=== PATIENT | male | born 1950 | race Caucasian/White ===

== ENCOUNTER 2020-10-04 08:43 | Outpatient (CLI) | payer MEDICARE, SELFPAY ==
--- NOTE | ~2020-10-04 | MR_ITS ---
EXAMINATION: MR pelvis wo/w con DATE: 10/04/2020 10:49 INDICATION: Dorsalgia, unspecified. TECHNIQUE: Magnetic resonance imaging (MRI) of the pelvis was performed without and with 17 mL MultiH ance intravenous contrast. Sequences included sagittal PD-weighted FS FSE and T1-weighted FSE, stallings l oblique T2-weighted FS FSE, T2-weighted FSE, T1-weighted FSE, axial oblique T1-weighted FSE and T1- weighted FS FSE and T2-weighted FS FSE, and postcontrast axial oblique and sagittal T1-weighted FS FS E. COMPARISON: Lumbar spine radiographs 03/02/2018 FINDINGS: Bone alignment is normal. There is expansion of S2 segment with fatty marrow, likely benign. There is diffuse fatty replacement of the bone marrow. There is severe lumbar spondylosis. There is mild oste oarthritis of the sacroiliac joints characterized by tiny marginal osteophytes. The prostate is mildl y enlarged. IMPRESSION: 1. Mild osteoarthritis of the sacroiliac joints. No evidence of inflammatory arthropathy. 2. Severe lumbar spondylosis. Reviewed, dictated and finalized at location A. IMPRESSION: 1. Mild osteoarthritis of the sacroiliac joints. No evidence of inflammatory ar thropathy. 2. Severe lumbar spondylosis.
--- NOTE | ~2020-10-04 | MR_ITS ---
EXAMINATION: MR lumbar spine wo con DATE: 10/04/2020 10:13 INDICATION: Dorsalgia, unspecified. TECHNIQUE: Magnetic resonance imaging (MRI) of the lumbar spine was performed without intravenous con trast. Sequences included sagittal T2-weighted FSE, sagittal T2-weighted FS FSE, sagittal T1-weighted FSE, and axial T2-weighted FSE. COMPARISON: Lumbar spine radiographs 03/02/2018 FINDINGS: There is 15 degrees dextroscoliosis of thoracolumbar spine. There is mild chronic anterior wedging of T12 and L1 vertebral bodies. There is mildly decreased disc height at L3-L4 and severely d ecreased disc height at L4-L5 with endplate remodeling. The distal spinal cord signal intensity is no rmal. The conus medullaris is at L1. The following disc levels are specifically discussed: L1-L2: The disc is bulging and has an annular fissure. There is severe right and moderate left facet joint osteoarthritis. There is mild bilateral neural foraminal stenosis. There is mild central canal stenosis. L2-L3: There is a left foraminal protrusion. There is severe bilateral facet joint osteoarthritis. Th ere is mild left neural foraminal stenosis. There is no central canal stenosis. L3-L4: The disc is bulging. There is severe bilateral facet joint osteoarthritis. There is mild right and moderate left neural foraminal stenosis. There is mild central canal stenosis. L4-L5: The disc is bulging. There is severe bilateral facet joint osteoarthritis. There is moderate r ight and mild left neural foraminal stenosis. There is mild central canal stenosis. L5-S1: The disc is bulging with superimposed right subarticular zone extrusion. There is severe bilat eral facet joint osteoarthritis. There is moderate right and mild left neural foraminal stenosis. The re is mild central canal stenosis. IMPRESSION: 1. Severe lumbar spondylosis. 2. Thoracolumbar dextroscoliosis. Reviewed, dictated and finalized at location A.
== END 2020-10-04 08:44 | disposition home or self-care (01) ==
PROVIDERS: PCP Internal Medicine; Visit Provider Internal Medicine
DX: G89.29 Other chronic pain (principal); M54.9 Dorsalgia, unspecified; M25.559 Pain in unspecified hip; M47.898 Other spondylosis, sacral and sacrococcygeal region; M47.816 Spondylosis without myelopathy or radiculopathy, lumbar region; M41.85 Other forms of scoliosis, thoracolumbar region
CPT/HCPCS: 72148; 72197; A9577

== ENCOUNTER 2021-01-18 11:20 | Outpatient (CLI) | payer MEDICARE, SELFPAY ==
--- NOTE | ~2021-01-18 | XR_ITS ---
EXAMINATION: XR chest 2V DATE: 01/18/2021 11:37 INDICATION: Personal history of recurrent pneumonia. TECHNIQUE: Frontal and lateral views of the chest were obtained. COMPARISON: Chest 2 views 11/14/2018 FINDINGS: The lung volumes are normal. There are reticular opacities in the mid and lower lung zones with a basilar predominance, consistent with chronic interstitial lung disease. No pleural effusion o r pneumothorax. The heart size is normal. IMPRESSION: 1. Mildly worsened chronic interstitial lung disease. Reviewed, dictated and finalized at location A.
[2021-01-18 11:59] LABS: Hematocrit 38.7 % (42.0-52.0); Hemoglobin 13.3 g/dL (14.0-18.0); Immature Granulocyte Absolute 0.03 K/mm3 (0.00-0.031); Immature Granulocyte Percent A 0.4 % (0-0.5); Lymphocytes Absolute Auto 0.76 K/mm3 (0.9-3.2); Lymphocytes Percent Auto 11.2 % (18.3-44.2); Mean Corpuscular HGB Conc 34.4 g/dl (32-36); Mean Platelet Volume 8.2 fl (7.4-10.4); Monocytes Absolute Auto 0.9 K/mm3 (0.1-0.6); Monocytes Percent Auto 12.8 % (2.6-8.5); Neutrophils Absolute Auto 5.2 K/mm3 (1.3-6.7); Neutrophils Percent Auto 75.6 % (45.5-73.1); Platelet Count Result 266 k/mm3 (150-375); Red Blood Count 4.16 M/mm3 (4.6-6.20); Red Cell Distribution Width 11.8 % (11.5-14.5); White Blood Count 6.8 K/mm3 (4.5-10.0)
[2021-01-18 12:39] LABS: Influenza Control Positive
== END 2021-01-18 11:21 | disposition home or self-care (01) ==
PROVIDERS: PCP Internal Medicine; Visit Provider Internal Medicine
DX: R05.9 Cough, unspecified (principal); R69 Illness, unspecified; Z87.01 Personal history of pneumonia (recurrent); J84.9 Interstitial pulmonary disease, unspecified
CPT/HCPCS: 71046; 85025; 87804

== ENCOUNTER 2021-01-22 11:21 | Outpatient (CLI) | payer MEDICARE, SELFPAY ==
--- NOTE | ~2021-01-22 | XR_ITS ---
EXAMINATION: XR chest 2V DATE: 01/22/2021 11:41 INDICATION: Personal history of recurrent pneumonia TECHNIQUE: PA and lateral views of the chest are obtained. COMPARISON: 01/18/2021 FINDINGS: The lungs are free of acute opacities. Again noted are chronic reticular opacities in the m id and lower lung zones, consistent with chronic interstitial lung disease. There is no pleural effus ion or pneumothorax. The cardiomediastinal silhouette is normal. There is moderate thoracic spondylos is. IMPRESSION: 1. No acute cardiopulmonary abnormality. Reviewed, dictated and finalized at location A.
== END 2021-01-22 11:22 | disposition home or self-care (01) ==
LOC: ANHIMG 11:23
PROVIDERS: PCP Internal Medicine; Visit Provider Internal Medicine
DX: R05.9 Cough, unspecified (principal); Z87.01 Personal history of pneumonia (recurrent)
CPT/HCPCS: 71046

== ENCOUNTER 2021-03-04 12:11 | Outpatient (CLI) | payer MEDICARE, SELFPAY ==
--- NOTE | 2021-03-05 09:02 | P.PCNPFT_ITS ---
PFT Procedure Performed PFT Procedure Performed Spirometry with Pre/Post Bronchodilator Plethysmography (Lung Vol) Diffusing Cap (DLCO) Flow Vol Loop PFT Interpretation Lung volumes were measured with the body plethysmography method. Lung volumes are unremarkable. Spirometry showed diminished expiratory flow rates and a diminished FEV1 to FVC ratio of 52%, indicative of obstructive airway disease. Following administration of a bronchodilator, there was significant increase in expiratory flow rates. Lung diffusion capacity is moderately reduced at 55% predicted. The flow volume loop is consistent with obstructive airway disease. Impression: Moderate obstructive airway disease with significant response to br onchodilators on this testing. Moderately reduced lung diffusion capacity.
== END 2021-03-04 12:12 | disposition home or self-care (01) ==
PROVIDERS: PCP Internal Medicine; Visit Provider Internal Medicine
DX: R05.9 Cough, unspecified (principal); R06.02 Shortness of breath
CPT/HCPCS: 94060; 94726; 94729

== ENCOUNTER 2021-06-27 08:40 | Outpatient (CLI) | payer MEDICARE, SELFPAY ==
--- NOTE | ~2021-06-27 | CT_ITS ---
EXAMINATION: CT abdomen pelvis w con DATE: 06/27/2021 09:12 INDICATION: Left lower quadrant abdominal pain TECHNIQUE: Computed tomography (CT) of the abdomen and pelvis was performed with 100 CC Omnipaque 350 intravenous contrast. Automated exposure control and iterative reconstruction technique were employe d. Exam dose: 441.72 mGy-cm total exam DLP. COMPARISON: None. FINDINGS: There is preferentially peripheral septal soft tissue thickening in the included lower lung zones, possibly due to usual interstitial pneumonia interstitial fibrosis. No consolidation or mass density is detected in the lower lung zones. Heart size is within upper limits of normal. No pericard ial or pleural effusion. The liver, gallbladder, bile ducts, spleen, pancreas, pancreatic duct, and adrenal glands and kidneys are unremarkable. Normal caliber of the abdominal aorta. No intraperitoneal or retroperitoneal or pelvic mass lesion or adenopathy or ascites. There is diverticulosis of the sigmoid and distal descending colon with mild pericolic fat stranding along the distal descending and sigmoid colon. There is mild thickening of the lateroconal fascia. Co nsider colitis or mild diverticulitis. No abscess or intraperitoneal free air is detected. The prostate is enlarged, calcification, with moderate diffuse thickening of the urinary bladder wall . No suspicious osteolytic or osteoblastic lesions are noted. IMPRESSION: Diverticulosis of distal descending and sigmoid colon with mild pericolic fat stranding and thickening of lateroconal fascia in the left lower quadrant. Consider colitis, diverticulitis; no abscess or free air Prostate enlargement and calcifications Reviewed, dictated and finalized at Location A. Reviewed, dictated and finalized at location A. IMPRESSION: Diverticulosis of distal descending and sigmoid colon with mild pe ricolic fat stranding and thickening of lateroconal fascia in the left lower qu adrant. Consider colitis, diverticulitis; no abscess or free air Prostate enlargement and calcifications
[2021-06-27 09:08] LABS: Estimated Glomerular Filt Rate > 60
[2021-06-27 09:48] LABS: Hematocrit 34.8 % (42.0-52.0); Hemoglobin 11.8 g/dL (14.0-18.0); Immature Granulocyte Absolute 0.06 K/mm3 (0.00-0.031); Immature Granulocyte Percent A 0.9 % (0-0.5); Lymphocytes Absolute Auto 1.05 K/mm3 (0.9-3.2); Lymphocytes Percent Auto 16.4 % (18.3-44.2); Mean Corpuscular HGB Conc 33.9 g/dl (32-36); Mean Corpuscular Hemoglobin 31.3 pg (26-34); Mean Corpuscular Volume 92.3 fl (80-100); Mean Platelet Volume 8.1 fl (7.4-10.4); Monocytes Absolute Auto 0.8 K/mm3 (0.1-0.6); Neutrophils Absolute Auto 4.5 K/mm3 (1.3-6.7); Neutrophils Percent Auto 70.7 % (45.5-73.1); Platelet Count Result 291 k/mm3 (150-375); Red Blood Count 3.77 M/mm3 (4.6-6.20); Red Cell Distribution Width 11.7 % (11.5-14.5); White Blood Count 6.4 K/mm3 (4.5-10.0)
[2021-06-27 09:57] LABS: Anion Gap 3 mmol/L (8-16); Blood Urea Nitrogen 15 mg/dL (9-20); Calcium 8.2 mg/dL (8.4-10.2); Carbon Dioxide 29 mmol/L (22-30); Chloride 93 mmol/L (98-107); Estimated Glomerular Filt Rate > 60; Glucose 95 mg/dL (65-110); Sodium 125 mmol/L (137-145)
== END 2021-06-27 08:41 | disposition home or self-care (01) ==
LOC: ANHIMG 08:43
PROVIDERS: PCP Internal Medicine; Visit Provider Internal Medicine
DX: R10.32 Left lower quadrant pain (principal); R19.7 Diarrhea, unspecified; K57.30 Diverticulosis of large intestine without perforation or abscess without bleeding; N40.0 Benign prostatic hyperplasia without lower urinary tract symptoms
CPT/HCPCS: 74177; 80048; 85025; Q9967

== ENCOUNTER 2021-07-09 10:05 | Outpatient (CLI) | payer MEDICARE, SELFPAY ==
[2021-07-09 11:09] LABS: Anion Gap 4 mmol/L (8-16); Blood Urea Nitrogen 9 mg/dL (9-20); Calcium 8.5 mg/dL (8.4-10.2); Carbon Dioxide 28 mmol/L (22-30); Chloride 96 mmol/L (98-107); Estimated Glomerular Filt Rate > 60; Glucose 95 mg/dL (65-110); Potassium 4.3 mmol/L (3.4-5.0); Sodium 128 mmol/L (137-145)
== END 2021-07-09 10:06 | disposition home or self-care (01) ==
PROVIDERS: PCP Internal Medicine; Visit Provider Internal Medicine
DX: E87.1 Hypo-osmolality and hyponatremia (principal); Z79.899 Other long term (current) drug therapy
CPT/HCPCS: 36415; 80048

== ENCOUNTER 2021-07-10 10:37 | Outpatient (CLI) | payer MEDICARE, SELFPAY ==
[2021-07-10 11:10] LABS: Potassium Urine Random 39.8 meq/L; Sodium Urine Random 33 meq/L
[2021-07-13 07:36] LABS: Osmolality, Urine 311 mOsm/kg (50-1200)
[2021-07-13 16:08] LABS: Arsenic, Blood <3 mcg/L (<23); Lead, Blood 1.7 mcg/dL (<3.5); Mercury, Blood 10 mcg/L (<=10)
[2021-07-15 06:56] LABS: Chloride Rand Ur 52 mmol/L (32-290); Chloride/Creatinine Rand Ur 78 (23-275); Creatinine Random Urine 67 mg/dL (20-320)
[2021-07-22 15:15] LABS: Collection Sample Blood
== END 2021-07-10 10:38 | disposition home or self-care (01) ==
LOC: ANHLAB 10:37
PROVIDERS: PCP Internal Medicine; Visit Provider Internal Medicine
DX: E87.1 Hypo-osmolality and hyponatremia (principal); G60.9 Hereditary and idiopathic neuropathy, unspecified; Z79.899 Other long term (current) drug therapy; Z77.018 Contact with and (suspected) exposure to other hazardous metals
CPT/HCPCS: 36415; 82175; 82436; 82570; 83655; 83825; 83930; 83935; 84133; 84300

== ENCOUNTER 2021-07-22 11:05 | Outpatient (CLI) | payer MEDICARE, SELFPAY ==
--- NOTE | ~2021-07-22 | XR_ITS ---
EXAMINATION: XR chest 2V DATE: 07/22/2021 11:26 INDICATION: Other disorders of lung. TECHNIQUE: Frontal and lateral views of the chest were obtained. COMPARISON: Chest 2 views 01/22/2021, CT abdomen and pelvis 07/22/2021 FINDINGS: The lung volumes are normal. There are chronic reticular opacities in mid and lower lung zo k[place]al with a lower lung predominance. No pleural effusion or pneumothorax. The heart size is normal. IMPRESSION: 1. Stable chronic interstitial lung disease. Reviewed, dictated and finalized at location A.
--- NOTE | ~2021-07-22 | CT_ITS ---
EXAMINATION: CT abdomen pelvis w con DATE: 07/22/2021 11:38 INDICATION: Colon diverticulitis. Abdominal pain. TECHNIQUE: Computed tomography (CT) of the abdomen and pelvis was performed with 100 CC Omnipaque 350 intravenous contrast. Automated exposure control and iterative reconstruction technique were employe d. Exam dose: 496.53 mGy-cm total exam DLP. COMPARISON: 06/27/2021 CT abdomen pelvis FINDINGS: The usual interstitial pneumonia interstitial fibrosis is suggested in the included lower l homero zones. No consolidation is noted. No pleural effusion. Normal heart size. No pericardial or pleural effusion. The liver, gallbladder, bile ducts, spleen, pancreas, pancreatic duct, and adrenal glands and kidneys are unremarkable. The abdominal aorta. No intraperitoneal or retroperitoneal or pelvic mass lesion or adenopathy or asc ites. Nonspecific thickening of the wall of the stomach. Normal appendix. No bowel obstruction or intraperitoneal free air. There is thickening of the wall of the cecum and the descending and sigmoid colon with left pericolic stranding. There is no significant stenosis of the celiac or superior mesenteric and inferior mesent stacy arteries to suggest ischemic colitis. Consider infectious or inflammatory colitis. Diverticulosis of the left colon. No abscess is evident. Prostate enlargement. The urinary bladder is unremarkable. Small fat-containing umbilical hernia. Small fat-containing left inguinal hernia. There is an expansile lytic lesion of the upper body of the sacrum; consider MRI and bone scan for fu rther evaluation. At this age range, metastasis or multiple myeloma would be the foremost considerati ons. There are degenerative changes of the included lower thoracic spine and lumbar spine including modera tely severe degenerative disc disease at L4-5. IMPRESSION: Expansile lytic lesion of the upper body of the sacrum; metastasis and multiple myeloma w ould be the primary considerations in this age range. Consider l MRI and bone scan for further evalua tion Nonspecific thickening of the wall of the stomach, cecum and descending and sigmoid colon with left p ericolic stranding; consider infectious or inflammatory colitis Diverticulosis of left colon No evidence of abscess Reviewed, dictated and finalized at Location A. Reviewed, dictated and finalized at location A. IMPRESSION: Expansile lytic lesion of the upper body of the sacrum; metastasis and multiple myeloma would be the primary considerations in this age range. 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
== END 2021-07-22 11:06 | disposition home or self-care (01) ==
LOC: ANHIMG 11:06
PROVIDERS: PCP Internal Medicine; Visit Provider Internal Medicine
DX: E87.1 Hypo-osmolality and hyponatremia (principal); K57.92 Diverticulitis of intestine, part unspecified, without perforation or abscess without bleeding; J98.4 Other disorders of lung; J84.9 Interstitial pulmonary disease, unspecified; M89.9 Disorder of bone, unspecified; K57.90 Diverticulosis of intestine, part unspecified, without perforation or abscess without bleeding; R93.5 Abnormal findings on diagnostic imaging of other abdominal regions, including retroperitoneum
CPT/HCPCS: 71046; 74177; Q9967

== ENCOUNTER 2021-08-19 19:08 | Inpatient (IN) | payer MEDICARE, SELFPAY ==
[2021-08-19] VITALS (13 sets, daily range): BP systolic 98–122; BP diastolic 58–78; PULSE 83–94; RESP 14–18; TEMP 37.2–37.7; O2SAT 94–97; BMI 24.3
--- NOTE | ~2021-08-19 | CT_ITS ---
EXAMINATION: CT abdomen pelvis w con DATE: 08/19/2021 20:34 INDICATION: abd pain TECHNIQUE: Computed tomography (CT) of the abdomen and pelvis was performed with 75 mL Omnipaque 300 intravenous contrast. Automated exposure control and iterative reconstruction technique were employed . The dose-length product was 571.22 mGy-cm. COMPARISON: 07/22/2021 FINDINGS: Lower thorax: Senescent/fibrotic lower lung changes Liver: Normal. Biliary/Gallbladder: Gallbladder is normal. No bile duct dilation. Pancreas: No mass or duct dilation. Spleen: Normal. Adrenals:No mass. Kidneys: No mass, stone, or hydronephrosis. GI tract: No small or large bowel dilation. Appendix not visualized. Sigmoid diverticulosis without d iverticulitis. Water density wall thickening extending from the splenic flexure through the sigmoid c olon. Mesentery/Peritoneum: No ascites, mass, or free air. Retroperitoneum: No mass. Pelvis: Bladder wall thickening likely due to outlet obstruction from prostatomegaly. Question of silvia ateral scrotal varicoceles and right hydrocele. Soft Tissues: Small bilateral fat-containing inguinal hernias Bones: No acute osseous finding. Unchanged expansile and lytic sacral lesion centered at S2, MR gretchen acteristics in prior studies suggest benignity. IMPRESSION: Descending and sigmoid colitis, commonly attributed to infection noting that inflammatory bowel disea se and ischemia can appear similarly. Possible varicoceles or hydrocele, if there are scrotal symptom s consider ultrasound of the scrotum for further evaluation. Reviewed, dictated and finalized at location K. IMPRESSION: Descending and sigmoid colitis, commonly attributed to infection noting that in flammatory bowel disease and ischemia can appear similarly. Possible varicocele s or hydrocele, if there are scrotal symptoms consider ultrasound of the scrotu m for further evaluation.
--- NOTE | 2021-08-19 19:39 | ED.GENADULT ---
HPI - General Adult General Chief complaint: Nausea/Vomiting/Diarrhea Stated complaint: fever, nausea, headache Time Seen by Provider: 08/19/21 19:16 Source: patient Mode of arrival: ambulatory Limitations: no limitations History of Present Illness HPI narrative: Patient is a 71-year-old male complaining of fever, chills and nausea that started today. Patient states that he was having some lower abdominal discomfort, recently finished a course of antibiotics after being diagnosed with C. difficile. Prior to being diagnosed with C. difficile he was on oral Cipro and metronidazole due to diverticulitis. Patient states that he ate some sushi, tempura , prior to the above symptoms. Patient denies any chest pain, shortness of breath, cough, vomiting, or diarrhea. Related Data Home Medications Medication Instructions Recorded Confirmed fluticasone propionate 50 2 spray INTRANASAL BID g 08/21/20 07/29/21 mcg/actuation nasal spray,suspension ipratropium bromide 42 mcg (0.06 2 spray INTRANASAL QID 08/21/20 07/29/21 %) nasal spray pregabalin 150 mg capsule 450 mg PO DAILY cap 08/21/20 07/29/21 [place] NeuropathyCream TOPICAL .tid-qid PRN 06/21/21 07/29/21 azithromycin 500 mg tablet See Rx Instructions PO .COMPLEX 07/29/21 07/29/21 Allergies Allergy/AdvReac Type Severity Reaction Status Date / Time No Known Allergies Allergy Verified 08/19/21 19:34 Review of Systems Review of Systems: All systems reviewed & are unremarkable except as noted in HPI and below Constitutional: Constitutional: Denies body ache(s), Denies excessive sweating, Denies fatigue, Denies headache(s), Denies lethargy, Denies malaise, Denies weakness and Denies weight loss Eyes: Eyes: Denies blurry vision, Denies change in vision and Denies loss of vision ENT: Denies dizziness, Denies ear discharge, Denies headache(s), Denies lip swelling, Denies epistaxis, Denies nasal congestion, Denies neck pain, Denies throat swelling and Denies tongue swelling Cardiovascular: Cardiovascular: Denies chest pain, Denies chest pain at rest, Denies chest pain with activity, Denies diaphoresis, Denies rapid heart rate, Denies edema, Denies irregular heart rhythm, Denies lightheadedness, Denies palpitations, Denies dyspnea and Denies dyspnea on exertion Respiratory: Respiratory: Denies chest congestion, Denies cough, Denies hemoptysis, Denies dyspnea and Denies dyspnea on exertion Gastrointestinal: Gastrointestinal: Denies melena, Denies hematochezia, Denies diarrhea, Denies nausea, Denies vomiting and Denies hematemesis Musculoskeletal: Musculoskeletal: Denies abnormal gait, Denies deformity, Denies joint swelling, Denies limited range of motion, Denies neck pain and Denies numbness Neurologic: Denies Abnormal speech present, Denies abnormal gait, Denies confusion, Denies dizziness, Denies headache(s), Denies focal weakness, Denies loss of vision, Denies numbness, Denies Other visual disturbances, Denies Sensory deficit (Neuro) and Denies weakness Psychiatric: Psychiatric: Denies confusion, Denies depression, Denies auditory hallucinations, Denies homicidal ideation and Denies suicidal ideation Endocrine: Endocrine: Denies cold intolerance, Denies excessive sweating, Denies fatigue, Denies heat intolerance and Denies palpitations Hematologic/Lymphatic: Hematologic/Lymphatic: Denies easy bleeding and Denies easy bruising Allergic/Immunologic: Allergic/Immunologic: Denies lip swelling, Denies throat swelling and Denies tongue swelling [facility] Past Medical History Medical History (Updated 08/19/21 @ 21:36 by Mikhail Hess MD) Angular cheilitis BMI 24.0-24.9, adult BMI 25.0-25.9,adult BMI 26.0-26.9,adult Chronic back pain Chronic lung disease Colon cancer screening Cough Dextroscoliosis Diverticulitis Elevated LDL cholesterol level Encounter for Medicare annual wellness exam Encounter to establish care Exposure to heavy metals Follow up GERD (gastroesophageal
[2021-08-19] MEDS: SODIUM CHLORIDE 0.9% IV 1,000 ML 999 ML IV CONT (19:57)
[2021-08-19] MEDS: ACETAMINOPHEN 325 MG TABLET 650 MG PO (19:58)
[2021-08-19 20:04] LABS: Hematocrit 36.3 % (42.0-52.0); Hemoglobin 12.1 g/dL (14.0-18.0); Mean Corpuscular HGB Conc 33.3 g/dl (32-36); Mean Corpuscular Volume 90.1 fl (80-100); Platelet Count Result 256 k/mm3 (150-375); Red Blood Count 4.03 M/mm3 (4.6-6.20); Red Cell Distribution Width 12.8 % (11.5-14.5); White Blood Count 22.2 K/mm3 (4.5-10.0)
[2021-08-19 20:05] LABS: Add Urine Microscopic? YES; Appearance Urine Clear (Clear); Bilirubin Urine Negative (Negative); Blood Urine Negative (Negative); Color Urine Yellow (Yellow); Glucose Urine UA Negative (Negative); Ketones Urine Trace mg/dL (Negative); Leukocyte Esterase Ur Negative LEU/UL (Negative); Nitrate Urine Negative (Negative); Protein Urine Negative (Negative); Specific Grav Ur 1.015 (1.001-1.035); Urobilinogen Urine 0.2 mg/dL (<2.0); pH Urine 6.5 (5.0-9.0)
[2021-08-19 20:07] LABS: Mucus Urine Rare /lpf; RBC Urine 0-2 /hpf (0-2); WBC Urine 0-3 /hpf
[2021-08-19 20:13] LABS: Lactic Acid Reflex 0.6 mmol/L (0.7-2.0)
[2021-08-19 20:14] LABS: Alanine Aminotransferase 42 U/L (6-50); Albumin Level 3.5 g/dL (3.5-5.1); Alkaline Phosphatase 83 U/L (38-126); Anion Gap 6 mmol/L (8-16); Aspartate Amino Transferase 41 U/L (17-59); Bilirubin,Total 1.5 mg/dL (0.2-1.3); Blood Urea Nitrogen 15 mg/dL (9-20); Calcium 8.2 mg/dL (8.4-10.2); Carbon Dioxide 23 mmol/L (22-30); Chloride 96 mmol/L (98-107); Estimated CRCL calculation 93 ml/min; Estimated Glomerular Filt Rate > 60; Glucose 106 mg/dL (65-110); Potassium 4.1 mmol/L (3.4-5.0); Sodium 125 mmol/L (137-145)
--- NOTE | 2021-08-19 20:22 | PC.NURSE ---
Pt to CT via stretcher at this time.
[2021-08-19 20:28] LABS: Band Neutrophils Percent 6 % (0-6); Lymphocytes Absolute Manual 0.44 K/mm3 (1.1-4.5); Monocytes Absolute Manual 1.77 K/mm3 (0.1-0.90); Monocytes Percent Manual 8 % (3-9); Neutrophils Absolute Manual 19.98 K/mm3 (1.3-6.7); Neutrophils Percent Manual 84 % (46-73); Platelet Estimate Adequate (Adequate); Total Cells Counted 100
--- NOTE | 2021-08-19 21:38 | PM.IMHP ---
H&P: HPI History of Present Illness Date/Time: 08/19/21 21:38 Chief Complaint: Abdominal pain. Narrative: This is a 71-year-old male past medical history significant for gastroesophageal reflux disease, restless leg syndrome, COPD, peripheral neuropathy. Patient just treated in the outpatient setting for diverticulitis and C difficile colitis completed 2 courses of antibiotics patient just returned from vacationing in [place] and started feeling unwell since the day before having some abdominal discomfort and pain and chills prior to coming to the emergency room patient had a fever, patient denies any diarrhea, any bloody stools or flank in the stools, no nausea, no vomiting, pain is localized to the lower abdomen nonradiating. In emergency room patient was found to have a leukocyte count of 22,000 CT of abdomen and pelvis showed descending and sigmoid colitis. Patient has been admitted for further evaluation, management and treatment. Review of Systems Review of Systems: Abdominal pain, fever. Constitutional: Constitutional: Reports chills, Denies fatigue, Reports fever(s), Denies night sweats and Denies poor appetite Eyes: Eyes: Denies change in vision ENT: Denies dysphagia, Denies vertigo, Denies nasal congestion, Denies nasal discharge, Denies nasal obstruction and Denies odynophagia Cardiovascular: Cardiovascular: Denies chest pain, Denies pedal edema, Denies irregular heart rhythm, Denies claudication, Denies lightheadedness, Denies radiating jaw, neck or arm pain, Denies palpitations and Denies dyspnea on exertion Respiratory: Respiratory: Denies chest congestion, Denies cough, Denies excessive phlegm production and Denies dyspnea Gastrointestinal: Gastrointestinal: Reports abdominal pain, Denies dyspepsia, Denies heartburn, Denies diarrhea, Denies nausea and Denies vomiting Genitourinary: Genitourinary: Denies dysuria Musculoskeletal: Musculoskeletal: Denies arthralgias and Denies joint swelling Integumentary/Breasts: Skin/Breast: Denies rash Neurologic: Denies focal weakness and Denies Sensory deficit (Neuro) Psychiatric: Psychiatric: Reports no additional psychiatric complaints and Reports as per HPI Endocrine: Endocrine: Denies cold intolerance, Denies flushing, Denies heat intolerance, Denies polyphagia, Denies polydipsia and Denies palpitations Hematologic/Lymphatic: Hematologic/Lymphatic: Reports no additional hematologic/lymphatic complaints and Reports as per HPI Allergic/Immunologic: Allergic/Immunologic: Reports no additional allergic/immunologic complaints and Reports as per HPI [facility] Past Medical History Medical History (Updated 08/21/21 @ 05:27 by Lavinia Palencia MD) Angular cheilitis BMI 24.0-24.9, adult BMI 25.0-25.9,adult BMI 26.0-26.9,adult Chronic back pain Chronic lung disease Colon cancer screening Cough Dextroscoliosis Diverticulitis Elevated LDL cholesterol level Encounter for Medicare annual wellness exam Encounter to establish care Exposure to heavy metals Follow up GERD (gastroesophageal reflux disease) Heart murmur Herpes History of elevated PSA History of pneumonia Hyponatremia Impacted cerumen of left ear Lumbar spondylosis Nausea On usp drug therapy Restless legs syndrome Ruptured intervertebral disc SOB (shortness of breath) on exertion Thumb pain Viral wart on right thumb Family History Family History Father Family history of chronic obstructive pulmonary disease Mother Family history of chronic obstructive pulmonary disease Social History Social History Smoking status: Never smoker Second hand tobacco smoke exposure: No Alcohol intake: current Drinks per week: 21 Substance use: current Substance use type: marijuana Spiritual care concerns: No (Evangelical, not currently practicing) Meds Home Medications and Allergies Home
[2021-08-19] MEDS: metroNIDAZOLE 500 MG/ISO 100ML 500 MG/100 ML BAG 100 MG IVPB (22:22)
--- NOTE | 2021-08-19 22:32 | PC.NURSE ---
Attempted to give report to 3rd med/surg at this time. Receiving RN is in a pt room and will call back when available.
--- NOTE | 2021-08-19 23:17 | ADMGEN ---
This patient, Douglas Horn, was admitted to [facility] Surg Room 322-01. Patient/family oriented to hospital policies and general routines including ID bracelet, bed and alarms, visiting hours, pain management, procedures, bathroom and other care routines, personal items, smoking policy, room service/diet, and visiting hours. Information on how to activate the Rapid Response Team has been discussed. Patient/Family are encouraged to report perceived risks to care and to ask questions if they do not understand what they are told or what they should do.
[2021-08-20] MEDS: SODIUM CHLORIDE 0.9% IV 1,000 ML 75 ML IV CONT ×2 (00:51→16:52)
[2021-08-20] MEDS: PREGABALIN (*CRX) 75 MG CAPSULE 300 MG PO ×3 (01:33→19:57)
[2021-08-20 06:00] VITALS: BP 97/64; PULSE 80; RESP 18; TEMP 36.9; O2SAT 98
[2021-08-20] MEDS: metroNIDAZOLE 500 MG/ISO 100ML 500 MG/100 ML BAG 100 MG IVPB ×3 (06:11→22:14)
[2021-08-20 08:00] VITALS: PULSE 80; RESP 18; O2SAT 96
[2021-08-20] MEDS: IPRATROPIUM NASAL SPRAY 0.06% 15 ML BOTTLE 2 SPRAY NASAL ×2 (08:54→19:59)
[2021-08-20] MEDS: FLUTICASONE PROPIONATE 0.05% NA SPR 16 GM BTL (*BKC) 2 SPRAY NASAL ×2 (08:54→19:58)
[2021-08-20] MEDS: valACYclovir HCL 500 MG TABLET BY MOUTH (08:54)
--- NOTE | 2021-08-20 10:05 | PM.IMPN ---
Progress Note: A&P Assessment and Plan (1) Acute colitis: Code(s): K52.9 - Noninfective gastroenteritis and colitis, unspecified Status: Acute Assessment and Plan: Monitor vital signs, I&Os, track stool output, watch for bloody stools, neuro status and patient is a fall risk Monitor serum electrolytes and CBC Gentle IV fluid resuscitation Continue Rocephin and Flagyl 500 mg t.i.d. GI has been consulted, appreciate assistance and recommendations Diet:NPO Patient has a history of diverticulitis, without perforation. He has been on antibiotics x3 courses within the past several months. He has continued to have persistent issues. He follows with GI on outpatient setting who recommended a colonoscopy in the near future. (2) Leukocytosis: Qualifiers: Leukocytosis type: unspecified Qualified Code(s): D72.829 - Elevated white blood cell count, unspecified Code(s): D72.829 - Elevated white blood cell count, unspecified Status: Acute Assessment and Plan: 2/2 above (3) Fever: Qualifiers: Fever type: unspecified Qualified Code(s): R50.9 - Fever, unspecified Code(s): R50.9 - Fever, unspecified Status: Acute Assessment and Plan: 2/to above (4) GERD (gastroesophageal reflux disease): Code(s): K21.9 - Gastro-esophageal reflux disease without esophagitis Status: Acute Assessment and Plan: Continue home medications (5) LLQ abdominal pain: Code(s): R10.32 - Left lower quadrant pain Status: Acute Assessment and Plan: Two/to above (6) Alcohol abuse: Code(s): F10.10 - Alcohol abuse, uncomplicated Status: Acute Assessment and Plan: Monitor for signs and symptoms of withdrawal May need to initiate CIWA protocol (7) Acute hyponatremia: Code(s): E87.1 - Hypo-osmolality and hyponatremia Status: Acute Assessment and Plan: Patient's sodium is 125, suspect this is from his alcohol consumption. Continue to monitor serum electrolytes. No current neuro deficits. Subjective Date/time seen: 08/20/21 10:05 Interval history: Patient is doing well this morning. He is sitting up in the bed receiving IV fluids as he is NPO. Patient continues to complain of lower abdominal pain left greater than right. He reports that he has been treated multiple times for diverticulitis and has been on 3 rounds of antibiotics in outpatient setting. Patient was admitted last night due to significant infection revealed on CT of the abdomen and pelvis. He will continue Rocephin and Flagyl and GI was consulted for follow-up care. Patient reports his last colonoscopy was several years ago and new intervention was required. He denies any acute nausea vomiting upset stomach or diarrhea. He denies any constipation. Patient does endorse and alcohol drinking, he drinks approximately 2.5 glasses of wine a night, he experienced alcohol withdrawal. His sodium is 125 I suspect this is the reason. Will continue to monitor the patient's clinical status and serum electrolytes. Review of Systems Review of Systems: All systems reviewed & are unremarkable except as noted in HPI and below Exam Narrative: General: No acute distress. Mental Status: Awake, alert and oriented to person, place, and time with clear speech. Skin: Skin in warm, dry and intact without rashes or lesions. Head: Normocephalic and atraumatic. Eyes: Conjunctivae are clear without exudates or hemorrhage. Sclera is non-icteric. EOM are intact, PERRLA. Ears: The external ear and canal are non-tender and without swelling or discharge. Nose: Nasal mucosa is pink and moist. Septum midline. Nares patent bilaterally. Throat: Oral mucosa pink and moist with good dentition. Tongue midline. Neck: The neck supple without adenopathy. Trachea midline. No JVD. Cardiac: S1 and S2 regular rate and rhythm. No murmurs, gallops, or rubs auscultated. Respiratory: Bridgett
--- NOTE | 2021-08-20 13:15 | WPDGICN ---
Assessment and Plan Assessment and plan (1) Acute colitis: Code(s): K52.9 - Noninfective gastroenteritis and colitis, unspecified Status: Acute Assessment and Plan: he is admitted with colitis, denies any more diarrhea and he completed treatment for C diff recurrent lower abdominal pain and previously also treated for possible diverticulitis. will assess with colonoscopy to check left colon, ? colitis, pseudomembranes, diverticulitis, ischemia (normal lactic) (2) Leukocytosis: Qualifiers: Leukocytosis type: unspecified Qualified Code(s): D72.829 - Elevated white blood cell count, unspecified Code(s): D72.829 - Elevated white blood cell count, unspecified Status: Acute Assessment and Plan: on antibiotics cultures pending (3) Fever: Qualifiers: Fever type: unspecified Qualified Code(s): R50.9 - Fever, unspecified Code(s): R50.9 - Fever, unspecified Status: Acute (4) Acute hyponatremia: Code(s): E87.1 - Hypo-osmolality and hyponatremia Status: Acute Assessment and Plan: on medical treatment (5) Nausea: Code(s): R11.0 - Nausea Status: Acute Assessment and Plan: better (6) Diverticulitis: Code(s): K57.92 - Diverticulitis of intestine, part unspecified, without perforation or abscess without bleeding Status: Acute Assessment and Plan: previous episode colonoscopy tomorrow GI Consult Note Consult date/time: 08/20/21 13:15 Reason for consult: colitis, abdominal pain HPI: Douglas Horn is a 71 year old male with history of interstitial lung disease,? mercury and lead poisoning who is known to our group when he came because of diarrhea earlier this month. He started with diarrhea and LLQ abdominal pain on April, had CT scan that revealed diverticulosis of the sigmoid and distal descending colon with mild pericolonic fat stranding along the distal descending and sigmoid colon. Consider colitis or mild diverticulitis and then treated with Cipro and flagyl with some improvement but then symptom returned and treated with augmentin without any relief, had repeat CT scan revealed nonspecific thickening of the wall of the stomach, cecum and descending and sigmoid colon with left pericolonic stranding. Finally he was diagnosed with C diff and treated with 10 days of vancomycin, he denies any more diarrhea but after completing treatment pain came back. Day before of admission he had fever with chills and nausea. His last colonoscopy was with Dr. Velasco in 2013, unremarkable exam. New CT scan reviewed and showed descending and sigmoid colitis, commonly attributed to infection noting that inflammatory bowel disease and ischemia can appear similarly. Blood work with leukocytosis and na 125, lactic acid normal. No diarrhea, he says that is having 3-4 soft stools with mucus, no blood. Feeling better, still some pain. Started on iv antibiotics. Review of Systems Constitutional: Constitutional: Denies headache(s) and Denies weakness Comments: fever Eyes: Eyes: Denies blurry vision ENT: Reports Normal hearing present, Denies headache(s) and Denies neck pain Cardiovascular: Cardiovascular: Denies chest pain and Denies dyspnea Respiratory: Respiratory: Denies dyspnea Gastrointestinal: Gastrointestinal: Reports no additional gastrointestinal complaints Genitourinary: Genitourinary: Denies dysuria Musculoskeletal: Musculoskeletal: Denies neck pain Integumentary/Breasts: Skin/Breast: Denies dry skin Neurologic: Reports Normal hearing present, Denies headache(s) and Denies weakness Psychiatric: Psychiatric: Denies anxiety Endocrine: Endocrine: Denies change in body appearance Hematologic/Lymphatic: Hematologic/Lymphatic: Denies easy bleeding Allergic/Immunologic: Allergic/Immunologic: Denies urticaria PMFSH Past Medical History Medical History (Updated 08/19/21 @ 21:36 by Nahid Mcguire
[2021-08-20 14:34] VITALS: BP 104/61; PULSE 80; RESP 18; TEMP 37.6; O2SAT 96
[2021-08-20] MEDS: HYDROCORTISONE 1% 30 GM CREAM 1 APPLIC TOPICAL (16:34)
[2021-08-20] MEDS: BISACODYL 5 MG TABLET EC 20 MG PO (18:44)
[2021-08-20] MEDS: PEG (High)/E-LYTE SOLN 4,000 ML BTL 4000 ML PO (18:44)
[2021-08-20] MEDS: rOPINIRole HCL 1 MG TABLET 2 MG BY MOUTH (20:58)
[2021-08-20 21:41] VITALS: BP 114/65; PULSE 84; RESP 18; TEMP 36.9; O2SAT 97; O2SAT 98
[2021-08-21] VITALS (11 sets, daily range): BP systolic 77–125; BP diastolic 45–75; PULSE 60–82; RESP 17–20; TEMP 36.2–37.1; O2SAT 96–100
[2021-08-21] MEDS: MAGNESIUM CITRATE 300 ML BTL PO (03:07)
[2021-08-21 06:15] LABS: Basophils Percent Auto 0.1 % (0.2-1.2); Hematocrit 37.6 % (42.0-52.0); Hemoglobin 11.8 g/dL (14.0-18.0); Immature Granulocyte Absolute 0.06 K/mm3 (0.00-0.031); Immature Granulocyte Percent A 0.5 % (0-0.5); Lymphocytes Absolute Auto 1.42 K/mm3 (0.9-3.2); Lymphocytes Percent Auto 11.1 % (18.3-44.2); Mean Corpuscular HGB Conc 31.4 g/dl (32-36); Mean Corpuscular Hemoglobin 29.6 pg (26-34); Mean Corpuscular Volume 94.2 fl (80-100); Mean Platelet Volume 8.7 fl (7.4-10.4); Monocytes Absolute Auto 1.2 K/mm3 (0.1-0.6); Monocytes Percent Auto 9.6 % (2.6-8.5); Neutrophils Absolute Auto 10.1 K/mm3 (1.3-6.7); Neutrophils Percent Auto 78.7 % (45.5-73.1); Platelet Count Result 256 k/mm3 (150-375); Red Blood Count 3.99 M/mm3 (4.6-6.20); White Blood Count 12.8 K/mm3 (4.5-10.0)
[2021-08-21 06:21] LABS: Anion Gap 4 mmol/L (8-16); Blood Urea Nitrogen 7 mg/dL (9-20); Calcium 8.3 mg/dL (8.4-10.2); Carbon Dioxide 28 mmol/L (22-30); Chloride 101 mmol/L (98-107); Estimated CRCL calculation 93 ml/min; Estimated Glomerular Filt Rate > 60; Glucose 89 mg/dL (65-110); Potassium 3.5 mmol/L (3.4-5.0); Sodium 133 mmol/L (137-145)
[2021-08-21] MEDS: SODIUM CHLORIDE 0.9% IV 1,000 ML 75 ML IV CONT (08:36)
--- NOTE | 2021-08-21 11:51 | P.PNIM_ITS ---
Progress Note: A&P Assessment and Plan (1) Acute colitis: Code(s): K52.9 - Noninfective gastroenteritis and colitis, unspecified <Terrie Arroyo, PA-C - Last Filed: 08/21/21 12:14> Status: Acute <Terrie Arroyo, PA-C - Last Filed: 08/21/21 12:14> Assessment and Plan: Presented with left lower quadrant pain. CT abdomen/pelvis showed descending and sigmoid colitis * Appreciate gastroenterology consultation * Continue Levaquin and Flagyl * Plan for colonoscopy today * Gentle IV fluids while NPO <Terrie Arroyo, PA-C - Last Filed: 08/21/21 12:14> (2) Leukocytosis: Qualifiers: Leukocytosis type: unspecified Qualified Code(s): D72.829 - Elevated white blood cell count, unspecified <Terrie Arroyo, PA-C - Last Filed: 08/21/21 12:14> Code(s): D72.829 - Elevated white blood cell count, unspecified <Terrie Arroyo, PA-C - Last Filed: 08/21/21 12:14> Status: Resolved <Terrie Arroyo, PA-C - Last Filed: 08/21/21 12:14> Assessment and Plan: Likely secondary to colitis * Marked improvement with antibiotics * Continue to monitor CBC <Terrie Arroyo, PA-C - Last Filed: 08/21/21 12:14> (3) GERD (gastroesophageal reflux disease): Code(s): K21.9 - Gastro-esophageal reflux disease without esophagitis <Terrie Arroyo, PA-C - Last Filed: 08/21/21 12:14> Status: Acute <Terrie Arroyo, PA-C - Last Filed: 08/21/21 12:14> Assessment and Plan: No acute issues * Begin Protonix <Terrie Arroyo, PA-C - Last Filed: 08/21/21 12:14> (4) Chronic back pain: Qualifiers: Back pain laterality: bilateral Back pain location: low back pain Sciatica laterality: sciatica of left side Sciatica presence: with sciatica Qualified Code(s): M54.42 - Lumbago with sciatica, left side; G89.29 - Other chronic pain <Terrie IselaSima Марияac, PA-C - Last Filed: 08/21/21 12:14> Code(s): M54.9 - Dorsalgia, unspecified; G89.29 - Other chronic pain <Terrie J. Марияac, PA-C - Last Filed: 08/21/21 12:14> Status: Acute <Terrie JSima Hsiehac, PA-C - Last Filed: 08/21/21 12:14> Assessment and Plan: Patient with history of chronic back pain established with neurosurgery. * Has procedure planned for 08/30/[address] Jayy Granger * Reports this will be delayed due to his hospitalization and requests discharge inforrmation be sent to Dr. Granger in order to proceed with rescheduling. <Terrie JSima Марияjulian, PA-C - Last Filed: 08/21/21 12:14> (5) Abnormal CT scan, pelvis: Code(s): R93.5 - Abnormal findings on diagnostic imaging of other abdominal regions, including retroperitoneum <Terrie JSima Марияac, PA-C - Last Filed: 08/21/21 12:14> Status: Acute <Terrie J. Stimac, PA-C - Last Filed: 08/21/21 12:14> Assessment and Plan: CT of the pelvis revealed incidental finding of possible varicocele vs hydrocele * Patient is asymptomatic. No further intervention required at this time * Educated patient that if he developed scrotal swelling or pain, showed follow- up promptly for scrotal ultrasound <Terrie Arroyo, PA-C - Last Filed: 08/21/21 12:14> Subjective Date/time seen: 08/21/21 11:51 <Terrie JSima Stimjulian, PA-C - Last Filed: 08/21/21 12:14> Interval history: Date of service: 08/21/2021 Douglas Horn is a 71-year-old male with a history of GERD, RLS, COPD, interstitial lung disease, peripheral neuropathy, recent C diff colitis for which he completed 10 days of antibiotic therapy. He is feeling ?much better? today. He state
--- NOTE | 2021-08-21 11:51 | PM.IMPN ---
Progress Note: A&P Assessment and Plan (1) Acute colitis: Code(s): K52.9 - Noninfective gastroenteritis and colitis, unspecified <Terrie Arroyo, PA-C - Last Filed: 08/21/21 12:14> Status: Acute <Terrieana luisa Arroyo, PA-C - Last Filed: 08/21/21 12:14> Assessment and Plan: Presented with left lower quadrant pain. CT abdomen/pelvis showed descending and sigmoid colitis Appreciate gastroenterology consultation Continue Levaquin and Flagyl Plan for colonoscopy today Gentle IV fluids while NPO <Terrie Arroyo, PA-C - Last Filed: 08/21/21 12:14> (2) Leukocytosis: Qualifiers: Leukocytosis type: unspecified Qualified Code(s): D72.829 - Elevated white blood cell count, unspecified <Terrie Arroyo, PA-C - Last Filed: 08/21/21 12:14> Code(s): D72.829 - Elevated white blood cell count, unspecified <Terrie Arroyo, PA-C - Last Filed: 08/21/21 12:14> Status: Resolved <Terrieana luisa Arroyo, PA-C - Last Filed: 08/21/21 12:14> Assessment and Plan: Likely secondary to colitis Marked improvement with antibiotics Continue to monitor CBC <Terrie Arroyo, PA-C - Last Filed: 08/21/21 12:14> (3) GERD (gastroesophageal reflux disease): Code(s): K21.9 - Gastro-esophageal reflux disease without esophagitis <Terrieana luisa Arroyo, PA-C - Last Filed: 08/21/21 12:14> Status: Acute <Terrieana luisa Arroyo, PA-C - Last Filed: 08/21/21 12:14> Assessment and Plan: No acute issues Begin Protonix <Terrieana luisa Arroyo, PA-C - Last Filed: 08/21/21 12:14> (4) Chronic back pain: Qualifiers: Back pain laterality: bilateral Back pain location: low back pain Sciatica laterality: sciatica of left side Sciatica presence: with sciatica Qualified Code(s): M54.42 - Lumbago with sciatica, left side; G89.29 - Other chronic pain <Terrieana luisa Arroyo, PA-C - Last Filed: 08/21/21 12:14> Code(s): M54.9 - Dorsalgia, unspecified; G89.29 - Other chronic pain <Terrieana luisa Arroyo, PA-C - Last Filed: 08/21/21 12:14> Status: Acute <Terrieana luisa Arroyo, PA-C - Last Filed: 08/21/21 12:14> Assessment and Plan: Patient with history of chronic back pain established with neurosurgery. Has procedure planned for 08/30/[address] Jayy Granger Reports this will be delayed due to his hospitalization and requests discharge inforrmation be sent to Dr. Granger in order to proceed with rescheduling. <Terrie Arroyo, PA-C - Last Filed: 08/21/21 12:14> (5) Abnormal CT scan, pelvis: Code(s): R93.5 - Abnormal findings on diagnostic imaging of other abdominal regions, including retroperitoneum <Terrie Arroyo, PA-C - Last Filed: 08/21/21 12:14> Status: Acute <Terrieana luisa Hsiehac, PA-C - Last Filed: 08/21/21 12:14> Assessment and Plan: CT of the pelvis revealed incidental finding of possible varicocele vs hydrocele Patient is asymptomatic. No further intervention required at this time Educated patient that if he developed scrotal swelling or pain, showed follow-up promptly for scrotal ultrasound <Terrie WeissSima Марияjulian, PA-C - Last Filed: 08/21/21 12:14> Subjective Date/time seen: 08/21/21 11:51 <Terrie Hsiehjulian, PA-C - Last Filed: 08/21/21 12:14> Interval history: Date of service: 08/21/2021 Douglas Horn is a 71-year-old male with a history of GERD, RLS, COPD, interstitial lung disease, peripheral neuropathy, recent C diff colitis for which he completed 10 days of antibiotic therapy. He is feeling ?much better? today. He states that his bottom is sore from having multiple stools since completing colonoscopy prep. He does endorse a mild left lower quadrant discomfort. He describes this as a tenderness it does not have any pain. He states if he pushes on his abdomen, he has some discomfort which he rates as 3-4/10. If he is not touch it. His pain is 0/10. He denies nausea
[2021-08-21] MEDS: LACTATED RINGERS 1,000 ML 150 ML IV CONT (12:18)
--- NOTE | 2021-08-21 12:38 | WPDANESEPPF ---
Anes - Initial Pre Proc Eval Procedure: Operation Date: 08/21/21 14:15 Proposed Procedures p Colonoscopy - Evens Alva MD Date/Time: 08/21/21 12:38 Surgeon: Terrie Arroyo PA-C Pre Op Diagnosis: Acute Colitis, Leukocytosis, Fever Patient Data Age: 71 Gender: M Height: 1.83 m Weight: 81.3 kg Last Vital Signs Temp 97.6 F 08/21/21 12:15 Pulse 66 08/21/21 12:15 Resp 18 08/21/21 12:15 BP 115/73 08/21/21 12:15 Pulse Ox 100 08/21/21 12:15 O2 Del Method Room Air 08/21/21 12:15 Allergies Allergy/AdvReac Type Severity Reaction Status Date / Time No Known Allergies Allergy Verified 08/19/21 19:34 Home Medications Medication Instructions Recorded Confirmed Type fluticasone propionate 50 2 spray intranasal BID 08/21/20 08/19/21 History mcg/actuation nasal spray,suspension ipratropium bromide 42 mcg (0.06 2 spray intranasal QID 08/21/20 08/19/21 History %) nasal spray pregabalin 150 mg capsule (Lyrica) 300 mg PO BID 08/21/20 08/19/21 History valacyclovir 500 mg tablet See Rx Instructions .Route 02/05/21 08/19/21 Rx .COMPLEX #90 tabs ropinirole 2 mg tablet See Rx Instructions .Route 03/13/21 08/19/21 Rx .COMPLEX #30 tabs dicyclomine 10 mg capsule 10 mg PO TID PRN abd cramps #30 07/22/21 08/19/21 Rx caps ondansetron 8 mg disintegrating 8 mg PO QID PRN nausea and 07/22/21 08/19/21 Rx tablet vomiting #30 tabs azithromycin 500 mg tablet See Rx Instructions PO .COMPLEX 07/29/21 08/19/21 History Laboratory Tests 08/21/21 08/21/21 05:50 05:50 WBC 12.8 K/mm3 H K/mm3 (4.5-10.0) RBC 3.99 M/mm3 L M/mm3 (4.6-6.20) Hgb 11.8 g/dL L g/dL (14.0-18.0) Hct 37.6 % L % (42.0-52.0) MCV 94.2 fl fl (80-100) MCH 29.6 pg pg (26-34) MCHC 31.4 g/dl L g/dl (32-36) RDW 13.0 % % (11.5-14.5) Plt Count 256 k/mm3 k/mm3 (150-375) MPV 8.7 fl fl (7.4-10.4) Immature Gran % (Auto) 0.5 % % (0-0.5) Neut % (Auto) 78.7 % H % (45.5-73.1) Lymph % (Auto) 11.1 % L % (18.3-44.2) [place] % (Auto) 9.6 % H % (2.6-8.5) Eos % (Auto) 0.0 % % (0-4.4) Baso % (Auto) 0.1 % L % (0.2-1.2) Lymph # (Auto) 1.42 K/mm3 K/mm3 (0.9-3.2) [place] # (Auto) 1.2 K/mm3 H K/mm3 (0.1-0.6) Eos # (Auto) 0.0 K/mm3 K/mm3 (0-0.3) Baso # (Auto) 0.0 K/mm3 K/mm3 (0.0-0.1) Abs Immat Gran (auto) 0.06 K/mm3 H K/mm3 (0.00-0.031) Absolute Neuts (auto) 10.1 K/mm3 H K/mm3 (1.3-6.7) Absolute Nucleated RBC 0.0 K/mm3 K/mm3 (0.0-0.012) Nucleated RBC % 0.0 % % (0.0-0.2) Sodium 133 mmol/L L mmol/L (137-145) Potassium 3.5 mmol/L mmol/L (3.4-5.0) Chloride 101 mmol/L mmol/L (98-107) Carbon Dioxide 28 mmol/L mmol/L (22-30) Anion Gap 4 mmol/L L mmol/L (8-16) BUN 7 mg/dL L D mg/dL (9-20) Creatinine 0.70 mg/dL mg/dL (0.7-1.3) Estim Creat Clear Calc 93 ml/min ml/min Estimated GFR > 60 (59 - ) Glucose 89 mg/dL mg/dL (65-110) Calcium 8.3 mg/dL L mg/dL (8.4-10.2) Patient hx anesthesia problems: none Family hx anesthesia problems: none Results Review: All pre-operative results and documents have been reviewed as part of the pre-operative evaluation. [facility] Past Medical History Medical History (Updated 08/21/21 @ 12:01 by Terrie Arroyo PA-C) Angular cheilitis BMI 24.0-24.9, adult BMI 25.0-25.9,adult BMI 26.0-26.9,adult Chronic back pain Chronic lung disease Colon cancer screening Cough Dextroscoliosis Diverticulitis Elevated LDL cholesterol level Encounter for Medicare annual wellness exam Encounter to establish care Exposure to heavy metals Follow up GERD (gastroesophageal reflux disease) Heart murmur Herpes History of elevated PSA History of pneumonia Hyponatremia Impacted cerumen of left ear Lumbar spondylosi
[2021-08-21] MEDS: metroNIDAZOLE 500 MG/ISO 100ML 500 MG/100 ML BAG 100 MG IVPB ×2 (14:11→21:35)
[2021-08-21] MEDS: rOPINIRole HCL 1 MG TABLET 2 MG BY MOUTH (17:44)
[2021-08-21] MEDS: PREGABALIN (*CRX) 75 MG CAPSULE 300 MG PO (20:09)
[2021-08-21] MEDS: IPRATROPIUM NASAL SPRAY 0.06% 15 ML BOTTLE 2 SPRAY NASAL (21:35)
[2021-08-21] MEDS: FLUTICASONE PROPIONATE 0.05% NA SPR 16 GM BTL (*BKC) 2 SPRAY NASAL (21:35)
[2021-08-22] MEDS: SODIUM CHLORIDE 0.9% IV 1,000 ML 75 ML IV CONT (04:37)
[2021-08-22 05:25] VITALS: O2SAT 96
[2021-08-22 05:26] VITALS: BP 127/76; PULSE 56; RESP 18; TEMP 36.7; O2SAT 96
[2021-08-22] MEDS: metroNIDAZOLE 500 MG/ISO 100ML 500 MG/100 ML BAG 100 MG IVPB (05:27)
[2021-08-22 06:19] LABS: Hematocrit 32.7 % (42.0-52.0); Hemoglobin 10.4 g/dL (14.0-18.0); Mean Corpuscular HGB Conc 31.8 g/dl (32-36); Mean Corpuscular Hemoglobin 29.8 pg (26-34); Mean Corpuscular Volume 93.7 fl (80-100); Mean Platelet Volume 8.9 fl (7.4-10.4); Platelet Count Result 207 k/mm3 (150-375); Red Blood Count 3.49 M/mm3 (4.6-6.20); Red Cell Distribution Width 12.9 % (11.5-14.5); White Blood Count 4.4 K/mm3 (4.5-10.0)
[2021-08-22 06:39] LABS: Anion Gap 3 mmol/L (8-16); Blood Urea Nitrogen 11 mg/dL (9-20); Calcium 7.8 mg/dL (8.4-10.2); Carbon Dioxide 25 mmol/L (22-30); Chloride 103 mmol/L (98-107); Estimated CRCL calculation 74 ml/min; Estimated Glomerular Filt Rate > 60; Glucose 92 mg/dL (65-110); Potassium 3.9 mmol/L (3.4-5.0); Sodium 131 mmol/L (137-145)
[2021-08-22 08:00] VITALS: PULSE 56; RESP 18; O2SAT 96
[2021-08-22] MEDS: valACYclovir HCL 500 MG TABLET BY MOUTH (08:19)
[2021-08-22] MEDS: FLUTICASONE PROPIONATE 0.05% NA SPR 16 GM BTL (*BKC) 2 SPRAY NASAL (08:19)
[2021-08-22] MEDS: PANTOPRAZOLE SODIUM IV 40 MG VIAL IV PUSH (08:19)
[2021-08-22] MEDS: PREGABALIN (*CRX) 75 MG CAPSULE 300 MG PO (08:21)
--- NOTE | 2021-08-22 09:01 | PC.NURSE ---
hospitalist Terrie called pt inquiring about discharge.
--- NOTE | 2021-08-22 10:48 | P.DS_ITS ---
DS: Admitting Diagnosis Discharge Date 08/22/2021 <JOSE ValeraC - Last Filed: 08/22/21 10:57> Admitting Diagnosis Colitis <JOSE ValeraC - Last Filed: 08/22/21 10:57> DS: Discharge Diagnosis Discharge Diagnosis (1) Acute colitis: Code(s): K52.9 - Noninfective gastroenteritis and colitis, unspecified <JOSE ValeraC - Last Filed: 08/22/21 10:57> Status: Acute <UVALDO Valera-C - Last Filed: 08/22/21 10:57> Assessment and Plan: Presented with left lower quadrant pain. CT abdomen/pelvis showed descending and sigmoid colitis * He was seen in consultation by Gastroenterology * Had colonoscopy on 08/21/2021 which showed mild segmental colitis of the sigmoid and descending colon. Biopsies pending. * Symptomatic improvement following IV Levaquin and Flagyl. Will continue p.o. Levaquin and Flagyl outpatient to complete a total of 10 days of antibiotic therapy. Continue probiotic while on antibiotics. Educated on alcohol avoidance while on Flagyl and patient agreeable. * Diet was slowly advanced and he was able to tolerate a regular diet <JOSE ValeraC - Last Filed: 08/22/21 10:57> (2) Leukocytosis: Qualifiers: Leukocytosis type: unspecified Qualified Code(s): D72.829 - Elevated white blood cell count, unspecified <JOSE ValeraC - Last Filed: 08/22/21 10:57> Code(s): D72.829 - Elevated white blood cell count, unspecified <UVALDO Valera-C - Last Filed: 08/22/21 10:57> Status: Resolved <JOSE ValeraC - Last Filed: 08/22/21 10:57> Assessment and Plan: Resolved. Likely secondary to colitis * Rapid improvement following antibiotics <JOSE ValeraC - Last Filed: 08/22/21 10:57> (3) GERD (gastroesophageal reflux disease): Code(s): K21.9 - Gastro-esophageal reflux disease without esophagitis <JOSE ValeraC - Last Filed: 08/22/21 10:57> Status: Acute <Terrie Arroyo PA-C - Last Filed: 08/22/21 10:57> Assessment and Plan: No acute issues <Terrie Arroyo UVALDO-C - Last Filed: 08/22/21 10:57> (4) Chronic back pain: Qualifiers: Back pain laterality: bilateral Back pain location: low back pain Sciatica laterality: sciatica of left side Sciatica presence: with sciatica Qualified Code(s): M54.42 - Lumbago with sciatica, left side; G89.29 - Other chronic pain <Terrie WeissSima Марияjulian PA-C - Last Filed: 08/22/21 10:57> Code(s): M54.9 - Dorsalgia, unspecified; G89.29 - Other chronic pain <Terrie WeissSima Марияjulian PA-C - Last Filed: 08/22/21 10:57> Status: Acute <Terrie Hsiehjulian UVALDO-C - Last Filed: 08/22/21 10:57> Assessment and Plan: Patient with history of chronic back pain established with neurosurgery. * Has L5-S1 fusion procedure planned for 08/30/[address] Jayy Granger * Reports this will be delayed due to his hospitalization. Requested discharge information be faxed to facility. Spoke with our added at Dr. Granger's office who requested discharge information. Reports procedure to be pushed back 4-6 weeks. <Terrie IselaUVALDO Hinkle-C - Last Filed: 08/22/21 10:57> (5) Abnormal CT scan, pelvis: Code(s): R93.5 - Abnormal findings on diagnostic imaging of other abdominal regions, including retroperitoneum <Terrie IselaSima Arroyo PA-C - Last Filed: 08/22/21 10:57> Status: Acute <Terrie JSima МарияUVALDO jordan-C - Last Filed: 08/22/21 10:57> Assessment and Plan: CT of the pelvis revealed incidental finding of possible varicocele vs hydrocele * Uvaldo
--- NOTE | 2021-08-22 10:48 | PM.DS ---
DS: Admitting Diagnosis Discharge Date 08/22/2021 <NANCIE Valera-C - Last Filed: 08/22/21 10:57> Admitting Diagnosis Colitis <Terrie IselaNANCIE Hinkle-C - Last Filed: 08/22/21 10:57> DS: Discharge Diagnosis Discharge Diagnosis (1) Acute colitis: Code(s): K52.9 - Noninfective gastroenteritis and colitis, unspecified <NANCIE Valera-C - Last Filed: 08/22/21 10:57> Status: Acute <Terrie IselaSima Arroyo PA-C - Last Filed: 08/22/21 10:57> Assessment and Plan: Presented with left lower quadrant pain. CT abdomen/pelvis showed descending and sigmoid colitis He was seen in consultation by Gastroenterology Had colonoscopy on 08/21/2021 which showed mild segmental colitis of the sigmoid and descending colon. Biopsies pending. Symptomatic improvement following IV Levaquin and Flagyl. Will continue p.o. Levaquin and Flagyl outpatient to complete a total of 10 days of antibiotic therapy. Continue probiotic while on antibiotics. Educated on alcohol avoidance while on Flagyl and patient agreeable. Diet was slowly advanced and he was able to tolerate a regular diet <NANCIE Valera-C - Last Filed: 08/22/21 10:57> (2) Leukocytosis: Qualifiers: Leukocytosis type: unspecified Qualified Code(s): D72.829 - Elevated white blood cell count, unspecified <Terrie Arroyo PA-C - Last Filed: 08/22/21 10:57> Code(s): D72.829 - Elevated white blood cell count, unspecified <Terrie Arroyo PA-C - Last Filed: 08/22/21 10:57> Status: Resolved <NANCIE Valera-C - Last Filed: 08/22/21 10:57> Assessment and Plan: Resolved. Likely secondary to colitis Rapid improvement following antibiotics <Terrie Arroyo PA-C - Last Filed: 08/22/21 10:57> (3) GERD (gastroesophageal reflux disease): Code(s): K21.9 - Gastro-esophageal reflux disease without esophagitis <NANCIE Valera-C - Last Filed: 08/22/21 10:57> Status: Acute <Terrie Arroyo, PA-C - Last Filed: 08/22/21 10:57> Assessment and Plan: No acute issues <Terrie Arroyo, PA-C - Last Filed: 08/22/21 10:57> (4) Chronic back pain: Qualifiers: Back pain laterality: bilateral Back pain location: low back pain Sciatica laterality: sciatica of left side Sciatica presence: with sciatica Qualified Code(s): M54.42 - Lumbago with sciatica, left side; G89.29 - Other chronic pain <Terrie JSima Марияjulian, PA-C - Last Filed: 08/22/21 10:57> Code(s): M54.9 - Dorsalgia, unspecified; G89.29 - Other chronic pain <Terrie JSima Марияjulian, PA-C - Last Filed: 08/22/21 10:57> Status: Acute <Terrie Hsiehjulian, PA-C - Last Filed: 08/22/21 10:57> Assessment and Plan: Patient with history of chronic back pain established with neurosurgery. Has L5-S1 fusion procedure planned for 08/30/[address] Jayy Granger Reports this will be delayed due to his hospitalization. Requested discharge information be faxed to facility. Spoke with our added at Dr. Granger's office who requested discharge information. Reports procedure to be pushed back 4-6 weeks. <Terrie WeissSima Arroyo PA-C - Last Filed: 08/22/21 10:57> (5) Abnormal CT scan, pelvis: Code(s): R93.5 - Abnormal findings on diagnostic imaging of other abdominal regions, including retroperitoneum <Terrie WesisSima Марияjulian, PA-C - Last Filed: 08/22/21 10:57> Status: Acute <Terrieana luisa Hsiehjulian, PA-C - Last Filed: 08/22/21 10:57> Assessment and Plan: CT of the pelvis revealed incidental finding of possible varicocele vs hydrocele Patient is asymptomatic. No further intervention required at this time Educated patient that if he developed scrotal swelling or pain, showed follow-up promptly for scrotal ultrasound <Terrie WeissSima Arroyo PA-C - Last Filed: 08/22/21 10:57> (6) Hyponatremia: Code(s): E87.1 - Hypo-osmolality and hyponatremia <Terrie Weiss. St
--- NOTE | 2021-08-22 11:02 | PC.NURSE ---
Discharge paperwork explained to pt, IV removed, all questions and concerned answered, pt calling ride for discharge home with self care. All belongings packed up prior to discharging hospital.
--- NOTE | 2021-08-22 11:12 | PC.NURSE ---
discharge paperwork faxed to MD Jayy Granger office [phone] per physician communication order.
== END 2021-08-22 12:00 | disposition home or self-care (01) | DRG 394 ==
LOC: ANHED 21:36 → ANH3MEDSUR 22:08
PROVIDERS: Internal Medicine Gastroenterology; Admitting Provider Internal Medicine; Emergency Provider Emergency Medicine; PCP Internal Medicine; Visit Provider Physician Assistant
PROC: 0DJD8ZZ Inspection of Lower Intestinal Tract, Via Natural or Artificial Opening Endoscopic (ICD-10-PCS; CPT 45378; principal; 2021-08-21 14:15)
DX: K55.032 Diffuse acute (reversible) ischemia of large intestine (principal); E87.1 Hypo-osmolality and hyponatremia; K52.9 Noninfective gastroenteritis and colitis, unspecified; K21.9 Gastro-esophageal reflux disease without esophagitis; G89.29 Other chronic pain; G25.81 Restless legs syndrome; M47.816 Spondylosis without myelopathy or radiculopathy, lumbar region; J44.9 Chronic obstructive pulmonary disease, unspecified; G62.9 Polyneuropathy, unspecified; B00.9 Herpesviral infection, unspecified; D72.829 Elevated white blood cell count, unspecified; R50.9 Fever, unspecified; M54.9 Dorsalgia, unspecified; Z79.899 Other long term (current) drug therapy; Z98.1 Arthrodesis status; Z86.19 Personal history of other infectious and parasitic diseases; K57.30 Diverticulosis of large intestine without perforation or abscess without bleeding; K64.8 Other hemorrhoids
CPT/HCPCS: 36415; 74177; 80048; 80053; 81001; 83605; 85025; 85027; 87040; 87804; 88305; 96361; 96365; 96366; 96367; 96375; 99285; A9270; C9113; G0378; J0696; J1956; J2704; J7030; J7120; Q9967

== ENCOUNTER 2021-09-06 10:34 | Outpatient (CLI) | payer MEDICARE, SELFPAY ==
[2021-09-06 13:49] LABS: Toxigenic C. Diff POSITIVE (NEGATIVE)
[2021-09-13 00:29] LABS: Calprotectin, Stool 4330 mcg/g
== END 2021-09-06 10:35 | disposition home or self-care (01) ==
LOC: ANHLAB 10:39
PROVIDERS: PCP Internal Medicine; Visit Provider Internal Medicine Gastroenterology
DX: K52.9 Noninfective gastroenteritis and colitis, unspecified (principal)
CPT/HCPCS: 83993; 87045; 87427; 87493

== ENCOUNTER 2021-10-03 06:46 | Outpatient (RCR) | payer MEDICARE, SELFPAY ==
[2021-10-03 09:06] LABS: Cortisol Baseline 5.56 ug/dL
== END 2022-01-01 23:59 | disposition home or self-care (01) ==
LOC: ANHVASCINF 06:46
PROVIDERS: PCP Internal Medicine; Visit Provider Internal Medicine Nephrology
DX: R94.7 Abnormal results of other endocrine function studies (principal); E87.1 Hypo-osmolality and hyponatremia
CPT/HCPCS: 36415; 82533; 96372; J0834

== ENCOUNTER 2021-10-28 09:50 | Emergency (ER) | payer MEDICARE, SELFPAY ==
[2021-10-28] VITALS (44 sets, daily range): BP systolic 62–111; BP diastolic 42–71; PULSE 64–114; RESP 11–25; TEMP 37.7; O2SAT 94–100
--- NOTE | ~2021-10-28 | XR_ITS ---
EXAMINATION: XR chest 2V DATE: 10/28/2021 14:55 INDICATION: Sepsis. TECHNIQUE: Frontal and lateral views of the chest were obtained on 3 radiographs. COMPARISON: Chest 2 views 07/22/2021, CT abdomen and pelvis 08/19/2021 FINDINGS: The lung volumes are normal. There are chronic reticular opacities in the lower lung zones. No pleural effusion or pneumothorax. The heart size is normal. IMPRESSION: 1. Stable chronic interstitial lung disease. Reviewed, dictated and finalized at location A.
[2021-10-28 10:05] LABS: Basophils Percent Auto 0.1 % (0.2-1.2); Hematocrit 35.6 % (42.0-52.0); Hemoglobin 11.5 g/dL (14.0-18.0); Immature Granulocyte Absolute 0.08 K/mm3 (0.00-0.031); Immature Granulocyte Percent A 0.5 % (0-0.5); Lymphocytes Absolute Auto 0.47 K/mm3 (0.9-3.2); Lymphocytes Percent Auto 3.2 % (18.3-44.2); Mean Corpuscular HGB Conc 32.3 g/dl (32-36); Mean Corpuscular Hemoglobin 29.5 pg (26-34); Mean Corpuscular Volume 91.3 fl (80-100); Mean Platelet Volume 8.1 fl (7.4-10.4); Monocytes Absolute Auto 0.7 K/mm3 (0.1-0.6); Monocytes Percent Auto 4.9 % (2.6-8.5); Neutrophils Absolute Auto 13.5 K/mm3 (1.3-6.7); Neutrophils Percent Auto 91.3 % (45.5-73.1); Platelet Count Result 354 k/mm3 (150-375); Red Cell Distribution Width 13.4 % (11.5-14.5); White Blood Count 14.8 K/mm3 (4.5-10.0)
[2021-10-28 10:20] LABS: Anion Gap 10 mmol/L (8-16); Blood Urea Nitrogen 14 mg/dL (9-20); Calcium 8.6 mg/dL (8.4-10.2); Carbon Dioxide 24 mmol/L (22-30); Chloride 94 mmol/L (98-107); Estimated CRCL calculation 66 ml/min; Estimated Glomerular Filt Rate > 60; Glucose 90 mg/dL (65-110); Potassium 4.5 mmol/L (3.4-5.0); Sodium 128 mmol/L (137-145)
[2021-10-28 11:28] LABS: Add Urine Microscopic? YES; Appearance Urine Clear (Clear); Bilirubin Urine Negative (Negative); Blood Urine 1+ (Negative); Color Urine Yellow (Yellow); Glucose Urine UA Negative (Negative); Ketones Urine Trace mg/dL (Negative); Leukocyte Esterase Ur Negative LEU/UL (Negative); Nitrate Urine Negative (Negative); Protein Urine 1+ mg/dL (Negative); Specific Grav Ur 1.015 (1.001-1.035); Urobilinogen Urine 0.2 mg/dL (<2.0)
[2021-10-28 11:41] LABS: Mucus Urine Rare /lpf; RBC Urine 0-2 /hpf (0-2); WBC Urine 0-3 /hpf
[2021-10-28] MEDS: SODIUM CHLORIDE 0.9% IV 1,000 ML 999 ML IV CONT ×2 (13:12→17:31)
--- NOTE | 2021-10-28 13:15 | PC.NURSE ---
EDP Ledy notified of patient's symptoms and presentation. Verbal orders for blood cultures, lactic acid, and IV fluids obtained.
--- NOTE | 2021-10-28 13:57 | ED.BACK ---
HPI - Back Pain/Injury General Chief Complaint: Back Pain/Injury Stated Complaint: back pain, chills Time Seen by Provider: 10/28/21 13:57 Source: patient, family and RN notes reviewed Mode of arrival: ambulatory Limitations: no limitations History of Present Illness HPI Narrative: 71 years old white male brought to the emergency room by private car complaining of severe lower back pain at the surgical site started 2 days ago associated with chills and temperature in 100. Patient is status post lumbar vertebral fusion 2 weeks ago at [facility] by Dr. Granger. Patient remove the treva 1 week later. He was doing fine until 2 days ago when the pain started with low-grade fever. Patient also reports diarrhea similar to his previous history of C. difficile started 1 week ago, he started immediately on vancomycin orally with improvement. Patient did not have any diarrhea yesterday or today. Related Data Home Medications Medication Instructions Recorded Confirmed fluticasone propionate 50 2 spray intranasal BID 08/21/20 10/10/21 mcg/actuation nasal spray,suspension ipratropium bromide 42 mcg (0.06 2 spray intranasal QID 08/21/20 10/10/21 %) nasal spray pregabalin 150 mg capsule (Lyrica) 300 mg PO BID 08/21/20 10/10/21 esomeprazole magnesium 40 mg 40 mg PO BID PRN GERD 10/14/21 capsule,delayed release (Nexium) Allergies Allergy/AdvReac Type Severity Reaction Status Date / Time No Known Allergies Allergy Verified 10/10/21 11:06 Review of Systems Review of Systems: All systems reviewed & are unremarkable except as noted in HPI and below PMFSH Past Medical History Medical History Angular cheilitis Anogenital herpesviral infection, unspecified BMI 24.0-24.9, adult BMI 25.0-25.9,adult BMI 26.0-26.9,adult Bronchiectasis with acute exacerbation C. 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 Restless legs syndrome Right wrist tendinitis Ruptured intervertebral disc SOB (shortness of breath) on exertion Thumb pain Viral wart on right thumb Family History Family History Father Family history of chronic obstructive pulmonary disease Mother Family history of chronic obstructive pulmonary disease Social History Social History Smoking status: Never smoker Second hand tobacco smoke exposure: No Alcohol intake: current Drinks per week: 21 Substance use: current Substance use type: marijuana Spiritual care concerns: No (Voodoo, not currently practicing) Exam Narrative: General appearance: Well-developed, well-nourished Skin: Normal color Head: Normocephalic, nontraumatic Eyes: Clear conjunctiva ENT: Oropharynx normal, ears normal, nose normal Neck: Supple, nontender Chest and respiratory: Airway patent, no respiratory distress, no accessory muscle use Heart: Regular rate/rhythm Abdomen: Soft, nontender, no organomegaly, quiet bowel sounds Vascular: Normal peripheral pulses, normal capillary refill. Musculoskeletal: Severe limited range of motion at the lumbar area, severe tenderness at the surgical site, swollen, warm, slight erythema, 2 cm open surgical site with yellow discharge at the base of it, no discharge outside. 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
--- NOTE | 2021-10-28 14:26 | ECG_ITS ---
Measurements Intervals [place] Rate: 82 P: 40 MD: 200 QRS: -44 QRSD: 100 T: 31 QT: 358 QTc: 418 Interpretive Statements SINUS RHYTHM BASELINE ARTIFACT LEFT AXIS DEVIATION INCOMPLETE RIGHT BUNDLE BRANCH BLOCK BORDERLINE ECG NO PREVIOUS ECG AVAILABLE FOR COMPARISON Electronically Signed On 10-28-2021 16:39:29 CDT by Jitendra Mohr M.D.
[2021-10-28 15:33] LABS: INR 1.2; Prothrombin Time 14.8 Seconds (11.1-14.7)
[2021-10-28 15:34] LABS: Partial Thromboplastin Time 33.1 SECONDS (22.3-36.8)
[2021-10-28 16:39] LABS: SARS-CoV-2 RNA PCR Negative
--- NOTE | 2021-10-28 17:30 | PC.NURSE ---
Pt received a total of 3300 ml of ns per md order.
[2021-10-28] MEDS: PREGABALIN (*CRX) 75 MG CAPSULE 150 MG PO (19:26)
--- NOTE | 2021-10-28 19:27 | PC.NURSE ---
pt took ropinorole from home. aware.
[2021-10-28] MEDS: oxyCODONE HCL (*CRX) 5 MG TAB IR PO (21:19)
[2021-10-28] MEDS: ONDANSETRON HCL ODT 4 MG TABLET PO (21:19)
[2021-10-28 22:31] LABS: Alanine Aminotransferase 43 U/L (6-50); Alkaline Phosphatase 92 U/L (38-126); Aspartate Amino Transferase 51 U/L (17-59); Bilirubin,Total 0.9 mg/dL (0.2-1.3)
[2021-10-28 22:59] LABS: CRP 32.3 mg/dL (<1.0)
== END 2021-10-28 21:25 | disposition short-term general hospital (02) ==
PROVIDERS: Emergency Medicine; Emergency Provider Emergency Medicine; PCP Internal Medicine
DX: T81.41XA Infection following a procedure, superficial incisional surgical site, initial encounter (principal); E87.1 Hypo-osmolality and hyponatremia; Z98.1 Arthrodesis status; Z20.822 Contact with and (suspected) exposure to COVID-19; J98.4 Other disorders of lung; K21.9 Gastro-esophageal reflux disease without esophagitis; Z87.01 Personal history of pneumonia (recurrent)
CPT/HCPCS: 36415; 71046; 80048; 80076; 81001; 83605; 85025; 85610; 85730; 86140; 87040; 87077; 87186; 93005; 96361; 96365; 96366; 96367; 96368; 99285; A9270; C9803; J0131; J2543; J3370; J7030; U0003; U0005

== ENCOUNTER 2022-05-21 10:34 | Outpatient (CLI) | payer MEDICARE, SELFPAY ==
--- NOTE | ~2022-05-21 | XR_ITS ---
XR abdomen/kub 1V 05/21/2022 10:46 Indication: Abdominal pain. Constipation. Procedure: KUB Comparison: No prior studies for comparison. Findings: Bowel gas pattern is nonobstructive. Moderate colonic fecal loading. There are surgical fus ion changes at L4-5. There is moderate lumbar spondylosis with dextroscoliosis. There is chronic inte rstitial lung disease in the lung bases. No acute osseous abnormality. Impression: 1: Nonobstructive bowel gas pattern. Moderate colonic fecal loading. Reviewed, dictated and finalized at location B. 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 Moderate colonic fecal loading.
== END 2022-05-21 10:35 | disposition home or self-care (01) ==
LOC: ANHIMG 10:37
PROVIDERS: PCP Internal Medicine; Visit Provider Internal Medicine
DX: R10.9 Unspecified abdominal pain (principal); R14.0 Abdominal distension (gaseous)
CPT/HCPCS: 74018

== ENCOUNTER 2022-07-29 12:54 | Outpatient (NON) | payer MEDICARE, SELFPAY | END 2022-07-29 12:55 | disposition home or self-care (01) | LOC: ANHLAB 07-30 12:57 | PROVIDERS: PCP Internal Medicine; Visit Provider Nurse Practitioner | DX: D22.72 Melanocytic nevi of left lower limb, including hip (principal) | CPT/HCPCS: 88305 ==

== ENCOUNTER 2022-09-03 08:10 | Outpatient (CLI) | payer MEDICARE, SELFPAY ==
--- NOTE | ~2022-09-03 | XR_ITS ---
XR thoracic spine min 4V DATE: 09/03/2022 09:00 INDICATION: Back pain TECHNIQUE: AP and lateral views COMPARISON: None FINDINGS: There is mild upper thoracic dextroscoliosis and mild lower thoracic levoscoliosis. There i s osteopenia. There is mild degenerative spurring of the thoracic spine. The thoracic pedicles are intact. No fracture or bone destruction or dislocation. No paraspinal soft tissue thickening. IMPRESSION: Osteopenia Mild scoliosis Mild degenerative spurring Reviewed, dictated and finalized at location []
--- NOTE | ~2022-09-03 | XR_ITS ---
XR lumbar spine min 4V DATE: 09/03/2022 09:00 INDICATION: Back pain TECHNIQUE: Standing AP and lateral views. Standing flexion and extension lateral views. COMPARISON: 03/02/2018 lumbar spine FINDINGS: There is osteopenia. Mild thoracolumbar levoscoliosis. Since 03/02/2018 there is posterior and interbody spinal fusion at L5-S1 with bilateral pedicle screws and rods and cage device. No fracture or bone destruction is evident. There is mild degenerative spurring throughout the lumbar spine. There is mild retrolisthesis at L3-4 and L4-5. No instability on flexion or extension is noted. The sacroiliac joints appear intact. IMPRESSION: Osteopenia Status post posterior and interbody spinal fusion at L5-S1 Mild/moderate degenerative disc disease Reviewed, dictated and finalized at location []
== END 2022-09-03 08:11 | disposition home or self-care (01) ==
PROVIDERS: PCP Internal Medicine; Visit Provider Internal Medicine
DX: M54.9 Dorsalgia, unspecified (principal); G89.29 Other chronic pain; M85.88 Other specified disorders of bone density and structure, other site; Z98.1 Arthrodesis status; M51.36 Other intervertebral disc degeneration, lumbar region; M41.9 Scoliosis, unspecified
CPT/HCPCS: 72074; 72110

== ENCOUNTER 2022-10-29 12:13 | Outpatient (CLI) | payer MEDICARE, SELFPAY ==
--- NOTE | ~2022-10-29 | XR_ITS ---
EXAM: XR sinus min 3V DATE: 10/29/2022 12:37 HISTORY: Chronic pansinusitis, frontal sinus congestion x 3 months . COMPARISON: CT sinuses 02/24/2011. Multiple dental restorations. Normal mineralization. No abnormal intracranial calcification. The orbi ts are intact and symmetric. Air-fluid levels in the bilateral maxillary sinuses. Near complete opaci fication of the right frontal sinus. IMPRESSION: Radiographic findings may represent acute bilateral maxillary sinusitis. Complete opacification of the right frontal sinus, may represent a retention cyst, polyp, other mass, mucosal periosteal change, or acute/chronic sinusitis. Consider CT of the sinuses for further evaluation. Reviewed, dictated and finalized at location K. IMPRESSION: Radiographic findings may represent acute bilateral maxillary sinusitis. Complete opacification of the right frontal sinus, may represent a retention cy st, polyp, other mass, mucosal periosteal change, or acute/chronic sinusitis. Consider CT of the sinuses for further evaluation.
== END 2022-10-29 12:14 | disposition home or self-care (01) ==
PROVIDERS: PCP Internal Medicine; Visit Provider Internal Medicine
DX: J32.4 Chronic pansinusitis (principal); R93.89 Abnormal findings on diagnostic imaging of other specified body structures
CPT/HCPCS: 70220

== ENCOUNTER → 2022-11-03 13:17 | Outpatient (CLI) | payer MEDICARE, SELFPAY ==
--- NOTE | ~2022-11-03 | CT_ITS ---
EXAMINATION: CT sinus wo con DATE: 11/03/2022 13:33 INDICATION: Chronic pansinusitis. TECHNIQUE: Computed tomography (CT) of the paranasal sinuses was performed without intravenous contra st. Iterative reconstruction technique was employed. The dose-length product was 360.33 mGy-cm. COMPARISON: Sinuses CT 02/24/2011 FINDINGS: There is complete opacification of right frontal sinus with sclerosis and erosions of the s inus wall. There are changes of ethmoidectomies and uncinectomies. There is mild mucosal thickening i n the ethmoid and sphenoid sinuses. There is moderate mucosal thickening in the maxillary sinuses wit h dependent fluid. There is thickening and sclerosis of the melchor of the maxillary sinuses. There is rightward deviation of the nasal septum posteriorly. Left ostiomeatal unit is patent. There is occlus ion of right ostiomeatal unit. There is a patent secondary right maxillary ostium. IMPRESSION: 1. Chronic sinusitis. 2. Rightward deviation the nasal septum posteriorly. Reviewed, dictated and finalized at location A.
== END ==
PROVIDERS: PCP Internal Medicine; Visit Provider Internal Medicine
DX: J32.4 Chronic pansinusitis (principal); J34.2 Deviated nasal septum
CPT/HCPCS: 70486

== ENCOUNTER 2022-11-15 10:32 | Emergency (ER) | payer MEDICARE, SELFPAY ==
--- NOTE | ~2022-11-15 | XR_ITS ---
EXAMINATION: XR hand RT min 3V DATE: 11/15/2022 11:24 INDICATION: Right hand second digit laceration. TECHNIQUE: 3 views of right hand were obtained. COMPARISON: Right wrist radiographs 07/14/2017 FINDINGS: Bone alignment is normal. No fracture. There is mild osteoarthritis of triscaphe joint, fir st carpometacarpal joint, and some of the interphalangeal joints. There is moderate osteoarthritis of second and fifth distal interphalangeal joints. IMPRESSION: 1. Polyarticular osteoarthritis. Reviewed, dictated and finalized at location A.
[2022-11-15 10:55] VITALS: BP 127/84; PULSE 73; RESP 18; TEMP 36.6; O2SAT 98
--- NOTE | 2022-11-15 12:26 | ED.GENADULT ---
HPI - General Adult General Chief complaint: Wound/Laceration Stated complaint: right index finger lac Time Seen by Provider: 11/15/22 11:30 Source: patient Mode of arrival: ambulatory Limitations: no limitations History of Present Illness HPI narrative: This is a 72-year-old male who presents to the ED with chief complaint of right index finger laceration occurring just prior to arrival. Patient was outside working with his pocket knife and states he accidentally cut to the tip of the right finger. Reports the pocket knife safety mechanism did not check and caused it to come down and sliced the end of his finger. Denies blood thinner use. Denies numbness or weakness. Denies any further site of pain or injury. Related Data Home Medications Medication Instructions Recorded Confirmed pregabalin 150 mg capsule (Lyrica) 300 mg PO BID 08/21/20 10/29/22 esomeprazole magnesium 40 mg 40 mg PO BID PRN GERD 10/14/21 10/29/22 capsule,delayed release (Nexium) Allergies Allergy/AdvReac Type Severity Reaction Status Date / Time No Known Allergies Allergy Verified 10/29/22 11:16 Review of Systems Review of Systems: All systems as dictated in [facility] Past Medical History Medical History Abdominal bloating Abnormal CT scan, pelvis Angular cheilitis Anogenital herpesviral infection, unspecified BMI 24.0-24.9, adult BMI 25.0-25.9,adult BMI 26.0-26.9,adult Bronchiectasis with acute exacerbation C. difficile colitis Chronic back pain Chronic lung disease Colon cancer screening Constipation Cough Dermatitis Dextroscoliosis Diverticulitis Elevated LDL cholesterol level Encounter for Medicare annual wellness exam Encounter for routine adult health examination without abnormal findings Encounter to establish care Exposure to heavy metals Fever Follow up GERD (gastroesophageal reflux disease) Heart murmur Herpes History of elevated PSA History of pneumonia Hypercholesterolemia Hyponatremia Impacted cerumen of left ear Lumbar spondylosis Nausea Nausea Neuropathy On retirement drug therapy Restless legs syndrome Right wrist tendinitis Ruptured intervertebral disc Shingles SOB (shortness of breath) on exertion Thumb pain Viral wart on right thumb Family History Family History Father Family history of chronic obstructive pulmonary disease Mother Family history of chronic obstructive pulmonary disease Social History Social History Smoking status: Never smoker Second hand tobacco smoke exposure: No Alcohol intake: current Drinks per week: 21 Substance use: current Substance use type: marijuana Lack of Transportation: No Lack of Food: Never True Current Housing: I Have Housing Concerned About Future Housing: No Difficulty Paying Gas/Electric Bills: No Difficulty Paying for Meds: No Currently Unemployed: No Education: Bachelor's Degree Difficulty w/ Childcare or Family Care: No Living arrangements: with family Gender identity (if verbalized by the patient): Male Spiritual care concerns: No (Druze, not currently practicing) Exam Narrative: GENERAL: Well-appearing, well-nourished, and in no acute distress. HEAD: Normocephalic, atraumatic. EYES: PERRLA and EOMI. ENT: Nares clear, no rhinorrhea or epistaxis. Mucous membranes moist. Oropharynx without tonsillar hypertrophy exudate or other lesions. NECK: Supple. No adenopathy or masses. CHEST: No respiratory distress. Clear to auscultation. No wheezes rales or rhonchi HEART: Regular rate and rhythm. No murmur heard. Normal peripheral pulses. ABDOMEN: Soft, nontender, nondistended, normal active bowel sounds. MSK: There is a 2.5 cm simple linear laceration to the distal tip of the index finger on the right. It runs laterally and does not interfere with
[2022-11-15] MEDS: LIDOCAINE HCL 1% LOCAL INJ 10 ML VIAL INFILTRATE (12:41)
== END 2022-11-15 13:31 | disposition home or self-care (01) ==
PROVIDERS: Emergency Provider Physician Assistant; PCP Internal Medicine
DX: S61.210A Laceration without foreign body of right index finger without damage to nail, initial encounter (principal); J98.4 Other disorders of lung; E78.00 Pure hypercholesterolemia, unspecified; K21.9 Gastro-esophageal reflux disease without esophagitis; G62.9 Polyneuropathy, unspecified; G25.81 Restless legs syndrome; Z87.01 Personal history of pneumonia (recurrent); M19.031 Primary osteoarthritis, right wrist; M18.9 Osteoarthritis of first carpometacarpal joint, unspecified; M19.041 Primary osteoarthritis, right hand; W26.0XXA Contact with knife, initial encounter
CPT/HCPCS: 12001; 73130; 99283

== ENCOUNTER → 2023-02-18 09:21 | Outpatient (CLI) | payer MEDICARE, SELFPAY ==
--- NOTE | ~2023-02-18 | MR_ITS ---
EXAMINATION: MR lumbar spine wo con DATE: 02/18/2023 11:48 INDICATION: Dorsalgia TECHNIQUE: Magnetic resonance imaging (MRI) of the lumbar spine was performed without intravenous con trast. Sequences included sagittal T2-weighted FSE, sagittal T2-weighted FS FSE, sagittal T1-weighted FSE, and axial T2-weighted FSE. COMPARISON: 10/04/2020 FINDINGS: Unchanged 15 degree thoracolumbar dextroscoliosis. Sagittal alignment is normal. Again seen is chroni c mild likely physiologic anterior wedging at T12 and L1. Remaining vertebral body heights are normal . Interval partial L5 laminectomy with instrumented L5-S1 anterior and posterior spinal fusion with m agnetic field artifact associated with interbody fusion device and bilateral vertical barbara and pedicle screw fixation. Unchanged severe right-sided disc height loss with associated fibrovascular degenera tive endplate changes at L4-L5. Mild to moderate left-sided predominant disc height loss at L3-L4, mi ld left-sided disc height loss at L2-L3 and diffuse mild disc height loss at L1-L2. Marrow signal is otherwise unremarkable. The conus medullaris terminates at L1. There is normal signal in the caudal s landon cord. Again seen is posterior expansion of the S2 vertebral body resulting in moderate central canal stenosis at this level. Associated prominent T1 hyperintense fat signal with thickened internal trabecula in the S2 vertebral body which extends laterally into the left and right sacral ala sugges tive of a large hemangioma. Postoperative scarring and some increased fluid signal and fatty muscular atrophy posterior to the lumbosacral junction. The following disc levels are specifically discussed: T12-L1: Disc is bulging. There is moderate right and severe left facet joint osteoarthritis. There is mild bilateral neural foraminal stenosis. There is mild central canal stenosis. L1-L2: Disc is bulging with annular fissure. There is severe bilateral facet joint osteoarthritis. Th ere is wall to moderate bilateral neural foraminal stenosis. There is mild central canal stenosis jerson ng with moderate narrowing of the left lateral recesses. L2-L3: Disc is mildly bulging with superimposed left foraminal zone disc protrusion. There is severe bilateral facet joint osteoarthritis. There is mild right and mild to moderate left neural foraminal stenosis. There is mild central canal stenosis along with mild narrowing of the right and moderate na rrowing of the left lateral recesses. L3-L4: Disc is bulging with annular fissure and superimposed left foraminal zone disc protrusion. The re is severe bilateral facet joint osteoarthritis. There is mild to moderate right and moderate left neural foraminal stenosis. There is mild central canal stenosis along with moderate narrowing of the left and right lateral recesses. L4-L5: Disc is bulging. There is severe bilateral facet joint osteoarthritis. There is moderate left and moderate to severe right neural foraminal stenosis. There is mild central canal stenosis. L5-S1: Anterior fusion procedure at the disc space and posterior spinal fusion with magnetic field ar tifact associated with the bilateral vertical rods and pedicle screws which mildly limits evaluation the neural foramina. There is at least mild but no greater than moderate bilateral neural foraminal s tenosis. There is no central canal stenosis. IMPRESSION: 1. Unchanged 15 degrees thoracolumbar dextro scoliosis with severe lumbar spondylosis. 2. Interval instrumented L5-S1 anterior and posterior spinal fusion. 3. Unchanged posterior expansion of S2 with secondary moderate central canal stenosis at this level. There is prominent central marrow fat signal and some thickened trabecular suggesting this is related to a hemangioma. Reviewed, dictated and finalized at location A. Electronically signed by Campbell Ramirez M.D. on
--- NOTE | ~2023-02-18 | MR_ITS ---
EXAMINATION: MR hip LT wo con, MR hip RT wo con, MR sacroiliac jts wo con DATE: 02/18/2023 11:48 INDICATION: Left hip pain TECHNIQUE: 1. Magnetic resonance imaging (MRI) of the left hip was performed without intravenous contrast. Seque nces included full-field axial PD-weighted FS FSE and T1-weighted FSE, coronal of the pelvis with PD- weighted FS FSE, T2-weighted FSE and T1-weighted FSE, small field of view of the left hip with axial PD-weighted FS FSE, sagittal PD-weighted FS FSE, coronal PD-weighted FS FSE and coronal T2 weighted FSE. Additional radial T1-weighted FGR oriented orthogonal to the acetabular rim were obtained for ev aluation of the labrum. 2. MRI of the right hip was performed without intravenous contrast. Sequences included small field of view of the right hip with axial PD-weighted FS FSE, sagittal PD-weighted FS FSE, coronal PD-weighte d FS FSE and coronal T2 weighted FSE. Additional radial T1-weighted FGR oriented orthogonal to the a cetabular rim were obtained for evaluation of the labrum. 3. MRI of the bilateral sacroiliac joints was performed without intravenous contrast. Sequences inclu ded sagittal PD-weighted FS FSE; sagittal, oblique axial and oblique coronal fluid sensitive FSE STIR ; oblique axial and oblique coronal T1-weighted FSE and oblique coronal T2-weighted FSE. COMPARISON: CT abdomen and pelvis dated 08/19/2021 FINDINGS: Bones/labrum/cartilage: There is magnetic field artifact associated with bilateral vertical barbara and pedicle screw fixation fo r posterior spinal fusion at L4-L5. Additional magnetic field artifact at the level of the L4-L5 disc space where likely associated anterior spinal fusion procedure. There is mild lower lumbar levocurva ture and compensatory mild dextrocurvature in the more cephalad lumbar spine. See separate lumbar spi ne MRI report for further detail. There is posterior expansion of the S2 vertebral body with diffuse T1 hyperintense signal surrounding multiple thickened low signal intensity trabecular with similar ap pearance as on prior MRI dated 10/04/2020 consistent with a benign etiology such as a large hemangioma. The marrow signal is otherwise normal throughout with no fracture, avascular necrosis or other patho logic marrow replacing process. Mild left-sided and moderate right-sided sacroiliac osteoarthritis. N o associated erosions to suggest an inflammatory sacroiliitis. There is mild to moderate bilateral hi p osteoarthritis with posterior predominant nonuniform joint space narrowing. The bilateral acetabula r medardo have been partially replaced by marginal osteophytes with degenerative fraying and tearing of the remaining labral tissues at both the left and right hips. Fluid: Symmetric physiologic amount of fluid within both hip joints. No abnormal fluid collections. Soft tissues: . There is some fatty atrophy and increased muscle fluid signal in the posterior paraspinal musculatu re at the lower lumbar spine which could reflect acute on chronic denervation change related to the p rior spinal surgery. Otherwise normal and symmetric muscle bulk and signal in the pelvis and visualiz ed proximal thighs. Mild tendinopathy without discrete tears at the conjoined bilateral biceps femori s and semitendinosus tendons as well as at the bilateral gluteus medius tendons. Prostatomegaly. Limi andrew evaluation of visceral organs of the pelvis is otherwise unremarkable. No pathologically enlarge d pelvic/inguinal lymphadenopathy. IMPRESSION: 1. Mild left and moderate right sacroiliac osteoarthritis with no erosions to suggest inflammatory sa croiliitis. 2. Mild to moderate osteoarthritis and chronic labral degeneration at the bilateral hips. 3. Likely benign chronic expansile lesion at the L1 vertebral body extending into the thoracic aorta with prominent T1 fat signal and thickened internal trabecula most consistent with a hemangioma. 4. Mild tendinopathy without di
== END ==
PROVIDERS: PCP Internal Medicine; Visit Provider Internal Medicine
DX: M41.85 Other forms of scoliosis, thoracolumbar region (principal); M43.06 Spondylolysis, lumbar region; M16.0 Bilateral primary osteoarthritis of hip; N40.1 Benign prostatic hyperplasia with lower urinary tract symptoms; M76.892 Other specified enthesopathies of left lower limb, excluding foot
CPT/HCPCS: 72148; 72197; 73721

== ENCOUNTER 2023-06-16 09:58 | Outpatient (CLI) | payer MEDICARE, SELFPAY ==
--- NOTE | 2023-06-16 11:30 | NEURO_ITS ---
Impression: # Non-diabetic complains of numbness of lower extremities. History of lead poisoning and chelating agentstreatment. # Motor and sensory neuropathy. # Neurogenic changes on needle/EMG exam in multiple muscles. # Clinical correlation recommended,could be related to neuropathy secondary to lead poisoning. Nerve Conduction Studies Anti Sensory Summary Table Stim Site NR Peak (ms) P-T Amp (?V) Site1 Site2 Delta-P (ms) Dist (cm) Cooper (m/s) Left Saphenous Anti Sensory (Ant Med Mall) NO RESPONSE 14cm NR 14cm Ant Med Mall 0.0 Right Saphenous Anti Sensory (Ant Med Mall) NO RESPONSE 14cm NR 14cm Ant Med Mall 0.0 Left Sup Fibular Anti Sensory (Ant Lat Mall) NO RESPONSE 14 cm NR 14 cm Ant Lat Mall 16.0 Right Sup Fibular Anti Sensory (Ant Lat Mall) NO RESPONSE 14 cm NR 14 cm Ant Lat Mall 16.0 Left Sural Anti Sensory (Lat Mall) Calf 4.2 17.4 Calf Lat Mall 4.2 16.0 38 Right Sural Anti Sensory (Lat Mall) NO RESPONSE Calf NR Calf Lat Mall 16.0 Motor Summary Table Stim Site NR Onset (ms) O-P Amp (mV) Site1 Site2 Delta-0 (ms) Dist (cm) Cooper (m/s) Left Peroneal Motor (Vastus Med) Ankle 5.2 1.7 Popit Ankle 10.7 41.0 38 Popit 15.9 1.2 Right Peroneal Motor (Vastus Med) Ankle 4.5 1.4 Popit Ankle 11.8 43.0 36 Popit 16.3 0.9 Left Tibial Motor (Abd Esqueda Brev) Ankle 5.0 3.4 Knee Ankle 11.7 42.0 36 Knee 16.7 2.0 Right Tibial Motor (Abd Esqueda Brev) Ankle 4.8 3.9 Knee Ankle 12.7 46.0 36 Knee 17.5 1.6 F Wave Studies NR F-Lat (ms) L-R F-Lat (ms) Left Peroneal (Mrkrs) (EDB) 65.71 1.50 Right Peroneal (Mrkrs) (EDB) 64.21 1.50 Left Tibial (Mrkrs) (Abd Hallucis) 66.02 1.90 Right Tibial (Mrkrs) (Abd Hallucis) 64.12 1.90 EMG Side Muscle Nerve Root Ins Act Fibs Amp Dur Recrt Comment Right AntTibialis Dp Br Fibular L4-5 Nml Nml Nml Nml Nml Right Gastroc Tibial S1-2 Nml Nml Nml Nml Nml Right Fibularis Long Sup Br Fibular L5-S1 Nml Nml Nml >12ms +1 Right Flex Dig Long Tibial L5-S2 Nml Nml Nml >12ms +1 Right Ext Dig Brev Dp Br Fibular L5, S1 Nml Nml Nml >12ms +1 Left AntTibialis Dp Br Fibular L4-5 Nml Nml Nml Nml Nml Left Gastroc Tibial S1-2 Nml Nml Nml Nml Nml Left Fibularis Long Sup Br Fibular L5-S1 Nml Nml Nml >12ms +1 Left Flex Dig Long Tibial L5-S2 Nml Nml Nml >12ms +1 Left Ext Dig Brev Dp Br Fibular L5, S1 Nml Nml Nml >12ms +1 MTDD
== END 2023-06-16 09:59 | disposition home or self-care (01) ==
LOC: ANHNEURO 09:59
PROVIDERS: PCP Internal Medicine; Visit Provider Internal Medicine
DX: G62.9 Polyneuropathy, unspecified (principal); M79.604 Pain in right leg; M79.605 Pain in left leg; Z77.011 Contact with and (suspected) exposure to lead
CPT/HCPCS: 95886; 95911

== ENCOUNTER 2023-06-30 09:06 | Day surgery (SDC) | payer MEDICARE, SELFPAY ==
[2023-06-10 12:20] VITALS: BMI 26.5
--- NOTE | ~2023-06-30 | XR_ITS ---
EXAMINATION: XR fluoroscopy no charge DATE: 06/30/2023 12:14 INDICATION: Right L5 nerve root block TECHNIQUE: 7 fluoroscopic images of the lumbar spine were obtained during procedure performed by Dr. Irby. Radiologist was not present for the imaging or procedure. The amount of fluoroscopy time used d uring this procedure was 0.3 minutes. COMPARISON: 09/03/2022 FINDINGS: Images demonstrate changes at L4-L5 combined instrumented anterior and posterior spinal fusion with i nterbody bone graft cage and bilateral vertical barbara and pedicle screw fixation. A spinal needle tip p rojects over the expected location of the posterosuperior margin of the right L5-S1 neural foramen. S ubsequent images demonstrate injected contrast coursing peripherally along the course of the nerve ro ot. IMPRESSION: 1. Fluoroscopy utilized during right L5 nerve root block. See procedure note for further detail. Reviewed, dictated and finalized at location A. IMPRESSION: 1. Fluoroscopy utilized during right L5 nerve root block. See procedure note fo r further detail.
[2023-06-30 09:28] VITALS: BP 111/79; PULSE 65; RESP 16; TEMP 36.6; O2SAT 99; BMI 25.7
--- NOTE | 2023-06-30 10:57 | PM.HPGS ---
History of Present Illness History of Present Illness Consent: Risks, benefits, and alternatives have been discussed and questions answered. Patient agrees to proceed with procedure. Chief complaint: Lumbosacral radiculopathy, Lumbar spinal stenosis Narrative: Douglas Horn is a 73 year old male with chronic, recalcitrant and disabling right lumbosacral radiculopathy secondary to lumbar spinal stenosis and post-laminectomy syndrome with failure to respond to aggressive conservative measures including PT, oral and topical analgesics, opioid and nonopioid analgesics, rest, time and activity/behavioral modification over the past 1-2 years who presents for diagnostic/prognostic and therapeutic L5 selective nerve root block with local anesthetic and steroid under fluoroscopic guidance and with contrast control to address residual radiculopathy following L5-S1 decompression and fusion. Review of Systems Review of Systems: Patient denies any new infectious, allergic, cardiopulmonary, neurologic or constitutional symptoms or changes in activity tolerance or exercise capacity including new or progressive SOB/CHAWLA, peripheral edema, productive cough, dysuria, nausea/vomiting, diarrhea, weight change, fevers/chills/night sweats, new or progressive neurologic deficit, cognitive or mood changes since last seen, except as documented in the HPI. All systems reviewed & are unremarkable except as noted in HPI and below PMFSH Past Medical History Medical History Abdominal bloating Abnormal CT scan, pelvis Angular cheilitis Anogenital herpesviral infection, unspecified Bilateral hip pain BMI 24.0-24.9, adult BMI 25.0-25.9,adult BMI 26.0-26.9,adult BMI 27.0-27.9,adult Bronchiectasis with acute exacerbation C. difficile colitis Chronic back pain Chronic lung disease Colon cancer screening Constipation Cough Dermatitis Dextroscoliosis Diverticulitis Elevated LDL cholesterol level Encounter for Medicare annual wellness exam Encounter for routine adult health examination without abnormal findings Encounter to establish care Exposure to heavy metals Fever Follow up GERD (gastroesophageal reflux disease) Heart murmur Herpes History of elevated PSA History of pneumonia Hypercholesterolemia Hyponatremia Impacted cerumen of left ear Lumbar spondylosis Nausea Nausea Neuropathy On correction drug therapy Peripheral neuropathy Restless legs syndrome Right wrist tendinitis Ruptured intervertebral disc Shingles SOB (shortness of breath) on exertion Thumb pain Viral wart on right thumb Surgical History Surgical History History of back surgery Family History Family History Father Family history of chronic obstructive pulmonary disease Mother Family history of chronic obstructive pulmonary disease Social History Social History (Updated 06/10/23 @ 12:32 by Jia To RN) Smoking status: Never smoker Second hand tobacco smoke exposure: No Alcohol intake: current Drinks per week: 14 Alcohol use details: red wine Substance use: never Lack of Transportation: No Lack of Food: Never True Current Housing: I Have Housing Concerned About Future Housing: No Difficulty Paying Gas/Electric Bills: No Difficulty Paying for Meds: No Currently Unemployed: No Education: Bachelor's Degree Difficulty w/ Childcare or Family Care: No Living arrangements: with family Gender identity (if verbalized by the patient): Male Spiritual care concerns: No (Zoroastrian, not currently practicing) Meds Home Medications and Allergies Home Medications Medication Instructions Recorded Confirmed Type ondansetron 8 mg disintegrating 8 mg PO QID PRN nausea and 09/05/21 06/30/23 Rx tablet vomiting #90 tabs ropinirole 2 mg tablet 2 mg PO DAILY #90 tabs 0
--- NOTE | 2023-06-30 11:01 | WPDHPUPDATE1 ---
History and Physical Update Update Date/Time: 06/30/23 11:01 History and Physical has been reviewed, including an updated exam of the patient. There are NO changes in the patient's condition. Risks, benefits, and alternatives have been discussed and questions answered. Patient agrees to proceed with procedure.
--- NOTE | 2023-06-30 11:02 | W.PM.PROC2 ---
Procedure Note - Detailed Date of Procedure 06/30/23 Pre-op Diagnosis Lumbosacral radiculopathy, Lumbar spinal stenosis Post-op Diagnosis Same Procedure Performed right L5 selective nerve root block with local anesthetic and steroid under fluoroscopic guidance with contrast control. Surgeon Aydin Irby MD Anesthesia Local Description of Procedure INFORMED CONSENT: Risks, benefits and alternatives to the procedure were discussed in detail with the patient who expressed explicit understanding and consent to proceed. Patient was informed verbally and in written form regarding the risks associated with the procedure including the low risk of serious infection, bleeding/bruising, allergic reaction, nerve or organ injury, paralysis, procedural site pain or discomfort, worsening pain and/or mobility, failure to treat and/or disfigurement. The patient expressed explicit understanding and consent to proceed. All materials required for the procedure were available prior to procedure start. Site and side was marked prior to procedure and confirmed in the presence of the patient. PROCEDURE IN DETAIL: The patient was brought to the procedural suite and placed in the prone position. Patient was made comfortable with use of pillows under the head/chest, hips and ankles. Skin overlying the injection site was prepared broadly with ChloraPrep applicator and draped in a sterile manner. Aseptic technique was employed throughout. The endplates of the vertebral body at the site of interest were aligned in the AP view. Ipsilateral oblique angulation was utilized to better visualize the neuroforamen of interest. Local anesthesia was established by infiltration with approximately 5 mL of 2% lidocaine via a 1-1/2 inch 27-gauge needle. A 22-gauge 3.5 inch Jewel (pencil point) spinal needle was advanced until the needle approached the 6 o'clock position on the pedicle just superior to the exiting nerve root. on the right at L5-S1. Lateral view was utilized to confirm appropriate position of the needle tip within the superior and posterior portion of the respective foramen. In an AP view, 1 mL of Omnipaque 300 contrast medium was injected after negative aspiration for CSF, blood or other bodily fluid, showing appropriate neurogram without evidence of intravascular or intrathecal spread of contrast. Digital subtraction imaging was used with an additional 1ml of the same contrast medium to confirm absence of intravascular contrast spread. A 1.5mL solution containing 3 mg of betamethasone in 0.5% preservative-free bupivacaine was injected after negative repeat aspiration. Appropriate spread of the injectate was confirmed with washout of previously injected contrast. No parasthesias were elicited. Needle was removed completely intact without difficulty. Images were saved and documented in the patient chart. Patient's skin was cleaned and sterile bandage applied. The patient tolerated the procedure well. The patient was transported to the recovery area in stable condition where they were observed for an appropriate amount of time prior to discharge, without evidence of complication. The patient was instructed to avoid excessive activity for the next 48 hours, including climbing and frequent use of stairs. Showers only for 48 hours. They were instructed not to drive or operate heavy machinery for 24 hours. They are to monitor for severe headaches, fevers, chills, night sweats, erythema/swelling at the site or any other signs of infection, bleeding/bruising, bowel or bladder changes as well as new pain, weakness or numbness in the upper or lower extremity. Should they notice these changes, they are instructed to call our office immediately or report directly to the nearest Emergency Department if no answer or if after posted office hours. COMPLICATIONS: None COMMENTS: None CONTRAST WASTED: 26 mL Omnipaque 300. STEROID WASTED: 3 mg of betamethasone. Complications No immediate co
[2023-06-30 12:02] VITALS: BP 120/74; PULSE 63; RESP 13; O2SAT 98
[2023-06-30] MEDS: LIDOCAINE HCL 1% PF INJ 5 ML VIAL 1 ML INFILTRATE (12:04)
[2023-06-30 12:07] VITALS: BP 124/82; PULSE 55; RESP 13; O2SAT 98
[2023-06-30] MEDS: BUPivacaine HCL 0.5% 10 ML AMP INFILTRATE (12:11)
[2023-06-30] MEDS: BETAMETHASONE SODIUM PHOSPHATE PF INJ 6 MG/ML VIAL 3 MG INFILTRATE (12:11)
[2023-06-30 12:14] VITALS: BP 113/81; PULSE 62; RESP 16; O2SAT 100
== END 2023-06-30 12:31 | disposition home or self-care (01) ==
PROVIDERS: PCP Internal Medicine; Visit Provider Anesthesiology Pain Medicine
PROC: (CPT 64493; principal; 2023-06-30 10:00)
DX: M54.17 Radiculopathy, lumbosacral region (principal); M48.061 Spinal stenosis, lumbar region without neurogenic claudication
CPT/HCPCS: 64493; 99199

== ENCOUNTER 2023-08-18 08:49 | Outpatient (CLI) | payer MEDICARE, SELFPAY ==
--- NOTE | ~2023-08-18 | XR_ITS ---
XR ribs RT 2V w CXR 2V DATE: 08/18/2023 09:12 INDICATION: Right pleural chest pain. Fall one week ago. TECHNIQUE: PA and lateral chest. 4 views of the right rib cage. COMPARISON: 10/28/2021 2 view chest FINDINGS: There is osteopenia. No displaced right rib fracture is noted. Probable chronic interstitial lung changes are noted at the lung bases in particular. No consolidatio n, pleural effusion, pulmonary vascular congestion or pneumothorax. Heart size is within normal limits. There is mild aortic tortuosity. IMPRESSION: No displaced right rib fracture is noted Osteopenia Probable chronic interstitial changes involving predominantly the lower lung zones Reviewed, dictated and finalized at location B. IMPRESSION: No displaced right rib fracture is noted Osteopenia Probable chronic interstitial changes involving predominantly the lower lung zo kendal
== END 2023-08-18 08:50 | disposition home or self-care (01) ==
PROVIDERS: PCP Internal Medicine; Visit Provider Internal Medicine
DX: R91.8 Other nonspecific abnormal finding of lung field (principal); M85.89 Other specified disorders of bone density and structure, multiple sites; W19.XXXD Unspecified fall, subsequent encounter
CPT/HCPCS: 71046; 71100

== ENCOUNTER 2024-01-01 09:35 | Outpatient (CLI) | payer MEDICARE, SELFPAY ==
--- NOTE | ~2024-01-01 | CT_ITS ---
EXAMINATION: CT brain wo/w con DATE: 01/01/2024 10:23 INDICATION: Altered mental status TECHNIQUE: Computed tomography (CT) of the head was performed without and with 100 mL Omnipaque-350 i ntravenous contrast. Sagittal and coronal reconstructions were performed. The mA was adjusted accordi ng to patient size. Iterative reconstruction technique was employed. The dose-length product was 1362 .00 mGy-cm. COMPARISON: None FINDINGS: No acute intracranial hemorrhage, acute infarction or abnormal extra axial fluid collection. There is mild scattered white matter hypoattenuation consistent with chronic small vessel ischemic disease. S ymmetric prominence of the sulci consistent with mild age-appropriate diffuse cerebral volume loss. V entricles are normal and symmetric. No mass/mass effect. No abnormally enhancing brain lesions on the postcontrast imaging. The bilateral P1 segments are diminutive with majority of vessel flow to the p osterior cerebral artery supplied via patent bilateral posterior communicating arteries. Cerebral art eries appear otherwise unremarkable with no evident aneurysm, thrombosis or hemodynamically significa nt stenosis. The orbits and mastoid air cells are normal. Moderate mucosal thickening in the bilatera l maxillary sinuses both which demonstrates thickened sclerotic melchor and with some central calcifica tion within mucosal thickening the right maxillary sinus consistent with chronic sinusitis. There is also complete opacification of the right frontal sinus unchanged since CT dated 11/03/2022. IMPRESSION: 1. Normal aging brain. No acute intracranial process or abnormally enhancing brain lesions. 2. Chronic sinusitis. Reviewed, dictated and finalized at location A. IMPRESSION: 1. Normal aging brain. No acute intracranial process or abnormally enhancing br ain lesions. 2. Chronic sinusitis.
[2024-01-01 10:18] LABS: Estimated Glomerular Filt Rate > 60
[2024-01-01 10:35] LABS: Basophils Percent Auto 0.2 % (0.2-1.2); Hematocrit 39.1 % (42.0-52.0); Hemoglobin 13.1 g/dL (14.0-18.0); Immature Granulocyte Absolute 0.04 K/mm3 (0.00-0.031); Immature Granulocyte Percent A 0.7 % (0-0.5); Lymphocytes Absolute Auto 1.02 K/mm3 (0.9-3.2); Lymphocytes Percent Auto 17.3 % (18.3-44.2); Mean Corpuscular HGB Conc 33.5 g/dl (32-36); Mean Corpuscular Hemoglobin 29.7 pg (26-34); Mean Corpuscular Volume 88.7 fl (80-100); Monocytes Absolute Auto 0.7 K/mm3 (0.1-0.6); Monocytes Percent Auto 11.5 % (2.6-8.5); Neutrophils Absolute Auto 4.2 K/mm3 (1.3-6.7); Neutrophils Percent Auto 70.3 % (45.5-73.1); Platelet Count Result 295 k/mm3 (150-375); Red Blood Count 4.41 M/mm3 (4.6-6.20); Red Cell Distribution Width 12.1 % (11.5-14.5); White Blood Count 5.9 K/mm3 (4.5-10.0)
[2024-01-01 10:39] LABS: Ammonia < 9 umol/L (9-30)
[2024-01-01 10:42] LABS: Add Urine Microscopic? NO; Appearance Urine Clear (Clear); Bilirubin Urine Negative (Negative); Blood Urine Negative (Negative); Color Urine Yellow (Yellow); Glucose Urine UA Negative (Negative); Ketones Urine Negative (Negative); Leukocyte Esterase Ur Negative LEU/UL (Negative); Nitrate Urine Negative (Negative); Protein Urine Negative (Negative); Specific Grav Ur 1.014 (1.001-1.035); Urobilinogen Urine 0.2 mg/dL (<2.0); pH Urine 6.5 (5.0-9.0)
[2024-01-01 10:47] LABS: Alkaline Phosphatase 71 U/L (38-126)
[2024-01-01 11:07] LABS: Alanine Aminotransferase 17 U/L (6-50); Albumin Level 4.3 g/dL (3.5-5.1); Anion Gap 6 mmol/L (4-12); Aspartate Amino Transferase 27 U/L (17-59); Bilirubin,Total 0.7 mg/dL (0.2-1.3); Blood Urea Nitrogen 20 mg/dL (9-20); CRP < 0.5 mg/dL (<1.0); Calcium 8.7 mg/dL (8.4-10.2); Carbon Dioxide 30 mmol/L (22-30); Chloride 89 mmol/L (98-107); Estimated Glomerular Filt Rate > 60; Glucose 105 mg/dL (65-110); Potassium 5.1 mmol/L (3.4-5.0); Sodium 125 mmol/L (137-145)
[2024-01-01 11:09] LABS: Influenza A QL RT-PCR Negative (Negative); Influenza B QL RT-PCR Negative (Negative); RSV RNA, RT-PCR Negative (Negative); SARS-CoV-2 RNA PCR Negative (Negative)
[2024-01-01 11:34] LABS: Erythrocyte Sedimentation Rate 8 mm/hr (0-20)
[2024-01-06 10:18] LABS: Nortriptyline 95 mcg/L (50-150)
== END 2024-01-01 09:36 | disposition home or self-care (01) ==
PROVIDERS: PCP Internal Medicine; Visit Provider Internal Medicine
DX: R07.81 Pleurodynia (principal); R41.82 Altered mental status, unspecified; Z79.899 Other long term (current) drug therapy
CPT/HCPCS: 36415; 70470; 80053; 80335; 81003; 82140; 85025; 85652; 86140; 87637; G0480; Q9967

== ENCOUNTER 2024-03-14 00:19 | Day surgery (SDC) | payer MEDICARE, SELFPAY ==
--- NOTE | 2024-03-02 12:27 | PC.NURSE ---
Addendum entered by Marcie Uribe RN 03/02/24 16:18: INSTRUCTED PT TO USE SYMBICORT INHALER(BUDESONIDE-FORMOTEROL INHALER) AM OF SURGERY. HE RELAYS UNDERSTANDING. Original Note: Report to the Outpatient Waiting Room, entrance under the green pavilion located off [facility], at time __9:45AM on date ___03/14/24____. Planned Procedure Time: ___11:45AM .? Time changes happen often and if your time is changed the preop area will call you the afternoon before. - You and your visitor will be asked to self-screen and do not enter if you have any COVID symptoms. Please call surgeon if you need to reschedule. - A mask is optional within the hospital at this time. - No FOOD OR DRINK from midnight until time of surgery and no smoking. This includes no chewing gum, candy or mints. Take only the following medications with a SIP of water on the morning of surgery: ALBUTEROL INHALER AND ONDANSETRON NEEDED. DO NOT STOP ANY OF YOUR OTHER PRESCRIPTION MEDICATIONS PRIOR TO SURGERY EXCEPT THE FOLLOWING Medications to discontinue per physician HOLD IBUPROFEN 7 DAYS PRE-OP PER DR VILLALTA/PER PATIENT- LAST DOSE 03/06/24.____ Please no make-up, nail georgian, hairspray, perfume, deodorant, or body powder the day of surgery.? No jewelry (including any body piercings) or valuables the day of surgery, leave them at home.? Please take a shower or bath the night before, or the morning of, surgery with an antibacterial soap.? Wear comfortable, loose fitting clothing.? - Jewelry must be removed prior to entering the operating room.? Rings and piercings that are not removed may be cut off. - The hospital will not accept responsibility for valuables.? - Please leave all valuables, including medications, at home the day of surgery. If you are going home after surgery, a licensed belly dump driver must drive you home.? - NO public transportation without another adult if you receive anesthesia. - We recommend that an adult stay with you for 24 hours following discharge. - We also recommend that you do not drive, make important decision, drink alcoholic beverages, or take any drugs that were not prescribed by your health care provider for at least 24 hours after your discharge time. Follow any additional instructions given to you from your surgeon. Telephone instructions given to ____PATIENT and asked if any additional questions and then verbalized understanding. Patient advised to call surgeon office or pre surgery nurse liaison [phone] if any additional questions.
[2024-03-02 16:18] VITALS: BMI 25.1
--- NOTE | ~2024-03-14 | XR_ITS ---
EXAMINATION: XR fluoroscopy no charge DATE: 03/14/2024 12:55 INDICATION: Lumbar radiculopathy. Posterior neck 3 syndrome. TECHNIQUE: 3 intraoperative fluoroscopic views of the thoracic spine were obtained. I was not present . Fluoroscopy exposure time was 4 minutes 45 seconds. COMPARISON: None. FINDINGS: There are 2 epidural electrodes in thoracic spine. IMPRESSION: 1. Two epidural electrodes in thoracic spine. Reviewed, dictated and finalized at location A. [facility]
--- NOTE | 2024-03-14 05:40 | PM.HPGS ---
History of Present Illness History of Present Illness Consent: Risks, benefits, and alternatives have been discussed and questions answered. Patient agrees to proceed with procedure. Chief complaint: post-laminectomy syndrome, lumbar radiculopathy Narrative: Douglas Horn is a 74 year old male with chronic, recalcitrant and disabling bilateral low back and lower extremity pain secondary to postlaminectomy syndrome, degenerative spondylosis, lumbar spinal stenosis with lumbar radiculopathy with failure to respond to aggressive conservative measures including PT, oral and topical analgesics, opioid and nonopioid analgesics, rest, time and activity/behavioral modification over the past 1-2 years who presents for percutaneous placement of 2 x 8 contact Medtronic epidural spinal cord stimulation leads under fluoroscopic guidance for spinal cord stimulation trial. patient's pulmonary status appears to be in stable condition and unchanged since last pulmonary visit in December 2023. Denies fevers, chills, night sweats or increase in production of sputum or increased shortness of breath or activity intolerance. History of recent infected wound on IV antibiotics which have been discontinued with no evidence of recurrence. Patient otherwise at baseline physical and physiologic status. Review of Systems Review of Systems: Patient denies any new infectious, allergic, cardiopulmonary, neurologic or constitutional symptoms or changes in activity tolerance or exercise capacity including new or progressive SOB/CHAWLA, peripheral edema, productive cough, dysuria, nausea/vomiting, diarrhea, weight change, fevers/chills/night sweats, new or progressive neurologic deficit, cognitive or mood changes since last seen, except as documented in the HPI. All systems reviewed & are unremarkable except as noted in HPI and below [facility] [place] Past Medical History Medical History (Updated 01/01/24 @ 09:10 by Michelle Bullock, [facility]) Dizziness Grade I diastolic dysfunction Fall Rib pain on right side Gluteal tendinitis of right buttock Bilateral leg numbness BMI 27.0-27.9,adult Bilateral hip pain Peripheral neuropathy Shingles Constipation Abdominal bloating Nausea Encounter for routine adult health examination without abnormal findings Dermatitis Bronchiectasis with acute exacerbation Anogenital herpesviral infection, unspecified Right wrist tendinitis Neuropathy Hypercholesterolemia C. difficile colitis Abnormal CT scan, pelvis Fever GERD (gastroesophageal reflux disease) Nausea Chronic lung disease Diverticulitis BMI 24.0-24.9, adult Follow up BMI 25.0-25.9,adult LLQ abdominal pain Hyponatremia SOB (shortness of breath) on exertion Cough Dextroscoliosis Lumbar spondylosis Viral wart on right thumb Thumb pain Angular cheilitis Elevated LDL cholesterol level Chronic back pain Colon cancer screening History of pneumonia BMI 26.0-26.9,adult Encounter for Medicare annual wellness exam Heart murmur Impacted cerumen of left ear History of elevated PSA Ruptured intervertebral disc Restless legs syndrome Encounter to establish care Herpes 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 Exposure to heavy metals Surgical History Surgical History History of back surgery Family History Family History Father Family history of chronic obstructive pulmonary disease Mother Family history of chronic obstructive pulmonary disease Social History Social History Smoking status: Never smoker Second hand tobacco smoke exposure: No Alcohol intake: current Drinks per week: 14 Alcohol use details: 1-2 GLASSES OF RED WINE DAILY Substance use: never Substance use type: does not use Do You Feel Safe in your Home?: Yes Lack of Transportation: No Lack of Food: Never True Current Housing: I Have Housing Concerned About Future Housing: No Difficulty Paying Gas/Electric Bills: No Difficulty Paying for Meds: No Currently Unemployed: No Education: Bachelor's Degree Difficulty w/ Childcare or Family Care: No Living arrangements: with family Additional living arrangements comments: Gender identity (if verbalized by the patient): Male Spiritual care concerns: No Meds Home Medications and Allergies Home Medications ?Medication ?Instructions ?Recorded ?Confirmed ?Type esomeprazole magnesium 20 mg 20 mg PO DAILY 12/18/22 03/02/24 History capsule,delayed release fluticasone propionate 50 See Rx Instructions .Route 05/25/23 03/02/24 Rx mcg/actuation nasal .COMPLEX #96 grams spray,suspension ipratropium bromide 42 mcg (0.06 See Rx Instructions .Route 07/14/23 03/02/24 Rx %) nasal spray .COMPLEX #15 mL nortriptyline 25 mg capsule 25 mg PO HS 08/18/23 03/02/24 History ondansetron 8 mg disintegrating 8 mg PO QID PRN nausea and 09/29/23 03/02/24 Rx tablet vomiting #30 tabs alprostadil 10 mcg intracavernosal 10 mcg intra-cavernosal 3XW PRN 10/13/23 03/02/24 Rx kit erectile dysfunction #1 ea albuterol sulfate 90 mcg/actuation 2 inh inhalation Q4H PRN shortness 11/22/23 03/02/24 Rx aerosol inhaler of breath or wheezing #8.5 grams ropinirole 2 mg tablet 2 mg PO BID #180 tabs 01/01/24 03/02/24 Rx budesonide-formoterol HFA 160 2 puff inhalation BID 03/02/24 03/02/24 History mcg-4.5 mcg/actuation aerosol inhaler ibuprofen 200 mg capsule 600 mg PO Q6H PRN Pain 03/02/24 03/02/24 History Allergies Allergy/AdvReac Type Severity Reaction Status Date / Time No Known Allergies Allergy Verified 03/02/24 12:12 Exam Narrative: The patient's physical exam is essentially unchanged from prior examination on 10/05/2023. Specifically, patient demonstrates normal lung capacity, tidal volume and respiratory rate without wheezes, crackles, rales or rubs. Heart rate and rhythm are regular without murmurs, gallops or rubs. No JVD. Pulses 2+ globally without increasing peripheral edema. AAOx3 with no evidence of confusion, intoxication or altered mental state, NC/AT without acute distress or altered consciousness. Speech, cognition, mood, insight and judgment at baseline and within normal limits. Const: General: cooperative and well nourished; No acute distress Nutritional Appearance: average body habitus Orientation/consciousness: patient oriented x3 Limitations: no limitations Assessment and Plan Assessment and plan (1) Postlaminectomy syndrome: Code(s): M96.1 - Postlaminectomy syndrome, not elsewhere classified Status: Acute Assessment and Plan: proceed as planned with percutaneous placement of 2 epidural stimulation leads Under fluoroscopic guidance for spinal cord stimulation trial. (2) Lumbosacral radiculopathy: Code(s): M54.17 - Radiculopathy, lumbosacral region Status: Acute (3) Dorsalgia: Code(s): M54.9 - Dorsalgia, unspecified Status: Acute (4) Chronic back pain: Qualifiers: Back pain location: low back pain Back pain laterality: bilateral Sciatica presence: with sciatica Sciatica laterality: sciatica of left side Qualified Code(s): M54.42 - Lumbago with sciatica, left side; G89.29 - Other chronic pain Code(s): M54.9 - Dorsalgia, unspecified; G89.29 - Other chronic pain Status: Acute
--- NOTE | 2024-03-14 05:45 | WPDHPUPDATE1 ---
History and Physical Update Update Date/Time: 03/14/24 05:45 History and Physical has been reviewed, including an updated exam of the patient. There are NO changes in the patient's condition. Risks, benefits, and alternatives have been discussed and questions answered. Patient agrees to proceed with procedure.
--- NOTE | 2024-03-14 05:48 | P.OP_ITS ---
Procedure Note - Detailed Date of Procedure 03/14/24 Pre-op Diagnosis post-laminectomy syndrome, lumbar radiculopathy Post-op Diagnosis Same Procedure Performed Percutaneous Epidural Placement of Two Medtronic Spinal Cord Stimulation Leads under Fluoroscopic Guidance for Trial with Complex Intraoperative Programming (>1 Hour). 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 Anesthesia Local Description of Procedure INFORMED CONSENT: Risks, benefits and alternatives to the procedure were discussed in detail with the patient who expressed explicit understanding and consent to proceed. Patient was informed verbally and in written form regarding the risks associated with the procedure including the low risk of serious infection, meningitis, dural puncture requiring treatment or surgical repair, headache, severe bleeding/bruising, allergic reaction, nerve or organ injury, paralysis, procedural site pain or discomfort, worsening pain and/or mobility, failure to treat and/or disfigurement. The patient expressed explicit understanding and consent to proceed. All materials required for the procedure were available prior to procedure start. Site and side were marked prior to procedure and confirmed in the presence of the patient. PROCEDURE IN DETAIL: The patient was brought to the procedural suite and placed in the prone position. Patient was made comfortable with use of pillows under the head/chest, hips and ankles. Skin overlying the injection site was wiped with alcohol and prepared broadly with 3 applications of a ChloraSept scrub. Patient draped in the usual sterile manner. Aseptic technique was employed throughout. The endplates of the vertebral body at the site of interest were aligned in the AP view. Slight caudal tilt angulation was utilized to optimize visualization of the targeted posterior intervertebral foramen. Local anesthesia was established by infiltration with approximately 5 mL of 1% lidocaine via a 1- 1/2 inch 27-gauge needle. Deeper structures were anesthetized by infiltration of an additional 5 ml of 1% lidocaine via a 3.0 inch 22-gauge quincke spinal needle. A 16-gauge 4-inch curved epidural needle was advanced intermittently until appropriate loss of resistance to air was identified via plastic loss of resistance syringe at the T12-L1 level. Lateral view was used to confirm the appropriate positioning of the needle tip within the posterior epidural space. In the AP view, after negative aspiration for CSF, blood or other bodily fluid, a single 8-contact Medtronic epidural trial lead was advanced at midline until the distal electrode was even with the midportion of the T8 vertebral body in the AP view. A second needle was placed, and lead advanced, in a similar manner with final lead position just right of anatomic midline with distal electrode at the inferior endplate of T8. Each lead was programmed, stimulated and repositioned until appropriate parasthesias were obtained in both the bilateral distribution at the T9-10 interspace and in a distribution coinciding with the majority of the patient's typical pain topography at any point on either lead. No unanticipated parasthesias were elicited with needle or lead placement. Lead stylettes and then needles were carefully removed under live fluoroscopy, completely intact and without difficulty, to ensure lack of lead migration. Patient's skin, leads and contacts were cleaned with alcohol. Externalized portions of the leads were affixed to the skin utilizing a stress-relieving loop, a StayFix Catheter bandage, mastisol , large Tegaderm and Medipore tape. Lot numbers for all implanted materials were documented in the patient's chart. Images were saved and documented in the patient chart. The patient tolerated the procedure well. The patient was transported to the recovery area in stable condition where they were observed for an appropriate amount of time prior to discharge, without evidence of complication. The patient will return within 5-10 days for catheter removal and trial assessment. The patient was instructed to avoid excessive activity for the next 48 hours, including bending, lifting and twisting at the waist, climbing ladders and frequent use of stairs. Keep bandage clean, dry and intact for duration of trial. Sponge bathe only for duration of trial. They were instructed not to drive or operate heavy machinery at all for 24 hours or while stimulator is on for remainder of trial. They are to monitor for severe headaches, fevers, chills, night sweats, erythema/swelling at the site or any other signs of infection, bleeding/bruising, bowel or bladder changes as well as new pain, weakness or numbness in the upper or lower extremity. Should they notice these changes, they are instructed to call our office immediately or report directly to the nearest Emergency Department if no answer or if after posted office hours. COMPLICATIONS: None COMMENTS: None Pathology None sent Complications No immediate complications Condition Stable Disposition Same day [facility] Billing Surgery - Charge Forward: Surgery Billing
[2024-03-14 09:58] VITALS: BP 103/88; PULSE 71; RESP 18; TEMP 36.5; O2SAT 96; BMI 24.3
[2024-03-14] MEDS: BUPIVACAINE/EPINEPHRINE 0.5% 50 ML VIAL 10 ML INFILTRATE (11:55)
[2024-03-14] MEDS: LIDOCAINE 2% PF LOCAL INJ 5 ML VIAL 10 ML INFILTRATE ×2 (11:55→12:23)
--- NOTE | 2024-03-14 11:56 | P.PNAN_ITS ---
Anes - Initial Pre Proc Eval Procedure: Operation Date: 03/14/24 11:45 Proposed Procedures p Temporary Placement Medtronic Percutaneous Epidural Spinal Cord Stimulator Leads Times Two Under Fluoroscopic Guidance for Trial - Aydin Irby MD Date/Time: 03/14/24 11:56 Surgeon: Aydin Irby MD Pre Op Diagnosis: post-laminectomy syndrome, lumbar radiculopathy Patient Data Age: 74 Gender: M Height: 1.83 m Weight: 81.2 kg Last Vital Signs Temp 36.5 C 03/14/24 09:58 Pulse 71 03/14/24 09:58 Resp 18 03/14/24 09:58 BP 103/88 03/14/24 09:58 Pulse Ox 96 03/14/24 09:58 O2 Del Method Room Air 03/14/24 09:58 Allergies Allergy/AdvReac Type Severity Reaction Status Date / Time No Known Allergies Allergy Verified 03/14/24 10:58 Home Medications ?Medication ?Instructions ?Recorded ?Confirmed ?Type esomeprazole magnesium 20 mg 20 mg PO DAILY 12/18/22 03/02/24 History capsule,delayed release fluticasone propionate 50 See Rx Instructions .Route 05/25/23 03/02/24 Rx mcg/actuation nasal .COMPLEX #96 grams spray,suspension ipratropium bromide 42 mcg (0.06 See Rx Instructions .Route 07/14/23 03/02/24 Rx %) nasal spray .COMPLEX #15 mL nortriptyline 25 mg capsule 25 mg PO HS 08/18/23 03/02/24 History ondansetron 8 mg disintegrating 8 mg PO QID PRN nausea and 09/29/23 03/02/24 Rx tablet vomiting #30 tabs alprostadil 10 mcg intracavernosal 10 mcg intra-cavernosal 3XW PRN 10/13/23 03/02/24 Rx kit erectile dysfunction #1 ea albuterol sulfate 90 mcg/actuation 2 inh inhalation Q4H PRN shortness 11/22/23 03/14/24 Rx aerosol inhaler of breath or wheezing #8.5 grams ropinirole 2 mg tablet 2 mg PO BID #180 tabs 01/01/24 03/02/24 Rx budesonide-formoterol HFA 160 2 puff inhalation BID 03/02/24 03/14/24 History mcg-4.5 mcg/actuation aerosol inhaler ibuprofen 200 mg capsule 600 mg PO Q6H PRN Pain 03/02/24 03/14/24 History Patient hx anesthesia problems: none Family hx anesthesia problems: none Results Review: All pre-operative results and documents have been reviewed as part of the pre- operative evaluation. [facility] Past Medical History Medical History Dizziness Grade I diastolic dysfunction Fall Rib pain on right side Gluteal tendinitis of right buttock Bilateral leg numbness BMI 27.0-27.9,adult Bilateral hip pain Peripheral neuropathy Shingles Constipation Abdominal bloating Nausea Encounter for routine adult health examination without abnormal findings Dermatitis Bronchiectasis with acute exacerbation Anogenital herpesviral infection, unspecified Right wrist tendinitis Neuropathy Hypercholesterolemia C. difficile colitis Abnormal CT scan, pelvis Fever GERD (gastroesophageal reflux disease) Nausea Chronic lung disease Diverticulitis BMI 24.0-24.9, adult Follow up BMI 25.0-25.9,adult LLQ abdominal pain Hyponatremia SOB (shortness of breath) on exertion Cough Dextroscoliosis Lumbar spondylosis Viral wart on right thumb Thumb pain Angular cheilitis Elevated LDL cholesterol level Chronic back pain Colon cancer screening History of pneumonia BMI 26.0-26.9,adult Encounter for Medicare annual wellness exam Heart murmur Impacted cerumen of left ear History of elevated PSA Ruptured intervertebral disc Restless legs syndrome Encounter to establish care Herpes On longterm drug therapy Exposure to heavy metals Surgical History Surgical History History of back surgery Family History Family History Father Family history of chronic obstructive pulmonary disease Mother Family history of chronic obstructive pulmonary disease Social History Social History Smoking status: Never smoker Second hand tobacco smoke exposure: No Alcohol intake: current Drinks per week: 14 Alcohol use details: 1-2 GLASSES OF RED WINE DAILY Substance use: never Substance use type: does not use Do You Feel Safe in your Home?: Yes Lack of Transportation: No Lack of Food: Never True Current Housing: I Have Housing Concerned About Future Housing: No Difficulty Paying Gas/Electric Bills: No Difficulty Paying for Meds: No Currently Unemployed: No Education: Bachelor's Degree Difficulty w/ Childcare or Family Care: No Living arrangements: with family Additional living arrangements comments: Gender identity (if verbalized by the patient): Male Spiritual care concerns: No Anes - Eval Final PreProcedure Day of Procedure 03/14/24 11:56 Patient weight: normal Heart: regular rate and rhythm Lungs: clear to auscultation Airway: Mallampati scale class II Neurological: alert and oriented Last oral intake: >/= 8 hours ASA classification: III Emergent: no Anesthetic plan: proceed Anesthesia type and monitoring: general GIVS and standard monitoring Results Review: All pre-operative results and documents have been reviewed as part of the pre- operative evaluation. Informed Consent: The patient's anesthetic plan and its attendant risks and benefits were discussed with the patient/family/POA. Questions were solicited and answers provided to the satisfaction of the patient/family/POA.
[2024-03-14] MEDS: LACTATED RINGERS 1,000 ML 30 ML IV CONT (12:00)
[2024-03-14] MEDS: ceFAZolin 2 GM/D5W 50 ML 2 GM/50 ML BAG IVPB (12:03)
[2024-03-14 12:50] VITALS: BP 124/80; PULSE 80; RESP 16; O2SAT 97
[2024-03-14 13:20] VITALS: BP 113/71; PULSE 76; O2SAT 97
[2024-03-14 13:50] VITALS: BP 112/72; PULSE 65
[2024-03-14 14:20] VITALS: BP 120/75; PULSE 59
[2024-03-14 14:40] VITALS: BP 122/78; PULSE 68
--- OUTSIDE RECORDS SUMMARY | 2024-03-19 07:21 | XMS_ITS | Encounter Summary ---
Author Organization [facility] Address [address] [place] [address] Care Team Providers Care Chemical Plant Manager Name Role Phone Sukhdev Santos MD Primary Care Provider [phone] Reason for Visit * Reason Comments Lesions Patient c/o lesions right buttock Encounter Details Date Type Department Care Team (Late st Contact Info) Description 2019 1:20 PM JIG OPERATOR Office Visit [facility] [address] [address] Yahaira Nielsen MD [address] [facility] [address] [address] Actinic keratoses (Primary Dx); Seborrheic keratoses, inflamed; Multiple benign melanocytic nevi of upper and lower extremities and trunk; Xerosis cutis; Sebaceous cyst Social History Tobacco Use Types Packs/Day Years Used Date Smoking Tobacco: Never Smokeless Tobacco: Never Sex and Gender Information Value Date Recorded Sex Assigned at Not on file Gender Identity Not on file Sexual Orientation Not on file documented as of this encounter Patient Instructions * Patient Instructions* Thaddeus Shine MD - 2019 1:49 PM JIG OPERATOR Dry Skin Care Dry skin is abnormal scaling, flaking, and cracking of the upper layer of the skin and leads to itching and discomfort. CAUSES Dry skin is due to lack of water in the skin???s outer layer. Normally, oil glands in the skin produce an oily film, which traps moisture in the skin and prevents it from evaporating. There are several reasons why skin gets dry: low relative humidity levels, excessive contact with soaps and detergents, heredity, aging, and/or medically related conditions such as eczema, psoriasis, diabetes, and allergic reactions. PREVENTION AND TREATMENT Hot showers can make your skin dry. Try lukewarm baths/showers and limiting your bath or shower to less than five minutes. Soaps can make your skin dry. Limit the daily application of soap to ???essential areas?? such as the groin and underarms. Do not soap up arms, legs, back, chest, abdomen unless dirty ; plain waterwill cleanse theseareas sufficiently. Certain soaps, especially antibacterial soaps (Dial, Ivory, Zest, Ghanaian Spring) are especially drying. We recommend using moisturizing soaps or cleansers such as Aveeno Moisturizing Bar, Dove for sensitive skin, Vanicream, or Cetaphil. After your shower or bath, ???pat?? yourself dry and immediately apply moisturizer such as Aveeno Eczema Therapy Cream, Vaseline petroleum jelly or Aquaphor. Repeat this application of moisturizer two to four times daily as needed. If prone to acne or folliculitis, avoid ointments on the face and scalp. Apply in the direction of hair growth if applying to hair-bearing areas. We froze an irritated benign spot today called a seborrheic keratosis. Please follow the instructions below on how to take care of the spot we froze (post- cryotherapy care). POST CRYOTHERAPY CARE Redness and swelling may occur within minutes of thawing. Avoid any trauma to the treated site. A clear blister or a blood blister may appear on the skin in the treated area within 12 to 48 hours. If the blister is painful, you may drain the blister using a sterile pin. To sterilize the pin, hold it over the flame of a match or wipe the tip with an alcohol-soaked cotton ball. Poke a hole in the blister and drain thefluid. Do not remove the skin of the blister; this blister acts as a bandage for the area. After 24 hours, clean the areas twice a day with mild soap and water. Pat dry and apply petroleum jelly with a cotton swab. The petroleum jelly will help keep the area moist, help prevent a scab fromforming, and less the chance of infection. If you wish, you may cover the area with a bandage. Notify your physician if you have: Yellowish/greenish discharge from the treated area Increasing tenderness or pain Warmth of the area and/or fever over 101 F Red streaks up the arm or leg close to the treated area OPERATOR documented in this encounter Progress Notes * Yahaira Nielsen MD - 2019 1:46 PM CST Attending Physician's Note Resident's assessment and care plan reviewed; patient interviewed and examined. I agree with the history of present illness, physical exam, and assessment and plan as documented by the Resident today. Yahaira Nielsen MD OPERATOR * Thaddeus Shine MD - 2019 1:34 PM CST Chief Complaint Patient presents with ??? Lesions Patient c/o lesions right buttock HPI: Douglas Horn a 69 year old [place] male presents for skin exam. LV: [birth year] Concerns: 1) Lesion - R upper buttock - Onset early 2018 - Comes and goes - Used to drain, now just itchy - No previous or current tx Personal history of skin cancer: none PE: No acute distress. Mood clear/affect appropriate. Alert and oriented. Mucous membranes moist. Sclera anicteric. Full body skin exam was conducted to include the scalp, face, lips/teeth, lids/conjunctiva, ears, neck, chest, abdomen, back, groin/buttock, right and left hands and forearms, right and left leg and feet and was normal with the following exceptions: - Gritty scaly papule R nasal dorsum - Stuck on thin papules R forearm, L forearm, L ant shinx2 (one on L pathak ~1cm) - R upper buttock firm 8mm subcutaneous nodule - Numerous scattered, 2-5 mm, evenly pigmented, broderick to brown macules and papules on trunk and extremities A/P: Douglas was seen today for lesions. Diagnoses and all orders for this visit: Actinic keratoses - PROC DESTRUCTION OF PRE-MALIGNANT LESIONS - Premalignant potential discussed - Cryotherapy performed today (see procedure note), total = 1 R nasal dorsum - Wound care reviewed, post-cryo handout given - Sun protection reviewed Seborrheic keratoses, inflamed - PROC DESTRUCT BENIGN LESION NOT SKIN TAG - Benign, patient reassured - Due to irritation, cryotherapy peformed today (see procedure note) - Post cryotherapy handout given Multiple benign melanocytic nevi of upper and lower extremities and trunk - No atypical or concerning moles on exam today - Reviewed ABCDEs of melanoma - Sun protection reviewed - Annual FBSE recommended Xerosis cutis - Encouraged frequent moisturizing with bland emollients - Avoid irritating, fragrant, or drying products - Dry skin care handout given EIC, R upper buttock - PROC INJECTION, LESION - Discussed benefits/risks of removal, including trading cyst for scar - Patient desires injection toady - Inject 0.2cc ILK10 RTC in 1 year Thaddeus Shine MD Dermatology Resident, PGY-2 OPERATOR documented in this encounter Procedure Notes * Thaddeus Shine MD - 2019 4:36 PM CSTAssociated Order(s): PROC INJECTION, LESION Procedure(s): SD INTRALESIONAL INJECTION(S) 7 OR LESS Pre-Procedure Diagnose(s): Sebaceous cyst The side effects of intralesional triamcinolone (ILK) were discussed with patient, including petechiae and purpura, local lipoatrophy, striae and pigment change. Verbal consent obtained. 0.2ml of Triamcinolone 10mg/mL was injected in to 1 lesions on R upper buttock with 1 cc syringe and a 30 gauge needle. Patient tolerated injections well. [facility] [id number] (K10) [facility] [id number] (K40) Thaddeus Shine MD [facility] Dermatology Resident, PGY-2 OPERATOR Associated attestation - Yahaira Nielsen MD - 2019 5:13 PM JIG OPERATOR I performed the procedure. * Thaddeus Shine MD - 2019 1:55 PM CSTAssociated Order(s): PROC DESTRUCT BENIGN LESION NOT SKIN TAG Procedure(s): SD DESTRUCT BENIGN LESION, 1-14 Pre-Procedure Diagnose(s): Seborrheic keratoses, inflamed Diagnosis and treatment options discussed for ISK. Verbal consent obtained. Cryotherapy (Liquid Nitrogen) performed to 4 lesions (R forearm, L forearm, L ant shinx2 ) for 10 seconds each. Number of cycles: 1. Wound care reviewed and post-cryotherapy handout given. Thaddeus Shine MD Dermatology Resident, PGY-2 OPERATOR Associated attestation - Yahaira Nielsen MD - 2019 5:14 PM JIG OPERATOR I performed the procedure. * Thaddeus Shine MD - 2019 1:54 PM CSTAssociated Order(s): PROC DESTRUCTION OF PRE-MALIGNANT LESIONS Procedure(s): SD DESTROY PREMALIG LESION, 1ST LESION Pre-Procedure Diagnose(s): Actinic keratoses Diagnosis and treatment options discussed for AKs. Verbal consent obtained. Cryotherapy (Liquid Nitrogen) performed to 1 lesions (R nasal dorsum) for 6-7 seconds each. Number of cycles: 1. Wound care reviewed and post-cryotherapy handout given. Thaddeus Shine MD Dermatology Resident, PGY-2 2019 1:54 PM OPERATOR Associated attestation - Yahaira Nielsen MD - 2019 5:14 PM JIG OPERATOR I performed the procedure. documented in this encounter Plan of Treatment Not on file documented as of this encounter Procedures Procedure Name Priority Date/Time Associated Diagnosis Comments SD INTRALESIONAL INJECTION(S) 7 OR LESS Routine 2019 4:36 PM JIG OPERATOR Sebaceous cyst SD DESTRUCT BENIGN LESION, 1-14 Routine 2019 1:55 PM JIG OPERATOR Seborrheic keratoses, inflamed SD DESTROY PREMALIG LESION, 1ST LESION Routine 2019 1:54 PM JIG OPERATOR Actinic keratoses documented in this encounter Results * SD INTRALESIONAL INJECTION(S) 7 OR LESS (2019 4:36 PM JIG OPERATOR) Yahaira Serrano MD - 2019 4:36 PM JIG OPERATOR Thaddeus Shine MD ? 2019 ??4:37 PM The side effects of intralesional triamcinolone (ILK) were discussed with patient, including petechiae and purpura, local lipoatrophy, striae and pigment change. Verbal consent obtained. 0.2ml of Triamcinolone 10mg/mL was injected in to 1 lesions on R upper buttock with 1 cc syringe and a 30 gauge needle. Patient tolerated injections well. [facility] [id number] (K10) [facility] [id number] (K40) Thaddeus Shine MD [facility] Dermatology Resident, PGY-2 Yahaira Nielsen MD PROCEDURE/MINOR DEL ANGEL RGICAL ORDERABLES * SD DESTRUCT BENIGN LESION, 1-14 (2019 1:55 PM JIG OPERATOR) Yahaira Serrano MD - 2019 1:55 PM JIG OPERATOR Thaddeus Shine MD ? 2019 ??4:37 PM Diagnosis and treatment options discussed for ISK. Verbal consent obtained. Cryotherapy (Liquid Nitrogen) performed to 4 lesions (R forearm, L forearm, L ant shinx2 ) for 10 seconds each. Number of cycles: 1. Wound care reviewed and post-cryotherapy handout given. Thaddeus Shine MD Dermatology Resident, PGY-2 Yahaira Nielsen MD PROCEDURE/MINOR DEL ANGEL RGICAL ORDERABLES * SD DESTROY PREMALIG LESION, 1ST LESION (2019 1:54 PM JIG OPERATOR) Robert Serranoie, MD - 2019 1:54 PM JIG OPERATOR Thaddeus Shine MD ? 2019 ??1:55 PM Diagnosis and treatment options discussed for AKs. Verbal consent obtained. Cryotherapy (Liquid Nitrogen) performed to 1 lesions (R nasal dorsum) for 6-7 seconds each. Number of cycles: 1. Wound care reviewed and post-cryotherapy handout given. Thaddeus Shine MD Dermatology Resident, PGY-2 2019 1:54 PM Yahaira Nielsen MD PROCEDURE/MINOR DEL ANGEL RGICAL ORDERABLES documented in this encounter Visit Diagnoses Diagnosis Actinic keratoses- Primary Actinic keratosis Seborrheic keratoses, inflamed Multiple benign melanocytic nevi of upper and lower extremities and trunk Xerosis cutis Other specified disease of sebaceous glands Sebaceous cyst documented in this encounter Care Teams Chemical Plant Manager Relationship Specialty Start Date End Date Sukhdev Santos MD [address] [facility] [address] [facility] [address] [place] [address] PCP - General 12/15/18 documented as of this encounter
--- OUTSIDE RECORDS SUMMARY | 2024-03-19 07:21 | XMS_ITS | Encounter Summary ---
Author Organization [facility] Address [address] [place] [address]. [place] [address] [place] [address] Care Team Providers Care Human Service Coordinator Name Role Phone Anil Taylor MD Primary Care Provider [phone] Reason for Visit * Auth/Cert Specialty Diagnoses / Procedures Referred By Enio t Referred To Contact Diagnoses lumbar facet arthropathy Procedures INJECTION FACET JOINT L3, L4, L5 Referral ID Status Reason Start Date Expiration Date Visits Re quested Visits Authorized [id number] 1 1 Encounter Details Date Type Department Care Team (Late st Contact Info) Description 03/08/2021 1:20 PM INTERNAL CORROSION SPECIALIST - 03/08/2021 1:40 PM INTERNAL CORROSION SPECIALIST Surgery [facility] Interventional Pain [place] [address] [id number] Caridad Taylor MD [facility] [address] [place], [place] [id number] INJECTION FACET JOINT L3-4, L4-5 Surgery Details Date/Time Status Location OR Service Patient Class Case Class Case Type Trauma Case? 03/08/2021 1:20 PM Posted [facility] Pain Mgmt Pain Proc Rm Pain Medicine Short Stay/Outpa tient Surgery No Panel 1 Procedure LRB Anes Op Region Wound Class Comments INJECTION FACET JOINT L3-4, L4-5 Bilateral Local Spine Lumbar Clean BILATERAL FACET JOINT L3,4,5 [address]LOOD THINNERS REF[address] DR. TAYLOR SCHED. D.H. 03/04/2021 MCR/AETNA Surgeon Surgeon Role Service Panel Caridad Taylor MD Primary Pain Medicine 1 documented in this encounter Social History Tobacco Use Types Packs/Day Years Used Date Smoking Tobacco: Never Smokeless Tobacco: Never Alcohol Use Standard Drinks/Week Comments Yes 0 (1 standard drink = 0.6 oz pur e alcohol) socially Education Answer Date Recorded What is the highest level of school you have completed or the highest degree you have received? 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 No / Unsure 03/08/2021 12:31 PM INTERNAL CORROSION SPECIALIST documented as of this encounter Last Filed Vital Signs Vital Sign Reading Time Taken Comments Blood Pressure 104/63 03/08/2021 1:40 PM INTERNAL CORROSION SPECIALIST Pulse 65 03/08/2021 1:40 PM INTERNAL CORROSION SPECIALIST Temperature 36.6 ??C (97.8 ??F) 03/08/2021 12:[address] Respiratory Rate 20 03/08/2021 1:40 PM INTERNAL CORROSION SPECIALIST Oxygen Saturation 98% 03/08/2021 1:40 PM INTERNAL CORROSION SPECIALIST Inhaled Oxygen Concentration - - Weight 87.5 kg (193 lb) 03/08/2021 12:58 PM INTERNAL CORROSION SPECIALIST Height 182.9 cm (6') 03/08/2021 12:58 PM INTERNAL CORROSION SPECIALIST Body Mass Index 26.18 03/08/2021 12:58 PM INTERNAL CORROSION SPECIALIST documented in this encounter Discharge Instructions * Discharge Instructions* Laury Beverly RN - 03/08/2021 1:52 PM INTERNAL CORROSION SPECIALIST [place] Interventional Pain Management Discharge Instructions FOLLOW UP NEEDED, CALL FOR APPOINTMENT WHEN PAIN RETURNS AND PERSISTS WHAT TO DO TODAY: - Limit your activity today, but bedrest is not required - You may resume your normal activity tomorrow as tolerated - Do not drive a vehicle or operate hazardous equipment for the first 24 hours after your procedure. - You may experience numbness, tingling, and weakness in your extremities for several hours after your injection. Please be careful when walking or standing so you do not fall. - You may remove your bandage in the morning and you may shower. WHAT TO EXPECT OVER THE NEXT FEW DAYS TO A WEEK: - Any weakness or tingling typically wears off after several hours but you may have some tingling for several days after some injections - It is normal that once the numbing medicine wears off that you could be sore for several days before you notice relief. Pain should get better day by day. - The steroid will start working after 2-3 days and can take up to 2 weeks for it to fully work. - Everyone has different response to the injection depending on the amount of inflammation and diagnosis. HOW TO CONTROL YOUR PAIN: - Injection site soreness is normal and will subside in a few days. We suggest ice packs to the injection site for 10-20 at a time ever 2-3 hours. After 24 hours you may use heat if preferred or you may alternate heat and ice. - Your pain may be worse for a couple of days; you may use any medications that you were using before your visit. You may also use Tylenol, Motrin or Aleve if not contraindicated by your Primary CarePhysician. If you no longer have any prescribed medicine, please get your refill from the physicianwho fist prescribed it for you. - For patients who had a Radiofrequency Ablation your pain could last for up to 2 weeks. - We are an Interventional pain management. We do not prescribe pain medicine. COMMON SIDE EFFECTS OF STEROIDS: - You may experience warm, flushing sensation with redness in your face, neck and chest. - You may feel anxious, jittery, irritable or have trouble sleeping. - You may have increased hunger or menstrual changes (for women). - If you are a diabetic you may have increased blood sugars. If you do and are unable to control please call your doctor who manages your diabetes. - All side effects are temporary and should subside in approximately a week. WHEN TO CALL THE DOCTOR AND HOW TO REACH US: Call [phone] ext. [phone] for scheduling, insurance questions or speak with a nurse. Our hours are Thursday- 8:00am-4:00pm ??? Call the number above for any bleeding/drainage/redness/swelling at the injection site, severe pain, persistent chills, fever over 101 or greater, or new or different pain or numbness. If you areunable to reach us call 911 or go to the nearest emergency room. ??? If you have shortness of breath, fast heart rate, throat/tongue swelling call 911 or go to the nearest emergency room. ANY NEW BOWEL OR BLADDER INCONTINENCE ISSUES OR NUMBNESS TO PELVIC REGION PLEASE GO TO THE EMERGENCY ROOM IMMEDIATELY! RNAL CORROSION SPECIALIST documented in this encounter Medications at Time of Discharge albuterol sulfate HFA 108 (90 Base) MCG/ACT inhaler 01/28/2021 azithromycin 500 MG tablet Take 500 mg by mouth daily. Thursday, Thursday and Thursday celecoxib 200 MG capsule Take 200 mg by mouth daily. fluticasone propionate 50 MCG/ACT nasal spray SPRAY 2 SPRAYS IN EACH NOSTRIL TWICE DAILY 10/29/2020 ipratropium 0.06 % nasal spray USE 2 SPRAYS IN EACH NOSTRIL TWICE A DAY 11/02/2020 nystatin [id number] UNIT/ML suspension 02/19/2021 pregabalin 150 MG capsule Take 150 mg by mouth 2 (two) times daily. SYMBICORT 160-4.5 MCG/ACT inhaler 12/31/2020 tiZANidine 4 MG tablet Take 4 mg by mouth daily. valACYclovir 500 MG tablet Take 500 mg by mouth daily. methylPREDNISolo ne, RAJAT, 4 MG tablet 01/29/2021 1 predniSONE 10 mg tablet 02/25/2021 1 Pregabalin 300 MG Cap Take 1 tablet by mouth daily. 1 tiZANidine HCl 4 MG Cap Take 1 capsule by mouth nightly at bedtime. 06/21/2020 1 valACYclovir 500 MG tablet Take 500 mg by mouth daily. 1 documented as of this encounter H&P Notes * Caridad Taylor MD - 03/08/2021 12:55 PM CST HISTORY AND PHYSICAL INTERVAL NOTE: I have reviewed Douglas Horn History & Physical which was performed within the past 30 days. After examining Douglas Horn, no change has occurred in the patient's condition since the H&P was completed. Informed Consent Discussion: Risks, benefits, alternatives as well as the consequences of not performing the surgery/procedure were discussed with the patient and/or family/personal apparel trimmings sales representative. Questions were answered and the patient/family/personal apparel trimmings sales representative verbalized understanding and desires to proceed. Previous Adverse Experience with Sedation, Analgesia, or Anesthesia? No Risk benefits and alternate treatments were discussed. Signed: CARIDAD TAYLOR MD 12:55 PM RNAL CORROSION SPECIALIST Source Note - TracyAIDA Weinstein - 03/04/2021 10:15 AM INTERNAL CORROSION SPECIALIST Summary: Low back pain that radiates to the left gluteal region, left post leg, right low back painthat radiiates to the lateral right leg. Interventional Pain Management History & Physical Chief Complaint: Low back pain that radiates to the left gluteal region, left post leg, right low back pain that radiiates to the lateral right leg, intermittent numbness of the right leg HPI: Douglas Horn is a 71-year-old male who is seen today for reevaluation of low back pain. He continues to experience low back pain that radiates left gluteal region, posterior left leg, right low back pain that radiates lateral right leg with intermittent numbness of the right leg. He underwent bilateral L5-S1 lumbar transforaminal epidural steroid injection on 11/13/2020 and 12/04/2020, followed by right L4-5, 5 S1 lumbar transforaminal epidural steroid injection completed on 01/02/2021. He does believe that the bilateral L5-S1 lumbar transforaminal epidural steroid injections provided more improvement. He said he continues to experience low back pain, although it is more noticeable to the right than left. Associated symptoms includes the numbness and tingling of the lateral right leg.He denies urinary or bowel incontinence, denies anesthesia in the saddle region. He said that last Thursday he had been doing some yard work, using a chainsaw, tolerated these activities well; however on Thursday he went shopping with his , found the walking difficult, and noticed that numbness down the right leg occurred with a shopping activity. He denies urinary or bowel incontinence, deniesanesthesia in the saddle region. He does state he has been applying ice, which provides some improvement. He has had a Pseudomonas infection, follows with Dr. Marino at [facility], is currently on a regimen of levofloxacin, said he has been holding the tizanidine, Celebrex, Lyrica, although he is notsure these medications provide improvement. Past Medical History: Diagnosis Date ??? Arthritis ??? Asthma ??? Heavy metal poisoning Initally diagnosed 5 years ago ??? Peripheral neuropathy History reviewed. No pertinent surgical history. (Not in a hospital admission) No Known Allergies Social History Socioeconomic History ??? Marital status: Spouse name: Archana ??? Number of children: Not on file ??? Years of education: Not on file ??? Highest education level: Bachelor's degree (e.g., BA, AB, BS) Occupational History ??? 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 Smoking status: Never Smoker ??? Smokeless tobacco: Never Used Substance and Sexual Activity ??? Alcohol use: Yes Comment: socially ??? Drug use: Never ??? Sexual activity: Not on file Other Topics Concern ??? Service Not Asked ??? Blood Transfusions Not Asked ??? Caffeine Concern Not Asked ??? Occupational Exposure Not Asked ??? Hobby Hazards Not Asked ??? Sleep Concern Not Asked ??? Stress Concern Not Asked ??? Weight Concern Not Asked ??? Special Diet Not Asked ??? Back Care Not Asked ??? Exercise Not Asked ??? Bike Helmet Not Asked ??? Seat Belt Yes ??? Self-Exams Not Asked ??? Wheelchair No ??? Walker No ??? Upper extremity braces/slings No ??? Lower extermity braces/slings No ??? Self Care Yes Social History Narrative Lives at home with his Social Determinants of Health Financial Resource Strain: Not on file Food Insecurity: Not on file Transportation Needs: Not on file Physical Activity: Not on file Stress: Not on file Social Connections: Not on file Intimate Partner Violence: Not on file Family History Family history unknown: Yes Review of Systems HENT: Negative. Eyes: Negative. Respiratory: Negative. Cardiovascular: Negative. Gastrointestinal: Negative. Denies incontinence of bowels Endocrine: Negative. Genitourinary: Negative. Denies urinary incontinence Skin: Negative. Allergic/Immunologic: Negative. Neurological: Low back pain that radiates to the left gluteal region, left post leg, right low back pain that radiiates to the lateral right leg, with intermittent numbness of the lateral right leg Hematological: Negative. Psychiatric/Behavioral: Negative. VITALS: Temperature 97.1, blood pressure 110/73, heart rate 70 bpm, respiratory rate 20, SPO2 98% Diagnostic Workup: He had an MRI of the lumbar spine at [facility] in [place], [place] on10/04/2020. The radiologist report was reviewed and is as follows: Findings: There is 15 degree dextroscoliosis of the thoracolumbar spine. There is mild chronic anterior wedging of the T12 and L1 vertebral bodies. There is mildly decreased disc height at L3-L4 and severely decreased disc height at L4- L5 with endplate remodeling. The distal spinal cord signal intensity is normal. The conus medullaris is at L1. L1-L2: The disc is bulging and has an annular fissure. There is severe right and moderate left facet joint osteoarthritis. There is mild bilateral neuroforaminal stenosis. There is mild central canalstenosis. L2-3: There is left foraminal protrusion. There is severe bilateral joint osteoarthritis. There is mild left neuroforaminal stenosis. There is no central canal stenosis. L3-L4: Disc is bulging. There is severe bilateral facet joint osteoarthritis. There is mild right moderate left neuroforaminal stenosis. There is mild central canal stenosis. L4-5: The disc is bulging. There is severe bilateral facet joint osteoarthritis. There is moderate right and mild left neuroforaminal stenosis. There is mild central canal stenosis. L5-S1: The disc is bulging with superimposed right subarticular zone extrusion. There is severe bilateral facet joint osteoarthritis. There is severe right and mild left neuroforaminal stenosis. There is mild central canal stenosis. Impression: 1. Severe lumbar spondylosis. 2. Thoracolumbar dextroscoliosis. ? He had an x-ray of the lumbar spine at [facility] in [place], [place] on 10/04/2020. The radiologist report was reviewed and is as follows: Findings: Bone alignment is normal. There is expansion of the S2 segment with fatty marrow, likely benign. There is diffuse fatty replacement of the bone marrow. There is severe lumbar spondylosis. There is mild osteoarthritis of the sacroiliac joints characterized by tiny marginal osteophytes. The prostate is mildly enlarged. Impression: 1. Mild osteoarthritis of the sacroiliac joints. No evidence of inflammatory arthropathy. 2. Severe lumbar spondylosis. Physical Exam BMI: 26.2 the patient is alert and oriented x 3 and follows directions and answers questions appropriately. His skin is warm and dry. Mood and affect: Calm, pleasant, and cooperative. General examination of his heart, lungs and abdomen was unremarkable. The patient rises from the seated position without difficulty. His gait is steady, no difficulty with heel and toe walk. No scarring, redness, lesions, or sign of infection noted to the lumbar region. He experiences pain with lumbar facet loading. He also experiences tenderness palpation of the right SI joint. Range of motion of his back is within normal limits with extension, forward flexion and left and right lateral rotation. Sitting straight leg lift is negative bilaterally. Motor strength to lower extremities is 5/5 with hip flexion, knee extension and flexion, ankle dorsiflexion, plantar flexion and hallux extension bilaterally. Nocolor change, redness, warmth, edema or discrepancy in calf size noted to the lower extremities. Sensation to palpation of the lower extremities is equal and intact bilaterally. No clonus and downgoing Babinski's bilaterally. Patellar and achilles reflexes are 2/4 bilaterally. Dorsalis pedis pulsesare +2 bilaterally. Capillary refill of the lower extremities is less than 3 seconds bilaterally. Impression: Lumbar facet arthropathy Recommendations: I spent 40 minutes today reviewing the patient's medical record, obtaining history, performing an exam, ordering medications, tests, and/or procedures, documenting in the medical record, counseling and educating the patient/family/caregiver, reviewing and communicating test results and coordinationof care. He has been experiencing low back pain that radiates to the left gluteal region, left postleg, right low back pain that radiiates to the lateral right leg.he does experience pain with lumbar facet loading. We discussed a bilateral L3, 4, 5 lumbar facet joint injections as a treatment option. The procedure was described in detail as were the risks, benefits and alternative treatments, and he verbalized understanding. Risks including, but not limited to infection, elevations in blood glucose levels, permanent neurological deficit due to nerve root injury, bleeding, anaphylaxis, flushing, cerebral spinal fluid leak, paralysis, spinal cord injury, thinning of the skin, thinning of thebones, muscle cramping, were reviewed with him and pain verbalized understanding. He is agreeable to a plan to move forward with the lumbar facet joint injection procedure, which will be completed byDr. Taylor at his next office visit. We will consider right SI joint injection as a potential future treatment option as well. We did discuss neurosurgical consultation as an option, he said he wouldbe researching it, and would notify this office or he would like the referral to be forwarded. It was my pleasure to participate in his care. Thank you for referring this very pleasant patient. AIDA POLK CC: Anil Taylor MD Cosigned by Caridad Taylor MD at 03/04/2021 12:26 PM INTERNAL CORROSION SPECIALIST RNAL CORROSION SPECIALIST RNAL CORROSION SPECIALIST documented in this encounter OR Notes * Op Note - Caridad Taylor MD - 03/08/2021 1:58 PM CST PROCEDURE: LUMBAR INTRAARTICULAR FACET JOINT INJECTION UNDER FLUOROSCOPY LEVELS: Bilateral L3-4 and L4-5 PREOPERATIVE DIAGNOSIS: LUMBAR FACET ARTHROPATHY POSTOPERATIVE DIAGNOSIS: SAME PREOP SURGEON: CARIDAD TAYLOR MD CHIEF COMPLAINT: LOW BACK PAIN RISKS, BENEFITS, ALTERNATE TREATMENTS DISCUSSED. WRITTEN CONSENT OBTAINED. PATIENT TAKEN TO PROCEDURE ROOM PLACED IN PRONE POSITION. PILLOW UNDER ABDOMEN TO REDUCE LUMBAR LORDOSIS. STERILE PREP AND DRAPE OF LUMBOSACRAL SPINE PERFORMED. ASA STANDARD MONITORS APPLIED. Risks including, but not limited to infection, permanent neurological deficit due to nerve root injury, bleeding, anaphylaxis, flushing, cerebral spinal fluid leak, paralysis, spinal cord injury, thinning of the skin, thinning of the bones, muscle cramping. PROCEDURE: VERTEBRAL BODIES WERE SQUARED. C ARM MOVED LATERALLY TO BRING THE MEDIAL BRANCH TARGET ZONES INTO VIEW. SKIN AND SUBCUTANEOUS TISSUES ANESTHETIZED WITH 1% LIDOCAINE. 22 G 3 ?? INCH SPINAL NEEDLES WITH BENT TIPS WERE ADVANCED TO THE FACET JOINT AT THE APPROPRIATE LEVEL. TARGETING THE IAP OF L3 AND THE SAP OF L4 the L3-4 joint bilaterally, IAP of L4 and the SAP of L5 for the L4-5 joints bilaterally. APPROPRIATE NEEDLE TIP POSITIONS WERE CONFIRMED IN THE AP, LATERAL, AND OBLIQUE VIEWS. AFTER NEGATIVE ASPIRATION, 1 CC OF CONTRAST WAS INJECTED CONFIRMING POSITIVE ARTHROGRAM FOR EACH LEVEL . NEGATIVE ASPIRATION PRIOR TO 4OMG KENALOG AND 2 CC 0.25% BUPIVACAINE WASINJECTED AT EACH LEVEL. NEEDLES WERE REMOVED. NO COMPLICATIONS. POST PROCEDURE: PATIENT TOLERATED PROCEDURE WELL AND OBSERVED PRIOR TO DISCHARGE. DISCHARGED IN STABLE CONDITION WITH APPROPRIATE POST-PROCEDURE INSTRUCTIONS. PATIENT WILL BE CALLED OVER THE NEXT FEW DAYS FOR FOLLOWUP. RNAL CORROSION SPECIALIST documented in this encounter Plan of Treatment Not on file documented as of this encounter Procedures Procedure Name Priority Date/Time Associated Diagnosis Comments INJECTION FACET JOINT 03/08/2021 1:40 PM INTERNAL CORROSION SPECIALIST lumbar facet arthropathy XR PAIN CLINIC C-ARM Today 03/08/2021 12:35 PM INTERNAL CORROSION SPECIALIST documented in this encounter Results * XR PAIN CLINIC C-ARM (03/08/2021 12:35 PM INTERNAL CORROSION SPECIALIST) Narrative Radiology, Technologist - 03/08/2021 12:35 PM INTERNAL CORROSION SPECIALIST This report does not contain a radiologist's interpretation. Please review associated procedure and/or operative report. us Caridad Taylor MD GENERAL IMAGING Final Result documented in this encounter Visit Diagnoses Not on filedocumented in this encounter Administered Medications Inactive Administered Medications - up to 3 most recent administrations Medication Order MAR Action Action Date Dose Rate Site BUpivacaine (MARCAINE) 0.25 % injection As needed, Starting on Thu03/08/21 at 1350, Until Thu03/08/21 at 1354, Intra-Op Given 03/08/2021 1:51 PM INTERNAL CORROSION SPECIALIST 8 mLs Lumbar Spine chlorhexidine (PERIDEX) 0.12 % solution 15 mL 15 mL, Mouth/Throat, PRN, Prior to surgery, 1 dose, Starting on Thu03/08/21 at 1301, Until Thu03/08/21 at 1602, Patient to perform oral care first. Swish/Gargle in mouth for 30 seconds, and then discard, prior to going to surgery/ If ventilated use saturated swab to clean oral cavity., Pre-Op iopamidol (ISOVUE-M 300) 61 % injection As needed, Starting on Thu03/08/21 at 1349, Until Thu03/08/21 at 1354, Intra-Op Given 03/08/2021 1:49 PM INTERNAL CORROSION SPECIALIST 5 mLs Lumbar Spine lidocaine (PF) (XYLOCAINE) 1 % injection As needed, Starting on Thu03/08/21 at 1345, Until Thu03/08/21 at 1354, Intra-Op Given 03/08/2021 1:45 PM INTERNAL CORROSION SPECIALIST 2 mLs Back triamcinolone acetonide (KENALOG-40) injection As needed, Starting on Thu03/08/21 at 1351, Until Thu03/08/21 at 1354, Intra-Op Given 03/08/2021 1:51 PM INTERNAL CORROSION SPECIALIST 160 mg Lumbar Spine documented in this encounter Active and Recently Administered Medications Times are shown in INTERNAL CORROSION SPECIALIST. PRN Medication Order 03/06/2021 03/07/2021 03/08/2021 BUpivacaine (MARCAINE) 0.25 % injection (CANCELED) As needed, Starting on Thu03/08/21 at 1350, Until Thu03/08/21 at 1354, Intra-Op 1351 (Given - Provid er: Caridad Taylor MD) chlorhexidine (PERIDEX) 0.12 % solution 15 mL 15 mL, Mouth/Throat, PRN, Prior to surgery, 1 dose, Starting on Thu03/08/21 at 1301, Until Thu03/08/21 at 1602, Patient to perform oral care first. Swish/Gargle in mouth for 30 seconds, and then discard, prior to going to surgery/ If ventilated use saturated swab to clean oral cavity., Pre-Op iopamidol (ISOVUE-M 300) 61 % injection (CANCELED) As needed, Starting on Thu03/08/21 at 1349, Until Thu03/08/21 at 1354, Intra-Op 1349 (Given - Provid er: Caridad Taylor MD) lidocaine (PF) (XYLOCAINE) 1 % injection (CANCELED) As needed, Starting on Thu03/08/21 at 1345, Until Thu03/08/21 at 1354, Intra-Op 1345 (Given - Provid er: Caridad Taylor MD) triamcinolone acetonide (KENALOG-40) injection (CANCELED) As needed, Starting on Thu03/08/21 at 1351, Until Thu03/08/21 at 1354, Intra-Op 1351 (Given - Provid er: Caridad Taylor MD) documented in this encounter Care Teams Human Service Coordinator Relationship Specialty Start Date End Date Anil Taylor MD [address] [place] [address] PCP - General INTERNAL MEDICINE 10/17/20 documented as of this encounter
--- OUTSIDE RECORDS SUMMARY | 2024-03-19 07:21 | XMS_ITS | Encounter Summary ---
Author Organization [facility] Address [address] [place] [address]. 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 No / Unsure 03/08/2021 12:31 PM HUMAN RESOURCES OFFICE ASSISTANT documented as of this encounter Plan of Treatment Not on file documented as of this encounter Visit Diagnoses Not on filedocumented in this encounter Care Teams Clock Maker Relationship Specialty Start Date End Date Anil Gupta MD [address] [place] [address] PCP - General INTERNAL MEDICINE 10/17/20 documented as of this encounter
--- OUTSIDE RECORDS SUMMARY | 2024-03-19 07:21 | XMS_ITS | Clinical Summary ---
Author Organization [facility] Address [address] [place] [address] Care Team Providers Care Credit Department Manager Name Role Phone Sukhdev Santos MD Primary Care Provider [phone] Source Comments [facility],non-owned Affiliates and Associated Physician Practices is amultiple site organization consisting of ambulatory clinics and hospital sitesin [place], [place], [place] and [place]. This disclosure is being madepursuant to the Care Everywhere program and may not contain all information available regarding this patient. Last updated 17.[facility] Allergies No known active allergies Medications * Be aware that medications may not be up to date on this document. Alwaysverify current medications with the patient. Medication Sig Dispensed Refills Start Date End Date Status pregabalin (LYRICA) 150 MG capsule Take 150 mg by mouth 2 times daily Active valACYclovir (VALTREX) 500 MG tablet Take 500 mg by mouth once daily Active Active Problems No known active problems Family History Medical History Relation Name Comments Cancer - Skin, Melanoma Neg Hx Cancer - Skin, Non Melanoma Neg Hx Social History Tobacco Use Types Packs/Day Years Used Date Smoking Tobacco: Never Smokeless Tobacco: Never Sex and Gender Information Value Date Recorded Sex Assigned at Not on file Gender Identity Not on file Sexual Orientation Not on file Plan of Treatment Health Maintenance Due Date Last Done Comments COLOGUARD (AGES 45-75) - COL ON CA SCREENING 1950 COLON MONITORING 1950 COLONOSCOPY - COLON CA SCREENING 1950 CT COLONOGRAPHY - COLON CA SCREENING 1950 Colorectal Cancer Screening 1950 FIT - COLON CA SCREENING 1950 FLEX SIG - COLON CA SCREENING 1950 LIPID TESTING 1950 HEPATITIS C SCREENING 01/26/1969 DTAP/TDAP/TD VACCINES (1 - Tdap) 1970 ZOSTER VACCINE (1 of 2) 2001 PNEUMOCOCCAL VACCINE 65+ (1 of 1 - PCV) 02/01/2016 DEPRESSION SCREENING 03/30/2023 COVID-19 VACCINE (1 - 2023-2 5 season) 2023 INFLUENZA VACCINE (#1) 2023 Respiratory Syncytial Virus (RSV) Vaccine Pt: or over 60 yrs (1 - 1-dose 75+ series) 2026 HEPATITIS B VACCINE Aged Out No longe r eligible based on patient's age to complete this topic HIB VACCINE Aged Out No longer eligi ble based on patient's age to complete this topic HPV VACCINE Aged Out No longer eligi ble based on patient's age to complete this topic MENINGOCOCCAL VACCINE Aged Out No greg marquez eligible based on patient's age to complete this topic Care Teams Credit Department Manager Relationship Specialty Start Date End Date Sukhdev Santos MD [address] [place] [address] PCP - General 12/15/18
--- OUTSIDE RECORDS SUMMARY | 2024-03-19 07:21 | XMS_ITS | Referral Summary ---
Author Organization [facility] Address [address] [place] [address] Care Team Providers Care Enterprise Sales Person Name Role Phone Sukhdev Santos MD Primary Care Provider [phone] Source Comments [facility] [employer],non-owned Affiliates and Associated Physician Practices is amultiple site organization consisting of ambulatory clinics and hospital sitesin [place], [place], [place] and [place]. This disclosure is being madepursuant to the Care Everywhere program and may not contain all information available regarding this patient. Last updated 17.[facility] [employer] Allergies No known active allergies Medications * [...] Active Active Problems No known active problems Social History Tobacco Use Types Packs/Day Years Used Date Smoking Tobacco: Never Smokeless Tobacco: Never Sex and Gender Information Value Date Recorded Sex Assigned at Not on file Gender Identity Not on file Sexual Orientation Not on file Plan of Treatment Not on file Care Teams Enterprise Sales Person Relationship Specialty Start Date End Date Sukhdev Santos MD [address] [place] [address] PCP - General 12/15/18
--- OUTSIDE RECORDS SUMMARY | 2024-03-19 07:21 | XMS_ITS | Encounter Summary ---
Author Organization [facility] Address [address] [place] [address]. 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 No / Unsure 03/19/2021 9:29 AM PRE SALES TECHNICAL CONSULTANT documented as of this encounter Plan of Treatment Not on file documented as of this encounter Visit Diagnoses Not on filedocumented in this encounter Care Teams Director Of Diversity And Inclusion Relationship Specialty Start Date End Date Anil Gupta MD [address] [place] [address] PCP - General INTERNAL MEDICINE 10/17/20 documented as of this encounter
--- OUTSIDE RECORDS SUMMARY | 2024-03-19 07:21 | XMS_ITS | Clinical Summary ---
Author Organization [facility] Address [address] [place] [address]. [place], [place] [id number] [place] [address] Care Team Providers Care Finished Goods Stock Clerk Name Role Phone Anil Gupta MD Primary Care Provider [phone] Allergies No known active allergies Medications valACYclovir 500 MG tablet Take 500 mg by mouth daily. Active celecoxib 200 MG capsule Take 200 mg by mouth daily. Active tiZANidine 4 MG tablet Take 4 mg by mouth daily. Active azithromycin 500 MG tablet Take 500 mg by mouth daily. Thursday, Thursday and Thursday Active SYMBICORT 160-4.5 MCG/ACT inhaler 1 Active fluticasone propionate 50 MCG/ACT nasal spray SPRAY 2 SPRAYS IN EACH NOSTRIL TWICE DAILY 1 Active ipratropium 0.06 % nasal spray USE 2 SPRAYS IN EACH NOSTRIL TWICE A DAY 1 Active pregabalin 150 MG capsule Take 150 mg by mouth 2 (two) times daily. 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 Not on file Not on f ile Last Filed Vital Signs Vital Sign Reading Time Taken Comments Blood Pressure 120/68 03/19/2021 9:34 AM CREDIT COLLECTIONS MANAGER Pulse 83 03/19/2021 9:34 AM CREDIT COLLECTIONS MANAGER Temperature 36.8 ??C (98.2 ??F) 03/19/2021 9:34 AM CS T Respiratory Rate 20 03/19/2021 9:34 AM CREDIT COLLECTIONS MANAGER Oxygen Saturation 99% 03/19/2021 9:34 AM CREDIT COLLECTIONS MANAGER Inhaled Oxygen Concentration - - Weight 85 kg (187 lb 6.4 oz) 03/19/2021 9:34 AM CREDIT COLLECTIONS MANAGER Height 182.9 cm (6') 03/19/2021 9:34 AM CREDIT COLLECTIONS MANAGER Body Mass Index 25.42 03/19/2021 9:34 AM CREDIT COLLECTIONS MANAGER Plan of Treatment Health Maintenance Due Date Last Done Comments Colorectal Cancer Screening Colonoscopy (10 Years) 1951 Hepatitis C 1969 DTaP, Tdap and Td Vaccines ( 1 - Tdap) 1970 Zoster Vaccines (1 of 2) 2001 RSV Immunization or 60+ Years (1 - 1-dose 60+ series) 2011 Annual Medicare Wellness Visit 02/01/2016 Pneumococcal Vaccine: 65+ Years (2 of 2 - PPSV23 or PCV20) 02/24/2021 02/25/2020, 02/04/2019, 02/19/2016 COVID-19 Vaccine (3 - 2023-2 5 season) 2023 06/20/2020, 05/23/2020 Influenza Adult (#1) 2023 02/19/2021, 12/19/2019 Meningococcal Vaccine Aged Out No greg marquez eligible based on patient's age to complete this topic RSV Immunizations Under 20 Months Aged Out No longer eligible b ased on patient's age to complete this topic Insurance MEDICARE AET Care Teams Finished Goods Stock Clerk Relationship Specialty Start Date End Date Anil Gupta MD [address] [place] [address] PCP - General INTERNAL MEDICINE 10/17/20
--- OUTSIDE RECORDS SUMMARY | 2024-03-19 07:21 | XMS_ITS | Encounter Summary ---
Author Organization [facility] Address [address] [place] [address]. 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 No / Unsure 03/19/2021 9:29 AM HEATING MECHANIC documented as of this encounter Plan of Treatment Not on file documented as of this encounter Visit Diagnoses Not on filedocumented in this encounter Care Teams Grid Trimmer Relationship Specialty Start Date End Date Anil Gupta MD [address] [place] [address] PCP - General INTERNAL MEDICINE 10/17/20 documented as of this encounter
--- OUTSIDE RECORDS SUMMARY | 2024-03-19 07:21 | XMS_ITS | Encounter Summary ---
Author Organization [facility] Address [facility]ly [facility] [place] [address] [place] [address] Care Team Providers Care Laborer Stores Name Role Phone Anil Gupta MD Primary Care Provider Reason for Visit * Consultation/Treatment (Routine) - Closed Specialty Diagnoses / Procedures Referred By Contac t Referred To Contact PAIN MANAGEMENT / [facility] Pain Management Diagnoses Low back pain lbp Procedures LBP Anil Gupta MD [address] [place] [address] Phone: tel: fax: Tracy Espinosa APNP Phone: tel: fax: Referral ID Status Reason Start Date Expiration Date Visits Re quested Visits Authorized [id number] Closed 10/10/2020 11/10/2021 10 10 Encounter Details Date Type Department Care Team (Latest Contact Info) Description 03/19/2021 9:31 AM CASTING FINISHER - 03/19/2021 11:59 PM [facility] Hospital Encounter 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 No / Unsure 03/19/2021 9:29 AM CASTING FINISHER documented as of this encounter Last Filed Vital Signs Vital Sign Reading Time Taken Comments Blood Pressure 120/68 03/19/2021 9:34 AM CASTING FINISHER Pulse 83 03/19/2021 9:34 AM CASTING FINISHER Temperature 36.8 ??C (98.2 ??F) 03/19/2021 9:34 AM CS T Respiratory Rate 20 03/19/2021 9:34 AM CASTING FINISHER Oxygen Saturation 99% 03/19/2021 9:34 AM CASTING FINISHER Inhaled Oxygen Concentration - - Weight 85 kg (187 lb 6.4 oz) 03/19/2021 9:34 AM CASTING FINISHER Height 182.9 cm (6') 03/19/2021 9:34 AM CASTING FINISHER Body Mass Index 25.42 03/19/2021 9:34 AM CASTING FINISHER documented in this encounter Medications at Time [...] EACH NOSTRIL TWICE A DAY 11/02/2020 nystatin [id number] UNIT/ML suspension 02/19/2021 pregabalin 150 MG capsule Take 150 mg by mouth 2 (two) times daily. SYMBICORT 160-4.5 MCG/ACT inhaler 12/31/2020 tiZANidine 4 MG tablet Take 4 mg by mouth daily. valACYclovir 500 MG tablet Take 500 mg by mouth daily. documented as of this encounter H&P Notes * Tracy Espinosa, AIDA - 03/19/2021 10:15 AM CSTSummary: Right low back pain that radiates to the right buttock and hip, tingling down the lateral right leg Interventional Pain Management History & Physical Referring Provider: Chief Complaint: Right low back pain that radiates to the right buttock and hip, tingling down the lateral right leg HPI: Douglas Horn is a 71-year-old male who is seen today for evaluation of low back pain. He was last seen in this office on 03/08/2021, underwent bilateral L3-4, L4-5 facet joint injections at that time, denies improvement, said he feels as if his pain is worsened over time. He he underwent bilateral L5-S1 lumbar transforaminal epidural steroid injection on 11/13/2020, 12/04/2020, followed by right L4-5, 5 S1 lumbar transforaminal epidural steroid injection on 01/02/2021. He said he believes that the bilateral L5-S1 lumbar transforaminal epidural steroid injection was more beneficial than the right lumbar transforaminal epidural steroid injections. He said is experiencing right low back pain that radiates to right buttock and hip, with tingling down the lateral right leg. He rates his pain today as 10 on a 0-to-10 scale, describes the pain as shooting with qyis-[id number]-like sensation down the lateral right leg. He denies urinary or bowel incontinence, denies anesthesia in the saddle region. He said the pain awakens him from sleep and is gradually worsened over time. He said hispain is worsened with standing and walking. He has tried repositioning, which is not been helpful. He has also tried rest. He said that he has taken Advil, which has been helping him sleep. He has also tried tizanidine, Celebrex, Lyrica. Past Medical History: Diagnosis Date ??? Arthritis [...] BA, AB, BS) Occupational History ??? 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 Smoking status: Never Smoker [...] Family history unknown: Yes Review of Systems Constitutional: Disturbed sleeping habits HENT: Negative. Eyes: Negative. Respiratory: Negative. Cardiovascular: Negative. Gastrointestinal: Denies incontinence of bowels Endocrine: Negative. Genitourinary: Denies incontinence of urine Musculoskeletal: Right low back pain that radiates to the right buttock and hip, tingling down the lateral right leg Allergic/Immunologic: Negative. Neurological: Tingling down the lateral right leg Hematological: Negative. Filed Vitals: 03/19/21 0934 BP: 120/68 Pulse: 83 Resp: 20 Temp: 98.2 ??F (36.8 ??C) TempSrc: Temporal SpO2: 99% Weight: 85 kg (187 lb 6.4 oz) Height: 6' (1.829 m) Diagnostic Workup: He had an MRI of the lumbar spine at [facility] in [place], [place] on10/04/2020. 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 There ismild left neuroforaminal stenosis. There is no central [...] an x-ray of the lumbar spine at [facility] in [place], [place] on 10/04/2020. The radiologist report was [...] arthropathy. 2. Severe lumbar spondylosis. Physical Exam Body mass index is 25.42 kg/m??. The patient is alert and oriented x 3 and follows directions and answers questions appropriately. His skin is warm and dry. Mood and affect: Calm, pleasant, and cooperative. General examination of his heart, lungs and abdomen was unremarkable. The patient rises fromthe seated position without difficulty. His gait is antalgic favoring right lower extremity. Heel and toe walk was deferred at this time. No scarring, redness, lesions, or sign of infection noted to the lumbar region. He experiences significant tenderness palpation of the right SI joint. KARELY/Mac's, thigh thrust tests were positive. Range of motion of his back is limited with extension left and right lateral flexion, but is within normal limits with forward flexion. Sitting straight leg lift is negative bilaterally. Motor strength to lower extremities is 5/5 with hip flexion, knee extension and flexion, ankle dorsiflexion, plantar flexion and hallux extension bilaterally. No color change, redness, warmth, edema or discrepancy in calf size noted to the lower extremities. Sensation to palpation of the lower extremities is equal and intact bilaterally. No clonus and downgoing Babinski's bilaterally. Patellar and achilles reflexes are 2/4 bilaterally. Dorsalis pedis pulses are +2 bilaterally. Capillary refill of the lower extremities is less than 3 seconds bilaterally. Impression: Sacroiliitis, right Recommendations: I spent 25 minutes today reviewing the patient's medical record, obtaining history, performing an exam, ordering medications, tests, and/or procedures, documenting in the medical record, counseling and educating the patient/family/caregiver, reviewing and communicating test results and coordinationof care. He is experiencing right low back pain. That radiates to the right buttock and hip, with intermittent tingling down the lateral right leg. He experiences significant tenderness palpation of the right SI joint. KARELY/Mac's, thigh thrust tests were positive. We discussed a right SI joint injection as a treatment option. The procedure was described in detail as were the risks, benefits and alternative treatments, and he verbalized understanding. Risks including, but not limited to infection, elevations in blood glucose levels, permanent neurological deficit due to nerve root injury,bleeding, anaphylaxis, flushing, cerebral spinal fluid leak, paralysis, spinal cord injury, thinning of the skin, thinning of the bones, muscle cramping, were reviewed with him and he verbalized understanding. He is agreeable to a plan to move forward with the SI joint injection procedure, which will be completed by Dr. Taylor at his next office visit. He does state he has been referred by his PCP for neurosurgical consultation, has an appointment for evaluation with Jayy Granger MD on 2021. AIDA POLK CC: Anil Gupta MD Cosigned by La Taylor MD at 03/25/2021 11:13 AM CASTING FINISHER ING FINISHER ING FINISHER documented in this encounter Plan of Treatment Not on file documented as of this encounter Visit Diagnoses Not on filedocumented in this encounter Care Teams Laborer Stores Relationship Specialty Start Date End Date Anil Gupta MD [address] [place] [id number] PCP - General INTERNAL MEDICINE 10/17/20 documented as of this encounter
--- OUTSIDE RECORDS SUMMARY | 2024-03-19 07:21 | XMS_ITS | Patient Health Summary ---
Author Organization [facility] Address [address] [address] Care Team Providers Care Crusher Wet Ground Mica Name Role Phone Sukhdev Santos MD Primary Care Provider [phone] Note from [facility],non-owned Affiliates and Associated Physician Practices is amultiple site organization consisting of ambulatory clinics and hospital sitesin [place], [place], [place] and [place]. This disclosure is being madepursuant to the Care Everywhere program and may not contain all information available regarding this patient. Last updated 17.[facility] [employer] Allergies No known active allergies Medications * Be aware that medications may not be up to date on this document. Always verify current medications with the patient. * pregabalin (LYRICA) 150 MG capsule Take 150 mg by mouth 2 times daily * valACYclovir (VALTREX) 500 MG tablet Take 500 mg by mouth once daily Active Problems No known active problems Social History Tobacco Use Types Packs/Day Years Used Date Smoking Tobacco: Never Smokeless Tobacco: Never Sex and Gender Information Value Date Recorded Sex Assigned at Not on file Gender Identity Not on file Sexual Orientation Not on file Procedures * ND INTRALESIONAL INJECTION(S) 7 OR LESS(Performed 2019) Performed for Sebaceous cyst * ND DESTRUCT BENIGN LESION, 1-14(Performed 2019) Performed for Seborrheic keratoses, inflamed * ND DESTROY PREMALIG LESION, 1ST LESION(Performed 2019) Performed for Actinic keratoses * DERMATOPATHOLOGY(Performed 03/17/2016) * PATHOLOGY/GENETICS HISTORICAL-ONBASE(Performed 03/17/2016) * DERMATOPATHOLOGY(Performed 12/11/2011) Results * ND INTRALESIONAL INJECTION(S) 7 OR LESS (2019 4:36 PM GLASS INSPECTOR) Narrative Yahaira Nielsen MD - 2019 4:36 PM GLASS INSPECTOR Thaddeus Shine MD ? 2019 ??4:37 PM The side effects of intralesional triamcinolone (ILK) were discussed with patient, including petechiae and purpura, local lipoatrophy, striae and pigment change. Verbal consent obtained. 0.2ml of Triamcinolone 10mg/mL was injected in to 1 lesions on R upper buttock with 1 cc syringe and a 30 gauge needle. Patient tolerated injections well. [facility] [phone] ([id number]) [facility] [phone] ([id number]) Thaddeus Shine MD [facility] Dermatology Resident, PGY-2 Yahaira Nielsen MD PROCEDURE/MINOR DEL ANGEL RGICAL ORDERABLES * ND DESTRUCT BENIGN LESION, 1-14 (2019 1:55 PM GLASS INSPECTOR) Narrative Yahaira Nielsen MD - 2019 1:55 PM GLASS INSPECTOR Thaddeus Shine MD ? 2019 ??4:37 PM Diagnosis and treatment options discussed for ISK. Verbal consent obtained. Cryotherapy (Liquid Nitrogen) performed to 4 lesions (R forearm, L forearm, L ant shinx2 ) for 10 seconds each. Number of cycles: 1. Wound care reviewed and post-cryotherapy handout given. Thaddeus Shine MD Dermatology Resident, PGY-2 Yahaira Nielsen MD PROCEDURE/MINOR DEL ANGEL RGICAL ORDERABLES * ND DESTROY PREMALIG LESION, 1ST LESION (2019 1:54 PM GLASS INSPECTOR) Narrative Yahaira Nielsen MD - 2019 1:54 PM GLASS INSPECTOR Thaddeus Shine MD ? 2019 ??1:55 PM Diagnosis and treatment options discussed for AKs. Verbal consent obtained. Cryotherapy (Liquid Nitrogen) performed to 1 lesions (R nasal dorsum) for 6-7 seconds each. Number of cycles: 1. Wound care reviewed and post-cryotherapy handout given. Thaddeus Shine MD Dermatology Resident, PGY-2 2019 1:54 PM Yahaira Nielsen MD PROCEDURE/MINOR DEL ANGEL RGICAL ORDERABLES * PATHOLOGY/GENETICS HISTORICAL-ONBASE (03/17/2016) 03/17/2016 Historical Provider LAB - CHEMISTRY O RDERABLES [facility] [address] * PATHOLOGY TISSUE FOR DERMATOLOGY (03/17/2016 12:00 AM GLASS INSPECTOR) Only the most recent of2 resultswithin the time period is included. Result CASE: [id number] PATIENT: LZIETTE PÉREZ PATHOLOGIC DIAGNOSIS: Right medial cheek: COMPOUND MELANOCYTIC NEVUS (see microscopic description) CLINICAL DATA: Irritated nevus. GROSS DESCRIPTION: Received is one formalin filled container labeled with the patients name and designated right medial cheek. The specimen consists of a shave biopsy measuring [id number]. Jar 0. MICROSCOPIC DESCRIPTION: There are nests of melanocytes at the dermal-epiderm al junction and within the dermis. Additional deeper sections were obtained and reviewed. Electronically signed out by Lacy Augustin M.D. 03/19/2016 2:43:59PM [facility] DERMATOLOGY LAB Comment: Performed at: Dermatopathology Laboratory [facility] - Department of Dermatology [address]th [place] [address] Phone number: [phone] FAX: [phone] Skin (tissue) specimen (specimen) 03/17/2016 03/18/2016 Narrative [facility] DERMATOLOGY LAB - 03/19/2016 2:44 PM GLASS INSPECTOR Specimen A: Type->Shave ?Site->right medial cheek ?History->brown papule tender ?Impression->irritated nevus ?Check Margins:->N/A ?Prior Biopsy->N/A Yahaira Nielsen MD LAB - PATHOLOGY/CY TOLOGY ORDERABLES [facility] DERMATOLOGY LAB [address] [place] [address], [facility] [phone] Care Teams Crusher Wet Ground Mica Relationship Specialty Start Date End Date Sukhdev Santos MD [address] [facility] [address] [place] [address] PCP - General 12/15/18
--- OUTSIDE RECORDS SUMMARY | 2024-03-19 07:22 | XMS_ITS | Encounter Summary ---
Author Organization [facility] Address [address] [place] [address]. 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 No / Unsure 03/04/2021 9:35 AM TRAILER TECHNICIAN documented as of this encounter Plan of Treatment Not on file documented as of this encounter Visit Diagnoses Not on filedocumented in this encounter Care Teams Dye Feeder Relationship Specialty Start Date End Date Anil Gupta MD [address] [place] [address] PCP - General INTERNAL MEDICINE 10/17/20 documented as of this encounter
--- OUTSIDE RECORDS SUMMARY | 2024-03-19 07:22 | XMS_ITS | Encounter Summary ---
Author Organization [facility] Address [address] [place] [address]. 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 No / Unsure 01/02/2021 9:02 AM CDT documented as of this encounter Plan of Treatment Not on file documented as of this encounter Visit Diagnoses Not on filedocumented in this encounter Care Teams Plant Health Care Technician Relationship Specialty Start Date End Date Anil Gupta MD [address] [place] [address] PCP - General INTERNAL MEDICINE 10/17/20 documented as of this encounter
--- OUTSIDE RECORDS SUMMARY | 2024-03-19 07:22 | XMS_ITS | Encounter Summary ---
Author Organization [facility] Address [address] [place] [address]. [place] [address] [place] [address] Care Team Providers Care Junior Accountant Bookkeeper Name Role Phone Anil Taylor MD Primary Care Provider [phone] Reason for Visit * Auth/Cert Specialty Diagnoses / Procedures Referred By Enio t Referred To Contact Diagnoses lum rad Procedures INJECTION EPIDURAL TRANSFORAMINAL [id number] Referral ID Status Reason Start Date Expiration Date Visits Re quested Visits Authorized [id number] 1 1 Encounter Details Date Type Department Care Team (Late st Contact Info) Description 01/02/2021 9:40 AM CDT - 01/02/2021 10:00 AM CDT Surgery [facility] Interventional [place] [address] [id number] Caridad Taylor MD [facility] [address] [place], [place] [id number] INJECTION EPIDURAL TRANSFORAMINAL [id number] Surgery Details Date/Time Status Location OR Service Patient Class Case Class Case Type Trauma Case? 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 No / Unsure 01/02/2021 9:02 AM CDT documented as of this encounter Last Filed Vital Signs Vital Sign Reading Time Taken Comments Blood Pressure 110/65 01/02/2021 9:59 AM CDT Pulse 63 01/02/2021 9:59 AM CDT Temperature 36.3 ??C (97.3 ??F) 01/02/2021 9:21 AM CD T Respiratory Rate 20 01/02/2021 9:59 AM CDT Oxygen Saturation 97% 01/02/2021 9:59 AM CDT Inhaled Oxygen Concentration - - Weight 87.5 kg (193 lb) 01/02/2021 9:21 AM CDT Height 182.9 cm (6') 01/02/2021 9:21 AM CDT Body Mass Index 26.18 01/02/2021 9:21 AM CDT documented in this encounter Discharge Instructions * Discharge Instructions* Lilliana Mcgrath RN - 01/02/2021 9:56 AM CDT [place] Interventional Pain Management Discharge Instructions FOLLOW UP NEEDED AND CALL US WHEN PAIN RETURNS AND PERSISTS WHAT TO [...] DOCTOR AND HOW TO REACH US: Call [phone] ext. [phone] for scheduling, insurance questions or speak with [...] PLEASE GO TO THE EMERGENCY ROOM IMMEDIATELY! documented in this encounter Medications at Time of Discharge azithromycin 500 MG tablet Take 500 mg by mouth daily. Thursday, Thursday and Thursday celecoxib 200 MG capsule Take 200 mg by mouth daily. fluticasone propionate 50 MCG/ACT nasal spray SPRAY 2 SPRAYS IN EACH NOSTRIL TWICE DAILY 10/29/2020 ipratropium 0.06 % nasal spray USE 2 SPRAYS IN EACH NOSTRIL TWICE A DAY 11/02/2020 pregabalin 150 MG capsule Take 150 mg by mouth 2 (two) times daily. SYMBICORT 160-4.5 MCG/ACT inhaler 12/31/2020 tiZANidine 4 MG tablet Take 4 mg by mouth daily. valACYclovir 500 MG tablet Take 500 mg by mouth daily. Pregabalin 300 MG Cap Take 1 tablet by mouth daily. 1 tiZANidine HCl 4 MG Cap Take 1 capsule by mouth nightly at bedtime. 06/21/2020 1 valACYclovir 500 MG tablet Take 500 mg by mouth daily. 1 documented as of this encounter H&P Notes * Caridad Taylor MD - 01/02/2021 9:22 AM CDT HISTORY AND PHYSICAL INTERVAL NOTE: I have reviewed Douglas Horn History & Physical which was performed within the past 30 days. After examining Douglas Horn, no change has occurred in the patient's condition since the H&P was completed. Informed Consent Discussion: Risks, benefits, alternatives as well as the consequences of not performing the surgery/procedure were discussed with the patient and/or family/personal traffic workforce representative. Questions were answered and the patient/family/personal traffic workforce representative verbalized understanding and desires to proceed. Previous Adverse Experience with Sedation, Analgesia, or Anesthesia? No Risk benefits and alternate treatments were discussed. Signed: CARIDAD TAYLOR MD 9:22 AM Source Note - Caridad Taylor MD - 12/04/2020 8:59 AM CDT Admission Note With PreProc Assess CC: Low back bilateral pain HPI: 70-year-old male seen as a follow-up patient was last seen 11/13/2020. Patient underwent his first injection overall 70% improved. No new pain complaints. Prior to Admission medications Medication Sig Start Date End Date Taking? Authorizing Provider azithromycin 500 MG tablet Take 500 mg by mouth daily. Thursday, Thursday and Thursday Yes Doc Abstract celecoxib 200 MG capsule Take 200 mg by mouth daily. Yes Doc Abstract Pregabalin 300 MG Cap Take 1 tablet by mouth daily. Yes Doc Abstract tiZANidine 4 MG tablet Take 4 mg by mouth daily. Yes Doc Abstract valACYclovir 500 MG tablet Take 500 mg by mouth daily. Yes Doc Abstract No Known Allergies Past Medical History: Diagnosis Date ??? Arthritis ??? Asthma ??? Heavy metal poisoning Initally diagnosed 5 years ago ??? Peripheral neuropathy History reviewed. No pertinent surgical history. Social History Socioeconomic History ??? Marital status: Spouse name: Archana ??? Number of children: Not on file ??? Years of education: Not on file ??? Highest education level: Bachelor's degree (e.g., BA, AB, BS) Occupational History ??? 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 Smoking status: Never [...] Social Determinants of Health Financial Resource Strain: ??? Difficulty of Paying Living Expenses: Food Insecurity: ??? Worried About Running Out of Food in the Last Year: ??? Ran Out of Food in the Last Year: Transportation Needs: ??? Lack of Transportation (Medical): ??? Lack of Transportation (Non-Medical): Physical Activity: ??? Days of Exercise per Week: ??? Minutes of Exercise per Session: Stress: ??? Feeling of Stress : Social Connections: ??? Frequency of Communication with Friends and Family: ??? Frequency of Social Gatherings with Friends and Family: ??? Attends Hoahaoism Services: ??? Active Member of Clubs or Organizations: ??? Attends Club or Organization Meetings: ??? Marital Status: Intimate Partner Violence: ??? Fear of Current or Ex-Partner: ??? Emotionally Abused: ??? Physically Abused: ??? Sexually Abused: Review of Systems: no changes except specified in HPI, no bladder or bowel incontinence PHYSICAL EXAM Filed Vitals: 12/04/20 0830 BP: 114/72 Pulse: 63 Resp: 20 Temp: 98.2 ??F (36.8 ??C) TempSrc: Temporal SpO2: 98% Weight: 86.8 kg (191 lb 6.4 oz) Height: 6' (1.829 m) General: alert, appears stated age and cooperative Skin: normal and no rash or abnormalities HEENT: neck supple with midline trachea Lungs: no respiratory distress Heart: regular rate and rhythm Abdomen: soft Neuro: Patient ambulates with a normal gait reflexes 1+ no focal abnormalities of lower extremitiesbilaterally ASSESSMENT Lumbar radiculopathy PLAN 70-year-old male seen as a follow-up we will proceed with bilateral L5-S1 lumbar transforaminal injection. Risk, benefits, alternatives were discussed. Patient agreeable to plan. Risks including, but not limited to infection, permanent neurological deficit due to nerve root injury, bleeding, anaphylaxis, flushing, cerebral spinal fluid leak, paralysis, spinal cord injury, thinning of the skin, thinning of the bones, muscle cramping. documented in this encounter OR Notes * Op Note - Caridad Taylor MD - 01/02/2021 10:00 AM CDT Patient's low back pain significantly improved pain is limited to primarily left leg we will transition procedure to left L4-5 L5-S1 lumbar transforaminal injection. PROCEDURE: LUMBAR TRANSFORAMINAL EPIDURAL STEROID INJECTION UNDER FLUOROSCOPY LEVELS: Left L4-5 and L5-S1 PREOPERATIVE DIAGNOSIS: LUMBAR RADICULOPATHY POSTOPERATIVE DIAGNOSIS: SAME PREOP SURGEON: CARIDAD TAYLOR MD RISKS, BENEFITS, ALTERNATE TREATMENTS DISCUSSED. WRITTEN CONSENT [...] bones, muscle cramping. PROCEDURE: VERTEBRAL BODIES WERE SQUARED.. SKIN AND SUBCUTANEOUS TISSUES ANESTHETIZED WITH 1% LIDOCAINE. 22 GAUGE CHIBA NEEDLES WITH BENT TIPS WERE USED. C ARM WAS MOVED TO THE OBLIQUE X RAY VIEW. TARGET FOR L 5-S1 and L4-5 NERVE ROOT IS THE 6 O???CLOCK POSITION OF THE PEDICLE SHADOW IN THE OBLIQUE X RAY VIEW AT THE LEVEL OF L4-5 and L 5-S1 ON THE Left SIDE. APPROPRIATE NEEDLE TIP POSITION WAS CONFIRMED IN THE AP,OBLIQUE AND LATERAL VIEWS. AFTER NEGATIVE ASPIRATION, 5 CC OF CONTRAST SPLIT BETWEEN THE ABOVE MENTIONED LEVELS WAS INJECTED IN THE LATERAL VIEW CONFIRMING SPREAD IN THE ANTERIOR EPIDURAL SPACE. NEGATIVE ASPIRATION PRIOR TO 5 CC OF CONTRAST INJECTED IN THE AP VIEW CONFIRMING SPREAD ALONG THE APPROPRIATE NERVE ROOTS ALONG WITH EDIDURAL SPREAD. NO INTRAVASCULAR OR INTRATHECAL UPTAKE NOTED. NEGATIVE ASPIRATION PRIOR TO INJECTION OF 4OMG DEPOMEDROL AND 2 CC OF 0.25% BUPIVACAINE INJECTED PER LEVEL. NEEDLES REMOVED. NO COMPLICATIONS. POST PROCEDURE: PATIENT TOLERATED PROCEDURE WELL AND OBSERVED PRIOR TO DISCHARGE. DISCHARGED IN STABLE CONDITION WITH APPROPRIATE POST-PROCEDURE INSTRUCTIONS. PATIENT WILL BE CALLED OVER THE NEXT FEW DAYS FOR FOLLOWUP. documented in this encounter Plan of Treatment Not on file documented as of this encounter Procedures Procedure Name Priority Date/Time Associated Diagnosis Comments INJECTION EPIDURAL TRANSFORAMINAL 01/02/2021 9:51 AM CDT lum rad XR PAIN CLINIC C-ARM Today 01/02/2021 9:03 AM CDT documented in this encounter Results * XR PAIN CLINIC C-ARM (01/02/2021 9:03 AM CDT) Narrative Radiology, Technologist - 01/02/2021 9:03 AM CDT This report does not contain a radiologist's [...] 0.25 % injection As needed, Starting on Thu01/02/21 at 0935, Until Thu01/02/21 at 0959, Intra-Op Given 01/02/2021 9:57 AM CDT 2 mLs Back chlorhexidine (PERIDEX) 0.12 % solution 15 mL 15 mL, Mouth/Throat, PRN, Prior to surgery, 1 dose, Starting on Thu01/02/21 at 0925, Until Thu01/02/21 at 1210, Patient to perform oral care first. Swish/Gargle in mouth for 30 seconds, and then discard, prior to going to surgery/ If ventilated use saturated swab to clean oral cavity., Pre-Op iopamidol (ISOVUE-M 300) 61 % injection As needed, Starting on Thu01/02/21 at 0935, Until Thu01/02/21 at 0959, Intra-Op Given 01/02/2021 9:57 AM CDT 5 mLs Back lidocaine (PF) (XYLOCAINE) 1 % injection As needed, Starting on Thu01/02/21 at 0935, Until Thu01/02/21 at 0959, Intra-Op Given 01/02/2021 9:53 AM CDT 2 mLs Back methylPREDNISolone acetate (DEPO-Medrol) injection As needed, Starting on Thu01/02/21 at 0936, Until Thu01/02/21 at 0959, Intra-Op Given 01/02/2021 9:57 AM CDT 80 mg Back documented in this encounter Active and Recently Administered Medications Times are shown in CDT. PRN Medication Order 12/31/2020 01/01/2021 01/02/2021 BUpivacaine (MARCAINE) 0.25 % injection (CANCELED) As needed, Starting on Thu01/02/21 at 0935, Until Thu01/02/21 at 0959, Intra-Op 0957 (Given - Provid er: Caridad Taylor MD) chlorhexidine (PERIDEX) 0.12 % solution 15 mL 15 mL, Mouth/Throat, PRN, Prior to surgery, 1 dose, Starting on Thu01/02/21 at 0925, Until Thu01/02/21 at 1210, Patient to perform oral care first. Swish/Gargle in mouth for 30 seconds, and then discard, prior to going to surgery/ If ventilated use saturated swab to clean oral cavity., Pre-Op iopamidol (ISOVUE-M 300) 61 % injection (CANCELED) As needed, Starting on Thu01/02/21 at 0935, Until Thu01/02/21 at 0959, Intra-Op 0957 (Given - Provid er: Caridad Taylor MD) lidocaine (PF) (XYLOCAINE) 1 % injection (CANCELED) As needed, Starting on Thu01/02/21 at 0935, Until Thu01/02/21 at 0959, Intra-Op 0953 (Given - Provid er: Caridad Taylor MD) methylPREDNISolone acetate (DEPO-Medrol) injection (CANCELED) As needed, Starting on Thu01/02/21 at 0936, Until Thu01/02/21 at 0959, Intra-Op 0957 (Given - Provid er: Caridad Taylor MD) documented in this encounter Care Teams Junior Accountant Bookkeeper Relationship Specialty Start Date End Date Anil Taylor MD [address] [place] [phone] PCP - General INTERNAL MEDICINE 10/17/20 documented as of this encounter
--- OUTSIDE RECORDS SUMMARY | 2024-03-19 07:22 | XMS_ITS | Encounter Summary ---
Author Organization [facility] Address [address] [place] [address]. [place] [address] [place] [address] Care Team Providers Care Account Development Manager Name Role Phone Anil Gupta MD Primary Care Provider Reason for Referral * Surgical (Routine) - Closed Specialty Diagnoses / Procedures Referred By Enio t Referred To Contact Procedures Case request operating room: INJECTION FACET JOINT L3, L4, L5 Tracy Espinosa APNP Phone: tel: fax: Referral ID Status Reason Start Date Expiration Date Visits Re quested Visits Authorized [id number] Closed 03/04/2021 04/04/2022 1 1 PREP COOK Encounter Details Date Type Department Care Team (Late st Contact Info) Description 03/04/2021 Prep for Procedure [facility] Interventional [place] [address] [id number] Tracy Espinosa APNP [address] [place] [phone] Social History Tobacco Use Types Packs/Day Years [...] 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 No / Unsure 03/04/2021 9:35 AM LINE PREP COOK documented as of this encounter Plan of Treatment Scheduled Orders Name Type Priority Associated Diagnoses Orde r Schedule Case request operating room: INJECTION FACET JOINT L3, L4, L5 Case Request Routine Once for 1 Occu rrences starting 03/04/2021 until 03/04/2021 documented as of this encounter Visit Diagnoses Not on filedocumented in this encounter Care Teams Account Development Manager Relationship Specialty Start Date End Date Anil Gupta MD [address] [place] [phone] PCP - General INTERNAL MEDICINE 10/17/20 documented as of this encounter
--- OUTSIDE RECORDS SUMMARY | 2024-03-19 07:22 | XMS_ITS | Encounter Summary ---
Author Organization [facility] Address [address] [place] [address]. 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 HE HAS HAD HIS THREE TFESI AND CAN'T HAVE ANOTHER UNTIL April 2021. HE IS HAVING SEVERE RT HIP PAIN AND WANTS TO KNOW ANY OTHER OPTIONS AVAILABLE. ERING DEPARTMENT SUPERVISOR documented in this encounter Plan of Treatment Not on file documented as of this encounter Visit Diagnoses Not on filedocumented in this encounter Care Teams Box Toe Buffer Relationship Specialty Start Date End Date Anil Gupta MD [address] [place] [phone] PCP - General INTERNAL MEDICINE 10/17/20 documented as of this encounter
--- OUTSIDE RECORDS SUMMARY | 2024-03-19 07:22 | XMS_ITS | Encounter Summary ---
Author Organization [facility] Address [address] [place] [address]. 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 No / Unsure 03/04/2021 9:35 AM ELASTIC CUTTER documented as of this encounter Plan of Treatment Not on file documented as of this encounter Visit Diagnoses Not on filedocumented in this encounter Care Teams Clinical Review Specialist Relationship Specialty Start Date End Date Anil Gupta MD [address] [place] [phone] PCP - General INTERNAL MEDICINE 10/17/20 documented as of this encounter
--- OUTSIDE RECORDS SUMMARY | 2024-03-19 07:22 | XMS_ITS | Encounter Summary ---
Author Organization [facility] Address [address] [place] [address]. 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 No / Unsure 12/04/2020 8:16 AM CDT documented as of this encounter Plan of Treatment Not on file documented as of this encounter Visit Diagnoses Not on filedocumented in this encounter Care Teams Illusionist Relationship Specialty Start Date End Date Anil Gupta MD [address] [place] [phone] PCP - General INTERNAL MEDICINE 10/17/20 documented as of this encounter
--- OUTSIDE RECORDS SUMMARY | 2024-03-19 07:22 | XMS_ITS | Encounter Summary ---
Author Organization [facility] Address [address] [place] [address]. [place] [address] [place] [address] Care Team Providers Care Claims Representative Name Role Phone Anil Gupta MD Primary Care Provider [phone] Reason for Visit * Auth/Cert Specialty Diagnoses / Procedures Referred By Enio t Referred To Contact Diagnoses lum rad Procedures INJECTION EPIDURAL TRANSFORAMINAL l5s1 Referral ID Status Reason Start Date Expiration Date Visits Re quested Visits Authorized [id number] 1 1 Encounter Details Date Type Department Care Team (Latest Contact Info) Description 01/02/2021 9:01 AM CDT - 01/02/2021 10:09 AM CDT Hospital Encounter [facility] Interventional [place] [address] [phone] Caridad Taylor MD Three [facility] [address] [place], [place] [phone] Discharge Disposition: Home or Self Care (Routine [...] 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 [phone] for scheduling, insurance questions or speak with [...] were discussed with the patient and/or family/personal graphic art sales representative. Questions were answered and the patient/family/personal graphic art sales representative verbalized understanding and desires to [...] BA, AB, BS) Occupational History ??? 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 Smoking status: Never [...] Gatherings with Friends and Family: ??? Attends Mandaen Services: ??? Active Member of Clubs or [...] Please review associated procedure and/or operative report. Caridad Taylor MD GENERAL IMAGING Final Result documented in this encounter Visit Diagnoses Not on filedocumented in this encounter Administered Medications Inactive Administered Medications - up to 3 most recent administrations Medication Order MAR Action Action Date Dose Rate Site chlorhexidine (PERIDEX) 0.12 % solution 15 mL 15 mL, Mouth/Throat, PRN, Prior to surgery, 1 dose, Starting on Thu01/02/21 at 0925, Until Thu01/02/21 at 1210, Patient to perform oral care first. Swish/Gargle in mouth for 30 seconds, and then discard, prior to going to surgery/ If ventilated use saturated swab to clean oral cavity., Pre-Op documented in this encounter Active and Recently Administered Medications Times are shown in CDT. PRN Medication Order 12/31/2020 01/01/2021 01/02/2021 BUpivacaine (MARCAINE) 0.25 % injection (CANCELED) As needed, Starting on Thu01/02/21 at 0935, Until Thu01/02/21 at 0959, Intra-Op 956 (Given - Provid er: Caridad Taylor MD) [...] at 0935, Until Thu01/02/21 at 0959, Intra-Op 956 (Given - Provid er: Caridad Taylor MD) [...] MD) documented in this encounter Care Teams Claims Representative Relationship Specialty Start Date End Date Anil Gupta MD [address] [place] [address] PCP - General INTERNAL MEDICINE 10/17/20 documented as of this encounter
--- OUTSIDE RECORDS SUMMARY | 2024-03-19 07:22 | XMS_ITS | Encounter Summary ---
Author Organization [facility] Address [address] [place] [address]. [place] [address] [place] [address] Care Team Providers Care Weighing Station Operator Name Role Phone Anil Gupta MD Primary Care Provider [phone] Reason for Visit * Auth/Cert Specialty Diagnoses / Procedures Referred By Enio t Referred To Contact Diagnoses lumbar facet arthropathy Procedures INJECTION FACET JOINT L3, L4, L5 Referral ID Status Reason Start Date Expiration Date Visits Re quested Visits Authorized [id number] 1 1 Encounter Details Date Type Department Care Team (Latest Contact Info) Description 03/08/2021 12:30 PM INDUSTRIAL SERVICES WORKER - 03/08/2021 2:02 PM [facility] Hospital Encounter [facility] Interventional [facility] [place] [address] [phone] Caridad Taylor MD Three [facility] [address] [place] [address] Discharge Disposition: Home or Self Care (Routine [...] 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 No / Unsure 03/08/2021 12:31 PM INDUSTRIAL SERVICES WORKER documented as of this encounter Last Filed Vital Signs Vital Sign Reading Time Taken Comments Blood Pressure 106/70 03/08/2021 1:52 PM INDUSTRIAL SERVICES WORKER Pulse 64 03/08/2021 1:52 PM INDUSTRIAL SERVICES WORKER Temperature 36.6 ??C (97.8 ??F) 03/08/2021 12:[address] Respiratory Rate 20 03/08/2021 1:52 PM INDUSTRIAL SERVICES WORKER Oxygen Saturation 97% 03/08/2021 1:52 PM INDUSTRIAL SERVICES WORKER Inhaled Oxygen Concentration - - Weight 87.5 kg (193 lb) 03/08/2021 12:58 PM INDUSTRIAL SERVICES WORKER Height 182.9 cm (6') 03/08/2021 12:58 PM INDUSTRIAL SERVICES WORKER Body Mass Index 26.18 03/08/2021 12:58 PM INDUSTRIAL SERVICES WORKER documented in this encounter Discharge Instructions * Discharge Instructions* Laury Beverly RN - 03/08/2021 1:52 PM INDUSTRIAL SERVICES WORKER [place] Interventional Pain Management Discharge Instructions FOLLOW [...] DOCTOR AND HOW TO REACH US: Call [phone] ext. [phone] for scheduling, insurance questions or speak with [...] PLEASE GO TO THE EMERGENCY ROOM IMMEDIATELY! STRIAL SERVICES WORKER documented in this encounter Medications at Time [...] EACH NOSTRIL TWICE A DAY 11/02/2020 nystatin [id number] UNIT/ML suspension 02/19/2021 pregabalin 150 MG capsule [...] change has occurred in the patient's condition sincethe H&P was completed. Informed Consent Discussion: Risks, benefits, alternatives as well as the consequences of not performing the surgery/procedure were discussed with the patient and/or family/personal guest services representative. Questions were answered and the patient/family/personal guest services representative verbalized understanding and desires to proceed. Previous Adverse Experience with Sedation, Analgesia, or Anesthesia? No Risk benefits and alternate treatments were discussed. 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 [facility], is currently on a regimen [...] BA, AB, BS) Occupational History ??? 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 Smoking status: Never Smoker [...] an MRI of the lumbar spine at [facility] in [place], [place] on10/04/2020. The radiologist report was reviewed [...] an x-ray of the lumbar spine at [facility] in [place], [place] on 10/04/2020. The radiologist report was [...] very pleasant patient. AIDA POLK CC: Anil Gupta MD Cosigned by Caridad Taylor MD at 03/04/2021 12:26 PM INDUSTRIAL SERVICES WORKER STRIAL SERVICES WORKER STRIAL SERVICES WORKER documented in this encounter OR Notes * [...] OVER THE NEXT FEW DAYS FOR FOLLOWUP. STRIAL SERVICES WORKER documented in this encounter Plan of Treatment Not on file documented as of this encounter Procedures Procedure Name Priority Date/Time Associated Diagnosis Comments INJECTION FACET JOINT 03/08/2021 1:40 PM INDUSTRIAL SERVICES WORKER lumbar facet arthropathy XR PAIN CLINIC C-ARM Today 03/08/2021 12:35 PM INDUSTRIAL SERVICES WORKER documented in this encounter Results * XR PAIN CLINIC C-ARM (03/08/2021 12:35 PM INDUSTRIAL SERVICES WORKER) Narrative Radiology, Technologist - 03/08/2021 12:35 PM INDUSTRIAL SERVICES WORKER This report does not contain a radiologist's [...] Recently Administered Medications Times are shown in INDUSTRIAL SERVICES WORKER. PRN Medication Order 03/06/2021 03/07/2021 03/08/2021 BUpivacaine [...] MD) documented in this encounter Care Teams Weighing Station Operator Relationship Specialty Start Date End Date Anil Gupta MD [address] [place] [phone] PCP - General INTERNAL MEDICINE 10/17/20 documented as of this encounter
--- OUTSIDE RECORDS SUMMARY | 2024-03-19 07:22 | XMS_ITS | Encounter Summary ---
Author Organization [facility] Address [facility] [place] [address] [place] [address] Care Team Providers Care Insights Manager Name Role Phone Anil Gupta MD Primary Care Provider [phone] Reason for Visit * Consultation/Treatment (Routine) - Closed Specialty Diagnoses / Procedures Referred By Contac t Referred To Contact PAIN MANAGEMENT / [facility] Pain Management Diagnoses Low back pain lbp Procedures LBP Anil Gupta MD [address] [place] [address] Phone: tel: fax: Tracy Espinosa APNP Phone: tel: fax: Referral ID Status Reason Start Date Expiration Date Visits Re quested Visits Authorized [id number] Closed 10/10/2020 11/10/2021 10 10 Encounter Details Date Type Department Care Team (Latest Contact Info) Description 03/04/2021 9:38 AM SCREED PERSON - 03/04/2021 11:59 PM [facility] Hospital Encounter [facility] Interventional [place] [address] [phone] Tracy Espinosa APNP [address] [place] [phone] Discharge Disposition: Home or Self Care (Routine [...] 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 No / Unsure 03/04/2021 9:35 AM SCREED PERSON documented as of this encounter Last Filed Vital Signs Vital Sign Reading Time Taken Comments Blood Pressure 110/73 03/04/2021 11:00 AM SCREED PERSON Pulse 70 03/04/2021 11:00 AM SCREED PERSON Temperature 36.2 ??C (97.1 ??F) 03/04/2021 11:[address] Respiratory Rate 20 03/04/2021 11:00 AM SCREED PERSON Oxygen Saturation 98% 03/04/2021 11:00 AM SCREED PERSON Inhaled Oxygen Concentration - - Weight 87.6 kg (193 lb 3.2 oz) 03/04/2021 11:00 AM SCREED PERSON Height 182.9 cm (6') 03/04/2021 11:00 AM SCREED PERSON Body Mass Index 26.2 03/04/2021 11:00 AM SCREED PERSON documented in this encounter Medications at Time [...] EACH NOSTRIL TWICE A DAY 11/02/2020 nystatin [id number] UNIT/ML suspension 02/19/2021 pregabalin 150 MG capsule Take 150 mg by mouth 2 (two) times daily. SYMBICORT 160-4.5 MCG/ACT inhaler 12/31/2020 tiZANidine 4 MG tablet Take 4 mg by mouth daily. valACYclovir 500 MG tablet Take 500 mg by mouth daily. methylPREDNISolo kaylen RAJAT, 4 MG tablet 01/29/2021 1 predniSONE 10 mg tablet 02/25/2021 1 Pregabalin 300 MG Cap Take 1 tablet by mouth daily. 1 tiZANidine HCl 4 MG Cap Take 1 capsule by mouth nightly at bedtime. 06/21/2020 1 valACYclovir 500 MG tablet Take 500 mg by mouth daily. 1 documented as of this encounter H&P Notes * AIDA Polk - 03/04/2021 10:15 AM CSTSummary: Low back pain that radiates to the [...] Pseudomonas infection, follows with Dr. Marino at [facility], is currently on a regimen of levofloxacin, [...] BA, AB, BS) Occupational History ??? 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 Smoking status: Never [...] an MRI of the lumbar spine at [facility] in [place], [place] on10/04/2020. The radiologist report was reviewed [...] an x-ray of the lumbar spine at [facility] in [place], [place] on 10/04/2020. The radiologist report was [...] MD Cosigned by La Taylor MD at 03/04/2021 12:26 PM SCREED PERSON ED PERSON ED PERSON documented in this encounter Plan of Treatment Not on file documented as of this encounter Visit Diagnoses Not on filedocumented in this encounter Care Teams Insights Manager Relationship Specialty Start Date End Date Anil Gupta MD [address] [place] [phone] PCP - General INTERNAL MEDICINE 10/17/20 documented as of this encounter
--- OUTSIDE RECORDS SUMMARY | 2024-03-19 07:22 | XMS_ITS | Encounter Summary ---
Author Organization [facility] Address [address] [place] [address]. [place] [address] [place] [address] Care Team Providers Care Cheerleading Coach Name Role Phone Anil Taylor MD Primary Care Provider [phone] Reason for Visit * Auth/Cert Specialty Diagnoses / Procedures Referred By Enio t Referred To Contact Diagnoses lum rad Procedures INJECTION EPIDURAL TRANSFORAMINAL [id number] Referral ID Status Reason Start Date Expiration Date Visits Re quested Visits Authorized [id number] 1 1 Encounter Details Date Type Department Care Team (Late st Contact Info) Description 12/04/2020 9:00 AM CDT - 12/04/2020 9:20 AM CDT Surgery [facility] Interventional [place] [address] [phone] Caridad Taylor MD Three [facility] [address] [place], [place] [address] INJECTION EPIDURAL TRANSFORAMINAL l5s1 Surgery Details Date/Time Status Location OR Service Patient Class Case Class Case Type Trauma Case? 12/04/2020 9:00 AM Posted [facility] Pain Mgmt Pain Proc Rm Pain Medicine Short Stay/Outpa tient Surgery No Panel 1 Procedure LRB Anes Op Region Wound Class Comments INJECTION EPIDURAL TRANSFORAMINAL l5s1 Bilateral Local Spine Lumbar Clean #2 TFESI NO BLD THINN REF DR. 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 No / Unsure 12/04/2020 8:16 AM CDT documented as of this encounter Last Filed Vital Signs Vital Sign Reading Time Taken Comments Blood Pressure 116/73 12/04/2020 9:16 AM CDT Pulse 54 12/04/2020 9:16 AM CDT Temperature 36.8 ??C (98.2 ??F) 12/04/2020 8:30 AM CD T Respiratory Rate 18 12/04/2020 9:16 AM CDT Oxygen Saturation 98% 12/04/2020 9:16 AM CDT Inhaled Oxygen Concentration - - Weight 86.8 kg (191 lb 6.4 oz) 12/04/2020 8:30 A M CDT Height 182.9 cm (6') 12/04/2020 8:30 AM CDT Body Mass Index 25.96 12/04/2020 8:30 AM CDT documented in this encounter Discharge Instructions * Discharge Instructions* Karyn Kennedy RN - 12/04/2020 9:29 AM CDT FOR YOUR NEXT INJECTION APPOINTMENT. Please do not eat or drink anything for 4 hours prior to your appointment. Please have responsible adult with you and someone to drive you home Please shower prior to procedure to help prevent infection. Please no perfumes or scented lotions on day of your procedure. You May wear deodorant. You may take all your medications as prescribed with sips of water. [place] Interventional Pain Management Discharge Instructions WHAT TO DO TODAY: - Limit your [...] DOCTOR AND HOW TO REACH US: Call [phone]. 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 Smoking status: Never [...] Gatherings with Friends and Family: ??? Attends Mandaeism Services: ??? Active Member of Clubs or [...] Op Note - Caridad Taylor MD - 12/04/2020 9:21 AM CDT PROCEDURE: LUMBAR TRANSFORAMINAL EPIDURAL STEROID INJECTION UNDER FLUOROSCOPY LEVELS: Bilateral L5-S1 PREOPERATIVE DIAGNOSIS: LUMBAR RADICULOPATHY POSTOPERATIVE DIAGNOSIS: [...] X RAY VIEW. TARGET FOR L 5-S1 NERVE ROOT IS THE 6 O???CLOCK POSITION OF THE PEDICLE SHADOW IN THE OBLIQUE X RAYVIEW AT THE LEVEL OF L 5-S1 ON THE Left and Right SIDE. APPROPRIATE NEEDLE TIP POSITION WAS CONFIRMED [...] Procedure Name Priority Date/Time Associated Diagnosis Comments XR PAIN CLINIC C-ARM Today 12/04/2020 9:03 AM CDT INJECTION EPIDURAL TRANSFORAMINAL 12/04/2020 9:03 AM CDT lum rad documented in this encounter Results * XR PAIN CLINIC C-ARM (12/04/2020 9:03 AM CDT) Narrative Radiology, Technologist - 12/04/2020 9:03 AM CDT This report does not [...] 0.25 % injection As needed, Starting on Thu12/04/20 at 0907, Until Thu12/04/20 at 0918, Intra-Op Given 12/04/2020 9:15 AM CDT 2 mLs Lumbar Spine chlorhexidine (PERIDEX) 0.12 % solution 15 mL 15 mL, Mouth/Throat, PRN, Prior to surgery, 1 dose, Starting on Thu12/04/20 at 0837, Until Thu12/04/20 at 1130, Patient to perform oral care first. Swish/Gargle in mouth for 30 seconds, and then discard, prior to going to surgery/ If ventilated use saturated swab to clean oral cavity., Pre-Op diazePAM (VALIUM) tablet 5 mg 5 mg, Oral, Once as needed, Anxiety, 1 dose, Starting on Thu12/04/20 at 0837, Until Thu12/04/20 at 1130, Pre-Op iopamidol (ISOVUE-M 300) 61 % injection As needed, Starting on Thu12/04/20 at 0907, Until Thu12/04/20 at 0918, Intra-Op Given 12/04/2020 9:14 AM CDT 5 mLs Lumbar Spine lidocaine (PF) (XYLOCAINE) 1 % injection As needed, Starting on Thu12/04/20 at 0907, Until Thu12/04/20 at 0918, Intra-Op Given 12/04/2020 9:10 AM CDT 2 mLs Back methylPREDNISolone acetate (DEPO-Medrol) injection As needed, Starting on Thu12/04/20 at 0907, Until Thu12/04/20 at 0918, Intra-Op Given 12/04/2020 9:15 AM CDT 80 mg Lumbar Spine documented in this encounter Active and Recently Administered Medications Times are shown in CDT. PRN Medication Order 12/02/2020 12/03/2020 12/04/2020 BUpivacaine (MARCAINE) 0.25 % injection (CANCELED) As needed, Starting on Thu12/04/20 at 0907, Until Thu12/04/20 at 0918, Intra-Op 0915 (Given - Provid er: Caridad Taylor MD) chlorhexidine (PERIDEX) 0.12 % solution 15 mL 15 mL, Mouth/Throat, PRN, Prior to surgery, 1 dose, Starting on Thu12/04/20 at 0837, Until Thu12/04/20 at 1130, Patient to perform oral care first. Swish/Gargle in mouth for 30 seconds, and then discard, prior to going to surgery/ If ventilated use saturated swab to clean oral cavity., Pre-Op diazePAM (VALIUM) tablet 5 mg 5 mg, Oral, Once as needed, Anxiety, 1 dose, Starting on Thu12/04/20 at 0837, Until Thu12/04/20 at 1130, Pre-Op 0838 (Not Given - Pr ovider: Lilliana Mcgrath RN - Reason: Patient/family declined) iopamidol (ISOVUE-M 300) 61 % injection (CANCELED) As needed, Starting on Thu12/04/20 at 0907, Until Thu12/04/20 at 0918, Intra-Op 0914 (Given - Provid er: Caridad Taylor MD) lidocaine (PF) (XYLOCAINE) 1 % injection (CANCELED) As needed, Starting on Thu12/04/20 at 0907, Until Thu12/04/20 at 0918, Intra-Op 0910 (Given - Provid er: Caridad Taylor MD) methylPREDNISolone acetate (DEPO-Medrol) injection (CANCELED) As needed, Starting on Thu12/04/20 at 0907, Until Thu12/04/20 at 0918, Intra-Op 0915 (Given - Provid er: Caridad Taylor MD) documented in this encounter Care Teams Cheerleading Coach Relationship Specialty Start Date End Date Anil Taylor MD [address] [place] [address] PCP - General INTERNAL MEDICINE 10/17/20 documented as of this encounter
--- OUTSIDE RECORDS SUMMARY | 2024-03-19 07:23 | XMS_ITS | Encounter Summary ---
Author Organization [facility] Address [facility] [place] [address] [place] [address] Care Team Providers Care Desk Pen Set Assembler Name Role Phone Anil Gupta MD Primary Care Provider [phone] Reason for Referral * Surgical (Routine) - Closed Specialty Diagnoses / Procedures Referred By Enio t Referred To Contact Procedures Case request operating room: INJECTION EPIDURAL TRANSFORAMINAL L5-S1 Tracy Espinosa APNP Phone: tel: fax: Referral ID Status Reason Start Date Expiration Date Visits Re quested Visits Authorized [id number] Closed 10/17/2020 11/17/2021 1 1 Encounter Details Date Type Department Care Team (Late st Contact Info) Description 10/17/2020 Prep for Procedure [facility] Interventional [place] [address] [phone] Tracy Espinosa APNP [address] [place] [phone] Social History Tobacco Use Types Packs/Day Years [...] 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 No / Unsure 10/17/2020 9:51 AM CDT documented as of this encounter Plan of Treatment Scheduled Orders Name Type Priority Associated Diagnoses Order Schedule Case request operating room: INJECTION EPIDURAL TRANSFORAMINAL L5-S1 Case Request Routine Once for 1 Occurrences starting 10/17/2020 until 10/17/2020 documented as of this encounter Visit Diagnoses Not on filedocumented in this encounter Care Teams Desk Pen Set Assembler Relationship Specialty Start Date End Date Anil Gupta MD [address] [place] [phone] PCP - General INTERNAL MEDICINE 10/17/20 documented as of this encounter
--- OUTSIDE RECORDS SUMMARY | 2024-03-19 07:23 | XMS_ITS | Encounter Summary ---
Author Organization [facility] Address [facility]. [place], [place] [address] [place] [address] Care Team Providers Care Business Support Liaison Name Role Phone Anil Gupta MD Primary Care Provider [phone] Reason for Referral * Surgical (Routine) - Closed Specialty Diagnoses / Procedures Referred By Contac t Referred To Contact Procedures Case request operating room: INJECTION EPIDURAL TRANSFORAMINAL [id number] Caridad Taylor MD Three [facility] [address] [place] [address] Phone: tel: fax: Referral ID Status Reason Start Date Expiration Date Visits Re quested Visits Authorized [id number] Closed 11/13/2020 12/14/2021 1 1 Reason for Visit * Auth/Cert Specialty Diagnoses / Procedures Referred By Contac t Referred To Contact Diagnoses lumbar radiculopathy Procedures INJECTION EPIDURAL TRANSFORAMINAL L5-S1 Referral ID Status Reason Start Date Expiration Date Visits Re quested Visits Authorized [id number] 1 1 Encounter Details Date Type Department Care Team (Latest Contact Info) Description 11/13/2020 9:09 AM CDT - 11/13/2020 10:23 AM CDT Hospital Encounter [facility] [place], [place] [id number] Caridad Taylor MD Three [facility] [address] [place] [phone] Discharge Disposition: Home or Self Care (Routine [...] 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 No / Unsure 11/13/2020 9:07 AM CDT documented as of this encounter Last Filed Vital Signs Vital Sign Reading Time Taken Comments Blood Pressure 107/63 11/13/2020 10:06 AM CDT Pulse 54 11/13/2020 10:06 AM CDT Temperature 36.2 ??C (97.2 ??F) 11/13/2020 9:36 AM CD T Respiratory Rate 16 11/13/2020 10:06 AM CDT Oxygen Saturation 99% 11/13/2020 10:06 AM CDT Inhaled Oxygen Concentration - - Weight 87.8 kg (193 lb 9.6 oz) 11/13/2020 9:36 A M CDT Height 182.9 cm (6') 11/13/2020 9:36 AM CDT Body Mass Index 26.26 11/13/2020 9:36 AM CDT documented in this encounter Discharge Instructions * Discharge Instructions* Karyn Kennedy RN - 11/13/2020 10:22 AM CDT FOR YOUR NEXT INJECTION APPOINTMENT. [...] medications as prescribed with sips of water. [place] Interventional Pain Management Discharge Instructions WHAT TO [...] physicianwho fist prescribed it for you. - We are an Interventional pain management. [...] DOCTOR AND HOW TO REACH US: Call [phone] [phone] for scheduling, insurance questions or speak with [...] IN EACH NOSTRIL TWICE A DAY 11/02/2020 tiZANidine 4 MG tablet Take 4 mg by mouth daily. valACYclovir 500 MG tablet Take 500 mg by mouth daily. diazePAM 5 MG tabletIndications:L umbar radiculopathy Take 1 tablet (5 mg total) by mouth once for 1 dose. Take 1 tabs po 1 hour prior to procedure 1 tablet 11/13/2020 1 Pregabalin 300 MG Cap Take 1 tablet by mouth daily. 1 tiZANidine HCl 4 MG Cap Take 1 capsule by mouth nightly at bedtime. 06/21/2020 1 documented as of this encounter H&P Notes * Caridad Taylor MD - 11/13/2020 9:31 AM CDT HISTORY AND PHYSICAL INTERVAL NOTE: I have reviewed Douglas Horn History & Physical which was performed within the past 30 days.After examining Douglas Horn, no change has occurred in the patient's condition since the H&P was completed. Informed Consent Discussion: Risks, benefits, alternatives as well as the consequences of not performing the surgery/procedure were discussed with the patient and/or family/personal claim representative. Questions were answered and the patient/family/personal claim representative verbalized understanding and desires to proceed. Previous Adverse Experience with Sedation, Analgesia, or Anesthesia? No Risk benefits and alternate treatments were discussed. Signed: CARIDAD TAYLOR MD 9:31 AM Source Note - TracyAIDA Weinstein - 10/17/2020 11:00 AM CDT Summary: Low back pain that radiates to the left gluteal region, left post leg, right low back painthat radiiates to the lateral right leg Interventional Pain Management History & Physical Referring Provider: Anil Gupta MD Chief Complaint: Low back pain that radiates to the left gluteal region, left post leg, right low back pain that radiiates to the lateral right leg. HPI: Douglas Horn is a 70-year-old male who is seen today as a new patient as referred by Anil Gupta MD. he said the pain to the right hip began 2 months ago, states he has had a gradual onset oflow back pain,/left sciatic nerve pain over the past 3 years. He denies trauma. He does report somelow back pain on and off since his teenage years, states he is active, said he performed quite a few outdoor activities such as cutting logs and lifting firewood. He has been experiencing low back pain that radiates to the left gluteal region, left post leg, right low back pain that radiiates to the lateral right leg. He he does state history significant for heavy metal poisoning, as well as peripheral neuropathy, states that as a child he melted car batteries, to make lead bricks, and used mercury from thermometers to shine copper pennies. He does follow with neurologist Keila Mendoza MD. He states he did complete a regimen of 6 chelation treatments, which involved 5 IV treatments as well as 6 months of suppositories, said completed the last treatment last year. He rates his pain today as 4 on a 0-to-10 scale, with an overall average of 5-8 on a 0-to-10 scale, the worst pain beinga 6 on a 0-to-10 scale. He describes a pain as shooting, throbbing, dull, letter shocklike, burning, severe, constant, worsening over time .Associated symptoms include some numbness of the dorsal aspect of his feet, plantar left foot, lateral right leg and the left calf. He denies urinary or bowel dysfunction or incontinence, denies anesthesia the saddle region. He said his pain is worsened with rolling in bed, standing, exercise, driving, sitting, lying on his left side, walking. He said he isonly been able to sleep on his right side because of his pain, which is uncomfortable. Factors thatrelieve the pain include application of ice, states he uses ice 2 times daily, which has been helpful. Previous treatments tried: He has been undergoing physical therapy at [facility] in [place], [place], states he is completed 3 weeks of treatment, has not noticed improvement. He received chiropracticcare years ago. Medications tried for pain relief: He said he takes a baby aspirin at nightly and uses Advil, said he takes 3, but is not sure if these medications provide improvement. He has tried tizanidine and Celebrex, which have not been helpful. He has been on a regimen of Lyrica for treatment of peripheral neuropathy. Past Medical History: Diagnosis Date ??? Arthritis [...] BA, AB, BS) Occupational History ??? 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 Smoking status: Never [...] Gatherings with Friends and Family: ??? Attends Pentecostalism Services: ??? Active Member of Clubs or Organizations: ??? Attends Club or Organization Meetings: ??? Marital Status: Intimate Partner Violence: ??? Fear of Current or Ex-Partner: ??? Emotionally Abused: ??? Physically Abused: ??? Sexually Abused: Family History Family history unknown: Yes Review of Systems HENT: Negative. Eyes: Negative. Cardiovascular: Negative. Gastrointestinal: Denies incontinence of bowels Endocrine: Negative. Genitourinary: Negative. Denies urinary incontinence Musculoskeletal: Low back pain that radiates to the left gluteal region, left post leg, right low back pain that radiates to the lateral right leg Skin: Negative. Allergic/Immunologic: Negative. Neurological: Numbness of the dorsal aspect of his feet, plantar left foot, and lateral right leg and left calf Hematological: Negative. Psychiatric/Behavioral: Negative. Filed Vitals: 10/17/20 1021 BP: 114/77 Pulse: 72 Resp: 20 Temp: 97.6 ??F (36.4 ??C) TempSrc: Skin SpO2: 97% Weight: 87.9 kg (193 lb 12.8 oz) Height: 6' (1.829 m) Diagnostic Workup: He had an MRI of the lumbar spine at [facility] in [place], [place] on10/04/2020. The radiologist report was reviewed [...] 1. Severe lumbar spondylosis. 2. Thoracolumbar dextroscoliosis. He had an x-ray of the lumbar spine at [facility] in [place], [place] on 10/04/2020. The radiologist report was [...] spondylosis. Physical Exam Body mass index is 26.28 kg/m??. The patient is alert and oriented x 3 and follows directions and answers questions appropriately. His skin is warm and dry. Mood and affect: Calm, pleasant, and cooperative. General examination of his heart, lungs and abdomen was unremarkable. The patient rises fromthe seated position without difficulty. His gait is steady, no difficulty with heel and toe walk, although he does report some pain to the left plantar foot with toe walk. No scarring, redness, lesions, or sign of infection noted to the lumbar region. He experiences pain to deep palpation across the LS facets, as well as pain with facet loading. He also reports mild tenderness palpation of the right SI joint. Range of motion of his back is limited with extension, which produces low back pain, as well as left right lateral flexion, but is within normal limits with forward flexion, can reach tohis toes. Sitting straight leg lift is negative bilaterally. Motor strength to lower extremities is5/5 with hip flexion, knee extension and flexion, ankle dorsiflexion, plantar flexion and hallux extension bilaterally. No color change, redness, warmth, edema or discrepancy in calf size noted to the lower extremities. Sensation to palpation of the lower extremities is equal and intact bilaterally, although he does report some intermittent numbness and tingling of the right lateral thigh, left calf, dorsal feet, plantar left foot. No clonus and downgoing Babinski's bilaterally. Patellar and achilles reflexes are 2/4 bilaterally. Dorsalis pedis pulses are +2 bilaterally. Capillary refill of the lower extremities is less than 3 seconds bilaterally. Impression: Lumbar radiculopathy Recommendations: I spent 50 minutes today reviewing the patient's medical record, obtaining history, performing an exam, ordering medications, tests, and/or procedures, documenting in the medical record, counseling and educating the patient/family/caregiver, reviewing and communicating test results and coordinationof care. We discussed a bilateral L5-S1 lumbar transforaminal epidural steroid injection as a treatment option. The procedure was described in detail as were the risks, benefits and alternative treatments, and she verbalized understanding. Risks including, but not limited to infection, permanent neurological deficit due to nerve root injury, bleeding, anaphylaxis, flushing, cerebral spinal fluid leak, paralysis, spinal cord injury, thinning of the skin, thinning of the bones, muscle cramping, were reviewed with him and he verbalized understanding. He is agreeable to a plan to have the lumbar t ransforaminal epidural steroid injection procedure completed by Dr. Taylor at his next office visit. It was my pleasure to participate in his care. Thank you for referring this very pleasant patient. AIDA POLK CC: Anil Gupta MD Cosigned by Caridad Taylor MD at 10/17/2020 12:03 PM CDT documented in this encounter OR Notes * Op Note - Caridad Taylor MD - 11/13/2020 10:09 AM CDT PROCEDURE: LUMBAR TRANSFORAMINAL EPIDURAL STEROID [...] Date/Time Associated Diagnosis Comments INJECTION EPIDURAL TRANSFORAMINAL 11/13/2020 9:57 AM CDT lumbar radiculopathy XR PAIN CLINIC C-ARM Today 11/13/2020 9:20 AM CDT documented in this encounter Results * XR PAIN CLINIC C-ARM (11/13/2020 9:20 AM CDT) Narrative Radiology, Technologist - 11/13/2020 9:20 AM CDT This report does not contain a radiologist's interpretation. Please review associated procedure and/or operative report. Caridad Taylor MD GENERAL IMAGING Final Result documented in this encounter Visit Diagnoses Diagnosis Lumbar radiculopathy- Primary Thoracic or lumbosacral neuritis or radiculitis, unspecified documented in this encounter Administered Medications Inactive Administered Medications - up to 3 most recent administrations Medication Order MAR Action Action Date Dose Rate Site chlorhexidine (PERIDEX) 0.12 % solution 15 mL 15 mL, Mouth/Throat, PRN, Prior to surgery, 1 dose, Starting on Thu11/13/20 at 0929, Until Thu11/13/20 at 1223, Patient to perform oral care first. Swish/Gargle in mouth for 30 seconds, and then discard, prior to going to surgery/ If ventilated use saturated swab to clean oral cavity., Pre-Op diazePAM (VALIUM) tablet 5 mg 5 mg, Oral, Once as needed, Anxiety, 1 dose, Starting on Thu11/13/20 at 0929, Until Thu11/13/20 at 0933, Pre-Op Given 11/13/2020 9:33 AM CDT 5 mg documented in this encounter Active and Recently Administered Medications Times are shown in CDT. PRN Medication Order 11/11/2020 11/12/2020 11/13/2020 BUpivacaine (MARCAINE) 0.25 % injection (CANCELED) As needed, Starting on Thu11/13/20 at 1003, Until Thu11/13/20 at 1009, Intra-Op 1006 (Given - Provid er: Caridad Taylor MD) chlorhexidine (PERIDEX) 0.12 % solution 15 mL 15 mL, Mouth/Throat, PRN, Prior to surgery, 1 dose, Starting on Thu11/13/20 at 0929, Until Thu11/13/20 at 1223, Patient to perform oral care first. Swish/Gargle in mouth for 30 seconds, and then discard, prior to going to surgery/ If ventilated use saturated swab to clean oral cavity., Pre-Op diazePAM (VALIUM) tablet 5 mg (COMPLETED) 5 mg, Oral, Once as needed, Anxiety, 1 dose, Starting on Thu11/13/20 at 0929, Until Thu11/13/20 at 0933, Pre-Op 0933 (Given - Provid er: Lilliana Mcgrath RN) iopamidol (ISOVUE-M 300) 61 % injection (CANCELED) As needed, Starting on Thu11/13/20 at 1001, Until Thu11/13/20 at 1009, Intra-Op 1001 (Given - Provid er: Caridad Taylor MD) lidocaine (PF) (XYLOCAINE) 1 % injection (CANCELED) As needed, Starting on Thu11/13/20 at 1001, Until Thu11/13/20 at 1009, Intra-Op 1004 (Given - Provid er: Caridad Taylor MD) methylPREDNISolone acetate (DEPO-Medrol) injection (CANCELED) As needed, Starting on Thu11/13/20 at 1004, Until Thu11/13/20 at 1009, Intra-Op 1006 (Given - Provid er: Caridad Taylor MD) documented in this encounter Care Teams Business Support Liaison Relationship Specialty Start Date End Date Anil Gupta MD [address] [place] [address] PCP - General INTERNAL MEDICINE 10/17/20 documented as of this encounter
--- OUTSIDE RECORDS SUMMARY | 2024-03-19 07:23 | XMS_ITS | Encounter Summary ---
Author Organization [facility] Address [address] [place] [address]. [place] [address] [place] [address] Care Team Providers Care Daycare Teacher Name Role Phone Anil Gupta MD Primary Care Provider [phone] Reason for Visit * Auth/Cert Specialty Diagnoses / Procedures Referred By Enio t Referred To Contact Diagnoses lumbar radiculopathy Procedures INJECTION EPIDURAL TRANSFORAMINAL L5-S1 Referral ID Status Reason Start Date Expiration Date Visits Re quested Visits Authorized [id number] 1 1 Encounter Details Date Type Department Care Team (Late st Contact Info) Description 11/13/2020 10:00 AM CDT - 11/13/2020 10:20 AM CDT Surgery [facility] [place] [address] [id number] Caridad Taylor MD Three [facility] [address] [place], [place] [id number] INJECTION EPIDURAL TRANSFORAMINAL L5-S1 Surgery Details Date/Time Status Location OR Service Patient Class Case Class Case Type Trauma Case? 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 [place] Interventional Pain Management Discharge Instructions WHAT [...] DOCTOR AND HOW TO REACH US: Call [phone] for scheduling, insurance questions or speak with [...] were discussed with the patient and/or family/personal sales representative printing paper. Questions were answered and the patient/family/personal sales representative printing paper verbalized understanding and desires to proceed. Previous Adverse Experience with Sedation, Analgesia, or Anesthesia? No Risk benefits and alternate treatments were discussed. Signed: CARIDAD TAYLOR MD 9:31 AM Source Note - Tracy EspinosaAIDA - 10/17/2020 11:00 AM CDT Summary: Low [...] He has been undergoing physical therapy at [facility] in [place], [place], states he is completed 3 weeks [...] BA, AB, BS) Occupational History ??? 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 Smoking status: Never [...] Gatherings with Friends and Family: ??? Attends Worship Services: ??? Active Member of Clubs or [...] an MRI of the lumbar spine at [facility] in [place], [place] on10/04/2020. The radiologist report was reviewed [...] an x-ray of the lumbar spine at [facility] in [place], [place] on 10/04/2020. The radiologist report was [...] 0.25 % injection As needed, Starting on Thu11/13/20 at 1003, Until Thu11/13/20 at 1009, Intra-Op Given 11/13/2020 10:06 AM CDT 2 mLs Lumbar Spine chlorhexidine [...] Given 11/13/2020 9:33 AM CDT 5 mg iopamidol (ISOVUE-M 300) 61 % injection As needed, Starting on Thu11/13/20 at 1001, Until Thu11/13/20 at 1009, Intra-Op Given 11/13/2020 10:01 AM CDT 5 mLs Lumbar Spine lidocaine (PF) (XYLOCAINE) 1 % injection As needed, Starting on Thu11/13/20 at 1001, Until Thu11/13/20 at 1009, Intra-Op Given 11/13/2020 10:04 AM CDT 2 mLs Back methylPREDNISolone acetate (DEPO-Medrol) injection As needed, Starting on Thu11/13/20 at 1004, Until Thu11/13/20 at 1009, Intra-Op Given 11/13/2020 10:06 AM CDT 80 mg Lumbar Spine documented [...] MD) documented in this encounter Care Teams Daycare Teacher Relationship Specialty Start Date End Date Anil Gupta MD [address] [place] [phone] PCP - General INTERNAL MEDICINE 10/17/20 documented as of this encounter
--- OUTSIDE RECORDS SUMMARY | 2024-03-19 07:23 | XMS_ITS | Encounter Summary ---
Author Organization [facility] Address [address] [place] [address]. 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
--- OUTSIDE RECORDS SUMMARY | 2024-03-19 07:23 | XMS_ITS | Encounter Summary ---
Author Organization [facility] Address [facility] [place] [address] [place] [address] Care Team Providers Care Precipitator Operator Name Role Phone Anil Gupta MD Primary Care Provider [phone] Reason for Visit * Consultation/Treatment (Routine) - Closed Specialty Diagnoses / Procedures Referred By Contac t Referred To Contact PAIN MANAGEMENT / [facility] Pain Management Diagnoses Low back pain lbp Procedures LBP Anil Gupta MD [address] [place] [address] Phone: tel: fax: Tracy Espinosa APNP Phone: tel: fax: Referral ID Status Reason Start Date Expiration Date Visits Re quested Visits Authorized [id number] Closed 10/10/2020 11/10/2021 10 10 Encounter Details Date Type Department Care Team (Latest Contact Info) Description 10/17/2020 10:04 AM CDT - 10/17/2020 11:59 PM CDT Hospital Encounter [facility] Interventional [place] [address] [id number] Tracy Espinosa APNP [address] [place] [phone] Discharge Disposition: Home or Self Care (Routine [...] 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 No / Unsure 10/17/2020 9:51 AM CDT documented as of this encounter Last Filed Vital Signs Vital Sign Reading Time Taken Comments Blood Pressure 114/77 10/17/2020 10:21 AM CDT Pulse 72 10/17/2020 10:21 AM CDT Temperature 36.4 ??C (97.6 ??F) 10/17/2020 1 0:21 AM CDT Respiratory Rate 20 10/17/2020 10:2 1 AM CDT Oxygen Saturation 97% 10/17/2020 10: 21 AM CDT Inhaled Oxygen Concentration - - Weight 87.9 kg (193 lb 12.8 oz) 021 10:21 AM CDT Height 182.9 cm (6') 10/17/2020 10:21 AM CDT Body Mass Index 26.28 10/17/2020 10:21 AM CDT documented in this encounter Medications at Time of Discharge azithromycin 500 MG tablet Take 500 mg by mouth daily. Thursday, Thursday and Thursday celecoxib 200 MG capsule Take 200 mg by mouth daily. tiZANidine 4 MG tablet Take 4 mg by mouth daily. valACYclovir 500 MG tablet Take 500 mg by mouth daily. diazePAM 5 MG tabletIndications:L umbar radiculopathy Take 1 tablet (5 mg total) by mouth once for 1 dose. Take 1 tabs po 1 hour prior to procedure 1 tablet 11/13/2020 Pregabalin 300 MG Cap Take 1 tablet by mouth daily. 1 tiZANidine HCl 4 MG Cap Take 1 capsule by mouth nightly at bedtime. 06/21/2020 1 documented as of this encounter H&P Notes * Tracy Espinosa, AIDA - 10/17/2020 11:00 AM CDTSummary: Low back pain that radiates to the [...] He has been undergoing physical therapy at [facility] in [place], [place], states he is completed 3 weeks [...] BA, AB, BS) Occupational History ??? 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 Smoking status: Never [...] Gatherings with Friends and Family: ??? Attends Evangelical Services: ??? Active Member of Clubs or [...] an MRI of the lumbar spine at [facility] in [place], [place] on10/04/2020. The radiologist report was reviewed [...] an x-ray of the lumbar spine at [facility] in [place], [place] on 10/04/2020. The radiologist report was [...] MD Cosigned by La Taylor MD at 10/17/2020 12:03 PM CDT documented in this encounter Plan of Treatment Not on file documented as of this encounter Visit Diagnoses Not on filedocumented in this encounter Care Teams Precipitator Operator Relationship Specialty Start Date End Date Anil Gupta MD [address] [place] [phone] PCP - General INTERNAL MEDICINE 10/17/20 documented as of this encounter
--- OUTSIDE RECORDS SUMMARY | 2024-03-19 07:23 | XMS_ITS | Encounter Summary ---
Author Organization [facility] Address [facility] [place] [address] [place] [address] Care Team Providers Care Receiving Team Member Name Role Phone Anil Gupta MD Primary Care Provider [phone] Reason for Referral * Surgical (Routine) - Closed Specialty Diagnoses / Procedures Referred By Contac t Referred To Contact Procedures Case request operating room: INJECTION EPIDURAL TRANSFORAMINAL [id number] Caridad Taylor MD [facility] [address] [place] [address] Phone: tel: fax: Referral ID Status Reason Start Date Expiration Date Visits Re quested Visits Authorized [id number] Closed 12/04/2020 01/03/2022 1 1 Reason for Visit * Auth/Cert Specialty Diagnoses / Procedures Referred By Contac t Referred To Contact Diagnoses lum rad Procedures INJECTION EPIDURAL TRANSFORAMINAL [id number] Referral ID Status Reason Start Date Expiration Date Visits Re quested Visits Authorized [id number] 1 1 Encounter Details Date Type Department Care Team (Latest Contact Info) Description 12/04/2020 8:18 AM CDT - 12/04/2020 9:30 AM CDT Hospital Encounter [facility] [place] [address] [phone] Caridad Taylor MD [facility] [address] [place] [address] [phone] Discharge Disposition: Home or Self Care (Routine [...] 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 [place] Discharge Instructions WHAT TO [...] DOCTOR AND HOW TO REACH US: Call [phone] for scheduling, insurance questions or speak with [...] BA, AB, BS) Occupational History ??? 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 Smoking status: Never [...] Gatherings with Friends and Family: ??? Attends [employer] Services: ??? Active Member of Clubs or [...] at 0837, Until Thu12/04/20 at 1130, Pre-Op documented in this encounter Active and [...] MD) documented in this encounter Care Teams Receiving Team Member Relationship Specialty Start Date End Date [place] [id number] PCP - General INTERNAL MEDICINE 10/17/20 documented as of this encounter
--- OUTSIDE RECORDS SUMMARY | 2024-03-19 07:23 | XMS_ITS | Encounter Summary ---
Author Organization [facility] Address [address] [place] [address]. 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
--- OUTSIDE RECORDS SUMMARY | 2024-03-19 07:26 | XMS_ITS | Clinical Summary ---
Author Organization [facility] Address [address] [place] [address] Care Team Providers Care Soft Sugar Cutter Name Role Phone Anil Gupta MD Primary Care Provider [phone] Anil Gupta MD Unavailable [phone] Adrien Young MD Unavailable [phone] Milad Garcia MD Unavailable Doni Marino MD Unavailable Edmundo Guajardo MD Unavailable [phone] Allergies No known active allergies Medications rOPINIRole (REQUIP) 2 mg tablet Take 1 tablet (2 mg total) by mouth nightly Active ipratropium (ATROVENT) 42 mcg (0.06 %) nasal spray Administer 2 sprays into each nostril 2 (two) times a day Active fluticasone propionate (FLONASE) 50 mcg/actuation nasal spray Administer 2 sprays into each nostril 2 (two) times a day Active famotidine (PEPCID) 20 mg tablet Take 1 tablet (20 mg total) by mouth 2 (two) times a day 03/04/20 22 Active benralizumab (Fasenra) 30 mg/mL syringe Inject 1 mL (30 mg total) under the skin Gets every 2 month- next dose on 03/07/2024 12/12/19 20 Active finasteride (PROSCAR) 5 mg tablet Take 1 tablet (5 mg total) by mouth daily 03/13/20 23 Active pregabalin (LYRICA) 150 mg capsule Take 1 capsule (150 mg total) by mouth 3 (three) times a day 270 capsule 1 05/04/19 24 Active magnesium gluconate 200 mg tabletIndications :hypomagnesemia 1 tablet (200 mg total) Active pantoprazole DR (PROTONIX) 40 mg EC tablet Take 1 tablet (40 mg total) by mouth 2 (two) times a day 60 tablet 1 09/16/19 24 Active Edex 10 mcg injection 10/13/[address] (CYMBALTA) 30 mg capsule 1 capsule (30 mg total) 04/10/[address] (NexIUM) 20 mg capsule Take 1 capsule (20 mg total) by mouth daily before breakfast 04/04/19 23 Active Trelegy Ellipta 200-62.5-25 mcg inhaler Inhale 1 puff daily 10/06/19 24 Active ondansetron ODT (ZOFRAN-ODT) 8 mg disintegrating tablet Active tiZANidine (ZANAFLEX) 2 mg tablet 1 tablet (2 mg total) 04/10/19 24 Active nortriptyline (PAMELOR) 25 mg capsule Take 1 capsule (25 mg total) by mouth nightly 90 capsule 3 11/06/19 24 025 Active sildenafiL (VIAGRA) 100 mg tablet Take 1 tablet (100 mg total) by mouth daily as needed for erectile dysfunction Active Ventolin HFA 90 mcg/actuation inhaler Inhale 2 puffs every 6 (six) hours as needed 01/27/20 24 Active HYDROcodone-aceta minophen (NORCO) 5-325 mg per tabletIndications :Pain Take 1 tablet by mouth every 4 (four) hours as needed for pain for up to 24 doses 24 tablet 02/22/20 24 Active HYDROcodone-aceta minophen (NORCO) 7.5-325 mg per tabletIndications :Pain Take 1 tablet by mouth every 6 (six) hours as needed for pain for up to 24 doses 24 tablet 02/22/20 24 Active nystatin 100,000 unit/mL suspensionIndicat ions:Thrush Swish and swallow 5cc QID x 10 days. 200 mL 1 03/04/20 24 Active nystatin creamIndications: Thrush Apply to corners of mouth as needed BID x 14 days then PRN 15 g 2 03/04/20 24 Active tobramycin (NEBCIN) 40 mg/mL solutionIndicatio ns:Chronic pansinusitis 160mg Tobramycin in 1 liter of sodium chloride SIG: Using a bulb syringe, rinse both nostrils BID x 14 days 4 mL 03/04/20 24 Active sodium chloride 0.9% 0.9 % irrigationIndicat ions:Chronic pansinusitis Mix with 160mg Tobramycin with 1 liter of sodium chloride SIG: Using a bulb syringe, rinse both nostrils BID x 14 days 1000 mL 03/04/20 24 Active tobramycin (NEBCIN) 40 mg/mL solutionIndicatio ns:Chronic pansinusitis 160mg Tobramycin in 1 liter of sodium chloride SIG: Using a bulb syringe, rinse both nostrils BID x 14 days 4 mL 10/28/19 24 024 Discontinu ed(Reorder ) sodium chloride 0.9% 0.9 % irrigationIndicat ions:Chronic pansinusitis Mix with 160mg Tobramycin with 1 liter of sodium chloride SIG: Using a bulb syringe, rinse both nostrils BID x 14 days 1000 mL 10/28/19 24 024 Discontinu ed(Reorder ) predniSONE (DELTASONE) 10 mg tablet 10/06/19 24 024 Discontinu ed(Stop Taking at Discharge) nystatin 100,000 unit/mL suspensionIndicat ions:Thrush Swish and swallow 5cc QID x 10 days. 200 mL 02/08/20 24 024 Discontinu ed(Reorder ) predniSONE (DELTASONE) 10 mg tablet Take 2 tablets (20 mg) by mouth 2 (two) times a day for 4 days 16 tablet 02/22/20 24 024 ciprofloxacin (Cipro) 500 mg tablet Take 1 tablet (500 mg total) by mouth 2 (two) times a day for 14 days 28 tablet 02/22/20 24 024 sulfamethoxazole- trimethoprim (BACTRIM DS) 800-160 mg per tabletIndications :Chronic pansinusitis Take 1 tablet (160 mg of trimethoprim total) by mouth 2 (two) times a day for 14 days 28 tablet 03/04/20 24 024 Active Problems Problem Noted Date Diagnosed Date Chronic maxillary sinusitis 02/22/2024 Thrush 12/02/2023 Assessment & Plan (03/05/2024 1:46 PM ORCHARD PRUNER): At his request we are going to give him a course of nystatin suspension swish and swallow along with his nystatin cream that he uses along the oral commissure area if it breaks out. Assessment & Plan (12/02/2023 8:10 PM CDT): He has a pretty severe yeast infection involving his throat. I am going to place him on Mycelex for 10 days. He may need more of this as his antibiotic therapy for his lung disease ensues any understands that. He will call me if the sore throat recurs. Plan is for a follow-up in 6 weeks. Deviated nasal septum 09/16/2023 Chronic pansinusitis 09/16/2023 Assessment & Plan (03/05/2024 1:45 PM ORCHARD PRUNER): His sinuses look much better. The nose is dry but I do not see any active purulent discharge. I did clean a lot of debris out of the ethmoid cavities bilaterally but it was generally moist dissolvable packing. He tolerated that well. He is to different bacteria that we cultured it I am going to treat both of them using a tobramycin nasal rinse and Septra DS. The plan otherwise his to follow- up in about 4 weeks. He asked about using the fluticasone spray and I recommended it. He also asked about the Atrovent nasal spray and I told him to use it only if he starts noticing problems with a runny nose. He understands. Assessment & Plan (01/13/2024 11:07 AM CDT): On nasal endoscopy I do see a slight amount of exudate or crusting in the left ethmoid cavity. Not a lot of discharge otherwise. I talked with him about this. Considering the cough that is persistent I am recommending a sinus CT scan to further assess this involvement. He would like to do that also. Assessment & Plan (12/02/2023 8:08 PM CDT): I think he has had a little bit of improvement, possibly due to the tobramycin rinse that was prescribed. I recommended that he continue with that for now. I am not recommending any further antibiotics as I think he likely will be starting IV antibiotics wants a culture result is available. He understands and he is agreeable with that. I am planning on seeing him in about 6 weeks. Assessment & Plan (10/28/2023 12:59 PM CDT): I suggested that we try treating his sinusitis again with a course of Cipro for 2 weeks. I also would like to have him he used the tobramycin rinse which she has not done yet as I think it might make a difference. He is okay with doing that. The plan is for a follow-up in about 1 month. Could consider a sinus CT scan if problems continue. Assessment & Plan (09/16/2023 12:53 PM CDT): He certainly has problems with chronic bilateral pansinusitis and I think that is probably really what is causing most of his symptoms. He really is against going through any further surgery and I told him that it may not be able to be cleared up without it. I did a culture of his sinuses today on the left side. I am starting on Cipro 500 mg b.i.d. for 2 weeks. I would like to have him follow up in about 6 weeks and we will proceed with a CT scan of the sinuses at that time if he has no better. He did have a sinus CT scan from 11/03/2022 which I reviewed and it does show pretty significant sinusitis. I think that needs to be repeated. Bronchiectasis 05/04/2023 Cough 05/04/2023 Assessment & Plan (01/13/2024 11:08 AM CDT): He is going through some further evaluation with a legal examiner which I think is appropriate. Could be an asthma type cough. We will talk further after the CT scan is complete. Assessment & Plan (12/02/2023 8:08 PM CDT): This seems to be worse. Has loss mitigation specialist is addressing this and he has a culture pending. Assessment & Plan (10/28/2023 1:01 PM CDT): I still think that this cough is probably due to his sinus drainage although his pulmonary problems and reflux disease could potentially be causing this. He really did not notice a significant change when he was on the twice a day proton pump inhibitor so I am not really going to repeat that. He does have a follow up with his legal examiner. I talked with him about trying nortriptyline but he states he already takes it for peripheral neuropathy. We could increase the dose to 50 mg at bedtime and that might help with his cough but I am recommending trying to treat the sinusitis 1st. He understands. He is agreeable with that. Assessment & Plan (09/16/2023 12:55 PM CDT): I think his cough is probably due to sinus drainage and we talked about that. He does have a history of reflux disease and will become symptomatic pretty easily if he stops taking his dkki-hfb-hlyqowa Nexium which he takes once a day. I recommended treating his reflux a little more aggressively with a twice a day dosage of pantoprazole and ultimately he was agreeable with this. We are going to see how things go over the course of about 6 weeks. We discussed laryngopharyngeal reflux disease. It could be causing these symptoms. It can be improved through dietary management and we talked about various dietary changes to consider. Also discussed aggressive treatment through twice a day proton pump inhibitors. I also provided some literature regarding this type of reflux and this included instructions on dietary management. We also discussed the potential long-term side effects of proton pump inhibitors including liver and kidney disease and increased risk of dementia. I do not intend to continue treatment with this medication indefinitely unless there was no other way to get the symptoms under control and the patient wishes to continue taking them. Herpes 05/04/2023 Pseudomonas infection 05/04/2023 Pulmonary eosinophilia 05/04/2023 Recurrent sinus infections 05/04/2023 Restless leg syndrome 05/04/2023 Severe persistent asthma with exacerbation 05/04 Shortness of breath 05/04/2023 Status post lumbar spinal fusion 12/31/2021 Assessment & Plan (12/31/2021 10:21 AM CDT): PLAN: - may increase activity as tolerated with lifting no more than 20 lb at this time. - discontinue brace -may use anti-inflammatories as needed. WORK STATUS: - RETIRED FOLLOW UP APPT: With Dr. Garcia in 3 months with AP/LAT/Flexion/Extension Lumbar spine films. Status post lumbar spinal fusion 11/13/2021 Assessment & Plan (11/20/2021 11:44 AM CDT): Mr. Horn is status post L5-S1 decompression and fusion with washout x2. He is clinically doing well without any significant back pain or leg pain. He has some tingling when he is in the shower and puts his foot up on the raise surface. The cause this is unclear. I plan to see him back in 6 weeks with AP and lateral lumbar spine films at time. His CRP has returned to the normal range. He continues on antibiotics per Infectious Disease. Assessment & Plan (11/13/2021 1:20 PM CDT): Mr. Horn is improved after incision and drainage. He has grown Serratia which is an anaerobic Gram-negative nabor in the Pseudomonas family. He has a history of multiple Pseudomonas lung infections. Because of the infection is unclear. He seems to be recovering well after incision, drainage and antibiotic treatment. I plan to see him back in 1 week for staple removal. Moderate malnutrition 11/04/2021 Severe sepsis 10/29/2021 Infection following a proced ure, deep incisional surgical site, initial encounter 10/29/2021 H/O medication noncompliance 10/29/2021 Overview (05/04/2023): Treated x4, most recently with dificid GERD (gastroesophageal reflux disease) 2 Hyponatremia 10/29/2021 SIADH (syndrome of inappropriate ADH production) 10/29/2021 Infection of lumbar spine (CMS/HCC) 10/28/2021 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 Resolved Problems Problem Noted Date Diagnosed Date Resolved Date Lumbar stenosis without neur ogenic claudication 04/24/2021 11/13/2021 Assessment & Plan (04/24/2021 3:20 PM ORCHARD PRUNER): Mr. Horn has multilevel lumbar stenosis with a disc herniation at L5-S1 on the right. I think that the disc herniation is the most symptomatic and that the lumbar stenosis L3-4 and L4-5 can be followed conservatively. He is very active. We discussed that fusion surgery would likely significantly limit his activities. He is aware that the L3-5 levels may need to be addressed surgically future. I have offered him surgery in the form of right L5-S1 microdiskectomy. Lumbar radiculopathy 04/24/2021 022 Overview (04/24/2021): Added automatically from request for surgery [id number] Assessment & Plan (07/17/2021 4:18 PM CDT): Mr. Horn is status post right L5-S1 microdiskectomy with right pain that is now in distribution. Repeat MRI shows no canal stenosis and could decompression of the S1 nerve root. He seems to have some extraforaminal compression of the L5 nerve on right. We will arrange a selective nerve root injection L5-S1 on the right that should be diagnostic and therapeutic. MRI also shows some synovial cyst and lateral recess compression at L3-4 on the right. If there is no benefit from the initial injection, we may perform L3-4 epidural steroid injection be both diagnostic and therapeutic. We will speak to him by phone about results after the injections. Assessment & Plan (07/08/2021 11:47 AM CDT): Mr. Horn has ongoing right back and leg pain following microdiscectomy with no improvement since surgery. Patient has tried medications to include Medrol dose pack without any relief. Concern is for residual nerve root irritation or re-current disc herniation. Will obtain MRI lumbar spine without contrast to assess for this. WORK STATUS: -RETIRED FOLLOW UP APPT: Pending MRI findings. Preop MRI CD returned to the patient. Encounters Date Type Department Care Team Description 03/04/2024 2:45 PM ORCHARD PRUNER Office Visit [facility] Otolaryngology [address] [place] [phone] Edmundo Guajardo MD Chronic pansinusitis (Primary Dx); Thrush 02/22/2024 7:30 AM ORCHARD PRUNER - 02/22/2024 9:00 AM ORCHARD PRUNER Surgery [facility] [place] [address] [place] [phone] Edmundo Guajardo MD IMAGE GUIDED BILATERAL ENDOSCOPIC ANTERIOR ETHMOIDECTOMY, BILATERAL FRONTAL SINUSOTOMY AND BILATERAL MAXILLARY ANTROSTOMY WITH TISSUE REMOVAL 02/22/2024 7:29 AM ORCHARD PRUNER Anesthesia Event [facility] [place] [address] [place] [phone] Jitendra Can MD Boivin, James R., MD 02/22/2024 5:42 AM ORCHARD PRUNER - 02/22/2024 12:25 PM ORCHARD PRUNER Hospital Encounter [facility] [place] [address] [place] [phone] Edmundo Guajardo MD Chronic maxillary sinusitis [J32.0] (Primary Dx); Chronic pansinusitis Discharge Disposition: Discharge to home or self care 02/09/2024 10:00 AM ORCHARD PRUNER Pre-Admission Testing [facility] PreAdmission Testing [address] [place] [phone] Pre-op testing (Primary Dx) 02/08/2024 Telephone [facility] Otolaryngology [address] [place] [phone] Stefanie Hernandez LPN Thrush 02/04/2024 Orders Only [facility] PreAdmission Testing [address] [place] [phone] Chaparrita Williamson RN 01/20/2024 11:15 AM CDT - 01/20/2024 11:59 PM CDT Hospital Encounter [facility] Outside Films [address] [place] [phone] Discharge Disposition: Discharge to home or self care 01/20/2024 Telephone [facility] Otolaryngology [address] [place] [phone] Edmundo Guajardo MD 01/20/2024 Imaging Exam [facility] Otolaryngology [address] [place] [phone] Edmundo Guajardo MD Chronic pansinusitis (Primary Dx) 01/13/2024 10:15 AM CDT Office Visit [facility] Otolaryngology [address] [place] [phone] Edmundo Guajardo MD Chronic cough (Primary Dx); Chronic pansinusitis 01/01/2024 Telephone [facility] Neu[facility] [address] [place] [address] Audrey, Preston Chandler MD PCP questions for from Last 3 Months Surgical History Surgery Date Site/Laterality Comments MICRODISCECTOMY LUMBAR 06/03/2021 S/P Right L5-S1 Microdiscectomy ([facility]) LATERAL FUSION LUMBAR SPINE 10/11/2021 S/P??L5-S1??TLIF?? ([facility]) INCISION AND DRAINAGE OF WOUND 10/28/2021 - 11/27/2021 X2 - Dr. Sheets & Dr. Garcia SEPTOPLASTY 03/30/2015 - 03/29/2016 EPIDURAL STEROID INJECTION and had INJECTION FACET JOINT ??L3-4, L4-5 TONSILLECTOMY AND ADENOIDECTOMY as a child VASECTOMY COLONOSCOPY SINUS SURGERY 02/22/2024 Bilateral IMAGE GUIDED BILATERAL ENDOSCOPIC ANTERIOR ETHMOIDECTOMY, BILATERAL FRONTAL SINUSOTOMY AND BILATERAL MAXILLARY ANTROSTOMY WITH TISSUE REMOVAL Medical History Medical History Date Comments Peripheral neuropathy GERD (gastroesophageal reflux disease) Arthritis Pseudomonas respiratory infection comes and goes - on penitentiary antibiotics to prevent further mucous build up Lumbar radiculopathy Toxic effect of mercury and its compounds, accidental (unintentional), initial encounter Lead poisoning Asthma Sinusitis Restless leg syndrome ED (erectile dysfunction) Pseudomonas infection h/o Chronic pansinusitis Wears glasses Family History Medical History Relation Name Comments No Known Problems Father No Known Problems Mother Relation Name Status Comments Father Mother Social History Tobacco Use Types Packs/Day Years Used Date Smoking Tobacco: Never Smokeless Tobacco: Never Tobacco Cessation:Counseling Given: Not Answered Alcohol Use Standard Drinks/Week Comments Yes 0 (1 standard drink = 0.6 oz pur e alcohol) Social Connection and Isolat ion Panel [NHANES] Answer Date Recorded In a typical week, how many times do you talk on the phone with family, friends, or neighbors? More than three times a week 10/29/2021 How often do you get togethe r with friends or relatives? Three times a week 10/29/2021 How often do you attend chur ch or church services? 1 to 4 times per year 10/29/2021 Do you belong to any clubs o r organizations such as quaker groups, unions, fraternal or athletic groups, or school groups? No 10/29/2021 How often do you attend meet ings of the clubs or organizations you belong to? Never 10/29/2021 Are you , , di vorced, , never , or living with a partner? 10/29/2021 AUDIT-C Answer Date Recorded Q1: How often do you have a drink containing alcohol? 4 or more times a week 02/22/2024 Q2: How many drinks containi ng alcohol do you have on a typical day when you are drinking? 3 or 4 Q3: How often do you have si x or more drinks on one occasion? Less than monthly 02/22/2024 Overall Financial Resource Strain (CARDIA) Answe r Date Recorded How hard is it for you to pa y for the very basics like food, housing, medical care, and heating? Not very hard 10/29/2021 PHQ-2 Answer Date Recorded PHQ-2 Total Score (If total score is 3 or more points, staff should administer the PHQ-9) 0 04/18/2021 PRAPARE - Transportation Answer Date Re corded In the past 12 months, has l ack of transportation kept you from medical appointments or from getting medications? No 04/2021 In the past 12 months, has l ack of transportation kept you from meetings, work, or from getting things needed for daily living? No 10/29/2021 Personal Safety Answer Date Recorded Have you ever been in or are you currently in a harmful physical or emotional relationship or is someone making you feel afraid or unsafe? Denies 02/22/2024 Sex and Gender Information Value Date Recorded Sex Assigned at Not on file Legal Sex Male 12:56 PM ORCHARD PRUNER Gender Identity Male 05/23/2021 12:08 PM ORCHARD PRUNER Sexual Orientation Straight 05/23/2021 12 :08 PM ORCHARD PRUNER Obstetrics History Last Filed Vital Signs Vital Sign Reading Time Taken Comments Blood Pressure 126/84 02/22/2024 11:30 AM ORCHARD PRUNER Pulse 61 02/22/2024 11:30 AM ORCHARD PRUNER Temperature 36.1 ??C (97 ??F) 02/22/2024 10:05 AM ORCHARD PRUNER Respiratory Rate 18 03/04/2024 2:49 PM ORCHARD PRUNER Oxygen Saturation 95% 02/22/2024 11:30 AM ORCHARD PRUNER Inhaled Oxygen Concentration - - Weight 83.9 kg (185 lb) 03/04/2024 2:49 PM ORCHARD PRUNER Height 182.9 cm (6') 03/04/2024 2:49 PM ORCHARD PRUNER Body Mass Index 25.09 03/04/2024 2:49 PM ORCHARD PRUNER Plan of Treatment Health Maintenance Due Date Last Done Comments Colon Cancer Screening-Colonoscopy 1950 Hepatitis C Screening 1950 Hepatitis B Screening 1969 Zoster Vaccine (1 of 2) 2001 Well Visit 65+ 02/01/2016 Depression Screening 04/18/2022 04/18/2021, 04/18/19 Covid-19 Vaccine (4 - 2023-2 5 season) 2023 11/21/2020, 06/20/2020, 05/23/2020 Influenza Vaccine (#1) 2023 , 02/19/2021, 12/19/2019, Additional history exists Fall Risk Assessment 02/08/2025 02/09/2024 DTaP/Tdap/Td Vaccine (2 - Td or Tdap) 02/18/2026 02/19/2016 Pneumococcal vaccine 65+ Completed 020, 02/25/2020, 02/04/2019, Additional history exists Medical Devices Implanted Type Area Coal Washer Device Identifier Shelf Expiration Date Model / Serial / Lot [employer] Allograft Bone Putty 2.5cc 700-025 - [id number] Implanted:Qty: 1 on 10/11/2021 by Jayy Granger MD at [facility] N/A: Spine Lumbar [employer] [id number] 04/29/2024- / / [id number] [employer] Inqu Paste Mix Plus [place] Member 10cc Bone Graft Hyaluronic Acid Poly [id number] - [id number] Implanted:Qty: 1 on 10/11/2021 by Jayy Granger MD at [facility] N/A: Spine Lumbar [employer] [id number] / / Core Link Foundation L31 Mm X W10 Mm X H11 Mm 3d 12 D Curve Cage Spinal [id number] - [id number] Implanted:Qty: 1 on 10/11/2021 by Jayy Granger MD at [facility] N/A: Spine Lumbar Core Link [id number] 04/12/2023 [id number] / / [id number] Core Link [place] 6.5mm 45mm Spine Pedicle Screw Bone 5500 Series [id number] - [id number] Implanted:Qty: 4 on 10/11/2021 by Jayy Granger MD at [facility] N/A: Spine Lumbar Core Link [id number] / / Core Link [place] Screw Set 5500 Series [id number] - [id number] Implanted:Qty: 4 on 10/11/2021 by Jayy Granger MD at [facility] N/A: Spine Lumbar Core Link [id number] / / Core Link [place] 5.5mm 40mm Line Prebent Nabor Spinal Nonsterile 5500 Series [id number] - [id number] Implanted:Qty: 2 on 10/11/2021 by Jayy Granger MD at [facility] N/A: Spine Lumbar Core Link [id number] / / Procedures Procedure Name Priority Date/Time Associated Diagnosis Comments SURGICAL PATHOLOGY Routine 02/22/2024 8: 57 AM ORCHARD PRUNER Chronic pansinusitis AEROBIC AND ANAEROBIC CULTURE AND GRAM STAIN Routine 02/22/2024 7:54 AM ORCHARD PRUNER VT AN PROCEDURE PLACEHOLDER Routine 02/22/2024 7:47 AM ORCHARD PRUNER VT AN ELECTIVE ENDOTRACHEAL AIRWAY Routine 02/22/2024 7:47 AM ORCHARD PRUNER ENDOSCOPIC SINUS SURGERY WITH NAVIGATION 02/22/2024 7:28 AM ORCHARD PRUNER Chronic pansinusitis Special Needs Image guidance system POC BLOOD GAS AND CHEMISTRIES, VENOUS Routine 02/22/2024 6:57 AM ORCHARD PRUNER ECG 12-LEAD Routine 02/09/2024 9:57 AM ORCHARD PRUNER Pre-op testing NEURO CT OUTSIDE REFERENCE Routine 01/20/2024 11:15 AM CDT from Last 3 Months Results * Surgical pathology (02/22/2024 8:57 AM ORCHARD PRUNER) Tissue (Sinus contents) 02/22/2024 8:57 AM ORCHARD PRUNER Narrative PATHOLOGY [facility] - 02/24/2024 2:53 PM ORCHARD PRUNER [facility] Department of Pathology [address] [place] [address] ?? Note to Patients: ??This report may contain a detailed description of human tissue sent by a health care provider to the laboratory for pathologic evaluation. ??The content of this report is essential for diagnosis and may provide important critical findings. ??This information may be unfamiliar to patients to review without a medical professional present. ?? It is advised that the patient review this report in the presence of a health care provider who can answer questions and explain the details. Final Report Patient Name: LIZETTE HORN : ??1950 (Age: 74) Gender: ??M Address: ??[address] [place] [address] ??[address] [facility] #: [id number] Service: Surgery Location: Patient Type: [facility] OUTPATIENT ? Taken: 02/22/2024 Received: 02/22/2024 Accessioned: 02/22/2024 Reported: 02/24/2024 Physician(s): MD Anil Fields M.D. Diagnosis: A. ??Paranasal sinus, bilateral contents, excision ? - Fragments of respiratory mucosa with mild chronic inflammation and edema ? - Mycetoma (fungal ball) ?? Glendy Bravo MD Report Electronically Reviewed and Signed Out By ??Glendy Bravo MD 02/24/2024 14:53:08 Specimen(s) Received: A: bilateral sinus contents Microscopic Description: Unless gross-only is specified, the final diagnosis for each specimen is based on a microscopic examination of each tissue sample. Clinical History: The patient is a 74-year-old man with chronic pansinusitis. ??Operative procedure: ??Image guided bilateral endoscopic anterior ethmoidectomy, bilateral frontal sinusotomy and bilateral maxillary antrostomy with tissue removal. Gross Description Received in formalin, labeled with the patient? ? s identifiers and bilateral sinus contents and consists of a mesh collection device containing a 2.4 x 1.5 x 0.6 cm aggregate broderick-red, glistening tissue fragments admixed with possible cartilage and bone. The specimen is entirely submitted following light decalcification. ?? Labeled A1. Jar 0. ?? jjmhb/02/23/2024 10:06 MED Roy, [place] ([facility]) Microscopic slide review and interpretation for this case was performed at [facility], Department of Surgical Pathology, [address] [facility], [place] [id number], ??[facility], [place] ??[address] ?? CLIA # [id number] Edmundo Guajardo MD LAB PATHOLOGY ORDERABLES Fi nal Result PATHOLOGY [facility] * (ABNORMAL) Aerobic and anaerobic culture and gram stain Wound Sinus, maxillary, left (02/22/2024 7:54 AM ORCHARD PRUNER) Direct Specimen Exam Stain: Moderate polymorphonuclear leukocytes seen. Moderate Gram Positive Cocci Comment:Testing performed by : [facility], [address] [facility], [place]., [address] Report Final Report: Moderate Staphylococcus aureus Methicillin susceptible (MSSA) by penicillin binding protein 2a (PBP2a) testing. Few Pseudomonas aeruginosa (mucoid morphotype) Rare Mixed microorganisms. (.) MILLI JORDAN Comment:Testing performed by : [facility], [address] [facility] [place]., [address] Organism STAPHYLOCOCCUS AUREUS MILLI Organism PSEUDOMONAS AERUGINOSA (MUCOID MORPHOTYPE) MILLI Organism MIXED MICROORGANISMS. [facility]ILLI Wound (Sinus, maxillary, left) 02/22/2024 7:54 AM ORCHARD PRUNER 02/22/2024 9:38 AM ORCHARD PRUNER Narrative MILLI - 02/26/2024 2:25 PM ORCHARD PRUNER Left maxillary sinus for culture Specimen received in Eswab. Testing performed by [facility] Microbiology Laboratory ([phone]) Specimens submitted from normally sterile body sites will have all bacterial morphotypes identified. Specimens that contain grossly mixed oren and/or are from body sites that are not normally sterile will be examined for Staphylococcus aureus, Pseudomonas aeruginosa, beta-hemolytic strep, vancomycin-resistant Enterococcus, Bacteroides, Parabacteroides, Clostridium perfringens and fungus. If any of these are isolated, the organism will be reported. Current interpretive data was last revised on 2019. Organism Antibiotic Method Susceptibility Staphylococcus aureus Vancomycin INTERPRETATION Susceptible Staphylococcus aureus Trimethoprim with Sulfamethoxazole INTERPRETATION Susceptible Staphylococcus aureus Linezolid INTERPRETATION Susceptible Staphylococcus aureus Doxycycline INTERPRETATION Susceptible Staphylococcus aureus Clindamycin INTERPRETATION Susceptible Staphylococcus aureus Erythromycin INTERPRETATION Resistant Staphylococcus aureus Oxacillin INTERPRETATION Susceptible Staphylococcus aureus Cefazolin INTERPRETATION Susceptible Staphylococcus aureus Ceftriaxone INTERPRETATION Susceptible Pseudomonas aeruginosa (mucoid morphotype) Aztreonam INTERPRETATION Resistant Pseudomonas aeruginosa (mucoid morphotype) Ceftazidime INTERPRETATION Susceptible Pseudomonas aeruginosa (mucoid morphotype) Ciprofloxacin INTERPRETATION Resistant Pseudomonas aeruginosa (mucoid morphotype) Cefepime INTERPRETATION Susceptible Pseudomonas aeruginosa (mucoid morphotype) Imipenem INTERPRETATION Susceptible Pseudomonas aeruginosa (mucoid morphotype) Meropenem INTERPRETATION Susceptible Pseudomonas aeruginosa (mucoid morphotype) Piperacillin/Tazobactam INTERPRETATION Susceptible Pseudomonas aeruginosa (mucoid morphotype) Tobramycin INTERPRETATION Susceptible us Edmundo Guajardo MD LAB MICROBIOLOGY - GENERAL ORDERABLES Final Result [facility]ILLI JORDAN [address] [facility] Department [place] [address] * VT AN ELECTIVE ENDOTRACHEAL AIRWAY, VT AN PROCEDURE PLACEHOLDER (02/22/2024 7:47 AM ORCHARD PRUNER) Narrative Mirlande Hernandez CRNA - 02/22/2024 7:47 AM ORCHARD PRUNER Mirlande Hernandez CRNA ? 02/22/2024 ??7:48 AM Airway Patient location: OR Urgency: elective Indications for airway management: anesthesia Difficult airway: no Staff: Supervising provider: Jitendra Can MD Placed by: COAL CUTTING MACHINE OPERATOR: Mirlande Hernandez CRNA Emergent airway documentation: Risks and benefits discussed: yes Consent obtained: yes Consent given by: patient Airway prep: Preoxygenated: yes Patient position: sniffing Mask difficulty assessment: 2 - vent by mask + OA or adjuvant Spontaneous ventilation during airway: absent Sedation level during airway: deep Final airway details: Final airway type: endotracheal airway Tube type: ETT ETT size: 8.0 mm Cuffed: yes Technique used for successful ETT placement: direct laryngoscopy Devices/Methods used in placement: intubating stylet and cricoid pressure (for visualization) Insertion site: oral Blade type: Renaldo Blade size: 3 Cormack-Lehane (direct): grade IIa - partial view of glottis Cuff volume: 8 mL Cuff inflated with: air ETT to teeth: 23 cm Placement verified by: auscultation and CO2 detection Airway secured with: silk tape Number of attempts: 1 Additional comments: No change in dentition from preoperative status. Jitendra Can MD ANESTHESIA ORDERABLES Final Resu lt * (ABNORMAL) POC Blood Gas and Chemistries, Venous - (02/22/2024 6:57 AM ORCHARD PRUNER) [facility] pH,bryanna POC 7.40 7.32 - 7.43 pCO2, bryanna POC 45 40 - 50 mmHg [facility] pO2,bryanna POC 29 mmHg [facility] Comment: Interpretive Data No reference range established. Current interpretive data was last revised 2019. HCO3, bryanna (Calc) POC 28 20 - 30 mmol/L MILLI Base excess, bryanna POC 3 mmol/L [facility] Comment: Interpretive Data No reference range established. Current interpretive data was last revised 2019. Hemoglobin, bryanna POC 12.9(L) 13.0 - 17.5 g/dL [facility] Hematocrit, bryanna POC 38.0(L) 38.9 - 50.3 % [facility] Sodium, bryanna POC 128(L) 135 - 145 mmol/L [facility] Potassium, bryanna POC 4.4 3.3 - 4.9 mmol/L [facility] Comment: Interpretive Data This method is not able to assess for hemolysis, which may falsely increase potassium concentrations. If further testing is needed to evaluate this result, consider in-laboratory plasma potassium. Current Interpretive Data was last revised on 2021. Glucose, bryanna POC 97 70 - 199 mg/dL [facility] Ionized Calcium, bryanna POC 4.90 4.50 - 5.10 mg/dL [facility] Blood 02/22/2024 6:57 AM ORCHARD PRUNER 02/22/2024 6:57 AM ORCHARD PRUNER us Edmundo Guajardo MD LAB POCT ORDERABLES - DEVIC E Final Result Performing Organization Address City/[facility]/ZIP Co de Phone Number [address] Department [place] [address] * ECG 12 lead (02/09/2024 9:57 AM ORCHARD PRUNER) Ventricular Rate EKG/Min 74 BPM [facility] Atrial Rate 74 BPM [facility] VT-Interval (MSEC) 186 ms [facility] QRS-Interval (MSEC) 142 ms [facility] QT-Interval (MSEC) 380 ms [facility] QTc 421 ms [facility] P [place] 19 degrees [facility] R [place] -34 degrees [facility] T [place] 6 degrees [facility] Diagnosis Normal sinus rhythm Left axis deviation Right bundle branch block No previous ECGs available Confirmed by SULTAN MAJOR M.D. ([id number]) on 02/09/2024 2:43:31 PM [facility] 02/09/2024 9:57 AM ORCHARD PRUNER 02/09/2024 2:43 PM ORCHARD PRUNER us Clif Leung MD ECG ORDERABLES Final Result [facility] * Neuro CT Outside Reference (01/20/2024 11:15 AM CDT) Narrative [facility] - 02/04/2024 3:52 PM ORCHARD PRUNER This order has been auto-finalized and does not contain a result. us Provider Transcribed Order IMG CT PROCEDURES Fin al Result RAD_PATTIE_[facility]_MHE from Last 3 Months Insurance [facility] MEDICARE AETNA SENIOR SUPPLEMENT MEDICARE AET SENIOR SUPPLEMENT MEDICARE AET SENIOR SUPPLEMENT MEDICARE AET SENIOR SUPPLEMENT MEDICARE Advance Directives For more information, please contact: [phone] Documents on File Type Date Recorded Patient Shingle Catcher Expl anation Power of Glass Bender 02/22/2024 5:42 AM * Full Code (Latest Code Status on File) Date Activated Date Inactivated Comments 10/28/2021 10:29 PM 11/06/2021 5:42 PM * Full Code Date Activated Date Inactivated Comments 10/11/2021 4:02 PM 10/12/2021 5:28 PM Care Teams Soft Sugar Cutter Relationship Specialty Start Date End Date Anil Gupta MD [address] [place] [address] PCP - General Internal Medicine 04/19/21 Anil Gupta MD [address] [place] [address] Internal Medicine 04/19/21 Adrien Young MD [address] [facility] [address] [place] [address] Consulting Physician Infectious Diseases 11/06/21 Milad Garcia MD [address] [place] [address] Consulting Physician Orthopedic Surgery 03/02/23 Doni Marino MD [address] [place] [address] Referring Physician Pulmonary Disease 02/09/24 Edmundo Guajardo MD [address] [place] [address] Consulting Physician Otolaryngology 02/22/24
--- OUTSIDE RECORDS SUMMARY | 2024-03-19 07:27 | XMS_ITS | Encounter Summary ---
Author Organization [facility] Healthcare Address [address] [place] [address] Care Team Providers Care Delivery Room Supervisor Name Role Phone Anil Gupat MD Primary Care Provider [phone] Anil Gupta MD Unavailable [phone] Adrien Young MD Unavailable [phone] Milad Garcia MD Unavailable [phone] Encounter Details Date Type Department Care Team (Latest Contact Info) Description 09/16/2023 7:37 PM CDT - 09/16/2023 11:59 PM CDT Hospital Encounter [facility] [address] [place] [id number] Chronic pansinusitis Discharge Disposition: Discharge to home or self care Social History Tobacco Use Types Packs/Day Years [...] often do you attend chur ch or sabianism services? 1 to 4 times per year 10/29/2021 Do you belong to any clubs o r organizations such as spiritism groups, unions, fraternal or athletic groups, or school groups? No 10/29/2021 How often do you attend meet ings of the clubs or organizations you belong to? Never 10/29/2021 Are you , , di vorced, , never , or living with a partner? 10/29/2021 AUDIT-C Answer Date Recorded Q1: How often do you have a drink containing alcohol? 4 or more times a week 10/02/2021 Q2: How many drinks containi ng alcohol do you have on a typical day when you are drinking? 1 or 2 Q3: How often do you have si x or more drinks on one occasion? Never 10/02/2021 Overall Financial Resource Strain (CARDIA) Ans[place] r [...] things needed for daily living? No 10/29/2021 Sex and Gender Information Value Date Recorded Sex Assigned at Not on file Legal Sex Male 12:56 PM BUS ANALYST Gender Identity Male 05/23/2021 12:08 PM BUS ANALYST Sexual Orientation Straight 05/23/2021 12 :08 PM BUS ANALYST documented as of this encounter Medications at Time of Discharge benralizumab (Fasenra) 30 mg/mL syringe Inject 1 mL (30 mg total) under the skin Gets every 2 month- next dose on 03/07/2024 12/12/[address] (CYMBALTA) 30 mg capsule 1 capsule (30 mg total) 04/10/[address] (NexIUM) 20 mg capsule Take 1 capsule (20 mg total) by mouth daily before breakfast 04/04/2022 famotidine (PEPCID) 20 mg tablet Take 1 tablet (20 mg total) by mouth 2 (two) times a day 03/04/2022 finasteride (PROSCAR) 5 mg tablet Take 1 tablet (5 mg total) by mouth daily 03/13/2023 fluticasone propionate (FLONASE) 50 mcg/actuation nasal spray Administer 2 sprays into each nostril 2 (two) times a day ipratropium (ATROVENT) 42 mcg (0.06 %) nasal spray Administer 2 sprays into each nostril 2 (two) times a day magnesium gluconate 200 mg tabletIndication s:hypomagnesemia 1 tablet (200 mg total) pantoprazole DR (PROTONIX) 40 mg EC tablet Take 1 tablet (40 mg total) by mouth 2 (two) times a day 60 tablet 1 09/16/2023 pregabalin (LYRICA) 150 mg capsule Take 1 capsule (150 mg total) by mouth 3 (three) times a day 270 capsule 1 05/04/2023 rOPINIRole (REQUIP) 2 mg tablet Take 1 tablet (2 mg total) by mouth nightly tiZANidine (ZANAFLEX) 2 mg tablet 1 tablet (2 mg total) 04/10/2023 ciprofloxacin (Cipro) 500 mg tablet Take 1 tablet (500 mg total) by mouth 2 (two) times a day for 14 days 28 tablet 09/16/2023 4 nortriptyline (PAMELOR) 25 mg capsule Take 1 capsule (25 mg total) by mouth nightly 30 capsule 11 08/20/2023 4 documented as of this encounter Discharge Disposition Disposition Code Departure Means Destination Discharge to home or self care documented in this encounter Plan of Treatment Not on file documented as of this encounter Procedures Procedure Name Priority Date/Time Associated Diagnosis Comments AEROBIC CULTURE AND GRAM STAIN Routine 09/16/2023 9:38 AM CDT Chronic pansinusitis documented in this encounter Results * (ABNORMAL) Aerobic culture and gram stain Drainage Sinus, maxillary, left (09/16/2023 9:38 AM CDT) Direct Specimen Exam Stain: Few polymorphonuclear leukocytes seen. Moderate Gram Positive Cocci Moderate Gram Negative Bacilli Comment:Testing performed by : [facility], [address] [facility], [place]., [address] Report Final Report: Moderate Staphylococcus aureus Methicillin susceptible (MSSA) by penicillin binding protein 2a (PBP2a) testing. This isolate is presumed to be resistant to clindamycin based on detection of inducible clindamycin resistance. Clindamycin may still be effective in some patients. This Staphylococcus aureus is a [id number] producing strain. ??This isolate is resistant to oxacillin but not cephalosporin agents. Few Pseudomonas aeruginosa (mucoid morphotype) Few Pseudomonas aeruginosa (.) [facility] Comment:Testing performed by : [facility], [address] [place]., [address] Organism STAPHYLOCOCCUS AUREUS [facility] Organism PSEUDOMONAS AERUGINOSA (MUCOID MORPHOTYPE) [facility] Organism PSEUDOMONAS AERUGINOSA [facility] Drainage (Sinus, maxillary, left) 09/16/2023 9:38 AM CDT 09/17/2023 12:14 AM CDT Narrative [facility] - 09/21/2023 11:03 AM CDT AEROBIC \T\ ANAEROBIC CULTURE \T\ SENSITIVITY Testing performed by [facility] Microbiology Laboratory ([phone]) Specimens submitted from normally sterile body sites will have all bacterial morphotypes identified. ??Specimens that contain grossly mixed oren and/or are from body sites that are not normally sterile will be examined for Staphylococcus aureus, Pseudomonas aeruginosa, beta-hemolytic strep, vancomycin-resistant Enterococcus and fungus. ??If any of these are isolated, the organism will be reported. Current interpretive data was last revised on 2016. Organism Antibiotic Method Susceptibility Staphylococcus aureus Vancomycin INTERPRETATION Susceptible Staphylococcus aureus Trimethoprim with Sulfamethoxazole INTERPRETATION Susceptible Staphylococcus aureus Linezolid INTERPRETATION Susceptible Staphylococcus aureus Doxycycline INTERPRETATION Susceptible Staphylococcus aureus Clindamycin INTERPRETATION Resistant Staphylococcus aureus Erythromycin INTERPRETATION Resistant Staphylococcus aureus Oxacillin INTERPRETATION Resistant Staphylococcus aureus Cefazolin INTERPRETATION Susceptible Staphylococcus aureus Ceftriaxone INTERPRETATION Susceptible Pseudomonas aeruginosa (mucoid morphotype) Aztreonam INTERPRETATION Intermediate Pseudomonas aeruginosa (mucoid morphotype) Ceftazidime INTERPRETATION Susceptible Pseudomonas aeruginosa (mucoid morphotype) Ciprofloxacin INTERPRETATION Resistant Pseudomonas aeruginosa (mucoid morphotype) Cefepime INTERPRETATION Susceptible Pseudomonas aeruginosa (mucoid morphotype) Imipenem INTERPRETATION Susceptible Pseudomonas aeruginosa (mucoid morphotype) Meropenem INTERPRETATION Susceptible Pseudomonas aeruginosa (mucoid morphotype) Piperacillin/Tazobactam INTERPRETATION Susceptible Pseudomonas aeruginosa (mucoid morphotype) Tobramycin INTERPRETATION Susceptible Pseudomonas aeruginosa Aztreonam INTERPRETATION Intermediate Pseudomonas aeruginosa Ceftazidime INTERPRETATION Susceptible Pseudomonas aeruginosa Ciprofloxacin INTERPRETATION Resistant Pseudomonas aeruginosa Cefepime INTERPRETATION Susceptible Pseudomonas aeruginosa Imipenem INTERPRETATION Susceptible Pseudomonas aeruginosa Meropenem INTERPRETATION Susceptible Pseudomonas aeruginosa Piperacillin/Tazobactam INTERPR ETATION Susceptible Pseudomonas aeruginosa Tobramycin INTERPRETATION Susceptible Edmundo Guajardo MD LAB MICROBIOLOGY - GENERAL ORDERABLES Final Result Performing Organization Address City/State/ZIP Co ny Phone Number [facility] Department [place] [address] documented in this encounter Visit Diagnoses Diagnosis Chronic pansinusitis Other chronic sinusitis documented in this encounter Care Teams Delivery Room Supervisor Relationship Specialty Start Date End Date Anil Gupta MD [address] [place] [address] PCP - General Internal Medicine 04/19/21 Anil Gupta MD [address] [place] [address] Internal Medicine 04/19/21 Adrien Young MD [address] [address] Consulting Physician Infectious Diseases 11/06/21 Milad Garcia MD [address] [facility] [address] [place] [address] Consulting Physician Orthopedic Surgery 03/02/23 documented as of this encounter
--- OUTSIDE RECORDS SUMMARY | 2024-03-19 07:27 | XMS_ITS | Encounter Summary ---
Author Organization [facility] Address [address] [place] [address] Phone Care Team Providers Care Admissions Consultant Name Role Phone Anil Gupta MD Primary Care Provider [phone] Anil Gupta MD Unavailable [phone] Adrien Young MD Unavailable [phone] Milad Garcia MD Unavailable [phone] Reason for Visit * Reason Comments Follow-up Sinus & cough. Pt st ates he completed Cipro & Pantoprazole as directed. Sinus congestion, cough & PND persist. Encounter Details Date Type Department Care Team (Late st Contact Info) Description 10/28/2023 10:15 AM CDT Office Visit [facility] Otolaryngology [address] [place] [address] Edmundo Guajardo MD [address] [place] [id number] Chronic cough (Primary Dx); Chronic pansinusitis Social History Tobacco Use Types Packs/Day Years [...] 10/29/2021 How often do you attend chur or mormonism services? 1 to 4 times per year 10/29/2021 Do you belong to any clubs o r organizations such as jehovah's witness groups, unions, fraternal or athletic groups, or [...] on file Legal Sex Male 12:56 PM BUILDING ARCHITECT Gender Identity Male 05/23/2021 12:08 PM BUILDING ARCHITECT Sexual Orientation Straight 05/23/2021 12 :08 PM BUILDING ARCHITECT documented as of this encounter Last Filed Vital Signs Vital Sign Reading Time Taken Comments Blood Pressure - - Pulse - - Temperature - - Respiratory Rate 20 10/28/2023 10:10 AM CDT Oxygen Saturation - - Inhaled Oxygen Concentration - - Weight 86.2 kg (190 lb 0.6 oz) 10/28/2023 10:10 AM CDT Height 182.9 cm (6') 10/28/2023 10:10 AM CDT Body Mass Index 25.77 10/28/2023 10:10 AM CDT documented in this encounter Ordered Prescriptions Prescription Sig Dispense Quantity Refills Last Filled Start Date End Date ciprofloxacin (CIPRO) 500 mg tabletIndications: Chronic pansinusitis Take 1 tablet (500 mg total) by mouth 2 (two) times a day for 14 days 28 tablet 10/28/2023 4 sodium chloride 0.9% 0.9 % irrigationIndicati ons:Chronic pansinusitis Mix with 160mg Tobramycin with 1 liter of sodium chloride SIG: Using a bulb syringe, rinse both nostrils BID x 14 days 1000 mL 10/28/2023 4 tobramycin (NEBCIN) 40 mg/mL solutionIndication s:Chronic pansinusitis 160mg Tobramycin in 1 liter of sodium chloride SIG: Using a bulb syringe, rinse both nostrils BID x 14 days 4 mL 10/28/2023 4 documented in this encounter Progress Notes * Edmundo Guajardo MD - 10/28/2023 10:15 AM CDT Douglas Horn is a 73 y.o. male was seen in the office today. Primary care provider is Anil Gupta MD . Chief Complaint: Chief Complaint Patient presents with Follow-up Sinus & cough. Pt states he completed Cipro & Pantoprazole as directed. Sinus congestion, cough & PND persist. HPI: He comes to clinic today for evaluation of his chronic productive cough. He states that he hashad no improvement with this. He took the pantoprazole twice a day. He has not sure really made much of a difference. He also saw his calibrator barometers who treated him with another course of antibiotics and had him start an inhaler. He has not sure that things have improved. Still feels like his sinuses are a problem. He took the Cipro that I prescribed. 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 He has some problems with headaches and facial pressure. He does have a lot of yellow nasal discharge. .. I have reviewed past medical, surgical, family history as well as allergies and medications. Review of Systems Review of Systems Constitutional: Negative for chills, fever and unexpected weight change. HENT: Negative for drooling and facial swelling. Eyes: Negative for pain and discharge. Respiratory: Negative for wheezing and stridor. Cardiovascular: Negative for leg swelling. Gastrointestinal: Negative for diarrhea and vomiting. Endocrine: Negative for polydipsia. Genitourinary: Negative for flank pain. Musculoskeletal: Negative for myalgias. Skin: Negative for color change. Allergic/Immunologic: Negative for immunocompromised state. Neurological: Negative for tremors and seizures. Psychiatric/Behavioral: Negative for hallucinations and self-injury. Vital Signs: Resp 20 Ht 182.9 cm (6') Wt 86.2 kg (190 lb 0.6 oz) BMI 25.77 kg/m?? PHYSICAL EXAMINATION: GENERAL: Normal NEURO/PSYCH: Affect is normal. Alert and oriented. Extraocular muscles are intact. Cranial Nerves: Cranial nerves II-VII and IX-XII are intact and symmetric. HEAD/FACE: Normocephalic; atraumatic. No facial skin lesions. Facial strength is 5/5 and the face is symmetric. EARS : External ears have no skin lesions. Auricles are regularly set on the head. Hearing is grossly intact. Right: Normal canal. Tympanic membrane intact and mobile. Left: Normal canal. Tympanic membrane intact and mobile. NOSE: External nose has no skin lesions. Nasal dorsum is essentialy midline. Nasal septum is nonobstructive. Inferior and middle turbinates are normal size. No mucosal lesions or polyps are seen on either side. There were mild purulent secretions bilaterally. ORAL CAVITY/ OROPHARYNX: Skin of the lips is without lesions. Normal oral vestibule. Oral mucosa ismoist without lesions. Tongue and floor of mouth are without lesions or masses. Palate has no lesions and elevates symmetrically. Tonsils are negative. Oropharynx is clear without erythema or exudate. NECK: Trachea is midline. Thyroid is normal in size with no apparent nodules. Larynx: Base of tongue is symmetric without masses. Epiglottis is normal without edema or mass lesions. Hypopharynx is clear of masses including the pyriform sinuses. The false and true vocal cords are clear of masses. True vocal cords are mobile bilaterally. No paralysis. Salivary Glands: The submandibular glands are non-tender without masses. The parotid glands are non-tender without edema or masses. There is clear saliva flow from Stensen's and [place] Smith's ducts bilaterally. LYMPHATIC: No cervical lymphadenopathy. MUSCULOSKELATAL: Ambulates without difficulty. Neck full range of motion. RESPIRATORY: Breathing comfortably without audible wheeze, stertor or stridor. PROCEDURE: Nasal Endoscopy: Indications: Due to inadequate visualization on anterior rhinoscopy, rigid nasal endoscopy was undertaken. Description: Topical nasal decongestant and anesthesia was applied, a 30 degree 4mm rigid nasal endoscope was introduced into the right and left nasal cavity. The nasal valve areas were examined for abnormalities or collapse. The inferior and middle turbinates were evaluated. The middle and superior meatuses, the sphenoethmoid recesses, and the nasopharynx were inspected for mucopurulence and polyps. Findings: The nasal septum is essentially midline. Inferior turbinates are slightly hypertrophied. Middle turbinates are unremarkable. Middle meatus shows mild exudate bilaterally with open ethmoid cavities and open maxillary sinuses. The middle and superior meatus are both unremarkable bilaterally. Sphenoidethmoid recesses are clear. ASSESSMENT & PLAN: Chronic pansinusitis I suggested that we try treating his sinusitis again with a course of Cipro for 2 weeks. I also would like to have him he used the tobramycin rinse which she has not done yet as I think it might makea difference. He is okay with doing that. The plan is for a follow-up in about 1 month. Could consider a sinus CT scan if problems continue. Cough I still think that this cough is probably due to his sinus drainage although his pulmonary problemsand reflux disease could potentially be causing this. He really did not notice a significant changewhen he was on the twice a day proton pump inhibitor so I am not really going to repeat that. He does have a follow up with his calibrator barometers. I talked with him about trying nortriptyline but he states he already takes it for peripheral neuropathy. We could increase the dose to 50 mg at bedtime and that might help with his cough but I am recommending trying to treat the sinusitis 1st. He understands. He is agreeable with that. Edmundo Guajardo MD documented in this encounter Miscellaneous Notes * Assessment & Plan Note - Edmundo Guajardo MD - 10/28/2023 1:01 PM CDT Associated Problem(s): Cough I still think that this cough is probably due to his sinus drainage although his pulmonary problemsand reflux disease could potentially be causing this. He really did not notice a significant changewhen he was on the twice a day proton pump inhibitor so I am not really going to repeat that. He does have a follow up with his calibrator barometers. I talked with him about trying nortriptyline but he states he already takes it for peripheral neuropathy. We could increase the dose to 50 mg at bedtime and that might help with his cough but I am recommending trying to treat the sinusitis 1st. He understands. He is agreeable with that. * Assessment & Plan Note - Edmundo Guajardo MD - 10/28/2023 12:59 PM CDT Associated Problem(s): Chronic pansinusitis I suggested that we try treating his sinusitis again with a course of Cipro for 2 weeks. I also would like to have him he used the tobramycin rinse which she has not done yet as I think it might makea difference. He is okay with doing that. The plan is for a follow-up in about 1 month. Could consider a sinus CT scan if problems continue. documented in this encounter Plan of Treatment Not on file documented as of this encounter Visit Diagnoses Diagnosis Chronic cough- Primary Cough Chronic pansinusitis Other chronic sinusitis documented in this encounter Discontinued Medications Medication Sig Discontinue Reason Start Date End Da te tobramycin (NEBCIN) 40 mg/mL solutionIndications:Chr onic pansinusitis 160mg Tobramycin in 1 liter of sodium chloride SIG: Using a bulb syringe, rinse both nostrils BID x 14 days Reorder 09/22/2023 10/28/2023 sodium chloride 0.9% 0.9 % irrigationIndications:C hronic pansinusitis Mix with 160mg Tobramycin with 1 liter of sodium chloride SIG: Using a bulb syringe, rinse both nostrils BID x 14 days Reorder 09/22/2023 10/28/2023 documented as of this encounter Care Teams Admissions Consultant Relationship Specialty Start Date End Date Anil Gupta MD [address] [place] [address] PCP - General Internal Medicine 04/19/21 Anil Gupta MD [address] [place] [address] Internal Medicine 04/19/21 Adrien Young MD [address] [place] [address] Consulting Physician Infectious Diseases 11/06/21 Milad Garcia MD [address] [place] [address] Consulting Physician Orthopedic Surgery 03/02/23 documented as of this encounter
--- OUTSIDE RECORDS SUMMARY | 2024-03-19 07:27 | XMS_ITS | Encounter Summary ---
Author Organization [facility] Address [address] [place] [address] Care Team Providers Care Labor Relations Director Name Role Phone Anil Gupta MD Primary Care Provider [phone] Anil Gupta MD Unavailable [phone] Adrien Young MD Unavailable [phone] Milad Garcia MD Unavailable [phone] Reason for Visit * Reason Comments polyneuropathy Encounter Details Date Type Department Care Team (Late st Contact Info) Description 11/06/2023 10:30 AM CDT Office Visit [facility] Neurology [address] [place] [id number] Campbell Araya MD [address] [place] [phone] Polyneuropathy (Primary Dx) Social History Tobacco Use Types Packs/Day Years [...] week 10/29/2021 How often do you attend [facility] or christianity services? 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 Gender Identity Male 05/23/2021 12:08 PM PROBATION AND PAROLE OFFICER Sexual Orientation Straight 05/23/2021 12 :08 PM PROBATION AND PAROLE OFFICER documented as of this encounter Last Filed Vital Signs Vital Sign Reading Time Taken Comments Blood Pressure 100/58 11/06/2023 10:17 AM CDT Pulse 79 11/06/2023 10:17 AM CDT Temperature - - Respiratory Rate - - Oxygen Saturation 97% 11/06/2023 10:17 AM CDT Inhaled Oxygen Concentration - - Weight 86.2 kg (190 lb) 11/06/2023 10:17 AM CDT Height 182.9 cm (6') 11/06/2023 10:17 AM CDT Body Mass Index 25.77 11/06/2023 10:17 AM CDT documented in this encounter Ordered Prescriptions Prescription Sig Dispense Quantity Refills Last Filled Start Date End Date nortriptyline (PAMELOR) 25 mg capsule Take 1 capsule (25 mg total) by mouth nightly 90 capsule 3 11/06/2023 5 documented in this encounter Progress Notes * Campbell Araya MD - 11/06/2023 10:30 AM CDT Images from the original note were not included. Patient ID: Douglas Horn is a 73 y.o. male Chief Complaint: neuropathy History of Present Illness: This is a 73-year-old gentleman who presents as a follow-up for peripheral neuropathy. I had started him on Cymbalta but he felt like this was affecting his sex drive and I recommended tapering off this and trying nortriptyline 25 mg at bedtime instead. He feels like the nortriptyline has been veryhelpful and he was actually managed to taper himself off of Lyrica. He currently feels like his symptoms are well controlled. Of note he was planning to undergo evaluation for a spinal cord stimulator which he hopes will help his symptoms as well. Review of Systems As above. All other systems were reviewed and found to be normal or non-contributory. Current Outpatient Medications Medication Sig Dispense Refill benralizumab (Fasenra) 30 mg/mL syringe DULoxetine DR (CYMBALTA) 30 mg capsule 1 capsule (30 mg total) Edex 10 mcg injection INJECT 10 MCG INTRA-CAVERNOSALLY 3 TIMES A WEEK NEEDED FOR ERECTILE DYSFUNCTION CAVERJECT finasteride (PROSCAR) 5 mg tablet Take 1 tablet (5 mg total) by mouth daily fluticasone propionate (FLONASE) 50 mcg/actuation nasal spray Administer 4 sprays into each nostrildaily ipratropium (ATROVENT) 42 mcg (0.06 %) nasal spray Administer 2 sprays into each nostril 2 (two) times a day magnesium gluconate 200 mg tablet 1 tablet (200 mg total) nortriptyline (PAMELOR) 25 mg capsule Take 1 capsule (25 mg total) by mouth nightly 30 capsule 11 ondansetron ODT (ZOFRAN-ODT) 8 mg disintegrating tablet TAKE 1 TABLET BY MOUTH FOUR TIMES DAILY NEEDED FOR NAUSEA AND VOMITING pregabalin (LYRICA) 150 mg capsule Take 1 capsule (150 mg total) by mouth 3 (three) times a day 270capsule 1 rOPINIRole (REQUIP) 2 mg tablet Take 1 tablet (2 mg total) by mouth nightly sodium chloride 0.9% 0.9 % irrigation Mix with 160mg Tobramycin with 1 liter of sodium chloride SIG: Using a bulb syringe, rinse both nostrils BID x 14 days 1000 mL 0 tiZANidine (ZANAFLEX) 2 mg tablet 1 tablet (2 mg total) tobramycin (NEBCIN) 40 mg/mL solution 160mg Tobramycin in 1 liter of sodium chloride SIG: Using a bulb syringe, rinse both nostrils BID x 14 days 4 mL 0 Trelegy Ellipta 200-62.5-25 mcg inhaler INHALE 1 PUFF ONCE DAILY (FAST BREATH INHALE QUICKLY AND DEEPLY) ciprofloxacin (CIPRO) 500 mg tablet Take 1 tablet (500 mg total) by mouth 2 (two) times a day for 14 days (Patient not taking: Reported on 11/06/2023) [address] (NexIUM) 20 mg capsule 1 capsule (20 mg total) (Patient not taking: Reported on 11/06/2023) famotidine (PEPCID) 20 mg tablet Take 1 tablet (20 mg total) by mouth 2 (two) times a day pantoprazole DR (PROTONIX) 40 mg EC tablet Take 1 tablet (40 mg total) by mouth 2 (two) times a day(Patient not taking: Reported on 10/28/2023) 60 tablet 1 predniSONE (DELTASONE) 10 mg tablet PLEASE SEE ATTACHED FOR DETAILED DIRECTIONS (Patient not taking: Reported on 11/06/2023) No current facility-administered medications for this visit. Physical Exam Vitals BP 100/58 (BP Location: Right arm, Patient Position: Sitting) Pulse 79 Ht 182.9 cm (6') Wt 86.2 kg (190 lb) SpO2 97% BMI 25.77 kg/m?? Neurological exam: Constitutional: Appears well and in no acute distress Mental Status: Alert and oriented times three, Speech is fluent. Normal comprehension. Cranial Nerves: pupils are equal, round, and reactive to light, Extraocular movements are intact, visual field full, face symmetric, facial sensation intact, palate rise symmetric, shoulder shrug appropriate in strength, tongue midline, no atrophy or fasciculations Motor: Normal bulk and tone noted. Strength: 5/5 throughout in both proximal and distal muscles Sensory: Decreased pinprick sensation up to the lower ankle. Decreased vibration at the toes, intact at the ankles.: 2/4 throughout Gait: Intact Coordination: Good FNF, No obvious invol mvmts Romberg's negative Assessments and Plan 1. Polyneuropathy Stable. Continue nortriptyline 25 mg at bedtime. Return to clinic in 6 months My total encounter time on 11/06/2023 was 22 minutes which was spent in the activities documented in the note. This includes time spent prior to the visit and after the visit in direct care of the patient. This time does not include time spent in any separately reportable services. Campbell Araya MD Neurology cc:Anil Gupta MD documented in this encounter Plan of Treatment Not on file documented as of this encounter Visit Diagnoses Diagnosis Polyneuropathy- Primary Unspecified hereditary and idiopathic peripheral neuropathy documented in this encounter Discontinued Medications Medication Sig Discontinue Reason Start Date End Da te nortriptyline (PAMELOR) 25 mg capsule Take 1 capsule (25 mg total) by mouth nightly Reorder 08/20/2023 11/06/2023 documented as of this encounter Historical Medications * This list may reflect changes made after this encounter. tiZANidine (ZANAFLEX) 2 mg tablet 1 tablet (2 mg total) 04/10/2023 ondansetron ODT (ZOFRAN-ODT) 8 mg disintegrating tablet Trelegy Ellipta 200-62.5-25 mcg inhaler Inhale 1 puff daily 10/06/[address] (NexIUM) 20 mg capsule Take 1 capsule (20 mg total) by mouth daily before breakfast 04/04/[address] (CYMBALTA) 30 mg capsule 1 capsule (30 mg total) 04/10/2023 Edex 10 mcg injection 10/13/2023 predniSONE (DELTASONE) 10 mg tablet 10/06/2023 11/25/202 4 added in this encounter Care Teams Labor Relations Director Relationship Specialty Start Date End Date Anil Gupta MD [address] [place] [address] PCP - General Internal Medicine 04/19/21 Anil Gupta MD [address] [place] [address] Internal Medicine 04/19/21 Adrien Young MD [address] [facility] [address], [place] [id number] Consulting Physician Infectious Diseases 11/06/21 Milad Garcia MD [address] [facility] [address] [place] [address] Consulting Physician Orthopedic Surgery 03/02/23 documented as of this encounter
--- OUTSIDE RECORDS SUMMARY | 2024-03-19 07:27 | XMS_ITS | Encounter Summary ---
Author Organization [facility] Address [address] [place] [address] Care Team Providers Care Hollow Tile Partition Erector Name Role Phone Anil Gupta MD Primary Care Provider [phone] Anil Gupta MD Unavailable [phone] Adrien Young MD Unavailable [phone] Milad Garcia MD Unavailable [phone] Doni Marino MD Unavailable [phone] Reason for Referral * Cardiology (Routine) - Authorized Specialty Diagnoses / Procedures Referred By Contac t Referred To Contact Diagnoses Pre-op testing Procedures ECG 12 lead Clif Leung MD [address] [place] [address] Phone: tel: fax: [address] [phone] Referral ID Status Reason Start Date Expiration Date V isits Requested Visits Authorized [id number] Authorized 02/09/2024 03/10/2025 1 1 RAL FARM MANAGER Encounter Details Date Type Department Care Team (Latest Contact Info) Description 02/09/2024 10:00 AM GENERAL FARM MANAGER Pre-Admission Testing [facility] PreAdmission Testing [address] [place] [id number] Pre-op testing (Primary Dx) Social History Tobacco Use Types [...] How often do you attend chur or druze services? 1 to 4 times per year 10/29/2021 Do you belong to any clubs o r organizations such as taoist groups, unions, fraternal or athletic groups, or school groups? No 10/29/2021 How often do you attend meet ings of the clubs or organizations you belong to? Never 10/29/2021 Are you , , di vorced, , never , or living with a partner? 10/29/2021 AUDIT-C Answer Date Recorded Q1: How often do you have a drink containing alcohol? 4 or more times a week 02/09/2024 Q2: How many drinks containi ng alcohol do you have on a typical day when you are drinking? 3 or 4 Q3: How often do you have si x or more drinks on one occasion? Less than monthly 02/09/2024 Overall Financial Resource Strain (CARDIA) Answe r [...] making you feel afraid or unsafe? Denies 02/09/2024 Sex and Gender Information Value Date Recorded Sex Assigned at Not on file Legal Sex Male 12:56 PM GENERAL FARM MANAGER Gender Identity Male 05/23/2021 12:08 PM GENERAL FARM MANAGER Sexual Orientation Straight 05/23/2021 12 :08 PM GENERAL FARM MANAGER documented as of this encounter Last Filed Vital Signs Vital Sign Reading Time Taken Comments Blood Pressure 128/79 02/09/2024 10:01 AM GENERAL FARM MANAGER rt upper arm Pulse 83 02/09/2024 10:01 AM GENERAL FARM MANAGER Temperature 36.2 ??C (97.2 ??F) 02/09/2024 1 0:01 AM GENERAL FARM MANAGER Respiratory Rate 14 02/09/2024 10:0 1 AM GENERAL FARM MANAGER Oxygen Saturation 95% 02/09/2024 10: 01 AM GENERAL FARM MANAGER Inhaled Oxygen Concentration - - Weight 83.6 kg (184 lb 3.2 oz) 02/09/20 10:01 AM GENERAL FARM MANAGER Height 182.9 cm (6') 02/09/2024 10:01 AM GENERAL FARM MANAGER Body Mass Index 24.98 02/09/2024 10:01 AM GENERAL FARM MANAGER documented in this encounter Plan of Treatment Not on file documented as of this encounter Procedures Procedure Name Priority Date/Time Associated Diagnosis Comments ECG 12-LEAD Routine 02/09/2024 9:57 AM GENERAL FARM MANAGER Pre-op testing documented in this encounter Results * ECG 12 lead (02/09/2024 9:57 AM GENERAL FARM MANAGER) Ventricular Rate EKG/Min 74 BPM [facility] Atrial Rate 74 BPM [facility] WY-Interval (MSEC) 186 ms [facility] QRS-Interval (MSEC) 142 ms [facility] QT-Interval (MSEC) 380 ms [facility] QTc 421 ms [facility] P Napoleon 19 degrees [facility] R Napoleon -34 degrees [facility] T Napoleon 6 degrees [facility] Diagnosis Normal sinus rhythm Left axis deviation Right bundle branch block No previous ECGs available Confirmed by SULTAN MAJOR M.D. ([id number]) on 02/09/2024 2:43:31 PM [facility] 02/09/2024 9:57 AM GENERAL FARM MANAGER 02/09/2024 2:43 PM GENERAL FARM MANAGER us Clif Leung MD ECG ORDERABLES Final Result [facility] documented in this encounter Visit Diagnoses Diagnosis Pre-op testing- Primary Unspecified pre-operative examination documented in this encounter Care Teams Hollow Tile Partition Erector Relationship Specialty Start Date End Date Anil Gupta MD [address] [place] [address] PCP - General Internal Medicine 04/19/21 Anil Gupta MD [address] [place] [address] Internal Medicine 04/19/21 Adrien Young MD [address] [place] [address] Consulting Physician Infectious Diseases 11/06/21 Milad Garcia MD [address] [place] [address] Consulting Physician Orthopedic Surgery 03/02/23 Doni Marino MD [address] [place] [address] Referring Physician Pulmonary Disease 02/09/24 documented as of this encounter
--- OUTSIDE RECORDS SUMMARY | 2024-03-19 07:27 | XMS_ITS | Encounter Summary ---
Author Organization [facility] Address [address] [place] [address] Phone Care Team Providers Care Risk Assessment Analyst Name Role Phone Anil Gupta MD Primary Care Provider [phone] Anil Gupta MD Unavailable [phone] Adrien Young MD Unavailable [phone] Milad Garcia MD Unavailable Reason for Visit * Reason Comments Sinusitis Sinus inflammation/i nfection x 12 months. History of sinus surgery and septoplasty Encounter Details Date Type Department Care Team (Late st Contact Info) Description 09/16/2023 9:00 AM CDT Office Visit [facility] Otolaryngology [address] [place] [phone] Edmundo Guajardo MD [address] [place] [id number] Chronic cough (Primary Dx); Chronic pansinusitis Social [...] often do you attend chur ch or sabianist services? 1 to 4 times per year 10/29/2021 Do you belong to any clubs o r organizations such as sikhism groups, unions, fraternal or athletic groups, or [...] on file Legal Sex Male 12:56 PM EMERGENCY MANAGEMENT CONSULTANT Gender Identity Male 05/23/2021 12:08 PM EMERGENCY MANAGEMENT CONSULTANT Sexual Orientation Straight 05/23/2021 12 :08 PM EMERGENCY MANAGEMENT CONSULTANT documented as of this encounter Last Filed Vital Signs Vital Sign Reading Time Taken Comments Blood Pressure - - Pulse - - Temperature - - Respiratory Rate 18 09/16/2023 9:03 AM CDT Oxygen Saturation - - Inhaled Oxygen Concentration - - Weight 86.2 kg (190 lb) 09/16/2023 9:03 AM CDT Height 182.9 cm (6') 09/16/2023 9:03 AM CDT Body Mass Index 25.77 09/16/2023 9:03 AM CDT documented in this encounter Ordered Prescriptions Prescription Sig Dispense Quantity Refills Last Filled Start Date End Date pantoprazole DR (PROTONIX) 40 mg EC tablet Take 1 tablet (40 mg total) by mouth 2 (two) times a day 60 tablet 1 09/16/2023 ciprofloxacin (Cipro) 500 mg tablet Take 1 tablet (500 mg total) by mouth 2 (two) times a day for 14 days 28 tablet 09/16/2023 09/30/2023 documented in this encounter Progress Notes * Edmundo Guajardo MD - 09/16/2023 9:00 AM CDT Douglas Horn is a 73 y.o. male was seen in the office today. Primary care provider is Anil Gupta MD . Chief Complaint: Chief Complaint Patient presents with Sinusitis Sinus inflammation/infection x 12 months. History of sinus surgery and septoplasty HPI: He comes to clinic today for evaluation of a chronic productive cough. He states that he has had a long history of sinus problems. He would sinus surgery in [address] Lopez. Couple of yearslater he states that he had a septoplasty that was done by Dr. Russ. He states that he still has a lot of postnasal drainage and productive cough. He saw Dr. Lopez again about a year ago and was treated. Dr. Lopez is moving out of the area. He is here to see me for this. He has some problemswith headaches and facial pressure. He does have a lot of yellow nasal discharge. He has problems with this chronic cough. He is afraid that it is getting into his lungs. He states that in the past he has been treated for a Pseudomonas lung infection. 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 The hardware became infected and required 2 surgeries to correct. He does have history of reflux disease. He takes Nexium every morning. If he does not he will pretty quickly get significant reflux symptoms. He also had a CT [facility] which showed significant bilateral pansinusitis.. I have reviewed past medical, surgical, family [...] for hallucinations and self-injury. Vital Signs: Resp 18 Ht 182.9 cm (6') Wt 86.2 kg (190 lb) BMI 25.77 kg/m?? PHYSICAL EXAMINATION: GENERAL: Normal [...] are seen on either side. There were thick purulent secretions bilaterally. ORAL CAVITY/ OROPHARYNX: Skin [...] is clear saliva flow from Stensen's and Birmingham's ducts bilaterally. LYMPHATIC: No cervical lymphadenopathy. MUSCULOSKELATAL: [...] Middle turbinates are unremarkable. Middle meatus shows thick exudate bilaterally with open ethmoid cavities and opened the maxillary sinuses. The middle and superior meatus are both unremarkable bilaterally. Sphenoid ethmoid recesses are clear. ASSESSMENT & PLAN: Chronic pansinusitis He certainly has problems with chronic bilateral [...] at that time if he has no better.He did have a sinus CT scan from 11/03/2022 which I reviewed and it does show pretty significant sinusitis. I think that needs to be repeated. Cough I think his cough is probably due to sinus drainage and we talked about that. He does have a history of reflux disease and will become symptomatic pretty easily if he stops taking his ayfe-cor-trfqela Nexium which he takes once a day. [...] included instructions on dietary management. We also discussedthe potential long-term side effects of proton pump inhibitors including liver and kidney disease and increased risk of dementia. I do not intend to continue treatment with this medication indefinitely unless there was no other way to get the symptoms under control and the patient wishes to continue taking them. Edmundo Guajardo MD documented in this encounter Miscellaneous Notes * Assessment & Plan Note - Edmundo Guajardo MD - 09/16/2023 12:55 PM CDT Associated Problem(s): Cough I think his cough is probably due to sinus drainage and we talked about that. He does have a history of reflux disease and will become symptomatic pretty easily if he stops taking his acdt-bby-medgezi Nexium which he takes once a day. [...] included instructions on dietary management. We also discussedthe potential long-term side effects of proton pump inhibitors including liver and kidney disease and increased risk of dementia. I do not intend to continue treatment with this medication indefinitely unless there was no other way to get the symptoms under control and the patient wishes to continue taking them. * Assessment & Plan Note - Edmundo Guajardo MD - 09/16/2023 12:53 PM CDT Associated Problem(s): Chronic pansinusitis He certainly has problems with chronic bilateral [...] at that time if he has no better.He did have a sinus CT scan from 11/03/2022 which I reviewed and it does show pretty significant sinusitis. I think that needs to be repeated. documented in this encounter Plan of Treatment Not on file documented as of this encounter Results * (ABNORMAL) Aerobic culture and gram stain Drainage Sinus, maxillary, left (09/16/2023 9:38 AM CDT) Direct Specimen Exam Stain: Few polymorphonuclear leukocytes seen. Moderate Gram Positive Cocci Moderate Gram Negative Bacilli Comment:Testing performed by : [facility], [address] [place]., [address] Report Final Report: Moderate Staphylococcus aureus Methicillin susceptible (MSSA) by penicillin binding protein 2a (PBP2a) testing. This isolate is presumed to be resistant to clindamycin based on detection of inducible clindamycin resistance. Clindamycin may still be effective in some patients. This Staphylococcus aureus is a hkwcx-fiva-knrwbdbtw producing strain. ??This isolate is resistant to oxacillin but not cephalosporin agents. Few Pseudomonas aeruginosa (mucoid morphotype) Few Pseudomonas aeruginosa (.) MILLI Comment:Testing performed by : [facility], [address] [place]., [address] Organism STAPHYLOCOCCUS AUREUS [facility]I Organism PSEUDOMONAS AERUGINOSA (MUCOID MORPHOTYPE) MILLI Organism PSEUDOMONAS AERUGINOSA MILLI Drainage (Sinus, maxillary, left) 09/16/2023 9:38 AM CDT 09/17/2023 12:14 AM CDT Narrative MILLI - 09/21/2023 11:03 AM CDT AEROBIC \T\ ANAEROBIC CULTURE \T\ SENSITIVITY Testing performed by [facility] Microbiology Laboratory ([phone]) Specimens submitted from normally sterile body sites [...] ETATION Susceptible Pseudomonas aeruginosa Tobramycin INTERPRETATION Susceptible us Edmundo Guajardo MD LAB MICROBIOLOGY - GENERAL ORDERABLES Final Result MILLI [address] [facility] Department [place] [address] documented in this encounter Visit Diagnoses Diagnosis Chronic cough- Primary Cough Chronic pansinusitis Other chronic sinusitis Chronic pansinusitis Other chronic sinusitis documented in this encounter Discontinued Medications Medication Sig Discontinue Reason Start Date End Da te albuterol HFA (PROVENTIL HFA,VENTOLIN HFA,PROAIR HFA) 90 mcg/actuation inhaler Therapy completed 01/28/2021 09/16/19 24 amoxicillin (AMOXIL) 875 mg tablet TAKE ONE TABLET BY MOUTH EVERY 12 HOURS FOR 7 DAYS Therapy completed 02/16/2023 09/16/2023 benralizumab (Fasenra Pen) 30 mg/mL auto-injector Duplicate order 02/08/2021 09/16/2023 benzonatate (TESSALON) 200 mg capsule TAKE 1 CAPSULE BY MOUTH 3 TIMES A DAY, INS WON'T COVER Therapy completed 08/03/2023 09/16/2023 budesonide-formoteroL (Symbicort) 160-4.5 mcg/actuation inhaler Therapy completed 12/31/2020 09/16/[address] (CYMBALTA) 30 mg capsule Take 1 capsule (30 mg total) by mouth 2 (two) times a day Therapy completed 05/04/2023 09/16/2023 ibuprofen (ADVIL,MOTRIN) 600 mg tablet START 06/08 AFTER PROCEDURE TAKE 1TAB BY MOUTH EVERY 6HOURS WITH FOOD NEEDED FOR PAIN MAX: 3/DAY Therapy completed 06/02/2023 09/16/2023 lansoprazole (Prevacid) 30 mg capsule 1 capsule (30 mg total) Therapy completed 06/22/2015 09/16/2023 levoFLOXacin (LEVAQUIN) 500 mg tablet TAKE 1 TABLET BY MOUTH EVERY DAY FOR 10 DAYS Therapy completed 09/16/2023 methylPREDNISolone (MEDROL DOSEPACK) 4 mg Dosepack TAKE 6 TABS ON DAY 1 DIRECTED ON PACK AND DECREASE BY 1 TAB EACH DAY FOR 6 DAYS TOTAL, START 06/09 Therapy completed 06/02/2023 09/16/2023 mupirocin (BACTROBAN) 2 % ointment PLEASE SEE ATTACHED FOR DETAILED DIRECTIONS Therapy completed 01/30/2023 09/16/2023 nebulizer accessories misc See Instructions, 1 each, 1 each, Route to Pharmacy Electronically, [facility]/pharmacy #[id number], [id number] [id number], Instructions Replace Required Details, Supply Therapy completed 12/12/2019 09/16/2023 nystatin 100,000 unit/mL suspension Therapy completed 02/19/2021 09/16/2023 nystatin cream Apply topically 2 (two) times a day Therapy completed 04/28/2023 09/16/2023 ondansetron ODT (ZOFRAN-ODT) 8 mg disintegrating tablet TAKE 1 TABLET BY MOUTH FOUR TIMES DAILY NEEDED FOR NAUSEA AND VOMITING Therapy completed 01/20/2022 09/16/2023 phenazopyridine (PYRIDIUM) 200 mg tablet START 06/08 AFTER PROCEDURE. 1TAB NEEDED EVERY 6HOURS UP TO 3TIMES A DAY FOR URINARY PAIN/BURNING Therapy completed 06/02/2023 09/16/2023 sulfamethoxazole-trimet hoprim (BACTRIM DS) 800-160 mg per tablet Take 1 tablet by mouth 2 (two) times a day Therapy completed 03/18/2023 09/16/2023 tiZANidine (ZANAFLEX) 2 mg tabletIndications:Statu s post lumbar spinal fusion TAKE 1-2 TABLETS (2-4 MG TOTAL) BY MOUTH EVERY 8 HOURS NEEDED FOR MUSCLE SPASMS Therapy completed 11/17/2022 09/16/2023 traZODone (DESYREL) 50 mg tablet TAKE 1-3 TABLETS DAILY NEEDED Therapy completed 06/10/2023 09/16/2023 valACYclovir (VALTREX) 500 mg tablet 1 tablet (500 mg total) Therapy completed 06/22/2015 09/16/2023 documented as of this encounter Historical Medications * This list may reflect changes made after this encounter. magnesium gluconate 200 mg tabletIndications :hypomagnesemia 1 tablet (200 mg total) added in this encounter Care Teams Risk Assessment Analyst Relationship Specialty Start Date End Date Anli Gupta MD [address] [facility] [address] [facility] [address] [place] [address] PCP - General Internal Medicine 04/19/21 Anil Gupta MD [address] [place] [address] Internal Medicine 04/19/21 Adrien Young MD [address] [facility] [address] [place] [address] Consulting Physician Infectious Diseases 11/06/21 Milad Garcia MD [address] [address] Consulting Physician Orthopedic Surgery 03/02/23 documented as of this encounter
--- OUTSIDE RECORDS SUMMARY | 2024-03-19 07:27 | XMS_ITS | Encounter Summary ---
Author Organization [facility] Healthcare Address [address] [place] [address] Care Team Providers Care Blending Coordinator Name Role Phone Anil Gupta MD Primary Care Provider [phone] Anil Gupta MD Unavailable [phone] Adrien Young MD Unavailable [phone] Milad Garcia MD Unavailable [phone] Reason for Visit * Reason Onset Date Comments PCP questions for 01/01/2024 Encounter Details Date Type Department Care Team (Late st Contact Info) Description 01/01/2024 Telephone [facility] Neurology [address] [facility] [address] [place] [phone] Preston Ventura Si, MD [address] [place] [phone] PCP questions for Social History Tobacco Use Types Packs/Day Years [...] week 10/29/2021 How often do you attend [facility] or moravian services? 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 Patient PCP would like to speak with neurologist as patient recently has worsening unsteady walking, change in mentation. Recent lab is found to have hyponatremia and was recently treated for lung infection with ciprofloxacin. On top of that, he self increase his ropinirole 2 mg nightly to bid. Dr Araya prescribe nortriptyline 25 mg q hs for his neuropathic pain. Most likely his recent change in mentation with imbalance is likely attributed from hyponatremia, with superimposed lung infection and drowsiness from sudden increased in ropinirole dose. -pt will follow up java software developer for decline in Na (127) with known chronic hyponatremia, continuingantibiotics (ciprofloxacin) for infection as guidance per pulmonary. -he will go back to ropinirole 2 mg q hs, It is unclear whether worsening day time symptoms of RLS is due to augmentation side effect (which could be seen with over 2 mg/day of single night time dosing). But it wasn't Dr Araya who was managing his ropinirole dosing in the past. -Pt will reach out to Dr Araya on Thursday to seek advise on his RLS management. documented in this encounter Plan of Treatment Not on file documented as of this encounter Visit Diagnoses Not on filedocumented in this encounter Care Teams Blending Coordinator Relationship Specialty Start Date End Date Anil Gupta MD [address] [place] [address] PCP - General Internal Medicine 04/19/21 Anil Gupta MD [address] [place] [address] Internal Medicine 04/19/21 Adrien Young MD [address] [place] [address] Consulting Physician Infectious Diseases 11/06/21 Milad Garcia MD [address] [place] [address] Consulting Physician Orthopedic Surgery 03/02/23 documented as of this encounter
--- OUTSIDE RECORDS SUMMARY | 2024-03-19 07:27 | XMS_ITS | Encounter Summary ---
Author Organization [facility] Address [address] [place] [address] Phone Care Team Providers Care Paper Roll Machine Operator Name Role Phone Anil Gupta MD Primary Care Provider [phone] Anil Gupta MD Unavailable [phone] Adrien Young MD Unavailable [phone] Milad Garcia MD Unavailable [phone] Reason for Visit * Reason Onset Date Comments Culture results and recommendations 09/22/2023 Encounter Details Date Type Department Care Team (Late st Contact Info) Description 09/22/2023 Telephone [facility] Otolaryngology [address] [place] [phone] Stefanie Hernandez LPN Culture results and recommendations Social History Tobacco Use Types Packs/Day Years [...] often do you attend chur ch or judaism services? 1 to 4 times per year 10/29/2021 Do you belong to any clubs o r organizations such as buddhism groups, unions, fraternal or athletic groups, or [...] on file Legal Sex Male 12:56 PM FRUIT PRESERVER Gender Identity Male 05/23/2021 12:08 PM FRUIT PRESERVER Sexual Orientation Straight 05/23/2021 12 :08 PM FRUIT PRESERVER documented as of this encounter Ordered Prescriptions Prescription Sig Dispense Quantity Refills Last Filled Start Date End Date sulfamethoxazole- trimethoprim (BACTRIM DS) 800-160 mg per tabletIndications :Chronic pansinusitis Take 1 tablet (160 mg of trimethoprim total) by mouth 2 (two) times a day for 14 days 28 tablet 09/22/2023 4 sodium chloride 0.9% 0.9 % irrigationIndicat ions:Chronic pansinusitis Mix with 160mg Tobramycin with 1 liter of sodium chloride SIG: Using a bulb syringe, rinse both nostrils BID x 14 days 1000 mL 09/22/2023 4 tobramycin (NEBCIN) 40 mg/mL solutionIndicatio ns:Chronic pansinusitis 160mg Tobramycin in 1 liter of sodium chloride SIG: Using a bulb syringe, rinse both nostrils BID x 14 days 4 mL 09/22/2023 4 documented in this encounter Miscellaneous Notes * Telephone Encounter - Stefanie Hernandez LPN - 09/22/2023 4:01 PM CDT Spoke to Douglas and he was made aware of his results. He asked that the nasal rinse be sent to [facility] because [facility] does not do compounding. The Bactrim DS was sent to his local [facility]. * Telephone Encounter - Stefanie Hernandez LPN - 09/22/2023 3:37 PM CDT ----- Message from Edmundo Guajardo MD sent at 09/22/2023 8:24 AM CDT ----- Please tell him that his culture results have come in. I would like to put him on a tobramycin rinse for 2 weeks for his Pseudomonas. I also would like to prescribe Bactrim DS for 2 weeks twice a dayfor his Staph. documented in this encounter Plan of Treatment Not on file documented as of this encounter Visit Diagnoses Diagnosis Chronic pansinusitis- Primary Other chronic sinusitis documented in this encounter Care Teams Paper Roll Machine Operator Relationship Specialty Start Date End Date Anil Gupta MD [address] [place] [address] PCP - General Internal Medicine 04/19/21 Anil Gupta MD [address] [place] [address] Internal Medicine 04/19/21 Adrien Young MD [address] [facility] [facility] [address] [place] [address] Consulting Physician Infectious Diseases 11/06/21 Milad Garcia MD [address] [facility] [facility] [address] [place] [address] Consulting Physician Orthopedic Surgery 03/02/23 documented as of this encounter
--- OUTSIDE RECORDS SUMMARY | 2024-03-19 07:27 | XMS_ITS | Encounter Summary ---
Author Organization [facility] Address [address] [place] [address] Phone Care Team Providers Care Glue Mixer Name Role Phone Anil Gupta MD Primary Care Provider [phone] Anil Gupta MD Unavailable [phone] Adrien Young MD Unavailable [phone] Milad Garcia MD Unavailable [phone] Reason for Visit * Reason Onset Date Comments Thrush 02/08/2024 Encounter Details Date Type Department Care Team (Late st Contact Info) Description 02/08/2024 Telephone [facility] Otolaryngology [address] [place] [phone] Stefanie Hernandez LPN Thrush Social History Tobacco Use Types Packs/Day Years [...] How often do you attend chur or rastafari services? 1 to 4 times per year 10/29/2021 Do you belong to any clubs o r organizations such as hindu groups, unions, fraternal or athletic groups, or [...] on file Legal Sex Male 12:56 PM EXTENSION PROFESSOR Gender Identity Male 05/23/2021 12:08 PM EXTENSION PROFESSOR Sexual Orientation Straight 05/23/2021 12 :08 PM EXTENSION PROFESSOR documented as of this encounter Ordered Prescriptions Prescription Sig Dispense Quantity Refills Last Filled Start Date End Date nystatin 100,000 unit/mL suspensionIndicati ons:Thrush Swish and swallow 5cc QID x 10 days. 200 mL 02/08/2024 4 documented in this encounter Miscellaneous Notes * Telephone Encounter - Stefanie Hernandez LPN - 02/08/2024 4:01 PM CST Patient was notified that the Nystatin suspension was sent out and he is to use it in the corners of his mouth as well. NSION PROFESSOR * Telephone Encounter - Stefanie Hernandez LPN - 02/08/2024 4:00 PM CST He can have the nystatin suspension and use it 4 times a day for 10 days. If he applies it to the corner of the mouth that would be essentially the same as using the cream. Thanks. NSION PROFESSOR * Telephone Encounter - Stefanie Hernandez LPN - 02/08/2024 11:32 AM CST Douglas calls because he has oral thrush. It is causing a sore throat. He says that it is from his inhaler. He is requesting Nystatin suspension and Nystatin cream for the corners of his mouth. Are you willing to prescribe those meds or are your wanting him to get them through his primary care? He says you gave him Clotrimazole troches in the past and they don't work for him. Uses [facility] in [place]. NSION PROFESSOR documented in this encounter Plan of Treatment Not on file documented as of this encounter Visit Diagnoses Diagnosis Thrush- Primary Candidiasis of mouth documented in this encounter Care Teams Glue Mixer Relationship Specialty Start Date End Date Anil Gupta MD [address] [place] [address] PCP - General Internal Medicine 04/19/21 Anil Gupta MD [address] [place] [address] Internal Medicine 04/19/21 Adrien Young MD [address] [place] [address] Consulting Physician Infectious Diseases 11/06/21 Milad Garcia MD [address] [facility] [address] [place] [address] Consulting Physician Orthopedic Surgery 03/02/23 documented as of this encounter
--- OUTSIDE RECORDS SUMMARY | 2024-03-19 07:27 | XMS_ITS | Encounter Summary ---
Author Organization [facility] Healthcare Address [address] [place] [address] Care Team Providers Care Surgical Elastic Knitter Name Role Phone Anil Taylor MD Primary Care Provider [phone] Anil Taylor MD Unavailable [phone] Adrien Young MD Unavailable [phone] Milad Garcia MD Unavailable [phone] Reason for Visit * Cardiology (Routine) - Closed Specialty Diagnoses / Procedures Referred By Contac t Referred To Contact Diagnoses RBBB Cardiac murmur, unspecified Procedures Transthoracic Echo (TTE) Complete W Doppler/CF Anil Taylor MD [address] [place] [address] Phone: tel: fax: [facility] Referral ID Status Reason Start Date Expiration Date Visits Re quested Visits Authorized [id number] Closed 10/30/2023 11/28/2024 1 1 Encounter Details Date Type Department Care Team (Latest Contact Info) Description 11/05/2023 3:00 PM CDT Ancillary Procedure [facility] Cardiology [address] [facility] [address] [place] [address] RBBB; Cardiac murmur, unspecified Social History Tobacco Use Types Packs/Day Years [...] often do you attend chur ch or anabaptist services? 1 to 4 times per year 10/29/2021 Do you belong to any clubs o r organizations such as sikh groups, unions, fraternal or athletic groups, or [...] on file Legal Sex Male 12:56 PM NAIL SPECIALIST Gender Identity Male 05/23/2021 12:08 PM NAIL SPECIALIST Sexual Orientation Straight 05/23/2021 12 :08 PM NAIL SPECIALIST documented as of this encounter Last Filed Vital Signs Vital Sign Reading Time Taken Comments Blood Pressure 96/67 11/05/2023 4:20 PM CDT Pulse - - Temperature - - Respiratory Rate - - Oxygen Saturation - - Inhaled Oxygen Concentration - - Weight - - Height - - Body Mass Index - - documented in this encounter Plan of Treatment Not on file documented as of this encounter Procedures Procedure Name Priority Date/Time Associated Diagnosis Comments TRANSTHORACIC ECHO (TTE) COMPLETE W DOPPLER/CF WO CONTRAST Routine 11/05/2023 4:20 PM CDT RBBB Cardiac murmur, unspecified documented in this encounter Results * TRANSTHORACIC ECHO (TTE) COMPLETE W DOPPLER/CF WO CONTRAST (11/05/2023 4:20 PM CDT) Anatomical Region Laterality Modality Ultrasound 11/05/2023 3:10 PM CDT Narrative 11/06/2023 8:05 AM CDT [facility] Cardiology [address] [facility] [address], [place] [address] [address], [place] [address] P:[phone] P:[phone] Echocardiographic Report Patient Name: LIZETTE PÉREZ J : 1950 Study Date: 11/05/2023 3:10:14 PM Gender: M Tech: Location: [facility] Provider: ANIL TAYLOR ?Height(Cm): 183 BSA: 2.09 Weight(Kg): 86.2 Heart Rate: 98 BP: 96 / 67 Quality: Good Order Provider: ANIL TAYLOR PROCEDURES: Echocardiographic Report: Transthoracic echocardiogram with complete 2D, M-Mode, and color Doppler examination. With Strain Analysis. INDICATIONS: I45.10 Unspecified right bundle-branch block, and R01.1 Cardiac murmur, unspecified. Measurements: 2D/M Mode ?Doppler Measurement ?Value ?Normal Range ?Measurement ?Value ?Normal Range LVIDd 2D ? 4.14 ? [ 4.20 - 5.80 ] cm ?LALITA Vmax ? 2.77 ? [ 2.00 - 4.00 ] cm2 LVIDs 2D ? 3.13 ? [ 2.50 - 4.00 ] cm ?AV Mean PG ? 5 ?mmHg LVPWd 2D ? 1.24 ? [ 0.60 - 1.00 ] cm ?AV Peak Cooper ?1.51 ? [ 1.00 - 1.70 ] m/s IVSd 2D ?1.19 ? [ 0.60 - 1.00 ] cm ?AV Peak PG ? 9 ?mmHg LA Volume Index ?26 ? [ 16 - 34 ] cc/m2 ? AV VTI ? 25.87 ?cm LVOT Diam ?2.01 ?[ 1.70 - 2.10 ] cm LVOT Peak Cooper ?1.08 ?[ 0.70 - 1.10 ] m/s LVOT VTI ? 18.41 ? cm MV E Peak Cooper ?0.62 ?[ 0.60 - 1.30 ] m/s MV A Peak Cooper ?1.00 ?[ 1.00 - 1.20 ] m/s MV Decel Time ?138 ? [ 104 - 258 ] msec TR Peak Cooper ?2.38 ?[ 1.00 - 2.80 ] m/s TR Peak PG ? 23 ?mmHg Lateral E` ? 0.10 ?[ 0.10 - 0.15 ] m/s E` ? 0.10 ?m/s E/E` ? 6 Measurement ?Value ?Normal Range ?Measurement ?Value ?Normal Range 2D/M Mode ?Doppler - FINDINGS: Interpretation Site: Exam was interpreted at [facility] [place]. Left Ventricle: Normal left ventricular systolic function. No focal wall motion abnormalities. Normal left ventricular size. Normal left ventricular wall thickness. Impaired diastolic relaxation Grade I. Ejection fraction is measured at 62 %. Global Longitudinal Strain is -18 %. GLS is borderline. Right Ventricle: Normal right ventricular size. Normal right ventricular systolic function. Left Atrium: The left atrium is normal in size. Right Atrium: The right atrium is normal in size. Atrial Septum: Normal atrial septum. Mitral Valve: Normal appearance of the mitral valve. No mitral valve regurgitation is seen. There is no hemodynamically significant mitral stenosis by Doppler. Aortic Valve: No evidence of hemodynamically significant aortic stenosis by Doppler. Aortic cusps appear mildly sclerotic. Trileaflet aortic valve. Trace aortic valve regurgitation. Tricuspid Valve: Normal appearance of the tricuspid valve. Estimated peak RVSP is 28 mmHg. Mild tricuspid regurgitation. Pulmonic Valve: Normal appearance of the pulmonic valve. No evidence of pulmonic regurgitation. Pericardium: Normal pericardium with no significant pericardial effusion. Aorta: Sinus of Valsalva is normal. IVC: Normal size and normal respiratory collapse consistent with normal right atrial pressure (<5 mmHg). Pulmonary Artery: Normal pulmonary artery size. CONCLUSIONS: Normal left ventricular systolic function. No focal wall motion abnormalities. Normal left ventricular size. Normal left ventricular wall thickness. Impaired diastolic relaxation Grade I. Ejection fraction is measured at 62 %. Global Longitudinal Strain is -18 %. GLS is borderline. No evidence of hemodynamically significant aortic stenosis by Doppler. Aortic cusps appear mildly sclerotic. Trileaflet aortic valve. Trace aortic valve regurgitation. Estimated peak RVSP is 28 mmHg. Mild tricuspid regurgitation. Electronically Signed By: Dr. Britney Mallory [facility] 2023-11-06 08:04:33 CDT Procedure Note Britney Mallory MD - 11/06/2023 [facility] Cardiology [address] [facility] [address] [address] [address] [facility] [address], [place] [address] P:[phone] P:[phone] Echocardiographic Report Patient Name: LIZETTE PÉREZ J : 1950 Study Date: 11/05/2023 3:10:14 PM Gender: M Tech: Location: [place] Ref Provider: ANIL TAYLOR Height(Cm): 183 BSA: 2.09 Weight(Kg): 86.2 Heart Rate: 98 BP: 96 / 67 Quality: Good Order Provider: ANIL TAYLOR PROCEDURES: Echocardiographic Report: Transthoracic echocardiogram with complete 2D, M-Mode, and color Dopplerexamination. With Strain Analysis. INDICATIONS: I45.10 Unspecified right bundle-branch block, and R01.1 Cardiac murmur,unspecified. Measurements: 2D/M ModeDoppler Measurement Value Normal Range MeasurementValue Normal Range LVIDd 2D 4.14 [ 4.20 - 5.80 ] cm LALITA Vmax2.77 [ 2.00 - 4.00 ] cm2 LVIDs 2D 3.13 [ 2.50 - 4.00 ] cm AV Mean PG5 mmHg LVPWd 2D 1.24 [ 0.60 - 1.00 ] cm AV Peak Vel1.51 [ 1.00 - 1.70 ] m/s IVSd 2D 1.19 [ 0.60 - 1.00 ] cm AV Peak PG9 mmHg LA Volume Index 26 [ 16 - 34 ] cc/m2 AV VTI25.87 cm LVOT Diam 2.01 [ 1.70 - 2.10 ] cm LVOT Peak Cooper 1.08 [ 0.70 - 1.10 ] m/s LVOT VTI 18.41 cm MV E Peak Cooper 0.62 [ 0.60 - 1.30 ] m/s MV A Peak Cooper 1.00 [ 1.00 - 1.20 ] m/s MV Decel Time 138 [ 104 - 258 ] msec TR Peak Cooper 2.38 [ 1.00 - 2.80 ] m/s TR Peak PG 23 mmHg Lateral E` 0.10 [ 0.10 - 0.15 ] m/s E` 0.10 m/s E/E` 6 Measurement Value Normal Range MeasurementValue Normal Range 2D/M ModeDoppler - FINDINGS: Interpretation Site: Exam was interpreted at [facility] [place]. Left Ventricle: Normal left ventricular systolic function. No focal wall motionabnormalities. Normal left ventricular size. Normal left ventricular wall thickness. Impaireddiastolic relaxation Grade I. Ejection fraction is measured at 62 %. GlobalLongitudinal Strain is -18 %. GLS is borderline. Right Ventricle: Normal right ventricular size. Normal right ventricular systolicfunction. Left Atrium: The left atrium is normal in size. Right Atrium: The right atrium is normal in size. Atrial Septum: Normal atrial septum. Mitral Valve: Normal appearance of the mitral valve. No mitral valve regurgitation isseen. There is no hemodynamically significant mitral stenosis by Doppler. Aortic Valve: No evidence of hemodynamically significant aortic stenosis by Doppler.Aortic cusps appear mildly sclerotic. Trileaflet aortic valve. Trace aortic valveregurgitation. Tricuspid Valve: Normal appearance of the tricuspid valve. Estimated peak RVSP is 28 mmHg.Mild tricuspid regurgitation. Pulmonic Valve: Normal appearance of the pulmonic valve. No evidence of pulmonicregurgitation. Pericardium: Normal pericardium with no significant pericardial effusion. Aorta: Sinus of Valsalva is normal. IVC: Normal size and normal respiratory collapse consistent with normal rightatrial pressure (<5 mmHg). Pulmonary Artery: Normal pulmonary artery size. CONCLUSIONS: Normal left ventricular systolic function. No focal wall motionabnormalities. Normal left ventricular size. Normal left ventricular wall thickness. Impaireddiastolic relaxation Grade I. Ejection fraction is measured at 62 %. GlobalLongitudinal Strain is -18 %. GLS is borderline. No evidence of hemodynamically significant aortic stenosis by Doppler.Aortic cusps appear mildly sclerotic. Trileaflet aortic valve. Trace aortic valveregurgitation. Estimated peak RVSP is 28 mmHg. Mild tricuspid regurgitation. Electronically Signed By: Dr. Britney Mallory [facility] 2023-11-06 08:04:33 CDT Anil Taylor MD CV ECHO PROCEDURES Final Resu lt documented in this encounter Visit Diagnoses Diagnosis RBBB Cardiac murmur, unspecified documented in this encounter Care Teams Surgical Elastic Knitter Relationship Specialty Start Date End Date Anil Taylor MD [address] [place] [address] PCP - General Internal Medicine 04/19/21 Anil Taylor MD [address] [place] [address] Internal Medicine 04/19/21 Adrien Young MD [address] [facility] [address] [place] [address] Consulting Physician Infectious Diseases 11/06/21 Milad Garcia MD [address] [facility] [address] [place] [address] Consulting Physician Orthopedic Surgery 03/02/23 documented as of this encounter
--- OUTSIDE RECORDS SUMMARY | 2024-03-19 07:27 | XMS_ITS | Encounter Summary ---
Author Organization [facility] Address [address] [place] [address] Phone Care Team Providers Care Hardener Helper Name Role Phone Anil Gupta MD Primary Care Provider [phone] Anil Gupta MD Unavailable [phone] Adrien Young MD Unavailable [phone] Milad Garcia MD Unavailable [phone] Encounter Details Date Type Department Care Team (Late st Contact Info) Description 01/20/2024 Telephone [facility] Otolaryngology [address] [place] [address] Edmundo Guajardo MD [address] [place] [address] Social History Tobacco Use Types Packs/Day Years [...] week 10/29/2021 How often do you attend [facility] or gnosticist services? 1 to 4 times per year 10/29/2021 Do you belong to any clubs o r organizations such as anabaptism groups, unions, fraternal or athletic groups, or [...] on file Legal Sex Male 12:56 PM DEVELOPER AUTOMATIC Gender Identity Male 05/23/2021 12:08 PM DEVELOPER AUTOMATIC Sexual Orientation Straight 05/23/2021 12 :08 PM DEVELOPER AUTOMATIC documented as of this encounter Miscellaneous Notes * Telephone Encounter - Edmundo Guajardo MD - 01/20/2024 12:27 PM CDT He had his sinus CT scan done at our office today. I called to review the findings. He has obstruction of both frontal sinuses with thickening at the base of the left frontal sinus and complete opacification of the right frontal sinus. He has some remaining anterior ethmoid sinuses that are mildly diseased bilaterally. He also has a lot of thickened secretions within the maxillary sinuses despitehaving patent openings. I am recommending surgery to address these problems. I am recommending endoscopic bilateral anterior ethmoidectomies with bilateral frontal sinusotomies as well as bilateral maxillary antrostomies with removal of debris. I discussed the risk of sinus surgery including the risk of recurrent or persis tent disease that may require further revision surgery. There is a risk of orbital injury and TOOTH GRINDER injury which could result in blindness or double vision or brain damage. These risks are quite low. Some risk of permanent anosmia. He understands. He would like to go ahead and pursue this. I told him that this would probably havesome impact on his chronic cough. He had no questions. documented in this encounter Plan of Treatment Not on file documented as of this encounter Visit Diagnoses Not on filedocumented in this encounter Care Teams Hardener Helper Relationship Specialty Start Date End Date Anil Gupta MD [address] [place] [address] PCP - General Internal Medicine 04/19/21 Anil Gupta MD [address] [place] [address] Internal Medicine 04/19/21 Adrien Young MD [address] [facility] [address] [place] [address] Consulting Physician Infectious Diseases 11/06/21 Milad Garcia MD [address] [facility] [address] [place] [address] Consulting Physician Orthopedic Surgery 03/02/23 documented as of this encounter
--- OUTSIDE RECORDS SUMMARY | 2024-03-19 07:27 | XMS_ITS | Encounter Summary ---
Author Organization [facility] Address [address] [place] [address] Phone Care Team Providers Care Width Stripper Name Role Phone Anil Gupta MD Primary Care Provider [phone] Anil Gupta MD Unavailable [phone] Adrien Young MD Unavailable [phone] Milad Garcia MD Unavailable Doni Marino MD Unavailable Edmundo Guajardo MD Unavailable [phone] Reason for Visit * Reason Comments Post-op IMAGE GUIDED BILATER AL ENDOSCOPIC ANTERIOR ETHMOIDECTOMY, BILATERAL FRONTAL SINUSOTOMY AND BILATERAL MAXILLARY ANTROSTOMY WITH TISSUE REMOVAL Encounter Details Date Type Department Care Team (Late st Contact Info) Description 03/04/2024 2:45 PM NURSE INFECTION CONTROL Office Visit [facility] Otolaryngology [address] [place] [address] Edmundo Guajardo MD [address] [place] [phone] Chronic pansinusitis (Primary Dx); Thrush Social History Tobacco Use Types Packs/Day [...] often do you attend chur ch or religion services? 1 to 4 times per year 10/29/2021 Do you belong to any clubs o r organizations such as hinduism groups, unions, fraternal or athletic groups, or [...] on file Legal Sex Male 12:56 PM NURSE INFECTION CONTROL Gender Identity Male 05/23/2021 12:08 PM NURSE INFECTION CONTROL Sexual Orientation Straight 05/23/2021 12 :08 PM NURSE INFECTION CONTROL documented as of this encounter Last Filed Vital Signs Vital Sign Reading Time Taken Comments Blood Pressure - - Pulse - - Temperature - - Respiratory Rate 18 03/04/2024 2:49 PM NURSE INFECTION CONTROL Oxygen Saturation - - Inhaled Oxygen Concentration - - Weight 83.9 kg (185 lb) 03/04/2024 2:49 PM NURSE INFECTION CONTROL Height 182.9 cm (6') 03/04/2024 2:49 PM NURSE INFECTION CONTROL Body Mass Index 25.09 03/04/2024 2:49 PM NURSE INFECTION CONTROL documented in this encounter Ordered Prescriptions Prescription Sig Dispense Quantity Refills Last Filled Start Date End Date sodium chloride 0.9% 0.9 % irrigationIndicat ions:Chronic pansinusitis Mix with 160mg Tobramycin with 1 liter of sodium chloride SIG: Using a bulb syringe, rinse both nostrils BID x 14 days 1000 mL 03/04/2024 tobramycin (NEBCIN) 40 mg/mL solutionIndicatio ns:Chronic pansinusitis 160mg Tobramycin in 1 liter of sodium chloride SIG: Using a bulb syringe, rinse both nostrils BID x 14 days 4 mL 03/04/2024 nystatin creamIndications: Thrush Apply to corners of mouth as needed BID x 14 days then PRN 15 g 2 03/04/2024 nystatin 100,000 unit/mL suspensionIndicat ions:Thrush Swish and swallow 5cc QID x 10 days. 200 mL 1 03/04/2024 sulfamethoxazole- trimethoprim (BACTRIM DS) 800-160 mg per tabletIndications :Chronic pansinusitis Take 1 tablet (160 mg of trimethoprim total) by mouth 2 (two) times a day for 14 days 28 tablet 03/04/2024 4 documented in this encounter Progress Notes * Edmundo Guajardo MD - 03/04/2024 2:45 PM CST Douglas Horn is a 74 y.o. male was seen in the office today. Primary care provider is Anil Gupta MD . Chief Complaint: Chief Complaint Patient presents with Post-op IMAGE GUIDED BILATERAL ENDOSCOPIC ANTERIOR ETHMOIDECTOMY, BILATERAL FRONTAL SINUSOTOMY AND BILATERAL MAXILLARY ANTROSTOMY WITH TISSUE REMOVAL HPI: He comes to clinic today for evaluation after his endoscopic sinus surgery. He states that thesinus surgery was pretty easy. He was very surprised that. He think he has noticed improvement already. His headache and pain have improved in his cough has somewhat also. Been blowing a little bit of stuff out of his nose. He uses lot of inhalers. He feels like he might be getting a thrush infection again. He requests some nystatin suspension along with nystatin cream that he will use along the oral commissure area when it breaks out. He is getting back to normal activity. I have reviewed past medical, surgical, family [...] Resp 18 Ht 182.9 cm (6') Wt 83.9 kg (185 lb) BMI 25.09 kg/m?? PHYSICAL EXAMINATION: GENERAL: Normal NEURO/PSYCH: Affect [...] are seen on either side. There were fairly clear secretions in the nose bilaterally.. ORAL CAVITY/ OROPHARYNX: Skin of the lips is without lesions. Normal oral vestibule. Oral mucosa ismoist without lesions. Tongue and floor of mouth are without lesions or masses. Palate has no lesions and elevates symmetrically. Tonsils are negative. Oropharynx is clear without erythema or exudate. There are slight white patches on the soft palate and uvula as well as posterior oropharynx. NECK: Trachea is midline. Thyroid is normal in size with no apparent nodules. Larynx: Base of tongue is symmetric without masses. Larynx could not be seen well with the mirror due to gag reflex. Salivary Glands: The submandibular glands are non-tender without masses. The parotid glands are non-tender without edema or masses. There is clear saliva flow from Stensen's and Tewksbury's ducts bilaterally. LYMPHATIC: No cervical lymphadenopathy. MUSCULOSKELATAL: Ambulates without difficulty. Neck full range of motion. RESPIRATORY: Breathing comfortably without audible wheeze, stertor or stridor. PROCEDURE:Nasal Endoscopy with debridement: Indications: Patient is status post endoscopic sinus surgery and rigid nasal endoscopy was undertaken to visualize the operative sites that cannot be visualized with anterior rhinoscopy. Description: After topical nasal decongestant and anesthesia was applied, a 30 degree 4mm rigid nasal endoscope was used to examine the right and left nasal cavity. The nasal valve areas were examined for abnormalities or collapse. The inferior and middle turbinates were evaluated. The middle and superior meatuses, the sphenoethmoid recesses, and the nasopharynx were examined and inspected for mucopurulence and polyps. The surgically opened sinus cavities were inspected for mucosal changes. Dried and moist packing in the sinus cavities was removed with suction and forceps to assist in healing. This was done bilaterally. The patient tolerated the procedure without complications and was returned to ambulatory status. FINDINGS: The nasal septum has a little bit dry and the inferior turbinates are unremarkable. There is some crusting around the middle turbinates bilaterally and this was removed using forceps. After the ethmoid cavities were cleared as much as possible using suction they appear to be healing nicely. There slight exudate but overall no active discharge noted. ASSESSMENT & PLAN: Chronic pansinusitis His sinuses look much better. The nose is dry but I do not see any active purulent discharge. I didclean a lot of debris out of the ethmoid cavities bilaterally but it was generally moist dissolvable packing. He tolerated that well. He is to different bacteria that we cultured it I am going to treat both of them using a tobramycinnasal rinse and Septra DS. The plan otherwise his to follow- up in about 4 weeks. He asked about using the fluticasone spray and I recommended it. He also asked about the Atrovent nasal spray and I told him to use it only if he starts noticing problems with a runny nose. He understands. Thrush At his request we are going to give him a course of nystatin suspension swish and swallow along with his nystatin cream that he uses along the oral commissure area if it breaks out. Edmundo Guajardo MD E INFECTION CONTROL documented in this encounter Miscellaneous Notes * Assessment & Plan Note - Edmundo Guajardo MD - 03/05/2024 1:46 PM NURSE INFECTION CONTROL Associated Problem(s): Thrush At his request we are going to give him a course of nystatin suspension swish and swallow along with his nystatin cream that he uses along the oral commissure area if it breaks out. E INFECTION CONTROL * Assessment & Plan Note - Edmundo Guajardo MD - 03/05/2024 1:45 PM NURSE INFECTION CONTROL Associated Problem(s): Chronic pansinusitis His sinuses look much better. The nose is dry but I do not see any active purulent discharge. I didclean a lot of debris out of the ethmoid cavities bilaterally but it was generally moist dissolvable packing. He tolerated that well. He is to different bacteria that we cultured it I am going to treat both of them using a tobramycinnasal rinse and Septra DS. The plan otherwise his to follow- up in about 4 weeks. He asked about using the fluticasone spray and I recommended it. He also asked about the Atrovent nasal spray and I told him to use it only if he starts noticing problems with a runny nose. He understands. E INFECTION CONTROL documented in this encounter Plan of Treatment Not on file documented as of this encounter Visit Diagnoses Diagnosis Chronic pansinusitis- Primary Other chronic sinusitis Thrush Candidiasis of mouth documented in this encounter Discontinued Medications Medication Sig Discontinue Reason Start Date End Da te nystatin 100,000 unit/mL suspensionIndications:T hrush Swish and swallow 5cc QID x 10 days. Reorder 02/08/2024 03/04/2024 tobramycin (NEBCIN) 40 mg/mL solutionIndications:Chr onic pansinusitis 160mg Tobramycin in 1 liter of sodium chloride SIG: Using a bulb syringe, rinse both nostrils BID x 14 days Reorder 10/28/2023 03/04/2024 sodium chloride 0.9% 0.9 % irrigationIndications:C hronic pansinusitis Mix with 160mg Tobramycin with 1 liter of sodium chloride SIG: Using a bulb syringe, rinse both nostrils BID x 14 days Reorder 10/28/2023 03/04/2024 documented as of this encounter Care Teams Width Stripper Relationship Specialty Start Date End Date Anil Gupta MD [address] [place] [address] PCP - General Internal Medicine 04/19/21 Anil Gupta MD [address] [place] [address] Internal Medicine 04/19/21 Adrien Young MD [address] [place] [address] Consulting Physician Infectious Diseases 11/06/21 Milad Garcia MD [address] [place] [address] Consulting Physician Orthopedic Surgery 03/02/23 Doni Marino MD [address] [facility] [address] [place] [address] Referring Physician Pulmonary Disease 02/09/24 Edmundo Guajardo MD [address] [place] [address] Consulting Physician Otolaryngology 02/22/24 documented as of this encounter
--- OUTSIDE RECORDS SUMMARY | 2024-03-19 07:27 | XMS_ITS | Encounter Summary ---
Author Organization Formerly [facility] Address [address] [place] [address] Care Team Providers Care Nip Wrapper Name Role Phone Anil Gupta MD Primary Care Provider [phone] Anil Gupta MD Unavailable [phone] Adrien Young MD Unavailable [phone] Milad Garcia MD Unavailable [phone] Doni Marino MD Unavailable Edmundo Guajardo MD Unavailable [phone] Reason for Visit * Auth/Cert (Routine) Specialty Diagnoses / Procedures Referred By Enio granado Referred To Contact Diagnoses Chronic pansinusitis Chronic pansinusitis [J32.4] Procedures ND NASAL/SINUS NDSC W/PARTIAL ETHMOIDECTOMY ND NASAL/SINUS NDSC W/RMVL TISS FROM FRONTAL SINUS ND NSL/SINUS NDSC MAX ANTROST W/RMVL TISS MAX SINUS ND STRTCTC CPTR ASSTD PX EXTRADURAL CRANIAL IMAGE GUIDED BILATERAL ENDOSCOPIC ANTERIOR ETHMOIDECTOMY, BILATERAL FRONTAL SINUSOTOMY AND BILATERAL MAXILLARY ANTROSTOMY WITH TISSUE REMOVAL Referral ID Status Reason Start Date Expiration Date Visits Re quested Visits Authorized [id number] 1 1 Encounter Details Date Type Department Care Team (Late st Contact Info) Description 02/22/2024 7:29 AM HANDBOOK WRITER Anesthesia Event [facility] OR [address] [place] [id number] Jitendra Can MD [address] [place] [id number] Franklni Moser MD [facility] [facility] [place] [address] Anesthesia Record Procedure Summary Procedure Name Responsible Anesthesiologist Anesthesia Start Time Anesthesia Stop Time IMAGE GUIDED BILATERAL ENDOSCOPIC ANTERIOR ETHMOIDECTOMY, BILATERAL FRONTAL SINUSOTOMY AND BILATERAL MAXILLARY ANTROSTOMY WITH TISSUE REMOVAL (Bilateral: Face) Jitendra Can MD 02/22/24 0729 02/22/24 0925 Events Date Time Event Comment 02/22/2024 0700 0728 In Room 0729 An Start 0729 An Start Data 0732 An Induction The patient was reevaluated immediately before moderate or deep sedation use and before anesthesia induction. 0735 An Intubation 0740 Anesthesia Ready 0743 Proc Start 0852 An Data Art BP retaken 0913 Proc Fin 0917 An Extubation 0918 an stop data 0920 Out of Room 0922 Handoff to RN I completed my handoff to the receiving nurse during which we: 1. Patient identified 2. Responsible provider identified 3. Pertinent medical history reviewed 4. Procedure type and surgical course discussed 5. Intraoperative anesthetic management and any significant issues discussed 6. Expectations and concerns for postop period discussed 7. Questions solicited from receiving nurse 8. Patient disposition at the time of handoff: PACU 924 An Stop Meds Name Total fentaNYL 50 mcg/mL PF 100 mcg lidocaine (cardiac) syringe 2 % 80 mg propofol 170 mg rocuronium 30 mg ondansetron PF 4 mg glycopyrrolate 0.4 mg ceFAZolin (ANCEF) 2,000 mg/20 mL in ster ile water (premix) 2,000 mg 2,000 mg sugammadex 200 mg phenylephrine syringe 1 mg/10 ml 800 mcg sodium chloride 0.9% infusion 900 mL * Agents Name O2% N2O O2 N2O Air Sevoflurane Inspired Sevoflurane * Blood No blood administrations on file. Lines, Drains, and Airways Type Details Placement Removal Wound 02/22/24; 742; Non-incision; Nare; Bilateral 02/22/24 0743 by Selene Gillette RN Peripheral IV Placement Date: 01/29 08/20; Placement Time: 0654; Catheter Size: 20 G; Orientation: Left; Location: Antecubital; Site Prep: Chlorhexidine; Technique: Anatomical landmarks; Inserted by: Kendra ADHIKARI; Insertion Attempts: 1; Patient Tolerance: Tolerated well; Removal Date: 02/22/24; Removal Time: 1208; Removal Reason: Discharge 02/22/24 0654 by Kitty Gill RN 02/22/24 1208 by Robyn Seth RN ETT Placement Date: 01/29 08/20; Placement Time: 07 (created via procedure documentation); Mask Ventilation: 2; Technique: Direct laryngoscopy; Type: ETT - single; Single Lumen Tube Size: 8 mm; Cuffed: Yes; Laryngoscope: Renaldo; Blade Size: 3; Location: Oral; Grade View: Grade IIa; Insertion Attempts: 1; Placement Verification: Auscultation, Capnometry; Airway Comment: No change in dentition from preoperative status.; Removal Date: 02/22/24; Removal Time: 91602/22/24 0748 by Mirlande Hernandez CRNA 02/22/24 0917 by Mirlande Hernandez CRNA documented in this encounter Social History Tobacco [...] week 10/29/2021 How often do you attend [facility] or baptism services? 1 to 4 times per year 10/29/2021 Do you belong to any clubs o r organizations such as rastafari groups, unions, fraternal or athletic groups, or [...] on file Legal Sex Male 12:56 PM HANDBOOK WRITER Gender Identity Male 05/23/2021 12:08 PM HANDBOOK WRITER Sexual Orientation Straight 05/23/2021 12 :08 PM HANDBOOK WRITER documented as of this encounter OR Notes * Anesthesia Postprocedure Evaluation - Jitendra Can MD - 02/22/2024 9:47 AM HANDBOOK WRITER Patient: Douglas Horn Procedure Summary Date: 02/22/24 Room / Location: [facility] 20 / [facility] Anesthesia Start: 728 Anesthesia Stop: 924 Procedure: IMAGE GUIDED BILATERAL ENDOSCOPIC ANTERIOR ETHMOIDECTOMY, BILATERAL FRONTAL SINUSOTOMY AND BILATERAL MAXILLARY ANTROSTOMY WITH TISSUE REMOVAL (Bilateral: Face) Diagnosis: Chronic pansinusitis (Chronic pansinusitis [J32.4]) Surgeons: Edmundo Guajardo MD Responsible Provider: Jitendra Can MD Anesthesia Type: general ASA Status: 2 Anesthesia Type: general Last vitals BP 128/83 (BP Location: Right arm, Patient Position: HOB 30 degrees) Pulse 67 Temp 36.2 ??C (97.1 ??F) (Temporal) Resp 10 SpO2 100% Anesthesia Post Evaluation Patient location during evaluation: PACU Patient participation: complete - patient participated Level of consciousness: fully awake Pain management: adequate Airway patency: adequate Cardiovascular status: acceptable Respiratory status: acceptable Hydration status: acceptable Pt is: normothermic No notable events documented. BOOK WRITER * Anesthesia Procedure Notes - Mirlande Hernandez CRNA - 02/22/2024 7:47 AM CSTAssociated Order(s): Airway Airway Patient location: OR Urgency: elective Indications for airway management: anesthesia Difficult airway: no Staff: Supervising provider: Jitendra Can MD Placed by: BOILER TESTING TECHNICIAN: Mirlande Hernandez CRNA Emergent airway documentation: Risks [...] No change in dentition from preoperative status. BOOK WRITER * Anesthesia Preprocedure Evaluation - Jitendra Can MD - 02/22/2024 6:51 AM HANDBOOK WRITER Images from the original note were not included. Anesthesia Evaluation Douglas Horn is a 74 y.o. male IMAGE GUIDED BILATERAL ENDOSCOPIC ANTERIOR ETHMOIDECTOMY, BILATERAL FRONTAL SINUSOTOMY AND BILATERAL MAXILLARY ANTROSTOMY WITH TISSUE REMOVAL (Bilateral: Face) Pre-Op Diagnosis Codes: * Chronic pansinusitis [J32.4] HISTORY Past Medical History Information obtained from: patient and chart. Information obtained during: In Person Neurological Pertinent negatives: seizures; CVA/stroke and TIA Comments: Polyneuropathy Cardiovascular + Other arrhythmia (02/09/24 EKG) - RBBB. Pertinent negatives: hypertension ; CAD and [place] Respiratory + Asthma (typically does not need rescue inhaler often) Pertinent negatives: sleep apnea (HALLIE) and non-smoker Comments: bronchiectasis Hepatic / Heme Pertinent negatives: liver disease Gastrointestinal + GERD (well controlled) - on daily therapy. Renal / Pertinent negatives: renal disease Endocrine / Other Pertinent negatives: diabetes mellitus and thyroid disease Functional Capacity Functional capacity: 6-10 METs Review of Systems Pertinent negatives: productive cough; wheezing; SOB; recent cold/flu; fever; chest pain; palpitations and orthopnea Patient Active Problem List Diagnosis Date Noted Thrush 12/02/2023 Deviated nasal septum 09/16/2023 Chronic pansinusitis 09/16/2023 Bronchiectasis (HCC) 05/04/2023 Cough 05/04/2023 Herpes 05/04/2023 Pseudomonas infection 05/04/2023 Pulmonary eosinophilia (HCC) 05/04/2023 Recurrent sinus infections 05/04/2023 Restless leg syndrome 05/04/2023 Severe persistent asthma with exacerbation 05/04/2023 Shortness of breath 05/04/2023 Status post lumbar spinal fusion 12/31/2021 Status post lumbar spinal fusion 11/13/2021 Moderate malnutrition (CMS/HCC) 11/04/2021 Severe sepsis ([facility]) 10/29/2021 Infection following a procedure, deep incisional surgical site, initial encounter 10/29/2021 H/O medication noncompliance 10/29/2021 GERD (gastroesophageal reflux disease) 10/29/2021 Hyponatremia 10/29/2021 SIADH (syndrome of inappropriate ADH production) ([facility]) 10/29/2021 Infection of lumbar spine (CMS/HCC) (HCC) 10/28/2021 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 Past Medical History: Diagnosis Date Arthritis Asthma Chronic pansinusitis ED (erectile dysfunction) GERD (gastroesophageal reflux disease) Lead poisoning Lumbar radiculopathy Peripheral neuropathy Pseudomonas infection h/o Pseudomonas respiratory infection comes and goes - on prison antibiotics to prevent further mucous build up Restless leg syndrome Sinusitis Toxic effect of mercury and its compounds, accidental (unintentional), initial encounter Wears glasses Past Surgical History: Procedure Laterality Date COLONOSCOPY EPIDURAL STEROID INJECTION and had INJECTION FACET JOINT L3-4, L4-5 INCISION AND DRAINAGE OF WOUND 10/2021 X2 - Dr. Sheets & Dr. Garcia LATERAL FUSION LUMBAR SPINE 10/11/2021 S/P L5-S1 TLIF ([facility]) MICRODISCECTOMY LUMBAR 06/03/2021 S/P Right L5-S1 Microdiscectomy ([facility]) SEPTOPLASTY 2016 TONSILLECTOMY AND ADENOIDECTOMY as a child VASECTOMY No Known Allergies Med List Status: Nurse Complete Set By: Clayton Marie RN at 02/09/2024 10:19 AM Status Comment 02/09/2024 10:20 AM Patient did not bring medication bottles to PAT visit reviewed verbally Taking? Last Dose Start Date End Date Provider benralizumab (Fasenra) 30 mg/mL syringe -- 12/12/19 -- ProviderCarin MD esomeprazole DR (NexIUM) 20 mg capsule -- 04/04/22 -- Carin Chirinos MD fluticasone propionate (FLONASE) 50 mcg/actuation nasal spray -- -- -- Carin Chirinos MD ipratropium (ATROVENT) 42 mcg (0.06 %) nasal spray -- -- -- Carin Chirinos MD nortriptyline (PAMELOR) 25 mg capsule -- 11/06/23 11/05/24 Campbell Araya MD Take 1 capsule (25 mg total) by mouth nightly ondansetron ODT (ZOFRAN-ODT) 8 mg disintegrating tablet Not Taking -- -- Carin Chirinos MD pregabalin (LYRICA) 150 mg capsule -- 05/04/23 -- Campbell Araya MD Take 1 capsule (150 mg total) by mouth 3 (three) times a day Patient taking differently: Take 1 capsule (150 mg total) by mouth nightly rOPINIRole (REQUIP) 2 mg tablet -- -- -- Carin Chirinos MD sildenafiL (VIAGRA) 100 mg tablet -- -- -- Carin Chirinos MD Trelegy Ellipta 200-62.5-25 mcg inhaler -- 10/06/23 -- Carin Chirinos MD Ventolin HFA 90 mcg/actuation inhaler -- 01/27/24 -- Carin Chirinos MD Flag for Review Taking? Last Dose Start Date End Date Provider DULoxetine DR (CYMBALTA) 30 mg capsule Not Taking 04/10/23 -- Carin Chirinos MD Edex 10 mcg injection Not Taking 10/13/23 -- Carin Chirinos MD famotidine (PEPCID) 20 mg tablet () -- 03/04/22 10/28/23 Carin Chirinos MD finasteride (PROSCAR) 5 mg tablet -- 03/13/23 -- Carin Chirinos MD magnesium gluconate 200 mg tablet Not Taking -- -- Carin Chirinos MD nystatin 100,000 unit/mL suspension Not Taking 02/08/24 -- Edmundo Guajardo MD Swish and swallow 5cc QID x 10 days. Patient not taking: Reported on 02/09/[address] (PROTONIX) 40 mg EC tablet () Not Taking 09/16/23 01/13/24 Edmundo Guajardo MD Take 1 tablet (40 mg total) by mouth 2 (two) times a day Patient not taking: Reported on 02/09/2024 predniSONE (DELTASONE) 10 mg tablet Not Taking 10/06/23 -- Crain Chirinos MD sodium chloride 0.9% 0.9 % irrigation -- 10/28/23 -- Edmundo Guajardo MD Mix with 160mg Tobramycin with 1 liter of sodium chloride SIG: Using a bulb syringe, rinse both nostrils BID x 14 days Patient not taking: Reported on 01/13/2024 tiZANidine (ZANAFLEX) 2 mg tablet -- 04/10/23 -- Carin Chirinos MD tobramycin (NEBCIN) 40 mg/mL solution Not Taking 10/28/23 -- Edmundo Guajardo MD 160mg Tobramycin in 1 liter of sodium chloride SIG: Using a bulb syringe, rinse both nostrils BID x14 days Patient not taking: Reported on 02/09/2024 Current Facility-Administered Medications: acetaminophen (TYLENOL) tablet 975 mg, 975 mg, oral, Once ceFAZolin (ANCEF) 2,000 mg/20 mL in sterile water (premix) 2,000 mg, 2,000 mg, intravenous, Once dexAMETHasone (DECADRON) 4 mg/mL injection 8 mg, 8 mg, intravenous, Once famotidine (PEPCID) tablet 20 mg, 20 mg, oral, Once lidocaine (XYLOCAINE) 10 mg/mL (1 %) injection 2-10 mg, 0.2-1 mL, other, Once PRN oxymetazoline (AFRIN) 0.05 % nasal spray 2 spray, 2 spray, each nostril, Once sodium chloride 0.9% infusion, 50 mL/hr, intravenous, Continuous Social History Tobacco Use Smoking Status Never Smokeless Tobacco Never Alcohol Use: Alcohol Misuse (02/22/2024) AUDIT-C Frequency of Alcohol Consumption: 4 or more times a week Average Number of Drinks: 3 or 4 Frequency of Binge Drinking: Less than monthly Substance and Sexual Activity Drug Use Yes Types: Alcohol Family History Problem Relation Age of Onset No Known Problems Mother No Known Problems Father Vitals: 02/22/24 0649 BP: 116/83 Pulse: 64 Resp: 18 Temp: 36.2 ??C (97.2 ??F) SpO2: 99% PT: No results found for requested labs within last 30 days. INR: No results found for requested labs within last 30 days. APTT: No results found for requested labs within last 30 days. Hgb A1C: No results found for requested labs within last 30 days. CBC RBC: No results found for requested labs within last 30 days. RDW: No results found for requested labs within last 30 days. MCHC: No results found for requested labs within last 30 days. MCH: No results found for requested labs within last 30 days. MCV: No results found for requested labs within last 30 days. Hct: No results found for requested labs within last 30 days. Hgb: No results found for requested labs within last 30 days. WBC: No results found for requested labs within last 30 days. MPV: No results found for requested labs within last 30 days. Platelets: No results found for requested labs within last 30 days. RDW CV: No results found for requested labs within last 30 days. RDW Sd: No results found for requested labs within last 30 days. BMP Glucose: No results found for requested labs within last 30 days. Calcium: No results found for requested labs within last 30 days. Sodium: No results found for requested labs within last 30 days. Potassium: No results found for requested labs within last 30 days. CO2: No results found for requested labs within last 30 days. Chloride: No results found for requested labs within last 30 days. BUN: No results found for requested labs within last 30 days. Creatinine: No results found for requested labs within last 30 days. STOP-Bang Total Score: 3 DOS Physical Exam Medical history, medications, and allergies reviewed. Attestation: This PAT evaluation 02/22/2024. Airway Exam: Mallampati: II Cervical ROM: FROM TM distance: normal Cardiovascular Exam: Rate: regular Rhythm: regular Pulmonary Exam: LCTA, bilat EENT Exam: trachea midline Dental Exam: Appears intact Skin Exam: Skin is warm. Abdominal Exam: Abdomen is soft. Current state: Patient's current state is cooperative. Anesthesia Plan ASA 2 My patient is approved for the Anesthesia Controlled Medication protocol when under care of a BOILER TESTING TECHNICIAN Planned anesthesia: General Induction: Induction: intravenous. Informed Consent: Discussed plan with BOILER TESTING TECHNICIAN. Anesthesia plan and risks discussed with patient. Consent and Attending signature: I and/or my designee have discussed the anesthesia plan, benefits, possible alternatives, parental presence at time of induction (if indicated), and clinically relevant risks that may include dental injury, unintentional awareness, and/or other complications. The patient and/or parent/legal guardian understand, and agree to proceed. All questions answered. BOOK WRITER documented in this encounter Plan of Treatment Not on file documented as of this encounter Procedures Procedure Name Priority Date/Time Associated Diagnosis Comments ND AN PROCEDURE PLACEHOLDER Routine 02/22/2024 7:47 AM HANDBOOK WRITER ND AN ELECTIVE ENDOTRACHEAL AIRWAY Routine 02/22/2024 7:47 AM HANDBOOK WRITER documented in this encounter Results * ND AN ELECTIVE ENDOTRACHEAL AIRWAY, ND AN PROCEDURE PLACEHOLDER (02/22/2024 7:47 AM HANDBOOK WRITER) Narrative Mirlande Hernandez CRNA - 02/22/2024 7:47 AM HANDBOOK WRITER Mirlande Hernandez CRNA ? 02/22/2024 ??7:48 AM Airway Patient location: OR Urgency: elective Indications for airway management: anesthesia Difficult airway: no Staff: Supervising provider: Jitendra Can MD Placed by: BOILER TESTING TECHNICIAN: Mirlande Hernandez CRNA Emergent airway documentation: Risks [...] No change in dentition from preoperative status. us Jitendra Can MD ANESTHESIA ORDERABLES Final Resu lt documented in this encounter Visit Diagnoses Not on filedocumented in this encounter Administered Medications Inactive Administered Medications - up to 3 most recent administrations Medication Order MAR Action Action Date Dose Rate Site ceFAZolin (ANCEF) 2,000 mg/20 mL in sterile water (premix) 2,000 mg 2,000 mg, intravenous, at 400 mL/hr, Administer over 3 Minutes, Once, On Thu02/22/24 at 0715, For 1 dose, Pre-Op, Indications: Prophylaxis, SurgicalIndications:Prophylaxis, Surgical Given 02/22/2024 7:40 AM HANDBOOK WRITER 2,000 mg fentaNYL (SUBLIMAZE) preservative free injection intravenous, As needed, Starting on Thu02/22/24 at 0729, Anesthesia Intra-op Given 02/22/2024 9:14 AM HANDBOOK WRITER 25 mcg Given 02/22/2024 8:57 AM HANDBOOK WRITER 25 mcg Given 02/22/2024 7:29 AM HANDBOOK WRITER 50 mcg glycopyrrolate (ROBINUL) injection intravenous, Administer over 1 Minutes, As needed, Starting on Thu02/22/24 at 0743, Anesthesia Intra-op Given 02/22/2024 8:32 AM HANDBOOK WRITER 0.2 mg Given 02/22/2024 7:43 AM HANDBOOK WRITER 0.2 mg lidocaine (cardiac) (XYLOCAINE) preservative free injection intravenous, As needed, Starting on Thu02/22/24 at 0732, Anesthesia Intra-op, Indications: Ventricular ArrhythmiasIndications:Ventricular Arrhythmias Given 02/22/2024 7:32 AM HANDBOOK WRITER 80 mg ondansetron (ZOFRAN) injection intravenous, Administer over 2 Minutes, As needed, Starting on Thu02/22/24 at 0903, Anesthesia Intra-op Given 02/22/2024 9:03 AM HANDBOOK WRITER 4 mg phenylephrine (BERTHA-SYNEPHRINE) 1 mg/10 mL (100 mcg/mL) in sodium chloride 0.9% (premix) intravenous, As needed, Starting on Thu02/22/24 at 0743, Anesthesia Intra-op Given 02/22/2024 8:41 AM HANDBOOK WRITER 100 mc g Given 02/22/2024 8:32 AM HANDBOOK WRITER 100 mcg Given 02/22/2024 8:26 AM HANDBOOK WRITER 100 mcg propofoL (DIPRIVAN) 10 mg/mL IV intravenous, As needed, Starting on Thu02/22/24 at 0732, Anesthesia Intra-op Given 02/22/2024 8:59 AM HANDBOOK WRITER 10 mg Given 02/22/2024 7:32 AM HANDBOOK WRITER 160 mg rocuronium (ZEMURON) injection intravenous, As needed, Starting on Thu02/22/24 at 0732, Anesthesia Intra-op Given 02/22/2024 7:32 AM HANDBOOK WRITER 30 mg sodium chloride 0.9% infusion 50 mL/hr, intravenous, Continuous, Starting on Thu02/22/24 at 0715, Pre-Op Restarted 02/22/2024 7:29 AM HANDBOOK WRITER New Bag 02/22/2024 6:55 AM HANDBOOK WRITER 50 mL/hr 50 mL/hr sugammadex (BRIDION) 100 mg/mL intravenous solution intravenous, As needed, Starting on Thu02/22/24 at 0914, Anesthesia Intra-op Given 02/22/2024 9:14 AM HANDBOOK WRITER 200 mg documented in this encounter Care Teams Nip Wrapper Relationship Specialty Start Date End Date Anil Gupta MD [address] [place] [address] PCP - General Internal Medicine 04/19/21 Anil Gupta MD [address] [place] [address] Internal Medicine 04/19/21 Adrien Young MD [address] [facility] [address] [place] [address] Consulting Physician Infectious Diseases 11/06/21 Milad Garcia MD [address] [facility] [address] [place] [address] Consulting Physician Orthopedic Surgery 03/02/23 Doni Marino MD [address] [facility] [address] [place] [address] Referring Physician Pulmonary Disease 02/09/24 Edmundo Guajardo MD [address] [place] [address] Consulting Physician Otolaryngology 02/22/24 documented as of this encounter
--- OUTSIDE RECORDS SUMMARY | 2024-03-19 07:27 | XMS_ITS | Encounter Summary ---
Author Organization [facility] Healthcare Address [address] [place] [address] Care Team Providers Care Clinical Evaluator Name Role Phone Anil Gupta MD Primary Care Provider [phone] Anil Gupta MD Unavailable [phone] Adrien Young MD Unavailable [phone] Milad Garcia MD Unavailable [phone] Encounter Details Date Type Department Care Team (Late st Contact Info) Description 02/04/2024 Orders Only [facility] PreAdmission Testing [address] [place] [address] Chaparrita Williamson RN Social History Tobacco Use Types Packs/Day Years [...] often do you attend chur ch or yazidi services? 1 to 4 times per year 10/29/2021 Do you belong to any clubs o r organizations such as episcopal groups, unions, fraternal or athletic groups, or [...] on file Legal Sex Male 12:56 PM STORE SPECIALIST Gender Identity Male 05/23/2021 12:08 PM STORE SPECIALIST Sexual Orientation Straight 05/23/2021 12 :08 PM STORE SPECIALIST documented as of this encounter Plan of Treatment Not on file documented as of this encounter Visit Diagnoses Not on filedocumented in this encounter Care Teams Clinical Evaluator Relationship Specialty Start Date End Date Anil Gupta MD [address] [place] [address] PCP - General Internal Medicine 04/19/21 Anil Gupta MD [address] [place] [address] Internal Medicine 04/19/21 Adrien Young MD [address] [facility] [address], [place] [address] Consulting Physician Infectious Diseases 11/06/21 Milad Garcia MD [address] [address] Consulting Physician Orthopedic Surgery 03/02/23 documented as of this encounter
--- OUTSIDE RECORDS SUMMARY | 2024-03-19 07:27 | XMS_ITS | Encounter Summary ---
Author Organization [facility] Healthcare Address [address] [place] [address] Care Team Providers Care Director Product Safety Name Role Phone Anil Gupta MD Primary Care Provider [phone] Anil Gupta MD Unavailable [phone] Adrien Young MD Unavailable [phone] Milad Garcia MD Unavailable [phone] Doni Marino MD Unavailable Edmundo Guajardo MD Unavailable [phone] Reason for Visit * Auth/Cert (Routine) Specialty Diagnoses / Procedures Referred By Enio granado Referred To Contact Diagnoses Chronic pansinusitis Chronic pansinusitis [J32.4] Procedures [place] NASAL/SINUS NDSC W/PARTIAL ETHMOIDECTOMY [place] NASAL/SINUS NDSC W/RMVL TISS FROM FRONTAL SINUS [place] NSL/SINUS NDSC MAX ANTROST W/RMVL TISS MAX SINUS [place] STRTCTC CPTR ASSTD PX EXTRADURAL CRANIAL IMAGE GUIDED BILATERAL ENDOSCOPIC ANTERIOR ETHMOIDECTOMY, BILATERAL FRONTAL SINUSOTOMY AND BILATERAL MAXILLARY ANTROSTOMY WITH TISSUE REMOVAL Referral ID Status Reason Start Date Expiration Date Visits Re quested Visits Authorized [id number] 1 1 Encounter Details Date Type Department Care Team (Latest Contact Info) Description 02/22/2024 5:42 AM CORPORATE ANALYST - 02/22/2024 12:25 PM CORPORATE ANALYST Hospital Encounter [facility] OR [address] [place] [address] Edmundo Guajardo MD [address] [place] [address] Chronic maxillary sinusitis [J32.0] (Primary Dx); Chronic [...] How often do you attend chur or amish services? 1 to 4 times per year 10/29/2021 Do you belong to any clubs o r organizations such as sabianism groups, unions, fraternal or athletic groups, or [...] on file Legal Sex Male 12:56 PM CORPORATE ANALYST Gender Identity Male 05/23/2021 12:08 PM CORPORATE ANALYST Sexual Orientation Straight 05/23/2021 12 :08 PM CORPORATE ANALYST documented as of this encounter Last Filed Vital Signs Vital Sign Reading Time Taken Comments Blood Pressure 126/84 02/22/2024 11:30 AM CORPORATE ANALYST Pulse 61 02/22/2024 11:30 AM CORPORATE ANALYST Temperature 36.1 ??C (97 ??F) 02/22/2024 10: 05 AM CORPORATE ANALYST Respiratory Rate 16 02/22/2024 11:3 0 AM CORPORATE ANALYST Oxygen Saturation 95% 02/22/2024 11: 30 AM CORPORATE ANALYST Inhaled Oxygen Concentration - - Weight 83.4 kg (183 lb 12.8 oz) 02/22/2024 6:40 AM CORPORATE ANALYST Height - - Body Mass Index 24.93 02/09/2024 10:01 AM CORPORATE ANALYST documented in this encounter Discharge Instructions * Attachments The following attachments cannot be sent through Care Everywhere. * General Anesthesia (Discharge Care) (Georgian) * Functional Endoscopic Sinus Surgery for Rhinosinusitis (Discharge Care) ([place]ian) documented in this encounter Medications at Time of Discharge benralizumab (Fasenra) 30 mg/mL syringe Inject 1 mL (30 mg total) under the skin Gets every 2 month- next dose on 03/07/2024 12/12/[address] (CYMBALTA) 30 mg capsule 1 capsule (30 mg total) 04/10/2023 Edex 10 mcg injection 10/13/[address] (NexIUM) 20 mg capsule Take [...] each nostril 2 (two) times a day HYDROcodone-acetami nophen (NORCO) 5-325 mg per tabletIndications:P ain Take 1 tablet by mouth every 4 (four) hours as needed for pain for up to 24 doses 24 tablet 02/22/2024 HYDROcodone-acetami nophen (NORCO) 7.5-325 mg per tabletIndications:P ain Take 1 tablet by mouth every 6 (six) hours as needed for pain for up to 24 doses 24 tablet 02/22/2024 ipratropium (ATROVENT) 42 mcg (0.06 %) nasal spray Administer 2 sprays into each nostril 2 (two) times a day magnesium gluconate 200 mg tabletIndications:h ypomagnesemia 1 tablet (200 mg total) nortriptyline (PAMELOR) 25 mg capsule Take 1 capsule (25 mg total) by mouth nightly 90 capsule 3 11/06/2023 11/06/19 25 ondansetron ODT (ZOFRAN-ODT) 8 mg disintegrating tablet pantoprazole DR (PROTONIX) 40 mg EC tablet Take 1 tablet (40 mg total) by mouth 2 (two) times a day 60 tablet 1 09/16/2023 pregabalin (LYRICA) 150 mg capsule Take 1 capsule (150 mg total) by mouth 3 (three) times a day 270 capsule 1 05/04/2023 rOPINIRole (REQUIP) 2 mg tablet Take 1 tablet (2 mg total) by mouth nightly sildenafiL (VIAGRA) 100 mg tablet Take 1 tablet (100 mg total) by mouth daily as needed for erectile dysfunction tiZANidine (ZANAFLEX) 2 mg tablet 1 tablet (2 mg total) 04/10/2023 Trelegy Ellipta 200-62.5-25 mcg inhaler Inhale 1 puff daily 10/06/2023 Ventolin HFA 90 mcg/actuation inhaler Inhale 2 puffs every 6 (six) hours as needed 01/27/2024 ciprofloxacin (Cipro) 500 mg tablet Take 1 tablet (500 mg total) by mouth 2 (two) times a day for 14 days 28 tablet 02/22/2024 03/07/20 24 predniSONE (DELTASONE) 10 mg tablet Take 2 tablets (20 mg) by mouth 2 (two) times a day for 4 days 16 tablet 02/22/2024 02/26/20 24 nystatin 100,000 unit/mL suspensionIndicatio ns:Thrush Swish and swallow 5cc QID x 10 days. 200 mL 02/08/2024 03/04/20 24 sodium chloride 0.9% 0.9 % irrigationIndicatio ns:Chronic pansinusitis Mix with 160mg Tobramycin with 1 liter of sodium chloride SIG: Using a bulb syringe, rinse both nostrils BID x 14 days 1000 mL 10/28/2023 03/04/20 24 tobramycin (NEBCIN) 40 mg/mL solutionIndications :Chronic pansinusitis 160mg Tobramycin in 1 liter of sodium chloride SIG: Using a bulb syringe, rinse both nostrils BID x 14 days 4 mL 10/28/2023 03/04/20 24 documented as of this encounter Ordered Prescriptions Prescription Sig Dispense Quantity Refills Last Filled Start Date End Date HYDROcodone-acetam inophen (NORCO) 7.5-325 mg per tabletIndications: Pain Take 1 tablet by mouth every 6 (six) hours as needed for pain for up to 24 doses 24 tablet 02/22/2024 HYDROcodone-acetam inophen (NORCO) 5-325 mg per tabletIndications: Pain Take 1 tablet by mouth every 4 (four) hours as needed for pain for up to 24 doses 24 tablet 02/22/2024 ciprofloxacin (Cipro) 500 mg tablet Take 1 tablet (500 mg total) by mouth 2 (two) times a day for 14 days 28 tablet 02/22/2024 4 predniSONE (DELTASONE) 10 mg tablet Take 2 tablets (20 mg) by mouth 2 (two) times a day for 4 days 16 tablet 02/22/2024 4 documented in this encounter Discharge Disposition Disposition Code Departure Means Destination Comment s Discharge to home or self care documented in this encounter H&P Notes * Edmundo Guajardo MD - 02/22/2024 6:16 AM CST No changes ORATE ANALYST Source Note - Edmundo Guajardo MD - 02/21/2024 3:48 PM CORPORATE ANALYST History and Physical Subjective Patient is a 74 y.o. male with chief complaint of chronic sinusitis. HPI: He has been having symptoms of headaches and facial pressure and yellow nasal discharge. He has also had problems with a chronic cough. His symptoms have subsequently recurred and have persisted despite antibiotics. Has been having some pulmonary problems also. He has had a sinus CT scan which shows significant bilateral pansinusitis with evidence of prior surgery. He now presents for endoscopic sinus surgery.. Past Medical History: Diagnosis Date Arthritis Asthma Chronic pansinusitis ED (erectile dysfunction) GERD (gastroesophageal reflux disease) Lead poisoning Lumbar radiculopathy Peripheral neuropathy Pseudomonas infection h/o Pseudomonas respiratory infection comes and goes - on senior care antibiotics to prevent further mucous build up [...] AND ADENOIDECTOMY as a child VASECTOMY No medications prior to admission. No Known Allergies Social History Tobacco Use Smoking status: Never Smokeless tobacco: Never Substance and Sexual Activity Drug use: Yes Types: Alcohol Sexual activity: Defer Alcohol Use: Alcohol Misuse (02/09/2024) AUDIT-C Frequency of Alcohol Consumption: 4 or more times a week Average Number of Drinks: 3 or 4 Frequency of Binge Drinking: Less than monthly Family History Problem Relation Age of Onset No Known Problems Mother No Known Problems Father Review of Systems: Review of systems per HPI and otherwise all other systems are negative Objective Vitals: Arrival Vitals Temp Pulse Resp BP SpO2 Temp src Heart Rate Source Patient Position BP Location FiO2 (%) 24hr Min/Max: No data recorded Most Recent : There were no vitals filed for this visit. No intake/output data recorded. No intake/output data recorded. Physical exam: Physical Exam Constitutional: Appearance: Normal appearance. HENT: Head: Normocephalic and atraumatic. Right Ear: Tympanic membrane, ear canal and external ear normal. Left Ear: Tympanic membrane, ear canal and external ear normal. Nose: Nose normal. Mouth/Throat: Mouth: Mucous membranes are moist. Pharynx: Oropharynx is clear. Eyes: Extraocular Movements: Extraocular movements intact. Conjunctiva/sclera: Conjunctivae normal. Cardiovascular: Rate and Rhythm: Normal rate and regular rhythm. Pulses: Normal pulses. Heart sounds: Normal heart sounds. Pulmonary: Effort: Pulmonary effort is normal. Breath sounds: Normal breath sounds. Musculoskeletal: General: Normal range of motion. Cervical back: Normal range of motion and neck supple. Skin: General: Skin is warm and dry. Neurological: General: No focal deficit present. Mental Status: He is alert. Psychiatric: Mood and Affect: Mood normal. Behavior: Behavior normal. Assessment: Is having problems with chronic sinusitis which also may be causing a chronic cough. Plan: He is undergoing image guided bilateral endoscopic anterior ethmoidectomies with bilateral frontal sinusotomies. He is also undergoing bilateral maxillary antrostomies with tissue removal. ORATE ANALYST * Edmundo Guajardo MD - 02/21/2024 3:48 PM CST History and Physical Subjective Patient is a 74 y.o. male with chief complaint of chronic sinusitis. HPI: He has been having symptoms of headaches and facial pressure and yellow nasal discharge. He has also had problems with a chronic cough. His symptoms have subsequently recurred and have persisted despite antibiotics. Has been having some pulmonary problems also. He has had a sinus CT scan which shows significant bilateral pansinusitis with evidence of prior surgery. He now presents for endoscopic sinus surgery.. 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 No Known Allergies Social History Tobacco Use Smoking status: Never Smokeless tobacco: Never Substance and Sexual Activity Drug use: Yes Types: Alcohol Sexual activity: Defer Alcohol Use: Alcohol Misuse (02/09/2024) AUDIT-C Frequency of Alcohol Consumption: 4 or more times a week Average Number of Drinks: 3 or 4 Frequency of Binge Drinking: Less than monthly Family History Problem Relation Age of Onset No Known Problems Mother No Known Problems Father Review of Systems: Review of systems per HPI and otherwise all other systems are negative Objective Vitals: Arrival Vitals Temp Pulse Resp BP SpO2 Temp src Heart Rate Source Patient Position BP Location FiO2 (%) 24hr Min/Max: No data recorded Most Recent : There were no vitals filed for this visit. No intake/output data recorded. No intake/output data recorded. Physical exam: Physical Exam Constitutional: Appearance: Normal appearance. HENT: Head: Normocephalic and atraumatic. Right Ear: Tympanic membrane, ear canal and external ear normal. Left Ear: Tympanic membrane, ear canal and external ear normal. Nose: Nose normal. Mouth/Throat: Mouth: Mucous membranes are moist. Pharynx: Oropharynx is clear. Eyes: Extraocular Movements: Extraocular movements intact. Conjunctiva/sclera: Conjunctivae normal. Cardiovascular: Rate and Rhythm: Normal rate and regular rhythm. Pulses: Normal pulses. Heart sounds: Normal heart sounds. Pulmonary: Effort: Pulmonary effort is normal. Breath sounds: Normal breath sounds. Musculoskeletal: General: Normal range of motion. Cervical back: Normal range of motion and neck supple. Skin: General: Skin is warm and dry. Neurological: General: No focal deficit present. Mental Status: He is alert. Psychiatric: Mood and Affect: Mood normal. Behavior: Behavior normal. Assessment: Is having problems with chronic sinusitis which also may be causing a chronic cough. Plan: He is undergoing image guided bilateral endoscopic anterior ethmoidectomies with bilateral frontal sinusotomies. He is also undergoing bilateral maxillary antrostomies with tissue removal. ORATE ANALYST documented in this encounter Miscellaneous Notes * Op Note - Edmundo Guajardo MD - 02/22/2024 7:30 AM CST DATE OF SURGERY : 02/22/2024 PREOPERATIVE DIAGNOSIS: Chronic bilateral pansinusitis POSTOPERATIVE DIAGNOSIS: Same PROCEDURE: IMAGE GUIDED BILATERAL ENDOSCOPIC ANTERIOR ETHMOIDECTOMY, BILATERAL FRONTAL SINUSOTOMY AND BILATERAL MAXILLARY ANTROSTOMY WITH TISSUE REMOVAL (B) SURGEON: Edmundo Guajardo MD PURCHASING ANALYST: N/a ANESTHESIA: GENERAL, Anesthesiologist: Jitendra Can MD MASTER CONTROL SUPERVISOR: Mirlande Hernandez CRNA INTRAOPERATIVE FINDINGS: They were remaining ethmoid air cells and anteriorly on both sides which were somewhat inflamed butalso obstructing the frontal sinuses. I was able to open both frontal sinuses into the anterior ethmoid cavity. The right frontal sinus was completely occluded and this sinus contained a very large amount of thick yellow pus. That was all evacuated. Good opening made into both frontal sinuses. Maxillary sinuses contained a lot of thickened purulent secretions and on the right side there was inspissated debris that was removed also. I created inferior meatus antrostomies to both maxillary sinuses to help remove their contents and irrigate them. DESCRIPTION OF PROCEDURE: The patient was brought to the operating room, transferred to the OR table, and identified by name [Lizette Horn] and ID tag [MR:[id number]; :1950]. Anesthesia was induced and prior toincision, time out was performed and all present were in agreement. Once patient was fully anesthetized he was draped in a sterile manner. The image guided system was then registered calibrated and verified. I then started with a 0 degree scope and on each side I injected the sphenopalatine artery area with lidocaine and epinephrine. Ethmoid cavities were further decongested with Afrin- soaked cottonoids which were removed. I started on the right side and using the 0 degree endoscope I started by widening the maxillary sinus ostia using a straight Tobias-Cut forceps as well as a backbiter and micro debrider. I then used a curved suction to try to evacuate debris from the right maxillary sinus. It was unable to be done because it was a lot of thickened secretions and inspissated debris. I then injected the inferior meatus with a small amount of lidocaine with epinephrine. I then created an inferior meatus antrostomy using a Hubertus elevator as well as straightTru-Cut forceps and a backbiter. I was able to enter the sinus through that and used this as an irrigation port removed the rest of the inspissated debris from the right maxillary sinus. I then took my attention to the ethmoids. I used a curved micro debrider blade to remove some remaining anteriorethmoid septations which were obstructing the frontal sinus and were somewhat inflamed. I then usedmy curved tracking probe to identify a pathway into the right frontal sinus. I switched to a 45 degree scope. I then used a curved micro debrider blade as well as up-biting Giraffe straight and side-biting forceps. Fine and I used the frontal sinus Kerrison and punched to widen the opening into thefrontal sinus. I found a bunch of thickened purulent secretions which at 1st were difficult to removed completely using suction. I then used a curved suction to help irrigate the right frontal sinus removing its contents. I was then ready for the left side and again I used 0 and 45 degree scopes on this side. I widened the maxillary sinus ostia with straight Tobias-Cut forceps and a backbiter. Again found a lot of purulent secretions which were removed. I could not remove them completely via the natural ostia. I then again made an inferior meatus opening into the maxillary sinus on the left side. Through this I was able to insert a curved suctioned and I used this to help irrigate the contents of the left maxillarysinus. Finally I switched to the 45 degree scope and curved micro debrider blade. I then removed the anterior ethmoid septations that were remaining. I found the opening into the frontal sinus a lot more easily on this side and I further widened using draft forceps. Good opening made. At this point the procedure was complete. Hemostasis was achieved using Afrin- soaked cottonoids which were then removed. I then packed each side of the nose in the ethmoid cavity using no pack dissolvable sponge.. At the end of the procedure all instruments were accounted for. Patient tolerated the procedure well. Disposition: The patient was turned over to the anesthesiology team to emerge from anesthesia. He was transferred out of the operating room in stable condition. Estimated Blood Loss: 50 mL Specimens: Order Name Source Comment Collection Info Order Time AEROBIC AND ANAEROBIC CULTURE AND GRAM STAIN Sinus, maxillary, left Left maxillary sinus for culture 02/22/2024 7:56 AM Is patient in the OR? Yes SURGICAL PATHOLOGY Sinus contents Collected By: Edmundo Guajardo MD 02/22/2024 9:06 AM Sponge, instrument, needle counts: Correct at end of procedure Complications: None Edmundo Guajardo MD Date: 02/22/2024 Time: 9:37 AM ORATE ANALYST * Perioperative Nursing Note - Milad Hannah RN - 02/09/2024 3:05 PM CORPORATE ANALYST The following labs from 02/09/2024 Pretesting were reviewed for 02/22/2024 surgery: [] CBC [] CMP [] BMP [] A1C [] PT/INR [] PTT [] MRSA Nasal Swab [] Type and Screen [] Urine Nicotine Screening [] Urine Microscopic [x] EKG [] CXR [] COVID Ok for surgery per Anesthesia guidelines. No further Interventions at this time. ORATE ANALYST * Pre-Procedure Instructions - Clayton Marie RN - 02/09/2024 9:50 AM CORPORATE ANALYST Images from the original note were not included. [address] [address] Surgery Reminder Checklist: Please arrive to [facility] for scheduled surgery on 02/22/2024 at 0730 am Arrive by 0530 am. If the surgeon's office tells you to arrive at a different time after we have given you instructions, please follow their instructions. Please use Entrance A also known as [facility], then follow the signs for OutpatientSurgery. ONE - TWO WEEKS BEFORE YOUR PROCEDURE You may take TYLENOL (ACETAMINOPHEN) as needed for pain. PLEASE FOLLOW YOUR SURGEON'S GUIDELINES REGARDING IBUPROFEN, ALEVE, MULTIVITAMINS, HERBAL SUPPLEMENTS, FISH OIL AND VITAMIN E. YOU MAY BE REQUIRED TO TO HOLD THESE FOR 1-2 WEEKS BEFORE SURGERY. EVENING BEFORE YOUR PROCEDURE Shower with Antibacterial soap followed by Hibiclens OR Chlorhexidine soap the evening before your surgery. After showering, do not apply any lotions, colognes, oils, deodorant, powder, or make-up. Antibacterial Soap Examples: Dial or Safeguard. DO NOT eat after midnight (this includes gum, mints, hard candy, and chewable antacids). MORNING OF YOUR PROCEDURE May have clear liquids up until 0330 AM. This includes, Water, Apple Juice, Gatorade, Black Coffee or Sprite. (NO Dairy, Milk Products, Creamer, Red Gatorade or Loving Juice) Nothing by mouth the 4 hours prior to your procedure, NOT EVEN WATER. [place] your teeth morning of procedure. Use mouth wash if available. Do not swallow any liquids whencleansing your mouth. Shower with Antibacterial soap followed by Hibiclens OR Chlorhexidine soap. After showering, do notapply any lotions, colognes, oils, deodorant, powder, or make-up. Expect to remove wigs, dentures/partials, contact lenses, piercings, hearing aids, and prostheses before surgery. Do not wear jewelry to the hospital on the day of surgery. Bring glasses and hearing aids (with cases for both), inhalers, and CPAP/BiPAP machine day of surgery. If you will be admitted to the hospital after surgery, feel free to bring a toiletry bag. ONLY TAKE THE FOLLOWING MEDICATIONS MORNING OF SURGERY: esomeprazole, Flonase nasal spray, Ipratropium nasal spray, trelegy inhaler, may use ventolin inhaler as needed. (you may take your medications with enough water to safely swallow them) MEDICATION HOLD INSTRUCTIONS:Sildenafil(Viagra)- last dose on 02/17/2024(hold 4 days prior to surgery) VISITOR POLICY Patients in outpatient/surgical settings may have 2 dedicated visitors; children may be permitted as one of the 2 visitors, provided they are accompanied by a caregiver as the second visitor. Children can not be left unattended in the hospital setting. GENERAL INSTRUCTIONS: Please call us with any new prescriptions that were not discussed during your Pretesting Phone Call/Visit so that we can give you appropriate pre op instructions. DO NOT drink alcohol, smoke cigarettes/vapes/e-cigarettes during the 12 hours prior to your surgery. DO NOT use marijuana for 24 hours prior to surgery. DO NOT take illicit/illegal drugs of any kind for 7 days prior to surgery. Arrange for a friend or family member to pick you up from the hospital, drive you home, and assist you if necessary. You will not be allowed to drive home. NO non-medical transport services (buses, taxis, etc.) allowed. A responsible adult must be with you for 24 hours after your procedure. Call your surgeon if you develop a rash, fever, cold, or any other signs/symptoms of infection prior to surgery. You must call your surgeon if you have signs or symptoms of COVID or FLU. If someone in your home tests positive for COVID please call your surgeon. Your surgery may need to be postponed. MORNING OF SURGERY PLEASE BRING: Photo ID, Insurance card. Any questions/concerns, please call Admission and Testing Center at [phone]. Morning of surgery question/concerns, please call Outpatient Surgery at [phone]. Thank You for choosing [facility]'s Surgery department! Thank you Morgan RN ORATE ANALYST documented in this encounter Plan of Treatment Not on file documented as of this encounter Procedures Procedure Name Priority Date/Time Associated Diagnosis Comments SURGICAL PATHOLOGY Routine 02/22/2024 8: 57 AM CORPORATE ANALYST Chronic pansinusitis AEROBIC AND ANAEROBIC CULTURE AND GRAM STAIN Routine 02/22/2024 7:54 AM CORPORATE ANALYST ENDOSCOPIC SINUS SURGERY WITH NAVIGATION 02/22/2024 7:28 AM CORPORATE ANALYST Chronic pansinusitis Special Needs Image guidance system POC BLOOD GAS AND CHEMISTRIES, VENOUS Routine 02/22/2024 6:57 AM CORPORATE ANALYST documented in this encounter Results * Surgical pathology (02/22/2024 8:57 AM CORPORATE ANALYST) Tissue (Sinus contents) 02/22/2024 8:57 AM CORPORATE ANALYST Narrative PATHOLOGY [facility] - 02/24/2024 2:53 PM CORPORATE ANALYST [facility] Department of Pathology [address] [place] [address] ?? Note to Patients: ??This report may [...] : ??1950 (Age: 74) Gender: ??M Address: [address], [place] [address] [facility] #: [id number] Service: Surgery Location: Patient Type: [facility] OUTPATIENT ? Taken: 02/22/2024 Received: 02/22/2024 Accessioned: [...] 0. ?? jjmhb/02/23/2024 10:06 MED Roy, PA (ASCP) Microscopic slide review and interpretation for this case was performed at [facility], Department of Surgical Pathology, [address] [facility] [place] [id number], [place], [place] ??[address] ?? CLIA # [id number] Edmundo Guajardo MD LAB PATHOLOGY ORDERABLES Fi nal Result PATHOLOGY [facility] * (ABNORMAL) Aerobic and anaerobic culture and gram stain Wound Sinus, maxillary, left (02/22/2024 7:54 AM CORPORATE ANALYST) Direct Specimen Exam Stain: Moderate polymorphonuclear leukocytes seen. Moderate Gram Positive Cocci Comment:Testing performed by : [facility], [address] [place] [address]., [id number] Report Final Report: Moderate Staphylococcus aureus Methicillin susceptible (MSSA) by penicillin binding protein 2a (PBP2a) testing. Few Pseudomonas aeruginosa (mucoid morphotype) Rare Mixed microorganisms. (.) MILLI JORDAN Comment:Testing performed by : [facility], [address] [place] [address]., [id number] Organism STAPHYLOCOCCUS AUREUS MILLI Organism PSEUDOMONAS AERUGINOSA (MUCOID MORPHOTYPE) MILLI Organism MIXED MICROORGANISMS. MILLI Wound (Sinus, maxillary, left) 02/22/2024 7:54 AM CORPORATE ANALYST 02/22/2024 9:38 AM CORPORATE ANALYST Narrative MILLI - 02/26/2024 2:25 PM CORPORATE ANALYST Left maxillary sinus for culture Specimen received in [place]. Testing performed by [facility] ([phone]) Specimens submitted from normally sterile body sites [...] LAB MICROBIOLOGY - GENERAL ORDERABLES Final Result [place] [id number] [facility] Department [place] [address] * (ABNORMAL) POC Blood Gas and Chemistries, Venous - (02/22/2024 6:57 AM CORPORATE ANALYST) pH,bryanna POC 7.40 7.32 - 7.43 pCO2, bryanna POC 45 40 - 50 mmHg [facility] pO2,bryanna POC 29 mmHg [facility] Comment: Interpretive Data No reference range established. Current interpretive data was last revised 2019. HCO3, bryanna (Calc) POC 28 20 - 30 mmol/L [facility] Base excess, bryanna POC 3 mmol/L [facility] Comment: Interpretive Data No reference range established. Current interpretive data was last revised 2019. Hemoglobin, bryanna POC 12.9(L) 13.0 - 17.5 g/dL [facility] Hematocrit, bryanna POC 38.0(L) 38.9 - 50.3 % [facility] Sodium, bryanna POC 128(L) 135 - 145 mmol/L [facility] Potassium, bryanna POC 4.4 3.3 - 4.9 mmol/L [facility] Comment: Interpretive Data This method is not able to assess for hemolysis, which may falsely increase potassium concentrations. If further testing is needed to evaluate this result, consider in-laboratory plasma potassium. Current Interpretive Data was last revised on 2021. Glucose, bryanna POC 97 70 - 199 mg/dL [facility] Ionized Calcium, bryanna POC 4.90 4.50 - 5.10 mg/dL [facility] Blood 02/22/2024 6:57 AM CORPORATE ANALYST 02/22/2024 6:57 AM CORPORATE ANALYST Edmundo Guajardo MD LAB POCT ORDERABLES - DEVIC E Final Result [place] [id number] [facility] Department [place] [address] documented in this encounter Visit Diagnoses Diagnosis Chronic pansinusitis- Primary Other chronic sinusitis Chronic pansinusitis Other chronic sinusitis Chronic maxillary sinusitis [J32.0] Chronic maxillary sinusitis Chronic maxillary sinusitis documented in this encounter Admitting Diagnoses Diagnosis Chronic pansinusitis Other chronic sinusitis documented in this encounter Administered Medications Inactive Administered Medications - up to 3 most recent administrations Medication Order MAR Action Action Date Dose Rate Site acetaminophen (TYLENOL) tablet 975 mg 975 mg (rounded from 1,000 mg), oral, Once, On Thu02/22/24 at 0715, For 1 dose, Pre-Op, Indications: Pre-Emptive AnalgesiaIndications:Pre-Emptive Analgesia Given 02/22/2024 6:56 AM CORPORATE ANALYST 975 mg dexAMETHasone (DECADRON) 4 mg/mL injection 8 mg 8 mg, intravenous, Administer over 2 Minutes, Once, On Thu02/22/24 at 0715, For 1 dose, Pre-Op, Administer 1 hour before surgery. Given 02/22/2024 6:56 AM CORPORATE ANALYST 8 mg famotidine (PEPCID) tablet 20 mg 20 mg, oral, Once, On Thu02/22/24 at 0715, For 1 dose, Pre-Op, Indications: gastroesophageal reflux diseaseIndications:gastroesophage al reflux disease Given 02/22/2024 6:56 AM CORPORATE ANALYST 20 mg lidocaine (XYLOCAINE) 10 mg/mL (1 %) injection 2-10 mg 2-10 mg (0.2-1 mL), other, Once as needed, pain with IV placement, Starting on Thu02/22/24 at 0636, For 1 dose, Pre-Op, Administer volume needed to infiltrate IV site. oxymetazoline (AFRIN) 0.05 % nasal spray 2 spray 2 spray, each nostril, Once, On Thu02/22/24 at 0715, For 1 dose, Pre-Op, Indications: in pre-op areaIndications:in pre-op area Given 02/22/2024 6:56 AM CORPORATE ANALYST 2 sprays sodium chloride 0.9% infusion 50 mL/hr, intravenous, Continuous, Starting on Thu02/22/24 at 0715, Pre-Op Restarted 02/22/2024 7:29 AM CORPORATE ANALYST New Bag 02/22/2024 6:55 AM CORPORATE ANALYST 50 mL/hr 50 mL/hr documented in this encounter Discontinued Medications Medication Sig Discontinue Reason Start Date End Da te predniSONE (DELTASONE) 10 mg tablet Stop Taking at Discharge 10/06/2023 024 documented as of this encounter Historical Medications * This list may reflect changes made after this encounter. Ventolin HFA 90 mcg/actuation inhaler Inhale 2 puffs every 6 (six) hours as needed 01/27/2024 sildenafiL (VIAGRA) 100 mg tablet Take 1 tablet (100 mg total) by mouth daily as needed for erectile dysfunction added in this encounter Active and Recently Administered Medications Times are shown in CORPORATE ANALYST. Scheduled Medication Order 02/20/2024 02/21/2024 02/22/2024 acetaminophen (TYLENOL) tablet 975 mg (COMPLETED) 975 mg (rounded from 1,000 mg), oral, Once, On Thu02/22/24 at 0715, For 1 dose, Pre-Op, Indications: Pre-Emptive Analgesia 0656 (Given - Provid er: Kitty Gill RN) ceFAZolin (ANCEF) 2,000 mg/20 mL in sterile water (premix) 2,000 mg (COMPLETED) 2,000 mg, intravenous, at 400 mL/hr, Administer over 3 Minutes, Once, On Thu02/22/24 at 0715, For 1 dose, Pre-Op, Indications: Prophylaxis, Surgical 0740 (Given - Provid er: Mirlande Hernandez CRNA) dexAMETHasone (DECADRON) 4 mg/mL injection 8 mg (COMPLETED) 8 mg, intravenous, Administer over 2 Minutes, Once, On Thu02/22/24 at 0715, For 1 dose, Pre-Op, Administer 1 hour before surgery. 0656 (Given - Provid er: Kitty Gill RN) famotidine (PEPCID) tablet 20 mg (COMPLETED) 20 mg, oral, Once, On Thu02/22/24 at 0715, For 1 dose, Pre-Op, Indications: gastroesophageal reflux disease 0656 (Given - Provid er: Kitty Gill RN) oxymetazoline (AFRIN) 0.05 % nasal spray 2 spray (COMPLETED) 2 spray, each nostril, Once, On Thu02/22/24 at 0715, For 1 dose, Pre-Op, Indications: in pre-op area 0656 (Given - Provid er: Kitty Gill RN) Continuous Medication Order 02/20/2024 02/21/2024 02/22/2024 sodium chloride 0.9% infusion 50 mL/hr, intravenous, Continuous, Starting on Thu02/22/24 at 0715, Pre-Op 0655 (New Bag - Prov ider: Kitty Gill RN)0715 (Due)0728 (Paused - Provider: Mirlande Hernandez CRNA - Comment: Switch to gravity)0729 (Restarted - Provider: Mirlande Hernandez CRNA)0907 (Anesthesia Volume Adjustment - Provider: Mirlande Hernandez CRNA)1043 (Stopped - Provider: Keila Park RN) PRN Medication Order 02/20/2024 02/21/2024 02/22/2024 lidocaine (XYLOCAINE) 10 mg/mL (1 %) injection 2-10 mg 2-10 mg (0.2-1 mL), other, Once as needed, pain with IV placement, Starting on Thu02/22/24 at 0636, For 1 dose, Pre-Op, Administer volume needed to infiltrate IV site. lidocaine-EPINEPHrine (XYLOCAINE with EPI) 1 %-1:100,000 injection (CANCELED) As needed, Starting on Thu02/22/24 at 0743, Intra-Op, Indications: Administration of Local Anesthesia 0743 (Given - Provid er: Edmundo Guajardo MD) oxymetazoline (AFRIN) 0.05 % nasal spray (CANCELED) As needed, Starting on Thu02/22/24 at 0745, Intra-Op 0745 (Given - Provid er: Edmundo Guajardo MD - Comment: applied topically to cottonoids) sodium chloride 0.9% irrigation (CANCELED) As needed, Starting on Thu02/22/24 at 0745, Intra-Op 0745 (Given - Provid er: Edmundo Guajardo MD) documented in this encounter Orders Medications Ordered That Antione ht Not Have Been Administered Count Last Ordered Date First Ordered Date ceFAZolin (ANCEF) 2,000 mg/2 0 mL in sterile water (premix) 2,000 mg 1 02/22/2024 diphenhydrAMINE (BENADRYL) 5 0 mg/mL injection 12.5 mg 1 02/22/2024 fentaNYL (SUBLIMAZE) preserv ative free injection 25 mcg 1 02/22/2024 fentaNYL (SUBLIMAZE) preserv ative free injection 50 mcg 1 02/22/2024 hydrALAZINE (APRESOLINE) injection 5 mg 1 1 04/23/2023 HYDROmorphone (DILAUDID) injection 0.2 mg 1 02/22/2024 HYDROmorphone (DILAUDID) injection 0.4 mg 1 02/22/2024 labetaloL (NORMODYNE,TRANDAT E) injection 5 mg 1 02/22/2024 lidocaine (XYLOCAINE) 10 mg/ mL (1 %) injection 2-10 mg 1 02/22/2024 lidocaine-EPINEPHrine (XYLOC ERASMO with EPI) 1 %-1:100,000 injection 1 02/22/2024 meperidine (DEMEROL) preserv ative free injection 25 mg 1 02/22/2024 naloxone (NARCAN) 0.4 mg/mL injection 0.04-0.4 mg 1 02/22/2024 ondansetron (ZOFRAN) injection 4 mg 1 02/21 oxymetazoline (AFRIN) 0.05 % nasal spray 1 02/22/2024 sodium chloride 0.9% irrigation 1 Diet Count Last Ordered Date First Orde red Date ADULT DISCHARGE DIET 1 02/22/2024 Nursing Count Last Ordered Date First Orde red Date DISCHARGE ACTIVITY 3 02/22/2024 FOLLOW UP WITH ESTABLISHED PROVIDER 2 02/21 NURSING COMMUNICATION 8 02/22/2024 WOUND CARE 1 02/22/2024 Discharge Count Last Ordered Date First Orde red Date DISCHARGE PATIENT 1 02/22/2024 documented in this encounter Care Teams Director Product Safety Relationship Specialty Start Date End Date Anil Gupta MD [address] [facility] [address] [place] [address] PCP - General Internal Medicine 04/19/21 Anil Gupta MD [address] [place] [address] Internal Medicine 04/19/21 Adrien Yonug MD [address] [facility] [address] [place] [address] Consulting Physician Infectious Diseases 11/06/21 Milad Garcia MD [address] [facility] [address] [place] [address] Consulting Physician Orthopedic Surgery 03/02/23 Doni Marino MD [address] [facility] [address] [place] [address] Referring Physician Pulmonary Disease 02/09/24 Edmundo Guajardo MD [address] [place] [address] Consulting Physician Otolaryngology 02/22/24 documented as of this encounter
--- OUTSIDE RECORDS SUMMARY | 2024-03-19 07:27 | XMS_ITS | Encounter Summary ---
Author Organization [facility] Address [address] [place] [address] Phone Care Team Providers Care Speed Runner Name Role Phone Anil Gupta MD Primary Care Provider [phone] Anil Gupta MD Unavailable Adrien Young MD Unavailable [phone] Milad Garcia MD Unavailable [phone] Reason for Visit * Reason Comments Follow-up Sinusitis, persisten t cough. Encounter Details Date Type Department Care Team (Late st Contact Info) Description 12/02/2023 9:15 AM CDT Office Visit [facility] Otolaryngology [address] [place] [id number] Edmundo Guajardo MD [address] [place] [id number] Chronic pansinusitis (Primary Dx); Chronic cough; Thrush Social History Tobacco Use Types Packs/Day [...] How often do you attend chur or quaker services? 1 to 4 times per year [...] on file Legal Sex Male 12:56 PM ENROLLMENT COUNSELOR Gender Identity Male 05/23/2021 12:08 PM ENROLLMENT COUNSELOR Sexual Orientation Straight 05/23/2021 12 :08 PM ENROLLMENT COUNSELOR documented as of this encounter Last Filed Vital Signs Vital Sign Reading Time Taken Comments Blood Pressure - - Pulse - - Temperature - - Respiratory Rate 18 12/02/2023 9:01 AM CDT Oxygen Saturation - - Inhaled Oxygen Concentration - - Weight 86.2 kg (190 lb) 12/02/2023 9:01 AM CDT Height 182.9 cm (6') 12/02/2023 9:01 AM CDT Body Mass Index 25.77 12/02/2023 9:01 AM CDT documented in this encounter Ordered Prescriptions Prescription Sig Dispense Quantity Refills Last Filled Start Date End Date clotrimazole (MYCELEX) 10 mg waylon Take 1 tablet (10 mg total) by mouth 5 (five) times a day for 10 days 50 Waylon 12/02/2023 12/12/2023 documented in this encounter Progress Notes * Edmundo Guajardo MD - 12/02/2023 9:15 AM CDT Douglas Horn is a 73 y.o. male was seen in the office today. Primary care provider is Anil Gupta MD . Chief Complaint: Chief Complaint Patient presents with Follow-up Sinusitis, persistent cough. HPI: He comes to clinic today for evaluation of his chronic productive cough. He states that he hashad no improvement with this. It was actually worse. He took the pantoprazole twice a day. He has not sure really made much of a difference. He also saw his geodetic surveyor who treated him with anothercourse of antibiotics and had him start an inhaler. He saw his geodetic surveyor again things seem to be getting a little bit worse. He just had a culture taken of his sputum. The results are pending. He was able to get the tobramycin rinse to use in his sinuses. They seem to be a little bit better.He has some problems with headaches and facial pressure. He does have less yellow nasal discharge. He also notes that he has a very sore throat lately. He has noticed some whitish debris in the backof his throat. It hurts to swallow. I have reviewed past medical, surgical, family [...] side. There were mild purulent secretions bilaterally. More prominent on the right.. ORAL CAVITY/ OROPHARYNX: Skin of the lips is without lesions. Normal oral vestibule. Oral mucosa ismoist without lesions. Tongue and floor of mouth are without lesions or masses. Palate has no lesions and elevates symmetrically. Tonsils are negative. Oropharynx is clear without erythema or exudate. There are white patches on the soft palate and [...] is clear saliva flow from [place]ensen's and [place]'s ducts bilaterally. LYMPHATIC: No cervical lymphadenopathy. MUSCULOSKELATAL: Ambulates without difficulty. Neck full range of motion. RESPIRATORY: Breathing comfortably without audible wheeze, stertor or stridor. PROCEDURE: Flexible Fiberoptic Laryngoscopy: Indications: I was unable to visualize the structures of the larynx and hypopharynx using transoralmirror. Thus, a flexible laryngoscopy was indicated to evaluate the laryngeal and pharyngeal anatomy. Procedure: The nasal cavities were topically anesthetized and decongested with 4% topical lidocaineand neosynephrine. A flexible scope was introduced into the left nasal cavity. Findings: No mucopurulence, polyps, ulcers, or lesions were seen in the nose. The nasopharynx, oropharynx, hypopharynx, and larynx were evaluated. They were abnormal and demonstrated significant scattered areas of white exudate along the oropharynx and hypopharynx and supraglottic larynx. The vocalcords have normal mobility. No lesions otherwise noted.. The scope was removed from the patient's nose and he tolerated the procedure well. ASSESSMENT & PLAN: Chronic pansinusitis I think he has had a little [...] on seeing him in about 6 weeks. Cough This seems to be worse. Has software support specialist is addressing this and he has a culture pending. Thrush He has a pretty severe yeast infection involving his throat. I am going to place him on Mycelex for10 days. He may need more of this as his antibiotic therapy for his lung disease ensues any understands that. He will call me if the sore throat recurs. Plan is for a follow-up in 6 weeks. Edmundo Guajardo MD documented in this encounter Miscellaneous Notes * Assessment & Plan Note - Edmundo Guajardo MD - 12/02/2023 8:10 PM CDT Associated Problem(s): Thrush He has a pretty severe yeast infection involving his throat. I am going to place him on Mycelex for10 days. He may need more of this as his antibiotic therapy for his lung disease ensues any understands that. He will call me if the sore throat recurs. Plan is for a follow-up in 6 weeks. * Assessment & Plan Note - Edmundo Guajardo MD - 12/02/2023 8:08 PM CDT Associated Problem(s): Cough This seems to be worse. Has software support specialist is addressing this and he has a culture pending. * Assessment & Plan Note - Edmundo Guajardo MD - 12/02/2023 8:08 PM CDT Associated Problem(s): Chronic pansinusitis I think he has had a little [...] on seeing him in about 6 weeks. documented in this encounter Plan of Treatment Not on file documented as of this encounter Visit Diagnoses Diagnosis Chronic pansinusitis- Primary Other chronic sinusitis Chronic cough Cough Thrush Candidiasis of mouth documented in this encounter Care Teams Speed Runner Relationship Specialty Start Date End Date Anil Gupta MD [address] [facility] [address] [place] [address] PCP - General Internal Medicine 04/19/21 Anil Gupta MD [address] [place] [address] Internal Medicine 04/19/21 Adrien Young MD [address] [facility] [facility] [address] [place] [address] Consulting Physician Infectious Diseases 11/06/21 Milad Garcia MD [address] [facility] [address] [place] [address] Consulting Physician Orthopedic Surgery 03/02/23 documented as of this encounter
--- OUTSIDE RECORDS SUMMARY | 2024-03-19 07:27 | XMS_ITS | Encounter Summary ---
Author Organization [facility] Address [address] [place] [address] Phone Care Team Providers Care Purchasing Analyst Name Role Phone Anil Gupta MD Primary Care Provider [phone] Anil Gupta MD Unavailable [phone] Adrien Young MD Unavailable [phone] Milad Garcia MD Unavailable [phone] Reason for Referral * MRI/CAT/PET Scan (Routine) - Closed Specialty Diagnoses / Procedures Referred By Enio granado Referred To Contact Diagnoses Chronic cough Chronic pansinusitis Procedures CT Sinus Stealth WO Contrast Edmundo Guajardo [place] [address] Phone: tel: fax: External Order Referral ID Status Reason Start Date Expiration Date Visits Re quested Visits Authorized [id number] Closed 01/13/2024 02/11/2025 1 1 Reason for Visit * Reason Comments Sinusitis Encounter Details Date Type Department Care Team (Late st Contact Info) Description 01/13/2024 10:15 AM CDT Office Visit [facility] Otolaryngology [address] [place] [address] Edmundo Guajardo MD [place] [address] Chronic cough (Primary Dx); Chronic pansinusitis Social [...] often do you attend chur ch or jew services? 1 to 4 times per year 10/29/2021 Do you belong to any clubs o r organizations such as zoroastrianism groups, unions, fraternal or athletic groups, or [...] on file Legal Sex Male 12:56 PM SAND CARRIER Gender Identity Male 05/23/2021 12:08 PM SAND CARRIER Sexual Orientation Straight 05/23/2021 12 :08 PM SAND CARRIER documented as of this encounter Last Filed Vital Signs Vital Sign Reading Time Taken Comments Blood Pressure - - Pulse - - Temperature - - Respiratory Rate 18 01/13/2024 10:07 AM CDT Oxygen Saturation - - Inhaled Oxygen Concentration - - Weight 86.2 kg (190 lb) 01/13/2024 10:07 AM CDT Height 182.9 cm (6') 01/13/2024 10:07 AM CDT Body Mass Index 25.77 01/13/2024 10:07 AM CDT documented in this encounter Progress Notes * Edmundo Guajardo MD - 01/13/2024 10:15 AM CDT Douglsa Horn is a 73 y.o. male was seen in the office today. Primary care provider is Anil Gupta MD . Chief Complaint: Chief Complaint Patient presents with Sinusitis HPI: He comes to clinic today for evaluation of his chronic cough. He states that he has had no improvement with this. It was generally nonproductive. Seems to be worse at night and it is keeping himup at night. He took the pantoprazole twice a day. He has not sure really made much of a difference. That was discontinued. He also saw his principal mechanical engineer who treated him with another course of antibiotics. He wasgiven Cipro.. He he is undergoing some pulmonary function testing in February. A CT scan of the sinuses was also recommended. He was able to get the tobramycin rinse to use in his sinuses. They seem to be a little bit better. I have reviewed past medical, surgical, family [...] is clear saliva flow from Stensen's and [place]'s ducts bilaterally. LYMPHATIC: No cervical lymphadenopathy. MUSCULOSKELATAL: Ambulates without difficulty. Neck full range of motion. RESPIRATORY: Breathing comfortably without audible wheeze, stertor or stridor. PROCEDURE:Nasal Endoscopy: Indications: Due to inadequate visualization on [...] Middle turbinates are unremarkable. Middle meatus shows evidence of prior bilateral ethmoidectomy. There is a very small amount of crusting in the left mid ethmoid cavity. I do not really see a lot of discharge. Sphenoid ethmoid recesses are clear. ASSESSMENT & PLAN: Chronic pansinusitis On nasal endoscopy I do see a slight amount of exudate or crusting in the left ethmoid cavity. Not a lot of discharge otherwise. I talked with him about this. Considering the cough that is persistentI am recommending a sinus CT scan to further assess this involvement. He would like to do that also. Cough He is going through some further evaluation with a principal mechanical engineer which I think is appropriate. Could be an asthma type cough. We will talk further after the CT scan is complete. Edmundo Guajardo MD documented in this encounter Miscellaneous Notes * Assessment & Plan Note - Edmundo Guajardo MD - 01/13/2024 11:08 AM CDT Associated Problem(s): Cough He is going through some further evaluation with a principal mechanical engineer which I think is appropriate. Could be an asthma type cough. We will talk further after the CT scan is complete. * Assessment & Plan Note - Edmundo Guajardo MD - 01/13/2024 11:07 AM CDT Associated Problem(s): Chronic pansinusitis On nasal endoscopy I do see a slight amount of exudate or crusting in the left ethmoid cavity. Not a lot of discharge otherwise. I talked with him about this. Considering the cough that is persistentI am recommending a sinus CT scan to further assess this involvement. He would like to do that also. documented in this encounter Plan of Treatment Scheduled Orders Name Type Priority Associated Diagnoses Orde r Schedule CT Sinus Stealth WO Contrast Imaging Schedule Routine, Read Routine (OP Routine) Chronic cough Chronic pansinusitis Expected: 01/13/2024, Expires: 01/12/2025 documented as of this encounter Visit Diagnoses Diagnosis Chronic cough- Primary Cough Chronic pansinusitis Other chronic sinusitis documented in this encounter Care Teams Purchasing Analyst Relationship Specialty Start Date End Date Anil Gupta MD [address] [place] [address] PCP - General Internal Medicine 04/19/21 Anil Gupta MD [address] [place] [address] Internal Medicine 04/19/21 Adrien Young MD [address] [facility] [address] [place] [address] Consulting Physician Infectious Diseases 11/06/21 Milad Garcia MD [address] [facility] [address] [place] [address] Consulting Physician Orthopedic Surgery 03/02/23 documented as of this encounter
--- OUTSIDE RECORDS SUMMARY | 2024-03-19 07:27 | XMS_ITS | Referral Summary ---
Author Organization [facility] Address [address] [place] [address] Care Team Providers Care Handy Man Name Role Phone Anil Gupta MD Primary Care Provider Anil Gupta MD Unavailable Adrien Young MD Unavailable Milad Garcia MD Unavailable [phone] Doni Marino MD Unavailable Edmundo Guajardo MD Unavailable Encounters Date Type Department Care Team Description 03/04/2024 2:45 PM LICENSE INSPECTOR Office Visit [facility] Otolaryngology [address] [place] [address] [phone] Edmundo Guajardo MD Chronic pansinusitis (Primary Dx); Thrush 02/22/2024 7:30 AM LICENSE INSPECTOR - 02/22/2024 9:00 AM LICENSE INSPECTOR Surgery [facility] [place] [address] [place] [address] Edmundo Guajardo MD IMAGE GUIDED BILATERAL ENDOSCOPIC ANTERIOR ETHMOIDECTOMY, BILATERAL FRONTAL SINUSOTOMY AND BILATERAL MAXILLARY ANTROSTOMY WITH TISSUE REMOVAL 02/22/2024 7:29 AM LICENSE INSPECTOR Anesthesia Event [facility] [place] [address] [place] [address] Jitendra Can MD Boivin, James R., MD 02/22/2024 5:42 AM LICENSE INSPECTOR - 02/22/2024 12:25 PM LICENSE INSPECTOR Hospital Encounter [facility] Main OR [address] [place] [address] Edmundo Guajardo MD Chronic maxillary sinusitis [J32.0] (Primary Dx); Chronic pansinusitis Discharge Disposition: Discharge to home or self care 02/09/2024 10:00 AM LICENSE INSPECTOR Pre-Admission Testing [facility] PreAdmission Testing [address] [place] [address] Pre-op testing (Primary Dx) 02/08/2024 Telephone [facility] Otolaryngology [address] [place] [address] [phone] Stefanie Hernandez LPN Thrtim 02/04/2024 Orders Only [facility] PreAdmission Testing [address] [place] [phone] Chaparrita Williamson RN 01/20/2024 11:15 AM CDT - 01/20/2024 11:59 PM CDT Hospital Encounter [facility] [employer] [address] [place] [address] Discharge Disposition: Discharge to home or self care 01/20/2024 Telephone [facility] Otolaryngology [address] [place] [address] [phone] Edmundo Guajardo MD 01/20/2024 Imaging Exam [facility] Otolaryngology [address] [place] [address] [phone] Edmundo Guajardo MD Chronic pansinusitis (Primary Dx) 01/13/2024 10:15 AM CDT Office Visit [facility] Otolaryngology [address] [place] [address] [phone] Edmundo Guajardo MD Chronic cough (Primary Dx); Chronic pansinusitis 01/01/2024 Telephone [facility] Neurology [address] [facility] [address] [place] [address] [phone] Preston Ventura Si, MD PCP questions for from Last 3 Months Allergies No known active allergies Medications rOPINIRole [...] mouth nightly 90 capsule 3 11/06/19 24 08/09/2 025 Active sildenafiL (VIAGRA) 100 mg tablet [...] predniSONE (DELTASONE) 10 mg tablet 10/06/19 24 11/25/2 024 Discontinu ed(Stop Taking at Discharge) nystatin 100,000 unit/mL suspensionIndicat ions:Thrush Swish and swallow 5cc QID x 10 days. 200 mL 02/08/20 24 Discontinu ed(Reorder ) predniSONE (DELTASONE) 10 mg tablet Take 2 tablets (20 mg) by mouth 2 (two) times a day for 4 days 16 tablet 02/22/20 24 ciprofloxacin (Cipro) 500 mg tablet Take 1 tablet (500 mg total) by mouth 2 (two) times a day for 14 days 28 tablet 02/22/20 24 sulfamethoxazole- trimethoprim (BACTRIM DS) 800-160 mg per tabletIndications :Chronic pansinusitis Take 1 tablet (160 mg of trimethoprim total) by mouth 2 (two) times a day for 14 days 28 tablet 03/04/20 24 Active Problems Problem Noted Date Diagnosed Date Chronic maxillary sinusitis 02/22/2024 Thrush 12/02/2023 Assessment & Plan (03/05/2024 1:46 PM LICENSE INSPECTOR): At his request we are going to [...] 09/16/2023 Assessment & Plan (03/05/2024 1:45 PM LICENSE INSPECTOR): His sinuses look much better. The nose [...] going through some further evaluation with a x ray physician which I think is appropriate. Could be an asthma type cough. We will talk further after the CT scan is complete. Assessment & Plan (12/02/2023 8:08 PM CDT): This seems to be worse. Has eap specialist is addressing this and he has [...] does have a follow up with his x ray physician. I talked with him about trying nortriptyline [...] pretty easily if he stops taking his xpok-nsa-ayldyzz Nexium which he takes once a day. 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 Horn has multilevel lumbar stenosis with [...] (04/24/2021): Added automatically from request for surgery [id number] Assessment & Plan (07/17/2021 4:18 PM CDT): [...] Preop MRI CD returned to the patient. Social History Tobacco Use Types Packs/Day Years [...] How often do you attend chur or mosque services? 1 to 4 times per year [...] on file Legal Sex Male 12:56 PM LICENSE INSPECTOR Gender Identity Male 05/23/2021 12:08 PM LICENSE INSPECTOR Sexual Orientation Straight 05/23/2021 12 :08 PM LICENSE INSPECTOR Last Filed Vital Signs Vital Sign Reading Time Taken Comments Blood Pressure 126/84 02/22/2024 11:30 AM LICENSE INSPECTOR Pulse 61 02/22/2024 11:30 AM LICENSE INSPECTOR Temperature 36.1 ??C (97 ??F) 02/22/2024 10:05 AM LICENSE INSPECTOR Respiratory Rate 18 03/04/2024 2:49 PM LICENSE INSPECTOR Oxygen Saturation 95% 02/22/2024 11:30 AM LICENSE INSPECTOR Inhaled Oxygen Concentration - - Weight 83.9 kg (185 lb) 03/04/2024 2:49 PM LICENSE INSPECTOR Height 182.9 cm (6') 03/04/2024 2:49 PM LICENSE INSPECTOR Body Mass Index 25.09 03/04/2024 2:49 PM LICENSE INSPECTOR Plan of Treatment Not on file Medical Devices Implanted Type Area [employer] Engineer Sergeant Device Identifier Shelf Expiration Date Model / Serial / Lot [employer] Allograft Bone Putty 2.5cc - - [id number] Implanted:Qty: 1 on 10/11/2021 by Jayy Granger MD at [facility] N/A: Spine Lumbar [employer] [id number] 04/29/2024C1192 [employer] Inqu Paste Mix Plus Manager Of Program 10cc Bone Graft Hyaluronic Acid Poly [id number] - [id number] Implanted:Qty: 1 on 10/11/2021 by Jayy Granger MD at [facility] N/A: Spine Lumbar [employer] [id number] / / Core Link Foundation L31 Mm X W10 Mm X H11 Mm 3d 12 D Curve Cage Spinal [id number] - [id number] Implanted:Qty: 1 on 10/11/2021 by Jayy Granger MD at [facility] N/A: Spine Lumbar Core Link [id number] 04/12/2023 [id number] / / [id number] Core Link South Heart 6.5mm 45mm Spine Pedicle Screw Bone 5500 Series [id number] - [id number] Implanted:Qty: 4 on 10/11/2021 by Jayy Granger MD at [facility] N/A: Spine Lumbar Core Link [id number] / / Core Link South Heart Screw Set 5500 Series 79600-32 - [id number] Implanted:Qty: 4 on 10/11/2021 by Jayy Granger MD at [facility] N/A: Spine Lumbar Core Link [id number] / / Core Link South Heart 5.5mm 40mm Line Prebent Nabor Spinal Nonsterile 5500 Series [id number] - [id number] Implanted:Qty: 2 on 10/11/2021 by Jayy Granger MD at [facility] N/A: Spine Lumbar Core Link [id number] / / Procedures Procedure Name Priority Date/Time Associated Diagnosis Comments SURGICAL PATHOLOGY Routine 02/22/2024 8: 57 AM LICENSE INSPECTOR Chronic pansinusitis AEROBIC AND ANAEROBIC CULTURE AND GRAM STAIN Routine 02/22/2024 7:54 AM LICENSE INSPECTOR WA AN PROCEDURE PLACEHOLDER Routine 02/22/2024 7:47 AM LICENSE INSPECTOR WA AN ELECTIVE ENDOTRACHEAL AIRWAY Routine 02/22/2024 7:47 AM LICENSE INSPECTOR ENDOSCOPIC SINUS SURGERY WITH NAVIGATION 02/22/2024 7:28 AM LICENSE INSPECTOR Chronic pansinusitis Special Needs Image guidance system POC BLOOD GAS AND CHEMISTRIES, VENOUS Routine 02/22/2024 6:57 AM LICENSE INSPECTOR ECG 12-LEAD Routine 02/09/2024 9:57 AM LICENSE INSPECTOR Pre-op testing NEURO CT OUTSIDE REFERENCE Routine 01/20/2024 11:15 AM CDT from Last 3 Months Results * Surgical pathology (02/22/2024 8:57 AM LICENSE INSPECTOR) Tissue (Sinus contents) 02/22/2024 8:57 AM LICENSE INSPECTOR Narrative PATHOLOGY [facility] - 02/24/2024 2:[address] [facility] Department of Pathology [address] [place] [address] ?? Note to Patients: ??This report may [...] the details. Final Report Patient Name: LIZETTE HORNSima : ??1950 (Age: 74) Gender: ??M Address: ??[address] [place] [address] ??[address] [facility] #: [id number] Service: Surgery Location: Patient Type: [facility] OUTPATIENT ? Taken: 02/22/2024 Received: 02/22/2024 Accessioned: [...] 0. ?? jjmhb/02/23/2024 10:06 MED [place], [place] ([facility]) Microscopic slide review and interpretation for this case was performed at [facility], Department of Surgical Pathology, [address] [facility], [place] [id number], ??[facility] [place], [place] ??[address] ?? CLIA # [id number] us Edmundo Guajardo MD LAB PATHOLOGY ORDERABLES Fi nal Result PATHOLOGY [facility] * (ABNORMAL) Aerobic and anaerobic culture and gram stain Wound Sinus, maxillary, left (02/22/2024 7:54 AM LICENSE INSPECTOR) Direct Specimen Exam Stain: Moderate polymorphonuclear leukocytes seen. Moderate Gram Positive Cocci Comment:Testing performed by : [facility], [address] [place]., [address] Report Final Report: Moderate Staphylococcus aureus Methicillin susceptible (MSSA) by penicillin binding protein 2a (PBP2a) testing. Few Pseudomonas aeruginosa (mucoid morphotype) Rare Mixed microorganisms. (.) MILLI JORDAN Comment:Testing performed by : [facility], [address] [place]., [address] Organism STAPHYLOCOCCUS AUREUS MILLI Organism PSEUDOMONAS AERUGINOSA (MUCOID MORPHOTYPE) MILLI Organism MIXED MICROORGANISMS. MILLI JORDAN Wound (Sinus, maxillary, left) 02/22/2024 7:54 AM LICENSE INSPECTOR 02/22/2024 9:38 AM LICENSE INSPECTOR Narrative MILLI - 02/26/2024 2:25 PM LICENSE INSPECTOR Left maxillary sinus for culture Specimen received in Eswab. Testing performed by [facility] Microbiology Laboratory ([phone]) Specimens submitted from normally sterile body sites [...] (mucoid morphotype) Tobramycin INTERPRETATION Susceptible us Edmundo Gujaardo MD LAB MICROBIOLOGY - GENERAL ORDERABLES Final Result MILLI JORDAN [address] [facility] Department of Laboratories [place] [id number] * WA AN ELECTIVE ENDOTRACHEAL AIRWAY, WA AN PROCEDURE PLACEHOLDER (02/22/2024 7:47 AM LICENSE INSPECTOR) Narrative Mirlande Hernandez CRNA - 02/22/2024 7:47 AM LICENSE INSPECTOR Mirlande Hernandez CRNA ? 02/22/2024 ??7:48 AM Airway Patient location: OR Urgency: elective Indications for airway management: anesthesia Difficult airway: no Staff: Supervising provider: Jitendra Can MD Placed by: GUM MACHINE FILLER: Mirlande Hernandez CRNA Emergent airway documentation: Risks [...] and Chemistries, Venous - (02/22/2024 6:57 AM LICENSE INSPECTOR) pH,bryanna POC 7.40 7.32 - 7.43 pCO2, bryanna POC 45 40 - 50 mmHg MILLI pO2,bryanna POC 29 mmHg MILLI Comment: Interpretive Data No reference range established. Current interpretive data was last revised 2019. HCO3, bryanna (Calc) POC 28 20 - 30 mmol/L MILLI Base excess, bryanna POC 3 mmol/L MILLI Comment: Interpretive Data No reference range established. Current interpretive data was last revised 2019. Hemoglobin, bryanna POC 12.9(L) 13.0 - 17.5 g/dL [facility] Hematocrit, bryanna POC 38.0(L) 38.9 - 50.3 % [facility] Sodium, bryanna POC 128(L) 135 - 145 mmol/L [facility] Potassium, bryanna POC 4.4 3.3 - 4.9 mmol/L [facility] Comment: Interpretive Data This method is not able to assess for hemolysis, which may falsely increase potassium concentrations. If further testing is needed to evaluate this result, consider in-laboratory plasma potassium. Current Interpretive Data was last revised on 2021. Glucose, bryanna POC 97 70 - 199 mg/dL [facility] Ionized Calcium, bryanna POC 4.90 4.50 - 5.10 mg/dL [facility] Blood 02/22/2024 6:57 AM LICENSE INSPECTOR 02/22/2024 6:57 AM LICENSE INSPECTOR Edmundo Guajardo MD LAB POCT ORDERABLES - DEVIC E Final Result Performing Organization Address City/State/[facility] Co de Phone Number MILLI [address] [facility] Department [place] [address] * ECG 12 lead (02/09/2024 9:57 AM LICENSE INSPECTOR) Ventricular Rate EKG/Min 74 BPM [facility] Atrial Rate 74 BPM [facility] WA-Interval (MSEC) 186 ms [facility] QRS-Interval (MSEC) 142 ms [facility] QT-Interval (MSEC) 380 ms [facility] QTc 421 ms [facility] P Capitola 19 degrees [facility] R [place] -34 degrees [facility] T Capitola 6 degrees [facility] Diagnosis Normal sinus rhythm Left axis deviation Right bundle branch block No previous ECGs available Confirmed by SULTAN MAJOR M.D. ([id number]) on 02/09/2024 2:43:31 PM [facility] 02/09/2024 9:57 AM LICENSE INSPECTOR 02/09/2024 2:43 PM LICENSE INSPECTOR Clif Leung MD ECG ORDERABLES Final Result Performing Organization Address City/[facility]/ZIP Co de Phone Number [facility] * Neuro CT Outside Reference (01/20/2024 11:15 AM CDT) Narrative TRISTA_MHE - 02/04/2024 3:52 PM LICENSE INSPECTOR This order has been auto-finalized and does not contain a result. us Provider Transcribed Order IMG CT PROCEDURES Fin al Result Performing Organization Address City/[facility] Co de Phone Number ESTHER_PATTIE_MHB_MHE from Last 3 Months Insurance MEDICARE AETNA SENIOR SUPPLEMENT MEDICARE AETNA SENIOR SUPPLEMENT MEDICARE AET SENIOR SUPPLEMENT MEDICARE AETNA SENIOR SUPPLEMENT MEDICARE AETNA SENIOR SUPPLEMENT MEDICARE Advance Directives For more information, please contact: [phone] Documents on File Type Date Recorded Patient Adzing And Boring Machine Feeder Expl anation Power of Credit Union Manager 02/22/2024 5:42 AM * Full Code (Latest Code Status on File) Date Activated Date Inactivated Comments 10/28/2021 10:29 PM 11/06/2021 5:42 PM * Full Code Date Activated Date Inactivated Comments 10/11/2021 4:02 PM 10/12/2021 5:28 PM Care Teams Handy Man Relationship Specialty Start Date End Date Anil Gupta MD [address] [facility] [address] [place] [address] PCP - General Internal Medicine 04/19/21 Anil Gupta MD [address] [facility] [address] [place] [address] Internal Medicine 04/19/21 Adrien Yuong MD [address] [facility] [address] [place] [address] Consulting Physician Infectious Diseases 11/06/21 Milad Garcia MD [address] [place] [address] Consulting Physician Orthopedic Surgery 03/02/23 Doni Marino MD [address] [facility] [facility] [address] [place] [address] Referring Physician Pulmonary Disease 02/09/24 Edmundo Guajardo MD [address] [place] [address] Consulting Physician Otolaryngology 02/22/24
--- OUTSIDE RECORDS SUMMARY | 2024-03-19 07:27 | XMS_ITS | Encounter Summary ---
Author Organization [facility] Address [address] [place] [address] Care Team Providers Care Electric Razor Mechanic Name Role Phone Anil Gupta MD Primary Care Provider [phone] Anil Gupta MD Unavailable [phone] Adrien Young MD Unavailable [phone] Milad Garcia MD Unavailable [phone] Reason for Visit * MRI/CAT/PET Scan (Routine) - Closed Specialty Diagnoses / Procedures Referred By Contac t Referred To Contact Procedures Neuro CT Outside Reference Transcribed Order, Provider Referral ID Status Reason Start Date Expiration Date Visits Re quested Visits Authorized [id number] Closed 02/04/2024 03/05/2025 1 1 Encounter Details Date Type Department Care Team (Latest Contact Info) Description 01/20/2024 11:15 AM CDT - 01/20/2024 11:59 PM CDT Hospital Encounter [facility] [address] [place] [address] Discharge Disposition: Discharge to home or self [...] often do you attend [facility] or orthodox services? 1 to 4 times per year 10/29/2021 Do you belong to any clubs o r organizations such as christianity groups, unions, fraternal or athletic groups, or [...] on file Legal Sex Male 12:56 PM PUPIL PERSONNEL WORKER Gender Identity Male 05/23/2021 12:08 PM PUPIL PERSONNEL WORKER Sexual Orientation Straight 05/23/2021 12 :08 PM PUPIL PERSONNEL WORKER documented as of this encounter Medications at [...] 4 days 16 tablet 02/22/2024 02/26/20 24 predniSONE (DELTASONE) 10 mg tablet 10/06/2023 02/22/20 24 sodium chloride 0.9% 0.9 % irrigationIndicatio [...] 03/04/20 24 documented as of this encounter Discharge Disposition Disposition Code Departure Means Destination Discharge to home or self care documented in this encounter Plan of Treatment Not on file documented as of this encounter Procedures Procedure Name Priority Date/Time Associated Diagnosis Comments NEURO CT OUTSIDE REFERENCE Routine 01/20/2024 11:15 AM CDT documented in this encounter Results * Neuro CT Outside Reference (01/20/2024 11:15 AM CDT) Narrative ESTHER_PATTIE_MHB_MHE - 02/04/2024 3:52 PM PUPIL PERSONNEL WORKER This order has been auto-finalized and does not contain a result. us Provider Transcribed Order IMG CT PROCEDURES Fin al Result RAD_JASONIO_MHB_MHE documented in this encounter Visit Diagnoses Not on filedocumented in this encounter Care Teams Electric Razor Mechanic Relationship Specialty Start Date End Date Kopjas, Anil C., MD [address] [place] [address] PCP - General Internal Medicine 04/19/21 Anil Gupta MD [address] [place] [address] Internal Medicine 04/19/21 Adrien Young MD [address] [facility] [address] [place], [place] [id number] Consulting Physician Infectious Diseases 11/06/21 Milad Garcia MD [address] [facility] [address] [place] [address] Consulting Physician Orthopedic Surgery 03/02/23 documented as of this encounter
--- OUTSIDE RECORDS SUMMARY | 2024-03-19 07:27 | XMS_ITS | Encounter Summary ---
Author Organization [facility] Healthcare Address [address] [place] [address] Care Team Providers Care Graduate Engineer Name Role Phone Anil Gupta MD Primary Care Provider [phone] Anil Gupta MD Unavailable [phone] Adrien Young MD Unavailable [phone] Milad Garcia MD Unavailable Doni Marino MD Unavailable Edmundo Guajardo MD Unavailable [phone] Reason for Visit * Auth/Cert (Routine) Specialty Diagnoses / Procedures Referred By Enio granado Referred To Contact Diagnoses Chronic pansinusitis Chronic pansinusitis [J32.4] Procedures NV NASAL/SINUS NDSC W/PARTIAL ETHMOIDECTOMY NV NASAL/SINUS NDSC W/RMVL TISS FROM FRONTAL SINUS NV NSL/SINUS NDSC MAX ANTROST W/RMVL TISS MAX SINUS NV STRTCTC CPTR ASSTD PX EXTRADURAL CRANIAL IMAGE GUIDED BILATERAL ENDOSCOPIC ANTERIOR ETHMOIDECTOMY, BILATERAL FRONTAL SINUSOTOMY AND BILATERAL MAXILLARY ANTROSTOMY WITH TISSUE REMOVAL Referral ID Status Reason Start Date Expiration Date Visits Re quested Visits Authorized [id number] 1 1 Encounter Details Date Type Department Care Team (Late st Contact Info) Description 02/22/2024 7:30 AM OBSTETRICAL NURSE - 02/22/2024 9:00 AM OBSTETRICAL NURSE Surgery [facility] OR [address] [place] [address] Edmundo Guajardo MD [address] [place] [address] IMAGE GUIDED BILATERAL ENDOSCOPIC ANTERIOR ETHMOIDECTOMY, BILATERAL FRONTAL SINUSOTOMY AND BILATERAL MAXILLARY ANTROSTOMY WITH TISSUE REMOVAL Surgery Details Date/Time Status Location OR Service Patient Class Case Class Case Type Trauma Case? 02/22/2024 7:30 AM Posted [facility] OR 20 Otolaryngology Outpatient Elective Panel 1 Procedure LRB Anes Op Region Wound Class Comments IMAGE GUIDED BILATERAL ENDOSCOPIC ANTERIOR ETHMOIDECTOMY, BILATERAL FRONTAL SINUSOTOMY AND BILATERAL MAXILLARY ANTROSTOMY WITH TISSUE REMOVAL Bilateral General Face Class II - Clean Contaminated Surgeon Surgeon Role Service Panel Edmundo Guajardo MD Primary Otolaryngology 1 Special Needs Image guidance system documented in this encounter Social History Tobacco [...] any clubs o r organizations such as judaism groups, unions, fraternal or athletic groups, or [...] on file Legal Sex Male 12:56 PM OBSTETRICAL NURSE Gender Identity Male 05/23/2021 12:08 PM OBSTETRICAL NURSE Sexual Orientation Straight 05/23/2021 12 :08 PM OBSTETRICAL NURSE documented as of this encounter Last Filed Vital Signs Vital Sign Reading Time Taken Comments Blood Pressure 116/83 02/22/2024 6:49 AM OBSTETRICAL NURSE Pulse 64 02/22/2024 6:49 AM OBSTETRICAL NURSE Temperature 36.2 ??C (97.2 ??F) 02/22/2024 6:49 AM CS T Respiratory Rate 18 02/22/2024 6:49 AM OBSTETRICAL NURSE Oxygen Saturation 99% 02/22/2024 6:49 AM OBSTETRICAL NURSE Inhaled Oxygen Concentration - - Weight 83.4 kg (183 lb 12.8 oz) 02/22/2024 6:40 AM OBSTETRICAL NURSE Height - - Body Mass Index 24.93 02/09/2024 10:01 AM OBSTETRICAL NURSE documented in this encounter Discharge Instructions * Attachments The following attachments cannot be sent through Care Everywhere. * General Anesthesia (Discharge Care) (Cypriot) * Functional Endoscopic Sinus Surgery for Rhinosinusitis (Discharge Care) (Cypriot) documented in this encounter Medications at Time [...] day for 14 days 28 tablet 02/22/2024 predniSONE (DELTASONE) 10 mg tablet Take 2 tablets (20 mg) by mouth 2 (two) times a day for 4 days 16 tablet 02/22/2024 documented in this encounter Discharge Disposition Disposition Code Departure Means Destination Comment s Discharge to home or self care documented in this encounter H&P Notes * Edmundo Guajardo MD - 02/22/2024 6:16 AM CST No changes ETRICAL NURSE Source Note - Edmundo Guajardo MD - 02/21/2024 3:48 PM OBSTETRICAL NURSE History and Physical Subjective Patient is a [...] respiratory infection comes and goes - on terminal gauger antibiotics to prevent further mucous build up [...] undergoing bilateral maxillary antrostomies with tissue removal. ETRICAL NURSE * Edmundo Guajardo MD - 02/21/2024 3:48 [...] respiratory infection comes and goes - on correction antibiotics to prevent further mucous build up [...] undergoing bilateral maxillary antrostomies with tissue removal. ETRICAL NURSE documented in this encounter Miscellaneous Notes * Op Note - Edmundo Guajardo MD - 02/22/2024 7:30 AM CST DATE OF SURGERY : 02/22/2024 PREOPERATIVE DIAGNOSIS: Chronic bilateral pansinusitis POSTOPERATIVE DIAGNOSIS: Same PROCEDURE: IMAGE GUIDED BILATERAL ENDOSCOPIC ANTERIOR ETHMOIDECTOMY, BILATERAL FRONTAL SINUSOTOMY AND BILATERAL MAXILLARY ANTROSTOMY WITH TISSUE REMOVAL (B) SURGEON: Edmundo Guajardo MD CUSTOMER SUPPORT ADVISOR: N/a ANESTHESIA: GENERAL, Anesthesiologist: Jitendra Can MD SCHOOL PSYCHOLOGIST: Mirlande Hernandez CRNA INTRAOPERATIVE FINDINGS: They were [...] by name [Lizette Horn] and ID tag [[id number]; :1950]. Anesthesia was induced and prior toincision, [...] created an inferior meatus antrostomy using a [place] elevator as well as straightTru-Cut forceps and [...] Guajardo MD Date: 02/22/2024 Time: 9:37 AM ETRICAL NURSE * Perioperative Nursing Note - Milad Hannah RN - 02/09/2024 3:05 PM OBSTETRICAL NURSE The following labs from 02/09/2024 Pretesting were reviewed for 02/22/2024 surgery: [] CBC [] CMP [] BMP [] A1C [] PT/INR [] PTT [] MRSA Nasal Swab [] Type and Screen [] Urine Nicotine Screening [] Urine Microscopic [x] EKG [] CXR [] COVID Ok for surgery per Anesthesia guidelines. No further Interventions at this time. ETRICAL NURSE * Pre-Procedure Instructions - Clayton Marie RN - 02/09/2024 9:50 AM OBSTETRICAL NURSE Images from the original note were not included. [place] [id number] Surgery Reminder Checklist: Please arrive to [facility] for scheduled surgery on [...] Dairy, Milk Products, Creamer, Red Gatorade or Pinal Juice) Nothing by mouth the 4 hours prior to your procedure, NOT EVEN WATER. [place] your teeth morning of procedure. Use mouth [...] please call Admission and Testing Center at [phone]. Morning of surgery question/concerns, please call Outpatient Surgery at [phone]. Thank You for choosing [facility]'s Surgery department! Thank you Morgan RN ETRICAL NURSE documented in this encounter Plan of Treatment Not on file documented as of this encounter Procedures Procedure Name Priority Date/Time Associated Diagnosis Comments SURGICAL PATHOLOGY Routine 02/22/2024 8: 57 AM OBSTETRICAL NURSE Chronic pansinusitis AEROBIC AND ANAEROBIC CULTURE AND GRAM STAIN Routine 02/22/2024 7:54 AM OBSTETRICAL NURSE ENDOSCOPIC SINUS SURGERY WITH NAVIGATION 02/22/2024 7:28 AM OBSTETRICAL NURSE Chronic pansinusitis Special Needs Image guidance system POC BLOOD GAS AND CHEMISTRIES, VENOUS Routine 02/22/2024 6:57 AM OBSTETRICAL NURSE documented in this encounter Results * Surgical pathology (02/22/2024 8:57 AM OBSTETRICAL NURSE) Tissue (Sinus contents) 02/22/2024 8:57 AM OBSTETRICAL NURSE Narrative PATHOLOGY [facility] - 02/24/2024 2:53 PM OBSTETRICAL NURSE [facility] Department of Pathology [address] [place] [address] ?? Note to Patients: ??This report may [...] : ??1950 (Age: 74) Gender: ??M Address: ??[address] [place] [address] ??[address] [facility] #: [id number] Service: Surgery Location: Patient Type: [facility] ? Taken: 02/22/2024 Received: 02/22/2024 Accessioned: 02/22/2024 Reported: 02/24/2024 Physician(s): MD Anil Fields M.D. Diagnosis: A. ??Paranasal sinus, bilateral contents, excision ? - Fragments of respiratory mucosa with mild chronic inflammation and edema ? - Mycetoma (fungal ball) ?? Pike Mansour, MD Report Electronically Reviewed and Signed Out [...] Jar 0. ?? jjmhb/02/23/2024 10:06 MED Roy[facility]ANCIE [facility] Microscopic slide review and interpretation for this case was performed at [facility], Department of Surgical Pathology, [address] [facility], [place] [id number], ??[facility], [place] ??[address] ?? CLIA # [id number] Edmundo Guajardo MD LAB PATHOLOGY ORDERABLES Fi nal Result PATHOLOGY [facility] * (ABNORMAL) Aerobic and anaerobic culture and gram stain Wound Sinus, maxillary, left (02/22/2024 7:54 AM OBSTETRICAL NURSE) Direct Specimen Exam Stain: Moderate polymorphonuclear leukocytes seen. Moderate Gram Positive Cocci Comment:Testing performed by : [facility], [address] [place] [address], [place] [address] Report Final Report: Moderate Staphylococcus aureus Methicillin susceptible (MSSA) by penicillin binding protein 2a (PBP2a) testing. Few Pseudomonas aeruginosa (mucoid morphotype) Rare Mixed microorganisms. (.) MILLI JORDAN Comment:Testing performed by : [facility], [address] [place] [address], [place] [address] Organism STAPHYLOCOCCUS AUREUS MILLI JRODAN Organism PSEUDOMONAS AERUGINOSA (MUCOID MORPHOTYPE) [facility] Organism MIXED MICROORGANISMS. [facility] Wound (Sinus, maxillary, left) 02/22/2024 7:54 AM OBSTETRICAL NURSE 02/22/2024 9:38 AM OBSTETRICAL NURSE Narrative [facility] - 02/26/2024 2:25 PM OBSTETRICAL NURSE Left maxillary sinus for culture [facility] performed by [facility] Microbiology Laboratory ([phone]) Specimens submitted from normally sterile body sites [...] MICROBIOLOGY - GENERAL ORDERABLES Final Result MILLI [address] [facility] Department [place] [address] * (ABNORMAL) POC Blood Gas and Chemistries, Venous - (02/22/2024 6:57 AM OBSTETRICAL NURSE) [facility] pH,bryanan POC 7.40 7.32 - 7.43 pCO2, bryanna POC 45 40 - 50 mmHg [facility] pO2,bryanna POC 29 mmHg [facility] Comment: Interpretive Data No reference range established. Current interpretive data was last revised 2019. HCO3, bryanna (Calc) POC 28 20 - 30 mmol/L [facility] Base excess, bryanna POC 3 mmol/L [facility] Comment: Interpretive Data No reference range established. Current interpretive data was last revised 2019. Hemoglobin, bryanna POC 12.9(L) 13.0 - 17.5 g/dL [facility] Hematocrit, bryanna POC 38.0(L) 38.9 - 50.3 % [facility] Sodium, bryanna POC 128(L) 135 - 145 mmol/L [facility] Potassium, bryanna POC 4.4 3.3 - 4.9 mmol/L [facility] Comment: Interpretive Data This method is not able to assess for hemolysis, which may falsely increase potassium concentrations. If further testing is needed to evaluate this result, consider in-laboratory plasma potassium. Current Interpretive Data was last revised on 2021. Glucose, bryanna POC 97 70 - 199 mg/dL [facility] Ionized Calcium, bryanna POC 4.90 4.50 - 5.10 mg/dL [facility] Blood 02/22/2024 6:57 AM OBSTETRICAL NURSE 02/22/2024 6:57 AM OBSTETRICAL NURSE Edmundo Guajardo MD LAB POCT ORDERABLES - DEVIC E Final Result Performing Organization Address City/State/[facility] Co de Phone Number MILLI [address] [facility] Department [place] [address] documented in this encounter Visit Diagnoses Diagnosis Chronic pansinusitis- Primary Other chronic sinusitis Chronic pansinusitis Other chronic sinusitis Chronic maxillary sinusitis [J32.0] Chronic maxillary sinusitis Chronic pansinusitis Other chronic sinusitis documented in this encounter Admitting Diagnoses Diagnosis Chronic pansinusitis Other chronic sinusitis documented in this encounter Administered Medications Inactive Administered Medications - up to 3 most recent administrations Medication Order MAR Action Action Date Dose Rate Site acetaminophen (TYLENOL) tablet 975 mg 975 mg (rounded from 1,000 mg), oral, Once, On 02/22/24 at 0715, For 1 dose, Pre-Op, Indications: Pre-Emptive AnalgesiaIndications:Pre-E mptive Analgesia Given 02/22/2024 6:56 AM OBSTETRICAL NURSE 975 mg dexAMETHasone (DECADRON) 4 mg/mL injection 8 mg 8 mg, intravenous, Administer over 2 Minutes, Once, On Thu02/22/24 at 0715, For 1 dose, Pre-Op, Administer 1 hour before surgery. Given 02/22/2024 6:56 AM OBSTETRICAL NURSE 8 mg famotidine (PEPCID) tablet 20 mg 20 mg, oral, Once, On Thu02/22/24 at 0715, For 1 dose, Pre-Op, Indications: gastroesophageal reflux diseaseIndications:gastroe sophageal reflux disease Given 02/22/2024 6:56 AM OBSTETRICAL NURSE 20 mg lidocaine (XYLOCAINE) 10 mg/mL (1 %) injection 2-10 mg 2-10 mg (0.2-1 mL), other, Once as needed, pain with IV placement, Starting on Thu02/22/24 at 0636, For 1 dose, Pre-Op, Administer volume needed to infiltrate IV site. lidocaine-EPINEPHrine (XYLOCAINE with EPI) 1 %-1:100,000 injection As needed, Starting on Thu02/22/24 at 0743, Intra-Op, Indications: Administration of Local AnesthesiaIndications:Admi nistration of Local Anesthesia Given 02/22/2024 7:43 AM OBSTETRICAL NURSE 4 mL Surgical Site oxymetazoline (AFRIN) 0.05 % nasal spray 2 spray 2 spray, each nostril, Once, On Thu02/22/24 at 0715, For 1 dose, Pre-Op, Indications: in pre-op areaIndications:in pre-op area Given 02/22/2024 6:56 AM OBSTETRICAL NURSE 2 sprays oxymetazoline (AFRIN) 0.05 % nasal spray As needed, Starting on Thu02/22/24 at 0745, Intra-Op Given 02/22/2024 7:45 AM OBSTETRICAL NURSE 1 Application Surgical Site sodium chloride 0.9% infusion 50 mL/hr, intravenous, Continuous, Starting on Thu02/22/24 at 0715, Pre-Op Restarted 02/22/2024 7:29 AM OBSTETRICAL NURSE New Bag 02/22/2024 6:55 AM OBSTETRICAL NURSE 50 mL/hr 50 mL/hr sodium chloride 0.9% irrigation As needed, Starting on Thu02/22/24 at 0745, Intra-Op Given 02/22/2024 7:45 AM OBSTETRICAL NURSE 50 mL Surgical Site documented in this encounter Discontinued Medications Medication [...] Recently Administered Medications Times are shown in OBSTETRICAL NURSE. Scheduled Medication Order 02/20/2024 02/21/2024 02/22/2024 acetaminophen [...] (1 %) injection 2-10 mg 1 02/22/2024 meperidine (DEMEROL) preserv ative free injection 25 mg 1 02/22/2024 naloxone (NARCAN) 0.4 mg/mL injection 0.04-0.4 mg 1 02/22/2024 ondansetron (ZOFRAN) injection 4 mg 1 02/21 Diet Count Last Ordered Date First Orde red Date ADULT DISCHARGE DIET 1 02/22/2024 Nursing Count Last Ordered Date First Orde red Date DISCHARGE ACTIVITY 3 02/22/2024 FOLLOW UP WITH ESTABLISHED PROVIDER 2 02/21 NURSING COMMUNICATION 8 02/22/2024 WOUND CARE 1 02/22/2024 Discharge Count Last Ordered Date First Orde red Date DISCHARGE PATIENT 1 02/22/2024 documented in this encounter Care Teams Graduate Engineer Relationship Specialty Start Date End Date Anil Gupta MD [address] [place] [address] PCP - General Internal Medicine 04/19/21 Anil Gupta MD [address] [place] [address] Internal Medicine 04/19/21 Adrien Young MD [address] [place] [address] Consulting Physician Infectious Diseases 11/06/21 Milad Garcia MD [address] [place] [address] Consulting Physician Orthopedic Surgery 03/02/23 Doni Marino MD [address] [place] [address] Referring Physician Pulmonary Disease 02/09/24 Edmundo Guajardo MD [address] [place] [address] Consulting Physician Otolaryngology 02/22/24 documented as of this encounter
--- OUTSIDE RECORDS SUMMARY | 2024-03-19 07:27 | XMS_ITS | Encounter Summary ---
Author Organization [facility] Address [address] [place] [address] Phone Care Team Providers Care Adhesion Tester Name Role Phone Anil Gupta MD Primary Care Provider [phone] Anil Gupta MD Unavailable [phone] Adrien Young MD Unavailable [phone] Milad Garcia MD Unavailable [phone] Encounter Details Date Type Department Care Team (Late st Contact Info) Description 01/20/2024 Imaging Exam [facility] Otolaryngology [address] [place] [address] Edmundo Guajardo MD [address] [place] [id number] Chronic pansinusitis (Primary Dx) Social History Tobacco Use Types [...] week 10/29/2021 How often do you attend [facility] or bahai services? 1 to 4 times per year 10/29/2021 Do you belong to any clubs o r organizations such as adventism groups, unions, fraternal or athletic groups, or [...] on file Legal Sex Male 12:56 PM MULTIMEDIA TEACHER Gender Identity Male 05/23/2021 12:08 PM MULTIMEDIA TEACHER Sexual Orientation Straight 05/23/2021 12 :08 PM MULTIMEDIA TEACHER documented as of this encounter Progress Notes * Edmundo Guajardo MD - 01/20/2024 12:24 PM CDT Douglas Horn 1950 73 y.o. male [id number] Exam Date: 01/20/2024 Date Read: 01/20/2024 Date Dicated: 01/20/2024 Exam Type: CT sinus without contrast EXAM: CT sinus without contrast image guidance protocol , 3D image rendering REASON FOR EXAM: Douglas Horn is a 73 y.o. male with complaints of nasal obstruction and chronicsinusitis. Comparsion Study: None Technique: Per CT Policy Low energy acquisition with pulsed beam and collimated filed of view. Quality of Exam: Satisfactory Findings: Bone detail only. Nasal septum is mildly deviated to the right and the inferior turbinates are unremarkable. The right frontal sinus is completely opacified and there is mucosal thickening and blockage at the frontal recess bilaterally. The left frontal sinuses otherwise unremarkable. There is evidence of a prior bilateral ethmoidectomy. There are some remaining anterior and posterior ethmoids septations bilaterally with some disease involving the remaining anterior ethmoid septationson the right. Both maxillary sinuses have patent ostia but on both sides there is severe mucosal thickening and probable air-fluid levels. There appeared to be inspissated secretions in both maxillary sinuses. The sphenoid sinuses are unremarkable. IMPRESSION: There is mild deviation of the nasal septum to the right. Severe bilateral pansinusitis with evidence of prior sinus surgery. This is described above. Edmundo Guajardo MD 01/20/2024 documented in this encounter Plan of Treatment Not on file documented as of this encounter Visit Diagnoses Diagnosis Chronic pansinusitis- Primary Other chronic sinusitis documented in this encounter Care Teams Adhesion Tester Relationship Specialty Start Date End Date Anil Gupta MD [address] [place] [address] PCP - General Internal Medicine 04/19/21 Anil Gupta MD [address] [place] [address] Internal Medicine 04/19/21 Adrien Young MD [address] [facility] [address] [place] [address] Consulting Physician Infectious Diseases 11/06/21 Milad Garcia MD [address] [place] [address] Consulting Physician Orthopedic Surgery 03/02/23 documented as of this encounter
--- OUTSIDE RECORDS SUMMARY | 2024-03-19 07:28 | XMS_ITS | Encounter Summary ---
Author Organization [facility] Address [address] [place] [address] Care Team Providers Care Die Assembler Name Role Phone Anil Gupta MD Primary Care Provider [phone] Anil Gupta MD Unavailable [phone] Adrien Young MD Unavailable [phone] Reason for Visit * Reason Onset Date Comments increase pain 09/01/2022 Encounter Details Date Type Department Care Team (Late st Contact Info) Description 09/01/2022 Telephone [facility] [address] [facility] [address] [place] [address] Keisha Calhoun, ZEYNEP increase pain Social History Tobacco Use Types Packs/Day Years [...] any clubs o r organizations such as episcopalian groups, unions, fraternal or athletic groups, or [...] on file Legal Sex Male 12:56 PM SENIOR MECHANICAL DEVELOPMENT ENGINEER Gender Identity Male 05/23/2021 12:08 PM SENIOR MECHANICAL DEVELOPMENT ENGINEER Sexual Orientation Straight 05/23/2021 12 :08 PM SENIOR MECHANICAL DEVELOPMENT ENGINEER documented as of this encounter Miscellaneous Notes * Telephone Encounter - Keisha Calhoun RN - 09/01/2022 11:02 AM CDT Patient calls stating that he is having worsening pain in back around incision site- more on right side(stabbing pain) worse with bending, would like to come in and see Dr. Garcia and get an xray. Patient coming in to see Dr. Garcia on ThuSeptember 10 at 8:30 documented in this encounter Plan of Treatment Not on file documented as of this encounter Visit Diagnoses Not on filedocumented in this encounter Care Teams Die Assembler Relationship Specialty Start Date End Date Kopjas, Anil C., MD [address] [place] [address] PCP - General Internal Medicine 04/19/21 Anil Gupta MD [address] [place] [address] Internal Medicine 04/19/21 Adrien Young MD [address] [facility] [address] [place] [address] Consulting Physician Infectious Diseases 11/06/21 documented as of this encounter
--- OUTSIDE RECORDS SUMMARY | 2024-03-19 07:28 | XMS_ITS | Encounter Summary ---
Author Organization [facility] Address [address] [place] [address] Care Team Providers Care Tax Adjuster Name Role Phone Anil Gupta MD Primary Care Provider [phone] Anil Gupta MD Unavailable [phone] Adrien Young MD Unavailable [phone] Milad Garcia MD Unavailable Encounter Details Date Type Department Care Team (Late st Contact Info) Description 03/09/2023 Orders Only [facility] Neurology [address] [facility] [address] [place] [address] Campbell Araya MD [address] [place] [address] Social History Tobacco Use Types Packs/Day [...] How often do you attend chur or hoahaoism services? 1 to 4 times per year 10/29/2021 Do you belong to any clubs o r organizations such as yazdanism groups, unions, fraternal or athletic groups, or [...] when you are drinking? 1 or 2 2 Q3: How often do you have [...] on file Legal Sex Male 12:56 PM DOCUMENT CONTROL CLERK Gender Identity Male 05/23/2021 12:08 PM DOCUMENT CONTROL CLERK Sexual Orientation Straight 05/23/2021 12 :08 PM DOCUMENT CONTROL CLERK documented as of this encounter Ordered Prescriptions Prescription Sig Dispense Quantity Refills Last Filled Start Date End Date pregabalin (LYRICA) 150 mg capsule Take 1 capsule (150 mg total) by mouth 2 (two) times a day 60 capsule 5 03/09/2023 4 documented in this encounter Plan of Treatment Not on file documented as of this encounter Visit Diagnoses Not on filedocumented in this encounter Discontinued Medications Medication Sig Discontinue Reason Start Date End Da te Lyrica 150 mg capsule Take 1 capsule (150 mg total) by mouth 3 (three) times a day 02/12/2023 03/09/2023 documented as of this encounter Care Teams Tax Adjuster Relationship Specialty Start Date End Date Anil Gupta MD [address] [place] [address] PCP - General Internal Medicine 04/19/21 Anil Gupta MD [address] [place] [address] Internal Medicine 04/19/21 Adrien Young MD [address] [facility] [address] [place], [place] [id number] Consulting Physician Infectious Diseases 11/06/21 Milad Garcia MD [address] [facility] [address] [place] [address] Consulting Physician Orthopedic Surgery 03/02/23 documented as of this encounter
--- OUTSIDE RECORDS SUMMARY | 2024-03-19 07:28 | XMS_ITS | Encounter Summary ---
Author Organization [facility] Address [address] [address] Care Team Providers Care Raw Juice Weigher Name Role Phone Anil Gupta MD Primary Care Provider [phone] Anil Gupta MD Unavailable [phone] Adrien Young MD Unavailable [phone] Reason for Visit * Diagnostic Imaging (Routine) - Closed Specialty Diagnoses / Procedures Referred By Enio granado Referred To Contact Diagnoses Status post lumbar spinal fusion Procedures XR Spine Lumbar Ap Lat Flex Ext min 4 Views Milad Garcia MD Phone: tel: fax: [facility] Referral ID Status Reason Start Date Expiration Date Visits Re quested Visits Authorized [id number] Closed 09/16/2022 10/16/2023 1 1 Encounter Details Date Type Department Care Team (Late st Contact Info) Description 09/16/2022 10:25 AM CDT Ancillary Procedure Advanced Spine [place] [address] [address] Social History Tobacco Use Types Packs/Day Years [...] How often do you attend chur or latter day services? 1 to 4 times per year [...] on file Legal Sex Male 12:56 PM PARTS COORDINATOR Gender Identity Male 05/23/2021 12:08 PM PARTS COORDINATOR Sexual Orientation Straight 05/23/2021 12 :08 PM PARTS COORDINATOR documented as of this encounter Plan of Treatment Not on file documented as of this encounter Procedures Procedure Name Priority Date/Time Associated Diagnosis Comments XR LUMBAR SPINE AP LAT FLEX EX Schedule Routine, Read Routine (OP Routine) 09/16/2022 10:29 AM CDT Status post lumbar spinal fusion documented in this encounter Results * XR Spine Lumbar Ap Lat Flex Ext min 4 Views (09/16/2022 10:29 AM CDT) Anatomical Region Laterality Modality L-spine N/A Digital Radiogra phy Narrative 09/16/2022 11:26 AM CDT AP, lateral, flexion, extension views of lumbar spine were obtained in clinic today and personally reviewed by me. ??These radiographs demonstrate a mild coronal deformity developing cranial to his L5-S1 fusion. ?? Instrumentation in good position at L5-S1. ??There is facet arthropathy right greater than left in the lumbar spine which is seen very well on the AP radiograph at L4-5 for instance. ??No evidence of spondylolisthesis at L4-5 above his previous fusion. ??He does have exaggerated lumbar lordosis and curvature of his spine. ??He does appear to be fused at L5-S1 now. us Milad Garcia MD IMG XR PROCEDURES Final Result documented in this encounter Visit Diagnoses Not on filedocumented in this encounter Care Teams Raw Juice Weigher Relationship Specialty Start Date End Date Anil Gupta MD [address] [place] [address] PCP - General Internal Medicine 04/19/21 Anil Gupta MD [address] [place] [address] Internal Medicine 04/19/21 Adrien Young MD [address] [place] [address] Consulting Physician Infectious Diseases 11/06/21 documented as of this encounter
--- OUTSIDE RECORDS SUMMARY | 2024-03-19 07:28 | XMS_ITS | Encounter Summary ---
Author Organization [facility] Address [address] [address] Care Team Providers Care Book Editor Name Role Phone Anil Gupta MD Primary Care Provider [phone] Anil Gupta MD Unavailable [phone] Adrien Young MD Unavailable Reason for Visit * Diagnostic Imaging (Routine) - Closed Specialty Diagnoses / Procedures Referred By Enio granado Referred To Contact Diagnoses Status post lumbar spinal fusion Procedures XR Spine Lumbar Ap Lat Flex Ext min 4 Views Milad Garcia MD Phone: tel: fax: [facility] Referral ID Status Reason Start Date Expiration Date Visits Re quested Visits Authorized [id number] Closed 12/02/2022 01/01/2024 1 1 Encounter Details Date Type Department Care Team (Late st Contact Info) Description 12/02/2022 10:00 AM CDT Ancillary Procedure Advanced Spine [place] [address] [address] Social History Tobacco Use Types [...] How often do you attend chur or rastafarian services? 1 to 4 times per year 10/29/2021 Do you belong to any clubs o r organizations such as catholic groups, unions, fraternal or athletic groups, or [...] on file Legal Sex Male 12:56 PM LOSS PREVENTION SPECIALIST Gender Identity Male 05/23/2021 12:08 PM LOSS PREVENTION SPECIALIST Sexual Orientation Straight 05/23/2021 12 :08 PM LOSS PREVENTION SPECIALIST documented as of this encounter Plan of Treatment Not on file documented as of this encounter Procedures Procedure Name Priority Date/Time Associated Diagnosis Comments XR LUMBAR SPINE AP LAT FLEX EX Schedule Routine, Read Routine (OP Routine) 12/02/2022 10:15 AM CDT Status post lumbar spinal fusion documented in this encounter Results * XR Spine Lumbar Ap Lat Flex Ext min 4 Views (12/02/2022 10:15 AM CDT) Anatomical Region Laterality Modality L-spine N/A Digital Radiogra phy Narrative 12/02/2022 11:10 AM CDT AP, lateral, flexion, extension views [...] appear to be fused at L5-S1 now. ??No significant changes from previous radiographs, alignment essentially the same. Milad Garcia MD IMG XR PROCEDURES Final Result documented in this encounter Visit Diagnoses Not on filedocumented in this encounter Care Teams Book Editor Relationship Specialty Start Date End Date Anil Gupta MD [address] [place] [address] PCP - General Internal Medicine 04/19/21 Anil Gupta MD [address] [place] [address] Internal Medicine 04/19/21 Adrien Young MD [address] [facility] [address] [place] [address] Consulting Physician Infectious Diseases 11/06/21 documented as of this encounter
--- OUTSIDE RECORDS SUMMARY | 2024-03-19 07:28 | XMS_ITS | Encounter Summary ---
Author Organization [facility] Address [address] [place] [address] Care Team Providers Care Book Salesman Name Role Phone Anil Gupta MD Primary Care Provider [phone] Anil Gupta MD Unavailable [phone] Adrien Young MD Unavailable [phone] Reason for Referral * Diagnostic Imaging (Routine) - Closed Specialty Diagnoses / Procedures Referred By Contac t Referred To Contact Diagnoses Lumbar back pain Procedures XR Spine Lumbar Ap Lat Flex Ext min 4 Views Milad Garcia MD Phone: tel: fax: [facility] [address] [place] [address] Referral ID Status Reason Start Date Expiration Date Visits Re quested Visits Authorized [id number] Closed 04/15/2022 05/15/2023 1 1 IE CLEANER Reason for Visit * Diagnostic Imaging (Routine) - Closed Specialty Diagnoses / Procedures Referred By Contac t Referred To Contact Diagnoses Lumbar back pain Procedures XR Spine Lumbar Ap Lat Flex Ext min 4 Views Milad Garcia MD Phone: tel: fax: [facility] [address] [place] [address] Referral ID Status Reason Start Date Expiration Date Visits Re quested Visits Authorized [id number] Closed 04/15/2022 05/15/2023 1 1 Encounter Details Date Type Department Care Team (Latest Contact Info) Description 04/15/2022 10:07 AM CONNIE CLEANER - 04/15/2022 11:59 PM CONNIE CLEANER Hospital Encounter [facility] - Imaging [address] [place] [id number] Lumbar back pain Discharge Disposition: Discharge to home or self [...] often do you attend chur ch or confucianist services? 1 to 4 times per year 10/29/2021 Do you belong to any clubs o r organizations such as anabaptist groups, unions, fraternal or athletic groups, or [...] medical appointments or from getting medications? No 0804/2021 In the past 12 months, has l ack of transportation kept you from meetings, work, or from getting things needed for daily living? No 10/29/2021 Sex and Gender Information Value Date Recorded Sex Assigned at Not on file Legal Sex Male 12:56 PM CONNIE CLEANER Gender Identity Male 05/23/2021 12:08 PM CONNIE CLEANER Sexual Orientation Straight 05/23/2021 12 :08 PM CONNIE CLEANER documented as of this encounter Medications at Time of Discharge benralizumab (Fasenra) 30 mg/mL syringe Inject 1 mL (30 mg total) under the skin Gets every 2 month- next dose on 03/07/[address] (NexIUM) 20 mg capsule Take 1 capsule (20 mg total) by mouth daily before breakfast 3 famotidine (PEPCID) 20 mg tablet Take 1 tablet (20 mg total) by mouth 2 (two) times a day 2 fluticasone propionate (FLONASE) 50 mcg/actuation nasal spray Administer 2 sprays into each nostril 2 (two) times a day ipratropium (ATROVENT) 42 mcg (0.06 %) nasal spray Administer 2 sprays into each nostril 2 (two) times a day rOPINIRole (REQUIP) 2 mg tablet Take 1 tablet (2 mg total) by mouth nightly albuterol HFA (PROVENTIL HFA,VENTOLIN HFA,PROAIR HFA) 90 mcg/actuation inhaler 1 09/16/19 24 benralizumab (Fasenra Pen) 30 mg/mL auto-injector 02/09/20 2 1 09/16/19 24 budesonide-formoter oL (Symbicort) 160-4.5 mcg/actuation inhaler 1 09/16/19 24 lansoprazole (Prevacid) 30 mg capsule 1 capsule (30 mg total) 6 09/16/19 24 LYRICA 150 mg capsule Take 2 capsules (300 mg total) by mouth daily 8 02/13/20 23 nebulizer accessories misc See Instructions, 1 each, 1 each, Route to Pharmacy Electronically, [facility]/pharmacy #[id number], [id number], Instructions Replace Required Details, Supply 0 09/16/19 24 nystatin 100,000 unit/mL suspension 1 09/16/19 24 ondansetron ODT (ZOFRAN-ODT) 8 mg disintegrating tablet TAKE 1 TABLET BY MOUTH FOUR TIMES DAILY NEEDED FOR NAUSEA AND VOMITING 2 09/16/19 24 tiZANidine (ZANAFLEX) 2 mg tablet Take 1-2 tablets (2-4 mg total) by mouth every 8 (eight) hours as needed for muscle spasms 20 tablet 1 3 10/15/19 23 valACYclovir (VALTREX) 500 mg tablet 1 tablet (500 mg total) 6 09/16/19 24 documented as of this encounter Discharge Disposition Disposition Code Departure Means Destination Discharge to home or self care documented in this encounter Plan of Treatment Not on file documented as of this encounter Procedures Procedure Name Priority Date/Time Associated Diagnosis Comments XR LUMBAR SPINE AP LAT FLEX EX Schedule Routine, Read Routine (OP Routine) 04/15/2022 10:21 AM CONNIE CLEANER Lumbar back pain documented in this encounter Results * XR Spine Lumbar Ap Lat Flex Ext min 4 Views (04/15/2022 10:21 AM CONNIE CLEANER) Anatomical Region Laterality Modality L-spine N/A Computed Radiogr aphy 04/15/2022 10:2 5 AM CONNIE CLEANER Impressions 04/15/2022 10:25 AM CONNIE CLEANER The patient is status post L5-S1 posterior instrumentation. ??An interbody spacer is present at L5-S1. ??The hardware is intact. There is exaggeration of normal lumbar lordosis. ??There is mild retrolisthesis in a stepwise fashion at L2-L3 through L4-L5. ?? There is no abnormal translation on flexion or extension. ?? No acute osseous abnormality is identified in the lumbar spine. ??The visualized sacrum and bony pelvis are intact. ??There are no acute findings in the soft tissues. Electronically signed by: Jt Alvares M.D. Narrative 04/15/2022 10:25 AM CONNIE CLEANER XR SPINE LUMBAR AP LAT FLEX EXT MIN 4 VIEWS: 04/15/2022 11:15 AM CLINICAL INDICATION: Lumbar back pain. COMPARISON: Radiographs of the lumbar spine dated 12/31/2021. Procedure Note Jt Alvares MD - 04/15/2022 XR SPINE LUMBAR AP LAT FLEX EXT MIN 4 VIEWS: 04/15/2022 11:15 AM CLINICAL INDICATION: Lumbar back pain. COMPARISON: Radiographs of the lumbar spine dated 12/31/2021. IMPRESSION: The patient is status post L5-S1 posterior instrumentation. An interbody spacer is present at L5-S1. The hardware is intact. There is exaggeration of normal lumbar lordosis. There is mild retrolisthesis in a stepwise fashion at L2-L3 through L4-L5. There is no abnormal translation on flexion or extension. No acute osseous abnormality is identified in the lumbar spine. The visualized sacrum and bony pelvis are intact. There are no acute findings in the soft tissues. Electronically signed by: Jt Alvares M.D. Milad Garcia MD IMG XR PROCEDURES Final Result documented in this encounter Visit Diagnoses Diagnosis Lumbar back pain Lumbago documented in this encounter Care Teams Book Salesman Relationship Specialty Start Date End Date Anil Gupta MD [address] [place] [address] PCP - General Internal Medicine 04/19/21 Anil Gupta MD [address] [place] [address] Internal Medicine 04/19/21 Adrien Young MD [address] [facility] [address] [place] [address] Consulting Physician Infectious Diseases 11/06/21 documented as of this encounter
--- OUTSIDE RECORDS SUMMARY | 2024-03-19 07:28 | XMS_ITS | Encounter Summary ---
Author Organization [facility] Address [address] [place] [address] Care Team Providers Care Population Geneticist Name Role Phone Anil Gupta MD Primary Care Provider [phone] Anil Gupta MD Unavailable [phone] Adrien Young MD Unavailable [phone] Milad Garcia MD Unavailable [phone] Reason for Visit * Reason Comments Follow-up Encounter Details Date Type Department Care Team (Late st Contact Info) Description 08/06/2023 9:30 AM CDT Office Visit [facility] Neurology [address] [place] [address] [place] [phone] Campbell Araya MD [address] [place] [phone] Polyneuropathy (Primary Dx) Social History Tobacco Use [...] week 10/29/2021 How often do you attend [facility] or temple services? 1 to 4 times per year 10/29/2021 Do you belong to any clubs o r organizations such as latter-day groups, unions, fraternal or athletic groups, or [...] on file Legal Sex Male 12:56 PM MIDDLEWARE SYSTEMS ARCHITECT Gender Identity Male 05/23/2021 12:08 PM MIDDLEWARE SYSTEMS ARCHITECT Sexual Orientation Straight 05/23/2021 12 :08 PM MIDDLEWARE SYSTEMS ARCHITECT documented as of this encounter Last Filed Vital Signs Vital Sign Reading Time Taken Comments Blood Pressure 100/60 08/06/2023 9:18 AM CDT Pulse 79 08/06/2023 9:18 AM CDT Temperature - - Respiratory Rate - - Oxygen Saturation - - Inhaled Oxygen Concentration - - Weight 89.8 kg (198 lb) 08/06/2023 9:18 AM CDT Height 182.9 cm (6') 08/06/2023 9:18 AM CDT Body Mass Index 26.85 08/06/2023 9:18 AM CDT documented in this encounter Ordered Prescriptions Prescription Sig Dispense Quantity Refills Last Filled Start Date End Date nortriptyline (PAMELOR) 25 mg capsule Take 1 capsule (25 mg total) by mouth nightly 30 capsule 11 08/20/2023 4 documented in this encounter Progress Notes * Campbell Araya MD - 08/06/2023 9:30 AM CDT Images from the original note were not included. Patient ID: Douglas Horn is a 73 y.o. male Chief Complaint: neuropathy History of Present Illness: This is a 73-year-old male who presents as a follow-up for peripheral neuropathy. He says that he has had symptoms of neuropathy for the last 10 years. 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 When he initially saw me he was already taking Lyrica 150 mg 3 times daily for pain. I then started him on Cymbalta DR 30 mg daily, and when he saw me again as a follow-up in April he felt like things improve. However he then tried coming down off the Lyrica and said that the pain returned. I increased his Cymbalta to 30 mg twice daily, and then recommended that he take 150 mg of Lyrica twice daily instead of 3 times daily. He now tells me that while he initially thought the Cymbalta was helpful he no longer thinks that it has had any effect on him.He also feels like the medication has decreased his sex drive. Review of Systems As above. All other systems were reviewed and found to be normal or non-contributory. Current Outpatient Medications Medication Sig Dispense Refill benzonatate (TESSALON) 200 mg capsule TAKE 1 CAPSULE BY MOUTH 3 TIMES A DAY, INS WON'T COVER ibuprofen (ADVIL,MOTRIN) 600 mg tablet START 06/08 AFTER PROCEDURE TAKE 1TAB BY MOUTH EVERY 6HOURS WITH FOOD NEEDED FOR PAIN MAX: 3/DAY methylPREDNISolone (MEDROL DOSEPACK) 4 mg Dosepack TAKE 6 TABS ON DAY 1 DIRECTED ON PACK AND DECREASE BY 1 TAB EACH DAY FOR 6 DAYS TOTAL, START 06/09 phenazopyridine (PYRIDIUM) 200 mg tablet START 06/08 AFTER PROCEDURE. 1TAB NEEDED EVERY 6HOURS UPTO 3TIMES A DAY FOR URINARY PAIN/BURNING traZODone (DESYREL) 50 mg tablet TAKE 1-3 TABLETS DAILY NEEDED albuterol HFA (PROVENTIL HFA,VENTOLIN HFA,PROAIR HFA) 90 mcg/actuation inhaler (Patient not taking:Reported on 02/12/2023) amoxicillin (AMOXIL) 875 mg tablet TAKE ONE TABLET BY MOUTH EVERY 12 HOURS FOR 7 DAYS (Patient not taking: Reported on 05/04/2023) benralizumab (Fasenra Pen) 30 mg/mL auto-injector See Instructions, 1 each, 11, 11, 30 mg SubQ as directed, Print Requisition, Instructions Replace Required Details (Patient not taking: Reported on 02/12/2023) benralizumab (Fasenra) 30 mg/mL syringe See Instructions, 1 syringe, 0, 0, 30mg prefilled syringe sub-q every 8 week, Print Requisition, Instructions Replace Required Details (Patient not taking: Reported on 02/12/2023) budesonide-formoteroL (Symbicort) 160-4.5 mcg/actuation inhaler (Patient not taking: Reported on 02/12/2023) DULoxetine DR (CYMBALTA) 30 mg capsule Take 1 capsule (30 mg total) by mouth 2 (two) times a day 180 capsule 1 famotidine (PEPCID) 20 mg tablet Take 1 tablet (20 mg total) by mouth 2 (two) times a day (Patient not taking: Reported on 02/12/2023) finasteride (PROSCAR) 5 mg tablet Take 1 tablet (5 mg total) by mouth daily fluticasone propionate (FLONASE) 50 mcg/actuation nasal spray Administer 4 sprays into each nostrildaily ipratropium (ATROVENT) 42 mcg (0.06 %) nasal spray Administer 2 sprays into each nostril 2 (two) times a day lansoprazole (Prevacid) 30 mg capsule 1 capsule (30 mg total) (Patient not taking: Reported on 02/12/2023) levoFLOXacin (LEVAQUIN) 500 mg tablet TAKE 1 TABLET BY MOUTH EVERY DAY FOR 10 DAYS (Patient not taking: Reported on 02/12/2023) mupirocin (BACTROBAN) 2 % ointment PLEASE SEE ATTACHED FOR DETAILED DIRECTIONS (Patient not taking:Reported on 02/12/2023) nebulizer accessories [facility] See Instructions, 1 each, 1 each, Route to Pharmacy Electronically, [facility]/pharmacy #[id number], [id number], Instructions Replace Required Details, Supply (Patient not taking: Reported on 02/12/2023) nystatin 100,000 unit/mL suspension (Patient not taking: Reported on 02/12/2023) nystatin cream Apply topically 2 (two) times a day ondansetron ODT (ZOFRAN-ODT) 8 mg disintegrating tablet TAKE 1 TABLET BY MOUTH FOUR TIMES DAILY NEEDED FOR NAUSEA AND VOMITING (Patient not taking: Reported on 02/12/2023) pregabalin (LYRICA) 150 mg capsule Take 1 capsule (150 mg total) by mouth 3 (three) times a day 270capsule 1 rOPINIRole (REQUIP) 2 mg tablet Take 1 tablet (2 mg total) by mouth nightly sulfamethoxazole-trimethoprim (BACTRIM DS) 800-160 mg per tablet Take 1 tablet by mouth 2 (two) times a day (Patient not taking: Reported on 05/04/2023) tiZANidine (ZANAFLEX) 2 mg tablet TAKE 1-2 TABLETS (2-4 MG TOTAL) BY MOUTH EVERY 8 HOURS NEEDED FOR MUSCLE SPASMS 90 tablet 1 valACYclovir (VALTREX) 500 mg tablet 1 tablet (500 mg total) (Patient not taking: Reported on 02/12/2023) No current facility-administered medications for this visit. Physical Exam Vitals BP 100/60 (BP Location: Left arm, Patient Position: Sitting) Pulse 79 Ht 182.9 cm (6') Wt 89.8 kg (198 lb) BMI 26.85 kg/m?? Assessments and Plan 1. Polyneuropathy He tells me that the Cymbalta has not been helpful and that he would like to come off of it since he feels like it is affecting his sex drive. He is currently taking 30 mg of Cymbalta twice daily. I would recommend that he take 30 mg for 2 weeks, and then stopped the medication entirely. He was also taking Lyrica 150 mg twice daily and can continue on this. I will plan on starting him on nortriptyline 25 mg and discussed that he could start this after stopping the Cymbalta. I discussed potential side effects of the nortriptyline and he was agreeable to this plan. He also is currently following with a paint roller assembler, who offered him placement of a spinal cord stimulator. He may co nsider this in the future, and I discussed that this may be a good option for him since he was already on a very high dose of Lyrica and having breakthrough pain. I will plan on seeing him again in 3months or sooner if needed. My total encounter time on 08/06/2023 was 26 minutes which was spent in the activities [...] idiopathic peripheral neuropathy documented in this encounter Historical Medications * This list may reflect changes made after this encounter. traZODone (DESYREL) 50 mg tablet TAKE 1-3 TABLETS DAILY NEEDED 06/10/2023 4 phenazopyridine (PYRIDIUM) 200 mg tablet START 06/08 AFTER PROCEDURE. 1TAB NEEDED EVERY 6HOURS UP TO 3TIMES A DAY FOR URINARY PAIN/BURNING 06/02/2023 4 methylPREDNISolo ne (MEDROL DOSEPACK) 4 mg Dosepack TAKE 6 TABS ON DAY 1 DIRECTED ON PACK AND DECREASE BY 1 TAB EACH DAY FOR 6 DAYS TOTAL, START 06/0906/02/2023 4 ibuprofen (ADVIL,MOTRIN) 600 mg tablet START 06/08 AFTER PROCEDURE TAKE 1TAB BY MOUTH EVERY 6HOURS WITH FOOD NEEDED FOR PAIN MAX: 3/DAY 06/02/2023 4 benzonatate (TESSALON) 200 mg capsule TAKE 1 CAPSULE BY MOUTH 3 TIMES A DAY, INS WON'T COVER 08/03/2023 4 added in this encounter Care Teams Population Geneticist Relationship Specialty Start Date End Date Anil Gupta MD [address] [place] [address] PCP - General Internal Medicine 04/19/21 Anil Gupta MD [address] [place] [address] Internal Medicine 04/19/21 Adrien Young MD [address] [facility] [address] [place] [address] Consulting Physician Infectious Diseases 11/06/21 Milad Garcia MD [address] [facility] [address] [place] [address] Consulting Physician Orthopedic Surgery 03/02/23 documented as of this encounter
--- OUTSIDE RECORDS SUMMARY | 2024-03-19 07:28 | XMS_ITS | Encounter Summary ---
Author Organization [facility] Address [address] [place] [address] Phone Care Team Providers Care Air Traffic Control Manager Name Role Phone Anil Gupta MD Primary Care Provider [phone] Anil Gupta MD Unavailable [phone] Adrien Young MD Unavailable [phone] Reason for Visit * Auth/Cert Specialty Diagnoses / Procedures Referred By Contac t Referred To Contact Referral ID Status Reason Start Date Expiration Date Visits Re quested Visits Authorized [id number] 1 1 Encounter Details Date Type Department Care Team (Late st Contact Info) Description 12/16/2021 3:30 PM CDT Home Care Visit [facility] [address] [address] [address] [place] [address] Roxana Hardin RN SN OASIS DISCHARGE Social History Tobacco Use Types Packs/Day Years [...] often do you attend chur ch or denominational services? 1 to 4 times per year [...] on file Legal Sex Male 12:56 PM RETAIL ZONE SPECIALIST Gender Identity Male 05/23/2021 12:08 PM RETAIL ZONE SPECIALIST Sexual Orientation Straight 05/23/2021 12 :08 PM RETAIL ZONE SPECIALIST documented as of this encounter Plan of Treatment Not on file documented as of this encounter Visit Diagnoses Not on filedocumented in this encounter Home Health Visit - Care Plan Visit Details Visit Type -SN OASIS Dischar ge Discipline -Mcc Problems Problem Description Start Date Status Goals Interve ntions Need to Collect Specimen Sample Disciplines: Mcc Need to collect specimen sample 11/07/2021 Active 1 goal linked to scheduled/documen andrew intervention Homebound Status Disciplines: Skilled Disciplines Patient's homebound status 11/07/2021 Active 1 goal linked to scheduled/documen andrew intervention 1 goal intervention scheduled/documen andrew in this visit Medications Disciplines: Mcc Management of home medications 11/07/2021 Active 1 goal linked to scheduled/documen andrew intervention Monitor patient's vital signs every home health visit Disciplines: SN, PT, OT, SALVAGE CLERK, CLINIC MGR, Skilled Disciplines Monitor patient's vital signs every home health visit. 11/07/2021 Active 1 goal linked to scheduled/documen andrew intervention 1 goal intervention scheduled/documen andrew in this visit Multidisciplinar y Case Conference Disciplines: Skilled Disciplines Concurrently discusses plan of treatment and coordinate patient centered care 11/07/2021 Active 1 goal linked to scheduled/documen andrew intervention Infection Prevention Disciplines: Skilled Disciplines Infection Prevention 11/07/2021 Active 1 goal linked to scheduled/documen andrew intervention 1 goal intervention scheduled/documen andrew in this visit Safety concerns Disciplines: Skilled Disciplines Alteration in safety 11/07/2021 Active 1 goal linked to scheduled/documen andrew intervention 2 goal interventions scheduled/documen andrew in this visit Pain Disciplines: Core Disciplines Alteration in comfort 11/07/2021 Active 1 goal linked to scheduled/documen andrew intervention 1 goal intervention scheduled/documen andrew in this visit Wound Risk of Infection Disciplines: Core Disciplines Risk of infections related to wounds 11/07/2021 Active 1 goal linked to scheduled/documen andrew intervention Knowledge Deficit - Wound Care Disciplines: Core Disciplines Deficiency of cognitive information related to wound care 11/07/2021 Active 1 goal linked to scheduled/documen andrew intervention Wound Care Disciplines: Core Disciplines Wound care needed, #7 back 11/07/2021 Active 1 goal linked to scheduled/documen andrew intervention Wound Care Disciplines: Core Disciplines Wound care needed 11/07/2021 Active 1 goal linked to scheduled/documen andrew intervention Goals Goal Associated Problem Outcome Goal Met? Visit Notes Draw lab specimen as ordered Description: Skilled nurse to perform lab draw or specimen collection as ordered. Skilled Nurse may obtain lab specimens from picc line or peripherally if unable to obtain blood from line or per physician order. Skilled nurse to flush line with 10 mL NS prior to blood draw and withdraw 5-10 mL of blood for waste, obtain blood sample, flush with 20 mL of NS and appropriate Heparin dose specific for IV access. Need to Collect Specimen Sample Completed Yes Patient discharged from home care service. IV antibiotics complete and {PICC line removed at MD office visit. Patient receives care at the most appropriate care setting Description: Patient receives care at the most appropriate care setting during the certification period ending 01/05/22 Homebound Status Completed Yes Patient discharged from home care service. IV antibiotics complete and {PICC line removed at MD office visit. Understand and follow medication therapy Description: Patient/caregiver will understand and follow prescribed medication therapy as evidence by having up to date medication list in home & ability to verbalize purpose, schedule, and side effects by the end of the episode of care 01/05/22 Medications Completed Yes Patient discharged from home care service. IV antibiotics complete and {PICC line removed at MD office visit. Measure vital signs during every home health visit during episode of care Description: Home rental coordinator to measure vital signs during every home health visit during episode of care 01/05/22 Monitor patient's vital signs every home health visit Completed Yes Patient discharged from home care service. IV antibiotics complete and {PICC line removed at MD office visit. Care team will coordinate care Description: Care team will coordinate care centered on patient needs throughout the episode of care ending 01/05/22 Multidisciplinary Case Conference Completed Yes Patient discharged from home care service. IV antibiotics complete and {PICC line removed at MD office visit. Verbalize signs of infection Description: Patient/caregiver will demonstrate knowledge of infection prevention strategies by verbalizing signs and symptoms of infection during the certification period ending 01/05/22 Infection Prevention Completed Yes Patient discharged from home care service. IV antibiotics complete and {PICC line removed at MD office visit. Demonstrate use of safety precautions Description: Patient/caregiver maintains safe home environment as evidenced by remaining free from injury and demonstrates use of safety precautions during the certification period ending 01/05/22 Safety concerns Completed Yes Patient discharged from home care service. IV antibiotics complete and {PICC line removed at MD office visit. Report that pain has been reduced or controlled Description: Patient/caregiver/famil y will verbalize satisfaction with the patients level of pain and symptom control during the certification period ending 01/05/22 Pain Completed Yes Patient discharged from home care service. IV antibiotics complete and {PICC line removed at MD office visit. Knowledgeable of infection Description: Patient will remain free of infection and able to recognize of signs of infection by 12/06/21 Wound Risk of Infection Completed Yes Patient discharged from home care service. IV antibiotics complete and {PICC line removed at MD office visit. Knowledgeable on Woundcare Description: Patient/caregiver will be knowledgeable on wound care procedure as evidenced by successful return demonstration, wound healing evidenced by progressive wound healing and when to seek medical attention evidenced by patient/caregiver ability to verbalize s/sx to report to MD or CLINIC MGR during the certification period ending 12/06/21 Knowledge Deficit - Wound Care Completed Yes Patient discharged from home care service. IV antibiotics complete and {PICC line removed at MD office visit. Progression towards healing Description: Wound #7 back incision show progression towards healing by 12/06/21 Wound Care Completed Yes Patient discharged from home care service. IV antibiotics complete and {PICC line removed at MD office visit. Progression towards healing Description: Wound show progression towards healing by 12/06/21 Wound Care Completed Yes Patient discharged from home care service. IV antibiotics complete and {PICC line removed at MD office visit. Interventions Intervention Associated Problem/Goal Status Variance Visit Notes Homebound Status Description: Patient is homebound due to pain from back surg, needs assist of one to leave home and frequent rest breaks. Problem:Homebound Status Goal:Patient receives care at the most appropriate care setting Completed Patient discharged from home care service. IV antibiotics complete and {PICC line removed at MD office visit. Monitor Vital Signs Description: Monitor blood pressure, pulse, oxygen saturation, respirations Problem:Monitor patient's vital signs every home health visit Goal:Measure vital signs during every home health visit during episode of care Completed Patient discharged from home care service. IV antibiotics complete and {PICC line removed at MD office visit. Aspects of Care Description: Instruct patient/caregiver on universal precautions and home infection control measures Problem:Infection Prevention Goal:Verbalize signs of infection Completed Patient discharged from home care service. IV antibiotics complete and {PICC line removed at MD office visit. Instruct Fall Prevention Description: Instruct patient/caregiver in methods to prevent falls Problem:Safety concerns Goal:Demonstrate use of safety precautions Completed Patient discharged from home care service. IV antibiotics complete and {PICC line removed at MD office visit. Assess safety Description: Assess patient safety Problem:Safety concerns Goal:Demonstrate use of safety precautions Completed Patient discharged from home care service. IV antibiotics complete and {PICC line removed at MD office visit. Instruct on pain management techniques Description: Instruct in pharmacologic and nonpharmacologic pain management techniques. Problem:Pain Goal:Report that pain has been reduced or controlled Completed Patient discharged from home care service. IV antibiotics complete and {PICC line removed at MD office visit. documented in this encounter Care Teams Air Traffic Control Manager Relationship Specialty Start Date End Date Anil Gupta MD [address] [place] [address] PCP - General Internal Medicine 04/19/21 Anil Gupta MD [address] [place] [address] Internal Medicine 04/19/21 Adrien Young MD [address] [facility] [address] [place] [address] Consulting Physician Infectious Diseases 11/06/21 documented as of this encounter
--- OUTSIDE RECORDS SUMMARY | 2024-03-19 07:28 | XMS_ITS | Encounter Summary ---
Author Organization [facility] Address [address] [place] [address] Care Team Providers Care Chuck Tender Name Role Phone Anil Gupta MD Primary Care Provider [phone] Anil Gupta MD Unavailable [phone] Adrien Young MD Unavailable [phone] Encounter Details Date Type Department Care Team (Late st Contact Info) Description 12/31/2021 10:00 AM CDT Office Visit [facility] [address] [place] [address] Jazmin Marie, PROOFER APPRENTICE [address] [facility] [place], [place] [id number] Status post lumbar spinal fusion (Primary Dx) Social History Tobacco Use Types [...] How often do you attend chur or sikh services? 1 to 4 times per year [...] on file Legal Sex Male 12:56 PM SPECIFICATION MANAGER Gender Identity Male 05/23/2021 12:08 PM SPECIFICATION MANAGER Sexual Orientation Straight 05/23/2021 12 :08 PM SPECIFICATION MANAGER documented as of this encounter Progress Notes * Jazmin Marie NP - 12/31/2021 10:00 AM CDT Images from the original note were not included. POSTOP NOTE Douglas Horn 12/31/2021 REASON FOR VISIT: postop following L5-S1 decompression and fusion with washout x2. 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 He is being followed by Dr. Young/Infectious Disease. HISTORY OF PRESENT ILLNESS: Mr. Horn is doing very well overall. Occasional incisional site pain. His leg pain has resolved. Left SI pain radiating to left hip is improving but most noticeable when he is rolling over in bed. Patient denies any falls or injuries since surgery, bowel bladder incontinence, chest pain, abdominal pain, peripheral swelling. She does report occasional numbness and tingling of his left lower extremity especially when he lifts his leg up in the shower. He denies use ofany pain medications. He occasionally uses tizanidine primarily at bedtime. Currently on [address] Young care. Current Outpatient Medications Medication pregabalin (LYRICA) 300 mg capsule tiZANidine (ZANAFLEX) 4 mg tablet albuterol HFA (PROVENTIL HFA,VENTOLIN HFA,PROAIR HFA) 90 mcg/actuation inhaler budesonide-formoteroL (SYMBICORT) 160-4.5 mcg/actuation inhaler cefTRIAXone (ROCEPHIN) syringe fluticasone propionate (FLONASE) 50 mcg/actuation nasal spray heparin sod,porcine/0.9 % NaCl (HEPARIN FLUSH IV) ipratropium (ATROVENT) 42 mcg (0.06 %) nasal spray LYRICA 150 mg capsule oxyCODONE (ROXICODONE) 5 mg immediate release tablet pantoprazole DR (PROTONIX) 40 mg EC tablet rOPINIRole (REQUIP) 2 mg tablet sodium chloride 0.9 %, flush, (SALINE FLUSH INJ) valACYclovir (VALTREX) 500 mg tablet vancomycin (VANCOCIN) 125 mg capsule No current facility-administered medications for this visit. Physical Exam Constitutional: General: He is not in acute distress. Appearance: Normal appearance. He is normal weight. HENT: Head: Normocephalic and atraumatic. Skin: General: Skin is warm and dry. Comments: Lumbar incision is healed. Appropriate skin care was reviewed with the patient. Neurological: Mental Status: He is alert and oriented to person, place, and time. Sensory: Sensation is intact. Motor: Motor function is intact. Coordination: Coordination is intact. Gait: Gait is intact. Comments: Bilateral lower extremity strength is 5/5. Bilateral hip flexor strength is 5/5. Psychiatric: Attention and Perception: Attention normal. Mood and Affect: Mood normal. Speech: Speech normal. Behavior: Behavior is cooperative. FILM REVIEW: Lumbar AP lateral films obtained today show instrumentation is intact and alignment ismaintained. Interbody graft is seen at L5-S1. No lucency seen around the instrumentation. VITAMIN D RESULTS/RECOMMENDATIONS: 10/02/21: 52. Diagnoses and all orders for this visit: Status post lumbar spinal fusion (Primary) Assessment & Plan: PLAN: - may increase activity as tolerated with lifting no more than 20 lb at this time. - discontinue brace -may use anti-inflammatories as needed. WORK STATUS: - RETIRED FOLLOW UP APPT: With Dr. Garcia in 3 months with AP/LAT/Flexion/Extension Lumbar spine films. This document was created using speech voice recognition software and has not been thoroughly reviewed. Grammatical errors, random word insertions, pronoun errors and incomplete sentences are an occasional consequence of this system due to software limitations, ambient noise and hardware issues. Any formal questions or concerns about content, text or information contained within the body of this dictation should be directly addressed to the provider's office for clarification. documented in this encounter Miscellaneous Notes * Assessment & Plan Note - Jazmin Marie NP - 12/31/2021 10:19 AM CDTAssociated Problem(s): Status post lumbar spinal fusion PLAN: - may increase activity as tolerated with lifting no more than 20 lb at this time. - discontinue brace -may use anti-inflammatories as needed. WORK STATUS: - RETIRED FOLLOW UP APPT: With Dr. Garcia in 3 months with AP/LAT/Flexion/Extension Lumbar spine films. documented in this encounter Plan of Treatment Not on file documented as of this encounter Visit Diagnoses Diagnosis Status post lumbar spinal fusion- Primary Arthrodesis status documented in this encounter Care Teams Chuck Tender Relationship Specialty Start Date End Date Anil Gupta MD [address] [place] [address] [place] [address] PCP - General Internal Medicine 04/19/21 Anil Gupta MD [address] [place] [address] Internal Medicine 04/19/21 Adrien Young MD [address] [facility] [address] [place] [address] Consulting Physician Infectious Diseases 11/06/21 documented as of this encounter
--- OUTSIDE RECORDS SUMMARY | 2024-03-19 07:28 | XMS_ITS | Encounter Summary ---
Author Organization [facility] Healthcare Address [address] [place] [address] Care Team Providers Care Range Mounter Name Role Phone Anil Gupta MD Primary Care Provider [phone] Anil Gupta MD Unavailable [phone] Adrien Young MD Unavailable [phone] Milad Garcia MD Unavailable [phone] Encounter Details Date Type Department Care Team (Late st Contact Info) Description 03/02/2023 Orders Only [facility] [address] [place] [address] [place] [address] [place] [id number] Status post lumbar spinal fusion Social History Tobacco Use Types Packs/Day Years [...] How often do you attend chur or yazidism services? 1 to 4 times per year [...] on file Legal Sex Male 12:56 PM RN NEW GRAD Gender Identity Male 05/23/2021 12:08 [address] RN [address]AD Sexual Orientation Straight 05/23/2021 12 :[address]AD documented as of this encounter Plan of Treatment Not on file documented as of this encounter Visit Diagnoses Diagnosis Status post lumbar spinal fusion Arthrodesis status documented in this encounter Care Teams Range Mounter Relationship Specialty Start Date End Date Anil Gupta MD [address] [place] [address] PCP - General Internal Medicine 04/19/21 Anil Gupta MD [address] [place] [address] Internal Medicine 04/19/21 Adrien Young MD [address] [facility] [address], [place] [address] Consulting Physician Infectious Diseases 11/06/21 Milad Garcia MD [address] [address] Consulting Physician Orthopedic Surgery 03/02/23 documented as of this encounter
--- OUTSIDE RECORDS SUMMARY | 2024-03-19 07:28 | XMS_ITS | Encounter Summary ---
Author Organization [facility] Healthcare Address [address] [place] [address] Care Team Providers Care Soap Inspector Name Role Phone Anil Gupta MD Primary Care Provider [phone] Anil Gupta MD Unavailable Adrien Young MD Unavailable [phone] Milad Garcia MD Unavailable [phone] Reason for Visit * Reason Onset Date Comments Prior Auth 03/06/2023 Encounter Details Date Type Department Care Team (Late st Contact Info) Description 03/06/2023 Telephone [facility] Neurology [address] [place] [address] [place] [id number] Campbell Araya MD [address] [place] [id number] Prior Auth Social History Tobacco Use Types Packs/Day Years [...] week 10/29/2021 How often do you attend [facility] or caodaism services? 1 to 4 times per year 10/29/2021 Do you belong to any clubs o r organizations such as baptist groups, unions, fraternal or athletic groups, or [...] on file Legal Sex Male 12:56 PM FOOD PREPARATION WORKER Gender Identity Male 05/23/2021 12:08 PM FOOD PREPARATION WORKER Sexual Orientation Straight 05/23/2021 12 :08 PM FOOD PREPARATION WORKER documented as of this encounter Miscellaneous Notes * Telephone Encounter - Ivelisse Abdi MA - 03/09/2023 11:31 AM CST Ok thanks PREPARATION WORKER * Telephone Encounter - Ivelisse Abdi MA - 03/06/2023 1:06 PM CST Faxed came in from [employer] stating that the Lyrica 150mg is not covered under the plan, but that Pregabalin 150mg Capsules are covered as an alternative.Please change the medication.Or advised the next steps. PREPARATION WORKER documented in this encounter Plan of Treatment Not on file documented as of this encounter Visit Diagnoses Not on filedocumented in this encounter Care Teams Soap Inspector Relationship Specialty Start Date End Date Anil Gupta MD [address] [place] [address] PCP - General Internal Medicine 04/19/21 Anil Gupta MD [address] [place] [address] Internal Medicine 04/19/21 Adrien Young MD [address] [facility] [address], [place] [address] Consulting Physician Infectious Diseases 11/06/21 Milad Garcia MD [address] [facility] [address], [place] [address] Consulting Physician Orthopedic Surgery 03/02/23 documented as of this encounter
--- OUTSIDE RECORDS SUMMARY | 2024-03-19 07:28 | XMS_ITS | Encounter Summary ---
Author Organization [facility] Healthcare Address [address] [place] [address] Care Team Providers Care Can Top Setter Name Role Phone Anil Gupta MD Primary Care Provider [phone] Anil Gupta MD Unavailable [phone] Adrien Young MD Unavailable [phone] Reason for Referral * Diagnostic Imaging (Routine) - Closed Specialty Diagnoses / Procedures Referred By Contac t Referred To Contact Diagnoses Lumbar stenosis without neurogenic claudication Procedures XR Spine Lumbar 2 or 3 Views Jayy Granger MD Phone: tel: fax: [facility] [address] [place] [address] Referral ID Status Reason Start Date Expiration Date Visits Re quested Visits Authorized [id number] Closed 11/11/2021 12/11/2022 1 1 Reason for Visit * Diagnostic Imaging (Routine) - Closed Specialty Diagnoses / Procedures Referred By Contac t Referred To Contact Diagnoses Lumbar stenosis without neurogenic claudication Procedures XR Spine Lumbar 2 or 3 Views Jayy Granger MD Phone: tel: fax: [facility] [address] [place] [address] Referral ID Status Reason Start Date Expiration Date Visits Re quested Visits Authorized [id number] Closed 11/11/2021 12/11/2022 1 1 Encounter Details Date Type Department Care Team (Latest Contact Info) Description 12/31/2021 8:57 AM CDT - 12/31/2021 11:59 PM CDT Hospital Encounter [facility] - Imaging [address] [place] [address] Lumbar stenosis without neurogenic claudication Discharge Disposition: Discharge to home or self [...] any clubs o r organizations such as amish groups, unions, fraternal or athletic groups, or [...] on file Legal Sex Male 12:56 PM HORTICULTURAL SPECIALTY GROWER FIELD Gender Identity Male 05/23/2021 12:08 PM HORTICULTURAL SPECIALTY GROWER FIELD Sexual Orientation Straight 05/23/2021 12 :08 PM HORTICULTURAL SPECIALTY GROWER FIELD documented as of this encounter Medications at Time of Discharge benralizumab (Fasenra) 30 mg/mL syringe Inject 1 mL (30 mg total) under the skin Gets every 2 month- next dose on 03/07/2024 12/12/2019 fluticasone propionate (FLONASE) 50 mcg/actuation nasal spray Administer 2 sprays into each nostril 2 (two) times a day ipratropium (ATROVENT) 42 mcg (0.06 %) nasal spray Administer 2 sprays into each nostril 2 (two) times a day rOPINIRole (REQUIP) 2 mg tablet Take 1 tablet (2 mg total) by mouth nightly albuterol HFA (PROVENTIL HFA,VENTOLIN HFA,PROAIR HFA) 90 mcg/actuation inhaler Inhale 2 puffs every 6 (six) hours as needed for wheezing 3 albuterol HFA (PROVENTIL HFA,VENTOLIN HFA,PROAIR HFA) 90 mcg/actuation inhaler 01/28/2021 4 benralizumab (Fasenra Pen) 30 mg/mL auto-injector 02/08/2021 4 budesonide-formot Veronica (SYMBICORT) 160-4.5 mcg/actuation inhaler Inhale 2 puffs 2 (two) times a day as needed Rinse mouth with water after use. Do not swallow. 3 budesonide-formot Veronica (Symbicort) 160-4.5 mcg/actuation inhaler 12/31/2020 4 cefTRIAXone (ROCEPHIN) syringeIndication s:Bone/Joint Infection Infuse 20 mL (2,000 mg total) into a venous catheter daily 11/06/2021 3 heparin sod,porcine/0.9 % NaCl (HEPARIN FLUSH IV)Indications:robert escalona picc Infuse 5 mL into a venous catheter daily. after last saline flush Indications: maintain picc 11/07/2021 3 lansoprazole (Prevacid) 30 mg capsule 1 capsule (30 mg total) 06/22/2015 4 LYRICA 150 mg capsule Take 2 capsules (300 mg total) by mouth daily 03/17/2018 3 [facility]bulizer [facility] See Instructions, 1 each, 1 each, Route to Pharmacy Electronically, [facility]/pharmacy #[id number], [id number], Instructions Replace Required Details, Supply 12/12/2019 4 nystatin 100,000 unit/mL suspension 02/19/2021 4 oxyCODONE (ROXICODONE) 5 mg immediate release tabletIndications :Pain Take 1 tablet (5 mg total) by mouth every 4 (four) hours as needed for pain 20 tablet 11/06/[address] (PROTONIX) 40 mg EC tabletIndications :Stress Ulcer Prophylaxis Take 1 tablet (40 mg total) by mouth daily 30 tablet 11/06/2021 3 pregabalin (LYRICA) 300 mg capsule Take 300 mg by mouth nightly 3 sodium chloride 0.9 %, flush, (SALINE FLUSH INJ)Indications:bryce lozada picc Infuse 10 mL into a venous catheter daily. before and after iv infusion Indications: maintain picc 11/14/2021 3 tiZANidine (ZANAFLEX) 4 mg tabletIndications :Muscle Spasm Take 1 tablet (4 mg total) by mouth every 6 (six) hours as needed for muscle spasms 90 tablet 2 10/11/2021 3 valACYclovir (VALTREX) 500 mg tablet Take 500 mg by mouth daily 3 valACYclovir (VALTREX) 500 mg tablet 1 tablet (500 mg total) 06/22/2015 4 vancomycin (VANCOCIN) 125 mg capsuleIndication s:Clostridioides difficile infection Take 1 capsule (125 mg total) by mouth daily 60 capsule 11/06/2021 3 documented as of this encounter Discharge Disposition Disposition Code Departure Means Destination Discharge to home or self care documented in this encounter Plan of Treatment Not on file documented as of this encounter Procedures Procedure Name Priority Date/Time Associated Diagnosis Comments XR SPINE LUMBAR 2 OR 3 VIEWS Schedule Routine, Read Routine (OP Routine) 12/31/2021 9:30 AM CDT Lumbar stenosis without neurogenic claudication documented in this encounter Results * XR Spine Lumbar 2 or 3 Views (12/31/2021 9:30 AM CDT) Anatomical Region Laterality Modality Spine N/A Computed Radiogr aphy 12/31/2021 10:2 7 AM CDT Impressions 12/31/2021 10:27 AM CDT Status post posterior decompression and instrumented fusion at L5-S1 with interbody disc device. ??Hardware is intact. Electronically signed by: Aryan Beasley MD Narrative 12/31/2021 10:27 AM CDT EXAMINATION: XR SPINE LUMBAR 2 OR 3 VIEWS HISTORY: Lumbar fusion follow-up COMPARISON: Radiograph's of the lumbar spine dated 11/13/2021. FINDINGS: 3 views of the lumbar spine are submitted for interpretation Unchanged posterior decompression and instrumented fusion of L5-S1 with discectomy and interbody device. ??Hardware appears intact without evidence of loosening. ??Unchanged mild dextrocurvature of the lumbar spine centered at L2-L3. ??Redemonstration of multilevel degenerative disc disease of the unfused levels of the lumbar spine most prominent at L4-L5. ??No evidence of fracture or compression deformity. ??Multilevel facet arthropathy. Procedure Note Aryan Beasley MD - 12/31/2021 EXAMINATION: XR SPINE LUMBAR 2 OR 3 VIEWS HISTORY: Lumbar fusion follow-up COMPARISON: Radiograph's of the lumbar spine dated 11/13/2021. FINDINGS: 3 views of the lumbar spine are submitted for interpretation Unchanged posterior decompression and instrumented fusion of L5-S1 with discectomy and interbody device. Hardware appears intact without evidence of loosening. Unchanged mild dextrocurvature of the lumbar spine centered at L2-L3. Redemonstration of multilevel degenerative disc disease of the unfused levels of the lumbar spine most prominent at L4-L5. No evidence of fracture or compression deformity. Multilevel facet arthropathy. IMPRESSION: Status post posterior decompression and instrumented fusion at L5-S1 with interbody disc device. Hardware is intact. Electronically signed by: Aryan Beasley MD Jayy Granger MD IMG XR PROCEDURES Final Resul t documented in this encounter Visit Diagnoses Diagnosis Lumbar stenosis without neurogenic claudication documented in this encounter Care Teams Can Top Setter Relationship Specialty Start Date End Date Anil Gupta MD [address] [place] [address] PCP - General Internal Medicine 04/19/21 Anil Gupta MD [address] [place] [address] Internal Medicine 04/19/21 Adrien Young MD [address] [facility] [address] [place] [address] Consulting Physician Infectious Diseases 11/06/21 documented as of this encounter
--- OUTSIDE RECORDS SUMMARY | 2024-03-19 07:28 | XMS_ITS | Encounter Summary ---
Author Organization [facility] Healthcare Address [address] [place] [address] Care Team Providers Care Net Developer Programmer Name Role Phone Anil Gupta MD Primary Care Provider [phone] Anil Gupta MD Unavailable [phone] Adrien Young MD Unavailable [phone] Milad Garcia MD Unavailable [phone] Encounter Details Date Type Department Care Team (Late st Contact Info) Description 03/02/2023 Orders Only [facility] Operating Room [address] [place] [address] [place] [address] [place] [address] Status post lumbar spinal fusion (Primary Dx) [...] How often do you attend chur or church services? 1 to 4 times per year 10/29/2021 Do you belong to any clubs o r organizations such as muslim groups, unions, fraternal or athletic groups, or [...] on file Legal Sex Male 12:56 PM RECORDING CLERK Gender Identity Male 05/23/2021 12:08 PM RECORDING CLERK Sexual Orientation Straight 05/23/2021 12 :08 PM RECORDING CLERK documented as of this encounter Plan of Treatment Not on file documented as of this encounter Visit Diagnoses Diagnosis Status post lumbar spinal fusion- Primary Arthrodesis status documented in this encounter Care Teams Net Developer Programmer Relationship Specialty Start Date End Date Ainl Gupta MD [address] [place] [address] PCP - General Internal Medicine 04/19/21 Anil Gupta MD [address] [place] [address] Internal Medicine 04/19/21 Adrien Young MD [address] [facility] [address] [place] [address] Consulting Physician Infectious Diseases 11/06/21 Milad Garcia MD [address] [facility] [address] [place] [address] Consulting Physician Orthopedic Surgery 03/02/23 documented as of this encounter
--- OUTSIDE RECORDS SUMMARY | 2024-03-19 07:28 | XMS_ITS | Encounter Summary ---
Author Organization [facility] Address [address] [facility] [address] [place] [address] Care Team Providers Care Analytics Leader Name Role Phone Anil Gupta MD Primary Care Provider [phone] Anil Gupta MD Unavailable [phone] Adrien Young MD Unavailable [phone] Reason for Referral * Diagnostic Imaging (Routine) - Closed Specialty Diagnoses / Procedures Referred By Contac t Referred To Contact Diagnoses Status post lumbar spinal fusion Procedures XR Spine Lumbar Ap Lat Flex Ext min 4 Views Milad Garcia MD Phone: tel: fax: [facility] Referral ID Status Reason Start Date Expiration Date Visits Re quested Visits Authorized [id number] Closed 09/16/2022 10/16/2023 1 1 Reason for Visit * Reason Comments Post-op Follow-up Encounter Details Date Type Department Care Team (Latest Contact Info) Description 09/16/2022 10:30 AM CDT Office Visit [facility] [address] [facility] [address] [place] [id number] [place] [address] [place] [address] Status post lumbar spinal fusion (Primary Dx); Lumbar radiculopathy Social History Tobacco Use Types Packs/Day Years [...] How often do you attend chur or episcopal services? 1 to 4 times per year 10/29/2021 Do you belong to any clubs o r organizations such as restoration groups, unions, fraternal or athletic groups, or [...] on file Legal Sex Male 12:56 PM SQUARE CUTTER Gender Identity Male 05/23/2021 12:08 PM SQUARE CUTTER Sexual Orientation Straight 05/23/2021 12 :08 PM SQUARE CUTTER documented as of this encounter Last Filed Vital Signs Vital Sign Reading Time Taken Comments Blood Pressure 109/73 09/16/2022 10:39 AM CDT Pulse 64 09/16/2022 10:39 AM CDT Temperature - - Respiratory Rate 14 09/16/2022 10:39 AM CDT Oxygen Saturation - - Inhaled Oxygen Concentration - - Weight - - Height - - Body Mass Index - - documented in this encounter Progress Notes * Lacy Kuhn RN - 09/16/2022 10:30 AM CDT RN PROGRESS NOTE - FOLLOW UP S/P L5-S1 PSF with TLIF - 10/11/21 S/P I&D - 10/29/22 and 11/03/21 - Serratia infection Last seen Mar - Ongoing abx per Dr. Young Overall healing nicely, incision healed Early August - pt called with c/o increased pain issues - R>L - lb with bending Had been doing very well overall - occasional twinge of pain here and there but nothing major About a month ago - pt started with increased back pain issues with certain movements or actions Stabbing like pain C/o pain to surgical area into right posterior hip into right lateral hip - nothing further down leg Difficulty lying on right side due to pain States at rest pain is a 2-3 - with movement pain shooting/stabbing into right low back mostly but can extend into hip Notes 1 instance of right leg giving out when going down stairs Denies left sided issues - all left sided radicular symptoms had resolved Tingling to lower legs with raising leg (ie. When getting dressed in morning lifting legs) - has been there on/off since initial surgery Using Tizanidine, Ibuprofen Did have Medrol Pack from PCP - did help with the pain somewhat but now pain is returning to where it was * Milad Garcia MD - 09/16/2022 10:30 AM CDT ESTABLISHED PATIENT VISIT INTERIM HISTORY Douglas is a very pleasant 72-year-old status post L5-S1 posterior spinal fusion decompression withTLIF on 10/11/2021 complicated by postoperative infection with Serratia s/p irrigation and debridement on 10/29/2021 and repeat debridement on 11/03/2021. He has been on antibiotics now for the past 6 months. He is seeing Dr. Young later today to discuss antibiotics. 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 Overall, he seems to be doing okay. Up to about a month ago he was doing great and then he started sharma ving back pain as well as right hip pain. Pain in the right hip radiates from the back to the lateral thigh near the greater trochanteric bursa and then down lateral part of the leg, does not past the knee. He can not sleep on the right side because of this pain. He is tender at the greater trochanteric bursa on the right side. He also has pain in his back localized to slightly above his incision. PHYSICAL EXAMINATION Incision is perfectly healed. He has 5/5 strength in bilateral lower extremities. He walks with a normal gait. Tenderness to palpation right greater trochanteric bursa. REVIEW OF X-RAY/STUDIES AP, lateral, flexion, extension views of lumbar spine were obtained in clinic today and personally reviewed by me. These radiographs demonstrate a mild coronal deformity developing cranial to his L5-S1 fusion. Instrumentation in good position at L5-S1. There is facet arthropathy right greater than left in the lumbar spine which is seen very well on the AP radiograph at L4-5 for instance. No evidence of spondylolisthesis at L4-5 above his previous fusion. He does have exaggerated lumbar lordosisand curvature of his spine. He does appear to be fused at L5-S1 now. ASSESSMENT AND PLAN Douglas is a very pleasant 72-year-old status post L5-S1 posterior spinal fusion decompression withTLIF on 10/11/2021 complicated by postoperative infection with Serratia s/p irrigation and debridement on 10/29/2021 and repeat debridement on 11/03/2021. Overall he seems to be healing up pretty nicely. He was doing well until about a month ago and now he is had an acute exacerbation of back pain as well as right hip pain. I think he has 2 things going on. 1. 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 Additionally he is tender to the greater trochanteric bursa, most likely has greater trochanteric bursitis which is irritating his iliotibial band. We are going to get him started with physical therapy at [facility] to work on his back and his legs simultaneously. Given his infection he is probably not a great candidate for injectionsin the lumbar spine or even in the greater trochanteric bursa however if he is doing well over a year out from his surgery in October when we talked to him I may reach out and see if he can get a greater trochanteric bursa injection if his pain has not resolved. I will see him in a couple of months.All questions were answered. Milad Garcia M.D. [facility] This document was created using speech voice [...] office for clarification. documented in this encounter Plan of Treatment [...] appear to be fused at L5-S1 now. Milad Garcia MD IMG XR PROCEDURES Final Result documented in this encounter Visit Diagnoses Diagnosis Status post lumbar spinal fusion- Primary Arthrodesis status Lumbar radiculopathy Thoracic or lumbosacral neuritis or radiculitis, unspecified documented in this encounter Care Teams Analytics Leader Relationship Specialty Start Date End Date Anil Gupta MD [address] [place] [address] PCP - General Internal Medicine 04/19/21 Anil Gupta MD [address] [place] [address] Internal Medicine 04/19/21 Adrien Young MD [address] [facility] [address] [place] [address] Consulting Physician Infectious Diseases 11/06/21 documented as of this encounter
--- OUTSIDE RECORDS SUMMARY | 2024-03-19 07:28 | XMS_ITS | Encounter Summary ---
Author Organization [facility] Healthcare Address [address] [place] [address] Care Team Providers Care Stockbroker Name Role Phone Anil Gupta MD Primary Care Provider [phone] Anil Gupta MD Unavailable Adrien Young MD Unavailable [phone] Encounter Details Date Type Department Care Team (Late st Contact Info) Description 02/16/2023 Orders Only [facility] Neurology [address] [place] [phone] Campbell Araya MD [address] [place] [id number] Paresthesia of skin (Primary Dx) Social History Tobacco Use Types [...] often do you attend chur ch or druze services? 1 to 4 times [...] on file Legal Sex Male 12:56 PM COLOR TESTER Gender Identity Male 05/23/2021 12:08 PM COLOR TESTER Sexual Orientation Straight 05/23/2021 12 :08 PM COLOR TESTER documented as of this encounter Plan of Treatment Not on file documented as of this encounter Visit Diagnoses Diagnosis Paresthesia of skin- Primary documented in this encounter Care Teams Stockbroker Relationship Specialty Start Date End Date Anil Gupta MD [address] [place] [address] PCP - General Internal Medicine 04/19/21 Anil Gupta MD [address] [place] [address] Internal Medicine 04/19/21 Adrien Young MD [address] [facility] [address] [address] Consulting Physician Infectious Diseases 11/06/21 documented as of this encounter
--- OUTSIDE RECORDS SUMMARY | 2024-03-19 07:28 | XMS_ITS | Encounter Summary ---
Author Organization [facility] Medical Group Address [address] [place] [address] Care Team Providers Care Director Of Labor Relations Name Role Phone Anil Gupta MD Primary Care Provider Anil Gupta MD Unavailable [phone] Adrien Young MD Unavailable [phone] Reason for Visit * Reason Comments Follow-up Encounter Details Date Type Department Care Team (Late st Contact Info) Description 04/15/2022 10:30 AM DIESEL POWER SHOVEL OPERATOR Office Visit [facility] [address] [place] [address] [place] [address] [place] [id number] Status post lumbar spinal fusion (Primary Dx) [...] How often do you attend chur or latter-day services? 1 to 4 times per year [...] on file Legal Sex Male 12:56 PM DIESEL POWER SHOVEL OPERATOR Gender Identity Male 05/23/2021 12:08 PM DIESEL POWER SHOVEL OPERATOR Sexual Orientation Straight 05/23/2021 12 :08 PM DIESEL POWER SHOVEL OPERATOR documented as of this encounter Last Filed Vital Signs Vital Sign Reading Time Taken Comments Blood Pressure 120/81 04/15/2022 10:59 AM DIESEL POWER SHOVEL OPERATOR Pulse 67 04/15/2022 10:59 AM DIESEL POWER SHOVEL OPERATOR Temperature - - Respiratory Rate 14 04/15/2022 10:59 AM DIESEL POWER SHOVEL OPERATOR Oxygen Saturation - - Inhaled Oxygen Concentration - - Weight - - Height - - Body Mass Index - - documented in this encounter Ordered Prescriptions Prescription Sig Dispense Quantity Refills Last Filled Start Date End Date tiZANidine (ZANAFLEX) 2 mg tablet Take 1-2 tablets (2-4 mg total) by mouth every 8 (eight) hours as needed for muscle spasms 20 tablet 1 04/15/2022 3 documented in this encounter Progress Notes * Lacy Kuhn RN - 04/15/2022 10:30 AM CST RN PROGRESS NOTE - FOLLOW UP S/P L5-S1 TLIF 10/11/21 ([place]) Followed by 2 I&D's on 10/29/21 (Dr. Sheets) and 11/03/21 (Dr. Garcia) *Serratia which is an anaerobic Gram-negative barbara in the Pseudomonas family. He has a history of multiple Pseudomonas lung infections. He is being followed by Dr. Young/Infectious Disease. Last seen Dec by Jazmin - doing well overall, occasional incision pain - leg pain resolved, someLeft SI pain into left hip Abx x2 with Dr. Young Was to increase activity - max 20 lb limit Recently finished antibiotics - is to f/u with Dr. Young after this visit to see if add'l abx are needed Resolution of pain down right hip/leg - still deals with occasional right sided back discomfort - ie. Today dealing with it Improved left SI pain but still flares up with certain movement - lb after turning and tossing during the night Sent in rx for muscle relaxer for patient EL POWER SHOVEL OPERATOR * Milad Garcia MD - 04/15/2022 10:30 AM CST ESTABLISHED PATIENT VISIT INTERIM HISTORY Douglas is [...] wants to make sure as well ashis functional tester that he does not become resistant to Levaquin for lung infections in the future. He has some low back pain worse with twisting and flexing forward. Nothing out of the or narrowing. Lauro sharp has been quite active. He has got out and chop wood with a chain saw. 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 He has 5/5 strength in bilateral lower extremities. He walks with a normal gait. REVIEW OF X-RAY/STUDIES Radiographs demonstrate instrumentation in good position at L5-S1 with a TLIF cage in place. I do not appreciate any lucencies around the screws. Difficult to tell whether he is fusing or not yet. ASSESSMENT AND PLAN Douglas is a very pleasant 72-year-old status post L5-S1 posterior spinal fusion decompression withTLIF on 10/11/2021 complicated by postoperative infection with Serratia s/p irrigation and debridement on 10/29/2021 and repeat debridement on 11/03/2021. Overall he seems to be healing up pretty nicely. His incision is totally healed. I am okay with him coming off antibiotics at this time, I will leave that up to Dr. Young. He can decrease his restrictions at this time point and I will plan on seeing him back in 6 months. All questions were answered. Milad Garcia M.D. [facility] This document was created using speech [...] addressed to the provider's office for clarification. EL POWER SHOVEL OPERATOR documented in this encounter Plan of Treatment Not on file documented as of this encounter Visit Diagnoses Diagnosis Status post lumbar spinal fusion- Primary Arthrodesis status documented in this encounter Discontinued Medications Medication Sig Discontinue Reason Start Date End Da te cefTRIAXone (ROCEPHIN) syringeIndications:Bone/ Joint Infection Infuse 20 mL (2,000 mg total) into a venous catheter daily 11/06/2021 04/15/2022 heparin sod,porcine/0.9 % NaCl (HEPARIN FLUSH IV)Indications:maintain picc Infuse 5 mL into a venous catheter daily. after last saline flush Indications: maintain picc 11/07/2021 04/15/2022 oxyCODONE (ROXICODONE) 5 mg immediate release tabletIndications:Pain Take 1 tablet (5 mg total) by mouth every 4 (four) hours as needed for pain 11/06/2021 04/15/[address] (PROTONIX) 40 mg EC tabletIndications:Stress Ulcer Prophylaxis Take 1 tablet (40 mg total) by mouth daily 11/06/2021 04/15/2022 tiZANidine (ZANAFLEX) 4 mg tabletIndications:Muscle Spasm Take 1 tablet (4 mg total) by mouth every 6 (six) hours as needed for muscle spasms 10/11/2021 04/15/2022 sodium chloride 0.9 %, flush, (SALINE FLUSH INJ)Indications:maintain picc Infuse 10 mL into a venous catheter daily. before and after iv infusion Indications: maintain picc 11/14/2021 04/15/2022 pregabalin (LYRICA) 300 mg capsule Take 300 mg by mouth nightly 04/15/2022 valACYclovir (VALTREX) 500 mg tablet Take 500 mg by mouth daily 04/15/2022 vancomycin (VANCOCIN) 125 mg capsuleIndications:Clost ridioides difficile infection Take 1 capsule (125 mg total) by mouth daily 11/06/2021 04/15/2022 albuterol HFA (PROVENTIL HFA,VENTOLIN HFA,PROAIR HFA) 90 mcg/actuation inhaler Inhale 2 puffs every 6 (six) hours as needed for wheezing 04/15/2022 budesonide-formoteroL (SYMBICORT) 160-4.5 mcg/actuation inhaler Inhale 2 puffs 2 (two) times a day as needed Rinse mouth with water after use. Do not swallow. 04/15/2022 documented as of this encounter Care Teams Director Of Labor Relations Relationship Specialty Start Date End Date Anil Gupta MD [address] [place], [place] [id number] PCP - General Internal Medicine 04/19/21 Anil Gupta MD [address] [place] [address] Internal Medicine 04/19/21 Adrien Young MD [address] [place] [address] Consulting Physician Infectious Diseases 11/06/21 documented as of this encounter
--- OUTSIDE RECORDS SUMMARY | 2024-03-19 07:28 | XMS_ITS | Encounter Summary ---
Author Organization [facility] Medical Group Address [address] [place] [address] Care Team Providers Care Labor Trainer Name Role Phone Anil Gupta MD Primary Care Provider [phone] Anil Gupta MD Unavailable [phone] Adrien Young MD Unavailable [phone] Reason for Referral * Diagnostic Imaging (Routine) - Closed Specialty Diagnoses / Procedures Referred By Contac t Referred To Contact Diagnoses Status post lumbar spinal fusion Procedures XR Spine Lumbar Ap Lat Flex Ext min 4 Views Milad Garcia MD Phone: tel: fax: [facility] Medical [facility] Referral ID Status Reason Start Date Expiration Date Visits Re quested Visits Authorized [id number] Closed 12/02/2022 01/01/2024 1 1 Reason for Visit * Reason Comments Follow-up Encounter Details Date Type Department Care Team (Late st Contact Info) Description 12/02/2022 10:15 AM CDT Office Visit [facility] [address] [place] [id number] [place] [address] [place] [address] Status post lumbar spinal fusion (Primary Dx) [...] How often do you attend chur or bahai services? 1 to 4 times [...] on file Legal Sex Male 12:56 PM COUNTY ASSESSOR Gender Identity Male 05/23/2021 12:08 PM COUNTY ASSESSOR Sexual Orientation Straight 05/23/2021 12 :08 PM COUNTY ASSESSOR documented as of this encounter Last Filed Vital Signs Vital Sign Reading Time Taken Comments Blood Pressure 121/76 12/02/2022 10:16 AM CDT Pulse 60 12/02/2022 10:16 AM CDT Temperature - - Respiratory Rate 14 12/02/2022 10:16 AM CDT Oxygen Saturation - - Inhaled Oxygen Concentration - - Weight - - Height - - Body Mass Index - - documented in this encounter Progress Notes * Keisha Calhoun RN - 12/02/2022 10:15 AM CDT RN PROGRESS NOTE - FOLLOW UP S/P L5-S1 PSF with TLIF - 10/11/21 S/P I&D - 10/29/22 and 11/03/21 - Serratia infection Last seen 09/16/2022 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 Garcia is improving, now the left hip is giving him issues Right hip with standing the right hip will somewhat give out and have a sensation of feeling numb Denies N/T in the legs bilaterally Posterior buttock pain the and down posterior thigh on the left Denies weakness in the legs Patient going to PT-she kind of thought it could be tendonitis rather than bursitis He is no longer going but would like to go again Taking tizanidine as night- looking to possibly stop * Milad Garcia MD - 12/02/2022 10:15 AM CDT ESTABLISHED PATIENT VISIT INTERIM HISTORY [...] wants to make sure as well ashis papier mache molder that he does not become resistant to Levaquin for lung infections in the future. Overall, he seems to be doing okay. Right hip buttock pain went away, was working with physical therapy thinks it is more tendinitis than anything else. It unfortunately now is on the left side, he would like to more therapy for this. He has no back pain essentially. PHYSICAL EXAMINATION Incision is perfectly healed. He has 5/5 strength in bilateral lower extremities. He walks with a normal gait. REVIEW OF X-RAY/STUDIES AP, lateral, flexion, extension [...] appear to be fused at L5-S1 now. No significant changes from previous radiographs, alignment essentially the same. ASSESSMENT AND PLAN Douglas is a very pleasant 72-year-old status post L5-S1 posterior spinal fusion decompression withTLIF on 10/11/2021 complicated by postoperative infection with Serratia s/p irrigation and debridement on 10/29/2021 and repeat debridement on 11/03/2021. Overall he seems to be healing up pretty nicely. I am happy with how he is doing. We are going to give him an order for physical therapy on the left lower extremity now for his piriformis syndrome/hamstring tendinitis. He can follow up with me in a year. Milad Garcia M.D. [facility] This document was created using speech voice [...] from previous radiographs, alignment essentially the same. us Milad Garcia MD IMG XR PROCEDURES Final Result documented in this encounter Visit Diagnoses Diagnosis Status post lumbar spinal fusion- Primary Arthrodesis status documented in this encounter Care Teams Labor Trainer Relationship Specialty Start Date End Date Anil Gupta MD [address] [place] [address] INTERNAL MED[facility]INE [place], [place] [id number] PCP - General Internal Medicine 04/19/21 Ainl Gupta MD [address] [place] [address] Internal Medicine 04/19/21 Adrien Young MD [address] [facility] [address] [place] [address] Consulting Physician Infectious Diseases 11/06/21 documented as of this encounter
--- OUTSIDE RECORDS SUMMARY | 2024-03-19 07:28 | XMS_ITS | Encounter Summary ---
Author Organization [facility] Healthcare Address [address] [place] [address] Care Team Providers Care Senior Linux Engineer Name Role Phone Anil Gupta MD Primary Care Provider [phone] Anil Gupta MD Unavailable [phone] Adrien Young MD Unavailable [phone] Milad Garcia MD Unavailable [phone] Reason for Visit * Reason Comments Follow-up Encounter Details Date Type Department Care Team (Late st Contact Info) Description 05/04/2023 9:30 AM RETAIL ADVERTISING EXECUTIVE Office Visit [facility] Neurology [address] [place] [phone] Campbell Araya MD [address] [place] [phone] Polyneuropathy (Primary Dx) Social History Tobacco Use [...] week 10/29/2021 How often do you attend [facility] or spiritism services? 1 to 4 times per year [...] file Legal Sex Male 12:56 PM RETAIL ADVERTISING EXECUTIVE Gender Identity Male 05/23/2021 12:08 PM RETAIL ADVERTISING EXECUTIVE Sexual Orientation Straight 05/23/2021 12 :08 PM RETAIL ADVERTISING EXECUTIVE documented as of this encounter Last Filed Vital Signs Vital Sign Reading Time Taken Comments Blood Pressure 110/68 05/04/2023 9:32 AM RETAIL ADVERTISING EXECUTIVE Pulse 78 05/04/2023 9:32 AM RETAIL ADVERTISING EXECUTIVE Temperature - - Respiratory Rate - - Oxygen Saturation 99% 05/04/2023 9:32 AM RETAIL ADVERTISING EXECUTIVE Inhaled Oxygen Concentration - - Weight 88.9 kg (196 lb) 05/04/2023 9:32 AM RETAIL ADVERTISING EXECUTIVE Height 182.9 cm (6') 05/04/2023 9:32 AM RETAIL ADVERTISING EXECUTIVE Body Mass Index 26.58 05/04/2023 9:32 AM RETAIL ADVERTISING EXECUTIVE documented in this encounter Ordered Prescriptions Prescription Sig Dispense Quantity Refills Last Filled Start Date End Date pregabalin (LYRICA) 150 mg capsule Take 1 capsule (150 mg total) by mouth 3 (three) times a day 270 capsule 1 05/04/[address] (CYMBALTA) 30 mg capsule Take 1 capsule (30 mg total) by mouth 2 (two) times a day 180 capsule 1 05/04/2023 4 documented in this encounter Progress Notes * Campbell Araya MD - 05/04/2023 9:30 AM CST Images from the original note were not included. Patient ID: Douglas Horn is a 73 y.o. male Chief Complaint: neuropathy History of Present Illness: This is a 73-year-old male who presents as a follow-up regarding peripheral neuropathy. I last saw him in January 2023 at which time he reported having neuropathy for the last 10 years. 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 When I last saw him he was taking Lyrica 150 mg either 2 or 3 times daily. Given that he continued to have breakthrough pain on the Lyrica, I added on Cymbalta [address] daily[address] He states that since he last saw me his pain has been well controlled. He does have occasional breakthrough pain if he stands for long periods of time. However he also tells me that he tried to come off of his Lyrica but that a few days after trying to do this his pain returned. He does say that he would ultimately like to come off the Lyrica if able. Review of Systems As above. All other systems were reviewed and found to be normal or non-contributory. Current Outpatient Medications Medication Sig Dispense Refill DULoxetine DR (CYMBALTA) 30 mg capsule Take 1 capsule (30 mg total) by mouth daily 30 capsule 11 finasteride (PROSCAR) 5 mg tablet Take 1 tablet (5 mg total) by mouth daily fluticasone propionate (FLONASE) 50 mcg/actuation nasal spray Administer 4 sprays into each nostrildaily ipratropium (ATROVENT) 42 mcg (0.06 %) nasal spray Administer 2 sprays into each nostril 2 (two) times a day nystatin cream Apply topically 2 (two) times a day pregabalin (LYRICA) 150 mg capsule Take 1 capsule (150 mg total) by mouth 2 (two) times a day 60 capsule 5 rOPINIRole (REQUIP) 2 mg tablet Take 1 tablet (2 mg total) by mouth nightly tiZANidine (ZANAFLEX) 2 mg tablet TAKE 1-2 TABLETS (2-4 MG TOTAL) BY MOUTH EVERY 8 HOURS NEEDED FOR MUSCLE SPASMS 90 tablet 1 albuterol HFA (PROVENTIL HFA,VENTOLIN HFA,PROAIR HFA) 90 [...] inhaler (Patient not taking: Reported on 02/12/2023) famotidine (PEPCID) 20 mg tablet Take 1 tablet (20 mg total) by mouth 2 (two) times a day (Patient not taking: Reported on 02/12/2023) lansoprazole (Prevacid) 30 mg capsule 1 capsule (30 mg total) (Patient not taking: Reported on 02/12/2023) levoFLOXacin (LEVAQUIN) 500 mg tablet TAKE 1 TABLET BY MOUTH EVERY DAY FOR 10 DAYS (Patient not taking: Reported on 02/12/2023) mupirocin (BACTROBAN) 2 % ointment PLEASE SEE ATTACHED FOR DETAILED DIRECTIONS (Patient not taking:Reported on 02/12/2023) nebulizer accessories [facility] [place] See Instructions, 1 each, 1 each, Route to Pharmacy Electronically, [facility]/pharmacy #[id number], [id number], Instructions Replace Required Details, Supply (Patient not taking: Reported on 02/12/2023) nystatin 100,000 unit/mL suspension (Patient not taking: Reported on 02/12/2023) ondansetron ODT (ZOFRAN-ODT) 8 mg disintegrating tablet TAKE 1 TABLET BY MOUTH FOUR TIMES DAILY NEEDED FOR NAUSEA AND VOMITING (Patient not taking: Reported on 02/12/2023) sulfamethoxazole-trimethoprim (BACTRIM DS) 800-160 mg per tablet Take 1 tablet by mouth 2 (two) times a day (Patient not taking: Reported on 05/04/2023) valACYclovir (VALTREX) 500 mg tablet 1 tablet (500 mg total) (Patient not taking: Reported on 02/12/2023) No current facility-administered medications for this visit. Physical Exam Vitals BP 110/68 (BP Location: Right arm, Patient Position: Sitting) Pulse 78 Ht 182.9 cm (6') Wt 88.9 kg (196 lb) SpO2 99% BMI 26.58 kg/m?? Assessments and Plan 1. Polyneuropathy His neuropathy pain is currently well controlled on Lyrica 150 mg 3 times daily and Cymbalta DR 30 mg daily. He does feel like since starting the Cymbalta that things have improved for him. He tells me that he tried coming off the Lyrica but after reducing his dose on his own the pain returned. I discussed that we could increase his Cymbalta DR to 30 mg twice daily and that if he gives this a fewweeks he can try reducing the dose of his Lyrica from 3 times daily to 2 times daily. I will plan on seeing him again in 3 months and if he is doing well on the reduced dose of Lyrica then we can consider decreasing it further. Campbell Araya MD Neurology cc:Anil Gupta MD [place] ADVERTISING EXECUTIVE documented in this encounter Plan of Treatment Not on file documented as of this encounter Visit Diagnoses Diagnosis Polyneuropathy- Primary Unspecified hereditary and idiopathic peripheral neuropathy documented in this encounter Discontinued Medications Medication Sig Discontinue Reason Start Date End Da te DULoxetine DR (CYMBALTA) 30 mg capsule Take 1 capsule (30 mg total) by mouth daily Reorder 02/12/2023 05/04/2023 pregabalin (LYRICA) 150 mg capsule Take 1 capsule (150 mg total) by mouth 2 (two) times a day Reorder 03/09/2023 05/04/2023 documented as of this encounter Historical Medications * This list may reflect changes made after this encounter. finasteride (PROSCAR) 5 mg tablet Take 1 tablet (5 mg total) by mouth daily 03/13/2023 nystatin cream Apply topically 2 (two) times a day 04/28/2023 4 sulfamethoxazole -trimethoprim (BACTRIM DS) 800-160 mg per tablet Take 1 tablet by mouth 2 (two) times a day 03/18/2023 4 amoxicillin (AMOXIL) 875 mg tablet TAKE ONE TABLET BY MOUTH EVERY 12 HOURS FOR 7 DAYS 02/16/2023 4 added in this encounter Care Teams Senior Linux Engineer Relationship Specialty Start Date End Date Anil Gupta MD [address] [email or web address] [address] [place] [address] PCP - General Internal Medicine 04/19/21 Anil Gupta MD [address] [place] [address] Internal Medicine 04/19/21 Adrien Young MD [address] [id number] Consulting Physician Infectious Diseases 11/06/21 Milad Garcia MD [address] [facility] [[email or web address] [address] [address] Consulting Physician Orthopedic Surgery 03/02/23 documented as of this encounter
--- OUTSIDE RECORDS SUMMARY | 2024-03-19 07:28 | XMS_ITS | Encounter Summary ---
Author Organization [facility] Address [address] [place] [address] Care Team Providers Care Warhead Maintenance Specialist Name Role Phone Anil Gupta MD Primary Care Provider [phone] Anil Gupta MD Unavailable [phone] Adrien Young MD Unavailable [phone] Encounter Details Date Type Department Care Team (Latest Contact Info) Description 12/10/2021 10:55 AM CDT - 12/10/2021 11:59 PM CDT Hospital Encounter [address] [address] Discharge Disposition: Discharge to home or self [...] any clubs o r organizations such as druze groups, unions, fraternal or athletic groups, or [...] on file Legal Sex Male 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 after last saline flush Indications: maintain picc 11/07/2021 3 lansoprazole (Prevacid) 30 mg capsule 1 capsule (30 mg total) 06/22/2015 4 LYRICA 150 mg capsule Take 2 capsules (300 mg total) by mouth daily 03/17/2018 3 nebulizer accessories [facility] See Instructions, 1 each, 1 each, Route to Pharmacy Electronically, [facility]/pharmacy #[id number], [id number], Instructions Replace Required Details, Supply 12/12/2019 [...] Procedure Name Priority Date/Time Associated Diagnosis Comments EGFR STAT 12/10/2021 11:00 AM CDT DIFFERENTIAL AUTO STAT 12/10/2021 11: 00 AM CDT CBC WITH AUTO DIFFERENTIAL STAT 12/10/2021 11:00 AM CDT CRP (ACUTE PHASE) STAT 12/10/2021 11: 00 AM CDT HEPATIC FUNCTION PANEL STAT 12/10/2021 11:00 AM CDT BASIC METABOLIC PANEL STAT 12/10/2021 11:00 AM CDT documented in this encounter Results * Hepatic function panel (12/10/2021 11:00 AM CDT) Bilirubin, total 0.3 0.1 - 1.2 mg/dL [facility] Bilirubin, direct <0.2 0.1 - 0.3 mg/dL [facility] Protein, pl 7.0 6.5 - 8.5 g/dL [facility] Albumin 4.1 3.5 - 5.0 g/dL [facility] Alk phos 94 40 - 130 Units/L [facility] ALT 24 7 - 55 Units/L [facility] AST 34 10 - 50 Units/L [facility] Blood 12/10/2021 11:0 0 AM CDT 12/10/2021 1:29 PM CDT us Adrien Young MD LAB BLOOD ORDERABLES Final Re sult [facility] [place] [address] * (ABNORMAL) eGFR (12/10/2021 11:00 AM CDT) [facility] eGFR 86(L) 90 - 130 mL/min/1. 73 m2 [facility] Comment: Interpretive Data Reference Interval Normal ?>/= 90 mL/min/1.73m2 Mildly decreased* ? 60 - 89 mL/min/1.73m2 Mildly to moderately decreased ?45 - 59 mL/min/1.73m2 Moderately to severely decreased ??30 - 44 mL/min/1.73m2 Severely decreased ?15 - 29 mL/min/1.73m2 Kidney Failure ?< 15 ??mL/min/1.73m2 *Relative to young adult level Estimated glomerular filtration rate is determined by the 2020 CKD-EPI equation recommended by the National Kidney Foundation (A Unifying Approach to GFR Estimation: Recommendations of the NKF-ASK Task Force on Reassessing the Inclusion of Race in Diagnosing Kidney Disease, JASN 2020). The CKD-EPI equation should not be used for patients with unstable renal function and has not been validated in children and those over 70. Current interpretive data was last reviewed 2021. Blood 12/10/2021 11:0 0 AM CDT 12/10/2021 1:29 PM CDT Adrien Young MD LAB BLOOD ORDERABLES Final Re sult [facility] [place] [address] * Differential, auto (12/10/2021 11:00 AM CDT) Neutrophil abs 3.0 1.7 - 6.5 K/cumm [facility] Imm gran abs 0.0 0.0 - 0.1 K/cumm [facility] Lymphocyte abs 1.0 0.8 - 3.3 K/cumm [facility] Monocyte abs 0.6 0.2 - 0.8 K/cumm [facility] Eosinophil abs 0.0 0.0 - 0.5 K/cumm [facility] Basophil abs 0.0 0.0 - 0.1 K/cumm [facility] Neutrophil pct 65.6 % [facility] Comment: Interpretive Data Percent cell count reference ranges are not reported, since discordance with absolute values may lead to misinterpretation of CBC data. Current Interpretive Data was last revised on 2017. Imm gran pct 0.2 % [facility] Comment: Interpretive Data Percent cell count reference ranges are not reported, since discordance with absolute values may lead to misinterpretation of CBC data. Current Interpretive Data was last revised on 2017. Lymphocyte pct 22.1 % [facility] Comment: Interpretive Data Percent cell count reference ranges are not reported, since discordance with absolute values may lead to misinterpretation of CBC data. Current Interpretive Data was last revised on 2017. Monocyte pct 12.1 % [facility] Comment: Interpretive Data Percent cell count reference ranges are not reported, since discordance with absolute values may lead to misinterpretation of CBC data. Current Interpretive Data was last revised on 2017. Eosinophil pct 0.0 % [facility] Comment: Interpretive Data Percent cell count reference ranges are not reported, since discordance with absolute values may lead to misinterpretation of CBC data. Current Interpretive Data was last revised on 2017. Basophil pct 0.0 % [facility] Comment: Interpretive Data Percent cell count reference ranges are not reported, since discordance with absolute values may lead to misinterpretation of CBC data. Current Interpretive Data was last revised on 2017. Blood 12/10/2021 11:0 0 AM CDT 12/10/2021 1:15 PM CDT us Adrien Young MD LAB BLOOD ORDERABLES Final Re sult Performing Organization Address [facility] Co de Phone Number [facility] Department [place] [employer] [place] [address] * CRP (acute phase) (12/10/2021 11:00 AM CDT) CRP 4.6 <=10.0 mg/L [facility] Blood 12/10/2021 11:0 0 AM CDT 12/10/2021 1:15 PM CDT Adrien Young MD LAB BLOOD ORDERABLES Final Re sult Performing Organization Address [facility] de Phone Number [facility] [place] [employer] [place] [address] * (ABNORMAL) CBC with auto differential (12/10/2021 11:00 AM CDT) WBC 4.6 3.8 - 9.9 K/cumm [facility] Hgb 10.9(L) 13.0 - 17.5 g/dL [facility] Hct 34.9(L) 38.9 - 50.3 % [facility] Plt 296 150 - 400 K/cumm [facility] MPV 9.1 9.1 - 12.3 fL [facility] RBC 3.91(L) 4.30 - 5.80 M/cumm [facility] MCV 89.3 81.3 - 96.4 fL [facility] MCH 27.9 27.1 - 33.3 pg [facility] MCHC 31.2(L) 32.3 - 35.7 g/dL [facility] RDW CV 12.9 11.1 - 14.9 % [facility] RDW SD 42.0 35.7 - 48.1 fL [facility] NRBC abs 0.00 0.00 - 0.01 K/cumm [facility] Blood 12/10/2021 11:0 0 AM CDT 12/10/2021 1:15 PM CDT us Adrien Young MD LAB BLOOD ORDERABLES Final Re sult [facility] Department [place] [address] * Basic metabolic panel (12/10/2021 11:00 AM CDT) Sodium 135 135 - 145 mmol/L [facility] Potassium, pl 4.2 3.3 - 4.9 mmol/L [facility] Chloride 99 97 - 110 mmol/L [facility] CO2 26 22 - 32 mmol/L [facility] Anion gap 10 2 - 15 mmol/L [facility] BUN 20 8 - 25 mg/dL [facility] Creatinine 0.95 0.80 - 1.30 mg/dL [facility] Glucose 71 70 - 199 mg/dL [facility] Comment: Interpretive Data Fasting glucose >/= 126 mg/dl is diagnostic for diabetes. ?? Fasting is defined as no caloric intake for at least 8 hours. Fasting glucose between 100 mg/dl to 125 mg/dl is diagnostic of prediabetes. In a patient with classic symptoms of hyperglycemia or hyperglycemic crisis, a random glucose >/= 200 mg/dl is diagnostic for diabetes. In the absence of unequivocal hyperglycemia, results should be confirmed by repeat testing. The classification and Diagnosis of Diabetes Diabetes Care 2017;40 (Suppl. 1):S11. Current interpretive data was last revised 2017. Calcium 9.2 8.5 - 10.3 mg/dL [facility] Blood 12/10/2021 11:0 0 AM CDT 12/10/2021 1:15 PM CDT us Adrien Young MD LAB BLOOD ORDERABLES Final Re sult [facility] Department [place] [address] documented in this encounter Visit Diagnoses Not on filedocumented in this encounter Care Teams Warhead Maintenance Specialist Relationship Specialty Start Date End Date Anil Gupta MD [address] [place] [address] PCP - General Internal Medicine 04/19/21 Anil Gupta MD [address] [place] [address] Internal Medicine 04/19/21 Adrien Young MD [address] [facility] [address] [place] [address] Consulting Physician Infectious Diseases 11/06/21 documented as of this encounter
--- OUTSIDE RECORDS SUMMARY | 2024-03-19 07:28 | XMS_ITS | Encounter Summary ---
Author Organization [facility] Address [address] [place] [address] Care Team Providers Care Search Consultant Name Role Phone Anil Gupta MD Primary Care Provider [phone] Anil Gupta MD Unavailable [phone] Adrien Young MD Unavailable [phone] Reason for Visit * Reason Comments New Patient POLYNEUROPATHY * Consultation (Routine) - Closed Specialty Diagnoses / Procedures Referred By Contac t Referred To Contact Neurology Diagnoses Polyneuropathy Osteoarthritis of spine, unspecified spinal osteoarthritis complication status, unspecified spinal region Pain in left hip Pain in right hip Anil Gupta MD [address] [place] [address] Phone: tel: fax: [facility] [address] [place] [phone] Phone: tel: fax: Referral ID Status Reason Start Date Expiration Date V isits Requested Visits Authorized [id number] Closed Specialty Services Required 02/10/2023 03/11/2024 1 1 Encounter Details Date Type Department Care Team (Late st Contact Info) Description 02/12/2023 9:00 AM SECRET SERVICE AGENT Office Visit [facility] [address] [place] [phone] Campbell Araya MD [address] [place] [phone] Polyneuropathy; Osteoarthritis of spine, unspecified spinal osteoarthritis complication status, unspecified spinal region; Pain in left hip; Pain in right hip Social History Tobacco Use Types Packs/Day Years [...] on file Legal Sex Male 12:56 PM SECRET SERVICE AGENT Gender Identity Male 05/23/2021 12:08 PM SECRET SERVICE AGENT Sexual Orientation Straight 05/23/2021 12 :08 PM SECRET SERVICE AGENT documented as of this encounter Last Filed Vital Signs Vital Sign Reading Time Taken Comments Blood Pressure 108/60 02/12/2023 8:41 AM SECRET SERVICE AGENT Pulse 74 02/12/2023 8:41 AM SECRET SERVICE AGENT Temperature - - Respiratory Rate - - Oxygen Saturation 98% 02/12/2023 8:41 AM SECRET SERVICE AGENT Inhaled Oxygen Concentration - - Weight 88.9 kg (196 lb) 02/12/2023 8:41 AM SECRET SERVICE AGENT Height 182.9 cm (6') 02/12/2023 8:41 AM SECRET SERVICE AGENT Body Mass Index 26.58 02/12/2023 8:41 AM SECRET SERVICE AGENT documented in this encounter Ordered Prescriptions Prescription Sig Dispense Quantity Refills Last Filled Start Date End Date Lyrica 150 mg capsule Take 1 capsule (150 mg total) by mouth 3 (three) times a day 270 capsule 3 02/12/[address] (CYMBALTA) 30 mg capsule Take 1 capsule (30 mg total) by mouth daily 30 capsule 11 02/12/2023 4 documented in this encounter Progress Notes * Campbell Araya MD - 02/12/2023 9:00 AM CST Images from the original note were not included. Patient ID: Douglas Horn is a 73 y.o. male Chief Complaint: Douglas Horn is being seen as a new consult at the request of Anil Gupta MD for neuropathy History of Present Illness: This is a 73-year-old male who presents for evaluation of peripheral neuropathy. He was previously evaluated by another neurologist for this and says that he did have an EMG in the past that confirmed the diagnosis. He thinks that his neuropathy has been present for at least 10 years. 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 He currently endorses burning pain in his feet that can extend up into the ankles. This has become worse over time as it initially was only present in his feet. The pain can be made worse when he is walking or when a sheet is over them. He says that at times he can feel slightly off balance but has not hadany falls and does not require any assistive devices. He denies any lightheadedness. In addition tothis he tells me that he has radicular pain that goes down his left leg. He has a history of a lumbar spinal fusion and is currently planning to undergo a repeat lumbar MRI through his primary care pr ovider. He currently takes Lyrica 150 mg either twice daily or 3 times daily. He does think that this can have some benefit for his pain but still continues to have breakthrough pain while on Lyrica.He tells me that he previously was on gabapentin and that this was less effective then Lyrica. I reviewed his recent labs including a CMP which showed that his fasting glucose was 71. Review of Systems As above. All other systems were reviewed and found to be normal or non-contributory. 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 Sheets & Dr. Garcia LATERAL FUSION LUMBAR SPINE 10/11/2021 S/P L5-S1 TLIF ([place]) MICRODISCECTOMY LUMBAR 06/03/2021 S/P Right L5-S1 Microdiscectomy ([place]) History reviewed. No pertinent family history. Social History Tobacco Use Smoking status: Never Smokeless tobacco: Never Substance and Sexual Activity Drug use: No Sexual activity: None Alcohol Use: Not At Risk (10/02/2021) AUDIT-C Frequency of Alcohol Consumption: 4 or more times a week Average Number of Drinks: 1 or 2 Frequency of Binge Drinking: Never No Known Allergies Current Outpatient Medications Medication Sig Dispense Refill fluticasone propionate (FLONASE) 50 mcg/actuation nasal spray Administer 4 sprays into each nostrildaily LYRICA 150 mg capsule Take 2 capsules (300 mg total) by mouth daily rOPINIRole (REQUIP) 2 mg tablet Take 1 tablet (2 mg total) by mouth nightly tiZANidine (ZANAFLEX) 2 mg tablet TAKE 1-2 TABLETS (2-4 MG TOTAL) BY MOUTH EVERY 8 HOURS NEEDED FOR MUSCLE SPASMS 90 tablet 1 albuterol HFA (PROVENTIL HFA,VENTOLIN HFA,PROAIR HFA) 90 mcg/actuation inhaler (Patient not taking:Reported on 02/12/2023) benralizumab (Fasenra Pen) 30 mg/mL auto-injector See [...] day (Patient not taking: Reported on 02/12/2023) ipratropium (ATROVENT) 42 mcg (0.06 %) nasal spray Administer 2 sprays into each nostril 2 (two) times a day (Patient not [...] (Patient not taking:Reported on 02/12/2023) nebulizer accessories misc See Instructions, 1 each, 1 each, Route to Pharmacy Electronically, [facility]/pharmacy #[id number], [id number], Instructions Replace Required Details, Supply (Patient not taking: Reported on 02/12/2023) nystatin 100,000 unit/mL suspension (Patient not taking: Reported on 02/12/2023) ondansetron ODT (ZOFRAN-ODT) 8 mg disintegrating tablet TAKE 1 TABLET BY MOUTH FOUR TIMES DAILY NEEDED FOR NAUSEA AND VOMITING (Patient not taking: Reported on 02/12/2023) valACYclovir (VALTREX) 500 mg tablet 1 tablet (500 mg total) (Patient not taking: Reported on 02/12/2023) No current facility-administered medications for this visit. Physical Exam Vitals BP 108/60 (BP Location: Left arm, Patient Position: Sitting) Pulse 74 Ht 182.9 cm (6') Wt 88.9 kg (196 lb) SpO2 98% BMI 26.58 kg/m?? Neurological exam: Constitutional: Appears well and [...] Sensory: Decreased pinprick sensation up to the level of the mid ankle. Decreased vibration at the toes worse on the left than the right Reflexes: 2/4 throughout, 1/4 at the ankles Gait: Intact with good heel and toe walk. Mild difficulty with tandem gait Coordination: Good FNF, No obvious invol mvmts Romberg's negative Assessments and Plan 1. Polyneuropathy - Ambulatory referral to Neurology 2. Osteoarthritis of spine, unspecified spinal osteoarthritis complication status, unspecified spinal region - Ambulatory referral to Neurology 3. Pain in left hip - Ambulatory referral to Neurology 4. Pain in right hip - Ambulatory referral to Neurology This is a 73-year-old gentleman who presents for evaluation of peripheral neuropathy. On examination he has decreased pinprick sensation up to the level of the mid ankle as well as decreased vibration sensation at the toes which is consistent with this diagnosis. He currently takes Lyrica 150 mg 3 times daily which is partially effective at treating his pain. Given that he is already on a high dose of Lyrica and previously tried gabapentin, the Of treatment would be to add on an antidepressant agent such as Cymbalta. I discussed potential side effects of this medication and he was agreeable to start this. I have given him a prescription forCymbalta DR 30 mg daily. He also reports that he has radicular pain down his left leg. He is currently planning to undergo alumbar MRI. I discussed that the Lyrica and Cymbalta may help this type of pain. After he obtains his lumbar MRI he could consider seeing pain management as he may benefit from injections. I will plan on seeing him in about 3 months. My total encounter time on 02/12/2023 was 45 minutes which was spent in the activities documented in the note. This includes time spent prior to the visit and after the visit in direct care of the patient. This time does not include time spent in any separately reportable services. Campbell Araya MD Neurology Cc: Anil Gupta MD ET SERVICE AGENT documented in this encounter Plan of Treatment Not on file documented as of this encounter Procedures Procedure Name Priority Date/Time Associated Diagnosis Comments THYROID FUNCTION CASCADE Routine 02/12/2023 11:16 AM SECRET SERVICE AGENT Polyneuropathy PROTEIN ELECTROPHORESIS, WITH REFLEX, SERUM Routine 02/12/2023 11:16 AM SECRET SERVICE AGENT Polyneuropathy VITAMIN B12 Routine 02/12/2023 11:16 AM SECRET SERVICE AGENT Polyneuropathy documented in this encounter Results * (ABNORMAL) Protein electrophoresis with reflex, serum (02/12/2023 11:16 AM SECRET SERVICE AGENT) Protein, sr 7.0 6.1 - 8.1 g/dL [facility] ALBUMIN 4.2 3.8 - 4.8 g/dL [facility] Alpha-1 Globulin 0.2 0.2 - 0.3 g/dL [facility] Alpha-2 Globuliin 0.6 0.5 - 0.9 g/dL [facility] Beta-1 globulin 0.5 0.4 - 0.6 g/dL [facility] Beta 2 globulin 0.5 0.2 - 0.5 g/dL [facility] Gamma globulin 1.1 0.8 - 1.7 g/dL [facility] Abnormal protein band 0.2(H) NONE DETECTED g/dL [facility] SPE, interp [facility] Comment: Poorly defined band (possible M-spike) migrating in the gamma region. Consider serum immunofixation to rule out a monoclonal protein if clinically indicated. Blood 02/12/2023 11:1 6 AM SECRET SERVICE AGENT 02/12/2023 11:17 AM SECRET SERVICE AGENT Narrative [facility] - 02/15/2023 8:38 AM SECRET SERVICE AGENT FASTING:NO FASTING: NO Campbell Araya MD LAB BLOOD ORDERABLES Final Res ult Performing Organization Address [facility] Co de Phone Number [facility] [address] [place] [address] * TSH reflex to free T4 (02/12/2023 11:16 AM SECRET SERVICE AGENT) TSH 1.84 0.40 - 4.50 mIU/L [facility] Blood 02/12/2023 11:1 6 AM SECRET SERVICE AGENT 02/12/2023 11:17 AM SECRET SERVICE AGENT Narrative [facility] - 02/15/2023 8:38 AM SECRET SERVICE AGENT FASTING:NO FASTING: NO Campbell Araya MD LAB BLOOD ORDERABLES Final Res ult [facility] [address] [place] [address] * Vitamin B12 (02/12/2023 11:16 AM SECRET SERVICE AGENT) Vitamin B12 995 200 - 1,100 pg/mL [facility] Blood 02/12/2023 11:1 6 AM SECRET SERVICE AGENT 02/12/2023 11:17 AM SECRET SERVICE AGENT Narrative [facility] - 02/15/2023 8:38 AM SECRET SERVICE AGENT FASTING:NO FASTING: NO Campbell Araya MD LAB BLOOD ORDERABLES Final Res ult [facility] [address] [phone] documented in this encounter Visit Diagnoses Diagnosis Polyneuropathy Unspecified hereditary and idiopathic peripheral neuropathy Osteoarthritis of spine, unspecified spinal osteoarthritis complication status, unspecified spinal region Pain in left hip Pain in right hip documented in this encounter Discontinued Medications Medication Sig Discontinue Reason Start Date End Da te LYRICA 150 mg capsule Take 2 capsules (300 mg total) by mouth daily Reorder 03/17/2018 02/12/2023 documented as of this encounter Historical Medications * This list may reflect changes made after this encounter. benralizumab (Fasenra) 30 mg/mL syringe Inject 1 mL (30 mg total) under the skin Gets every 2 month- next dose on 03/07/2024 0 famotidine (PEPCID) 20 mg tablet Take 1 tablet (20 mg total) by mouth 2 (two) times a day 2 valACYclovir (VALTREX) 500 mg tablet 1 tablet (500 mg total) 6 09/16/19 24 ondansetron ODT (ZOFRAN-ODT) 8 mg disintegrating tablet TAKE 1 TABLET BY MOUTH FOUR TIMES DAILY NEEDED FOR NAUSEA AND VOMITING 2 09/16/19 24 nystatin 100,000 unit/mL suspension 1 09/16/19 24 albuterol HFA (PROVENTIL HFA,VENTOLIN HFA,PROAIR HFA) 90 mcg/actuation inhaler 1 09/16/19 24 benralizumab (Fasenra Pen) 30 mg/mL auto-injector 02/09/20 2 1 09/16/19 24 budesonide-formoter oL (Symbicort) 160-4.5 mcg/actuation inhaler 1 09/16/19 24 lansoprazole (Prevacid) 30 mg capsule 1 capsule (30 mg total) 6 09/16/19 24 levoFLOXacin (LEVAQUIN) 500 mg tablet TAKE 1 TABLET BY MOUTH EVERY DAY FOR 10 DAYS 09/16/19 24 mupirocin (BACTROBAN) 2 % ointment PLEASE SEE ATTACHED FOR DETAILED DIRECTIONS 3 09/16/19 24 nebulizer accessories misc See Instructions, 1 each, 1 each, Route to Pharmacy Electronically, [facility]/pharmacy #[id number], [id number], Instructions Replace Required Details, Supply 0 09/16/19 24 added in this encounter Orders Outpatient Referral Count Last Ordered Date Fir st Ordered Date AMB REFERRAL TO NEUROLOGY 1 02/12/2023 documented in this encounter Care Teams Search Consultant Relationship Specialty Start Date End Date Anil Gupta MD [address] [place] [address] PCP - General Internal Medicine 04/19/21 Anil Gupta MD [address] [place] [address] Internal Medicine 04/19/21 Adrien Young MD [address] [facility] [address] [place] [address] Consulting Physician Infectious Diseases 11/06/21 documented as of this encounter
--- OUTSIDE RECORDS SUMMARY | 2024-03-19 07:29 | XMS_ITS | Encounter Summary ---
Author Organization [facility] Address [address] [place] [address] Phone Care Team Providers Care Textile Conversion Manager Name Role Phone Anil Gupta MD Primary Care Provider [phone] Anil Gupta MD Unavailable [phone] Adrien Young MD Unavailable [phone] Encounter Details Date Type Department Care Team (Late st Contact Info) Description 11/07/2021 Plan of Care Documentation [facility] Home Health - [address] [address] [address] [place] [address] Social History Tobacco Use Types Packs/Day Years [...] often do you attend chur ch or taoist services? 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 Gender Identity Male 05/23/2021 12:08 PM BOTANY PROFESSOR Sexual Orientation Straight 05/23/2021 12 :08 PM BOTANY PROFESSOR documented as of this encounter Plan of Treatment Not on file documented as of this encounter Visit Diagnoses Not on filedocumented in this encounter Care Teams Textile Conversion Manager Relationship Specialty Start Date End Date Anil Gupta MD [address] [facility] [address] [place] [address] PCP - General Internal Medicine 04/19/21 Anil Gupta MD [address] [place] [address] Internal Medicine 04/19/21 Adrien Young MD [address] [facility] [address] [place] [address] Consulting Physician Infectious Diseases 11/06/21 documented as of this encounter
--- OUTSIDE RECORDS SUMMARY | 2024-03-19 07:29 | XMS_ITS | Encounter Summary ---
Author Organization [facility] Address [address] [place] [address] Phone Care Team Providers Care Assembler Erector Name Role Phone Anil Gupta MD Primary Care Provider [phone] Anil Gupta MD Unavailable [phone] Adrien Young MD Unavailable [phone] Encounter Details Date Type Department Care Team (Late st Contact Info) Description 11/06/2021 Orders Only [facility] [address] [place] [address] Mai Richardson RPh Social History Tobacco Use Types Packs/Day Years [...] often do you attend chur ch or shinto services? 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 Adrien Young/Daniel Richardson PharmD Maintain IV access PICC Line with 10ml normal saline and 5ml heparin 50 units/5ml for patency per established protocol. Ceftriaxone 2gm in Sterile Water 20mL, infuse intravenously over 5 minutes every 24 hours by slow IV push. LOT: 6 weeks Labs: Mondays - CBC w diff, CMP, CRP 1 SNV every week for 7 weeks for patient assessment, teaching, IV catheter care, lab work. 6 PRN visits for additional teaching, line care, labs or other symptom management documented in this encounter Plan of Treatment Not on file documented as of this encounter Visit Diagnoses Not on filedocumented in this encounter Care Teams Assembler Erector Relationship Specialty Start Date End Date Anil Gupta MD [address] [place] [address] PCP - General Internal Medicine 04/19/21 Anil Gupta MD [address] [facility] [address] [place] [address] Internal Medicine 04/19/21 Adrien Young MD [address] [facility] [address] [place] [address] Consulting Physician Infectious Diseases 11/06/21 documented as of this encounter
--- OUTSIDE RECORDS SUMMARY | 2024-03-19 07:29 | XMS_ITS | Encounter Summary ---
Author Organization [facility] Address [address] [place] [address] Phone Care Team Providers Care Blow Up Operator Name Role Phone Anil Gupta MD Primary Care Provider Anil Gupta MD Unavailable [phone] Adrien Young MD Unavailable [phone] Reason for Visit * Auth/Cert Specialty Diagnoses / Procedures Referred By Contac t Referred To Contact Referral ID Status Reason Start Date Expiration Date Visits Re quested Visits Authorized [id number] 1 1 Encounter Details Date Type Department Care Team (Late st Contact Info) Description 12/10/2021 10:00 AM CDT Home Care Visit [facility] [address] [address] [address] [place] [address] Tayler Feliciano, RN [address] [facility] [place] [address] SN HOME VISIT Social History Tobacco Use Types Packs/Day Years [...] week 10/29/2021 How often do you attend [facility] or mormon services? 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 Gender Identity Male 05/23/2021 12:08 PM MACHINE JOINER CEMENTER Sexual Orientation Straight 05/23/2021 12 :08 PM MACHINE JOINER CEMENTER documented as of this encounter Last Filed Vital Signs Vital Sign Reading Time Taken Comments Blood Pressure - - Pulse 79 12/10/2021 10:25 AM CDT Temperature 36.5 ??C (97.7 ??F) 12/10/2021 10:25 AM C DT Respiratory Rate 16 12/10/2021 10:25 AM CDT Oxygen Saturation 97% 12/10/2021 10:25 AM CDT Inhaled Oxygen Concentration - - Weight - - Height - - Body Mass Index - - documented in this encounter Plan of Treatment Not on file documented as of this encounter Visit Diagnoses Not on filedocumented in this encounter Home Health Visit - Care Plan Visit Details Visit Type -SN Home Visit Discipline -Detention Problems Problem Description Start Date Status Goals Interve ntions Need to Collect Specimen Sample Disciplines: Detention Need to collect specimen sample 11/07/2021 Active - 1 problem intervention scheduled/documen andrew in this visit Learning/Teachin g Needs - IV Therapy Disciplines: Detention Teaching and learning needs for performing home IV therapy 11/07/2021 Active - 1 problem intervention scheduled/documen andrew in this visit Homebound Status Disciplines: Skilled Disciplines Patient's homebound status 11/07/2021 Active 1 goal linked to scheduled/documen andrew intervention 1 goal intervention scheduled/documen andrew in this visit Monitor patient's vital signs every home health visit Disciplines: SN, PT, OT, ETCHER PRINTED CIRCUIT BOARDS, LABORER GENERAL, Skilled Disciplines Monitor patient's vital signs every [...] goal intervention scheduled/documen andrew in this visit Knowledge Deficit - Wound Care Disciplines: Core Disciplines Deficiency of cognitive information related to wound care 11/07/2021 Active 1 goal linked to scheduled/documen andrew intervention 1 goal intervention scheduled/documen andrew in this visit Wound Care Disciplines: Core Disciplines Wound care needed, #7 back 11/07/2021 Active 1 goal linked to scheduled/documen andrew intervention 1 goal intervention scheduled/documen andrew in this visit Wound Care Disciplines: Core Disciplines Wound care needed 11/07/2021 Active 1 goal linked to scheduled/documen andrew intervention 1 goal intervention scheduled/documen andrew in this visit Goals Goal Associated Problem Outcome Goal Met? Visit Notes Patient receives care at the most appropriate care setting Description: Patient receives care at the most appropriate care setting during the certification period ending 01/05/22 Homebound Status No Measure vital signs during every home health visit during episode of care Description: Home lead injection mold technician to measure vital signs during every home health visit during episode of care 01/05/22 Monitor patient's vital signs every home health visit No Demonstrate use of safety precautions Description: Patient/caregiver maintains safe home environment as evidenced by remaining free from injury and demonstrates use of safety precautions during the certification period ending 01/05/22 Safety concerns No Report that pain has been reduced or controlled Description: Patient/caregiver/family will verbalize satisfaction with the patients level of pain and symptom control during the certification period ending 01/05/22 Pain No Knowledgeable of infection Description: Patient will remain free of infection and able to recognize of signs of infection by 12/06/21 Wound Risk of Infection No Knowledgeable on Woundcare Description: Patient/caregiver will be knowledgeable on wound care procedure as evidenced by successful return demonstration, wound healing evidenced by progressive wound healing and when to seek medical attention evidenced by patient/caregiver ability to verbalize s/sx to report to MD or LABORER GENERAL during the certification period ending 12/06/21 Knowledge Deficit - Wound Care No Progression towards healing Description: Wound #7 back incision show progression towards healing by 12/06/21 Wound Care No Progression towards healing Description: Wound show progression towards healing by 12/06/21 Wound Care No Interventions Intervention Associated Problem/Goal Status Variance Visit Notes Lab draw Description: Labs: Mondays - CBC w diff, CMP, CRP DX: [id number] Ordering dr: Dr Shankar Young [facility]ax to [facility] infusion: [phone] . FOC: Dr. Adrien Young/Daniel Richardson PharmD Problem:Need to Collect Specimen Sample Completed Sample obtained from right PICC line using aseptic technique for CMP, CRP, & CBC as ordered. Patient tolerated well. Next lab draw due 12/17/21. Dressing change Description: Skilled Nurse to instruct patient/caregiver on dressing change frequency. Central venous line dressing to be changed 48 hours if there is gauze under the occlusive dressing, dressing is soiled or non-occlusive. Weekly IV site dressing changes to be performed if no issues. Securement device to be used with appropriate lines. Skilled Nurse to instruct patient/caregiver on the purpose of doing measurements of line migration and arm circumference weekly and PRN. Type of line: single lumen picc line , left arm Problem:Learning/Te aching Needs - IV Therapy Completed PICC line dressing changed. Site cleansed. No signs of infection. Homebound Status Description: Patient is homebound due to pain from back surg, needs assist of one to leave home and frequent rest breaks. Problem:Homebound Status Goal:Patient receives care at the most appropriate care setting Completed Patient is homebound due to pain from back surg, needs assist of one to leave home and frequent rest breaks, PICC line, receiving IV antibiotic. Monitor Vital Signs Description: Monitor blood pressure, pulse, oxygen saturation, respirations Problem:Monitor patient's vital signs every home health visit Goal:Measure vital signs during every home health visit during episode of care Completed Vital signs stable. Afebrile. Instruct Fall Prevention Description: Instruct patient/caregiver in methods to prevent falls Problem:Safety concerns Goal:Demonstrate use of safety precautions Completed Instruct patient/caregiver in methods to prevent falls. Patient walks & transfers independently & steady. Assess safety Description: Assess patient safety Problem:Safety concerns Goal:Demonstrate use of safety precautions Completed Assess patient safety. Patient's environment is safe for him. Instruct on pain management techniques Description: Instruct in pharmacologic and nonpharmacologic pain management techniques. Problem:Pain Goal:Report that pain has been reduced or controlled Completed Instruct in pharmacologic and nonpharmacologic pain management techniques. Patient understands he needs to take rest breaks when up to rest his back. Disposal of Dressing Description: Dispose of soiled dressing by place in bag then place in patient's trashcan. Problem:Wound Risk of Infection Goal:Knowledgeable of infection Completed Midline back incision open to air & healed. No dressings. Demonstration of Wound Care Description: Patient/caregiver will complete a return demonstration on wound care to home health clinician. Observed return wound care by 11.15.2021. Problem:Knowledge Deficit - Wound Care Goal:Knowledgeable on Woundcare Completed Patient/caregiver will complete a return demonstration on wound care to home health clinician. Observed return wound care by 11.15.2021. Managing IV antibiotic infusion daily via PICC without problem. Negative pressure wound therapy Description: #7 back incision: RONEY negative pressure dressing--Patient was instructed to remove day 7 and leave incision JULIANNA Problem:Wound Care Goal:Progression towards healing Completed Midline back incision open to air & healed. Skilled assessment wound Description: Full wound assessment including measurement weekly. Wound assessment each visit Problem:Wound Care Goal:Progression towards healing Completed Midline back incision is healed. No open areas. documented in this encounter Care Teams Blow Up Operator Relationship Specialty Start Date End Date Anil Gupta MD [address] [place] [address] PCP - General Internal Medicine 04/19/21 Anil Gupta MD [address] [place] [address] Internal Medicine 04/19/21 Adrien Young MD [address] [facility] [address] [place] [address] Consulting Physician Infectious Diseases 11/06/21 documented as of this encounter
--- OUTSIDE RECORDS SUMMARY | 2024-03-19 07:29 | XMS_ITS | Encounter Summary ---
Author Organization [facility] Address [address] [place] [address] Care Team Providers Care Laboratory Administrative Director Name Role Phone Anil Gupta MD Primary Care Provider [phone] Anil Gupta MD Unavailable [phone] Adrien Young MD Unavailable [phone] Reason for Visit * Reason Comments Post-op Spine Surgery Encounter Details Date Type Department Care Team (Late st Contact Info) Description 11/20/2021 11:00 AM CDT Office Visit [facility] [address] [facility] [address] [place] [address] Jayy Granger MD [address] [facility] [address] [place] [address] Status post lumbar spinal fusion (Primary Dx) [...] week 10/29/2021 How often do you attend [facility] or quaker services? 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 Sheets) and 11/03/21 (Dr. Garcia) ?? Last seen 11/13/21 - doing well. Some low back pain and tingling in legs bilaterally when he lifts them up in shower. Incision healing well s/p I&D x 2. Hoping to remove sutures at next appt. ?? Still having same low back pain and tingling in both legs when lifting up - says it's no better or no worse. Reports that he does feel he is getting up and walking around better each day. Still wearing brace as instructed. States no new concerns or symptoms. ?? Incision still healing well. Slight edema noted around incision but not redness, warmth, or drainage. * Jayy Granger MD - 11/20/2021 11:00 AM CDT Images from the original note were not included. Follow-up Office Visit: Mr. Horn returns for wound check and postoperative evaluation. He denies any shooting leg pain, numbness tingling apart from some tingling in his legs if he is in the shower and puts his foot up on a raised surface. He has no bowel or bladder problems. Physical Examination: On examination, his wound is healing well. He was prepped with Betadine and the retention sutures were. It was then wiped clean with alcohol. He has full strength and normal gait. Review of X-rays: No new x-rays CRP on 11/19/2021 was 7.3 compared to CRP of 224.8 on 10/29/2021. Diagnoses and all orders for this visit: Status post lumbar spinal fusion (Primary) Assessment & Plan: Mr. Horn is status post L5-S1 decompression [...] He continues on antibiotics per Infectious Disease. This document was created using speech voice [...] addressed to the provider's office for clarification. Jayy Granger MD, [facility] Neurological Surgery documented in this encounter Miscellaneous Notes * Assessment & Plan Note - Jayy Granger MD - 11/20/2021 11:43 AM CDT Associated Problem(s): Status post lumbar spinal fusion Mr. Horn is status post L5-S1 decompression [...] He continues on antibiotics per Infectious Disease. documented in this encounter Plan of Treatment Not on file documented as of this encounter Visit Diagnoses Diagnosis Status post lumbar spinal fusion- Primary Arthrodesis status documented in this encounter Care Teams Laboratory Administrative Director Relationship Specialty Start Date End Date Anil Gupta MD [address] [place] [address] PCP - General Internal Medicine 04/19/21 Anil Gupta MD [address] [place] [address] Internal Medicine 04/19/21 Adrien Young MD [address] [facility] [address] [place] [address] Consulting Physician Infectious Diseases 11/06/21 documented as of this encounter
--- OUTSIDE RECORDS SUMMARY | 2024-03-19 07:29 | XMS_ITS | Encounter Summary ---
Author Organization [facility] Home Care Servic es Address [address] [place] [address] Phone Care Team Providers Care Travel Trailer Components Assembler Name Role Phone Anil Gupta MD Primary Care Provider [phone] Anil Gupta MD Unavailable [phone] Adrien Young MD Unavailable [phone] Reason for Visit * Auth/Cert Specialty Diagnoses / Procedures Referred By Contac t Referred To Contact Referral ID Status Reason Start Date Expiration Date Visits Re quested Visits Authorized [id number] 1 1 Encounter Details Date Type Department Care Team (Late st Contact Info) Description 11/11/2021 10:30 AM CDT Home Care Visit [facility] Health [address] [address] [address] [place] [address] Sander Montana RN SN HOME VISIT Social History Tobacco Use [...] on file 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 Gender Identity Male 05/23/2021 12:08 PM WIENER PACKER Sexual Orientation Straight 05/23/2021 12 :08 PM WIENER PACKER documented as of this encounter Last Filed Vital Signs Vital Sign Reading Time Taken Comments Blood Pressure 114/62 11/11/2021 11:04 AM CDT Pulse 52 11/11/2021 11:04 AM CDT Temperature 36.2 ??C (97.1 ??F) 11/11/2021 11:04 AM C DT Respiratory Rate 20 11/11/2021 11:04 AM CDT Oxygen Saturation 98% 11/11/2021 11:04 AM CDT Inhaled Oxygen Concentration - - Weight 77.4 kg (170 lb 9.6 oz) 11/11/2021 11:04 AM CDT Height - - Body Mass Index 23.14 10/28/2021 10:45 PM CDT documented in this encounter Plan of Treatment Not on file documented as of this encounter Visit Diagnoses Not on filedocumented in this encounter Home Health Visit - Care Plan Visit Details Visit Type -SN Home Visit Discipline -Jail Problems Problem Description Start Date Status Goals Interventions Need to Collect Specimen Sample Disciplines: Jail Need to collect specimen sample 11/07/2021 Active - 1 problem intervention scheduled/documen andrew in this visit Safety concerns Disciplines: Jail Safety needs related to infusion administration 11/07/2021 Active - 1 problem intervention scheduled/documen andrew in this visit Homebound Status Disciplines: Skilled Disciplines Patient's homebound status 11/07/2021 Active 1 goal linked to scheduled/docume nted intervention 1 goal intervention scheduled/documen andrew in this visit Monitor patient's vital signs every home health visit Disciplines: SN, PT, OT, TIME SIGNAL WIRER, HYDRAULIC MINER BLASTING, Skilled Disciplines Monitor patient's vital signs every home health visit. 11/07/2021 Active 1 goal linked to scheduled/docume nted intervention 1 goal intervention scheduled/documen andrew in this visit Safety concerns Disciplines: Skilled Disciplines Alteration in safety 11/07/2021 Active 1 goal linked to scheduled/docume nted intervention 2 goal interventions scheduled/documen andrew in this visit Pain Disciplines: Core Disciplines Alteration in comfort 11/07/2021 Active 1 goal linked to scheduled/docume nted intervention 1 goal intervention scheduled/documen andrew in this visit Wound Risk of Infection Disciplines: Core Disciplines Risk of infections related to wounds 11/07/2021 Active 1 goal linked to scheduled/docume nted intervention 1 goal intervention scheduled/documen andrew in this visit Wound Care Disciplines: Core Disciplines 11/07/2021 Active 1 goal linked to scheduled/docume nted intervention 1 goal intervention scheduled/documen andrew in this visit Goals Goal Associated Problem Outcome Goal Met? Visit Notes Patient receives care at the most appropriate care setting Description: Patient receives care at the most appropriate care setting. Homebound Status No Measure vital signs during every home health visit during episode of care Description: Home program management professional to measure vital signs during every home health visit during episode of care. Monitor patient's vital signs every home health visit No Demonstrate use of safety precautions Description: Patient/caregiver maintains safe home environment as evidenced by remaining free from injury and demonstrates use of safety precautions. Safety concerns No Report that pain has been reduced or controlled Description: Patient/caregiver/family will verbalize satisfaction with the patients level of pain and symptom control. Pain No Knowledgeable of infection Description: Patient will remain free of infection and able to recognize of signs of infection by 11.21.2021. Wound Risk of Infection No Progression towards healing Wound Care No Interventions Intervention Associated Problem/Goal Status Variance Visit Notes Lab draw Description: Labs: Mondays - CBC w diff, CMP, CRP DX: T81.42XA Ordering dr: Dr Shankar Young Fax to [facility] infusion: [phone] . FOC: Dr. Adrien Young/Daniel Richardson PharmD Problem:Need to Collect Specimen Sample Completed Labs: Mondays - CBC w diff, CMP, CRP DX: T81.42XA Ordering dr: Dr Shankar Young Instruct on IV complications Description: Instruct patient/caregiver on how to manage breaks in line, signs/symptoms of complications, who to contact for complications and how to contact the nurse, MD and infusion service Problem:Safety concerns Completed Instruct patient/caregiver on how to manage breaks in line, signs/symptoms of complications, who to contact for complications and how to contact the nurse, MD and infusion service Homebound Status Description: Patient is homebound due to pain from back surg, needs assist of one to leave home and frequent rest breaks. Problem:Homebound Status Goal:Patient receives care at the most appropriate care setting Completed Patient is homebound due to pain from back surg, needs assist of one to leave home and frequent rest breaks. Monitor Vital Signs Description: Monitor blood pressure, pulse, oxygen saturation, respirations Problem:Monitor patient's vital signs every home health visit Goal:Measure vital signs during every home health visit during episode of care Completed Monitor blood pressure, pulse, oxygen saturation, respirations Instruct Fall Prevention Description: Instruct patient/caregiver in methods to prevent falls Problem:Safety concerns Goal:Demonstrate use of safety precautions Completed Instruct patient/caregiver in methods to prevent falls Assess safety Description: Assess patient safety Problem:Safety concerns Goal:Demonstrate use of safety precautions Completed Assess patient safety Instruct on pain management techniques Description: Instruct in pharmacologic and nonpharmacologic pain management techniques. Problem:Pain Goal:Report that pain has been reduced or controlled Completed Instruct in pharmacologic and nonpharmacologic pain management techniques. Instruct Hand Washing Description: Instruct patient/caregiver on hand wash technique Problem:Wound Risk of Infection Goal:Knowledgeable of infection Completed Instruct patient/caregiver on hand wash technique Skilled assessment wound Problem:Wound Care Goal:Progression towards healing Scheduled documented in this encounter Care Teams Travel Trailer Components Assembler Relationship Specialty Start Date End Date Anil Gupta MD [address] [place] [address] PCP - General Internal Medicine 04/19/21 Anil Gupta MD [address] [place] [address] Internal Medicine 04/19/21 Adrien Young MD [address] [facility] [address] [place] [address] Consulting Physician Infectious Diseases 11/06/21 documented as of this encounter
--- OUTSIDE RECORDS SUMMARY | 2024-03-19 07:29 | XMS_ITS | Encounter Summary ---
Author Organization [facility] Healthcare Address [address] [place] [address] Care Team Providers Care Auditor In Charge Name Role Phone Anil Gupta MD Primary Care Provider [phone] Anil Gupta MD Unavailable [phone] Adrien Young MD Unavailable [phone] Reason for Referral * Diagnostic Imaging (Routine) - Closed Specialty Diagnoses / Procedures Referred By Contac t Referred To Contact Diagnoses Postlaminectomy syndrome, lumbar region Procedures XR Spine Lumbar 2 or 3 Views Jayy Granger MD Phone: tel: fax: [address] [place] [address] Referral ID Status Reason Start Date Expiration Date Visits Re quested Visits Authorized [id number] Closed 11/13/2021 12/13/2022 1 1 Reason for Visit * Diagnostic Imaging (Routine) - Closed Specialty Diagnoses / Procedures Referred By Contac t Referred To Contact Diagnoses Postlaminectomy syndrome, lumbar region Procedures XR Spine Lumbar 2 or 3 Views Jayy Granger MD Phone: tel: fax: [address] [place] [address] Referral ID Status Reason Start Date Expiration Date Visits Re quested Visits Authorized [id number] Closed 11/13/2021 12/13/2022 1 1 Encounter Details Date Type Department Care Team (Latest Contact Info) Description 11/13/2021 10:10 AM CDT - 11/13/2021 11:59 PM CDT Hospital Encounter [facility] - Imaging [address] [place] [address] Postlaminectomy syndrome, lumbar region Discharge Disposition: Discharge to home or self [...] week 10/29/2021 How often do you attend [facility] or sikhism services? 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 Sexual Orientation Straight 05/23/2021 12 :08 PM COSTUME DESIGN TEACHER documented as of this encounter Medications at [...] by mouth daily 03/17/2018 [facility] Instructions, 1 each, 1 each, Route to Pharmacy Electronically, [facility]/pharmacy #[id number], [id number], Instructions Replace Required Details, Supply 12/12/2019 [...] VIEWS Schedule Routine, Read Routine (OP Routine) 11/13/2021 10:37 AM CDT Postlaminectomy syndrome, lumbar region documented in this encounter Results * XR Spine Lumbar 2 or 3 Views (11/13/2021 10:37 AM CDT) Anatomical Region Laterality Modality Spine N/A Computed Radiogr aphy 11/13/2021 11:4 1 AM CDT Impressions 11/13/2021 11:41 AM CDT 1. ??Status post L5-S1 posterior fusion. 2. ??Hardware intact. 3. ??Multilevel lumbar spondylosis; no acute osseous abnormality. Electronically signed by: Jt Alvares M.D. Narrative 11/13/2021 11:41 AM CDT XR SPINE LUMBAR 2 OR 3 VIEWS: 11/13/2021 11:30 AM CLINICAL INDICATION: Post-lumbar surgery. COMPARISON: Radiograph of the lumbar spine dated 10/11/2021. ??CT lumbar spine dated 11/02/2021. FINDINGS: The patient is status post L5-S1 posterior fusion, and laminectomy, as well as placement of an interbody prosthesis. ??The hardware is intact. There is mild dextroscoliosis of the upper lumbar spine centered at L3-L4, as well as mild rightward listhesis at L3-L4. ??There is mild increased angulation of the lower lumbar spine convex to the left centered at L4-L5, which is likely related to severe loss of disc space height on the right at this level. There is no fracture or acute osseous abnormality. ??There is degenerative change in the posterior elements at multiple levels. The visualized sacrum and bony pelvis are intact. ?? There are no acute findings in the soft tissues. Procedure Note Jt Alvares MD - 11/13/2021 XR SPINE LUMBAR 2 OR 3 VIEWS: 11/13/2021 11:30 AM CLINICAL INDICATION: Post-lumbar surgery. COMPARISON: Radiograph of the lumbar spine dated 10/11/2021. CT lumbar spine dated 11/02/2021. FINDINGS: The patient is status post L5-S1 posterior fusion, and laminectomy, as well as placement of an interbody prosthesis. The hardware is intact. There is mild dextroscoliosis of the upper lumbar spine centered at L3-L4, as well as mild rightward listhesis at L3-L4. There is mild increased angulation of the lower lumbar spine convex to the left centered at L4-L5, which is likely related to severe loss of disc space height on the right at this level. There is no fracture or acute osseous abnormality. There is degenerative change in the posterior elements at multiple levels. The visualized sacrum and bony pelvis are intact. There are no acute findings in the soft tissues. IMPRESSION: 1. Status post L5-S1 posterior fusion. 2. Hardware intact. 3. Multilevel lumbar spondylosis; no acute osseous abnormality. Electronically signed by: Jt Alvares M.D. Jayy Granger MD IMG XR PROCEDURES Final Resul t documented in this encounter Visit Diagnoses Diagnosis Postlaminectomy syndrome, lumbar region documented in this encounter Care Teams Auditor In Charge Relationship Specialty Start Date End Date Anil Gupta MD [address] [place] [address] PCP - General Internal Medicine 04/19/21 Anil Gupta MD [address] [place] [address] Internal Medicine 04/19/21 Adrien Young MD [address] [facility] [address] [place] [address] Consulting Physician Infectious Diseases 11/06/21 documented as of this encounter
--- OUTSIDE RECORDS SUMMARY | 2024-03-19 07:29 | XMS_ITS | Encounter Summary ---
Author Organization [facility] Address [address] [place] [address] Phone Care Team Providers Care Hr Manager Name Role Phone Anil Gupta MD Primary Care Provider [phone] Anil Gupta MD Unavailable [phone] Adrien Young MD Unavailable [phone] Reason for Visit * Auth/Cert Specialty Diagnoses / Procedures Referred By Contac t Referred To Contact Referral ID Status Reason Start Date Expiration Date Visits Re quested Visits Authorized [id number] 1 1 Encounter Details Date Type Department Care Team (Late st Contact Info) Description 11/19/2021 9:30 AM CDT Home Care Visit [facility] Health [address] [address] [address] [place] [address] Roxana Hardin RN SN HOME VISIT Social History Tobacco [...] How often do you attend chur or hinduism services? 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 Gender Identity Male 05/23/2021 12:08 PM BIOANALYST Sexual Orientation Straight 05/23/2021 12 :08 PM BIOANALYST documented as of this encounter Last Filed Vital Signs Vital Sign Reading Time Taken Comments Blood Pressure 98/60 11/19/2021 10:16 AM CDT Pulse 72 11/19/2021 10:16 AM CDT Temperature 36.1 ??C (97 ??F) 11/19/2021 10:16 AM CDT Respiratory Rate 18 11/19/2021 10:16 AM CDT Oxygen Saturation 92% 11/19/2021 10:16 AM CDT Inhaled Oxygen Concentration - - Weight - - Height - - Body Mass Index - - documented in this encounter Plan of Treatment Not on file documented as of this encounter Visit Diagnoses Not on filedocumented in this encounter Home Health Visit - Care Plan Visit Details Visit Type -SN Home Visit Discipline -Mcfp Problems Problem Description Start Date Status Goals Interve ntions Need to Collect Specimen Sample Disciplines: Mcfp Need to collect specimen sample 11/07/2021 Active - 1 problem intervention scheduled/documen andrew in this visit Learning/Teachin g Needs - IV Therapy Disciplines: Mcfp Teaching and learning needs for performing home IV therapy 11/07/2021 Active - 1 problem intervention scheduled/documen andrew in this visit Homebound Status Disciplines: Skilled Disciplines Patient's homebound status 11/07/2021 Active 1 goal linked to scheduled/documen andrew intervention 1 goal intervention scheduled/documen andrew in this visit Monitor patient's vital signs every home health visit Disciplines: SN, PT, OT, CLAIMS ADJUSTER SUPERVISOR, PUBLIC WORKS LABORER, Skilled Disciplines Monitor patient's vital signs every home health visit. 11/07/2021 Active 1 goal linked to scheduled/documen andrew intervention 1 goal intervention scheduled/documen andrew in this visit Infection Prevention Disciplines: Skilled Disciplines Infection Prevention [...] visit during episode of care Description: Home body shop worker to measure vital signs during every home health visit during episode of care 01/05/22 Monitor patient's vital signs every home health visit No Verbalize signs of infection Description: Patient/caregiver will demonstrate knowledge of infection prevention strategies by verbalizing signs and symptoms of infection during the certification period ending 01/05/22 Infection Prevention No Demonstrate use of safety precautions Description: [...] the certification period ending 01/05/22 Pain No Progression towards healing Description: Wound show progression towards healing by 12/06/21 Wound Care No Interventions Intervention Associated Problem/Goal Status Variance Visit Notes Lab draw Description: Labs: Mondays - CBC w diff, CMP, CRP DX: T81.42XA Ordering dr: Dr Shankar Young Fax to [facility] infusion: [phone] . FOC: Dr. Adrien Young/Daniel Richardson PharmD Problem:Need to Collect Specimen Sample Completed Cleansed hands and placed clean gloves. Cleansed Clave with alcohol prep for 30 seconds and allowed to dry. Flushed PICC line with 10mL of NS. Cleansed Clave with alcohol prep for 10seconds and allowed to dry. Waste of 10mL blood. Cleansed Clave with alcohol for 10 seconds. Blood draw of CBCw/diff, CMP and CRP completed. Changed Clave and flushed with 20mL of NS cleansed Clave with alcohol prep for 10 seconds then Heparin per [facility] and replaced green cap. Patient tolerated well. Transported by [employer] job # [id number] to nearest hospital Dressing change Description: Skilled Nurse to instruct [...] single lumen picc line , left arm Problem:Learning/T eaching Needs - IV Therapy Completed Using sterile technique, Removed old dressing and STAT LOCK. Cleansed hands and placed new sterile gloves. Cleansed insertion site and surrounding area with Chloroprep for 30 seconds and allowed to dry. Placed new STAT LOCK and covered with transparent occlusive dressing. Patient tolerated well Homebound Status Description: Patient is homebound due [...] health visit during episode of care Completed Educate Patient on Infection Prevention Description: Instruct patient on signs and symptoms of infection IE: fever, odor, change in color, increased amount of drainage, purulent drainage, warmth. Problem:Infection Prevention Goal:Verbalize signs of infection Completed Instruct patient on signs and symptoms of infection IE: fever, odor, change in color, increased amount of drainage, purulent drainage, warmth. Patient verbalized understanding Instruct Fall Prevention Description: Instruct patient/caregiver in methods to prevent falls Problem:Safety concerns Goal:Demonstrate use of safety precautions Completed Assess safety Description: Assess patient safety Problem:Safety concerns Goal:Demonstrate use of safety precautions Completed Instruct on pain management techniques Description: Instruct in pharmacologic and nonpharmacologic pain management techniques. Problem:Pain Goal:Report that pain has been reduced or controlled Completed see pain assessment Skilled assessment wound Description: Full wound assessment including measurement weekly. Wound assessment each visit Problem:Wound Care Goal:Progression towards healing Scheduled with variance Patient refused documented in this encounter Care Teams Hr Manager Relationship Specialty Start Date End Date Anil Gupta MD [address] [facility] [address] [place] [address] PCP - General Internal Medicine 04/19/21 Anil Gupta MD [address] [place] [address] Internal Medicine 04/19/21 Adrien Young MD [address] [facility] [address] [place] [address] Consulting Physician Infectious Diseases 11/06/21 documented as of this encounter
--- OUTSIDE RECORDS SUMMARY | 2024-03-19 07:29 | XMS_ITS | Encounter Summary ---
Author Organization [facility] Address [address] [place] [address] Care Team Providers Care Drapery Supervisor Name Role Phone Anil Gupta MD Primary Care Provider [phone] Anil Gupta MD Unavailable [phone] Adrien Young MD Unavailable [phone] Reason for Visit * Reason Comments Post-op Spine Surgery Encounter Details Date Type Department Care Team (Late st Contact Info) Description 11/13/2021 11:00 AM CDT Office Visit [facility] [place] [address] [place] [address] Jayy Granger MD [address] [facility] [address] [place] [address] Status post lumbar spinal fusion [...] How often do you attend [facility] or restoration services? 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 Gender Identity Male 05/23/2021 12:08 PM SKILLED LABOR Sexual Orientation Straight 05/23/2021 12 :08 PM SKILLED LABOR documented as of this encounter Last Filed Vital Signs Vital Sign Reading Time Taken Comments Blood Pressure 95/59 11/13/2021 11:21 AM CDT Pulse 71 11/13/2021 11:21 AM CDT Temperature - - Respiratory Rate 16 11/13/2021 11:21 AM CDT Oxygen Saturation - - Inhaled Oxygen Concentration - - Weight - - Height - - Body Mass Index - - documented in this encounter Progress Notes * Coco Gilmore RN - 11/13/2021 11:00 AM CDT RN PROGRESS NOTE - FOLLOW UP S/P L5-S1 TLIF 10/11/21; Followed by 2 I&D's on 10/29/21 (Dr. Sheets) and 11/03/21 (Dr. Garcia) ?? Pt last in office 10/21/21 for staple removal. Pt was doing well from post-op standpoint, but didc/o possible GI issues. Pt was having minimal pain and incision healing well with no redness or drainage noted. Pt then called us 10/28/21 - pt was started on vancomycin for c-diff and colitis, but started having fever and increased pain that weekend. Pt ultimately went to PCP for possible lumbar spine infection, as he started having puss as well. Pt was transferred to [facility] and underwent the 2 I&D's. ?? Having lower back pain, describes as skeletal pain , but no radicular pain. ?? Having sciatic nerve pain down left leg ever since surgery and notes some tingling in legs bilaterally when he lifts them up in shower ?? Incision healing well. No drainage or redness noted. Will leave sutures in at this time per Dr Granger. ?? Wearing brace as recommended. Has weaned himself from oxycodone and is only taking Tylenol for pain at this time. ?? Getting up and walking around okay - walking about 1.5-2 miles each day. * Jayy Granger MD - 11/13/2021 11:00 AM CDT Images from the original note were not included. Follow-up Office Visit: Mr. Horn is status post L5-S1 TLIF on 10/11/2021. He did well postoperatively. Was having some abdominal issues and was started on oral vancomycin for colitis. He developed alumbar wound infection and underwent incision and drainage X 2. He reports low back pain at this time but denies any radicular leg pain. He reports some tingling in his legs when he lifts them up in the shower. He continues to wear his brace and his wean off oxycodone. He walks 1.5 to 2 miles per day. He is followed by Dr. Young of Infectious Disease. Physical Examination: On examination, he has grossly normal muscle bulk, tone and strength throughout. He is able walk on tiptoes and heels. His wound is well-healed. He has sutures in place. There is no warmth, erythema or purulence. Review of X-rays: AP and lateral lumbar spine films show interbody device at L5- S1 posterior fixation and good alignment. There has been in increase in disc space height surgery. Diagnoses and all orders for this visit: Status post lumbar spinal fusion (Primary) Assessment & Plan: Mr. Horn is improved after incision and drainage. 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 Because of the infection is unclear. He seems to be recovering well after incision, drainage and antibiotic treatment. I plan to see him back in 1 week for staple removal. This document was created using speech voice [...] provider's office for clarification. Jayy Granger MD, [facility] Neurological Surgery documented in this encounter Miscellaneous Notes * Assessment & Plan Note - Jayy Granger MD - 11/13/2021 1:16 PM CDT Associated Problem(s): Status post lumbar spinal fusion Mr. Horn is improved after incision and drainage. 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 Because of the infection is unclear. He seems to be recovering well after incision, drainage and antibiotic treatment. I plan to see him back in 1 week for staple removal. documented in this encounter Plan of Treatment Not on file documented as of this encounter Visit Diagnoses Diagnosis Status post lumbar spinal fusion- Primary Arthrodesis status documented in this encounter Care Teams Drapery Supervisor Relationship Specialty Start Date End Date Anil Gupta MD [address] [place] [address] PCP - General Internal Medicine 04/19/21 Anil Gupta MD [address] [place] [address] Internal Medicine 04/19/21 Adrien Young MD [address] [facility] [address] [place] [address] Consulting Physician Infectious Diseases 11/06/21 documented as of this encounter
--- OUTSIDE RECORDS SUMMARY | 2024-03-19 07:29 | XMS_ITS | Encounter Summary ---
Author Organization [facility] Address [address] [place] [address] Care Team Providers Care Warp Hand Name Role Phone Anil Gupta MD Primary Care Provider [phone] Anil Gupta MD Unavailable [phone] Adrien Young MD Unavailable [phone] Encounter Details Date Type Department Care Team (Late st Contact Info) Description 11/07/2021 Telephone Advanced Sp[facility] [place] [address] [facility] [address] [place] [address] Coco Gilmore RN Social History Tobacco Use Types Packs/Day [...] often do you attend chur ch or scientologist services? 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 Pt wanted to know if he still neededhis brace after his two I&D's. Explained that he can wear it, but if it's causing more discomfort than it is helping that it is ok not to wear it. Say he will continue wearing it when up and moving. He also had questions about his RONEY dressing and incision/sutures. Told him we will remove PICOdressing at scheduled appt next week 11/13 and evaluate incision for suture removal. Pt verbalized understanding and all other questions were answered. documented in this encounter Plan of Treatment Not on file documented as of this encounter Visit Diagnoses Not on filedocumented in this encounter Care Teams Warp Hand Relationship Specialty Start Date End Date Anil Gupta MD [address] [place] [address] PCP - General Internal Medicine 04/19/21 Anil Gupta MD [address] [facility] [address] [address] [place] [address] Internal Medicine 04/19/21 Adrien Young MD [address] [facility] [address] [place] [address] Consulting Physician Infectious Diseases 11/06/21 documented as of this encounter
--- OUTSIDE RECORDS SUMMARY | 2024-03-19 07:29 | XMS_ITS | Encounter Summary ---
Author Organization [facility] Address [address] [place] [address] Phone Care Team Providers Care Aircraft Loadmaster Superintendent Name Role Phone Anil Gupta MD Primary Care Provider [phone] Anil Gupta MD Unavailable [phone] Adrien Young MD Unavailable [phone] Reason for Visit * Auth/Cert Specialty Diagnoses / Procedures Referred By Contac t Referred To Contact Referral ID Status Reason Start Date Expiration Date Visits Re quested Visits Authorized [id number] 1 1 Encounter Details Date Type Department Care Team (Late st Contact Info) Description 11/26/2021 11:00 AM CDT Home Care Visit [facility] [address] [address] [address] [place] [address] Neha Borrego RN SN HOME VISIT Social History Tobacco [...] How often do you attend chur or orthodox services? 1 to 4 times per year 10/29/2021 Do you belong to any clubs o r organizations such as gnosticism groups, unions, fraternal or athletic groups, or [...] on file Legal Sex Male 12:56 PM SPECIAL LIBRARIAN Gender Identity Male 05/23/2021 12:08 PM SPECIAL LIBRARIAN Sexual Orientation Straight 05/23/2021 12 :08 PM SPECIAL LIBRARIAN documented as of this encounter Last Filed Vital Signs Vital Sign Reading Time Taken Comments Blood Pressure 92/60 11/26/2021 11:42 AM CDT Pulse 68 11/26/2021 11:42 AM CDT Temperature 36.5 ??C (97.7 ??F) 11/26/2021 11:42 AM C DT Respiratory Rate 18 11/26/2021 11:42 AM CDT Oxygen Saturation 93% 11/26/2021 11:42 AM CDT Inhaled Oxygen Concentration - - Weight - - Height - - Body Mass Index - - documented in this encounter Plan of Treatment Not on file documented as of this encounter Visit Diagnoses Not on filedocumented in this encounter Home Health Visit - Care Plan Visit Details Visit Type -SN Home Visit Discipline -Fci Problems Problem Description Start Date Status Goals Interve ntions Need to Collect Specimen Sample Disciplines: Fci Need to collect specimen sample 11/07/2021 Active - 1 problem intervention scheduled/documen andrew in this visit Learning/Teachin g Needs - IV Therapy Disciplines: Fci Teaching and learning needs for performing home IV therapy 11/07/2021 Active - 1 problem intervention scheduled/documen andrew in this visit Homebound Status Disciplines: Skilled Disciplines Patient's homebound status 11/07/2021 Active 1 goal linked to scheduled/documen andrew intervention 1 goal intervention scheduled/documen andrew in this visit Monitor patient's vital signs every home health visit Disciplines: SN, PT, OT, PHOTOENGRAVING FINISHER, FITTER TYPE BAR AND SEGMENT, Skilled Disciplines Monitor patient's vital signs every [...] goal interventions scheduled/documen andrew in this visit Wound Care [...] visit during episode of care Description: Home primary clinician to measure vital signs during every home [...] by 12/06/21 Wound Risk of Infection No Progression towards healing Description: Wound show progression towards healing by 12/06/21 Wound Care No Interventions Intervention Associated Problem/Goal Status Variance Visit Notes Lab draw Description: Labs: Mondays - CBC w diff, CMP, CRP DX: T81.42XA Ordering dr: Dr Shankar Young Fax to [facility] infusion: [phone] . FOC: Dr. Adrien Young/Daniel Richardson PharmD Problem:Need to Collect Specimen Sample Completed obtained w/o difficulty from PICC, tolerated well Dressing change Description: Skilled Nurse to instruct [...] single lumen picc line , left arm Problem:Learning/Tea leif Needs - IV Therapy Completed Dressing change to left arm PICC performed by SN. Old dressing removed. Well tolerated by patient.. Site aseptic cleanser. Allow to air dry. Applied statlock. Secured with transparent film. See Wound Assessment form for measurements and status of wound. Homebound Status Description: Patient is homebound due [...] health visit during episode of care Completed Assess safety Description: Assess patient safety Problem:Safety concerns Goal:Demonstrate use of safety precautions Completed Instruct Fall Prevention Description: Instruct patient/caregiver in methods to prevent falls Problem:Safety concerns Goal:Demonstrate use of safety precautions Scheduled Instruct on pain management techniques Description: Instruct in pharmacologic and nonpharmacologic pain management techniques. Problem:Pain Goal:Report that pain has been reduced or controlled Scheduled Disposal of Dressing Description: Dispose of soiled dressing by place in bag then place in patient's trashcan. Problem:Wound Risk of Infection Goal:Knowledgeable of infection Completed Instruct Hand Washing Description: Instruct patient/caregiver on hand wash technique Problem:Wound Risk of Infection Goal:Knowledgeable of infection Completed Skilled assessment wound Description: Full wound assessment including measurement weekly. Wound assessment each visit Problem:Wound Care Goal:Progression towards healing Completed completed documented in this encounter Care Teams Aircraft Loadmaster Superintendent Relationship Specialty Start Date End Date Anil Gupta MD [address] [place] [address] PCP - General Internal Medicine 04/19/21 Anil Gupta MD [address] [place] [address] Internal Medicine 04/19/21 Adrien Young MD [address] [facility] [address] [place] [address] Consulting Physician Infectious Diseases 11/06/21 documented as of this encounter
--- OUTSIDE RECORDS SUMMARY | 2024-03-19 07:29 | XMS_ITS | Encounter Summary ---
Author Organization [facility] Address [address] [place] [address] Care Team Providers Care Tax Services Specialist Name Role Phone Anil Gupta MD Primary Care Provider [phone] Anil Gupta MD Unavailable [phone] Adrien Young MD Unavailable [phone] Encounter Details Date Type Department Care Team (Latest Contact Info) Description 12/03/2021 9:30 AM CDT - 12/03/2021 11:59 PM CDT Hospital Encounter [address] [address] Discharge Disposition: Discharge to home [...] often do you attend chur ch or sikh services? 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 POWDER MIXER Gender Identity Male 05/23/2021 12:08 PM CHILI POWDER MIXER Sexual Orientation Straight 05/23/2021 12 :08 PM CHILI POWDER MIXER documented as of this encounter Medications at [...] by mouth daily 03/17/2018 3 nebulizer accessories [facility] See Instructions, 1 each, 1 each, Route to Pharmacy Electronically, [facility]/pharmacy #[id number], [id number], Instructions Replace Required Details, Supply 12/12/2019 [...] Name Priority Date/Time Associated Diagnosis Comments EGFR Routine 12/03/2021 9:30 AM CDT DIFFERENTIAL AUTO Routine 12/03/2021 9:3 0 AM CDT CBC WITH AUTO DIFFERENTIAL Routine 12/03/2021 9:30 AM CDT CRP (ACUTE PHASE) Routine 12/03/2021 9:3 0 AM CDT COMPREHENSIVE METABOLIC PANEL Routine 12/03/2021 9:30 AM CDT documented in this encounter Results * eGFR (12/03/2021 9:30 AM CDT) Pathologist [facility] eGFR >90 90 - 130 mL/min/1. 73 m2 [facility] Comment: Interpretive Data Reference Interval Normal [...] interpretive data was last reviewed 2021. Blood 12/03/2021 9:30 AM CDT 12/03/2021 12:55 PM CDT us Adrien Young MD LAB BLOOD ORDERABLES Final Re sult [facility] [address] [facility] [place] [address] * Differential, auto (12/03/2021 9:30 AM CDT) Pathologist [facility] Neutrophil abs 3.1 1.7 - 6.5 K/cumm [facility] Imm gran abs 0.0 0.0 - 0.1 K/cumm [facility] Lymphocyte abs 1.1 0.8 - 3.3 K/cumm [facility] Monocyte abs 0.8 0.2 - 0.8 K/cumm [facility] Eosinophil abs 0.0 0.0 - 0.5 K/cumm [facility] Basophil abs 0.0 0.0 - 0.1 K/cumm [facility] Neutrophil pct 62.2 % [facility] Comment: Interpretive Data Percent cell count reference ranges are not reported, since discordance with absolute values may lead to misinterpretation of CBC data. Current Interpretive Data was last revised on 2017. Imm gran pct 0.4 % [facility] Comment: Interpretive Data Percent cell count reference ranges are not reported, since discordance with absolute values may lead to misinterpretation of CBC data. Current Interpretive Data was last revised on 2017. Lymphocyte pct 22.2 % [facility] Comment: Interpretive Data Percent cell count reference ranges are not reported, since discordance with absolute values may lead to misinterpretation of CBC data. Current Interpretive Data was last revised on 2017. Monocyte pct 15.0 % [facility] Comment: Interpretive Data Percent cell count reference ranges are not reported, since discordance with absolute values may lead to misinterpretation of CBC data. Current Interpretive Data was last revised on 2017. Eosinophil pct 0.0 % [facility] Comment: Interpretive Data Percent cell count reference ranges are not reported, since discordance with absolute values may lead to misinterpretation of CBC data. Current Interpretive Data was last revised on 2017. Basophil pct 0.2 % [facility] Comment: Interpretive Data Percent cell count reference ranges are not reported, since discordance with absolute values may lead to misinterpretation of CBC data. Current Interpretive Data was last revised on 2017. Blood 12/03/2021 9:30 AM CDT 12/03/2021 12:46 PM CDT us Adrien Young MD LAB BLOOD ORDERABLES Final Re sult [facility] [address] [facility] [place] [address] * (ABNORMAL) CBC with auto differential (12/03/2021 9:30 AM CDT) WBC 5.1 3.8 - 9.9 K/cumm [facility] Hgb 10.5(L) 13.0 - 17.5 g/dL [facility] Hct 32.7(L) 38.9 - 50.3 % [facility] Plt 265 150 - 400 K/cumm [facility] MPV 9.2 9.1 - 12.3 fL [facility] RBC 3.70(L) 4.30 - 5.80 M/cumm [facility] MCV 88.4 81.3 - 96.4 fL [facility] MCH 28.4 27.1 - 33.3 pg [facility] MCHC 32.1(L) 32.3 - 35.7 g/dL [facility] RDW CV 13.2 11.1 - 14.9 % [facility] RDW SD 42.5 35.7 - 48.1 fL [facility] NRBC abs 0.00 0.00 - 0.01 K/cumm [facility] Blood 12/03/2021 9:30 AM CDT 12/03/2021 12:46 PM CDT us Adrien Young MD LAB BLOOD ORDERABLES Final Re sult Performing Organization Address City/[facility] Co de Phone Number [facility] [place] [address] * (ABNORMAL) CRP (acute phase) (12/03/2021 9:30 AM CDT) CRP 12.0(H) <=10.0 mg/L [facility] Blood 12/03/2021 9:30 AM CDT 12/03/2021 12:45 PM CDT us Adrien Young MD LAB BLOOD ORDERABLES Final Re sult [facility] [place] [address] * Comprehensive metabolic panel (12/03/2021 9:30 AM CDT) Sodium 135 135 - 145 mmol/L [facility] Potassium, pl 4.3 3.3 - 4.9 mmol/L [facility] Chloride 98 97 - 110 mmol/L [facility] CO2 28 22 - 32 mmol/L [facility] Anion gap 9 2 - 15 mmol/L [facility] BUN 17 8 - 25 mg/dL [facility] Creatinine 0.87 0.80 - 1.30 mg/dL [facility] Glucose 77 70 - 199 mg/dL [facility] Comment: Interpretive Data Fasting glucose >/= 126 [...] interpretive data was last revised 2017. Calcium 9.3 8.5 - 10.3 mg/dL [facility] Bilirubin, total 0.3 0.1 - 1.2 mg/dL [facility] Protein, pl 6.8 6.5 - 8.5 g/dL [facility] Albumin 3.7 3.5 - 5.0 g/dL [facility] Alk phos 102 40 - 130 Units/L [facility] ALT 19 7 - 55 Units/L [facility] AST 22 10 - 50 Units/L [facility] Blood 12/03/2021 9:30 AM CDT 12/03/2021 12:45 PM CDT us Adrien Young MD LAB BLOOD ORDERABLES Final Re sult [facility] [address] [facility] Department [place] [address] documented in this encounter Visit Diagnoses Not on filedocumented in this encounter Care Teams Tax Services Specialist Relationship Specialty Start Date End Date Anil Gupta MD [address] [place] [address] PCP - General Internal Medicine 04/19/21 Anil Gupta MD [address] [place] [address] Internal Medicine 04/19/21 Adrien Young MD [address] [facility] [address] [place] [address] Consulting Physician Infectious Diseases 11/06/21 documented as of this encounter
--- OUTSIDE RECORDS SUMMARY | 2024-03-19 07:29 | XMS_ITS | Encounter Summary ---
Author Organization [facility] Address [address] [place] [address] Phone Care Team Providers Care Drivematic Machine Operator Name Role Phone Anil Gupta MD Primary Care Provider [phone] Anil Gupta MD Unavailable [phone] Adrien Young MD Unavailable [phone] Reason for Visit * Auth/Cert Specialty Diagnoses / Procedures Referred By Contac t Referred To Contact Referral ID Status Reason Start Date Expiration Date Visits Re quested Visits Authorized [id number] 1 1 Encounter Details Date Type Department Care Team (Late st Contact Info) Description 11/07/2021 Home Care Visit [facility] Home Health - [address] [address] [place] [address] Eulalia Gallo RN SBAR-START OF CARE/RESUMPTION Social History Tobacco Use Types Packs/Day Years [...] often do you attend chur ch or islam services? 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 Gender Identity Male 05/23/2021 12:08 PM VOCATIONAL EDUCATION TEACHER Sexual Orientation Straight 05/23/2021 12 :08 PM VOCATIONAL EDUCATION TEACHER documented as of this encounter Plan of Treatment Not on file documented as of this encounter Visit Diagnoses Not on filedocumented in this encounter Care Teams Drivematic Machine Operator Relationship Specialty Start Date End Date Anil Gupta MD [address] [place] [address] PCP - General Internal Medicine 04/19/21 Anil Gupta MD [address] [place] [address] Internal Medicine 04/19/21 Adrien Young MD [address] [address] Consulting Physician Infectious Diseases 11/06/21 documented as of this encounter
--- OUTSIDE RECORDS SUMMARY | 2024-03-19 07:29 | XMS_ITS | Encounter Summary ---
Author Organization [facility] Medical Group Address [address] [place] [address] Care Team Providers Care Glaze Wiper Name Role Phone Anil Gupta MD Primary Care Provider [phone] Anil Gupta MD Unavailable [phone] Adrien Young MD Unavailable [phone] Reason for Referral * Diagnostic Imaging (Routine) - Closed Specialty Diagnoses / Procedures Referred By Contac t Referred To Contact Diagnoses Lumbar stenosis without neurogenic claudication Procedures XR Spine Lumbar 2 or 3 Views Jayy Granger MD Phone: tel: fax: [address] [phone] Referral ID Status Reason Start Date Expiration Date Visits Re quested Visits Authorized [id number] Closed 11/11/2021 12/11/2022 1 1 Encounter Details Date Type Department Care Team (Late st Contact Info) Description 11/11/2021 Orders Only [facility] [address] [place] [address] Coco Gilmore RN 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 1 to 4 times per year 10/29/2021 Do you belong to any clubs o r organizations such as restoration groups, unions, fraKodkod or athletic groups, or school groups? 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 Lumbar stenosis without neurogenic claudication Lumbar stenosis without neurogenic claudication documented in this encounter Care Teams Glaze Wiper Relationship Specialty Start Date End Date Anil Gupta MD [address] [place] [address] PCP - General Internal Medicine 04/19/21 Anil Gupta MD [address] [facility] [address] [address] [facility] [address] [place] [address] Internal Medicine 04/19/21 Adrien Young MD [address] [place] [address] Consulting Physician Infectious Diseases 11/06/21 documented as of this encounter
--- OUTSIDE RECORDS SUMMARY | 2024-03-19 07:29 | XMS_ITS | Encounter Summary ---
Author Organization [facility] Healthcare Address [address] [place] [address] Care Team Providers Care Family Consumer Scientist Name Role Phone Anil Gupta MD Primary Care Provider [phone] Anil Gupta MD Unavailable [phone] Adrien Young MD Unavailable [phone] Encounter Details Date Type Department Care Team (Latest Contact Info) Description 11/26/2021 11:55 AM CDT - 11/26/2021 11:59 PM CDT Hospital Encounter [address] [address] Discharge Disposition: Discharge to home [...] often do you attend chur ch or temple services? 1 to 4 times per year 10/29/2021 Do you belong to any clubs o r organizations such as jewish groups, unions, fraternal or athletic groups, or [...] on file Legal Sex Male 12:56 PM NECKTIE OPERATOR [employer] PI[employer] Gender Identity Male 05/23/2021 12:08 PM NECKTIE O[employer] Sexual Orientation Straight 05/23/2021 12 :08 PM NECKTIE OPERATOR [employer]ETS [employer] PI[employer]ES documented as of this encounter Medications at [...] by mouth daily 03/17/2018 3 nebulizer accessories [facility] See Instructions, 1 each, 1 each, Route to Pharmacy Electronically, [facility]/pharmacy #[id number], [id number], Instructions Replace Required Details, Supply 12/12/2019 [...] Priority Date/Time Associated Diagnosis Comments EGFR Routine 11/26/2021 11:55 AM CDT DIFFERENTIAL AUTO Routine 11/26/2021 11: 55 AM CDT CBC WITH AUTO DIFFERENTIAL Routine 11/26/2021 11:55 AM CDT CRP (ACUTE PHASE) Routine 11/26/2021 11: 55 AM CDT COMPREHENSIVE METABOLIC PANEL Routine 11/26/2021 11:55 AM CDT documented in this encounter Results * eGFR (11/26/2021 11:55 AM CDT) Pathologist [facility] eGFR >90 90 - 130 mL/min/1. 73 m2 [facility] Comment: Interpretive Data Reference Interval Normal ?>/= [...] interpretive data was last reviewed 2021. Blood 11/26/2021 11:5 5 AM CDT 11/26/2021 3:46 PM CDT us Adrien Young MD LAB BLOOD ORDERABLES Final Re sult [facility] [address] [facility] [place] [address] * Differential, auto (11/26/2021 11:55 AM CDT) Neutrophil abs 4.0 1.7 - 6.5 K/cumm [facility] Imm gran abs 0.0 0.0 - 0.1 K/cumm [facility] Lymphocyte abs 0.9 0.8 - 3.3 K/cumm [facility] Monocyte abs 0.6 0.2 - 0.8 K/cumm [facility] Eosinophil abs 0.0 0.0 - 0.5 K/cumm [facility] Basophil abs 0.0 0.0 - 0.1 K/cumm [facility] Neutrophil pct 71.5 % [facility] Comment: Interpretive Data Percent cell count reference ranges are not reported, since discordance with absolute values may lead to misinterpretation of CBC data. Current Interpretive Data was last revised on 2017. Imm gran pct 0.2 % [facility] Comment: Interpretive Data Percent cell count reference ranges are not reported, since discordance with absolute values may lead to misinterpretation of CBC data. Current Interpretive Data was last revised on 2017. Lymphocyte pct 16.9 % [facility] Comment: Interpretive Data Percent cell count reference ranges are not reported, since discordance with absolute values may lead to misinterpretation of CBC data. Current Interpretive Data was last revised on 2017. Monocyte pct 11.4 % [facility] Comment: Interpretive Data Percent cell count reference ranges are not reported, since discordance with absolute values may lead to misinterpretation of CBC data. Current Interpretive Data was last revised on 2017. Eosinophil pct 0.0 % [facility] Comment: Interpretive Data Percent cell count reference ranges are not reported, since discordance with absolute values may lead to misinterpretation of CBC data. Current Interpretive Data was last revised on 2017. Basophil pct 0.0 % [facility] Comment: Interpretive Data Percent cell count reference ranges are not reported, since discordance with absolute values may lead to misinterpretation of CBC data. Current Interpretive Data was last revised on 2017. Blood 11/26/2021 11:5 5 AM CDT 11/26/2021 3:42 PM CDT us Adrien Young MD LAB BLOOD ORDERABLES Final Re sult [facility] [address] [facility] [place] [address] * (ABNORMAL) CBC with auto differential (11/26/2021 11:55 AM CDT) WBC 5.6 3.8 - 9.9 K/cumm [facility] Hgb 9.5(L) 13.0 - 17.5 g/dL [facility] Hct 30.0(L) 38.9 - 50.3 % [facility] Plt 264 150 - 400 K/cumm [facility] MPV 9.0(L) 9.1 - 12.3 fL [facility] RBC 3.38(L) 4.30 - 5.80 M/cumm [facility] MCV 88.8 81.3 - 96.4 fL [facility] MCH 28.1 27.1 - 33.3 pg [facility] MCHC 31.7(L) 32.3 - 35.7 g/dL [facility] RDW CV 13.3 11.1 - 14.9 % [facility] RDW SD 43.5 35.7 - 48.1 fL [facility] NRBC abs 0.00 0.00 - 0.01 K/cumm [facility] Blood 11/26/2021 11:5 5 AM CDT 11/26/2021 3:42 PM CDT Adrien Young MD LAB BLOOD ORDERABLES Final Re sult Performing Organization Address City/[facility]/ZIP Co de Phone Number [facility] Department of [address] [place] [address] * (ABNORMAL) CRP (acute phase) (11/26/2021 11:55 AM CDT) CRP 30.2(H) <=10.0 mg/L [facility] Blood 11/26/2021 11:5 5 AM CDT 11/26/2021 3:41 PM CDT Adrien Young MD LAB BLOOD ORDERABLES Final Re sult [facility] [place] [address] * (ABNORMAL) Comprehensive metabolic panel (11/26/2021 11:55 AM CDT) Sodium 130(L) 135 - 145 mmol/L [facility] Potassium, pl 4.5 3.3 - 4.9 mmol/L [facility] Chloride 92(L) 97 - 110 mmol/L [facility] CO2 27 22 - 32 mmol/L [facility] Anion gap 11 2 - 15 mmol/L [facility] BUN 17 8 - 25 mg/dL [facility] Creatinine 0.91 0.80 - 1.30 mg/dL [facility] Glucose 71 70 - 199 mg/dL [facility] Comment: Interpretive Data Fasting glucose >/= [...] interpretive data was last revised 2017. Calcium 9.0 8.5 - 10.3 mg/dL [facility] Bilirubin, total 0.2 0.1 - 1.2 mg/dL [facility] Protein, pl 6.6 6.5 - 8.5 g/dL [facility] Albumin 3.6 3.5 - 5.0 g/dL [facility] Alk phos 104 40 - 130 Units/L [facility] ALT 18 7 - 55 Units/L [facility] AST 18 10 - 50 Units/L [facility] Blood 11/26/2021 11:5 5 AM CDT 11/26/2021 3:41 PM CDT Adrien Young MD LAB BLOOD ORDERABLES Final Re sult [facility] [address] [facility] [place] [address] documented in this encounter Visit Diagnoses Not on filedocumented in this encounter Care Teams Family Consumer Scientist Relationship Specialty Start Date End Date Anil Gupta MD [address] [place] [address] PCP - General Internal Medicine 04/19/21 Anil Gupta MD [address] [place] [address] Internal Medicine 04/19/21 Adrien Young MD [address] [facility] [address] [place] [address] Consulting Physician Infectious Diseases 11/06/21 documented as of this encounter
--- OUTSIDE RECORDS SUMMARY | 2024-03-19 07:29 | XMS_ITS | Encounter Summary ---
Author Organization [facility] Home Care Serv[facility] es Address [address] [place] [address] Phone Care Team Providers Care Superintendent Track Name Role Phone Anil Gupta MD Primary Care Provider [phone] Anil Gupta MD Unavailable [phone] Adrien Young MD Unavailable [phone] Reason for Visit * Auth/Cert Specialty Diagnoses / Procedures Referred By Contac t Referred To Contact Referral ID Status Reason Start Date Expiration Date Visits Re quested Visits Authorized [id number] 1 1 Encounter Details Date Type Department Care Team (Latest Contact Info) Description 11/07/2021 3:00 PM CDT Home Care Visit [facility] [address] [address] [address] [place] [address] Eulalia Gallo RN SN OASIS START OF CARE Social History Tobacco Use Types Packs/Day Years [...] any clubs o r organizations such as methodist groups, unions, fraternal or athletic groups, or [...] on file Legal 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 Gender Identity Male 05/23/2021 12:08 PM EXTRUDING PRESS ADJUSTER Sexual Orientation Straight 05/23/2021 12 :08 PM EXTRUDING PRESS ADJUSTER documented as of this encounter Last Filed Vital Signs Vital Sign Reading Time Taken Comments Blood Pressure 90/50 11/07/2021 1:45 PM CDT Pulse 97 11/07/2021 1:40 PM CDT Temperature 36.3 ??C (97.4 ??F) 11/07/2021 1:40 PM CD T Respiratory Rate 18 11/07/2021 1:40 PM CDT Oxygen Saturation 96% 11/07/2021 1:40 PM CDT Inhaled Oxygen Concentration - - Weight - - Height - - Body Mass Index - - documented in this encounter Miscellaneous Notes * Quality Review - Kadie Lewis - 11/07/2021 1:23 PM CDT Select Data Recommendations: M1028 - Comorbidities and Co-existing Conditions ??? Check all that apply See OASIS Guidance Manualfor a complete list of relevant ICD-10 codes Documented Answer: Recommendation: 3 - None of the above Comments: none documented by physician. M1850 - Transferring: Current ability to move safely from bed to chair, or ability to turn and position self in bed if patient is bedfast. Documented Answer: 1 - Able to transfer with minimal human assistance or with use of an assistive device. Recommendation: 2 - Able to bear weight and pivot during the transfer but unable to transfer self. Reason: Clinical documentation reflects a MAHC-10 score greater than or equal to 4-patient is at risk for falls. For the purposes of this OASIS item, assistance includes verbal cuing and/or supervision. M2020 - Management of Oral Medications: Patient's current ability to prepare and take all oral medications reliably and safely, including administration of the correct dosage at the appropriate times/intervals. Excludes injectable and IV medications. (NOTE: This refers to ability, not compliance orwillingness.) Documented Answer: 1 - Able to take medication(s) at the correct times if: (a) individual dosages are prepared in advance by another person; OR (b) another person develops a drug diary or chart. Recommendation: 3 - Unable to take medication unless administered by another person. Comments: Patient is at risk for falls; is patient safe to retrieve meds/water? Kadie Lewis, 11/11/2021, DPO Chart Review & Recommendations by Sweta Santa RN, HCS-D * Home Health Plan for Next Visit - Eulalia Gallo RN - 11/07/2021 1:23 PM CDT Reason for today's visit: admit to [facility] for iv therapy Discuss plan of care labs, picc care with pt and Discharge planning: when iv therapy is complete Plan for next visit: assessment, labs, picc care documented in this encounter Plan of Treatment Not on file documented as of this encounter Visit Diagnoses Not on filedocumented in this encounter Home Health Visit - Care Plan Visit Details Visit Type -SN OASIS Start o f Care Discipline -Detention Problems Problem Description Start Date Status Goals Interventions Medications Disciplines: Detention Management of IV Medications 11/07/2021 Active 1 goal linked to scheduled/docume nted intervention 1 problem intervention scheduled/documen andrew in this visit Need to Collect Specimen Sample Disciplines: Detention Need to collect specimen sample 11/07/2021 Active - 1 problem intervention scheduled/documen andrew in this visit Safety concerns Disciplines: Detention Safety needs related to infusion administration 11/07/2021 Active 1 goal linked to scheduled/docume nted intervention 1 problem intervention scheduled/documen andrew in this visit Learning/Teachin g Needs - IV Therapy Disciplines: Detention Teaching and learning needs for performing home IV therapy 11/07/2021 Active 1 goal linked to scheduled/docume nted intervention 2 problem interventions scheduled/documen andrew in this visit Homebound Status Disciplines: Skilled Disciplines Patient's homebound status 11/07/2021 Active 1 goal linked to scheduled/docume nted intervention 1 goal intervention scheduled/documen andrew in this visit Medications Disciplines: Detention Management of home medications 11/07/2021 Active 1 goal linked to scheduled/docume nted intervention 2 goal interventions scheduled/documen andrew in this visit Monitor patient's vital signs every home health visit Disciplines: SN, PT, OT, SUPERVISOR HOT DIP TINNING, KAYAK MAKER, Skilled Disciplines Monitor patient's vital signs every home health visit. 11/07/2021 Active 1 goal linked to scheduled/docume nted intervention 1 goal intervention scheduled/documen andrew in this visit Multidisciplinar y Case Conference Disciplines: Skilled Disciplines Concurrently discusses plan of treatment and coordinate patient centered care 11/07/2021 Active 1 goal linked to scheduled/docume nted intervention Infection Prevention Disciplines: Skilled Disciplines Infection Prevention 11/07/2021 Active 1 goal linked to scheduled/docume [...] scheduled/docume nted intervention 1 goal intervention scheduled/documen andrwe in this visit Knowledge Deficit - Wound Care Disciplines: Core Disciplines Deficiency of cognitive information related to wound care 11/07/2021 Active 1 goal linked to scheduled/docume nted intervention Wound Care Disciplines: Core Disciplines Wound care needed, #7 back 11/07/2021 Active 1 goal linked to scheduled/docume nted intervention 2 goal interventions scheduled/documen andrew in this visit Wound Care Disciplines: Core Disciplines 11/07/2021 Active 1 goal linked to scheduled/docume nted intervention 1 goal intervention scheduled/documen andrew in this visit Goals Goal Associated Problem Outcome Goal Met? Visit Notes Understand infusion medication regimen Description: Patient/caregiver will verbalize understanding of infusion medication regimen by end of the episode of care. Medications Completed Yes Verbalize emergency procedures, adverse reactions, and who to contact Description: Patient/caregiver will verbalize understanding of adverse reaction and emergency procedures and how to contact MD, RN or pharmacy throughout the episode of care. Safety concerns Progressing No Safely perform IV administration Description: Patient/caregiver will be able to verbalize and demonstrate ability to safely administer IV medication and flushing of line throughout the episode of care. Learning/Teaching Needs - IV Therapy Completed Yes Patient receives care at the most appropriate care setting Description: Patient receives care at the most appropriate care setting. Homebound Status Progressing No Understand and follow medication therapy Description: Patient/caregiver will understand and follow prescribed medication therapy as evidence by having up to date medication list in home & ability to verbalize purpose, schedule, and side effects by the end of the episode of care Medications Progressing No Measure vital signs during every home health visit during episode of care Description: Home dispatcher bus and trolley to measure vital signs during every home health visit during episode of care. Monitor patient's vital signs every home health visit Progressing No Care team will coordinate care Description: Care team will coordinate care centered on patient needs throughout the episode of care. Multidisciplinary Case Conference Progressing No lining caser notified of admit per email and case communication Verbalize signs of infection Description: Patient/caregiver will demonstrate knowledge of infection prevention strategies by verbalizing signs and symptoms of infection. Infection Prevention No Demonstrate use of safety precautions Description: Patient/caregiver maintains safe home environment as evidenced by remaining free from injury and demonstrates use of safety precautions. Safety concerns No Report that pain has been reduced or controlled Description: Patient/caregiver/fami ly will verbalize satisfaction with the patients level of pain and symptom control. Pain Progressing No Knowledgeable of infection Description: Patient will remain free of infection and able to recognize of signs of infection by 11.21.2021. Wound Risk of Infection No Knowledgeable on Woundcare Description: Patient/caregiver will be knowledgeable on wound care procedure as evidenced by successful return demonstration, wound healing evidenced by progressive wound healing and when to seek medical attention evidenced by patient/caregiver ability to verbalize s/sx to report to MD or KAYAK MAKER. Knowledge Deficit - Wound Care Progressing No Progression towards healing Description: Wound #7 back show progression towards healing by 11.21.2021 Wound Care Progressing No Progression towards healing Wound Care No Interventions Intervention Associated Problem/Goal Status Variance Visit Notes IV Infusion Description: Instruct patient/caregiver on IV infusion: Ceftriaxone 2gm in Sterile Water 20mL, infuse intravenously over 5 minutes every 24 hours by slow IV push for 6 weeks Problem:Medications Completed Lab draw Description: Labs: Mondays - CBC w diff, CMP, CRP DX: T81.42XA Ordering dr: Dr Sahnkar Young Fax to [facility] infusion: [phone] . FOC: Dr. Adrien Young/Daniel Richardson PharmD Problem:Need to Collect Specimen Sample Completed Pt and verb understanding will have lab draw starting thursday. Instruct on IV complications Description: Instruct patient/caregiver on how to manage breaks in line, signs/symptoms of complications, who to contact for complications and how to contact the nurse, MD and infusion service Problem:Safety concerns Scheduled IV Administration Description: Skilled Nurse to instruct patient/caregiver on how to properly administer medication saline and heparin. Skilled Nurse to instruct patient/caregiver to administer IV medication as ordered including saline and heparin flushes. Reason for Therapy: surgical site infection. Problem:Learning/Tea leif Needs - IV Therapy Completed demonstrated correctly giving iv infusion via ivp per SASH method while maintaining aseptic technique. Instruct on IV flush Description: Instruct patient/caregiver in how to perform flushing of IV line according to MD orders or protocol. Problem:Learning/Tea leif Needs - IV Therapy demonstrated correctly giving iv infusion per SASH method while maintaining aseptic technique. Homebound Status Description: Patient is homebound due to pain from back surg, needs assist of one to leave home and frequent rest breaks. Problem:Homebound Status Goal:Patient receives care at the most appropriate care setting Completed Patient is homebound due to pain from back surg, needs assist of one to leave home and frequent rest breaks. Instruct medications Description: Instruct patient/caregiver in medication administration, purpose, dosages, preparation, scheduling, side effects, food/drug interactions, storage, drug allergies, and potential complications. Problem:Medications Goal:Understand and follow medication therapy Completed Patient and Caregiver instructed on medication administration, purpose, dosages, preparation, scheduling, side effects, food/drug interactions, and potential complications. Current regimen and compliance reviewed with Patient and Caregiver. Patient and Caregiver verbalizes understanding iv therapy to tx surg site infection. Monitor effectiveness of drug therapy Description: Monitor effectiveness of patient's drug therapy Problem:Medications Goal:Understand and follow medication therapy Completed Monitor Vital Signs Description: Monitor blood pressure, pulse, oxygen saturation, respirations Problem:Monitor patient's vital signs every home health visit Goal:Measure vital signs during every home health visit during episode of care Scheduled Aspects of Care Description: Instruct patient/caregiver on universal precautions and home infection control measures Problem:Infection Prevention Goal:Verbalize signs of infection Pt and verb understanding of home care 24 hour non emergency # for questions or concerns with hhc and infusion, that is on the front of homecare folder and to call 911 for emergencies. Instruct Fall Prevention Description: Instruct patient/caregiver in methods to prevent falls Problem:Safety concerns Goal:Demonstrate use of safety precautions Scheduled Assess safety Description: Assess patient safety Problem:Safety concerns Goal:Demonstrate use of safety precautions Scheduled Instruct on pain management techniques Description: Instruct in pharmacologic and nonpharmacologic pain management techniques. Problem:Pain Goal:Report that pain has been reduced or controlled Scheduled Instruct patient/family/caregiver on infection control and safe disposal of dressing materials Description: Instruct patient/caregiver on how to recognized signs and symptoms of infection and when to notify KAYAK MAKER and/or physician per Wound Education Booklet. Instruct patient/caregiver on infection control measures and how to prevent infections Problem:Wound Risk of Infection Goal:Knowledgeable of infection Scheduled Skilled assessment wound Description: Full wound assessment including measurement weekly. Wound assessment each visit Problem:Wound Care Goal:Progression towards healing Completed Negative pressure wound therapy Description: RONEY negative pressure dressing--Patient was instructed to remove day 7 and leave incision DENTAL CERAMIST ASSISTANT Problem:Wound Care Goal:Progression towards healing Completed Pt and states going to dr on 11.13.2021 to have roney npwt removed and remaining treva from incision. Skilled assessment wound Problem:Wound Care Goal:Progression towards healing Scheduled documented in this encounter Care Teams Superintendent Track Relationship Specialty Start Date End Date Anil Gputa MD [address] [place] [address] PCP - General Internal Medicine 04/19/21 Anil Gupta MD [address] [place] [address] Internal Medicine 04/19/21 Adrien Young MD [address] [facility] [address] [place] [address] Consulting Physician Infectious Diseases 11/06/21 documented as of this encounter
--- OUTSIDE RECORDS SUMMARY | 2024-03-19 07:29 | XMS_ITS | Encounter Summary ---
Author Organization [facility] Home Care Servic es Address [address] [place] [address] Phone Care Team Providers Care Appliance Tester Name Role Phone Anil Gupta MD Primary Care Provider [phone] Anil Gupta MD Unavailable [phone] Adrien Young MD Unavailable [phone] Reason for Visit * Auth/Cert Specialty Diagnoses / Procedures Referred By Contac t Referred To Contact Referral ID Status Reason Start Date Expiration Date Visits Re quested Visits Authorized [id number] 1 1 Encounter Details Date Type Department Care Team (Late st Contact Info) Description 12/03/2021 8:45 AM CDT Home Care Visit [facility] [address] [address] [address] [place] [address] Lois Morrison RN SN HOME VISIT Social History Tobacco [...] often do you attend chur ch or spiritism services? 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 Gender Identity Male 05/23/2021 12:08 PM INDEPENDENT CONTRACTOR Sexual Orientation Straight 05/23/2021 12 :08 PM INDEPENDENT CONTRACTOR documented as of this encounter Last Filed Vital Signs Vital Sign Reading Time Taken Comments Blood Pressure 100/60 12/03/2021 9:00 AM CDT Pulse 66 12/03/2021 9:00 AM CDT Temperature 35.8 ??C (96.5 ??F) 12/03/2021 9:00 AM CD T Respiratory Rate 20 12/03/2021 9:00 AM CDT Oxygen Saturation 91% 12/03/2021 9:00 AM CDT Inhaled Oxygen Concentration - - Weight - - Height - - Body Mass Index - - documented in this encounter Plan of Treatment Not on file documented as of this encounter Visit Diagnoses Not on filedocumented in this encounter Home Health Visit - Care Plan Visit Details Visit Type -SN Home Visit Discipline -Fpc Problems Problem Description Start Date Status Goals Interve ntions Need to Collect Specimen Sample Disciplines: Fpc Need to collect specimen sample 11/07/2021 Active - 1 problem intervention scheduled/documen andrew in this visit Learning/Teachin g Needs - IV Therapy Disciplines: Fpc Teaching and learning needs for performing home IV therapy 11/07/2021 Active - 2 problem interventions scheduled/documen andrew in this visit Homebound Status Disciplines: Skilled Disciplines Patient's homebound status 11/07/2021 Active 1 goal linked to scheduled/documen andrew intervention 1 goal intervention scheduled/documen andrew in this visit Medications Disciplines: Fpc Management of home medications 11/07/2021 Active 1 goal linked to scheduled/documen andrew intervention 1 goal intervention scheduled/documen andrew in this visit Monitor patient's vital signs every home health visit Disciplines: SN, PT, OT, WELDING INSPECTOR, PARADI OPERATOR, Skilled Disciplines Monitor patient's vital signs every [...] certification period ending 01/05/22 Homebound Status No Understand and follow medication therapy Description: Patient/caregiver will understand and follow prescribed medication therapy as evidence by having up to date medication list in home & ability to verbalize purpose, schedule, and side effects by the end of the episode of care 01/05/22 Medications No Measure vital signs during every home health visit during episode of care Description: Home traffic control operator to measure vital signs during every home [...] Ordering dr: Dr Shankar Young Fax to [facility] infusion: [phone] . FOC: Dr. Adrien Young/Daniel Richardson PharmD Problem:Need to Collect Specimen Sample Completed Performed this visit. Patient tolerated well. Instruct Infection Prevention Description: Instruct patient/caregiver in strategies to prevent infection:frequent/proper hand-washing techniques, Rebuck precautions, Standard precautions, avoid crowds and persons with known infections, staying current with immunizations, s/s of infection, use of incentive spirometer, use of antibiotics and encourage adequate diet and fluid intake. Instruct patient/caregiver on how to recognize signs and symptoms of infection and when to notify nurse and/or physician. Problem:Learning/Teac layla Needs - IV Therapy Completed Patient verbalizes understanding. Dressing change Description: Skilled Nurse to instruct [...] single lumen picc line , left arm Problem:Learning/Teac layla Needs - IV Therapy Completed Performed this visit. Patient tolerated well. Homebound Status Description: Patient is homebound due to pain from back surg, needs assist of one to leave home and frequent rest breaks. Problem:Homebound Status Goal:Patient receives care at the most appropriate care setting Completed Patient is homebound due to post surgical limitations, weakness and unsteady gait. Instruct medications Description: Instruct patient/caregiver in medication administration, purpose, dosages, preparation, scheduling, side effects, food/drug interactions, storage, drug allergies, and potential complications. Problem:Medications Goal:Understand and follow medication therapy Completed Medications reviewed and reconciled this visit. Monitor Vital Signs Description: Monitor blood pressure, pulse, oxygen saturation, respirations Problem:Monitor patient's vital signs every home health visit Goal:Measure vital signs during every home health visit during episode of care Scheduled Educate Patient on Infection Prevention Description: Instruct patient on signs and symptoms of infection IE: fever, odor, change in color, increased amount of drainage, purulent drainage, warmth. Problem:Infection Prevention Goal:Verbalize signs of infection Completed Patient and verbalize understanding. Instruct Fall Prevention Description: Instruct patient/caregiver in methods to prevent falls Problem:Safety concerns Goal:Demonstrate use of safety precautions Scheduled Assess safety Description: Assess patient safety Problem:Safety concerns Goal:Demonstrate use of safety precautions Scheduled Instruct on pain management techniques Description: Instruct in pharmacologic and nonpharmacologic pain management techniques. Problem:Pain Goal:Report that pain has been reduced or controlled Scheduled Skilled assessment wound Description: Full wound assessment including measurement weekly. Wound assessment each visit Problem:Wound Care Goal:Progression towards healing Scheduled documented in this encounter Care Teams Appliance Tester Relationship Specialty Start Date End Date Anil Gupta MD [address] [place] [address] PCP - General Internal Medicine 04/19/21 Anil Gupta MD [address] [place] [address] Internal Medicine 04/19/21 Adrien Young MD [address] [facility] [address] [place] [address] Consulting Physician Infectious Diseases 11/06/21 documented as of this encounter
--- OUTSIDE RECORDS SUMMARY | 2024-03-19 07:29 | XMS_ITS | Encounter Summary ---
Author Organization [facility] Healthcare Address [address] [place] [address] Care Team Providers Care Burr Bench Operator Name Role Phone Anil Gupta MD Primary Care Provider [phone] Anil Gupta MD Unavailable [phone] Adrien Young MD Unavailable [phone] Encounter Details Date Type Department Care Team (Latest Contact Info) Description 11/11/2021 10:42 AM CDT - 11/11/2021 11:59 PM CDT Hospital Encounter [address] [address] Discharge Disposition: Discharge to home [...] often do you attend chur ch or mosque services? 1 to 4 times per year 10/29/2021 Do you belong to any clubs o r organizations such as jain groups, unions, fraternal or athletic groups, or [...] on file Legal Sex Male 12:56 PM PUBLICATIONS SALES REPRESENTATIVE Gender Identity Male 05/23/2021 12:08 PM PUBLICATIONS SALES REPRESENTATIVE Sexual Orientation Straight 05/23/2021 12 :08 PM PUBLICATIONS SALES REPRESENTATIVE documented as of this encounter Medications at [...] by mouth daily 03/17/2018 3 nebulizer accessories [facility] See Instructions, 1 each, 1 each, Route to Pharmacy Electronically, [facility]/pharmacy #[id number], [id number], Instructions Replace Required Details, Supply 12/12/2019 [...] Priority Date/Time Associated Diagnosis Comments EGFR Routine 11/11/2021 10:42 AM CDT DIFFERENTIAL AUTO Routine 11/11/2021 10: 42 AM CDT CBC WITH AUTO DIFFERENTIAL Routine 11/11/2021 10:42 AM CDT CRP (ACUTE PHASE) Routine 11/11/2021 10: 42 AM CDT COMPREHENSIVE METABOLIC PANEL Routine 11/11/2021 10:42 AM CDT documented in this encounter Results * eGFR (11/11/2021 10:42 AM CDT) Pathologist [facility] eGFR >90 90 - 130 mL/min/1. 73 m2 [facility] Comment: Interpretive Data Reference Interval Normal [...] interpretive data was last reviewed 2021. Blood 11/11/2021 10:4 2 AM CDT 11/11/2021 4:30 PM CDT us Adrien Young MD LAB BLOOD ORDERABLES Final Re sult [facility] [place] [address] * Differential, auto (11/11/2021 10:42 AM CDT) Neutrophil abs 4.3 1.7 - 6.5 K/cumm [facility] Imm gran abs 0.0 0.0 - 0.1 K/cumm [facility] Lymphocyte abs 1.0 0.8 - 3.3 K/cumm [facility] Monocyte abs 0.6 0.2 - 0.8 K/cumm [facility] Eosinophil abs 0.0 0.0 - 0.5 K/cumm [facility] Basophil abs 0.0 0.0 - 0.1 K/cumm [facility] Neutrophil pct 72.1 % [facility] Comment: Interpretive Data Percent cell count reference ranges are not reported, since discordance with absolute values may lead to misinterpretation of CBC data. Current Interpretive Data was last revised on 2017. Imm gran pct 0.3 % [facility] Comment: Interpretive Data Percent cell count reference ranges are not reported, since discordance with absolute values may lead to misinterpretation of CBC data. Current Interpretive Data was last revised on 2017. Lymphocyte pct 17.6 % [facility] Comment: Interpretive Data Percent cell count reference ranges are not reported, since discordance with absolute values may lead to misinterpretation of CBC data. Current Interpretive Data was last revised on 2017. Monocyte pct 10.0 % [facility] Comment: Interpretive Data Percent cell count reference ranges are not reported, since discordance with absolute values may lead to misinterpretation of CBC data. Current Interpretive Data was last revised on 2017. Eosinophil pct 0.0 % [facility] Comment: Interpretive Data Percent cell count reference ranges are not reported, since discordance with absolute values may lead to misinterpretation of CBC data. Current Interpretive Data was last revised on 2017. Basophil pct 0.0 % [facility] Comment: Interpretive Data Percent cell count reference ranges are not reported, since discordance with absolute values may lead to misinterpretation of CBC data. Current Interpretive Data was last revised on 2017. Blood 11/11/2021 10:4 2 AM CDT 11/11/2021 4:13 PM CDT us Adrien Young MD LAB BLOOD ORDERABLES Final Re sult [facility] Department [place] [address] * (ABNORMAL) CRP (acute phase) (11/11/2021 10:42 AM CDT) CRP 11.9(H) <=10.0 mg/L [facility] Blood 11/11/2021 10:4 2 AM CDT 11/11/2021 4:12 PM CDT Adrien Young MD LAB BLOOD ORDERABLES Final Re sult Performing Organization Address [facility] [[email or web address]] Co de Phone Number [facility] [place] [address] * (ABNORMAL) CBC with auto differential (11/11/2021 10:42 AM CDT) Pathologist [facility] WBC 5.9 3.8 - 9.9 K/cumm [facility] Hgb 8.5(L) 13.0 - 17.5 g/dL [facility] Hct 27.1(L) 38.9 - 50.3 % [facility] Plt 435(H) 150 - 400 K/cumm [facility] MPV 9.5 9.1 - 12.3 fL [facility] RBC 3.02(L) 4.30 - 5.80 M/cumm [facility] MCV 89.7 81.3 - 96.4 fL [facility] MCH 28.1 27.1 - 33.3 pg [facility] MCHC 31.4(L) 32.3 - 35.7 g/dL [facility] RDW CV 13.1 11.1 - 14.9 % [facility] RDW SD 43.1 35.7 - 48.1 fL [facility] NRBC abs 0.00 0.00 - 0.01 K/cumm [facility] Blood 11/11/2021 10:4 2 AM CDT 11/11/2021 4:13 PM CDT us Adrien Young MD LAB BLOOD ORDERABLES Final Re sult Performing Organization Address [facility] [[email or web address]] Co de Phone Number [facility] [place] [address] * Comprehensive metabolic panel (11/11/2021 10:42 AM CDT) Sodium 136 135 - 145 mmol/L [facility] Potassium, pl 4.7 3.3 - 4.9 mmol/L [facility] Chloride 98 97 - 110 mmol/L [facility] CO2 26 22 - 32 mmol/L [facility] Anion gap 12 2 - 15 mmol/L [facility] BUN 17 8 - 25 mg/dL [facility] Creatinine 0.88 0.80 - 1.30 mg/dL [facility] Glucose 81 70 - 199 mg/dL [facility] Comment: Interpretive Data Fasting glucose >/= [...] interpretive data was last revised 2017. Calcium 9.1 8.5 - 10.3 mg/dL [facility] Bilirubin, total 0.3 0.1 - 1.2 mg/dL [facility] Protein, pl 6.6 6.5 - 8.5 g/dL [facility] Albumin 3.5 3.5 - 5.0 g/dL [facility] Alk phos 119 40 - 130 Units/L [facility] ALT 31 7 - 55 Units/L [facility] AST 23 10 - 50 Units/L [facility] Blood 11/11/2021 10:4 2 AM CDT 11/11/2021 4:12 PM CDT us Adrien Young MD LAB BLOOD ORDERABLES Final Re sult [facility] [place] [address] documented in this encounter Visit Diagnoses Not on filedocumented in this encounter Care Teams Burr Bench Operator Relationship Specialty Start Date End Date Anil Gupta MD [address] [place] [address] PCP - General Internal Medicine 04/19/21 Anil Gupta MD [address] [place] [address] Internal Medicine 04/19/21 Adrien Young MD [address] [facility] [address] [place] [address] Consulting Physician Infectious Diseases 11/06/21 documented as of this encounter
--- OUTSIDE RECORDS SUMMARY | 2024-03-19 07:29 | XMS_ITS | Encounter Summary ---
Author Organization [facility] Healthcare Address [address] [place] [address] Care Team Providers Care Application Specialist Name Role Phone Anil Gupta MD Primary Care Provider [phone] Anil Gupta MD Unavailable [phone] Adrien Young MD Unavailable [phone] Encounter Details Date Type Department Care Team (Latest Contact Info) Description 11/19/2021 10:09 AM CDT - 11/19/2021 11:59 PM CDT Hospital Encounter [address] [address] Discharge Disposition: Discharge to home [...] any clubs o r organizations such as mormon groups, unions, fraternal or athletic groups, or [...] on file Legal Sex Male 12:56 PM IMPLEMENTATION ARCHITECT Gender Identity Male 05/23/2021 12:08 PM IMPLEMENTATION ARCHITECT Sexual Orientation Straight 05/23/2021 12 :08 PM IMPLEMENTATION ARCHITECT documented as of this encounter Medications at [...] by mouth daily 03/17/2018 3 nebulizer accessories [facility] See Instructions, 1 each, 1 each, Route to Pharmacy Electronically, [facility]/pharmacy #[id number], [id number], Instructions Replace Required Details, Supply 12/12/2019 [...] Priority Date/Time Associated Diagnosis Comments EGFR Routine 11/19/2021 10:09 AM CDT CBC WITHOUT DIFFERENTIAL Routine 11/19/2021 10:09 AM CDT CRP (ACUTE PHASE) Routine 11/19/2021 10: 09 AM CDT COMPREHENSIVE METABOLIC PANEL Routine 11/19/2021 10:09 AM CDT documented in this encounter Results * (ABNORMAL) eGFR (11/19/2021 10:09 AM CDT) [facility] eGFR 87(L) 90 - 130 mL/min/1. 73 m2 [facility] Comment: Interpretive Data Reference Interval [...] interpretive data was last reviewed 2021. Blood 11/19/2021 10:0 9 AM CDT 11/19/2021 1:51 PM CDT us Adrien Young MD LAB BLOOD ORDERABLES Final Re sult Performing Organization Address [facility] Co de Phone Number [facility] [place] [address] * CRP (acute phase) (11/19/2021 10:09 AM CDT) CRP 7.3 <=10.0 mg/L [facility] Blood 11/19/2021 10:0 9 AM CDT 11/19/2021 1:46 PM CDT us Adrien Young MD LAB BLOOD ORDERABLES Final Re sult Performing Organization Address City/[facility] Co de Phone Number [facility] [place] [address] * (ABNORMAL) CBC without differential (11/19/2021 10:09 AM CDT) [facility] WBC 4.9 3.8 - 9.9 K/cumm [facility] Hgb 9.5(L) 13.0 - 17.5 g/dL [facility] Hct 29.2(L) 38.9 - 50.3 % [facility] Plt 388 150 - 400 K/cumm [facility] MPV 9.1 9.1 - 12.3 fL [facility] RBC 3.30(L) 4.30 - 5.80 M/cumm [facility] MCV 88.5 81.3 - 96.4 fL [facility] MCH 28.8 27.1 - 33.3 pg [facility] MCHC 32.5 32.3 - 35.7 g/dL [facility] RDW CV 13.4 11.1 - 14.9 % [facility] RDW SD 43.7 35.7 - 48.1 fL [facility] NRBC abs 0.00 0.00 - 0.01 K/cumm [facility] Blood 11/19/2021 10:0 9 AM CDT 11/19/2021 1:46 PM CDT Adrien Young MD LAB BLOOD ORDERABLES Final Re sult [facility] Department [place] [address] * (ABNORMAL) Comprehensive metabolic panel (11/19/2021 10:09 AM CDT) [facility] Sodium 128(L) 135 - 145 mmol/L [facility] Potassium, pl 4.6 3.3 - 4.9 mmol/L [facility] Chloride 91(L) 97 - 110 mmol/L [facility] CO2 27 22 - 32 mmol/L [facility] Anion gap 10 2 - 15 mmol/L [facility] BUN 15 8 - 25 mg/dL [facility] Creatinine 0.94 0.80 - 1.30 mg/dL [facility] Glucose 94 70 - 199 mg/dL [facility] Comment: Interpretive Data Fasting glucose >/= [...] 2017. Calcium 9.3 8.5 - 10.3 mg/dL [facility] Bilirubin, total 0.5 0.1 - 1.2 mg/dL [facility] Protein, pl 6.8 6.5 - 8.5 g/dL [facility] Albumin 3.8 3.5 - 5.0 g/dL [facility] Alk phos 112 40 - 130 Units/L [facility] ALT 23 7 - 55 Units/L [facility] AST 26 10 - 50 Units/L [facility] Blood 11/19/2021 10:0 9 AM CDT 11/19/2021 1:46 PM CDT Adrien Young MD LAB BLOOD ORDERABLES Final Re sult [facility] Department [place] [address] documented in this encounter Visit Diagnoses Not on filedocumented in this encounter Care Teams Application Specialist Relationship Specialty Start Date End Date Anil Gupta MD [address] [place] [address] PCP - General Internal Medicine 04/19/21 Anil Gupta MD [address] [place] [address] Internal Medicine 04/19/21 Adrien Young MD [address] [facility] [address] [place] [address] Consulting Physician Infectious Diseases 11/06/21 documented as of this encounter
--- OUTSIDE RECORDS SUMMARY | 2024-03-19 07:29 | XMS_ITS | Encounter Summary ---
Author Organization [facility] Medical Group Address [address] [place] [address] Care Team Providers Care Driving Instructor Name Role Phone Anil Gupta MD Primary Care Provider [phone] Anil Gupta MD Unavailable [phone] Adrien Young MD Unavailable [phone] Reason for Referral * Diagnostic Imaging (Routine) - Closed Specialty Diagnoses / Procedures Referred By Contac t Referred To Contact Diagnoses Postlaminectomy syndrome, lumbar region Procedures XR Spine Lumbar 2 or 3 Views Jayy Granger MD Phone: tel: fax: [facility] [address] [place] [address] Referral ID Status Reason Start Date Expiration Date Visits Re quested Visits Authorized [id number] Closed 11/13/2021 12/13/2022 1 1 Encounter Details Date Type Department Care Team (Late st Contact Info) Description 11/13/2021 Orders Only [facility] [address] [facility] [place] [address] Jayy Granger MD [address] [facility] [address] [place] [address] Postlaminectomy syndrome, lumbar region (Primary Dx) Social History Tobacco Use Types [...] often do you attend chur ch or faith services? 1 to 4 times per year [...] on file Legal Sex Male 12:56 PM INFANTRY OPERATIONS SPECIALIST Gender Identity Male 05/23/2021 12:08 PM INFANTRY OPERATIONS SPECIALIST Sexual Orientation Straight 05/23/2021 12 :08 PM INFANTRY OPERATIONS SPECIALIST documented as of this encounter Plan [...] encounter Visit Diagnoses Diagnosis Postlaminectomy syndrome, lumbar region- Primary Postlaminectomy syndrome, lumbar region documented in this encounter Care Teams Driving Instructor Relationship Specialty Start Date End Date Anil Gupta MD [address] [place] [address] PCP - General Internal Medicine 04/19/21 Anil Gupta MD [address] [place] [address] Internal Medicine 04/19/21 Adrien Young MD [address] [facility] [address] [place] [address] Consulting Physician Infectious Diseases 11/06/21 documented as of this encounter
--- OUTSIDE RECORDS SUMMARY | 2024-03-19 07:30 | XMS_ITS | Encounter Summary ---
Author Organization [facility] Healthcare Address [address] [place] [address] Care Team Providers Care Occupational Health Rn Name Role Phone Anil Gupta MD Primary Care Provider [phone] Anil Gupta MD Unavailable [phone] Reason for Visit * Auth/Cert Specialty Diagnoses / Procedures Referred By Contac t Referred To Contact Diagnoses Infection of lumbar spine (CMS/HCC) (HCC) Post Op Wound Infection/ Ortho Procedures n/a Referral ID Status Reason Start Date Expiration Date Visits Re quested Visits Authorized [id number] 1 1 Encounter Details Date Type Department Care Team (Late st Contact Info) Description 11/03/2021 7:30 AM CDT - 11/03/2021 9:25 AM CDT Surgery [facility] Operating Room [address] [place] [id number] [place] [address] [address] INCISION AND DRAINAGE - BACK Surgery Details Date/Time Status Location OR Service Patient Class Case Class Case Type Trauma Case? 11/03/2021 7:30 AM Posted [facility] OPERATING ROOM OR Orthopaedics Inpatient Emergent Panel 1 Procedure LRB Anes Op Region Wound Class Comments INCISION AND DRAINAGE - BACK N/A General Back Class III - Contaminated RQ 0730, SA Needed Surgeon Surgeon Role Service Panel Milad Garcia MD Primary Orthopaedics 1 documented in this encounter Social History [...] How often do you attend chur or mandaeism services? 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 documented as of this encounter Last Filed Vital Signs Vital Sign Reading Time Taken Comments Blood Pressure 98/61 11/03/2021 4:00 AM CDT Pulse 62 11/03/2021 4:00 AM CDT Temperature 36.7 ??C (98 ??F) 11/03/2021 4:00 AM CDT Respiratory Rate 16 11/03/2021 4:00 AM CDT Oxygen Saturation 98% 11/03/2021 4:00 AM CDT Inhaled Oxygen Concentration - - Weight 80.4 kg (177 lb 4 oz) 10/28/2021 10:45 PM CDT Height 182.9 cm (6') 10/28/2021 10:45 PM CDT Body Mass Index 24.04 10/28/2021 10:45 PM CDT documented in this encounter Discharge Summaries * Juliocesar Calix MD - 11/06/2021 9:14 AM CDT Inpatient Discharge Summary Patient Name - Douglas Horn Patient Age - 71 yrs Patient - [id number] [facility] - [id number] Document Creation Date: 11/06/2021 Admitting Provider, MD: Marin Phelan MD Discharge Provider, MD: Juliocesar Calix MD Primary Care Physician at Discharge: Anil Gupta MD [phone] Admission Date: 10/28/2021 Discharge Date/time: 11/06/2021 Admission Location: [facility] Hospital LOS - LOS: 9 days DETAILS OF HOSPITAL STAY Hospital Problems/Diagnoses Principal Problem: Severe sepsis (HCC) Active Problems: Lumbar stenosis without neurogenic claudication Infection of lumbar spine (CMS/HCC) (HCC) Infection following a procedure, deep incisional surgical site, initial encounter History of Clostridium difficile colitis GERD without esophagitis Hyponatremia SIADH (syndrome of inappropriate ADH production) (CMS/HCC) (HCC) Moderate malnutrition (CMS/HCC) Reason for Hospitalization: Serratia marcescen bactermia, post op wound infection Hospital Course: 71-year-old male with a history of SIADH, history of C diff colitis with 3 recurrences, history of lumbar limb radiculopathy status post posterior lateral arthrodesis and anterior interbody fusion L5-S1,??posterior nonsegmental instrumentation, L5 wide bilateral lumbar laminectomy, facetectomy, foraminotomy for decompression with re-exploration and decompression right L5-S1, placement of an 11 mm12 degree interbody device, use of morselized autograft with bone densitometer reader, bone marrow aspirate with left iliac crest through a separate incision with Dr. Granger on 10/11/2021 presented with fever back pain. ? He reports he had his stitches removed after surgery on 10/21/2021. ??He had some diarrhea which improved after taking vancomycin oral tablets that he had left over from when he had Clostridium difficile infection in the past. He then started having back pain and chills. ??He reports his pain feels more at the surgical site. ??He presented to [facility] for further evaluation.vAt [facility], his exam reportedly was notable for pratima pus draining from the surgical site. ??There wasalso noted to his sense of the wound. ??He was initially hypotensive, had a sodium 128 (with a history of SIADH),??white blood cell count 14.8. ??He was tachycardic and recently had a fever. ??Antibiotics were not started. ??He had a chest x-ray which was clear. ??Sepsis lactate was within normal limits. Patient was transferred here for further treatment. ?? Blood cx were positive for Serratia marcescens. He underwent I+D on 10/29. He had a repeat debridement on 11/03. He was seen by ID and plan for IV antibiotic with PO vanco prophylactis. ?? Discharge Details Physical Exam at Discharge: Discharge Condition: good Pulse: 75 Resp: 15 BP: 90/48 Temp: 36.4 ??C (97.5 ??F) Weight: 80.4 kg (177 lb 4 oz) Pertinent Exam Findings at Discharge: General appearance: alert, cooperative, no distress, oriented to person, place, and time Lungs: breath sounds normal and symmetric; no rales or wheezes Heart: regular rhythm, normal S1 and S2, without murmurs, gallops or rubs Abdomen: soft without mass, non-tender, with normal bowel sounds Extremities: no clubbing, cyanosis or edema Head: Normocephalic, without trauma Eyes: sclera and conjunctiva clear, EOMI and PERRLA, lids normal Nose: nares open; no septal deviation is noted Joints: ranges of motion normal without inflammation, effusion or deformity Skin: no rashes or other abnormalities are noted Neurologic: mental status normal; alert and oriented X 3; cranial nerves II - XII are grossly intact Discharge Disposition: Discharge to home or self care Code Status at Discharge: Full Code Active Issues & Recommended Plan for Follow-up: PCP, spine Allergies: Patient has no known allergies. Discharge Medications: Your medication list START taking these medications Instructions Last Dose Given Next Dose Due cefTRIAXone syringe Commonly known as: ROCEPHIN Infuse 20 mL (2,000 mg total) into a venous catheter daily oxyCODONE 5 mg immediate release tablet Commonly known as: ROXICODONE Take 1 tablet (5 mg total) by mouth every 4 (four) hours as needed for pain pantoprazole DR 40 mg EC tablet Commonly known as: PROTONIX Take 1 tablet (40 mg total) by mouth daily CHANGE how you take these medications Instructions Last Dose Given Next Dose Due vancomycin 125 mg capsule Commonly known as: VANCOCIN What changed: when to take this Take 1 capsule (125 mg total) by mouth daily CONTINUE taking these medications Instructions Last Dose Given Next Dose Due albuterol HFA 90 mcg/actuation inhaler Commonly known as: PROVENTIL HFA,VENTOLIN HFA,PROAIR HFA budesonide-formoteroL 160-4.5 mcg/actuation inhaler Commonly known as: SYMBICORT fluticasone propionate 50 mcg/actuation nasal spray Commonly known as: FLONASE ipratropium 42 mcg (0.06 %) nasal spray Commonly known as: ATROVENT pregabalin 300 mg capsule Commonly known as: LYRICA Lyrica 150 mg capsule Generic drug: pregabalin rOPINIRole 2 mg tablet Commonly known as: REQUIP tiZANidine 4 mg tablet Commonly known as: ZANAFLEX Take 1 tablet (4 mg total) by mouth every 6 (six) hours as needed for muscle spasms valACYclovir 500 mg tablet Commonly known as: VALTREX STOP taking these medications oxyCODONE-acetaminophen 5-325 mg per tablet Commonly known as: Percocet Where to Get Your Medications These medications were sent to [facility] [place], [place] - [facility] [address] [address] ?? oxyCODONE 5 mg immediate release tablet ?? pantoprazole DR 40 mg EC tablet ?? vancomycin 125 mg capsule Information about where to get these medications is not yet available Ask your nurse or doctor about these medications ?? cefTRIAXone syringe Time Spent in Discharge Process: I have spent 35 minutes on discharge planning activities. Time spent was on Coordination of care, Counselling with patient/family, discharge exam and Other provider communication Test Results Pending at Discharge (If Blank, None Found): Pending Labs Order Current Status Aerobic and anaerobic culture and gram stain Wound Back Preliminary result Mycobacteriology (AFB) culture and acid-fast stain Wound Back Preliminary result Mycobacteriology (AFB) culture and acid-fast stain Wound Back Preliminary result Mycology (fungal) culture Wound Back Preliminary result Mycology (fungal) culture Wound Back Preliminary result Tissue aerobic and anaerobic culture and gram stain Tissue Back Preliminary result Operative Procedures Performed (If Blank, None Found): Procedure(s): INCISION AND DRAINAGE - BACK Outpatient Follow-Up: Future Appointments Date Time Provider Department Center 11/13/2021 11:00 AM Jayy Granger MD [id number] [facility] 11/20/2021 11:00 AM Jayy Granger MD [id number] [facility] Contact Information for Follow-ups [facility] Home Infusion [address] [place] [phone] Next Steps: Follow up Instructions: will supply antibiotic medication at discharge [facility] [address] [address] Next Steps: Follow up Instructions: RN will see pt. at home for iv antibiotic administration, PICC line dressing changes and labwork ordered per . Kristine Young MD Specialty: Infectious Diseases, Internal Medicine Relationship: Consulting Physician [address] [place] [address] [facility] [address] Next Steps: Follow up Questions: To provider: KRISTINE YOUNG Please schedule an appointment with the following provider(s): [facility] Home Infusion [address] [place] [phone] Follow up will supply antibiotic medication at discharge [facility] [address] [place] [phone] Follow up RN will see pt. at home for iv antibiotic administration, PICC line dressing changes and labwork ordered per . Kristine Young MD [address] [address] ANCILLARY INFORMATION Other Procedures & Diagnostic Tests: ECG 12 lead Result Date: 10/29/2021 Vent Rate: 91 bpm RR Interval: 659 msec [place] Interval: 188 msec QRS Duration: 137 msec QT Interval: 343 msec QTC Interval: 391 msec P-R-T Avinger: 47 - -70 - 42 degrees SINUS RHYTHM LEFT AXIS DEVIATION RIGHT BUNDLE BRANCH BLOCK ABNORMAL ECG Electronically Signed By: Jessee Florence MD Recent Labs: Recent Labs Lab Units 11/05/21 0611/04/21 0811/02/21 0656 WBC K/cumm 5.9 11.6* 6.1 HEMOGLOBIN g/dL 8.0* 8.9* 10.3* HEMATOCRIT % 24.6* 26.9* 31.4* PLATELETS K/cumm 419* 486* 418* Recent Labs Lab Units 11/05/21 0616 11/04/21 0811/02/21 0656 10/31/21 0500 WBC K/cumm 5.9 11.6* 6.1 5.0 HEMOGLOBIN g/dL 8.0* 8.9* 10.3* 8.9* HEMATOCRIT % 24.6* 26.9* 31.4* 28.1* PLATELETS K/cumm 419* 486* 418* 323 NEUTROS PCT % 64.3 78.3 74.6 72.4 LYMPHS PCT % 32.2 13.8 13.7 14.5 MONOS PCT % 3.5 7.1 11.2 12.1 EOS PCT % -- 0.0 0.0 0.0 Recent Labs Lab Units 11/05/2161511/04/21 0811/02/21201611/02/21 0656 SODIUM mmol/L 133* 129* -- 131* POTASSIUM PLASMA mmol/L 4.9 4.5 -- 4.4 CHLORIDE mmol/L 99 96* -- 96* CO2 mmol/L 25 26 -- 29 BUN SERUM mg/dL 14 13 -- 9 CREATININE mg/dL 0.92 0.76* -- 0.90 [id number] mL/min/1.73 m2 89 97 -- 92 GLUCOSE mg/dL 96 106 -- 99 POC GLUCOSE MONITOR -- -- < > -- CALCIUM mg/dL 8.7 8.5 -- 8.9 ALBUMIN g/dL 3.0* -- -- -- PHOSPHORUS PLASMA mg/dL 2.7 -- -- -- < > = values in this interval not displayed. Recent Labs Lab Units 11/05/21 0616 11/04/21 0811/03/21 0542 11/02/21201611/02/21 0656 SODIUM mmol/L 133* 129* -- -- 131* POTASSIUM PLASMA mmol/L 4.9 4.5 -- -- 4.4 CHLORIDE mmol/L 99 96* -- -- 96* CO2 mmol/L 25 26 -- -- 29 ANIONGAP mmol/L 9 7 -- -- 6 GLUCOSE mg/dL 96 106 -- -- 99 POC GLUCOSE MONITOR mg/dL -- -- 86 < > -- BUN SERUM mg/dL 14 13 -- -- 9 CREATININE mg/dL 0.92 0.76* -- -- 0.90 CALCIUM mg/dL 8.7 8.5 -- -- 8.9 ALBUMIN g/dL 3.0* -- -- -- -- < > = values in this interval not displayed. No lab exists for component: LABALBU Lab Results Component Value Date GLUCOSE 96 11/05/2021 GLUCOSE 106 11/04/2021 GLUCOSE 86 11/03/2021 Implant: Implants Implant [employer] Allograft Bone Putty 2.5cc 700-025 - [id number] - Implanted Spine Lumbar Inventory item: [employer] ALLOGRAFT BONE PUTTY 2.5CC 700-025 Model/Cat number: [id number] Health Services Administrator: excentos Lot number: [id number] Device identifier: [id number] Device identifier type: GS1 As of 10/11/2021 Status: Implanted IsreBounces Inqu Paste Mix Plus Deputy Felony Clerk 10cc Bone Graft Hyaluronic Acid Poly [id number] - [id number] - Implanted Spine Lumbar Inventory item: [employer] Inqu Paste Mix Plus Deputy Felony Clerk 10cc Bone Graft Hyaluronic Acid Poly [id number] Model/Cat number: [id number] Health Services Administrator: [employer]Plus As of 10/11/2021 Status: Implanted Core Link Foundation L31 Mm X W10 Mm X H11 Mm 3d 12 D Curve Cage Spinal [id number] - [id number] -Implanted Spine Lumbar Inventory item: CORE LINK Foundation L31 Mm X W10 Mm X H11 Mm 3d 12 D Curve Cage Spinal [id number] Model/Cat number: [id number] Health Services Administrator: Core Link Lot number: [id number] Device identifier: [id number] Device identifier type: HIBC As of 10/11/2021 Status: Implanted Core Link [place] 6.5mm 45mm Spine Pedicle Screw Bone 5500 Series [id number] - [id number] - Implanted Spine Lumbar Inventory item: CORE LINK [place] 6.5mm 45mm Spine Pedicle Screw Bone 5500 Series [id number] Model/Cat number: [id number] Health Services Administrator: Core Link As of 10/11/2021 Status: Implanted Core Link [place] Screw Set 5500 Series 95022-99 - [id number] - Implanted Spine Lumbar Inventory item: CORE LINK [place] Screw Set 5500 Series [id number] Model/Cat number: [id number] Health Services Administrator: Core Link As of 10/11/2021 Status: Implanted Core Link [place] 5.5mm 40mm Line Prebent Nabor Spinal Nonsterile 5500 Series R5510- 040 - [id number] - Implanted Spine Lumbar Inventory item: CORE LINK [place] 5.5mm 40mm Line Prebent Nabor Spinal Nonsterile 5500 Series [id number]/Cat number: [id number] Health Services Administrator: Core Link As of 10/11/2021 Status: Implanted General Precautions (If Blank, None Found): Isolation Status: No active isolations Nutritional Status and in-house recommendations: Dietary Orders (From admission, onward) Start Ordered 11/04/21 1300 Oral Nutrition Supplements Select Supplement: Ensure - Devens, Ensure - Any Flavor 3 times daily and at bedtime Question Answer Comment Select Supplement: Ensure - Devens Select Supplement: Ensure - Any Flavor 11/04/21 1017 11/03/21 1124 Adult Diet Regular Diet effective now Question: ([facility]) Diet type Answer: Regular 11/03/21 1123 Anticoagulation Indication: INR: No results found for requested labs within last 720 hours. Warfarin Administrations (last 168 hours) None Oxygen Status: No data found. Wound Care Instructions Negative Pressure Wound Therapy Back (Active) Site Assessment DINORA 11/05/212034 Marlena-wound Assessment DINORA 11/05/212034 Unit Type Roney 11/05/212034 Dressing Status Clean, dry, intact 11/05/212034 Active LDAs (If Blank, None Found): Patient Emergency Contact: Primary Emergency Contact: BAMBI HORN Immunization Status at Discharge Immunization History Administered Date(s) Administered ??? Moderna SARS-CoV-2 Vaccination (12+ YRS) 05/23/2020, 06/20/2020, 11/21/2020 Juliocesar Calix MD documented in this encounter Discharge Instructions * Discharge Instr - Diet* Selene Perrin RD - 11/03/2021 1:55 PM CDT Eating a high protein diet can aid in wound healing. Try to eat 5-6 smaller meals per day with a protein source at each meal. Protein rich foods include meats, dairy products, beans, nuts/seeds, and eggs. You can also drink protein shakes like Ensure High Protein, Ensure Max, Premier Protein, Orgain, Fairlife, or a homemade protein shake once daily to help increase protein intake. Aim for 100 grams of protein per day during the healing process. Refer to the wound healing and your diet handoutthat was given to you at discharge for a list of protein foods. Foods high in vitamin C can help build a healthy immune system. These include pepper, broccoli, cabbage, brussels sprouts, kale, avocado, kiwi, orange, strawberries, pineapple, and cantaloupe * Attachments The following attachments cannot be sent through Care Everywhere. * High Protein / High Calorie Diet (General Information) (Turkish) * Wound Healing and Your Diet (General Information) (Turkish) documented in this encounter Medications at Time [...] into a venous catheter daily 11/06/2021 3 lansoprazole (Prevacid) 30 mg capsule 1 capsule (30 mg total) 06/22/2015 4 LYRICA 150 mg capsule Take 2 capsules (300 mg total) by mouth daily 03/17/2018 3 nebulizer accessories [facility] Instructions, 1 each, 1 each, Route to Pharmacy Electronically, [id number], [id number] [phone], Instructions Replace Required Details, Supply 12/12/2019 [...] Take 300 mg by mouth nightly 3 tiZANidine (ZANAFLEX) 4 mg tabletIndications :Muscle [...] 11/06/2021 3 documented as of this encounter Ordered Prescriptions Prescription Sig Dispense Quantity Refills Last Filled Start Date End Date vancomycin (VANCOCIN) 125 mg capsuleIndications :Clostridioides difficile infection Take 1 capsule (125 mg total) by mouth daily 60 capsule 11/06/[address] (PROTONIX) 40 mg EC tabletIndications: Stress Ulcer Prophylaxis Take 1 tablet (40 mg total) by mouth daily 30 tablet 11/06/2021 3 oxyCODONE (ROXICODONE) 5 mg immediate release tabletIndications: Pain Take 1 tablet (5 mg total) by mouth every 4 (four) hours as needed for pain 20 tablet 11/06/2021 3 cefTRIAXone (ROCEPHIN) syringeIndications :Bone/Joint Infection Infuse 20 mL (2,000 mg total) into a venous catheter daily 11/06/2021 3 documented in this encounter Discharge Disposition Disposition Code Departure Means Destination Discharge to home, home health skilled care documented in this encounter Progress Notes * Kristine Young MD - 11/06/2021 8:21 AM CDT Infectious Disease Progress Note PATIENT NAME: Douglas Horn : 1950 ADMISSION DATE: 10/28/2021 HOSPITAL COURSE: T-max 36.6 T-cur 36.2 WBC 5,900 Hgb 8.9 Up in his room independently. Drains removed. Wound vac remains until seen in the office. PICC placed. Secured with an Anderson wrap. Spoke with Micro and Ceftriaxone remains active with FLY of < 0.25. Same as before antibiotics introduced. Inducible resistance unlikely. Discussed with pharmacy ID service as well. [facility] has nursing available. Orders written and faxed. INTERIM HISTORY: Prior use of a PICC line for treating LRTI Multiple courses of inhaled Tobramycin 2021 for Bronchiectasis. History of L5-S1 decompression and diskectomy June 03, 2021. Status post L5-S1 interbody fusion October 11, 2021. I&D lumbar wound 10/29/2021 Blood cultures 10/28 +Serratia marcescens Blood cultures 10/29 +Serratia Incisional wound 10/29 +Serratia Wound culture 11/03 +Serratia Vancomycin x2 Cefepime 10/29-11/01 Meropenem 11/02-11/05 Ceftriaxone 11/06 > Review of Systems Constitutional: Positive for weight loss. Negative for fever. HENT: Negative for congestion. Respiratory: Negative for cough and shortness of breath. Cardiovascular: Negative for chest pain. Gastrointestinal: Negative for diarrhea. Genitourinary: Negative for dysuria. Musculoskeletal: Positive for back pain. Neurological: Positive for sensory change. Negative for focal weakness. Medications: acetaminophen, 1,000 mg, oral, Q8H JESSENIA cefTRIAXone, 2,000 mg, intravenous, Q24H JESSENIA lidocaine, 1-2 mL, subcutaneous, Once pantoprazole DR, 40 mg, oral, Daily lubricant, 1 drop, each eye, TID pregabalin, 150 mg, oral, Daily pregabalin, 300 mg, oral, Nightly rOPINIRole, 2 mg, oral, Nightly sodium chloride 0.9%, 0.5-20 mL, intra-catheter, Q8H JESSENIA sodium chloride 0.9%, 5-10 mL, intra-catheter, Q12H JESSENIA vancomycin, 125 mg, oral, Daily Vitals: 24hr Min/Max: Temp Min: 36.2 ??C (97.1 ??F) Max: 36.6 ??C (97.8 ??F) Pulse Min: 68 Max: 75 BP Min: 90/48 Max: 98/58 Resp Min: 14 Max: 16 SpO2 Min: 95 % Max: 100 % INTAKE/OUTPUT: I/O last 3 completed shifts: In: 1380 [P.O.:1380] Out: 975 [Urine:975] Physical Exam: Physical Exam Temperature: 36.2 General Appearance: Up in his room. PICC left arm. Head: Normocephalic Eyes: Conjunctiva/corneas clear Ears: Hearing grossly intact Nose: No drainage or sinus tenderness Throat: Lips, mucosa, and tongue normal Neck: Symmetric Back: Lumbar incision obscured by wound vac. Hemovac drains. Lungs: Clear to auscultation bilaterally, RR 15 Cardiovascular: Regular S1 and S2, no murmur, HR 70 Abdomen: Soft, non-tender, no organomegaly Extremities: No cyanosis or edema Skin: No rashes, lesions or bruising Lymph nodes: No adenopathy Neurologic: Peripheral neuropathy Psychosocial: Anxious - uncomfortable. Lab/Radiology/Diagnostic Review: RECENT LABS Recent Labs Lab Units 11/05/21 0611/04/2179911/02/21 0656 WBC K/cumm 5.9 11.6* 6.1 HEMOGLOBIN g/dL 8.0* 8.9* 10.3* HEMATOCRIT % 24.6* 26.9* 31.4* PLATELETS K/cumm 419* 486* 418* Recent Labs Lab Units 11/05/2161511/04/2179911/02/21201611/02/21 0656 SODIUM mmol/L 133* 129* -- 131* POTASSIUM PLASMA mmol/L 4.9 4.5 -- 4.4 CHLORIDE mmol/L 99 96* -- 96* CO2 mmol/L 25 26 -- 29 BUN SERUM mg/dL 14 13 -- 9 CREATININE mg/dL 0.92 0.76* -- 0.90 PGW-PGI-NPWXRIL mL/min/1.73 m2 89 97 -- 92 GLUCOSE mg/dL 96 106 -- 99 POC GLUCOSE MONITOR -- -- < > -- CALCIUM mg/dL 8.7 8.5 -- 8.9 ALBUMIN g/dL 3.0* -- -- -- PHOSPHORUS PLASMA mg/dL 2.7 -- -- -- < > = values in this interval not displayed. No lab exists for component: LABALBU IMPRESSIONS: Surgical site infection of the lumbar spine anticipating I and D this afternoon. Patient developed increasing back pain, fever, and incisional drainage over the weekend. Status post L5-S1 interbody fusion October 11, 2021. History of L5-S1 decompression and diskectomy June 03, 2021. 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 History of bronchiectasis and Pseudomonas colonization. SIADH. Peripheral neuropathy. 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 Gastroesophageal reflux disease. Reports 30 pound weight loss in the last 9 months. PLAN: PICC placed for outpatient IV therapy Discussed with Case management and HHC. Orders faxed. Ceftriaxone 2 gm IFPB q 24 hrs. Maintain on once daily Vancomycin PO. Questions addressed once more. Time spent: 39 minutes. Kristine Young MD 9:11 AM 11/06/2021 * Juliocesar Calix MD - 11/05/2021 1:27 PM CDT General Medicine Daily Progress Admit date: 10/28/2021 10:28 PM Reason for visit/follow up Chief Complaint: Back pain Hospital course 71-year-old male with a history of SIADH, history of C diff colitis with 3 recurrences, history of lumbar limb radiculopathy status post posterior lateral arthrodesis and anterior interbody fusion L5-S1, posterior nonsegmental instrumentation, L5 wide bilateral lumbar laminectomy, facetectomy, foraminotomy for decompression with re-exploration and decompression right L5-S1, placement of an 11 mm 12 degree interbody device, use of morselized autograft with bone densitometer reader, bone marrow aspirate with left iliac crest through a separate incision with Dr. Granger on 10/11/2021 presented with fever back pain. He reports he had his stitches removed after surgery on 10/21/2021. He had some diarrhea which improved after taking vancomycin oral tablets that he had left over from when he had Clostridium difficile infection in the past. He then started having back pain and chills. He reports his pain feels moreat the surgical site. He presented to [facility] for further evaluation.vAt [facility], his exam reportedly was notable for pratima pus draining from the surgical site. There was also noted to his sense of the wound. He was initially hypotensive, had a sodium 128 (with a history of SIADH), white blood cell count 14.8. He was tachycardic and recently had a fever. Antibiotics were not started. He had a chest x-ray which was clear. Sepsis lactate was within normal limits. Patient was transferred here for further treatment. ?? Blood cx were positive for Serratia marcescens. He underwent I+D on 10/29. He had a repeat debridement on 11/03. He was seen by ID and plan for IV antibiotic with PO vanco prophylactis. New Symptoms Pt is feeling well. Gutierrez is controlled. One of the hemovacs was removed today. Data Vitals: 24hr Min/Max: Temp Min: 36.3 ??C (97.4 ??F) Max: 36.6 ??C (97.8 ??F) Pulse Min: 63 Max: 72 BP Min: 90/60 Max: 103/62 Resp Min: 14 Max: 20 SpO2 Min: 95 % Max: 100 % Most Recent : Vitals: 11/05/21 1210 BP: 92/56 Pulse: 68 Resp: 14 Temp: 36.6 ??C (97.8 ??F) SpO2: 97% I/O last 2 completed shifts: In: 120 [P.O.:120] Out: 70 [Drains:70] I/O this shift: In: 1080 [P.O.:1080] Out: - Lab/Radiology/Diagnostic Review: Recent Labs Lab Units 11/05/21 0616 11/04/21 0800 11/03/21 0542 11/02/21201611/02/21 0656 SODIUM mmol/L 133* 129* -- -- 131* POTASSIUM PLASMA mmol/L 4.9 4.5 -- -- 4.4 CHLORIDE mmol/L 99 96* -- -- 96* CO2 mmol/L 25 26 -- -- 29 BUN SERUM mg/dL 14 13 -- -- 9 CREATININE mg/dL 0.92 0.76* -- -- 0.90 GLUCOSE mg/dL 96 106 -- -- 99 POC GLUCOSE MONITOR mg/dL -- -- 86 < > -- CALCIUM mg/dL 8.7 8.5 -- -- 8.9 < > = values in this interval not displayed. Recent Labs Lab Units 11/05/21 0616 11/04/21 0800 11/02/21 0656 WBC K/cumm 5.9 11.6* 6.1 HEMOGLOBIN g/dL 8.0* 8.9* 10.3* HEMATOCRIT % 24.6* 26.9* 31.4* PLATELETS K/cumm 419* 486* 418* Physical Exam: General appearance: alert, cooperative, no distress, oriented to person, place, and time Lungs: breath sounds normal and symmetric; no rales or wheezes Heart: regular rhythm, normal S1 and S2, without murmurs, gallops or rubs Abdomen: soft without mass, non-tender, with normal bowel sounds Extremities: no clubbing, cyanosis or edema Head: Normocephalic, without trauma Eyes: sclera and conjunctiva clear, EOMI and PERRLA, lids normal Nose: nares open; no septal deviation is noted Joints: ranges of motion normal without inflammation, effusion or deformity Skin: no rashes or other abnormalities are noted Neurologic: mental status normal; alert and oriented X 3; cranial nerves II - XII are grossly intact Scheduled Medications: acetaminophen, 1,000 mg, oral, Q8H JESSENIA meropenem, 1,000 mg, intravenous, Q8H pantoprazole DR, 40 mg, oral, Daily lubricant, 1 drop, each eye, TID pregabalin, 150 mg, oral, Daily pregabalin, 300 mg, oral, Nightly rOPINIRole, 2 mg, oral, Nightly sodium chloride 0.9%, 0.5-20 mL, intra-catheter, Q8H JESSENIA vancomycin, 125 mg, oral, Daily PRN Medications: ??? aluminum-magnesium hydroxide-simethicone ??? bisacodyL ??? bisacodyl EC ??? budesonide-formoteroL ??? dextrose ??? morphine ??? ondansetron ODT OR ondansetron ??? oxyCODONE ??? oxyCODONE ??? polyethylene glycol ??? ramelteon ??? sodium chloride 0.9% ??? tiZANidine Assessment and plan Principal Problem: Severe sepsis (HCC) Active Problems: Lumbar stenosis without neurogenic claudication Infection of lumbar spine (CMS/HCC) (HCC) Infection following a procedure, deep incisional surgical site, initial encounter History of Clostridium difficile colitis GERD without esophagitis Hyponatremia SIADH (syndrome of inappropriate ADH production) (CMS/HCC) (HCC) Moderate malnutrition (CMS/HCC) Serratia marcescens bacteremia Post op lumbar spine abscess Lumbar radiculopathy status post posterior lumbar decompression and spinal fusion 10/11/2021 -s/p I+D 10/29, on cefepime >Merrem -s/p repeat debridement 11/03: Purulence deep and in the superficial areas. Significant amount of tissue which was removed -cont pain meds -PT/OT -IV antibiotic per ID History of recurrent C diff infection -PO vanco Hyponatremia due to SIADH ?? GERD without known esophagitis PPI . ?? Code status: Full Code ?? Goals for discharge / anticipated LOS: Anticipate admission > 2 midnights for management of suspected severe sepsis, SSI ?? Medical complexity / risk: Moderate Dispo: Pt is accepted to [facility] Home [facility]fusion, anticipated DC on 11/06 and Start [facility] infusion athome on 11/07/2021 * Kristine Young MD - 11/05/2021 11:32 AM CDT Infectious Disease Progress Note PATIENT NAME: Douglas Horn : 1950 ADMISSION DATE: 10/28/2021 HOSPITAL COURSE: T-max 36.7 T-cur 36.4 WBC 5,900 Hgb 8.9 Drains removed this am. Wound vac remains. Eager to get home. [facility] can provide nursing now on . I ordered PICC and messaged with Brett. Spoke with case management. Serratia susceptibilities same as original. 11/03/2021 Up to a chair this am and feeling much better. Says he was better by evening yesterday. Cultures reviewed with Micro. Very light GNR. OR note reviewed. Purulence extends to posterior spine and hardware. No loosening. Hemovac's with little output. INTERIM HISTORY: Prior use of a PICC line for treating LRTI Multiple courses of inhaled Tobramycin 2021 for Bronchiectasis. History of L5-S1 decompression and diskectomy June 03, 2021. Status post L5-S1 interbody fusion October 11, 2021. I&D lumbar wound 10/29/2021 Blood cultures 10/28 +Serratia marcescens Blood cultures 10/29 +Serratia Incisional wound +Serratia. Vancomycin x2 Cefepime 10/29-11/01 Meropenem 11/02 > Review of Systems Constitutional: Positive for weight loss. Negative for fever. HENT: Negative for congestion. Respiratory: Negative for cough and shortness of breath. Cardiovascular: Negative for chest pain. Gastrointestinal: Negative for diarrhea. Genitourinary: Negative for dysuria. Musculoskeletal: Positive for back pain. Neurological: Positive for sensory change. Negative for focal weakness. Medications: acetaminophen, 1,000 mg, oral, Q8H JESSENIA meropenem, 1,000 mg, intravenous, Q8H pantoprazole DR, 40 mg, oral, Daily lubricant, 1 drop, each eye, TID pregabalin, 150 mg, oral, Daily pregabalin, 300 mg, oral, Nightly rOPINIRole, 2 mg, oral, Nightly sodium chloride 0.9%, 0.5-20 mL, intra-catheter, Q8H JESSENIA vancomycin, 125 mg, oral, Daily Vitals: 24hr Min/Max: Temp Min: 36.3 ??C (97.4 ??F) Max: 36.6 ??C (97.8 ??F) Pulse Min: 63 Max: 72 BP Min: 90/60 Max: 103/62 Resp Min: 14 Max: 20 SpO2 Min: 95 % Max: 100 % INTAKE/OUTPUT: I/O last 3 completed shifts: In: 1135 [P.O.:120; I.V.:1015] Out: 1020 [Urine:950; Drains:70] Physical Exam: Physical Exam Temperature: 36.4 General Appearance: Lying on his side in bed. Head: Normocephalic Eyes: Conjunctiva/corneas clear Ears: Hearing grossly intact Nose: No drainage or sinus tenderness Throat: Lips, mucosa, and tongue normal Neck: Symmetric Back: Lumbar incision obscured by wound vac. Hemovac drains. Lungs: Clear to auscultation bilaterally, RR 16 Cardiovascular: Regular S1 and S2, no murmur, HR 68 Abdomen: Soft, non-tender, no organomegaly Extremities: No cyanosis or edema Skin: No rashes, lesions or bruising Lymph nodes: No adenopathy Neurologic: Peripheral neuropathy Psychosocial: Anxious - uncomfortable. Lab/Radiology/Diagnostic Review: RECENT LABS Recent Labs Lab Units 11/05/2161511/04/2179911/02/21 0656 WBC K/cumm 5.9 11.6* 6.1 HEMOGLOBIN g/dL 8.0* 8.9* 10.3* HEMATOCRIT % 24.6* 26.9* 31.4* PLATELETS K/cumm 419* 486* 418* Recent Labs Lab Units 11/05/2161511/04/2179911/02/21201611/02/21 0656 SODIUM mmol/L 133* 129* -- 131* POTASSIUM PLASMA mmol/L 4.9 4.5 -- 4.4 CHLORIDE mmol/L 99 96* -- 96* CO2 mmol/L 25 26 -- 29 BUN SERUM mg/dL 14 13 -- 9 CREATININE mg/dL 0.92 0.76* -- 0.90 PRT-BAD-UDDIMWH mL/min/1.73 m2 89 97 -- 92 GLUCOSE mg/dL 96 106 -- 99 POC GLUCOSE MONITOR -- -- < > -- CALCIUM mg/dL 8.7 8.5 -- 8.9 ALBUMIN g/dL 3.0* -- -- -- PHOSPHORUS PLASMA mg/dL 2.7 -- -- -- < > = values in this interval not displayed. No lab exists for component: LABALBU IMPRESSIONS: 1. Surgical site infection of the lumbar spine anticipating I and D this afternoon. Patient developed increasing back pain, fever, and incisional drainage over the weekend. 2. Status post L5-S1 interbody fusion October 11, 2021. 3. History of L5-S1 decompression and diskectomy June 03, 2021. 4. 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 5. History of bronchiectasis and Pseudomonas colonization. 6. SIADH. 7. Peripheral neuropathy. 8. 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 9. Gastroesophageal reflux disease. 10. Reports 30 pound weight loss in the last 9 months. PLAN: 1. PICC ordered. 2. Discussed with Case management. 3. Maintain on once daily Vancomycin PO. 4. Still with multiple questions each day. Time spent: 33 minutes. Kristine Young MD 12:40 PM 11/05/2021 * Olimpia Maldonado PA - 11/05/2021 9:59 AM CDT Neurosurgical Progress Note Patient Name: Douglas Horn Date of : 1950 Primary Physician: Anil Gupta MD Admission Date: 10/28/2021 Length of Stay: 8 Subjective Chief complaint: Back wound infection status post lumbar fusion L5-S1 Interval History: s/p INCISION AND DRAINAGE - BACK with Dr. Garcia, Milad Zendejas MD # 2 Days Post-Op Pt seen and examined. No acute events overnight and no new complaints this morning. Patient resting comfortably in bed. Reports that pain is controlled. Mild incisional pain. Denies radicular symptoms. Tolerating diet, no nausea or vomiting Voiding without difficulty. Ambulating well with therapy. ROS Constitutional: Negative for chills and fever. Respiratory: Negative for shortness of breath. Cardiovascular: Negative for chest pain. Objective PMH: Past Medical History: Diagnosis Date ??? Arthritis ??? Asthma ??? GERD (gastroesophageal reflux disease) ??? Lead poisoning ??? Lumbar radiculopathy ??? Peripheral neuropathy ??? Pseudomonas respiratory infection comes and goes - on senior living antibiotics to prevent further mucous build up ??? Toxic effect of mercury and its compounds, accidental (unintentional), initial encounter Inpatient Medications: Scheduled Meds:acetaminophen, 1,000 mg, oral, Q8H JESSENIA meropenem, 1,000 mg, intravenous, Q8H pantoprazole DR, 40 mg, oral, Daily lubricant, 1 drop, each eye, TID pregabalin, 150 mg, oral, Daily pregabalin, 300 mg, oral, Nightly rOPINIRole, 2 mg, oral, Nightly sodium chloride 0.9%, 0.5-20 mL, intra-catheter, Q8H JESSENIA vancomycin, 125 mg, oral, Daily Continuous Infusions: PRN Meds:.??? aluminum-magnesium hydroxide-simethicone ??? bisacodyL ??? bisacodyl EC ??? budesonide-formoteroL ??? dextrose ??? morphine ??? ondansetron ODT OR ondansetron ??? oxyCODONE ??? oxyCODONE ??? polyethylene glycol ??? ramelteon ??? sodium chloride 0.9% ??? tiZANidine Vitals: Vitals: 11/05/21 0825 BP: 90/60 Pulse: 72 Resp: 15 Temp: 36.4 ??C (97.5 ??F) SpO2: 95% Vitals: 11/04/21 2010 11/04/21 2325 11/05/21 0415 11/05/21 0825 BP: 103/62 100/58 95/57 90/60 BP Location: Right arm Right arm Right arm Patient Position: HOB 30 degrees Sitting Lying Pulse: 67 66 63 72 Resp: 20 18 16 15 Temp: 36.3 ??C (97.4 ??F) 36.4 ??C (97.6 ??F) 36.4 ??C (97.5 ??F) 36.4 ??C (97.5 ??F) TempSrc: Axillary Axillary Oral SpO2: 100% 96% 99% 95% Weight: Height: Intake &Output I/O last 3 completed shifts: In: 1135 [P.O.:120; I.V.:1015] Out: 1020 [Urine:950; Drains:70] No intake/output data recorded. Intake/Output Summary (Last 24 hours) at 11/05/2021 0959 Last data filed at 11/04/2021 1150 Gross per 24 hour Intake -- Output 70 ml Net -70 ml Output by Drain (mL) 11/03/21699 - 11/03/21185811/03/21 190 - 11/04/21 0659 11/04/21699 - 11/04/21185811/04/21 1900 - 11/05/21 0659 11/05/21 07 - 11/05/21 0959 Closed/Suction/Open Drain Inferior;Midline Back Accordion 30 70 Closed/Suction/Open Drain Inferior;Left Back 0 0 Physical Exam General: appears stated age and cooperative Neurovascular: NVI, Sensation intact bilaterally, Distal pulses palpable bilaterally. Toes pink with brisk cap refill. Moves BLE equally. Push/pulls strong and equal. Wound: RONEY dressing clean, dry and intact. No erythema, ecchymosis, or drainage noted. Hemovacs removed at bedside. CV: RRR Lungs: CTA bilaterally, no respiratory distress noted Diagnostics LAB, RADIOLOGY, DIAGNOSTIC REVIEW: Recent Labs Lab Units 11/05/2161511/04/2179911/02/21 0656 WBC K/cumm 5.9 11.6* 6.1 HEMOGLOBIN g/dL 8.0* 8.9* 10.3* HEMATOCRIT % 24.6* 26.9* 31.4* PLATELETS K/cumm 419* 486* 418* Recent Labs Lab Units 11/05/21 0616 11/04/21 0811/03/21 0542 11/02/21201611/02/21 0656 SODIUM mmol/L 133* 129* -- -- 131* POTASSIUM PLASMA mmol/L 4.9 4.5 -- -- 4.4 CHLORIDE mmol/L 99 96* -- -- 96* CO2 mmol/L 25 26 -- -- 29 ANIONGAP mmol/L 9 7 -- -- 6 GLUCOSE mg/dL 96 106 -- -- 99 POC GLUCOSE MONITOR mg/dL -- -- 86 < > -- BUN SERUM mg/dL 14 13 -- -- 9 CREATININE mg/dL 0.92 0.76* -- -- 0.90 CALCIUM mg/dL 8.7 8.5 -- -- 8.9 ALBUMIN g/dL 3.0* -- -- -- -- < > = values in this interval not displayed. hgbA1C Lab Results Component Value Date HGBA1C 5.4 10/02/2021 COVID-19 Lab Results Component Value Date [id number] Not Detected 05/30/2021 Lab Results Component Value Date SODIUM 133 (L) 11/05/2021 POTASSIUM 4.9 11/05/2021 CHLORIDE 99 11/05/2021 CO2 25 11/05/2021 ANIONGAP 9 11/05/2021 BUNSER 14 11/05/2021 CREATININE 0.92 11/05/2021 GFRNAA 89 11/05/2021 GLUCOSE 96 11/05/2021 CALCIUM 8.7 11/05/2021 BILITOT 0.6 10/29/2021 PROT 5.6 (L) 10/29/2021 ALBUMIN 3.0 (L) 11/05/2021 ALKPHOS 83 10/29/2021 ALT 34 10/29/2021 AST 32 10/29/2021 MAGNESIUM 1.8 10/29/2021 CBC Lab Results Component Value Date WBC 5.9 11/05/2021 HGB 8.0 (L) 11/05/2021 HCT 24.6 (L) 11/05/2021 LABPLAT 419 (H) 11/05/2021 MPV 8.2 (L) 11/05/2021 RBC 2.77 (L) 11/05/2021 MCV 88.8 11/05/2021 MCH 28.9 11/05/2021 MCHC 32.5 11/05/2021 RDWCV 13.0 11/05/2021 RDWSD 42.6 11/05/2021 NRBCABS 0.00 11/05/2021 ECG: Results Procedure Component Value Units Date/Time ECG 12 lead [[id number]] Collected: 10/29/2143 Order Status: Completed Updated: 10/29/21731 Narrative: Vent Rate: 91 bpm RR Interval: 659 msec [place] Interval: 188 msec QRS Duration: 137 msec QT Interval: 343 msec QTC Interval: 391 msec P-R-T Avinger: 47 - -70 - 42 degrees SINUS RHYTHM LEFT AXIS DEVIATION RIGHT BUNDLE BRANCH BLOCK ABNORMAL ECG Electronically Signed By: Jessee Florence MD Urine studies No results found for: APPEARUR, COLORU, CLARITYU, SPECGRAVU, PHURINE, GLUCOSEU, KETONESU, NITRITEU,LEUKESTUR, PROTURQL, BLOODUR, BILIRUBINU, UROBILINOGEN Urine microbiology No results found for: WBCU, RBCU, EPIUR, EPISQUAMU, HYALCASTU, MUCUSU, BACTERIAU Coagulation and platelet No results found for: PT, INR, APTT Problem List Principal Problem: Severe sepsis (HCC) Active Problems: Lumbar stenosis without neurogenic claudication Infection of lumbar spine ([facility]) (HCC) Infection following a procedure, deep incisional surgical site, initial encounter History of Clostridium difficile colitis GERD without esophagitis Hyponatremia SIADH (syndrome of inappropriate ADH production) (CMS/[facility]) (HCC) Moderate malnutrition (CMS/[facility]) Assessment/Plan 1. Back wound infection status post lumbar fusion L5-S1 s/p INCISION AND DRAINAGE - BACK: Continue current post op course Pain control Spinal precautions Hemovacs removed today RONEY dressing to lumbar incision Mobilize patient today, PT/OT Encouraged IS Bowel regimen Continue antibiotics per ID D/C planning once cleared by medical/ID services Care plan discussed with the patient and Dr. Garcia. NANCIE Barth-C [facility] [phone] * Edwige Nassar, PT - 11/04/2021 11:14 AM CDT Physical Therapy Discharge Pt discharged due to adequate functional status, no concerns for mobility from PT or pt and abilityto state and maintain spinal precautions 100% of the time. 11/04/21 1114 PT Last Visit Session Type Discharge PT Received On 11/04/21 Safe Environment Arm Band Checked (Deferred bed alarm - RN aware) Subjective Agreeable to Therapy Subjective Comment Pt was very pleasant throughout and motivated to continue to get stronger and more able. Pt states he feels almost 100% better after the recent surgery Family/Caregiver Present No Precautions Precautions Fall risk;Bed/Chair Alarm Precaution Comments Pt correctly stated 3/3 precautions and was able to maintain these 100% of the time. Activity Tolerance Activity Tolerance Comments VSS throughout Pain Assessment Pain Assessment 0-10 Pain Score 0 - No pain Clinical Progression Not changed Cognition Cognition Comments Pt doing very well this morning Arousal/Alertness Alert;Appropriate responses to stimuli Orientation Oriented X4 (person, place, time, situation) Compliance/Behavior Easy to engage Static Sitting Balance Static Sitting-Balance Support Feet supported Static Sitting-Sitting Surface Chair Static Sitting-Level of Assistance Independent Static Standing Balance Static Standing-Balance Support No upper extremity supported Static Standing-Standing Surface Floor Static Standing-Level of Assistance Independent Static Standing-Comment/# of Minutes > 3 minutes with no increased sway or LOB Dynamic Standing Balance Dynamic Standing-Balance Support No upper extremity supported Dynamic Standing-Balance (Partial squat) Dynamic Standing-Standing Surface Floor Dynamic Standing-Level of Assistance Independent Dynamic Standing-Comments No loss of balance or increased sway. No increased effort noted Standing Reps/Sets 1x5 Standing-Exercise Comments Pt completed x5 standing squats without increased effort, loss of balance and good functional strength Bed Mobility 1 Bed Mobility Comments 1 Pt up in chair upon arrival Transfer 1 Transfer From 1 Sit Transfer Type 1 To and from Transfer to 1 Stand Transfer Device 1 No device Transfer Level of Assistance 1 Independent Trials/Comments 1 Pt with excellent force production, no noticable increase in effort, functional balance without increased sway Ambulation 1 Distance (ft) 1 1000' Surface 1 Level tile Device 1 No device Assistance 1 Independent Quality of Gait 1 Symmetrical step lengths, no noticable deviations in gait. Ambulation Comments 1 Pt walks with great gait speed, no deviations of path, is able to perform head turns and hold a conversation throughout, pt not limited by fatigue, and no losses of balance. Assessment Prognosis Excellent Plan Plan Discharge;If this is the last note, consider this the discharge summary Recommendation/Plan PT Recommendation/Plan Home with family PT Frequency One time visit (Discharge from this service) Treatment/Interventions Balance Training;Functional activity;Gait training;Functional transfer training;Strengthening;Therapeutic activity Education: Patient has been educated on the role of PT, safety , precautions, mobility training, stairs, and home exercise program. Education completed via explanation, teach back, and demonstration.Patient verbalized understanding and demonstrated understanding Multi-Disciplinary Problems (from Physical Therapy) Active Problems Problem: PT Misc Start Date: 10/29/21 Goal Start Date Expected End Date End Date Pt perform car transfer IND maintaining spinal precautions 10/29/21 11/12/21 -- Goal Start Date Expected End Date End Date Pt ascend/descend steps to simulate home entry no UE support IND 10/29/21 11/12/21 -- * Juliocesar Calix MD - 11/04/2021 10:20 AM CDT General Medicine Daily Progress Admit date: 10/28/2021 10:28 PM Reason for visit/follow up Chief Complaint: Back pain New Symptoms Back pain is better today No BM for 2 days. No fever, no chills, no cough, no chest pain, no dyspnea, no nausea/vomiting, no abdominal pain. Data Vitals: 24hr Min/Max: Temp Min: 36.2 ??C (97.2 ??F) Max: 36.6 ??C (97.9 ??F) Pulse Min: 61 Max: 94 BP Min: 90/64 Max: 104/62 Resp Min: 10 Max: 16 SpO2 Min: 96 % Max: 100 % Most Recent : Vitals: 11/04/21 0853 BP: 104/62 Pulse: 67 Resp: 16 Temp: 36.2 ??C (97.2 ??F) SpO2: 97% I/O last 2 completed shifts: In: 3369 [P.O.:1354; I.V.:2014] Out: 1999 [Urine:1950; Drains:30; Blood:20] No intake/output data recorded. Lab/Radiology/Diagnostic Review: Recent Labs Lab Units 11/04/21 0811/03/21 0542 11/02/21201611/02/21 0656 10/31/21 0500 SODIUM mmol/L 129* -- -- 131* 131* POTASSIUM PLASMA mmol/L 4.5 -- -- 4.4 4.2 CHLORIDE mmol/L 96* -- -- 96* 98 CO2 mmol/L 26 -- -- 29 26 BUN SERUM mg/dL 13 -- -- 9 11 CREATININE mg/dL 0.76* -- -- 0.90 0.89 GLUCOSE mg/dL 106 -- -- 99 105 POC GLUCOSE MONITOR mg/dL -- 86 93 -- -- CALCIUM mg/dL 8.5 -- -- 8.9 8.3* Recent Labs Lab Units 11/04/21 0811/02/21 0656 10/31/21 0500 WBC K/cumm 11.6* 6.1 5.0 HEMOGLOBIN g/dL 8.9* 10.3* 8.9* HEMATOCRIT % 26.9* 31.4* 28.1* PLATELETS K/cumm 486* 418* 323 Physical Exam: General appearance: alert, cooperative, no distress, oriented to person, place, and time Lungs: breath sounds normal and symmetric; no rales or wheezes Heart: regular rhythm, normal S1 and S2, without murmurs, gallops or rubs Abdomen: soft without mass, non-tender, with normal bowel sounds Extremities: no clubbing, cyanosis or edema Head: Normocephalic, without trauma Eyes: sclera and conjunctiva clear, EOMI and PERRLA, lids normal Nose: nares open; no septal deviation is noted Joints: ranges of motion normal without inflammation, effusion or deformity Skin: no rashes or other abnormalities are noted Neurologic: mental status normal; alert and oriented X 3; cranial nerves II - XII are grossly intact Scheduled Medications: acetaminophen, 1,000 mg, oral, Q8H JESSENIA meropenem, 1,000 mg, intravenous, Q8H pantoprazole DR, 40 mg, oral, Daily polyethylene glycol, 17 g, oral, Daily lubricant, 1 drop, each eye, TID pregabalin, 150 mg, oral, Daily pregabalin, 300 mg, oral, Nightly rOPINIRole, 2 mg, oral, Nightly sodium chloride 0.9%, 0.5-20 mL, intra-catheter, Q8H JESSENIA vancomycin, 125 mg, oral, Daily PRN Medications: ??? aluminum-magnesium hydroxide-simethicone ??? bisacodyL ??? bisacodyl EC ??? budesonide-formoteroL ??? dextrose ??? morphine ??? ondansetron ODT OR ondansetron ??? oxyCODONE ??? oxyCODONE ??? oxyCODONE ??? polyethylene glycol ??? ramelteon ??? sodium chloride 0.9% ??? tiZANidine Assessment and plan Principal Problem: Severe sepsis (HCC) Active Problems: Lumbar stenosis without neurogenic claudication Infection of lumbar spine (CMS/HCC) (HCC) Infection following a procedure, deep incisional surgical site, initial encounter History of Clostridium difficile colitis GERD without esophagitis Hyponatremia SIADH (syndrome of inappropriate ADH production) (CMS/HCC) (HCC) Moderate malnutrition (CMS/HCC) Serratia marcescens bacteremia Post op lumbar spine abscess Lumbar radiculopathy status post posterior lumbar decompression and spinal fusion 10/11/2021 -s/p I+D 10/29, on cefepime >Merrem -s/p repeat debridement 11/03: Purulence deep and in the superficial areas. Significant amount of tissue which was removed -cont pain meds -PT/OT -DC IVF History of recurrent C diff infection -PO vanco Hyponatremia due to SIADH ?? GERD without known esophagitis PPI . ?? Code status: Full Code ?? Goals for discharge / anticipated LOS: Anticipate admission > 2 midnights for management of suspected severe sepsis, SSI ?? Medical complexity / risk: Moderate * Kristine Young MD - 11/04/2021 9:31 AM CDT Infectious Disease Progress Note PATIENT NAME: Douglas Horn : 1950 ADMISSION DATE: 10/28/2021 HOSPITAL COURSE: T-max 36.7 T-cur 36.4 WBC 11,600 Up to a chair this am and feeling much better. Says he was better by evening yesterday. Cultures reviewed with Micro. Very light GNR. OR note reviewed. Purulence extends to posterior spine and hardware. No loosening. Hemovac's with little output. 11/03/2021 Discussed last evening with Dr. Garcia. Quite uncomfortable returning from the OR. concerned. Two Hemovac drains now. Wound vac over closed incision. Awake and cooperating. Nursing just medicated. Spoke with his outside the room. Many questions. INTERIM HISTORY: Prior use of a PICC line for treating LRTI Multiple courses of inhaled Tobramycin 2021 for Bronchiectasis. History of L5-S1 decompression and diskectomy June 03, 2021. Status post L5-S1 interbody fusion October 11, 2021. I&D lumbar wound 10/29/2021 Blood cultures 10/28 +Serratia marcescens Blood cultures 10/29 +Serratia Incisional wound +Serratia. Vancomycin x2 Cefepime 10/29-11/01 Meropenem 11/02 > Review of Systems Constitutional: Positive for weight loss. Negative for fever. HENT: Negative for congestion. Respiratory: Negative for cough and shortness of breath. Cardiovascular: Negative for chest pain. Gastrointestinal: Negative for diarrhea. Genitourinary: Negative for dysuria. Musculoskeletal: Positive for back pain. Neurological: Positive for sensory change. Negative for focal weakness. Medications: acetaminophen, 1,000 mg, oral, Q8H JESSENIA meropenem, 1,000 mg, intravenous, Q8H pantoprazole DR, 40 mg, oral, Daily lubricant, 1 drop, each eye, TID pregabalin, 150 mg, oral, Daily pregabalin, 300 mg, oral, Nightly rOPINIRole, 2 mg, oral, Nightly sodium chloride 0.9%, 0.5-20 mL, intra-catheter, Q8H JESSENIA vancomycin, 125 mg, oral, Daily Vitals: 24hr Min/Max: Temp Min: 36.2 ??C (97.2 ??F) Max: 36.7 ??C (98.1 ??F) Pulse Min: 64 Max: 80 BP Min: 93/53 Max: 104/62 Resp Min: 16 Max: 16 SpO2 Min: 96 % Max: 100 % INTAKE/OUTPUT: I/O last 3 completed shifts: In: 3369 [P.O.:1354; I.V.:2014] Out: 2300 [Urine:2250; Drains:30; Blood:20] Physical Exam: Physical Exam Temperature: 36.7 General Appearance: Awake in bed. Postop pain Head: Normocephalic Eyes: Conjunctiva/corneas clear Ears: Hearing grossly intact Nose: No drainage or sinus tenderness Throat: Lips, mucosa, and tongue normal Neck: Symmetric Back: Lumbar incision obscured by wound vac. Hemovac drains. Lungs: Clear to auscultation bilaterally, RR 18 Cardiovascular: Regular S1 and S2, no murmur, HR 80 Abdomen: Soft, non-tender, no organomegaly Extremities: No cyanosis or edema Skin: No rashes, lesions or bruising Lymph nodes: No adenopathy Neurologic: Peripheral neuropathy Psychosocial: Anxious - uncomfortable. Lab/Radiology/Diagnostic Review: RECENT LABS Recent Labs Lab Units 11/04/21 0811/02/21 0656 10/31/21 0500 WBC K/cumm 11.6* 6.1 5.0 HEMOGLOBIN g/dL 8.9* 10.3* 8.9* HEMATOCRIT % 26.9* 31.4* 28.1* PLATELETS K/cumm 486* 418* 323 Recent Labs Lab Units 11/04/21 0800 11/02/21201611/02/21 0656 10/31/21 0500 10/30/21 0910 10/29/21 0032 SODIUM mmol/L 129* -- 131* 131* < > 130* POTASSIUM PLASMA mmol/L 4.5 -- 4.4 4.2 < > 4.2 CHLORIDE mmol/L 96* -- 96* 98 < > 98 CO2 mmol/L 26 -- 29 26 < > 23 BUN SERUM mg/dL 13 -- 9 11 < > 10 CREATININE mg/dL 0.76* -- 0.90 0.89 < > 0.89 [id number] mL/min/1.73 m2 97 -- 92 92 < > 92 GLUCOSE mg/dL 106 -- 99 105 < > 103 POC GLUCOSE MONITOR -- < > -- -- -- -- CALCIUM mg/dL 8.5 -- 8.9 8.3* < > 8.1* ALBUMIN g/dL -- -- -- -- -- 3.0* PHOSPHORUS PLASMA mg/dL -- -- -- -- -- 2.8 < > = values in this interval not displayed. Recent Labs Lab Units 10/29/21 0032 ALK PHOS Units/L 83 BILIRUBIN TOTAL mg/dL 0.6 TOTAL PROTEIN g/dL 5.6* ALT Units/L 34 AST Units/L 32 IMPRESSIONS: 1. Surgical site infection of the lumbar spine anticipating I and D this afternoon. Patient developed increasing back pain, fever, and incisional drainage over the weekend. 2. Status post L5-S1 interbody fusion October 11, 2021. 3. History of L5-S1 decompression and diskectomy June 03, 2021. 4. 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 5. History of bronchiectasis and Pseudomonas colonization. 6. SIADH. 7. Peripheral neuropathy. 8. 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 9. Gastroesophageal reflux disease. 10. Reports 30 pound weight loss in the last 9 months. PLAN: 1. Will repeat susceptibilities. 2. Continue Meropenem 3. Maintain on once daily Vancomycin PO. 4. Questions addressed. Time spent: 31 minutes. Kristine Young MD 5:03 PM 11/04/2021 * AydinSelene, RD - 11/03/2021 1:50 PM CDT Initial Nutrition Assessment Reason for Assessment: Initial Nutrition Assessment and Consult/Referral Encounter Date: 11/03/21 2:00 PM Nutrition Evaluation: Patient is a 71 y.o. male. Admit Dx: Infection of lumbar spine ([facility]) ([facility]) [M46.26]. Admitted on 10/28/2021, current LOS is 6 days. Patient's intake is adequate. ASPEN Malnutrition Assessment: Acute Illness/Injury Mild/Moderate Weight Loss: Clinical criteria not met Body Fat: Mild/Moderate Muscle Mass: Mild/Moderate Patient Meets Criteria for Moderate Malnutrition: Yes Nutrition Focused Physical Exam Notes: Subcutaneous Fat Loss Orbital Region - Surrounding the Eye: Somewhat hollow look Upper Arm Region - Triceps/Biceps: Some depth pinch but not ample Muscle Loss [place] Region - Temporalis Muscle: Slight depression Clavicle Bone Region - Pectoralis Major, Deltoid, Trapezius Muscles: Visible in male, some protrusion in female Clavicle and Acromion Bone Region - Deltoid Muscle: Acromion process may slightly protrude Anterior Thigh and Patellar Region - Quadricep Muscle: Slight depression along thigh Posterior Calf Region - Gastrocnemius Muscle: Not well developed Objective Past Medical History: Diagnosis Date ??? Arthritis ??? Asthma ??? GERD (gastroesophageal reflux disease) ??? Lead poisoning ??? Lumbar radiculopathy ??? Peripheral neuropathy ??? Pseudomonas respiratory infection comes and goes - on long term acute care registered nurse antibiotics to prevent further mucous build up ??? Toxic effect of mercury and its compounds, accidental (unintentional), initial encounter Past Surgical History: Procedure Laterality Date ??? MICRODISCECTOMY LUMBAR 06/03/2021 S/P Right L5-S1 Microdiscectomy ([place]) Anthropometrics Weight: 80.4 kg (177 lb 4 oz) Admission Weight : 80.4 kg Weight Change: -0.29 kg (-0.66 lbs) IBW/kg (Calculated) : 80.7 kg Height: 182.9 cm (6') Weight in (lb) to have BMI = 25: 183.9 BMI (Calculated): 24 Intake/Output Summary (Last 24 hours) at 11/03/2021 1400 Last data filed at 11/03/2021 1313 Gross per 24 hour Intake 3000 ml Output 775 ml Net 2225 ml Medications and Lab Review: Scheduled Meds: acetaminophen, 1,000 mg, oral, Q8H JESSENIA meropenem, 1,000 mg, intravenous, Q8H pantoprazole DR, 40 mg, oral, Daily lubricant, 1 drop, each eye, TID pregabalin, 150 mg, oral, Daily pregabalin, 300 mg, oral, Nightly rOPINIRole, 2 mg, oral, Nightly sodium chloride 0.9%, 0.5-20 mL, intra-catheter, Q8H JESSENIA vancomycin, 125 mg, oral, Daily Continuous Infusions: sodium chloride 0.9%, 75 mL/hr PRN Meds: ??? bisacodyL ??? bisacodyl EC ??? budesonide-formoteroL ??? dextrose ??? morphine ??? ondansetron ODT OR ondansetron ??? oxyCODONE ??? oxyCODONE ??? polyethylene glycol ??? ramelteon ??? sodium chloride 0.9% ??? tiZANidine Sodium Date Value Ref Range Status 11/02/2021 131 (L) 135 - 145 mmol/L Final Potassium, pl Date Value Ref Range Status 11/02/2021 4.4 3.3 - 4.9 mmol/L Final BUN Date Value Ref Range Status 11/02/2021 9 8 - 25 mg/dL Final Creatinine Date Value Ref Range Status 11/02/2021 0.90 0.80 - 1.30 mg/dL Final Calcium Date Value Ref Range Status 11/02/2021 8.9 8.5 - 10.3 mg/dL Final Lab Results Component Value Date HGBA1C 5.4 10/02/2021 Nursing Assessment: Last BM Date: 11/02/21 Bowel Sounds (All Quadrants): Present Israel Scale Score: 21 Skin Integrity: Surgical incision Type of Wound (LDA): Surgical site Surgical Site 11/03/21 Back-Negative Pressure Wound Therapy Used: Yes Dietary Orders (From admission, onward) Start Ordered 11/03/211999 Oral Nutrition Supplements Select Supplement: Ensure - [place] 2 times daily Question: Select Supplement: Answer: Ensure - [place] 11/03/21 1348 11/03/21 1124 Adult Diet Regular Diet effective now Question: ([facility]) Diet type Answer: Regular 11/03/21 1123 Nutrition Needs Calculations: Calculated Energy Needs Using Equations Weight: 80.4 kg (177 lb 4 oz) Height: 182.9 cm (6') Estimated Protein Needs Type of Weight Used for Estimated Protein : Current Protein Needs Based on g/k.2 Total Protein Estimated Needs (gm): 96.48 Kcal/kg Type of Weight Used for Estimated Kcals: Current Kcal/k Total Kcal/kg Estimated Needs : 2009 Wt Readings from Last 10 Encounters: 10/28/21 80.4 kg (177 lb 4 oz) 10/11/21 80.7 kg (177 lb 14.6 oz) 10/02/21 82.1 kg (181 lb) 07/16/21 86.1 kg (189 lb 13.1 oz) 06/03/21 86.1 kg (189 lb 13.1 oz) 04/18/21 87.3 kg (192 lb 6.4 oz) 03/02/14 95.7 kg (211 lb) Nutritional Needs and Diagnosis: Nutrition Diagnosis 1: Increased nutrient needs (protein) Related to: Recent surgery, Wounds Evidenced by: Physical finding Impression: Consult received for increased protein needs. S/p I&D of back wound on 10/29/21 and 11/03/21. Spoke with pt and during visit. Reports a good appetite this admission and has been consuming 100% of meals. Notes a 30 lb unintentional weight loss over the last 6 months r/t reduced appetite/intake. States his UBW is 200 lbs and thinks CBW is 170 lbs. Weight was 192 lbs on 04/18/21, 189lbs on 07/16/21, 181 lbs on 10/02/21 and now is 177 lbs. Weight loss is concerning but not clinically significant. Did observed some muscle and fat wasting during NFPE and pt meets criteria for moderatemalnutrition based on this. Reviewed protein-rich foods and supplement options. Suggested Ensure Max since intake has improved but pt wanted a higher calorie shake, will trial regular Ensure for now.Attached high protein, high calorie, wound healing and your diet handouts to d/c papers. Plan: Ensure BID. Intervention and Monitoring: Goals: Oral intake to meet 75% estimated nutritional needs by next assessment, Tolerance of medicalfood supplement by next assessment, Promote wound healing Interventions: Encouragement, Meals and snacks, Medical food supplement Monitoring and Evaluation: Labs, Plan of care, PO intake, Supplement tolerance, Wound healing Diet Instructions Eating a high protein diet can aid in wound healing. Try to eat 5-6 smaller meals per day with a protein source at each meal. Protein rich foods include meats, dairy products, beans, nuts/seeds, and eggs. You can also drink protein shakes like Ensure High Protein, Ensure Max, Premier Protein, Orgain, Fairlife, or a homemade protein shake once daily to help increase protein intake. Aim for 100 grams of protein per day during the healing process. Refer to the wound healing and your diet handoutthat was given to you at discharge for a list of protein foods. Foods high in vitamin C can help build a healthy immune system. These include pepper, broccoli, cabbage, brussels sprouts, kale, avocado, kiwi, orange, strawberries, pineapple, and cantaloupe Selene Perrin RD,LD * Juliocesar Calix MD - 11/03/2021 12:36 PM CDT General Medicine Daily Progress Admit date: 10/28/2021 10:28 PM Reason for visit/follow up Chief Complaint: Back pain New Symptoms Pt c/o severe back pain after the repeat debridement. BP soft. No fever, no chills, no cough, no chest pain, no dyspnea, no nausea/vomiting, no abdominal pain. Nodiarrhea or constipation Data Vitals: 24hr Min/Max: Temp Min: 36.4 ??C (97.5 ??F) Max: 36.7 ??C (98 ??F) Pulse Min: 61 Max: 78 BP Min: 90/64 Max: 120/75 Resp Min: 10 Max: 16 SpO2 Min: 94 % Max: 100 % Most Recent : Vitals: 11/03/21 1110 BP: Pulse: 68 Resp: 11 Temp: SpO2: 100% I/O last 2 completed shifts: In: 2972 [P.O.:2972] Out: 585 [Urine:550; Drains:35] I/O this shift: In: 1000 [I.V.:1000] Out: 220 [Urine:200; Blood:20] Lab/Radiology/Diagnostic Review: Recent Labs Lab Units 11/03/21 0542 11/02/21201611/02/21 0656 10/31/21 0500 10/30/21 0910 SODIUM mmol/L -- -- 131* 131* 133* POTASSIUM PLASMA mmol/L -- -- 4.4 4.2 3.9 CHLORIDE mmol/L -- -- 96* 98 97 CO2 mmol/L -- -- 29 26 27 BUN SERUM mg/dL -- -- 9 11 10 CREATININE mg/dL -- -- 0.90 0.89 0.81 GLUCOSE mg/dL -- -- 99 105 124 POC GLUCOSE MONITOR mg/dL 86 93 -- -- -- CALCIUM mg/dL -- -- 8.9 8.3* 8.5 Recent Labs Lab Units 11/02/2156 10/31/21 0500 10/30/21 0910 WBC K/cumm 6.1 5.0 9.4 HEMOGLOBIN g/dL 10.3* 8.9* 10.1* HEMATOCRIT % 31.4* 28.1* 30.5* PLATELETS K/cumm 418* 323 323 Physical Exam: General appearance: alert, cooperative, no distress, oriented to person, place, and time Lungs: breath sounds normal and symmetric; no rales or wheezes Heart: regular rhythm, normal S1 and S2, without murmurs, gallops or rubs Abdomen: soft without mass, non-tender, with normal bowel sounds Extremities: no clubbing, cyanosis or edema Head: Normocephalic, without trauma Eyes: sclera and conjunctiva clear, EOMI and PERRLA, lids normal Nose: nares open; no septal deviation is noted Joints: ranges of motion normal without inflammation, effusion or deformity Skin: no rashes or other abnormalities are noted Neurologic: mental status normal; alert and oriented X 3; cranial nerves II - XII are grossly intact Scheduled Medications: acetaminophen, 1,000 mg, oral, Q8H JESSENIA meropenem, 1,000 mg, intravenous, Q8H pantoprazole DR, 40 mg, oral, Daily lubricant, 1 drop, each eye, TID pregabalin, 150 mg, oral, Daily pregabalin, 300 mg, oral, Nightly rOPINIRole, 2 mg, oral, Nightly sodium chloride 0.9%, 0.5-20 mL, intra-catheter, Q8H JESSENIA vancomycin, 125 mg, oral, Daily PRN Medications: ??? bisacodyL ??? bisacodyl EC ??? budesonide-formoteroL ??? dextrose ??? morphine ??? ondansetron ODT OR ondansetron ??? oxyCODONE ??? oxyCODONE ??? polyethylene glycol ??? ramelteon ??? sodium chloride 0.9% ??? tiZANidine Assessment and plan Principal Problem: Severe sepsis (HCC) Active Problems: Lumbar stenosis without neurogenic claudication Infection of lumbar spine (CMS/HCC) ([facility]) Infection following a procedure, deep incisional surgical site, initial encounter History of Clostridium difficile colitis GERD without esophagitis Hyponatremia SIADH (syndrome of inappropriate ADH production) (CMS/HCC) ([facility]) Serratia marcescens bacteremia Post op lumbar spine abscess Lumbar radiculopathy status post posterior lumbar decompression and spinal fusion 10/11/2021 -s/p I+D 10/29, on cefepime >Merrem -s/p repeat debridement 11/03: Purulence deep and in the superficial areas. Significant amount of tissue which was removed -increase pain medication: IV morphine, roxicodone for pain control -PT/OT -IVF for borderline bp and poor po intake History of recurrent C diff infection -PO vanco Hyponatremia due to SIADH ?? GERD without known esophagitis PPI . ?? Code status: Full Code ?? Goals for discharge / anticipated LOS: Anticipate admission > 2 midnights for management of suspected severe sepsis, SSI ?? Medical complexity / risk: Moderate * Kristine Young MD - 11/03/2021 12:27 PM CDT Infectious Disease Progress Note PATIENT NAME: Douglas Horn : 1950 ADMISSION DATE: 10/28/2021 HOSPITAL COURSE: T-max 36.6 T-cur 36.7 WBC 6,100 Discussed last evening with dr. Garcia. Quite uncomfortable returning from the OR. concerned. Two Hemovac drains now. Wound vac over closed incision. Awake and cooperating. Nursing just medicated. Spoke with his outside the room. Many questions. INTERIM HISTORY: Prior use of a PICC line for treating LRTI Multiple courses of inhaled Tobramycin 2021 for Bronchiectasis. History of L5-S1 decompression and diskectomy June 03, 2021. Status post L5-S1 interbody fusion October 11, 2021. I&D lumbar wound 10/29/2021 Blood cultures 10/28 +Serratia marcescens Blood cultures 10/29 +Serratia Incisional wound +Serratia. Vancomycin x2 Cefepime 10/29-11/01 Meropenem 11/02 > Review of Systems Constitutional: Positive for weight loss. Negative for fever. HENT: Negative for congestion. Respiratory: Negative for cough and shortness of breath. Cardiovascular: Negative for chest pain. Gastrointestinal: Negative for diarrhea. Genitourinary: Negative for dysuria. Musculoskeletal: Positive for back pain. Neurological: Positive for sensory change. Negative for focal weakness. Medications: acetaminophen, 1,000 mg, oral, Q8H JESSENIA meropenem, 1,000 mg, intravenous, Q8H pantoprazole DR, 40 mg, oral, Daily lubricant, 1 drop, each eye, TID pregabalin, 150 mg, oral, Daily pregabalin, 300 mg, oral, Nightly rOPINIRole, 2 mg, oral, Nightly sodium chloride 0.9%, 0.5-20 mL, intra-catheter, Q8H JESSENIA vancomycin, 125 mg, oral, Daily Vitals: 24hr Min/Max: Temp Min: 36.4 ??C (97.5 ??F) Max: 36.7 ??C (98 ??F) Pulse Min: 61 Max: 78 BP Min: 90/64 Max: 120/75 Resp Min: 10 Max: 16 SpO2 Min: 94 % Max: 100 % INTAKE/OUTPUT: I/O last 3 completed shifts: In: 2972 [P.O.:2972] Out: 585 [Urine:550; Drains:35] Physical Exam: Physical Exam Temperature: 36.7 General Appearance: Awake in bed. Postop pain Head: Normocephalic Eyes: Conjunctiva/corneas clear Ears: Hearing grossly intact Nose: No drainage or sinus tenderness Throat: Lips, mucosa, and tongue normal Neck: Symmetric Back: Lumbar incision obscured by wound vac. Hemovac drains. Lungs: Clear to auscultation bilaterally, RR 18 Cardiovascular: Regular S1 and S2, no murmur, HR 80 Abdomen: Soft, non-tender, no organomegaly Extremities: No cyanosis or edema Skin: No rashes, lesions or bruising Lymph nodes: No adenopathy Neurologic: Peripheral neuropathy Psychosocial: Anxious - uncomfortable. Lab/Radiology/Diagnostic Review: RECENT LABS Recent Labs Lab Units 11/02/21 0656 10/31/21 0500 10/30/21 0910 WBC K/cumm 6.1 5.0 9.4 HEMOGLOBIN g/dL 10.3* 8.9* 10.1* HEMATOCRIT % 31.4* 28.1* 30.5* PLATELETS K/cumm 418* 323 323 Recent Labs Lab Units 11/03/21 0542 11/02/21201611/02/21 0656 10/31/21 0500 10/30/21 0910 10/29/21 0032 SODIUM mmol/L -- -- 131* 131* 133* 130* POTASSIUM PLASMA mmol/L -- -- 4.4 4.2 3.9 4.2 CHLORIDE mmol/L -- -- 96* 98 97 98 CO2 mmol/L -- -- 29 26 27 23 BUN SERUM mg/dL -- -- 9 11 10 10 CREATININE mg/dL -- -- 0.90 0.89 0.81 0.89 [id number] mL/min/1.73 m2 -- -- 92 92 95 92 GLUCOSE mg/dL -- -- 99 105 124 103 POC GLUCOSE MONITOR mg/dL 86 < > -- -- -- -- CALCIUM mg/dL -- -- 8.9 8.3* 8.5 8.1* ALBUMIN g/dL -- -- -- -- -- 3.0* PHOSPHORUS PLASMA mg/dL -- -- -- -- -- 2.8 < > = values in this interval not displayed. Recent Labs Lab Units 10/29/21 0032 ALK PHOS Units/L 83 BILIRUBIN TOTAL mg/dL 0.6 TOTAL PROTEIN g/dL 5.6* ALT Units/L 34 AST Units/L 32 IMPRESSIONS: 1. Surgical site infection of the lumbar spine anticipating I and D this afternoon. Patient developed increasing back pain, fever, and incisional drainage over the weekend. 2. Status post L5-S1 interbody fusion October 11, 2021. 3. History of L5-S1 decompression and diskectomy June 03, 2021. 4. 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 5. History of bronchiectasis and Pseudomonas colonization. 6. SIADH. 7. Peripheral neuropathy. 8. 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 9. Gastroesophageal reflux disease. 10. A 30 pound weight loss in the last 9 months. PLAN: 1. Gram stains reviewed from the OR. NOS 2. Continue Meropenem 3. Maintain on once daily Vancomycin PO. 4. Many questions each day. Reviewed for his outside the room. Time spent: 37 minutes. Kristine Young MD 12:53 PM 11/03/2021 * Milad Garcia MD - 11/03/2021 10:19 AM CDT Ortho Spine Progress Note History: 71-year-old status post L5-S1 posterior spinal fusion decompression with TLIF on 10/11/2021 complicated by postoperative infection with Serratia s/p irrigation and debridement on 10/29/2021 and repeat debridement on 11/03/2021. Interval: Doing well postoperatively. Has pain at his incision site, stinging sensation. Denies anyleg pain. Objective VSS Right Left IP 5/5 5/5 Quad 5/5 5/5 TA 5/5 5/5 EHL 5/5 5/5 GS 5/5 5/5 Sensation Right: Sensation intact to light touch in all dermatomes. Left: Sensation intact to light touch in all dermatomes. Drains Superficial: Serosanguineous blood in tubing Deep: Serosanguineous blood in tubing Plan: Consults: Medicine primary, Infectious Disease, spine surgery Respiratory: IS as much as patient can tolerate Imaging: CT complete with instrumentation in good position. Drains: Continue to monitor output [place]: None Abx: Meropenem DVT ppx: SCDs, ambulate t.i.d. Pain control: dilaudid prn, oxycodone prn, tylenol prn WB: Spinal fusion precautions PT progress: Eval and treat Dispo plan: Discharge pending cultures, antibiotics, pain control, physical therapy, occupational therapy. Milad Garcia M.D. [facility] This document was created using speech [...] addressed to the provider's office for clarification. * Milad Garcia MD - 11/03/2021 8:02 AM CDT Ortho Spine Progress Note History: 71-year-old status post L5-S1 posterior spinal fusion decompression with TLIF on 10/11/2021 complicated by postoperative infection with Serratia s/p irrigation and debridement on 10/29/2021. Interval: Doing well this morning. No new issues. Dressing removed this morning, increased drainageand redness at the incision site. Objective VSS More drainage at the incision site this morning. Right Left IP 5/5 5/5 Quad 5/5 5/5 TA 5/5 5/5 EHL 5/5 5/5 GS 5/5 5/5 Sensation Right: Sensation intact to light touch in all dermatomes. Left: Sensation intact to light touch in all dermatomes. Drains Deep: None charted, some purulence in the drain tubing mixed with blood. Plan: Consults: Medicine primary, Infectious Disease, spine surgery Respiratory: IS as much as patient can tolerate Imaging: None Drains: Continue to monitor output [place]: None Abx: Cefepime, PICC line on Thursday. DVT ppx: SCDs, ambulate t.i.d. Pain control: dilaudid prn, oxycodone prn, tylenol prn WB: Spinal fusion precautions PT progress: Eval and treat Dispo plan: To OR today for I and D. Milad Garcia M.D. [facility] This document was created using speech [...] addressed to the provider's office for clarification. * Kristine Young MD - 11/02/2021 11:26 AM CDT Infectious Disease Progress Note PATIENT NAME: Douglas Horn : 1950 ADMISSION DATE: 10/28/2021 HOSPITAL COURSE: T-max 36.8 T-cur 36.4 WBC 6,[address] in bed. visiting. Dr. Garcia visited and did not like the incision with some swelling and drainage at the lower aspect. Slightly raised and tender over lower half and tender. Requested time in the OR. Please re-culture. Discussed methods for closure. Retention sutures with packing and or wound vac if needed. Will notify [facility] of delay in discharge. INTERIM HISTORY: Prior use of a PICC line for treating LRTI Multiple courses of inhaled Tobramycin 2021 for Bronchiectasis. History of L5-S1 decompression and diskectomy June 03, 2021. Status post L5-S1 interbody fusion October 11, 2021. I&D lumbar wound 10/29/2021 Blood cultures 10/28 +Serratia marcescens Blood cultures 10/29 +Serratia Incisional wound +Serratia. Vancomycin x2 Cefepime 10/29-11/01 Meropenem 11/02 > Review of Systems Constitutional: Positive for weight loss. Negative for fever. HENT: Negative for congestion. Respiratory: Negative for cough and shortness of breath. Cardiovascular: Negative for chest pain. Gastrointestinal: Negative for diarrhea. Genitourinary: Negative for dysuria. Musculoskeletal: Positive for back pain. Neurological: Positive for sensory change. Negative for focal weakness. Medications: acetaminophen, 1,000 mg, oral, Q8H JESSENIA meropenem, 1,000 mg, intravenous, Q8H pantoprazole DR, 40 mg, oral, Daily lubricant, 1 drop, each eye, TID pregabalin, 150 mg, oral, Daily pregabalin, 300 mg, oral, Nightly rOPINIRole, 2 mg, oral, Nightly sodium chloride 0.9%, 0.5-20 mL, intra-catheter, Q8H JESSENIA vancomycin, 125 mg, oral, Daily Vitals: 24hr Min/Max: Temp Min: 36.4 ??C (97.5 ??F) Max: 36.8 ??C (98.3 ??F) Pulse Min: 65 Max: 84 BP Min: 78/37 Max: 109/56 Resp Min: 16 Max: 16 SpO2 Min: 95 % Max: 98 % INTAKE/OUTPUT: I/O last 3 completed shifts: In: 4000 [P.O.:4000] Out: 1025 [Urine:1025] Physical Exam: Physical Exam Temperature: 36.4 General Appearance: Awake in bed. Turns easily. . Head: Normocephalic Eyes: Conjunctiva/corneas clear Ears: Hearing grossly intact Nose: No drainage or sinus tenderness Throat: Lips, mucosa, and tongue normal Neck: Symmetric Back: Lumbar incision dressed. Lungs: Clear to auscultation bilaterally, RR 16 Cardiovascular: Regular S1 and S2, no murmur, HR 48 Abdomen: Soft, non-tender, no organomegaly Extremities: No cyanosis or edema Skin: No rashes, lesions or bruising Lymph nodes: No adenopathy Neurologic: Peripheral neuropathy\ Psychosocial: Normal affect and mood Lab/Radiology/Diagnostic Review: RECENT LABS Recent Labs Lab Units 11/02/21 0656 10/31/21 0500 10/30/21 0910 WBC K/cumm 6.1 5.0 9.4 HEMOGLOBIN g/dL 10.3* 8.9* 10.1* HEMATOCRIT % 31.4* 28.1* 30.5* PLATELETS K/cumm 418* 323 323 Recent Labs Lab Units 11/02/21 0656 10/31/21 0500 10/30/21 0910 10/29/21 0032 SODIUM mmol/L 131* 131* 133* 130* POTASSIUM PLASMA mmol/L 4.4 4.2 3.9 4.2 CHLORIDE mmol/L 96* 98 97 98 CO2 mmol/L 29 26 27 23 BUN SERUM mg/dL 9 11 10 10 CREATININE mg/dL 0.90 0.89 0.81 0.89 [id number] mL/min/1.73 m2 92 92 95 92 GLUCOSE mg/dL 99 105 124 103 CALCIUM mg/dL 8.9 8.3* 8.5 8.1* ALBUMIN g/dL -- -- -- 3.0* PHOSPHORUS PLASMA mg/dL -- -- -- 2.8 Recent Labs Lab Units 10/29/21 0032 ALK PHOS Units/L 83 BILIRUBIN TOTAL mg/dL 0.6 TOTAL PROTEIN g/dL 5.6* ALT Units/L 34 AST Units/L 32 IMPRESSIONS: 1. Surgical site infection of the lumbar spine anticipating I and D this afternoon. Patient developed increasing back pain, fever, and incisional drainage over the weekend. 2. Status post L5-S1 interbody fusion October 11, 2021. 3. History of L5-S1 decompression and diskectomy June 03, 2021. 4. 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 5. History of bronchiectasis and Pseudomonas colonization. 6. SIADH. 7. Peripheral neuropathy. 8. 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 9. Gastroesophageal reflux disease. 10. A 30 pound weight loss in the last 9 months. PLAN: 1. Plan to return to OR for I&D. 2. Re-culture. 3. Meropenem replaces Cefepime. 4. Maintain on once daily Vancomycin PO. 5. Many questions each day. Reviewed for his . Time spent: 40 minutes. Kristine Young MD 1:14 PM 11/02/2021 * Juliocesar Calix MD - 11/02/2021 9:56 AM CDT General Medicine Daily Progress Admit date: 10/28/2021 10:28 PM Reason for visit/follow up Chief Complaint: Back pain New Symptoms Pt is feeling well. He was seen by Dr Garcia and noted there is a 2.5 cm area in the middle that is draining significantly. ?? Data Vitals: 24hr Min/Max: Temp Min: 36.4 ??C (97.5 ??F) Max: 36.8 ??C (98.3 ??F) Pulse Min: 65 Max: 84 BP Min: 78/37 Max: 109/56 Resp Min: 16 Max: 16 SpO2 Min: 95 % Max: 98 % Most Recent : Vitals: 11/02/21 0834 BP: 104/62 Pulse: 71 Resp: 16 Temp: 36.4 ??C (97.5 ??F) SpO2: 98% I/O last 2 completed shifts: In: 4000 [P.O.:4000] Out: - I/O this shift: In: 972 [P.O.:972] Out: - Lab/Radiology/Diagnostic Review: Recent Labs Lab Units 11/02/21 0656 10/31/21 0500 10/30/21 0910 SODIUM mmol/L 131* 131* 133* POTASSIUM PLASMA mmol/L 4.4 4.2 3.9 CHLORIDE mmol/L 96* 98 97 CO2 mmol/L 29 26 27 BUN SERUM mg/dL 9 11 10 CREATININE mg/dL 0.90 0.89 0.81 GLUCOSE mg/dL 99 105 124 CALCIUM mg/dL 8.9 8.3* 8.5 Recent Labs Lab Units 11/02/21 0656 10/31/21 0500 10/30/21 0910 WBC K/cumm 6.1 5.0 9.4 HEMOGLOBIN g/dL 10.3* 8.9* 10.1* HEMATOCRIT % 31.4* 28.1* 30.5* PLATELETS K/cumm 418* 323 323 Physical Exam: General appearance: alert, cooperative, no distress, oriented to person, place, and time Lungs: breath sounds normal and symmetric; no rales or wheezes Heart: regular rhythm, normal S1 and S2, without murmurs, gallops or rubs Abdomen: soft without mass, non-tender, with normal bowel sounds Extremities: no clubbing, cyanosis or edema Head: Normocephalic, without trauma Eyes: sclera and conjunctiva clear, EOMI and PERRLA, lids normal Nose: nares open; no septal deviation is noted Joints: ranges of motion normal without inflammation, effusion or deformity Skin: no rashes or other abnormalities are noted Neurologic: mental status normal; alert and oriented X 3; cranial nerves II - XII are grossly intact Scheduled Medications: acetaminophen, 1,000 mg, oral, Q8H JESSENIA meropenem, 1,000 mg, intravenous, Q8H pantoprazole DR, 40 mg, oral, Daily lubricant, 1 drop, each eye, TID pregabalin, 150 mg, oral, Daily pregabalin, 300 mg, oral, Nightly rOPINIRole, 2 mg, oral, Nightly sodium chloride 0.9%, 0.5-20 mL, intra-catheter, Q8H JESSENIA vancomycin, 125 mg, oral, Daily PRN Medications: ??? bisacodyL ??? bisacodyl EC ??? budesonide-formoteroL ??? morphine ??? ondansetron ODT OR ondansetron ??? oxyCODONE ??? oxyCODONE ??? polyethylene glycol ??? ramelteon ??? sodium chloride 0.9% ??? tiZANidine Assessment and plan Principal Problem: Severe sepsis (HCC) Active Problems: Lumbar stenosis without neurogenic claudication Infection of lumbar spine (CMS/HCC) ([facility]) Infection following a procedure, deep incisional surgical site, initial encounter History of Clostridium difficile colitis GERD without esophagitis Hyponatremia SIADH (syndrome of inappropriate ADH production) (CMS/HCC) ([facility]) Serratia marcescens bacteremia Post op lumbar spine abscess Lumbar radiculopathy status post posterior lumbar decompression and spinal fusion 10/11/2021 -s/p I+D 10/29, on cefepime >Merrem -plan repeat I and D tomorrow morning. ?? -PT/OT History of recurrent C diff infection -PO vanco Hyponatremia due to SIADH ?? GERD without known esophagitis PPI . ?? Code status: Full Code ?? Goals for discharge / anticipated LOS: Anticipate admission > 2 midnights for management of suspected severe sepsis, SSI ?? Medical complexity / risk: Moderate * Milad Garcia MD - 11/02/2021 7:17 AM CDT Ortho Spine Progress Note History: 71-year-old status post L5-S1 posterior spinal fusion decompression with TLIF on 10/11/2021 complicated by postoperative infection with Serratia s/p irrigation and debridement on 10/29/2021. Interval: Doing well this morning. No new issues. Objective VSS Dressing taken down, incision is healing up both proximally and distally however there is a 2.5 cm area in the middle that is draining significantly. Right Left IP 5/5 5/5 Quad 5/5 5/5 TA 5/5 5/5 EHL 5/5 5/5 GS 5/5 5/5 Sensation Right: Sensation intact to light touch in all dermatomes. Left: Sensation intact to light touch in all dermatomes. Drains Deep: None charted, some purulence in the drain tubing mixed with blood. Plan: Consults: Medicine primary, Infectious Disease, spine surgery Respiratory: IS as much as patient can tolerate Imaging: None Drains: Continue to monitor output [place]: None Abx: Cefepime, PICC line on Thursday. DVT ppx: SCDs, ambulate t.i.d. Pain control: dilaudid prn, oxycodone prn, tylenol prn WB: Spinal fusion precautions PT progress: Eval and treat Dispo plan: NPO at midnight. To OR for repeat I and D tomorrow morning. Milad Garcia M.D. [facility] This document was created using speech [...] addressed to the provider's office for clarification. * Juliocesar Calix MD - 11/01/2021 1:13 PM CDT General Medicine Daily Progress Admit date: 10/28/2021 10:28 PM Reason for visit/follow up Chief Complaint: Back pain New Symptoms No acute vent. Pain is controlled. No fever, no chills, no cough, no chest pain, no dyspnea, no nausea/vomiting, no abdominal pain. Nodiarrhea or constipation Data Vitals: 24hr Min/Max: Temp Min: 36.4 ??C (97.5 ??F) Max: 37 ??C (98.6 ??F) Pulse Min: 61 Max: 79 BP Min: 88/55 Max: 158/96 Resp Min: 16 Max: 18 SpO2 Min: 95 % Max: 100 % Most Recent : Vitals: 11/01/21 0835 BP: (S) 93/55 Pulse: 75 Resp: 16 Temp: SpO2: 100% I/O last 2 completed shifts: In: - Out: 1025 [Urine:1025] I/O this shift: In: 1500 [P.O.:1500] Out: - Lab/Radiology/Diagnostic Review: Recent Labs Lab Units 10/31/21 0500 10/30/21 0910 10/29/21 0032 SODIUM mmol/L 131* 133* 130* POTASSIUM PLASMA mmol/L 4.2 3.9 4.2 CHLORIDE mmol/L 98 97 98 CO2 mmol/L 26 27 23 BUN SERUM mg/dL 11 10 10 CREATININE mg/dL 0.89 0.81 0.89 GLUCOSE mg/dL 105 124 103 CALCIUM mg/dL 8.3* 8.5 8.1* Recent Labs Lab Units 10/31/21 0500 10/30/21 0910 10/29/21 0032 WBC K/cumm 5.0 9.4 14.0* HEMOGLOBIN g/dL 8.9* 10.1* 10.0* HEMATOCRIT % 28.1* 30.5* 30.0* PLATELETS K/cumm 323 323 316 Physical Exam: General appearance: alert, cooperative, no distress, oriented to person, place, and time Lungs: breath sounds normal and symmetric; no rales or wheezes Heart: regular rhythm, normal S1 and S2, without murmurs, gallops or rubs Abdomen: soft without mass, non-tender, with normal bowel sounds Extremities: no clubbing, cyanosis or edema Head: Normocephalic, without trauma Eyes: sclera and conjunctiva clear, EOMI and PERRLA, lids normal Nose: nares open; no septal deviation is noted Joints: ranges of motion normal without inflammation, effusion or deformity Skin: no rashes or other abnormalities are noted Neurologic: mental status normal; alert and oriented X 3; cranial nerves II - XII are grossly intact Scheduled Medications: acetaminophen, 1,000 mg, oral, Q8H JESSENIA cefepime, 1,000 mg, intravenous, Q8H JESSENIA pantoprazole DR, 40 mg, oral, Daily lubricant, 1 drop, each eye, TID pregabalin, 150 mg, oral, Daily pregabalin, 300 mg, oral, Nightly rOPINIRole, 2 mg, oral, Nightly sodium chloride 0.9%, 0.5-20 mL, intra-catheter, Q8H JESSENIA vancomycin, 125 mg, oral, Q6H JESSENIA PRN Medications: ??? bisacodyL ??? bisacodyl EC ??? budesonide-formoteroL ??? morphine ??? ondansetron ODT OR ondansetron ??? oxyCODONE ??? oxyCODONE ??? polyethylene glycol ??? ramelteon ??? sodium chloride 0.9% ??? tiZANidine Assessment and plan Principal Problem: Severe sepsis (HCC) Active Problems: Lumbar stenosis without neurogenic claudication Infection of lumbar spine (CMS/HCC) (HCC) Infection following a procedure, deep incisional surgical site, initial encounter History of Clostridium difficile colitis GERD without esophagitis Hyponatremia SIADH (syndrome of inappropriate ADH production) (CMS/HCC) (HCC) Serratia marcescens bacteremia Post op lumbar spine abscess Lumbar radiculopathy status post posterior lumbar decompression and spinal fusion 10/11/2021 -s/p I+D 10/29, on cefepime -PT/OT History of recurrent C diff infection -to complete PO vanco Hyponatremia due to SIADH ?? GERD without known esophagitis PPI . ?? Code status: Full Code ?? Goals for discharge / anticipated LOS: Anticipate admission > 2 midnights for management of suspected severe sepsis, SSI ?? Medical complexity / risk: Moderate dispo DC home with IV antibiotic when better * Selene Martini, OT - 11/01/2021 1:08 PM CDT Occupational Therapy Treatment/Discharge 11/01/21 1308 General Session Type Treatment (/discharge secondary to higher level of independence with ADLs and meeting all OT acute care goals) OT Received On 11/01/21 Safe Environment Arm Band Checked;Call Light within Reach;Notified RN Subjective Agreeable to Therapy Family/Caregiver Present No Precautions Precautions Fall risk;Spinal/Back Pain Assessment Pain Assessment 0-10 Pain Score 4 Pain Type Surgical pain Pain Location Back (Lumbar) Clinical Progression Not changed Static Sitting Balance Static Sitting-Balance Support Feet supported Static Sitting-Sitting Surface Bed Static Sitting-Level of Assistance Independent Static Standing Balance Static Standing-Balance Support No upper extremity supported Static Standing-Standing Surface Floor Static Standing-Level of Assistance Independent LE Dressing LE Dressing: Where assessed Chair;Edge of bed LE Dressing: Level of assistance Independent LE Dressing: Assistance with Don/doff R shoe;Don/doff L shoe Toileting Toileting: Where assessed Toilet Toileting: Level of assistance Independent Bed Mobility 1 Bed Mobility From 1 Supine Bed Mobility Type 1 To and from Bed Mobility to 1 Edge of bed Level of Assistance 1 Independent Bed Mobility Comments 1 Via log rolling technique Transfer 1 Transfer From 1 Sit Transfer Type 1 To and from Transfer to 1 Stand Technique 1 Stand to sit;Sit to stand Transfer Device 1 No device Transfer Level of Assistance 1 Independent Toilet Transfers Toilet Transfer From (ambulating) Toilet Transfer Type To and from Toilet Transfer to Standard toilet Toilet Transfer Technique Stand pivot;Ambulating Toilet Transfer: Equipment No device Toilet Transfers Independent Shower Transfers Shower Transfer From (ambulating) Shower Transfer Type To and From Shower Transfer to Standing Shower Transfer Technique Stand pivot;Ambulating Shower Transfer: Equipment No device Shower Transfers Independent Cognition Overall Cognitive Status WFL Arousal/Alertness Alert Attention Span Appears intact Memory Appears intact Current communication Appears Intact Orientation Oriented X4 (person, place, time, situation) Following Commands Follows all commands and directions without difficulty Safety Judgment Good awareness of safety precautions Awareness of Errors Good awareness of errors made Insight Fully aware of deficits Problem Solving Able to problem solve independently Compliance/Behavior Easy to engage Perseveration Not present Additional Activities Additional Activities Comments Pt completed functional mobility without AE 500' with SBA/independent this date. Pt demonstrated item retrieval while maintaining spinal precautions with unilateral UE support [facility] modified independence Activity Tolerance Endurance Endurance does not limit participation in activity Activity Tolerance Comments Pre activity vitals: 100% on RA, 79 bpm, 99/60. VSS throughout session. Other Comments Comments Pt reviewed all spinal precautions in relation with ADL and IADLs thi sdate. Pt demonstrated/verbalized understanding this date. No further skilled OT services are recommended due to pt at [facility] ADLs. Pt in bed to end session with call light within reach and all needs met. Assessment Prognosis Good Plan Plan Discharge Recommendation/Plan OT Recommendation (S) Home with family Treatment/Interventions ADL/IADL retraining;Balance Training;Bed mobility;Functional activity;Functional mobility training;Functional transfer training;Developmental progression Progress Discontinue OT Education: Patient has been educated on the role of OT, safety, precautions, ADL training, mobilitytraining, and use of adaptive equipment/DME. Education completed via verbal instruction and return demonstration. Patient verbalized understanding and demonstrated understanding * Milad Garcia MD - 11/01/2021 10:30 AM CDT Ortho Spine Progress Note History: 71-year-old status post L5-S1 posterior spinal fusion decompression with TLIF on 10/11/2021 complicated by postoperative infection with Serratia s/p irrigation and debridement on 10/29/2021. Interval: Doing well this morning. Moves easily from a chair. Pain is well controlled. Objective VSS Dressing taken down, incision is healing up. There is some minor drainage at the inferior aspect ofthe incision but nothing active. No surrounding erythema. Sutures in place. Right Left IP 5/5 5/5 Quad 5/5 5/5 TA 5/5 5/5 EHL 5/5 5/5 GS 5/5 5/5 Sensation Right: Sensation intact to light touch in all dermatomes. Left: Sensation intact to light touch in all dermatomes. Drains Deep: 60 cc overnight, serosanguineous Plan: Consults: Medicine primary, Infectious Disease, spine surgery Respiratory: IS as much as patient can tolerate Imaging: None Drains: Continue to monitor output [place]: None Abx: Cefepime, PICC line on Thursday. DVT ppx: SCDs, ambulate t.i.d. Pain control: dilaudid prn, oxycodone prn, tylenol prn WB: Spinal fusion precautions PT progress: Eval and treat Dispo plan: DC cultures finalizing, PICC line placement, and setting up IV antibiotics at home. Probable discharge on Thursday. Milad Garcia M.D. [facility] This document was created using speech [...] addressed to the provider's office for clarification. * Kristine Young MD - 11/01/2021 10:11 AM CDT Infectious Disease Progress Note PATIENT NAME: Doulgas Horn : 1950 ADMISSION DATE: 10/28/2021 HOSPITAL COURSE: T-max 37 T-cur 36.4 WBC 5,000 Up to a chair. Back is sore with increased activity this am. Hemovac remains but no recorded output yesterday or today. Dr. Garcia visited this am. Spoke with C and nursing available Thursday with possible discharge Thursday. 10/31/2021 Up in his room with PT and OT this am. Minimal output form lumbar drain. Dressing changed and discussed with nursing. Photo taken on his phone. Blood and wound cultures with Serratia Ceftriaxone FLY is actually < 0.25. Discussed with Micro.Penicillins resistant. Spoke with [facility] and have obtained outpatient nursing for Thursday with possible discharge for Thursday. INTERIM HISTORY: Prior use of a PICC line for treating LRTI Multiple courses of inhaled Tobramycin 2021 for Bronchiectasis. History of L5-S1 decompression and diskectomy June 03, 2021. Status post L5-S1 interbody fusion October 11, 2021. I&D lumbar wound 10/29/2021 Blood cultures 10/28 +Serratia marcescens Blood cultures 10/29 +Serratia Incisional wound +Serratia. Vancomycin x2 Cefepime 10/29-11/01 Ertapenem > Review of Systems Constitutional: Positive for weight loss. Negative for fever. HENT: Negative for congestion. Respiratory: Negative for cough and shortness of breath. Cardiovascular: Negative for chest pain. Gastrointestinal: Negative for diarrhea. Genitourinary: Negative for dysuria. Musculoskeletal: Positive for back pain. Neurological: Positive for sensory change. Negative for focal weakness. Medications: acetaminophen, 1,000 mg, oral, Q8H JESSENIA cefepime, 1,000 mg, intravenous, Q8H JESSENIA pantoprazole DR, 40 mg, oral, Daily lubricant, 1 drop, each eye, TID pregabalin, 150 mg, oral, Daily pregabalin, 300 mg, oral, Nightly rOPINIRole, 2 mg, oral, Nightly sodium chloride 0.9%, 0.5-20 mL, intra-catheter, Q8H JESSENIA vancomycin, 125 mg, oral, Q6H JESSENIA Vitals: 24hr Min/Max: Temp Min: 36.4 ??C (97.5 ??F) Max: 37 ??C (98.6 ??F) Pulse Min: 61 Max: 79 BP Min: 88/55 Max: 158/96 Resp Min: 16 Max: 18 SpO2 Min: 95 % Max: 100 % INTAKE/OUTPUT: I/O last 3 completed shifts: In: 100 [P.O.:100] Out: 1525 [Urine:1525] Physical Exam: Physical Exam Temperature: 36.4 General Appearance: Up without assistance. Head: Normocephalic Eyes: Conjunctiva/corneas clear Ears: Hearing grossly intact Nose: No drainage or sinus tenderness Throat: Lips, mucosa, and tongue normal Neck: Symmetric Back: Lumbar incision dressed. Lungs: Clear to auscultation bilaterally, RR 16 Cardiovascular: Regular S1 and S2, no murmur, HR 68 Abdomen: Soft, non-tender, no organomegaly Extremities: No cyanosis or edema Skin: No rashes, lesions or bruising Lymph nodes: No adenopathy Neurologic: Peripheral neuropathy\ Psychosocial: Normal affect and mood Lab/Radiology/Diagnostic Review: RECENT LABS Recent Labs Lab Units 10/31/21 0500 10/30/21 0910 10/29/21 0032 WBC K/cumm 5.0 9.4 14.0* HEMOGLOBIN g/dL 8.9* 10.1* 10.0* HEMATOCRIT % 28.1* 30.5* 30.0* PLATELETS K/cumm 323 323 316 Recent Labs Lab Units 10/31/21 0500 10/30/21 0910 10/29/21 0032 SODIUM mmol/L 131* 133* 130* POTASSIUM PLASMA mmol/L 4.2 3.9 4.2 CHLORIDE mmol/L 98 97 98 CO2 mmol/L 26 27 23 BUN SERUM mg/dL 11 10 10 CREATININE mg/dL 0.89 0.81 0.89 [id number] mL/min/1.73 m2 92 95 92 GLUCOSE mg/dL 105 124 103 CALCIUM mg/dL 8.3* 8.5 8.1* ALBUMIN g/dL -- -- 3.0* PHOSPHORUS PLASMA mg/dL -- -- 2.8 Recent Labs Lab Units 10/29/21 0032 ALK PHOS Units/L 83 BILIRUBIN TOTAL mg/dL 0.6 TOTAL PROTEIN g/dL 5.6* ALT Units/L 34 AST Units/L 32 IMPRESSIONS: 1. Surgical site infection of the lumbar spine anticipating I and D this afternoon. Patient developed increasing back pain, fever, and incisional drainage over the weekend. 2. Status post L5-S1 interbody fusion October 11, 2021. 3. History of L5-S1 decompression and diskectomy June 03, 2021. 4. 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 5. History of bronchiectasis and Pseudomonas colonization. 6. SIADH. 7. Peripheral neuropathy. 8. 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 9. Gastroesophageal reflux disease. 10. A 30 pound weight loss in the last 9 months. PLAN: 1. Ertapenem will replace Cefepime for outpatient therapy. 2. Maintain on once daily Vancomycin PO. 3. [facility] can provide nursing on Thursday. 4. PICC line at discharge. 5. Fewer questions today. Up with therapy. Time spent: 33 minutes. Kristine Young MD 12:45 PM 11/01/2021 * Juliocesar Calix MD - 10/31/2021 1:45 PM CDT General Medicine Daily Progress Admit date: 10/28/2021 10:28 PM Reason for visit/follow up Chief Complaint: Back pain New Symptoms Patient is doing well, pain is controlled. No fever, no chills, no cough, no chest pain, no dyspnea, no nausea/vomiting, no abdominal pain. Nodiarrhea or constipation Cx +Serratia marcescens Data Vitals: 24hr Min/Max: Temp Min: 36.4 ??C (97.6 ??F) Max: 36.9 ??C (98.4 ??F) Pulse Min: 58 Max: 88 BP Min: 90/52 Max: 105/63 Resp Min: 16 Max: 17 SpO2 Min: 92 % Max: 96 % Most Recent : Vitals: 10/31/21 0850 BP: 95/54 Pulse: 71 Resp: 17 Temp: 36.5 ??C (97.7 ??F) SpO2: 93% I/O last 2 completed shifts: In: 100 [P.O.:100] Out: 910 [Urine:850; Drains:60] No intake/output data recorded. Lab/Radiology/Diagnostic Review: Recent Labs Lab Units 10/31/21 0500 10/30/21 0910 10/29/21 0032 SODIUM mmol/L 131* 133* 130* POTASSIUM PLASMA mmol/L 4.2 3.9 4.2 CHLORIDE mmol/L 98 97 98 CO2 mmol/L 26 27 23 BUN SERUM mg/dL 11 10 10 CREATININE mg/dL 0.89 0.81 0.89 GLUCOSE mg/dL 105 124 103 CALCIUM mg/dL 8.3* 8.5 8.1* Recent Labs Lab Units 10/31/21 0500 10/30/21 0910 10/29/21 0032 WBC K/cumm 5.0 9.4 14.0* HEMOGLOBIN g/dL 8.9* 10.1* 10.0* HEMATOCRIT % 28.1* 30.5* 30.0* PLATELETS K/cumm 323 323 316 Physical Exam: General appearance: alert, cooperative, no distress, oriented to person, place, and time Lungs: breath sounds normal and symmetric; no rales or wheezes Heart: regular rhythm, normal S1 and S2, without murmurs, gallops or rubs Abdomen: soft without mass, non-tender, with normal bowel sounds Extremities: no clubbing, cyanosis or edema Head: Normocephalic, without trauma Eyes: sclera and conjunctiva clear, EOMI and PERRLA, lids normal Nose: nares open; no septal deviation is noted Joints: ranges of motion normal without inflammation, effusion or deformity Skin: no rashes or other abnormalities are noted Neurologic: mental status normal; alert and oriented X 3; cranial nerves II - XII are grossly intact Scheduled Medications: acetaminophen, 1,000 mg, oral, Q8H JESSENIA cefepime, 1,000 mg, intravenous, Q8H JESSENIA pantoprazole DR, 40 mg, oral, Daily lubricant, 1 drop, each eye, TID pregabalin, 150 mg, oral, Daily pregabalin, 300 mg, oral, Nightly rOPINIRole, 2 mg, oral, Nightly sodium chloride 0.9%, 0.5-20 mL, intra-catheter, Q8H JESSENIA vancomycin, 125 mg, oral, Q6H JESSENIA PRN Medications: ??? bisacodyL ??? bisacodyl EC ??? budesonide-formoteroL ??? morphine ??? ondansetron ODT OR ondansetron ??? oxyCODONE ??? oxyCODONE ??? polyethylene glycol ??? ramelteon ??? sodium chloride 0.9% ??? tiZANidine Assessment and plan Principal Problem: Severe sepsis (HCC) Active Problems: Lumbar stenosis without neurogenic claudication Infection of lumbar spine (CMS/HCC) (HCC) Infection following a procedure, deep incisional surgical site, initial encounter History of Clostridium difficile colitis GERD without esophagitis Hyponatremia SIADH (syndrome of inappropriate ADH production) (CMS/HCC) (HCC) Serratia marcescens bacteremia Post op lumbar spine abscess Lumbar radiculopathy status post posterior lumbar decompression and spinal fusion 10/11/2021 -s/p I+D 10/29, on cefepime and vanco -ID follow up -PT/OT History of recurrent C diff infection -PO vanco Hyponatremia due to SIADH ?? GERD without known esophagitis PPI . ?? Code status: Full Code ?? Goals for discharge / anticipated LOS: Anticipate admission > 2 midnights for management of suspected severe sepsis, SSI ?? Medical complexity / risk: moderate * Rashmi Zhao PTA - 10/31/2021 11:20 AM CDT Physical Therapy 10/31/21 1120 PT Last Visit Session Type Treatment PT Received On 10/31/21 Safe Environment Chair Alarm placed and activated;Bed Alarm placed and activated;Arm Band Checked Subjective Agreeable to Therapy Family/Caregiver Present No Current Functional Status PT Functional Mobility Pt reports upright sitting in recliner induces lower lumbar pain, therapist retrieved chair w/ arms, placed waffle cushion to allow for upright sitting for meals Precautions Precautions Fall risk;Bed/Chair Alarm (pt refuses placement of bed/chair alarm) Precaution Comments Pt verbalized, demonstrated 3/3 spinal precautions Activity Tolerance Endurance Tolerates 30 min activity with multiple rests Activity Tolerance Comments Vitals VSS throughout session Pain Assessment Pain Assessment No/denies pain Clinical Progression Not changed Cognition Overall Cognitive Status WFL Orientation Oriented X4 (person, place, time, situation) Compliance/Behavior Easy to engage Dynamic Standing Balance Dynamic Standing-Balance Support No upper extremity supported Dynamic Standing-Balance Reaching for objects;Lateral lean Dynamic Standing-Standing Surface Floor Dynamic Standing-Level of Assistance Close supervision Transfer 1 Transfer From 1 Sit;Bed Transfer Type 1 To Transfer to 1 Stand Technique 1 Sit to stand Transfer Device 1 No device Transfer Level of Assistance 1 Standby Assist Trials/Comments 1 UE placed on knees force production Ambulation 1 Distance (ft) 1 150', 150' Surface 1 Level tile Device 1 No device Assistance 1 Standby Assist;Independent Gait: Requires verbal cues to 1 Increase base of support Quality of Gait 1 pt demonstrated steady repricol gait pattern Stairs 2 Number of Stairs 2 up/down 4 stairs x 2 trials (pt reports using walking stick on at home strairs, trialed SBQC for second trial, pt reports preference for walking stick) Rails 2 None (Comment) Device 2 SBQC (for second trial) Assistance 2 Contact Guard Assist Stairs: Requires assist with 2 Balance;Appropriate sequencing (reviewed appropriate sequencing w/demonstration) Curbs Curb Height up/down 6 curb step Curb: Method foward Curb: Device No device Curb: Level of Assistance Contact Guard Assist Other Comments Other PT Comments Pt asked to perform steps for prepare for return home, pt demonstrated good safety awareness. Plan Plan Continue with current plan;If this is the last note, consider this the discharge summary Recommendation/Plan PT Recommendation/Plan (S) Home with family PT Frequency 3-5x/wk Treatment/Interventions Endurance training;Gait training;Neuromuscular re- education;Therapeutic activity;Strengthening;Stair training PT Evaluation Complete Yes Multi-Disciplinary Problems (from Physical Therapy) Active Problems Problem: PT Misc Start Date: 10/29/21 Goal Start Date Expected End Date End Date Pt sit<->supine from flat bed, no rail w/ log roll technique IND 10/29/21 11/12/21 -- Goal Start Date Expected End Date End Date Pt perform car transfer IND maintaining spinal precautions 10/29/21 11/12/21 -- Goal Start Date Expected End Date End Date Pt ascend/descend steps to simulate home entry no UE support IND 10/29/21 11/12/21 -- Goal Start Date Expected End Date End Date Pt verbalize 3/3 spinal precautions and follows precautions 100% of time. 10/29/21 11/12/21 -- Education: Patient has been educated on the role of PT, safety , precautions, mobility training, and stairs. Education completed via explanation and demonstration. Patient demonstrated understanding Cosigned by La Trimble, PT at 11/01/2021 11:14 AM CDT * Kristine Young MD - 10/31/2021 9:49 AM CDT Infectious Disease Progress Note PATIENT NAME: Douglas Horn : 1950 ADMISSION DATE: 10/28/2021 HOSPITAL COURSE: T-max 36.9 T-cur 36.7 WBC 5,000 Up in his room with PT and OT this am. Minimal output form lumbar drain. Dressing changed and discussed with nursing. Photo taken on his phone. Blood and wound cultures with Serratia Ceftriaxone FLY is actually < 0.25. Discussed with Micro.Penicillins resistant. Spoke with [facility] and have obtained outpatient nursing for Thursday with possible discharge for Thursday. 10/30/2021 Back is a little better. Sitting up on the side of the bed. PT here to ambulate. Lumbar incision dressed with Hemoivac drain. No diarrhea. To OR for I&D lumbar wound last night and purulent material encountered deep to the spinal fusion. Spoke with Microbiology at referring emergency room and blood cultures were taken. Lab then called during the night with reported growth of a GNR, Operative cultures growing Serratia today. INTERIM HISTORY: Prior use of a PICC line for treating LRTI Multiple courses of inhaled Tobramycin 2021 for Bronchiectasis. History of L5-S1 decompression and diskectomy June 03, 2021. Status post L5-S1 interbody fusion October 11, 2021. I&D lumbar wound 10/29/2021 Blood cultures 10/28 +GNR Blood cultures 10/29 +GNR Incisional wound +Serratia. Vancomycin x2 Cefepime Review of Systems Constitutional: Positive for weight loss. Negative for fever. HENT: Negative for congestion. Respiratory: Negative for cough and shortness of breath. Cardiovascular: Negative for chest pain. Gastrointestinal: Negative for diarrhea. Genitourinary: Negative for dysuria. Musculoskeletal: Positive for back pain. Neurological: Positive for sensory change. Negative for focal weakness. Psychiatric/Behavioral: The patient is nervous/anxious. Medications: acetaminophen, 1,000 mg, oral, Q8H JESSENIA cefepime, 1,000 mg, intravenous, Q8H JESSENIA pantoprazole DR, 40 mg, oral, Daily lubricant, 1 drop, each eye, TID pregabalin, 150 mg, oral, Daily pregabalin, 300 mg, oral, Nightly rOPINIRole, 2 mg, oral, Nightly sodium chloride 0.9%, 0.5-20 mL, intra-catheter, Q8H JESSENIA vancomycin, 125 mg, oral, Q6H JESSENIA Vitals: 24hr Min/Max: Temp Min: 36.4 ??C (97.6 ??F) Max: 37 ??C (98.6 ??F) Pulse Min: 58 Max: 79 BP Min: 88/55 Max: 122/57 Resp Min: 16 Max: 18 SpO2 Min: 92 % Max: 98 % INTAKE/OUTPUT: I/O last 3 completed shifts: In: 100 [P.O.:100] Out: 910 [Urine:850; Drains:60] Physical Exam: Physical Exam Temperature: 36.7 General Appearance: Tall, slender. Stands without assistance. Head: Normocephalic Eyes: Conjunctiva/corneas clear Ears: Hearing grossly intact Nose: No drainage or sinus tenderness Throat: Lips, mucosa, and tongue normal Neck: Symmetric Back: Lumbar incision dressed. Lungs: Clear to auscultation bilaterally, RR 16 Cardiovascular: Regular S1 and S2, no murmur, HR 74 Abdomen: Soft, non-tender, no organomegaly Extremities: No cyanosis or edema Skin: No rashes, lesions or bruising Lymph nodes: No adenopathy Neurologic: Peripheral neuropathy\ Psychosocial: Normal affect and mood Lab/Radiology/Diagnostic Review: RECENT LABS Recent Labs Lab Units 10/31/21 0500 10/30/21 0910 10/29/21 0032 WBC K/cumm 5.0 9.4 14.0* HEMOGLOBIN g/dL 8.9* 10.1* 10.0* HEMATOCRIT % 28.1* 30.5* 30.0* PLATELETS K/cumm 323 323 316 Recent Labs Lab Units 10/31/21 0500 10/30/21 0910 10/29/21 0032 SODIUM mmol/L 131* 133* 130* POTASSIUM PLASMA mmol/L 4.2 3.9 4.2 CHLORIDE mmol/L 98 97 98 CO2 mmol/L 26 27 23 BUN SERUM mg/dL 11 10 10 CREATININE mg/dL 0.89 0.81 0.89 DLO-TFE-LEPSMIY mL/min/1.73 m2 92 95 92 GLUCOSE mg/dL 105 124 103 CALCIUM mg/dL 8.3* 8.5 8.1* ALBUMIN g/dL -- -- 3.0* PHOSPHORUS PLASMA mg/dL -- -- 2.8 Recent Labs Lab Units 10/29/21 0032 ALK PHOS Units/L 83 BILIRUBIN TOTAL mg/dL 0.6 TOTAL PROTEIN g/dL 5.6* ALT Units/L 34 AST Units/L 32 IMPRESSIONS: 1. Surgical site infection of the lumbar spine anticipating I and D this afternoon. Patient developed increasing back pain, fever, and incisional drainage over the weekend. 2. Status post L5-S1 interbody fusion October 11, 2021. 3. History of L5-S1 decompression and diskectomy June 03, 2021. 4. 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 5. History of bronchiectasis and Pseudomonas colonization. 6. SIADH. 7. Peripheral neuropathy. 8. 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 9. Gastroesophageal reflux disease. 10. A 30 pound weight loss in the last 9 months. PLAN: 1. Continue Cefepime and will discus further with Micro. 2. Maintain on once daily Vancomycin PO. 3. [facility] can provide nursing on Thursday. 4. PICC line at discharge. 5. Patient with many questions. Time spent: 36 minutes. Kristine Young MD 8:01 PM 10/31/2021 * Bernarda Childs, [employer] - 10/30/2021 4:00 PM CDT Daily Progress Subjective Chief complaint of Back pain Interval History: POD 1 I&D Lumbar incision with cultures Review of Systems Objective Vitals: 24hr Min/Max: Temp Min: 36.3 ??C (97.3 ??F) Max: 37.6 ??C (99.7 ??F) Pulse Min: 62 Max: 88 BP Min: 92/53 Max: 131/81 Resp Min: 13 Max: 25 SpO2 Min: 94 % Max: 100 % Most Recent : Vitals: 10/30/21 1533 BP: 92/53 Pulse: 88 Resp: 16 Temp: 36.9 ??C (98.4 ??F) SpO2: 96% I/O last 2 completed shifts: In: 1725.8 [I.V.:1350.8; IV Piggyback:375] Out: 1640 [Urine:1450; Drains:90; Blood:100] I/O this shift: In: - Out: 350 [Urine:350] Physical Exam Constitutional: Appearance: Normal appearance. HENT: Head: Normocephalic. Nose: Nose normal. Mouth/Throat: Mouth: Mucous membranes are moist. Eyes: Pupils: Pupils are equal, round, and reactive to light. Cardiovascular: Rate and Rhythm: Normal rate. Pulses: Normal pulses. Pulmonary: Effort: Pulmonary effort is normal. Abdominal: General: Bowel sounds are normal. Palpations: Abdomen is soft. Comments: Last BM yesterday Genitourinary: Comments: Voiding without difficulty Musculoskeletal: General: Normal range of motion. Cervical back: Normal range of motion. Skin: Comments: Lumbar dressing clean and dry, drain secure Neurological: General: No focal deficit present. Mental Status: He is alert. Comments: Motor power 5/5 BLE Psychiatric: Mood and Affect: Mood normal. Lab/Radiology/Diagnostic Review: Laboratory review: Lab results in the last 24 hours: Recent Results (from the past 24 hour(s)) Aerobic and anaerobic culture and gram stain Wound Back, lower Collection Time: 10/29/21 7:03 PM Specimen: Back, lower; Wound Result Value Ref Range Direct Specimen Exam Stain: Many polymorphonuclear leukocytes seen. No organisms seen. Report (.) Preliminary Report: Light growth of: Serratia marcescens Organism SERRATIA MARCESCENS Aerobic and anaerobic culture and gram stain Wound Back, lower Collection Time: 10/29/21 7:03 PM Specimen: Back, lower; Wound Result Value Ref Range Direct Specimen Exam Stain: Moderate polymorphonuclear leukocytes seen. No organisms seen. Report (.) Preliminary Report: Light growth of: Serratia marcescens Organism SERRATIA MARCESCENS CBC with auto differential Collection Time: 10/30/21 9:10 AM Result Value Ref Range WBC 9.4 3.8 - 9.9 K/cumm Hgb 10.1 (L) 13.0 - 17.5 g/dL Hct 30.5 (L) 38.9 - 50.3 % Plt 323 150 - 400 K/cumm MPV 8.4 (L) 9.1 - 12.3 fL RBC 3.39 (L) 4.30 - 5.80 M/cumm MCV 90.0 81.3 - 96.4 fL MCH 29.8 27.1 - 33.3 pg MCHC 33.1 32.3 - 35.7 g/dL RDW CV 13.1 11.1 - 14.9 % RDW SD 43.0 35.7 - 48.1 fL NRBC abs 0.00 0.00 - 0.01 K/cumm Basic metabolic panel Collection Time: 10/30/21 9:10 AM Result Value Ref Range Sodium 133 (L) 135 - 145 mmol/L Potassium, pl 3.9 3.3 - 4.9 mmol/L Chloride 97 97 - 110 mmol/L CO2 27 22 - 32 mmol/L Anion gap 9 2 - 15 mmol/L BUN 10 8 - 25 mg/dL Creatinine 0.81 0.80 - 1.30 mg/dL Glucose 124 70 - 199 mg/dL Calcium 8.5 8.5 - 10.3 mg/dL Differential, auto Collection Time: 10/30/21 9:10 AM Result Value Ref Range Neutrophil abs 8.0 (H) 1.7 - 6.5 K/cumm Imm gran abs 0.0 0.0 - 0.1 K/cumm Lymphocyte abs 0.5 (L) 0.8 - 3.3 K/cumm Monocyte abs 0.8 0.2 - 0.8 K/cumm Eosinophil abs 0.0 0.0 - 0.5 K/cumm Basophil abs 0.0 0.0 - 0.1 K/cumm Neutrophil pct 85.6 % Imm gran pct 0.3 % Lymphocyte pct 5.7 % Monocyte pct 8.3 % Eosinophil pct 0.0 % Basophil pct 0.1 % eGFR Collection Time: 10/30/21 9:10 AM Result Value Ref Range eGFR 95 mL/min/1.73 m2 Assessment/Plan Principal Problem: Severe sepsis (HCC) Active Problems: Lumbar stenosis without neurogenic claudication Infection of lumbar spine (CMS/HCC) (HCC) Infection following a procedure, deep incisional surgical site, initial encounter History of Clostridium difficile colitis GERD without esophagitis Hyponatremia SIADH (syndrome of inappropriate ADH production) (CMS/HCC) (HCC) Continue hemovac drain Ambulate frequently Antibiotics per infectious disease * Carmita Waters, OT - 10/30/2021 2:56 PM CDT Occupational Therapy 10/30/21 1121 General Session Type Treatment OT Received On 10/30/21 Safe Environment Arm Band Checked;Notified RN;Call Light within Reach Subjective Agreeable to Therapy Family/Caregiver Present No Precautions Precautions Fall risk;Bed/Chair Alarm;Spinal/Back Precaution Comments Pt able to verbalize 3/3 spinal precautions LE Dressing LE Dressing: Where assessed Sitting;Edge of bed LE Dressing: Level of assistance Standby Assist LE Dressing: Assistance with Thread RLE into pants;Thread LLE into pants;Don/doff R shoe;Don/doff Lshoe;Pull up over hips;Supervision/safety;Requires assistive device for steadying LE Dressing: Equipment Utilized Family Law Mediator Pain Assessment Pain Assessment 0-10 Pain Score 5 - Moderate pain Clinical Progression Not changed Activity Tolerance Endurance Tolerates 30 min activity with multiple rests Activity Tolerance Comments VSS Cognition Overall Cognitive Status WFL Arousal/Alertness Alert Attention Span Appears intact Memory Appears intact Current communication Appears Intact Orientation Oriented X4 (person, place, time, situation) Following Commands Follows all commands and directions without difficulty Safety Judgment Good awareness of safety precautions Awareness of Errors Assistance required to identify errors made;Assistance required to correct errors made Insight Fully aware of deficits Problem Solving Able to problem solve independently Compliance/Behavior Easy to engage Balance Balance Yes Static Sitting Balance Static Sitting-Balance Support Feet supported Static Sitting-Sitting Surface Bed Static Sitting-Level of Assistance Independent Dynamic Sitting Balance Dynamic Sitting-Balance Support Feet supported Dynamic Sitting-Balance Lateral lean Dynamic Sitting-Sitting Surface Bed Dynamic Sitting-Level of Assistance Close supervision Static Standing Balance Static Standing-Balance Support Bilateral upper extremity supported Static Standing-Standing Surface Floor Static Standing-Level of Assistance Close supervision Dynamic Standing Balance Dynamic Standing-Balance Support Bilateral upper extremity supported Dynamic Standing-Standing Surface Floor Dynamic Standing-Level of Assistance Contact guard Bed Mobility 1 Bed Mobility Comments 1 sup>sit EOB SBA with use of bed rails for support Transfer 1 Trials/Comments 1 sit<>stand EOB with CGA for safety.pt requests to use w/w for additinal support this date. Pt completes functional mobility to door of room. Session ended early as pt had to meet with MD Assessment Prognosis Good Problem List Decreased endurance;Decreased balance;Decreased functional mobility;Decreased ADL independence;Decreased IADL independence;Pain Barriers to Discharge Current Mobility Status Plan Plan Continue with current plan;If this is the last note, consider this the discharge summary Recommendation/Plan OT Recommendation Home with family OT Frequency 3-5x/wk Treatment/Interventions ADL/IADL retraining;Balance Training;Cognitive retraining;Endurance training;Functional activity;Functional mobility training;Functional transfer training;Strengthening;Therapeutic activity;Therapeutic exercise;Transfer training Progress Progressing toward goals Multi-Disciplinary Problems (from Occupational Therapy) Active Problems Problem: OT Misc Start Date: 10/29/21 Goal Start Date Expected End Date End Date Pt will complete LB dressing with modified independence with use of AE, PRN while maintaining spinal precautions 10/29/21 11/05/21 -- Goal Start Date Expected End Date End Date Pt will perform toileting tasks, including perineal care and clothing management with modified independence while maintaining spinal precautions 10/29/21 11/05/21 -- Goal Start Date Expected End Date End Date Pt will complete all functional transfer with modified independence with use of WW with good safety. 10/29/21 11/05/21 -- Goal Start Date Expected End Date End Date Pt will complete item retrieval with modified independence with good awareness and standing balanceand maintaining spinal precautions 10/29/21 11/05/21 -- Education: Patient has been educated on the role of OT, safety, precautions, ADL training, mobilitytraining, home exercise program, body mechanics, energy conservation, and use of adaptive equipment/DME. Education completed via verbal instruction. Patient verbalized understanding and needs ongoingreinforcement * Juliocesar Calix MD - 10/30/2021 1:45 PM CDT General Medicine Daily Progress Admit date: 10/28/2021 10:28 PM Reason for visit/follow up Chief Complaint: Back pain New Symptoms Patient denies chest pain, shortness of breath, abdominal pain, nausea, vomiting, diarrhea, constipation, urinary problems or leg pain. Back pain is controlled with PO roxicodone. Discussed with Dr Sheets, and Dr Gamez. +Purulent drainage both above and below the fascia intraop finding. Start on IV cefepime and vanco. Blood cx from [facility] positive for GN bacteria. Data Vitals: 24hr Min/Max: Temp Min: 36.3 ??C (97.3 ??F) Max: 37.6 ??C (99.7 ??F) Pulse Min: 62 Max: 84 BP Min: 99/54 Max: 131/81 Resp Min: 13 Max: 25 SpO2 Min: 94 % Max: 100 % Most Recent : Vitals: 10/30/21 1207 BP: 99/54 Pulse: 81 Resp: Temp: 36.7 ??C (98.1 ??F) SpO2: I/O last 2 completed shifts: In: 1725.8 [I.V.:1350.8; IV Piggyback:375] Out: 1640 [Urine:1450; Drains:90; Blood:100] I/O this shift: In: - Out: 350 [Urine:350] Lab/Radiology/Diagnostic Review: Recent Labs Lab Units 10/30/21 0910 10/29/21 0032 SODIUM mmol/L 133* 130* POTASSIUM PLASMA mmol/L 3.9 4.2 CHLORIDE mmol/L 97 98 CO2 mmol/L 27 23 BUN SERUM mg/dL 10 10 CREATININE mg/dL 0.81 0.89 GLUCOSE mg/dL 124 103 CALCIUM mg/dL 8.5 8.1* Recent Labs Lab Units 10/30/21 0910 10/29/21 0032 WBC K/cumm 9.4 14.0* HEMOGLOBIN g/dL 10.1* 10.0* HEMATOCRIT % 30.5* 30.0* PLATELETS K/cumm 323 316 Physical Exam: General appearance: alert, cooperative, no distress, oriented to person, place, and time Lungs: breath sounds normal and symmetric; no rales or wheezes Heart: regular rhythm, normal S1 and S2, without murmurs, gallops or rubs Abdomen: soft without mass, non-tender, with normal bowel sounds Extremities: no clubbing, cyanosis or edema Head: Normocephalic, without trauma Eyes: sclera and conjunctiva clear, EOMI and PERRLA, lids normal Nose: nares open; no septal deviation is noted Joints: ranges of motion normal without inflammation, effusion or deformity Skin: no rashes or other abnormalities are noted Neurologic: mental status normal; alert and oriented X 3; cranial nerves II - XII are grossly intact Scheduled Medications: acetaminophen, 1,000 mg, oral, Q8H JESSENIA budesonide-formoteroL, 2 puff, inhalation, BID (RT) cefepime, 1,000 mg, intravenous, Q8H JESSENIA pantoprazole DR, 40 mg, oral, Daily lubricant, 1 drop, each eye, TID pregabalin, 150 mg, oral, Daily pregabalin, 300 mg, oral, Nightly rOPINIRole, 2 mg, oral, Nightly sodium chloride 0.9%, 0.5-20 mL, intra-catheter, Q8H JESSENIA vancomycin, 125 mg, oral, Q6H JESSENIA vancomycin, 1,250 mg, intravenous, Q12H PRN Medications: ??? bisacodyL ??? bisacodyl EC ??? morphine ??? ondansetron ODT OR ondansetron ??? oxyCODONE ??? oxyCODONE ??? polyethylene glycol ??? ramelteon ??? sodium chloride 0.9% ??? tiZANidine Assessment and plan Principal Problem: Severe sepsis ([facility]) Active Problems: Lumbar stenosis without neurogenic claudication Infection of lumbar spine (CMS/[facility]) ([facility]) Infection following a procedure, deep incisional surgical site, initial encounter History of Clostridium difficile colitis GERD without esophagitis Hyponatremia SIADH (syndrome of inappropriate ADH production) (CMS/HCC) ([facility]) Severe sepsis Post op lumbar spine abscess Lumbar radiculopathy status post posterior lumbar decompression and spinal fusion 10/11/2021 Bacteremia -s/p I+D 10/29, on cefepime and vanco -follow wound cx -follow blood cx -pain control -PT/OT History of recurrent C diff infection -PO vanco Hyponatremia due to SIADH Trend Na ?? GERD without known esophagitis Continue PPI . ?? Code status: Full Code ?? Goals for discharge / anticipated LOS: Anticipate admission > 2 midnights for management of suspected severe sepsis, SSI ?? Medical complexity / risk: High * Kristine Young MD - 10/30/2021 10:18 AM CDT Infectious Disease Progress Note PATIENT NAME: Douglas Horn : 1950 ADMISSION DATE: 10/28/2021 HOSPITAL COURSE: T-max 37.6 T-cur 36.7 Back is a little better. Sitting up on the side of the bed. PT here to ambulate. Lumbar incision dressed with Hemoivac drain. No diarrhea. To OR for I&D lumbar wound last night and purulent material encountered deep to the spinal fusion. Spoke with Microbiology at referring emergency room and blood cultures were taken. Lab then called during the night with reported growth of a GNR, Operative cultures growing Serratia today. INTERIM HISTORY: Prior use of a PICC line for treating LRTI Multiple courses of inhaled Tobramycin 2021 for Bronchiectasis. History of L5-S1 decompression and diskectomy June 03, 2021. Status post L5-S1 interbody fusion October 11, 2021. I&D lumbar wound 10/29/2021 Blood cultures 10/28 +GNR Blood cultures 10/29 +GNR Incisional wound +Serratia. Vancomycin x2 Cefepime Review of Systems Constitutional: Positive for chills, fever and weight loss. HENT: Negative for congestion and sore throat. Respiratory: Negative for cough and shortness of breath. Cardiovascular: Negative for chest pain. Gastrointestinal: Positive for diarrhea. Genitourinary: Negative for dysuria. Musculoskeletal: Positive for back pain. Neurological: Positive for sensory change. Negative for focal weakness. Psychiatric/Behavioral: The patient is nervous/anxious. Medications: acetaminophen, 1,000 mg, oral, Q8H JESSENIA budesonide-formoteroL, 2 puff, inhalation, BID (RT) cefepime, 1,000 mg, intravenous, Q8H JESSENIA pantoprazole DR, 40 mg, oral, Daily lubricant, 1 drop, each eye, TID pregabalin, 150 mg, oral, Daily pregabalin, 300 mg, oral, Nightly rOPINIRole, 2 mg, oral, Nightly sodium chloride 0.9%, 0.5-20 mL, intra-catheter, Q8H JESSENIA vancomycin, 125 mg, oral, Q6H JESSENIA vancomycin, 1,250 mg, intravenous, Q12H Vitals: 24hr Min/Max: Temp Min: 36.3 ??C (97.3 ??F) Max: 37.6 ??C (99.7 ??F) Pulse Min: 62 Max: 84 BP Min: 99/54 Max: 131/81 Resp Min: 13 Max: 25 SpO2 Min: 94 % Max: 100 % INTAKE/OUTPUT: I/O last 3 completed shifts: In: 1925.8 [P.O.:200; I.V.:1350.8; IV Piggyback:375] Out: 0 [Urine:2030; Drains:90; Blood:100] Physical Exam: Physical Exam Temperature: 36.7 General Appearance: Tall, slender. Stands without assistance. Head: Normocephalic Eyes: Conjunctiva/corneas clear Ears: Hearing grossly intact Nose: No drainage or sinus tenderness Throat: Lips, mucosa, and tongue normal Neck: Symmetric Back: Lumbar incision dressed. Lungs: Clear to auscultation bilaterally, RR 19 Cardiovascular: Regular S1 and S2, no murmur, HR 78 Abdomen: Soft, non-tender, no organomegaly Extremities: No cyanosis or edema Skin: No rashes, lesions or bruising Lymph nodes: No adenopathy Neurologic: Peripheral neuropathy\ Psychosocial: Normal affect and mood Lab/Radiology/Diagnostic Review: RECENT LABS Recent Labs Lab Units 10/30/21 0910 10/29/21 0032 WBC K/cumm 9.4 14.0* HEMOGLOBIN g/dL 10.1* 10.0* HEMATOCRIT % 30.5* 30.0* PLATELETS K/cumm 323 316 Recent Labs Lab Units 10/30/21 0910 10/29/21 0032 SODIUM mmol/L 133* 130* POTASSIUM PLASMA mmol/L 3.9 4.2 CHLORIDE mmol/L 97 98 CO2 mmol/L 27 23 BUN SERUM mg/dL 10 10 CREATININE mg/dL 0.81 0.89 [id number] mL/min/1.73 m2 95 92 GLUCOSE mg/dL 124 103 CALCIUM mg/dL 8.5 8.1* ALBUMIN g/dL -- 3.0* PHOSPHORUS PLASMA mg/dL -- 2.8 Recent Labs Lab Units 10/29/21 0032 ALK PHOS Units/L 83 BILIRUBIN TOTAL mg/dL 0.6 TOTAL PROTEIN g/dL 5.6* ALT Units/L 34 AST Units/L 32 IMPRESSIONS: 1. Surgical site infection of the lumbar spine anticipating I and D this afternoon. Patient developed increasing back pain, fever, and incisional drainage over the weekend. 2. Status post L5-S1 interbody fusion October 11, 2021. 3. History of L5-S1 decompression and diskectomy June 03, 2021. 4. 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 5. History of bronchiectasis and Pseudomonas colonization. 6. SIADH. 7. Peripheral neuropathy. 8. 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 9. Gastroesophageal reflux disease. 10. A 30 pound weight loss in the last 9 months. PLAN: 1. Blood cultures repeated. 2. Continue Cefepime and discontinue Vancomycin. 3. Likely to stay thru the weekend. 4. PICC line at discharge. 5. Will speak with [facility]. Time spent: 44 minutes. Kristine Young MD 3:08 PM 10/30/2021 * La Trimble, PT - 10/29/2021 4:04 PM CDT Physical Therapy Evaluation 10/29/21 1549 General Chart Reviewed Yes Session Type Evaluation PT Received On 10/29/21 Safe Environment Arm Band Checked;Call Light within Reach Subjective Agreeable to Therapy Additional Pertinent History Pt admitted from [facility] w/ severe sepsis from spinal infection. Pt underwent L5-S1 sx 10/11 w/ stitches removed 10/21. Pt started having back pain and chills. Pthas PMHx of GERD, asthma, peripheral neuropathy, and colitis. Family/Caregiver Present Yes () Physical Therapy-Patient Goal Return home Precautions Precautions Fall risk;Spinal/Back Home Living Type of Home House Home Layout One level Home Access Stairs to enter without rails Entrance Stairs-Rails None Entrance Stairs-Number of Steps 1+1+1 Bathroom Shower/Tub Walk-in shower with threshold Home Mobility Equipment None Home ADL Equipment Family Law Mediator;Sock aid;Long-handled shoehorn Prior Function Level of Russell Independent with ADLs;Independent functional transfers;Independent with homemaking with ambulation Lives With Spouse Receives Help From Spouse/Significant other Driving Yes ADL Assistance Independent Instrumental ADL (IADL) Assistance Independent Vocational/Occupation Retired Cognition Arousal/Alertness Alert Following Commands Follows all commands and directions without difficulty Compliance/Behavior Easy to engage Static Sitting Balance Static Sitting-Balance Support Feet unsupported Static Sitting-Sitting Surface Bed Static Sitting-Level of Assistance Independent Static Standing Balance Static Standing-Balance Support No upper extremity supported Static Standing-Standing Surface Floor Static Standing-Level of Assistance Close supervision Bed Mobility 1 Bed Mobility Comments 1 Pt sit to supine SBA w/ raised HOB. Pt verbalizes log roll technique however uses raised HOB to complete Transfer 1 Trials/Comments 1 Pt sit<->stand SBA from bed, chair and toilet SBA, pt maintains spinal precautions. Ambulation 1 Distance (ft) 1 300' Surface 1 Level tile Device 1 No device Assistance 1 Standby Assist;Independent Gait: Requires verbal cues to 1 Pace activity Quality of Gait 1 steady, equal and full stride length, upright posture RLE Assessment RLE Assessment WFL LLE Assessment LLE Assessment WFL Other Comments Other PT Comments Pt awaiting surgery for I&D of spine. Will continue to assess pt mobility following sx. Plan Plan Continue with current plan;If this is the last note, consider this the discharge summary Recommendation/Plan PT Recommendation/Plan Home with family PT Frequency 3-5x/wk Treatment/Interventions Bed mobility;Functional transfer training;Gait training;Functional activity PT Evaluation Complete Yes Education: Patient has been educated on the role of PT, safety , precautions, and mobility training. Education completed via explanation. Patient verbalized understanding Multi-Disciplinary Problems (from Physical Therapy) Active Problems Problem: PT Misc Start Date: 10/29/21 Goal Start Date Expected End Date End Date Pt sit<->supine from flat bed, no rail w/ log roll technique IND 10/29/21 11/12/21 -- Goal Start Date Expected End Date End Date Pt perform car transfer IND maintaining spinal precautions 10/29/21 11/12/21 -- Goal Start Date Expected End Date End Date Pt ascend/descend steps to simulate home entry no UE support IND 10/29/21 11/12/21 -- Goal Start Date Expected End Date End Date Pt verbalize 3/3 spinal precautions and follows precautions 100% of time. 10/29/21 11/12/21 -- * Juliocesar Calix MD - 10/29/2021 12:14 PM CDT General Medicine Daily Progress Admit date: 10/28/2021 10:28 PM Reason for visit/follow up Chief Complaint: Back pain New Symptoms Patient denies chest pain, shortness of breath, abdominal pain, nausea, vomiting, diarrhea, constipation, urinary problems or leg pain. Data Vitals: 24hr Min/Max: Temp Min: 36.7 ??C (98.1 ??F) Max: 38.4 ??C (101.2 ??F) Pulse Min: 65 Max: 95 BP Min: 89/46 Max: 133/63 Resp Min: 16 Max: 18 SpO2 Min: 92 % Max: 100 % Most Recent : Vitals: 10/29/21 0915 BP: 103/61 Pulse: 73 Resp: Temp: SpO2: I/O last 2 completed shifts: In: 200 [P.O.:200] Out: 580 [Urine:580] I/O this shift: In: - Out: 300 [Urine:300] Lab/Radiology/Diagnostic Review: Recent Labs Lab Units 10/29/21 0032 SODIUM mmol/L 130* POTASSIUM PLASMA mmol/L 4.2 CHLORIDE mmol/L 98 CO2 mmol/L 23 BUN SERUM mg/dL 10 CREATININE mg/dL 0.89 GLUCOSE mg/dL 103 CALCIUM mg/dL 8.1* Recent Labs Lab Units 10/29/21 0032 WBC K/cumm 14.0* HEMOGLOBIN g/dL 10.0* HEMATOCRIT % 30.0* PLATELETS K/cumm 316 Physical Exam: General appearance: alert, cooperative, no distress, oriented to person, place, and time Lungs: breath sounds normal and symmetric; no rales or wheezes Heart: regular rhythm, normal S1 and S2, without murmurs, gallops or rubs Abdomen: soft without mass, non-tender, with normal bowel sounds Extremities: no clubbing, cyanosis or edema Head: Normocephalic, without trauma Eyes: sclera and conjunctiva clear, EOMI and PERRLA, lids normal Nose: nares open; no septal deviation is noted Joints: ranges of motion normal without inflammation, effusion or deformity Skin: no rashes or other abnormalities are noted Neurologic: mental status normal; alert and oriented X 3; cranial nerves II - XII are grossly intact Scheduled Medications: sodium chloride 0.9%, 0.5-20 mL, intra-catheter, Q8H JESSENIA PRN Medications: ??? acetaminophen OR acetaminophen OR acetaminophen ??? bisacodyL ??? bisacodyl EC ??? sodium chloride 0.9% ??? morphine ??? ondansetron ODT OR ondansetron ??? oxyCODONE ??? polyethylene glycol ??? sodium chloride 0.9% Assessment and plan Principal Problem: Severe sepsis (HCC) Active Problems: Lumbar stenosis without neurogenic claudication Infection of lumbar spine (CMS/HCC) (HCC) Infection following a procedure, deep incisional surgical site, initial encounter History of Clostridium difficile colitis GERD without esophagitis Hyponatremia SIADH (syndrome of inappropriate ADH production) (CMS/HCC) (HCC) Suspected severe sepsis (WBC>12, HR>90, reported fever, initial hypotension) Severe low back pain at surgical site Lumbar radiculopathy status post posterior lumbar decompression and spinal fusion -plan for surgery today -hold antibiotic -ID consult ?? Hyponatremia due to SIADH Trend Na ?? History of C diff infection ?? GERD without known esophagitis Continue PPI . ?? Code status: Full Code ?? Goals for discharge / anticipated LOS: Anticipate admission > 2 midnights for management of suspected severe sepsis, SSI ?? Medical complexity / risk: High * Selene Martini OT - 10/29/2021 8:37 AM CDT Occupational Therapy Evaluation 10/29/21 0837 General Chart Reviewed Yes Session Type Evaluation OT Received On 10/29/21 Safe Environment Arm Band Checked;Call Light within Reach;Chair Alarm placed and activated;NotifiedRN Subjective Agreeable to Therapy Additional Pertinent History 71 year old male who presents with fever and back pain. At [facility], his exam reportedly was notable for pratima pus draining from the surgical site. There was also noted to his sense of the wound. He was initially hypotensive, had a sodium 128 (with a history ofSIADH), white blood cell count 14.8. He was tachycardic and recently had a fever. Antibiotics were not started. He had a chest x-ray which was clear. Sepsis lactate was within normal limits. Blood cultures were reportedly obtained. His primary surgeon Dr. Granger was contacted he is currently in [place]. Dr. Sheets was contacted via the transfer center and agreed with transfer to [facility]. He reports he had his stitches removed after surgery on 10/21/2021. PMH includes SIADH, history of C diff colitis with 3 recurrences, history of lumbar limb radiculopathy status post posterior lateral arthrodesis and anterior interbody fusion L5-S1, posterior nonsegmental instrumentation, L5 wide bilateral lumbar laminectomy, facetectomy, foraminotomy for decompression with re-exploration and decompression right L5-S1, placement of an 11 mm 12 degree interbody device, use of morselized autograft with bone densitometer reader, bone marrow aspirate with left iliac crest through a separate incision with Dr. Granger Family/Caregiver Present No Occupational Therapy-Patient Goal return home Precautions Precautions Fall risk;Bed/Chair Alarm;Spinal/Back Precaution Comments Pt able to verbalize 3/3 spinal precautions this date Home Living Type of Home House Home Layout One level;Performs ADLs on one level Home Access Stairs to enter without rails Entrance Stairs-Rails None Entrance Stairs-Number of Steps 1+1+1 Bathroom Shower/Tub Walk-in shower with threshold Bathroom Toilet Raised (vanity on R side) Bathroom Equipment Grab bars in shower/tub;Built-in shower seat Home Mobility Equipment (WALKING STICK) Home ADL Equipment Family Law Mediator;Sock aid;Long-handled shoehorn Additional Comments Pt states that he does not use AE for mobiltiy. Pt states that he uses AE for LB dresing Prior Function Level of Russell Independent with ADLs;Independent functional transfers;Independent with ambulation Lives With Spouse Receives Help From Spouse/Significant other Driving Yes ADL Assistance Independent Instrumental ADL (IADL) Assistance Independent Vocational/Occupation Retired Fall within the last 6 months No Grooming Grooming: Where assessed Standing at sink Grooming: Level of assistance Standby Assist Grooming: Assistance with Teeth care LE Dressing LE Dressing: Where assessed Sitting;Edge of bed LE Dressing: Level of assistance Standby Assist LE Dressing: Assistance with Don/doff R sock;Don/doff L sock LE Dressing: Equipment Utilized Sock aid Pain Assessment Pain Assessment 0-10 Pain Score 5 - Moderate pain Pain Type Acute pain Pain Location Back (Lumbar) Clinical Progression Not changed Pain Interventions Repositioned;RN Notified;Rest Activity Tolerance Endurance Tolerates 30 min activity with multiple rests Activity Tolerance Comments Pre activity vitals: 98% on RA, 66 bpm, 91/48 (supine), 101/63 (sitting), 87/58(standing) no c/o dizziness. Pt with BP at 101/72 at end of session. Pt limited due to pain this date Cognition Overall Cognitive Status WFL Arousal/Alertness Alert;Appropriate responses to stimuli Attention Span Appears intact Memory Appears intact Current communication Appears Intact Orientation Oriented X4 (person, place, time, situation) Following Commands Follows all commands and directions without difficulty Safety Judgment Good awareness of safety precautions Awareness of Errors Assistance required to identify errors made Insight Fully aware of deficits Problem Solving Able to problem solve independently Compliance/Behavior Easy to engage Perseveration Not present Static Sitting Balance Static Sitting-Balance Support Feet supported Static Sitting-Sitting Surface Bed Static Sitting-Level of Assistance Independent Static Standing Balance Static Standing-Balance Support No upper extremity supported;Unilateral upper extremity supported Static Standing-Standing Surface Floor Static Standing-Level of Assistance Close supervision Static Standing-Comment/# of Minutes Pt able to stand at sink for 3 minutes with grooming activity thi sdate Bed Mobility 1 Bed Mobility From 1 Supine Bed Mobility Type 1 To Bed Mobility to 1 Edge of bed Level of Assistance 1 Contact Guard Assist Bed Mobility Comments 1 Increased time to complete with log rolling technique this date. Transfer 1 Transfer From 1 Sit Transfer Type 1 To and from Transfer to 1 Stand Technique 1 Sit to stand;Stand to sit Transfer Device 1 Wheeled walker Transfer Level of Assistance 1 Standby Assist RUE Assessment RUE Assessment WFL LUE Assessment LUE Assessment WFL OT Treatment/Exercise Comments OT Treatment/Exercise Comments Pt completed functional mobility with WW 150' with SBA this date. Simulating home mobiltiy for increased independence and safety with ADLs. Other Comments Comments Pt able to complete LB dressing with use of sock aid while maintaining spinal precautions.Pt limited iwth ADLs due to increased pain this date. Pt in chair to end session with call light within reach, chair alarm activated, and all needs met. Assessment Prognosis Good Problem List Decreased endurance;Decreased ADL independence;Decreased IADL independence;Decreased functional mobility;Decreased balance;Pain Plan Plan Plan of care initiated;If this is the last note, consider this the discharge summary Recommendation/Plan OT Recommendation (S) Home with family OT Frequency 3-5x/wk Treatment/Interventions ADL/IADL retraining;Balance Training;Bed mobility;Endurance training;Functional activity;Functional mobility training;Functional transfer training Progress Progressing toward goals OT Evaluation Complete Yes Education: Patient has been educated on the role of OT, safety, precautions, ADL training, mobilitytraining, and use of adaptive equipment/DME. Education completed via verbal instruction, return demonstration, and handouts. Patient verbalized understanding, demonstrated understanding, and needs ongoing reinforcement Multi-Disciplinary Problems (from Occupational Therapy) Active Problems Problem: OT Misc Start Date: 10/29/21 Goal Start Date Expected End Date End Date Pt will complete LB dressing with modified independence with use of AE, PRN while maintaining spinal precautions 10/29/21 11/05/21 -- Goal Start Date Expected End Date End Date Pt will perform toileting tasks, including perineal care and clothing management with modified independence while maintaining spinal precautions 10/29/21 11/05/21 -- Goal Start Date Expected End Date End Date Pt will complete all functional transfer with modified independence with use of WW with good safety. 10/29/21 11/05/21 -- Goal Start Date Expected End Date End Date Pt will complete item retrieval with modified independence with good awareness and standing balanceand maintaining spinal precautions 10/29/21 11/05/21 -- * Robby Alcantar [facility] - 10/29/2021 12:15 AM CDT Pharmacokinetic Consult - Vancomycin Dosing Day 1 Douglas Horn is a 71 y.o. male who has been consulted for vancomycin dosing for skin/soft tissueinfection and sepsis. Relevant clinical data and objective history reviewed: No results found for: CREATININE, BUNSER CrCl cannot be calculated (No successful lab value found.). No intake/output data recorded. Lab Results Component Value Date/Time WBC 4.7 10/02/2021 11:41 AM HGB 13.0 10/02/2021 11:41 AM HCT 39.6 10/02/2021 11:41 AM MCV 89.4 10/02/2021 11:41 AM LABPLAT 253 10/02/2021 11:41 AM Temp Readings from Last 3 Encounters: 10/28/21 36.7 ??C (98.1 ??F) (Oral) 10/21/21 36.6 ??C (97.9 ??F) 10/12/21 36.8 ??C (98.2 ??F) (Oral) Wt Readings from Last 1 Encounters: 10/28/21 80.4 kg (177 lb 4 oz) Assessment/Plan The patient will be started on vancomycin utilizing scheduled dosing based on actual body weight. Baseline risks associated with therapy include: advanced age. Will initiate dose at 1250 mg IV every 12 hours. Pharmacy will also follow closely for s/sx of nephrotoxicity. Serum creatinine will be ordered per policy. Plan for trough as patient approaches steady state, prior to the 4th dose. Due to infection severity, will target a trough of 15-20 ug/mL. Pharmacy will continue to follow the patient???s culture results and clinical progress daily. Vancomycin will be dose adjusted based on the following pharmacy dosing guidelines: Vancomycin Dose: Total Body weight Dose < 40 kg 500 mg 41 - 49 kg 750 mg 50 - 74 kg 1000 mg 75 - 89 kg 1250 mg 90 - 109 kg 1500 mg 110 - 119 kg 1750 mg > 120 kg 2000 mg Initial regimen not to exceed 4000 mg/day Vancomycin Interval: CrCl (mL/min) Dosing Interval > 60 Every 12 hours 30 - 59 Every 24 hours 20 - 29 Every 48 hours < 20 Intermittent dosing Hemodialysis Intermittent dosing Peritoneal Dialysis Intermittent dosing CVVHD Every 24 hours Every 8 hour dosing may be considered for patients with CrCl > 90 mL/min Consider periodic trough levels (every 4-7 days) in patients receiving longer courses of therapy (greater than 5 days) to ensure adequate but not excessive concentrations: target between 10-20 mcg/mL Obtaining a SCr at least once weekly is recommended (more often with concomitant nephrotoxins). More frequent monitoring may be warranted. Hemodialysis patients should have serum drug concentrations measured every 3-7 days to determine time of next dose. Daily random drug levels are not warranted. Doses may be adjusted based on laboratory results and the pharmacokinetic and pharmacodynamic principles of the medication and the patient to attain target concentrations. *Consider initiating treatment in intermittent and every 48-hour patients with doses on Day 1 and Day 2. Patients on ECMO: Dose based on renal function. Robby Alcantar RPh 10/29/21 12:14 AM documented in this encounter H&P Notes * Sukhdev Matias MD - 10/28/2021 11:05 PM CDT Images from the original note were not included. History and Physical Date of service: 10/29/21 Primary care provider: Anil Gupta MD Chief Complaint: Back pain, chills Subjective HPI: 71-year-old male with a history of SIADH, history of C diff colitis with 3 recurrences, history of lumbar limb radiculopathy status post posterior lateral arthrodesis and anterior interbody fusion L5-S1, posterior nonsegmental instrumentation, L5 wide bilateral lumbar laminectomy, facetectomy, foraminotomy for decompression with re-exploration and decompression right L5-S1, placement of an 11 mm 12 degree interbody device, use of morselized autograft with bone densitometer reader, bone marrow aspirate with left iliac crest through a separate incision with Dr. Granger on 10/11/2021 presents with fever back pain. 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 Patient reports he was in his usual state of health until a few days ago. He reports he had his stitches removed after surgery on 10/21/2021. I reviewed the note from the spine clinic and there is known noted evidence of infection at that time. He reports that he started having loose stools a few days ago. He started taking some vancomycin oral tablets that he had left over from when he had Clostridium difficile infection in the past. 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 He has not been retested for C diff colitis. He reports he took severaldoses of vancomycin and the diarrhea resolved. He then started having back pain and chills. The chil ls started more pronounced yesterday. His was worried that he had a urinary tract infection which she has had in the past. He denies any dysuria, hematuria, frequency, urgency. He reports his pain feels more at the surgical site. He presented to [facility] for further evaluation. At [facility], his exam reportedly was notable for pratima pus draining from the surgical site. There was also noted to his sense of the wound. He was initially hypotensive, had a sodium 128 (with a history of SIADH), white blood cell count 14.8. He was tachycardic and recently had a fever. Antibiotics were not started. He had a chest x-ray which was clear. Sepsis lactate was within normal limits. Blood cultures were reportedly obtained. His primary surgeon Dr. Granger was contacted he is currently in [place]. Dr. Sheets was contacted via the transfer center and agreed with transfer to [facility] with hospitalist and Infectious Diseases support. Patient was transferred here. On my evaluation of the patient, he reports ongoing chills. He reports back pain that is better with lying still and worse with movement. He has not noted drainage from the site. He reports the woundhas started to feel like it is opening. He reports that he is worried that he got his stitches out too early. He has had several episodes of C diff in the past. Most recently, he was transition from vancomycinto Dificid which helped his diarrhea resolved fairly quickly. He denies regular use of antibiotics.He reports he takes Lyrica for neuropathy. He has been taking oxycodone for postoperative pain. He takes a PPI for acid reflux. He denies a history of tobacco use. He reports he drinks 2-3 glasses of white run in a day. He lives independently with his . He does not use any assistive devices. 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 He confirmed full code. His would make medical decisions for him in an emergency. He is fully vaccinated for COVID-19 including 2 booster doses. Family history reviewed and notable for no history of infections listed. Past Medical History: Diagnosis Date ??? Arthritis ??? Asthma ??? GERD (gastroesophageal reflux disease) ??? Lead poisoning ??? Lumbar radiculopathy ??? Peripheral neuropathy ??? Pseudomonas respiratory infection comes and goes - on senior living antibiotics to prevent further mucous build up ??? Toxic effect of mercury and its compounds, accidental (unintentional), initial encounter Past Surgical History: Procedure Laterality Date ??? MICRODISCECTOMY LUMBAR 06/03/2021 S/P Right L5-S1 Microdiscectomy ([place]) Medications Prior to Admission Medication Sig Dispense Refill Last Dose ??? albuterol HFA (PROVENTIL HFA,VENTOLIN HFA,PROAIR HFA) 90 mcg/actuation inhaler Inhale 2 puffs every 6 (six) hours as needed for wheezing More than a month at Unknown time ??? budesonide-formoteroL (SYMBICORT) 160-4.5 mcg/actuation inhaler Inhale 2 puffs 2 (two) times a day as needed Rinse mouth with water after use. Do not swallow. More than a month at Unknown time ??? fluticasone propionate (FLONASE) 50 mcg/actuation nasal spray Administer 4 sprays into each nostril daily 10/28/2021 at Unknown time ??? ipratropium (ATROVENT) 42 mcg (0.06 %) nasal spray Administer 2 sprays into each nostril 2 (two) times a day 10/28/2021 at Unknown time ??? LYRICA 150 mg capsule Take 150 mg by mouth daily 10/28/2021 at Unknown time ??? oxyCODONE-acetaminophen (Percocet) 5-325 mg per tablet Take 1-2 tablets by mouth every 4 (four)hours as needed for pain for up to 14 days Maximum 6 tablets/day 90 tablet 0 10/28/2021 at Unknown time ??? pregabalin (LYRICA) 300 mg capsule Take 300 mg by mouth nightly ??? rOPINIRole (REQUIP) 2 mg tablet Take 2 mg by mouth nightly 10/28/2021 at Unknown time ??? tiZANidine (ZANAFLEX) 4 mg tablet Take 1 tablet (4 mg total) by mouth every 6 (six) hours as needed for muscle spasms 90 tablet 2 10/28/2021 at Unknown time ??? valACYclovir (VALTREX) 500 mg tablet Take 500 mg by mouth daily 10/28/2021 at Unknown time ??? vancomycin (VANCOCIN) 125 mg capsule Take 125 mg by mouth 4 (four) times a day No Known Allergies Social History Tobacco Use ??? Smoking status: Never Smoker ??? Smokeless tobacco: Never Used Substance and Sexual Activity ??? Drug use: No ??? Sexual activity: Not on file Alcohol Use: Not At Risk ??? Frequency of Alcohol Consumption: 4 or more times a week ??? Average Number of Drinks: 1 or 2 ??? Frequency of Binge Drinking: Never No family history on file. Review of Systems: (unless specified above) 1. Constitutional Denies: weight loss, weight gain, night sweats, + Fatigue, fever, chills 2. Eyes Denies: change in vision, double vision, eye pain, eye discharge, icterus 3. ENT Denies: change in hearing, ear pain, ear discharge, nose bleed, nasal congestion, sore throat 4. Respiratory Denies: SOB, wheezing, cough, sputum, hemoptysis 5. CV Denies: chest pain, palpitations, syncope, edema, dyspnea 6. GI Denies: abdominal pain, decreased appetite, nausea, vomiting, change in bowel habits, diarrhea, constipation, melena, BRBPR 7. Denies: dysuria, frequency, hematuria, nocturia, urgency 8. Metabolic Denies: cold intolerance, heat intolerance, polyphagia, polydipsia 9. Neurologic Denies: headache, dizziness, seizure, change in mental status, focal weakness, focal numbness. No difficulties with walking 10. Musculoskeletal Denies: myalgia, joint pain, joint redness, joint swelling, extremity pain + back pain 11. Skin Denies: rash or edema Objective Vitals: Vitals: 10/28/21 2255 BP: 129/74 Pulse: 95 Resp: 18 Temp: 36.7 ??C (98.1 ??F) SpO2: 97% 24hr Min/Max: Temp Min: 36.7 ??C (98.1 ??F) Max: 36.7 ??C (98.1 ??F) Pulse Min: 95 Max: 95 BP Min: 129/74 Max: 129/74 Resp Min: 18 Max: 18 SpO2 Min: 97 % Max: 97 % Most Recent : Vitals: 10/28/21 2255 BP: 129/74 Pulse: 95 Resp: 18 Temp: 36.7 ??C (98.1 ??F) SpO2: 97% No intake/output data recorded. No intake/output data recorded. Physical exam: General appearance: NAD, conversant Eyes: EOMI, PERRLA, sclera non icteric HENT: Atraumatic; oropharynx clear with moist mucous membranes and no mucosal ulcerations; normal hard and soft palate Neck: supple, trachea midline Lungs: Clear to auscultation bilaterally, normal respiratory effort Heart: RRR, no murmurs Abd: NABS, NTND Lower Ext: No peripheral edema or extremity LAD Neuro: No new gross deficits appreciated Musculoskeletal: no gross joint erythema, edema, tenderness Skin: Normal temperature, turgor and texture. Erythematous and edematous skin around surgical site which shows dehiscence. No drainage with light palpation. Psych: Appropriate affect, alert and oriented to person, place and time Vital signs and nursing notes reviewed Lab/Radiology/Diagnostic Review: Labs from [facility] dated 10/28/2021 White blood count 14.8 Hemoglobin 11.5 Hematocrit 35.6 Platelet count 354 Sodium 128 Potassium 4.5 Chloride 94 Bicarb 24 BUN 14 Creatinine 1 Glucose 90 Lactic acid 1 SARS-CoV-2 RNA RT PCR negative Imaging personally reviewed: Chest x-ray dated 10/28/2021 shows stable chronic interstitial lung disease Cardiac studies personally reviewed: EKG ordered Assessment/Plan Principal Problem: Severe sepsis ([facility]) Active Problems: Lumbar stenosis without neurogenic claudication Infection of lumbar spine ([facility]) ([facility]) Infection following a procedure, deep incisional surgical site, initial encounter History of Clostridium difficile colitis GERD without esophagitis Hyponatremia SIADH (syndrome of inappropriate ADH production) ([facility]) ([facility]) Suspected severe sepsis (WBC>12, HR>90, reported fever, initial hypotension) from surgical site infection, POA to [facility]. Ongoing, HR>90 on arrival. Suspected organisms include Staph, Strep. At risk for MRSA with recent surgery, Severe low back pain at surgical site Lumbar radiculopathy status post posterior lumbar decompression and spinal fusion Patient reportedly bolused 3.3 L normal saline Check lactate, blood cultures Start vancomycin for suspected cellulitis at surgical site. Pus reportedly expressed at [facility] Continue home Lyrica 300 mg b.i.d. Pain control with Tylenol, oxycodone, morphine Ortho spine c/s - sent Dr. Sheets a message ID c/s - Dr. Young reportedly called prior to transfer Hyponatremia Na 128 at [facility]. Prior urine studies consistent with SIADH as per his sap bw developer Dr. Noel. TSH wnl. Cortisol 11. Urine osm 349, serum osm 283 on 09/16/2021 on review of records from [facility] He was given NS 3.3 L in ED Check stat labs Trend Na Hold IVF. History of C diff infection Recent diarrhea noted following surgery. He reportedly started taking vancomycin with improvement. Diarrhea has improved. Monitor for recurrence. Consider oral vancomycin for prophylaxis as he has had 4 prior episodes. Most recently took Dificid prior to these doses of vancomycin po GERD without known esophagitis Continue PPI as per formulary. Consider transition to H2 paulina as may reduce risk for C. Diff. Code status: Full Code Goals for discharge / anticipated LOS: Anticipate admission > 2 midnights for management of suspected severe sepsis, SSI Medical complexity / risk: High Sukhdev Matias MD 10/29/2021 12:38 AM documented in this encounter Procedure Notes * Abdon Nava Jr., PA - 11/05/2021 5:40 PM CDTAssociated Order(s): PICC Line Insertion Post-Procedure Diagnose(s): Infection of lumbar spine (CMS/HCC) ([facility]) PICC Line Insertion Date/Time: 11/05/2021 5:40 PM Performed by: Abdon Nava Jr., PA Authorized by: Abdon Nava Jr., PA Adams Protocol: RN Notified of Procedure: yes Informed consent: Risks, benefits, alternatives discussed and patient/pharmacy sales representative/guardian agrees and accepts Patient's stated name/ matches armband: Yes Allergies confirmed: yes Consent form signed, dated, timed; matches correct patient, intended procedure and site: Yes Imaging: Pertinent imaging reviewed, correctly oriented and match to patient identifiers Lab/Diag test results: Pertinent lab/diag tests reviewed and match to patient identifiers Supplies, devices and special equipment are available: yes Site/side marked: yes Immediately prior to the procedure a time out was called: a verbal verification by the procedure participants confirmed correct patient identity, correct site/side marked and visible (if applicable);agreement on procedure to be done; and correct patient positioning Indications: Vascular access Anesthesia (see MAR for exact dosage) Anesthesia method: Local infiltration Local anesthetic: Lidocaine 1% Patient position: Flat Skin preparation: Skin prepped with 2% chlorhexidine Provider preparation: Cap, full body drape, gloves, gown, handwashing and mask Location: Left Upper Extremity basilic vein. Ultrasound guidance: Used for needle insertion and sterile probe cover used Assessment: Blood return through all ports and free fluid flow Catheter type: Single lumen (Power PICC) Catheter size: 4 Fr Needle inserted, vein idenitified then guidewire inserted easily into vein: Yes Number of attempts: 1 Successful placement: Yes Catheter length (cm): 42 Line securement: Dressing applied and securement device Patient tolerance: Patient tolerated the procedure well with no immediate complications Post Procedure Debrief: All guidewires, needles, sponges or other items are accounted for: yes Any special post procedure monitoring, testing or other considerations: yes (enter/request order) (CXR) All specimens identified, labeled and matched to patient identification: n/a Responsible republican for transporting specimen(s) to lab determined: n/a documented in this encounter Consult Notes * Osmel Sheets MD - 10/29/2021 12:00 AM CDT CONSULTATION CLINICAL HISTORY This is a 71-year-old male. He had a lumbar microdiskectomy done in July, per his history, had some relief of his left-sided sciatica and developed some right- sided radiating pain down his leg. He hadwhat sounds like a diagnostic injection done in the interim period of time and on or about October 11, he had a laminectomy and transforaminal lumbar interbody fusion done by Dr. Granger and Dr. Garcia. The patient states he was doing well and had his treva removed about postop day 9. He had what seemed to be recurrent episode of C diff colitis, where he felt sick like he was having diarrhea. That happened a little bit before his treva were removed and he went back on his oral vancomycin agai n. He contacted his GI specialist but has not really heard back from them. He has developed increasing pain in his incision, the incision gapped open and drained a little bit but I can not actively express any drainage currently from it. He feels like his back pain is increasing. The patient had some chills and things of that nature. He was initially presented to [facility], was found to have an elevated white count. They gave him some hydration because his blood pressure was low and I accepted him in transfer to our institution. He also received a dose of antibiotics per what the doctor told me on the phone might but I do not have to definitive records of that. Upon admission, the nancie munguia presents. He does not really have much in the way of radiating pain down his legs or anythinglike that, just pain isolated to his back. He has some tenderness on his greater trochanter. His strength is normal. His skin incision looks okay. There is of definite fluctuance underneath it of fluid collection. It is warm and erythematous. The patient has had blood cultures drawn. His white blood cell count is elevated with a left shift. His CRP is elevated. Sed rates only mildly elevated at this point. Given the patient's recurrent history of C diff, he is not having diarrhea right now so Kam not think that the C diff colitis could be a cause of his infection type symptoms. I am suspicious that he has a wound infection. I talked with the patient about different options of observation versus exploration. I think at this point exploring the patient, getting a good culture and then tailoring antibiotics. Specifically, because of his history of C diff, if we could get an organism wouldbe very useful for ID management. We are going to hold antibiotics until after his exploration and d rainage. I told him we would wash it out and put in a drain, probably leave that in for 2-3 days. Expected postoperative course was discussed. Risks, benefits, alternatives were discussed. The patient agrees to proceed. We will go ahead with this today pending operative availability time. I do not think it is emergent as the patient does not appear to be septic. Job ID/Internal Job ID: [id number] * Kristine Young MD - 10/29/2021 12:00 AM CDT INFECTIOUS DISEASE CONSULTATION ATTENDING PHYSICIAN Dr. Marin Phelan. SURGERY ATTENDING Dr. Jayy Granger. DICTATING Dr. Kristine Young for Infectious Disease. IMPRESSIONS 1. Surgical site infection of the lumbar spine anticipating I and D this afternoon. Patient developed increasing back pain, fever, and incisional drainage over the weekend. 2. Status post L5-S1 interbody fusion October 11, 2021. 3. History of L5-S1 decompression and diskectomy June 03, 2021. 4. 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 5. History of bronchiectasis and Pseudomonas colonization. 6. SIADH. 7. Peripheral neuropathy. 8. 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 9. Gastroesophageal reflux disease. 10. A 30 pound weight loss in the last 9 months. RECOMMENDATIONS 1. Blood cultures taken at the outside emergency room are without growth at this time. 2. Intraoperative cultures anticipated this afternoon. 3. We will review Gram stains and possibly initiate therapy with vancomycin and cefepime. 4. Patient recently resumed use of oral vancomycin. Will continue 125 mg q.i.d. for now. Likely require a course of suppressive therapy while on antibiotic treatment. 5. Will speak with home health care in anticipation of outpatient infusion therapy. HISTORY OF PRESENT ILLNESS Mr. Horn is a very pleasant gentleman originally from [place] and now living in [place], [place]. 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 Mr. Horn has been bothered with low back pain for a couple of years. Symptoms of sciatica progressed last year and he underwent a series of epidural injections with some benefit. Tells me that his insurance refused further treatments and he sought other options. This last May he underwent L5-S1 d ecompression and diskectomy. Got only partial relief from this. Continued discomfort. He consented to the operation [address] Jayy Granger and Dr. Milad Garcia performed an L5-S1 fusion withinterbody cage and instrumentation. Mr. Horn states that he noted improvement almost immediately. He returned for removal of his sutures on October 21. He was doing well until last weekend when increasing low back pain and fever developed. He has developed some swelling about the lumbar area as well as drainage. Went to his local emergency room yesterday at [facility] with fever that morning of 101. In the ER it was 37.7. Hehad a white count of 14,800. Chemistries were notable for a sodium of 128 and a sed rate of 25, buta C-reactive protein of 22.5 mg/dL. His was concerned he might have a UTI as he had a couple in the past. Urinalysis was normal. Blood cultures were taken but no mention of antibiotic treatment.The surgeons here at [facility] were contacted and transfer approved. Mr. Horn arrived here late last night and had a temperature of 38.4. Blood cultures were taken a little after midnight and remain without growth. I contacted the referring emergency room and their blood cultures from 2 p.m. yesterday are also without growth at this time. He had a dressing placed on his lower back and I understand a small stain was present earlier. Incision is presently open to air with no drainage, but there is fluctuance over the posterior lumbar incision. He tells me there was drainage onto his bedding earlier today. Patient has had recent difficulties with relapsing C difficile diarrhea. Numbers 4 episodes. He is not certain of his treatment initially, but very probably vancomycin. With the 2nd episode says he was treated with 2 medications. On the 3rd, he started on vancomycin but was referred to Gastroenterology and was placed on Dificid. He had no further problem until last Thursday at the same time he wentto have his sutures removed. He had a sense of abdominal discomfort as well as diarrhea. He contacted his primary care physician and began taking vancomycin again. Says his bowel habits returned to normal within about 2 days. Patient does not recall recent use of antibiotics. Very likely received perioperative antibiotics on June 03 and October 11. Patient takes daily acyclovir, history of genital herpes. Apparently has done so for many years. Does have a history of urinary tract infections, possibly 2 or 3, more likely prostatitis by his description. States he was followed by physicians at [facility] 4-5 years ago with a Pseudomonas infection. I mentioned bronchiectasis and he believes so. He has not used antibiotics for this indication in some time. The patient has followed with a number of doctors in the last 10 years for diagnosis of peripheral neuropathy. Tells me that he has been checked for lead and mercury toxicity, but his levels are normal. However, I did see that there were notes indicated elevated levels at some point in time. He recalls as a teenager the fascination with metals and would break down old batteries to retrieve lead. He would help in his family's garage back in [place]. Has undergone ablation therapy with EDTA. I believe he has undergone 8 cycles with 6 treatments each over approximately a 2 year span. Mr. Horn also has a history of hyponatremia. SIADH has been discussed. He is followed by Nephrology, Dr. Xander Noel. Does have moderate alcohol use of approximately 2 highballs per day. His sodium yesterday was 128, it is 130 this morning. ALLERGIES None known. VACCINATIONS Mr. Horn received the Moderna SARS-CoV-2 vaccine May 23, June 20 and November 21, 2020. Navjots no documented infection with COVID-19 but thinks he probably had it at least once. HOME MEDICATIONS 1. Albuterol inhaler p.r.n. 2. Symbicort inhaler daily. 3. Atrovent inhaler. 4. Flovent inhaler daily. 5. Acyclovir 500 mg daily. 6. Vancomycin 125 mg q.i.d. restarted on October 21. PAST MEDICAL HISTORY 1. Genital herpes. 2. Prostatitis (2 or 3 episodes). 3. Bronchiectasis with known Pseudomonas colonization. 4. Relapsing C difficile diarrhea 2021. SOCIAL HISTORY Mr. Horn and his are residents of [place], [place]. This is each their 2nd marriage. Flohas 2 children by his 1st and she 1, all adults now. 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 Came to the [facility] over 10 years ago to set up [employer] in [place]. His is from the [facility]. He has dual citizenship. Mr. Horn smoked a couple of packs of cigarettes in his youth. Enjoys a highball or 2 in the evening. REVIEW OF SYSTEMS Mr. Horn has no history of cerebrovascular disease, stroke, TIA, seizure, memory loss, or encephalopathy. He denies chronic sinus disease, changes in vision or hearing. Teeth are in good repair with considerable dental resurfacing. The patient describes reactive airways with intermittent asthma. Generally managed with inhalers, please see electronic records, some reference to interstitial fibrosis. Describes episodes of bronchitis rather than pneumonia. There is no history of cardiovascular disease, rheumatic fever, heart failure or coronary artery disease. He denies peptic ulcer disease, but does have reflux symptoms. No history of gastrointestinal bleeding, chronic liver disease, cholelithiasis or nephrolithiasis. Urinary tract infections likely represent prostatitis. PHYSICAL EXAMINATION Height 6 feet, weight 177 pounds, describes a 30-pound weight loss this year associated with back pain surgeries and diarrhea. Temperature of 101.2 was recorded around midnight. He is afebrile this morning, temperature 36.8. Vital signs are stable. Blood pressure 100/60, heart rate is 72, respirations 16 per minute, O2 sat 98% on room air. Mr. Horn was seated in a chair, pleasant, well-spoken. At times you could tell his back was bothering him when he would move slowly adjusting his position in bed. The lumbar incision is intact. Fluctuance is evident under the incision. No purulence could be expressed at this time. There is no erythema or cellulitis. He denies discomfort with direct palpation. Neck exam grossly unremarkable. He is well-developed. Facial features are thin. Sclerae white. Conjunctivae pink. Pupils are reactive and there are full extraocular movements. There is no facial tenderness or nasal discharge. Denies problems with epistaxis and gingival bleeding. Again, he has had extensive dental reconstruction, number of his lower teeth are worn down. Hearing appears intact. Neck is symmetric. Trachea is midline. There is no thyromegaly. No adenopathy is noted in submandibular, cervical, supraclavicular, axillary regions. Lungs were clear to auscultation bilaterally. No wheezes or rales were noted. Rare crackle, possibly. Coronary exam reveals a regular rhythm. S1, S2 are normal. He is not tachycardic. No murmurs noted. The patient was seated in a chair, did not have him get back into bed. Indicated no palpable tenderness. There was no distention. He indicated no CVA tenderness. Extremities were unremarkable. Skin was moderately tanned. No rashes were noted. There were no ulcerations. He had no clubbing. Calves were unremarkable. No palpable tenderness or peripheral edema. The patient indicated localized low back pain. He is having no radicular symptoms at this time. He does describe glove peripheral neuropathy. DISCUSSION Mr. Horn recently underwent L5-S1 fusion. He had undergone diskectomy at this level 4 months earlier in May. He was doing well until this last weekend when he had a rather sudden increase in pain associated with fever and malaise, had some drainage from the incision though not expressed at this time. Exam is notable for fluctuance and likely significant collection or abscess. There are no cultures to guide treatment at this time. I have contacted the referring hospital where they did take cultures of his blood yesterday and another set taken last evening. Accepting physician's note indicated that the antibiotics have been held in anticipation of operative cultures. The patient will need to continue on vancomycin suppression with relapsing C difficile. Will reviewGram stains from the operating room this afternoon when available. Anticipate the initial treatmentwith vancomycin and cefepime until we have further information. I described likely recommendations for an extended course of IV antibiotic therapy and oral antibiotic suppression, possibly 6 months. Impact on the C difficile also described. Made initial introduction to home health care services, PICC catheter and followup. Anticipate further hospital stay for 5-7 days. TIME SPENT 80 minutes including review of electronic records, calls to the referring hospital and discussion with nursing staff. Dr. Sheets is covering this week for Dr. Granger. Job ID/Internal Job ID: [id number] documented in this encounter Miscellaneous Notes * Plan of Care - Opal Cooper RN - 11/06/2021 1:42 PM CDT DISPO:Home with infusion and RN-[facility]. * Plan of Care - Mihaela Nails RN - 11/06/2021 1:21 PM CDT Goals: Clinical Goals for the Shift: VSS, pain control, spinal precautions, IV ABX, d/c home today Summary: Pt and educated on discharge information including IV medication administration, wifedemonstrated understanding. Home with . Problem: Lack of Knowledge: Goal: Ability to state signs and symptoms to report to health care provider will improve Outcome: Adequate for Discharge Goal: Understanding of ways to prevent infection will improve Outcome: Adequate for Discharge Problem: Nutritional: Goal: Nutritional status will improve Outcome: Adequate for Discharge Problem: Physical Regulation: Goal: Diagnostic test results will improve Outcome: Adequate for Discharge Goal: Will remain free from infection Outcome: Adequate for Discharge Goal: Ability to maintain vital signs within normal range will improve Outcome: Adequate for Discharge Problem: Respiratory: Goal: Ability to maintain normal respiratory secretions will improve Outcome: Adequate for Discharge Problem: Skin Integrity: Goal: Demonstration of wound healing without infection will improve Outcome: Adequate for Discharge Goal: Complications related to intravenous access or infusion will be avoided or minimized Outcome: Adequate for Discharge Problem: Health Behavior: Goal: Understanding of discharge needs will improve Outcome: Adequate for Discharge Problem: Lack of Knowledge: Goal: Ability to develop a pain control plan will improve Outcome: Adequate for Discharge Goal: Ability to identify pain intensity on a pain scale and rate it consistently will improve Outcome: Adequate for Discharge Goal: Ability to notify healthcare provider of pain before it becomes unmanageable or unbearable will improve Outcome: Adequate for Discharge Problem: Medication: Goal: Satisfaction with pain management regimen will improve Outcome: Adequate for Discharge Problem: Sensory: Goal: Ability to identify factors that increase the pain will improve Outcome: Adequate for Discharge Goal: Pain level will decrease Outcome: Adequate for Discharge Problem: Activity: Goal: Ability to return to normal activity level will improve Outcome: Adequate for Discharge Problem: Lack of Knowledge: Goal: Knowledge of the prescribed therapeutic regimen will improve Outcome: Adequate for Discharge Problem: Coping: Goal: Ability to cope will improve Outcome: Adequate for Discharge Problem: Health Behavior: Goal: Identification of resources available to assist in meeting health care needs will improve Outcome: Adequate for Discharge Problem: Sensory: Goal: Pain level will decrease Outcome: Adequate for Discharge * Plan of Care - Opal Cooper RN - 11/06/2021 11:32 AM CDT CM note-received message this am from Robyn Rodriguez-[facility] infusion/home health pt. Will be seen by [facility] RN on 11/07 for home iv antibiotic-Ceftriaxone OD to be administered, [facility] infusion will deliver antibiotic medication to pt's home this evening, Pt. Will receive his dose of IV Ceftriaxone here in the hospital today prior to discharge today, PICC line placed 11/05, have received antibiotic orders from Dr. Young this am and have faxed them to , pt. Lucio and RN-Mihaela Valdes. * Plan of Care - Selene Ashley RN - 11/06/2021 4:22 AM CDT Goals: Clinical Goals for the Shift: VSS, pain control, i/o, IV abx, rest, safety Summary: A&Ox4, VSS. Pain controlled with PRN medication x2, see MAR. IV antibiotics administered per orders. Intake and output as documented, uses urinal appropriately. Up ad jacqueline in room. Resting comfortably in bed, call light within reach. Problem: Lack of Knowledge: Goal: Ability to state signs and symptoms to report to health care provider will improve Outcome: Progressing Goal: Understanding of ways to prevent infection will improve Outcome: Progressing Problem: Nutritional: Goal: Nutritional status will improve Outcome: Progressing Problem: Physical Regulation: Goal: Diagnostic test results will improve Outcome: Progressing Goal: Will remain free from infection Outcome: Progressing Goal: Ability to maintain vital signs within normal range will improve Outcome: Progressing Problem: Respiratory: Goal: Ability to maintain normal respiratory secretions will improve Outcome: Progressing Problem: Skin Integrity: Goal: Demonstration of wound healing without infection will improve Outcome: Progressing Goal: Complications related to intravenous access or infusion will be avoided or minimized Outcome: Progressing Problem: Health Behavior: Goal: Understanding of discharge needs will improve Outcome: Progressing Problem: Lack of Knowledge: Goal: Ability to develop a pain control plan will improve Outcome: Progressing Goal: Ability to identify pain intensity on a pain scale and rate it consistently will improve Outcome: Progressing Goal: Ability to notify healthcare provider of pain before it becomes unmanageable or unbearable will improve Outcome: Progressing Problem: Medication: Goal: Satisfaction with pain management regimen will improve Outcome: Progressing Problem: Sensory: Goal: Ability to identify factors that increase the pain will improve Outcome: Progressing Goal: Pain level will decrease Outcome: Progressing Problem: Activity: Goal: Ability to return to normal activity level will improve Outcome: Progressing Problem: Lack of Knowledge: Goal: Knowledge of the prescribed therapeutic regimen will improve Outcome: Progressing Problem: Coping: Goal: Ability to cope will improve Outcome: Progressing Problem: Health Behavior: Goal: Identification of resources available to assist in meeting health care needs will improve Outcome: Progressing Problem: Sensory: Goal: Pain level will decrease Outcome: Progressing * Plan of Care - Aretha Sue RN - 11/05/2021 4:38 PM CDT Problem: Lack of Knowledge: Goal: Ability to state signs and symptoms to report to health care provider will improve Outcome: Progressing Goal: Understanding of ways to prevent infection will improve Outcome: Progressing Problem: Nutritional: Goal: Nutritional status will improve Outcome: Progressing Problem: Physical Regulation: Goal: Diagnostic test results will improve Outcome: Progressing Problem: Health Behavior: Goal: Understanding of discharge needs will improve Outcome: Progressing Problem: Sensory: Goal: Pain level will decrease Outcome: Progressing Problem: Coping: Goal: Ability to cope will improve Outcome: Progressing Goals: Clinical Goals for the Shift: Monitor vs,labs,I&O's,pain control,iv antibitoics as ordered,dc planning Summary: Pt up independently in room, pain well controlled with scheduled tylenol, drains dc'd thisam by [employer], pt had a shower this afternoon, tolerating regular diet, orders received for PICC this evening, iv antibiotics given as ordered, plan for DC tomorrow with picc for iv antibiotics at home, vss. * Plan of Care - Robyn Figueroa - 11/05/2021 12:37 PM CDT Correction: Patient has been accepted to [facility]. Patient's anticipated DC is 8/10 and is scheduled to be seen by SN on 11/07/2021 * Plan of Care - Robyn Figueroa - 11/05/2021 10:22 AM CDT Patient has been accepted to [facility]. Patient's anticipated DC is 8/10 and is scheduled to be seen by SN on 10/28/2021 * Plan of Care - Robyn Figueroa - 11/05/2021 9:00 AM CDT [facility] consult received. [facility] accepted patient with projected start of care within 48 hours of projected discharge on 11/06/2021. Opal EL, notified. * Plan of Care - Kitty Martin RN - 11/05/2021 1:41 AM CDT Problem: Lack of Knowledge: Goal: Ability to state signs and symptoms to report to health care provider will improve Outcome: Progressing Goal: Understanding of ways to prevent infection will improve Outcome: Progressing Problem: Nutritional: Goal: Nutritional status will improve Outcome: Progressing Problem: Physical Regulation: Goal: Diagnostic test results will improve Outcome: Progressing Goal: Will remain free from infection Outcome: Progressing Goal: Ability to maintain vital signs within normal range will improve Outcome: Progressing Problem: Respiratory: Goal: Ability to maintain normal respiratory secretions will improve Outcome: Progressing Problem: Skin Integrity: Goal: Demonstration of wound healing without infection will improve Outcome: Progressing Goal: Complications related to intravenous access or infusion will be avoided or minimized Outcome: Progressing Problem: Health Behavior: Goal: Understanding of discharge needs will improve Outcome: Progressing Problem: Lack of Knowledge: Goal: Ability to develop a pain control plan will improve Outcome: Progressing Goal: Ability to identify pain intensity on a pain scale and rate it consistently will improve Outcome: Progressing Goal: Ability to notify healthcare provider of pain before it becomes unmanageable or unbearable will improve Outcome: Progressing Problem: Medication: Goal: Satisfaction with pain management regimen will improve Outcome: Progressing Problem: Sensory: Goal: Ability to identify factors that increase the pain will improve Outcome: Progressing Goal: Pain level will decrease Outcome: Progressing Problem: Activity: Goal: Ability to return to normal activity level will improve Outcome: Progressing Problem: Lack of Knowledge: Goal: Knowledge of the prescribed therapeutic regimen will improve Outcome: Progressing Problem: Coping: Goal: Ability to cope will improve Outcome: Progressing Problem: Health Behavior: Goal: Identification of resources available to assist in meeting health care needs will improve Outcome: Progressing Problem: Sensory: Goal: Pain level will decrease Outcome: Progressing Goals: Clinical Goals for the Shift: vss, pain control, comfort, safety Summary: vss on room air. Pain controlled with prn oxy. Up ad jacqueline. Voiding regularly. New IV. IV abx given. Hemovacs compressed. Call light within reach. Will continue to monitor. * Plan of Care - Robyn Lakhani RN - 11/04/2021 4:32 PM CDT Goals: Clinical Goals for the Shift: monitor vs, control pain, continue IV antibiotics as ordered Problem: Lack of Knowledge: Goal: Ability to state signs and symptoms to report to health care provider will improve Outcome: Progressing Goal: Understanding of ways to prevent infection will improve Outcome: Progressing Problem: Nutritional: Goal: Nutritional status will improve Outcome: Progressing Problem: Physical Regulation: Goal: Diagnostic test results will improve Outcome: Progressing Goal: Will remain free from infection Outcome: Progressing Goal: Ability to maintain vital signs within normal range will improve Outcome: Progressing Problem: Respiratory: Goal: Ability to maintain normal respiratory secretions will improve Outcome: Progressing Problem: Skin Integrity: Goal: Demonstration of wound healing without infection will improve Outcome: Progressing Goal: Complications related to intravenous access or infusion will be avoided or minimized Outcome: Progressing Problem: Health Behavior: Goal: Understanding of discharge needs will improve Outcome: Progressing Problem: Lack of Knowledge: Goal: Ability to develop a pain control plan will improve Outcome: Progressing Goal: Ability to identify pain intensity on a pain scale and rate it consistently will improve Outcome: Progressing Goal: Ability to notify healthcare provider of pain before it becomes unmanageable or unbearable will improve Outcome: Progressing Problem: Medication: Goal: Satisfaction with pain management regimen will improve Outcome: Progressing Problem: Sensory: Goal: Ability to identify factors that increase the pain will improve Outcome: Progressing Goal: Pain level will decrease Outcome: Progressing Problem: Activity: Goal: Ability to return to normal activity level will improve Outcome: Progressing Problem: Lack of Knowledge: Goal: Knowledge of the prescribed therapeutic regimen will improve Outcome: Progressing Problem: Coping: Goal: Ability to cope will improve Outcome: Progressing Problem: Health Behavior: Goal: Identification of resources available to assist in meeting health care needs will improve Outcome: Progressing Problem: Sensory: Goal: Pain level will decrease Outcome: Progressing Summary: patient up in room this shift. Patient is passing gas and feels BM coming. Pain controlledwith PRN pain meds as ordered. Dressing CDI. Call light within reach, will continue to monitor and assess. * Provider Query - Juliocesar Calix MD - 11/04/2021 4:15 PM CDT Specify the Present on Admission Status. Diagnosis Moderate malnutrition _X_ Was present on admission __ Was NOT present on admission __ Clinically unable to determine if present on admission. Additional Provider Response: Clinical Indicators/Treatments: 10/28 Admission 11/04 Attending note-Moderate malnutrition 11/03 note-Reports a good appetite this admission and has been consuming 100% of meals. -Notes a 30 lb unintentional weight loss over the last 6 months r/t reduced appetite/intake. -Did observed some muscle and fat wasting during NFPE and pt meets criteria for moderate malnutrition based on this. Plan: Ensure BID. Use of terms such as likely, suspected, possible, or probable (associated with a specific diagnosisthat is being evaluated, monitored, or treated as if it exists) are acceptable and can be coded in the inpatient setting when documented at the time of discharge. This documentation will become part of the patient???s medical record. Sincerely, ..Amira Flores RN, [employer] Health Information Management * Plan of Care - Kitty Martin ZEYNEP Felix - 11/04/2021 3:17 AM CDT Problem: Lack of Knowledge: Goal: Ability to state signs and symptoms to report to health care provider will improve Outcome: Progressing Goal: Understanding of ways to prevent infection will improve Outcome: Progressing Problem: Nutritional: Goal: Nutritional status will improve Outcome: Progressing Problem: Physical Regulation: Goal: Diagnostic test results will improve Outcome: Progressing Goal: Will remain free from infection Outcome: Progressing Goal: Ability to maintain vital signs within normal range will improve Outcome: Progressing Problem: Respiratory: Goal: Ability to maintain normal respiratory secretions will improve Outcome: Progressing Problem: Skin Integrity: Goal: Demonstration of wound healing without infection will improve Outcome: Progressing Goal: Complications related to intravenous access or infusion will be avoided or minimized Outcome: Progressing Problem: Health Behavior: Goal: Understanding of discharge needs will improve Outcome: Progressing Problem: Lack of Knowledge: Goal: Ability to develop a pain control plan will improve Outcome: Progressing Goal: Ability to identify pain intensity on a pain scale and rate it consistently will improve Outcome: Progressing Goal: Ability to notify healthcare provider of pain before it becomes unmanageable or unbearable will improve Outcome: Progressing Problem: Medication: Goal: Satisfaction with pain management regimen will improve Outcome: Progressing Problem: Sensory: Goal: Ability to identify factors that increase the pain will improve Outcome: Progressing Goal: Pain level will decrease Outcome: Progressing Problem: Activity: Goal: Ability to return to normal activity level will improve Outcome: Progressing Problem: Lack of Knowledge: Goal: Knowledge of the prescribed therapeutic regimen will improve Outcome: Progressing Problem: Coping: Goal: Ability to cope will improve Outcome: Progressing Problem: Health Behavior: Goal: Identification of resources available to assist in meeting health care needs will improve Outcome: Progressing Problem: Sensory: Goal: Pain level will decrease Outcome: Progressing Goals: Clinical Goals for the Shift: vss, pain control, comfort, safety Summary: vss on room air. Pain controlled with prn oxycodone. Stand by assist. IV antibiotics given. NS infusing. Refused blood sugar checks. Hemovacs compressed. Dressing clean/dry/intact. Call light within reach. Will continue to monitor. * Plan of Care - Sindy Woodruff RN - 11/03/2021 6:05 PM CDT Problem: Lack of Knowledge: Goal: Ability to state signs and symptoms to report to health care provider will improve Outcome: Progressing Goal: Understanding of ways to prevent infection will improve Outcome: Progressing Problem: Nutritional: Goal: Nutritional status will improve Outcome: Progressing Problem: Physical Regulation: Goal: Diagnostic test results will improve Outcome: Progressing Goal: Will remain free from infection Outcome: Progressing Goal: Ability to maintain vital signs within normal range will improve Outcome: Progressing Problem: Respiratory: Goal: Ability to maintain normal respiratory secretions will improve Outcome: Progressing Problem: Skin Integrity: Goal: Demonstration of wound healing without infection will improve Outcome: Progressing Goal: Complications related to intravenous access or infusion will be avoided or minimized Outcome: Progressing Problem: Health Behavior: Goal: Understanding of discharge needs will improve Outcome: Progressing Problem: Lack of Knowledge: Goal: Ability to develop a pain control plan will improve Outcome: Progressing Goal: Ability to identify pain intensity on a pain scale and rate it consistently will improve Outcome: Progressing Goal: Ability to notify healthcare provider of pain before it becomes unmanageable or unbearable will improve Outcome: Progressing Problem: Medication: Goal: Satisfaction with pain management regimen will improve Outcome: Progressing Problem: Sensory: Goal: Ability to identify factors that increase the pain will improve Outcome: Progressing Goal: Pain level will decrease Outcome: Progressing Problem: Activity: Goal: Ability to return to normal activity level will improve Outcome: Progressing Problem: Lack of Knowledge: Goal: Knowledge of the prescribed therapeutic regimen will improve Outcome: Progressing Problem: Coping: Goal: Ability to cope will improve Outcome: Progressing Problem: Health Behavior: Goal: Identification of resources available to assist in meeting health care needs will improve Outcome: Progressing Problem: Sensory: Goal: Pain level will decrease Outcome: Progressing Goals: Clinical Goals for the Shift: VSS, npo for procedure, pain control Summary: VSS. I&D this morning. Weaned to RA. Increased pain post-op. IV morphine and po oxy given for pain. IVF started per orders. Good appetite. IS at bedside. Voiding well. Will continue to offer support. * Perioperative Nursing Note - Mihaela Herrera RN - 11/03/2021 11:29 AM CDT Dressing and Drain removed at beginning of case. 2- 1/8 inch inch hemovac drains at end of case. First drain is deep, second is superficial * Op Note - Milad Garcia MD - 11/03/2021 8:34 AM CDT Images from the original note were not included. Date of Surgery: Attending: Office Phone: Office Fax: 11/03/2021 Milad Garcia MD Drs. Garcia/Kyrie/[facility] Operative Report Surgeon(s): Milad Garcia MD Preoperative Diagnosis: Postoperative infection lumbar spine L5-S1 superficial and deep Postoperative Diagnosis: Postoperative infection lumbar spine L5-S1 superficial and deep Name of Procedure: 1. Excisional irrigation debridement lumbar spine postoperative infection from L5-S1 Anesthesia: General Endotracheal Anesthesia Estimated Blood Loss: 20 mL Intraoperative Fluids: See anesthesia note Specimens: Superficial and deep soft tissue culture sent for a aerobic, anaerobic, AFB, and fungal cultures. Blood/Blood Products Transfused: None Complications: None Condition on Discharge from the operating room was: None Operative Findings: Purulence deep and in the superficial areas. Significant amount of tissue which was removed.. 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 He underwent an L5-S1 posterior spinal fusion instrumentation with TLIF in September of 2021. He came back to the emergency department with worsening pain in his low back and drainage from his incision. He was taken back to the operating room by Osmel Sheets MD on 10/29/2021 for an I&D. He has been growing Serratia marcescens from that culture. He has been treated with IV antibiotics here in the hospital however he began to have worsening drainage from his posterior incision and some purulent looking material coming out of his drain tubing. Given the worsening drainage we decided to take him back to the operating room for a formal repeat irrigation and debridement of lumbar spine. We discussed the risks and benefits. He elected to proceed. Procedure: After identifying, marking and examining Mr. Horn, he was brought to the operating room on an OR gurney. Sequential Compression Devices were placed on the lower legs for DVT prophylaxis. The patientwas intubated by anesthesia and general endotracheal anesthesia was induced. The patient was turnedinto the prone position on a radiolucent OSI table with all bony prominences well padded. The sutures were removed. The back was pre prepped with alcohol followed by ChloraPrep. A final time-out was completed and we began by opening his previous incision. There was so 2-3 cm area in the middle of his incision which was easily opened, almost dehisced. I then used a knife to open the caudal and cran ial aspect of the incision. The skin edges were removed using a scalpel blade to healthy bleeding tissue underneath. Upon entering this skin and the superficial compartment a significant amount of purulent material was encountered. This was sent for cultures including a aerobic, anaerobic, AFB, andfungal. There was a significant amount of debris in necrotic fat in this compartment. That was sharp ly excised using a scalpel weight as well as curettes and Aldo. We then entered the deep compartment by releasing the fascia. Upon releasing the fascia there was a significant amount of purulence that tracked all the way down to the instrumentation. The instrumentation was intact and sound. This deep purulent material as well as some soft tissue was sent for deep lumbar cultures including aerobic, anaerobic, AFB, fungal. I then performed a an excisional debridement of the soft tissues around this area as well. Some necrotic muscle was removed using a scalpel. This was taken down to gentle bleeding muscle tissue. The tissue appeared to be more healthy. Numerous areas were debrided using a scalpel and scissors. The sutures were removed from both fascia and the skin. We then began our irrigation once the debridement was complete. 9 L of normal saline were irrigated through the incision via cysto tubing. At in the middle of this I did poor in 1 L of normal saline mixed with 30 cc of Betadine. This was allowed to sit for a few minutes. We then cleaned that out with the remaining normal s eleni from the cysto tubing. Hemostasis was obtained. Care was taken to not use the Bovie significantly as we wanted healthy bleeding tissue in this area. One more scraping debridement was performed along the muscle melchor and the remaining bone using the curette. This was irrigated out. We then began closure. 1.2 g of tobramycin powder were placed into the wound. A deep drain was placed beneath the fascia. The fascia was closed with 1. Vicryl sutures. The superficial layer had a drain placed and was also closed with 2-0 Vicryl sutures and 2-0 nylon sutures in a horizontal mattress fashion. A roney dressing was placed. The patient tolerated the procedure well without complication and was discharged in stable condition to the Post Anesthesia Care Unit with an unchanged neurological exam. Milad Nazario MD, was present throughout and performed the entire procedure. Milad Garcia M.D. [facility] Date: 11/03/2021 Time: 10:21 AM This document was created using speech voice [...] addressed to the provider's office for clarification. * Plan of Care - Kitty Martin RN - 11/03/2021 2:17 AM CDT Problem: Lack of Knowledge: Goal: Ability to state signs and symptoms to report to health care provider will improve Outcome: Progressing Goal: Understanding of ways to prevent infection will improve Outcome: Progressing Problem: Nutritional: Goal: Nutritional status will improve Outcome: Progressing Problem: Physical Regulation: Goal: Diagnostic test results will improve Outcome: Progressing Goal: Will remain free from infection Outcome: Progressing Goal: Ability to maintain vital signs within normal range will improve Outcome: Progressing Problem: Respiratory: Goal: Ability to maintain normal respiratory secretions will improve Outcome: Progressing Problem: Skin Integrity: Goal: Demonstration of wound healing without infection will improve Outcome: Progressing Goal: Complications related to intravenous access or infusion will be avoided or minimized Outcome: Progressing Problem: Health Behavior: Goal: Understanding of discharge needs will improve Outcome: Progressing Problem: Lack of Knowledge: Goal: Ability to develop a pain control plan will improve Outcome: Progressing Goal: Ability to identify pain intensity on a pain scale and rate it consistently will improve Outcome: Progressing Goal: Ability to notify healthcare provider of pain before it becomes unmanageable or unbearable will improve Outcome: Progressing Problem: Medication: Goal: Satisfaction with pain management regimen will improve Outcome: Progressing Problem: Sensory: Goal: Ability to identify factors that increase the pain will improve Outcome: Progressing Goal: Pain level will decrease Outcome: Progressing Problem: Activity: Goal: Ability to return to normal activity level will improve Outcome: Progressing Problem: Lack of Knowledge: Goal: Knowledge of the prescribed therapeutic regimen will improve Outcome: Progressing Problem: Coping: Goal: Ability to cope will improve Outcome: Progressing Problem: Health Behavior: Goal: Identification of resources available to assist in meeting health care needs will improve Outcome: Progressing Problem: Sensory: Goal: Pain level will decrease Outcome: Progressing Goals: Clinical Goals for the Shift: vss, pain control, comfort, safety Summary: vss on room air. Pain controlled with prn medication. IV antibiotics given. NPO at midnight. Walking regularly. Call light within reach. Will continue to monitor. * Plan of Care - Sindy Woodruff RN - 11/02/2021 3:09 PM CDT Problem: Lack of Knowledge: Goal: Ability to state signs and symptoms to report to health care provider will improve Outcome: Progressing Goal: Understanding of ways to prevent infection will improve Outcome: Progressing Problem: Nutritional: Goal: Nutritional status will improve Outcome: Progressing Problem: Physical Regulation: Goal: Diagnostic test results will improve Outcome: Progressing Goal: Will remain free from infection Outcome: Progressing Goal: Ability to maintain vital signs within normal range will improve Outcome: Progressing Problem: Respiratory: Goal: Ability to maintain normal respiratory secretions will improve Outcome: Progressing Problem: Skin Integrity: Goal: Demonstration of wound healing without infection will improve Outcome: Progressing Goal: Complications related to intravenous access or infusion will be avoided or minimized Outcome: Progressing Problem: Health Behavior: Goal: Understanding of discharge needs will improve Outcome: Progressing Problem: Lack of Knowledge: Goal: Ability to develop a pain control plan will improve Outcome: Progressing Goal: Ability to identify pain intensity on a pain scale and rate it consistently will improve Outcome: Progressing Goal: Ability to notify healthcare provider of pain before it becomes unmanageable or unbearable will improve Outcome: Progressing Problem: Medication: Goal: Satisfaction with pain management regimen will improve Outcome: Progressing Problem: Sensory: Goal: Ability to identify factors that increase the pain will improve Outcome: Progressing Goal: Pain level will decrease Outcome: Progressing Problem: Activity: Goal: Ability to return to normal activity level will improve Outcome: Progressing Problem: Lack of Knowledge: Goal: Knowledge of the prescribed therapeutic regimen will improve Outcome: Progressing Problem: Coping: Goal: Ability to cope will improve Outcome: Progressing Problem: Health Behavior: Goal: Identification of resources available to assist in meeting health care needs will improve Outcome: Progressing Problem: Sensory: Goal: Pain level will decrease Outcome: Progressing Goals: Clinical Goals for the Shift: VSS, pain controlm rest Summary: VSS. Pain controlled with scheduled medications. IV abx continued. Up ad jacqueline. Will continue to offer support. * Plan of Care - Douglas Taylor - 11/01/2021 11:33 AM CDT Problem: Lack of Knowledge: Goal: Ability to state signs and symptoms to report to health care provider will improve Outcome: Progressing Goal: Understanding of ways to prevent infection will improve Outcome: Progressing Problem: Nutritional: Goal: Nutritional status will improve Outcome: Progressing Problem: Physical Regulation: Goal: Diagnostic test results will improve Outcome: Progressing Goal: Will remain free from infection Outcome: Progressing Goal: Ability to maintain vital signs within normal range will improve Outcome: Progressing Problem: Respiratory: Goal: Ability to maintain normal respiratory secretions will improve Outcome: Progressing Problem: Skin Integrity: Goal: Demonstration of wound healing without infection will improve Outcome: Progressing Goal: Complications related to intravenous access or infusion will be avoided or minimized Outcome: Progressing Problem: Health Behavior: Goal: Understanding of discharge needs will improve Outcome: Progressing Problem: Lack of Knowledge: Goal: Ability to develop a pain control plan will improve Outcome: Progressing Goal: Ability to identify pain intensity on a pain scale and rate it consistently will improve Outcome: Progressing Goal: Ability to notify healthcare provider of pain before it becomes unmanageable or unbearable will improve Outcome: Progressing Problem: Medication: Goal: Satisfaction with pain management regimen will improve Outcome: Progressing Problem: Sensory: Goal: Ability to identify factors that increase the pain will improve Outcome: Progressing Goal: Pain level will decrease Outcome: Progressing Problem: Activity: Goal: Ability to return to normal activity level will improve Outcome: Progressing Problem: Lack of Knowledge: Goal: Knowledge of the prescribed therapeutic regimen will improve Outcome: Progressing Problem: Coping: Goal: Ability to cope will improve Outcome: Progressing Problem: Health Behavior: Goal: Identification of resources available to assist in meeting health care needs will improve Outcome: Progressing Problem: Sensory: Goal: Pain level will decrease Outcome: Progressing Goals: Clinical Goals for the Shift: VSS, pain control, therapy Summary: will continue to monitor. * Plan of Care - Douglas Taylor - 10/31/2021 12:58 PM CDT Problem: Lack of Knowledge: Goal: Ability to state signs and symptoms to report to health care provider will improve 10/31/2021 1258 by Douglas Taylor Outcome: Progressing 10/31/2021 0848 by Douglas Taylor Outcome: Progressing Goal: Understanding of ways to prevent infection will improve 10/31/2021 1258 by Douglas Taylor Outcome: Progressing 10/31/2021 0848 by Douglas Taylor Outcome: Progressing Problem: Nutritional: Goal: Nutritional status will improve 10/31/2021 1258 by Douglas Taylor Outcome: Progressing 10/31/2021 0848 by Douglas Taylor Outcome: Progressing Problem: Physical Regulation: Goal: Diagnostic test results will improve 10/31/2021 1258 by Douglas Taylor Outcome: Progressing 10/31/2021 0848 by Douglas Taylor Outcome: Progressing Goal: Will remain free from infection 10/31/2021 1258 by Douglas Taylor Outcome: Progressing 10/31/2021 0848 by Douglas Taylor Outcome: Progressing Goal: Ability to maintain vital signs within normal range will improve 10/31/2021 1258 by Douglas Taylor Outcome: Progressing 10/31/2021 0848 by Douglas Taylor Outcome: Progressing Problem: Respiratory: Goal: Ability to maintain normal respiratory secretions will improve 10/31/2021 1258 by Douglas Taylor Outcome: Progressing 10/31/2021 0848 by Douglas Taylor Outcome: Progressing Problem: Skin Integrity: Goal: Demonstration of wound healing without infection will improve 10/31/2021 1258 by Douglas Taylor Outcome: Progressing 10/31/2021 0848 by Douglas Taylor Outcome: Progressing Goal: Complications related to intravenous access or infusion will be avoided or minimized 10/31/2021 1258 by Douglas Taylor Outcome: Progressing 10/31/2021 0848 by Douglas Taylor Outcome: Progressing Problem: Health Behavior: Goal: Understanding of discharge needs will improve 10/31/2021 1258 by Douglas Taylor Outcome: Progressing 10/31/2021 0848 by Douglas Taylor Outcome: Progressing Problem: Lack of Knowledge: Goal: Ability to develop a pain control plan will improve 10/31/2021 1258 by Douglas Taylor Outcome: Progressing 10/31/2021 0848 by Douglas Taylor Outcome: Progressing Goal: Ability to identify pain intensity on a pain scale and rate it consistently will improve 10/31/2021 1258 by Douglas Taylor Outcome: Progressing 10/31/2021 0848 by Douglas Taylor Outcome: Progressing Goal: Ability to notify healthcare provider of pain before it becomes unmanageable or unbearable will improve 10/31/2021 1258 by Douglas Taylor Outcome: Progressing 10/31/2021 0848 by Douglas Taylor Outcome: Progressing Problem: Medication: Goal: Satisfaction with pain management regimen will improve 10/31/2021 1258 by Douglas Taylor Outcome: Progressing 10/31/2021 0848 by Douglas Taylor Outcome: Progressing Problem: Sensory: Goal: Ability to identify factors that increase the pain will improve 10/31/2021 1258 by Douglas Taylor Outcome: Progressing 10/31/2021 0848 by Douglas Taylor Outcome: Progressing Goal: Pain level will decrease 10/31/2021 1258 by Douglas Taylor Outcome: Progressing 10/31/2021 0848 by Douglas Taylor Outcome: Progressing Problem: Activity: Goal: Ability to return to normal activity level will improve 10/31/2021 1258 by Douglas Taylor Outcome: Progressing 10/31/2021 0848 by Douglas Taylor Outcome: Progressing Problem: Lack of Knowledge: Goal: Knowledge of the prescribed therapeutic regimen will improve 10/31/2021 1258 by Douglas Taylor Outcome: Progressing 10/31/2021 0848 by Douglas Taylor Outcome: Progressing Problem: Coping: Goal: Ability to cope will improve 10/31/2021 1258 by Douglas Taylor Outcome: Progressing 10/31/2021 0848 by Douglas Taylor Outcome: Progressing Problem: Health Behavior: Goal: Identification of resources available to assist in meeting health care needs will improve 10/31/2021 1258 by Douglas Taylor Outcome: Progressing 10/31/2021 0848 by Douglas Taylor Outcome: Progressing Problem: Sensory: Goal: Pain level will decrease 10/31/2021 1258 by Douglas Taylor Outcome: Progressing 10/31/2021 0848 by Douglas Taylor Outcome: Progressing Goals: Clinical Goals for the Shift: VSS, pain control, therapy Summary: will continue to monitor. * Plan of Care - Douglas Taylor - 10/31/2021 8:48 AM CDT Problem: Lack of Knowledge: Goal: Ability to state signs and symptoms to report to health care provider will improve Outcome: Progressing Goal: Understanding of ways to prevent infection will improve Outcome: Progressing Problem: Nutritional: Goal: Nutritional status will improve Outcome: Progressing Problem: Physical Regulation: Goal: Diagnostic test results will improve Outcome: Progressing Goal: Will remain free from infection Outcome: Progressing Goal: Ability to maintain vital signs within normal range will improve Outcome: Progressing Problem: Respiratory: Goal: Ability to maintain normal respiratory secretions will improve Outcome: Progressing Problem: Skin Integrity: Goal: Demonstration of wound healing without infection will improve Outcome: Progressing Goal: Complications related to intravenous access or infusion will be avoided or minimized Outcome: Progressing Problem: Health Behavior: Goal: Understanding of discharge needs will improve Outcome: Progressing Problem: Lack of Knowledge: Goal: Ability to develop a pain control plan will improve Outcome: Progressing Goal: Ability to identify pain intensity on a pain scale and rate it consistently will improve Outcome: Progressing Goal: Ability to notify healthcare provider of pain before it becomes unmanageable or unbearable will improve Outcome: Progressing Problem: Medication: Goal: Satisfaction with pain management regimen will improve Outcome: Progressing Problem: Sensory: Goal: Ability to identify factors that increase the pain will improve Outcome: Progressing Goal: Pain level will decrease Outcome: Progressing Problem: Activity: Goal: Ability to return to normal activity level will improve Outcome: Progressing Problem: Lack of Knowledge: Goal: Knowledge of the prescribed therapeutic regimen will improve Outcome: Progressing Problem: Coping: Goal: Ability to cope will improve Outcome: Progressing Problem: Health Behavior: Goal: Identification of resources available to assist in meeting health care needs will improve Outcome: Progressing Problem: Sensory: Goal: Pain level will decrease Outcome: Progressing Goals: Clinical Goals for the Shift: VSS, pain control, therapy Summary: will continue to monitor. * Plan of Care - Manasa Herrera RN - 10/31/2021 2:52 AM CDT Problem: Sensory: Goal: Pain level will decrease Outcome: Progressing Problem: Sensory: Goal: Pain level will decrease Outcome: Progressing Goals: VSS Safety Pain management Summary: Pt resting in bed. Pain managed. VSS. Call light within reach. Voiding. * Plan of Care - Lilliana Woodard - 10/30/2021 6:38 PM CDT Goals: Clinical Goals for the Shift: VSS, pain control, therapy Summary: Pt. A&O on RA. Pt able to move with gait belt and walker. Surgical site has gauze and medipore tape. Hemovac intact and draining Problem: Lack of Knowledge: Goal: Ability to state signs and symptoms to report to health care provider will improve Outcome: Progressing Problem: Nutritional: Goal: Nutritional status will improve Outcome: Progressing Problem: Physical Regulation: Goal: Will remain free from infection Outcome: Progressing Problem: Sensory: Goal: Pain level will decrease Outcome: Progressing . Tolerated PO pain medications. Pt rested comfortably during shift. Currently laying in bed with call light in reach. * Plan of Care - Aida Barba RN - 10/30/2021 4:00 AM CDT Problem: Lack of Knowledge: Goal: Ability to state signs and symptoms to report to health care provider will improve Outcome: Progressing Goal: Understanding of ways to prevent infection will improve Outcome: Progressing Problem: Nutritional: Goal: Nutritional status will improve Outcome: Progressing Problem: Physical Regulation: Goal: Diagnostic test results will improve Outcome: Progressing Goal: Will remain free from infection Outcome: Progressing Goal: Ability to maintain vital signs within normal range will improve Outcome: Progressing Problem: Respiratory: Goal: Ability to maintain normal respiratory secretions will improve Outcome: Progressing Problem: Skin Integrity: Goal: Demonstration of wound healing without infection will improve Outcome: Progressing Goal: Complications related to intravenous access or infusion will be avoided or minimized Outcome: Progressing Problem: Lack of Knowledge: Goal: Ability to develop a pain control plan will improve Outcome: Progressing Goal: Ability to identify pain intensity on a pain scale and rate it consistently will improve Outcome: Progressing Goal: Ability to notify healthcare provider of pain before it becomes unmanageable or unbearable will improve Outcome: Progressing Problem: Medication: Goal: Satisfaction with pain management regimen will improve Outcome: Progressing Problem: Sensory: Goal: Pain level will decrease Outcome: Progressing Goals: Clinical Goals for the Shift: VSS, pain control, therapy Summary: Patient pain controlled with PO analgesics, IVf insusing, antibiotics given per MD order. * Brief Op Note - Bernarda Childs CNS - 10/29/2021 6:10 PM CDT Operative Progress Note Surgical Team: Surgeon(s) and Role: * Osmel Sheets MD - Primary Anesthesiologist: Zachary Acevedo MD; Kitty Campa MD SPECIAL TECHNICAL OPERATIONS OFFICER: Gretchen Watson CRNA Lace Inspector: Jodie Amaya RN Lace Inspector Relief: Ursula Collier RN Scrub: Cynthia Wynn ST DATE OF SURGERY : 10/29/2021 Preoperative Diagnosis: S/P L5-S1 fusion, Increased low back pain, Draining wound Postoperative Diagnosis: Wound infection Procedure(s): Procedure(s) (LRB): INCISION AND DRAINAGE BACK WOUND (N/A) Operative Findings: Purulent drainage both above and below the fascia Estimated Blood Loss: 100cc Intraoperative Fluids: mls Specimens: Gram Stain, Anaerobic/Aerobic both superficial and deep Implants: Nothing was implanted during the procedure Blood/Blood Products Transfused: 0 mls Complications: None Condition on Discharge from the operating room was stable ZOILA Nuno Date: 10/29/2021 Time: 7:31 PM No Resident involved on case * Plan of Care - Fidelina Suresh RN - 10/29/2021 5:43 PM CDT Goals: Clinical Goals for the Shift: Stable vitals, pain control, monitor previous surgical incision, workw/therapy, IVF, NPO for potential surgery, safety, rest Problem: Lack of Knowledge: Goal: Ability to state signs and symptoms to report to health care provider will improve Outcome: Progressing Problem: Nutritional: Goal: Nutritional status will improve Outcome: Progressing Problem: Physical Regulation: Goal: Diagnostic test results will improve Outcome: Progressing Problem: Respiratory: Goal: Ability to maintain normal respiratory secretions will improve Outcome: Progressing Problem: Skin Integrity: Goal: Demonstration of wound healing without infection will improve Outcome: Progressing Problem: Health Behavior: Goal: Understanding of discharge needs will improve Outcome: Progressing Summary: Patient is A&Ox4 upon assessment, on RA and has rested during shift. PT/OT worked withpatient, ambulated in hernandez - tolerating mobility well. Surgical incision to back from previous surgery remains open to air - clean/dry/intact. While working with OT this AM, surgical incision had scant drainage - kennel staff member unable to visualize drainage at the time. IVF continued with NPO status. Surgi reyes bath complete - off to floor around 1645 to OR for surgical procedure. Safety maintained duringshift. * Plan of Care - Opal Cooper RN - 10/29/2021 12:31 PM CDT CM Initial Assessment Interview Note Information Obtained From: Patient (10/29/21 1228) Admission Source: OSH transfer Impression: Infected lumbar wound Plan Includes: Pt. Wishes to return home with spouse at discharge. Primary Source of Transportation: [place] Does the patient need discharge transport arranged?: No (10/29/21 1230) Health Insurance Coverage: Medicare/[employer] Continiental Prescription Coverage: yes Pharmacy: [address] Primary Care Provider: Anil Gupta MD Prior to Admission: Primary Caregiver: Self Support System: Spouse/Significant Other Support system contact info (name, phone, availablity): SpouseAshly Home Care Services: No Durable Medical Equipment: None Living Arrangements: Spouse/significant other Type of Residence: Private residence Steps in home? : Yes, Outside of home Number of steps outside:: 3 steps (10/29/21 1228) SDOH: Transportation Needs: No Transportation Needs ??? Lack of Transportation (Medical): No ??? Lack of Transportation (Non-Medical): No Financial Resource Strain: Low Risk ??? Difficulty of Paying Living Expenses: Not very hard Housing Stability: Not on file Social Connections: Moderately Integrated ??? Frequency of Communication with Friends and Family: More than three times a week ??? Frequency of Social Gatherings with Friends and Family: Three times a week ??? Attends Tenriism Services: 1 to 4 times per year ??? Active Member of Clubs or Organizations: No ??? Attends Club or Organization Meetings: Never ??? Marital Status: Food Insecurity: Not on file Tobacco Use: Low Risk ??? Smoking Tobacco Use: Never Smoker ??? Smokeless Tobacco Use: Never Used Alcohol Use: Not At Risk ??? Frequency of Alcohol Consumption: 4 or more times a week ??? Average Number of Drinks: 1 or 2 ??? Frequency of Binge Drinking: Never Potential discharge needs include: Home Health: [facility], IV therapy (10/29/211227) Dialysis: no Behavioral Health Services: Behavioral Health Services: No (10/29/211227) Patient expects to be Discharged to: Private residence, (10/29/211227) Additional Information: met with pt. this am, he lives at home with his , verified pt's home address and PCP, pt. Lives in a 2-story home, has main bedroom and bathroom on main level of home, x3 steps to enter into their home. PLUG PASTER pt. Indep. With his adl's and ambulation, no DME at home except for a walking stick. Plan is for surgery today-wound exploration and drainage, will await C/S results, pt. Likely will need iv antibiotics at discharge. Referral sent to [facility] infusion and message to Eddie Rodriguez-[facility] pharmacist, will cont. to follow pt's progress and assist with any further discharge needs, pt's spouse will transport pt. Home at discharge. Patient's Identified Problem/Goal Problem: Ensure acute medical needs are met and that patient has a safe discharge plan. Goal: Secure a discharge plan that patient/family are agreeable with and ensure patient has continuum of care. Case management will follow for discharge planning and send referrals as needed. Goals include: To assure continuity of care, To maximize coping skills, To assure patient is in a safe environment and To assure access to community resources. Plan includes: 1. Collaboration with patient, MD, direct care nurse, Manufacturing Leader, Nurse Coordinator and other members of the health care team to assure needed interventions completed. 2. Return patient to optimal level of self-care post discharge. 3. Brick Off Bearer will follow for Discharge Planning - interventions as needed 4. Anticipated level of care at discharge 5. Planned Discharge Disposition Opal Cooper RN * Plan of Care - Sobia Diamond RN - 10/29/2021 3:40 AM CDT Problem: Lack of Knowledge: Goal: Ability to state signs and symptoms to report to health care provider will improve Outcome: Progressing Goal: Understanding of ways to prevent infection will improve Outcome: Progressing Problem: Nutritional: Goal: Nutritional status will improve Outcome: Progressing Problem: Physical Regulation: Goal: Diagnostic test results will improve Outcome: Progressing Goal: Will remain free from infection Outcome: Progressing Goal: Ability to maintain vital signs within normal range will improve Outcome: Progressing Problem: Respiratory: Goal: Ability to maintain normal respiratory secretions will improve Outcome: Progressing Problem: Skin Integrity: Goal: Demonstration of wound healing without infection will improve Outcome: Progressing Goal: Complications related to intravenous access or infusion will be avoided or minimized Outcome: Progressing Goals: Clinical Goals for the Shift: VSS, monitor labs, control pain, rest, remain free from injury\ Summary: VSS. Pt slept well overnight. Pain controlled with PRN meds. NPO. SBA. * Op Note - Osmel Sheets MD - 10/29/2021 12:00 AM CDT PREOP DIAGNOSIS Back wound infection status post lumbar fusion L5-S1. POSTOP DIAGNOSIS Back wound infection status post lumbar fusion L5-S1. SURGEON Kortney. MEAT PROCESS WORKER Bernarda Childs. EBL 100 mL. INTRAOPERATIVE COMPLICATIONS None. CULTURES Taken. FINDINGS Gross purulence in both the superficial and deep tissues. PROCEDURE Irrigation and debridement of back wound. After thorough preoperative workup proper informed consent was obtained, the patient was taken to the operating room where general endotracheal anesthesia was induced in the supine position. The patient was rolled in position prone on the Clay frame. All bony prominences were carefully padded. The patient had his back prepped and draped in standard sterile fashion. Appropriate engaged timeout was performed. Vertical incision was made using of the patient's previous incision. As soon as we cut through the skin, there was pus in the superficial tissue. I initially inspected the fascia and the fascia appear to be intact but there was a hole in the edge of the fascia which pus was coming up from. I then opened up and removed all the fascial sutures,dissected down to the instrumentation, removed the necrotic tissue, scraped it with a curette and then irrigated the wound with 6 L of double antibiotic solution. We obtained hemostasis, placed a deep drain, placed some vancomycin powder deep to the incision and performed a layered closure of the incision over a suction drainage. The patient tolerated procedure well. There were no complications. Specimens will be sent for aerobes, anaerobes, Gram stain, AFB and fungus. Job ID/Internal Job ID: [id number] documented in this encounter Plan of Treatment Not on file documented as of this encounter Procedures Procedure Name Priority Date/Time Associated Diagnosis Comments XR CHEST 1 VIEW ED Urgent/IP Urgent 11/05/2021 6:11 PM CDT [place] INSJ NON-TUNNELED CENTRAL VENOUS CATH AGE 6 YR/> Routine 11/05/2021 5:40 PM CDT Infection of lumbar spine (CMS/HCC) (HCC) EGFR Routine 11/05/2021 6:16 AM CDT CBC WITH AUTO DIFFERENTIAL Routine 11/05/2021 6:16 AM CDT MANUAL DIFFERENTIAL Routine 11/05/2021 6 :16 AM CDT RENAL FUNCTION PANEL Routine 11/05/2021 6:16 AM CDT EGFR Routine 11/04/2021 8:00 AM CDT DIFFERENTIAL AUTO Routine 11/04/2021 8:0 0 AM CDT CBC WITH AUTO DIFFERENTIAL Routine 11/04/2021 8:00 AM CDT BASIC METABOLIC PANEL Routine 11/04/2021 8:00 AM CDT TISSUE AEROBIC AND ANAEROBIC CULTURE AND GRAM STAIN Routine 11/03/2021 8:59 AM CDT MYCOLOGY (FUNGAL) CULTURE Routine 11/03/2021 8:59 AM CDT MYCOLOGY (FUNGAL) CULTURE Routine 11/03/2021 8:59 AM CDT MYCOBACTERIOLOGY AFB CULTURE AND ACID-FAST STAIN Routine 11/03/2021 8:59 AM CDT MYCOBACTERIOLOGY AFB CULTURE AND ACID-FAST STAIN Routine 11/03/2021 8:59 AM CDT AEROBIC AND ANAEROBIC CULTURE AND GRAM STAIN Routine 11/03/2021 8:59 AM CDT INCISION AND DRAINAGE - BACK 11/03/2021 7:57 AM CDT Back Infection POCT GLUCOSE DEVICE Routine 11/03/2021 5 :42 AM CDT POCT GLUCOSE DEVICE Routine 11/02/2021 8 :[address] LUMBAR SPINE W CONTRAST ED Urgent/IP Urgent 11/02/2021 10:22 AM CDT EGFR Routine 11/02/2021 6:56 AM CDT DIFFERENTIAL AUTO Routine 11/02/2021 6:5 6 AM CDT CBC WITH AUTO DIFFERENTIAL Routine 11/02/2021 6:56 AM CDT BASIC METABOLIC PANEL Routine 11/02/2021 6:56 AM CDT EGFR Routine 10/31/2021 5:00 AM CDT DIFFERENTIAL AUTO Routine 10/31/2021 5:0 0 AM CDT CBC WITH AUTO DIFFERENTIAL Routine 10/31/2021 5:00 AM CDT BASIC METABOLIC PANEL Routine 10/31/2021 5:00 AM CDT EGFR STAT 10/30/2021 9:10 AM CDT DIFFERENTIAL AUTO STAT 10/30/2021 9:1 0 AM CDT CBC WITH AUTO DIFFERENTIAL STAT 10/30/2021 9:10 AM CDT BASIC METABOLIC PANEL STAT 10/30/2021 9:10 AM CDT AEROBIC AND ANAEROBIC CULTURE AND GRAM STAIN Routine 10/29/2021 7:03 PM CDT AEROBIC AND ANAEROBIC CULTURE AND GRAM STAIN Routine 10/29/2021 7:03 PM CDT ECG 12-LEAD Routine 10/29/2021 12:44 AM CDT SEPSIS LACTATE WITH REFLEX STAT 10/29/2021 12:32 AM CDT EGFR STAT 10/29/2021 12:32 AM CDT DIFFERENTIAL AUTO STAT 10/29/2021 12:32 AM CDT CBC WITH AUTO DIFFERENTIAL STAT 10/29/2021 12:32 AM CDT BLOOD CULTURE STAT 10/29/2021 12:32 AM CDT BLOOD CULTURE STAT 10/29/2021 12:32 AM CDT ERYTHROCYTE SEDIMENTATION RATE STAT 10/29/2021 12:32 AM CDT TYPE AND SCREEN STAT 10/29/2021 12:32 AM CDT CRP (ACUTE PHASE) STAT 10/29/2021 12:32 AM CDT PHOSPHORUS STAT 10/29/2021 12:32 AM CDT MAGNESIUM STAT 10/29/2021 12:32 AM CDT COMPREHENSIVE METABOLIC PANEL STAT 10/29/2021 12:32 AM CDT documented in this encounter Results * XR Chest 1 View (11/05/2021 6:11 PM CDT) Anatomical Region Laterality Modality Body, Chest N/A Computed Radiogr aphy 11/05/2021 6:12 PM CDT Impressions 11/05/2021 6:12 PM CDT No prior comparison. Left PICC terminates in the superior cavoatrial junction. Heart is normal in size. ??No widening of the mediastinum. There is no pneumothorax or pleural effusion. ??Increased interstitial prominence within the lung bases may represent chronic fibrotic changes versus sequelae of aspiration pneumonia. Electronically signed by: Marielena Kirk M.D. Narrative 11/05/2021 6:12 PM CDT EXAMINATION: 1 view chest radiograph Procedure Note Marielena Kirk MD - 11/05/2021 EXAMINATION: 1 view chest radiograph IMPRESSION: No prior comparison. Left PICC terminates in the superior cavoatrial junction. Heart is normal in size. No widening of the mediastinum. There is no pneumothorax or pleural effusion. Increased interstitial prominence within the lung bases may represent chronic fibrotic changes versus sequelae of aspiration pneumonia. Electronically signed by: Marielena Kirk M.D. NANCIE Vidal Jr. IMG XR PROCEDUR ES Final Result * [place] INSJ NON-TUNNELED CENTRAL VENOUS CATH AGE 6 YR/> (11/05/2021 5:40 PM CDT) Narrative Abdon Nava Jr., PA - 11/05/2021 5:40 PM CDT Abdon Nava Jr., PA ? 11/05/2021 ??5:41 PM PICC Line Insertion Date/Time: 11/05/2021 5:40 PM Performed by: Abdon Nava Jr., PA Authorized by: Abdon Nava Jr., PA Adams Protocol: RN Notified of Procedure: yes ?? Informed consent: ??Risks, benefits, alternatives discussed and patient/pharmacy sales representative/guardian agrees and accepts Patient's stated name/ matches armband: ??Yes Allergies confirmed: yes ?? Consent form signed, dated, timed; matches correct patient, intended procedure and site: ??Yes Imaging: ??Pertinent imaging reviewed, correctly oriented and match to patient identifiers Lab/Diag test results: ??Pertinent lab/diag tests reviewed and match to patient identifiers Supplies, devices and special equipment are available: yes ?? Site/side marked: yes Immediately prior to the procedure a time out was called: a verbal verification by the procedure participants confirmed correct patient identity, correct site/side marked and visible (if applicable); agreement on procedure to be done; and correct patient positioning ?? Indications: ??Vascular access Anesthesia (see MAR for exact dosage) Anesthesia method: ??Local infiltration Local anesthetic: ??Lidocaine 1% Patient position: ??Flat Skin preparation: ??Skin prepped with 2% chlorhexidine Provider preparation: ??Cap, full body drape, gloves, gown, handwashing and mask Location: Left Upper Extremity basilic vein. Ultrasound guidance: ??Used for needle insertion and sterile probe cover used Assessment: ??Blood return through all ports and free fluid flow Catheter type: ??Single lumen (Power PICC) Catheter size: ??4 Fr Needle inserted, vein idenitified then guidewire inserted easily into vein: Yes ?? Number of attempts: ??1 Successful placement: Yes ?? Catheter length (cm): ??42 Line securement: ??Dressing applied and securement device Patient tolerance: ??Patient tolerated the procedure well with no immediate complications Post Procedure Debrief: All guidewires, needles, sponges or other items are accounted for: yes ?? Any special post procedure monitoring, testing or other considerations: yes (enter/request order) (CXR) ?? All specimens identified, labeled and matched to patient identification: n/a ?? Responsible republican for transporting specimen(s) to lab determined: n/a ?? us NANCIE Vidal Jr. IN [facility] DE ORDERABLES Final Result * eGFR (11/05/2021 6:16 AM CDT) eGFR 89 mL/min/1. 73 m2 [facility] Comment: Interpretive Data Reference Interval [...] interpretive data was last reviewed 2021. Blood 11/05/2021 6:16 AM CDT 11/05/2021 6:28 AM CDT us Kristine Young MD LAB BLOOD ORDERABLES Final Re sult [facility] [address] Department [place] [address] * (ABNORMAL) Manual Differential (11/05/2021 6:16 AM CDT) Differential Manual [facility] Cells Counted 115 [facility] Neutrophil abs 3.8 1.7 - 6.5 K/cumm [facility] Imm gran abs 0.0 0.0 - 0.1 K/cumm [facility] Lymphocyte abs 1.9 0.8 - 3.3 K/cumm [facility] Monocyte abs 0.2 0.2 - 0.8 K/cumm [facility] Neutrophil pct 64.3 % [facility] Comment: Interpretive Data Percent cell count reference ranges are not reported, since discordance with absolute values may lead to misinterpretation of CBC data. Current Interpretive Data was last revised on 2017. Lymphocyte pct 32.2 % [facility] Comment: Interpretive Data Percent cell count reference ranges are not reported, since discordance with absolute values may lead to misinterpretation of CBC data. Current Interpretive Data was last revised on 2017. Monocyte pct 3.5 % [facility] Comment: Interpretive Data Percent cell count reference ranges are not reported, since discordance with absolute values may lead to misinterpretation of CBC data. Current Interpretive Data was last revised on 2017. RBC morphology Present(A) [facility] Hypochromasia 3-7/HPF(A) [facility] Anisocytosis Slight(A) [facility] Blood 11/05/2021 6:16 AM CDT 11/05/2021 6:28 AM CDT us Kristine Young MD LAB BLOOD ORDERABLES Final Re sult [facility] [address] Department [place] [address] * (ABNORMAL) Renal function panel (11/05/2021 6:16 AM CDT) Sodium 133(L) 135 - 145 mmol/L [facility] Potassium, pl 4.9 3.3 - 4.9 mmol/L [facility] Chloride 99 97 - 110 mmol/L [facility] CO2 25 22 - 32 mmol/L [facility] Anion gap 9 2 - 15 mmol/L [facility] BUN 14 8 - 25 mg/dL [facility] Creatinine 0.92 0.80 - 1.30 mg/dL [facility] Glucose 96 70 - 199 mg/dL [facility] Comment: Interpretive Data Fasting glucose [...] interpretive data was last revised 2017. Calcium 8.7 8.5 - 10.3 mg/dL [facility] Phosphorus, pl 2.7 2.3 - 4.5 mg/dL [facility] Albumin 3.0(L) 3.5 - 5.0 g/dL [facility] Blood 11/05/2021 6:16 AM CDT 11/05/2021 6:28 AM CDT us Kristine Young MD LAB BLOOD ORDERABLES Final Re sult [facility] [address] Department [place] [address] * (ABNORMAL) CBC with auto differential (11/05/2021 6:16 AM CDT) WBC 5.9 3.8 - 9.9 K/cumm [facility] Hgb 8.0(L) 13.0 - 17.5 g/dL [facility] Hct 24.6(L) 38.9 - 50.3 % [facility] Plt 419(H) 150 - 400 K/cumm [facility] MPV 8.2(L) 9.1 - 12.3 fL [facility] RBC 2.77(L) 4.30 - 5.80 M/cumm [facility] MCV 88.8 81.3 - 96.4 fL [facility] MCH 28.9 27.1 - 33.3 pg [facility] MCHC 32.5 32.3 - 35.7 g/dL [facility] RDW CV 13.0 11.1 - 14.9 % [facility] RDW SD 42.6 35.7 - 48.1 fL [facility] NRBC abs 0.00 0.00 - 0.01 K/cumm [facility] Blood 11/05/2021 6:16 AM CDT 11/05/2021 6:28 AM CDT us Kristine Young MD LAB BLOOD ORDERABLES Final Re sult [facility] [address] Department [place] [address] * eGFR (11/04/2021 8:00 AM CDT) eGFR 97 mL/min/1. 73 m2 [facility] Comment: Interpretive Data Reference Interval [...] interpretive data was last reviewed 2021. Blood 11/04/2021 8:00 AM CDT 11/04/2021 8:24 AM CDT us Juliocesar Calix MD LAB BLOOD ORDERABLES Final Resu lt [facility] [address] Department [place] [address] * (ABNORMAL) Differential, auto (11/04/2021 8:00 AM CDT) Neutrophil abs 9.1(H) 1.7 - 6.5 K/cumm [facility] Imm gran abs 0.1 0.0 - 0.1 K/cumm [facility] Lymphocyte abs 1.6 0.8 - 3.3 K/cumm [facility] Monocyte abs 0.8 0.2 - 0.8 K/cumm [facility] Eosinophil abs 0.0 0.0 - 0.5 K/cumm [facility] Basophil abs 0.0 0.0 - 0.1 K/cumm [facility] Neutrophil pct 78.3 % [facility] Comment: Interpretive Data Percent cell count reference ranges are not reported, since discordance with absolute values may lead to misinterpretation of CBC data. Current Interpretive Data was last revised on 2017. Imm gran pct 0.7 % [facility] Comment: Interpretive Data Percent cell count reference ranges are not reported, since discordance with absolute values may lead to misinterpretation of CBC data. Current Interpretive Data was last revised on 2017. Lymphocyte pct 13.8 % [facility] Comment: Interpretive Data Percent cell count reference ranges are not reported, since discordance with absolute values may lead to misinterpretation of CBC data. Current Interpretive Data was last revised on 2017. Monocyte pct 7.1 % [facility] Comment: Interpretive Data Percent cell count reference ranges are not reported, since discordance with absolute values may lead to misinterpretation of CBC data. Current Interpretive Data was last revised on 2017. Eosinophil pct 0.0 % [facility] Comment: Interpretive Data Percent cell count reference ranges are not reported, since discordance with absolute values may lead to misinterpretation of CBC data. Current Interpretive Data was last revised on 2017. Basophil pct 0.1 % [facility] Comment: Interpretive Data Percent cell count reference ranges are not reported, since discordance with absolute values may lead to misinterpretation of CBC data. Current Interpretive Data was last revised on 2017. Blood 11/04/2021 8:00 AM CDT 11/04/2021 8:24 AM CDT us Juliocesar Calix MD LAB BLOOD ORDERABLES Final Resu lt Performing Organization Address City/[facility]/ZIP Co de Phone Number [facility] [address] Department [place] [address] * (ABNORMAL) Basic metabolic panel (11/04/2021 8:00 AM CDT) Sodium 129(L) 135 - 145 mmol/L [facility] Potassium, pl 4.5 3.3 - 4.9 mmol/L [facility] Chloride 96(L) 97 - 110 mmol/L [facility] CO2 26 22 - 32 mmol/L [facility] Anion gap 7 2 - 15 mmol/L [facility] BUN 13 8 - 25 mg/dL [facility] Creatinine 0.76(L) 0.80 - 1.30 mg/dL [facility] Glucose 106 70 - 199 mg/dL [facility] Comment: Interpretive Data Fasting glucose [...] interpretive data was last revised 2017. Calcium 8.5 8.5 - 10.3 mg/dL [facility] Blood 11/04/2021 8:00 AM CDT 11/04/2021 8:24 AM CDT us Milad Garcia MD LAB BLOOD ORDERABLES Fi nal Result Performing Organization Address [facility]/State/ZIP Co de Phone Number [facility] [address] Department [place] [address] * (ABNORMAL) CBC with auto differential (11/04/2021 8:00 AM CDT) Pathologist [facility] WBC 11.6(H) 3.8 - 9.9 K/cumm [facility] Hgb 8.9(L) 13.0 - 17.5 g/dL [facility] Hct 26.9(L) 38.9 - 50.3 % [facility] Plt 486(H) 150 - 400 K/cumm [facility] MPV 8.4(L) 9.1 - 12.3 fL [facility] RBC 3.04(L) 4.30 - 5.80 M/cumm [facility] MCV 88.5 81.3 - 96.4 fL [facility] MCH 29.3 27.1 - 33.3 pg [facility] MCHC 33.1 32.3 - 35.7 g/dL [facility] RDW CV 13.0 11.1 - 14.9 % [facility] RDW SD 41.7 35.7 - 48.1 fL [facility] NRBC abs 0.00 0.00 - 0.01 K/cumm [facility] Blood 11/04/2021 8:00 AM CDT 11/04/2021 8:24 AM CDT Milad Garcia MD LAB BLOOD ORDERABLES Fi nal Result [facility] [address] Department [place] [address] * Mycobacteriology (AFB) culture and acid-fast stain Wound Back (11/03/2021 8:59 AM CDT) Pathologist [facility] Direct Specimen Exam Stain: Concentrated smear: No Acid Fast Bacillus Seen [facility] Report Final Report: No Acid Fast Bacilli isolated [facility] Wound (Back) 11/03/2021 8:59 AM CDT 11/03/2021 9:39 AM CDT Narrative [facility] - 12/29/2021 1:00 PM CDT Deep Lumbar Wound Mycobacteriology (AFB) cultures are held for 8 weeks. Milad Garcia MD LAB MICROBIOLOGY - GENE RAL ORDERABLES Final Result Performing Organization Address [facility] Co de Phone Number [facility] [address] Department [place] [address] * (ABNORMAL) Mycology (fungal) culture Wound Back (11/03/2021 8:59 AM CDT) Report Final Report: No fungal growth seen on culture This is a corrected report. ??Previously reported as: Yeast isolated (.) [facility] Wound (Back) 11/03/2021 8:59 AM CDT 11/03/2021 9:39 AM CDT Narrative [facility] - 12/10/2021 10:49 AM CDT Deep Lumbar Wound Mycology cultures are held for 4 weeks. Milad Garcia MD LAB MICROBIOLOGY - GENE RAL ORDERABLES Final Result Performing Organization Address [facility] Co de Phone Number [facility] [address] [facility] [place] [address] * (ABNORMAL) Tissue aerobic and anaerobic culture and gram stain Tissue Back (11/03/2021 8:59 AM CDT) Direct Specimen Exam Stain: Many polymorphonuclear leukocytes seen. No organisms seen. [facility] Report Final Report: Very light growth Serratia marcescens In vitro Ceftriaxone FLY: <=0.25 = S FLY request by Dr. Young (.) [facility] Organism SERRATIA MARCESCENS [facility] Tissue (Back) 11/03/2021 8:5 9 AM CDT 11/03/2021 9:39 AM CDT Narrative [facility] - 11/06/2021 12:41 PM CDT Deep Lumbar Wound Organism Antibiotic Method Susceptibility Serratia marcescens Amoxicillin with Cla vulanic Acid (FLY) INTERPRETATION Resistant Serratia marcescens Ampicillin (FLY) INTERPRETATION Resistant Serratia marcescens Cefazolin (FLY) INTERPRETATION Resistant Serratia marcescens Ceftriaxone (FLY) INTERPRETATION Resistant Serratia marcescens Cefepime (FLY) INTERPRETATION Susceptible Serratia marcescens Ciprofloxacin (FLY) INTERPRETATION Susceptible Serratia marcescens Gentamicin (FLY) INTERPRETATION Susceptible Serratia marcescens Levofloxacin (FLY) INTERPRETATION Susceptible Serratia marcescens Meropenem (FLY) INTERPRETATION Susceptible Serratia marcescens Piperacillin/Tazobactam (FLY) INTE RPRETATION Resistant Serratia marcescens Tobramycin (FLY) INTERPRETATION Susceptible Serratia marcescens Trimethoprim with Sulfamethoxazole (FLY) INTERPRETATION Susceptible Milad Garcia MD LAB MICROBIOLOGY - GENE RAL ORDERABLES Final Result Performing Organization Address [facility] Co de Phone Number [facility] [address] Department of [facility] [place], [place] [id number] * Mycobacteriology (AFB) culture and acid-fast stain Wound Back (11/03/2021 8:59 AM CDT) Direct Specimen Exam Stain: Concentrated smear: No Acid Fast Bacillus Seen [facility] Report Final Report: No Acid Fast Bacilli isolated [facility] Wound (Back) 11/03/2021 8:59 AM CDT 11/03/2021 9:39 AM CDT Narrative [facility] - 12/29/2021 1:00 PM CDT Superficial Lumbar Wound Mycobacteriology (AFB) cultures are held for 8 weeks. Milad Garcia MD LAB MICROBIOLOGY - GENE RAL ORDERABLES Final Result Performing Organization Address [facility]/ZIP Co de Phone Number [facility] [address] Department of [facility] [place], [place] [id number] * (ABNORMAL) Aerobic and anaerobic culture and gram stain Wound Back (11/03/2021 8:59 AM CDT) Direct Specimen Exam Stain: Few polymorphonuclear leukocytes seen. No organisms seen. [facility] Report Final Report: Very light growth Serratia marcescens Susceptibility reported on this organism on previous culture [id number] (.) [facility] Organism SERRATIA MARCESCENS [facility] Wound (Back) 11/03/2021 8:59 AM CDT 11/03/2021 9:39 AM CDT Narrative [facility] - 11/06/2021 12:39 PM CDT Superficial Lumbar Wound Milad Garcia MD LAB MICROBIOLOGY - GENE RAL ORDERABLES Final Result Performing Organization Address [facility] de Phone Number [facility] [address] Department [place] [address] * (ABNORMAL) Mycology (fungal) culture Wound Back (11/03/2021 8:59 AM CDT) Report Final Report: No fungal growth seen on culture This is a corrected report. ??Previously reported as: Very light growth Yeast (.) [facility] Organism [facility] Wound (Back) 11/03/2021 8:59 AM CDT 11/03/2021 9:39 AM CDT Narrative [facility] - 12/10/2021 10:49 AM CDT Superficial Lumbar wound Mycology cultures are held for 4 weeks. Milad Garcia MD LAB MICROBIOLOGY - GENE RAL ORDERABLES Final Result Performing Organization Address [facility] de Phone Number [facility] [address] Department [place] [address] * POCT glucose (11/03/2021 5:42 AM CDT) Glucose, POC 86 70 - 140 mg/dL [facility] Comment: For Glucose values <35 mg/dl when Hematocrit is >60 mg/dl,the test may not accurately detect significant hypoglycemia,and testing in the Laboratory should be considered if clinically indicated. Blood 11/03/2021 5:42 AM CDT 11/03/2021 5:42 AM CDT Juliocesar Calix MD LAB POCT ORDERABLES - DEVICE Fi nal Result Performing Organization Address [facility] Co de Phone Number [facility] [address] [facility] [place], [place] [id number] * POCT glucose (11/02/2021 8:17 PM CDT) Glucose, POC 93 70 - 140 mg/dL [facility] Comment: For Glucose values <35 mg/dl when Hematocrit is >60 mg/dl,the test may not accurately detect significant hypoglycemia,and testing in the Laboratory should be considered if clinically indicated. Blood 11/02/2021 8:17 PM CDT 11/02/2021 8:17 PM CDT Juliocesar Calix MD LAB POCT ORDERABLES - DEVICE Fi nal Result Performing Organization Address [facility] Co de Phone Number [facility] [address] [facility] [place] [address] * CT Lumbar Spine W Contrast (11/02/2021 10:22 AM CDT) Anatomical Region Laterality Modality Spine N/A Computed Tomogra phy 11/02/2021 10:3 5 AM CDT Impressions 11/02/2021 10:35 AM CDT Postoperative changes. ??Surgical hardware is intact. Some local early postoperative air does not appear to be associated with well-defined drainable fluid collections. ??There is no erosive changes or anterior paraspinal/upper presacral fluid or inflammatory changes. Electronically signed by: KADY Patton 11/02/2021 10:[address] lumbar spine with contrast HISTORY: Infection suspected COMPARISON: Recent limited surgical x-rays. ??Outside MRI dated 07/08/2021. ??There is additional pertinent history of instrumented fusion on 10/11/2021 complicated by infection with recent irrigation and debridement FINDINGS: As was seen on operative x-rays in September there is evidence of instrumented fusion at L5-S1. ??Intervertebral fusion plug is in good position and maintains disc space height. ??There are changes of decompressive laminectomy with wider resection on the left and with placement of bilateral pedicle screws and lateral bone mass fusion. The left sacral screw traverses the anterior cortex but without associated surrounding significant soft tissue collection or hematoma. ??There are some foci of air lucency within the bilateral surgical regions of the posterior paraspinal soft tissues and at the level of the screws without well-defined drainable fluid collections at these levels. ??There is a right-sided drainage catheter adjacent to the facet at L4-L5. ??This actually enter superficially from the left. ??Contrast was given and appears to be mostly in the arterial phase without obvious significant pathologic paraspinal enhancement. Evaluation of the canal at the operative level is extremely limited. Above the surgery at L4-L5 there is disc space narrowing with bulging disc and left-sided spondylosis. ??Otherwise disc space height is preserved and the bony spinal canal appears to be adequate. 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 Procedure Note Kady Randle MD - 11/02/2021 CT lumbar spine with contrast HISTORY: Infection suspected COMPARISON: Recent limited surgical x-rays. Outside MRI dated 07/08/2021. There is additional pertinent history of instrumented fusion on 10/11/2021 complicated by infection with recent irrigation and debridement FINDINGS: As was seen on operative x-rays in September there is evidence of instrumented fusion at L5-S1. Intervertebral fusion plug is in good position and maintains disc space height. There are changes of decompressive laminectomy with wider resection on the left and with placement of bilateral pedicle screws and lateral bone mass fusion. The left sacral screw traverses the anterior cortex but without associated surrounding significant soft tissue collection or hematoma. There are some foci of air lucency within the bilateral surgical regions of the posterior paraspinal soft tissues and at the level of the screws without well-defined drainable fluid collections at these levels. There is a right-sided drainage catheter adjacent to the facet at L4-L5. This actually enter superficially from the left. Contrast was given and appears to be mostly in the arterial phase without obvious significant pathologic paraspinal enhancement. Evaluation of the canal at the operative level is extremely limited. Above the surgery at L4-L5 there is disc space narrowing with bulging disc and left-sided spondylosis. Otherwise disc space height is preserved and the bony spinal canal appears to be adequate. 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 IMPRESSION: Postoperative changes. Surgical hardware is intact. Some local early postoperative air does not appear to be associated with well-defined drainable fluid collections. There is no erosive changes or anterior paraspinal/upper presacral fluid or inflammatory changes. Electronically signed by: KADY RANDLE us Milad Garcia MD IMG CT PROCEDURES Final Result * eGFR (11/02/2021 6:56 AM CDT) eGFR 92 mL/min/1. 73 m2 [facility] Comment: Interpretive Data Reference [...] interpretive data was last reviewed 2021. Blood 11/02/2021 6:56 AM CDT 11/02/2021 7:22 AM CDT us Juliocesar Calix MD LAB BLOOD ORDERABLES Final Resu lt [facility] [address] Department [place] [address] * Differential, auto (11/02/2021 6:56 AM CDT) Neutrophil abs 4.6 1.7 - 6.5 K/cumm [facility] Imm gran abs 0.0 0.0 - 0.1 K/cumm [facility] Lymphocyte abs 0.8 0.8 - 3.3 K/cumm [facility] Monocyte abs 0.7 0.2 - 0.8 K/cumm [facility] Eosinophil abs 0.0 0.0 - 0.5 K/cumm [facility] Basophil abs 0.0 0.0 - 0.1 K/cumm [facility] Neutrophil pct 74.6 % [facility] Comment: Interpretive Data Percent cell count reference ranges are not reported, since discordance with absolute values may lead to misinterpretation of CBC data. Current Interpretive Data was last revised on 2017. Imm gran pct 0.5 % [facility] Comment: Interpretive Data Percent cell count reference ranges are not reported, since discordance with absolute values may lead to misinterpretation of CBC data. Current Interpretive Data was last revised on 2017. Lymphocyte pct 13.7 % [facility] Comment: Interpretive Data Percent cell count reference ranges are not reported, since discordance with absolute values may lead to misinterpretation of CBC data. Current Interpretive Data was last revised on 2017. Monocyte pct 11.2 % [facility] Comment: Interpretive Data Percent cell count reference ranges are not reported, since discordance with absolute values may lead to misinterpretation of CBC data. Current Interpretive Data was last revised on 2017. Eosinophil pct 0.0 % [facility] Comment: Interpretive Data Percent cell count reference ranges are not reported, since discordance with absolute values may lead to misinterpretation of CBC data. Current Interpretive Data was last revised on 2017. Basophil pct 0.0 % [facility] Comment: Interpretive Data Percent cell count reference ranges are not reported, since discordance with absolute values may lead to misinterpretation of CBC data. Current Interpretive Data was last revised on 2017. Blood 11/02/2021 6:56 AM CDT 11/02/2021 7:22 AM CDT us Juliocesar Calix MD LAB BLOOD ORDERABLES Final Resu lt [facility] [address] Department [place] [address] * (ABNORMAL) Basic metabolic panel (11/02/2021 6:56 AM CDT) Sodium 131(L) 135 - 145 mmol/L [facility] Potassium, pl 4.4 3.3 - 4.9 mmol/L [facility] Chloride 96(L) 97 - 110 mmol/L [facility] CO2 29 22 - 32 mmol/L [facility] Anion gap 6 2 - 15 mmol/L [facility] BUN 9 8 - 25 mg/dL [facility] Creatinine 0.90 0.80 - 1.30 mg/dL [facility] Glucose 99 70 - 199 mg/dL [facility] Comment: Interpretive Data Fasting glucose [...] interpretive data was last revised 2017. Calcium 8.9 8.5 - 10.3 mg/dL [facility] Blood 11/02/2021 6:56 AM CDT 11/02/2021 7:22 AM CDT Juliocesar Calix MD LAB BLOOD ORDERABLES Final Resu lt Performing Organization Address City/[facility]/ZIP Co de Phone Number [facility] [address] [place] [address] * (ABNORMAL) CBC with auto differential (11/02/2021 6:56 AM CDT) [facility] WBC 6.1 3.8 - 9.9 K/cumm [facility] Hgb 10.3(L) 13.0 - 17.5 g/dL [facility] Hct 31.4(L) 38.9 - 50.3 % [facility] Plt 418(H) 150 - 400 K/cumm [facility] MPV 8.3(L) 9.1 - 12.3 fL [facility] RBC 3.57(L) 4.30 - 5.80 M/cumm [facility] MCV 88.0 81.3 - 96.4 fL [facility] MCH 28.9 27.1 - 33.3 pg [facility] MCHC 32.8 32.3 - 35.7 g/dL [facility] RDW CV 13.1 11.1 - 14.9 % [facility] RDW SD 42.7 35.7 - 48.1 fL [facility] NRBC abs 0.00 0.00 - 0.01 K/cumm [facility] Blood 11/02/2021 6:56 AM CDT 11/02/2021 7:22 AM CDT Juliocesar Calix MD LAB BLOOD ORDERABLES Final Resu lt [facility] [address] [place] [address] * eGFR (10/31/2021 5:00 AM CDT) Pathologist [facility] eGFR 92 mL/min/1. 73 m2 [facility] Comment: Interpretive Data Reference Interval [...] interpretive data was last reviewed 2021. Blood 10/31/2021 5:00 AM CDT 10/31/2021 6:17 AM CDT us Juliocesar Calix MD LAB BLOOD ORDERABLES Final Resu lt [facility] [address] Department [place] [address] * (ABNORMAL) Differential, auto (10/31/2021 5:00 AM CDT) Neutrophil abs 3.6 1.7 - 6.5 K/cumm [facility] Imm gran abs 0.0 0.0 - 0.1 K/cumm [facility] Lymphocyte abs 0.7(L) 0.8 - 3.3 K/cumm [facility] Monocyte abs 0.6 0.2 - 0.8 K/cumm [facility] Eosinophil abs 0.0 0.0 - 0.5 K/cumm [facility] Basophil abs 0.0 0.0 - 0.1 K/cumm [facility] Neutrophil pct 72.4 % [facility] Comment: Interpretive Data Percent cell count reference ranges are not reported, since discordance with absolute values may lead to misinterpretation of CBC data. Current Interpretive Data was last revised on 2017. Imm gran pct 0.8 % [facility] Comment: Interpretive Data Percent cell count reference ranges are not reported, since discordance with absolute values may lead to misinterpretation of CBC data. Current Interpretive Data was last revised on 2017. Lymphocyte pct 14.5 % [facility] Comment: Interpretive Data Percent cell count reference ranges are not reported, since discordance with absolute values may lead to misinterpretation of CBC data. Current Interpretive Data was last revised on 2017. Monocyte pct 12.1 % [facility] Comment: Interpretive Data Percent cell count reference ranges are not reported, since discordance with absolute values may lead to misinterpretation of CBC data. Current Interpretive Data was last revised on 2017. Eosinophil pct 0.0 % [facility] Comment: Interpretive Data Percent cell count reference ranges are not reported, since discordance with absolute values may lead to misinterpretation of CBC data. Current Interpretive Data was last revised on 2017. Basophil pct 0.2 % [facility] Comment: Interpretive Data Percent cell count reference ranges are not reported, since discordance with absolute values may lead to misinterpretation of CBC data. Current Interpretive Data was last revised on 2017. Blood 10/31/2021 5:00 AM CDT 10/31/2021 6:16 AM CDT us Juliocesar Calix MD LAB BLOOD ORDERABLES Final Resu lt [facility] [address] Department [place] [address] * (ABNORMAL) Basic metabolic panel (10/31/2021 5:00 AM CDT) Sodium 131(L) 135 - 145 mmol/L [facility] Potassium, pl 4.2 3.3 - 4.9 mmol/L [facility] Chloride 98 97 - 110 mmol/L [facility] CO2 26 22 - 32 mmol/L [facility] Anion gap 7 2 - 15 mmol/L [facility] BUN 11 8 - 25 mg/dL [facility] Creatinine 0.89 0.80 - 1.30 mg/dL [facility] Glucose 105 70 - 199 mg/dL [facility] Comment: Interpretive Data Fasting glucose [...] interpretive data was last revised 2017. Calcium 8.3(L) 8.5 - 10.3 mg/dL [facility] Blood 10/31/2021 5:00 AM CDT 10/31/2021 6:17 AM CDT Juliocesar Calix MD LAB BLOOD ORDERABLES Final Resu lt [facility] [address] Department of Laboratories [place], [place] [id number] * (ABNORMAL) CBC with auto differential (10/31/2021 5:00 AM CDT) [facility] WBC 5.0 3.8 - 9.9 K/cumm [facility] Hgb 8.9(L) 13.0 - 17.5 g/dL [facility] Hct 28.1(L) 38.9 - 50.3 % [facility] Plt 323 150 - 400 K/cumm [facility] MPV 8.7(L) 9.1 - 12.3 fL [facility] RBC 3.09(L) 4.30 - 5.80 M/cumm [facility] MCV 90.9 81.3 - 96.4 fL [facility] MCH 28.8 27.1 - 33.3 pg [facility] MCHC 31.7(L) 32.3 - 35.7 g/dL [facility] RDW CV 13.2 11.1 - 14.9 % [facility] RDW SD 44.0 35.7 - 48.1 fL [facility] NRBC abs 0.00 0.00 - 0.01 K/cumm [facility] Blood 10/31/2021 5:00 AM CDT 10/31/2021 6:16 AM CDT us Juliocesar Calix MD LAB BLOOD ORDERABLES Final Resu lt [facility] [address] Department [place] [address] * eGFR (10/30/2021 9:10 AM CDT) eGFR 95 mL/min/1. 73 m2 [facility] Comment: Interpretive Data Reference Interval [...] interpretive data was last reviewed 2021. Blood 10/30/2021 9:10 AM CDT 10/30/2021 9:16 AM CDT us Juliocesar Calix MD LAB BLOOD ORDERABLES Final Resu lt [facility] [address] Department [place] [address] * (ABNORMAL) Differential, auto (10/30/2021 9:10 AM CDT) Neutrophil abs 8.0(H) 1.7 - 6.5 K/cumm [facility] Imm gran abs 0.0 0.0 - 0.1 K/cumm [facility] Lymphocyte abs 0.5(L) 0.8 - 3.3 K/cumm [facility] Monocyte abs 0.8 0.2 - 0.8 K/cumm [facility] Eosinophil abs 0.0 0.0 - 0.5 K/cumm [facility] Basophil abs 0.0 0.0 - 0.1 K/cumm [facility] Neutrophil pct 85.6 % [facility] Comment: Interpretive Data Percent cell count reference ranges are not reported, since discordance with absolute values may lead to misinterpretation of CBC data. Current Interpretive Data was last revised on 2017. Imm gran pct 0.3 % [facility] Comment: Interpretive Data Percent cell count reference ranges are not reported, since discordance with absolute values may lead to misinterpretation of CBC data. Current Interpretive Data was last revised on 2017. Lymphocyte pct 5.7 % [facility] Comment: Interpretive Data Percent cell count reference ranges are not reported, since discordance with absolute values may lead to misinterpretation of CBC data. Current Interpretive Data was last revised on 2017. Monocyte pct 8.3 % [facility] Comment: Interpretive Data Percent cell count reference ranges are not reported, since discordance with absolute values may lead to misinterpretation of CBC data. Current Interpretive Data was last revised on 2017. Eosinophil pct 0.0 % [facility] Comment: Interpretive Data Percent cell count reference ranges are not reported, since discordance with absolute values may lead to misinterpretation of CBC data. Current Interpretive Data was last revised on 2017. Basophil pct 0.1 % [facility] Comment: Interpretive Data Percent cell count reference ranges are not reported, since discordance with absolute values may lead to misinterpretation of CBC data. Current Interpretive Data was last revised on 2017. Blood 10/30/2021 9:10 AM CDT 10/30/2021 9:16 AM CDT us Juliocesar Calix MD LAB BLOOD ORDERABLES Final Resu lt [facility] [address] Department [place] [address] * (ABNORMAL) Basic metabolic panel (10/30/2021 9:10 AM CDT) Sodium 133(L) 135 - 145 mmol/L [facility] Potassium, pl 3.9 3.3 - 4.9 mmol/L [facility] Chloride 97 97 - 110 mmol/L [facility] CO2 27 22 - 32 mmol/L [facility] Anion gap 9 2 - 15 mmol/L [facility] BUN 10 8 - 25 mg/dL [facility] Creatinine 0.81 0.80 - 1.30 mg/dL [facility] Glucose 124 70 - 199 mg/dL [facility] Comment: Interpretive Data Fasting glucose [...] interpretive data was last revised 2017. Calcium 8.5 8.5 - 10.3 mg/dL [facility] Blood 10/30/2021 9:10 AM CDT 10/30/2021 9:16 AM CDT Juliocesar Calix MD LAB BLOOD ORDERABLES Final Resu lt Performing Organization Address City/[facility]/ZIP Co de Phone Number [facility] [address] [place] [address] * (ABNORMAL) CBC with auto differential (10/30/2021 9:10 AM CDT) WBC 9.4 3.8 - 9.9 K/cumm [facility] Hgb 10.1(L) 13.0 - 17.5 g/dL [facility] Hct 30.5(L) 38.9 - 50.3 % [facility] Plt 323 150 - 400 K/cumm [facility] MPV 8.4(L) 9.1 - 12.3 fL [facility] RBC 3.39(L) 4.30 - 5.80 M/cumm [facility] MCV 90.0 81.3 - 96.4 fL [facility] MCH 29.8 27.1 - 33.3 pg [facility] MCHC 33.1 32.3 - 35.7 g/dL [facility] RDW CV 13.1 11.1 - 14.9 % [facility] RDW SD 43.0 35.7 - 48.1 fL [facility] NRBC abs 0.00 0.00 - 0.01 K/cumm [facility] Blood 10/30/2021 9:10 AM CDT 10/30/2021 9:16 AM CDT Juliocesar Calix MD LAB BLOOD ORDERABLES Final Resu lt [facility] [address] Department [place] [address] * (ABNORMAL) Aerobic and anaerobic culture and gram stain Wound Back, lower (10/29/2021 7:03 PM CDT) Direct Specimen Exam Stain: Moderate polymorphonuclear leukocytes seen. No organisms seen. [facility] Report Final Report: Light growth of: Serratia marcescens Susceptibility reported on this organism on previous culture [id number] (.) [facility] Organism SERRATIA MARCESCENS [facility] Wound (Back, lower) 10/29/2021 7:03 PM CDT 10/29/2021 7:03 PM CDT Narrative [facility] - 11/01/2021 12:03 PM CDT Deep back wound Osmel Sheets MD LAB MICROBIOLOGY - GENERAL OR DERABLES Final Result [facility] [address] Department [place] [address] * (ABNORMAL) Aerobic and anaerobic culture and gram stain Wound Back, lower (10/29/2021 7:03 PM CDT) Direct Specimen Exam Stain: Many polymorphonuclear leukocytes seen. No organisms seen. [facility] Report Final Report: Light growth of: Serratia marcescens (.) [facility] Organism SERRATIA MARCESCENS [facility] Wound (Back, lower) 10/29/2021 7:03 PM CDT 10/29/2021 7:03 PM CDT Narrative [facility] - 11/01/2021 12:02 PM CDT Superficial back wound Organism Antibiotic Method Susceptibility Serratia marcescens Amoxicillin with Cla vulanic Acid (FLY) INTERPRETATION Resistant Serratia marcescens Ampicillin (FLY) INTERPRETATION Resistant Serratia marcescens Cefazolin (FLY) INTERPRETATION Resistant Serratia marcescens Ceftriaxone (FLY) INTERPRETATION Resistant Serratia marcescens Cefepime (FLY) INTERPRETATION Susceptible Serratia marcescens Ciprofloxacin (FLY) INTERPRETATION Susceptible Serratia marcescens Gentamicin (FLY) INTERPRETATION Susceptible Serratia marcescens Levofloxacin (FLY) INTERPRETATION Susceptible Serratia marcescens Meropenem (FLY) INTERPRETATION Susceptible Serratia marcescens Piperacillin/Tazobactam (FLY) INTE RPRETATION Resistant Serratia marcescens Tobramycin (FLY) INTERPRETATION Susceptible Serratia marcescens Trimethoprim with Sulfamethoxazole (FLY) INTERPRETATION Susceptible us Osmel Sheets MD LAB MICROBIOLOGY - GENERAL OR DERABLES Final Result Performing Organization Address [facility] Co de Phone Number [facility] [address] Department [place] [address] * ECG 12 lead (10/29/2021 12:44 AM CDT) 10/29/2021 12:4 4 AM CDT Narrative [facility] - 10/29/2021 7:31 AM CDT Vent Rate: 91 bpm RR Interval: 659 msec [place] Interval: 188 msec QRS Duration: 137 msec QT Interval: 343 msec QTC Interval: 391 msec P-R-T Avinger: 47 - -70 - 42 degrees SINUS RHYTHM LEFT AXIS DEVIATION RIGHT BUNDLE BRANCH BLOCK ABNORMAL ECG Electronically Signed By: Jessee Florence MD us Sukhdev Matias MD ECG ORDERABLES Edited R esult - Final Performing Organization Address [facility] de Phone Number [facility] [employer] [facility] * eGFR (10/29/2021 12:32 AM CDT) eGFR 92 mL/min/1. 73 m2 [facility] Comment: Interpretive Data Reference Interval [...] interpretive data was last reviewed 2021. Blood 10/29/2021 12:3 2 AM CDT 10/29/2021 12:38 AM CDT us Sukhdev Matias MD LAB BLOOD ORDERABLES Fin al Result [facility] [address] Department [place] [address] * (ABNORMAL) Differential, auto (10/29/2021 12:32 AM CDT) Neutrophil abs 12.4(H) 1.7 - 6.5 K/cumm [facility] Imm gran abs 0.1 0.0 - 0.1 K/cumm [facility] Lymphocyte abs 0.7(L) 0.8 - 3.3 K/cumm [facility] Monocyte abs 0.9(H) 0.2 - 0.8 K/cumm [facility] Eosinophil abs 0.0 0.0 - 0.5 K/cumm [facility] Basophil abs 0.0 0.0 - 0.1 K/cumm [facility] Neutrophil pct 87.9 % [facility] Comment: Interpretive Data Percent cell count reference ranges are not reported, since discordance with absolute values may lead to misinterpretation of CBC data. Current Interpretive Data was last revised on 2017. Imm gran pct 0.6 % [facility] Comment: Interpretive Data Percent cell count reference ranges are not reported, since discordance with absolute values may lead to misinterpretation of CBC data. Current Interpretive Data was last revised on 2017. Lymphocyte pct 5.3 % [facility] Comment: Interpretive Data Percent cell count reference ranges are not reported, since discordance with absolute values may lead to misinterpretation of CBC data. Current Interpretive Data was last revised on 2017. Monocyte pct 6.1 % [facility] Comment: Interpretive Data Percent cell count reference ranges are not reported, since discordance with absolute values may lead to misinterpretation of CBC data. Current Interpretive Data was last revised on 2017. Eosinophil pct 0.0 % [facility] Comment: Interpretive Data Percent cell count reference ranges are not reported, since discordance with absolute values may lead to misinterpretation of CBC data. Current Interpretive Data was last revised on 2017. Basophil pct 0.1 % [facility] Comment: Interpretive Data Percent cell count reference ranges are not reported, since discordance with absolute values may lead to misinterpretation of CBC data. Current Interpretive Data was last revised on 2017. Blood 10/29/2021 12:3 2 AM CDT 10/29/2021 12:40 AM CDT Sukhdev Matias MD LAB BLOOD ORDERABLES Fin al Result [facility] [address] Department [employer] [place], [place] [id number] * Sepsis Lactate w/ Reflex (10/29/2021 12:32 AM CDT) Pathologist [facility] Sepsis Lactate 1.0 0.7 - 2.0 mmol/L [facility] Blood 10/29/2021 12:3 2 AM CDT 10/29/2021 12:35 AM CDT Sukhdev Matias MD LAB BLOOD ORDERABLES Fin al Result [facility] [address] Department [place] [address] * Type and screen (10/29/2021 12:32 AM CDT) Sarah, indirect Negative [facility] ABO Rh A Negative [facility] Blood 10/29/2021 12:3 2 AM CDT 10/29/2021 12:42 AM CDT Narrative [facility] - 10/29/2021 1:19 AM CDT Has the patient had Daratumumab or Isatuximab in the past 6 months?->Unknown Sukhdev Matias MD LAB BLOOD BANK TEST ORDE RABLES Final Result Performing Organization Address [facility]/ZIP Co de Phone Number [facility] [address] Department [place] [address] * (ABNORMAL) CRP (acute phase) (10/29/2021 12:32 AM CDT) CRP 224.8(H) <=10.0 mg/L [facility] Blood 10/29/2021 12:3 2 AM CDT 10/29/2021 12:38 AM CDT Sukhdev Matias MD LAB BLOOD ORDERABLES Fin al Result Performing Organization Address [facility] Co de Phone Number [facility] [address] Department [place] [address] * (ABNORMAL) Erythrocyte sedimentation rate (10/29/2021 12:32 AM CDT) Pathologist [facility] Erythrocyte sedimentation rate 25(H) 1 - 20 mm/hr [facility] Blood 10/29/2021 12:3 2 AM CDT 10/29/2021 12:40 AM CDT Sukhdev Matias MD LAB BLOOD ORDERABLES Fin al Result Performing Organization Address [facility] Co de Phone Number [facility] [address] Department [place] [address] * Phosphorus (10/29/2021 12:32 AM CDT) Phosphorus, pl 2.8 2.3 - 4.5 mg/dL [facility] Blood 10/29/2021 12:3 2 AM CDT 10/29/2021 12:38 AM CDT Sukhdev Matias MD LAB BLOOD ORDERABLES Fin al Result Performing Organization Address [facility] Co de Phone Number [facility] [address] Department [place] [address] * Magnesium (10/29/2021 12:32 AM CDT) [facility] Magnesium 1.8 1.4 - 2.5 mg/dL [facility] Blood 10/29/2021 12:3 2 AM CDT 10/29/2021 12:38 AM CDT Sukhdev Matias MD LAB BLOOD ORDERABLES Fin al Result Performing Organization Address [facility] de Phone Number [facility] [address] Department [place] [address] * (ABNORMAL) Blood culture Blood (10/29/2021 12:32 AM CDT) [facility] Direct Specimen Exam Molecular Analysis: Serratia marcescens detected by the [employer] Blood Culture Identification Panel. ??This test does not exclude the possibility of a mixed bacterial infection. Test result called to and read back by Handy Thao on 10/30/2021 10:18:25 by KATE [facility] Direct Specimen Exam Stain: Gram Negative Bacilli [facility] Report Final Report: Serratia marcescens (.) [facility] Organism SERRATIA MARCESCENS [facility] Blood 10/29/2021 12:3 2 AM CDT 10/29/2021 12:43 AM CDT [facility] - 11/01/2021 6:48 AM CDT From a different site than #1. Organism Antibiotic Method Susceptibility Serratia marcescens Amoxicillin with Cla vulanic Acid (FLY) INTERPRETATION Resistant Serratia marcescens Ampicillin (FLY) INTERPRETATION Resistant Serratia marcescens Cefazolin (FLY) INTERPRETATION Resistant Serratia marcescens Ceftriaxone (FLY) INTERPRETATION Resistant Serratia marcescens Cefepime (FLY) INTERPRETATION Susceptible Serratia marcescens Ciprofloxacin (FLY) INTERPRETATION Susceptible Serratia marcescens Gentamicin (FLY) INTERPRETATION Susceptible Serratia marcescens Levofloxacin (FLY) INTERPRETATION Susceptible Serratia marcescens Meropenem (FLY) INTERPRETATION Susceptible Serratia marcescens Piperacillin/Tazobactam (FLY) INTE RPRETATION Resistant Serratia marcescens Tobramycin (FLY) INTERPRETATION Susceptible Serratia marcescens Trimethoprim with Sulfamethoxazole (FLY) INTERPRETATION Susceptible Sukhdev Matias MD LAB MICROBIOLOGY - GENER AL ORDERABLES Final Result Performing Organization Address City/[facility]/ZIP Co de Phone Number [facility] [address] Department [place] [address] * Blood culture Blood (10/29/2021 12:32 AM CDT) Report Final Report: No growth [facility] Blood 10/29/2021 12:3 2 AM CDT 10/29/2021 12:43 AM CDT Sukhdve Matias MD LAB MICROBIOLOGY - GENER AL ORDERABLES Final Result Performing Organization Address [facility] Co de Phone Number [facility] [address] Department [place] [address] * (ABNORMAL) CBC with auto differential (10/29/2021 12:32 AM CDT) Pathologist [facility] WBC 14.0(H) 3.8 - 9.9 K/cumm [facility] Hgb 10.0(L) 13.0 - 17.5 g/dL [facility] Hct 30.0(L) 38.9 - 50.3 % [facility] Plt 316 150 - 400 K/cumm [facility] MPV 8.3(L) 9.1 - 12.3 fL [facility] RBC 3.43(L) 4.30 - 5.80 M/cumm [facility] MCV 87.5 81.3 - 96.4 fL [facility] MCH 29.2 27.1 - 33.3 pg [facility] MCHC 33.3 32.3 - 35.7 g/dL [facility] RDW CV 13.3 11.1 - 14.9 % [facility] RDW SD 42.8 35.7 - 48.1 fL [facility] NRBC abs 0.00 0.00 - 0.01 K/cumm [facility] Blood 10/29/2021 12:3 2 AM CDT 10/29/2021 12:40 AM CDT us Sukhdev Matias MD LAB BLOOD ORDERABLES Fin al Result [facility] [address] Department [place] [address] * (ABNORMAL) Comprehensive metabolic panel (10/29/2021 12:32 AM CDT) Sodium 130(L) 135 - 145 mmol/L [facility] Potassium, pl 4.2 3.3 - 4.9 mmol/L [facility] Chloride 98 97 - 110 mmol/L [facility] CO2 23 22 - 32 mmol/L [facility] Anion gap 9 2 - 15 mmol/L [facility] BUN 10 8 - 25 mg/dL [facility] Creatinine 0.89 0.80 - 1.30 mg/dL [facility] Glucose 103 70 - 199 mg/dL [facility] Comment: Interpretive Data Fasting glucose [...] interpretive data was last revised 2017. Calcium 8.1(L) 8.5 - 10.3 mg/dL [facility] Bilirubin, total 0.6 0.1 - 1.2 mg/dL [facility] Protein, pl 5.6(L) 6.5 - 8.5 g/dL [facility] Albumin 3.0(L) 3.5 - 5.0 g/dL [facility] Alk phos 83 40 - 130 Units/L [facility] ALT 34 7 - 55 Units/L [facility] AST 32 10 - 50 Units/L [facility] Blood 10/29/2021 12:3 2 AM CDT 10/29/2021 12:38 AM CDT us Sukhdev Matias MD LAB BLOOD ORDERABLES Fin al Result [facility] [address] Department [place] [address] documented in this encounter Visit Diagnoses Not on filedocumented in this encounter Admitting Diagnoses Diagnosis Infection of lumbar spine (CMS/HCC) (HCC) documented in this encounter Administered Medications Inactive Administered Medications - up to 3 most recent administrations Medication Order MAR Action Action Date Dose Rate Site acetaminophen (TYLENOL) tablet 1,000 mg 1,000 mg, oral, Every 8 hours scheduled, First dose on Thu10/29/21 at 2200 Given 11/06/2021 1:06 PM CDT 1,000 mg Given 11/06/2021 6:12 AM CDT 1,000 mg Given 11/05/2021 2:17 PM CDT 1,000 mg aluminum-magnesium hydroxide-simethicone (MAALOX) 40-40-4 mg/mL oral suspension 30 mL 30 mL, oral, Every 4 hours PRN, cramping, indigestion, heartburn, Starting on Thu11/04/21 at 0058 Given 11/05/2021 3:57 AM CDT 30 mL Given 11/04/2021 1:04 AM CDT 30 mL bisacodyL (DULCOLAX) suppository 10 mg 10 mg, rectal, Daily PRN, constipation, If no results 24 hours after polyethylene glycol (MIRALAX). May give bisacodyl tablet if tolerating PO., Starting on Thu10/28/21 at 2229, Indications: constipationIndications:constipati on bisacodyl EC (DULCOLAX EC) tablet 10 mg 10 mg, oral, Daily PRN, constipation, If no results 24 hours after polyethylene glycol (MIRALAX). May give bisacodyl supp if not tolerating PO), Starting on Thu10/28/21 at 2229, Do not crush, chew, cut, dissolve, open or otherwise manipulate tablet/capsule., Indications: constipationIndications:constipati on budesonide-formoteroL (SYMBICORT) 160-4.5 mcg/actuation inhaler 2 puff 2 puff, inhalation, 2 times daily PRN (respooler), sob, Starting on Audrey 10/31/21 at 1202, Rinse mouth with water after use. Do not swallow., I /authorizing provider attest that the patient meets the approved [facility] Use Criteria: Yes cefTRIAXone (ROCEPHIN) 2,000 mg/20 mL in sterile water (premix) 2,000 mg 2,000 mg, intravenous, at 1,200 mL/hr, Administer over 1 Minutes, Every 24 hours scheduled, First dose on Thu11/06/21 at 1300, Indications: Bone/Joint InfectionIndications:Bone/Joint Infection Given 11/06/2021 1:06 PM CDT 2,000 mg 1200 mL/hr morphine injection 2 mg 2 mg, intravenous, Administer over 4 Minutes, Every 3 hours PRN, 3rd line for pain, Starting on Thu11/03/21 at 1129 Given 11/03/2021 11:39 AM CDT 2 mg ondansetron (ZOFRAN) injection 4 mg 4 mg, intravenous, Administer over 2 Minutes, Every 6 hours PRN, nausea, vomiting, if not tolerating PO, Starting on Thu10/28/21 at 2229, Indications: Nausea and VomitingIndications:Nausea and Vomiting ondansetron ODT (ZOFRAN-ODT) disintegrating tablet 4 mg 4 mg, oral, Every 6 hours PRN, nausea, vomiting, Starting on Thu10/28/21 at 2229, Indications: Nausea and VomitingIndications:Nausea and Vomiting oxyCODONE (ROXICODONE) tablet 10 mg 10 mg, oral, Every 4 hours PRN, 1st line for pain, pain score 5-7, Starting on Thu11/03/21 at 1129, Indications: PainIndications:Pain Given 11/06/2021 12:24 AM CDT 10 mg Given 11/05/2021 8:37 PM CDT 10 mg Given 11/04/2021 9:09 PM CDT 10 mg oxyCODONE (ROXICODONE) tablet 5 mg 5 mg, oral, Every 4 hours PRN, 2nd line for pain, Starting on Thu11/04/21 at 1019, Indications: PainIndications:Pain Given 11/04/2021 2:14 PM CDT [address] (PROTONIX) extended release tablet 40 mg 40 mg, oral, Daily, First dose on Thu10/30/21 at 0915, Do not crush, chew, cut, dissolve, open or otherwise manipulate tablet/capsule., Indications: Stress Ulcer ProphylaxisIndications:Stress Ulcer Prophylaxis Given 11/06/2021 9:16 AM CDT 40 mg Given 11/05/2021 8:40 AM CDT 40 mg Given 11/04/2021 8:58 AM CDT 40 mg polyethylene glycol (MIRALAX) packet 17 g 17 g, oral, Daily PRN, constipation, Starting on Thu10/28/21 at 2229, Indications: constipationIndications:constipation polyvinyl alcohol (LIQUIFILM TEARS) 1.4 % ophthalmic solution 1 drop 1 drop, each eye, 3 times daily, First dose on Thu10/30/21 at 0915 Given 11/06/2021 9:16 AM CDT 1 drop Given 11/05/2021 2:18 PM CDT 1 drop Given 11/05/2021 8:43 AM CDT 1 drop povidone-iodine (BETADINE) 22.5 mL in sodium chloride 0.9% 1,000 mL irrigation As needed, Starting on Thu11/03/21 at 1119, Intra-Op Given 11/03/2021 11:19 AM CDT 1,023 mL pregabalin (LYRICA) capsule 150 mg 150 mg, oral, Daily, First dose on Thu10/30/21 at 0900 Given 11/06/2021 9:16 AM CDT 150 mg Given 11/05/2021 8:40 AM CDT 150 mg Given 11/04/2021 8:57 AM CDT 150 mg pregabalin (LYRICA) capsule 300 mg 300 mg, oral, Nightly, First dose (after last modification) on Thu10/30/21 at 1630 Given 11/05/2021 2:18 PM CDT 300 mg Given 11/04/2021 2:14 PM CDT 300 mg Given 11/03/2021 2:57 PM CDT 300 mg ramelteon (ROZEREM) tablet 8 mg 8 mg, oral, Nightly PRN, sleep, Starting on Thu10/30/21 at 0016, Indications: Sleep-Onset InsomniaIndications:Sleep-Onset Insomnia Given 11/06/2021 12:28 AM CDT 8 mg Given 11/05/2021 1:12 AM CDT 8 mg Given 11/04/2021 12:51 AM CDT 8 mg rOPINIRole (REQUIP) tablet 2 mg 2 mg, oral, Nightly, First dose (after last modification) on Thu10/30/21 at 1630 Given 11/05/2021 2:18 PM CDT 2 mg Given 11/04/2021 2:14 PM CDT 2 mg Given 11/03/2021 2:57 PM CDT 2 mg sodium chloride 0.9% flush 0.5-20 mL 0.5-20 mL, intra-catheter, Every 8 hours scheduled, First dose on Thu10/28/21 at 2300, Flush volume based on line type and size. Given 11/06/2021 1:22 PM CDT 10 mL Given 11/06/2021 6:13 AM CDT 10 mL Given 11/05/2021 2:18 PM CDT 10 mL sodium chloride 0.9% flush 0.5-20 mL 0.5-20 mL, intra-catheter, As needed, line care, Starting on Thu10/28/21 at 2229, Flush volume based on line type and size. Flush before and after each use. sodium chloride 0.9% flush 5-10 mL 5-10 mL, intra-catheter, Every 12 hours scheduled, First dose on Thu11/05/21 at 2100, Flush volume based on line type, size, and protocol. Given 11/06/2021 9:18 AM CDT 10 mL Given 11/05/2021 8:32 PM CDT 10 mL sodium chloride 0.9% flush 5-20 mL 5-20 mL, intra-catheter, As needed, line care, with each use, Starting on Thu11/05/21 at 1624, Flush volume based on line type, size, and protocol. sodium chloride 0.9% irrigation As needed, Starting on Thu11/03/21 at 1118, Intra-Op Given 11/03/2021 11:18 AM CDT 9,000 mL tiZANidine (ZANAFLEX) tablet 4 mg 4 mg, oral, Every 6 hours PRN, muscle spasms, Starting on Thu10/30/21 at 0834, Administer on an empty stomach, Indications: Muscle SpasmIndications:Muscle Spasm Given 11/04/2021 4:44 AM CDT 4 mg tobramycin (NEBCIN) topical irrigation As needed, Starting on Thu11/03/21 at 0900, Intra-Op Given 11/03/2021 9:00 AM CDT 1,200 mg vancomycin (VANCOCIN) capsule 125 mg 125 mg, oral, Daily, First dose (after last reorder) on 11/02/21 at 0900, Indications: Clostridioides difficile infectionIndications:Clostridioides difficile infection Given 11/06/2021 9:16 AM CDT 125 mg Given 11/05/2021 8:40 AM CDT 125 mg Given 11/04/2021 8:57 AM CDT 125 mg documented in this encounter Discontinued Medications Medication Sig Discontinue Reason Start Date End Da te oxyCODONE-acetaminophe n (Percocet) 5-325 mg per tabletIndications:Pain Take 1-2 tablets by mouth every 4 (four) hours as needed for pain for up to 14 days Maximum 6 tablets/day Stop Taking at Discharge 10/18/2021 11/06/2021 vancomycin (VANCOCIN) 125 mg capsuleIndications:Felicia stridioides difficile infection Take 125 mg by mouth 4 (four) times a day Stop Taking at Discharge 11/06/2021 documented as of this encounter Historical Medications * This list may reflect changes made after this encounter. vancomycin (VANCOCIN) 125 mg capsuleIndication s:Clostridioides difficile infection Take 125 mg by mouth 4 (four) times a day 11/06/2021 pregabalin (LYRICA) 300 mg capsule Take 300 mg by mouth nightly 04/15/2022 added in this encounter Active and Recently Administered Medications Times are shown in CDT. Scheduled Medication Order 11/04/2021 11/05/2021 11/06/2021 acetaminophen (TYLENOL) tablet 1,000 mg 1,000 mg, oral, Every 8 hours scheduled, First dose on Thu10/29/21 at 2200 0555 (Given - Provider: Kitty Martin, ZEYNEP)1408 (Given - Provider: Robyn Lakhani, ZEYNEP)2109 (Given - Provider: Kitty Martin, ZEYNEP) 0523 (Given - Provider: Kitty Martin, ZEYNEP)1417 (Given - Provider: Aretha Sue, ZEYNEP)2301 (Not Given - Provider: Selene Ashley RN - Reason: Patient/family refused) 0612 (Given - Provider: Selene Ashley RN)1306 (Given - Provider: Mihaela Nails, ZEYNEP) cefTRIAXone (ROCEPHIN) 2,000 mg/20 mL in sterile water (premix) 2,000 mg 2,000 mg, intravenous, at 1,200 mL/hr, Administer over 1 Minutes, Every 24 hours scheduled, First dose on Thu11/06/21 at 1300, Indications: Bone/Joint Infection 1306 (Given - Provider: Mihaela Nails, ZEYNEP) lidocaine PF (XYLOCAINE) 10 mg/mL (1 %) preservative free injection 10-20 mg 10-20 mg (1-2 mL), subcutaneous, Once, On Thu11/05/21 at 1700, For 1 dose, Administer to insertion site prior to procedure of local anesthesia. Administer volume needed to infiltrate site., Indications: Administration of Local Anesthesia 1820 (Canceled Entry - Provider: Aretha Sue, ZEYNEP) meropenem (MERREM) 1,000 mg in sodium chloride 0.9% 100 mL IVPB (CANCELED) 1,000 mg, intravenous, at 200 mL/hr, Administer over 30 Minutes, Every 8 hours, First dose on Thu11/02/21 at 0900, Mini-Bag Plus bag, Indications: Bone/Joint Infection 0048 (New Bag - Provider: Kitty Martin RN)0904 (New Bag - Provider: Robyn Lakhani RN)1735 (New Bag - Provider: Robyn Lakhani RN) 0113 (New Bag - Provider: Kitty Martin RN)0847 (New Bag - Provider: Aretha Sue RN)1820 (New Bag - Provider: Aretha Sue RN - Comment: was waiting for picc verification//xray) 0156 (New Bag - Provider: Selene Ashley RN) oxyCODONE (ROXICODONE) tablet 5 mg (COMPLETED) 5 mg, oral, Once, On Thu11/04/21 at 1615, For 1 dose, Indications: Pain 1549 (Given - Provider: Robyn Lakhani RN) pantoprazole DR (PROTONIX) extended release tablet 40 mg 40 mg, oral, Daily, First dose on Thu10/30/21 at 0915, Do not crush, chew, cut, dissolve, open or otherwise manipulate tablet/capsule., Indications: Stress Ulcer Prophylaxis 0858 (Given - Provider: Robyn Lakhani RN) 0840 (Given - Provider: Aretha Sue RN) 0916 (Given - Provider: Mihaela Nails, ZEYNEP) polyvinyl alcohol (LIQUIFILM TEARS) 1.4 % ophthalmic solution 1 drop 1 drop, each eye, 3 times daily, First dose on Thu10/30/21 at 0915 0859 (Given - Provider: Robyn Lakhani RN)1600 (Given - Provider: Robyn Lakhani RN)2113 (Given - Provider: Kitty Martin RN) 0843 (Given - Provider: Aretha Sue RN)1418 (Given - Provider: Aretha Sue RN - Comment: pt request)2031 (Not Given - Provider: Selene Ashley RN - Reason: Patient/family refused) 0916 (Given - Provider: Mihaela Nails, ZEYNEP) pregabalin (LYRICA) capsule 150 mg 150 mg, oral, Daily, First dose on Thu10/30/21 at 0900 0857 (Given - Provider: Robyn Lakhani RN) 0840 (Given - Provider: Aretha Sue, ZEYNEP) 0916 (Given - Provider: Mihaela Nails, ZEYNEP) pregabalin (LYRICA) capsule 300 mg 300 mg, oral, Nightly, First dose (after last modification) on Thu10/30/21 at 1630 1414 (Given - Provider: Robyn Lakhani RN) 1418 (Given - Provider: Aretha Sue RN) rOPINIRole (REQUIP) tablet 2 mg 2 mg, oral, Nightly, First dose (after last modification) on Thu10/30/21 at 1630 1414 (Given - Provider: Robyn Lakhani RN) 1418 (Given - Provider: Aretha Sue RN) sodium chloride 0.9% flush 0.5-20 mL 0.5-20 mL, intra-catheter, Every 8 hours scheduled, First dose on Thu10/28/21 at 2300, Flush volume based on line type and size. 0558 (Not Given - Provider: Kitty Martin RN - Reason: IV Infusing)1408 (Given - Provider: Robyn Lakhani RN)2113 (Given - Provider: Kitty Martin RN) 0524 (Given - Provider: Kitty Martin RN)1418 (Given - Provider: Aretha Sue RN)2157 (Not Given - Provider: Selene Ashley RN - Reason: Other - Comment: duplicate order) 0613 (Given - Provider: Selene Ashley RN)1322 (Given - Provider: Mihaela Nails, ZEYNEP) sodium chloride 0.9% flush 5-10 mL 5-10 mL, intra-catheter, Every 12 hours scheduled, First dose on Thu11/05/21 at 2100, Flush volume based on line type, size, and protocol. 203 (Given - Provider: Selene Ashley RN) 0918 (Given - Provider: Mihaela Nails, ZEYNEP) vancomycin (VANCOCIN) capsule 125 mg 125 mg, oral, Daily, First dose (after last reorder) on Thu11/02/21 at 0900, Indications: Clostridioides difficile infection 0857 (Given - Provider: Robyn Lakhani, ZEYNEP) 0840 (Given - Provider: Aretha Sue, RN) 0916 (Given - Provider: Mihaela Nails, ZEYNEP) PRN Medication Order 11/04/2021 11/05/2021 11/06/2021 aluminum-magnesium hydroxide-simethicone (MAALOX) 40-40-4 mg/mL oral suspension 30 mL 30 mL, oral, Every 4 hours PRN, cramping, indigestion, heartburn, Starting on Thu11/04/21 at 0058 0104 (Given - Provider: Kitty Martin, ZEYNEP) 0357 (Given - Provider: Kitty Martin, ZEYNEP) bisacodyL (DULCOLAX) suppository 10 mg 10 mg, rectal, Daily PRN, constipation, If no results 24 hours after polyethylene glycol (MIRALAX). May give bisacodyl tablet if tolerating PO., Starting on Thu10/28/21 at 2229, Indications: constipation bisacodyl EC (DULCOLAX EC) tablet 10 mg 10 mg, oral, Daily PRN, constipation, If no results 24 hours after polyethylene glycol (MIRALAX). May give bisacodyl supp if not tolerating PO), Starting on Thu10/28/21 at 2229, Do not crush, chew, cut, dissolve, open or otherwise manipulate tablet/capsule., Indications: constipation 1418 (Not Given - Provider: Aretha Sue, ZEYNEP - Reason: Patient/family refused) budesonide-formoteroL (SYMBICORT) 160-4.5 mcg/actuation inhaler 2 puff 2 puff, inhalation, 2 times daily PRN (respooler), sob, Starting on Audrey 10/31/21 at 1202, Rinse mouth with water after use. Do not swallow., I /authorizing provider attest that the patient meets the approved [facility] Use Criteria: Yes dextrose (D10W) 10% bolus 250 mL 250 mL, intravenous, at 1,000 mL/hr, Administer over 15 Minutes, Once as needed, blood glucose less than 70 mg/dL, Starting on Thu11/03/21 at 1123, Pre-Op, Indications: Hypoglycemia morphine injection 2 mg 2 mg, intravenous, Administer over 4 Minutes, Every 3 hours PRN, 3rd line for pain, Starting on 11/03/21 at 1129 ondansetron (ZOFRAN) injection 4 mg(Linked Group 1) 4 mg, intravenous, Administer over 2 Minutes, Every 6 hours PRN, nausea, vomiting, if not tolerating PO, Starting on Thu10/28/21 at 2229, Indications: Nausea and Vomiting ondansetron ODT (ZOFRAN-ODT) disintegrating tablet 4 mg(Linked Group 1) 4 mg, oral, Every 6 hours PRN, nausea, vomiting, Starting on Thu10/28/21 at 2229, Indications: Nausea and Vomiting oxyCODONE (ROXICODONE) tablet 10 mg 10 mg, oral, Every 4 hours PRN, 1st line for pain, pain score 5-7, Starting on 11/03/21 at 1129, Indications: Pain 0051 (Given - Provider: Kitty Martin RN)005 (Not Given - Provider: Kitty Martin RN - Reason: Other - Comment: epic error)2108 (Given - Provider: Kitty Martin RN) 0841 (Not Given - Provider: Aretha Sue RN - Reason: Patient/family refused)2036 (Given - Provider: Selene Ashley RN) 0024 (Given - Provider: Selene Ashley, ZEYNEP)0918 [facility]: Mihaela Nails RN) oxyCODONE (ROXICODONE) tablet 5 mg 5 mg, oral, Every 4 hours PRN, 2nd line for pain, Starting on Thu11/04/21 at 1019, Indications: Pain 1414 (Given - Provider: Robyn Lakhani, ZEYNEP) 2031 (Not Given - Provider: Selene Ashley RN - Reason: Patient/family refused) polyethylene glycol (MIRALAX) packet 17 g 17 g, oral, Daily PRN, constipation, Starting on Thu10/28/21 at 2229, Indications: constipation ramelteon (ROZEREM) tablet 8 mg 8 mg, oral, Nightly PRN, sleep, Starting on Thu10/30/21 at 0016, Indications: Sleep-Onset Insomnia 0051 (Given - Provider: Kitty Martin RN)0054 (Not Given - Provider: Kitty Martin RN - Reason: Other - Comment: epic error) 0112 (Given - Provider: Kitty Martin RN) 0028 (Given - Provider: Selene Ashley RN) sodium chloride 0.9% flush 0.5-20 mL 0.5-20 mL, intra-catheter, As needed, line care, Starting on Thu10/28/21 at 2229, Flush volume based on line type and size. Flush before and after each use. sodium chloride 0.9% flush 5-20 mL 5-20 mL, intra-catheter, As needed, line care, with each use, Starting on Thu11/05/21 at 1624, Flush volume based on line type, size, and protocol. tiZANidine (ZANAFLEX) tablet 4 mg 4 mg, oral, Every 6 hours PRN, muscle spasms, Starting on Thu10/30/21 at 0834, Administer on an empty stomach, Indications: Muscle Spasm 0444 (Given - Provider: Kitty Martin RN) Linked Groups Order Group 1: ondansetron ODT (ZOFRAN-ODT) disintegrating tablet 4 mgJump to med 4 mg, oral, Every 6 hours PRN, nausea, vomiting, Starting on Thu10/28/21 at 2229, Indications: Nausea and Vomiting Or ondansetron (ZOFRAN) injection 4 mgJump to med 4 mg, intravenous, Administer over 2 Minutes, Every 6 hours PRN, nausea, vomiting, if not tolerating PO, Starting on Thu10/28/21 at 2229, Indications: Nausea and Vomiting documented in this encounter Orders Medications Ordered That Antoine ht Not Have Been Administered Count Last Ordered Date First Ordered Date cefTRIAXone (ROCEPHIN) 2,000 mg/20 mL in sterile water (premix) 2,000 mg 1 11/06/2021 lidocaine PF (XYLOCAINE) 10 mg/mL (1 %) preservative free injection 10-20 mg 1 11/05/2021 sodium chloride 0.9% flush 5-10 mL 1 2021 sodium chloride 0.9% flush 5-20 mL 1 2021 aluminum-magnesium hydroxide -simethicone (MAALOX) 40-40-4 mg/mL oral suspension 30 mL 1 11/04/2021 oxyCODONE (ROXICODONE) tablet 5 mg 6 202110/29/2021 polyethylene glycol (MIRALAX) packet 17 g 2 11/04/2021 10/28/2021 albuterol 2.5 mg /3 mL (0.08 3 %) nebulizer solution 2.5 mg 2 11/03/2021 10/29/2021 dextrose (D10W) 10% bolus 250 mL 1 11/04/19 diphenhydrAMINE (BENADRYL) i njection 12.5 mg 2 11/03/2021 10/29/2021 fentaNYL (SUBLIMAZE) preserv ative free injection 25 mcg 2 11/03/2021 10/29/2021 haloperidol (HALDOL) injection 1 mg 2 11/0310/29/2021 HYDROmorphone (DILAUDID) injection 0.4 mg 2 11/03/2021 10/29/2021 insulin lispro (HumaLOG, ADM ELOG) 100 unit/mL injection 1-5 Units 2 11/03/2021 10/29/2021 labetaloL (NORMODYNE,TRANDAT E) injection 5 mg 2 11/03/2021 10/29/2021 meperidine (DEMEROL) preserv ative free injection 12.5 mg 2 11/03/2021 10/29/2021 morphine injection 2 mg 2 11/03/2021 08/05/2021 naloxone (NARCAN) 0.4 mg/mL injection 0.04-0.4 mg 2 11/03/2021 10/29/2021 ondansetron (ZOFRAN) injection 4 mg 3 11/0310/28/2021 oxyCODONE (ROXICODONE) tablet 10 mg 2 11/0310/29/2021 oxyCODONE (ROXICODONE) tablet 15 mg 1 11/03 racepinephrine (ASTHMANEFRIN ) 2.25 % nebulizer solution 0.5 mL 2 11/03/2021 10/29/2021 sodium chloride 0.9% infusion 1 11/03/2021 ioversoL (OPTIRAY 350) syringe 100 mL 1 08/2021 meropenem (MERREM) 1,000 mg in sodium chloride 0.9% 100 mL IVPB 1 11/02/2021 ertapenem (INVanz) injection 1,000 mg 1 07/2021 vancomycin (VANCOCIN) capsule 125 mg 6 07/202110/29/2021 budesonide-formoteroL (SYMBI JOHNNY) 160-4.5 mcg/actuation inhaler 2 puff 3 10/31/2021 10/30/[address] (PROTONIX) e xtended release tablet 40 mg 1 10/30/2021 polyvinyl alcohol (LIQUIFILM TEARS) 1.4 % ophthalmic solution 1 drop 1 10/30/2021 pregabalin (LYRICA) capsule 150 mg 2 2021 pregabalin (LYRICA) capsule 300 mg 3 2021 ramelteon (ROZEREM) tablet 8 mg 1 2 rOPINIRole (REQUIP) tablet 2 mg 3 2 tiZANidine (ZANAFLEX) tablet 4 mg 1 022 acetaminophen (TYLENOL) tablet 1,000 mg 1 0 10/29/2021 ceFAZolin (ANCEF) injection 1 10/29/2021 cefepime (MAXIPIME) 1,000 mg in sodium chloride 0.9% 100 mL IVPB 1 10/29/2021 dextrose 5% and sodium chlor clare 0.45% with potassium chloride 20 mEq/L infusion (premix) 1 10/29/2021 HYDROmorphone (DILAUDID) injection 0.2 mg 1 10/29/2021 Lactated Ringer's (LR) infusion 2 2 lidocaine PF (XYLOCAINE) 10 mg/mL (1 %) preservative free injection 2-10 mg 1 10/29/2021 morphine injection 4 mg 1 10/29/2021 polymyxin B injection 1 10/29/2021 sodium chloride 0.9% flush 0.5-20 mL 3 0804/202110/28/2021 sodium chloride 0.9% irrigation 1 2 vancomycin (VANCOCIN) 1,000 mg, gentamicin (GARAMYCIN) 80 mg in sodium chloride 0.9% 1,000 mL solution 1 10/29/2021 vancomycin (VANCOCIN) solution 1 10/29/2021 vancomycin 1250 mg/250 mL in sodium chloride 0.9% (premix) 1,250 mg 2 10/29/2021 acetaminophen (TYLENOL) 32 m g/mL oral solution 650 mg 1 10/28/2021 acetaminophen (TYLENOL) suppository 650 mg 1 10/28/2021 acetaminophen (TYLENOL) tablet 650 mg 1 03/2021 bisacodyL (DULCOLAX) suppository 10 mg 1 bisacodyl EC (DULCOLAX EC) tablet 10 mg 1 0 10/28/2021 Carrier Fluids for Secondary Infusion - 0.9% Sodium Chloride 1 10/28/2021 ondansetron ODT (ZOFRAN-ODT) disintegrating tablet 4 mg 1 10/28/2021 Lab Orders Without Results Count Last Ordered D ate First Ordered Date POCT GLUCOSE DEVICE 6 11/04/2021 11/03/19 22 Nursing Count Last Ordered Date First Orde red Date FOLLOW UP WITH ESTABLISHED PROVIDER 1 11/06 WEIGH PATIENT 1 10/28/2021 Consult Count Last Ordered Date First Orde red Date IP CONSULT TO NUTRITION SERVICES 1 11/04/19 22 Admission Count Last Ordered Date First Orde red Date ADMIT TO INPATIENT 1 10/28/2021 Transfer Count Last Ordered Date First Orde red Date TRANSFER PATIENT TO NEW UNIT 1 10/29/2021 Discharge Count Last Ordered Date First Orde red Date DISCHARGE PATIENT 1 11/06/2021 CORE MEASURES Count Last Ordered Date First Ord ered Date REASON FOR NO VTE PROPHYLAXI S - HOSPITAL ADMISSION - MEDICATIONS 1 10/28/2021 documented in this encounter Care Teams Occupational Health Rn Relationship Specialty Start Date End Date Anil Gupta MD [address] [place] [address] PCP - General Internal Medicine 04/19/21 Anil Gupta MD [address] [place] [address] Internal Medicine 04/19/21 documented as of this encounter
--- OUTSIDE RECORDS SUMMARY | 2024-03-19 07:30 | XMS_ITS | Encounter Summary ---
Author Organization [facility] Healthcare Address [address] [place] [address] Care Team Providers Care Work Order Clerk Name Role Phone Anil Gupta MD Primary Care Provider Anil Gupta MD Unavailable [phone] Encounter Details Date Type Department Care Team (Late st Contact Info) Description 11/01/2021 Orders Only 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 Young today regarding patient's potential discharge home and we discussed that [facility] [place] patient for start of care on Thursday11/05/21; This would allow patientto discharge on Thursday11/04/21 after patient either receives all doses at [facility] or is educated to dose his p.m. dose independently. [facility] crm coordinator nurses will be on site Thursday11/04/21 and available to educate patient and/or caregiver. Currently patient is receiving cefepime 1gm iv every 8 hours; he will have rx copay of $94.41 every 7 days per his medicare D rx plan if this ends up being his discharge orders; he will also have a supply cost of $15 per day for supplies not covered by hisrx plan; this would be a total of $199.41 every 7 days. I have confirmed with [facility] infusion pharmacythat after the first week of copays; they can finance any remaining copay amounts at zero percent interest and set up a payment plan to work in his budget for the out of pocket expenses. If the medication orders should change; we can run the new med and determine exact rx copay amounts. The supply costs would remain the same for monotherapy with iv antibiotic. [facility] infusion nurse referral coordinators will continue to follow on site and be available for education prior to discharge as needed. Eddie Nichole [facility]. [facility] Home Infusion Pharmacist Liaison Electronically signed by Eddie Nichole [facility] at 11/01/2021 6:06 PM CDT documented in this encounter Plan of Treatment Not on file documented as of this encounter Visit Diagnoses Not on filedocumented in this encounter Care Teams Work Order Clerk Relationship Specialty Start Date End Date Anil Gupta MD [address] [place] [address] PCP - General Internal Medicine 04/19/21 Anli Gupta MD [address] [place] [address] Internal Medicine 04/19/21 documented as of this encounter
--- OUTSIDE RECORDS SUMMARY | 2024-03-19 07:30 | XMS_ITS | Encounter Summary ---
Author Organization [facility] Healthcare Address [address] [place] [address] Care Team Providers Care Preparation Department Supervisor Name Role Phone Anil Gupta MD Primary Care Provider [phone] Anil Gupta MD Unavailable [phone] Encounter Details Date Type Department Care Team (Late st Contact Info) Description 10/31/[address] [facility] Case Management [facility] [place] [place] [address] Eddie Nichole [facility] Social History Tobacco Use Types Packs/Day Years [...] often do you attend chur ch or taoism services? 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 Young regarding this patient; [facility] infusion pharmacy can provide iv medication and supplies if needed upon discharge and would plan to deliver to patient's home onday of discharge as of now; I have reached out for nursing availability in patient's zip code and [facility] nursing has availability to see patient on Thursday11/05/21 as of now; this would allow patient to discharge home Thursday11/04/21 after either receiving doses at [facility] or having education and dosing a dose or two until nursing can see him for start of care visit on 11/05/21. I communicated this to Dr. Young and adult protective caseworker and will adjust nurse visit and medication delivery as needed and able depending on staffing availability in this patient's zip code in [place]. Currently patient is anticipated to not be ready for discharge this week or weekend. I will continue to follow patient's clinical chart. Eddie Nichole [facility]. [facility] Home Infusion Pharmacist Liaison documented in this encounter Plan of Treatment Not on file documented as of this encounter Visit Diagnoses Not on filedocumented in this encounter Care Teams Preparation Department Supervisor Relationship Specialty Start Date End Date Anil Gupta MD [address] [place] [address] PCP - General Internal Medicine 04/19/21 Anil Gupta MD [address] [place] [address] Internal Medicine 04/19/21 documented as of this encounter
--- OUTSIDE RECORDS SUMMARY | 2024-03-19 07:30 | XMS_ITS | Encounter Summary ---
Author Organization [facility] Healthcare Address [address] [place] [address] Care Team Providers Care Paunch Trimmer Name Role Phone Anil Gupta MD Primary Care Provider [phone] Anil Gupta MD Unavailable Reason for Visit * Auth/Cert Specialty Diagnoses / Procedures Referred By Contac t Referred To Contact Diagnoses Infection of lumbar spine (CMS/HCC) (HCC) Post Op Wound Infection/ Ortho Procedures n/a Referral ID Status Reason Start Date Expiration Date Visits Re quested Visits Authorized [id number] 1 1 Encounter Details Date Type Department Care Team (Late st Contact Info) Description 11/03/2021 7:54 AM CDT Anesthesia Event [facility] Operating Room [facility] [place] [id number] Ajit Castellano DO [address] [place] [address] Jessee Marsh MD [address] [place] [id number] Anesthesia Record Procedure Summary Procedure Name Responsible Anesthesiologist Anesthesia Start Time Anesthesia Stop Time INCISION AND DRAINAGE - BACK (Back) Ajit Castellano DO 11/03/21 0754 11/03/21 0952 Events Date Time Event Comment 11/03/2021 0721 0754 An Start 0757 In Room 0757 An Start Data 0800 An Induction The patient was reevaluated immediately before moderate or deep sedation use and before anesthesia induction. 0805 An Intubation 0807 IV Placed 0811 Patient Positioned Prone 0813 Anesthesia Ready 0834 Incision Start 0834 Proc Start 0939 An Extubation 0941 an stop data 0943 Proc Fin 0945 Out of Room 0952 Handoff to RN I completed my handoff [...] disposition at the time of handoff: PACU 0952 An Stop Meds Name Total fentaNYL 100 mcg lidocaine (CARDIAC) syringe 2 % 4 mL propofol 150 mg rocuronium 60 mg phenylephrine 100 mcg/mL 600 mcg glycopyrrolate 0.6 mg neostigmine 3 mg ondansetron 4 mg dexamethasone 4 mg/ml 10 mg meropenem (MERREM) 1,000 mg in sodium ch loride 0.9% 100 mL IVPB 1,000 mg HYDROmorphone 2 mg/mL 1 mg LR 1,000 mL * Agents Name O2 Air Sevoflurane Desflurane Inspired Desflurane Inspired Sevoflurane * Blood No blood administrations on file. Lines, Drains, and Airways Type Details Placement Removal RETIRED Surgical Site 10/28/21; 2244; Ye s; Mid-line; Back; 11/05/21 (duplicate entry); 1013 10/28/21 2245 by Sobia Diamond RN 11/05/21 1013 by Aretha Sue RN Closed/Suction/Open Drain 10/29/21; 1849; No; Inferior, Midline; Back; Accordion; (04/06 ); Other (Comment) (removed by ROTARY OPERATOR this am) 10/29/21 1849 by Jodie Amaya RN 11/05/21 0800 by Aretha Sue RN Peripheral IV Placement Date: 11/01/21; Placement Time: 1700; Catheter Size: 22 G; Orientation: Anterior, Left, Proximal; Location: Forearm; Site Prep: Alcohol, Chlorhexidine; Technique: Anatomical landmarks; Inserted by: Dmitri ADHIKARI; Insertion Attempts: 1; Patient Tolerance: Tolerated well; Removal Date: 11/05/21; Removal Time: 101; Removal Reason: Drainage 11/01/21 1700 by Douglas Taylor 11/05/21 010 by Kitty Martin, ZEYNEP RETIRED Negative Pressure Wound Therapy 11/03/21; (present on arrival to PACU, pat in place); Back; 11/26/21 (not on pt.); 1100 11/03/21 0000 by Gayle Camargo RN 11/26/21 1100 by Neha Borrego RN Closed/Suction/Open Drain 11/03/21; (present on arrival to PACU, hemovac in place); Inferior, Left; Back; Other (Comment) (removed by ROTARY OPERATOR this am) 11/03/21 0000 by Gayle Camargo RN 11/05/21 1035 by Aretha Sue RN Peripheral IV Placement Date: 11/03/21; Placement Time: 806; Catheter Size: 18 G; Orientation: Left; Location: Forearm; Site Prep: Chlorhexidine; Technique: Anatomical landmarks; Inserted by: MD Nona; Insertion Attempts: 1; Patient Tolerance: Tolerated well; Removal Date: 11/03/21; Removal Time: 1915; Removal Reason: Per patient/family request 11/03/21 08 by Margot Medina CRNA 11/03/21 191 by Kitty Martin RN ETT Placement Date: 11/03/21; Placement Time: 823 (created via procedure documentation); Mask Ventilation: 1; Technique: Direct laryngoscopy; Type: ETT - single; Single Lumen Tube Size: 8 mm; Cuffed: Yes; Laryngoscope: Renaldo; Blade Size: 4; Location: Oral; Grade View: Grade I; Insertion Attempts: 1; Placement Verification: Auscultation, Capnometry; Removal Date: 11/03/21; Removal Time: 93811/03/21 08 by Margot Medina CRNA 11/03/21 09 by Margot Medina CRNA RETIRED Surgical Site 11/03/21; 0950; Bronson ck (pat dressing applied at end of case); 11/29/21 11/03/21 0950 by Gayle Camargo RN 11/29/21 0000 by Roxana Hardin RN documented in this encounter Social History Tobacco [...] How often do you attend chur or pentecostalism services? 1 to 4 times per year 10/29/2021 Do you belong to any clubs o r organizations such as scientologist groups, unions, fraternal or athletic groups, or [...] on file Legal Sex Male 12:56 PM SLOT KEY PERSON Gender Identity Male 05/23/2021 12:08 PM SLOT KEY PERSON Sexual Orientation Straight 05/23/2021 12 :08 PM SLOT KEY PERSON documented as of this encounter OR Notes * Anesthesia Postprocedure Evaluation - Ajit Castellano DO - 11/03/2021 12:40 PM CDT Patient: Douglas Horn Procedure Summary Date: 11/03/21 Room / Location: [facility] / [facility] Anesthesia Start: 753 Anesthesia Stop: 951 Procedure: INCISION AND DRAINAGE - BACK (N/A Back) Diagnosis: (Back Infection) Surgeons: Milad Garcia MD Responsible Provider: Ajit Castellano DO Anesthesia Type: general ASA Status: 3 - Emergent Anesthesia Type: general Last vitals BP 90/64 Pulse 68 Temp 36.4 ??C (97.5 ??F) (Temporal) Resp 11 SpO2 100% Anesthesia Post Evaluation Patient location during evaluation: PACU Patient participation: complete - patient participated Level of consciousness: follows simple commands and fully awake Pain management: adequate Airway patency: adequate Cardiovascular status: acceptable and hemodynamically stable Respiratory status: acceptable Hydration status: acceptable Pt is: normothermic Nausea/Vomiting status: none No complications documented. * Anesthesia Procedure Notes - Margot Medina CRNA - 11/03/2021 8:24 AM CDTAssociated Order(s): Airway Airway Patient location: OR Urgency: elective Indications for airway management: anesthesia Difficult airway: no Staff: Supervising provider: Ajit Castellano DO Placed by: CUSTOMER CONTACT SPECIALIST: Margot Medina CRNA Emergent airway documentation: Risks and benefits discussed: yes Consent obtained: yes Consent given by: patient Airway prep: Preoxygenated: yes Patient position: sniffing Mask difficulty assessment: 1 - vent by mask Sedation level during airway: GA Final airway details: Final airway type: endotracheal airway Tube type: ETT ETT size: 8.0 mm Cuffed: yes Technique used for successful ETT placement: direct laryngoscopy Devices/Methods used in placement: stylet Insertion site: oral Blade type: Renaldo Blade size: 4 Cormack-Lehane (direct): grade I - full view of glottis Cuff volume: 10 mL Cuff inflated with: air ETT to teeth: 24 cm Placement verified by: auscultation and CO2 detection Airway secured with: silk tape Number of attempts: 1 * Anesthesia Preprocedure Evaluation - Jessee Marsh MD - 11/02/2021 1:16 PM CDT Images from the original note were not included. Anesthesia Evaluation Douglas Horn is a 71 y.o. male who had L5-S1 Transforaminal Lumbar Interbody Fusion vs PosteriorLumbar Fusion by Jayy Granger MD on 10/02/21, now for wound I&D Patient is up to date on COVID vaccine and booster. NO preop COVID testing required. Moderna series Dose 1 05/23/2020 (Moderna SARS-CoV-2 Vaccination (12+ YRS)) Dose 2 06/20/2020 (Moderna SARS-CoV-2 Vaccination (12+ YRS)) Booster dose 11/21/2020 (Moderna SARS-CoV-2 Vaccination (12+ YRS)) Procedure(s): INCISION AND DRAINAGE - BACK Pre-Op Diagnosis Codes: * Lumbar radiculopathy [M54.16] HISTORY Past Medical History Information obtained from: patient and chart. Neurological Neuro/Psych system: negative Cardiovascular Cardiac system: negative Comments: Runs low BP at night and when first up then low normal. Respiratory + Asthma (patient denies asthma, reports inhalers from previous pseudomonas resp infection. He has not required albuterol) Dyspnea frequency: never. Rescue inhaler use: never. Hospitalizations/ER in the last year: 0. Pertinent negatives: sleep apnea (HALLIE); no O2 use outside the hospital and non-smoker Hepatic / Heme Hepatic/Heme system: negative Gastrointestinal + GERD - on daily therapy. Asymptomatic. Renal / Renal/ system: negative Musculoskeletal/Pain + Chronic pain - back pain. + Osteoarthritis Comments: Lumbar radiculopathy Endocrine / Other + Infectious disease (history of pseudomanas resp infection) Pertinent negatives: diabetes mellitus; thyroid disease and rheumatological disease Functional Capacity Functional capacity: 4-6 METs Review of Systems + chronic pain + numbness/tingling + vision loss (reading glasses) Pertinent negatives: productive cough; wheezing; SOB; recent cold/flu; fever; chest pain; palpitations; syncope; dizziness; hard of hearing; heartburn; nausea; dysphagia; diarrhea and dentures/partials Patient Active Problem List Diagnosis ??? Hay fever ??? Lumbar stenosis without neurogenic claudication ??? Lumbar radiculopathy ??? Infection of lumbar spine (CMS/HCC) ([facility]) ??? Severe sepsis ([facility]) ??? Infection following a procedure, deep incisional surgical site, initial encounter ??? History of Clostridium difficile colitis ??? GERD without esophagitis ??? Hyponatremia ??? SIADH (syndrome of inappropriate ADH production) (CMS/HCC) ([facility]) Past Medical History: Diagnosis Date ??? Arthritis ??? Asthma ??? GERD (gastroesophageal reflux disease) ??? Lead poisoning ??? Lumbar radiculopathy ??? Peripheral neuropathy ??? Pseudomonas respiratory infection comes and goes - on owner/operator antibiotics to prevent further mucous build up ??? Toxic effect of mercury and its compounds, accidental (unintentional), initial encounter Past Surgical History: Procedure Laterality Date ??? MICRODISCECTOMY LUMBAR 06/03/2021 S/P Right L5-S1 Microdiscectomy ([place]) No Known Allergies Taking? Last Dose Start Date End Date Provider albuterol HFA (PROVENTIL HFA,VENTOLIN HFA,PROAIR HFA) 90 mcg/actuation inhaler -- -- Carin Chirinos MD budesonide-formoteroL (SYMBICORT) 160-4.5 mcg/actuation inhaler -- -- Carin Chirinos MD fluticasone propionate (FLONASE) 50 mcg/actuation nasal spray -- -- Carin Chirinos MD ipratropium (ATROVENT) 42 mcg (0.06 %) nasal spray -- -- Carin Chirinos MD LYRICA 150 mg capsule 03/17/18 -- Carin Chirinos MD oxyCODONE-acetaminophen (Percocet) 5-325 mg per tablet () 10/18/21 11/01/21 Jayy Granger MD Take 1-2 tablets by mouth every 4 (four) hours as needed for pain for up to 14 days Maximum 6 tablets/day pregabalin (LYRICA) 300 mg capsule -- -- ProviderCarin MD rOPINIRole (REQUIP) 2 mg tablet -- -- Carin Chirinos MD tiZANidine (ZANAFLEX) 4 mg tablet 10/11/21 -- Jayy Granger MD Take 1 tablet (4 mg total) by mouth every 6 (six) hours as needed for muscle spasms valACYclovir (VALTREX) 500 mg tablet -- -- Carin Chirinos MD vancomycin (VANCOCIN) 125 mg capsule -- -- ProviderCarin MD No current facility-administered medications for this visit. No current outpatient medications on file. Facility-Administered Medications Ordered in Other Visits: ??? acetaminophen (TYLENOL) tablet 1,000 mg, 1,000 mg, oral, Q8H JESSENIA, 1,000 mg at 11/02/21 0659 ??? bisacodyL (DULCOLAX) suppository 10 mg, 10 mg, rectal, Daily PRN ??? bisacodyl EC (DULCOLAX EC) tablet 10 mg, 10 mg, oral, Daily PRN ??? budesonide-formoteroL (SYMBICORT) 160-4.5 mcg/actuation inhaler 2 puff, 2 puff, inhalation, BIDPRN (RT) ??? meropenem (MERREM) 1,000 mg in sodium chloride 0.9% 100 mL IVPB, 1,000 mg, intravenous, Q8H, Last Rate: 200 mL/hr at 11/02/21 0858, 1,000 mg at 11/02/21 0858 ??? morphine injection 2 mg, 2 mg, intravenous, Q4H PRN ??? ondansetron ODT (ZOFRAN-ODT) disintegrating tablet 4 mg, 4 mg, oral, Q6H PRN OR ondansetron(ZOFRAN) injection 4 mg, 4 mg, intravenous, Q6H PRN ??? oxyCODONE (ROXICODONE) tablet 10 mg, 10 mg, oral, Q4H PRN, 10 mg at 11/01/21 2352 ??? oxyCODONE (ROXICODONE) tablet 5 mg, 5 mg, oral, Q4H PRN, 5 mg at 10/30/21 0822 ??? pantoprazole DR (PROTONIX) extended release tablet 40 mg, 40 mg, oral, Daily, 40 mg at ??? polyethylene glycol (MIRALAX) packet 17 g, 17 g, oral, Daily PRN ??? polyvinyl alcohol (LIQUIFILM TEARS) 1.4 % ophthalmic solution 1 drop, 1 drop, each eye, TID, 1 drop at 11/02/21 0859 ??? pregabalin (LYRICA) capsule 150 mg, 150 mg, oral, Daily, 150 mg at 11/02/21 0858 ??? pregabalin (LYRICA) capsule 300 mg, 300 mg, oral, Nightly, 300 mg at 11/01/21 1745 ??? ramelteon (ROZEREM) tablet 8 mg, 8 mg, oral, Nightly PRN, 8 mg at 10/30/21 0021 ??? rOPINIRole (REQUIP) tablet 2 mg, 2 mg, oral, Nightly, 2 mg at 11/01/21 1745 ??? sodium chloride 0.9% flush 0.5-20 mL, 0.5-20 mL, intra-catheter, Q8H JESSENIA, 10 mL at 11/02/21 0700 ??? sodium chloride 0.9% flush 0.5-20 mL, 0.5-20 mL, intra-catheter, PRN ??? tiZANidine (ZANAFLEX) tablet 4 mg, 4 mg, oral, Q6H PRN ??? vancomycin (VANCOCIN) capsule 125 mg, 125 mg, oral, Daily, 125 mg at 11/02/21 0858 Social History Tobacco Use Smoking Status Never Smoker Smokeless Tobacco Never Used Alcohol Use: Not At Risk ??? Frequency of Alcohol Consumption: 4 or more times a week ??? Average Number of Drinks: 1 or 2 ??? Frequency of Binge Drinking: Never Substance and Sexual Activity Drug Use No No family history on file. PAT Physical Exam Airway Exam: Mallampati: see comments Cervical ROM: FROM TM distance: 3.5 Patient presents with fay and mustache. (NC/AT) Cardiovascular Exam: Rate: regular Rhythm: regular Negative for Murmur Negative for peripheral edema Pulmonary Exam: LCTA, bilat Wheezing negative EENT Exam: trachea midline (No audible carotid bruit) Dental Exam: Appears intact Skin Exam: Skin is warm and dry. Abdominal exam: Abdomen is soft. Bowel sounds are present. Current state: Patient's current state is cooperative and interactive. Additional comments: 71 y.o. male with no clinical risk factors per ACC/AHA guidelines and moderatefunctional capacity for intermediate risk procedure. Patient declined offer of second provider presence during PE. Pre- op instructions reviewed and printed copy given to patient. There were no vitals filed for this visit. *CBC Lab Results Component Value Date WBC 6.1 11/02/2021 HGB 10.3 (L) 11/02/2021 HCT 31.4 (L) 11/02/2021 LABPLAT 418 (H) 11/02/2021 MPV 8.3 (L) 11/02/2021 RBC 3.57 (L) 11/02/2021 MCV 88.0 11/02/2021 MCH 28.9 11/02/2021 MCHC 32.8 11/02/2021 RDWCV 13.1 11/02/2021 RDWSD 42.7 11/02/2021 NRBCABS 0.00 11/02/2021 Type&Screen Lab Results Component Value Date ABORH A Negative 10/29/2021 IDCOOMB Negative 10/29/2021 hgbA1C Lab Results Component Value Date HGBA1C 5.4 10/02/2021 Vitamin D Lab Results Component Value Date 25HYDROVITD 52 10/02/2021 SEC evaluation complete. DOS Physical Exam Medical history, medications, and allergies reviewed. Attestation: With today's edits, I endorse the findings of the anesthesia pre-evaluation assessment dated: 10/29/2021. Airway Exam: Mallampati: II Cervical ROM: FROM TM distance: >4 Cardiovascular Exam: Rate: regular Rhythm: regular Pulmonary Exam: LCTA, bilat Dental Exam: Appears intact Current state: Patient's current state is cooperative. Anesthesia Plan ASA 3- emergent My patient is approved for the Anesthesia Controlled Medication protocol when under care of a CUSTOMER CONTACT SPECIALIST Planned anesthesia: General Team communication plan: oral ET tube Induction: Induction: intravenous. Postoperative Plan: Postoperative administration opioids intended. No postoperative mechanical ventilation intended. Patient's planned disposition post procedure is Floor. Informed Consent: Anesthesia plan and risks discussed with patient. Consent and Attending signature: I and/or my designee have discussed the anesthesia plan, benefits, possible alternatives, parental presence at time of induction (if indicated), and clinically relevant risks that may include dental injury, unintentional awareness, and/or other complications. The patient and/or parent/legal guardian understand, and agree to proceed. All questions answered. documented in this encounter Plan of Treatment Not on file documented as of this encounter Procedures Procedure Name Priority Date/Time Associated Diagnosis Comments NV AN PROCEDURE PLACEHOLDER Routine 11/03/2021 8:24 AM CDT NV AN ELECTIVE ENDOTRACHEAL AIRWAY Routine 11/03/2021 8:24 AM CDT documented in this encounter Results * NV AN ELECTIVE ENDOTRACHEAL AIRWAY, NV AN PROCEDURE PLACEHOLDER (11/03/2021 8:24 AM CDT) Narrative Margot Medina CRNA - 11/03/2021 8:24 AM CDT Margot Medina CRNA ? 11/03/2021 ??8:24 AM Airway Patient location: OR Urgency: elective Indications for airway management: anesthesia Difficult airway: no Staff: Supervising provider: Ajit Castellano DO Placed by: CUSTOMER CONTACT SPECIALIST: Margot Medina CRNA Emergent airway documentation: Risks and benefits discussed: yes Consent obtained: yes Consent given by: patient Airway prep: Preoxygenated: yes Patient position: sniffing Mask difficulty assessment: 1 - vent by mask Sedation level during airway: GA Final airway details: Final airway type: endotracheal airway Tube type: ETT ETT size: 8.0 mm Cuffed: yes Technique used for successful ETT placement: direct laryngoscopy Devices/Methods used in placement: stylet Insertion site: oral Blade type: Renaldo Blade size: 4 Cormack-Lehane (direct): grade I - full view of glottis Cuff volume: 10 mL Cuff inflated with: air ETT to teeth: 24 cm Placement verified by: auscultation and CO2 detection Airway secured with: silk tape Number of attempts: 1 us Ajit Castellano DO ANESTHESIA ORDERABLES Final Result documented in this encounter Visit Diagnoses Not on filedocumented in this encounter Administered Medications Inactive Administered Medications - up to 3 most recent administrations Medication Order MAR Action Action Date Dose Rate Site dexAMETHasone (DECADRON) 4 mg/mL injection intravenous, Administer over 2 Minutes, As needed, Starting on [place] 11/03/21 at 0816, Anesthesia Intra-op Given 11/03/2021 8:16 AM CDT 10 mg fentaNYL (SUBLIMAZE) preservative free injection intravenous, As needed, Starting on [place] 11/03/21 at 0759, Anesthesia Intra-op Given 11/03/2021 7:59 AM CDT 100 mcg glycopyrrolate (ROBINUL) injection intravenous, Administer over 1 Minutes, As needed, Starting on [place] 11/03/21 at 0815, Anesthesia Intra-op Given 11/03/2021 9:31 AM CDT 0.4 mg Given 11/03/2021 8:15 AM CDT 0.2 mg HYDROmorphone (DILAUDID) injection intravenous, Administer over 2 Minutes, As needed, Starting on [place] 11/03/21 at 0833, Anesthesia Intra-op Given 11/03/2021 9:29 AM CDT 0.25 mg Given 11/03/2021 9:17 AM CDT 0.25 mg Given 11/03/2021 8:33 AM CDT 0.5 mg Lactated Ringer's (LR) infusion intravenous, Continuous PRN, Starting on [place] 11/03/21 at 0754, Anesthesia Intra-op New Bag 11/03/2021 9:18 AM CDT New Bag 11/03/2021 7:54 AM CDT lidocaine (cardiac) (XYLOCAINE) preservative free injection intravenous, As needed, Starting on [place] 11/03/21 at 0800, Anesthesia Intra-op, Indications: Ventricular ArrhythmiasIndications:Ventricula r Arrhythmias Given 11/03/2021 8:00 AM CDT 4 mL meropenem (MERREM) 1,000 mg in sodium chloride 0.9% 100 mL IVPB 1,000 mg, intravenous, at 200 mL/hr, Administer over 30 Minutes, Every 8 hours, First dose on 11/02/21 at 0900, Mini-Bag Plus bag, Indications: Bone/Joint InfectionIndications:Bone/Joint Infection New Bag 11/06/2021 1:56 AM CDT 1,000 mg 200 mL/hr New Bag 11/05/2021 6:20 PM CDT 1,000 mg 200 mL/hr New Bag 11/05/2021 8:47 AM CDT 1,000 mg 200 mL/hr neostigmine injection intravenous, Administer over 3 Minutes, As needed, Starting on [place] 11/03/21 at 0931, Anesthesia Intra-op Given 11/03/2021 9:31 AM CDT 3 mg ondansetron (ZOFRAN) injection intravenous, Administer over 2 Minutes, As needed, Starting on [place] 11/03/21 at 0816, Anesthesia Intra-op Given 11/03/2021 8:16 AM CDT 4 mg phenylephrine (BERTHA-SYNEPHRINE) 1 mg/10 mL (100 mcg/mL) in sodium chloride 0.9% (premix) intravenous, As needed, Starting on [place] 11/03/21 at 0820, Anesthesia Intra-op Given 11/03/2021 9:02 AM CDT 100 mcg Given 11/03/2021 8:54 AM CDT 100 mcg Given 11/03/2021 8:43 AM CDT 100 mcg propofoL (DIPRIVAN) 10 mg/mL IV intravenous, As needed, Starting on [place] 11/03/21 at 0801, Anesthesia Intra-op Given 11/03/2021 8:01 AM CDT 150 mg rocuronium (ZEMURON) injection intravenous, As needed, Starting on [place] 11/03/21 at 0809, Anesthesia Intra-op Given 11/03/2021 8:09 AM CDT 10 mg Given 11/03/2021 8:02 AM CDT 50 mg documented in this encounter Care Teams Paunch Trimmer Relationship Specialty Start Date End Date Anil Gupta MD [address] [place] [address] PCP - General Internal Medicine 04/19/21 Anil Gupta MD [address] [facility] [address] [place] [address] Internal Medicine 04/19/21 documented as of this encounter
--- OUTSIDE RECORDS SUMMARY | 2024-03-19 07:30 | XMS_ITS | Encounter Summary ---
Author Organization [facility] Healthcare Address [address] [place] [address] Care Team Providers Care Stonecutter Name Role Phone Anil Gupta MD Primary Care Provider [phone] Anil Gupta MD Unavailable [phone] Reason for Visit * Auth/Cert Specialty Diagnoses / Procedures Referred By Contac t Referred To Contact Diagnoses Infection of lumbar spine (CMS/HCC) (HCC) Post Op Wound Infection/ Ortho Procedures n/a Referral ID Status Reason Start Date Expiration Date Visits Re quested Visits Authorized [id number] 1 1 Encounter Details Date Type Department Care Team (Late st Contact Info) Description 10/29/2021 5:43 PM CDT Anesthesia Event [facility] Operating Room [facility] [place]note 2][address] [place] [address] Kitty Campa MD [address] [facility] [place] [address] Zachary Acevedo MD [address] [facility] [place] [address] Anesthesia Record Procedure Summary Procedure Name Responsible Anesthesiologist Anesthesia Start Time Anesthesia Stop Time INCISION AND DRAINAGE BACK WOUND (Back) Kitty Campa MD 10/29/21 1743 10/29/21 1938 Events Date Time Event Comment 10/29/2021 1743 In Room 1743 An Start 1743 An Start Data 1746 An Induction The patient was reevaluated immediately before moderate or deep sedation use and before anesthesia induction. 1751 An Intubation 1758 Patient Positioned Prone 1809 1809 Proc Start 1809 Incision Start 1913 Proc Fin 1917 An Extubation 1921 an stop data 1922 Out of Room 1929 Handoff to RN I completed my handoff [...] disposition at the time of handoff: PACU 1937 An Stop Meds Name Total fentaNYL 100 mcg lidocaine (CARDIAC) syringe 2 % 5 mL propofol 150 mg succinylcholine 100 mg rocuronium 40 mg phenylephrine 100 mcg/mL 300 mcg sugammadex 200 mg ondansetron 4 mg vancomycin 1,000 mg/250 mL in sodium chl oride 0.9% (premix) 1.5 g phenylephrine (BERTHA-SYNEPHRIN E) 25,000 mcg in sodium chloride 0.9% 250 mL (100 mcg/mL) infusion 0.61 mg HYDROmorphone 2 mg/mL 1 mg LR 1,000 mL * Agents Name O2 Air Desflurane Inspired Desflurane * Blood No blood administrations on file. Lines, Drains, and Airways Type Details Placement Removal RETIRED Surgical Site 10/11/21; 1033; Lo wer; 11/03/21; Other (Comment) (more recent surgery performed) 10/11/21 1033 by Aashish Johnson RN 11/03/21 0000 by Gayle Camargo RN RETIRED Surgical Site 10/11/21; 1034; Lo wer; Back; 11/03/21; Other (Comment) (more recent surgery performed) 10/11/21 1034 by Aashish Johnson RN 11/03/21 0000 by Gayle Camargo RN RETIRED Negative Pressure Wound Therapy 10/11/21; 1050 (present on arrival to pacu); Surgical wound; Back; 10/31/21; 0828 10/11/21 1050 by Breana Keen RN 10/31/21 0828 by Sujatha Pacheco RN Peripheral IV Placement Date: 10/28/21; Catheter Size: 20 G; Orientation: Left; Location: Forearm; Removal Date: 11/01/21; Removal Time: 1507; Removal Reason: Infiltrated 10/28/21 0000 by Sobia Diamond RN 11/01/21 1507 by Douglas Taylor RETIRED Surgical Site 10/28/21; 2245; Ye s; Mid-line; Back; 11/05/21 (duplicate entry); 1013 10/28/21 2245 by Sobia Diamond RN 11/05/21 1013 by Aretha Sue RN ETT Placement Date: 10/29/21; Placement Time: 180 (created via procedure documentation); Mask Ventilation: 1; Technique: Video laryngoscopy; Type: ETT - single; Single Lumen Tube Size: 8 mm; Cuffed: Yes; Blade Size: 4; Location: Oral; Insertion Attempts: 1; Placement Verification: Auscultation, Capnometry; Removal Date: 10/29/21; Removal Time: 192110/29/21 180 by Zachary Acevedo MD 10/29/21 192 by Gretchen Watson CRNA RETIRED Surgical Site 10/29/21; 1845; Ba ck; Lumbar; 11/03/21; (more recent surgery completed) 10/29/21 184 by Jodie Amaya RN 11/03/21 0000 by Gayle Camargo RN Closed/Suction/Open Drain 10/29/21; 184; No; Inferior, Midline; Back; Accordion; (04/06 ); Other (Comment) (removed by FOLDING MACHINE OPERATOR this am) 10/29/21 184 by Jodie Amaya RN 11/05/21 0800 by Arteha Sue, RN documented in this encounter Social History [...] often do you attend chur ch or pentecostal services? 1 to 4 times per year [...] on file Legal Sex Male 12:56 PM MARKETING EXECUTIVE Gender Identity Male 05/23/2021 12:08 PM MARKETING EXECUTIVE Sexual Orientation Straight 05/23/2021 12 :08 PM MARKETING EXECUTIVE documented as of this encounter OR Notes * Anesthesia Postprocedure Evaluation - Kitty Campa MD - 10/31/2021 12:04 PM CDT Patient: Douglas oHrn Procedure Summary Date: 10/29/21 Room / Location: [facility] [place] OPERATING ROOM 04 / [facility] OPERATING ROOM Anesthesia Start: 1742 Anesthesia Stop: 1937 Procedure: INCISION AND DRAINAGE BACK WOUND (N/A Back) Diagnosis: (Back Wound Infection) Surgeons: Osmel Sheets MD Responsible Provider: Kitty Campa MD Anesthesia Type: general ASA Status: 3 - Emergent Anesthesia Type: general Last vitals BP 95/54 (BP Location: Right arm, Patient Position: Sitting) Pulse 71 Temp 36.5 ??C (97.7 ??F) (Oral) Resp 17 SpO2 93% Anesthesia Post Evaluation Patient location during evaluation: PACU Patient participation: complete - patient participated Level of consciousness: follows simple commands and fully awake Pain management: adequate Airway patency: adequate Cardiovascular status: acceptable and hemodynamically stable Respiratory status: acceptable Hydration status: acceptable Pt is: normothermic Nausea/Vomiting status: none No complications documented. * Anesthesia Procedure Notes - Zachary Acevedo MD - 10/29/2021 6:07 PM CDTAssociated Order(s): Airway Airway Patient location: OR Urgency: elective Indications for airway management: anesthesia Difficult airway: no Emergent airway documentation: Risks and benefits discussed: yes Consent obtained: yes Consent given by: patient Airway prep: Preoxygenated: yes Patient position: sniffing Mask difficulty assessment: 1 - vent by mask Sedation level during airway: GA Final airway details: Final airway type: endotracheal airway Tube type: ETT ETT size: 8.0 mm Cuffed: yes Technique used for successful ETT placement: video laryngoscopy Insertion site: oral Video blade type: Glidescope and Murray Blade size: 4 Cormack-Lehane (video): grade IIa - partial view of glottis Cuff inflated with: air ETT to gums: 24 cm Placement verified by: auscultation and CO2 detection Airway secured with: silk tape Number of attempts: 1 * Anesthesia Preprocedure Evaluation - Zachary Acevedo MD - 10/29/2021 5:13 PM CDT Images from the original note [...] Vaccination (12+ YRS)) Procedure(s): INCISION AND DRAINAGE BACK WOUND Pre-Op Diagnosis Codes: * Lumbar radiculopathy [M54.16] HISTORY Past Medical History Information obtained from: patient and chart. Neurological Neuro/Psych system: negative Cardiovascular Cardiac system: negative Respiratory + Asthma (patient denies asthma, reports [...] of pseudomanas resp infection) Pertinent negatives: diabetes mellitus and thyroid disease Functional Capacity Functional capacity: 4-6 METs [...] radiculopathy ??? Infection of lumbar spine (CMS/HCC) (HCC) ??? Severe sepsis (HCC) ??? Infection following a procedure, deep incisional surgical site, initial encounter ??? History of Clostridium difficile colitis ??? GERD without esophagitis ??? Hyponatremia ??? SIADH (syndrome of inappropriate ADH production) ([facility]/HCC) (HCC) Past Medical History: Diagnosis Date ??? Arthritis ??? Asthma ??? GERD (gastroesophageal reflux disease) ??? Lead poisoning ??? Lumbar radiculopathy ??? Peripheral neuropathy ??? Pseudomonas respiratory infection comes and goes - on jail antibiotics to prevent further mucous build up ??? Toxic effect of mercury and its compounds, accidental (unintentional), initial encounter Past Surgical History: Procedure Laterality Date ??? MICRODISCECTOMY LUMBAR 06/03/2021 S/P Right L5-S1 Microdiscectomy ([place]) No Known Allergies Med List Status: Nurse Complete Set By: Sobia Diamond RN at 10/28/2021 10:50 PM Taking? Last Dose Start Date End Date Provider albuterol HFA (PROVENTIL HFA,VENTOLIN HFA,PROAIR HFA) 90 mcg/actuation inhaler More than a month ---- Carin Chirinos MD budesonide-formoteroL (SYMBICORT) 160-4.5 mcg/actuation inhaler More than a month -- -- Carin Chirinos MD fluticasone propionate (FLONASE) 50 mcg/actuation nasal spray 10/28/2021 -- -- Carin Chirinos MD ipratropium (ATROVENT) 42 mcg (0.06 %) nasal spray 10/28/2021 -- -- Carin Chirinos MD LYRICA 150 mg capsule 10/28/2021 03/17/18 -- Carin Chirinos MD oxyCODONE-acetaminophen (Percocet) 5-325 mg per tablet 10/28/2021 10/18/21 11/01/21 Jayy Granger MD Take 1-2 tablets by mouth every 4 (four) hours as needed for pain for up to 14 days Maximum 6 tablets/day pregabalin (LYRICA) 300 mg capsule -- -- Carin Chirinos MD rOPINIRole (REQUIP) 2 mg tablet 10/28/2021 -- -- Carin Chirinos MD tiZANidine (ZANAFLEX) 4 mg tablet 10/28/2021 10/11/21 -- Jayy Granger MD Take 1 tablet (4 mg total) by mouth every 6 (six) hours as needed for muscle spasms valACYclovir (VALTREX) 500 mg tablet 10/28/2021 -- -- Provider, MD Carin vancomycin (VANCOCIN) 125 mg capsule -- -- Provider, MD Carin Current Facility-Administered Medications: ??? acetaminophen (TYLENOL) tablet 650 mg, 650 mg, oral, Q4H PRN, 650 mg at 10/29/21 1020 OR acetaminophen (TYLENOL) 32 mg/mL oral solution 650 mg, 650 mg, feeding tube, Q4H PRN OR acetaminophen (TYLENOL) suppository 650 mg, 650 mg, rectal, Q4H PRN ??? bisacodyL (DULCOLAX) suppository 10 mg, 10 mg, rectal, Daily PRN ??? bisacodyl EC (DULCOLAX EC) tablet 10 mg, 10 mg, oral, Daily PRN ??? Carrier Fluids for Secondary Infusion - 0.9% Sodium Chloride, 30 mL, intravenous, PRN ??? dextrose 5% and sodium chloride 0.45% with potassium chloride 20 mEq/L infusion (premix), 75 mL/hr, intravenous, Continuous, Last Rate: 75 mL/hr at 10/29/21 0642, 75 mL/hr at 10/29/21 0642 ??? morphine injection 4 mg, 4 mg, intravenous, Q3H PRN ??? ondansetron ODT (ZOFRAN-ODT) disintegrating tablet 4 mg, 4 mg, oral, Q6H PRN OR ondansetron(ZOFRAN) injection 4 mg, 4 mg, intravenous, Q6H PRN ??? oxyCODONE (ROXICODONE) tablet 5 mg, 5 mg, oral, Q4H PRN ??? polyethylene glycol (MIRALAX) packet 17 g, 17 g, oral, Daily PRN ??? sodium chloride 0.9% flush 0.5-20 mL, 0.5-20 mL, intra-catheter, Q8H JESSENIA, 10 mL at 10/29/21 0642 ??? sodium chloride 0.9% flush 0.5-20 mL, 0.5-20 mL, intra-catheter, PRN ??? vancomycin (VANCOCIN) capsule 125 mg, 125 mg, oral, Q6H JESSENIA FOLLOWED BY [START ON 11/08/2021] vancomycin (VANCOCIN) capsule 125 mg, 125 mg, oral, Daily FOLLOWED BY [START ON 12/06/2021] vancomycin (VANCOCIN) capsule 125 mg, 125 mg, oral, Every other day FOLLOWED BY [START ON 12/20/2021]vancomycin (VANCOCIN) capsule 125 mg, 125 mg, oral, Q3 Days Social History Tobacco Use Smoking Status Never [...] reviewed and printed copy given to patient. Vitals: 10/29/21 0818 10/29/21 0915 10/29/21 1617 BP: (!) 89/46 103/61 120/66 Pulse: 68 73 62 Resp: Temp: 36.8 ??C (98.3 ??F) 36.4 ??C (97.5 ??F) SpO2: 100% 100% *CBC Lab Results Component Value Date WBC 14.0 (H) 10/29/2021 HGB 10.0 (L) 10/29/2021 HCT 30.0 (L) 10/29/2021 LABPLAT 316 10/29/2021 MPV 8.3 (L) 10/29/2021 RBC 3.43 (L) 10/29/2021 MCV 87.5 10/29/2021 MCH 29.2 10/29/2021 MCHC 33.3 10/29/2021 RDWCV 13.3 10/29/2021 RDWSD 42.8 10/29/2021 NRBCABS 0.00 10/29/2021 Type&Screen Lab Results Component Value Date ABORH A Negative 10/29/2021 IDCOOMB Negative 10/29/2021 hgbA1C Lab Results Component Value Date HGBA1C 5.4 10/02/2021 Vitamin D Lab Results Component Value Date 25HYDROVITD 52 10/02/2021 SEC evaluation complete. DOS Physical Exam Medical history, medications, and allergies reviewed. Attestation: This PAT evaluation 10/29/2021. Airway Exam: Mallampati: II Cervical ROM: FROM TM distance: >4 Cardiovascular Exam: Rate: regular Rhythm: regular Dental Exam: Appears intact Current state: Patient's current state is cooperative. Anesthesia Plan ASA 3- emergent My patient is approved for the Anesthesia Controlled Medication protocol when under care of a PHARMACY RESIDENT Planned anesthesia: General Team communication plan: oral [...] Procedure Name Priority Date/Time Associated Diagnosis Comments MD AN PROCEDURE PLACEHOLDER Routine 10/29/2021 6:07 PM CDT MD AN ELECTIVE ENDOTRACHEAL AIRWAY Routine 10/29/2021 6:07 PM CDT documented in this encounter Results * MD AN ELECTIVE ENDOTRACHEAL AIRWAY, MD AN PROCEDURE PLACEHOLDER (10/29/2021 6:07 PM CDT) Narrative Zachary Acevedo MD - 10/29/2021 6:07 PM CDT Zachary Acevedo MD ? 10/29/2021 ??6:08 PM Airway Patient location: OR Urgency: elective Indications for airway management: anesthesia Difficult airway: no Emergent airway documentation: Risks and benefits discussed: yes Consent obtained: yes Consent given by: patient Airway prep: Preoxygenated: yes Patient position: sniffing Mask difficulty assessment: 1 - vent by mask Sedation level during airway: GA Final airway details: Final airway type: endotracheal airway Tube type: ETT ETT size: 8.0 mm Cuffed: yes Technique used for successful ETT placement: video laryngoscopy Insertion site: oral Video blade type: Glidescope and Murray Blade size: 4 Cormack-Lehane (video): grade IIa - partial view of glottis Cuff inflated with: air ETT to gums: 24 cm Placement verified by: auscultation and CO2 detection Airway secured with: silk tape Number of attempts: 1 Zachary Acevedo MD ANESTHESIA ORDERABLES Fi nal Result documented in this encounter Visit Diagnoses Not on filedocumented in this encounter Administered Medications Inactive Administered Medications - up to 3 most recent administrations Medication Order MAR Action Action Date Dose Rate Site fentaNYL (SUBLIMAZE) preservative free injection intravenous, As needed, Starting on Thu10/29/21 at 1746, Anesthesia Intra-op Given 10/29/2021 5:46 PM CDT 100 mcg HYDROmorphone (DILAUDID) injection intravenous, Administer over 2 Minutes, As needed, Starting on Thu10/29/21 at 1831, Anesthesia Intra-op Given 10/29/2021 7:35 PM CDT 0.5 mg Given 10/29/2021 6:31 PM CDT 0.5 mg Lactated Ringer's (LR) infusion intravenous, Continuous PRN, Starting on Thu10/29/21 at 1743, Anesthesia Intra-op New Bag 10/29/2021 7:18 PM CDT New Bag 10/29/2021 5:43 PM CDT lidocaine (cardiac) (XYLOCAINE) preservative free injection intravenous, As needed, Starting on Thu10/29/21 at 1746, Anesthesia Intra-op, Indications: Ventricular ArrhythmiasIndications:Ventricular Arrhythmias Given 10/29/2021 5:46 PM CDT 5 mL ondansetron (ZOFRAN) injection intravenous, Administer over 2 Minutes, As needed, Starting on Thu10/29/21 at 1848, Anesthesia Intra-op Given 10/29/2021 6:48 PM CDT 4 mg phenylephrine (BERTHA-SYNEPHRINE) 1 mg/10 mL (100 mcg/mL) in sodium chloride 0.9% (premix) intravenous, As needed, Starting on Thu10/29/21 at 1810, Anesthesia Intra-op Given 10/29/2021 6:25 PM CDT 100 mcg Given 10/29/2021 6:20 PM CDT 100 mcg Given 10/29/2021 6:10 PM CDT 100 mcg phenylephrine (BERTHA-SYNEPHRINE) 25,000 mcg in sodium chloride 0.9% 250 mL (100 mcg/mL) infusion intravenous, Continuous PRN, Starting on Thu10/29/21 at 1825, Anesthesia Intra-op Rate/Dose Change 10/29/2021 6:29 PM CDT 0.2 mcg/kg/min 9.648 mL/hr New Bag 10/29/2021 6:25 PM CDT 0.5 mcg/kg/min 24.12 mL/ hr propofoL (DIPRIVAN) 10 mg/mL IV intravenous, As needed, Starting on Thu10/29/21 at 1746, Anesthesia Intra-op Given 10/29/2021 5:46 PM CDT 150 mg rocuronium (ZEMURON) injection intravenous, As needed, Starting on Thu10/29/21 at 1746, Anesthesia Intra-op Given 10/29/2021 6:28 PM CDT 10 mg Given 10/29/2021 5:57 PM CDT 25 mg Given 10/29/2021 5:46 PM CDT 5 mg succinylcholine (ANECTINE) injection intravenous, As needed, Starting on Thu10/29/21 at 1747, Anesthesia Intra-op Given 10/29/2021 5:47 PM CDT 100 mg sugammadex (BRIDION) 100 mg/mL intravenous solution intravenous, As needed, Starting on Thu10/29/21 at 1911, Anesthesia Intra-op Given 10/29/2021 7:11 PM CDT 200 mg vancomycin 1,000 mg/250 mL in sodium chloride 0.9% (premix) intravenous, Administer over 60 Minutes, As needed, Starting on Thu10/29/21 at 1820, Anesthesia Intra-op Given 10/29/2021 6:20 PM CDT 1.5 g documented in this encounter Care Teams Stonecutter Relationship Specialty Start Date End Date Anil Gupta MD [address] [place] [address] PCP - General Internal Medicine 04/19/21 Anil Gupta MD [address] [place] [address] Internal Medicine 04/19/21 documented as of this encounter
--- OUTSIDE RECORDS SUMMARY | 2024-03-19 07:30 | XMS_ITS | Encounter Summary ---
Author Organization [facility] Healthcare Address [address] [place] [address] Care Team Providers Care Cigar Head Stringer Name Role Phone Anil Gupta MD Primary Care Provider [phone] Anil Gupta MD Unavailable [phone] Kristine Young MD Unavailable Reason for Visit * Auth/Cert Specialty Diagnoses / Procedures Referred By Contac t Referred To Contact Diagnoses Infection of lumbar spine (CMS/HCC) (HCC) Post Op Wound Infection/ Ortho Procedures n/a Referral ID Status Reason Start Date Expiration Date Visits Re quested Visits Authorized [id number] 1 1 Encounter Details Date Type Department Care Team (Latest Contact Info) Description 10/28/2021 10:28 PM CDT - 11/06/2021 1:42 PM CDT Hospital Encounter [facility] [address] [place] [id number] Marin Phelan MD [facility] [facility] HOS[facility]ITAL[place], [place] [id number] Sukhdev Matias MD [address], [place] [id number] Juliocesar Calix MD [address], [place] [id number] Infection of lumbar spine (CMS/HCC) (HCC) (Primary Dx) Discharge Disposition: Discharge to home, home health skilled care Social History Tobacco Use Types Packs/Day [...] often do you attend chur ch or mandaeism services? 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 Sexual Orientation Straight 05/23/2021 12 :08 PM ASSISTANT ASSOCIATE PROFESSOR documented as of this encounter Last Filed Vital Signs Vital Sign Reading Time Taken Comments Blood Pressure 90/48 11/06/2021 7:50 AM CDT Pulse 75 11/06/2021 7:50 AM CDT Temperature 36.4 ??C (97.5 ??F) 11/06/2021 7:50 AM CD T Respiratory Rate 15 11/06/2021 7:50 AM CDT Oxygen Saturation 98% 11/06/2021 7:50 AM CDT Inhaled Oxygen Concentration - - [...] Patient Age - 71 yrs Patient - [id number] [facility] - [id number] Document Creation Date: 11/06/2021 Admitting Provider, MD: Marin Phelan MD Discharge Provider, MD: Juliocesar Calix MD Primary Care Physician at Discharge: Anil Gupta MD [phone] Admission Date: 10/28/2021 Discharge Date/time: 11/06/2021 Admission Location: [facility] Hospital LOS - LOS: 9 days [...] device, use of morselized autograft with bone last repairer, bone marrow aspirate with left iliac crest [...] at the surgical site. ??He presented to [facility] for further evaluation.vAt [facility], his exam reportedly was notable for pratima [...] Your Medications These medications were sent to [facility] [place], [place] - [address] [facility] [address] [facility] [address] ?? oxyCODONE 5 mg immediate release tablet [...] Center 11/13/2021 11:00 AM Jayy Granger MD [id number] [facility] 11/20/2021 11:00 AM Jayy Granger MD [id number] PSA Contact Information for Follow-ups [facility] Home Infusion [address] [facility] [phone] Next Steps: Follow up Instructions: will supply antibiotic medication at discharge [facility] Home [facility] [address] [place] [phone] Next Steps: Follow up Instructions: RN will see pt. at home for iv antibiotic administration, PICC line dressing changes and labwork ordered per . Kristine Young MD Specialty: Infectious Diseases, Internal Medicine Relationship: Consulting Physician [address] [place] [address] [facility] [address] Next Steps: Follow up Questions: To provider: KRISTINE YOUNG Please schedule an appointment with the following provider(s): [facility] Home Infusion [address] [facility] [phone] Follow up will supply antibiotic medication at discharge [facility] [address] [facility] [address] Follow up RN will see pt. at home for iv antibiotic administration, PICC line dressing changes and labwork ordered per . Kristine Young MD [address] [place] [address] [facility] [address] ANCILLARY INFORMATION Other Procedures & Diagnostic Tests: ECG 12 lead Result Date: 10/29/2021 Vent Rate: 91 bpm RR Interval: 659 msec MD Interval: 188 msec QRS Duration: 137 msec QT Interval: 343 msec QTC Interval: 391 msec P-R-T [place]: 47 - -70 - 42 degrees SINUS RHYTHM LEFT AXIS DEVIATION RIGHT BUNDLE BRANCH BLOCK ABNORMAL ECG Electronically Signed By: Jessee Florence MD Recent Labs: Recent Labs Lab Units 11/05/2161511/04/2179911/02/21 0656 WBC [...] 9 CREATININE mg/dL 0.92 0.76* -- 0.90 [id number] mL/min/1.73 m2 89 97 -- 92 GLUCOSE [...] 11/04/2021 GLUCOSE 86 11/03/2021 Implant: Implants Implant Transaction [employer] Allograft Bone Putty 2.5cc 700-025 - [id number] - Implanted Spine Lumbar Inventory item: [employer] ALLOGRAFT BONE PUTTY 2.5CC 700-025 Model/Cat number: [id number] Interior Paneler: StyleUp Lot number: [id number] Device identifier: [id number] Device identifier type: GS1 As of 10/11/2021 Status: Implanted Glisten Inqu Paste Mix Plus Rn School 10cc Bone Graft Hyaluronic Acid Poly [id number] - [id number] - Implanted Spine Lumbar Inventory item: [employer] Inqu Paste Mix Plus Rn School 10cc Bone Graft Hyaluronic Acid Poly [id number] Model/Cat number: [id number] Interior Paneler: [employer] As of 10/11/2021 Status: Implanted Core Link Foundation L31 Mm X W10 Mm X H11 Mm 3d 12 D Curve Cage Spinal [id number] - [id number] -Implanted Spine Lumbar Inventory item: CORE LINK Foundation L31 Mm X W10 Mm X H11 Mm 3d 12 D Curve Cage Spinal [id number] Model/Cat number: [id number] Interior Paneler: Core Link Lot number: [id number] Device identifier: [id number] Device identifier type: HIBC As of 10/11/2021 Status: Implanted Core Link Simon 6.5mm 45mm Spine Pedicle Screw Bone 5500 Series [id number] - [id number] - Implanted Spine Lumbar Inventory item: CORE LINK Simon 6.5mm 45mm Spine Pedicle Screw Bone 5500 Series [id number] Model/Cat number: [id number] Interior Paneler: Core Link As of 10/11/2021 Status: Implanted Core Link Simon Screw Set 5500 Series [id number] - [id number] - Implanted Spine Lumbar Inventory item: CORE LINK Simon Screw Set 5500 Series [id number] Model/Cat number: [id number] Interior Paneler: Core Link As of 10/11/2021 Status: Implanted Core Link Simon 5.5mm 40mm Line Prebent Nabor Spinal Nonsterile 5500 Series [id number] - [id number] - Implanted Spine Lumbar Inventory item: CORE LINK Simon 5.5mm 40mm Line Prebent Nabor Spinal Nonsterile 5500 Series [id number]/Cat number: [id number] Interior Paneler: Core Link As of 10/11/2021 Status: Implanted General Precautions (If Blank, None Found): Isolation Status: No active isolations Nutritional Status and in-house recommendations: Dietary Orders (From admission, onward) Start Ordered 11/04/21 1300 Oral Nutrition Supplements Select Supplement: Ensure - Charlo, Ensure - Any Flavor 3 times daily and at bedtime Question Answer Comment Select Supplement: Ensure - Charlo Select Supplement: Ensure - Any Flavor 11/04/21 1017 11/03/21 1124 Adult Diet Regular Diet effective now Question: ([facility]) Diet type Answer: Regular 11/03/21 [...] Protein / High Calorie Diet (General Information) (Cambodian) * Wound Healing and Your Diet (General Information) ([place]ambodian) documented in this encounter Medications at Time [...] by mouth daily 03/17/2018 3 [facility] See Instructions, 1 each, 1 each, Route to Pharmacy Electronically, [facility]/pharmacy #[id number], [id number], Instructions Replace Required Details, Supply 12/12/2019 [...] Discussed with pharmacy ID service as well. [facility] has nursing available. Orders written and [...] 9 CREATININE mg/dL 0.92 0.76* -- 0.90 [id number] mL/min/1.73 m2 89 97 -- 92 GLUCOSE [...] device, use of morselized autograft with bone last repairer, bone marrow aspirate with left iliac crest [...] moreat the surgical site. He presented to [facility] for further evaluation.vAt [facility], his exam reportedly was notable for pratima [...] risk: Moderate Dispo: Pt is accepted to [facility]fusion, anticipated DC on 11/06 and Start [facility] infusion athome on 11/07/2021 * Kristine Young MD - 11/05/2021 11:32 AM CDT Infectious Disease Progress Note PATIENT NAME: Douglas Horn : 1950 ADMISSION DATE: 10/28/2021 HOSPITAL COURSE: T-max 36.7 T-cur 36.4 WBC 5,900 Hgb 8.9 Drains removed this am. Wound vac remains. Eager to get home. [facility] can provide nursing now on . [...] 419* 486* 418* Recent Labs Lab Units 11/05/2161511/04/21 0811/02/21201611/02/21 0656 SODIUM mmol/L 133* 129* -- 131* POTASSIUM PLASMA mmol/L 4.9 4.5 -- 4.4 CHLORIDE mmol/L 99 96* -- 96* CO2 mmol/L 25 26 -- 29 BUN SERUM mg/dL 14 13 -- 9 CREATININE mg/dL 0.92 0.76* -- 0.90 [id number] mL/min/1.73 m2 89 97 -- 92 GLUCOSE [...] respiratory infection comes and goes - on nursing home antibiotics to prevent further mucous build up [...] 36.4 ??C (97.5 ??F) SpO2: 95% Vitals: 11/04/21200911/04/21 2325 11/05/21 0415 11/05/21 0825 BP: 103/62 [...] ml Output by Drain (mL) 11/03/21699 - 11/03/21185811/03/211899 - 11/04/21 0659 11/04/21699 - 11/04/21185811/04/21 190 - 11/05/21 0659 11/05/21699 - 11/05/21 0959 Closed/Suction/Open Drain Inferior;Midline Back [...] RADIOLOGY, DIAGNOSTIC REVIEW: Recent Labs Lab Units 11/05/21 0616 11/04/21 0811/02/21 0656 WBC K/cumm 5.9 11.6* 6.1 [...] 10/02/2021 COVID-19 Lab Results Component Value Date [id number] Not Detected 05/30/2021 Lab Results Component Value [...] Component Value Units Date/Time ECG 12 lead [[id number]] Collected: 10/29/2143 Order Status: Completed Updated: 10/29/21731 Narrative: Vent Rate: 91 bpm RR Interval: 659 msec MD Interval: 188 msec QRS Duration: 137 msec QT Interval: 343 msec QTC Interval: 391 msec P-R-T [place]: 47 - -70 - 42 degrees SINUS [...] ADH production) (CMS/HCC) (HCC) Moderate malnutrition (CMS/HCC) Assessment/Plan 1. Back wound infection status post lumbar fusion L5-S1 s/p INCISION AND DRAINAGE - BACK: Continue current post op course Pain control Spinal precautions Hemovacs removed today RONEY dressing to lumbar incision Mobilize patient today, PT/OT Encouraged IS Bowel regimen Continue antibiotics per ID D/C planning once cleared by medical/ID services Care plan discussed with the patient and Dr. Garcia. NANCIE Barth-C [facility] [phone] * MadayEdwige, PT - 11/04/2021 11:14 AM CDT Physical [...] Lab/Radiology/Diagnostic Review: Recent Labs Lab Units 11/04/21 0800 11/03/21 0542 11/02/21201611/02/21 0656 10/31/21 0500 SODIUM mmol/L [...] 8.9 8.3* Recent Labs Lab Units 11/04/21 0800 11/02/21 0656 10/31/21 0500 WBC K/cumm 11.6* 6.1 [...] 418* 323 Recent Labs Lab Units 11/04/21 0811/02/21201611/02/21 0656 10/31/21 0500 10/30/21 0910 10/29/21 0032 SODIUM mmol/L 129* -- 131* 131* < > 130* POTASSIUM PLASMA mmol/L 4.5 -- 4.4 4.2 < > 4.2 CHLORIDE mmol/L 96* -- 96* 98 < > 98 CO2 mmol/L 26 -- 29 26 < > 23 BUN SERUM mg/dL 13 -- 9 11 < > 10 CREATININE mg/dL 0.76* -- 0.90 0.89 < > 0.89 [id number] mL/min/1.73 m2 97 -- 92 92 < [...] Kristine Young MD 5:03 PM 11/04/2021 * Selene Perrin, RD - 11/03/2021 1:50 PM CDT Initial Nutrition Assessment Reason for Assessment: Initial Nutrition Assessment and Consult/Referral Encounter Date: 11/03/21 2:00 PM Nutrition Evaluation: Patient is a 71 y.o. male. Admit Dx: Infection of lumbar spine (CMS/HCC) ([facility]) [M46.26]. Admitted on 10/28/2021, current LOS [...] depth pinch but not ample Muscle Loss [place] - Temporalis Muscle: Slight depression Clavicle [...] respiratory infection comes and goes - on nursing home antibiotics to prevent further mucous build up [...] Oral Nutrition Supplements Select Supplement: Ensure - Charlo 2 times daily Question: Select Supplement: Answer: Ensure - Charlo 11/03/21 1348 11/03/21 112 Adult Diet Regular Diet effective now Question: ([facility]) Diet type Answer: Regular 11/03/21 [...] avocado, kiwi, orange, strawberries, pineapple, and cantaloupe Seleen Perrin RD,LD * Juliocesar Calix MD - [...] without neurogenic claudication Infection of lumbar spine (CMS/[facility]) ([facility]) Infection following a procedure, deep incisional surgical site, initial encounter History of Clostridium difficile colitis GERD without esophagitis Hyponatremia SIADH (syndrome of inappropriate ADH production) (CMS/HCC) ([facility]) Serratia marcescens bacteremia Post op lumbar [...] Review: RECENT LABS Recent Labs Lab Units 11/02/2156 10/31/21 0500 [...] mg/dL -- -- 0.90 0.89 0.81 0.89 [id number] mL/min/1.73 m2 -- -- 92 92 95 [...] occupational therapy. Milad Garcia M.D. [facility] [place] [facility] This document was created using speech [...] and D. Milad Garcia M.D. [facility] [place] [facility] This document was created using speech [...] or wound vac if needed. Will notify [facility] of delay in discharge. INTERIM HISTORY: [...] 10 CREATININE mg/dL 0.90 0.89 0.81 0.89 [id number] mL/min/1.73 m2 92 92 95 92 GLUCOSE [...] tomorrow morning. Milad Garcia M.D. [facility] This document was created using [...] with IV antibiotic when better * Selene Martini OT - 11/01/2021 1:08 PM CDT Occupational [...] maintaining spinal precautions with unilateral UE support [facility] Activity Tolerance Endurance Endurance does not limit participation in activity Activity Tolerance Comments Pre activity vitals: 100% on RA, 79 bpm, 99/60. VSS throughout session. Other Comments Comments Pt reviewed all spinal precautions in relation with ADL and IADLs thi sdate. Pt demonstrated/verbalized understanding this date. No further skilled OT services are recommended due to pt at [facility] ADLs. Pt in bed to [...] Imaging: None Drains: Continue to monitor output [place]: None Abx: Cefepime, PICC line on Thursday. DVT ppx: SCDs, ambulate t.i.d. Pain control: dilaudid prn, oxycodone prn, tylenol prn WB: Spinal fusion precautions PT progress: Eval and treat Dispo plan: DC cultures finalizing, PICC line placement, and setting up IV antibiotics at home. Probable discharge on Thursday. Milad Garcia M.D. [facility] [place] [facility] This document was created using speech [...] Dr. Garcia visited this am. Spoke with [facility] and nursing available Thursday with possible discharge Thursday. 10/31/2021 Up in his room with PT and OT this am. Minimal output form lumbar drain. Dressing changed and discussed with nursing. Photo taken on his phone. Blood and wound cultures with Serratia Ceftriaxone FLY is actually < 0.25. Discussed with Micro.Penicillins resistant. Spoke with [facility] and have obtained outpatient nursing for [...] 10 10 CREATININE mg/dL 0.89 0.81 0.89 [id number] mL/min/1.73 m2 92 95 92 GLUCOSE mg/dL [...] Maintain on once daily Vancomycin PO. 3. [facility] can provide nursing on Thursday. 4. [...] neurogenic claudication Infection of lumbar spine (CMS/HCC) ([facility]) Infection following a procedure, deep incisional surgical site, initial encounter History of Clostridium difficile colitis GERD without esophagitis Hyponatremia SIADH (syndrome of inappropriate ADH production) (CMS/HCC) ([facility]) Serratia marcescens bacteremia Post op lumbar [...] demonstration. Patient demonstrated understanding Cosigned by La Trimble PT at 11/01/2021 11:14 AM CDT * [...] 0.25. Discussed with Micro.Penicillins resistant. Spoke with [facility] and have obtained outpatient nursing for [...] 10 10 CREATININE mg/dL 0.89 0.81 0.89 [id number] mL/min/1.73 m2 92 95 92 GLUCOSE mg/dL [...] Maintain on once daily Vancomycin PO. 3. [facility] can provide nursing on Thursday. 4. PICC line at discharge. 5. Patient with many questions. Time spent: 36 minutes. Kristine Young MD 8:01 PM 10/31/2021 * Bernarda Childs, GETTERING FILAMENT MACHINE OPERATOR - 10/30/2021 4:00 PM CDT Daily Progress [...] device for steadying LE Dressing: Equipment Utilized Financial Planning Adviser Pain Assessment Pain Assessment 0-10 Pain Score [...] IV cefepime and vanco. Blood cx from [facility] positive for GN bacteria. Data Vitals: 24hr [...] neurogenic claudication Infection of lumbar spine (CMS/HCC) ([facility]) Infection following a procedure, deep incisional surgical site, initial encounter History of Clostridium difficile colitis GERD without esophagitis Hyponatremia SIADH (syndrome of inappropriate ADH production) (CMS/HCC) ([facility]) Severe sepsis Post op lumbar spine [...] In: 1925.8 [P.O.:200; I.V.:1350.8; IV Piggyback:375] Out: 2220 [Urine:2030; Drains:90; Blood:100] Physical Exam: Physical Exam [...] mg/dL 10 10 CREATININE mg/dL 0.81 0.89 [id number] mL/min/1.73 m2 95 92 GLUCOSE mg/dL 124 [...] line at discharge. 5. Will speak with [facility]. Time spent: 44 minutes. Kristine Young MD 3:08 PM 10/30/2021 * La Trimble, PT - 10/29/2021 4:04 PM CDT Physical Therapy Evaluation 10/29/21 8259 General Chart Reviewed Yes Session Type Evaluation PT Received On 10/29/21 Safe Environment Arm Band Checked;Call Light within Reach Subjective Agreeable to Therapy Additional Pertinent History Pt admitted from [facility] w/ severe sepsis from spinal infection. Pt [...] Home Mobility Equipment None Home ADL Equipment Financial Planning Adviser;Sock aid;Long-handled shoehorn Prior Function Level of [place] Independent with ADLs;Independent functional transfers;Independent with homemaking [...] Assessment and plan Principal Problem: Severe sepsis ([facility]) Active Problems: Lumbar stenosis without neurogenic claudication Infection of lumbar spine ([facility]) ([facility]) Infection following a procedure, deep incisional surgical site, initial encounter History of Clostridium difficile colitis GERD without esophagitis Hyponatremia SIADH (syndrome of inappropriate ADH production) ([facility]) ([facility]) Suspected severe sepsis (WBC>12, HR>90, reported [...] Medical complexity / risk: High * Selene Martini, OT - 10/29/2021 8:37 AM CDT Occupational Therapy Evaluation 10/29/21 0837 General Chart Reviewed Yes Session Type Evaluation OT Received On 10/29/21 Safe Environment Arm Band Checked;Call Light within Reach;Chair Alarm placed and activated;NotifiedRN Subjective Agreeable to Therapy Additional Pertinent History 71 year old male who presents with fever and back pain. At [facility], his exam reportedly was notable for pratima [...] Granger was contacted he is currently in [place]. Dr. Sheets was contacted via the transfer center and agreed with transfer to [facility]. He reports he had his stitches [...] device, use of morselized autograft with bone last repairer, bone marrow aspirate with left iliac crest [...] Mobility Equipment (WALKING STICK) Home ADL Equipment Financial Planning Adviser;Sock aid;Long-handled shoehorn Additional Comments Pt states that he does not use AE for mobiltiy. Pt states that he uses AE for LB dresing Prior Function Level of [place] Independent with ADLs;Independent functional transfers;Independent with ambulation [...] spinal precautions 10/29/21 11/05/21 -- * Robby Alcantar, [facility] - 10/29/2021 12:15 AM CDT Pharmacokinetic Consult [...] device, use of morselized autograft with bone last repairer, bone marrow aspirate with left iliac crest through a separate incision with Dr. Granger on 10/11/2021 presents with fever back pain. History was obtained with the patient, review of local records, review of records from his transition teacher's office at [facility], and review of records from [facility]. Patient reports he was in his usual [...] the past. He reached out to his meteorological observer's office and did notget a hold of [...] at the surgical site. He presented to [facility] for further evaluation. At [facility], his exam reportedly was notable for pratima [...] Granger was contacted he is currently in [place]. Dr. Sheets was contacted via the transfer center and agreed with transfer to [facility] with hospitalist and Infectious Diseases support. 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 [...] respiratory infection comes and goes - on nursing home antibiotics to prevent further mucous build up [...] nursing notes reviewed Lab/Radiology/Diagnostic Review: Labs from [facility] dated 10/28/2021 White blood count 14.8 Hemoglobin 11.5 Hematocrit 35.6 Platelet count 354 Sodium 128 Potassium 4.5 Chloride 94 Bicarb 24 BUN 14 Creatinine 1 Glucose 90 Lactic acid 1 SARS-CoV-2 RNA RT PCR negative Imaging personally reviewed: Chest x-ray dated 10/28/2021 shows stable chronic interstitial lung disease Cardiac studies personally reviewed: EKG ordered Assessment/Plan Principal Problem: Severe sepsis (HCC) Active Problems: Lumbar stenosis without neurogenic claudication Infection of lumbar spine (CMS/HCC) (HCC) Infection following a procedure, deep incisional surgical site, initial encounter History of Clostridium difficile colitis GERD without esophagitis Hyponatremia SIADH (syndrome of inappropriate ADH production) (CMS/HCC) ([facility]) Suspected severe sepsis (WBC>12, HR>90, reported fever, initial hypotension) from surgical site infection, POA to [place]. Ongoing, HR>90 on arrival. Suspected organisms include Staph, Strep. At risk for MRSA with recent surgery, Severe low back pain at surgical site Lumbar radiculopathy status post posterior lumbar decompression and spinal fusion Patient reportedly bolused 3.3 L normal saline Check lactate, blood cultures Start vancomycin for suspected cellulitis at surgical site. Pus reportedly expressed at [place] Continue home Lyrica 300 mg b.i.d. Pain control with Tylenol, oxycodone, morphine Ortho spine c/s - sent Dr. Sheets a message ID c/s - Dr. Young reportedly called prior to transfer Hyponatremia Na 128 at [place]. Prior urine studies consistent with SIADH as per his transition teacher Dr. Noel. TSH wnl. Cortisol 11. Urine osm 349, serum osm 283 on 09/16/2021 on review of records from [facility] He was given NS 3.3 L in ED Check stat labs Trend Na Hold IVF. History of C diff infection Recent diarrhea noted following surgery. He reportedly started taking vancomycin with improvement.Diarrhea has improved. Monitor for recurrence. Consider oral [...] Post-Procedure Diagnose(s): Infection of lumbar spine (CMS/HCC) (HCC) PICC Line Insertion Date/Time: 11/05/2021 5:40 PM Performed by: Abdon Nava Jr., PA Authorized by: Abdon Nava Jr., PA [place] Protocol: RN Notified of Procedure: yes Informed consent: Risks, benefits, alternatives discussed and patient/wire rope sales representative/guardian agrees and accepts Patient's stated [...] and matched to patient identification: n/a Responsible democrat for transporting specimen(s) to lab determined: n/a [...] that nature. He was initially presented to [facility], was found to have an elevated white [...] to be septic. Job ID/Internal Job ID: [id number] * Kristine Young MD - 10/29/2021 12:00 [...] originally from [place] and now living in [place], [place]. 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 In [...] mention of antibiotic treatment.The surgeons here at [facility] were contacted and transfer approved. Mr. Horn [...] States he was followed by physicians at [facility] 4-5 years ago with a Pseudomonas [...] 23, June 20 and November 21, 2020. Hehas no documented infection with COVID-19 but thinks [...] Mr. Horn and his are residents of [place], [place]. This is each their 2nd marriage. Hehas 2 children by his 1st and she 1, all adults now. 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 His is from the [place] [facility]. He has dual citizenship. Mr. Horn smoked [...] for Dr. Granger. Job ID/Internal Job ID: [id number] documented in this encounter Miscellaneous Notes * Plan of Care - Opal Cooper RN - 11/06/2021 1:42 PM CDT DISPO:Home with infusion and RN-H[facility]. * Plan of Care - Mihaela Nails [...] CM note-received message this am from Robyn Rodriguez-[facility] infusion/home health pt. Will be seen by [facility] RN on 11/07 for home iv antibiotic-Ceftriaxone OD to be administered, [facility] infusion will deliver antibiotic medication to pt's [...] with scheduled tylenol, drains dc'd thisam by HEAD CHEF, pt had a shower this afternoon, tolerating regular diet, orders received for PICC this evening, iv antibiotics given as ordered, plan for DC tomorrow with picc for iv antibiotics at home, vss. * Plan of Care - Robyn Figueroa - 11/05/2021 12:37 PM CDT Correction: Patient has been accepted to [facility] Home Health Infusion. Patient's anticipated DC is 8/10 and is scheduled to be seen by SN on 11/07/2021 * Plan of Care - Robyn Figueroa - 11/05/2021 10:22 AM CDT Patient has been accepted to [facility]fusion. Patient's anticipated DC is 8/10 and is scheduled to be seen by SN on 10/28/2021 * Plan of Care - Robyn Figueroa - 11/05/2021 9:00 AM CDT [facility] consult received. [facility] Home Care Agency accepted patient with projected [...] of Care - Kitty Martin RN - 11/04/2021 3:17 AM CDT Problem: Lack [...] Care Unit with an unchanged neurological exam. IMilad MD, was present throughout and performed the entire procedure. Milad Garcia M.D. [facility] Date: 11/03/2021 Time: 10:21 AM This [...] offer support. * Plan of Care - ClaudiaDouglas - 11/01/2021 11:33 AM CDT Problem: Lack [...] activity level will improve 10/31/2021 1258 by Douglsa Taylor Outcome: Progressing 10/31/2021 0848 by Douglas [...] Anesthesiologist: Zachary Acevedo MD; Kitty Campa MD GOLF COURSE SUPERINTENDENT: Gretchen Watson CRNA Transformer Coil Winder: Jodie Amaya RN Transformer Coil Winder Relief: Ursula Collier RN Scrub: Cynthia Wynn [...] AM, surgical incision had scant drainage - director staffing unable to visualize drainage at the time. [...] spouse at discharge. Primary Source of Transportation: James-Bambi Does the patient need discharge transport arranged?: No (10/29/21 1230) Health Insurance Coverage: Medicare/[employer] Prescription Coverage: yes Pharmacy: [address] Primary Care Provider: Anil Gupta MD Prior to Admission: Primary Caregiver: Self Support System: Spouse/Significant Other Support system contact info (name, phone, availablity): [facility] Care Services: No Durable Medical Equipment: [...] Family: Three times a week ??? Attends Sikh Services: 1 to 4 times per year [...] Never Potential discharge needs include: Home Health: long term, IV therapy (10/29/211227) Dialysis: no Behavioral Health [...] x3 steps to enter into their home. 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 With his adl's and ambulation, no DME at home except for a walking stick. Plan is for surgery today-wound exploration and drainage, will await C/S results, pt. Likely will need iv antibiotics at discharge. Referral sent to [facility] infusion and message to Eddie Rodriguez-[facility] pharmacist, will cont. to follow pt's progress [...] Collaboration with patient, MD, direct care nurse, Heating And Refrigeration Inspector, Nurse Coordinator and other members of the health care team to assure needed interventions completed. 2. Return patient to optimal level of self-care post discharge. 3. Asset Protection Assistant will follow for Discharge Planning - interventions [...] status post lumbar fusion L5-S1. SURGEON Kortney. INFECTION PREVENTION PRACTITIONER Bernarda Childs. EBL 100 mL. INTRAOPERATIVE COMPLICATIONS [...] [employer] and fungus. Job ID/Internal Job ID: [id number] documented in this encounter Plan of Treatment Not on file documented as of this encounter Procedures Procedure Name Priority Date/Time Associated Diagnosis Comments XR CHEST 1 VIEW ED Urgent/IP Urgent 11/05/2021 6:11 PM CDT MD INSJ NON-TUNNELED CENTRAL VENOUS CATH AGE 6 [...] GRAM STAIN Routine 10/29/2021 7:03 PM CDT INCISION AND DRAINAGE - BACK 10/29/2021 5:43 PM CDT Back Wound Infection ECG 12-LEAD Routine 10/29/2021 12:44 AM CDT [...] IMG XR PROCEDUR ES Final Result * MD INSJ NON-TUNNELED CENTRAL VENOUS CATH AGE 6 YR/> (11/05/2021 5:40 PM CDT) Narrative Abdon Nava Jr., PA - 11/05/2021 5:40 PM CDT Abdon Nava Jr., PA ? 11/05/2021 ??5:41 PM PICC Line Insertion Date/Time: 11/05/2021 5:40 PM Performed by: Abdon Nava Jr., PA Authorized by: Abdon Nava Jr., PA [place] Protocol: RN Notified of Procedure: yes ?? 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 Responsible democrat for transporting specimen(s) to lab determined: n/a ?? us Abdon Nava Jr., [facility] DE ORDERABLES Final Result * eGFR (11/05/2021 6:16 AM CDT) Pathologist [facility] eGFR 89 mL/min/1. 73 m2 [facility] Comment: Interpretive Data Reference Interval Normal ?>/= [...] MD LAB BLOOD ORDERABLES Final Re sult [facility] [address] Department [place] [address] * (ABNORMAL) Manual Differential (11/05/2021 6:16 AM CDT) Pathologist [facility] Differential Manual [facility] Cells Counted 115 [facility] Neutrophil abs 3.8 1.7 - 6.5 K/cumm [facility] Imm gran abs 0.0 0.0 - 0.1 K/cumm [facility] Lymphocyte abs 1.9 0.8 - 3.3 K/cumm [facility] Monocyte abs 0.2 0.2 - 0.8 K/cumm [facility] Neutrophil pct 64.3 % [facility] Comment: Interpretive Data Percent cell count reference ranges are not reported, since discordance with absolute values may lead to misinterpretation of CBC data. Current Interpretive Data was last revised on 2017. Lymphocyte pct 32.2 % [facility] Comment: Interpretive Data Percent cell count reference ranges are not reported, since discordance with absolute values may lead to misinterpretation of CBC data. Current Interpretive Data was last revised on 2017. Monocyte pct 3.5 % [facility] Comment: Interpretive Data Percent cell count reference ranges are not reported, since discordance with absolute values may lead to misinterpretation of CBC data. Current Interpretive Data was last revised on 2017. RBC morphology Present(A) [facility] Hypochromasia 3-7/HPF(A) [facility] Anisocytosis Slight(A) [facility] Blood 11/05/2021 6:16 AM CDT 11/05/2021 6:28 AM CDT us Kristine Young MD LAB BLOOD ORDERABLES Final Re sult [facility] [address] Department [place] [address] * (ABNORMAL) Renal function panel (11/05/2021 6:16 AM CDT) Sodium 133(L) 135 - 145 mmol/L [facility] Potassium, pl 4.9 3.3 - 4.9 mmol/L [facility] Chloride 99 97 - 110 mmol/L [facility] CO2 25 22 - 32 mmol/L [facility] Anion gap 9 2 - 15 mmol/L [facility] BUN 14 8 - 25 mg/dL [facility] Creatinine 0.92 0.80 - 1.30 mg/dL [facility] Glucose 96 70 - 199 mg/dL [facility] Comment: Interpretive Data Fasting glucose >/= 126 [...] 2017. Calcium 8.7 8.5 - 10.3 mg/dL [facility] Phosphorus, pl 2.7 2.3 - 4.5 mg/dL [facility] Albumin 3.0(L) 3.5 - 5.0 g/dL [facility] Blood 11/05/2021 6:16 AM CDT 11/05/2021 6:28 AM CDT us Kristine Young MD LAB BLOOD ORDERABLES Final Re sult [facility] [address] Department [place] [address] * (ABNORMAL) CBC with auto differential (11/05/2021 6:16 AM CDT) WBC 5.9 3.8 - 9.9 K/cumm [facility] Hgb 8.0(L) 13.0 - 17.5 g/dL [facility] Hct 24.6(L) 38.9 - 50.3 % [facility] Plt 419(H) 150 - 400 K/cumm [facility] MPV 8.2(L) 9.1 - 12.3 fL [facility] RBC 2.77(L) 4.30 - 5.80 M/cumm [facility] MCV 88.8 81.3 - 96.4 fL [facility] MCH 28.9 27.1 - 33.3 pg [facility] MCHC 32.5 32.3 - 35.7 g/dL [facility] RDW CV 13.0 11.1 - 14.9 % [facility] RDW SD 42.6 35.7 - 48.1 fL [facility] NRBC abs 0.00 0.00 - 0.01 K/cumm [facility] Blood 11/05/2021 6:16 AM CDT 11/05/2021 6:28 AM CDT us Kristine Young MD LAB BLOOD ORDERABLES Final Re sult [facility] [address] Department [place] [address] * eGFR (11/04/2021 8:00 AM CDT) eGFR 97 mL/min/1. 73 m2 [facility] Comment: Interpretive Data Reference Interval Normal ?>/= [...] of Race in Diagnosing Kidney Disease, JASN 202). The CKD-EPI equation should not be used for patients with unstable renal function and has not been validated in children and those over 70. Current interpretive data was last reviewed 2021. Blood 11/04/2021 8:00 AM CDT 11/04/2021 8:24 AM CDT us Juliocesar Calix MD LAB BLOOD ORDERABLES Final Resu lt [facility] [address] Department [place] [address] * (ABNORMAL) Differential, auto (11/04/2021 8:00 AM CDT) Neutrophil abs 9.1(H) 1.7 - 6.5 K/cumm [facility] Imm gran abs 0.1 0.0 - 0.1 K/cumm [facility] Lymphocyte abs 1.6 0.8 - 3.3 K/cumm [facility] Monocyte abs 0.8 0.2 - 0.8 K/cumm [facility] Eosinophil abs 0.0 0.0 - 0.5 K/cumm [facility] Basophil abs 0.0 0.0 - 0.1 K/cumm [facility] Neutrophil pct 78.3 % [facility] Comment: Interpretive Data Percent cell count reference ranges are not reported, since discordance with absolute values may lead to misinterpretation of CBC data. Current Interpretive Data was last revised on 2017. Imm gran pct 0.7 % [facility] Comment: Interpretive Data Percent cell count reference ranges are not reported, since discordance with absolute values may lead to misinterpretation of CBC data. Current Interpretive Data was last revised on 2017. Lymphocyte pct 13.8 % [facility] Comment: Interpretive Data Percent cell count reference ranges are not reported, since discordance with absolute values may lead to misinterpretation of CBC data. Current Interpretive Data was last revised on 2017. Monocyte pct 7.1 % [facility] Comment: Interpretive Data Percent cell count reference ranges are not reported, since discordance with absolute values may lead to misinterpretation of CBC data. Current Interpretive Data was last revised on 2017. Eosinophil pct 0.0 % [facility] Comment: Interpretive Data Percent cell count reference ranges are not reported, since discordance with absolute values may lead to misinterpretation of CBC data. Current Interpretive Data was last revised on 2017. Basophil pct 0.1 % [facility] Comment: Interpretive Data Percent cell count reference ranges are not reported, since discordance with absolute values may lead to misinterpretation of CBC data. Current Interpretive Data was last revised on 2017. Blood 11/04/2021 8:00 AM CDT 11/04/2021 8:24 AM CDT us Juliocesar Calix MD LAB BLOOD ORDERABLES Final Resu lt [facility] [address] Department [place] [address] * (ABNORMAL) Basic metabolic panel (11/04/2021 8:00 AM CDT) Sodium 129(L) 135 - 145 mmol/L [facility] Potassium, pl 4.5 3.3 - 4.9 mmol/L [facility] Chloride 96(L) 97 - 110 mmol/L [facility] CO2 26 22 - 32 mmol/L [facility] Anion gap 7 2 - 15 mmol/L [facility] BUN 13 8 - 25 mg/dL [facility] Creatinine 0.76(L) 0.80 - 1.30 mg/dL [facility] Glucose 106 70 - 199 mg/dL [facility] Comment: Interpretive Data Fasting glucose >/= 126 [...] 2017. Calcium 8.5 8.5 - 10.3 mg/dL [facility] Blood 11/04/2021 8:00 AM CDT 11/04/2021 8:24 AM CDT Milad Garcia MD LAB BLOOD ORDERABLES Fi nal Result Performing Organization Address [facility] Co de Phone Number [facility] [address] Department of [address] [place], [place] [id number] * (ABNORMAL) CBC with auto differential (11/04/2021 8:00 AM CDT) [facility] WBC 11.6(H) 3.8 - 9.9 K/cumm [facility] Hgb 8.9(L) 13.0 - 17.5 g/dL [facility] Hct 26.9(L) 38.9 - 50.3 % [facility] Plt 486(H) 150 - 400 K/cumm [facility] MPV 8.4(L) 9.1 - 12.3 fL [facility] RBC 3.04(L) 4.30 - 5.80 M/cumm [facility] MCV 88.5 81.3 - 96.4 fL [facility] MCH 29.3 27.1 - 33.3 pg [facility] MCHC 33.1 32.3 - 35.7 g/dL [facility] RDW CV 13.0 11.1 - 14.9 % [facility] RDW SD 41.7 35.7 - 48.1 fL [facility] NRBC abs 0.00 0.00 - 0.01 K/cumm [facility] Blood 11/04/2021 8:00 AM CDT 11/04/2021 8:24 AM CDT Milad Garcia MD LAB BLOOD ORDERABLES Fi nal Result Performing Organization Address City/[facility]/ZIP Co de Phone Number [facility] [address] Department of [address] [place], [place] [id number] * Mycobacteriology (AFB) culture and acid-fast stain Wound Back (11/03/2021 8:59 AM CDT) Direct Specimen Exam Stain: Concentrated smear: No Acid Fast Bacillus Seen [facility] Report Final Report: No Acid Fast Bacilli isolated [facility] Wound (Back) 11/03/2021 8:59 AM CDT 11/03/2021 9:39 AM CDT Narrative [facility] - 12/29/2021 1:00 PM CDT Deep Lumbar Wound Mycobacteriology (AFB) cultures are held for 8 weeks. Milad Garcia MD LAB MICROBIOLOGY - GENE RAL ORDERABLES Final Result Performing Organization Address [facility] Co de Phone Number [facility] [address] [place] [address] * (ABNORMAL) Mycology (fungal) culture Wound Back (11/03/2021 8:59 AM CDT) Report Final Report: No fungal growth seen on culture This is a corrected report. ??Previously reported as: Yeast isolated (.) [facility] Wound (Back) 11/03/2021 8:59 AM CDT 11/03/2021 9:39 AM CDT Narrative [facility] - 12/10/2021 10:49 AM CDT Deep Lumbar Wound Mycology cultures are held for 4 weeks. Milad Garcia MD LAB MICROBIOLOGY - GENE RAL ORDERABLES Final Result Performing Organization Address [facility] de Phone Number [facility] [address] [place] [address] * (ABNORMAL) Tissue aerobic and anaerobic culture and gram stain Tissue Back (11/03/2021 8:59 AM CDT) Pathologist [facility] Direct Specimen Exam Stain: Many polymorphonuclear leukocytes seen. No organisms seen. [facility] Report Final Report: Very light growth Serratia marcescens In vitro Ceftriaxone FLY: <=0.25 = S FLY request by Dr. Young (.) [facility] Organism SERRATIA MARCESCENS [facility] Tissue (Back) 11/03/2021 8:5 9 AM CDT 11/03/2021 9:[address] [facility] - 11/06/2021 12:41 PM [...] RAL ORDERABLES Final Result Performing Organization Address [facility] Co de Phone Number [facility] [address] Department [facility] [place], [place] [id number] * Mycobacteriology (AFB) culture and acid-fast stain Wound Back (11/03/2021 8:59 AM CDT) Direct Specimen Exam Stain: Concentrated smear: No Acid Fast Bacillus Seen [facility] Report Final Report: No Acid Fast Bacilli isolated [facility] Wound (Back) 11/03/2021 8:59 AM CDT 11/03/2021 9:[address] [facility] - 12/29/2021 1:00 PM CDT Superficial Lumbar Wound Mycobacteriology (AFB) cultures are held for 8 weeks. Milad Garcia MD LAB MICROBIOLOGY - GENE RAL ORDERABLES Final Result Performing Organization Address City/[facility] Co de Phone Number [facility] [address] Department of [address] [place], [place] [id number] * (ABNORMAL) Aerobic and anaerobic culture and gram stain Wound Back (11/03/2021 8:59 AM CDT) Pathologist [facility] Direct Specimen Exam Stain: Few polymorphonuclear leukocytes seen. No organisms seen. [facility] Report Final Report: Very light growth Serratia marcescens Susceptibility reported on this organism on previous culture [id number] (.) [facility] Organism SERRATIA MARCESCENS [facility] Wound (Back) 11/03/2021 8:59 AM CDT 11/03/2021 9:39 AM CDT Narrative [facility] - 11/06/2021 12:39 PM CDT Superficial Lumbar Wound Milad Garcia MD LAB MICROBIOLOGY - GENE RAL ORDERABLES Final Result Performing Organization Address [facility] Co de Phone Number [facility] [address] [place] [address] * (ABNORMAL) Mycology (fungal) culture Wound Back (11/03/2021 8:59 AM CDT) Pathologist [facility] Report Final Report: No fungal growth seen on culture This is a corrected report. ??Previously reported as: Very light growth Yeast (.) [facility] Organism YEAST [facility] Wound (Back) 11/03/2021 8:59 AM CDT 11/03/2021 9:39 AM CDT Narrative [facility] - 12/10/2021 10:49 AM CDT Superficial Lumbar wound Mycology cultures are held for 4 weeks. Milad Garcia MD LAB MICROBIOLOGY - GENE RAL ORDERABLES Final Result Performing Organization Address [facility] Co de Phone Number [facility] [address] [place] [address] * POCT glucose (11/03/2021 5:42 AM CDT) Pathologist [facility] Glucose, POC 86 70 - 140 mg/dL [facility] Comment: For Glucose values <35 mg/dl when Hematocrit is >60 mg/dl,the test may not accurately detect significant hypoglycemia,and testing in the Laboratory should be considered if clinically indicated. Blood 11/03/2021 5:42 AM CDT 11/03/2021 5:42 AM CDT Juliocesar Calix MD LAB POCT ORDERABLES - DEVICE Fi nal Result Performing Organization Address [facility] Co de Phone Number [facility] [address] [facility] [place] [address] * POCT glucose (11/02/2021 8:17 PM CDT) [facility] Signature Glucose, POC 93 70 - 140 mg/dL [facility] Comment: For Glucose values <35 mg/dl when Hematocrit is >60 mg/dl,the test may not accurately detect significant hypoglycemia,and testing in the Laboratory should be considered if clinically indicated. Blood 11/02/2021 8:17 PM CDT 11/02/2021 8:17 PM CDT Juliocesar Calix MD LAB POCT ORDERABLES - DEVICE Fi nal Result Performing Organization Address [facility] de Phone Number [facility] [address] [facility] [address] [place] [address] * CT Lumbar Spine W Contrast (11/02/2021 [...] inflammatory changes. Electronically signed by: KADY RANDLE Milad Garcia MD IMG CT PROCEDURES Final Result * eGFR (11/02/2021 6:56 AM CDT) eGFR 92 mL/min/1. 73 m2 [facility] Comment: Interpretive Data Reference [...] MD LAB BLOOD ORDERABLES Final Resu lt [facility] [address] [place] [address] * Differential, auto (11/02/2021 6:56 AM CDT) Neutrophil abs 4.6 1.7 - 6.5 K/cumm [facility] Imm gran abs 0.0 0.0 - 0.1 K/cumm [facility] Lymphocyte abs 0.8 0.8 - 3.3 K/cumm [facility] Monocyte abs 0.7 0.2 - 0.8 K/cumm [facility] Eosinophil abs 0.0 0.0 - 0.5 K/cumm [facility] Basophil abs 0.0 0.0 - 0.1 K/cumm [facility] Neutrophil pct 74.6 % [facility] Comment: Interpretive Data Percent cell count reference ranges are not reported, since discordance with absolute values may lead to misinterpretation of CBC data. Current Interpretive Data was last revised on 2017. Imm gran pct 0.5 % [facility] Comment: Interpretive Data Percent cell count reference ranges are not reported, since discordance with absolute values may lead to misinterpretation of CBC data. Current Interpretive Data was last revised on 2017. Lymphocyte pct 13.7 % [facility] Comment: Interpretive Data Percent cell count reference ranges are not reported, since discordance with absolute values may lead to misinterpretation of CBC data. Current Interpretive Data was last revised on 2017. Monocyte pct 11.2 % [facility] Comment: Interpretive Data Percent cell count reference ranges are not reported, since discordance with absolute values may lead to misinterpretation of CBC data. Current Interpretive Data was last revised on 2017. Eosinophil pct 0.0 % [facility] Comment: Interpretive Data Percent cell count reference ranges are not reported, since discordance with absolute values may lead to misinterpretation of CBC data. Current Interpretive Data was last revised on 2017. Basophil pct 0.0 % [facility] Comment: Interpretive Data Percent cell count reference ranges are not reported, since discordance with absolute values may lead to misinterpretation of CBC data. Current Interpretive Data was last revised on 2017. Blood 11/02/2021 6:56 AM CDT 11/02/2021 7:22 AM CDT us Juliocesar Calix MD LAB BLOOD ORDERABLES Final Resu lt [facility] [address] [place] [address] * (ABNORMAL) Basic metabolic panel (11/02/2021 6:56 AM CDT) Sodium 131(L) 135 - 145 mmol/L [facility] Potassium, pl 4.4 3.3 - 4.9 mmol/L [facility] Chloride 96(L) 97 - 110 mmol/L [facility] CO2 29 22 - 32 mmol/L [facility] Anion gap 6 2 - 15 mmol/L [facility] BUN 9 8 - 25 mg/dL [facility] Creatinine 0.90 0.80 - 1.30 mg/dL [facility] Glucose 99 70 - 199 mg/dL [facility] Comment: Interpretive Data Fasting glucose >/= 126 [...] 2017. Calcium 8.9 8.5 - 10.3 mg/dL [facility] Blood 11/02/2021 6:56 AM CDT 11/02/2021 7:22 AM CDT Juliocesar Calix MD LAB BLOOD ORDERABLES Final Resu lt Performing Organization Address [facility] Co de Phone Number [facility] [address] [address] * (ABNORMAL) CBC with auto differential (11/02/2021 6:56 AM CDT) WBC 6.1 3.8 - 9.9 K/cumm [facility] Hgb 10.3(L) 13.0 - 17.5 g/dL [facility] Hct 31.4(L) 38.9 - 50.3 % [facility] Plt 418(H) 150 - 400 K/cumm [facility] MPV 8.3(L) 9.1 - 12.3 fL [facility] RBC 3.57(L) 4.30 - 5.80 M/cumm [facility] MCV 88.0 81.3 - 96.4 fL [facility] MCH 28.9 27.1 - 33.3 pg [facility] MCHC 32.8 32.3 - 35.7 g/dL [facility] RDW CV 13.1 11.1 - 14.9 % [facility] RDW SD 42.7 35.7 - 48.1 fL [facility] NRBC abs 0.00 0.00 - 0.01 K/cumm [facility] Blood 11/02/2021 6:56 AM CDT 11/02/2021 7:22 AM CDT Juliocesar Calix MD LAB BLOOD ORDERABLES Final Resu lt Performing Organization Address City/[facility]/ZIP Co de Phone Number [facility] [address] Department [facility] [place], [place] [id number] * eGFR (10/31/2021 5:00 AM CDT) eGFR 92 mL/min/1. 73 m2 [facility] Comment: Interpretive Data Reference Interval Normal ?>/= [...] MD LAB BLOOD ORDERABLES [facility] [address] [place] [address] * (ABNORMAL) Differential, auto (10/31/2021 5:00 AM CDT) Neutrophil abs 3.6 1.7 - 6.5 K/cumm [facility] Imm gran abs 0.0 0.0 - 0.1 K/cumm [facility] Lymphocyte abs 0.7(L) 0.8 - 3.3 K/cumm [facility] Monocyte abs 0.6 0.2 - 0.8 K/cumm [facility] Eosinophil abs 0.0 0.0 - 0.5 K/cumm [facility] Basophil abs 0.0 0.0 - 0.1 K/cumm [facility] Neutrophil pct 72.4 % [facility] Comment: Interpretive Data Percent cell count reference ranges are not reported, since discordance with absolute values may lead to misinterpretation of CBC data. Current Interpretive Data was last revised on 2017. Imm gran pct 0.8 % [facility] Comment: Interpretive Data Percent cell count reference ranges are not reported, since discordance with absolute values may lead to misinterpretation of CBC data. Current Interpretive Data was last revised on 2017. Lymphocyte pct 14.5 % [facility] Comment: Interpretive Data Percent cell count reference ranges are not reported, since discordance with absolute values may lead to misinterpretation of CBC data. Current Interpretive Data was last revised on 2017. Monocyte pct 12.1 % [facility] Comment: Interpretive Data Percent cell count reference ranges are not reported, since discordance with absolute values may lead to misinterpretation of CBC data. Current Interpretive Data was last revised on 2017. Eosinophil pct 0.0 % [facility] Comment: Interpretive Data Percent cell count reference ranges are not reported, since discordance with absolute values may lead to misinterpretation of CBC data. Current Interpretive Data was last revised on 2017. Basophil pct 0.2 % [facility] Comment: Interpretive Data Percent cell count reference ranges are not reported, since discordance with absolute values may lead to misinterpretation of CBC data. Current Interpretive Data was last revised on 2017. Blood 10/31/2021 5:00 AM CDT 10/31/2021 6:16 AM CDT us Juliocesar Calix MD LAB BLOOD ORDERABLES Final Resu lt [facility] [address] [place] [address] * (ABNORMAL) Basic metabolic panel (10/31/2021 5:00 AM CDT) [facility] Sodium 131(L) 135 - 145 mmol/L [facility] Potassium, pl 4.2 3.3 - 4.9 mmol/L [facility] Chloride 98 97 - 110 mmol/L [facility] CO2 26 22 - 32 mmol/L [facility] Anion gap 7 2 - 15 mmol/L [facility] BUN 11 8 - 25 mg/dL [facility] Creatinine 0.89 0.80 - 1.30 mg/dL [facility] Glucose 105 70 - 199 mg/dL [facility] Comment: Interpretive Data Fasting glucose >/= 126 [...] 2017. Calcium 8.3(L) 8.5 - 10.3 mg/dL [facility] Blood 10/31/2021 5:00 AM CDT 10/31/2021 6:17 AM CDT us Juliocesar Calix MD LAB BLOOD ORDERABLES Final Resu lt [facility] [address] [place] [address] * (ABNORMAL) CBC with auto differential (10/31/2021 5:00 AM CDT) [facility] WBC 5.0 3.8 - 9.9 K/cumm [facility] Hgb 8.9(L) 13.0 - 17.5 g/dL [facility] Hct 28.1(L) 38.9 - 50.3 % [facility] Plt 323 150 - 400 K/cumm [facility] MPV 8.7(L) 9.1 - 12.3 fL [facility] RBC 3.09(L) 4.30 - 5.80 M/cumm [facility] MCV 90.9 81.3 - 96.4 fL [facility] MCH 28.8 27.1 - 33.3 pg [facility] MCHC 31.7(L) 32.3 - 35.7 g/dL [facility] RDW CV 13.2 11.1 - 14.9 % [facility] RDW SD 44.0 35.7 - 48.1 fL [facility] NRBC abs 0.00 0.00 - 0.01 K/cumm [facility] Blood 10/31/2021 5:00 AM CDT 10/31/2021 6:16 AM CDT Juliocesar Calix MD LAB BLOOD ORDERABLES Final Resu lt [facility] [address] [place] [address] * eGFR (10/30/2021 9:10 AM CDT) eGFR 95 mL/min/1. 73 m2 [facility] Comment: Interpretive Data Reference Interval Normal ?>/= [...] MD LAB BLOOD ORDERABLES Final Resu lt [facility] [address] [place] [address] * (ABNORMAL) Differential, auto (10/30/2021 9:10 AM CDT) Neutrophil abs 8.0(H) 1.7 - 6.5 K/cumm [facility] Imm gran abs 0.0 0.0 - 0.1 K/cumm [facility] Lymphocyte abs 0.5(L) 0.8 - 3.3 K/cumm [facility] Monocyte abs 0.8 0.2 - 0.8 K/cumm [facility] Eosinophil abs 0.0 0.0 - 0.5 K/cumm [facility] Basophil abs 0.0 0.0 - 0.1 K/cumm [facility] Neutrophil pct 85.6 % [facility] Comment: Interpretive Data Percent cell count reference ranges are not reported, since discordance with absolute values may lead to misinterpretation of CBC data. Current Interpretive Data was last revised on 2017. Imm gran pct 0.3 % [facility] Comment: Interpretive Data Percent cell count reference ranges are not reported, since discordance with absolute values may lead to misinterpretation of CBC data. Current Interpretive Data was last revised on 2017. Lymphocyte pct 5.7 % [facility] Comment: Interpretive Data Percent cell count reference ranges are not reported, since discordance with absolute values may lead to misinterpretation of CBC data. Current Interpretive Data was last revised on 2017. Monocyte pct 8.3 % [facility] Comment: Interpretive Data Percent cell count reference ranges are not reported, since discordance with absolute values may lead to misinterpretation of CBC data. Current Interpretive Data was last revised on 2017. Eosinophil pct 0.0 % [facility] Comment: Interpretive Data Percent cell count reference ranges are not reported, since discordance with absolute values may lead to misinterpretation of CBC data. Current Interpretive Data was last revised on 2017. Basophil pct 0.1 % [facility] Comment: Interpretive Data Percent cell count reference ranges are not reported, since discordance with absolute values may lead to misinterpretation of CBC data. Current Interpretive Data was last revised on 2017. Blood 10/30/2021 9:10 AM CDT 10/30/2021 9:16 AM CDT Juliocesar Calix MD LAB BLOOD ORDERABLES Final Resu lt [facility] [address] [place] [address] * (ABNORMAL) Basic metabolic panel (10/30/2021 9:10 AM CDT) Sodium 133(L) 135 - 145 mmol/L [facility] Potassium, pl 3.9 3.3 - 4.9 mmol/L [facility] Chloride 97 97 - 110 mmol/L [facility] CO2 27 22 - 32 mmol/L [facility] Anion gap 9 2 - 15 mmol/L [facility] BUN 10 8 - 25 mg/dL [facility] Creatinine 0.81 0.80 - 1.30 mg/dL [facility] Glucose 124 70 - 199 mg/dL [facility] Comment: Interpretive Data Fasting glucose >/= 126 [...] 2017. Calcium 8.5 8.5 - 10.3 mg/dL [facility] Blood 10/30/2021 9:10 AM CDT 10/30/2021 9:16 AM CDT us Juliocesar Calix MD LAB BLOOD ORDERABLES Final Resu lt [facility] [address] [place] [address] * (ABNORMAL) CBC with auto differential (10/30/2021 9:10 AM CDT) WBC 9.4 3.8 - 9.9 K/cumm [facility] Hgb 10.1(L) 13.0 - 17.5 g/dL [facility] Hct 30.5(L) 38.9 - 50.3 % [facility] Plt 323 150 - 400 K/cumm [facility] MPV 8.4(L) 9.1 - 12.3 fL [facility] RBC 3.39(L) 4.30 - 5.80 M/cumm [facility] MCV 90.0 81.3 - 96.4 fL [facility] MCH 29.8 27.1 - 33.3 pg [facility] MCHC 33.1 32.3 - 35.7 g/dL [facility] RDW CV 13.1 11.1 - 14.9 % [facility] RDW SD 43.0 35.7 - 48.1 fL [facility] NRBC abs 0.00 0.00 - 0.01 K/cumm [facility] Blood 10/30/2021 9:10 AM CDT 10/30/2021 9:16 AM CDT Juliocesar Calix MD LAB BLOOD ORDERABLES Final Resu lt Performing Organization Address [facility]/ZIP Co de Phone Number [facility] [address] [place] [address] * (ABNORMAL) Aerobic and anaerobic culture and gram stain Wound Back, lower (10/29/2021 7:03 PM CDT) Direct Specimen Exam Stain: Moderate polymorphonuclear leukocytes seen. No organisms seen. [facility] Report Final Report: Light growth of: Serratia marcescens Susceptibility reported on this organism on previous culture [id number] (.) [facility] Organism SERRATIA MARCESCENS [facility] Wound (Back, lower) 10/29/2021 7:03 PM CDT 10/29/2021 7:[address] [facility] - 11/01/2021 12:03 PM CDT Deep back wound Osmel Sheets MD LAB MICROBIOLOGY - GENERAL OR DERABLES Final Result Performing Organization Address [facility] Co de Phone Number [facility] [address] [place] [address] * (ABNORMAL) Aerobic and anaerobic culture and gram stain Wound Back, lower (10/29/2021 7:03 PM CDT) Direct Specimen Exam Stain: Many polymorphonuclear leukocytes seen. No organisms seen. [facility] Report Final Report: Light growth of: Serratia marcescens (.) [facility] Organism SERRATIA MARCESCENS [facility] Wound (Back, lower) 10/29/2021 7:03 PM CDT 10/29/2021 7:[address] [facility] - 11/01/2021 12:02 PM [...] OR DERABLES Final Result Performing Organization Address [facility] Co de Phone Number [facility] [address] [place] [address] * ECG 12 lead (10/29/2021 12:44 AM CDT) 10/29/2021 12:4 4 AM CDT Narrative [facility] - 10/29/2021 7:31 AM CDT Vent Rate: 91 bpm RR Interval: 659 msec MD Interval: 188 msec QRS Duration: 137 msec QT Interval: 343 msec QTC Interval: 391 msec P-R-T [place]: 47 - -70 - 42 degrees SINUS RHYTHM LEFT AXIS DEVIATION RIGHT BUNDLE BRANCH BLOCK ABNORMAL ECG Electronically Signed By: Jessee Florence MD us Sukhdev Matias MD ECG ORDERABLES Edited R esult - Final Performing Organization Address [facility] de Phone Number [facility] * eGFR (10/29/2021 12:32 AM CDT) eGFR 92 mL/min/1. 73 m2 [facility] Comment: Interpretive Data Reference Interval Normal ?>/= [...] MD LAB BLOOD ORDERABLES Fin al Result [facility] [address] [place] [address] * (ABNORMAL) Differential, auto (10/29/2021 12:32 AM CDT) Neutrophil abs 12.4(H) 1.7 - 6.5 K/cumm [facility] Imm gran abs 0.1 0.0 - 0.1 K/cumm [facility] Lymphocyte abs 0.7(L) 0.8 - 3.3 K/cumm [facility] Monocyte abs 0.9(H) 0.2 - 0.8 K/cumm [facility] Eosinophil abs 0.0 0.0 - 0.5 K/cumm [facility] Basophil abs 0.0 0.0 - 0.1 K/cumm [facility] Neutrophil pct 87.9 % [facility] Comment: Interpretive Data Percent cell count reference ranges are not reported, since discordance with absolute values may lead to misinterpretation of CBC data. Current Interpretive Data was last revised on 2017. Imm gran pct 0.6 % [facility] Comment: Interpretive Data Percent cell count reference ranges are not reported, since discordance with absolute values may lead to misinterpretation of CBC data. Current Interpretive Data was last revised on 2017. Lymphocyte pct 5.3 % [facility] Comment: Interpretive Data Percent cell count reference ranges are not reported, since discordance with absolute values may lead to misinterpretation of CBC data. Current Interpretive Data was last revised on 2017. Monocyte pct 6.1 % [facility] Comment: Interpretive Data Percent cell count reference ranges are not reported, since discordance with absolute values may lead to misinterpretation of CBC data. Current Interpretive Data was last revised on 2017. Eosinophil pct 0.0 % [facility] Comment: Interpretive Data Percent cell count reference ranges are not reported, since discordance with absolute values may lead to misinterpretation of CBC data. Current Interpretive Data was last revised on 2017. Basophil pct 0.1 % [facility] Comment: Interpretive Data Percent cell count reference ranges are not reported, since discordance with absolute values may lead to misinterpretation of CBC data. Current Interpretive Data was last revised on 2017. Blood 10/29/2021 12:3 2 AM CDT 10/29/2021 12:40 AM CDT Sukhdev Matias MD LAB BLOOD ORDERABLES Fin al Result [facility] [address] [place] [address] * Sepsis Lactate w/ Reflex (10/29/2021 12:32 AM CDT) Sepsis Lactate 1.0 0.7 - 2.0 mmol/L [facility] Blood 10/29/2021 12:3 2 AM CDT 10/29/2021 12:35 AM CDT Sukhdev Matias MD LAB BLOOD ORDERABLES Fin al Result [facility] [address] [facility] [place] [address] * Type and screen (10/29/2021 12:32 AM CDT) Sarah, indirect Negative [facility] ABO Rh A Negative [facility] Blood 10/29/2021 12:3 2 AM CDT 10/29/2021 12:42 AM CDT Narrative [facility] - 10/29/2021 1:19 AM CDT Has the patient had Daratumumab or Isatuximab in the past 6 months?->Unknown Sukhdev Matias MD LAB BLOOD BANK TEST ORDE RABLES Final Result Performing Organization Address [facility] Co de Phone Number [facility] [address] [place] [address] * (ABNORMAL) CRP (acute phase) (10/29/2021 12:32 AM CDT) CRP 224.8(H) <=10.0 mg/L [facility] Blood 10/29/2021 12:3 2 AM CDT 10/29/2021 12:38 AM CDT Sukhdev Matias MD LAB BLOOD ORDERABLES Fin al Result Performing Organization Address [facility] Co de Phone Number [facility] [address] [place] [address] * (ABNORMAL) Erythrocyte sedimentation rate (10/29/2021 12:32 AM CDT) Erythrocyte sedimentation rate 25(H) 1 - 20 mm/hr [facility] Blood 10/29/2021 12:3 2 AM CDT 10/29/2021 12:40 AM CDT us Sukhdev Matias MD LAB BLOOD ORDERABLES Fin al Result Performing Organization Address [facility] Co de Phone Number [facility] [address] [facility] [address] [place] [address] * Phosphorus (10/29/2021 12:32 AM CDT) [facility] Phosphorus, pl 2.8 2.3 - 4.5 mg/dL [facility] [facility] Blood 10/29/2021 12:3 2 AM CDT 10/29/2021 12:38 AM CDT Sukhdev Matias MD LAB BLOOD ORDERABLES Fin al Result Performing Organization Address [facility] Co de Phone Number [facility] [address] [facility] [address] [place] [address] * Magnesium (10/29/2021 12:32 AM CDT) [facility] Magnesium 1.8 1.4 - 2.5 mg/dL [facility] Blood 10/29/2021 12:3 2 AM CDT 10/29/2021 12:38 AM CDT Sukhdev Matias MD LAB BLOOD ORDERABLES Fin al Result Performing Organization Address [facility] Co de Phone Number [facility] [address] Department of [address] [place] [address] * (ABNORMAL) Blood culture Blood (10/29/2021 12:32 AM CDT) [facility] Direct Specimen Exam Molecular Analysis: Serratia marcescens detected by the [employer] Blood Culture Identification Panel. ??This test does not exclude the possibility of a mixed bacterial infection. Test result called to and read back by Handy Thao on 10/30/2021 10:18:25 by LB [facility] Direct Specimen Exam Stain: Gram Negative Bacilli [facility] Report Final Report: Serratia marcescens (.) [facility] Organism SERRATIA MARCESCENS [facility] Blood 10/29/2021 12:3 2 AM CDT 10/29/2021 12:43 AM CDT Narrative [facility] - 11/01/2021 6:48 AM CDT From a [...] AL ORDERABLES Final Result Performing Organization Address City/[facility]/ZIP Co de Phone Number [facility] [address] [place] [address] * Blood culture Blood (10/29/2021 12:32 AM CDT) Report Final Report: No growth [facility] Blood 10/29/2021 12:3 2 AM CDT 10/29/2021 12:43 AM CDT Sukhdev Matias MD LAB MICROBIOLOGY - GENER AL ORDERABLES Final Result Performing Organization Address City/[facility]/ZIP Co de Phone Number [facility] [address] Department [place] [address] * (ABNORMAL) CBC with auto differential (10/29/2021 12:32 AM CDT) WBC 14.0(H) 3.8 - 9.9 K/cumm [facility] Hgb 10.0(L) 13.0 - 17.5 g/dL [facility] Hct 30.0(L) 38.9 - 50.3 % [facility] Plt 316 150 - 400 K/cumm [facility] MPV 8.3(L) 9.1 - 12.3 fL [facility] RBC 3.43(L) 4.30 - 5.80 M/cumm [facility] MCV 87.5 81.3 - 96.4 fL [facility] MCH 29.2 27.1 - 33.3 pg [facility] MCHC 33.3 32.3 - 35.7 g/dL [facility] RDW CV 13.3 11.1 - 14.9 % [facility] RDW SD 42.8 35.7 - 48.1 fL [facility] NRBC abs 0.00 0.00 - 0.01 K/cumm [facility] Blood 10/29/2021 12:3 2 AM CDT 10/29/2021 12:40 AM CDT Sukhdev Matias MD LAB BLOOD ORDERABLES Fin al Result [facility] [address] Department of Laboratories [place], [place] [id number] * (ABNORMAL) Comprehensive metabolic panel (10/29/2021 12:32 AM CDT) Sodium 130(L) 135 - 145 mmol/L [facility] Potassium, pl 4.2 3.3 - 4.9 mmol/L [facility] Chloride 98 97 - 110 mmol/L [facility] CO2 23 22 - 32 mmol/L [facility] Anion gap 9 2 - 15 mmol/L [facility] BUN 10 8 - 25 mg/dL [facility] Creatinine 0.89 0.80 - 1.30 mg/dL [facility] Glucose 103 70 - 199 mg/dL [facility] Comment: Interpretive Data Fasting glucose >/= 126 [...] 2017. Calcium 8.1(L) 8.5 - 10.3 mg/dL [facility] Bilirubin, total 0.6 0.1 - 1.2 mg/dL [facility] Protein, pl 5.6(L) 6.5 - 8.5 g/dL [facility] Albumin 3.0(L) 3.5 - 5.0 g/dL [facility] Alk phos 83 40 - 130 Units/L [facility] ALT 34 7 - 55 Units/L [facility] AST 32 10 - 50 Units/L [facility] Blood 10/29/2021 12:3 2 AM CDT 10/29/2021 12:38 AM CDT Sukhdev Matias MD LAB BLOOD ORDERABLES [facility] al Result [facility] [address] Department [place] [address] documented in this encounter Visit Diagnoses Diagnosis Severe sepsis (HCC)- Primary 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) Infection following a procedure, deep incisional surgical site, initial encounter History of Clostridium difficile colitis Lumbar stenosis without neurogenic claudication GERD without esophagitis Esophageal reflux Hyponatremia Hyposmolality and/or hyponatremia SIADH (syndrome of inappropriate 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 Moderate malnutrition (CMS/HCC) documented in this encounter Admitting Diagnoses Diagnosis Infection [...] Given 11/05/2021 2:17 PM CDT 1,000 mg acetaminophen (TYLENOL) tablet 650 mg 650 mg, oral, Every 4 hours PRN, 1st line for pain, fever, Starting on Thu10/28/21 at 2229, Administer if patient can swallow tablets., Indications: Fever, PainIndications:Fever,Pain Given 10/29/2021 10:20 AM CDT 650 mg Given 10/29/2021 12:49 AM CDT 650 mg aluminum-magnesium hydroxide-simethicone (MAALOX) 40-40-4 mg/mL oral [...] PO., Starting on Thu10/28/21 at 2229, Indications: constipationIndications:constipat ion bisacodyl EC (DULCOLAX EC) tablet 10 mg 10 mg, oral, Daily PRN, constipation, If no results 24 hours after polyethylene glycol (MIRALAX). May give bisacodyl supp if not tolerating PO), Starting on Thu10/28/21 at 2229, Do not crush, chew, cut, dissolve, open or otherwise manipulate tablet/capsule., Indications: constipationIndications:constipat ion budesonide-formoteroL (SYMBICORT) 160-4.5 mcg/actuation inhaler 2 puff 2 puff, inhalation, 2 times daily PRN (respiratory physician), sob, Starting on Thu10/31/21 at 1202, Rinse mouth with water after use. Do not swallow., I /authorizing provider attest that the patient meets the approved [facility] Use Criteria: Yes cefepime (MAXIPIME) 1,000 mg in sodium chloride 0.9% 100 mL IVPB 1,000 mg, intravenous, at 200 mL/hr, Administer over 30 Minutes, Every 8 hours scheduled, First dose on Thu10/29/21 at 2200, Mini-Bag Plus bag, Indications: Bone/Joint InfectionIndications:Bone/Joint Infection New Bag 11/01/2021 10:54 PM CDT 1,000 mg 200 mL/hr New Bag 11/01/2021 2:46 PM CDT 1,000 mg 200 mL/hr New Bag 11/01/2021 6:11 AM CDT 1,000 mg 200 mL/hr cefTRIAXone (ROCEPHIN) 2,000 mg/20 mL in sterile water (premix) 2,000 mg 2,000 mg, intravenous, at 1,200 mL/hr, Administer over 1 Minutes, Every 24 hours scheduled, First dose on Thu11/06/21 at 1300, Indications: Bone/Joint InfectionIndications:Bone/Joint Infection Given 11/06/2021 1:06 PM CDT 2,000 mg 1200 mL/hr dextrose 5% and sodium chloride 0.45% with potassium chloride 20 mEq/L infusion (premix) 75 mL/hr, intravenous, Continuous, Starting on Thu10/29/21 at 0600 New 10/29/2021 6:42 AM CDT 75 mL/hr 75 mL/hr HYDROmorphone (DILAUDID) injection 0.4 mg 0.4 mg, intravenous, Administer over 2 Minutes, Every 10 min PRN, 1st line for pain, Starting on Thu11/03/21 at 0948, For 5 doses, Phase I, Notify Anesthesiologist if total PACU dose reaches 2 mg and pain score 5/10 or more., Indications: PainIndications:Pain Given 11/03/2021 10:12 AM CDT 0.4 mg Given 11/03/2021 10:02 AM CDT 0.4 mg ioversoL (OPTIRAY 350) syringe 100 mL 100 mL, intravenous, Once in imaging, contrast, Starting on 11/02/21 at 1006, For 1 dose Contrast Given 11/02/2021 10:12 AM CDT 80 mL Lactated Ringer's (LR) infusion 50 mL/hr, intravenous, Continuous, Starting on Thu10/29/21 at 2030, Phase I, Rate/Dose Verify 10/30/2021 5:38 AM CDT 50 mL/hr 50 mL/hr New Bag 10/29/2021 10:37 PM CDT 50 mL/hr 50 mL/hr meropenem (MERREM) 1,000 mg in sodium chloride [...] 8:47 AM CDT 1,000 mg 200 mL/hr morphine injection 2 mg 2 mg, [...] PRN, 1st line for pain, pain score 7-10, Starting on Thu10/29/21 at 2117, Indications: PainIndications:Pain Given 11/02/2021 8:20 PM CDT 1 0 mg Given 11/01/2021 11:52 PM CDT 10 mg Given 11/01/2021 8:08 PM CDT 10 mg oxyCODONE (ROXICODONE) tablet 10 mg 10 mg, oral, Every 4 hours PRN, 1st line for pain, pain score 5-7, Starting on Thu11/03/21 at 1129, Indications: PainIndications:Pain Given 11/06/2021 12:24 AM CDT 10 mg Given 11/05/2021 8:37 PM CDT 10 mg Given 11/04/2021 9:09 PM CDT 10 mg oxyCODONE (ROXICODONE) tablet 5 mg 5 mg, oral, As needed, 1st line for pain, Starting on Thu10/29/21 at 1946, For 2 doses, Phase I, 1st ORAL choice for pain, when the patient is able to tolerate PO medications. May repeat in 1 hour if pain is uncontrolled or increasing after 1st dose., Indications: PainIndications:Pain Given 10/29/2021 8:10 PM CDT 5 mg oxyCODONE (ROXICODONE) tablet 5 mg 5 mg, oral, Every 4 hours PRN, 1st line for pain, pain score 3-6, Starting on Thu10/29/21 at 2117, Indications: PainIndications:Pain Given 10/30/2021 8:22 AM CDT 5 mg oxyCODONE (ROXICODONE) tablet 5 mg 5 mg, oral, As needed, 1st line for pain, Starting on Thu11/03/21 at 0948, For 2 doses, Phase I, 1st ORAL choice for pain, when the patient is able to tolerate PO medications. May repeat in 1 hour if pain is uncontrolled or increasing after 1st dose., Indications: PainIndications:Pain Given 11/03/2021 10:28 AM CDT 5 mg oxyCODONE (ROXICODONE) tablet 5 mg 5 mg, oral, Every 4 hours PRN, 2nd line for pain, Starting on Thu11/04/21 at 1019, Indications: PainIndications:Pain Given 11/04/2021 2:14 PM CDT 5 mg oxyCODONE (ROXICODONE) tablet 5 mg 5 mg, oral, Once, On Thu11/04/21 at 1615, For 1 dose, Indications: PainIndications:Pain Given 11/04/2021 3:49 PM CDT [address] (PROTONIX) [...] Given 11/05/2021 8:43 AM CDT 1 drop pregabalin (LYRICA) capsule 150 mg 150 mg, [...] type, size, and protocol. sodium chloride 0.9% infusion 75 mL/hr, intravenous, Continuous, Starting on Thu11/03/21 at 1315, For 1 day New Bag 11/03/2021 2:58 PM CDT 75 mL/hr 75 mL/hr tiZANidine (ZANAFLEX) tablet 4 mg 4 mg, oral, Every 6 hours PRN, muscle spasms, Starting on Thu10/30/21 at 0834, Administer on an empty stomach, Indications: Muscle SpasmIndications:Muscle Spasm Given 11/04/2021 4:44 AM CDT 4 mg vancomycin (VANCOCIN) capsule 125 mg 125 mg, oral, Every 6 hours scheduled, First dose (after last modification) on Thu10/30/21 at 0000, For 13 doses, Indications: Clostridioides difficile infectionIndications:Clostridioide s difficile infection Given 11/01/2021 10:54 PM CDT 125 mg Given 11/01/2021 5:20 PM CDT 125 mg Given 11/01/2021 11:55 AM CDT 125 mg vancomycin (VANCOCIN) capsule 125 mg 125 mg, oral, Daily, First dose (after last reorder) on Thu11/02/21 at 0900, Indications: Clostridioides difficile infectionIndications:Clostridioides difficile infection Given 11/06/2021 9:16 AM CDT 125 mg Given 11/05/2021 8:40 AM CDT 125 mg Given 11/04/2021 8:57 AM CDT 125 mg vancomycin 1250 mg/250 mL in sodium chloride 0.9% (premix) 1,250 mg 1,250 mg, intravenous, Administer over 60 Minutes, Every 12 hours, First dose on Thu10/30/21 at 0500, Indications: Bone/Joint InfectionIndications:Bone/Joint Infection New Bag 10/30/2021 5:33 AM CDT 1,250 mg documented in this encounter Discontinued Medications [...] at 2200 0555 (Given - Provider: Kitty Martin RN)1408 (Given - Provider: Robyn Lakhani RN)2109 (Given - Provider: Kitty Martin, RN) 0523 (Given - Provider: Kitty Martin RN)1417 (Given - Provider: Aretha Sue RN)2301 (Not Given - Provider: Selene Ashley, RN - Reason: Patient/family refused) 0612 (Given - Provider: Selene Ashley, RN)1306 (Given - Provider: Mihaela Nails, ZEYNEP) [...] Anesthesia 1820 (Canceled Entry - Provider: Aretha Sue RN) meropenem (MERREM) 1,000 mg in sodium chloride 0.9% 100 mL IVPB (CANCELED) 1,000 mg, intravenous, at 200 mL/hr, Administer over 30 Minutes, Every 8 hours, First dose on Thu11/02/21 at 0900, Mini-Bag Plus bag, Indications: Bone/Joint Infection 0048 (New Bag - Provider: Kitty Martin RN)0904 (New Bag - Provider: Robyn Lakhani, ZEYNEP)1735 (New Bag - Provider: Robyn Lakhani RN) 0113 (New Bag - Provider: Kitty Martin RN)0847 (New Bag - Provider: Aretha Sue, RN)1820 (New Bag - Provider: Aretha Sue, RN - Comment: was waiting for picc verification//xray) 0156 (New Bag - Provider: Selene Pratima, RN) oxyCODONE (ROXICODONE) tablet 5 mg (COMPLETED) [...] Sue RN) 0916 (Given - Provider: Mihaela Nails RN) polyvinyl alcohol (LIQUIFILM TEARS) 1.4 % ophthalmic [...] at 1630 1414 (Given - Provider: Robyn Lakhani, ZEYNEP) 1418 (Given - Provider: Aretha Sue, ZEYNEP) sodium chloride 0.9% flush 0.5-20 mL 0.5-20 mL, intra-catheter, Every 8 hours scheduled, First dose on Thu10/28/21 at 2300, Flush volume based on line type and size. 0558 (Not Given - Provider: Kitty Martin RN - Reason: IV Infusing)1408 (Given - Provider: Robyn Lakhani, ZEYNEP)2113 (Given - Provider: Kitty Martin, ZEYNEP) 0524 (Given - Provider: Kitty Martin RN)1418 [...] based on line type, size, and protocol. 2031 (Given - Provider: Selene Ashley RN) 0918 (Given - Provider: Mihaela Nails, ZEYNEP) vancomycin (VANCOCIN) capsule 125 mg 125 mg, oral, Daily, First dose (after last reorder) on Thu11/02/21 at 0900, Indications: Clostridioides difficile infection 0857 (Given - Provider: Robyn Lakhani, ZEYNEP) 0840 (Given - Provider: Aretha Sue, ZEYNEP) [...] constipation 1418 (Not Given - Provider: Aretha Sue RN - Reason: Patient/family refused) budesonide-formoteroL (SYMBICORT) 160-4.5 mcg/actuation inhaler 2 puff 2 puff, inhalation, 2 times daily PRN (respiratory physician), sob, Starting on Audrey 10/31/21 at 1202, Rinse mouth with water after use. Do not swallow., I /authorizing provider attest that the patient meets the approved [facility] Use Criteria: Yes dextrose (D10W) 10% bolus 250 mL 250 mL, intravenous, at 1,000 mL/hr, Administer over 15 Minutes, Once as needed, blood glucose less than 70 mg/dL, Starting on Thu11/03/21 at 1123, Pre-Op, Indications: Hypoglycemia morphine injection 2 mg 2 mg, intravenous, Administer over 4 Minutes, Every 3 hours PRN, 3rd line for pain, Starting on Thu11/03/21 at 1129 ondansetron (ZOFRAN) injection 4 mg(Linked [...] 5-7, Starting on Thu11/03/21 at 1129, Indications: Pain 0051 (Given - Provider: Kitty Martin RN)005 (Not Given - Provider: Kitty Martin RN - Reason: Other - Comment: epic error)2108 (Given - Provider: Kitty Martin RN) 08 (Not Given - Provider: Aretha Sue RN - Reason: Patient/family refused)2036 (Given - Provider: Selene Ashley, RN) 002 (Given - Provider: Selene Ashley RN)917 (Return to [facility] - Provider: Mihaela Nails RN) oxyCODONE (ROXICODONE) tablet 5 mg 5 mg, oral, Every 4 hours PRN, 2nd line for pain, Starting on Thu11/04/21 at 1019, Indications: Pain 1414 (Given - Provider: Robyn Lakhani RN) 2031 (Not Given - Provider: Selene Ashley, RN - Reason: Patient/family refused) polyethylene glycol (MIRALAX) packet 17 g 17 g, oral, Daily PRN, constipation, Starting on Thu10/28/21 at 2229, Indications: constipation ramelteon (ROZEREM) tablet 8 mg 8 mg, oral, Nightly PRN, sleep, Starting on Thu10/30/21 at 0016, Indications: Sleep-Onset Insomnia 0051 (Given - Provider: Kitty Martin RN)005 (Not Given - Provider: Kitty Martin RN - Reason: Other - Comment: epic error) 011 (Given - Provider: Kityt Martin RN) 0028 (Given - Provider: Selene [...] Count Last Ordered Date First Ordered Date lidocaine PF (XYLOCAINE) 10 mg/mL (1 %) preservative free injection 10-20 mg 1 11/05/2021 sodium chloride 0.9% flush 5-20 mL 1 2021 polyethylene glycol (MIRALAX) packet 17 g 2 11/04/2021 10/28/2021 albuterol 2.5 mg /3 mL (0.08 3 %) nebulizer solution 2.5 mg 2 11/03/2021 10/29/2021 dextrose (D10W) 10% bolus 250 mL 1 11/04/19 diphenhydrAMINE (BENADRYL) i njection 12.5 mg 2 11/03/2021 10/29/2021 fentaNYL (SUBLIMAZE) preserv ative free injection 25 mcg 2 11/03/2021 10/29/2021 haloperidol (HALDOL) injection 1 mg 2 11/0310/29/2021 insulin lispro (HumaLOG, ADM ELOG) 100 unit/mL injection 1-5 Units 2 11/03/2021 10/29/2021 labetaloL (NORMODYNE,TRANDAT E) injection 5 mg 2 11/03/2021 10/29/2021 meperidine (DEMEROL) preserv ative free injection 12.5 mg 2 11/03/2021 10/29/2021 naloxone (NARCAN) 0.4 mg/mL injection 0.04-0.4 mg 2 11/03/2021 10/29/2021 ondansetron (ZOFRAN) injection 4 mg 3 11/0310/28/2021 oxyCODONE (ROXICODONE) tablet 15 mg 1 11/03 povidone-iodine (BETADINE) 2 2.5 mL in sodium chloride 0.9% 1,000 mL irrigation 1 11/03/2021 racepinephrine (ASTHMANEFRIN ) 2.25 % nebulizer solution 0.5 mL 2 11/03/2021 10/29/2021 sodium chloride 0.9% irrigation 2 2 10/29/2021 tobramycin (NEBCIN) topical irrigation 1 ertapenem (INVanz) injection 1,000 mg 1 07/2021 budesonide-formoteroL (SYMBI JOHNNY) 160-4.5 mcg/actuation inhaler 2 puff 3 10/31/2021 10/30/2021 morphine injection 2 mg 1 10/30/2021 pregabalin (LYRICA) capsule 150 mg 1 2021 pregabalin (LYRICA) capsule 300 mg 2 2021 rOPINIRole (REQUIP) tablet 2 mg 2 2 ceFAZolin (ANCEF) injection 1 10/29/2021 HYDROmorphone (DILAUDID) injection 0.2 mg 1 10/29/2021 HYDROmorphone (DILAUDID) injection 0.4 mg 1 10/29/2021 Lactated Ringer's (LR) infusion 1 2 lidocaine PF (XYLOCAINE) 10 mg/mL (1 %) preservative free injection 2-10 mg 1 10/29/2021 morphine injection 4 mg 1 10/29/2021 oxyCODONE (ROXICODONE) tablet 5 mg 1 2021 polymyxin B injection 1 10/29/2021 sodium chloride 0.9% flush 0.5-20 mL 2 0 04/202110/28/2021 vancomycin (VANCOCIN) 1,000 mg, gentamicin (GARAMYCIN) 80 mg in sodium chloride 0.9% 1,000 mL solution 1 10/29/2021 vancomycin (VANCOCIN) capsule 125 mg 4 08/04/2021 vancomycin (VANCOCIN) solution 1 10/29/2021 vancomycin 1250 mg/250 mL in sodium chloride 0.9% (premix) 1,250 mg 1 10/29/2021 acetaminophen (TYLENOL) 32 m g/mL oral solution 650 mg 1 10/28/2021 acetaminophen (TYLENOL) suppository 650 mg 1 10/28/2021 bisacodyL (DULCOLAX) suppository 10 mg 1 bisacodyl [...] 10/28/2021 documented in this encounter Care Teams Cigar Head Stringer Relationship Specialty Start Date End Date Anil Gupta MD [address] [place] [address] PCP - General Internal Medicine 04/19/21 Anil Gupta MD [address] [place] [address] Internal Medicine 04/19/21 Kristine Young MD [address] [facility] [address] [place] [address] Consulting Physician Infectious Diseases 11/06/21 documented as of this encounter
--- OUTSIDE RECORDS SUMMARY | 2024-03-19 07:31 | XMS_ITS | Encounter Summary ---
Author Organization [facility] Address [address] [place] [address] Care Team Providers Care Gravity Meter Observer Name Role Phone Anil Gupta MD Primary Care Provider [phone] Anil Gupta MD Unavailable [phone] Encounter Details Date Type Department Care Team (Late st Contact Info) Description 10/11/2021 Orders Only [facility] [address] [place] [address] Jayy Granger MD [address] [facility] [address] [place] [address] Social History Tobacco Use Types Packs/Day Years Used Date Smoking Tobacco: Never Smokeless Tobacco: Never Alcohol Use Standard Drinks/Week Comments Yes 0 (1 standard drink = 0.6 oz pur e alcohol) AUDIT-C Answer Date Recorded Q1: How often do you have a drink containing alcohol? 4 or more times a week 10/02/2021 Q2: How many drinks containi ng alcohol do you have on a typical day when you are drinking? 1 or 2 Q3: How often do you have si x or more drinks on one occasion? Never 10/02/2021 PHQ-2 Answer Date Recorded PHQ-2 Total Score (If total score is 3 or more points, staff should administer the PHQ-9) 0 04/18/2021 Sex and Gender Information Value Date Recorded Sex Assigned at Not on file Legal Sex Male 12:56 PM BALL RACKER Gender Identity Male 05/23/2021 12:08 PM BALL RACKER Sexual Orientation Straight 05/23/2021 12 :08 PM BALL RACKER documented as of this encounter Ordered Prescriptions Prescription Sig Dispense Quantity Refills Last Filled Start Date End Date tiZANidine (ZANAFLEX) 4 mg tabletIndications: Muscle Spasm Take 1 tablet (4 mg total) by mouth every 6 (six) hours as needed for muscle spasms 90 tablet 2 10/11/2021 3 oxyCODONE-acetamin ophen (Percocet) 5-325 mg per tabletIndications: Pain Take 1-2 tablets by mouth every 4 (four) hours as needed for pain for up to 14 days Maximum 6 tablets/day 90 tablet 10/18/2021 2 oxyCODONE-acetamin ophen (Percocet) 5-325 mg per tabletIndications: Pain Take 1-2 tablets by mouth every 4 (four) hours as needed for pain for up to 7 days Maximum 8 tabs/day 56 tablet 10/11/2021 2 documented in this encounter Plan of Treatment Not on file documented as of this encounter Visit Diagnoses Not on filedocumented in this encounter Care Teams Gravity Meter Observer Relationship Specialty Start Date End Date Anil Gupta MD [address] [place] [address] PCP - General Internal Medicine 04/19/21 Anil Gupta MD [address] [place] [address] Internal Medicine 04/19/21 documented as of this encounter
--- OUTSIDE RECORDS SUMMARY | 2024-03-19 07:31 | XMS_ITS | Encounter Summary ---
Author Organization [facility] Address [address] [facility] [address] [place] [address] Care Team Providers Care Glass Calibrator Name Role Phone Anil Gupta MD Primary Care Provider [phone] Anil Gupta MD Unavailable [phone] Reason for Visit * Reason Onset Date Comments Plan of Care 07/22/2021 Encounter Details Date Type Department Care Team (Late st Contact Info) Description 07/22/2021 Telephone [facility] [address] [facility] [address] [address] Lacy Kuhn, RN Plan of Care Social History Tobacco Use Types Packs/Day Years Used Date Smoking Tobacco: Never Smokeless Tobacco: Never Alcohol Use Standard Drinks/Week Comments Yes 0 (1 standard drink = 0.6 oz pur e alcohol) AUDIT-C Answer Date Recorded Q1: How often do you have a drink containing alcohol? 4 or more times a week 05/30/2021 Q2: How many drinks containi ng alcohol do you have on a typical day when you are drinking? 1 or 2 Q3: How often do you have si x or more drinks on one occasion? Never 05/30/2021 PHQ-2 Answer Date Recorded PHQ-2 Total Score (If total score is 3 or more points, staff should administer the PHQ-9) 0 04/18/2021 Sex and Gender Information Value Date Recorded Sex Assigned at Not on file Legal Sex Male 12:56 PM TUMBLER TENDER Gender Identity Male 05/23/2021 12:08 PM TUMBLER TENDER Sexual Orientation Straight 05/23/2021 12 :08 PM TUMBLER TENDER documented as of this encounter Miscellaneous Notes * Telephone Encounter - Lacy Kuhn RN - 07/22/2021 2:28 PM CDT Patient calls after having Right L5-S1 injection completed last . States he had about 1.5-2days of really good relief - said he felt great. Since then the pain has returned back to where it was. He is asking where to go from here. at [facility] discussed he may have another injection in a couple weeks but pt hesitant as insurance only covers 3 injections/year. Asking if another injection in that area would do the trick or if it would be a bandaid? Where should he go from here? Please advise. documented in this encounter Plan of Treatment Not on file documented as of this encounter Visit Diagnoses Not on filedocumented in this encounter Care Teams Glass Calibrator Relationship Specialty Start Date End Date Anil Gupta MD [address] [place] [address] PCP - General Internal Medicine 04/19/21 Anil Gupta MD [address] [place] [address] Internal Medicine 04/19/21 documented as of this encounter
--- OUTSIDE RECORDS SUMMARY | 2024-03-19 07:31 | XMS_ITS | Encounter Summary ---
Author Organization [facility] Address [address] [facility] [address] [place] [address] Care Team Providers Care Gi Asst Name Role Phone Anil Gupta MD Primary Care Provider [phone] Reason for Referral * MRI/CAT/PET Scan (Routine) - Closed Specialty Diagnoses / Procedures Referred By Contac t Referred To Contact Radiology Procedures MRI Lumbar Spine WO Contrast [facility] [place] [address] [place] [address] [address], [place] [address] Phone: tel: fax: Referral ID Status Reason Start Date Expiration Date Visits Re quested Visits Authorized [id number] Closed 04/23/2021 05/23/2022 1 1 NICAL PHOTOGRAPHER Reason for Visit * Reason Comments Pain Encounter Details Date Type Department Care Team (Late st Contact Info) Description 04/18/2021 2:30 PM TECHNICAL PHOTOGRAPHER Office Visit [facility] [place] [address] [place] [address] [address], [place] [address] Jayy Granger MD [address] [facility] [address] [place] [address] Lumbar stenosis without neurogenic claudication (Primary Dx) Social History Tobacco Use Types Packs/Day Years Used Date Smoking Tobacco: Never Smokeless Tobacco: Never Alcohol Use Standard Drinks/Week Comments Yes 0 (1 standard drink = 0.6 oz pur e alcohol) AUDIT-C Answer Date Recorded Q1: How often do you have a drink containing alcohol? 4 or more times a week 04/18/2021 Average Number of Drinks Not on file 022 Frequency of Binge Drinking Not on file 03/31 PHQ-2 Answer Date Recorded PHQ-2 Total Score (If total score is 3 or more points, staff should administer the PHQ-9) 0 04/18/2021 Sex and Gender Information Value Date Recorded Sex Assigned at Not on file Legal Sex Male 12:56 PM TECHNICAL PHOTOGRAPHER Gender Identity Male 05/23/2021 12:08 PM TECHNICAL PHOTOGRAPHER Sexual Orientation Straight 05/23/2021 12 :08 PM TECHNICAL PHOTOGRAPHER documented as of this encounter Last Filed Vital Signs Vital Sign Reading Time Taken Comments Blood Pressure 117/88 04/18/2021 2:51 PM TECHNICAL PHOTOGRAPHER Pulse 74 04/18/2021 2:51 PM TECHNICAL PHOTOGRAPHER Temperature - - Respiratory Rate 14 04/18/2021 2:51 PM TECHNICAL PHOTOGRAPHER Oxygen Saturation - - Inhaled Oxygen Concentration - - Weight 87.3 kg (192 lb 6.4 oz) 04/18/2021 2:51 P M TECHNICAL PHOTOGRAPHER Height 180.3 cm (5' 11 ) 04/18/2021 2:51 PM TECHNICAL PHOTOGRAPHER Body Mass Index 26.83 04/18/2021 2:51 PM TECHNICAL PHOTOGRAPHER documented in this encounter Progress Notes * Lacy Kuhn RN - 04/18/2021 2:30 PM CST RN - NEW PATIENT ENCOUNTER CC: Lower back & hip pain Onset Date: Back issues his entire life - did therapy since his teenage years, chiro on/off over the years, increased back issues in recent years Symptoms: c/o pain radiating from left low back radiating through buttock and down left posterolateral thigh and down lateral calf, pain is an aching pain in nature - rates typical pain at 3-5 , denies left sided numb/ting, denies weakness in left leg, C/o pain to right posterior low back - SI joint area - pain can be severe at times - stabbing, painradiates into right hip and down posterolateral right thigh, pain severe and debilitating in right outer calf area, pain in right leg significantly worse with standing and walking any distance, numb/ting can be significant to right leg in same distribution as pain, feels as right leg can give out with walking - not stable at times - especially with going down stairs, Increased pain with flexion as well, can have pain across low back into spine with any increased activity or lifting, with certain pelvic positions he can have electric shock feeling from spine down leg or legs, unable to sleep on left side due to discomfort, increased pain in right hip upon wakingin morning, denies b/b issues Issues subside quickly with sitting Smoking Status: Non-smoker Treating MD'S: Dr. Gupta (PCP/referral), Dr. Doug Landis (neurologist), Dr. 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 HENT: Negative for sore throat. Eyes: Negative for double vision. Respiratory: Negative for cough. Cardiovascular: Negative for chest pain. Gastrointestinal: Negative for abdominal pain. Genitourinary: Negative for dysuria. Musculoskeletal: Positive for back pain. Negative for myalgias. Skin: Negative for rash. Neurological: Positive for tingling. Negative for dizziness. Endo/Heme/Allergies: Does not bruise/bleed easily. Psychiatric/Behavioral: Negative for depression. Oswestry: 31 PHQ: 5 Fall: 2 (low risk) NICAL PHOTOGRAPHER * Jayy Granger MD - 04/18/2021 2:30 PM CST Images from the original note were not included. CC: Low back and hip pain HPI Mr. Horn is a 71 y.o. year old male referred for evaluation of lumbar stenosis and radiculopathy by Anil Gupta MD. The patient reports back pain for his entire life. He did therapy since his teenage years and chiropractic treatment on an off. He reports increased back issues over the last few years. He complains of pain radiating from his left low back through his buttocks and down the left posterolateral thigh lateral calf. He rates it is a 3-5/10. He denies any left-sided numbness or tingling. Denies any weakness in his left leg. He also complains of pain to his right posterior low back the SI joint area that can be severe at times. He reports a stabbing pain that radiates into hisright hip and down the posterolateral right thigh to the outer calf. The pain can be debilitating in the right outer calf. It is worse with standing and walking any distance. He reports numbness and tingling which can be significant the right leg in the same distribution as pain. He feels the rightleg is going to give out while walking sometimes. This occurs especially when going down stairs. He reports some increased pain with flexion as well in low back pain with lifting. He has difficulty sleeping on the left side due to discomfort he has increased pain in the right hip upon wakening. He denies any bowel or bladder issues. He reports that his issue subside quickly with sitting. He has undergone SI injections without relief. Smoking Status: Non-smoker ?? Treating MD'S: Dr. Gupta (PCP/referral), Dr. Doug Landis (neurologist), Dr. Rogelio Bailey (Urology), ?? Treatment: Acupuncture - no relief, PT/Exercise - no relief, Chiro - moderate relief, Injections - moderate relief - nothing termite treater helper - Last injection Feb - L3-4/L4-5 -- no relief, SI joint injections - no relief (Injections at [place], [place]) ?? Tests: September - Pelvic / Lumbar MRI, ?? 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 HENT: Negative for sore throat. Eyes: Negative for double vision. Respiratory: Negative for cough. Cardiovascular: Negative for chest pain. Gastrointestinal: Negative for abdominal pain. Genitourinary: Negative for dysuria. Musculoskeletal: Positive for back pain. Negative for myalgias. Skin: Negative for rash. Neurological: Positive for tingling. Negative for dizziness. Endo/Heme/Allergies: Does not bruise/bleed easily. Psychiatric/Behavioral: Negative for depression. ?? Allergies: No Known Allergies Past Medical History: Diagnosis Date ??? Arthritis ??? GERD (gastroesophageal reflux disease) ??? Peripheral neuropathy ??? Pseudomonas respiratory infection comes and goes - on termite treater helper antibiotics to prevent further mucous build up History reviewed. No pertinent surgical history. Physical Exam: BP 117/88 Pulse 74 Resp 14 Ht 180.3 cm (5' 11 ) Wt 87.3 kg (192 lb 6.4 oz) BMI 26.83 kg/m?? Oswestry: 31 ?? PHQ: 5 ?? Fall: 2 (low risk) Neurological The patient is a well-developed, well-nourished male in no acute distress. He has grossly intact CN II-XII. The patient has 10?? of extension, 80?? of flexion, 80?? of rotation of the right, and 80?? of rotation to the left of the cervical spine. There is 5?? of extension and 90?? of flexion of the lumbar spine. The patient has good range of motion of the bilateral shoulders, elbows, hips and knees. The patient has grossly normal muscle bulk, tone and strength throughout. Sensation is grossly intact to lighttouch. The patient has a negative KARELY sign bilaterally. The patient has a negative piriformis stretch bilaterally. The patient has a positive straight leg raise on the right at 50??. The patient is able to walk on tiptoes and heels. Toes are downgoing. The patient has a normal gait and normal tandem gait. Review of Xrays: MRI the lumbar spine shows moderate lateral recess stenosis at L3-4 and L4-5 bilaterally. There is a disc herniation on the right at L5-S1 with with compression of traversing S1 nerve root. Diagnoses and all orders for this visit: Lumbar stenosis without neurogenic claudication (Primary) Assessment & Plan: Mr. Horn has multilevel lumbar stenosis with a disc herniation at L5-S1 on the right. I think thatthe disc herniation is the most symptomatic and that the lumbar stenosis L3-4 and L4-5 can be followed conservatively. He is very active. We discussed that fusion surgery would likely significantly limit his activities. He is aware that the L3-5 levels may need to be addressed surgically future. I have offered him surgery in the form of right L5-S1 microdiskectomy. This note has been transcribed by voice recognition software and not thoroughly reviewed; it is subject to stitching machine feeder or offbearer variance. Jayy Granger MD, FAANS NICAL PHOTOGRAPHER documented in this encounter Miscellaneous Notes * Assessment & Plan Note - Jayy Granger MD - 04/24/2021 2:11 PM TECHNICAL PHOTOGRAPHER Associated Problem(s): Lumbar stenosis without neurogenic claudication (Resolved 11/13/2021) Mr. Horn has multilevel lumbar stenosis with a disc herniation at L5-S1 on the right. I think thatthe disc herniation is the most symptomatic and that the lumbar stenosis L3-4 and L4-5 can be followed conservatively. He is very active. We discussed that fusion surgery would likely significantly limit his activities. He is aware that the L3-5 levels may need to be addressed surgically future. I have offered him surgery in the form of right L5-S1 microdiskectomy. NICAL PHOTOGRAPHER NICAL PHOTOGRAPHER documented in this encounter Plan of Treatment Not on file documented as of this encounter Procedures Procedure Name Priority Date/Time Associated Diagnosis Comments MRI LUMBAR SPINE WO CONTRAST Schedule Routine, Read Routine (OP Routine) 10/04/2020 documented in this encounter Results * MRI Lumbar Spine WO Contrast (10/04/2020) Anatomical Region Laterality Modality Spine N/A Magnetic Resonan ce Historical Provider MD ANDERSON MRI PROCEDURES Final Result documented in this encounter Visit Diagnoses Diagnosis Lumbar stenosis without neurogenic claudication- Primary documented in this encounter Discontinued Medications Medication Sig Discontinue Reason Start Date End Da te meloxicam (MOBIC) 15 mg tablet TAKE 1 TABLET BY MOUTH EVERY DAY 05/12/2018 04/18/2021 documented as of this encounter Historical Medications * This list may reflect changes made after this encounter. fluticasone propionate (FLONASE) 50 mcg/actuation nasal spray Administer 2 sprays into each nostril 2 (two) times a day ipratropium (ATROVENT) 42 mcg (0.06 %) nasal spray Administer 2 sprays into each nostril 2 (two) times a day rOPINIRole (REQUIP) 2 mg tablet Take 1 tablet (2 mg total) by mouth nightly tiZANidine (ZANAFLEX) 4 mg tablet Take 4 mg by mouth daily as needed for muscle spasms 2 celecoxib (CeleBREX) 200 mg capsule Take 200 mg by mouth daily 2 added in this encounter Care Teams Gi Asst Relationship Specialty Start Date End Date Anil Gupta MD [address] [facility] [address] [facility] [address] [place] [address] PCP - General Internal Medicine 04/18/21 04/18/21 documented as of this encounter"
--- OUTSIDE RECORDS SUMMARY | 2024-03-19 07:31 | XMS_ITS | Encounter Summary ---
Author Organization [facility] Address [address] [facility] [address] [place] [address] Care Team Providers Care Church Communications Administrator Name Role Phone Anil Gupta MD Primary Care Provider [phone] Anil Gupta MD Unavailable [phone] Encounter Details Date Type Department Care Team (Late st Contact Info) Description 05/29/2021 Telephone [facility] [place] [address] [facility] [address] [place] [address] Jazmin Marie ICU TECH [address] [facility] [address] [place] [address] Social History Tobacco Use Types [...] on file Legal Sex Male 12:56 PM LINING STITCHER Gender Identity Male 05/23/2021 12:08 PM LINING STITCHER Sexual Orientation Straight 05/23/2021 12 :08 PM LINING STITCHER documented as of this encounter Miscellaneous Notes * Telephone Encounter - Jazmin Marie NP - 05/29/2021 10:38 AM CST Called patient to discuss surgical instructions. Patient is scheduled to have an L5-S1 right lumbarmicrodiskectomy with Dr. Jayy Granger on June 03, 2021. Diagnosis/code: M 54.16 lumbar radiculopathy. Patient aware to arrive at 8 a.m at [facility] for surgery at 10 am. We reviewed pre and postop care, hospitalization, follow-up appointment, meds, activity restrictions. Patient to see SEC tomorrow for preop testing and medical clearance. Patient has been instructed to hold anti-inflammatories including aspirin therapy 7 days prior to surgery. Patient is a nonsmoker. Patient does well with the use of Percocet and Zanaflex. Patient has surgical folder and Antibacterial wipes per SEC. Pt to drop off MRI CD day of SEC. We discussed risks, alternatives and benefits to surgery with risks including, but not limited to, bleeding, infection, coma, , heart attack, stroke, paralysis, loss of vision, CSF leak, spinal instability requiring future operations, failure to relieve symptoms, bowel & bladder, dysfunction and sexual dysfunction. Patient verbalizes understanding and voices no other concerns or questions at this time. NG STITCHER documented in this encounter Plan of Treatment Not on file documented as of this encounter Visit Diagnoses Not on filedocumented in this encounter Care Teams Church Communications Administrator Relationship Specialty Start Date End Date Anil Gupta MD [address] [place] [address] PCP - General Internal Medicine 04/19/21 Anil Gupta MD [address] [place] [address] Internal Medicine 04/19/21 documented as of this encounter
--- OUTSIDE RECORDS SUMMARY | 2024-03-19 07:31 | XMS_ITS | Encounter Summary ---
Author Organization [facility] Address [address] [facility] [address] [place] [address] Care Team Providers Care Amortization Schedule Clerk Name Role Phone Anil Gupta MD Primary Care Provider [phone] Anil Gupta MD Unavailable [phone] Encounter Details Date Type Department Care Team (Late st Contact Info) Description 07/24/2021 Telephone [facility] [place] [address] [facility] [address] [place] [address] Jazmin Marie INDUSTRIAL MACHINE OPERATOR [address] [facility] [address] [place] [address] Social History Tobacco Use Types [...] on file Legal Sex Male 12:56 PM LAP MAKER Gender Identity Male 05/23/2021 12:08 PM LAP MAKER Sexual Orientation Straight 05/23/2021 12 :08 PM LAP MAKER documented as of this encounter Miscellaneous Notes * Telephone Encounter - Jazmin Marie NP - 07/24/2021 12:59 PM CDT Called patient with below results and recommendations. Patient states he will follow-up with us 2ndinjection with [facility]. But in the interim he would like to be placed on the surgery schedule for the next available. Explained to the patient will likely walking into the week of August at this moment. Patient verbalizes understanding. We will have Melissa set up and call the patient to schedule. MRI of the lumbar spine is in the nurse's office and will be given to Cristopher into downloaded into [employer] ----- Message from Jayy Granger MD sent at 07/23/2021 4:50 PM CDT ----- The patient underwent a selective nerve root injection at L5-S1 right with very relief of symptoms for 1.5 days. Given this, the foraminal stenosis at L5-S1 is likely the culprit of his continued symptoms. I would offer him surgery in the form of L5-S1 decompression and fusion with complete Gottlieb procedure verses further injections. documented in this encounter Plan of Treatment Not on file documented as of this encounter Visit Diagnoses Not on filedocumented in this encounter Care Teams Amortization Schedule Clerk Relationship Specialty Start Date End Date Anil Gupta MD [address] [place] [address] PCP - General Internal Medicine 04/19/21 Anil Gupta MD [address] [place] [address] Internal Medicine 04/19/21 documented as of this encounter
--- OUTSIDE RECORDS SUMMARY | 2024-03-19 07:31 | XMS_ITS | Encounter Summary ---
Author Organization [facility] Address [address] [place] [address] Care Team Providers Care Tobacco Stripping Machine Operator Name Role Phone Anil Gupta MD Primary Care Provider [phone] Anil Gupta MD Unavailable [phone] Encounter Details Date Type Department Care Team (Late st Contact Info) Description 10/28/2021 Orders Only [facility] [place] [address] Marin Phelan MD [address] [place] [address] [place] [address] Social History Tobacco Use Types [...] often do you attend chur ch or adventist services? 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 Gender Identity Male 05/23/2021 12:08 PM SPORTS WRITER Sexual Orientation Straight 05/23/2021 12 :08 PM SPORTS WRITER documented as of this encounter Plan of Treatment Not on file documented as of this encounter Visit Diagnoses Not on filedocumented in this encounter Care Teams Tobacco Stripping Machine Operator Relationship Specialty Start Date End Date Anil Gupta MD [address] [place] [address] PCP - General Internal Medicine 04/19/21 Anil Gupta MD [address] [place] [address] Internal Medicine 04/19/21 documented as of this encounter
--- OUTSIDE RECORDS SUMMARY | 2024-03-19 07:31 | XMS_ITS | Encounter Summary ---
Author Organization [facility] Address [address] [place] [address] Phone Care Team Providers Care Felt Dyeing Machine Tender Name Role Phone Anil Gupta MD Primary Care Provider [phone] Anil Gupta MD Unavailable [phone] Encounter Details Date Type Department Care Team (Late st Contact Info) Description 05/16/2021 Orders Only [facility] Neurosurgery [address] [facility] [address] [place] [address] Graciela Bell, ABDI [address] [place], [place] [id number] Lumbar pain (Primary Dx) Social History Tobacco Use Types Packs/Day Years Used Date Smoking Tobacco: Never Assessed AUDIT-C Answer Date Recorded Q1: How often [...] on file Legal Sex Male 12:56 PM MANAGER RFID Gender Identity Male 05/23/2021 12:08 PM MANAGER RFID Sexual Orientation Straight 05/23/2021 12 :08 PM MANAGER RFID documented as of this encounter Progress Notes * Reema Grover MA - 05/16/2021 8:00 PM CST ca GER RFID documented in this encounter Plan of Treatment Not on file documented as of this encounter Visit Diagnoses Diagnosis Lumbar pain- Primary Lumbago documented in this encounter Care Teams Felt Dyeing Machine Tender Relationship Specialty Start Date End Date Anil Gupta MD [address] [place] [address] PCP - General Internal Medicine 04/19/21 Anil Gupta MD [address] [place] [address] Internal Medicine 04/19/21 documented as of this encounter
--- OUTSIDE RECORDS SUMMARY | 2024-03-19 07:31 | XMS_ITS | Encounter Summary ---
Author Organization [facility] Healthcare Address [address] [place] [address] Care Team Providers Care Shellfish Checker Name Role Phone Sukhdev Santos MD Primary Care Provider [phone] Encounter Details Date Type Department Care Team (Latest Contact Info) Description 10/04/2020 - 10/04/2020 12:04 AM CDT Hospital Encounter - Imaging [phone] Discharge Disposition: Discharge to home or self care Social History Tobacco Use Types Packs/Day Years Used Date Smoking Tobacco: Never Smokeless Tobacco: Never Alcohol Use Standard Drinks/Week Comments Yes 0 (1 standard drink = 0.6 oz pur e alcohol) Sex and Gender Information Value Date Recorded Sex Assigned at Not on file Legal Sex Male 12:56 PM ROTOR WINDER Gender Identity Male 05/23/2021 12:08 PM ROTOR WINDER Sexual Orientation Straight 05/23/2021 12 :08 PM ROTOR WINDER documented as of this encounter Medications at Time of Discharge benralizumab (Fasenra) 30 mg/mL syringe Inject 1 mL (30 mg total) under the skin Gets every 2 month- next dose on 03/07/2024 12/12/2019 azithromycin (ZITHROMAX) 500 mg tablet Take 500 mg by mouth 3 (three) times a week 2 lansoprazole (Prevacid) 30 mg capsule 1 capsule (30 mg total) 06/22/2015 4 LYRICA 150 mg capsule Take 2 capsules (300 mg total) by mouth daily 03/17/2018 3 meloxicam (MOBIC) 15 mg tablet TAKE 1 TABLET BY MOUTH EVERY DAY 30 tablet 05/12/2018 2 nebulizer accessories misc See Instructions, 1 each, 1 each, Route to Pharmacy Electronically, [facility]/pharmacy #[id number], [id number], Instructions Replace Required Details, Supply 12/12/2019 4 valACYclovir (VALTREX) 500 mg tablet Take 500 mg by mouth daily 3 valACYclovir (VALTREX) 500 mg tablet 1 tablet (500 mg total) 06/22/2015 4 documented as of this encounter Discharge Disposition Disposition Code Departure Means Destination Discharge to home or self care documented in this encounter Plan of Treatment Not on file documented as of this encounter Procedures Procedure Name Priority Date/Time Associated Diagnosis Comments MRI TRANSFER OF OUTSIDE FILMS Routine 10/04/2020 12:00 AM CDT documented in this encounter Results * MRI Outside Reference (10/04/2020 12:00 AM CDT) Narrative RAD_PACS_OUTSIDE_FILM_[facility] - 05/31/2021 11:25 AM ROTOR WINDER This order has been auto-finalized and does not contain a result. us Osmel Mittal MD IMG MRI PROCEDURES Final Resu lt RAD_PACS_OUTSIDE_FILM_[facility] documented in this encounter Visit Diagnoses Not on filedocumented in this encounter Care Teams Shellfish Checker Relationship Specialty Start Date End Date Sukhdev Santos MD PCP - General Internal Medicine 04/01/18 04/17/21 documented as of this encounter
--- OUTSIDE RECORDS SUMMARY | 2024-03-19 07:31 | XMS_ITS | Encounter Summary ---
Author Organization [facility] Address [address] [place] [address] Care Team Providers Care Instructional Support Assistant Name Role Phone Anil Gupta MD Primary Care Provider [phone] Anil Gupta MD Unavailable [phone] Reason for Visit * Reason Comments Post-op Follow-up S/P Right L5-S1 Micr odiscectomy - 06/03/2021 Encounter Details Date Type Department Care Team (Latest Contact Info) Description 07/16/2021 11:00 AM CDT Office Visit [facility] [place] [address] [place] [address] Jayy Granger MD [address] [place] [address] Lumbar radiculopathy (Primary Dx) Social History Tobacco Use Types [...] on file Legal 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 Gender Identity Male 05/23/2021 12:08 PM HEARING AND SPEECH ASSISTANT Sexual Orientation Straight 05/23/2021 12 :08 PM HEARING AND SPEECH ASSISTANT documented as of this encounter Last Filed Vital Signs Vital Sign Reading Time Taken Comments Blood Pressure - - Pulse - - Temperature - - Respiratory Rate 14 07/16/2021 11:3 6 AM CDT Oxygen Saturation - - Inhaled Oxygen Concentration - - Weight 86.1 kg (189 lb 13.1 oz) 022 11:36 AM CDT Height 182.9 cm (6') 07/16/2021 11:36 AM CDT Body Mass Index 25.74 07/16/2021 11:36 AM CDT documented in this encounter Progress Notes * Lacy Kuhn RN - 07/16/2021 11:00 AM CDT RN PROGRESS NOTE - FOLLOW UP S/P Right L5-S1 Microdiscectomy - 06/03/2021 Last seen by Jazmin - 07/08/21 -- increased right leg pain following surgery Started in Right SI area radiating into right buttock and posterolateral right leg and down side ofcalf Worse with sitting/standing/walking Medrol dospak - no relief New MRI completed - I reviewed the films that show no recurrent disc herniation at L5-S1. There was a wide decompression. There is significant facet arthropathy and synovial cyst at L3-4. We will get flexion-extension films to look for any instability. If there is instability, he may benefit from L3-4 decompression and fusion. In the absence of instability, he would likely benefit from injections. ?? Xrays completed ?? Severe stabbing pain to right beltline area - presents with any movement or position ?? Continued severe pain to right leg - burning sharp pain to right outer calf area ?? Worsening pain with weight bearing to right leg ?? Weakness felt in right leg - gives out at times - feels may be due to pain * Jayy Granger MD - 07/16/2021 11:00 AM CDT Images from the original note were not included. Follow-up Office Visit: Mr. Horn status post right L5-S1 microdiskectomy on 06/03/2021. Reports increasing right leg pain home surgery. This being the SI area and now extends into the right buttocksand posterolateral right leg and lateral aspect of his have. Reports that it is worse with sitting and standing and walking. He underwent a postoperative MRI that showed no recurrent disc herniation or residual disc herniation. There is no compression of the S1 nerve root. The canal and proximal foramen are well decompressed. There is some extraforaminal stenosis is at L5-S1 on the right due to extraforaminal stenosis from a disc bulge. This is also the reading by radiology. I reviewed the flexi on-extension films that show no instability. He has a known sacral expansile lesion that does not enhance with contrast and was felt to be benign by Radiology. He has no accompanying bowel or bladderdysfunction to correlate to this. He also has known facet arthropathy at L3-4 on the right with a synovial cyst. He reports that there is a severe stabbing sensation on the right at the belt line. Hehas worsening of pain with weight-bearing. He feels that his right leg gives out at times. Physical Examination: On examination, he favors his right leg. He has good strength throughout except for some very trace weakness of right dorsiflexion. He has negative straight leg raise to 90?? bilaterally. He is able walk on tiptoes and heels. He is in obvious discomfort. Review of X-rays: MRI per HPI Diagnoses and all orders for this visit: Lumbar radiculopathy (Primary) Assessment & Plan: Mr. Horn is status post right L5-S1 [...] be both diagnostic and therapeutic. We will speakto him by phone about results after the injections. This document was created using speech voice [...] provider's office for clarification. Jayy Granger MD, [facility] Neurological Surgery documented in this encounter Miscellaneous Notes * Assessment & Plan Note - Jayy Granger MD - 07/16/2021 2:07 PM CDT Associated Problem(s): Lumbar radiculopathy (Resolved 11/13/2021) Mr. Horn is status post right L5-S1 [...] be both diagnostic and therapeutic. We will speakto him by phone about results after the injections. documented in this encounter Plan of Treatment Not on file documented as of this encounter Visit Diagnoses Diagnosis Lumbar radiculopathy- Primary Thoracic or lumbosacral neuritis or radiculitis, unspecified documented in this encounter Discontinued Medications Medication Sig Discontinue Reason Start Date End Da te methylPREDNISolone (MEDROL DOSEPACK) 4 mg Dosepack Take as directed on package Therapy completed 06/20/2021 07/16/2021 documented as of this encounter Care Teams Instructional Support Assistant Relationship Specialty Start Date End Date Anil Gupta MD [address] [place] [address] PCP - General Internal Medicine 04/19/21 Anli Gupta MD [address] [place] [address] Internal Medicine 04/19/21 documented as of this encounter
--- OUTSIDE RECORDS SUMMARY | 2024-03-19 07:31 | XMS_ITS | Encounter Summary ---
Author Organization [facility] Address [address] [place] [address] Care Team Providers Care Diesel Fitter Mechanic Name Role Phone Anil Gupta MD Primary Care Provider [phone] Anil Gupta MD Unavailable [phone] Reason for Visit * Reason Onset Date Comments Updated Surgery Date 10/01/2021 Encounter Details Date Type Department Care Team (Late st Contact Info) Description 10/01/2021 Telephone [facility] [place] [address], [place] [address] Lacy Kuhn, ZEYNEP Updated Surgery Date Social History Tobacco Use Types Packs/Day Years [...] on file Legal 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 Granger at [facility]. Patient aware toarrive at 5:30am for surgery at 7:30am. Patient to have [facility] appointment on 10/11/21. Folder previously mailed. Images available via [facility] F/u appt set for 10/21/21 with RN for staple removal and 11/20/21 with TJS and xrays. Spoke with patient as well regarding surgery information. We reviewed surgery information using additional pamphlets and brochures previously mailed to the patient. We discussed hospitalization, surgical shower (soap per [facility]), pre/post op care, activity restrictions, incision care, signs of infection/hematoma, medications, bone growth stimulator, LSO brace (Rep from [facility] aware of new date), and serial x-rays. We discussed discussed risks, alternatives and benefits to surgery with risks including, but not limited to, bleeding, infection, coma, , heart attack, stroke, paralysis,loss of vision, CSF leak, spinal instability requiring future operations, failure to relieve symptom s, bowel bladder, dysfunction and sexual dysfunction. Patient to see SEC today for preop testing and medical clearance. Patient has been instructed to hold anti-inflammatories including aspirin therapy 7 days prior to surgery. Patient is a nonsmoker. Patient does well with the use of Percocet and Zanaflex. Patient has surgical folder and Antibacterial wipes per [facility]. Patient verbalizes understanding and voices no other concerns or questions at this time. documented in this encounter Plan of Treatment Not on file documented as of this encounter Visit Diagnoses Not on filedocumented in this encounter Care Teams Diesel Fitter Mechanic Relationship Specialty Start Date End Date Anil Gupta MD [address] [place] [address] [place] [address] PCP - General Internal Medicine 04/19/21 Anil Gupta MD [address] [facility] [address] [place] [address] Internal Medicine 04/19/21 documented as of this encounter
--- OUTSIDE RECORDS SUMMARY | 2024-03-19 07:31 | XMS_ITS | Encounter Summary ---
Author Organization [facility] Healthcare Address [address] [place] [address] Care Team Providers Care Clinic Cma Name Role Phone Anil Gupta MD Primary Care Provider [phone] Anil uGpta MD Unavailable [phone] Reason for Visit * Auth/Cert Specialty Diagnoses / Procedures Referred By Contac t Referred To Contact Diagnoses Lumbar radiculopathy Lumbar radiculopathy [M54.16] Procedures AR ARTHRODESIS POSTERIOR INTERBODY LUMBAR AR POSTERIOR NON-SEGMENTAL INSTRUMENTATION AR INSJ BIOMCHN DEV INTERVERTEBRAL DSC SPC W/ARTHRD AR ALLOGRAFT FOR SPINE SURGERY ONLY MORSELIZED AR AUTOGRAFT SPINE SURGERY LOCAL FROM SAME INCISION AR BONE MARROW ASPIRATION BONE GRFG SPI SURG ONLY AR LAMINEC/FACETECT/FORAMIN,LUMBAR 1 SEG L5-S1 Transforaminal Lumbar Interbody Fusion vs Posterior Lumbar Fusion Referral ID Status Reason Start Date Expiration Date Visits Re quested Visits Authorized [id number] 1 1 Encounter Details Date Type Department Care Team (Late st Contact Info) Description 10/11/2021 7:37 AM CDT Anesthesia Event [facility] Operating Room [address] [place] [id number] Kitty Campa MD [address] [facility] [place] [address] Tayler Amado NP [address] [place] [address] ARM[address]O SERRA [address] [address] Anesthesia Record Procedure Summary Procedure Name Responsible Anesthesiologist Anesthesia Start Time Anesthesia Stop Time L5-S1 Transforaminal Lumbar Interbody Fusion (Spine Lumbar) Kitty Campa MD 10/11/21 0737 10/11/21 1051 Events Date Time Event Comment 10/11/2021 0706 0737 An Start 0742 In Room 0742 An Start Data 0747 An Induction The patient was reevaluated immediately before moderate or deep sedation use and before anesthesia induction. 0748 Quick Note Entropy RE [address] 87 0751 An Intubation 0753 Anesthesia Ready 0809 An Data Art HR artifact due to bovie 0815 Quick Note Entropy RE 45 [address] 37 0822 Quick Note Entropy RE 45 S E 38 0822 Proc Start 0822 Incision Start 0830 Quick Note Entropy RE 44 S E 41 0845 Quick Note Entropy RE 42 S E 41 0846 An Data Art 0854 An Data Art HR data artifac t 0900 Quick Note Entropy RE 38 S E 38 0915 Quick Note Entropy RE 33 S E 31 0930 Quick Note Entropy RE 48 S E 46 0945 Quick Note Entropy RE 37 S E 37 1000 Quick Note Entropy RE 39 S E 37 1015 Quick Note Entropy RE 37 S E 36 1037 Proc Fin 1042 An Extubation 1042 an stop data 1045 Out of Room 1049 Handoff to RN I completed my handoff [...] disposition at the time of handoff: PACU 1051 An Stop Meds Name Total midazolam 1 mg fentaNYL 100 mcg lidocaine (CARDIAC) syringe 2 % 5 mL propofol 200 mg propofol 744.46 mg succinylcholine 100 mg phenylephrine 100 mcg/mL 100 mcg glycopyrrolate 0.2 mg ondansetron 4 mg dexamethasone 4 mg/ml 8 mg lidocaine in dextrose 5% 2 g/250 mL (8 m g/mL) infusion (premix) 384.77 mg Lactated Ringer's (LR) infusion 1,000 mL * Agents Name O2 N2O Air Sevoflurane Desflurane Inspired Desflurane Inspired Sevoflurane * Blood No blood administrations on file. Lines, Drains, and Airways Type Details Placement Removal RETIRED Surgical Site 06/03/21; 1119; Ba ck; 10/11/21; 1033 (previous site) 06/03/21 1119 by Eileen Dumont RN 10/11/21 1033 by Aashish Johnson RN Peripheral IV Placement Date: 10/11/21; Placement Time: 625; Catheter Size: 18 G; Orientation: Left; Location: Hand; Site Prep: Chlorhexidine; Inserted by: Gretchen Garcai RN; Insertion Attempts: 1; Patient Tolerance: Tolerated well; Removal Date: 10/12/21; Removal Time: 130; Removal Reason: Therapy completed 10/11/21 06 by Ursula Valle RN 10/12/21 1309 by Cara Singer RN ETT Placement Date: 10/11/21; Placement Time: 820 (created via procedure documentation); Mask Ventilation: 1; Technique: Video laryngoscopy; Type: ETT - single; Single Lumen Tube Size: 8 mm; Cuffed: Yes; Blade Size: 4; Location: Oral; Insertion Attempts: 1; Placement Verification: Auscultation, Capnometry; Airway Comment: Intubation by bottle dealer student ; Removal Date: 10/11/21; Removal Time: 1042 10/11/21 0821 by Tonya Bowers CRNA 10/11/21 1042 by Tonya Bowers CRNA Closed/Suction/Open Drain 10/11/21; 1000; Inferior, Left; Back; Other (Comment) (roney dressing); Other (Comment) (see other documentation of RONEY) 10/11/21 1000 by Aashish Johnson RN 10/11/21 1121 by Breana Keen RN Closed/Suction/Open Drain 10/11/21; 1026; Inferior; Back; Bulb; 10 Fr. 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 OPERATING [facility] / [facility] OPERATING ROOM Anesthesia Start: 736 Anesthesia Stop: 1050 Procedure: L5-S1 Transforaminal Lumbar Interbody Fusion (N/A Spine Lumbar) Diagnosis: Lumbar radiculopathy (Lumbar radiculopathy [M54.16]) Surgeons: Jayy Granger MD Responsible Provider: Kitty Campa MD Anesthesia Type: general ASA Status: 3 Anesthesia Type: general Last vitals BP 123/78 Pulse 67 Temp 36.1 ??C (97 ??F) (Temporal) Resp 13 SpO2 100% Anesthesia Post Evaluation Patient location during evaluation: PACU Patient participation: complete - patient participated Level of consciousness: follows simple commands and fully awake Pain score: 3 Pain management: adequate Airway patency: adequate Cardiovascular status: acceptable and hemodynamically stable Respiratory status: acceptable Hydration status: acceptable Pt is: normothermic Nausea/Vomiting status: none No complications documented. * Anesthesia Procedure Notes - Tonya Bowers CRNA - 10/11/2021 8:20 AM CDTAssociated Order(s): Airway Airway Patient location: OR Urgency: elective Indications for airway management: anesthesia Difficult airway: no Staff: Supervising provider: Kitty Campa MD Airway prep: Preoxygenated: yes Patient position: sniffing Mask difficulty assessment: 1 - vent by mask Sedation level during airway: GA Final airway details: Final airway type: endotracheal airway Tube type: ETT ETT size: 8.0 mm Cuffed: yes Technique used for successful ETT placement: video laryngoscopy Devices/Methods used in placement: stylet Insertion site: oral Video blade type: Murray Blade size: 4 Cormack-Lehane (video): grade I - full view of glottis Cuff inflated with: air Placement verified by: auscultation and CO2 detection Airway secured with: silk tape Number of attempts: 1 Additional comments: Intubation by bottle dealer student * Anesthesia Preprocedure Evaluation - Kitty Campa MD - 10/02/2021 12:14 PM CDT Images from the original note were not included. Anesthesia Evaluation Douglas Horn is a 71 y.o. male with stabbing lower back pain radicular to his right leg with numbness and tingling in right leg as well. He Is here for preop evaluation prior to L5-S1 Transforaminal Lumbar Interbody Fusion vs Posterior Lumbar Fusion by Jayy Granger MD Patient is up to date on COVID vaccine and booster. NO preop COVID testing required. Moderna series Dose 1 05/23/2020 (Moderna SARS-CoV-2 Vaccination (12+ YRS)) Dose 2 06/20/2020 (Moderna SARS-CoV-2 Vaccination (12+ YRS)) Booster dose 11/21/2020 (Moderna SARS-CoV-2 Vaccination (12+ YRS)) Procedure(s): L5-S1 Transforaminal Lumbar Interbody Fusion vs Posterior Lumbar Fusion Pre-Op Diagnosis Codes: * Lumbar radiculopathy [M54.16] [...] stenosis without neurogenic claudication ??? Lumbar radiculopathy Past Medical History: Diagnosis Date ??? Arthritis ??? Asthma ??? GERD (gastroesophageal reflux disease) ??? Lead poisoning ??? Lumbar radiculopathy ??? Peripheral neuropathy ??? Pseudomonas respiratory infection comes and goes - on lobsterman antibiotics to prevent further mucous build up ??? Toxic effect of mercury and its compounds, accidental (unintentional), initial encounter Past Surgical History: Procedure Laterality Date ??? MICRODISCECTOMY LUMBAR 06/03/2021 S/P Right L5-S1 Microdiscectomy ([place]) No Known Allergies Med List Status: Nurse Complete Set By: Eileen John RN at 10/02/2021 10:37 AM Taking? Last Dose Start Date End Date Provider albuterol HFA (PROVENTIL HFA,VENTOLIN HFA,PROAIR HFA) 90 mcg/actuation inhaler More than a month ---- ProviderCarin MD budesonide-formoteroL (SYMBICORT) 160-4.5 mcg/actuation inhaler More than a month -- -- Carin Chirinos MD fluticasone propionate (FLONASE) 50 mcg/actuation nasal spray 10/02/2021 -- -- Carin Chirinos MD ipratropium (ATROVENT) 42 mcg (0.06 %) nasal spray 10/02/2021 -- -- Carin Chirinos MD LYRICA 150 mg capsule 10/02/2021 03/17/18 -- ProviderCarin MD rOPINIRole (REQUIP) 2 mg tablet 10/01/2021 -- -- Carin Chirinos MD valACYclovir (VALTREX) 500 mg tablet 10/02/2021 -- -- ProviderCarin MD Current Outpatient Medications: ??? fluticasone propionate (FLONASE) 50 mcg/actuation nasal spray ??? ipratropium (ATROVENT) 42 mcg (0.06 %) nasal spray ??? LYRICA 150 mg capsule ??? rOPINIRole (REQUIP) 2 mg tablet ??? valACYclovir (VALTREX) 500 mg tablet ??? albuterol HFA (PROVENTIL HFA,VENTOLIN HFA,PROAIR HFA) 90 mcg/actuation inhaler ??? budesonide-formoteroL (SYMBICORT) 160-4.5 mcg/actuation inhaler Social History Tobacco Use Smoking Status Never Smoker Smokeless Tobacco Never Used Alcohol Use: Not At Risk ??? Frequency of Alcohol Consumption: 4 or more times a week ??? Average Number of Drinks: 1 or 2 ??? Frequency of Binge Drinking: Never Substance and Sexual Activity Drug Use No History reviewed. No pertinent family history. PAT Physical Exam Airway Exam: Mallampati: see [...] and printed copy given to patient. Vitals: 10/02/21 1040 BP: 94/65 Pulse: 67 SpO2: 96% *CBC Lab Results Component Value Date WBC 4.7 10/02/2021 HGB 13.0 10/02/2021 HCT 39.6 10/02/2021 LABPLAT 253 10/02/2021 MPV 8.4 (L) 10/02/2021 RBC 4.43 10/02/2021 MCV 89.4 10/02/2021 MCH 29.3 10/02/2021 MCHC 32.8 10/02/2021 RDWCV 13.3 10/02/2021 RDWSD 43.6 10/02/2021 NRBCABS 0.00 10/02/2021 Type&Screen Lab Results Component Value Date ABORH A Negative 10/02/2021 IDCOOMB Negative 10/02/2021 hgbA1C Lab Results Component Value Date HGBA1C 5.4 10/02/2021 Vitamin D Lab Results Component Value Date 25HYDROVITD 52 10/02/2021 SEC evaluation complete. STOP-Bang Total Score: 3 Flynn Activity Status Index Score: 31.5 DOS Physical Exam Medical history, medications, and allergies reviewed. Attestation: This PAT evaluation 10/11/2021. Airway Exam: Mallampati: II Cervical ROM: FROM TM distance: >4 Cardiovascular Exam: Rate: regular Rhythm: regular Dental Exam: Otherwise appears intact and appears intact Current state: Patient's current state is cooperative. Anesthesia Plan ASA 3 My patient is approved for the Anesthesia Controlled Medication protocol when under care of a SUMMER SESSIONS DIRECTOR Planned anesthesia: General Team communication plan: oral ET tube Induction: Induction: intravenous. Postoperative Plan: No postoperative mechanical ventilation intended. Patient's planned disposition post procedure is Outpatient. Informed Consent: Discussed plan with SUMMER SESSIONS DIRECTOR. Anesthesia plan and risks discussed with patient. [...] Procedure Name Priority Date/Time Associated Diagnosis Comments AR AN PROCEDURE PLACEHOLDER Routine 10/11/2021 8:20 AM CDT AR AN ELECTIVE ENDOTRACHEAL AIRWAY Routine 10/11/2021 8:20 AM CDT documented in this encounter Results * AR AN ELECTIVE ENDOTRACHEAL AIRWAY, AR AN PROCEDURE PLACEHOLDER (10/11/2021 8:20 AM CDT) Narrative Tonya Bowers CRNA - 10/11/2021 8:20 AM CDT Tonya Bowers CRNA ? 10/11/2021 ??8:21 AM Airway Patient location: OR Urgency: elective Indications for airway management: anesthesia Difficult airway: no Staff: Supervising provider: Kitty Campa MD Airway prep: Preoxygenated: yes Patient position: sniffing Mask difficulty assessment: 1 - vent by mask Sedation level during airway: GA Final airway details: Final airway type: endotracheal airway Tube type: ETT ETT size: 8.0 mm Cuffed: yes Technique used for successful ETT placement: video laryngoscopy Devices/Methods used in placement: stylet Insertion site: oral Video blade type: Murray Blade size: 4 Cormack-Lehane (video): grade I - full view of glottis Cuff inflated with: air Placement verified by: auscultation and CO2 detection Airway secured with: silk tape Number of attempts: 1 Additional comments: Intubation by bottle dealer student us Kitty Campa MD ANESTHESIA ORDERABLES Final R esult documented in this encounter Visit Diagnoses Not on filedocumented in this encounter Administered Medications Inactive Administered Medications - up to 3 most recent administrations Medication Order MAR Action Action Date Dose Rate Site dexAMETHasone (DECADRON) 4 mg/mL injection intravenous, Administer over 2 Minutes, As needed, Starting on Thu10/11/21 at 0817, Anesthesia Intra-op Given 10/11/2021 8:17 AM CDT 8 mg fentaNYL (SUBLIMAZE) preservative free injection intravenous, As needed, Starting on Thu10/11/21 at 0747, Anesthesia Intra-op Given 10/11/2021 8:23 AM CDT 50 mcg Given 10/11/2021 7:47 AM CDT 50 mcg glycopyrrolate (ROBINUL) injection intravenous, Administer over 1 Minutes, As needed, Starting on Thu10/11/21 at 1027, Anesthesia Intra-op Given 10/11/2021 10:27 AM CDT 0.2 mg Lactated Ringer's (LR) infusion 30 mL/hr, intravenous, Continuous, Starting on Thu10/11/21 at 0645, Pre-Op, New Bag 10/11/2021 9:42 AM CDT 30 mL/hr Rate/Dose Verify 10/11/2021 7:37 AM CDT 30 mL/h r New Bag 10/11/2021 6:36 AM CDT 30 mL/hr 30 mL/hr lidocaine (cardiac) (XYLOCAINE) preservative free injection intravenous, As needed, Starting on Thu10/11/21 at 0747, Anesthesia Intra-op, Indications: Ventricular ArrhythmiasIndications:Ve ntricular Arrhythmias Given 10/11/2021 7:47 AM CDT 5 mL lidocaine in dextrose 5% 2 g/250 mL (8 mg/mL) infusion (premix) 1.5 mg/kg/hr ? 77.6 kg [place] weight (14.55 mL/hr), 8 mg/mL, intravenous, Continuous, Starting on Thu10/11/21 at 0800, Until 10/12/21 at 1723, Phase I & Post-op Floor, Indications: Pain, Call MD for symptoms of toxicity (ringing in ears, metallic taste, somnolence, numb lips) or lidocaine level greater than 5.For all inpatients, discontinue the drip when the bag has completed, or 30 minutes before planned discharge time. For all outpatients, discontinue the drip 60 minutes after arrival to post-op. Consider giving oral narcotics to the patient per post-op order set., RoutineIndications:Pain Rate/Dose Change 10/11/2021 10:22 AM CDT 1.5 mg/kg/hr 14.55 mL/hr New Bag 10/11/2021 8:15 AM CDT 2 mg/kg/hr 19.4 mL/hr midazolam (VERSED) 1 mg/mL preservative free injection intravenous, Administer over 2 Minutes, As needed, Starting on Thu10/11/21 at 0738, Anesthesia Intra-op Given 10/11/2021 7:38 AM CDT 1 mg ondansetron (ZOFRAN) injection intravenous, Administer over 2 Minutes, As needed, Starting on Thu10/11/21 at 1023, Anesthesia Intra-op Given 10/11/2021 10:23 AM CDT 4 mg phenylephrine (BERTHA-SYNEPHRINE) 1 mg/10 mL (100 mcg/mL) in sodium chloride 0.9% (premix) intravenous, As needed, Starting on Thu10/11/21 at 1027, Anesthesia Intra-op Given 10/11/2021 10:27 AM CDT 100 mc g propofoL (DIPRIVAN) 10 mg/mL IV intravenous, As needed, Starting on Thu10/11/21 at 0747, Anesthesia Intra-op Given 10/11/2021 8:13 AM CDT 50 mg Given 10/11/2021 7:47 AM CDT 150 mg propofoL (DIPRIVAN) 10 mg/mL IV intravenous, Continuous PRN, Starting on Thu10/11/21 at 0815, Anesthesia Intra-op New Bag 10/11/2021 8:15 AM CDT 75 mcg/kg/min 36.315 mL/hr succinylcholine (ANECTINE) injection intravenous, As needed, Starting on Thu10/11/21 at 0748, Anesthesia Intra-op Given 10/11/2021 7:48 AM CDT 100 mg documented in this encounter Care Teams Clinic Cma Relationship Specialty Start Date End Date Anil Gupta MD [address] [place] [address] PCP - General Internal Medicine 04/19/21 Anil Gupta MD [address] [place] [address] Internal Medicine 04/19/21 documented as of this encounter
--- OUTSIDE RECORDS SUMMARY | 2024-03-19 07:31 | XMS_ITS | Encounter Summary ---
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 Male 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 Gender Identity Male 05/23/2021 12:08 PM SKATES OPERATOR Sexual Orientation Straight 05/23/2021 12 :08 PM SKATES OPERATOR documented as of this encounter Ordered Prescriptions Prescription Sig Dispense Quantity Refills Last Filled Start Date End Date tiZANidine (ZANAFLEX) 4 mg tabletIndications: Muscle Spasm Take 1 tablet (4 mg total) by mouth every 6 (six) hours as needed for muscle spasms 90 tablet 2 06/03/2021 2 oxyCODONE-acetamin ophen (Percocet) 5-325 mg per tabletIndications: Pain Take 1-2 tablets by mouth every 4 (four) hours as needed for pain for up to 14 days Maximum 6 tablets/day 90 tablet 06/10/2021 2 oxyCODONE-acetamin ophen (Percocet) 5-325 mg per tabletIndications: Pain Take 1-2 tablets by mouth every 4 (four) hours as needed for pain for up to 7 days Maximum 8 tabs/day 56 tablet 06/03/2021 2 documented in this encounter Plan of Treatment Not on file documented as of this encounter Visit Diagnoses Diagnosis Lumbar radiculopathy- Primary Thoracic or lumbosacral neuritis or radiculitis, unspecified documented in this encounter Discontinued Medications Medication Sig Discontinue Reason Start Date End Da te tiZANidine (ZANAFLEX) 4 mg tablet Take 4 mg by mouth daily as needed for muscle spasms Formulary change 06/03/2021 documented as of this encounter Care Teams Business Transformation Analyst Relationship Specialty Start Date End Date Anil Gupta MD [address] [place] [address] PCP - General Internal Medicine 04/19/21 Anil Gupta MD [address] [place] [address] Internal Medicine 04/19/21 documented as of this encounter
--- OUTSIDE RECORDS SUMMARY | 2024-03-19 07:31 | XMS_ITS | Encounter Summary ---
Author Organization [facility] Address [address] [place] [address] Care Team Providers Care Pouncing Machine Operator Name Role Phone Anil Gupta MD Primary Care Provider [phone] Anil Gupta MD Unavailable [phone] Reason for Referral * MRI/CAT/PET Scan (Routine) - Closed Specialty Diagnoses / Procedures Referred By Contac t Referred To Contact Diagnoses Lumbar radiculopathy Procedures MRI Lumbar Spine WO Contrast Jayy Granger MD Phone: tel: fax: External Order Referral ID Status Reason Start Date Expiration Date Visits Re quested Visits Authorized [id number] Closed 07/08/2021 08/07/2022 1 1 Encounter Details Date Type Department Care Team (Latest Contact Info) Description 07/08/2021 11:30 AM CDT Office Visit [facility] [address] [place] [address] Jazmin Marie, ABDI [address] [place] [address] Lumbar radiculopathy (Primary Dx) Social [...] on file Legal 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 POSTOP NOTE Douglas Horn 07/08/2021 REASON FOR VISIT: 5 weeks postop following Right L5-S1 Lumbar Microdiscectomy per Dr. Granger for lumbar radiculopathy on June 03, 2021 HISTORY OF PRESENT ILLNESS: Mr. Horn returns to the office sooner than expected due to increased right leg pain following surgery. Patient states the pain started right away and starts in the right SI area (dull knife like pain) radiating into right buttock and posterolateral right leg and down the side of his calf with knife-like stabbing pain. Patient states it is most painful sitting, standing and walking. Leaning to left, results in increased pain as well. Patient reports tingling down theleg at times. He denies left leg pain, bowel or bladder incontinence, falls or injuries, spasms. Current Outpatient Medications Medication ??? albuterol HFA (PROVENTIL HFA,VENTOLIN HFA,PROAIR HFA) 90 mcg/actuation inhaler ??? azithromycin (ZITHROMAX) 500 mg tablet ??? budesonide-formoteroL (SYMBICORT) 160-4.5 mcg/actuation inhaler ??? celecoxib (CeleBREX) 200 mg capsule ??? fluticasone propionate (FLONASE) 50 mcg/actuation nasal spray ??? ipratropium (ATROVENT) 42 mcg (0.06 %) nasal spray ??? levoFLOXacin (LEVAQUIN) 500 mg tablet ??? LYRICA 150 mg capsule ??? methylPREDNISolone (MEDROL DOSEPACK) 4 mg Dosepack ??? rOPINIRole (REQUIP) 2 mg tablet ??? tiZANidine (ZANAFLEX) 4 mg tablet ??? valACYclovir (VALTREX) 500 mg tablet No current facility-administered medications for this visit. Physical Exam Constitutional: General: He is not in acute distress. Appearance: Normal appearance. He is normal weight. HENT: Head: Normocephalic and atraumatic. Cardiovascular: Rate and Rhythm: Normal rate. Pulses: Normal pulses. Pulmonary: Effort: Pulmonary effort is normal. Abdominal: General: There is no distension. Palpations: Abdomen is soft. Tenderness: There is no abdominal tenderness. Musculoskeletal: Right lower leg: No edema. Left lower leg: No edema. Skin: General: Skin is warm and dry. Neurological: Mental Status: He is alert and oriented to person, place, and time. Cranial Nerves: Cranial nerves are intact. Sensory: Sensation is intact. Motor: Motor function is intact. Coordination: Coordination is intact. Gait: Gait is intact. Psychiatric: Attention and Perception: Attention normal. Mood and Affect: Mood normal. Speech: Speech normal. Behavior: Behavior is cooperative. Thought Content: Thought content normal. FILM REVIEW: No films obtained today Diagnoses and all orders for this visit: Lumbar radiculopathy (Primary) Assessment & Plan: Mr. Horn has ongoing right back and leg pain following microdiscectomy with no improvement since surgery. Patient has tried medications to include Medrol dose pack without any relief. Concern is forresidual nerve root irritation or re- current disc herniation. Will obtain MRI lumbar spine without contrast to assess for this. WORK STATUS: -RETIRED FOLLOW UP APPT: Pending MRI findings. Preop MRI CD returned to the patient. Orders: - MRI Lumbar Spine WO Contrast; Future This document was created using speech voice [...] Plan Note - Jazmin Marie NP - 07/08/2021 11:45 AM CDTAssociated Problem(s): Lumbar radiculopathy (Resolved 11/13/2021) Mr. Horn has ongoing right back and leg pain following microdiscectomy with no improvement since surgery. Patient has tried medications to include Medrol dose pack without any relief. Concern is forresidual nerve root irritation or re- current disc herniation. Will obtain MRI lumbar spine without contrast to assess for this. WORK STATUS: -RETIRED FOLLOW UP APPT: Pending MRI findings. Preop MRI CD returned to the patient. documented in this encounter Plan of Treatment Not on file documented as of this encounter Procedures Procedure Name Priority Date/Time Associated Diagnosis Comments MRI LUMBAR SPINE WO CONTRAST Schedule Routine, Read Routine (OP Routine) 07/08/2021 Lumbar radiculopathy documented in this encounter Results * MRI Lumbar Spine WO Contrast (07/08/2021) Anatomical Region Laterality Modality Spine N/A Magnetic Resonan ce Jayy Granger MD IMG MRI PROCEDURES Final Resu lt documented in this encounter Visit Diagnoses Diagnosis Lumbar radiculopathy- Primary Thoracic or lumbosacral neuritis or radiculitis, unspecified documented in this encounter Care Teams Pouncing Machine Operator Relationship Specialty Start Date End Date Anil Gupta MD [address] [place] [address] PCP - General Internal Medicine 04/19/21 Anil Gupta MD [address] [place] [address] Internal Medicine 04/19/21 documented as of this encounter
--- OUTSIDE RECORDS SUMMARY | 2024-03-19 07:31 | XMS_ITS | Encounter Summary ---
Author Organization [facility] Healthcare Address [address] [place] [address] Care Team Providers Care Chemical Equipment Repairer Name Role Phone Anil Gupta MD Primary Care Provider [phone] Anil Gupta MD Unavailable [phone] Encounter Details Date Type Department Care Team (Latest Contact Info) Description 07/08/2021 - 07/08/2021 11:59 PM CDT Hospital Encounter [facility] [phone] Discharge Disposition: Discharge to home or self [...] on file Legal Sex Male 12:56 PM SPECIALTY FINISHING UTILITY PERSON Gender Identity Male 05/23/2021 12:08 PM SPECIALTY FINISHING UTILITY PERSON Sexual Orientation Straight 05/23/2021 12 :08 PM SPECIALTY FINISHING UTILITY PERSON documented as of this encounter Medications at [...] HFA,PROAIR HFA) 90 mcg/actuation inhaler 01/28/2021 4 azithromycin (ZITHROMAX) 500 mg tablet Take 500 mg by mouth 3 (three) times a week 2 benralizumab (Fasenra Pen) 30 mg/mL auto-injector 02/08/2021 4 budesonide-formot Veronica (SYMBICORT) 160-4.5 mcg/actuation inhaler Inhale 2 puffs 2 (two) times a day as needed Rinse mouth with water after use. Do not swallow. 3 budesonide-formot Veronica (Symbicort) 160-4.5 mcg/actuation inhaler 12/31/2020 4 celecoxib (CeleBREX) 200 mg capsule Take 200 mg by mouth daily 2 lansoprazole (Prevacid) 30 mg capsule 1 capsule (30 mg total) 06/22/2015 4 levoFLOXacin (LEVAQUIN) 500 mg tablet Take 500 mg by mouth daily as needed (for Pseudomonas respirtory infection flare up) 2 LYRICA 150 mg capsule Take 2 capsules (300 mg total) by mouth daily 03/17/2018 3 methylPREDNISolon e (MEDROL DOSEPACK) 4 mg Dosepack Take as directed on package 1 packet 06/20/2021 2 nebulizer accessories misc See Instructions, 1 each, 1 each, Route to Pharmacy Electronically, [facility]/pharmacy #[id number], [id number], Instructions Replace Required Details, Supply 12/12/2019 4 nystatin 100,000 unit/mL suspension 02/19/2021 4 tiZANidine (ZANAFLEX) 4 mg tabletIndications :Muscle Spasm Take 1 tablet (4 mg total) by mouth every 6 (six) hours as needed for muscle spasms 90 tablet 2 06/03/2021 2 valACYclovir (VALTREX) 500 mg tablet Take 500 [...] Comments MRI TRANSFER OF OUTSIDE FILMS Routine 07/08/2021 12:00 AM CDT documented in this encounter Results * MRI Outside Reference (07/08/2021 12:00 AM CDT) Narrative RAD_PACS_OUTSIDE_FILM_[facility] - 07/29/2021 10:57 AM CDT This order has been auto-finalized and does not contain a result. us Jayy Granger MD IMG MRI PROCEDURES Final Resu lt RAD_PACS_OUTSIDE_FILM_[facility] documented in this encounter Visit Diagnoses Not on filedocumented in this encounter Care Teams Chemical Equipment Repairer Relationship Specialty Start Date End Date Anil Gupta MD [address] [place] [address] PCP - General Internal Medicine 04/19/21 Anil Gupta MD [address] [facility] [address] [place] [id number] Internal Medicine 04/19/21 documented as of this encounter
--- OUTSIDE RECORDS SUMMARY | 2024-03-19 07:31 | XMS_ITS | Encounter Summary ---
Author Organization [facility] Address [address] [place] [address] Phone Care Team Providers Care Patcher Wood Welder Name Role Phone Sukhdev Santos MD Primary Care Provider [phone] Reason for Visit * Reason Comments Pain Encounter Details Date Type Department Care Team (Late st Contact Info) Description 04/14/2018 2:10 PM PLAYGROUND WORKER Office Visit [facility] Orthopaedic Surgery [facility] [address] [place] [address] [place] [address] Fernando Stanley MD [address] [place] [address] Right wrist pain (Primary Dx) Social History Tobacco Use Types Packs/Day Years Used Date Smoking Tobacco: Never Smokeless Tobacco: Never Alcohol Use Standard Drinks/Week Comments Yes 0 (1 standard drink = 0.6 oz pur e alcohol) Sex and Gender Information Value Date Recorded Sex Assigned at Not on file Legal Sex Male 12:56 PM PLAYGROUND WORKER Gender Identity Male 05/23/2021 12:08 PM PLAYGROUND WORKER Sexual Orientation Straight 05/23/2021 12 :08 PM PLAYGROUND WORKER documented as of this encounter Ordered Prescriptions Prescription Sig Dispense Quantity Refills Last Filled Start Date End Date meloxicam (MOBIC) 15 mg tablet Take 1 tablet (15 mg total) by mouth daily. 30 tablet 04/14/2018 05/12/2018 documented in this encounter Progress Notes * Fernando Stanley MD - 04/14/2018 2:10 PM CST CHIEF COMPLANT Right wrist pain HISTORY OF PRESENT ILLNESS This patient is right-hand dominant and retired but likes to do [employer] work. He comes in because he has had right wrist pain for about a year. He says it hurts if he is lifting. Better with rest. Pain is sharp and aching moderate to severe in nature. Pain seems to be more on the ulnar aspect of the wrist than the radial side. His had an MRI previously. Has had 2 steroid injections. 1 in the ECU 1 in the TFCC area. Both of these did provide some relief. He says the pain isn't terrible but he did want to get it checked. Not taking any regular medication. Has worn a brace in the past giving a little bit of relief. PAST MEDICAL HISTORY He has a past medical history of GERD (gastroesophageal reflux disease) and Peripheral neuropathy. PAST SURGICAL HISTORY He has no past surgical history on file. INITIAL REVIEW OF MEDICATIONS He has a current medication list which includes the following prescription(s): azithromycin, valacyclovir, lyrica, and meloxicam. DRUG ALLERGIES He has No Known Allergies. SOCIAL HISTORY He reports that he has never smoked. He has never used smokeless tobacco. He reports that he drinksalcohol. He reports that he does not use drugs. FAMILY HISTORY His family history is not on file. REVIEW OF SYSTEMS Review of Systems HENT: Positive for congestion. Respiratory: Positive for cough and sputum production. Gastrointestinal: Positive for heartburn. All other systems reviewed and are negative. PHYSICAL EXAM The patient was alert and oriented normally. Normal affect. Skin is intact, pulses normal, and neurologically intact. Today the right wrist has very good range of motion. DRUJ is stable. Some pain with wrist flexion and ulnar deviation as well. ECU really isn't tender today although he says it was tender previously. Somewhat tender over the 6R portal. A little bit tenderness over the triquetrum and the midcarpal ulnar-sided space. No pain on Shuck of the LT ligament. I reviewed MRI of the right wrist from February 24, 2018. 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 ASSESSMENT AND PLAN: This patient has some right ulnar wrist pain which is fairly chronic. It does not seem like it everstarted after specific trauma. 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 At this point I do not think we have to be more aggressive although given the duration of symptoms if he wanted to proceed with anything more definitive I would consider wrist arthroscopy with TFCC debridement and debridement of the ECU tendon. That being said certainly we can do surgerylike that and although most patients get better a lot are going to have some persistent pain. He understands all the risks and benefits and needed time off after that type of surgery. For now we willtry some scheduled NSAID dosing so we will give him Mobic for 1 month and see if this helps calm things down. Happy to re-evaluate at any point. Dr. Fernando Stanley dictating using Fluency Direct. Tool Machine Set Up Operator variances may occur. Fernando Stanley M.D. Senior Foreman Hand and Upper Extremity Surgery [facility] Orthopedics GROUND WORKER documented in this encounter Plan of Treatment Not on file documented as of this encounter Visit Diagnoses Diagnosis Right wrist pain- Primary Pain in joint, forearm documented in this encounter Historical Medications * This list may reflect changes made after this encounter. azithromycin (ZITHROMAX) 500 mg tablet Take 500 mg by mouth 3 (three) times a week 10/02/2021 valACYclovir (VALTREX) 500 mg tablet Take 500 mg by mouth daily 04/15/2022 LYRICA 150 mg capsule Take 2 capsules (300 mg total) by mouth daily 03/17/2018 02/12/2023 added in this encounter Care Teams Patcher Wood Welder Relationship Specialty Start Date End Date Sukhdev Santos MD PCP - General Internal Medicine 04/01/18 04/17/21 documented as of this encounter
--- OUTSIDE RECORDS SUMMARY | 2024-03-19 07:31 | XMS_ITS | Encounter Summary ---
Author Organization [facility] Address [address] [place] [address] Care Team Providers Care Lead Web Application Developer Name Role Phone Anil Gupta MD Primary Care Provider [phone] Anil Gupta MD Unavailable [phone] Reason for Visit * Reason Onset Date Comments Patient Hospitalized 10/28/2021 Encounter Details Date Type Department Care Team (Late st Contact Info) Description 10/28/2021 Telephone [facility] [place] [address], [place] [address] Lacy Kuhn, RN Patient Hospitalized Social History Tobacco Use Types Packs/Day Years [...] often do you attend chur ch or roman catholic services? 1 to 4 times per year 10/29/2021 Do you belong to any clubs o r organizations such as confucianism groups, unions, fraternal or athletic groups, or [...] on file Legal Sex Male 12:56 PM OPHTHALMIC AIDE Gender Identity Male 05/23/2021 12:08 PM OPHTHALMIC AIDE Sexual Orientation Straight 05/23/2021 12 :08 PM OPHTHALMIC AIDE documented as of this encounter Miscellaneous Notes * Telephone Encounter - Lacy Kuhn RN - 10/28/2021 4:02 PM CDT Patient calls to update us on the patient - states pt was dealing with cdiff and colitis type issues and started himself on his oral vancomycin he had at home. States they tried to have stool sample completed per GI md but were issues with order. Pt started meds on his on over the weekend. He then started with fever and increased pain issues. Went to PCP and found to have possible infection in lumbar spine incision area - puss present. Currently in [place] [facility] awaiting approval for transfer to [facility] for further evaluation and care. According to transfer intake in [facility] they contacted [facility] in [place] who is ok with transfer but they are awaiting further call back from hospitalist and covering MD for [facility] (Dr. Sheets). Discussed with that it is a waiting game but that I would keep track of the situation. Pt wifeverbalized understanding. documented in this encounter Plan of Treatment Not on file documented as of this encounter Visit Diagnoses Not on filedocumented in this encounter Care Teams Lead Web Application Developer Relationship Specialty Start Date End Date Anil Gupta MD [address] [place] [address] PCP - General Internal Medicine 04/19/21 Anil Gupta MD [address] [place] [address] Internal Medicine 04/19/21 documented as of this encounter
--- OUTSIDE RECORDS SUMMARY | 2024-03-19 07:31 | XMS_ITS | Encounter Summary ---
Author Organization [facility] Healthcare Address [address] [place] [address] Care Team Providers Care Manager Digital Ad Operations Name Role Phone Anil Gupta MD Primary Care Provider [phone] Anil Gupta MD Unavailable [phone] Reason for Visit * Auth/Cert Specialty Diagnoses / Procedures Referred By Enio t Referred To Contact Diagnoses Lumbar radiculopathy Lumbar radiculopathy [M54.16] Procedures [place] LAMNOTMY INCL W/DCMPRSN NRV ROOT 1 INTRSPC LUMBR L5-S1 Right Lumbar Microdiscectomy Referral ID Status Reason Start Date Expiration Date Visits Re quested Visits Authorized [id number] 1 1 Encounter Details Date Type Department Care Team (Late st Contact Info) Description 06/03/2021 10:30 AM VICE PRESIDENT OF NEWS - 06/03/2021 1:00 PM VICE PRESIDENT OF NEWS Surgery [facility] Operating Room [address] [place] [address] Jayy Granger MD [facility] [address] [place] [address] L5-S1 Right Lumbar Microdiscectomy Surgery Details Date/Time Status Location OR Service Patient Class Case Class Case Type Trauma Case? 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, (KB) Surgeon Surgeon Role Service Panel Jayy Granger MD Primary Orthopaedic Spine 1 documented in this encounter Social History [...] on file Legal Sex Male 12:56 PM VICE PRESIDENT OF NEWS Gender Identity Male 05/23/2021 12:08 PM VICE PRESIDENT OF NEWS Sexual Orientation Straight 05/23/2021 12 :08 PM VICE PRESIDENT OF NEWS documented as of this encounter Last Filed Vital Signs Vital Sign Reading Time Taken Comments Blood Pressure 126/73 06/03/2021 12:50 PM VICE PRESIDENT OF NEWS Pulse 54 06/03/2021 12:50 PM VICE PRESIDENT OF NEWS Temperature 35.3 ??C (95.576 ??F) 06/03/2021 12:50 PM VICE PRESIDENT OF NEWS Respiratory Rate 12 06/03/2021 12:5 0 PM VICE PRESIDENT OF NEWS Oxygen Saturation 95% 06/03/2021 12: 50 PM VICE PRESIDENT OF NEWS Inhaled Oxygen Concentration - - Weight 86.1 kg (189 lb 13.1 oz) 06/03/2021 9:12 AM VICE PRESIDENT OF NEWS Height 182.9 cm (6') 06/03/2021 9:12 AM VICE PRESIDENT OF NEWS Body Mass Index 25.74 06/03/2021 9:12 AM VICE PRESIDENT OF NEWS documented in this encounter Medications at Time [...] tablet (2 mg total) by mouth nightly oxyCODONE-acetami nophen (Percocet) 5-325 mg per tabletIndications :Pain Take 1-2 tablets by mouth every 4 (four) hours as needed for pain for up to 7 days Maximum 8 tabs/day 56 tablet 06/03/2021 2 oxyCODONE-acetami nophen (Percocet) 5-325 mg per tabletIndications :Pain Take 1-2 tablets by mouth every 4 (four) hours as needed for pain for up to 14 days Maximum 6 tablets/day 90 tablet 06/10/2021 2 albuterol HFA (PROVENTIL HFA,VENTOLIN HFA,PROAIR HFA) 90 [...] by mouth daily 03/17/2018 3 nebulizer accessories [facility] [place] See Instructions, 1 each, 1 each, Route to Pharmacy Electronically, [facility]/pharmacy #[id number], [id number], Instructions Replace Required Details, Supply 12/12/2019 [...] documented in this encounter H&P Notes * Jayy Granger MD - 06/03/2021 9:28 AM CST I have reviewed the H&P, examined the patient, and endorse the findings as written. Plan of Care : Based on the above findings, I consider Douglas Horn to be an acceptable risk for: Procedure(s): L5-S1 Right Lumbar Microdiscectomy PRESIDENT OF NEWS Source Note - Olimpia Maldonado PA - 05/29/2021 9:25 AM VICE PRESIDENT OF NEWS Images from the original note were not included. Anesthesia Evaluation Douglas Horn is a 71 y.o. male who [facility] preoperative evaluation of L5-S1 Right Lumbar Microdiscectomy with Jayy Granger MD on 06/03/2021. Patient to report for COVID testing either 05/30, 05/31 at [facility]. A copy of COVID-19 pre-collection instructions was provided to the patient. COVID-19 testing order was placed in [facility]. Procedure(s): L5-S1 Right Lumbar Microdiscectomy Pre-Op Diagnosis Codes: * Lumbar radiculopathy [M54.16] HISTORY Past Medical History Information obtained from: patient and chart. Neurological Neuro/Psych system: negative Cardiovascular Cardiac system: negative Respiratory + Asthma (Chronic underlying pseudomonas infection) Dyspnea frequency: never. Rescue inhaler use: never. Pertinent negatives: no history of oral steroid use and no prior intubation for respiratory failuredue to asthma Hepatic / Heme Hepatic/Heme system: negative Gastrointestinal + GERD - on daily therapy. Asymptomatic. Renal / Renal/ system: negative Musculoskeletal/Pain + Chronic pain - back pain. 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. He received five rounds of EDTA chelation therapy as well as suppositories it as well Functional Capacity Functional capacity: 4-6 METs Review of Systems + chronic pain Pertinent negatives: productive cough; wheezing; SOB; recent cold/flu; fever; chest pain; dentures/partials and chipped/loose teeth Patient Active Problem List Diagnosis ??? Hay [...] and its compounds, accidental (unintentional), initial encounter History reviewed. No pertinent surgical history. No Known Allergies Med List Status: Nurse Complete Set By: Eileen John RN at 05/30/2021 10:05 AM Taking? Last Dose Start Date End Date Provider albuterol HFA (PROVENTIL HFA,VENTOLIN HFA,PROAIR HFA) 90 mcg/actuation inhaler -- -- Carin Chirinos MD azithromycin (ZITHROMAX) 500 mg tablet -- -- Carin Chirinos MD budesonide-formoteroL (SYMBICORT) 160-4.5 mcg/actuation inhaler -- -- Carin Chirinos MD celecoxib (CeleBREX) 200 mg capsule -- -- Carin Chirinos MD fluticasone propionate (FLONASE) 50 mcg/actuation nasal spray -- -- Carin Chirinos MD ipratropium (ATROVENT) 42 mcg (0.06 %) nasal spray -- -- Carin Chirinos MD levoFLOXacin (LEVAQUIN) 500 mg tablet -- -- Carin Chirinos MD LYRICA 150 mg capsule 03/17/18 -- Carin Chirinos MD methylPREDNISolone (MEDROL DOSEPACK) 4 mg Dosepack -- -- Carin Chirinos MD rOPINIRole (REQUIP) 2 mg tablet -- -- Carin Chirinos MD tiZANidine (ZANAFLEX) 4 mg tablet -- -- Carin Chirinos MD valACYclovir (VALTREX) 500 mg tablet -- -- Carin Chirinos MD Current Outpatient Medications: ??? azithromycin (ZITHROMAX) 500 mg tablet ??? budesonide-formoteroL (SYMBICORT) 160-4.5 mcg/actuation inhaler ??? fluticasone propionate (FLONASE) 50 mcg/actuation nasal spray ??? ipratropium (ATROVENT) 42 mcg (0.06 %) nasal spray ??? LYRICA 150 mg capsule ??? rOPINIRole (REQUIP) 2 mg tablet ??? valACYclovir (VALTREX) 500 mg tablet ??? albuterol HFA (PROVENTIL HFA,VENTOLIN HFA,PROAIR HFA) 90 mcg/actuation inhaler ??? celecoxib (CeleBREX) 200 mg capsule ??? levoFLOXacin (LEVAQUIN) 500 mg tablet ??? methylPREDNISolone (MEDROL DOSEPACK) 4 mg Dosepack ??? tiZANidine (ZANAFLEX) 4 mg tablet Social History Tobacco Use Smoking Status Never Smoker Smokeless Tobacco Never Used Substance and Sexual Activity Alcohol Use Yes Substance and Sexual Activity Drug Use No History reviewed. No pertinent family history. PAT Physical Exam Airway Exam: Mallampati: II Cervical ROM: FROM TM distance: 3.5 Cardiovascular Exam: Rate: regular Rhythm: regular Negative for Murmur Pulmonary Exam: LCTA, bilat Wheezing negative EENT Exam: trachea midline Dental Exam: Appears intact Skin Exam: Skin is warm and dry. Abdominal exam: Abdomen is soft. Bowel sounds are present. Current state: Patient's current state is cooperative and interactive. Vitals: 05/30/21 0955 BP: 127/70 Pulse: 83 SpO2: 95% COVID-19 No results found for: [id number] No labs required per anesthesia guidelines ASSESSMENT Pre-Op Diagnosis Codes: * Lumbar radiculopathy [M54.16] PLAN This is a 71 y.o. male with no clinical risk factors per ACC/AHA guidelines with moderate functional capacity for a(n) low risk procedure. The patient declined the offer of a second provider in the room during the exam. Pre- procedure instructions were reviewed with the patient. All questions were answered. A copy of the instructions was provided to the patient. SEC evaluation complete. STOP-Bang Total Score: 2 Flynn Activity Status Index Score: 15.3 PRESIDENT OF NEWS documented in this encounter Miscellaneous Notes * Perioperative Nursing Note - Eileen Garcia RN - 06/03/2021 2:00 PM VICE PRESIDENT OF NEWS Iv dc'd. Pt ambulated w minimal assist to BR, voided. No nausea. Has pain, tolerable. Discharge to home w . PRESIDENT OF NEWS * Op Note - Jayy Granger MD - 06/03/2021 11:01 AM CST Images from the original note were not included. Date of Surgery: Attending: Office Phone: Office Fax: 06/03/2021 Jayy Granger MD, FAANS Drs. Garcia/Kyrie/[facility]kin Neurosurgical/Orthopaedic Spine Operative Report Surgeon: Jayy Granger MD, FAANS Preoperative Diagnosis: 1. Lumbar radiculopathy Postoperative Diagnosis: 1. Lumbar radiculopathy Name of Procedure: 1. Right L5-S1 lumbar laminotomy, medial facetectomy, foraminotomy and discectomy. 2. Use of operative microscope for microdissection. Anesthesia: General Endotracheal Anesthesia Estimated Blood Loss: No blood loss documented. Intraoperative Fluids: See anesthesia note Specimens: None Blood/Blood Products Transfused: None Complications: None Condition on Discharge from the operating room was: Stable Operative Findings: Disc herniation with compression of the traversing S1 nerve root. Foraminal stenosis, right L5S1. Indications: Mr. Horn is a 71 y.o. male with the above noted diagnosis unresponsive to conservative treatment. After careful review of the history, physical exam and radiographic findings, we felt that the he would benefit from lumbar microdiscectomy. Risks, alternatives and benefits of the procedure including, but not limited to, bleeding, infection, coma, , heart attack, stroke, paralysis, loss of vision, CSF leak, spinal instability requiring future operations, failure to relieve symptoms, bowel and bladder dysfunction, and sexual dysfunction were discussed with the patient. He understands and wishes to proceed. Procedure: After identifying, marking and examining Mr. Horn, he was brought to the operating room on an OR gurney. Sequential Compression Devices were placed on the lower legs for DVT prophylaxis. The patientwas intubated by anesthesia and general endotracheal anesthesia was induced. The patient was turnedonto a Clay frame on a Skytron table. The arms were placed on cushioned arm rests. All surfaces were padded and straps were used to secure the patient. Intraoperative xray was used for localilzation through the case. Intraoperative neuromonitoring was carried out by means of real time continuous bi-directional remote audio/visual communication between the biomass technician, reader and myself. There was irritation of the right anterior tibialis on EMG which imroved after decompression. Palpation of the low back was used to pick a midline entry point The lower back was prepped and draped in the usual fashion. After a time-out was completed, the skin was infiltrated with half percent marcaine with epinephrine. A #10 blade was used to make a linearmidline incision. Bleeding throughout the case was controlled with bipolar and monopolar electrocautery. A sharp dissection was carried down to the fascia. The paraspinal muscles were reflected laterally off of the spinous processes and laminae of L5 and S1 on the right. Deep retractors were placedand an angled curette was placed below the superior lamina. The correct level was verified with intraoperative xray. At this point, the operative microscope was brought into the field and used for brendan rodissection up until closing. A high speed lona drill was used to perform a laminotomy and remove a portion of the medial facet. The ligamentum flavus was removed with angled curettes and punches. The thecal sac and exiting nerveroot were identified. A foraminotomy was pefromed with punches and the thecal sac and nerve root were retracted medially. A disc herniation was identified and a hole was made in the posterior longitudinal ligament with a #15 blade. Down-biting curettes were used to free the disc herniation from surrounding tissue and pituitary rongeurs were used to remove the disc herniation. No hole was found in the underlying annulus. After decompression, the course of the S1 nerve root was palpated with a [place] and found to be widely decompressed along its entire course out into the foramen. The wound was copiously irrigated with antibiotic containing solution and then closed in layers. Perineo was used to seal the skin. The patient tolerated the procedure well without complication and was discharged in stable condition to the Post Anesthesia Care Unit with an unchanged neurological exam. IJayy MD, was present throughout and performed the entire procedure. Jayy Granger MD Date: 06/03/2021 Time: 11:40 AM PRESIDENT OF NEWS * Plan of Care - Jayy Granger MD - 06/03/2021 9:43 AM CST Images from the original note were not included. Date of Surgery: Attending: Office Phone: Office Fax: 06/03/2021 Jayy Granger MD, FAANS Drs. Garcia/Kyrie/[facility] Neurosurgical/Orthopaedic Spine Re: Douglas Horn Dear Dr. Alonso MD, Thank you for referring Douglas J Justina to my care. As you know, Mr. Horn is a 71 y.o. male with lumbosacral radiculopathy unresponsive to conservative treatment. Mr. Horn is being admitted today to [facility] to undergo lumbar microdiscectomy. I anticipate discharge to home later today. Patient status inquiries can be directed to: [facility] Sales Representative Uniforms [facility] W4S Ortho/spine floor [place] [employer] W4W Ortho/spine floor If you have any other questions, please do not hesitate to contact me through my office number of [phone]. Thanks again, Jayy Granger MD, FAANS PRESIDENT OF NEWS documented in this encounter Plan of Treatment Not on file documented as of this encounter Procedures Procedure Name Priority Date/Time Associated Diagnosis Comments XR SPINE LUMBAR 1 VIEW IP Routine 11:15 AM VICE PRESIDENT OF NEWS Lower back pain LUMBAR LAMINECTOMY MICRODISCECTOMY 06/03/2021 10:36 AM VICE PRESIDENT OF NEWS Lumbar radiculopathy documented in this encounter Results * XR Spine Lumbar 1 View (06/03/2021 11:15 AM VICE PRESIDENT OF NEWS) Anatomical Region Laterality Modality Spine N/A Computed Radiogr aphy 06/03/2021 11:5 5 AM VICE PRESIDENT OF NEWS Impressions 06/03/2021 11:55 AM VICE PRESIDENT OF NEWS FINDINGS/IMPRESSION: Single intraoperative lateral radiograph was presented for interpretation. ??Mild retrolisthesis of L3 upon L4 and L4 upon L5 is identified. ??Prominent traction osteophytes are present at L4-L5. The vertebral bodies are of normal height without evidence of compression fractures. ??Surgical instrumentation is seen adjacent to the posterior elements of L5 and S1. ??Of note, one surgical instrument has its tip terminating near the inferior articular process of L5. ??Intervertebral disc height loss is noted at L4-L5 and L5-S1. Electronically signed by: Ariel Poe M.D. Narrative 06/03/2021 11:55 AM VICE PRESIDENT OF NEWS EXAMINATION: XR SPINE LUMBAR 1 VIEW HISTORY: L5-S1 Right Lumbar Microdiscectomy DATE: 06/03/2021 COMPARISON:None. Procedure Note Ariel Poe MD - 06/03/2021 EXAMINATION: XR SPINE LUMBAR 1 VIEW HISTORY: L5-S1 Right Lumbar Microdiscectomy DATE: 06/03/2021 COMPARISON:None. IMPRESSION: FINDINGS/IMPRESSION: Single intraoperative lateral radiograph was presented for interpretation. Mild retrolisthesis of L3 upon L4 and L4 upon L5 is identified. Prominent traction osteophytes are present at L4-L5. The vertebral bodies are of normal height without evidence of compression fractures. Surgical instrumentation is seen adjacent to the posterior elements of L5 and S1. Of note, one surgical instrument has its tip terminating near the inferior articular process of L5. Intervertebral disc height loss is noted at L4-L5 and L5-S1. Electronically signed by: Ariel Poe M.D. Jayy Granger MD IMG XR PROCEDURES Final Resul t documented in this encounter Visit Diagnoses Diagnosis Lumbar radiculopathy- Primary Thoracic or lumbosacral neuritis or radiculitis, unspecified Lower back pain Lumbago Lumbar radiculopathy Thoracic or lumbosacral neuritis or radiculitis, unspecified documented in this encounter Admitting Diagnoses Diagnosis Lumbar radiculopathy Thoracic or lumbosacral neuritis or radiculitis, unspecified documented in this encounter Administered Medications Inactive Administered Medications - up to 3 most recent administrations Medication Order MAR Action Action Date Dose Rate Site acetaminophen (TYLENOL) tablet 1,000 mg 1,000 mg, oral, Once, On Thu06/03/21 at 0915, For 1 dose, Pre-Op, Indications: Pre-Emptive AnalgesiaIndications:Pre-E mptive Analgesia Given 06/03/2021 9:25 AM VICE PRESIDENT OF NEWS 1,000 mg bupivacaine-EPINEPHrine (MARCAINE with EPI) 0.5 %-1:200,000 preservative free injection As needed, Starting on Thu06/03/21 at 1116, Intra-Op Given 06/03/2021 11:16 AM VICE PRESIDENT OF NEWS 7 mL Surgical Site fentaNYL (SUBLIMAZE) preservative free injection 25 mcg 25 mcg, intravenous, Every 5 min PRN, uncontrolled pain on PACU admission, Starting on Thu06/03/21 at 1208, For 4 doses, Phase I, Maximum dosage of fentanyl of 100 mcg for arrival to PACU, then proceed to PACU 1st line analgesic., Indications: PainIndications:Pain Given 06/03/2021 12:30 PM VICE PRESIDENT OF NEWS 25 mcg Given 06/03/2021 12:25 PM VICE PRESIDENT OF NEWS 25 mcg gabapentin (NEURONTIN) capsule 200 mg 200 mg, oral, Once, On Thu06/03/21 at 0915, For 1 dose, Pre-Op, Indications: Pre-Emptive AnalgesiaIndications:Pre-Emp tive Analgesia Given 06/03/2021 9:25 AM VICE PRESIDENT OF NEWS 200 mg Lactated Ringer's (LR) infusion 30 mL/hr, intravenous, Continuous, Starting on Thu06/03/21 at 0915, Pre-Op Rate/Dose Verify 06/03/2021 10:32 AM VICE PRESIDENT OF NEWS 30 mL/hr New Bag 06/03/2021 9:25 AM VICE PRESIDENT OF NEWS 30 mL/hr 30 mL/hr lidocaine PF (XYLOCAINE) 10 mg/mL (1 %) preservative free injection 2-10 mg 2-10 mg (0.2-1 mL), other, Once as needed, pain with IV placement, Starting on Thu06/03/21 at 0835, For 1 dose, Pre-Op, Administer volume needed to infiltrate IV site. oxyCODONE (ROXICODONE) tablet 5 mg 5 mg, oral, As needed, 1st line for pain, Starting on Thu06/03/21 at 1208, For 2 doses, Phase I, 1st ORAL choice for pain, when the patient is able to tolerate PO medications. May repeat in 1 hour if pain is uncontrolled or increasing after 1st dose., Indications: PainIndications:Pain Given 06/03/2021 1:47 PM VICE PRESIDENT OF NEWS 5 mg Given 06/03/2021 12:27 PM VICE PRESIDENT OF NEWS 5 mg sodium chloride 0.9% flush 0.5-20 mL 0.5-20 mL, intra-catheter, As needed, line care, Starting on Thu06/03/21 at 0835, Pre-Op, Flush volume based on line type and size. Flush before and after each use. sodium chloride 0.9% irrigation As needed, Starting on Thu06/03/21 at 1117, Intra-Op Given 06/03/2021 11:17 AM VICE PRESIDENT OF NEWS 1,000 mL Surgical Site thrombin-recombinant 5,000 unit topical solution As needed, Starting on Thu06/03/21 at 1117, Intra-Op Given 06/03/2021 11:17 AM VICE PRESIDENT OF NEWS 5,000 Units Surgical Site documented in this encounter Discontinued Medications Medication Sig Discontinue Reason Start Date End Da te methylPREDNISolone (MEDROL DOSEPACK) 4 mg Dosepack Take 4 mg by mouth as needed (for Pseudomonas respirtory infection flare up) Take as directed on package Stop Taking at Discharge 06/03/2021 documented as of this encounter Active and Recently Administered Medications Times are shown in VICE PRESIDENT OF NEWS. Scheduled Medication Order 06/01/2021 06/02/2021 06/03/2021 acetaminophen (TYLENOL) tablet 1,000 mg (COMPLETED) 1,000 mg, oral, Once, On Thu06/03/21 at 0915, For 1 dose, Pre-Op, Indications: Pre-Emptive Analgesia 0925 (Given - Provid er: Devin Gottlieb RN) ceFAZolin (ANCEF) 2,000 mg/20 mL in sterile water (premix) 2,000 mg (COMPLETED) 2,000 mg, intravenous, at 400 mL/hr, Administer over 3 Minutes, Once, On Thu06/03/21 at 0915, For 1 dose, Pre-Op, Administer within 60 minutes of incision., Indications: Prophylaxis, Surgical 1044 (Given - Provid er: Zachary Acevedo MD)1205 (Anesthesia Volume Adjustment - Provider: Diana Rojo CRNA) gabapentin (NEURONTIN) capsule 200 mg (COMPLETED) 200 mg, oral, Once, On Thu06/03/21 at 0915, For 1 dose, Pre-Op, Indications: Pre-Emptive Analgesia 0925 (Given - Provid er: Devin Gottlieb RN) Continuous Medication Order 06/01/2021 06/02/2021 06/03/2021 Lactated Ringer's (LR) infusion 30 mL/hr, intravenous, Continuous, Starting on Thu06/03/21 at 0915, Pre-Op 0925 (New Bag - Prov ider: Devin Gottlieb RN)1032 (Rate/Dose Verify - Provider: Diana Rojo CRNA)1205 (Anesthesia Volume Adjustment - Provider: Diana Rojo CRNA) PRN Medication Order 06/01/2021 06/02/2021 06/03/2021 albuterol 2.5 mg /3 mL (0.083 %) nebulizer solution 2.5 mg 2.5 mg, nebulization, As needed, wheezing, Starting on Thu06/03/21 at 1208, For 2 doses, Phase I, Notify Anesthesiologist. , Indications: Bronchospastic Pulmonary Disease bupivacaine-EPINEPHrine (MARCAINE with EPI) 0.5 %-1:200,000 preservative free injection (CANCELED) As needed, Starting on Thu06/03/21 at 1116, Intra-Op 1116 (Given - Provid er: Jayy Granger MD) dextrose (D10W) 10% bolus 250 mL 250 mL, intravenous, at 1,000 mL/hr, Administer over 15 Minutes, Once as needed, blood glucose less than 70 mg/dL, Starting on Thu06/03/21 at 0939, Pre-Op, Indications: Hypoglycemia diphenhydrAMINE (BENADRYL) injection 12.5 mg 12.5 mg, intravenous, Every 15 min PRN, itching, Starting on Thu06/03/21 at 1208, For 2 doses, Phase I, Max cumulative dose 50 mg., Indications: Itching fentaNYL (SUBLIMAZE) preservative free injection 25 mcg 25 mcg, intravenous, Every 5 min PRN, uncontrolled pain on PACU admission, Starting on Thu06/03/21 at 1208, For 4 doses, Phase I, Maximum dosage of fentanyl of 100 mcg for arrival to PACU, then proceed to PACU 1st line analgesic., Indications: Pain 1225 (Given - Provid er: Eileen Garcia RN)1230 (Given - Provider: Eileen Garcia RN) haloperidol (HALDOL) injection 1 mg 1 mg, intravenous, Administer over 5 Minutes, Once as needed, nausea, vomiting, Starting on Thu06/03/21 at 1208, For 1 dose, Phase I, If post-operative nausea and/or vomiting is not relieved by ondansetron within 30 minutes or if more than 8mg of ondansetron have been given within the last 6 hours. HYDROmorphone (DILAUDID) injection 0.2 mg 0.2 mg, intravenous, Administer over 2 Minutes, Every 10 min PRN, 1st line for pain, Starting on Thu06/03/21 at 1208, For 10 doses, Phase I, Switch to 2nd line analgesic order if pain is uncontrolled or increasing after 1 dose. Notify Anesthesiologist if total PACU dose reaches 2 mg and pain score 5/10 or more., Indications: Pain HYDROmorphone (DILAUDID) injection 0.4 mg 0.4 mg, intravenous, Administer over 2 Minutes, Every 10 min PRN, 2nd line for pain, Starting on Thu06/03/21 at 1208, For 5 doses, Phase I, May administer 10 mintes after 1st dose of 1st line analgesic agent for uncontrolled or increasing pain. Revert to 1st line dose if POSS of 3. Notify Anesthesiologist if total PACU dose reaches 2 mg and pain score 5/10 or more., Indications: Pain insulin lispro (HumaLOG, ADMELOG) 100 unit/mL injection 1-5 Units 1-5 Units, subcutaneous, Once as needed, high blood sugar, Starting on Thu06/03/21 at 1208, For 1 dose, Phase I, Blood Sugar Mid Dose - Surgical/Post-Op ICU 139 or less No insulin 140 - 175 1 unit 176 - 200 2 unit 201 - 250 3 units 251 - 299 5 units Greater than 299 Call MD for hyperglycemia management instructions Do NOT hold for NPO status., Indications: Diabetes Mellitus labetaloL (NORMODYNE,TRANDATE) injection 5 mg 5 mg, intravenous, at 30 mL/hr, Administer over 2 Minutes, Every 10 min PRN, high blood pressure, Starting on Thu06/03/21 at 1208, For 4 doses, Phase I, Max cumulative dose 20 mg. Dose if systolic blood pressure greater than 180 AND HR greater than 70. lidocaine PF (XYLOCAINE) 10 mg/mL (1 %) preservative free injection 2-10 mg 2-10 mg (0.2-1 mL), other, Once as needed, pain with IV placement, Starting on Thu06/03/21 at 0835, For 1 dose, Pre-Op, Administer volume needed to infiltrate IV site. meperidine (DEMEROL) preservative free injection 12.5 mg 12.5 mg, intravenous, Administer over 5 Minutes, Every 10 min PRN, shivering, Starting on Thu06/03/21 at 1208, For 2 doses, Phase I, Max cumulative dose 25 mg., Indications: Shivering naloxone (NARCAN) 0.4 mg/mL injection 0.04-0.4 mg 0.04-0.4 mg, intravenous, Once as needed, other, excessive sedation/respiratory depression, Starting on Thu06/03/21 at 1208, For 1 dose, Phase I, BEFORE ADMINISTERING - notify anesthesiologist to verify administration. Then, dilute 0.4 mg with 9 mL NS (final concentration 0.04 mg/mL). For respiratory depression (respiratory rate less than 6), administer 0.4 mg IVP over 30 seconds. For excessive sedation administer 0.04 mg (1 mL) every 1 minute until desired level of alertness. For IV, administer over 30 seconds., Indications: Opioid Toxicity ondansetron (ZOFRAN) injection 4 mg 4 mg, intravenous, Administer over 2 Minutes, Once as needed, nausea, vomiting, Starting on Thu06/03/21 at 1208, For 1 dose, Phase I, Proceed to haloperidol if more than 8 mg of ondansetron have been given within the last 6 hours., Indications: Prevention of Post-Operative Nausea and Vomiting oxyCODONE (ROXICODONE) tablet 5 mg (COMPLETED) 5 mg, oral, As needed, 1st line for pain, Starting on Thu06/03/21 at 1208, For 2 doses, Phase I, 1st ORAL choice for pain, when the patient is able to tolerate PO medications. May repeat in 1 hour if pain is uncontrolled or increasing after 1st dose., Indications: Pain 1227 (Given - Provid er: Eileen Garcia RN)1347 (Given - Provider: Eileen Garcia RN) racepinephrine (ASTHMANEFRIN) 2.25 % nebulizer solution 0.5 mL 0.5 mL, nebulization, As needed, other, stridor, Starting on Thu06/03/21 at 1208, For 2 doses, Phase I, Notify Anesthesiologist. , Indications: Wheezing sodium chloride 0.9% flush 0.5-20 mL 0.5-20 mL, intra-catheter, As needed, line care, Starting on Thu06/03/21 at 0835, Pre-Op, Flush volume based on line type and size. Flush before and after each use. sodium chloride 0.9% irrigation (CANCELED) As needed, Starting on Thu06/03/21 at 1117, Intra-Op 1117 (Given - Provid er: Jayy Granger MD - Comment: PRN on field) thrombin-recombinant 5,000 unit topical solution (CANCELED) As needed, Starting on Thu06/03/21 at 1117, Intra-Op 1117 (Given - Provid er: Jayy Granger MD - Comment: mixed with Surgifoam) documented in this encounter Orders Medications Ordered That Antione ht Not Have Been Administered Count Last Ordered Date First Ordered Date albuterol 2.5 mg /3 mL (0.08 3 %) nebulizer solution 2.5 mg 1 06/03/2021 ceFAZolin (ANCEF) 2,000 mg/2 0 mL in sterile water (premix) 2,000 mg 1 06/03/2021 dextrose (D10W) 10% bolus 250 mL 1 06/04/19 diphenhydrAMINE (BENADRYL) i njection 12.5 mg 1 06/03/2021 haloperidol (HALDOL) injection 1 mg 1 06/03 HYDROmorphone (DILAUDID) injection 0.2 mg 1 06/03/2021 HYDROmorphone (DILAUDID) injection 0.4 mg 1 06/03/2021 insulin lispro (HumaLOG, ADM ELOG) 100 unit/mL injection 1-5 Units 1 06/03/2021 labetaloL (NORMODYNE,TRANDAT E) injection 5 mg 1 06/03/2021 lidocaine PF (XYLOCAINE) 10 mg/mL (1 %) preservative free injection 2-10 mg 1 06/03/2021 meperidine (DEMEROL) preserv ative free injection 12.5 mg 1 06/03/2021 naloxone (NARCAN) 0.4 mg/mL injection 0.04-0.4 mg 1 06/03/2021 ondansetron (ZOFRAN) injection 4 mg 1 06/03 racepinephrine (ASTHMANEFRIN ) 2.25 % nebulizer solution 0.5 mL 1 06/03/2021 sodium chloride 0.9% flush 0.5-20 mL 1 09/2021 Diet Count Last Ordered Date First Orde red Date ADULT DIET 1 06/03/2021 Nursing Count Last Ordered Date First Orde red Date ACTIVITY 2 06/03/2021 DISCHARGE INSTRUCTIONS 2 06/03/2021 NURSING COMMUNICATION 4 06/03/2021 PATIENT MAY SHOWER 1 06/03/2021 Discharge Count Last Ordered Date First Orde red Date DISCHARGE PATIENT 1 06/03/2021 documented in this encounter Care Teams Manager Digital Ad Operations Relationship Specialty Start Date End Date Anil Gupta MD [address] [place] [address] PCP - General Internal Medicine 04/19/21 Anil Gupta MD [address] [facility] [address] [place] [address] Internal Medicine 04/19/21 documented as of this encounter
--- OUTSIDE RECORDS SUMMARY | 2024-03-19 07:31 | XMS_ITS | Encounter Summary ---
Author Organization [facility] Medical Group Address [address] [place] [address] Care Team Providers Care Assistant Teacher Name Role Phone Anil Gupta MD Primary Care Provider [phone] Anil Gupta MD Unavailable [phone] Encounter Details Date Type Department Care Team (Late st Contact Info) Description 05/20/2021 Telephone [facility] [place] [address] [place] [address] Jazmin Marie CAR MECHANIC HELPER [address] [place], [place] [id number] Social History Tobacco Use Types Packs/Day Years [...] on file Legal Sex Male 12:56 PM OUTSIDE SOLAR SALES CONSULTANT Gender Identity Male 05/23/2021 12:08 PM OUTSIDE SOLAR SALES CONSULTANT Sexual Orientation Straight 05/23/2021 12 :08 PM OUTSIDE SOLAR SALES CONSULTANT documented as of this encounter Miscellaneous Notes * Telephone Encounter - Jazmin Marie NP - 05/20/2021 12:36 PM CST Called patient with surgery date of June 03, 2021 arrive at 8:00 a.m. to [facility] for rightL5-S1 lumbar microdiskectomy with Dr. Jayy Granger. Patient to call and schedule his own pre testing appointment. Orders placed in epic/DVT form. Will mail surgery folder to the patient and call withsurgical instructions. Patient to drop off is MRI CD the day of pre testing. IDE SOLAR SALES CONSULTANT documented in this encounter Plan of Treatment Not on file documented as of this encounter Visit Diagnoses Not on filedocumented in this encounter Care Teams Assistant Teacher Relationship Specialty Start Date End Date Anil Gupta MD [address] [place] [address] PCP - General Internal Medicine 04/19/21 Anil Gupta MD [address] [place] [address] Internal Medicine 04/19/21 documented as of this encounter
--- OUTSIDE RECORDS SUMMARY | 2024-03-19 07:31 | XMS_ITS | Encounter Summary ---
Author Organization [facility] Healthcare Address [address] [place] [address] Care Team Providers Care Mental Health Worker Name Role Phone Anil Gupta MD Primary Care Provider [phone] Anil Gupta MD Unavailable [phone] Reason for Referral * Diagnostic Imaging (Routine) - Closed Specialty Diagnoses / Procedures Referred By Contac t Referred To Contact Diagnoses Lumbar radiculopathy Procedures XR Spine Lumbar Flex Ext Only 2 Views Jayy Granger MD Phone: tel: fax: [facility] [address] [place] [address] Referral ID Status Reason Start Date Expiration Date Visits Re quested Visits Authorized [id number] Closed 07/09/2021 08/08/2022 1 1 Reason for Visit * Diagnostic Imaging (Routine) - Closed Specialty Diagnoses / Procedures Referred By Contac t Referred To Contact Diagnoses Lumbar radiculopathy Procedures XR Spine Lumbar Flex Ext Only 2 Views Jayy Granger MD Phone: tel: fax: [facility] [address] [place] [address] Referral ID Status Reason Start Date Expiration Date Visits Re quested Visits Authorized [id number] Closed 07/09/2021 08/08/2022 1 1 Encounter Details Date Type Department Care Team (Latest Contact Info) Description 07/11/2021 11:56 AM CDT - 07/11/2021 11:59 PM CDT Hospital Encounter [facility] - Imaging [address] [place] [address] Lumbar radiculopathy Discharge Disposition: Discharge to home or self [...] on file Legal Sex Male 12:56 PM TITLE CLOSER Gender Identity Male 05/23/2021 12:08 PM TITLE CLOSER Sexual Orientation Straight 05/23/2021 12 :08 PM TITLE CLOSER documented as of this encounter Medications at [...] package 1 packet 06/20/2021 2 nebulizer accessories [facility] [place] Instructions, 1 each, 1 each, Route to Pharmacy Electronically, [facility]/pharmacy #[id number], [id number], Instructions Replace Required Details, Supply 12/12/2019 [...] Date/Time Associated Diagnosis Comments XR LUMBAR SPINE FLEX EXT ONLY Schedule Routine, Read Routine (OP Routine) 07/11/2021 12:23 PM CDT Lumbar radiculopathy documented in this encounter Results * XR Spine Lumbar Flex Ext Only 2 Views (07/11/2021 12:23 PM CDT) Anatomical Region Laterality Modality L-spine N/A Computed Radiogr aphy 07/11/2021 12:4 1 PM CDT Impressions 07/11/2021 12:46 PM CDT Minimal retrolisthesis of L4 over L5 prominent in the extension and neutral views. ??Facet arthropathy prominent at L4-L5. Dictated by: Jammie Morales MD Electronically signed by: Arden Will M.D, PHD Narrative 07/11/2021 12:46 PM CDT XR LUMBAR SPINE FLEX EXT ONLY 2 VIEWS, 3 lateral images were obtained including neutral, extension and flexion positions: 07/11/2021 12:00 PM CLINICAL INDICATION: L3-4 Stenosis, checking for instability. COMPARISON: MRI outside study 10/04/2020 FINDINGS: No definite vertebral body height loss. ??There is minimal retrolisthesis of L4 over L5 more conspicuous on extension and neutral positions. ??Straightening of the cervical lordosis on flexion position. ??Facet arthropathy at multiple levels prominent at L4-L5. Procedure Note Arden Will MD PhD - 07/11/2021 XR LUMBAR SPINE FLEX EXT ONLY 2 VIEWS, 3 lateral images were obtained including neutral, extension and flexion positions: 07/11/2021 12:00 PM CLINICAL INDICATION: L3-4 Stenosis, checking for instability. COMPARISON: MRI outside study 10/04/2020 FINDINGS: No definite vertebral body height loss. There is minimal retrolisthesis of L4 over L5 more conspicuous on extension and neutral positions. Straightening of the cervical lordosis on flexion position. Facet arthropathy at multiple levels prominent at L4-L5. IMPRESSION: Minimal retrolisthesis of L4 over L5 prominent in the extension and neutral views. Facet arthropathy prominent at L4-L5. Dictated by: Jammie Morales MD Electronically signed by: Arden Will M.D, PHD Jayy Granger MD IMG XR PROCEDURES Final Resul t documented in this encounter Visit Diagnoses Diagnosis Lumbar radiculopathy Thoracic or lumbosacral neuritis or radiculitis, unspecified documented in this encounter Care Teams Mental Health Worker Relationship Specialty Start Date End Date Anil Gupta MD [address] [place] [address] PCP - General Internal Medicine 04/19/21 Anil Gupta MD [address] [place] [address] Internal Medicine 04/19/21 documented as of this encounter
--- OUTSIDE RECORDS SUMMARY | 2024-03-19 07:31 | XMS_ITS | Encounter Summary ---
Author Organization [facility] Medical [facility] Address [address] [place] [address] Care Team Providers Care Senior Coldfusion Developer Name Role Phone Anil Gupta MD Primary Care Provider [phone] Anil Gupta MD Unavailable [phone] Reason for Referral * Diagnostic Imaging (Routine) - Closed Specialty Diagnoses / Procedures Referred By Contac t Referred To Contact Diagnoses Lumbar radiculopathy Procedures XR Spine Lumbar Flex Ext Only 2 Views Jayy Granger MD Phone: tel: fax: [facility] [address] [place] [address] Referral ID Status Reason Start Date Expiration Date Visits Re quested Visits Authorized [id number] Closed 07/09/2021 08/08/2022 1 1 Encounter Details Date Type Department Care Team (Late st Contact Info) Description 07/09/2021 Telephone [facility] [place] [address] [place] [address] Jazmin Marie, ACCOUNTING ASSOCIATE [address] [facility] [address] [place] [address] Social History Tobacco Use Types [...] on file Legal Sex Male 12:56 PM JAVA ANALYST Gender Identity Male 05/23/2021 12:08 PM JAVA ANALYST Sexual Orientation Straight 05/23/2021 12 :08 PM JAVA ANALYST documented as of this encounter Miscellaneous Notes * Telephone Encounter - Jazmin Marie NP - 07/09/2021 5:26 PM CDT Called patient and his regarding the below results and recommendations. Patient has a follow-up appointment with Dr. Granger on July 16 and will further discuss the results. Patient to obtainthe flexion-extension lumbar films same day of appointment. Explained to the patient I have no further medications or intervention to offer in the interim. ----- Message from Jayy Granger MD sent at 07/09/2021 4:11 PM CDT ----- Regarding: FW: MRI lumbar results I reviewed the films that show no recurrent disc herniation at L5-S1. There was a wide decompression. There is significant facet arthropathy and synovial cyst at L3-4. We will get flexion-extension films to look for any instability. If there is instability, he may benefit from L3-4 decompression and fusion. In the absence of instability, he would likely benefit from injections. ----- Message ----- From: Jazmin Marie NP Sent: 07/09/2021 10:02 AM CDT To: Jayy Granger MD Subject: MRI lumbar results Received MRI lumbar spine without contrast dated 07/08/2021 from [facility] for your review and further recommendations. documented in this encounter Plan of Treatment [...] Thoracic or lumbosacral neuritis or radiculitis, unspecified Lumbar radiculopathy Thoracic or lumbosacral neuritis or radiculitis, unspecified documented in this encounter Care Teams Senior Coldfusion Developer Relationship Specialty Start Date End Date Anil Gupta MD [address] [place] [address] PCP - General Internal Medicine 04/19/21 Anil Gupta MD [address] [place] [address] Internal Medicine 04/19/21 documented as of this encounter
--- OUTSIDE RECORDS SUMMARY | 2024-03-19 07:31 | XMS_ITS | Encounter Summary ---
Author Organization [facility] Medical Group Address [address] [place] [address] Care Team Providers Care Building Supervisor Name Role Phone Anil Gupta MD Primary Care Provider [phone] Anil Gupta MD Unavailable Encounter Details Date Type Department Care Team (Late st Contact Info) Description 07/17/2021 Orders Only [facility] [place] [address] [place] [address] Jayy Granger MD [address] [place] [address] Lumbar radiculopathy (Primary Dx) Social [...] on file Legal Sex Male 12:56 PM ADMINISTRATOR Gender Identity Male 05/23/2021 12:08 PM ADMINISTRATOR Sexual Orientation Straight 05/23/2021 12 :08 PM ADMINISTRATOR documented as of this encounter Progress Notes * Ally Aldana - 07/17/2021 8:50 AM CDT [facility] order faxed to [facility] they will call patient to [facility] appt. Pt is aware. documented in this encounter Plan of Treatment Not on file documented as of this encounter Visit Diagnoses Diagnosis Lumbar radiculopathy- Primary Thoracic or lumbosacral neuritis or radiculitis, unspecified documented in this encounter Care Teams Building Supervisor Relationship Specialty Start Date End Date Anil Gupta MD [address] [place] [address] PCP - General Internal Medicine 04/19/21 Anil Gupta MD [address] [place] [address] Internal Medicine 04/19/21 documented as of this encounter
--- OUTSIDE RECORDS SUMMARY | 2024-03-19 07:31 | XMS_ITS | Encounter Summary ---
Author Organization [facility] Healthcare Address [address] [place] [address] Care Team Providers Care Talent Development Director Name Role Phone Anil Gupta MD Primary Care Provider [phone] Anil Gupta MD Unavailable [phone] Reason for Visit * Auth/Cert Specialty Diagnoses / Procedures Referred By Contac t Referred To Contact Diagnoses Lumbar radiculopathy Lumbar radiculopathy [M54.16] Procedures VA ARTHRODESIS POSTERIOR INTERBODY LUMBAR VA POSTERIOR NON-SEGMENTAL INSTRUMENTATION VA INSJ BIOMCHN DEV INTERVERTEBRAL DSC SPC W/ARTHRD VA ALLOGRAFT FOR SPINE SURGERY ONLY MORSELIZED VA AUTOGRAFT SPINE SURGERY LOCAL FROM SAME INCISION VA BONE MARROW ASPIRATION BONE GRFG SPI SURG ONLY VA LAMINEC/FACETECT/FORAMIN,LUMBAR 1 SEG L5-S1 Transforaminal Lumbar Interbody Fusion vs Posterior Lumbar Fusion Referral ID Status Reason Start Date Expiration Date Visits Re quested Visits Authorized [id number] 1 1 Encounter Details Date Type Department Care Team (Latest Contact Info) Description 10/11/2021 5:28 AM CDT - 10/12/2021 1:23 PM CDT Hospital Encounter [facility] [address] [place] [address] Jayy Granger MD [address] [facility] [address] [place], [place] [id number] Discharge Disposition: Discharge to home or self [...] on file Legal 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 Gender Identity Male 05/23/2021 12:08 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 Sexual Orientation Straight 05/23/2021 12 :08 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 documented as of this encounter Last Filed Vital Signs Vital Sign Reading Time Taken Comments Blood Pressure 110/70 10/12/2021 8:29 AM CDT Pulse 78 10/12/2021 9:15 AM CDT Temperature 36.8 ??C (98.2 ??F) 10/12/2021 8:29 AM CD T Respiratory Rate 16 10/12/2021 9:15 AM CDT Oxygen Saturation 98% 10/12/2021 9:15 AM CDT Inhaled Oxygen Concentration - - Weight 80.7 kg (177 lb 14.6 oz) 10/11/2021 6:27 AM CDT Height 182.9 cm (6') 10/11/2021 6:27 AM CDT Body Mass Index 24.13 10/11/2021 6:27 AM CDT documented in this encounter Discharge Summaries * Jayy Granger MD - 10/12/2021 12:35 PM CDT Inpatient Discharge Summary BRIEF OVERVIEW Admitting Provider: Jayy Granger MD Discharge Provider: Jayy Granger MD Primary Care Physician at Discharge: Anil Gupta MD [phone] Admission Date: 10/11/2021 Discharge Date: 10/12/2021 Admission Location: [facility] Hospital Problems/Diagnoses: Principal Problem: Lumbar radiculopathy Resolved Problems: No resolved hospital problems. DETAILS OF HOSPITAL STAY Presenting Problem/History of Present Illness: Right leg pain Hospital Course: The patient was admitted to the hospital and underwent posterior lumbar decompression and fusion per separate dictated operative note without complication. By post-operative day #1, he was eating, ambulating and voiding well and was discharged home in stable condition with a plan for staple removal in 7 to 10 days. Active Issues Requiring Follow-up: na Test Results Pending at Discharge: Operative Procedures Performed: Procedure(s): L5-S1 Transforaminal Lumbar Interbody Fusion Other Procedures: na Pertinent Test Results: na Discharge Details Physical Exam at Discharge: Discharge Condition: good Pulse: 78 Resp: 16 BP: 110/70 Temp: 36.8 ??C (98.2 ??F) Weight: 80.7 kg (177 lb 14.6 oz) Pertinent Exam Findings at Discharge: full strength Discharge Disposition: Discharge to home or self care Code Status at Discharge: full Discharge Instructions: See d/c sheet Discharge Medications: Current Medications TAKE these medications albuterol HFA 90 mcg/actuation inhaler Inhale 2 puffs every 6 (six) hours as needed for wheezing Commonly known as: PROVENTIL HFA,VENTOLIN HFA,PROAIR HFA budesonide-formoteroL 160-4.5 mcg/actuation inhaler Inhale 2 puffs 2 (two) times a day as needed Rinse mouth with water after use. Do not swallow. Commonly known as: SYMBICORT fluticasone propionate 50 mcg/actuation nasal spray Administer 4 sprays into each nostril daily Commonly known as: FLONASE ipratropium 42 mcg (0.06 %) nasal spray Administer 2 sprays into each nostril 2 (two) times a day Commonly known as: ATROVENT Lyrica 150 mg capsule Take 150 mg by mouth 3 (three) times a day Generic drug: pregabalin * oxyCODONE-acetaminophen 5-325 mg per tablet Take 1-2 tablets by mouth every 4 (four) hours as needed for pain for up to 7 days Maximum 8 tabs/day For: pain Commonly known as: Percocet * oxyCODONE-acetaminophen 5-325 mg per tablet Take 1-2 tablets by mouth every 4 (four) hours as needed for pain for up to 14 days Maximum 6 tablets/day For: pain Commonly known as: Percocet Start taking on: October 18, 2021 rOPINIRole 2 mg tablet Take 2 mg by mouth nightly Commonly known as: REQUIP tiZANidine 4 mg tablet Take 1 tablet (4 mg total) by mouth every 6 (six) hours as needed for muscle spasms For: muscle spasm Commonly known as: ZANAFLEX valACYclovir 500 mg tablet Take 500 mg by mouth daily Commonly known as: VALTREX * This list has 2 medication(s) that are the same as other medications prescribed for you. Read the directions carefully, and ask your doctor or other care provider to review them with you. Outpatient Follow-Up: Future Appointments Date Time Provider Department Center 10/21/2021 11:00 AM NURSE, [facility] [id number] PSA 11/20/2021 11:00 AM Jayy Granger MD [id number] PSA documented in this encounter Medications at Time [...] Maximum 8 tabs/day 56 tablet 10/11/2021 2 albuterol HFA (PROVENTIL HFA,VENTOLIN HFA,PROAIR HFA) [...] Veronica (Symbicort) 160-4.5 mcg/actuation inhaler 12/31/2020 4 lansoprazole (Prevacid) 30 mg capsule 1 capsule (30 mg total) 06/22/2015 4 LYRICA 150 mg capsule Take 2 capsules (300 mg total) by mouth daily 03/17/2018 3 [facility] See Instructions, 1 each, 1 each, Route to Pharmacy Electronically, [facility]/pharmacy #[id number], [id number], Instructions Replace Required Details, Supply 12/12/2019 4 nystatin 100,000 unit/mL suspension 02/19/2021 4 oxyCODONE-acetami nophen (Percocet) 5-325 mg per tabletIndications :Pain Take 1-2 tablets by mouth every 4 (four) hours as needed for pain for up to 14 days Maximum 6 tablets/day 90 tablet 10/18/2021 2 tiZANidine (ZANAFLEX) 4 mg tabletIndications :Muscle Spasm [...] or self care documented in this encounter Progress Notes * Jayy Granger MD - 10/12/2021 12:33 PM CDT Daily Progress Subjective: Symptoms: Resolved. Diet: Adequate intake. Activity level: Returning to normal. Pain: He complains of pain that is mild. Chief complaint of incisional pain. Interval History: s/p L5S1 TLIF Objective: General Appearance: Comfortable. Vital signs: (most recent): Blood pressure 110/70, pulse 78, temperature 36.8 ??C (98.2 ??F), temperature source Oral, resp. rate 16, height 182.9 cm (6'), weight 80.7 kg (177 lb 14.6 oz), SpO2 98 %.No fever. Lungs: Normal effort. Neurological: Patient is alert and oriented to person, place and time. Normal strength. Vitals: 24hr Min/Max: Temp Min: 36.2 ??C (97.1 ??F) Max: 36.8 ??C (98.3 ??F) Pulse Min: 59 Max: 93 BP Min: 100/66 Max: 140/86 Resp Min: 9 Max: 28 SpO2 Min: 93 % Max: 100 % Most Recent : Vitals: 10/12/21 0915 BP: Pulse: 78 Resp: 16 Temp: SpO2: 98% I/O last 2 completed shifts: In: 1858 [P.O.:300; I.V.:1558] Out: 2335 [Urine:2250; Drains:85] I/O this shift: In: 500 [P.O.:500] Out: - Lab/Radiology/Diagnostic Review: No recent results to review Assessment: Condition: In stable condition. Plan: Discharge home. Encourage ambulation. Regular diet. Principal Problem: Lumbar radiculopathy * Chaparrita Walls PTA - 10/12/2021 12:05 PM CDT Physical Therapy 10/12/21 1026 PT Last Visit Session Type Treatment PT Received On 10/12/21 Safe Environment Arm Band Checked;Chair Alarm placed and activated;Call Light within Reach;NotifiedRN;Patient found sitting in Chair;Overbed Table within Reach Subjective Agreeable to Therapy Subjective Comment Patient denying dizziness and lightheadedness throughout treatment session. Family/Caregiver Present No Precautions Precautions Bed/Chair Alarm;Fall risk;Spinal/Back Braces/Orthoses LSO (donned for entire treatment session; minimal assistance required to kavin/doff brace.) Precaution Handout Issued Yes Precaution Comments Handout issued (and reviewed with patient.) Activity Tolerance Activity Tolerance Comments Pre activity vitals: 106/64, 97% O2 on room air, 66 bpm; Post activity vitals: 103/71, 96% O2 on room air, 72 bpm Pain Assessment Pain Assessment 0-10 Pain Score 4 Patient's Stated Pain Goal No pain Pain Type Surgical pain Pain Location Back (Lumbar) Clinical Progression Not changed Pain Interventions RN Notified Cognition Orientation Oriented X4 (person, place, time, situation) Bed Mobility 1 Bed Mobility From 1 Short sit;Edge of bed Bed Mobility Type 1 To and from Bed Mobility to 1 Supine Level of Assistance 1 Standby Assist Bed Mobility Comments 1 log rolling technique; verbal cues required Transfers Transfer Yes Transfer 1 Transfer From 1 Sit;Chair with arms Transfer Type 1 To and from Transfer to 1 Stand Technique 1 Stand to sit;Sit to stand Transfer Device 1 No device Transfer Level of Assistance 1 Standby Assist Transfers 2 Transfer From 2 Car Transfer Type 2 To and from Transfer to 2 Stand Technique 2 Sit to stand;Stand to sit Transfer Device 2 No device Transfer Level of Assistance 2 Minimum Assist Trials/Comments 2 Assistance required for Carlos LEs Ambulation 1 Distance (ft) 1 300 feet x2 Surface 1 Level tile Device 1 No device Other Apparatus 1 Other (Comment) (LSO) Assistance 1 Standby Assist Gait: Requires verbal cues to 1 Increase step length;Improve upright posture Quality of Gait 1 Patient prefers to ambulate without assistive device. Decreased giovanni, forward head, uneven stride, decreased Carlos step length/height. No loss of balance noted. Stairs Stairs Yes Stairs Number of Stairs 1 4 stairs x2 Rails 1 None (Comment) Device 1 No device Assistance 1 Contact Guard Assist Stairs: Requires assist with 1 (Verbal cues for proper sequencing required. Patient preference not to utilize rails despite encouragement multiple times by therapist.) Other Comments Other PT Comments Patient able to verbalize back precautions. Thoroughly reviewed back precautions with patient. Assessment Prognosis Good Problem List Gait deviations;Decreased endurance;Decreased mobility Plan Plan Continue with current plan;If this is the last note, consider this the discharge summary Recommendation/Plan PT Recommendation/Plan (S) Home with 24 hour supervision PT Frequency Daily Treatment/Interventions Balance Training;Bed mobility;Functional activity;Functional transfer training;Gait training;Stair training PT Equipment Recommended None Education: Patient has been educated on the role of PT, safety , precautions, mobility training, and stairs. Education completed via explanation and demonstration. Patient verbalized understanding Multi-Disciplinary Problems (from Physical Therapy) Active Problems Problem: PT Misc Start Date: 10/11/21 Goal Start Date Expected End Date End Date Pt will be modified IND with bed mobility with log roll technique 10/11/21 10/25/21 -- Goal Start Date Expected End Date End Date Pt will be modified IND with transfers and no device 10/11/21 10/25/21 -- Goal Start Date Expected End Date End Date Pt will be modified IND with ambulation 150' with no device 10/11/21 10/25/21 -- Goal Start Date Expected End Date End Date Pt will be modified IND with stairs per pt home set up 10/11/21 10/25/21 -- Goal Start Date Expected End Date End Date Pt will be IND with back precautions and HEP 10/11/21 10/25/21 -- Cosigned by Mariah Khan DPT at 10/12/2021 4:33 PM CDT * Carito Paniagua, OT - 10/12/2021 8:23 AM CDT Occupational Therapy 10/12/21 0823 General Chart Reviewed Yes Session Type Evaluation OT Received On 10/12/21 Safe Environment Arm Band Checked;Chair Alarm placed and activated;Call Light within Reach;NotifiedRN Subjective Agreeable to Therapy Additional Pertinent History Pt with lumbar radiculopathy, s/p L5-S1 Transforaminal Lumbar Interbody Fusion vs Posterior Lumbar Fusion on 10/12/21. PMH includes asthma Family/Caregiver Present No Occupational Therapy-Patient Goal return home Precautions Precautions Bed/Chair Alarm;Fall risk Braces/Orthoses LSO (when OOB) Precaution Handout Issued Yes Home Living Type of Home House Home Layout One level;Basement;Able to live on main level with bedroom/bathroom Home Access Stairs to enter without rails Entrance Stairs-Rails None Entrance Stairs-Number of Steps 4 Bathroom Shower/Tub Walk-in shower with threshold Bathroom Toilet Raised Bathroom Equipment Shower chair Home Mobility Equipment None Home ADL Equipment Review Appraiser;Sock aid;Long-handled shoehorn;Long handled sponge Additional Comments pt plans on installing grab bars Prior Function Level of [place] Independent with ADLs;Independent functional transfers;Independent with homemaking with ambulation Lives With Spouse Receives Help From Spouse/Significant other Driving Yes ADL Assistance Independent Instrumental ADL (IADL) Assistance Independent 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 Leisure (hiking, woodworking, forging) Fall within the last 6 months No ADL ADL Comments don/ doff LSO with verbal cues UE Dressing UE Dressing: Where assessed Standing (despite educating pt it would be safer to complete sitting) UE Dressing: Level of assistance Standby Assist LE Dressing LE Dressing: Where assessed Sitting;Standing LE Dressing: Level of assistance Standby Assist (Max verbal cues for use of AE) LE Dressing: Assistance with Don/doff R sock;Thread RLE into pants;Don/doff L sock;Thread LLE into pants;Thread RLE into underwear;Thread LLE into underwear;Don/doff R shoe;Don/doff L shoe;Use of adaptive equipment LE Dressing: Equipment Utilized Review Appraiser;Sock aid Toileting Toileting: Where assessed Toilet Toileting: Level of assistance Standby Assist Toilet Transfers Toilet Transfers Comments Toilet transfer sit <> stand SBA with cues for hand placement Pain Assessment Pain Assessment 0-10 Pain Score 3 Pain Location Back (Lumbar) Clinical Progression Gradually worsening (5/10 with movement) Pain Interventions Declines Cognition Attention Span Attends with cues to redirect Current communication Appears Intact Orientation Oriented X4 (person, place, time, situation) Safety Judgment Decreased awareness of need for safety Insight Decreased awareness of deficits Compliance/Behavior Easy to engage Bed Mobility 1 Bed Mobility Comments 1 Supine > sit EOB via log roll SBA with cues for keeping spine straight Transfer 1 Trials/Comments 1 Stand pivot EOB > recliner SBA with cues for hand placement. Sit <> stand from recliner SBA. Functional mobility within room SBA via ww Plan Plan Discharge Recommendation/Plan OT Recommendation (S) Home with family;Home with intermittent assist OT Frequency One-time visit (Discharge from this service) Progress Discontinue OT OT Evaluation Complete Yes Education: Patient has been educated on the role of OT, safety, precautions, and ADL training. Education completed via verbal instruction. Patient demonstrated understanding * Selene Flores DPT - 10/11/2021 4:52 PM CDT Physical Therapy Evaluation 10/11/21 1631 General Chart Reviewed Yes Session Type Evaluation PT Received On 10/11/21 Safe Environment Arm Band Checked;Call Light within Reach;Notified RN;Session Completed Bedside;Patient found in Supine;Overbed Table within Reach Subjective Agreeable to Therapy Subjective Comment pt agreeable to complete mobility Family/Caregiver Present Yes () Physical Therapy-Patient Goal return home Precautions Precautions Bed/Chair Alarm;Fall risk;Spinal/Back Braces/Orthoses LSO (with OOB) Home Living Type of Home House Home Layout One level;Basement (pt does not have to use the basement) Home Access Stairs to enter without rails Entrance Stairs-Rails None Entrance Stairs-Number of Steps 4 Bathroom Shower/Tub Walk-in shower with threshold Bathroom Equipment Shower chair Home Mobility Equipment None Additional Comments pt report getting a suction cup grab bar for shower for safety Prior Function Level of [place] Independent with ADLs;Independent functional transfers;Independent with ambulation;Independent with homemaking with ambulation Lives With Spouse Receives Help From Spouse/Significant other Fall within the last 6 months No Prior Function Comments pt report having a walking stick to use if needed for increase in stability Pain Assessment Pain Assessment 0-10 Pain Score 4 Clinical Progression Not changed Cognition Orientation Oriented X4 (person, place, time, situation) Balance Balance No Static Sitting Balance Static Sitting-Level of Assistance Distant supervision Static Standing Balance Static Standing-Level of Assistance Contact guard Dynamic Standing Balance Dynamic Standing-Level of Assistance Contact guard Bed Mobility 1 Bed Mobility Comments 1 supine>sit with CGA with log roll technique and HOB slightly elevated Transfer 1 Trials/Comments 1 sit<>stand with CGA adn WW. pt require increase in time to complete transfer. pt require increase in verbal cues for hand placement and WW safety Ambulation 1 Ambulation Comments 1 35', 5' with WW and CGA. pt demo apparent increase in BLE shakiness and difficulty completing terminal knee extension at this time RLE Assessment RLE Assessment WFL LLE Assessment LLE Assessment WFL Assessment Prognosis Good Problem List Gait deviations;Decreased endurance;Impaired balance;Decreased mobility Barriers to Discharge Current Mobility Status Plan Plan Plan of care initiated;If this is the last note, consider this the discharge summary Recommendation/Plan PT Recommendation/Plan Home with 24 hour supervision PT Frequency Daily Treatment/Interventions Balance Training;Bed mobility;Endurance training;Functional activity;Functional transfer training;Gait training;Stair training PT Equipment Recommended Wheeled walker (pending progress) PT Evaluation Complete Yes Multi-Disciplinary Problems (from Physical Therapy) Active Problems Problem: PT Misc Start Date: 10/11/21 Goal Start Date Expected End Date End Date Pt will be modified IND with bed mobility with log roll technique 10/11/21 10/25/21 -- Goal Start Date Expected End Date End Date Pt will be modified IND with transfers and no device 10/11/21 10/25/21 -- Goal Start Date Expected End Date End Date Pt will be modified IND with ambulation 150' with no device 10/11/21 10/25/21 -- Goal Start Date Expected End Date End Date Pt will be modified IND with stairs per pt home set up 10/11/21 10/25/21 -- Goal Start Date Expected End Date End Date Pt will be IND with back precautions and HEP 10/11/21 10/25/21 -- Education: Patient and family has been educated on the role of PT, safety , precautions, and mobility training. Education completed via explanation. Patient and family verbalized understanding documented in this encounter H&P Notes * Jayy Granger MD - 10/11/2021 7:30 AM CDT I have reviewed the H&P, examined the patient, and endorse the findings as written. 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 fluticasone propionate [...] Medication protocol when under care of a CAN DOFFER Planned anesthesia: General Team communication plan: oral ET tube Induction: Induction: intravenous. Postoperative Plan: No postoperative mechanical ventilation intended. Patient's planned disposition post procedure is Outpatient. Informed Consent: Discussed plan with CAN DOFFER. Anesthesia plan and risks discussed with patient. Consent and Attending signature: I and/or my designee have discussed the anesthesia plan, benefits, possible alternatives, parental presence at time of induction (if indicated), and clinically relevant risks that may include dental injury, unintentional awareness, and/or other complications. The patient and/or parent/legal guardian understand, and agree to proceed. All questions answered. documented in this encounter Nursing Notes * Eileen John RN - 10/12/2021 1:23 PM CDT 10/18/21 1350 Physical Condition (Summarize discussion in comments) Have you had trouble breathing? No Have you had a sore throat? No Have you had any nausea or vomiting? No Have you had a fever? No Any problems urinating? No Any trouble with oral intake? No How does the IV site look? Normal Have you had any post procedure bleeding? No What Relieves Pain? Rest documented in this encounter Miscellaneous Notes * Plan of Care - Trinidad Christian RRT - 10/12/2021 9:19 AM CDT Problem: Respiratory: Goal: Ability to maintain a clear airway will improve Outcome: Progressing Inhaled Bronchodilator Therapy Patient assessed and scored per the established inhaled bronchodilator protocol criteria. Patient preference and subjective response to therapy used in conjunction with patient score to provide current aerosol therapy. Home Medications Patient is seen per current inhaled bronchodilator protocol. Patient has returned to their baselinerespiratory status. Per protocol, patient is able to continue therapies with their home regimen. * Plan of Care - Kan Escamilla - 10/12/2021 4:10 AM CDT Goals: Clinical Goals for the Shift: pain control, VSS, rest Summary: Pt resting comfortably in bed. VSS. Pain controlled on current regimen. Hemovac and RONEY drain in place. Will continue to monitor. Problem: Health Behavior: Goal: Understanding of discharge needs will improve Outcome: Progressing Problem: Activity: Goal: Ability to avoid complications of mobility impairment will improve Outcome: Progressing Goal: Ability to tolerate increased activity will improve Outcome: Progressing Problem: Bowel/Gastric: Goal: Gastrointestinal status for postoperative course will improve Outcome: Progressing Problem: Lack of Knowledge: Goal: Ability to verbalize activity precautions or restrictions will improve Outcome: Progressing Goal: Knowledge of the prescribed therapeutic regimen will improve Outcome: Progressing Problem: Coping: Goal: Ability to verbalize feelings will improve Outcome: Progressing Problem: Fluid Volume: Goal: Will maintain adequate fluid volume Outcome: Progressing Problem: Health Behavior: Goal: Identification of resources available to assist in meeting health care needs will improve Outcome: Progressing Problem: Physical Regulation: Goal: Neurologic status will improve Outcome: Progressing Goal: Ability to maintain clinical measurements within normal limits will improve Outcome: Progressing Problem: Respiratory: Goal: Ability to maintain adequate ventilation will improve Outcome: Progressing Problem: Sensory: Goal: Pain level will decrease Outcome: Progressing Problem: Skin Integrity: Goal: Signs of wound healing will improve Outcome: Progressing Goal: Will remain free from infection Outcome: Progressing Problem: Respiratory: Goal: Ability to maintain a clear airway will improve Outcome: Progressing * Plan of Care - Micaela lCay RRT - 10/11/2021 8:32 PM CDT Lung Sounds Lungs are clear to auscultation with no accessory muscle use. No complaint of subjective dyspnea.Cough Patient has a strong cough on demand. Will continue to monitor sputum amount, color, and consistency.Inhaled Bronchodilator Therapy Patient assessed and scored per the established inhaled bronchodilator protocol criteria. Patient preference and subjective response to therapy used in conjunction with patient score to provide current aerosol therapy. * Plan of Care - Lacy Ramos RN - 10/11/2021 8:26 PM CDT Problem: Health Behavior: Goal: Understanding of discharge needs will improve Outcome: Progressing Problem: Activity: Goal: Ability to avoid complications of mobility impairment will improve Outcome: Progressing Goal: Ability to tolerate increased activity will improve Outcome: Progressing Problem: Bowel/Gastric: Goal: Gastrointestinal status for postoperative course will improve Outcome: Progressing Problem: Lack of Knowledge: Goal: Ability to verbalize activity precautions or restrictions will improve Outcome: Progressing Goal: Knowledge of the prescribed therapeutic regimen will improve Outcome: Progressing Problem: Coping: Goal: Ability to verbalize feelings will improve Outcome: Progressing Problem: Fluid Volume: Goal: Will maintain adequate fluid volume Outcome: Progressing Problem: Health Behavior: Goal: Identification of resources available to assist in meeting health care needs will improve Outcome: Progressing Problem: Physical Regulation: Goal: Neurologic status will improve Outcome: Progressing Goal: Ability to maintain clinical measurements within normal limits will improve Outcome: Progressing Problem: Respiratory: Goal: Ability to maintain adequate ventilation will improve Outcome: Progressing Problem: Sensory: Goal: Pain level will decrease Outcome: Progressing Problem: Skin Integrity: Goal: Signs of wound healing will improve Outcome: Progressing Goal: Will remain free from infection Outcome: Progressing Goals: Clinical Goals for the Shift: pain control, VSS, advance mobility Summary: pain controlled, VSS, advancing mobility, on lidocaine drip * Op Note - Jayy Granger MD - 10/11/2021 7:30 AM CDT Images from the original note were not included. Date of Surgery: Attending: Office Phone: Office Fax: 10/11/2021 Jayy Granger MD, FAANS [facility] Operative Report Surgeon(s): Jayy Granger MD, ISSAC Garcia MD Preoperative Diagnosis: Pre-op Diagnosis * Lumbar radiculopathy [M54.16] Postoperative Diagnosis: Post-op Diagnosis * Lumbar radiculopathy [M54.16] Name of Procedure: 1. Posterolateral arthrodesis and anterior interbody fusion, L5-S1, Drs. Granger and Radha 2. Posterior non-segmental instrumentation (corelink [place]), Dr. Granger. . 3. L5 wide bilateral lumbar laminectomy, facetectomy, foraminotomy for decompression with reexploration and decompression right L5S1, Dr. Garcia. 4. Placement of 11 mm, 12 degree interbody device, Dr. Granger 5. Use of morselized autograft and InQu Bone midwife practitioner, Dr. Granger. 6. Bone marrow aspirate from left iliac crest through separate incision, Dr. Granger. Anesthesia: General Endotracheal Anesthesia Estimated Blood Loss: No blood loss documented. Intraoperative Fluids: See anesthesia note Specimens: None Blood/Blood Products Transfused: None Complications: None Condition on Discharge from the operating room was: None Operative Findings: Severe lumbar lateral recess and foraminal stenosis. Indications: The patient is a 71 y.o. male with the above noted diagnosis unresponsive to conservative treatment. After careful review of the history, physical exam and radiographic findings, we felt that the patient would benefit from posterior lumbar decompression and fusion. Risks, alternatives and benefitsof the procedure including, but not limited to bleeding, infection, coma, , heart attack, stroke, paralysis, loss of vision, CSF leak, spinal instability requiring future operations, failure to relieve symptoms, bowel and bladder dysfunction, and sexual dysfunction. He understands and wishes to proceed. Procedure: After identifying, marking and examining Mr. Horn, he was brought to the operating room on an OR gurney. Sequential Compression Devices were placed on the lower legs for DVT prophylaxis. The patientwas intubated by anesthesia and general endotracheal anesthesia was induced. He was turned into theprone position on a Skytron bed with a Clay frame. All surfaces were padded and straps were used to secure the patient. Intraoperative xray was used for localilzation and to assess the placement ofintstrumentation through the case. Intraoperative neuromonitoring was ordered for safety feedback during the operation. The interpreting physician, Dr. Stanton Valdes, was available by means of realtime continuous bi-directional remote audio/visual communication between the ear mold laboratory technician, reader andmyself throughout the entire procedure. Monitoring modalities included sEMG, TOF, SSEP (upper), SSEP (lower), MEP and Pedicle Screw testing. The posterior back was prepped and draped in the usual fashion. After a time-out was completed, theskin was infiltrated with half percent marcaine with epinephrine. A #10 blade was used to make a midline incision. Bleeding throughout the case was controlled with bipolar and monopolar electrocautery. A sharp dissection was carried down to the fascia. The paraspinal muscles were reflected laterally off the spinous processes, lamina, facets and transverse processes from L5 to the sacrum bilaterally. Deep retractors were placed. The anatomy was quite distorted and the pars extended very laterally bilaterally. The inferior coronal facets at L45 and L5-S1 were removed bilaterally and the pedicles of L5 and S1 were cannulated, tapped and probed. Wax was placed in the holes. Pedicle markers were placed and Ap and lateral filmsshowed good placement. Dr. Patel then performed medial facetectomies and laminectomy of L5 per hisseparate dictated op note with dissection through thick scar on the right. He performed bilateral Gottlieb prodedures and foraminotomies along the L5 and S1 nerve roots bilaterally. Screws were placed on the right and rods and inner nuts were placed under distraction. A hole was made in the annulus on the left and a complete discectomy was performed. The endplates were rasped togently bleeding bone. An 11mm by 31mm, 12 degree cage was filled with I-factor and placed. It was seen to be in good position by xray. The disc space was back filled with I-factor. After adequated decompression, the wound was copiously irrigated with antibiotic containing solution. Gelfoam was placed above the dura. Exposed bony surfaces were drilled to gently bleeding bone andthe L5 transverse process and sacral ala were decorticated bilaterally. A 15 blade was used to makea separate incision about 8cm off midline on the left. A Jam Sheedi needle was inserted into the lef t iliac crest and 10ml of bone marrow aspirate was withdrawn. Some Floseal was injected through theneedle and the needle was removed. The BMA was combined with InQu bone midwife practitioner and morselized autograft. It was packed in the posterolateral recesses bilaterally. I placed 6.5 by 45mm screws in the pedicle of L5 and S1 bilaterally. These were tested and found tohave high impedance consistent with no cortical breach. Connecting rods and inner nuts were placed and final tightened. They were seen to be in good position by intraoperative xray. The wound was then closed in layers. An epifascial drain was placed prior to closure. [place] were used to approximate the skin. A suction dressing was placed.The patient tolerated the procedure wellwithout complication and was discharged in stable condition to the Post Anesthesia Care Unit with an unchanged neurological exam. I, Dr. Granger, and Dr. Garcia were present throughout and performed the entire procedure. Jayy Granger MD Date: 10/11/2021 Time: 7:39 AM documented in this encounter Plan of Treatment Not on file documented as of this encounter Procedures Procedure Name Priority Date/Time Associated Diagnosis Comments XR SPINE LUMBAR 1 VIEW IP Routine 10/11/2021 10:18 AM CDT XR SPINE LUMBAR 1 VIEW IP Routine 10/11/2021 10:09 AM CDT XR SPINE LUMBAR 1 VIEW IP Routine 10/11/2021 9:34 AM CDT XR SPINE LUMBAR 1 VIEW IP Routine 10/11/2021 9:34 AM CDT XR SPINE LUMBAR 2 OR 3 VIEWS IP Routine 10/11/2021 9:34 AM CDT FUSION LUMBAR TRANSFORAMINAL INTERBODY 10/11/2021 7:42 AM CDT Lumbar radiculopathy B CHECK SAMPLE STAT 10/11/2021 6:28 AM CDT documented in this encounter Results * XR Spine Lumbar 1 View (10/11/2021 10:18 AM CDT) Anatomical Region Laterality Modality Spine N/A Computed Radiogr aphy 10/11/2021 11:1 0 AM CDT Impressions 10/11/2021 11:10 AM CDT Interval placement of posterior fusion hardware at L5-S1. Intervertebral prosthesis, unchanged. ??No fracture or acute osseous abnormality. Electronically signed by: Jt Alvares M.D. Narrative 10/11/2021 11:10 AM CDT XR SPINE LUMBAR 1 VIEW: 10/11/2021 10:15 AM CLINICAL INDICATION: lumbar radiculopathy. COMPARISON: Radiographs of the lumbar spine performed earlier the same day on 10/11/2021. Procedure Note Jt Alvares MD - 10/11/2021 XR SPINE LUMBAR 1 VIEW: 10/11/2021 10:15 AM CLINICAL INDICATION: lumbar radiculopathy. COMPARISON: Radiographs of the lumbar spine performed earlier the same day on 10/11/2021. IMPRESSION: Interval placement of posterior fusion hardware at L5-S1. Intervertebral prosthesis, unchanged. No fracture or acute osseous abnormality. Electronically signed by: Jt Alvares M.D. Jayy Granger MD IMG XR PROCEDURES Final Resul t * XR Spine Lumbar 1 View (10/11/2021 10:09 AM CDT) Anatomical Region Laterality Modality Spine N/A Computed Radiogr aphy 10/11/2021 10:1 1 AM CDT Impressions 10/11/2021 10:11 AM CDT Single intraoperative crosstable lateral radiograph of the lumbar spine was obtained. ??Interval placement of posterior fusion hardware at L5-S1 and placement of an intervertebral prosthesis. ??Hardware is intact. ??No acute osseous abnormality. Electronically signed by: Jt Alvares M.D. Narrative 10/11/2021 10:11 AM CDT XR SPINE LUMBAR 1 VIEW: 10/11/2021 9:35 AM CLINICAL INDICATION: Lumbar radiculopathy. COMPARISON: Radiographs of the lumbar spine performed earlier the same day on 10/11/2021. Procedure Note Jt Alvares MD - 10/11/2021 XR SPINE LUMBAR 1 VIEW: 10/11/2021 9:35 AM CLINICAL INDICATION: Lumbar radiculopathy. COMPARISON: Radiographs of the lumbar spine performed earlier the same day on 10/11/2021. IMPRESSION: Single intraoperative crosstable lateral radiograph of the lumbar spine was obtained. Interval placement of posterior fusion hardware at L5-S1 and placement of an intervertebral prosthesis. Hardware is intact. No acute osseous abnormality. Electronically signed by: Jt Alvares M.D. Jayy Granger MD IMG XR PROCEDURES Final Resul t * XR Spine Lumbar 1 View (10/11/2021 9:34 AM CDT) Anatomical Region Laterality Modality Spine N/A Computed Radiogr aphy 10/11/2021 9:59 AM CDT Impressions 10/11/2021 9:59 AM CDT Single intraoperative crosstable lateral radiograph of the lumbar spine was obtained. ??Surgical instrument projects over the posterior paraspinal soft tissues at L5-S1. ??Loss of disc space height and mild endplate degenerative change at multiple locations. ??No acute osseous abnormality. Electronically signed by: Jt Alvares M.D. Narrative 10/11/2021 9:59 AM CDT XR SPINE LUMBAR 1 VIEW: 10/11/2021 6:55 AM CLINICAL INDICATION: Lumbar radiculopathy. COMPARISON: Radiographs of the lumbar spine dated 07/11/2021. Procedure Note Jt Alvares MD - 10/11/2021 XR SPINE LUMBAR 1 VIEW: 10/11/2021 6:55 AM CLINICAL INDICATION: Lumbar radiculopathy. COMPARISON: Radiographs of the lumbar spine dated 07/11/2021. IMPRESSION: Single intraoperative crosstable lateral radiograph of the lumbar spine was obtained. Surgical instrument projects over the posterior paraspinal soft tissues at L5-S1. Loss of disc space height and mild endplate degenerative change at multiple locations. No acute osseous abnormality. Electronically signed by: Jt Alvares M.D. Jayy Granger MD IMG XR PROCEDURES Final Resul t * XR Spine Lumbar 1 View (10/11/2021 9:34 AM CDT) Anatomical Region Laterality Modality Spine N/A Computed Radiogr aphy 10/11/2021 10:0 0 AM CDT Impressions 10/11/2021 10:00 AM CDT Single intraoperative crosstable lateral radiograph of the lumbar spine was obtained. ??Surgical instruments project over the posterior paraspinal soft tissues at L5-S1. ??No acute osseous abnormality. Electronically signed by: Jt Alvares M.D. Narrative 10/11/2021 10:00 AM CDT XR SPINE LUMBAR 1 VIEW: 10/11/2021 8:55 AM CLINICAL INDICATION: Lumbar radiculopathy. COMPARISON: Radiographs of the lumbar spine performed earlier the same day on 10/11/2021. Procedure Note Jt Alvares MD - 10/11/2021 XR SPINE LUMBAR 1 VIEW: 10/11/2021 8:55 AM CLINICAL INDICATION: Lumbar radiculopathy. COMPARISON: Radiographs of the lumbar spine performed earlier the same day on 10/11/2021. IMPRESSION: Single intraoperative crosstable lateral radiograph of the lumbar spine was obtained. Surgical instruments project over the posterior paraspinal soft tissues at L5-S1. No acute osseous abnormality. Electronically signed by: Jt Alvares M.D. Jayy Granger MD IMG XR PROCEDURES Final Resul t * XR Spine Lumbar 2 or 3 Views (10/11/2021 9:34 AM CDT) Anatomical Region Laterality Modality Spine N/A Computed Radiogr aphy 10/11/2021 10:0 2 AM CDT Impressions 10/11/2021 10:02 AM CDT Intraoperative frontal and lateral radiographs of the lumbar spine were obtained. ??Interval placement of instruments along the pedicles at L5 and S1. ??Hardware is intact. ??No acute osseous abnormality. Electronically signed by: Jt Alvares M.D. Narrative 10/11/2021 10:02 AM CDT XR SPINE LUMBAR 2 OR 3 VIEWS: 10/11/2021 9:00 AM CLINICAL INDICATION: Lumbar radiculopathy. COMPARISON: Radiographs of the lumbar spine performed earlier the same day on 10/11/2021. Procedure Note Jt Alvares MD - 10/11/2021 XR SPINE LUMBAR 2 OR 3 VIEWS: 10/11/2021 9:00 AM CLINICAL INDICATION: Lumbar radiculopathy. COMPARISON: Radiographs of the lumbar spine performed earlier the same day on 10/11/2021. IMPRESSION: Intraoperative frontal and lateral radiographs of the lumbar spine were obtained. Interval placement of instruments along the pedicles at L5 and S1. Hardware is intact. No acute osseous abnormality. Electronically signed by: Jt Alvares M.D. us Jayy Granger MD IMG XR PROCEDURES Final Resul t * Check Sample (10/11/2021 6:28 AM CDT) ABO Rh A Negative [facility] HC[facility] OTHER 10/11/2021 6:28 AM CDT 10/11/2021 6:47 AM CDT us Scarlet Obrien NP LAB BLOOD ORDERABLES Fi nal Result [facility] [address] Department of Laboratories [place], [place] [id number] documented in this encounter Visit Diagnoses Diagnosis [...] 1,000 mg 1,000 mg, oral, Once, On Thu10/11/21 at 0645, For 1 dose, Pre-Op, Indications: Pre-Emptive AnalgesiaIndications:Pre-Emptive Analgesia Given 10/11/2021 6:33 AM CDT 1,000 mg acetaminophen (TYLENOL) tablet 1,000 mg 1,000 mg, oral, Every 6 hours scheduled, First dose on Thu10/11/21 at 1645, Indications: PainIndications:Pain Given 10/12/2021 9:50 AM CDT 1,000 mg Given 10/12/2021 2:36 AM CDT 1,000 mg Given 10/11/2021 10:00 PM CDT 1,000 mg albuterol HFA (PROVENTIL HFA,VENTOLIN HFA,PROAIR HFA) 90 mcg/actuation inhaler 2 puff 2 puff, inhalation, Every 6 hours PRN (news correspondent), wheezing, Starting on Thu10/11/21 at 1605 budesonide-formoteroL (SYMBICORT) 160-4.5 mcg/actuation inhaler 2 puff 2 puff, inhalation, 2 times daily (news correspondent), First dose (after last modification) on Thu10/11/21 at 2000, Rinse mouth with water after use. Do not swallow., I /authorizing provider attest that the patient meets the approved [facility] Use Criteria: Yes Given 10/12/2021 9:15 AM CDT 2 puffs Given 10/11/2021 8:27 PM CDT 2 puffs gabapentin (NEURONTIN) capsule 200 mg 200 mg, oral, Once, On Thu10/11/21 at 0645, For 1 dose, Pre-Op, Indications: Pre-Emptive AnalgesiaIndications:Pre-Emptive Analgesia Given 10/11/2021 6:33 AM CDT 2 00 mg HYDROmorphone (DILAUDID) injection 0.4 mg 0.4 mg, intravenous, Administer over 2 Minutes, Every 10 min PRN, 2nd line for pain, Starting on Thu10/11/21 at 1044, For 5 doses, Phase I, May administer 10 mintes after 1st dose of 1st line analgesic agent for uncontrolled or increasing pain. Revert to 1st line dose if POSS of 3. Notify Anesthesiologist if total PACU dose reaches 2 mg and pain score 5/10 or more., Indications: PainIndications:Pain Given 10/11/2021 12:26 PM CDT 0.4 mg Given 10/11/2021 11:25 AM CDT 0.4 mg Given 10/11/2021 11:05 AM CDT 0.4 mg ipratropium (ATROVENT) 42 mcg (0.06 %) nasal spray 2 spray 2 spray, each nostril, 2 times daily, First dose on Thu10/11/21 at 2100 Given 10/11/2021 10:01 PM CDT 2 sprays Lactated Ringer's (LR) infusion 30 mL/hr, intravenous, Continuous, Starting on Thu10/11/21 at 0645, Pre-Op, New Bag 10/11/2021 9:42 AM CDT 30 mL/ hr Rate/Dose Verify 10/11/2021 7:37 AM CDT 30 mL/h r New Bag 10/11/2021 6:36 AM CDT 30 mL/hr 30 mL/hr lidocaine in dextrose 5% 2 g/250 mL (8 mg/mL) infusion (premix) 1.5 mg/kg/hr ? 77.6 kg [place] weight (14.55 mL/hr), 8 mg/mL, intravenous, Continuous, [...] 8:15 AM CDT 2 mg/kg/hr 19.4 mL/hr oxyCODONE (ROXICODONE) tablet 10 mg 10 mg, oral, Every 4 hours PRN, 2nd line for pain, Give for pain scale 6/10 to 9/10, Starting on Thu10/11/21 at 1602, Indications: PainIndications:Pain Given 10/12/2021 1:02 PM CDT 10 mg oxyCODONE (ROXICODONE) tablet 5 mg 5 mg, oral, Every 4 hours PRN, 1st line for pain, Give for pain scale 1/10 to 5/10, Starting on Thu10/11/21 at 1602, Indications: PainIndications:Pain Given 10/11/2021 6:21 PM CDT 5 mg Given 10/11/2021 5:21 PM CDT 5 mg pregabalin (LYRICA) capsule 150 mg 150 mg, oral, 3 times daily, First dose on Thu10/11/21 at 1645 Given 10/11/2021 5:16 PM CDT 150 mg rOPINIRole (REQUIP) tablet 2 mg 2 mg, oral, Nightly, First dose on Thu10/11/21 at 2100 Given 10/11/2021 8:11 PM CDT 2 mg sodium chloride 0.9% flush 0.5-20 mL 0.5-20 mL, intra-catheter, Every 8 hours scheduled, First dose on Thu10/11/21 at 1645, Flush volume based on line type and size. , Indications: FlushingIndications:Flushing Given 10/12/2021 6:26 AM CDT 10 mL Given 10/11/2021 5:16 PM CDT 10 mL sodium chloride 0.9% with potassium chloride 20 mEq/L infusion (premix) 75 mL/hr, intravenous, Continuous, Starting on Thu10/11/21 at 1645, Discontinue when tolerating PO (500 mL in 8 hours). New Bag 10/11/2021 5:05 PM CDT 75 mL/hr 75 mL/hr valACYclovir (VALTREX) tablet 500 mg 500 mg, oral, Daily, First dose on Thu10/11/21 at 1645, Indications: Prophylaxis, MedicalIndications:Prophylaxis, Medical Given 10/12/2021 9:50 AM CDT 500 mg vancomycin 1500 mg/250 mL in sodium chloride 0.9% (premix) 1,500 mg 1,500 mg, intravenous, Administer over 90 Minutes, Once, On Thu10/11/21 at 0645, For 1 dose, Pre-Op, Administer within 120 minutes of incision., Indications: Prophylaxis, SurgicalIndications:Prophylaxis, Surgical New Bag 10/11/2021 6:36 AM CDT 1,500 mg vancomycin 1500 mg/250 mL in sodium chloride 0.9% (premix) 1,500 mg 1,500 mg, intravenous, Administer over 90 Minutes, Once, On Thu10/11/21 at 1830, For 1 dose, Administer 12 hours after pre-operative dose., Indications: Prophylaxis, SurgicalIndications:Prophylaxis, Surgical New Bag 10/11/2021 6:31 PM CDT 1,500 mg documented in this encounter Active and Recently Administered Medications Times are shown in CDT. Scheduled Medication Order 10/10/2021 10/11/2021 10/12/2021 acetaminophen (TYLENOL) tablet 1,000 mg (COMPLETED) 1,000 mg, oral, Once, On Thu10/11/21 at 0645, For 1 dose, Pre-Op, Indications: Pre-Emptive Analgesia 0633 (Given - Provider: Ursula Valle, ZEYNEP) acetaminophen (TYLENOL) tablet 1,000 mg 1,000 mg, oral, Every 6 hours scheduled, First dose on Thu10/11/21 at 1645, Indications: Pain 1716 (Given - Provider: Lacy Ramos RN)2200 (Given - Provider: Kan Escamilla) 0236 (Given - Provider: Kan Escamilla)0950 (Given - Provider: Cara Singer RN) budesonide-formoteroL (SYMBICORT) 160-4.5 mcg/actuation inhaler 2 puff 2 puff, inhalation, 2 times daily (news correspondent), First dose (after last modification) on Thu10/11/21 at 2000, Rinse mouth with water after use. Do not swallow., I /authorizing provider attest that the patient meets the approved [facility] Use Criteria: Yes 2026 (Given - Provider: Micaela Clay RRT) 914 (Given - Provider: Trinidad Christian RRT) fluticasone propionate (FLONASE) 50 mcg/actuation nasal spray 4 spray 4 spray, each nostril, Daily, First dose on Thu10/12/21 at 0900 0900 (Due) gabapentin (NEURONTIN) capsule 200 mg (COMPLETED) 200 mg, oral, Once, On Thu10/11/21 at 0645, For 1 dose, Pre-Op, Indications: Pre-Emptive Analgesia 0633 (Given - Provider: Ursula Valle, ZEYNEP) ipratropium (ATROVENT) 42 mcg (0.06 %) nasal spray 2 spray 2 spray, each nostril, 2 times daily, First dose on Thu10/11/21 at 2100 2200 (Given - Provider: Kan Escamilla) 0900 (Due) pregabalin (LYRICA) capsule 150 mg 150 mg, oral, 3 times daily, First dose on Thu10/11/21 at 1645 1716 (Given - Provider: Lacy Ramos RN)2201 (Not Given - Provider: Kan Escamilla - Reason: Patient/family refused) 0900 (Due) rOPINIRole (REQUIP) tablet 2 mg 2 mg, oral, Nightly, First dose on Thu10/11/21 at 2100 2010 (Given - Provider: Kan Escamilla) sodium chloride 0.9% flush 0.5-20 mL 0.5-20 mL, intra-catheter, Every 8 hours scheduled, First dose on Thu10/11/21 at 1645, Flush volume based on line type and size. , Indications: Flushing 171 (Given - Provider: Lacy Ramos RN)2201 (Not Given - Provider: Kan Escamilla - Reason: IV Infusing) 0626 (Given - Provider: Kan Escamilla) valACYclovir (VALTREX) tablet 500 mg 500 mg, oral, Daily, First dose on Thu10/11/21 at 1645, Indications: Prophylaxis, Medical 1705 (Not Given - Provider: Lacy Ramos RN - Reason: Patient/family refused) 0950 (Given - Provider: Cara Singer RN) vancomycin 1500 mg/250 mL in sodium chloride 0.9% (premix) 1,500 mg (COMPLETED) 1,500 mg, intravenous, Administer over 90 Minutes, Once, On Thu10/11/21 at 0645, For 1 dose, Pre-Op, Administer within 120 minutes of incision., Indications: Prophylaxis, Surgical 0636 (New Bag - Provider: Ursula Valle RN) vancomycin 1500 mg/250 mL in sodium chloride 0.9% (premix) 1,500 mg (COMPLETED) 1,500 mg, intravenous, Administer over 90 Minutes, Once, On Thu10/11/21 at 1830, For 1 dose, Administer 12 hours after pre-operative dose., Indications: Prophylaxis, Surgical 1831 (New Bag - Provider: Lacy Ramos RN) Continuous Medication Order 10/10/2021 10/11/2021 10/12/2021 Lactated Ringer's (LR) infusion 30 mL/hr, intravenous, Continuous, Starting on Thu10/11/21 at 0645, Pre-Op, 0636 (New Bag - Provider: Ursula Valle RN)0737 (Rate/Dose Verify - Provider: Tonya Bowers CRNA)0942 (New Bag - Provider: Tonya Bowers CRNA) 1723 (Due: Stopped) lidocaine in dextrose 5% 2 g/250 mL (8 mg/mL) infusion (premix) 1.5 mg/kg/hr ? 77.6 kg [place] weight (14.55 mL/hr), 8 mg/mL, intravenous, Continuous, [...] to the patient per post-op order set., Routine 0815 (New Bag - Provider: Tonya Bowers CRNA)1022 (Rate/Dose Change - Provider: Tonya Bowers CRNA)1107 (Continued from OR - Provider: Gayle Camargo RN) 0250 (Stopped - Provider: Kan Escamilla) sodium chloride 0.9% with potassium chloride 20 mEq/L infusion (premix) 75 mL/hr, intravenous, Continuous, Starting on Thu10/11/21 at 1645, Discontinue when tolerating PO (500 mL in 8 hours). 1705 (New Bag - Provider: Lacy Ramos RN) 1723 (Due: Stopped) PRN Medication Order 10/10/2021 10/11/2021 10/12/2021 albuterol HFA (PROVENTIL HFA,VENTOLIN HFA,PROAIR HFA) 90 mcg/actuation inhaler 2 puff 2 puff, inhalation, Every 6 hours PRN (news correspondent), wheezing, Starting on Thu10/11/21 at 1605 bisacodyL (DULCOLAX) suppository 10 mg 10 mg, rectal, Daily PRN, constipation, If no results 24 hours after polyethylene glycol (MIRALAX). May give bisacodyl tablet if tolerating PO., Starting on Thu10/11/21 at 1602, Indications: constipation bisacodyl EC (DULCOLAX EC) tablet 10 mg 10 mg, oral, Daily PRN, constipation, If no results 24 hours after polyethylene glycol (MIRALAX). May give bisacodyl supp if not tolerating PO), Starting on Thu10/11/21 at 1602, Do not crush, chew, cut, dissolve, open or otherwise manipulate tablet/capsule., Indications: constipation bupivacaine-EPINEPHrine (MARCAINE with EPI) 0.5 %-1:200,000 preservative free injection (CANCELED) As needed, Starting on Thu10/11/21 at 0959, Intra-Op 0959 (Given - Provider: Jayy Granger MD) Carrier Fluids for Secondary Infusion - 0.9% Sodium Chloride 30 mL, intravenous, As needed, For priming tubing and/or flushing, Starting on Thu10/11/21 at 1602, 0-250 ml/hr to flush line after IV infusions when no maintenance IV ordered. Infuse 30mL at the same rate as the secondary infusion. Run as primary IV, not intended for KVO. HYDROmorphone (DILAUDID) injection 0.4 mg (CANCELED) 0.4 mg, intravenous, Administer over 2 Minutes, Every 10 min PRN, 2nd line for pain, Starting on Thu10/11/21 at 1044, For 5 doses, Phase I, May administer 10 mintes after 1st dose of 1st line analgesic agent for uncontrolled or increasing pain. Revert to 1st line dose if POSS of 3. Notify Anesthesiologist if total PACU dose reaches 2 mg and pain score 5/10 or more., Indications: Pain 1105 (Given - Provider: Gayle Camargo RN)1125 (Given - Provider: Gayle Camargo RN)1226 (Given - Provider: Gayle Camargo RN) HYDROmorphone (DILAUDID) injection 0.5 mg 0.5 mg, intravenous, Administer over 2 Minutes, Every 3 hours PRN, 3rd line for pain, Starting on Thu10/11/21 at 1602, For 27 hours, Indications: Pain oxyCODONE (ROXICODONE) tablet 10 mg 10 mg, oral, Every 4 hours PRN, 2nd line for pain, Give for pain scale 6/10 to 9/10, Starting on Thu10/11/21 at 1602, Indications: Pain 1302 (Given - Provider: Cara Singer RN) oxyCODONE (ROXICODONE) tablet 5 mg 5 mg, oral, Every 4 hours PRN, 1st line for pain, Give for pain scale 1/10 to 5/10, Starting on Thu10/11/21 at 1602, Indications: Pain 1721 (Given - Provider: Keisha Calhoun RN)182 (Not Given - Provider: Lacy Ramos RN - Reason: Other - Comment: gave at 1820)1820 (Given - Provider: Lacy Ramos RN) polyethylene glycol (MIRALAX) packet 17 g 17 g, oral, Daily PRN, constipation, Starting on Thu10/11/21 at 1602, Indications: constipation promethazine (PHENERGAN) tablet 12.5 mg 12.5 mg, oral, Every 6 hours PRN, nausea, vomiting, Starting on Thu10/11/21 at 1602, Indications: Nausea and Vomiting sodium chloride 0.9% flush 0.5-20 mL 0.5-20 mL, intra-catheter, As needed, line care, Starting on Thu10/11/21 at 1602, Flush volume based on line type and size. Flush before and after each use. , Indications: Flushing sodium chloride 0.9% irrigation (CANCELED) As needed, Starting on Thu10/11/21 at 0828, Intra-Op 0828 (Given - Provider: Jayy Granger MD - Comment: prn on sterile field)0829 (Given - Provider: Jayy Granger MD - Comment: prn for aquamantys) thrombin-recombinant 5,000 unit topical solution (CANCELED) As needed, Starting on Thu10/11/21 at 0829, Intra-Op 0829 (Given - Provider: Jayy Granger MD - Comment: prn on gel foam) tiZANidine (ZANAFLEX) tablet 4 mg 4 mg, oral, Every 8 hours PRN, muscle spasms, Starting on Thu10/11/21 at 1602, Administer on an empty stomach documented in this encounter Orders Medications Ordered That Antione ht Not Have Been Administered Count Last Ordered Date First Ordered Date albuterol 2.5 mg /3 mL (0.08 3 %) nebulizer solution 2.5 mg 1 10/11/2021 albuterol HFA (PROVENTIL HFA ,VENTOLIN HFA,PROAIR HFA) 90 mcg/actuation inhaler 2 puff 2 10/11/2021 bisacodyL (DULCOLAX) suppository 10 mg 1 bisacodyl EC (DULCOLAX EC) tablet 10 mg 1 0 10/11/2021 budesonide-formoteroL (SYMBI JOHNNY) 160-4.5 mcg/actuation inhaler 2 puff 1 10/11/2021 bupivacaine-EPINEPHrine (MAR KADE with EPI) 0.5 %-1:200,000 preservative free injection 1 10/11/2021 Carrier Fluids for Secondary Infusion - 0.9% Sodium Chloride 2 10/11/2021 dextrose (D10W) 10% bolus 250 mL 1 10/12/19 diphenhydrAMINE (BENADRYL) i njection 12.5 mg 1 10/11/2021 fentaNYL (SUBLIMAZE) preserv ative free injection 25 mcg 1 10/11/2021 fluticasone propionate (FLON ASE) 50 mcg/actuation nasal spray 4 spray 1 10/11/2021 haloperidol (HALDOL) injection 1 mg 1 10/11 HYDROmorphone (DILAUDID) injection 0.2 mg 10/11/2021 HYDROmorphone (DILAUDID) injection 0.5 mg 10/11/2021 insulin lispro (HumaLOG, ADM ELOG) 100 unit/mL injection 1-5 Units 1 10/11/2021 labetaloL (NORMODYNE,TRANDAT E) injection 5 mg 1 10/11/2021 Lactated Ringer's (LR) infusion 1 2 lidocaine in dextrose 5% 2 g /250 mL (8 mg/mL) infusion (premix) 1 10/11/2021 lidocaine PF (XYLOCAINE) 10 mg/mL (1 %) preservative free injection 2-10 mg 1 10/11/2021 meperidine (DEMEROL) preserv ative free injection 12.5 mg 1 10/11/2021 naloxone (NARCAN) 0.4 mg/mL injection 0.04-0.4 mg 1 10/11/2021 ondansetron (ZOFRAN) injection 4 mg 1 10/11 oxyCODONE (ROXICODONE) tablet 5 mg 1 2021 polyethylene glycol (MIRALAX) packet 17 g 1 10/11/2021 promethazine (PHENERGAN) tablet 12.5 mg 1 0 10/11/2021 racepinephrine (ASTHMANEFRIN ) 2.25 % nebulizer solution 0.5 mL 1 10/11/2021 sodium chloride 0.9% flush 0.5-20 mL 3 09/27 sodium chloride 0.9% irrigation 1 thrombin-recombinant 5,000 u nit topical solution 1 10/11/2021 tiZANidine (ZANAFLEX) tablet 4 mg 1 022 Admission Count Last Ordered Date First Orde red Date INITIATE OUTPATIENT IN A BED 1 10/11/2021 Discharge Count Last Ordered Date First Orde red Date DISCHARGE PATIENT 1 10/12/2021 CORE MEASURES Count Last Ordered Date First Ord ered Date REASON FOR NO VTE PROPHYLAXI S - HOSPITAL ADMISSION - MEDICATIONS 1 10/11/2021 documented in this encounter Care Teams Talent Development Director Relationship Specialty Start Date End Date Anil Gupta MD [address] [place] [address] PCP - General Internal Medicine 04/19/21 Anil Gupta MD [address] [place] [address] Internal Medicine 04/19/21 documented as of this encounter
--- OUTSIDE RECORDS SUMMARY | 2024-03-19 07:31 | XMS_ITS | Encounter Summary ---
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 Gender Identity Male 05/23/2021 12:08 PM TIN ASSORTER Sexual Orientation Straight 05/23/2021 12 :08 PM TIN ASSORTER documented as of this encounter Last Filed Vital Signs Vital Sign Reading Time Taken Comments Blood Pressure 92/57 10/21/2021 11:40 AM CDT Pulse 55 10/21/2021 11:40 AM CDT Temperature 36.6 ??C (97.9 ??F) 10/21/2021 11:00 AM C DT Respiratory Rate - - Oxygen Saturation - - Inhaled Oxygen Concentration - - Weight - - Height - - Body Mass Index - - documented in this encounter Progress Notes * Lacy Kuhn RN - 10/21/2021 11:00 AM CDT RN PROGRESS NOTE - STAPLE REMOVAL & INCISION CHECK S/P L5-S1 TLIF - 10/11/21 Patient and here for staple removal and incision check. Patient appears well and no c/o of dizziness or lightheadedness while in office. Pt does appear slightly yellowish in color but states color appears normal overall. Pt reports c/o slight dizziness upon getting out of car but subsided per pt. Pt initial BP readings noted hypotension - pt talking and conversing normal. Pt did take tizanidine at 8am which he thought may be the issue. Pt also notes his BP fluctuates low at times but always bounces back . By end of visit pt BP had increased to within normal range. Gave instructions to monitor BP at home twice daily (does have home machine) and to contact Dr. Gupta if low BP persists or worsens - also encouraged increase in fluid intake. Pt also c/o possible re-occurrance of GI issues like he previously had with C- Diff. Instructed pt to contact his GI MD today to further discuss and to keep us informed of any medication additions. Patient doing well from surgery standpoint - up moving and walking without difficulty. Using LSO brace as ordered. Taking Tizanidine 1-2/day and Percocet 1-2/day as well. Denies fever or incision issues. Slight tenderness around incision. Kristopher dressing intact. Dressing removed - no active drainage noted - old dried drainage to incision and dressing. Slight to moderate swelling along incision line. Incision appears healing. Downey removed without difficulty. No redness or drainage - incision approximated. Steri strips applied. Reviewed skin care and add'l supplies given. Pt and verbalized understanding of all instructions and information. They will f/u as scheduled with xrays prior to appt. documented in this encounter Plan of Treatment Not on file documented as of this encounter Visit Diagnoses Not on filedocumented in this encounter Care Teams Movie Theater Manager Relationship Specialty Start Date End Date Anil Gupta MD [address] [place] [address] PCP - General Internal Medicine 04/19/21 Anil Gupta MD [address] [place] [address] Internal Medicine 04/19/21 documented as of this encounter
--- OUTSIDE RECORDS SUMMARY | 2024-03-19 07:31 | XMS_ITS | Encounter Summary ---
Author Organization [facility] Address [address] [place] [address] Care Team Providers Care Aerial Photograph Interpreter Name Role Phone Anil Gupta MD Primary Care Provider [phone] Anil Gupta MD Unavailable [phone] Reason for Visit * Reason Onset Date Comments Significant pain 06/20/2021 Encounter Details Date Type Department Care Team (Late st Contact Info) Description 06/20/2021 Telephone [facility] [place] [address] [facility] [address] [place] [address] Lacy Kuhn RN Significant pain Social History Tobacco Use Types Packs/Day [...] on file 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 Feels the pain is more intensethan preop. States pain is in right hip and into right leg and severe burning/poking pain to right outer calf area. Patient taking Ibuprofen 600mg hs and Tizanidine hs as well. Pt also reports swelling along incision line - approx 3/4-1 raised. States he is using ice regularly to incision. Denies fever, drainage or opening of incision. Patient to send pics through [facility] for further evaluation - discussed likely fluid build up and would absorb over time. Will start pt on Medrol Michael to see if this will help settle his nerve pain down. 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 Will see how the steroids work and if no improvement or worsening pain or swelling patient to call us back. Pt aware not to take Ibuprofen or Celebrex while taking steroid pack. Pt understood all information andinstructions for meds. documented in this encounter Plan of Treatment Not on file documented as of this encounter Visit Diagnoses Not on filedocumented in this encounter Care Teams Aerial Photograph Interpreter Relationship Specialty Start Date End Date Anil Gupta MD [address] [place] [address] PCP - General Internal Medicine 04/19/21 Anil Gupta MD [address] [place] [address] (work) Internal Medicine 04/19/21 documented as of this encounter
--- OUTSIDE RECORDS SUMMARY | 2024-03-19 07:31 | XMS_ITS | Encounter Summary ---
Author Organization [facility] Address [address] [facility] [address] [place] [address] Care Team Providers Care Production Machinist Name Role Phone Anil Gupta MD Primary Care Provider [phone] Anil Gupta MD Unavailable [phone] Reason for Visit * Reason Onset Date Comments Current Hospitalization 08/20/2021 Encounter Details Date Type Department Care Team (Late st Contact Info) Description 08/20/2021 Telephone [facility] [place] [address] [facility] [address] [place] [id number] Lacy Kuhn RN Current Hospitalization Social History Tobacco Use Types Packs/Day Years [...] on file 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 States he had colonoscopy and he is still dealing with ongoing colitis. Pt to be discharged on oral abx treatment for at least 10 days. GI MD also recommending holding off on any surgery for now until infection resolved. Discussed with patient that we will push surgery off for 4-6 weeks as previously discussed. If any evidence of ongoing infection in the interim pt to call us and we will cancel until completely cleared. Pt verbalized understanding and agreed to plan of care. Pt aware Melissa will contact him with new DOS. * Telephone Encounter - Lacy Kuhn RN - 08/20/2021 4:35 PM CDT Spoke with patient earlier today - states about 1 month ago he was dealing with stomach infection and was on 2 rounds of abx treatment. He then developed C-Diff as a result. He completed all meds about 1.5 weeks ago. Last evening the pt was dealing with fever, shaking, chills and cold sweats and went to [facility] and was admitted. States they did cultures and started him on IV abx treatment - states he is feeling much better today and was hoping to be discharged tomorrow. Further discussed situation with Dr. Granger as pt scheduled for surgery on 08/30. Per TJS - best interest for the patient to postpone surgery and hold off for about 4-6 weeks until all infection clears up. Discussed further with patient who understands but is discouraged. He is to have colonoscopy tomorrow and will speak to GI MD further at that time as well regarding further surgical plan. Pt to contact us again to discuss possible future date of surgery. Will hold off on moving surgery date until we hear from him further. * Telephone Encounter - Lacy Kuhn RN - 08/20/2021 9:29 AM CDT Rec'd message from pt on RN line that he is currently hospitalized at [facility] and therefore will not make it to appt today for SEC and office teaching. Pt states in message his colitis hasflared up and he will be hospitalized for a few days. He requested a call back to further discuss. LM for pt to call back when able. documented in this encounter Plan of Treatment Not on file documented as of this encounter Visit Diagnoses Not on filedocumented in this encounter Care Teams Production Machinist Relationship Specialty Start Date End Date Anil Gupta MD [address] [place] [address] PCP - General Internal Medicine 04/19/21 Anil Gupta MD [address] [place] [address] Internal Medicine 04/19/21 documented as of this encounter
--- OUTSIDE RECORDS SUMMARY | 2024-03-19 07:31 | XMS_ITS | Encounter Summary ---
Author Organization [facility] Address [address] [facility] [address] [place] [address] Care Team Providers Care Central Supply Supervisor Name Role Phone Anil Gupta MD Primary Care Provider [phone] Anil Gupta MD Unavailable [phone] Reason for Visit * Reason Onset Date Comments Surgery Planning 08/13/2021 Encounter Details Date Type Department Care Team (Late st Contact Info) Description 08/13/2021 Telephone [facility] [place] [address] [facility] [address] [place] [phone] Lacy Kuhn, piper helper Planning Social History Tobacco Use Types Packs/Day Years [...] file Legal Sex Male 12:56 PM SPORTS RECRUITER Gender Identity Male 05/23/2021 12:08 PM SPORTS RECRUITER Sexual Orientation Straight 05/23/2021 12 :08 PM SPORTS RECRUITER documented as of this encounter Miscellaneous Notes * Telephone Encounter - Lacy Kuhn RN - 08/13/2021 11:36 AM CDT Patient aware of surgery date of 08/30/21 for L5-S1 TLIF vs. PSF with Dr. Granger at [facility] [place]. Patient aware to arrive at 5:30am for surgery at 7:30am. Patient to have office teaching and SEC appointment on 08/20/21. Folder mailed. Imaging available via [employer] appt set for 09/10 with RN for staple removal. documented in this encounter Plan of Treatment Not on file documented as of this encounter Visit Diagnoses Diagnosis Lumbar stenosis without neurogenic claudication- Primary documented in this encounter Orders General Supply Count Last Ordered Date First Or dered Date LSO BRACE 1 08/13/2021 documented in this encounter Care Teams Central Supply Supervisor Relationship Specialty Start Date End Date Anil Gupat MD [address] [place] [address] PCP - General Internal Medicine 04/19/21 Anil Gupta MD [address] [place] [address] Internal Medicine 04/19/21 documented as of this encounter
--- OUTSIDE RECORDS SUMMARY | 2024-03-19 07:31 | XMS_ITS | Encounter Summary ---
Author Organization Formerly [facility] Address [address] [place] [address] Care Team Providers Care Train Operations Supervisor Name Role Phone Anil Gupta MD Primary Care Provider [phone] Anil Gupta MD Unavailable [phone] Reason for Visit * Auth/Cert Specialty Diagnoses / Procedures Referred By Contac t Referred To Contact Diagnoses Infection of lumbar spine (CMS/HCC) (HCC) Post Op Wound Infection/ Ortho Procedures n/a Referral ID Status Reason Start Date Expiration Date Visits Re quested Visits Authorized [id number] 1 1 Encounter Details Date Type Department Care Team (Late st Contact Info) Description 10/29/2021 5:30 PM CDT - 10/29/2021 7:15 PM CDT Surgery [facility] Operating Room [address] [place] [phone] [place] [address] [id number] INCISION AND DRAINAGE BACK WOUND Surgery Details Date/Time Status Location OR Service Patient Class Case Class Case Type Trauma Case? 10/29/2021 5:30 PM Posted [facility] OPERATING ROOM OR Orthopaedic Spine Inpatient Emergent Panel 1 Procedure LRB Anes Op Region Wound Class Comments INCISION AND DRAINAGE BACK WOUND N/A General Back Class III - Contaminated RQ 1700, SA Needed Surgeon Surgeon Role Service Panel Osmel Sheets MD Primary Orthopaedic Spine 1 documented in [...] How often do you attend chur or islam services? 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 - [id number] Document Creation Date: 11/06/2021 Admitting Provider, MD: Marin Phelan MD Discharge Provider, MD: Juliocesar Calix MD Primary Care Physician at Discharge: Anil Gupta MD [phone] Admission Date: 10/28/2021 Discharge Date/time: 11/06/2021 Admission Location: [facility] LOS - LOS: 9 days DETAILS [...] device, use of morselized autograft with bone caregivers non medical, bone marrow aspirate with left iliac crest [...] at the surgical site. ??He presented to [facility] for further evaluation.vAt [facility], his exam reportedly was notable for [...] Your Medications These medications were sent to [facility] - [facility] [place], [place] - [facility] [place] [id number] [facility] [id number] ?? oxyCODONE 5 mg immediate release tablet [...] Center 11/13/2021 11:00 AM Jayy Granger MD [id number] PSA 11/20/2021 11:00 AM Jayy Granger MD [id number] PSA Contact Information for Follow-ups [facility] Home Infusion [address] [place] [phone] Next Steps: Follow up Instructions: will supply antibiotic medication at discharge [facility] [address] [phone] Next Steps: Follow up Instructions: RN will see pt. at home for iv antibiotic administration, PICC line dressing changes and labwork ordered per . Kristine Young MD Specialty: Infectious Diseases, Internal Medicine Relationship: Consulting Physician [address] [place] [address] [facility] [address] Next Steps: Follow up Questions: To provider: KRISTINE YOUNG Please schedule an appointment with the following provider(s): [facility] Home Infusion [address] [place] [phone] Follow up will supply antibiotic medication at discharge [facility] [address] [place] [phone] Follow up RN will see pt. at home for iv antibiotic administration, PICC line dressing changes and labwork ordered per . Kristine Young MD [address] [address] ANCILLARY INFORMATION Other Procedures & Diagnostic Tests: ECG 12 lead Result Date: 10/29/2021 Vent Rate: 91 bpm RR Interval: 659 msec MN Interval: 188 msec QRS Duration: 137 msec QT Interval: 343 msec QTC Interval: 391 msec P-R-T [place]: 47 - -70 - 42 degrees SINUS RHYTHM LEFT AXIS DEVIATION RIGHT BUNDLE BRANCH BLOCK ABNORMAL ECG Electronically Signed By: Jessee Florence MD Recent Labs: Recent Labs Lab Units 11/05/2161511/04/21 0811/02/21 0656 WBC K/cumm 5.9 11.6* 6.1 HEMOGLOBIN g/dL 8.0* 8.9* 10.3* HEMATOCRIT % 24.6* 26.9* 31.4* PLATELETS K/cumm 419* 486* 418* Recent Labs Lab Units 11/05/2161511/04/21 0811/02/21 0656 10/31/21 0500 WBC K/cumm 5.9 11.6* 6.1 5.0 HEMOGLOBIN g/dL 8.0* 8.9* 10.3* 8.9* HEMATOCRIT % 24.6* 26.9* 31.4* 28.1* PLATELETS K/cumm 419* 486* 418* 323 NEUTROS PCT % 64.3 78.3 74.6 72.4 LYMPHS PCT % 32.2 13.8 13.7 14.5 MONOS PCT % 3.5 7.1 11.2 12.1 EOS PCT % -- 0.0 0.0 0.0 Recent Labs Lab Units 11/05/2161511/04/2179911/02/21201611/02/21 0656 SODIUM mmol/L 133* 129* -- 131* POTASSIUM PLASMA mmol/L 4.9 4.5 -- 4.4 CHLORIDE mmol/L 99 96* -- 96* CO2 mmol/L 25 26 -- 29 BUN SERUM mg/dL 14 13 -- 9 CREATININE mg/dL 0.92 0.76* -- 0.90 [id number] mL/min/1.73 m2 89 97 -- 92 GLUCOSE [...] 11/04/2021 GLUCOSE 86 11/03/2021 Implant: Implants Implant Tindie Allograft Bone Putty 2.5cc 700-025 - [id number] - Implanted Spine Lumbar Inventory item: [employer] ALLOGRAFT BONE PUTTY 2.5CC 700-025 Model/Cat number: [id number] Hat Designer: Tindie Lot number: [id number] Device identifier: [id number] Device identifier type: GS1 As of 10/11/2021 Status: Implanted [employer] Inqu Paste Mix Plus Assistant Guest Services Manager 10cc Bone Graft Hyaluronic Acid Poly [id number] - [id number] - Implanted Spine Lumbar Inventory item: enVerid Inqu Paste Mix Plus Assistant Guest Services Manager 10cc Bone Graft Hyaluronic Acid Poly [id number] Model/Cat number: [id number] Hat Designer: Mems-ID As of 10/11/2021 Status: Implanted Core Link Foundation L31 Mm X W10 Mm X H11 Mm 3d 12 D Curve Cage Spinal [id number] - [id number] -Implanted Spine Lumbar Inventory item: CORE LINK Foundation L31 Mm X W10 Mm X H11 Mm 3d 12 D Curve Cage Spinal [id number] Model/Cat number: [id number] Hat Designer: Core Link Lot number: [id number] Device identifier: [id number] Device identifier type: HIBC As of 10/11/2021 Status: Implanted Core Link [place] 6.5mm 45mm Spine Pedicle Screw Bone 5500 Series [id number] - [id number] - Implanted Spine Lumbar Inventory item: CORE LINK [place] 6.5mm 45mm Spine Pedicle Screw Bone 5500 Series [id number] Model/Cat number: [id number] Hat Designer: Core Link As of 10/11/2021 Status: Implanted Core Link [place] Screw Set 5500 Series 61528-73 - [id number] - Implanted Spine Lumbar Inventory item: CORE LINK [place] Screw Set 5500 Series [id number] Model/Cat number: [id number] Hat Designer: Core Link As of 10/11/2021 Status: Implanted Core Link [place] 5.5mm 40mm Line Prebent Nabor Spinal Nonsterile 5500 Series R5510- [id number] - [id number] - Implanted Spine Lumbar Inventory item: CORE LINK [place] 5.5mm 40mm Line Prebent Nabor Spinal Nonsterile 5500 Series [id number]/Cat number: [id number] Hat Designer: Core Link As of 10/11/2021 Status: Implanted General Precautions (If Blank, None Found): Isolation Status: No active isolations Nutritional Status and in-house recommendations: Dietary Orders (From admission, onward) Start Ordered 11/04/21 1300 Oral Nutrition Supplements Select Supplement: Ensure - [place], Ensure - Any Flavor 3 times daily and at bedtime Question Answer Comment Select Supplement: Ensure - [place] Select Supplement: Ensure - Any Flavor 11/04/21 1017 11/03/21 1124 Adult Diet Regular Diet effective now Question: ([facility]) Diet type Answer: Regular 11/03/21 [...] Protein / High Calorie Diet (General Information) (Afghan) * Wound Healing and Your Diet (General Information) (Afghan) documented in this encounter Medications at Time [...] by mouth daily 03/17/2018 3 nebulizer accessories [facility] See Instructions, 1 each, 1 each, Route to Pharmacy Electronically, [facility]/pharmacy #[id number], [id number] [phone], Instructions Replace Required Details, Supply 12/12/2019 [...] in this encounter Progress Notes * Kristine oYung MD - 11/06/2021 8:21 AM CDT Infectious [...] Discussed with pharmacy ID service as well. [facility] has nursing available. Orders written and faxed. [...] 419* 486* 418* Recent Labs Lab Units 11/05/2116 11/04/21 0811/02/21201611/02/21 0656 SODIUM mmol/L 133* 129* -- 131* POTASSIUM PLASMA mmol/L 4.9 4.5 -- 4.4 CHLORIDE mmol/L 99 96* -- 96* CO2 mmol/L 25 26 -- 29 BUN SERUM mg/dL 14 13 -- 9 CREATININE mg/dL 0.92 0.76* -- 0.90 [id number] mL/min/1.73 m2 89 97 -- 92 GLUCOSE [...] device, use of morselized autograft with bone caregivers non medical, bone marrow aspirate with left iliac crest [...] moreat the surgical site. He presented to [facility] for further evaluation.vAt [facility], his exam reportedly was notable for [...] risk: Moderate Dispo: Pt is accepted to [facility] Home Health Infusion, anticipated DC on 11/06 and Start [facility] infusion athome on 11/07/2021 * Kristine Young MD - 11/05/2021 11:32 AM CDT Infectious Disease Progress Note PATIENT NAME: Douglas Horn : 1950 ADMISSION DATE: 10/28/2021 HOSPITAL COURSE: T-max 36.7 T-cur 36.4 WBC 5,900 Hgb 8.9 Drains removed this am. Wound vac remains. Eager to get home. [facility] can provide nursing now on . I ordered PICC and messaged with NANCIE'jeffy. Spoke with case management. Serratia susceptibilities same [...] 9 CREATININE mg/dL 0.92 0.76* -- 0.90 ZSV-[id number]-[id number] mL/min/1.73 m2 89 97 -- 92 GLUCOSE [...] respiratory infection comes and goes - on exterminator termite antibiotics to prevent further mucous build up [...] Output by Drain (mL) 11/03/21699 - 11/03/21185811/03/21 1900 - 11/04/21 0659 11/04/21699 - 11/04/21 1859 11/04/21 1900 - 11/05/21 0659 11/05/21 07 - [...] 10/02/2021 COVID-19 Lab Results Component Value Date [id number] Not Detected 05/30/2021 Lab Results Component Value [...] Component Value Units Date/Time ECG 12 lead [[id number]] Collected: 10/29/2143 Order Status: Completed Updated: 10/29/21731 Narrative: Vent Rate: 91 bpm RR Interval: 659 msec MN Interval: 188 msec QRS Duration: 137 msec QT Interval: 343 msec QTC Interval: 391 msec P-R-T [place]: 47 - -70 - 42 degrees SINUS [...] the patient and Dr. Garcia. NANCIE Barth-C [facility] [phone] * Edwige Nassar, PT - 11/04/2021 11:14 [...] 0.76* -- 0.90 0.89 < > 0.89 [id number] mL/min/1.73 m2 97 -- 92 92 < [...] Young MD 5:03 PM 11/04/2021 * Selene Perrin RD - 11/03/2021 1:50 PM CDT Initial Nutrition Assessment Reason for Assessment: Initial Nutrition Assessment and Consult/Referral Encounter Date: 11/03/21 2:00 PM Nutrition Evaluation: Patient is a 71 y.o. male. Admit Dx: Infection of lumbar spine ([facility]) ([facility]) [M46.26]. Admitted on 10/28/2021, current LOS [...] depth pinch but not ample Muscle Loss [place] - Temporalis Muscle: Slight depression Clavicle [...] respiratory infection comes and goes - on exterminator termite antibiotics to prevent further mucous build up [...] Oral Nutrition Supplements Select Supplement: Ensure - [place] 2 times daily Question: Select Supplement: Answer: Ensure - [place] 11/03/21 1348 11/03/211123 Adult Diet Regular Diet effective now Question: ([facility]) Diet type Answer: Regular 11/03/21 [...] neurogenic claudication Infection of lumbar spine (CMS/HCC) ([facility]) Infection following a procedure, deep incisional surgical site, initial encounter History of Clostridium difficile colitis GERD without esophagitis Hyponatremia SIADH (syndrome of inappropriate ADH production) (CMS/HCC) ([facility]) Serratia marcescens bacteremia Post op lumbar [...] mg/dL -- -- 0.90 0.89 0.81 0.89 [id number] mL/min/1.73 m2 -- -- 92 92 95 [...] occupational therapy. Milad Garcia M.D. [facility] This document was created using speech voice [...] and D. Milad Garcia M.D. [facility] This document was created using speech voice [...] or wound vac if needed. Will notify [facility] of delay in discharge. INTERIM HISTORY: Prior [...] 10 CREATININE mg/dL 0.90 0.89 0.81 0.89 [id number]-[id number] mL/min/1.73 m2 92 92 95 92 GLUCOSE [...] tomorrow morning. Milad Garcia M.D. [facility] This document was created using speech voice [...] neurogenic claudication Infection of lumbar spine (CMS/HCC) ([facility]) Infection following a procedure, deep incisional surgical site, initial encounter History of Clostridium difficile colitis GERD without esophagitis Hyponatremia SIADH (syndrome of inappropriate ADH production) (CMS/HCC) ([facility]) Serratia marcescens bacteremia Post op lumbar [...] maintaining spinal precautions with unilateral UE support [facility] Activity Tolerance Endurance Endurance does not limit participation in activity Activity Tolerance Comments Pre activity vitals: 100% on RA, 79 bpm, 99/60. VSS throughout session. Other Comments Comments Pt reviewed all spinal precautions in relation with ADL and IADLs thi sdate. Pt demonstrated/verbalized understanding this date. No further skilled OT services are recommended due to pt at [facility] ADLs. Pt in bed to [...] on Thursday. Milad Garcia M.D. [facility] This document was created using speech voice [...] Dr. Garcia visited this am. Spoke with [facility] and nursing available Colleen with possible discharge Thursday. 10/31/2021 Up in his room with PT and OT this am. Minimal output form lumbar drain. Dressing changed and discussed with nursing. Photo taken on his phone. Blood and wound cultures with Serratia Ceftriaxone FLY is actually < 0.25. Discussed with Micro.Penicillins resistant. Spoke with [facility] and have obtained outpatient nursing for Thursday [...] 10 10 CREATININE mg/dL 0.89 0.81 0.89 [id number]-[id number] mL/min/1.73 m2 92 95 92 GLUCOSE mg/dL [...] Maintain on once daily Vancomycin PO. 3. [facility] can provide nursing on Thursday. 4. PICC [...] Medical complexity / risk: moderate * Rashmi Zhao, CARE MANAGER CNA - 10/31/2021 11:20 AM CDT Physical Therapy [...] 0.25. Discussed with Micro.Penicillins resistant. Spoke with [facility] and have obtained outpatient nursing for Thursday [...] 10 10 CREATININE mg/dL 0.89 0.81 0.89 NVK-OYR-[id number] mL/min/1.73 m2 92 95 92 GLUCOSE mg/dL [...] Maintain on once daily Vancomycin PO. 3. [facility] can provide nursing on Thursday. 4. PICC line at discharge. 5. Patient with many questions. Time spent: 36 minutes. Kristine Young MD 8:01 PM 10/31/2021 * Bernarda Childs, DIESEL AUTOMOTIVE TECHNICIAN - 10/30/2021 4:00 PM CDT Daily Progress [...] device for steadying LE Dressing: Equipment Utilized Mutton Puncher Pain Assessment Pain Assessment 0-10 Pain Score [...] IV cefepime and vanco. Blood cx from [facility] positive for GN bacteria. Data Vitals: [...] Assessment and plan Principal Problem: Severe sepsis ([facility]) Active Problems: Lumbar stenosis without neurogenic claudication Infection of lumbar spine (CMS/[facility]) ([facility]) Infection following a procedure, deep incisional surgical site, initial encounter History of Clostridium difficile colitis GERD without esophagitis Hyponatremia SIADH (syndrome of inappropriate ADH production) (CMS/HCC) ([facility]) Severe sepsis Post op lumbar spine [...] mg/dL 10 10 CREATININE mg/dL 0.81 0.89 [id number] mL/min/1.73 m2 95 92 GLUCOSE mg/dL 124 [...] line at discharge. 5. Will speak with [facility]. Time spent: 44 minutes. Kristine Young MD 3:08 PM 10/30/2021 * La Trimble, PT - 10/29/2021 4:04 PM CDT Physical Therapy Evaluation 10/29/21 5829 General Chart Reviewed Yes Session Type Evaluation PT Received On 10/29/21 Safe Environment Arm Band Checked;Call Light within Reach Subjective Agreeable to Therapy Additional Pertinent History Pt admitted from [facility] w/ severe sepsis from spinal infection. [...] Home Mobility Equipment None Home ADL Equipment Mutton Puncher;Sock aid;Long-handled shoehorn Prior Function Level of [place] Independent with ADLs;Independent functional transfers;Independent with homemaking [...] presents with fever and back pain. At [facility], his exam reportedly was notable for [...] Granger was contacted he is currently in [place]. Dr. Sheets was contacted via the transfer center and agreed with transfer to [facility]. He reports he had his stitches removed [...] device, use of morselized autograft with bone caregivers non medical, bone marrow aspirate with left iliac crest [...] Mobility Equipment (WALKING STICK) Home ADL Equipment Mutton Puncher;Sock aid;Long-handled shoehorn Additional Comments Pt states that he does not use AE for mobiltiy. Pt states that he uses AE for LB dresing Prior Function Level of [place] Independent with ADLs;Independent functional transfers;Independent with ambulation [...] precautions 10/29/21 11/05/21 -- * Robby Alcantar [facility] - 10/29/2021 12:15 AM CDT Pharmacokinetic Consult [...] device, use of morselized autograft with bone caregivers non medical, bone marrow aspirate with left iliac crest through a separate incision with Dr. Granger on 10/11/2021 presents with fever back pain. 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 Patient reports he was in his [...] the past. He reached out to his materials scheduler's office and did notget a hold of [...] at the surgical site. He presented to [facility] for further evaluation. At [facility], his exam reportedly was notable for [...] Granger was contacted he is currently in [place]. Dr. Sheets was contacted via the transfer center and agreed with transfer to [facility] with hospitalist and Infectious Diseases support. 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 He confirmed full code. His would make [...] respiratory infection comes and goes - on fpc antibiotics to prevent further mucous build up [...] nursing notes reviewed Lab/Radiology/Diagnostic Review: Labs from [facility] dated 10/28/2021 White blood count 14.8 Hemoglobin 11.5 Hematocrit 35.6 Platelet count 354 Sodium 128 Potassium 4.5 Chloride 94 Bicarb 24 BUN 14 Creatinine 1 Glucose 90 Lactic acid 1 SARS-CoV-2 RNA RT PCR negative Imaging personally reviewed: Chest x-ray dated 10/28/2021 shows stable chronic interstitial lung disease Cardiac studies personally reviewed: EKG ordered Assessment/Plan Principal Problem: Severe sepsis ([facility]) Active Problems: Lumbar stenosis without neurogenic claudication Infection of lumbar spine ([facility]) ([facility]) Infection following a procedure, deep incisional surgical site, initial encounter History of Clostridium difficile colitis GERD without esophagitis Hyponatremia SIADH (syndrome of inappropriate ADH production) ([facility]) ([facility]) Suspected severe sepsis (WBC>12, HR>90, reported fever, initial hypotension) from surgical site infection, POA to [facility]. Ongoing, HR>90 on arrival. Suspected organisms include Staph, Strep. At risk for MRSA with recent surgery, Severe low back pain at surgical site Lumbar radiculopathy status post posterior lumbar decompression and spinal fusion Patient reportedly bolused 3.3 L normal saline Check lactate, blood cultures Start vancomycin for suspected cellulitis at surgical site. Pus reportedly expressed at [facility] Continue home Lyrica 300 mg b.i.d. Pain control with Tylenol, oxycodone, morphine Ortho spine c/s - sent Dr. Sheets a message ID c/s - Dr. Young reportedly called prior to transfer Hyponatremia Na 128 at [facility]. Prior urine studies consistent with SIADH as per his navy airspace officer Dr. Noel. TSH wnl. Cortisol 11. Urine osm 349, serum osm 283 on 09/16/2021 on review of records from [facility] He was given NS 3.3 L in [...] PA Authorized by: Abdon Nava Jr., PA Monette Protocol: RN Notified of Procedure: yes Informed consent: Risks, benefits, alternatives discussed and patient/business representative/guardian agrees and accepts Patient's stated name/ [...] and matched to patient identification: n/a Responsible constitution party for transporting specimen(s) to lab determined: n/a [...] that nature. He was initially presented to [facility], was found to have an elevated [...] to be septic. Job ID/Internal Job ID: [id number] * Kristine Young MD - 10/29/2021 12:00 [...] originally from [place] and now living in [place], [place]. 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 [...] mention of antibiotic treatment.The surgeons here at [facility] were contacted and transfer approved. Mr. Horn [...] States he was followed by physicians at [facility] 4-5 years ago with a Pseudomonas [...] would break down old batteries to retrieve lead.He would help in his family's garage back in [place]. Has undergone ablation therapy with EDTA. Ibelieve he has undergone 8 cycles with 6 [...] Mr. Horn and his are residents of [place], [place]. This is each their 2nd marriage. Hehas 2 children by his 1st and she 1, all adults now. 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 His is from the [facility]. He has dual citizenship. Mr. Horn smoked [...] for Dr. Granger. Job ID/Internal Job ID: [id number] documented in this encounter Miscellaneous Notes * Plan of Care - Opal Cooper RN - 11/06/2021 1:42 PM CDT DISPO:Home with infusion and RN-[facility]. * Plan of Care - Mihaela Nails [...] CM note-received message this am from [facility]. Will be seen by [facility] RN on 11/07 for home iv antibiotic-Ceftriaxone OD to be administered, [facility] infusion will deliver antibiotic medication to pt's [...] with scheduled tylenol, drains dc'd thisam by LANDSCAPE ARTIST, pt had a shower this afternoon, tolerating regular diet, orders received for PICC this evening, iv antibiotics given as ordered, plan for DC tomorrow with picc for iv antibiotics at home, vss. * Plan of Care - Robyn Figueroa - 11/05/2021 12:37 PM CDT Correction: Patient has been accepted to [facility] Home [facility] Infusion. Patient's anticipated DC is 8/10 and is scheduled to be seen by SN on 11/07/2021 * Plan of Care - Robyn Figueroa - 11/05/2021 10:22 AM CDT Patient has been accepted to [facility]fusion. Patient's anticipated DC is 8/10 and is scheduled to be seen by SN on 10/28/2021 * Plan of Care - Robyn Figueroa - 11/05/2021 9:00 AM CDT [facility]fusion consult received. [facility] Home Care Agency accepted patient with projected [...] Information Management * Plan of Care - Veronica, Kitty ZEYNEP Felix - 11/04/2021 3:17 AM CDT [...] entire procedure. Milad Garcia M.D. [facility] Date: 11/03/2021 Time: 10:21 AM This document [...] without infection will improve 10/31/2021 1258 by Douglsa Taylor [...] Osmel Sheets MD - Primary Anesthesiologist: Zachary Acveedo MD; Kitty Campa MD DETECTIVE [employer]: Gretchen Watson CRNA Conservation Officer: Jodie Amaya RN Conservation Officer Relief: Ursula Collier RN Scrub: Cynthia Wynn [...] AM, surgical incision had scant drainage - staff anesthetist unable to visualize drainage at the time. IVF continued with NPO status. Surgi reyes bath complete - off to floor around 1645 to OR for surgical procedure. Safety maintained duringshift. * Plan of Care - Opal Cooper RN - 10/29/2021 12:31 PM CDT CM Initial Assessment Interview Note Information Obtained From: Patient (10/29/211227) Admission Source: OSH transfer Impression: Infected lumbar wound Plan Includes: Pt. Wishes to return home with spouse at discharge. Primary Source of Transportation: [place]ambi Does the patient need discharge transport arranged?: No (10/29/21 1230) Health Insurance Coverage: Medicare/[employer] Contin[employer] Prescription Coverage: yes Pharmacy: [address] Primary Care Provider: Anil Gupta MD [...] Family: Three times a week ??? Attends [employer]: 1 to 4 times per year [...] Never Potential discharge needs include: Home Health: [facility], IV therapy (10/29/211227) Dialysis: no Behavioral Health [...] x3 steps to enter into their home. 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 With his adl's and ambulation, no DME at home except for a walking stick. Plan is for surgery today-wound exploration and drainage, will await C/S results, pt. Likely will need iv antibiotics at discharge. Referral sent to [facility] infusion [facility], will cont. to follow pt's progress [...] Collaboration with patient, MD, direct care nurse, Managed Care Director, Nurse Coordinator and other members of the health care team to assure needed interventions completed. 2. Return patient to optimal level of self-care post discharge. 3. Commercial Shrimping Captain will follow for Discharge Planning - interventions [...] status post lumbar fusion L5-S1. SURGEON Kortney. PAYROLL HUMAN RESOURCES ASSISTANT Bernarda Childs. EBL 100 mL. INTRAOPERATIVE COMPLICATIONS [...] AF[employer] and fungus. Job ID/Internal Job ID: [id number] documented in this encounter Plan of Treatment Not on file documented as of this encounter Procedures Procedure Name Priority Date/Time Associated Diagnosis Comments XR CHEST 1 VIEW ED Urgent/IP Urgent 11/05/2021 6:11 PM CDT MN INSJ NON-TUNNELED CENTRAL VENOUS CATH AGE 6 [...] GRAM STAIN Routine 11/03/2021 8:59 AM CDT POCT GLUCOSE DEVICE Routine 11/03/2021 5 :42 [...] IMG XR PROCEDUR ES Final Result * MN INSJ NON-TUNNELED CENTRAL VENOUS CATH AGE 6 YR/> (11/05/2021 5:40 PM CDT) Narrative Abdon Nava Jr., PA - 11/05/2021 5:40 PM CDT Abdon Nava Jr., PA ? 11/05/2021 ??5:41 PM PICC Line Insertion Date/Time: 11/05/2021 5:40 PM Performed by: Abdon Nava Jr., PA Authorized by: Abdon Nava Jr., PA Monette Protocol: RN Notified of Procedure: yes ?? Informed consent: ??Risks, benefits, alternatives discussed and patient/business representative/guardian agrees and accepts Patient's stated name/ [...] matched to patient identification: n/a ?? Responsible constitution party for transporting specimen(s) to lab determined: n/a ?? us NANCIE Vidal Jr. [facility] DE ORDERABLES Final Result * eGFR (11/05/2021 6:16 AM CDT) eGFR 89 mL/min/1. 73 m2 [facility] Comment: Interpretive Data Reference Interval Normal [...] MD LAB BLOOD ORDERABLES Final Re sult [facility] [address] Department [place] [address] * (ABNORMAL) Manual Differential (11/05/2021 6:16 AM CDT) [facility] Differential Manual [facility] Cells Counted 115 [facility] Neutrophil abs 3.8 1.7 - 6.5 K/cumm [facility] Imm gran abs 0.0 0.0 - 0.1 K/cumm [facility] Lymphocyte abs 1.9 0.8 - 3.3 K/cumm [facility] Monocyte abs 0.2 0.2 - 0.8 K/cumm [facility] Neutrophil pct 64.3 % [facility] Comment: Interpretive Data Percent cell count reference ranges are not reported, since discordance with absolute values may lead to misinterpretation of CBC data. Current Interpretive Data was last revised on 2017. Lymphocyte pct 32.2 % [facility] Comment: Interpretive Data Percent cell count reference ranges are not reported, since discordance with absolute values may lead to misinterpretation of CBC data. Current Interpretive Data was last revised on 2017. Monocyte pct 3.5 % [facility] Comment: Interpretive Data Percent cell count reference ranges are not reported, since discordance with absolute values may lead to misinterpretation of CBC data. Current Interpretive Data was last revised on 2017. RBC morphology Present(A) [facility] Hypochromasia 3-7/HPF(A) [facility] Anisocytosis Slight(A) [facility] Blood 11/05/2021 6:16 AM CDT 11/05/2021 6:28 AM CDT us Kristine Young MD LAB BLOOD ORDERABLES Final Re sult [facility] [address] [place] [address] * (ABNORMAL) Renal function panel (11/05/2021 6:16 AM CDT) Sodium 133(L) 135 - 145 mmol/L [facility] Potassium, pl 4.9 3.3 - 4.9 mmol/L [facility] Chloride 99 97 - 110 mmol/L [facility] CO2 25 22 - 32 mmol/L [facility] Anion gap 9 2 - 15 mmol/L [facility] BUN 14 8 - 25 mg/dL [facility] Creatinine 0.92 0.80 - 1.30 mg/dL [facility] Glucose 96 70 - 199 mg/dL [facility] Comment: Interpretive Data Fasting glucose >/= [...] 2017. Calcium 8.7 8.5 - 10.3 mg/dL [facility] Phosphorus, pl 2.7 2.3 - 4.5 mg/dL [facility] Albumin 3.0(L) 3.5 - 5.0 g/dL [facility] Blood 11/05/2021 6:16 AM CDT 11/05/2021 6:28 AM CDT us Kristine Young MD LAB BLOOD ORDERABLES Final Re sult [facility] [address] [place] [address] * (ABNORMAL) CBC with auto differential (11/05/2021 6:16 AM CDT) WBC 5.9 3.8 - 9.9 K/cumm [facility] Hgb 8.0(L) 13.0 - 17.5 g/dL [facility] Hct 24.6(L) 38.9 - 50.3 % [facility] Plt 419(H) 150 - 400 K/cumm [facility] MPV 8.2(L) 9.1 - 12.3 fL [facility] RBC 2.77(L) 4.30 - 5.80 M/cumm [facility] MCV 88.8 81.3 - 96.4 fL [facility] MCH 28.9 27.1 - 33.3 pg [facility] MCHC 32.5 32.3 - 35.7 g/dL [facility] RDW CV 13.0 11.1 - 14.9 % [facility] RDW SD 42.6 35.7 - 48.1 fL [facility] NRBC abs 0.00 0.00 - 0.01 K/cumm [facility] Blood 11/05/2021 6:16 AM CDT 11/05/2021 6:28 AM CDT us Kristine Young MD LAB BLOOD ORDERABLES Final Re sult [facility] [address] Department [place] [address] * eGFR (11/04/2021 8:00 AM CDT) eGFR 97 mL/min/1. 73 m2 [facility] Comment: Interpretive Data Reference Interval Normal [...] MD LAB BLOOD ORDERABLES Final Resu lt [facility] [address] Department [place] [address] * (ABNORMAL) Differential, auto (11/04/2021 8:00 AM CDT) Neutrophil abs 9.1(H) 1.7 - 6.5 K/cumm [facility] Imm gran abs 0.1 0.0 - 0.1 K/cumm [facility] Lymphocyte abs 1.6 0.8 - 3.3 K/cumm [facility] Monocyte abs 0.8 0.2 - 0.8 K/cumm [facility] Eosinophil abs 0.0 0.0 - 0.5 K/cumm [facility] Basophil abs 0.0 0.0 - 0.1 K/cumm [facility] Neutrophil pct 78.3 % [facility] Comment: Interpretive Data Percent cell count reference ranges are not reported, since discordance with absolute values may lead to misinterpretation of CBC data. Current Interpretive Data was last revised on 2017. Imm gran pct 0.7 % [facility] Comment: Interpretive Data Percent cell count reference ranges are not reported, since discordance with absolute values may lead to misinterpretation of CBC data. Current Interpretive Data was last revised on 2017. Lymphocyte pct 13.8 % [facility] Comment: Interpretive Data Percent cell count reference ranges are not reported, since discordance with absolute values may lead to misinterpretation of CBC data. Current Interpretive Data was last revised on 2017. Monocyte pct 7.1 % [facility] Comment: Interpretive Data Percent cell count reference ranges are not reported, since discordance with absolute values may lead to misinterpretation of CBC data. Current Interpretive Data was last revised on 2017. Eosinophil pct 0.0 % [facility] Comment: Interpretive Data Percent cell count reference ranges are not reported, since discordance with absolute values may lead to misinterpretation of CBC data. Current Interpretive Data was last revised on 2017. Basophil pct 0.1 % [facility] Comment: Interpretive Data Percent cell count reference ranges are not reported, since discordance with absolute values may lead to misinterpretation of CBC data. Current Interpretive Data was last revised on 2017. Blood 11/04/2021 8:00 AM CDT 11/04/2021 8:24 AM CDT us Juliocesar Calix MD LAB BLOOD ORDERABLES Final Resu lt Performing Organization Address City/[facility] Co de Phone Number [facility] [address] Department [place] [address] * (ABNORMAL) Basic metabolic panel (11/04/2021 8:00 AM CDT) Sodium 129(L) 135 - 145 mmol/L [facility] Potassium, pl 4.5 3.3 - 4.9 mmol/L [facility] Chloride 96(L) 97 - 110 mmol/L [facility] CO2 26 22 - 32 mmol/L [facility] Anion gap 7 2 - 15 mmol/L [facility] BUN 13 8 - 25 mg/dL [facility] Creatinine 0.76(L) 0.80 - 1.30 mg/dL [facility] Glucose 106 70 - 199 mg/dL [facility] Comment: Interpretive Data Fasting glucose >/= [...] 2017. Calcium 8.5 8.5 - 10.3 mg/dL [facility] Blood 11/04/2021 8:00 AM CDT 11/04/2021 8:24 AM CDT Milad Garcia MD LAB BLOOD ORDERABLES Fi nal Result Performing Organization Address City/[facility] de Phone Number [facility] [address] [place] [address] * (ABNORMAL) CBC with auto differential (11/04/2021 8:00 AM CDT) WBC 11.6(H) 3.8 - 9.9 K/cumm [facility] Hgb 8.9(L) 13.0 - 17.5 g/dL [facility] Hct 26.9(L) 38.9 - 50.3 % [facility] Plt 486(H) 150 - 400 K/cumm [facility] MPV 8.4(L) 9.1 - 12.3 fL [facility] RBC 3.04(L) 4.30 - 5.80 M/cumm [facility] MCV 88.5 81.3 - 96.4 fL [facility] MCH 29.3 27.1 - 33.3 pg [facility] MCHC 33.1 32.3 - 35.7 g/dL [facility] RDW CV 13.0 11.1 - 14.9 % [facility] RDW SD 41.7 35.7 - 48.1 fL [facility] NRBC abs 0.00 0.00 - 0.01 K/cumm [facility] Blood 11/04/2021 8:00 AM CDT 11/04/2021 8:24 AM CDT Milad Garcia MD LAB BLOOD ORDERABLES Fi nal Result Performing Organization Address [facility] Co de Phone Number [facility] [address] [place] [address] * Mycobacteriology (AFB) culture and acid-fast stain Wound Back (11/03/2021 8:59 AM CDT) Direct Specimen Exam Stain: Concentrated smear: No Acid Fast Bacillus Seen [facility] Report Final Report: No Acid Fast Bacilli isolated [facility] Wound (Back) 11/03/2021 8:59 AM CDT 11/03/2021 9:39 AM CDT Narrative [facility] - 12/29/2021 1:00 PM CDT Deep Lumbar Wound Mycobacteriology (AFB) cultures are held for 8 weeks. Milad Garcia MD LAB MICROBIOLOGY - GENE RAL ORDERABLES Final Result Performing Organization Address [facility] de Phone Number [facility] [address] [place] [address] * (ABNORMAL) Mycology (fungal) culture Wound Back (11/03/2021 8:59 AM CDT) Report Final Report: No fungal growth seen on culture This is a corrected report. ??Previously reported as: Yeast isolated (.) [facility] Wound (Back) 11/03/2021 8:59 AM CDT 11/03/2021 9:39 AM CDT Narrative [facility] - 12/10/2021 10:49 AM CDT Deep Lumbar Wound Mycology cultures are held for 4 weeks. Milad Garcia MD LAB MICROBIOLOGY - GENE RAL ORDERABLES Final Result Performing Organization Address [facility] de Phone Number [facility] [address] [facility] [place] [address] * (ABNORMAL) Tissue aerobic and anaerobic culture and gram stain Tissue Back (11/03/2021 8:59 AM CDT) Direct Specimen Exam Stain: Many polymorphonuclear leukocytes seen. No organisms seen. [facility] Report Final Report: Very light growth Serratia marcescens In vitro Ceftriaxone FLY: <=0.25 = S FLY request by Dr. Young (.) [facility] Organism SERRATIA MARCESCENS [facility] Tissue (Back) 11/03/2021 8:5 9 AM CDT 11/03/2021 9:39 AM CDT Narrative [facility] - 11/06/2021 12:41 PM CDT [...] (FLY) INTERPRETATION Susceptible Serratia marcescens Piperacillin/Tazobactam (FLY) INT ERPRETATION Resistant Serratia marcescens Tobramycin (FLY) INTERPRETATION Susceptible Serratia marcescens Trimethoprim with Sulfamethoxazole (FLY) INTERPRETATION Susceptible Milad Garcia MD LAB MICROBIOLOGY - GENE RAL ORDERABLES Final Result Performing Organization Address [facility] Co de Phone Number [facility] [address] [place] [address] * Mycobacteriology (AFB) culture and acid-fast stain Wound Back (11/03/2021 8:59 AM CDT) Direct Specimen Exam Stain: Concentrated smear: No Acid Fast Bacillus Seen [facility] Report Final Report: No Acid Fast Bacilli isolated [facility] Wound (Back) 11/03/2021 8:59 AM CDT 11/03/2021 9:39 AM CDT Narrative [facility] - 12/29/2021 1:00 PM CDT Superficial Lumbar Wound Mycobacteriology (AFB) cultures are held for 8 weeks. Milad Garcia MD LAB MICROBIOLOGY - GENE RAL ORDERABLES Final Result Performing Organization Address City/[facility]/ZIP Co de Phone Number [facility] [address] [place] [address] * (ABNORMAL) Aerobic and anaerobic culture and gram stain Wound Back (11/03/2021 8:59 AM CDT) Direct Specimen Exam Stain: Few polymorphonuclear leukocytes seen. No organisms seen. [facility] Report Final Report: Very light growth Serratia marcescens Susceptibility reported on this organism on previous culture [id number] (.) [facility] Organism SERRATIA MARCESCENS [facility] Wound (Back) 11/03/2021 8:59 AM CDT 11/03/2021 9:39 AM CDT Narrative [facility] - 11/06/2021 12:39 PM CDT Superficial Lumbar Wound Milad Garcia MD LAB MICROBIOLOGY - GENE RAL ORDERABLES Final Result Performing Organization Address [facility] de Phone Number [facility] [address] Department of Laboratories [place], [place] [id number] * (ABNORMAL) Mycology (fungal) culture Wound Back (11/03/2021 8:59 AM CDT) Report Final Report: No fungal growth seen on culture This is a corrected report. ??Previously reported as: Very light growth Yeast (.) [facility] Organism YEAST [facility] Wound (Back) 11/03/2021 8:59 AM CDT 11/03/2021 9:39 AM CDT Narrative [facility] - 12/10/2021 10:49 AM CDT Superficial Lumbar wound Mycology cultures are held for 4 weeks. Milad Garcia MD LAB MICROBIOLOGY - GENE RAL ORDERABLES Final Result Performing Organization Address [facility] de Phone Number [facility] [address] [place] [address] * POCT glucose (11/03/2021 5:42 AM CDT) Glucose, POC 86 70 - 140 mg/dL [facility] Comment: For Glucose values <35 mg/dl when Hematocrit is >60 mg/dl,the test may not accurately detect significant hypoglycemia,and testing in the Laboratory should be considered if clinically indicated. Blood 11/03/2021 5:42 AM CDT 11/03/2021 5:42 AM CDT Juliocesar Calix MD LAB POCT ORDERABLES - DEVICE Fi nal Result Performing Organization Address [facility] Co de Phone Number [facility] [address] [facility] [employer] [place], [place] [id number] * POCT glucose (11/02/2021 8:17 PM CDT) [facility] Signature Glucose, POC 93 70 - 140 mg/dL [facility] Comment: For Glucose values <35 mg/dl when Hematocrit is >60 mg/dl,the test may not accurately detect significant hypoglycemia,and testing in the Laboratory should be considered if clinically indicated. Blood 11/02/2021 8:17 PM CDT 11/02/2021 8:17 PM CDT Juliocesar Calix MD LAB POCT ORDERABLES - DEVICE Fi nal Result Performing Organization Address [facility] de Phone Number [facility] [address] [place] [address] * CT Lumbar Spine W Contrast (11/02/2021 [...] CDT) eGFR 92 mL/min/1. 73 m2 [facility] Comment: Interpretive Data Reference Interval [...] MD LAB BLOOD ORDERABLES Final Resu lt [facility] [address] [place] [address] * Differential, auto (11/02/2021 6:56 AM CDT) Neutrophil abs 4.6 1.7 - 6.5 K/cumm [facility] Imm gran abs 0.0 0.0 - 0.1 K/cumm [facility] Lymphocyte abs 0.8 0.8 - 3.3 K/cumm [facility] Monocyte abs 0.7 0.2 - 0.8 K/cumm [facility] Eosinophil abs 0.0 0.0 - 0.5 K/cumm [facility] Basophil abs 0.0 0.0 - 0.1 K/cumm [facility] Neutrophil pct 74.6 % [facility] Comment: Interpretive Data Percent cell count reference ranges are not reported, since discordance with absolute values may lead to misinterpretation of CBC data. Current Interpretive Data was last revised on 2017. Imm gran pct 0.5 % [facility] Comment: Interpretive Data Percent cell count reference ranges are not reported, since discordance with absolute values may lead to misinterpretation of CBC data. Current Interpretive Data was last revised on 2017. Lymphocyte pct 13.7 % [facility] Comment: Interpretive Data Percent cell count reference ranges are not reported, since discordance with absolute values may lead to misinterpretation of CBC data. Current Interpretive Data was last revised on 2017. Monocyte pct 11.2 % [facility] Comment: Interpretive Data Percent cell count reference ranges are not reported, since discordance with absolute values may lead to misinterpretation of CBC data. Current Interpretive Data was last revised on 2017. Eosinophil pct 0.0 % [facility] Comment: Interpretive Data Percent cell count reference ranges are not reported, since discordance with absolute values may lead to misinterpretation of CBC data. Current Interpretive Data was last revised on 2017. Basophil pct 0.0 % [facility] Comment: Interpretive Data Percent cell count reference ranges are not reported, since discordance with absolute values may lead to misinterpretation of CBC data. Current Interpretive Data was last revised on 2017. Blood 11/02/2021 6:56 AM CDT 11/02/2021 7:22 AM CDT us Juliocesar Calix MD LAB BLOOD ORDERABLES Final Resu lt [facility] [address] [place] [address] * (ABNORMAL) Basic metabolic panel (11/02/2021 6:56 AM CDT) Sodium 131(L) 135 - 145 mmol/L [facility] Potassium, pl 4.4 3.3 - 4.9 mmol/L [facility] Chloride 96(L) 97 - 110 mmol/L [facility] CO2 29 22 - 32 mmol/L [facility] Anion gap 6 2 - 15 mmol/L [facility] BUN 9 8 - 25 mg/dL [facility] Creatinine 0.90 0.80 - 1.30 mg/dL [facility] Glucose 99 70 - 199 mg/dL [facility] Comment: Interpretive Data Fasting glucose >/= [...] 2017. Calcium 8.9 8.5 - 10.3 mg/dL [facility] Blood 11/02/2021 6:56 AM CDT 11/02/2021 7:22 AM CDT us Juliocesar Calix MD LAB BLOOD ORDERABLES Final Resu lt Performing Organization Address [facility]/ZIP Co de Phone Number [facility] [address] [place] [address] * (ABNORMAL) CBC with auto differential (11/02/2021 6:56 AM CDT) [facility] WBC 6.1 3.8 - 9.9 K/cumm [facility] Hgb 10.3(L) 13.0 - 17.5 g/dL [facility] Hct 31.4(L) 38.9 - 50.3 % [facility] Plt 418(H) 150 - 400 K/cumm [facility] MPV 8.3(L) 9.1 - 12.3 fL [facility] RBC 3.57(L) 4.30 - 5.80 M/cumm [facility] MCV 88.0 81.3 - 96.4 fL [facility] MCH 28.9 27.1 - 33.3 pg [facility] MCHC 32.8 32.3 - 35.7 g/dL [facility] RDW CV 13.1 11.1 - 14.9 % [facility] RDW SD 42.7 35.7 - 48.1 fL [facility] NRBC abs 0.00 0.00 - 0.01 K/cumm [facility] Blood 11/02/2021 6:56 AM CDT 11/02/2021 7:22 AM CDT us Juliocesar Calix MD LAB BLOOD ORDERABLES Final Resu lt [facility] [address] [employer] [place] [address] * eGFR (10/31/2021 5:00 AM CDT) [facility] eGFR 92 mL/min/1. 73 m2 [facility] Comment: Interpretive Data Reference Interval Normal [...] MD LAB BLOOD ORDERABLES Final Resu lt [facility] [address] [place] [address] * (ABNORMAL) Differential, auto (10/31/2021 5:00 AM CDT) Neutrophil abs 3.6 1.7 - 6.5 K/cumm [facility] Imm gran abs 0.0 0.0 - 0.1 K/cumm [facility] Lymphocyte abs 0.7(L) 0.8 - 3.3 K/cumm [facility] Monocyte abs 0.6 0.2 - 0.8 K/cumm [facility] Eosinophil abs 0.0 0.0 - 0.5 K/cumm [facility] Basophil abs 0.0 0.0 - 0.1 K/cumm [facility] Neutrophil pct 72.4 % [facility] Comment: Interpretive Data Percent cell count reference ranges are not reported, since discordance with absolute values may lead to misinterpretation of CBC data. Current Interpretive Data was last revised on 2017. Imm gran pct 0.8 % [facility] Comment: Interpretive Data Percent cell count reference ranges are not reported, since discordance with absolute values may lead to misinterpretation of CBC data. Current Interpretive Data was last revised on 2017. Lymphocyte pct 14.5 % [facility] Comment: Interpretive Data Percent cell count reference ranges are not reported, since discordance with absolute values may lead to misinterpretation of CBC data. Current Interpretive Data was last revised on 2017. Monocyte pct 12.1 % [facility] Comment: Interpretive Data Percent cell count reference ranges are not reported, since discordance with absolute values may lead to misinterpretation of CBC data. Current Interpretive Data was last revised on 2017. Eosinophil pct 0.0 % [facility] Comment: Interpretive Data Percent cell count reference ranges are not reported, since discordance with absolute values may lead to misinterpretation of CBC data. Current Interpretive Data was last revised on 2017. Basophil pct 0.2 % [facility] Comment: Interpretive Data Percent cell count reference ranges are not reported, since discordance with absolute values may lead to misinterpretation of CBC data. Current Interpretive Data was last revised on 2017. Blood 10/31/2021 5:00 AM CDT 10/31/2021 6:16 AM CDT us Juliocesar Calix MD LAB BLOOD ORDERABLES Final Resu lt [facility] [address] [place] [address] * (ABNORMAL) Basic metabolic panel (10/31/2021 5:00 AM CDT) Sodium 131(L) 135 - 145 mmol/L [facility] Potassium, pl 4.2 3.3 - 4.9 mmol/L [facility] Chloride 98 97 - 110 mmol/L [facility] CO2 26 22 - 32 mmol/L [facility] Anion gap 7 2 - 15 mmol/L [facility] BUN 11 8 - 25 mg/dL [facility] Creatinine 0.89 0.80 - 1.30 mg/dL [facility] Glucose 105 70 - 199 mg/dL [facility] Comment: Interpretive Data Fasting glucose >/= [...] 2017. Calcium 8.3(L) 8.5 - 10.3 mg/dL [facility] Blood 10/31/2021 5:00 AM CDT 10/31/2021 6:17 AM CDT us Juliocesar Calix MD LAB BLOOD ORDERABLES Final Resu lt [facility] [address] [place] [address] * (ABNORMAL) CBC with auto differential (10/31/2021 5:00 AM CDT) WBC 5.0 3.8 - 9.9 K/cumm [facility] Hgb 8.9(L) 13.0 - 17.5 g/dL [facility] Hct 28.1(L) 38.9 - 50.3 % [facility] Plt 323 150 - 400 K/cumm [facility] MPV 8.7(L) 9.1 - 12.3 fL [facility] RBC 3.09(L) 4.30 - 5.80 M/cumm [facility] MCV 90.9 81.3 - 96.4 fL [facility] MCH 28.8 27.1 - 33.3 pg [facility] MCHC 31.7(L) 32.3 - 35.7 g/dL [facility] RDW CV 13.2 11.1 - 14.9 % [facility] RDW SD 44.0 35.7 - 48.1 fL [facility] NRBC abs 0.00 0.00 - 0.01 K/cumm [facility] Blood 10/31/2021 5:00 AM CDT 10/31/2021 6:16 AM CDT us Juliocesar Calix MD LAB BLOOD ORDERABLES Final Resu lt [facility] [address] [place] [address] * eGFR (10/30/2021 9:10 AM CDT) eGFR 95 mL/min/1. 73 m2 [facility] Comment: Interpretive Data Reference Interval Normal [...] of Race in Diagnosing Kidney Disease, JASN 2021). The CKD-EPI equation should not be used for patients with unstable renal function and has not been validated in children and those over 70. Current interpretive data was last reviewed 2021. Blood 10/30/2021 9:10 AM CDT 10/30/2021 9:16 AM CDT us Juliocesar Calix MD LAB BLOOD ORDERABLES Final Resu lt [facility] [address] [place] [address] * (ABNORMAL) Differential, auto (10/30/2021 9:10 AM CDT) Neutrophil abs 8.0(H) 1.7 - 6.5 K/cumm [facility] Imm gran abs 0.0 0.0 - 0.1 K/cumm [facility] Lymphocyte abs 0.5(L) 0.8 - 3.3 K/cumm [facility] Monocyte abs 0.8 0.2 - 0.8 K/cumm [facility] Eosinophil abs 0.0 0.0 - 0.5 K/cumm [facility] Basophil abs 0.0 0.0 - 0.1 K/cumm [facility] Neutrophil pct 85.6 % [facility] Comment: Interpretive Data Percent cell count reference ranges are not reported, since discordance with absolute values may lead to misinterpretation of CBC data. Current Interpretive Data was last revised on 2017. Imm gran pct 0.3 % [facility] Comment: Interpretive Data Percent cell count reference ranges are not reported, since discordance with absolute values may lead to misinterpretation of CBC data. Current Interpretive Data was last revised on 2017. Lymphocyte pct 5.7 % [facility] Comment: Interpretive Data Percent cell count reference ranges are not reported, since discordance with absolute values may lead to misinterpretation of CBC data. Current Interpretive Data was last revised on 2017. Monocyte pct 8.3 % [facility] Comment: Interpretive Data Percent cell count reference ranges are not reported, since discordance with absolute values may lead to misinterpretation of CBC data. Current Interpretive Data was last revised on 2017. Eosinophil pct 0.0 % [facility] Comment: Interpretive Data Percent cell count reference ranges are not reported, since discordance with absolute values may lead to misinterpretation of CBC data. Current Interpretive Data was last revised on 2017. Basophil pct 0.1 % [facility] Comment: Interpretive Data Percent cell count reference ranges are not reported, since discordance with absolute values may lead to misinterpretation of CBC data. Current Interpretive Data was last revised on 2017. Blood 10/30/2021 9:10 AM CDT 10/30/2021 9:16 AM CDT us Juliocesar Calix MD LAB BLOOD ORDERABLES Final Resu lt [facility] [address] [place] [address] * (ABNORMAL) Basic metabolic panel (10/30/2021 9:10 AM CDT) Sodium 133(L) 135 - 145 mmol/L [facility] Potassium, pl 3.9 3.3 - 4.9 mmol/L [facility] Chloride 97 97 - 110 mmol/L [facility] CO2 27 22 - 32 mmol/L [facility] Anion gap 9 2 - 15 mmol/L [facility] BUN 10 8 - 25 mg/dL [facility] Creatinine 0.81 0.80 - 1.30 mg/dL [facility] Glucose 124 70 - 199 mg/dL [facility] Comment: Interpretive Data Fasting glucose >/= [...] 2017. Calcium 8.5 8.5 - 10.3 mg/dL [facility] Blood 10/30/2021 9:10 AM CDT 10/30/2021 9:16 AM CDT Juliocesar Calix MD LAB BLOOD ORDERABLES Final Resu lt Performing Organization Address [facility] Co de Phone Number [facility] [address] [place] [address] * (ABNORMAL) CBC with auto differential (10/30/2021 9:10 AM CDT) WBC 9.4 3.8 - 9.9 K/cumm [facility] Hgb 10.1(L) 13.0 - 17.5 g/dL [facility] Hct 30.5(L) 38.9 - 50.3 % [facility] Plt 323 150 - 400 K/cumm [facility] MPV 8.4(L) 9.1 - 12.3 fL [facility] RBC 3.39(L) 4.30 - 5.80 M/cumm [facility] MCV 90.0 81.3 - 96.4 fL [facility] MCH 29.8 27.1 - 33.3 pg [facility] MCHC 33.1 32.3 - 35.7 g/dL [facility] RDW CV 13.1 11.1 - 14.9 % [facility] RDW SD 43.0 35.7 - 48.1 fL [facility] NRBC abs 0.00 0.00 - 0.01 K/cumm [facility] Blood 10/30/2021 9:10 AM CDT 10/30/2021 9:16 AM CDT Juliocesar Calix MD LAB BLOOD ORDERABLES Final Resu lt Performing Organization Address City/[facility]/ZIP Co de Phone Number [facility] [address] Department [employer] [place], [place] [id number] * (ABNORMAL) Aerobic and anaerobic culture and gram stain Wound Back, lower (10/29/2021 7:03 PM CDT) Direct Specimen Exam Stain: Moderate polymorphonuclear leukocytes seen. No organisms seen. [facility] Report Final Report: Light growth of: Serratia marcescens Susceptibility reported on this organism on previous culture [id number] (.) [facility] Organism SERRATIA MARCESCENS [facility] Wound (Back, lower) 10/29/2021 7:03 PM CDT 10/29/2021 7:03 PM CDT Narrative [facility] - 11/01/2021 12:03 PM CDT Deep back wound Osmel Sheets MD LAB MICROBIOLOGY - GENERAL OR DERABLES Final Result [facility] [address] [place] [address] * (ABNORMAL) Aerobic and anaerobic culture and gram stain Wound Back, lower (10/29/2021 7:03 PM CDT) Direct Specimen Exam Stain: Many polymorphonuclear leukocytes seen. No organisms seen. [facility] Report Final Report: Light growth of: Serratia marcescens (.) [facility] Organism SERRATIA MARCESCENS [facility] Wound (Back, lower) 10/29/2021 7:03 PM CDT 10/29/2021 7:03 PM CDT Narrative [facility] - 11/01/2021 12:02 PM CDT Superficial [...] OR DERABLES Final Result Performing Organization Address [facility] de Phone Number [facility] [address] [place] [address] * ECG 12 lead (10/29/2021 12:44 AM CDT) 10/29/2021 12:4 4 AM CDT Narrative [facility] - 10/29/2021 7:31 AM CDT Vent Rate: 91 bpm RR Interval: 659 msec MN Interval: 188 msec QRS Duration: 137 msec QT Interval: 343 msec QTC Interval: 391 msec P-R-T [place]: 47 - -70 - 42 degrees SINUS RHYTHM LEFT AXIS DEVIATION RIGHT BUNDLE BRANCH BLOCK ABNORMAL ECG Electronically Signed By: Jessee Florence MD us Sukhdev Matias MD ECG ORDERABLES Edited R esult - Final Performing Organization Address [facility] de Phone Number [facility] [employer] [facility] * eGFR (10/29/2021 12:32 AM CDT) eGFR 92 mL/min/1. 73 m2 [facility] Comment: Interpretive Data Reference Interval [...] MD LAB BLOOD ORDERABLES Fin al Result [facility] [address] [place] [address] * (ABNORMAL) Differential, auto (10/29/2021 12:32 AM CDT) Neutrophil abs 12.4(H) 1.7 - 6.5 K/cumm [facility] Imm gran abs 0.1 0.0 - 0.1 K/cumm [facility] Lymphocyte abs 0.7(L) 0.8 - 3.3 K/cumm [facility] Monocyte abs 0.9(H) 0.2 - 0.8 K/cumm [facility] Eosinophil abs 0.0 0.0 - 0.5 K/cumm [facility] Basophil abs 0.0 0.0 - 0.1 K/cumm [facility] Neutrophil pct 87.9 % [facility] Comment: Interpretive Data Percent cell count reference ranges are not reported, since discordance with absolute values may lead to misinterpretation of CBC data. Current Interpretive Data was last revised on 2017. Imm gran pct 0.6 % [facility] Comment: Interpretive Data Percent cell count reference ranges are not reported, since discordance with absolute values may lead to misinterpretation of CBC data. Current Interpretive Data was last revised on 2017. Lymphocyte pct 5.3 % [facility] Comment: Interpretive Data Percent cell count reference ranges are not reported, since discordance with absolute values may lead to misinterpretation of CBC data. Current Interpretive Data was last revised on 2017. Monocyte pct 6.1 % [facility] Comment: Interpretive Data Percent cell count reference ranges are not reported, since discordance with absolute values may lead to misinterpretation of CBC data. Current Interpretive Data was last revised on 2017. Eosinophil pct 0.0 % [facility] Comment: Interpretive Data Percent cell count reference ranges are not reported, since discordance with absolute values may lead to misinterpretation of CBC data. Current Interpretive Data was last revised on 2017. Basophil pct 0.1 % [facility] Comment: Interpretive Data Percent cell count reference ranges are not reported, since discordance with absolute values may lead to misinterpretation of CBC data. Current Interpretive Data was last revised on 2017. Blood 10/29/2021 12:3 2 AM CDT 10/29/2021 12:40 AM CDT Sukhdev Matias MD LAB BLOOD ORDERABLES Fin al Result [facility] [address] [place] [address] * Sepsis Lactate w/ Reflex (10/29/2021 12:32 AM CDT) [facility] Sepsis Lactate 1.0 0.7 - 2.0 mmol/L [facility] Blood 10/29/2021 12:3 2 AM CDT 10/29/2021 12:35 AM CDT Sukhdev Matias MD LAB BLOOD ORDERABLES Fin al Result [facility] [address] [place] [address] * Type and screen (10/29/2021 12:32 AM CDT) Sarah, indirect Negative [facility] ABO Rh A Negative [facility] Blood 10/29/2021 12:3 2 AM CDT 10/29/2021 12:42 AM CDT Narrative [facility] - 10/29/2021 1:19 AM CDT Has the patient had Daratumumab or Isatuximab in the past 6 months?->Unknown Sukhdev Matias MD LAB BLOOD BANK TEST ORDE RABLES Final Result Performing Organization Address [facility]/ZIP Co de Phone Number [facility] [address] [place] [address] * (ABNORMAL) CRP (acute phase) (10/29/2021 12:32 AM CDT) Pathologist [facility] CRP 224.8(H) <=10.0 mg/L [facility] Blood 10/29/2021 12:3 2 AM CDT 10/29/2021 12:38 AM CDT Sukhdev Matias MD LAB BLOOD ORDERABLES Fin al Result Performing Organization Address [facility] Co de Phone Number [facility] [address] [place] [address] * (ABNORMAL) Erythrocyte sedimentation rate (10/29/2021 12:32 AM CDT) Pathologist [facility] Erythrocyte sedimentation rate 25(H) 1 - 20 mm/hr [facility] Blood 10/29/2021 12:3 2 AM CDT 10/29/2021 12:40 AM CDT Sukhdev Matias MD LAB BLOOD ORDERABLES Fin al Result Performing Organization Address City/[facility] Co de Phone Number [facility] [address] [place] [address] * Phosphorus (10/29/2021 12:32 AM CDT) Phosphorus, pl 2.8 2.3 - 4.5 mg/dL [facility] Blood 10/29/2021 12:3 2 AM CDT 10/29/2021 12:38 AM CDT Sukhdev Matias MD LAB BLOOD ORDERABLES Fin al Result Performing Organization Address [facility] Co de Phone Number [facility] [address] [place] [address] * Magnesium (10/29/2021 12:32 AM CDT) [facility] Magnesium 1.8 1.4 - 2.5 mg/dL [facility] Blood 10/29/2021 12:3 2 AM CDT 10/29/2021 12:38 AM CDT Sukhdev Matias MD LAB BLOOD ORDERABLES Fin al Result Performing Organization Address [facility] de Phone Number [facility] [address] [place] [address] * (ABNORMAL) Blood culture Blood (10/29/2021 12:32 AM CDT) [facility] Direct Specimen Exam Molecular Analysis: Serratia marcescens detected by the [facility] Blood Culture Identification Panel. ??This test does not exclude the possibility of a mixed bacterial infection. Test result called to and read back by Handy Thao on 10/30/2021 10:18:25 by KATE [facility] Direct Specimen Exam Stain: Gram Negative Bacilli [facility] Report Final Report: Serratia marcescens (.) [facility] Organism SERRATIA MARCESCENS [facility] Blood 10/29/2021 12:3 2 AM CDT 10/29/2021 12:43 AM CDT Narrative [facility] - 11/01/2021 6:48 AM CDT [...] AL ORDERABLES Final Result Performing Organization Address City/[facility]/ZIP Co de Phone Number [facility] [address] [place] [address] * Blood culture Blood (10/29/2021 12:32 AM CDT) Report Final Report: No growth [facility] Blood 10/29/2021 12:3 2 AM CDT 10/29/2021 12:43 AM CDT Sukhdev Matias MD LAB MICROBIOLOGY - GENER AL ORDERABLES Final Result Performing Organization Address [facility]/ZIP Co de Phone Number [facility] [address] [place] [address] * (ABNORMAL) CBC with auto differential (10/29/2021 12:32 AM CDT) WBC 14.0(H) 3.8 - 9.9 K/cumm [facility] Hgb 10.0(L) 13.0 - 17.5 g/dL [facility] Hct 30.0(L) 38.9 - 50.3 % [facility] Plt 316 150 - 400 K/cumm [facility] MPV 8.3(L) 9.1 - 12.3 fL [facility] RBC 3.43(L) 4.30 - 5.80 M/cumm [facility] MCV 87.5 81.3 - 96.4 fL [facility] MCH 29.2 27.1 - 33.3 pg [facility] MCHC 33.3 32.3 - 35.7 g/dL [facility] RDW CV 13.3 11.1 - 14.9 % [facility] RDW SD 42.8 35.7 - 48.1 fL [facility] NRBC abs 0.00 0.00 - 0.01 K/cumm [facility] Blood 10/29/2021 12:3 2 AM CDT 10/29/2021 12:40 AM CDT Sukhdev Matias MD LAB BLOOD ORDERABLES Fin al Result [facility] [address] [place] [address] * (ABNORMAL) Comprehensive metabolic panel (10/29/2021 12:32 AM CDT) Sodium 130(L) 135 - 145 mmol/L [facility] Potassium, pl 4.2 3.3 - 4.9 mmol/L [facility] Chloride 98 97 - 110 mmol/L [facility] CO2 23 22 - 32 mmol/L [facility] Anion gap 9 2 - 15 mmol/L [facility] BUN 10 8 - 25 mg/dL [facility] Creatinine 0.89 0.80 - 1.30 mg/dL [facility] Glucose 103 70 - 199 mg/dL [facility] Comment: Interpretive Data Fasting glucose >/= [...] 2017. Calcium 8.1(L) 8.5 - 10.3 mg/dL [facility] Bilirubin, total 0.6 0.1 - 1.2 mg/dL [facility] Protein, pl 5.6(L) 6.5 - 8.5 g/dL [facility] Albumin 3.0(L) 3.5 - 5.0 g/dL [facility] Alk phos 83 40 - 130 Units/L [facility] ALT 34 7 - 55 Units/L [facility] AST 32 10 - 50 Units/L [facility] Blood 10/29/2021 12:3 2 AM CDT 10/29/2021 12:38 AM CDT Sukhdev Matias MD LAB BLOOD ORDERABLES Fin al Result [facility] [address] [place] [address] documented in this encounter Visit Diagnoses Not [...] PO., Starting on Thu10/28/21 at 2229, Indications: constipationIndications:constipa tion bisacodyl EC (DULCOLAX EC) tablet 10 mg 10 mg, oral, Daily PRN, constipation, If no results 24 hours after polyethylene glycol (MIRALAX). May give bisacodyl supp if not tolerating PO), Starting on Thu10/28/21 at 2229, Do not crush, chew, cut, dissolve, open or otherwise manipulate tablet/capsule., Indications: constipationIndications:constipa tion budesonide-formoteroL (SYMBICORT) 160-4.5 mcg/actuation inhaler 2 puff 2 puff, inhalation, 2 times daily PRN (manager social responsibility), sob, Starting on Audrey 10/31/21 at 1202, Rinse mouth with water after use. Do not swallow., I /authorizing provider attest that the patient meets the approved [facility] Use Criteria: Yes ceFAZolin (ANCEF) injection Administer over 3 Minutes, As needed, Starting on Thu10/29/21 at 1833, Intra-Op Given 10/29/2021 6:37 PM CDT 1,000 mg Surgical Site Given 10/29/2021 6:33 PM CDT 1,000 mg Pizarro rgical Site cefTRIAXone (ROCEPHIN) 2,000 mg/20 mL in sterile [...] constipation, Starting on Thu10/28/21 at 2229, Indications: constipationIndications:con stipation polymyxin B injection As needed, Starting on Thu10/29/21 at 1832, Intra-Op Given 10/29/2021 6:37 PM CDT 500,000 Units Surgical Site Given 10/29/2021 6:32 PM CDT 500,000 Units Surgical Site polyvinyl alcohol (LIQUIFILM TEARS) 1.4 % ophthalmic [...] chloride 0.9% irrigation As needed, Starting on Thu10/29/21 at 1829, Intra-Op Given 10/29/2021 6:38 PM CDT 3,000 mL Surgical Site Given 10/29/2021 6:30 PM CDT 3,000 mL [place] rgical Site tiZANidine (ZANAFLEX) tablet 4 mg 4 mg, oral, Every 6 hours PRN, muscle spasms, Starting on Thu10/30/21 at 0834, Administer on an empty stomach, Indications: Muscle SpasmIndications:Muscle Spasm Given 11/04/2021 4:44 AM CDT 4 mg vancomycin (VANCOCIN) 1,000 mg, gentamicin (GARAMYCIN) 80 mg in sodium chloride 0.9% 1,000 mL solution As needed, Starting on Thu10/29/21 at 1828, Intra-Op Given 10/29/2021 6:28 PM CDT 1,000 mL Surgical Site vancomycin (VANCOCIN) capsule 125 mg 125 mg, oral, Daily, First dose (after last reorder) on Thu11/02/21 at 0900, Indications: Clostridioides difficile infectionIndications:Clostridioid es difficile infection Given 11/06/2021 9:16 AM CDT 125 mg Given 11/05/2021 8:40 AM CDT 125 mg Given 11/04/2021 8:57 AM CDT 125 mg vancomycin (VANCOCIN) solution As needed, Starting on Thu10/29/21 at 1828, Intra-Op Given 10/29/2021 6:32 PM CDT 1,000 mg Surgical Site documented in this encounter Discontinued [...] Robyn Lakhani RN)2109 (Given - Provider: Kitty Martin RN) 0523 (Given - Provider: Kitty Martin RN)1417 (Given - Provider: Aretha Sue RN)2301 (Not Given - Provider: Selene Ashley RN - Reason: Patient/family refused) 0612 (Given - Provider: Selene Ashley, RN)1306 (Given - Provider: Mihaela Nials, ZEYNEP) cefTRIAXone (ROCEPHIN) 2,000 mg/20 mL in [...] RN) 0916 (Given - Provider: Mihaela Nails, ZENYEP) polyvinyl alcohol (LIQUIFILM TEARS) 1.4 % ophthalmic [...] Patient/family refused) 0916 (Given - Provider: Mihaela Nails RN) pregabalin (LYRICA) capsule 150 mg 150 mg, [...] IV Infusing)1408 (Given - Provider: Robyn Lakhani RN)2112 (Given - Provider: Kitty Martin RN) 0524 (Given - Provider: Kitty Martin RN)141 (Given - Provider: Aretha Sue RN)2157 (Not Given - Provider: Selene Ashley RN - Reason: Other - Comment: duplicate order) 0613 (Given - Provider: Selene Ashley, RN)1322 (Given - Provider: Mihaela Nails, ZEYNEP) [...] Lakhani, ZEYNEP) 0840 (Given - Provider: Aretha Sue RN) [...] 2 puff, inhalation, 2 times daily PRN (manager social responsibility), sob, Starting on Audrey 10/31/21 at 1202, Rinse mouth with water after use. Do not swallow., I /authorizing provider attest that the patient meets the approved [facility] Use Criteria: Yes dextrose (D10W) 10% bolus 250 mL 250 mL, intravenous, at 1,000 mL/hr, Administer over 15 Minutes, Once as needed, blood glucose less than 70 mg/dL, Starting on 11/03/21 at 1123, Pre-Op, Indications: Hypoglycemia morphine injection 2 mg 2 mg, intravenous, Administer over 4 Minutes, Every 3 hours PRN, 3rd line for pain, Starting on 11/03/21 at 1129 ondansetron (ZOFRAN) injection 4 mg(Linked Group 1) 4 mg, intravenous, Administer over 2 Minutes, Every 6 hours PRN, nausea, vomiting, if not tolerating PO, Starting on 10/28/21 at 2229, Indications: Nausea and Vomiting ondansetron ODT (ZOFRAN-ODT) disintegrating tablet 4 mg(Linked Group 1) 4 mg, oral, Every 6 hours PRN, nausea, vomiting, Starting on 10/28/21 at 2229, Indications: Nausea and Vomiting oxyCODONE [...] Patient/family refused)2036 (Given - Provider: Selene Ashley, ZEYNEP) 002 (Given - Provider: Selene Ashley RN)0918 (Return to [facility] - Provider: Mihaela Nails RN) oxyCODONE (ROXICODONE) tablet 5 mg 5 mg, oral, Every 4 hours PRN, 2nd line for pain, Starting on Thu11/04/21 at 1019, Indications: Pain 1414 (Given - Provider: Robyn Lakhani RN) 2031 (Not Given - Provider: Selene Ashley [...] 10/29/2021 sodium chloride 0.9% infusion 1 11/03/2021 sodium chloride 0.9% irrigation 1 tobramycin (NEBCIN) topical irrigation 1 ioversoL (OPTIRAY 350) syringe 100 mL 1 [...] (TYLENOL) tablet 1,000 mg 1 0 10/29/2021 cefepime (MAXIPIME) 1,000 mg in sodium chloride 0.9% 100 mL IVPB 1 10/29/2021 dextrose 5% and sodium chlor clare 0.45% with potassium chloride 20 mEq/L infusion (premix) 1 10/29/2021 HYDROmorphone (DILAUDID) injection 0.2 mg 1 10/29/2021 Lactated Ringer's (LR) infusion 2 lidocaine PF (XYLOCAINE) 10 mg/mL (1 %) preservative free injection 2-10 mg 1 10/29/2021 morphine injection 4 mg 1 10/29/2021 sodium chloride 0.9% flush 0.5-20 mL 3 04/202110/28/2021 vancomycin 1250 mg/250 mL in sodium chloride [...] 10/28/2021 documented in this encounter Care Teams Train Operations Supervisor Relationship Specialty Start Date End Date Anil Gupta MD [address] [place] [address] PCP - General Internal Medicine 04/19/21 Anil Gupta MD [address] [place] [address] Internal Medicine 04/19/21 documented as of this encounter
--- OUTSIDE RECORDS SUMMARY | 2024-03-19 07:31 | XMS_ITS | Encounter Summary ---
Author Organization [facility] Address [address] [place] [address] Care Team Providers Care Quenching Machine Operator Name Role Phone Anil Gupta MD Primary Care Provider [phone] Anil Gupta MD Unavailable [phone] Reason for Visit * Auth/Cert Specialty Diagnoses / Procedures Referred By Enio t Referred To Contact Diagnoses Lumbar radiculopathy Lumbar radiculopathy [M54.16] Procedures OR LAMNOTMY INCL W/DCMPRSN NRV ROOT 1 INTRSPC LUMBR L5-S1 Right Lumbar Microdiscectomy Referral ID Status Reason Start Date Expiration Date Visits Re quested Visits Authorized [id number] 1 1 Encounter Details Date Type Department Care Team (Latest Contact Info) Description 06/03/2021 8:21 AM CARDIAC CATHETERIZATION TECHNICIAN - 06/03/2021 2:02 PM CARDIAC CATHETERIZATION TECHNICIAN Hospital Encounter [facility] Operating Room [address] [place] [address] Jayy Granger MD [address] [facility] [address] [place] [address] Lower back pain Discharge Disposition: Discharge to home [...] on file Legal Sex Male 12:56 PM CARDIAC CATHETERIZATION TECHNICIAN Gender Identity Male 05/23/2021 12:08 PM CARDIAC CATHETERIZATION TECHNICIAN Sexual Orientation Straight 05/23/2021 12 :08 PM CARDIAC CATHETERIZATION TECHNICIAN documented as of this encounter Last Filed Vital Signs Vital Sign Reading Time Taken Comments Blood Pressure 121/79 06/03/2021 1:20 PM CARDIAC CATHETERIZATION TECHNICIAN Pulse 56 06/03/2021 1:20 PM CARDIAC CATHETERIZATION TECHNICIAN Temperature 35.4 ??C (95.756 ??F) 06/03/2021 1:20 PM CARDIAC CATHETERIZATION TECHNICIAN Respiratory Rate 12 06/03/2021 1:20 PM CARDIAC CATHETERIZATION TECHNICIAN Oxygen Saturation 95% 06/03/2021 1:20 PM CARDIAC CATHETERIZATION TECHNICIAN Inhaled Oxygen Concentration - - Weight 86.1 kg (189 lb 13.1 oz) 06/03/2021 9:12 AM CARDIAC CATHETERIZATION TECHNICIAN Height 182.9 cm (6') 06/03/2021 9:12 AM CARDIAC CATHETERIZATION TECHNICIAN Body Mass Index 25.74 06/03/2021 9:12 AM CARDIAC CATHETERIZATION TECHNICIAN documented in this encounter Medications at Time [...] by mouth daily 03/17/2018 3 nebulizer accessories [facility] See Instructions, 1 each, 1 each, Route to Pharmacy Electronically, [facility]/pharmacy #[id number], [id number], Instructions Replace Required Details, Supply 12/12/2019 [...] risk for: Procedure(s): L5-S1 Right Lumbar Microdiscectomy IAC CATHETERIZATION TECHNICIAN Source Note - Olimpia Maldonado PA - 05/29/2021 9:25 AM CARDIAC CATHETERIZATION TECHNICIAN Images from the original note were not included. Anesthesia Evaluation Douglas Horn is a 71 y.o. male who [facility] preoperative evaluation of L5-S1 Right Lumbar Microdiscectomy with Jayy Granger MD on 06/03/2021. Patient to report for COVID testing either 05/30, 05/31 at [facility]. A copy of COVID-19 pre-collection instructions was provided to the patient. COVID-19 testing order was placed in [facility]. Procedure(s): L5-S1 Right Lumbar Microdiscectomy Pre-Op Diagnosis [...] - He was sentto Dr. Mendo[facility] at [facility]. He received five rounds of [...] respiratory infection comes and goes - on custodial antibiotics to prevent further mucous build up ??? Toxic effect of mercury and its compounds, accidental (unintentional), initial encounter History reviewed. No pertinent surgical history. No Known Allergies Med List Status: Nurse Complete Set By: Eileen John RN at 05/30/2021 10:05 AM Taking? Last Dose Start Date End Date Provider albuterol HFA (PROVENTIL HFA,VENTOLIN HFA,PROAIR HFA) 90 mcg/actuation inhaler -- -- ProviderCarin MD azithromycin (ZITHROMAX) 500 mg tablet -- -- ProviderCarin MD budesonide-formoteroL (SYMBICORT) 160-4.5 mcg/actuation inhaler -- -- Carin Chirinos MD celecoxib (CeleBREX) 200 mg capsule -- -- Carin Chirinos MD fluticasone propionate (FLONASE) 50 mcg/actuation nasal spray -- -- Carin Chirinos MD ipratropium (ATROVENT) 42 mcg (0.06 %) nasal spray -- -- ProviderCarin MD levoFLOXacin (LEVAQUIN) 500 mg tablet -- -- Carin Chirinos MD LYRICA 150 mg capsule 03/17/18 -- Carin Chirinos MD methylPREDNISolone (MEDROL DOSEPACK) 4 mg Dosepack -- -- Provider, MD Carin rOPINIRole (REQUIP) 2 mg tablet -- -- ProviderCarin MD tiZANidine (ZANAFLEX) 4 mg tablet -- -- Carin Chirinos MD valACYclovir (VALTREX) 500 mg tablet -- -- Provider, MD Carin Current Outpatient Medications: ??? azithromycin (ZITHROMAX) 500 [...] SpO2: 95% COVID-19 No results found for: [id number] No labs required per anesthesia guidelines ASSESSMENT [...] 2 Flynn Activity Status Index Score: 15.3 IAC CATHETERIZATION TECHNICIAN documented in this encounter Miscellaneous Notes * Perioperative Nursing Note - Eileen Garcia RN - 06/03/2021 2:00 PM CARDIAC CATHETERIZATION TECHNICIAN Iv dc'd. Pt ambulated w minimal assist to BR, voided. No nausea. Has pain, tolerable. Discharge to home w . IAC CATHETERIZATION TECHNICIAN * Op Note - Jayy Granger MD [...] continuous bi-directional remote audio/visual communication between the ekg/ecg technician, reader and myself. There was irritation [...] S1 nerve root was palpated with a Elbert and found to be widely decompressed along its entire course out into the foramen. The wound was copiously irrigated with antibiotic containing solution and then closed in layers. Perineo was used to seal the skin. The patient tolerated the procedure well without complication and was discharged in stable condition to the Post Anesthesia Care Unit with an unchanged neurological exam. I, Jayy Granger MD, was present throughout and performed the entire procedure. Jayy Granger MD Date: 06/03/2021 Time: 11:40 AM IAC CATHETERIZATION TECHNICIAN * Plan of Care - Jayy Granger [...] Mr. Horn is being admitted today to [facility] to undergo lumbar microdiscectomy. I anticipate discharge to home later today. Patient status inquiries can be directed to: [facility] Cath Lab Radiology Technician [facility] W4S Ortho/spine floor [facility] W4W Ortho/spine floor If you have any other questions, please do not hesitate to contact me through my office number of [phone]. Thanks again, Jayy Granger MD, FAANS IAC CATHETERIZATION TECHNICIAN documented in this encounter Plan of Treatment Not on file documented as of this encounter Procedures Procedure Name Priority Date/Time Associated Diagnosis Comments XR SPINE LUMBAR 1 VIEW IP Routine 11:15 AM CARDIAC CATHETERIZATION TECHNICIAN Lower back pain LUMBAR LAMINECTOMY MICRODISCECTOMY 06/03/2021 10:36 AM CARDIAC CATHETERIZATION TECHNICIAN Lumbar radiculopathy documented in this encounter Results * XR Spine Lumbar 1 View (06/03/2021 11:15 AM CARDIAC CATHETERIZATION TECHNICIAN) Anatomical Region Laterality Modality Spine N/A Computed Radiogr aphy 06/03/2021 11:5 5 AM CARDIAC CATHETERIZATION TECHNICIAN Impressions 06/03/2021 11:55 AM CARDIAC CATHETERIZATION TECHNICIAN FINDINGS/IMPRESSION: Single intraoperative lateral radiograph was presented [...] Ariel Poe M.D. Narrative 06/03/2021 11:55 AM CARDIAC CATHETERIZATION TECHNICIAN EXAMINATION: XR SPINE LUMBAR 1 VIEW HISTORY: [...] at L4-L5 and L5-S1. Electronically signed by: Airel Poe M.D. us Jayy Granger MD IMG XR PROCEDURES Final Resul t documented in this encounter Visit Diagnoses Diagnosis Lumbar radiculopathy- Primary Thoracic or lumbosacral neuritis or radiculitis, unspecified Lower back pain Lumbago documented in this encounter Admitting Diagnoses Diagnosis Lumbar radiculopathy Thoracic or lumbosacral neuritis or radiculitis, unspecified documented in this encounter Administered Medications Inactive Administered Medications - up to 3 most recent administrations Medication Order MAR Action Action Date Dose Rate Site acetaminophen (TYLENOL) tablet 1,000 mg 1,000 mg, oral, Once, On Thu06/03/21 at 0915, For 1 dose, Pre-Op, Indications: Pre-Emptive AnalgesiaIndications:Pre-Emptiv e Analgesia Given 06/03/2021 9:25 AM CARDIAC CATHETERIZATION TECHNICIAN 1,000 mg fentaNYL (SUBLIMAZE) preservative free injection 25 mcg 25 mcg, intravenous, Every 5 min PRN, uncontrolled pain on PACU admission, Starting on Thu06/03/21 at 1208, For 4 doses, Phase I, Maximum dosage of fentanyl of 100 mcg for arrival to PACU, then proceed to PACU 1st line analgesic., Indications: PainIndications:Pain Given 06/03/2021 12:30 PM CARDIAC CATHETERIZATION TECHNICIAN 25 mcg Given 06/03/2021 12:25 PM CARDIAC CATHETERIZATION TECHNICIAN 25 mcg gabapentin (NEURONTIN) capsule 200 mg 200 mg, oral, Once, On Thu06/03/21 at 0915, For 1 dose, Pre-Op, Indications: Pre-Emptive AnalgesiaIndications:Pre-Emp tive Analgesia Given 06/03/2021 9:25 AM CARDIAC CATHETERIZATION TECHNICIAN 200 mg Lactated Ringer's (LR) infusion 30 mL/hr, intravenous, Continuous, Starting on Thu06/03/21 at 0915, Pre-Op Rate/Dose Verify 06/03/2021 10:32 AM CARDIAC CATHETERIZATION TECHNICIAN 30 mL/hr New Bag 06/03/2021 9:25 AM CARDIAC CATHETERIZATION TECHNICIAN 30 mL/hr 30 mL/hr lidocaine PF (XYLOCAINE) [...] dose., Indications: PainIndications:Pain Given 06/03/2021 1:47 PM CARDIAC CATHETERIZATION TECHNICIAN 5 mg Given 06/03/2021 12:27 PM CARDIAC CATHETERIZATION TECHNICIAN 5 mg sodium chloride 0.9% flush 0.5-20 mL 0.5-20 mL, intra-catheter, As needed, line care, Starting on Thu06/03/21 at 0835, Pre-Op, Flush volume based on line type and size. Flush before and after each use. documented in this encounter Discontinued Medications Medication Sig Discontinue Reason Start Date End Da te methylPREDNISolone (MEDROL DOSEPACK) 4 mg Dosepack Take 4 mg by mouth as needed (for Pseudomonas respirtory infection flare up) Take as directed on package Stop Taking at Discharge 06/03/2021 documented as of this encounter Active and Recently Administered Medications Times are shown in CARDIAC CATHETERIZATION TECHNICIAN. Scheduled Medication Order 06/01/2021 06/02/2021 06/03/2021 acetaminophen [...] %) nebulizer solution 2.5 mg 1 06/03/2021 bupivacaine-EPINEPHrine (MAR KADE with EPI) 0.5 %-1:200,000 preservative free injection 1 06/03/2021 ceFAZolin (ANCEF) 2,000 mg/2 0 mL in sterile water (premix) 2,000 mg 1 06/03/2021 dextrose (D10W) 10% bolus 250 mL 06/04/19 diphenhydrAMINE (BENADRYL) i njection 12.5 mg 1 06/03/2021 haloperidol (HALDOL) injection 1 mg 1 06/03 HYDROmorphone (DILAUDID) injection 0.2 mg 1 06/03/2021 HYDROmorphone (DILAUDID) injection 0.4 mg 1 06/03/2021 insulin lispro (HumaLOG, ADM ELOG) 100 unit/mL injection 1-5 Units 1 06/03/2021 labetaloL (NORMODYNE,TRANDAT E) injection 5 mg 06/03/2021 lidocaine PF (XYLOCAINE) 10 mg/mL (1 %) preservative free injection 2-10 mg 1 06/03/2021 meperidine (DEMEROL) preserv ative free injection 12.5 mg 1 06/03/2021 naloxone (NARCAN) 0.4 mg/mL injection 0.04-0.4 mg 1 06/03/2021 ondansetron (ZOFRAN) injection 4 mg 1 06/03 racepinephrine (ASTHMANEFRIN ) 2.25 % nebulizer solution 0.5 mL 1 06/03/2021 sodium chloride 0.9% flush 0.5-20 mL 1 09/2021 sodium chloride 0.9% irrigation 1 thrombin-recombinant 5,000 u nit topical solution 1 06/03/2021 Diet Count Last Ordered Date First Orde red Date ADULT DIET 1 06/03/2021 Nursing Count Last Ordered Date First Orde red Date ACTIVITY 2 06/03/2021 DISCHARGE INSTRUCTIONS 2 06/03/2021 NURSING COMMUNICATION 4 06/03/2021 PATIENT MAY SHOWER 1 06/03/2021 Discharge Count Last Ordered Date First Orde red Date DISCHARGE PATIENT 1 06/03/2021 documented in this encounter Care Teams Quenching Machine Operator Relationship Specialty Start Date End Date Anil Gupta MD [address] [place] [address] PCP - General Internal Medicine 04/19/21 Anil Gupta MD [address] [place] [address] Internal Medicine 04/19/21 documented as of this encounter
--- OUTSIDE RECORDS SUMMARY | 2024-03-19 07:31 | XMS_ITS | Encounter Summary ---
Author Organization [facility] Address [address] [place] [address] Care Team Providers Care Assembly Line Driver Name Role Phone Anil Gupta MD Primary Care Provider [phone] Anil Gupta MD Unavailable [phone] Reason for Visit * Auth/Cert Specialty Diagnoses / Procedures Referred By Contac t Referred To Contact Diagnoses Lumbar radiculopathy Lumbar radiculopathy [M54.16] Procedures KS ARTHRODESIS POSTERIOR INTERBODY LUMBAR KS POSTERIOR NON-SEGMENTAL INSTRUMENTATION KS INSJ BIOMCHN DEV INTERVERTEBRAL DSC SPC W/ARTHRD KS ALLOGRAFT FOR SPINE SURGERY ONLY MORSELIZED KS AUTOGRAFT SPINE SURGERY LOCAL FROM SAME INCISION KS BONE MARROW ASPIRATION BONE GRFG SPI SURG ONLY KS LAMINEC/FACETECT/FORAMIN,LUMBAR 1 SEG L5-S1 Transforaminal Lumbar Interbody Fusion vs Posterior Lumbar Fusion Referral ID Status Reason Start Date Expiration Date Visits Re quested Visits Authorized [id number] 1 1 Encounter Details Date Type Department Care Team (Late st Contact Info) Description 10/11/2021 7:30 AM CDT - 10/11/2021 11:00 AM CDT Surgery [facility] Operating Room [address] [place] [address] Jayy Granger MD [address] [facility] [address] [place] [address] L5-S1 Transforaminal Lumbar Interbody Fusion Surgery Details Date/Time Status Location OR Service Patient Class Case Class Case Type Trauma Case? 10/11/2021 7:30 AM Posted [facility] OPERATING ROOM OR Orthopaedic Spine Outpatient in Bed Elective Panel 1 Procedure LRB Anes Op Region Wound Class Comments L5-S1 Transforaminal Lumbar Interbody Fusion N/A General Spine Lumbar Class I - Clean [employer], InQu, Bone Marrow Aspiration Kit, SSEP, (KB) Rep. confirmed Surgeon Surgeon Role Service Panel Milad Garcia MD Assisting Orthopaedics 1 Jayy Granger MD Primary Orthopaedic Spine 1 [...] on file Legal Sex Male 12:56 PM EXTERN Gender Identity Male 05/23/2021 12:08 PM EXTERN Sexual Orientation Straight 05/23/2021 12 :08 PM EXTERN documented as of this encounter Last Filed Vital Signs Vital Sign Reading Time Taken Comments Blood Pressure 111/77 10/11/2021 11:00 AM CDT Pulse 73 10/11/2021 11:00 AM CDT Temperature 36.1 ??C (96.9 ??F) 10/11/2021 1 0:50 AM CDT Respiratory Rate 16 10/11/2021 11:0 0 AM CDT Oxygen Saturation 94% 10/11/2021 11: 00 AM CDT Inhaled Oxygen Concentration - - [...] Care Physician at Discharge: Anil Gupta MD [phone] Admission Date: 10/11/2021 Discharge Date: 10/12/2021 Admission Location: [facility] Problems/Diagnoses: Principal Problem: Lumbar radiculopathy Resolved [...] 11:00 AM NURSE, BJCMG ADV SPN 269C [id number] PSA 11/20/2021 11:00 AM Jayy Granger MD [id number] PSA documented in this encounter Medications at [...] by mouth daily 03/17/2018 3 nebulizer accessories [facility] [place] See Instructions, 1 each, 1 each, Route to Pharmacy Electronically, [facility]/pharmacy #[id number], [id number], Instructions Replace Required Details, Supply 12/12/2019 [...] Home Mobility Equipment None Home ADL Equipment Rn Examiner;Sock aid;Long-handled shoehorn;Long handled sponge Additional Comments pt plans on installing grab bars Prior Function Level of [place] Independent with ADLs;Independent functional transfers;Independent with homemaking with ambulation Lives With Spouse Receives Help From Spouse/Significant other Driving Yes ADL Assistance Independent Instrumental ADL (IADL) Assistance Independent 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 Leisure (hiking, woodworking, forging) Fall within the [...] of adaptive equipment LE Dressing: Equipment Utilized Rn Examiner;Sock aid Toileting Toileting: Where assessed Toilet Toileting: [...] shower for safety Prior Function Level of [place] Independent with ADLs;Independent functional transfers;Independent with ambulation;Independent [...] respiratory infection comes and goes - on petroleum terminal 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 Postoperative Plan: No postoperative mechanical ventilation intended. Patient's planned disposition post procedure is Outpatient. Informed Consent: Discussed plan with PROCESS ENVIRONMENTAL TECHNICIAN. Anesthesia plan and risks discussed with [...] in this encounter Nursing Notes * Eileen John, ZEYNEP - 10/12/2021 1:23 PM CDT 10/18/21 1350 [...] Progressing * Plan of Care - Micaela Clay RRT - 10/11/2021 8:32 PM CDT Lung [...] and Radha 2. Posterior non-segmental instrumentation (corelink Lawrence), Dr. Granger. . 3. L5 wide bilateral lumbar laminectomy, facetectomy, foraminotomy for decompression with reexploration and decompression right L5S1, Dr. Garcia. 4. Placement of 11 mm, 12 degree interbody device, Dr. Granger 5. Use of morselized autograft and InQu Bone white hat hacker, Dr. Granger. 6. Bone marrow aspirate from [...] lumbar decompression and fusion. Risks, alternatives and benefits of the procedure including, but not limited to bleeding, infection, coma, , heart attack, stroke, paralysis, loss of vision, CSF leak, spinal instability requiring future operations, failure to relieve symptoms, bowel and bladder dysfunction, and sexual dysfunction. He understands and wishes toproceed. Procedure: After identifying, marking and examining Mr. [...] continuous bi-directional remote audio/visual communication between the bacteriology technician, reader andmyself throughout the entire procedure. [...] The BMA was combined with InQu bone white hat hacker and morselized autograft. It was packed in [...] epifascial drain was placed prior to closure. Clarence were used to approximate the skin. A suction dressing was placed.The patient tolerated the procedure wellwithout complication and was discharged in stable condition to the Post Anesthesia Care Unit with an unchanged neurological exam. Mansi, Dr. Granger, and Dr. Garcia were present [...] signed by: Jt Alvares M.D. us Jayy MCKEONG XR PROCEDURES Final Resul t * XR [...] 6:28 AM CDT) ABO Rh A Negative [facility] OTHER 10/11/2021 6:28 AM CDT 10/11/2021 6:47 AM CDT us Scarlet Obrien NP LAB BLOOD ORDERABLES Fi nal Result [facility] [address] Department of Laboratories [place], [place] [id number] documented in this encounter Visit Diagnoses Diagnosis [...] 2 puff, inhalation, Every 6 hours PRN (correspondence representative), wheezing, Starting on Thu10/11/21 at 1605 budesonide-formoteroL (SYMBICORT) 160-4.5 mcg/actuation inhaler 2 puff 2 puff, inhalation, 2 times daily (correspondence representative), First dose (after last modification) on Thu10/11/21 at 2000, Rinse mouth with water after use. Do not swallow., I /authorizing provider attest that the patient meets the approved [facility] Use Criteria: Yes Given 10/12/2021 9:15 AM CDT 2 puffs Given 10/11/2021 8:27 PM CDT 2 puffs bupivacaine-EPINEPHrine (MARCAINE with EPI) 0.5 %-1:200,000 preservative free injection As needed, Starting on Thu10/11/21 at 0959, Intra-Op Given 10/11/2021 9:59 AM CDT 10 mL Surgical Site gabapentin (NEURONTIN) capsule 200 mg 200 mg, oral, Once, On Thu10/11/21 at 0645, For 1 dose, Pre-Op, Indications: Pre-Emptive AnalgesiaIndications:Pre-Emptive Analgesia Given 10/11/2021 6:33 AM CDT 200 mg HYDROmorphone (DILAUDID) injection 0.4 mg 0.4 [...] infusion (premix) 1.5 mg/kg/hr ? 77.6 kg [place] weight (14.55 mL/hr), 8 mg/mL, intravenous, Continuous, Starting on Thu10/11/21 at 0800, Until Thu10/12/21 at 1723, Phase I & Post-op Floor, [...] PM CDT 10 mL sodium chloride 0.9% irrigation As needed, Starting on Thu10/11/21 at 0828, Intra-Op Given 10/11/2021 8:29 AM CDT 250 mL Surgical Site Given 10/11/2021 8:28 AM CDT 1,000 mL Pizarro rgical Site sodium chloride 0.9% with potassium chloride 20 mEq/L infusion (premix) 75 mL/hr, intravenous, Continuous, Starting on Thu10/11/21 at 1645, Discontinue when tolerating PO (500 mL in 8 hours). New Bag 10/11/2021 5:05 PM CDT 75 mL/hr 75 mL/hr thrombin-recombinant 5,000 unit topical solution As needed, Starting on Thu10/11/21 at 0829, Intra-Op Given 10/11/2021 8:29 AM CDT 5,000 Units Surgical Site valACYclovir (VALTREX) tablet 500 mg 500 mg, oral, Daily, First dose on Thu10/11/21 at 1645, Indications: Prophylaxis, MedicalIndications:Prophy laxis, Medical Given 10/12/2021 9:50 AM CDT 500 mg vancomycin 1500 mg/250 mL in sodium chloride 0.9% (premix) 1,500 mg 1,500 mg, intravenous, Administer over 90 Minutes, Once, On Thu10/11/21 at 0645, For 1 dose, Pre-Op, Administer within 120 minutes of incision., Indications: Prophylaxis, SurgicalIndications:Proph ylaxis, Surgical New Bag 10/11/2021 6:36 AM CDT 1,500 mg vancomycin 1500 mg/250 mL in sodium chloride 0.9% (premix) 1,500 mg 1,500 mg, intravenous, Administer over 90 Minutes, Once, On Thu10/11/21 at 1830, For 1 dose, Administer 12 hours after pre-operative dose., Indications: Prophylaxis, SurgicalIndications:Proph ylaxis, Surgical New Bag 10/11/2021 6:31 PM CDT 1,500 mg documented in this encounter Active and Recently Administered Medications Times are shown in CDT. Scheduled Medication Order 10/10/2021 10/11/2021 10/12/2021 acetaminophen (TYLENOL) tablet 1,000 mg (COMPLETED) 1,000 mg, oral, Once, On Thu10/11/21 at 0645, For 1 dose, Pre-Op, Indications: Pre-Emptive Analgesia 0633 (Given - Provider: Ursula Valle RN) acetaminophen (TYLENOL) tablet 1,000 mg 1,000 mg, oral, Every 6 hours scheduled, First dose on Thu10/11/21 at 1645, Indications: Pain 1716 (Given - Provider: Lacy Ramos, RN)2200 (Given - Provider: Kan Escamilla) 0236 (Given - Provider: Kan Escamilla)0950 (Given - Provider: Cara Singer, ZEYNEP) budesonide-formoteroL (SYMBICORT) 160-4.5 mcg/actuation inhaler 2 puff 2 puff, inhalation, 2 times daily (correspondence representative), First dose (after last modification) on Thu10/11/21 at 2000, Rinse mouth with water after use. Do not swallow., I /authorizing provider attest that the patient meets the approved [facility] Use Criteria: Yes 2026 (Given - Provider: Micaela Clay RRT) 09 (Given - Provider: Trinidad Christian RRT) fluticasone [...] daily, First dose on Thu10/11/21 at 2100 220 (Given - Provider: Kan Escamilla) 0900 (Due) pregabalin (LYRICA) capsule 150 mg 150 mg, oral, 3 times daily, First dose on Thu10/11/21 at 1645 1716 (Given - Provider: Lacy Ramos RN)2202 (Not Given - Provider: Kan Escamilla - Reason: Patient/family refused) 0900 (Due) rOPINIRole (REQUIP) tablet 2 mg 2 mg, oral, Nightly, First dose on Thu10/11/21 at 2100 2010 (Given - Provider: Kan Escamilla) sodium chloride 0.9% flush 0.5-20 mL 0.5-20 mL, intra-catheter, Every 8 hours scheduled, First dose on Thu10/11/21 at 1645, Flush volume based on line type and size. , Indications: Flushing 1716 (Given - Provider: Lacy Ramos RN)2202 (Not Given - Provider: Kan Escamilla - [...] infusion (premix) 1.5 mg/kg/hr ? 77.6 kg [place] weight (14.55 mL/hr), 8 mg/mL, intravenous, Continuous, [...] 2 puff, inhalation, Every 6 hours PRN (correspondence representative), wheezing, Starting on Thu10/11/21 at 1605 bisacodyL [...] Pain 1721 (Given - Provider: Keisha Calhoun RN)1819 (Not Given - Provider: Lacy Ramos, RN - Reason: Other - Comment: gave [...] 160-4.5 mcg/actuation inhaler 2 puff 1 10/11/2021 Carrier Fluids for Secondary Infusion - 0.9% Sodium Chloride 2 10/11/2021 dextrose (D10W) 10% bolus 250 mL 1 10/12/19 diphenhydrAMINE (BENADRYL) i njection 12.5 mg 1 10/11/2021 fentaNYL (SUBLIMAZE) preserv ative free injection 25 mcg 1 10/11/2021 fluticasone propionate (FLON ASE) 50 mcg/actuation nasal spray 4 spray 10/11/2021 haloperidol (HALDOL) injection 1 mg 1 10/11 HYDROmorphone (DILAUDID) injection 0.2 mg 10/11/2021 HYDROmorphone (DILAUDID) injection 0.5 mg 10/11/2021 insulin lispro (HumaLOG, ADM ELOG) 100 unit/mL injection 1-5 Units 10/11/2021 labetaloL (NORMODYNE,TRANDAT E) injection 5 mg 10/11/2021 Lactated Ringer's (LR) infusion 1 lidocaine in dextrose 5% 2 g /250 mL (8 mg/mL) infusion (premix) 10/11/2021 lidocaine PF (XYLOCAINE) 10 mg/mL (1 %) preservative free injection 2-10 mg 10/11/2021 meperidine (DEMEROL) preserv ative free injection 12.5 mg 10/11/2021 naloxone (NARCAN) 0.4 mg/mL injection 0.04-0.4 mg 10/11/2021 ondansetron (ZOFRAN) injection 4 mg 10/11 oxyCODONE (ROXICODONE) tablet 5 mg 2021 polyethylene glycol (MIRALAX) packet 17 g 10/11/2021 promethazine (PHENERGAN) tablet 12.5 mg 1 0 10/11/2021 racepinephrine (ASTHMANEFRIN ) 2.25 % nebulizer solution 0.5 mL 10/11/2021 sodium chloride 0.9% flush 0.5-20 mL 3 09/27 tiZANidine (ZANAFLEX) tablet 4 mg 1 022 [...] 10/11/2021 documented in this encounter Care Teams Assembly Line Driver Relationship Specialty Start Date End Date Anil Gupta MD [address] [place] [address] PCP - General Internal Medicine 04/19/21 Anil Gupta MD [address] [place] [address] Internal Medicine 04/19/21 documented as of this encounter
--- OUTSIDE RECORDS SUMMARY | 2024-03-19 07:31 | XMS_ITS | Encounter Summary ---
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 documented in this encounter Plan of Treatment Not on file documented as of this encounter Visit Diagnoses Diagnosis Lumbar radiculopathy- Primary Thoracic or lumbosacral neuritis or radiculitis, unspecified documented in this encounter Care Teams Partnership Development Manager Relationship Specialty Start Date End Date Anil Gupta MD [address] [place] [address] PCP - General Internal Medicine 04/19/21 Anil Gupta MD [address] [place] [address] Internal Medicine 04/19/21 documented as of this encounter
--- OUTSIDE RECORDS SUMMARY | 2024-03-19 07:31 | XMS_ITS | Encounter Summary ---
Author Organization [facility] Address 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 Gender Identity Male 05/23/2021 12:08 PM HEAD INSULATION BOARD SAW OPERATOR Sexual Orientation Straight 05/23/2021 12 :08 PM HEAD INSULATION BOARD SAW OPERATOR documented as of this encounter Progress Notes * Rachel Mims - 05/30/2021 9:38 AM CST Patient drop off MRI lumbar spine disc INSULATION BOARD SAW OPERATOR documented in this encounter Plan of Treatment Not on file documented as of this encounter Visit Diagnoses Not on filedocumented in this encounter Care Teams Compliance Mgr Relationship Specialty Start Date End Date Anil Gupta MD [address] [place] [address] PCP - General Internal Medicine 04/19/21 Anil Gupta MD [address] [place] [address] Internal Medicine 04/19/21 documented as of this encounter
--- OUTSIDE RECORDS SUMMARY | 2024-03-19 07:31 | XMS_ITS | Encounter Summary ---
Author Organization [facility] Address [address] [place] [address] Phone Care Team Providers Care Business Services Intern Name Role Phone Anil Gupta MD Primary Care Provider [phone] Anil Gupta MD Unavailable [phone] Encounter Details Date Type Department Care Team (Late st Contact Info) Description 04/19/2021 Telephone [facility] Scheduling [address] [place] [address] Brittnee Corrigan Social History Tobacco Use Types Packs/Day Years [...] on file Legal Sex Male 12:56 PM COMMUNITY REPRESENTATIVE Gender Identity Male 05/23/2021 12:08 PM COMMUNITY REPRESENTATIVE Sexual Orientation Straight 05/23/2021 12 :08 PM COMMUNITY REPRESENTATIVE documented as of this encounter Miscellaneous Notes * Telephone Encounter - Zohreh Rush - 04/23/2021 9:42 AM CST Fax from [facility] stating they do not have testing for this patient on the service dates requested. UNITY REPRESENTATIVE * Telephone Encounter - Brittnee Corrigan MA - 04/19/2021 10:52 AM CST LUM APPT WITH EC ON 05/27 PT AWARE OF 45 MIN ARRIVAL. [facility] FOR INJ REPORT SENT TO [facility] FAX NUMBER [phone]. RQST SENT TO [facility] FOR SPINE/LUMBAR MRI REPORT & IMAGING DONE ON 03/13/21 & 03/19/21. [facility] FAX NUMBER IS [phone]. UNITY REPRESENTATIVE * Telephone Encounter - Brittnee Corrigan MA - 04/19/2021 10:09 AM CST Department of Neurological Surgery at [facility] Spine Intake 04/19/21 Douglas Horn 1950 [id number] Anil Gupta MD Referring physician SELF Referred to: FIRST [facility]AIL[facility] Second Opinion: No Diagnosis: OSTEOARTHRITIS Location (Spinal Area): Lumbar Incontinence: No Weakness: Yes RIGHT LEG & HIP Numbness: Yes RIGHT LEG TINGLING & PAINFUL Duration of symptoms: 6 MONTHS HT: 6'0 WT: 190 BMI: 25.8 Prior spine surgery: NO Physical therapy: YES/AT [facility]/ 3MOS AGO Injections: YES/IN February 2021/[facility] Are you a current smoker: No Insurance: MEDICARE & AETNA Litigation: NO Imaging Done (type, location, date): Yes [email or web address] PT TO BRING CD AND ARRIVE 45 MINS EARLY UNITY REPRESENTATIVE documented in this encounter Plan of Treatment Not on file documented as of this encounter Visit Diagnoses Not on filedocumented in this encounter Care Teams Business Services Intern Relationship Specialty Start Date End Date Anil Gupta MD [address] [facility] [address] [place] [address] PCP - General Internal Medicine 04/19/21 Anil Gupta MD [address] [facility] [facility] [address] [facility] [address] [place] [address] Internal Medicine 04/19/21 documented as of this encounter
--- OUTSIDE RECORDS SUMMARY | 2024-03-19 07:31 | XMS_ITS | Encounter Summary ---
Author Organization [facility] Address [address] [place] [address] Care Team Providers Care Explosive Operator Grenade Name Role Phone Sukhdev Santos MD Primary Care Provider [phone] Encounter Details Date Type Department Care Team (Latest Contact Info) Description 10/04/2020 12:05 AM CDT - 10/04/2020 11:59 PM CDT Hospital Encounter [facility] - Imaging [phone] Discharge Disposition: Discharge to home or self care Social History Tobacco Use Types Packs/Day Years Used Date Smoking Tobacco: Never Smokeless Tobacco: Never Alcohol Use Standard Drinks/Week Comments Yes 0 (1 standard drink = 0.6 oz pur e alcohol) Sex and Gender Information Value Date Recorded Sex Assigned at Not on file Legal Sex Male 12:56 PM FEED ADVISER Gender Identity Male 05/23/2021 12:08 PM FEED ADVISER Sexual Orientation Straight 05/23/2021 12 :08 PM FEED ADVISER documented as of this encounter Medications at [...] Route to Pharmacy Electronically, [facility]/pharmacy #[id number], [id number], Instructions Replace Required Details, Supply 12/12/2019 [...] MRI TRANSFER OF OUTSIDE FILMS Routine 10/04/2020 12:05 AM CDT documented in this encounter Results * MRI Outside Reference (10/04/2020 12:05 AM CDT) Narrative RAD_PACS_OUTSIDE_FILM_[facility] - 05/31/2021 11:25 AM FEED ADVISER This order has been auto-finalized and does not contain a result. us Osmel Mittal MD IMG MRI PROCEDURES Final Resu lt RAD_PACS_OUTSIDE_FILM_[facility] documented in this encounter Visit Diagnoses Not on filedocumented in this encounter Care Teams Explosive Operator Grenade Relationship Specialty Start Date End Date Sukhdev Santos MD PCP - General Internal Medicine 04/01/18 04/17/21 documented as of this encounter
--- OUTSIDE RECORDS SUMMARY | 2024-03-19 07:31 | XMS_ITS | Encounter Summary ---
Author Organization [facility] Healthcare Address [address] [place] [address] Care Team Providers Care Dental Technician Name Role Phone Anil Gupta MD Primary Care Provider [phone] Anil Gupta MD Unavailable [phone] Reason for Visit * Auth/Cert Specialty Diagnoses / Procedures Referred By Contac t Referred To Contact Diagnoses Lumbar radiculopathy Lumbar radiculopathy [M54.16] Procedures DC LAMNOTMY INCL W/DCMPRSN NRV ROOT 1 INTRSPC LUMBR L5-S1 Right Lumbar Microdiscectomy Referral ID Status Reason Start Date Expiration Date Visits Re quested Visits Authorized [id number] 1 1 Encounter Details Date Type Department Care Team (Late st Contact Info) Description 06/03/2021 10:32 AM DINNER COOK Anesthesia Event [facility] Operating Room [address] [place] [address] Zachary Acevedo MD [address] [facility] [place] [address] Sobia Gamboa NP [address] [place] [address] Anesthesia Record Procedure Summary Procedure Name Responsible Anesthesiologist Anesthesia Start Time Anesthesia Stop Time L5-S1 Right Lumbar Microdiscectomy (Right: Back) Zachary Acevedo MD 06/03/21 1032 06/03/21 1205 Events Date Time Event Comment 06/03/2021 0940 1032 An Start 1035 An Start Data 1036 In Room 1040 An Induction The patient was reevaluated immediately before moderate or deep sedation use and before anesthesia induction. 1043 An Intubation 1046 Quick Note JH for DN lunch 1047 Anesthesia Ready 1101 Proc Start 1101 Incision Start 1103 An Data Art HR erroneous, p ulse correct 1116 Quick Note DN for JH 1150 Proc Fin 1154 An Extubation 1156 an stop data 1156 Out of Room 1202 Handoff to RN I completed my handoff [...] disposition at the time of handoff: PACU 1205 An Stop Meds Name Total midazolam 1 mg fentaNYL 100 mcg lidocaine (CARDIAC) syringe 2 % 5 mL propofol 426.01 mg succinylcholine 100 mg phenylephrine 100 mcg/mL 50 mcg ondansetron 4 mg dexamethasone 4 mg/ml 10 mg ceFAZolin (ANCEF) 2,000 mg/20 mL in ster ile water (premix) 2,000 mg 2,000 mg Lactated Ringer's (LR) infusion 900 mL * Agents Name O2 Air Sevoflurane Desflurane Inspired Desflurane Inspired Sevoflurane * Blood No blood administrations on file. Lines, Drains, and Airways Type Details Placement Removal Peripheral IV Placement Date: 06/03/21; Placement Time: 0910; Catheter Size: 20 G; Orientation: Left, Posterior; Location: Wrist; Site Prep: Chlorhexidine; Inserted by: Chery; Insertion Attempts: 1; Patient Tolerance: Tolerated well; Removal Date: 06/03/21; Removal Time: 1332 06/03/21 0910 by Devin Gottlieb RN 06/03/21 1332 by Eileen Garcia RN ETT Placement Date: 06/03/21; Placement Time: 1118 (created via procedure documentation); Mask Ventilation: 1; Technique: Direct laryngoscopy; Type: ETT - single; Single Lumen Tube Size: 8 mm; Cuffed: Yes; Laryngoscope: Renaldo; Blade Size: 4; Location: Oral; Grade View: Grade IIa; Insertion Attempts: 1; Placement Verification: Auscultation, Capnometry; Removal Date: 06/03/21; Removal Time: 1154 06/03/21 1118 by Diana Rojo CRNA 06/03/21 1154 by Diana Rojo CRNA RETIRED Surgical Site 06/03/21; 1119; Ba ck; 10/11/21; 1033 (previous site) 06/03/21 1119 by Eileen Dumont RN 10/11/21 1033 by Aashish Johnson RN documented in this encounter Social History [...] on file Legal Sex Male 12:56 PM DINNER COOK Gender Identity Male 05/23/2021 12:08 PM DINNER COOK Sexual Orientation Straight 05/23/2021 12 :08 PM DINNER COOK documented as of this encounter OR Notes * Anesthesia Postprocedure Evaluation - Zachary Acevedo MD - 06/03/2021 1:26 PM CST Patient: Lizette Pérez Procedure Summary Date: 06/03/21 Room / Location: [facility] OPERATING [facility] 05 / [facility] OPERATING ROOM Anesthesia Start: 1032 Anesthesia Stop: 1205 Procedure: L5-S1 Right Lumbar Microdiscectomy (Right Back) Diagnosis: Lumbar radiculopathy (Lumbar radiculopathy [M54.16]) Surgeons: Jayy Granger MD Responsible Provider: Zachary Acevedo MD Anesthesia Type: general ASA Status: 2 Anesthesia Type: general Last vitals BP 121/79 Pulse 56 Temp (!) 35.4 ??C (95.756 ??F) Resp 12 SpO2 95% Anesthesia Post Evaluation Patient location during evaluation: PACU Patient participation: complete - patient participated Level of consciousness: fully awake Pain management: satisfactory to patient Airway patency: adequate Evidence of recall: no Cardiovascular status: acceptable and hemodynamically stable Respiratory status: acceptable Hydration status: acceptable Pt is: normothermic Nausea/Vomiting status: none No complications documented. ER COOK * Anesthesia Procedure Notes - Diana Rojo CRNA - 06/03/2021 11:17 AM CSTAssociated Order(s): Airway Airway Patient location: OR Urgency: elective Indications for airway management: anesthesia Difficult airway: no Staff: Supervising provider: Zachary Acevedo MD Placed by: HISTORIC PRESERVATIONIST: Diana Rojo CRNA Emergent airway documentation: Risks and benefits discussed: yes Consent obtained: yes Consent given by: patient Airway prep: Preoxygenated: yes Patient position: sniffing Mask difficulty assessment: 1 - vent by mask Sedation level during airway: GA Final airway details: Final airway type: endotracheal airway Tube type: ETT ETT size: 8.0 mm Cuffed: yes Technique used for successful ETT placement: direct laryngoscopy Insertion site: oral Blade type: Renaldo Blade size: 4 Cormack-Lehane (direct): grade IIa - partial view of glottis Cuff volume: 9 mL Cuff inflated with: air ETT to lips: 23 cm Placement verified by: auscultation and CO2 detection Airway secured with: silk tape Number of attempts: 1 ER COOK * Anesthesia Preprocedure Evaluation - Zachary Acevedo MD - 05/29/2021 9:25 AM CST Images from the original note were not included. Anesthesia Evaluation Lizette Pérez is a 71 y.o. male who [facility] preoperative evaluation of L5-S1 Right Lumbar Microdiscectomy with Jayy Granger MD on 06/03/2021. Patient to report for COVID testing either 05/30, 05/31 at [facility]. A copy of COVID-19 pre-collection instructions was provided to the patient. COVID-19 testing order was placed in [facility]. Procedure(s): L5-S1 Right Lumbar Microdiscectomy Pre-Op Diagnosis Codes: * Lumbar radiculopathy [M54.16] Results for LIZETTE PÉREZ ( ) as of 06/03/2021 09:34 Ref. Range 05/30/2021 13:16 COVID-19 RNA Unknown Not Detected NPO Status Date of Last Liquid: 06/02/21 Time of Last Liquid: 2299 Date of Last Solid: 06/02/21 Time of Last Solid: 2299 HISTORY Past Medical History Information obtained from: [...] Chronic pain - back pain. 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 Mendoza at [facility]. He received five rounds of EDTA chelation [...] respiratory infection comes and goes - on chcf antibiotics to prevent further mucous build up ??? Toxic effect of mercury and its compounds, accidental (unintentional), initial encounter History reviewed. No pertinent surgical history. No Known Allergies Med List Status: Nurse Complete Set By: Eileen John RN at 05/30/2021 10:05 AM Taking? Last Dose Start Date End Date Provider albuterol HFA (PROVENTIL HFA,VENTOLIN HFA,PROAIR HFA) 90 mcg/actuation inhaler -- -- Provider, HistoricalMD azithromycin (ZITHROMAX) 500 mg tablet -- -- Provider, MD Carin budesonide-formoteroL (SYMBICORT) 160-4.5 mcg/actuation inhaler -- -- Provider, MD Carin celecoxib (CeleBREX) 200 mg capsule -- -- Provider, MD Carin fluticasone propionate (FLONASE) 50 mcg/actuation nasal spray -- -- Provider, MD Carin ipratropium (ATROVENT) 42 mcg (0.06 %) nasal spray -- -- Provider, MD Carin levoFLOXacin (LEVAQUIN) 500 mg tablet -- -- Provider, MD Carin LYRICA 150 mg capsule 03/17/18 -- Provider, MD Carin methylPREDNISolone (MEDROL DOSEPACK) 4 mg Dosepack -- -- Provider, MD Carin rOPINIRole (REQUIP) 2 mg tablet -- -- Provider, MD Carin tiZANidine (ZANAFLEX) 4 mg tablet -- -- Provider, HistoricalMD valACYclovir (VALTREX) 500 mg tablet -- -- [...] SpO2: 95% COVID-19 No results found for: [id number] No labs required per anesthesia guidelines ASSESSMENT [...] 2 Flynn Activity Status Index Score: 15.3 DOS Physical Exam Medical history, medications, and allergies reviewed. Attestation: With today's edits, I endorse the findings of the anesthesia pre-evaluation assessment dated: 05/29/2021. Airway Exam: Mallampati: I Cervical ROM: FROM Cardiovascular Exam: Rate: regular Rhythm: regular Pulmonary Exam: LCTA, bilat Dental Exam: Appears intact Current state: Patient's current state is cooperative and interactive. Anesthesia Plan ASA 2 My patient is approved for the Anesthesia Controlled Medication protocol when under care of a HISTORIC PRESERVATIONIST Planned anesthesia: General Team communication plan: oral ET tube Induction: Induction: intravenous. Postoperative Plan: Postoperative administration opioids intended. No postoperative mechanical ventilation intended. Patient's planned disposition post procedure is Outpatient. Informed Consent: Anesthesia plan and risks discussed with patient. Consent and Attending signature: I and/or my designee have discussed the anesthesia plan, benefits, possible alternatives, parental presence at time of induction (if indicated), and clinically relevant risks that may include dental injury, unintentional awareness, and/or other complications. The patient and/or parent/legal guardian understand, and agree to proceed. All questions answered. ER COOK ER COOK documented in this encounter Plan of Treatment Not on file documented as of this encounter Procedures Procedure Name Priority Date/Time Associated Diagnosis Comments DC AN PROCEDURE PLACEHOLDER Routine 06/03/2021 11:17 AM DINNER COOK DC AN ELECTIVE ENDOTRACHEAL AIRWAY Routine 06/03/2021 11:17 AM DINNER COOK documented in this encounter Results * DC AN ELECTIVE ENDOTRACHEAL AIRWAY, DC AN PROCEDURE PLACEHOLDER (06/03/2021 11:17 AM DINNER COOK) Narrative Diana Rojo CRNA - 06/03/2021 11:17 AM DINNER COOK Diana Rojo CRNA ? 06/03/2021 11:18 AM Airway Patient location: OR Urgency: elective Indications for airway management: anesthesia Difficult airway: no Staff: Supervising provider: Zachary Acevedo MD Placed by: HISTORIC PRESERVATIONIST: Diana Rojo CRNA Emergent airway documentation: Risks and benefits discussed: yes Consent obtained: yes Consent given by: patient Airway prep: Preoxygenated: yes Patient position: sniffing Mask difficulty assessment: 1 - vent by mask Sedation level during airway: GA Final airway details: Final airway type: endotracheal airway Tube type: ETT ETT size: 8.0 mm Cuffed: yes Technique used for successful ETT placement: direct laryngoscopy Insertion site: oral Blade type: Renaldo Blade size: 4 Cormack-Lehane (direct): grade IIa - partial view of glottis Cuff volume: 9 mL Cuff inflated with: air ETT to lips: 23 cm Placement verified by: auscultation and [...] within 60 minutes of incision., Indications: Prophylaxis, SurgicalIndications:Prophylaxis , Surgical Given 06/03/2021 10:44 AM DINNER COOK 2,000 mg dexAMETHasone (DECADRON) 4 mg/mL injection intravenous, Administer over 2 Minutes, As needed, Starting on Thu06/03/21 at 1105, Anesthesia Intra-op Given 06/03/2021 11:05 AM DINNER COOK 10 mg fentaNYL (SUBLIMAZE) preservative free injection intravenous, As needed, Starting on Thu06/03/21 at 1040, Anesthesia Intra-op Given 06/03/2021 11:50 AM DINNER COOK 25 mcg Given 06/03/2021 10:40 AM DINNER COOK 75 mcg Lactated Ringer's (LR) infusion 30 mL/hr, intravenous, Continuous, Starting on Thu06/03/21 at 0915, Pre-Op Rate/Dose Verify 06/03/2021 10:32 AM DINNER COOK 30 mL/hr New Bag 06/03/2021 9:25 AM DINNER COOK 30 mL/hr 30 mL/hr lidocaine (cardiac) (XYLOCAINE) preservative free injection intravenous, As needed, Starting on Thu06/03/21 at 1040, Anesthesia Intra-op, Indications: Ventricular ArrhythmiasIndications:Ve ntricular Arrhythmias Given 06/03/2021 10:40 AM DINNER COOK 5 mL midazolam (VERSED) 1 mg/mL preservative free injection intravenous, Administer over 2 Minutes, As needed, Starting on Thu06/03/21 at 1039, Anesthesia Intra-op Given 06/03/2021 10:39 AM DINNER COOK 1 mg ondansetron (ZOFRAN) injection intravenous, Administer over 2 Minutes, As needed, Starting on Thu06/03/21 at 1139, Anesthesia Intra-op Given 06/03/2021 11:39 AM DINNER COOK 4 mg phenylephrine (BERTHA-SYNEPHRINE) 1 mg/10 mL (100 mcg/mL) in sodium chloride 0.9% (premix) intravenous, As needed, Starting on Thu06/03/21 at 1128, Anesthesia Intra-op Given 06/03/2021 11:28 AM DINNER COOK 50 mcg propofoL (DIPRIVAN) 10 mg/mL IV intravenous, As needed, Starting on Thu06/03/21 at 1040, Anesthesia Intra-op Rate/Dose Change 06/03/2021 11:33 AM DINNER COOK 25 mcg/kg/min 12.915 mL/hr New Bag 06/03/2021 11:00 AM DINNER COOK 75 mcg/kg/min 38.745 mL /hr Given 06/03/2021 10:40 AM DINNER COOK 200 mg succinylcholine (ANECTINE) injection intravenous, As needed, Starting on Thu06/03/21 at 1040, Anesthesia Intra-op Given 06/03/2021 10:40 AM DINNER COOK 100 mg documented in this encounter Care Teams Dental Technician Relationship Specialty Start Date End Date Anil Gupta MD [address] [place] [address] PCP - General Internal Medicine 04/19/21 Anil Gupta MD [address] [place] [address] Internal Medicine 04/19/21 documented as of this encounter
--- OUTSIDE RECORDS SUMMARY | 2024-03-19 07:35 | XMS_ITS | Encounter Summary ---
Author Organization [facility] Address [address] [place] [phone] Phone Care Team Providers Care Pressurizer Name Role Phone Anil Gupta MD Primary Care Provider [phone] Encounter Details Date Type Department Care Team (Late st Contact Info) Description 09/29/2021 Orders Only [facility] Nephrology and Hypertension [address] [facility], [address] [place] [address] Xander Noel MD [address] [facility], [address] [facility] [place] [address] Hyponatremia (Primary Dx) Social History Tobacco Use Types Packs/Day Years Used Date Smoking Tobacco: Never Smokeless Tobacco: Never Alcohol Use Standard Drinks/Week Comments Yes 14 (1 standard drink = 0.6 oz pu re alcohol) Sex and Gender Information Value Date Recorded Sex Assigned at Not on file Gender Identity Not on file Sexual Orientation Not on file documented as of this encounter Plan of Treatment Not on file documented as of this encounter Procedures Procedure Name Priority Date/Time Associated Diagnosis Comments RENAL FUNCTION PANEL (RFP) Routine 02/18/2022 9:19 AM AML ANALYST Hyponatremia documented in this encounter Results * (ABNORMAL) Renal Function Panel (RFP) (02/18/2022 9:19 AM AML ANALYST) Glucose, Serum/Plasma 84 65 - 139 mg/dL [facility] ([facility]) Comment: ? Non-fasting reference interval Urea nitrogen, Serum/Plasma (BUN) 27(H) 7 - 25 mg/dL [facility] ([facility]) Creatinine, Serum/Plasma 1.00 0.70 - 1.28 mg/dL [facility] ([facility]) Estimated Glomerular Filtration Rate (eGFR) 80 > OR = 60 mL/min/1.7 3m2 [facility] ([facility]) Comment: The eGFR is based on the CKD-EPI 2020 equation. To calculate the new eGFR from a previous Creatinine or Cystatin C result, go to https://www.kidney.org/professionals/ kdoqi/gfr%5Fcalculator Urea nitrogen/Creati nine, Serum/Plasma 27(H) 6 - 22 (calc) [facility] ([facility]) Sodium, Serum/Plasma 132(L) 135 - 146 mmol/L [facility] ([facility]) Potassium, Serum/Plasma 5.0 3.5 - 5.3 mmol/L [facility] ([facility]) Chloride, Serum/Plasma 98 98 - 110 mmol/L [facility] ([facility]) Carbon dioxide CO2), total, Serum/Plasma 29 20 - 32 mmol/L [facility] ([facility]) Calcium, Serum/Plasma 9.0 8.6 - 10.3 mg/dL [facility] ([facility]) Phosphate, Serum/Plasma 4.1 2.1 - 4.3 mg/dL [facility] ([facility]) Albumin, Serum/Plasma 3.9 3.6 - 5.1 g/dL [facility] ([facility]) Blood 02/18/2022 9:19 AM AML ANALYST 02/18/2022 9:20 AM AML ANALYST Narrative [facility] ([facility]) - 02/19/2022 8:40 AM AML ANALYST FASTING:NO FASTING: NO Resulting Agency Comment Performing Organization Information: ?Site ID: [place] ?Name: [facility] ?Address: [address] [address] ?Director: Aydin Rubio D.O., MPH Xander Noel MD LAB BLOOD ORDERABLES [facility] ([facility]) documented in this encounter Visit Diagnoses Diagnosis Hyponatremia- Primary documented in this encounter Care Teams Pressurizer Relationship Specialty Start Date End Date Anil Gupta MD [address] [facility] [address] [place] [address] PCP - General Internal Medicine 01/30/21 documented as of this encounter
--- OUTSIDE RECORDS SUMMARY | 2024-03-19 07:35 | XMS_ITS | Encounter Summary ---
Author Organization [facility] Address [address] [place] [address] Phone Care Team Providers Care Heavy Duty Mechanic Farm Equipment Name Role Phone Anil Gupta MD Primary Care Provider [phone] Encounter Details Date Type Department Care Team (Late st Contact Info) Description 09/14/2021 Telephone [facility] Nephrology and Hypertension [address] [facility], [address] [place] [address] Xander Noel MD [address] [facility], [address] [place] [address] Social History Tobacco Use Types Packs/Day Years Used Date Smoking Tobacco: Never Smokeless Tobacco: Never Alcohol Use Standard Drinks/Week Comments Yes 14 (1 standard drink = 0.6 oz pu re alcohol) Sex and Gender Information Value Date Recorded Sex Assigned at Not on file Gender Identity Not on file Sexual Orientation Not on file documented as of this encounter Miscellaneous Notes * Telephone Encounter - Nicolas Pope MA - 09/17/2021 10:29 AM CDT PT CALLED TO LET US KNOW THAT HE HAD LABS DONE YESTERDAY MORNING 09/16/21 AT [facility] HE WILL BE COMING TO APPT ON THURSDAY * Telephone Encounter - Nicolas Pope MA - 09/17/2021 9:14 AM CDT Left message on recorder for pt to get labs done for appt on 09/19 * Telephone Encounter - Xander Noel MD - 09/14/2021 1:50 PM CDT Please ask pt to get labs done or if he ended up at the [facility], he can follow with them documented in this encounter Plan of Treatment Not on file documented as of this encounter Visit Diagnoses Not on filedocumented in this encounter Care Teams Heavy Duty Mechanic Farm Equipment Relationship Specialty Start Date End Date Anil Gupta MD [address] [facility] [address] [facility] [address] [place] [address] PCP - General Internal Medicine 01/30/21 documented as of this encounter
--- OUTSIDE RECORDS SUMMARY | 2024-03-19 07:35 | XMS_ITS | Encounter Summary ---
Author Organization [facility] utirico Address [address] [place] [address] Phone Care Team Providers Care Implementation Analyst Name Role Phone Anil Gupta MD Primary Care Provider [phone] Encounter Details Date Type Department Care Team (Late st Contact Info) Description 02/28/2021 11:15 AM EVENT REPRESENTATIVE Office Visit [facility] Nephrology and Hypertension [address] [place] [address], [address] [place] [address] Xander Noel MD [address] [facility], [address] [place] [address] Toxic effect of mercury and its compounds, accidental (unintentional), initial encounter (Primary Dx); Toxic effect of lead compound <Initial>; Hyponatremia Social History Tobacco Use Types Packs/Day Years Used Date Smoking Tobacco: Never Smokeless Tobacco: Never Alcohol Use Standard Drinks/Week Comments Yes 14 (1 standard drink = 0.6 oz pu re alcohol) Sex and Gender Information Value Date Recorded Sex Assigned at Not on file Gender Identity Not on file Sexual Orientation Not on file documented as of this encounter Last Filed Vital Signs Vital Sign Reading Time Taken Comments Blood Pressure 118/74 02/28/2021 11:33 AM EVENT REPRESENTATIVE Pulse 72 02/28/2021 11:33 AM EVENT REPRESENTATIVE Temperature 36.1 ??C (97 ??F) 02/28/2021 11:33 AM EVENT REPRESENTATIVE Respiratory Rate - - Oxygen Saturation - - Inhaled Oxygen Concentration - - Weight 88 kg (194 lb) 02/28/2021 11:33 AM EVENT REPRESENTATIVE Height 182.9 cm (6') 02/28/2021 11:33 AM EVENT REPRESENTATIVE Body Mass Index 26.31 02/28/2021 11:33 AM EVENT REPRESENTATIVE documented in this encounter Progress Notes * Xander Noel MD - 02/28/2021 11:15 AM CST Douglas Horn is a pleasant 71 y.o.male. 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 The patient developed neuropathy. He saw Dr. Doug Nguyễn to evaluate this and he did heavy metal screens and found high levels of lead and mercury. He was sent to Dr. Mendoza at [facility]. He received five rounds of EDTA chelation therapy as well as suppositories it as well. The levels decreasedtemporarily; however as soon as the treatments stopped, the high levels returned. He has had no problems with anemia or with mental status changes. 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 He has restless leg syndrome. Past history: lead and mercury toxicity, pseudomonas colonization, restless leg syndrome. No Known Allergies Social History Tobacco Use ??? Smoking status: Never Smoker ??? Smokeless tobacco: Never Used Substance Use Topics ??? Alcohol use: Yes Alcohol/week: 14.0 standard drinks Types: 14 Standard drinks or equivalent per week ??? Drug use: Never ROS Constitutional: Negative except as above Urologic: Negative except as above Pulmonary: Negative except as above Abdomen: Negative except as above Neuro: Negative except as above ENT: Negative except as above Endocrine: Negative except as above Psychiatric: Negative except as above Cardiac: Negative except as above Skin: Negative except as above Rheumatologic: Negative except as above BP 118/74 Pulse 72 Temp 97 ??F (36.1 ??C) Ht 6' (1.829 m) Wt 194 lb (88 kg) BMI 26.31 kg/m?? BSA 2.11 m?? WDWN male in NAD Skin warm and dry, no rash Neck no nodes, no TMG or bruits Lungs Clear to ausc and percussion Cor RRR no rub or gallop Abd BS+ nontender and soft, no masses, HSM, or bruits. Ext No cyanosis, clubbing, or edema. 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 He says that as a teenager he would melt lead from car batteries down and mold it into objects. I suspect it???s where he had exposure. 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 I told him that for this problem it would be better for him to go to [place] or to the [facility]. The patient also has hyponatremia. This was present a couple of years ago and it was a present on the more recent labs at Dr. Gupta sent over. He is not on any diuretics, antidepressants, or narcotics. He is on a PPI. He???s up-to-date with cancer screening. He???s had no history of cancer. 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 He has no history of stroke, brain tumor, or other SALES EXEC issues. I will check a TSH, cortisol, SPE, as well as serum and urine osmolality, and repeat the sodium. I asked him to see if he could get off the proton pump inhibiter and use famotidine instead. Proton pump inhibitors can cause hyponatremia up in some people. His weight is good. The patient will get the testing done and come back in a few months for further evaluation and management. Pt was told that I will write a note or call them with results of tests done after the visit. If they do not get any notification within a week or two after the testing is done, then they should callfor results. Assessment/Plan Diagnoses and all orders for this visit: Toxic effect of mercury and its compounds, accidental (unintentional), initial encounter - Mercury (Blood); Future Toxic effect of lead compound <Initial> - Lead (Blood); Future Hyponatremia - Renal Function Panel (RFP); Future - Total Protein w/ Creatinine, Urine, Random; Future - OSMOLALITY, SERUM; Future - OSMOLALITY, URINE; Future - TSH W/ Reflex To Ft4; Future - CORTISOL, SERUM; Future - PROTEIN ELECTROPHORESIS WITH IMMUNOFIXATION, SERUM; Future documented in this encounter Plan of Treatment Not on file documented as of this encounter Procedures Procedure Name Priority Date/Time Associated Diagnosis Comments PROTEIN ELECTROPHORESIS WITH IMMUNOFIXATION, SERUM Routine 09/16/2021 7:48 AM CDT Hyponatremia TOTAL PROTEIN W/ CREATININE, URINE, RANDOM Routine 09/16/2021 7:48 AM CDT Hyponatremia RENAL FUNCTION PANEL (RFP) Routine 09/16/2021 7:48 AM CDT Hyponatremia TSH W/ REFLEX TO FT4 Routine 09/16/2021 7:48 AM CDT Hyponatremia OSMOLALITY, URINE Routine 09/16/2021 7:4 8 AM CDT Hyponatremia OSMOLALITY, SERUM Routine 09/16/2021 7:4 8 AM CDT Hyponatremia MERCURY (BLOOD) Routine 09/16/2021 7:48 AM CDT Toxic effect of mercury and its compounds, accidental (unintentional), initial encounter LEAD (BLOOD) Routine 09/16/2021 7:48 AM CDT Toxic effect of lead compound <Initial> CORTISOL, SERUM Routine 09/16/2021 7:48 AM CDT Hyponatremia documented in this encounter Results * Mercury (Blood) (09/16/2021 7:48 AM CDT) Mercury, Blood 8 <OR=10 mcg/L [facility] ([facility]) Comment:See Note 1 Blood (Blood, Venous) 09/16/2021 7:48 AM CDT 09/16/2021 7:51 AM CDT Narrative [facility] - 09/19/2021 7:23 AM CDT VARIFIED ALL INFO FASTING:YES FASTING: YES Resulting Agency Comment Performing Organization Information: ?Site ID: [place] ?Name: [facility] ?Address: [address] [place] [id number] ?Director: Douglas Mcgraw M.D. Xander Noel MD LAB BLOOD ORDERABLES Performing Organization Address City/[facility] Co de Phone Number [facility] * Lead (Blood) (09/16/2021 7:48 AM CDT) Pathologist [facility] Lead, Blood 1.8 <3.5 mcg/dL [facility]) Comment: See Note 1 Analysis was performed by Inductively Coupled Plasma Mass Spectrometry (ICPMS) Note 1 This test was developed and its analytical performance characteristics have been determined by [facility]. It has not been cleared or approved by the FDA. This assay has been validated pursuant to the CLIA regulations and is used for clinical purposes. Blood (Blood, Venous) 09/16/2021 7:48 AM CDT 09/16/2021 7:51 AM CDT Narrative [facility] - 09/19/2021 7:23 AM CDT VARIFIED ALL INFO FASTING:YES FASTING: YES Resulting Agency Comment Performing Organization Information: ?Site ID: [place] ?Name: [facility] ?Address: [address] [place] [address] [place] [address] ?Director: Aydin Rubio D.O., MPH Xander Noel MD LAB BLOOD ORDERABLES Performing Organization Address [facility] Co de Phone Number [facility]) * (ABNORMAL) PROTEIN ELECTROPHORESIS WITH IMMUNOFIXATION, SERUM (09/16/2021 7:48 AM CDT) Protein, Serum/Plasma 6.0(L) 6.1 - 8.1 g/dL [facility]) Immunofixation for Serum/Plasma Normal pattern. No monoclonal proteins detected. [facility] ([facility]) Albumin, Serum/Plasma 3.6(L) 3.8 - 4.8 g/dL [facility]) Alpha 1 globulin, Serum/Plasma 0.3 0.2 - 0.3 g/dL [facility]) Alpha 2 globulin, Serum/Plasma 0.6 0.5 - 0.9 g/dL [facility]) Beta 1 globulin, Serum/Plasma 0.4 0.4 - 0.6 g/dL [facility]) Beta 2 globulin, Serum/Plasma 0.3 0.2 - 0.5 g/dL [facility]) Gamma globulin, Serum/Plasma 0.7(L) 0.8 - 1.7 g/dL [facility] ([facility]) Protein Fractions, Serum/Plasma [facility]) Comment: Hypogammaglobulinemia may be seen in early or evolving lymphoproliferative disorders, acquired or congenital immune deficiencies, immunosuppressive therapy and light chain disease. Consider urine protein electrophoresis, urine immunofixation and/or free light chains if clinically indicated. 09/16/2021 7:48 AM CDT 09/16/2021 7:51 AM CDT Narrative [facility] ([facility]) - 09/19/2021 7:23 AM CDT VARIFIED ALL INFO FASTING:YES FASTING: YES Resulting Agency Comment Performing Organization Information: ?Site ID: [place] ?Name: [facility] ?Address: [address] [address] ?Director: Aydin Rubio D.O., MPH Xander Noel MD LAB BLOOD ORDERABLES [facility] * CORTISOL, SERUM (09/16/2021 7:48 AM CDT) Cortisol, Serum/Plasma 11.4 mcg/dL [facility] Comment: Reference Range: For 8 a.m.(7-9 a.m.) Specimen: 4.0-22.0 Reference Range: For 4 p.m.(3-5 p.m.) Specimen: 3.0-17.0 ??* Please interpret above results accordingly * Blood (Blood, Venous) 09/16/2021 7:48 AM CDT 09/16/2021 7:51 AM CDT Narrative [facility]) - 09/19/2021 7:23 AM CDT VARIFIED ALL INFO FASTING:YES FASTING: YES Resulting Agency Comment Performing Organization Information: ?Site ID: [place] ?Name: [facility] ?Address: [address] [place] [address] [place] [address] ?Director: Aydin Rubio D.O., MPH Xander Noel MD LAB BLOOD ORDERABLES [facility]) * TSH W/ Reflex To Ft4 (09/16/2021 7:48 AM CDT) Pathologist [facility] TSH, Serum/Plasma 1.83 0.40 - 4.50 mIU/L [facility] ([facility]) Blood (Blood, Venous) 09/16/2021 7:48 AM CDT 09/16/2021 7:51 AM CDT Narrative [facility]) - 09/19/2021 7:23 AM CDT VARIFIED ALL INFO FASTING:YES FASTING: YES Resulting Agency Comment Performing Organization Information: ?Site ID: [place] ?Name: [facility] ?Address: [address] [place] [address], [place] [address] ?Director: Aydin Rubio D.O., MPH Xander Noel MD LAB BLOOD ORDERABLES Performing Organization Address [facility] Co de Phone Number [facility] ([facility]) * OSMOLALITY, URINE (09/16/2021 7:48 AM CDT) Osmolality of Urine 349 50 - 1,200 mOsm/kg [facility] Urine (Urine, Clean Catch) 09/16/2021 7:48 AM CDT 09/16/2021 7:51 AM CDT Narrative [facility] ([facility]) - 09/19/2021 7:23 AM CDT VARIFIED ALL INFO FASTING:YES FASTING: YES Resulting Agency Comment Performing Organization Information: ?Site ID: [place] ?Name: [facility] ?Address: [address] [place] [phone] ?Director: Aydin Rubio D.O., MPH Xander Noel MD LAB URINE ORDERABLES Performing Organization Address [facility] Co de Phone Number [facility]) * OSMOLALITY, SERUM (09/16/2021 7:48 AM CDT) Osmolality of Serum/Plasma 283 278 - 305 mOsm/kg [facility]) Blood (Blood, Venous) 09/16/2021 7:48 AM CDT 09/16/2021 7:51 AM CDT Narrative [facility] ([facility]) - 09/19/2021 7:23 AM CDT VARIFIED ALL INFO FASTING:YES FASTING: YES Resulting Agency Comment Performing Organization Information: ?Site ID: [place] ?Name: [facility] ?Address: [address] [place], [place] [address] [address] ?Director: Aydin Rubio D.O., MPH Xander Noel MD LAB BLOOD ORDERABLES Performing Organization Address City/[facility]/ZIP Co de Phone Number [facility]) * Total Protein w/ Creatinine, Urine, Random (09/16/2021 7:48 AM CDT) Creatinine, Urine 40 20 - 320 mg/dL [facility]) Protein/Creatin ine, Urine 125 22 - 128 mg/g creat [facility]) Protein/Creatin ine, Urine 0.125 0.022 - 0.128 mg/mg creat [facility]) Protein, Urine 5 5 - 25 mg/dL [facility]) 09/16/2021 7:48 AM CDT 09/16/2021 7:51 AM CDT Narrative [facility] ([facility]) - 09/19/2021 7:23 AM CDT VARIFIED ALL INFO FASTING:YES FASTING: YES Resulting Agency Comment Performing Organization Information: ?Site ID: [place] ?Name: [facility] ?Address: [address] [place] [phone] ?Director: Aydin Rubio D.O., MPH Xander Noel MD LAB URINE ORDERABLES Performing Organization Address [facility] Co de Phone Number [facility]) * (ABNORMAL) Renal Function Panel (RFP) (09/16/2021 7:48 AM CDT) Glucose, Serum/Plasma 76 65 - 99 mg/dL [facility]) Comment: ? Fasting reference interval Urea nitrogen, Serum/Plasma (BUN) 14 7 - 25 mg/dL [facility]) Creatinine, Serum/Plasma 0.86 0.70 - 1.18 mg/dL [facility]) Comment: For patients >49 years of age, the reference limit for Creatinine is approximately 13% higher for people identified as -English. eGFR, non 88 > OR = 60 mL/min/1 .73m2 [facility]) eGFR, 102 > OR = 60 mL/min/1 .73m2 [facility]) Urea nitrogen/Creatini ne, Serum/Plasma NOT APPLICABLE 6 - 22 (calc) [facility]) Sodium, Serum/Plasma 133(L) 135 - 146 mmol/L [facility]) Potassium, Serum/Plasma 4.6 3.5 - 5.3 mmol/L [facility]) Chloride, Serum/Plasma 98 98 - 110 mmol/L [facility]) Carbon dioxide CO2), total, Serum/Plasma 30 20 - 32 mmol/L [facility]) Calcium, Serum/Plasma 9.1 8.6 - 10.3 mg/dL [facility]) Phosphate, Serum/Plasma 3.6 2.1 - 4.3 mg/dL [facility]) Albumin, Serum/Plasma 3.8 3.6 - 5.1 g/dL [facility]) Blood 09/16/2021 7:48 AM CDT 09/16/2021 7:51 AM CDT Narrative [facility]) - 09/19/2021 7:23 AM CDT VARIFIED ALL INFO FASTING:YES FASTING: YES Resulting Agency Comment Performing Organization Information: ?Site ID: [place] ?Name: [facility] ?Address: [address] [place] [address] ?Director: Aydin Rubio D.O., MPH Xander Noel MD LAB BLOOD ORDERABLES [facility]) documented in this encounter Visit Diagnoses Diagnosis Toxic effect of mercury and its compounds, accidental (unintentional), initial encounter- Primary Toxic effect of lead compound <Initial> Hyponatremia documented in this encounter Care Teams Implementation Analyst Relationship Specialty Start Date End Date Anil Gupta MD [address] [place] [address] PCP - General Internal Medicine 01/30/21 documented as of this encounter
--- OUTSIDE RECORDS SUMMARY | 2024-03-19 07:35 | XMS_ITS | Clinical Summary ---
Author Organization [facility] layne Address [address] [place] [address] Phone Care Team Providers Care Cart Attendant Name Role Phone Anil Gupta MD Primary Care Provider [phone] Allergies No known active allergies Medications Medication Sig Dispensed Refills Start Date End Date Status albuterol HFA (PROVENTIL HFA) 108 (90 Base) MCG/ACT inhaler 01/28/2021 Active budesonide-formoterol (Symbicort) 160-4.5 MCG/ACT inhaler 12/31/2020 Active celecoxib (CeleBREX) 200 MG capsule ;prn 01/28/2021 Active fluticasone (FLONASE) 50 MCG/ACT nasal spray 01/18/2021 Active ipratropium (ATROVENT) 0.06 % nasal spray Administer 2 sprays into each nostril 2 (two) times a day 11/02/2020 Active pregabalin (LYRICA) 300 MG capsule Take 1 tablet by mouth daily Active rOPINIRole (REQUIP) 2 MG tablet 02/18/2021 Active tiZANidine (ZANAFLEX) 4 MG tablet 01/16/2021 Active vancomycin (VANCOCIN) 125 MG capsule TAKE 1 CAPSULE BY MOUTH 4 TIMES A DAY 12/29/2021 Active levoFLOXacin (LEVAQUIN) 500 MG tablet Take 500 mg by mouth 1 (one) time each day 01/16/2022 Active ondansetron ODT (ZOFRAN-ODT) 8 MG dispersible tablet TAKE 1 TABLET BY MOUTH FOUR TIMES DAILY NEEDED FOR NAUSEA AND VOMITING 01/20/2022 Active Active Problems Problem Noted Date Diagnosed Date History of lumbar fusion 11/13/2021 Overview (02/24/2022): Last Assessment & Plan: Mr. Horn is status [...] He continues on antibiotics per Infectious Disease. Last Assessment & Plan: PLAN: - may increase activity as tolerated with lifting no more than 20 lb at this time. - discontinue brace -may use anti-inflammatories as needed. WORK STATUS: - RETIRED FOLLOW UP APPT: With Dr. Garcia in 3 months with AP/LAT/Flexion/Extension Lumbar spine films. Hyponatremia 09/14/2021 Spinal stenosis of lumbar region 04/24/2021 Overview (09/14/2021): Added automatically from request for surgery [id number] Last Assessment & Plan: Mr. Horn is status [...] by phone about results after the injections. Last Assessment & Plan: Mr. Horn has multilevel [...] in the form of right L5-S1 microdiskectomy. 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 Immunizations Name Administration Dates Next Due Influenza TIV (IM) 12/20/2021,02/19/2021 Pneumococcal Conjugate 02/04/2019 Pneumococcal Conjugate 13-Valent 02/25/2020 Social History Tobacco Use Types Packs/Day Years Used Date Smoking Tobacco: Never Smokeless Tobacco: Never Alcohol Use Standard Drinks/Week Comments Yes 14 (1 standard drink = 0.6 oz pu re alcohol) Sex and Gender Information Value Date Recorded Sex Assigned at Not on file Gender Identity Not on file Sexual Orientation Not on file Last Filed Vital Signs Vital Sign Reading Time Taken Comments Blood Pressure 112/70 02/24/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 Pulse 72 02/24/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 Temperature 35.4 ??C (95.7 ??F) 02/24/2022 1:54 PM CS T Respiratory Rate - - Oxygen Saturation - - Inhaled Oxygen Concentration - - Weight 86.2 kg (190 lb) 02/24/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
--- OUTSIDE RECORDS SUMMARY | 2024-03-19 07:35 | XMS_ITS | Continuity of Care Document ---
Author Organization [facility] Address [address] [place] [address] Phone Care Team Providers Care Diabetes Educator Name Role Phone Chavez OD, Terry Unavailable Unavailable Advance Directives Directive Yes / No Effective Date File Name No Information Encounters Encounter Description Practice Location Reason(s) For Visit Diagnoses Date Provider Providers Copied on Encounter [facility], [address], [place], [place], [id number], [place] tel:[phone] [facility] No Information [phone] Chavez OD Terry. [address] , [address], [place], [address], [place]. tel:[phone] Family History Family Member Type Diagnosis Age At Onset No Information Payers Payer name Insurance type Covered constitution party ID Authoriza tion(s) [employer] Plan CI [id number] Social History Type Description Quantity Date Captured Comments Sex Male Smoking Status No Information Chief Complaint And Reason For Visit No Information Reason For Referral Reason For Referral No Information History Of Present Illness Encounter Date Complaint History Of Prese nt Illness No Information Functional Status Date Functional Assessmen t No Information Instructions Date Instruction Additional Infor mation No Information Assessments Type Assessment Date No Information Patient Care Teams Name Effective Dates (start - stop) Status Members No Information
--- OUTSIDE RECORDS SUMMARY | 2024-03-19 07:35 | XMS_ITS | Encounter Summary ---
Author Organization [facility] Address [address] [place] [address] Phone Care Team Providers Care Pecan Grower Name Role Phone Anil Gupta MD Primary Care Provider [phone] Encounter Details Date Type Department Care Team (Late st Contact Info) Description 03/04/2022 Refill [facility] Nephrology and Hypertension [address], [address] [place] [address] Xander Noel MD [address] [facility] [facility] [facility] [place] [address] Social History Tobacco Use Types Packs/Day Years [...] on filedocumented in this encounter Care Teams Pecan Grower Relationship Specialty Start Date End Date Anil Gupta MD [address] [place] [address] PCP - General Internal Medicine 01/30/21 documented as of this encounter
--- OUTSIDE RECORDS SUMMARY | 2024-03-19 07:35 | XMS_ITS | Encounter Summary ---
Author Organization [facility] Address [address] [place] [address] Phone Care Team Providers Care Train Operations Manager Name Role Phone Anil Gupta MD Primary Care Provider [phone] Encounter Details Date Type Department Care Team (Late st Contact Info) Description 02/28/2021 Refill [facility], [address] [address] Xander Noel MD [address] [facility], SU[address] [facility] [place] [address] Social History Tobacco Use Types Packs/Day Years [...] encounter Miscellaneous Notes * Telephone Encounter - Xander Noel MD - 02/28/2021 12:13 PM CST Please ask pt which pharmacy he is going to and I will call in [facility] documented in this encounter Plan of Treatment Not on file documented as of this encounter Visit Diagnoses Not on filedocumented in this encounter Care Teams Train Operations Manager Relationship Specialty Start Date End Date Anil Gupta MD [address] [facility] [address] [place] [address] PCP - General Internal Medicine 01/30/21 documented as of this encounter
--- OUTSIDE RECORDS SUMMARY | 2024-03-19 07:35 | XMS_ITS | Encounter Summary ---
Author Organization [facility] Address [address] [place] [address] Phone Care Team Providers Care Contract Recruiter Name Role Phone Anil Gupta MD Primary Care Provider [phone] Encounter Details Date Type Department Care Team (Late st Contact Info) Description 02/24/2022 2:00 PM DOOR OPERATOR Office Visit [facility] Nephrology and Hypertension [address] [place] [address], [address] [place] [address] Xander Noel MD [address] [facility], [address] [place] [address] Hyponatremia (Primary Dx) Social History Tobacco Use [...] Comments Blood Pressure 112/70 02/24/2022 1:54 PM DOOR OPERATOR Pulse 72 02/24/2022 1:54 PM DOOR OPERATOR Temperature 35.4 ??C (95.7 ??F) 02/24/2022 1:54 PM CS T Respiratory Rate - - Oxygen Saturation - - Inhaled Oxygen Concentration - - Weight 86.2 kg (190 lb) 02/24/2022 1:54 PM DOOR OPERATOR Height 182.9 cm (6') 02/24/2022 1:54 PM DOOR OPERATOR Body Mass Index 25.77 02/24/2022 1:54 PM DOOR OPERATOR documented in this encounter Progress Notes * Xander Noel MD - 02/24/2022 2:00 PM CST Douglas Horn is a pleasant 72 y.o.male. 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 He had back surgery and then infected wound. n ow on levo and The patient developed neuropathy. He saw Dr. Doug Nguyễn to evaluate this and he did heavy metal screens and found high levels of lead and mercury. He was sent to Dr. Mendoza at [facility]. He received five rounds of EDTA chelation therapy as well as suppositories it as well. The levels decreasedtemporarily; however as soon as the treatments stopped, the high levels returned. He has had no problems with anemia or with mental status changes. He has restless leg syndrome. Past history: lead and mercury toxicity, pseudomonas colonization, restless leg syndrome. No Known Allergies Social History Tobacco Use ??? Smoking status: Never ??? Smokeless tobacco: Never Substance Use Topics ??? Alcohol use: Yes Alcohol/week: 14.0 standard drinks Types: 14 Standard drinks or equivalent per week ??? Drug use: Never ROS Constitutional: Negative except as above Urologic: Negative except as above Pulmonary: Negative except as above Abdomen: Negative except as above BP 112/70 Pulse 72 Temp 95.7 ??F (35.4 ??C) Ht 6' (1.829 m) Wt 190 lb (86.2 kg) BMI 25.77kg/m?? BSA 2.09 m?? WDWN male in NAD Skin warm and dry, no rash Neck no nodes, no TMG or bruits Lungs Clear Cor RRR no rub or gallop Abd BS+ nontender and soft, no masses, HSM, or bruits. Ext Noedema. Recent Labs: 11/15/18 Na 134 09/06/20 Cr 1.05, gfr 72, Na 131, Hb 13.3, Chol 114/56/60 08/22/21 Cr 0.9, Na 131, Hb 10.4 Lab Results Component Value Date BUN 27 (H) 02/18/2022 CREATININE 1.00 02/18/2022 EGFRAA 100 09/25/2021 EGFRAA 102 09/16/2021 EGFR 87 09/25/2021 EGFR 88 09/16/2021 PROTCREATUR 125 09/16/2021 PROTCREATUR 0.125 09/16/2021 NA 132 (L) 02/18/2022 K 5.0 02/18/2022 CL 98 02/18/2022 CO2 29 02/18/2022 CA 9.0 02/18/2022 PHOSPHATE 4.1 02/18/2022 ALBUMIN 3.9 02/18/2022 GLUCOSE 84 02/18/2022 09/16/21 Sosmo close to calculated. Uosmo not suppressed TSH okay Cortisol 11. 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 Per Dr Schwab 2. 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 TSH is okay. No history of cancer and cancer screening up to date. Multiple lung xrays without suggestion of cause. No brain imaging that I know of but no neurologic signs. Bassem stim test borderline Hold nexium and see if sodium improves. Use famotidine instead. Drink if your are thirsty not if you arent. His weight is good. Plan 1500 to 2000 ml per day Have a triall off nexium for 2 weeks and repeat rfp RTC in a few months. Assessment/Plan Diagnoses and all orders for this visit: Hyponatremia documented in this encounter Plan of Treatment Not on file documented as of this encounter Visit Diagnoses Diagnosis Hyponatremia- Primary documented in this encounter Care Teams Contract Recruiter Relationship Specialty Start Date End Date Anil Gupta MD [address] [facility] [address] [place] [address] PCP - General Internal Medicine 01/30/21 documented as of this encounter
--- OUTSIDE RECORDS SUMMARY | 2024-03-19 07:35 | XMS_ITS | Encounter Summary ---
Author Organization [facility] Address [address] [place] [address] Phone Care Team Providers Care Computer Numeric Control Setter Name Role Phone Anil Gupta MD Primary Care Provider [phone] Encounter Details Date Type Department Care Team (Late st Contact Info) Description 09/19/2021 8:45 AM CDT Office Visit [facility] Nephrology and Hypertension [address] [place] [address], [address] [place] [address] Xander Noel MD [address] [facility], [address] [place] [address] Hyponatremia (Primary Dx) Social History Tobacco Use [...] Sign Reading Time Taken Comments Blood Pressure 106/60 09/19/2021 9:00 AM CDT Pulse 60 09/19/2021 9:00 AM CDT Temperature 35.7 ??C (96.3 ??F) 09/19/2021 9:00 AM CD T Respiratory Rate - - Oxygen Saturation - - Inhaled Oxygen Concentration - - Weight 82.6 kg (182 lb) 09/19/2021 9:00 AM CDT Height 182.9 cm (6') 09/19/2021 9:00 AM CDT Body Mass Index 24.68 09/19/2021 9:00 AM CDT documented in this encounter Progress Notes * Xander Noel MD - 09/19/2021 8:45 AM CDT Douglas Horn is a pleasant 71 y.o.male. 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 He developed c diff out of the blue and is on dificid. He is almost off the med. Symptoms are better. The patient developed neuropathy. He saw Dr. Doug Nguyễn to evaluate this and he did heavy metal screens and found high levels of lead and mercury. He was sent to Dr. Mendoza at [facility]. He received five rounds of EDTA chelation therapy as well as suppositories it as well. The levels decreasedtemporarily; however as soon as the treatments stopped, the high levels returned. He went to lab 2 days ago. He has had no problems with anemia [...] above Abdomen: Negative except as above BP 106/60 Pulse 60 Temp 96.3 ??F (35.7 ??C) Ht 6' (1.829 m) Wt 182 lb (82.6 kg) BMI 24.68kg/m?? BSA 2.05 m?? WDWN male in NAD Skin warm and dry, no rash Neck no nodes, no TMG or bruits Lungs Clear to ausc and percussion Cor RRR no rub or gallop Abd BS+ nontender and soft, no masses, HSM, or bruits. Ext No cyanosis, clubbing, or edema. Recent Labs: 11/15/18 Na 134 09/06/20 Cr 1.05, gfr 72, Na 131, Hb 13.3, Chol 114/56/60 08/22/21 Cr 0.9, Na 131, Hb 10.4 Lab Results Component Value Date BUN 14 09/16/2021 CREATININE 0.86 09/16/2021 EGFRAA 102 09/16/2021 EGFR 88 09/16/2021 PROTCREATUR 125 09/16/2021 PROTCREATUR 0.125 09/16/2021 NA 133 (L) 09/16/2021 K 4.6 09/16/2021 CL 98 09/16/2021 CO2 30 09/16/2021 CA 9.1 09/16/2021 PHOSPHATE 3.6 09/16/2021 ALBUMIN 3.8 09/16/2021 ALBUMIN 3.6 (L) 09/16/2021 GLUCOSE 76 09/16/2021 09/16/21 Sosmo close to calculated. Uosmo not suppressed TSH okay Cortisol 11. 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 He says that as a teenager he would melt lead from car batteries down and mold it into objects. I suspect it???s where he had exposure. 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 I don't bring anything to the table for this beyond what Alonso Dalton, and revitalife do. 2. 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 TSH is okay. No history of cancer and cancer screening up to date. Multiple lung xrays without suggestion of cause. No brain imaging that I know of but no neurologic signs. His cortisol is only 11. Will check cortrosyn stim test. If the chemical compounder is negative then will try a time off nexium and see if the sodium improves. Drink if your are thirsty not if you arent. His weight is good. Plan Cortrosyn stim test Consider a triall off nexium RTC in a few months. Assessment/Plan Diagnoses and all orders for this visit: Hyponatremia documented in this encounter Plan of Treatment Not on file documented as of this encounter Procedures Procedure Name Priority Date/Time Associated Diagnosis Comments RENAL FUNCTION PANEL (RFP) Routine 09/25/2021 6:27 AM CDT Hyponatremia documented in this encounter Results * (ABNORMAL) Renal Function Panel (RFP) (09/25/2021 6:27 AM CDT) Glucose, Serum/Plasma 82 65 - 99 mg/dL [facility] ([facility]) Comment: ? Fasting reference interval Urea nitrogen, Serum/Plasma (BUN) 15 7 - 25 mg/dL [facility] ([facility]) Creatinine, Serum/Plasma 0.89 0.70 - 1.18 mg/dL [facility] ([facility]) Comment: For patients >49 years of age, the reference limit for Creatinine is approximately 13% higher for people identified as -Egyptian. eGFR, non 87 > OR = 60 mL/min/1 .73m2 [facility] ([facility]) eGFR, 100 > OR = 60 mL/min/1 .73m2 [facility] ([facility]) Urea nitrogen/Creatini ne, Serum/Plasma NOT APPLICABLE 6 - 22 (calc) [facility] ([facility]) Sodium, Serum/Plasma 132(L) 135 - 146 mmol/L [facility] ([facility]) Potassium, Serum/Plasma 4.5 3.5 - 5.3 mmol/L [facility] ([facility]) Chloride, Serum/Plasma 97(L) 98 - 110 mmol/L [facility] ([facility]) Carbon dioxide CO2), total, Serum/Plasma 30 20 - 32 mmol/L [facility] ([facility]) Calcium, Serum/Plasma 9.0 8.6 - 10.3 mg/dL [facility] ([facility]) Phosphate, Serum/Plasma 4.5(H) 2.1 - 4.3 mg/dL [facility] ([facility]) Albumin, Serum/Plasma 3.9 3.6 - 5.1 g/dL [facility] ([facility]) Blood 09/25/2021 6:27 AM CDT 09/25/2021 6:28 AM CDT Narrative [facility] - 09/26/2021 3:47 AM CDT NO DRAW FEE 2ND ORDER FASTING:YES FASTING: YES Resulting Agency Comment Performing Organization Information: ?Site ID: [id number] ?Name: [facility] ?Address: [address] [place], [place] [address] [address] ?Director: Aydin Rubio D.O., MPH Xander Noel MD LAB BLOOD ORDERABLES [facility] documented in this encounter Visit Diagnoses Diagnosis Hyponatremia- Primary documented in this encounter Care Teams Computer Numeric Control Setter Relationship Specialty Start Date End Date Anil Gupta MD [address] [facility] [address] [place] [address] PCP - General Internal Medicine 01/30/21 documented as of this encounter
--- OUTSIDE RECORDS SUMMARY | 2024-03-19 07:35 | XMS_ITS | Encounter Summary ---
Author Organization [facility] Address [address] [place] [address] Phone Care Team Providers Care Corporate Physical Security Supervisor Name Role Phone Anil Gupta MD Primary Care Provider [phone] Encounter Details Date Type Department Care Team (Late st Contact Info) Description 11/24/2021 Telephone [facility] Nephrology and Hypertension [address] [facility], [address] [place] [address] Xander Noel MD [address] [facility], [address] [place] [address] Social History Tobacco Use Types Packs/Day Years [...] Telephone Encounter - Xander Noel MD - 12/06/2021 3:22 PM CDT D/w pt. Will repeat the cortisol level next blood draw. Will mail a slip for his HHN to do. * Telephone Encounter - Xander Noel MD - 11/24/2021 4:35 PM CDT HEALTH/SAFETY JOB TITLES is suboptimal documented in this encounter Plan of Treatment Not on file documented as of this encounter Visit Diagnoses Not on filedocumented in this encounter Care Teams Corporate Physical Security Supervisor Relationship Specialty Start Date End Date Anil Gupta MD [address] [facility] [address] [facility] [address] [place] [id number] PCP - General Internal Medicine 01/30/21 documented as of this encounter
--- OUTSIDE RECORDS SUMMARY | 2024-03-19 07:35 | XMS_ITS | Encounter Summary ---
Author Organization [facility] Address [address] [place] [address] Phone Care Team Providers Care Die Maintenance Technician Name Role Phone Anil Gupta MD Primary Care Provider [phone] Encounter Details Date Type Department Care Team (Late st Contact Info) Description 09/19/2021 Telephone [facility] Nephrology and Hypertension [address] [facility], [address] [place] [address] Xander Noel MD [address] [facility], [address] [place] [address] Social History Tobacco Use Types Packs/Day Years [...] encounter Miscellaneous Notes * Telephone Encounter - Snehal Noel RN - 09/23/2021 11:51 AM CDT Pt info and order faxed to [email or web address] to schedule * Telephone Encounter - Xander Noel MD - 09/19/2021 11:21 AM CDT Please arrange for cortrosyn stim test at [facility] documented in this encounter Plan of Treatment Not on file documented as of this encounter Visit Diagnoses Not on filedocumented in this encounter Care Teams Die Maintenance Technician Relationship Specialty Start Date End Date Anil Gupta MD [address] [facility] [address] [facility] [address] [place] [phone] PCP - General Internal Medicine 01/30/21 documented as of this encounter
== END 2024-03-14 14:55 | disposition home or self-care (01) ==
PROVIDERS: PCP Internal Medicine; Visit Provider Anesthesiology Pain Medicine
PROC: (CPT 63650; principal; 2024-03-14 11:45)
DX: M54.17 Radiculopathy, lumbosacral region (principal); M54.9 Dorsalgia, unspecified; M96.1 Postlaminectomy syndrome, not elsewhere classified; M54.42 Lumbago with sciatica, left side; G89.29 Other chronic pain; E78.00 Pure hypercholesterolemia, unspecified; K21.9 Gastro-esophageal reflux disease without esophagitis; E87.1 Hypo-osmolality and hyponatremia; G25.81 Restless legs syndrome; I51.89 Other ill-defined heart diseases; G62.9 Polyneuropathy, unspecified; J98.4 Other disorders of lung; M41.80 Other forms of scoliosis, site unspecified; M43.06 Spondylolysis, lumbar region; R01.1 Cardiac murmur, unspecified; Z79.51 Long term (current) use of inhaled steroids; Z79.1 Long term (current) use of non-steroidal anti-inflammatories (NSAID); Z79.899 Other long term (current) drug therapy; Z98.890 Other specified postprocedural states; Z98.1 Arthrodesis status; Z87.19 Personal history of other diseases of the digestive system
CPT/HCPCS: 63650; 99199; J0690; J1171; J2003; J2250; J3370; J7120; Q9965

== ENCOUNTER 2024-04-15 10:26 | Outpatient (CLI) | payer MEDICARE, SELFPAY ==
--- NOTE | ~2024-04-15 | XR_ITS ---
XR hand RT 2V Ordering provider: Anil Gupta MD History: . trauma 1 yr ago, pain DIP Rt 5th finger . Comparison: None. FINDINGS: BONES: No acute fracture or dislocation. Faint opacity seen in the space between the third and fourth metacarpal bones. JOINT SPACES: Narrowing of the distal interphalangeal joints with erosive changes in the distal inter phalangeal joint of the fifth finger.. SOFT TISSUES: Normal. IMPRESSION: No acute osseous abnormality right hand. 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 Reviewed, dictated and finalized at location A. D MARKETING SPECIALIST
== END 2024-04-15 10:27 | disposition home or self-care (01) ==
LOC: GOSHIMG 10:27
PROVIDERS: PCP Internal Medicine; Visit Provider Internal Medicine
DX: R52 Pain, unspecified (principal)
CPT/HCPCS: 73120

== ENCOUNTER 2024-06-14 11:35 | Outpatient (CLI) | payer MEDICARE, SELFPAY ==
--- NOTE | 2024-06-14 11:47 | ECG_ITS ---
Test Date: 2024-06-14 11:59:18 Measurements Intervals [place] Rate: 63 P: 20 PA: 199 QRS: -42 QRSD: 158 T: -3 QT: 419 QTc: 432 Interpretive Statements SINUS RHYTHM MARKED LEFT AXIS DEVIATION [QRS AXIS < -30] RIGHT BUNDLE BRANCH BLOCK ABNORMAL ECG Electronically Signed On 06-15-2024 12:06:47 CDT by Ariel Lee M.D.
[2024-06-14 12:25] LABS: Anion Gap 7 mmol/L (4-12); Blood Urea Nitrogen 19 mg/dL (9-20); Carbon Dioxide 29 mmol/L (22-30); Chloride 92 mmol/L (98-107); Estimated Glomerular Filt Rate > 60; Glucose 97 mg/dL (65-110); Sodium 128 mmol/L (137-145)
--- OUTSIDE RECORDS SUMMARY | 2024-06-14 13:20 | XMS_ITS | Clinical Summary ---
Author Organization [facility] [employer] Address [address] [place] [address] Care Team Providers Care Special Distribution Clerk Name Role Phone Sukhdev Santos MD Primary Care Provider [phone] Source Comments [facility] [employer],non-owned Affiliates and Associated Physician Practices is amultiple site organization consisting of ambulatory clinics and hospital sitesin [place], [place], [place] and [place]. This disclosure is being madepursuant to the Care Everywhere program and may not contain all information available regarding this patient. Last updated 17.[facility] [employer] Allergies No known active allergies Medications [...] COLON CA SCREENING 1951 LIPID TESTING 1950 MEDICARE AWV 12 MONTHS 1951 HEPATITIS C SCREENING 01/26/1969 DTAP/TDAP/TD VACCINES (1 - Tdap) 1970 PNEUMOCOCCAL VACCINE 50+ (1 of 1 - PCV) 2001 ZOSTER VACCINE (1 of 2) 2001 COVID-19 VACCINE (1 - 2023-2 5 season) 2023 INFLUENZA VACCINE (#1) 2023 DEPRESSION SCREENING 03/30/2024 Respiratory Syncytial Virus (RSV) Vaccine Pt: or [...] patient's age to complete this topic MENINGOCOCCAL (Group B) VACC INE SHARED DECISION-MAKING Aged Out No longer eligibl e based on patient's age to complete this topic MENINGOCOCCAL GROUPS A/C/Y/W VACCINE Aged Out No longer eligible b ased on patient's age to complete this topic Care Teams Special Distribution Clerk Relationship Specialty Start Date End Date Sukhdev Santos MD [address] [place] [address] PCP - General 12/15/18
--- OUTSIDE RECORDS SUMMARY | 2024-06-14 13:20 | XMS_ITS | Continuity of Care Document ---
Author Organization [facility] Address [address] [place] [address] Phone Care Team Providers Care Salesperson Men'S [employer] Boys' Clothing Name Role Phone Chavez OD, Terry Unavailable Unavailable Advance Directives Directive Yes / No Effective Date File Name No Information Encounters Encounter Description Practice Location Reason(s) For Visit Diagnoses Date Provider Providers Copied on Encounter [facility], [address], [place], [place], [id number], [place] tel:[phone] [facility] No Information [phone] Chavez OD Terry. [address] , [address], [place], [address], [place]. tel:[phone] Family History Family Member Type Diagnosis Age At Onset No Information Payers Payer name Insurance type Covered constitution party ID Authoriza tion(s) [employer] CI [id number] Social History Type Description Quantity Date [...]
--- OUTSIDE RECORDS SUMMARY | 2024-06-14 13:20 | XMS_ITS | Referral Summary ---
Author Organization [facility] Address [address] [place] [address] Care Team Providers Care Laborer Demolition Name Role Phone Anil Gupta MD Primary Care Provider [phone] Anil Gupta MD Unavailable [phone] Adrien Young MD Unavailable [phone] Milad Garcia MD Unavailable Doni Marino MD Unavailable Edmundo Guajardo MD Unavailable [phone] Encounters Date Type Department Care Team Description 06/14/2024 10:15 AM CDT Office Visit [facility] Otolaryngology [address] [place] [address] Edmundo Guajardo MD Chronic cough (Primary Dx); Chronic pansinusitis 05/04/2024 Telephone [facility] Neurology [address] [place] [phone] Campbell Araya MD Test Results (LAB RESULTS ) 05/03/2024 10:00 AM PROFESSOR OF EDUCATION Lab [facility] Medical Office [address]ld[address] OP Lab [address] [place] [address] Polyneuropathy 05/03/2024 9:30 AM PROFESSOR OF EDUCATION Office Visit [facility] Neurology [address] [place] [phone] Campbell Araya MD Polyneuropathy (Primary Dx) 04/05/2024 10:15 AM PROFESSOR OF EDUCATION Office Visit [facility] Otolaryngology [address] [place] [phone] Edmundo Guajardo MD Chronic cough (Primary Dx); Chronic pansinusitis from Last 3 Months Allergies No known [...] 05/04/19 24 Active magnesium gluconate 200 mg tabletIndications: hypomagnesemia 1 tablet (200 mg total) Active pantoprazole DR (PROTONIX) 40 mg EC tablet Take 1 tablet (40 mg total) by mouth 2 (two) times a day 60 tablet 1 09/16/19 24 Active Edex 10 mcg injection 10/13/[address] (NexIUM) 20 mg capsule Take 1 capsule (20 mg total) by mouth daily before breakfast 04/04/19 23 Active Trelegy Ellipta 200-62.5-25 mcg inhaler Inhale 1 puff daily 10/06/19 24 Active ondansetron ODT (ZOFRAN-ODT) 8 mg disintegrating tablet Active tiZANidine (ZANAFLEX) 2 mg tablet 1 tablet (2 mg total) 04/10/19 24 Active sildenafiL (VIAGRA) 100 mg tablet Take 1 tablet (100 mg total) by mouth daily as needed for erectile dysfunction Active Ventolin HFA 90 mcg/actuation inhaler Inhale 2 puffs every 6 (six) hours as needed 01/27/20 24 Active nystatin 100,000 unit/mL suspensionIndicati ons:Thrush Swish and swallow 5cc QID x 10 days. 200 mL 1 03/04/20 24 Active nystatin creamIndications:T hrush Apply to corners of mouth as needed BID x 14 days then PRN 15 g 2 03/04/20 24 Active nortriptyline (PAMELOR) 25 mg capsule Take 1 capsule (25 mg total) by mouth nightly 90 capsule 3 05/03/19 25 026 Active ciprofloxacin (CIPRO) 500 mg tablet Take 1 tablet (500 mg total) by mouth 2 (two) times a day for 14 days 28 tablet 06/15/19 25 025 Active methylPREDNISolone (MEDROL DOSEPACK) 4 mg Dosepack Take as directed on package 1 packet 06/15/19 25 025 Active tobramycin (NEBCIN) 40 mg/mL solutionIndication s:Chronic pansinusitis 160mg Tobramycin in 1 liter of sodium chloride SIG: Using a bulb syringe, rinse both nostrils BID x 14 days 4 mL 2 06/15/19 25 Active sodium chloride 0.9% 0.9 % irrigationIndicati ons:Chronic pansinusitis Mix with 160mg Tobramycin with 1 liter of sodium chloride SIG: Using a bulb syringe, rinse both nostrils BID x 14 days 1000 mL 2 06/15/19 25 Active tobramycin (NEBCIN) 40 mg/mL solutionIndication s:Chronic pansinusitis 160mg Tobramycin in 1 liter of sodium chloride SIG: Using a bulb syringe, rinse both nostrils BID x 14 days 4 mL 03/04/20 24 025 Discontin ued(Reord er) sodium chloride 0.9% 0.9 % irrigationIndicati ons:Chronic pansinusitis Mix with 160mg Tobramycin with 1 liter of sodium chloride SIG: Using a bulb syringe, rinse both nostrils BID x 14 days 1000 mL 03/04/20 24 025 Discontin ued(Reord er) Active Problems Problem Noted Date Diagnosed Date Chronic maxillary sinusitis 02/22/2024 Thrush 12/02/2023 Assessment & Plan (03/05/2024 1:46 PM PROFESSOR OF EDUCATION): At his request we are going to [...] 09/16/2023 Chronic pansinusitis 09/16/2023 Assessment & Plan (06/14/2024 12:20 PM CDT): I am going to treat his sinusitis. Suspect Pseudomonas. We talked about that. I am placing him on a 2 week course of Cipro as well as a tobramycin rinse. Also we would like to have him do a course of steroids. I did inform him that his frontal sinus on the right appears to be occluded with swollen mucosa. Ultimately if his symptoms continue I probably would proceed with a sinus CT scan in anticipation of possibly needing surgery again. He understands. I will see him in 4 weeks. Assessment & Plan (04/05/2024 10:33 AM PROFESSOR OF EDUCATION): Sinuses are open and I do not see any active discharge. There is a little bit of crusting bilaterally which I did not remove. I recommended saline irrigations as needed. We are going to take a wait and see approach. I do not think sinusitis is causing his current cough. The plan is for a follow up in 2-3 months. Assessment & Plan (03/05/2024 1:45 PM PROFESSOR OF EDUCATION): His sinuses look much better. The nose [...] Bronchiectasis 05/04/2023 Cough 05/04/2023 Assessment & Plan (06/14/2024 12:21 PM CDT): Think the cough is probably due to sinusitis but need to consider possibility of reflux and neurogenic cough. May need to eventually adjust medications accordingly. He understands. Assessment & Plan (04/05/2024 10:33 AM PROFESSOR OF EDUCATION): Overall improved but somewhat persistent. Could be due to his bronchiectasis. If it continues I recommended that he see a marketing data specialist. Assessment & Plan (01/13/2024 11:08 AM CDT): He is going through some further evaluation with a ramp service employee which I think is appropriate. Could be an asthma type cough. We will talk further after the CT scan is complete. Assessment & Plan (12/02/2023 8:08 PM CDT): This seems to be worse. Has marketing data specialist is addressing this and he has [...] does have a follow up with his ramp service employee. I talked with him about trying nortriptyline [...] pretty easily if he stops taking his [id number] Nexium which he takes once a day. 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 Horn has multilevel lumbar stenosis with [...] (04/24/2021): Added automatically from request for surgery [id number] Assessment & Plan (07/17/2021 4:18 PM CDT): [...] How often do you attend chur or caodaism services? 1 to 4 times per year 10/29/2021 Do you belong to any clubs o r organizations such as pentecostal groups, unions, fraternal or athletic groups, or [...] on file Legal Sex Male 12:56 PM PROFESSOR OF EDUCATION Gender Identity Male 05/23/2021 12:08 PM PROFESSOR OF EDUCATION Sexual Orientation Straight 05/23/2021 12 :08 PM PROFESSOR OF EDUCATION Last Filed Vital Signs Vital Sign Reading Time Taken Comments Blood Pressure 110/60 05/03/2024 9:15 AM PROFESSOR OF EDUCATION Pulse 86 05/03/2024 9:15 AM PROFESSOR OF EDUCATION Temperature 36.1 C (97 F) 02/22/2024 10:05 AM PROFESSOR OF EDUCATION Respiratory Rate 18 06/14/2024 10:02 AM CDT Oxygen Saturation 96% 05/03/2024 9:15 AM PROFESSOR OF EDUCATION Inhaled Oxygen Concentration - - Weight 81.6 kg (180 lb) 06/14/2024 10:02 AM CDT Height 182.9 cm (6') 06/14/2024 10:02 AM CDT Body Mass Index 24.41 06/14/2024 10:02 AM CDT Plan of Treatment Not on file Medical Devices Implanted Type Area Strainer Cleaner Device Identifier Shelf Expiration Date Model / Serial / Lot [employer] Allograft Bone Putty 2.5cc 700-025 - [id number] Implanted:Qty: 1 on 10/11/2021 by Jayy Granger MD at [facility] N/A: Spine Lumbar [employer] Inc [id number] 04/29/2024 700-025 / / [id number] [employer] Inqu Paste Mix Plus Embedded Systems Designer 10cc Bone Graft Hyaluronic Acid Poly [id number] - [id number] Implanted:Qty: 1 on 10/11/2021 by Jayy Granger MD at [facility] N/A: Spine Lumbar [employer] [id number] / / Core Link Foundation L31 Mm X W10 Mm X H11 Mm 3d 12 D Curve Cage Spinal [id number] - [id number] Implanted:Qty: 1 on 10/11/2021 by Jayy Granger MD at [facility] N/A: Spine Lumbar Core Link [id number] 04/12/2023 [id number] / / [id number] Core Link [place] 6.5mm 45mm Spine Pedicle Screw Bone 5500 Series [id number] - [id number] Implanted:Qty: 4 on 10/11/2021 by Jayy Granger MD at [facility] N/A: Spine Lumbar Core Link [id number] / / Core Link [place] Screw Set 5500 Series [id number] - [id number] Implanted:Qty: 4 on 10/11/2021 by Jayy Granger MD at [facility] N/A: Spine Lumbar Core Link [id number] / / Core Link [place] 5.5mm 40mm Line Prebent Nabor Spinal Nonsterile 5500 Series [id number] - [id number] Implanted:Qty: 2 on 10/11/2021 by Jayy Granger MD at [facility] N/A: Spine Lumbar Core Link [id number] / / Procedures Procedure Name Priority Date/Time Associated Diagnosis Comments IMMUNOTYPING Routine 05/03/2024 10:00 AM PROFESSOR OF EDUCATION Polyneuropathy from Last 3 Months Results * Immunotyping, serum with interpretation (05/03/2024 10:00 AM PROFESSOR OF EDUCATION) Immunosubtraction Please see comment Comment: NO PARAPROTEIN DETECTED Reviewed and signed by Alejandro Donis MD, PhD 05/04/2024 Testing performed by: [facility], [address] [place] [address] Blood 05/03/2024 10:0 0 AM PROFESSOR OF EDUCATION 05/03/2024 2:58 PM PROFESSOR OF EDUCATION Campbell Araya MD LAB BLOOD ORDERABLES Final Res ult [facility] [address] [facility] Department [place] [address] from Last 3 Months Insurance MEDICARE [employer] SENIOR SUPPLEMENT MEDICARE [facility] SENIOR SUPPLEMENT MEDICARE AET SENIOR SUPPLEMENT MEDICARE [facility] MEDICARE AET[employer] SENIOR SUPPLEMENT MEDICARE Advance Directives For more information, please contact: [phone] Documents on File Type Date Recorded Patient Machine Helper Expl anation Power of Technician Automated Equipment 02/22/2024 5:42 AM * Full Code (Latest Code Status on File) Date Activated Date Inactivated Comments 10/28/2021 10:29 PM 11/06/2021 5:42 PM * Full Code Date Activated Date Inactivated Comments 10/11/2021 4:02 PM 10/12/2021 5:28 PM Care Teams Laborer Demolition Relationship Specialty Start Date End Date Anil Gupta MD [address] [facility] [place] [id number] PCP - General Internal Medicine 04/19/21 Anil Gupta MD [address] [place] [address] Internal Medicine 04/19/21 Adrien Young MD [address] [facility] [address] [place] [address] Consulting Physician Infectious Diseases 11/06/21 Milad Garcia MD [address] [facility] [address] [place] [address] Consulting Physician Orthopedic Surgery 03/02/23 Doni Marino MD [address] [place] [address] [address] [place] [address] Referring Physician Pulmonary Disease 02/09/24 Edmundo Guajardo MD [address] [place] [address] Consulting Physician Otolaryngology 02/22/24
--- OUTSIDE RECORDS SUMMARY | 2024-06-14 13:20 | XMS_ITS | Encounter Summary ---
Author Organization [facility] Address [address] [place] [phone] Phone Care Team Providers Care Refinery Operator Helper Name Role Phone Anil Gupta MD Primary Care Provider Encounter Details Date Type Department Care Team (Late st Contact Info) Description 02/28/2021 Refill [facility] Nephrology and Hypertension [facility], [address] [address] Xander Noel MD [address] [facility], [address] [facility] [place] [address] Social History Tobacco Use Types Packs/Day Years [...] going to and I will call in Collective Biasine documented in this encounter Plan of Treatment Not on file documented as of this encounter Visit Diagnoses Not on filedocumented in this encounter Care Teams Refinery Operator Helper Relationship Specialty Start Date End Date Anil Gupta MD [address] [facility] [address] [place] [address] PCP - General Internal Medicine 01/30/21 documented as of this encounter
--- OUTSIDE RECORDS SUMMARY | 2024-06-14 13:20 | XMS_ITS | Clinical Summary ---
Author Organization [facility] Address [address] [place] [phone] Phone Care Team Providers Care Biofuels Plant Construction Worker Name Role Phone Anil Gupta MD Primary Care Provider [phone] Allergies No known active allergies Medications Medication [...] (09/14/2021): Added automatically from request for surgery [id number] Last Assessment & Plan: Mr. Horn is [...] Comments Blood Pressure 112/70 02/24/2022 1:54 PM FORGE HAND Pulse 72 02/24/2022 1:54 PM FORGE HAND Temperature 35.4 C (95.7 F) 02/24/2022 1:54 PM FORGE HAND Respiratory Rate - - Oxygen Saturation - - Inhaled Oxygen Concentration - - Weight 86.2 kg (190 lb) 02/24/2022 1:54 PM FORGE HAND Height 182.9 cm (6') 02/24/2022 1:54 PM FORGE HAND Body Mass Index 25.77 02/24/2022 1:54 PM FORGE HAND Plan of Treatment Health Maintenance Due Date Last Done Comments Pneumococcal PPSV23/PCV13 65 + Years / High and Highest Risk (2 of 4 - PPSV23 or PCV20) 04/21/2020 02/25/2020 Influenza Vaccine (#1) 2023 12/20/2021, 2020 Care Teams Biofuels Plant Construction Worker Relationship Specialty Start Date End Date Anil Gupta MD [address] [facility] [address] [place] [address] PCP - General Internal Medicine 01/30/21
--- OUTSIDE RECORDS SUMMARY | 2024-06-14 13:20 | XMS_ITS | Clinical Summary ---
Author Organization [facility] Address [facility] [place] [address] Care Team Providers Care Plastic Surgery Manager Name Role Phone Anil Gupta MD Primary Care Provider [phone] Allergies No known active allergies Medications valACYclovir [...] mouth 2 (two) times daily. 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 Not on file Not on f ile Last Filed Vital Signs Vital Sign Reading Time Taken Comments Blood Pressure 120/68 03/19/2021 9:34 AM M1A1 TANK CREWMAN Pulse 83 03/19/2021 9:34 AM M1A1 TANK CREWMAN Temperature 36.8 C (98.2 F) 03/19/2021 9:34 AM M1A1 [employer]ANK CREWMAN Respiratory Rate 20 03/19/2021 9:34 AM M1A1 TANK CREWMAN Oxygen Saturation 99% 03/19/2021 9:34 AM M1A1 TANK CREWMAN Inhaled Oxygen Concentration - - Weight 85 kg (187 lb 6.4 oz) 03/19/2021 9:34 AM M1A1 TANK CREWMAN Height 182.9 cm (6') 03/19/2021 9:34 AM M1A1 TANK CREWMAN Body Mass Index 25.42 03/19/2021 9:34 AM M1A1 TANK CREWMAN Plan of Treatment Health Maintenance Due Date Last Done Comments Colorectal Cancer Screening Colonoscopy (10 Years) 1950 Hepatitis C 1969 DTaP, Tdap and Td Vaccines ( 1 - Tdap) 1970 Zoster Vaccines (1 of 2) 2001 Annual Medicare Wellness Visit 02/01/2016 Pneumococcal Vaccine: 65+ Years (2 of 2 - PPSV23 or PCV20) 02/24/2021 02/25/2020, 02/04/2019, 02/19/2016 COVID-19 Vaccine (3 - 2023-2 5 season) 2023 06/20/2020, 05/23/2020 Influenza Adult (#1) 2023 02/19/2021, 12/19/2019 RSV Immunization or 60+ Years (1 - 1-dose 75+ series) 2026 Meningococcal B Vaccine Aged Out No l onger eligible based on patient's age to complete this topic Meningococcal Vaccine Aged Out No greg marquez eligible based on patient's age to complete this topic RSV Immunizations Under 20 Months Aged Out No longer eligible b ased on patient's age to complete this topic Insurance MEDICARE AETNA Care Teams Plastic Surgery Manager Relationship Specialty Start Date End Date Anil Gupta MD [address] [place] [address] PCP - General INTERNAL MEDICINE 10/17/20
--- OUTSIDE RECORDS SUMMARY | 2024-06-14 13:21 | XMS_ITS | Encounter Summary ---
Author Organization [facility] Address [address] [place] [address] Phone Care Team Providers Care Sales Project Coordinator Name Role Phone Anil Gupta MD Primary Care Provider [phone] Anil Gupta MD Unavailable [phone] Adrien Young MD Unavailable [phone] Milad Garcia MD Unavailable Doni Marino MD Unavailable [phone] Edmundo Guajardo MD Unavailable [phone] Reason for Visit * Reason Comments Sinusitis Follow up sinus surg papa 02/22/24 Encounter Details Date Type Department Care Team (Late st Contact Info) Description 06/14/2024 10:15 AM CDT Office Visit [facility] Otolaryngology [address] [place] [address] Edmundo Guajardo MD [address] [place] [phone] Chronic cough (Primary Dx); Chronic pansinusitis Social [...] any clubs o r organizations such as pentecostalism groups, unions, fraternal or athletic groups, or [...] file Legal Sex Male 12:56 PM DIGITAL MEDIA COORDINATOR Gender Identity Male 05/23/2021 12:08 PM DIGITAL MEDIA COORDINATOR Sexual Orientation Straight 05/23/2021 12 :08 PM DIGITAL MEDIA COORDINATOR documented as of this encounter Last Filed Vital Signs Vital Sign Reading Time Taken Comments Blood Pressure - - Pulse - - Temperature - - Respiratory Rate 18 06/14/2024 10:02 AM CDT Oxygen Saturation - - Inhaled Oxygen Concentration - - Weight 81.6 kg (180 lb) 06/14/2024 10:02 AM CDT Height 182.9 cm (6') 06/14/2024 10:02 AM CDT Body Mass Index 24.41 06/14/2024 10:02 AM CDT documented in this encounter Ordered Prescriptions Prescription Sig Dispense Quantity Refills Last Filled Start Date End Date sodium chloride 0.9% 0.9 % irrigationIndicati ons:Chronic pansinusitis Mix with 160mg Tobramycin with 1 liter of sodium chloride SIG: Using a bulb syringe, rinse both nostrils BID x 14 days 1000 mL 2 06/14/2024 tobramycin (NEBCIN) 40 mg/mL solutionIndication s:Chronic pansinusitis 160mg Tobramycin in 1 liter of sodium chloride SIG: Using a bulb syringe, rinse both nostrils BID x 14 days 4 mL 2 06/14/2024 methylPREDNISolone (MEDROL DOSEPACK) 4 mg Dosepack Take as directed on package 1 packet 06/14/2024 5 ciprofloxacin (CIPRO) 500 mg tablet Take 1 tablet (500 mg total) by mouth 2 (two) times a day for 14 days 28 tablet 06/14/2024 5 documented in this encounter Progress Notes * Edmundo Guajardo MD - 06/14/2024 10:15 AM CDT Douglas Horn is a 74 y.o. male was seen in the office today. Primary care provider is Anil Gupta MD . Chief Complaint: Chief Complaint Patient presents with Sinusitis Follow up sinus surgery 02/22/24 HPI: He comes to clinic today for evaluation his sinuses. They seem to be doing okay although he notes occasional discharge. He has been coughing again. He took a trip to [place] and it bothered him the whole time. He feels a tickle in his throat. Is reflux disease seems to be under pretty good control. He takes Nexium every morning. He also takes Pamelor 25 mg a day for neuropathy. I have reviewed past medical, surgical, family [...] Resp 18 Ht 182.9 cm (6') Wt 81.6 kg (180 lb) BMI 24.41 kg/m?? PHYSICAL EXAMINATION: GENERAL: Normal NEURO/PSYCH: Affect [...] or polyps are seen on either side. A large crust was present in the right middle meatus and this was removed. ORAL CAVITY/ OROPHARYNX: Skin of the lips [...] is clear saliva flow from Stensen's and Sandra's ducts bilaterally. LYMPHATIC: No cervical lymphadenopathy. MUSCULOSKELATAL: Ambulates without difficulty. Neck full range of motion. RESPIRATORY: Breathing comfortably without audible wheeze, stertor or stridor. PROCEDURE:Nasal Endoscopy Indications: Patient is status post endoscopic sinus [...] sinus cavities were inspected for mucosal changes. Mild crusting noted in the ethmoid cavities bilaterally. Overall they are much more open. Maxillary sinus openings are patent. No significant discharge noted. The patient tolerated the procedure without complicationsand was returned to ambulatory status. FINDINGS: The nasal septum has a little bit dry and the inferior turbinates are unremarkable. There is some crusting around the middle turbinates bilaterally. A large crust and some debris was removed from theright middle meatus. Culture taken. ASSESSMENT & PLAN: Chronic pansinusitis I am going to treat his sinusitis. Suspect Pseudomonas. We talked about that. I am placing him on a2 week course of Cipro as well as a tobramycin rinse. Also we would like to have him do a course ofsteroids. I did inform him that his frontal sinus on the right appears to be occluded with swollen mucosa. Ultimately if his symptoms continue I probably would proceed with a sinus CT scan in anticipation of possibly needing surgery again. He understands. I will see him in 4 weeks. Cough Think the cough is probably due to sinusitis but need to consider possibility of reflux and neurogenic cough. May need to eventually adjust medications accordingly. He understands. Edmundo Guajardo MD documented in this encounter Miscellaneous Notes * Assessment & Plan Note - Edmundo Guajardo MD - 06/14/2024 12:21 PM CDT Associated Problem(s): Cough Think the cough is probably due to sinusitis but need to consider possibility of reflux and neurogenic cough. May need to eventually adjust medications accordingly. He understands. * Assessment & Plan Note - Edmundo Guajardo MD - 06/14/2024 12:20 PM CDT Associated Problem(s): Chronic pansinusitis I am going to treat his sinusitis. Suspect Pseudomonas. We talked about that. I am placing him on a2 week course of Cipro as well as a tobramycin rinse. Also we would like to have him do a course ofsteroids. I did inform him that his frontal sinus on the right appears to be occluded with swollen mucosa. Ultimately if his symptoms continue I probably would proceed with a sinus CT scan in anticipation of possibly needing surgery again. He understands. I will see him in 4 weeks. documented in this encounter Plan of Treatment Scheduled Orders Name Type Priority Associated Diagnoses Orde r Schedule Aerobic culture and gram stain Drainage Sinus, maxillary, right Microbiology Routine Chronic pansinusitis Expected: 06/17/2024, Expires: 06/14/2025 documented as of this encounter Visit Diagnoses Diagnosis Chronic cough- Primary Cough Chronic pansinusitis Other chronic sinusitis documented in this encounter Discontinued Medications Medication Sig Discontinue Reason Start Date End Da te tobramycin (NEBCIN) 40 mg/mL solutionIndications:Chr onic pansinusitis 160mg Tobramycin in 1 liter of sodium chloride SIG: Using a bulb syringe, rinse both nostrils BID x 14 days Reorder 03/04/2024 06/14/2024 sodium chloride 0.9% 0.9 % irrigationIndications:C hronic pansinusitis Mix with 160mg Tobramycin with 1 liter of sodium chloride SIG: Using a bulb syringe, rinse both nostrils BID x 14 days Reorder 03/04/2024 06/14/2024 documented as of this encounter Care Teams Sales Project Coordinator Relationship Specialty Start Date End Date Anil Gupta MD [address] [place] [address] PCP - General Internal Medicine 04/19/21 Anil Gupta MD [address] [place] [address] Internal Medicine 04/19/21 Adrien Young MD [address] [facility] [address] [place] [address] Consulting Physician Infectious Diseases 11/06/21 Milad Garcia MD [address] [facility] [address] [place] [address] Consulting Physician Orthopedic Surgery 03/02/23 Doni Marino MD [address] [facility] [address] [place] [address] Referring Physician Pulmonary Disease 02/09/24 Edmundo Guajardo MD [address] [place] [address] Consulting Physician Otolaryngology 02/22/24 documented as of this encounter
--- OUTSIDE RECORDS SUMMARY | 2024-06-14 13:21 | XMS_ITS | Patient Health Record ---
Author Organization [facility] Address [address] [place] [address] Care Team Providers Care Perianesthesia Rn Name Role Phone PCP, Does not have a Primary Care Provider Unava ilable Allergies No Known Allergies Reason For Referral No Information Plan Of Treatment No Information Insurance Providers Payer Name Payer Address Payer Phone Subscriber Number Group Number Insured Name Patient Relationship to Insured Coverage Start Date Coverage End Date Self Pay [address] [place] [address] null, null Self - patient is the insured 1 P[employer] [id number] [place] [address] [id number] LIZETTE PÉREZ Self - patient is the insured 1
--- OUTSIDE RECORDS SUMMARY | 2024-06-14 13:21 | XMS_ITS | Clinical Summary ---
Author Organization [facility] Address [address] [place] [address] Care Team Providers Care Mix House Operator Name Role Phone Anil Gupta MD Primary Care Provider [phone] Anil Gupta MD Unavailable [phone] Adrien Young MD Unavailable Milad Garcia MD Unavailable [phone] Doni Marino MD Unavailable Edmundo Guajardo MD Unavailable [phone] Allergies No known active allergies Medications rOPINIRole [...] 12/02/2023 Assessment & Plan (03/05/2024 1:46 PM INSPECTOR WEIGHTS AND MEASURES): At his request we are going to [...] weeks. Assessment & Plan (04/05/2024 10:33 AM INSPECTOR WEIGHTS AND MEASURES): Sinuses are open and I do not [...] months. Assessment & Plan (03/05/2024 1:45 PM INSPECTOR WEIGHTS AND MEASURES): His sinuses look much better. The nose [...] understands. Assessment & Plan (04/05/2024 10:33 AM INSPECTOR WEIGHTS AND MEASURES): Overall improved but somewhat persistent. Could be due to his bronchiectasis. If it continues I recommended that he see a magneto specialist. Assessment & Plan (01/13/2024 11:08 AM CDT): He is going through some further evaluation with a voice engineer which I think is appropriate. Could be an asthma type cough. We will talk further after the CT scan is complete. Assessment & Plan (12/02/2023 8:08 PM CDT): This seems to be worse. Has magneto specialist is addressing this and he has [...] does have a follow up with his voice engineer. I talked with him about trying nortriptyline [...] pretty easily if he stops taking his vsbm-ert-enyhjuo Nexium which he takes once a day. 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 has multilevel lumbar stenosis with [...] (04/24/2021): Added automatically from request for surgery [id number] Assessment & Plan (07/17/2021 4:18 PM CDT): [...] Description 06/14/2024 10:15 AM CDT Office Visit [facility] Otolaryngology [address] [place] [phone] Edmundo Guajardo MD Chronic cough (Primary Dx); Chronic pansinusitis 05/04/2024 Telephone [facility] Neurology [address] [place] [address] [address] [place] [address] Campbell Araya MD Test Results (LAB RESULTS ) 05/03/2024 10:00 AM INSPECTOR WEIGHTS AND MEASURES Lab [facility] Medical Office [address] [place] [address] Polyneuropathy 05/03/2024 9:30 AM INSPECTOR WEIGHTS AND MEASURES Office Visit [facility] Neurology [address] [place] [address] [address] [place] [address] Campbell Araya MD Polyneuropathy (Primary Dx) 04/05/2024 10:15 AM INSPECTOR WEIGHTS AND MEASURES Office Visit [facility] Otolaryngology [address] [place] [phone] Edmundo Guajardo MD Chronic cough (Primary Dx); Chronic pansinusitis from Last 3 Months Surgical History Surgery Date Site/Laterality Comments MICRODISCECTOMY LUMBAR 06/03/2021 S/P Right L5-S1 Microdiscectomy ([facility]) LATERAL FUSION LUMBAR SPINE 10/11/2021 S/P L5-S1 TLIF ([facility]) INCISION AND DRAINAGE OF WOUND 10/28/2021 - 11/27/2021 X2 - Dr. Sheets & Dr. Garcia SEPTOPLASTY 03/30/2015 - 03/29/2016 EPIDURAL STEROID INJECTION and had INJECTION FACET JOINT L3-4, L4-5 TONSILLECTOMY AND ADENOIDECTOMY as a child VASECTOMY COLONOSCOPY SINUS SURGERY 02/22/2024 Bilateral IMAGE GUIDED BILATERAL ENDOSCOPIC ANTERIOR ETHMOIDECTOMY, BILATERAL FRONTAL SINUSOTOMY AND BILATERAL MAXILLARY ANTROSTOMY WITH TISSUE REMOVAL Medical History Medical History Date Comments Peripheral neuropathy GERD (gastroesophageal reflux disease) Arthritis Pseudomonas respiratory infection comes and goes - on assisted antibiotics to prevent further mucous build up [...] often do you attend chur ch or yazidism services? 1 to 4 times per year 10/29/2021 Do you belong to any clubs o r organizations such as jainism groups, unions, fraternal or athletic groups, or [...] on file Legal Sex Male 12:56 PM INSPECTOR WEIGHTS AND MEASURES Gender Identity Male 05/23/2021 12:08 PM INSPECTOR WEIGHTS AND MEASURES Sexual Orientation Straight 05/23/2021 12 :08 PM INSPECTOR WEIGHTS AND MEASURES Obstetrics History Last Filed Vital Signs Vital Sign Reading Time Taken Comments Blood Pressure 110/60 05/03/2024 9:15 AM INSPECTOR WEIGHTS AND MEASURES Pulse 86 05/03/2024 9:15 AM INSPECTOR WEIGHTS AND MEASURES Temperature 36.1 C (97 F) 02/22/2024 10:05 AM INSPECTOR WEIGHTS AND MEASURES Respiratory Rate 18 06/14/2024 10:02 AM CDT Oxygen Saturation 96% 05/03/2024 9:15 AM INSPECTOR WEIGHTS AND MEASURES Inhaled Oxygen Concentration - - Weight 81.6 kg (180 lb) 06/14/2024 10:02 AM CDT Height 182.9 cm (6') 06/14/2024 10:02 AM CDT Body Mass Index 24.41 06/14/2024 10:02 AM CDT Plan of Treatment Health Maintenance Due Date [...] history exists Medical Devices Implanted Type Area Tallow Refiner Device Identifier Shelf Expiration Date Model / Serial / Lot [employer] Inc Allograft Bone Putty 2.5cc 700-025 - [id number] Implanted:Qty: 1 on 10/11/2021 by Jayy Granger MD at [facility] N/A: Spine Lumbar Cer[employer] Inc [id number] 04/29/2024 700-025 / / [id number] [employer] Inqu Paste Mix Plus Cmm Inspector 10cc Bone Graft Hyaluronic Acid Poly [id number] - [id number] Implanted:Qty: 1 on 10/11/2021 by Jayy Granger MD at [facility] N/A: Spine Lumbar [employer] [id number] / / Core Link Foundation L31 Mm X W10 Mm X H11 Mm 3d 12 D Curve Cage Spinal [id number] - [id number] Implanted:Qty: 1 on 10/11/2021 by Jayy Granger MD at [facility] N/A: Spine Lumbar Core Link [id number] 04/12/2023 [id number] / / [id number] Core Link Midland 6.5mm 45mm Spine Pedicle Screw Bone 5500 Series [id number] - [id number] Implanted:Qty: 4 on 10/11/2021 by Jayy Granger MD at [facility] N/A: Spine Lumbar Core Link [id number] / / Core Link Midland Screw Set 5500 Series 67314-16 - [id number] Implanted:Qty: 4 on 10/11/2021 by Jayy Granger MD at [facility] N/A: Spine Lumbar Core Link [id number] / / Core Link Midland 5.5mm 40mm Line Prebent Nabor Spinal Nonsterile 5500 Series [id number] - [id number] Implanted:Qty: 2 on 10/11/2021 by Jayy Granger MD at [facility] N/A: Spine Lumbar Core Link [id number] / / Procedures Procedure Name Priority Date/Time Associated Diagnosis Comments IMMUNOTYPING Routine 05/03/2024 10:00 AM INSPECTOR WEIGHTS AND MEASURES Polyneuropathy from Last 3 Months Results * Immunotyping, serum with interpretation (05/03/2024 10:00 AM INSPECTOR WEIGHTS AND MEASURES) Immunosubtraction Please see comment Comment: NO PARAPROTEIN DETECTED Reviewed and signed by Alejandro Donsi MD, PhD 05/04/2024 Testing performed by: [facility], [address] [facility], [place]., [address] Blood 05/03/2024 10:0 0 AM INSPECTOR WEIGHTS AND MEASURES 05/03/2024 2:58 PM INSPECTOR WEIGHTS AND MEASURES Campbell Araya MD LAB BLOOD ORDERABLES Final Res ult [facility] [address] [facility] Department of Laboratories [place], [place] [id number] from Last 3 Months Insurance MEDICARE AETNA SENIOR SUPPLEMENT MEDICARE COUNT INCLUDES THE [facility] SENIOR SUPPLEMENT MEDICARE T SENIOR SUPPLEMENT MEDICARE [facility] MEDICARE AETNA SENIOR SUPPLEMENT MEDICARE Advance Directives For more information, please contact: [phone] Documents on File Type Date Recorded Patient Calendar Control Clerk Blood Bank Expl anation Power of Music Instructor 02/22/2024 5:42 AM * Full Code (Latest Code Status on File) Date Activated Date Inactivated Comments 10/28/2021 10:29 PM 11/06/2021 5:42 PM * Full Code Date Activated Date Inactivated Comments 10/11/2021 4:02 PM 10/12/2021 5:28 PM Care Teams Mix House Operator Relationship Specialty Start Date End Date Anil Gupta MD [address] [facility] [address] [place] [address] PCP - General Internal Medicine 04/19/21 Anil Gupta MD [address] [facility] [address] [place] [address] Internal Medicine 04/19/21 Adrien Young MD [address] [facility] [address] [place] [address] Consulting Physician Infectious Diseases 11/06/21 Milad Garcia MD [address] [facility] [address] [place] [address] Consulting Physician Orthopedic Surgery 03/02/23 Doni Marino MD [address] [facility] [address] [place] [address] Referring Physician Pulmonary Disease 02/09/24 Edmundo Guajardo MD [address] [place] [address] Consulting Physician Otolaryngology 02/22/24
== END 2024-06-14 11:36 | disposition home or self-care (01) ==
LOC: ANHSURGERY 11:41
PROVIDERS: Anesthesiology; PCP Internal Medicine; Visit Provider Anesthesiology Pain Medicine
DX: R94.31 Abnormal electrocardiogram [ECG] [EKG] (principal); E87.1 Hypo-osmolality and hyponatremia; E78.5 Hyperlipidemia, unspecified
CPT/HCPCS: 36415; 80048; 93005

== ENCOUNTER 2024-06-21 00:19 | Day surgery (SDC) | payer MEDICARE, SELFPAY ==
[2024-06-08 11:42] VITALS: BMI 24.7
--- NOTE | 2024-06-08 11:54 | PC.NURSE ---
Report to the Outpatient Waiting Room, entrance under the green pavilion located off [facility], at time __0730am on date __06/21/24 . Planned Procedure Time: _0930am .? Time changes happen often and if your time is changed the preop area will call you the afternoon before. - You and your visitor will be asked to self-screen and do not enter if you have any COVID symptoms. Please call surgeon if you need to reschedule. - A mask is optional within the hospital at this time. Patients may have clear liquids (water, carbonated beverages, clear teas, apple juice) until 3 hours prior to surgery with a maximum of 20 ounces. - No food from midnight until time of surgery and no smoking, or chewing tobacco (or any form of nicotine). No chewing gum, candy or mints. (0630am) - Take only the following medications with a SIP of water on the morning of surgery: Inhalers as directed DO NOT STOP ANY OF YOUR OTHER PRESCRIPTION MEDICATIONS PRIOR TO SURGERY EXCEPT THE FOLLOWING Hold all vitamins and supplements for 3 days per anesthesiologist.Date to take last dose__05/28/24 Medications to discontinue per physician None Date to take last dose None Please no make-up, nail thai, hairspray, perfume, deodorant, or body powder the day of surgery.? No jewelry (including any body piercings) or valuables the day of surgery, leave them at home.? Please take a shower or bath the night before, or the morning of, surgery with an antibacterial soap.? Wear comfortable, loose fitting clothing.? - Jewelry must be removed prior to entering the operating room.? Rings and piercings that are not removed may be cut off. - The hospital will not accept responsibility for valuables.? - Please leave all valuables, including medications, at home the day of surgery. If you are going home after surgery, a licensed spike driver must drive you home.? - NO public transportation without another adult if you receive anesthesia. - We recommend that an adult stay with you for 24 hours following discharge. - We also recommend that you do not drive, make important decision, drink alcoholic beverages, or take any drugs that were not prescribed by your health care provider for at least 24 hours after your discharge time. Follow any additional instructions given to you from your surgeon. Telephone instructions given to _Patient and asked if any additional questions and then verbalized understanding. Patient advised to call surgeon office or pre surgery nurse liaison [phone] if any additional questions.
--- NOTE | 2024-06-14 13:39 | PC.NURSE ---
PATIENT CALLED TO REPORT THAT HE HAS A MINOR INFECTION IN ONE NOSTRIL, FOUND BY ENT TODAY. STARTING ON CIPRO BID. INSTR TO CALL DR VILLALTA WITH REPORT OF THIS, HE STATES THAT HE'LL CALL NOW. INSTR TO TAKE CIPRO ON MORNING OF SURGERY WITH SIPS OF WATER. HE RELAYS UNDERSTANDING.
[2024-06-21] VITALS (10 sets, daily range): BP systolic 94–116; BP diastolic 63–73; PULSE 65–98; RESP 12–21; TEMP 36.4–36.5; O2SAT 92–98
--- NOTE | ~2024-06-21 | XR_ITS ---
EXAMINATION: XR fluoroscopy no charge DATE: 06/21/2024 10:00 CDT INDICATION: PERCUTANEOUS EPIDURAL STIMULATION LEADS . TECHNIQUE: 4 fluoroscopic images of the thoracic spine were obtained during percutaneous epidural sti mulator lead placement, performed by Aydin Irby MD. I was not present during the procedure. Flu oroscopy exposure time was 278.2 seconds. Air Kerma 142.29 mGy. DAP 2.49 mGym2. COMPARISON: 05/15/2023 FINDINGS/IMPRESSION: Fluoroscopic documentation of percutaneous epidural stimulator lead placement. Please refer to the op erative note for complete procedural details . Reviewed, dictated and finalized at location K.
--- OUTSIDE RECORDS SUMMARY | 2024-06-21 00:22 | XMS_ITS | Clinical Summary ---
Author Organization [facility] Address [address] [place] [address] Care Team Providers Care Hand Icer Name Role Phone Sukhdev Santos MD Primary Care Provider [phone] Source Comments [facility],non-owned Affiliates and Associated Physician Practices is amultiple site organization consisting of ambulatory clinics and hospital sitesin [place], [place], [place] and [place]. This disclosure is being madepursuant to the Care Everywhere program and may not contain all information available regarding this patient. Last updated 17.[facility] Allergies No known active allergies Medications * [...] age to complete this topic Care Teams Hand Icer Relationship Specialty Start Date End Date Sukhdev Santos MD [address] [place] [address] PCP - General 12/15/18
--- OUTSIDE RECORDS SUMMARY | 2024-06-21 00:22 | XMS_ITS | Continuity of Care Document ---
Author Organization [facility] Address [address] [place] [address] Phone Care Team Providers Care Liquid Floor And Wall Applier Name Role Phone Chavez OD, Terry Unavailable Unavailable Advance Directives Directive Yes / No Effective Date File Name No Information Encounters Encounter Description Practice Location Reason(s) For Visit Diagnoses Date Provider Providers Copied on Encounter [facility], [address], [place], [place], [id number], [place] tel:[phone] [facility] No Information [phone] Chavez OD Terry. [address], [place], [address], [place]. tel:[phone] Family History Family Member Type Diagnosis Age At Onset No Information Payers Payer name Insurance type Covered republican ID Authoriza tion(s) [employer] Vision Plan CI [id number] Social History Type Description Quantity Date [...]
--- OUTSIDE RECORDS SUMMARY | 2024-06-21 00:22 | XMS_ITS | Encounter Summary ---
Author Organization [facility] Address [address] [place] [address] Phone Care Team Providers Care Tape Recording Machine Operator Name Role Phone Anil Gupta MD Primary Care Provider [phone] Encounter Details Date Type Department Care Team (Late st Contact Info) Description 02/28/2021 Refill [facility] Nephrology and Hypertension [facility], [address] [address] Xander Noel MD [address] [facility], [address]ITE [facility] [place] [address] Social History Tobacco Use Types Packs/Day Years [...] going to and I will call in [employer] formerly [employer] documented in this encounter Plan of Treatment Not on file documented as of this encounter Visit Diagnoses Not on filedocumented in this encounter Care Teams Tape Recording Machine Operator Relationship Specialty Start Date End Date Anil Gupta MD [address] [facility] [address] [place] [address] PCP - General Internal Medicine 01/30/21 documented as of this encounter
--- OUTSIDE RECORDS SUMMARY | 2024-06-21 00:22 | XMS_ITS | Patient Health Record ---
Author Organization [facility] Address [address] [place] [address] Care Team Providers Care Home Health Speech Therapist Name Role Phone PCP, Does not have a Primary Care Provider Unava ilable Allergies No Known Allergies Reason For Referral No Information Plan Of Treatment No Information Insurance Providers Payer Name Payer Address Payer Phone Subscriber Number Group Number Insured Name Patient Relationship to Insured Coverage Start Date Coverage End Date Self Pay [address] [facility] [address] [place] [address] null, null Self - patient is the insured 1 [employer] [id number] [place] [address] [id number] [id number] LIZETTE PÉREZ Self - patient is the insured 1
--- OUTSIDE RECORDS SUMMARY | 2024-06-21 00:22 | XMS_ITS | Clinical Summary ---
Author Organization [facility] Address [facility] [place] [address] Care Team Providers Care Resident Buyer Name Role Phone Anil Gupta MD Primary Care Provider [phone] Allergies No known active allergies Medications valACYclovir [...] mouth 2 (two) times daily. 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 Not on file Not on f ile Last Filed Vital Signs Vital Sign Reading Time Taken Comments Blood Pressure 120/68 03/19/2021 9:34 AM UTILIZATION COORDINATOR Pulse 83 03/19/2021 9:34 AM UTILIZATION COORDINATOR Temperature 36.8 C (98.2 F) 03/19/2021 9:34 AM UTILIZATION COORDINATOR Respiratory Rate 20 03/19/2021 9:34 AM UTILIZATION COORDINATOR Oxygen Saturation 99% 03/19/2021 9:34 AM UTILIZATION COORDINATOR Inhaled Oxygen Concentration - - Weight 85 kg (187 lb 6.4 oz) 03/19/2021 9:34 AM UTILIZATION COORDINATOR Height 182.9 cm (6') 03/19/2021 9:34 AM UTILIZATION COORDINATOR Body Mass Index 25.42 03/19/2021 9:34 AM UTILIZATION COORDINATOR Plan of Treatment Health Maintenance Due Date [...] this topic Insurance MEDICARE AETNA Care Teams Resident Buyer Relationship Specialty Start Date End Date Anil Gupta MD [address] [place] [address] PCP - General INTERNAL MEDICINE 10/17/20
--- OUTSIDE RECORDS SUMMARY | 2024-06-21 00:22 | XMS_ITS | Clinical Summary ---
Author Organization [facility] Address [address] [place] [address] Phone Care Team Providers Care Chemical Test Engineer Name Role Phone Anil Gupta MD Primary Care Provider [phone] Allergies No known active allergies Medications Medication [...] (09/14/2021): Added automatically from request for surgery [id number] Last Assessment & Plan: Mr. Horn is [...] Comments Blood Pressure 112/70 02/24/2022 1:54 PM SCHOOL PATROL Pulse 72 02/24/2022 1:54 PM SCHOOL PATROL Temperature 35.4 C (95.7 F) 02/24/2022 1:54 PM SCHOOL PATROL Respiratory Rate - - Oxygen Saturation - - Inhaled Oxygen Concentration - - Weight 86.2 kg (190 lb) 02/24/2022 1:54 PM SCHOOL PATROL Height 182.9 cm (6') 02/24/2022 1:54 PM SCHOOL PATROL Body Mass Index 25.77 02/24/2022 1:54 PM SCHOOL PATROL Plan of Treatment Health Maintenance Due Date Last Done Comments Pneumococcal PPSV23/PCV13 65 + Years / High and Highest Risk (2 of 4 - PPSV23 or PCV20) 04/21/2020 02/25/2020 Influenza Vaccine (#1) 2023 12/20/2021, 2020 Care Teams Chemical Test Engineer Relationship Specialty Start Date End Date Anil Gupta MD [address] [facility] [address] [place] [address] PCP - General Internal Medicine 01/30/21
[2024-06-21] MEDS: LACTATED RINGERS 1,000 ML 30 ML IV CONT (07:45)
[2024-06-21 08:06] LABS: Sodium 129 mmol/L (137-145)
--- NOTE | 2024-06-21 08:42 | PM.HPGS ---
History of Present Illness History of Present Illness Consent: Risks, benefits, and alternatives have been discussed and questions answered. Patient agrees to proceed with procedure. Chief complaint: post laminectomy syndrome, chronic pain Narrative: Douglas Horn is a 74 year old male with chronic, recalcitrant and disabling low back and right hip/lower extremity pain secondary to lumbosacral radiculopathy and post-laminectomy syndrome with failure to respond to aggressive conservative measures including PT, oral and topical analgesics, opioid and nonopioid analgesics, rest, time and activity/behavioral modification over the past 6-12 months and 2 has undergone a successful 2 lead Medtronic spinal cord stimulation trial presents for permanent placement 2 x 8 contact Medtronic percutaneous epidural stimulation leads and MRI safe, rechargeable implantable pulse generator under fluoroscopic guidance. Review of Systems Review of Systems: Patient denies any new infectious, allergic, cardiopulmonary, neurologic or constitutional symptoms or changes in activity tolerance or exercise capacity including new or progressive SOB/CHAWLA, peripheral edema, productive cough, dysuria, nausea/vomiting, diarrhea, weight change, fevers/chills/night sweats, new or progressive neurologic deficit, cognitive or mood changes since last seen, except as documented in the HPI. All systems reviewed & are unremarkable except as noted in HPI and below PMFSH Past Medical History Medical History (Updated 04/20/24 @ 10:31 by Jamir Silva MD) Eosinophilic asthma Dizziness Grade I diastolic dysfunction Fall Rib pain on right side Gluteal tendinitis of right buttock Bilateral leg numbness BMI 27.0-27.9,adult Bilateral hip pain Peripheral neuropathy Shingles Constipation Abdominal bloating Nausea Encounter for routine adult health examination without abnormal findings Dermatitis Bronchiectasis with acute exacerbation Anogenital herpesviral infection, unspecified Right wrist tendinitis Neuropathy Hypercholesterolemia C. difficile colitis Abnormal CT scan, pelvis Fever GERD (gastroesophageal reflux disease) Nausea Chronic lung disease Diverticulitis BMI 24.0-24.9, adult Follow up BMI 25.0-25.9,adult LLQ abdominal pain Hyponatremia SOB (shortness of breath) on exertion Cough Dextroscoliosis Lumbar spondylosis Viral wart on right thumb Thumb pain Angular cheilitis Elevated LDL cholesterol level Chronic back pain Colon cancer screening History of pneumonia BMI 26.0-26.9,adult Encounter for Medicare annual wellness exam Heart murmur Impacted cerumen of left ear History of elevated PSA Ruptured intervertebral disc Restless legs syndrome Encounter to establish care Herpes On nursing home drug therapy Exposure to heavy metals Surgical History Surgical History History of back surgery Family History Family History Father Family history of chronic obstructive pulmonary disease Mother Family history of chronic obstructive pulmonary disease Social History Social History Smoking status: Never smoker Second hand tobacco smoke exposure: No Alcohol intake: current Drinks per week: 14 Alcohol use details: 1-2 GLASSES OF RED WINE DAILY Substance use: never Substance use type: does not use Do You Feel Safe in your Home?: Yes Lack of Transportation: No Lack of Food: Never True Current Housing: I Have Housing Concerned About Future Housing: No Difficulty Paying Gas/Electric Bills: No Difficulty Paying for Meds: No Currently Unemployed: No Education: Bachelor's Degree Difficulty w/ Childcare or Family Care: No Living arrangements: with family Additional living arrangements comments: Gender identity (if verbalized by the patient): Male Spiritual care concerns: No Meds Home Medications and Allergies Home Medications ?Medication ?Instructions ?Recorded ?Confirmed ?Type esomeprazole magnesium 20 mg 20 mg PO DAILY 12/18/22 06/21/24 History capsule,delayed release fluticasone propionate 50 See Rx Instructions .Route 05/25/23 06/21/24 Rx mcg/actuation nasal .COMPLEX #96 grams spray,suspension ipratropium bromide 42 mcg (0.06 See Rx Instructions .Route 07/14/23 06/21/24 Rx %) nasal spray .COMPLEX #15 mL nortriptyline 25 mg capsule 25 mg PO HS 08/18/23 06/21/24 History ondansetron 8 mg disintegrating 8 mg PO QID PRN nausea and 09/29/23 06/08/24 Rx tablet vomiting #30 tabs albuterol sulfate 90 mcg/actuation 2 inh inhalation Q4H PRN shortness 11/22/23 06/08/24 Rx aerosol inhaler of breath or wheezing #8.5 grams ibuprofen 200 mg capsule 600 mg PO Q6H PRN Pain 03/02/24 06/21/24 History ropinirole 2 mg tablet 2 mg PO BID #180 tabs 04/02/24 06/21/24 Rx ciprofloxacin HCl 500 mg tablet 500 mg PO BID 06/14/24 06/21/24 History Allergies Allergy/AdvReac Type Severity Reaction Status Date / Time No Known Allergies Allergy Verified 06/21/24 08:01 Vital Signs Vital Signs - 24 hr 06/21/24 07:58 Temperature 97.6 F Pulse Rate 81 Respiratory Rate 16 Blood Pressure 104/69 Pulse Oximetry 96 Oxygen Delivery Room Air Exam Narrative: The patient's physical exam is essentially unchanged from prior examination on 03/21/2024. Specifically, patient demonstrates normal lung capacity, tidal volume and respiratory rate without wheezes, crackles, rales or rubs. Heart rate and rhythm are regular without murmurs, gallops or rubs. No JVD. Pulses 2+ globally without increasing peripheral edema. AAOx3 with no evidence of confusion, intoxication or altered mental state, NC/AT without acute distress or altered consciousness. Speech, cognition, mood, insight and judgment at baseline and within normal limits. Assessment and Plan Assessment and plan (1) Chronic back pain: Qualifiers: Back pain location: low back pain Back pain laterality: bilateral Sciatica presence: with sciatica Sciatica laterality: sciatica of left side Qualified Code(s): M54.42 - Lumbago with sciatica, left side; G89.29 - Other chronic pain Code(s): M54.9 - Dorsalgia, unspecified; G89.29 - Other chronic pain Status: Acute (2) Hereditary and idiopathic neuropathy, unspecified: Code(s): G60.9 - Hereditary and idiopathic neuropathy, unspecified Status: Acute (3) Postlaminectomy syndrome: Code(s): M96.1 - Postlaminectomy syndrome, not elsewhere classified Status: Acute (4) Lumbosacral radiculopathy: Code(s): M54.17 - Radiculopathy, lumbosacral region Status: Acute Plan Proceed as planned with permanent placement 2 x 8 contact Medtronic percutaneous epidural stimulation leads and MRI safe, rechargeable implantable pulse generator under fluoroscopic guidance.
--- NOTE | 2024-06-21 08:46 | WPDHPUPDATE1 ---
History and Physical Update Update Date/Time: 06/21/24 08:46 History and Physical has been reviewed, including an updated exam of the patient. There are NO changes in the patient's condition. Risks, benefits, and alternatives have been discussed and questions answered. Patient agrees to proceed with procedure.
--- NOTE | 2024-06-21 08:48 | W.PM.PROC2 ---
Procedure Note - Detailed Date of Procedure 06/21/24 Pre-op Diagnosis post laminectomy syndrome, chronic pain Post-op Diagnosis Same Procedure Performed Percutaneous implantation of two x 8-contact Medtronic tunneled, epidural neurostimulation lead(s) and rechargeable, programmable, MRI-safe implantable Inceptiv pulse generator for permanent spinal cord stimulation under fluoroscopic guidance. Surgeon Aydin Irby MD Supervisor Nurse None. Anesthesia General ([General endotracheal anesthesia] in the [prone] position with infiltration of local anesthetic.) Description of Procedure INFORMED CONSENT, EDUCATION AND PREPARATION: Procedure was discussed in detail with the patient at a previous visit and at the time of surgery. The risks, benefits, and alternatives to the procedure, including doing nothing, were discussed in detail with the patient, who expressed explicit understanding and consent to proceed. Specific risks discussed with the patient included, but were not limited to the risk of serious local or systemic infection, major or minor bleeding/bruising, allergic reaction to medications or materials, inadvertent lung or other organ injury, inadvertent nerve or spinal cord injury resulting in increased pain, weakness, numbness or loss of bowel or bladder control, device malfunction and/or inability to treat pain, device migration or malfunction resulting in the need for repeat or additional surgery, inadvertent dural puncture resulting in acute or chronic CSF leak and post-dural puncture headache, eye or dental injury, joint, nerve, spine or soft tissue injury/pain related to positioning, heart attack, DVT/PE, hemorrhagic or ischemic stroke, seizure, coma and . Patient understands these risks and agrees that the opportunity for benefit outweighs the potential risk of harm. Informed Consent form was read, reviewed and signed by the patient, physician and witnessed by staff. All pertinent questions were asked and answered to the patient's satisfaction. Patient indicates completion of a home 4% CHG shower last PM and this AM. Surgical site was pre-treated with chlorhexidine wipes and antibiotics initiated in holding. All materials required for implantation were available and site and side of implant were marked prior to procedure start. Appropriate time out was conducted prior to incision. PROCEDURE IN DETAIL: Patient was brought to the operative suite and placed in the supine position. ASA standard monitors were attached and utilized throughout. General endotracheal anesthesia was initiated without difficulty. Eyes were protected. Patient was converted to the prone position. Joints were in neutral position and pressure points were padded. Breasts and/or genitals were evaluated and protected as appropriate. Skin overlying the target incision sites was identified and marked with sterile marker. Surgical site was widely prepared with 10ml tinted ChloraPrep applicator and allowed to dry completely for at least 3 minutes. Patient was draped in a typical sterile fashion prior to procedure start. Aseptic technique was utilized throughout. The L1-2 interspace was identified in the AP view. Skin and subcutaneous tissues at and underlying the targeted incision site was marked with sterile skin marker and infiltrated with approximately 10 mL of a 1:1 admixture of 0.5% preservative-free bupivacaine with epinephrine and 2% preservative-free lidocaine with epinephrine via a 27-gauge needle after negative aspiration. Anesthesia was extended to the periosteum of the right L1 lamina using a 3.5 inch 22-gauge Quincke spinal needle, without difficulty and after negative aspiration. A 4 cm incision was made right of midline at the intended lead introduction site. Incision was dissected to thoracolumbar fascia using a combination of electrocautery and blunt dissection. Hemostasis was obtained with electrocautery and confirmed. A 14-gauge 4-inch curved Tuohy epidural needle was advanced under intermittent fluoroscopy until appropriate loss of resistance to air was obtained via plastic loss of resistance syringe. Lateral view showed appropriate placement of the needle tip within the posterior epidural space. In the AP view, a second needle was placed in a similar fashion with similar results and no evidence of complication. An 8-contact Medtronic spinal cord stimulation lead was then advanced through the most cephalad needle at midline until the most proximal electrode was adjacent to the midportion of the T8 vertebral body. A second electrode was placed in a similar fashion just right of midline until the most proximal electrode was adjacent to the inferior endplate of the T8 vertebral body. Lateral view was utilized to document positioning of the leads within the posterior epidural space. Two x 0 Ethibond sutures were placed just adjacent the previously placed needles and secured to thoracolumbar fascia. Lead guidewires and then surrounding introducer needles were withdrawn over the leads under live fluoroscopy to ensure absence of lead migration. No CSF or bleeding was noted emanating from the lead entry sites. Deployable bumpy friction anchors were then placed, one per lead, such that the proximal portion of the anchor was buried within fascia. These were then secured to thoracolumbar fascia using the previously placed 0 Ethibond sutures. Attention was then turned to creation of the generator pocket in the right upper buttock. After infiltration with an additional 10 mL of the above local anesthetic admixture via a 27-gauge needle following negative aspiration, a 4 cm horizontal incision was made in the right upper buttock. An appropriately sized pocket was then created approximately 1-2 cm from the skin surface with a combination of electrocautery and blunt dissection. Hemostasis was obtained with electrocautery and confirmed. Two x 0 Ethibond sutures were placed within the superior portion of the pocket, one at the 10 o'clock and one at the 12 o'clock position. Using the industrial commercial groundskeeper- supplied tunneling device, the two previously placed leads were tunneled from the inferior pole of the midline thoracolumbar incision to the superolateral portion of the newly created pocket. Stress relieving loops were retained at the lead insertion sites. Distal contacts on each lead were then cleaned with alcohol-soaked sterile gauze and placed into the generator contact ports so that the leftmost lead was placed within the superior 0-7 port position and the rightmost lead was placed within the inferior 8-15 port position. Each contact was carefully secured using the industrial commercial groundskeeper-supplied ratchet device. Appropriate and secure connectivity was confirmed. A Tyrx antimicrobial pouch was trimmed to size and generator inserted prior to implant. Trimmed remnant of the pouch was placed within the thoracolumbar incision. Excess lead was coiled behind the generator and the generator was placed in the pocket such that the lead contact ports were in the cephalad position and the industrial commercial groundskeeper's logo was facing externally. The device was secured to gluteal fascia using previously placed 0 Ethibond sutures. Each incision site was then copiously irrigated with IrriCept 0.5% Chlorhexidine solution. Hemostasis was again confirmed. 500mg of powdered vancomycin was placed within the surgical wounds, proportionately divided between each surgical site. Each incision was then closed in a layered fashion using interrupted 2-0 antimicrobial vicryl sutures for the deeper layers, continuous 4-0 antimicrobial monocryl for the superficial layers and wound glue to seal the epidermis. Once wound glue had dried, wounds were covered with Telfa and Tegaderm dressing. Patient was transitioned to the supine position and general anesthesia was reversed without difficulty. Patient was then transported to the recovery area in a stable condition with no evidence of complication. The patient was instructed to avoid heavy or repetitive lifting, bending at the waist, lifting and twisting, reaching or overhead work for the next 4-6 weeks. Patient and available family members/caregivers were instructed verbally regarding appropriate postoperative activity restrictions and wound care, both in the immediate preoperative period and in the postoperative period. Instructions were both reviewed with and provided to the patient in written form prior to discharge. Patient to remain in the present of a responsible adult for at least 48 hours. Patient, amongst other requirements, was instructed to avoid driving or soaking/submerging incisions until released and to monitor for signs of infection including fevers, chills, night sweats, any redness, warmth or discharge around the incision sites, increased pain, opening/bleeding of the wound, new pain, weakness, or numbness in the neck, back or upper and lower extremities, loss of bowel or bladder control, confusion or headaches that are persistent, severe or new. Patient expressed understanding prior to leaving the hospital. Signs and symptoms of infection, epidural abscess or hematoma, intracranial hypotension and post-dural puncture headache were described to the patient who was instructed to call if these symptoms present, and in the case of spinal headache to remain recumbent when possible, hydrate as tolerated based on medical conditions to the point of passing clear or mostly clear urine every 2-3 hours, caffeinated beverages and lxwy-all-qykgpyk analgesics as able and tolerated. Patient will monitor for all signs/symptoms and call our office immediately should they occur or report directly to the nearest Emergency Department if after hours or no immediate response. Immediate follow up was planned by telephone in 2-3 days and in person in 7-10 days. COMMENTS: None. COMPLICATIONS: None. SPECIMENS: None. ESTIMATED BLOOD LOSS: 10 mL. IV FLUIDS: On Chart. DRAINS: None. Packing No Pathology None sent Complications No immediate complications Condition Stable Disposition PACU [facility] Billing Surgery - Charge Forward: Surgery Billing
--- NOTE | 2024-06-21 09:12 | WPDANESEPPF ---
Anes - Initial Pre Proc Eval Procedure: Operation Date: 06/21/24 09:30 Proposed Procedures p Placement 2x8 Contact Medtronic Percutaneous Epidural Stimulation Leads and MRI Safe Programmable Rechargeable Implantable Pulse Generator (Inceptiv) Under Fluoroscopic Guidance for Permanent Spinal Cord Stimulation - Aydin Irby MD Date/Time: 06/21/24 09:12 Surgeon: Aydin Irby MD Pre Op Diagnosis: post laminectomy syndrome, chronic pain Patient Data Age: 74 Gender: M Height: 1.83 m Weight: 83.1 kg Last Vital Signs Temp 36.4 C 06/21/24 07:58 Pulse 81 06/21/24 07:58 Resp 16 06/21/24 07:58 BP 104/69 06/21/24 07:58 Pulse Ox 96 06/21/24 07:58 O2 Del Method Room Air 06/21/24 07:58 Allergies Allergy/AdvReac Type Severity Reaction Status Date / Time No Known Allergies Allergy Verified 06/21/24 08:01 Home Medications ?Medication ?Instructions ?Recorded ?Confirmed ?Type esomeprazole magnesium 20 mg 20 mg PO DAILY 12/18/22 06/21/24 History capsule,delayed release fluticasone propionate 50 See Rx Instructions .Route 05/25/23 06/21/24 Rx mcg/actuation nasal .COMPLEX #96 grams spray,suspension ipratropium bromide 42 mcg (0.06 See Rx Instructions .Route 07/14/23 06/21/24 Rx %) nasal spray .COMPLEX #15 mL nortriptyline 25 mg capsule 25 mg PO HS 08/18/23 06/21/24 History ondansetron 8 mg disintegrating 8 mg PO QID PRN nausea and 09/29/23 06/08/24 Rx tablet vomiting #30 tabs albuterol sulfate 90 mcg/actuation 2 inh inhalation Q4H PRN shortness 11/22/23 06/08/24 Rx aerosol inhaler of breath or wheezing #8.5 grams ibuprofen 200 mg capsule 600 mg PO Q6H PRN Pain 03/02/24 06/21/24 History ropinirole 2 mg tablet 2 mg PO BID #180 tabs 04/02/24 06/21/24 Rx ciprofloxacin HCl 500 mg tablet 500 mg PO BID 06/14/24 06/21/24 History Laboratory Tests 06/21/24 07:39 Sodium 129 L mmol/L (137-145) Patient hx anesthesia problems: none Family hx anesthesia problems: none Results Review: All pre-operative results and documents have been reviewed as part of the pre-operative evaluation. [facility] Past Medical History Medical History Eosinophilic asthma Dizziness Grade I diastolic dysfunction Fall Rib pain on right side Gluteal tendinitis of right buttock Bilateral leg numbness BMI 27.0-27.9,adult Bilateral hip pain Peripheral neuropathy Shingles Constipation Abdominal bloating Nausea Encounter for routine adult health examination without abnormal findings Dermatitis Bronchiectasis with acute exacerbation Anogenital herpesviral infection, unspecified Right wrist tendinitis Neuropathy Hypercholesterolemia C. difficile colitis Abnormal CT scan, pelvis Fever GERD (gastroesophageal reflux disease) Nausea Chronic lung disease Diverticulitis BMI 24.0-24.9, adult Follow up BMI 25.0-25.9,adult LLQ abdominal pain Hyponatremia SOB (shortness of breath) on exertion Cough Dextroscoliosis Lumbar spondylosis Viral wart on right thumb Thumb pain Angular cheilitis Elevated LDL cholesterol level Chronic back pain Colon cancer screening History of pneumonia BMI 26.0-26.9,adult Encounter for Medicare annual wellness exam Heart murmur Impacted cerumen of left ear History of elevated PSA Ruptured intervertebral disc Restless legs syndrome Encounter to establish care Herpes On residential drug therapy Exposure to heavy metals Surgical History Surgical History History of back surgery Family History Family History Father Family history of chronic obstructive pulmonary disease Mother Family history of chronic obstructive pulmonary disease Social History Social History Smoking status: Never smoker Second hand tobacco smoke exposure: No Alcohol intake: current Drinks per week: 14 Alcohol use details: 1-2 GLASSES OF RED WINE DAILY Substance use: never Substance use type: does not use Do You Feel Safe in your Home?: Yes Lack of Transportation: No Lack of Food: Never True Current Housing: I Have Housing Concerned About Future Housing: No Difficulty Paying Gas/Electric Bills: No Difficulty Paying for Meds: No Currently Unemployed: No Education: Bachelor's Degree Difficulty w/ Childcare or Family Care: No Living arrangements: with family Additional living arrangements comments: Gender identity (if verbalized by the patient): Male Spiritual care concerns: No Anes - Eval Final PreProcedure Day of Procedure 06/21/24 09:12 Patient weight: normal Heart: regular rate and rhythm Lungs: clear to auscultation Airway: Mallampati scale class II Neurological: alert and oriented Last oral intake: >/= 8 hours ASA classification: III Emergent: no Anesthetic plan: proceed Anesthesia type and monitoring: general ETT and standard monitoring Results Review: All pre-operative results and documents have been reviewed as part of the pre-operative evaluation. Informed Consent: The patient's anesthetic plan and its attendant risks and benefits were discussed with the patient/family/POA. Questions were solicited and answers provided to the satisfaction of the patient/family/POA.
[2024-06-21] MEDS: ceFAZolin 2 GM/D5W 50 ML 2 GM/50 ML BAG IVPB (09:49)
[2024-06-21] MEDS: BUPIVACAINE/EPINEPHRINE 0.5% 30 ML VIAL 10 ML INFILTRATE (10:13)
[2024-06-21] MEDS: LIDOCAINE 1% LOCAL INJ 10 ML VIAL INFILTRATE (10:14)
[2024-06-21] MEDS: IRRISEPT 450 ML IRRIGATION BOTTLE IRRIGATION (10:15)
[2024-06-21] MEDS: VANCOMYCIN HCL 1,000 MG VIAL 1000 MG TOPICAL (11:34)
[2024-06-21] MEDS: fentaNYL CITRATE INJ (*CRX) 100 MCG/2 ML VIAL 25 MCG IV PUSH ×2 (12:28→12:31)
[2024-06-21] MEDS: oxyCODONE HCL (*CRX) 5 MG TAB IR PO (13:02)
== END 2024-06-21 13:54 | disposition home or self-care (01) ==
PROVIDERS: Anesthesiology; PCP Internal Medicine; Visit Provider Anesthesiology Pain Medicine
PROC: (CPT 63685; principal; 2024-06-21 09:30)
DX: M96.1 Postlaminectomy syndrome, not elsewhere classified (principal); G89.29 Other chronic pain; G60.9 Hereditary and idiopathic neuropathy, unspecified; M54.17 Radiculopathy, lumbosacral region; M54.42 Lumbago with sciatica, left side
CPT/HCPCS: 63685; 63650 ×2; 36415; 84295; 99199; A9270; C1778; J0330; J0690; J1100; J2003; J2405; J2704; J3010; J3370; J7120

== ENCOUNTER 2024-08-17 10:38 | Outpatient (CLI) | payer MEDICARE, SELFPAY ==
--- NOTE | ~2024-08-17 | CT_ITS ---
EXAMINATION: CT sinus wo con DATE: 08/17/2024 11:18 INDICATION: Chronic pansinusitis TECHNIQUE: Computed tomography (CT) of the paranasal sinuses was performed without intravenous contra st. The dose-length product was 275.33 mGy-cm. Automated exposure control and iterative reconstructio n technique were employed. COMPARISON: CT dated 01/01/2024 FINDINGS: There is mucosal thickening of the ethmoid and maxillary sinuses with mucoperiosteal reacti on. There are surgical changes of the ostiomeatal units. Small left mastoid effusion. Right mastoid a ir cells are pneumatized. IMPRESSION: 1. Moderate chronic sinusitis primarily involving the maxillary and the ethmoid sinuses. Reviewed, dictated and finalized at location B.
--- OUTSIDE RECORDS SUMMARY | 2024-08-17 11:16 | XMS_ITS | Encounter Summary ---
Author Organization [facility] Address [address] [place] [address] Phone Care Team Providers Care Emblem Drawer In Name Role Phone Anil Gupta MD Primary Care Provider [phone] Anil Gupta MD Unavailable [phone] Adrien Young MD Unavailable Milad Garcia MD Unavailable Doni Marino MD Unavailable Edmundo Guajardo MD Unavailable [phone] Reason for Visit * Reason Comments Sinusitis Pt states sinus pres sure & cough have increased. Sinus CT to be done today @ [facility] per infection control doctor. Encounter Details Date Type Department Care Team (Late st Contact Info) Description 08/17/2024 9:45 AM CDT Office Visit [facility] Otolaryngology [address] [place] [address] Edmundo Guajardo MD [address] [place] [address] Social History Tobacco Use Types Packs/Day [...] How often do you attend chur or jehovah's witness services? 1 to 4 times per year [...] on file Legal Sex Male 12:56 PM PERINATAL INSTRUCTOR Gender Identity Male 05/23/2021 12:08 PM PERINATAL INSTRUCTOR Sexual Orientation Straight 05/23/2021 12 :08 PM PERINATAL INSTRUCTOR documented as of this encounter Last Filed Vital Signs Vital Sign Reading Time Taken Comments Blood Pressure - - Pulse - - Temperature - - Respiratory Rate 20 08/17/2024 9:37 AM CDT Oxygen Saturation - - Inhaled Oxygen Concentration - - Weight 83.9 kg (185 lb) 08/17/2024 9:37 AM CDT Height 182.9 cm (6') 08/17/2024 9:37 AM CDT Body Mass Index 25.09 08/17/2024 9:37 AM CDT documented in this encounter Plan of Treatment Not on file documented as of this encounter Visit Diagnoses Not on filedocumented in this encounter Additional Health Concerns Infection Onset Date Last Indicated Resolved Time 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 07/13/2024 documented as of this encounter Care Teams Emblem Drawer In Relationship Specialty Start Date End Date Anil Gupta MD [address] [place] [address] PCP - General Internal Medicine 04/19/21 Anil Gupta MD [address] [place] [address] Internal Medicine 04/19/21 Adrien Young MD [address] [place] [address] Consulting Physician Infectious Diseases 11/06/21 Milad Garcia MD [address] [place] [address] Consulting Physician Orthopedic Surgery 03/02/23 Doni Marino MD [address] [place] [address] Referring Physician Pulmonary Disease 02/09/24 Edmundo Guajardo MD [address] [place] [address] Consulting Physician Otolaryngology 02/22/24 documented as of this encounter
--- OUTSIDE RECORDS SUMMARY | 2024-08-17 11:16 | XMS_ITS | Continuity of Care Document ---
Author Organization [facility] Address [address] [place] [address] Phone Care Team Providers Care Buffer Machine Name Role Phone Chavez OD, Terry Unavailable Unavailable Advance Directives Directive Yes / No Effective Date File Name No Information Encounters Encounter Description Practice Location Reason(s) For Visit Diagnoses Date Provider Providers Copied on Encounter [facility], [address], [place], [place], [id number], [place] tel:[phone] [facility] No Information [phone] Chavez OD Terry. [address] , [address], [place], [address], [place]. tel:[phone] Family History Family Member Type Diagnosis Age At Onset No Information Payers Payer name Insurance type Covered republican ID Authoriza tion(s) [employer] Plan CI [id number] Social History Type Description Quantity Date [...]
--- OUTSIDE RECORDS SUMMARY | 2024-08-17 11:16 | XMS_ITS | Encounter Summary ---
Author Organization [facility] Address [address] [place] [address] Phone Care Team Providers Care Manager Consumer Insights Name Role Phone Anil Gupta MD Primary Care Provider [phone] Encounter Details Date Type Department Care Team (Late st Contact Info) Description 02/28/2021 Refill [facility] [address] [facility], [address] [address] Xander Noel MD [address] [facility], [address] [facility] [place] [address] Social History Tobacco Use Types Packs/Day Years Used Date Smoking Tobacco: Never Smokeless Tobacco: Never Alcohol Use Standard Drinks/Week Comments Yes 14 (1 standard drink = 0.6 oz pu re alcohol) Sex and Gender Information Value Date Recorded Sex Assigned at Not on file Legal Sex Male 9:20 AM MDT Gender Identity Not on file Sexual Orientation Not on file documented as of this encounter Miscellaneous Notes * Telephone Encounter - Xander Noel MD - 02/28/2021 12:13 PM CST Please ask pt which pharmacy he is going to and [place] documented in this encounter Plan of Treatment Not on file documented as of this encounter Visit Diagnoses Not on filedocumented in this encounter Care Teams Manager Consumer Insights Relationship Specialty Start Date End Date Anil Gupta MD [address] [facility] [address] [facility] [address] [place] [id number] PCP - General Internal Medicine 01/30/21 documented as of this encounter
--- OUTSIDE RECORDS SUMMARY | 2024-08-17 11:16 | XMS_ITS | Clinical Summary ---
Author Organization [facility] Address [address] [place] [address] Phone Care Team Providers Care Weather Forcaster Name Role Phone Anil Gupta MD Primary Care Provider [phone] Allergies No known active allergies Medications albuterol HFA (PROVENTIL HFA) 108 (90 Base) MCG/ACT inhaler 1 Active budesonide-formo terol (Symbicort) 160-4.5 MCG/ACT inhaler 1 Active celecoxib (CeleBREX) 200 MG capsule ;prn 1 Active fluticasone (FLONASE) 50 MCG/ACT nasal spray 1 Active ipratropium (ATROVENT) 0.06 % nasal spray Administer 2 sprays into each nostril 2 (two) times a day 1 Active pregabalin (LYRICA) 300 MG capsule Take 1 tablet by mouth daily Active rOPINIRole (REQUIP) 2 MG tablet 1 Active tiZANidine (ZANAFLEX) 4 MG tablet 1 Active vancomycin (VANCOCIN) 125 MG capsule TAKE 1 CAPSULE BY MOUTH 4 TIMES A DAY 2 Active levoFLOXacin (LEVAQUIN) 500 MG tablet Take 500 mg by mouth 1 (one) time each day 2 Active ondansetron ODT (ZOFRAN-ODT) 8 MG dispersible tablet TAKE 1 TABLET BY MOUTH FOUR TIMES DAILY NEEDED FOR NAUSEA AND VOMITING 2 Active Active Problems Problem Noted Date Diagnosed [...] (09/14/2021): Added automatically from request for surgery [id number] Last Assessment & Plan: Mr. Horn is [...] right L5-S1 microdiskectomy. 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 Immunizations Immunization Administration Dates Next Due Influenza TIV (IM) [...] Comments Blood Pressure 112/70 02/24/2022 1:54 PM FLAME HARDENER Pulse 72 02/24/2022 1:54 PM FLAME HARDENER Temperature 35.4 C (95.7 F) 02/24/2022 1:54 PM FLAME HARDENER Respiratory Rate - - Oxygen Saturation - - Inhaled Oxygen Concentration - - Weight 86.2 kg (190 lb) 02/24/2022 1:54 PM FLAME HARDENER Height 182.9 cm (6') 02/24/2022 1:54 PM FLAME HARDENER Body Mass Index 25.77 02/24/2022 1:54 PM FLAME HARDENER Plan of Treatment Health Maintenance Due Date Last Done Comments Pneumococcal PPSV23/PCV13 65 + Years / High and Highest Risk (2 of 4 - PPSV23) 04/21/2020 02/25/2020 Influenza Vaccine (Season Ended) 2024 12/21/19 22, 02/19/2021 Insurance MEDICARE [employer] Care Teams Weather Forcaster Relationship Specialty Start Date End Date Anil Gupta MD [address] [place] [address] PCP - General Internal Medicine 01/30/21
--- OUTSIDE RECORDS SUMMARY | 2024-08-17 11:16 | XMS_ITS | Clinical Summary ---
Author Organization [facility] Address [address] 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 This disclosure is being madepursuant to the Care Everywhere program and may not contain all information available regarding this patient. Last updated 17.[facility] Allergies No known active allergies Medications * Be aware that medications may not be up to date on this document. Alwaysverify current medications with the patient. pregabalin (LYRICA) 150 MG capsule Take 150 [...] at Not on file Legal Sex Male 10:32 AM [employer]INE[employer] Gender Identity Not on file Sexual Orientation [...] VACCINE (1 - 2023-2 5 season) 2023 DEPRESSION SCREENING 03/30/2024 INFLUENZA VACCINE (Season Ended) 2024 Respiratory Syncytial Virus (RSV) Vaccine Pt: or [...] this topic Insurance MEDICARE [employer] Care Teams Wash House Worker Relationship Specialty Start Date End Date Sukhdev Santos MD [address] [facility] [address] [place] [id number] PCP - General 12/15/18
--- OUTSIDE RECORDS SUMMARY | 2024-08-17 11:16 | XMS_ITS | Clinical Summary ---
Author Organization [facility] Address [address] [place] [address] Care Team Providers Care Stogy Maker Name Role Phone Anil Gupta MD Primary Care Provider [phone] Anil Gupta MD Unavailable [phone] Adrien Young MD Unavailable Milad Garcia MD Unavailable [phone] Doni Marino MD Unavailable Edmundo Guajardo MD Unavailable [phone] Allergies No known active allergies Medications rOPINIRole (REQUIP) 2 mg tablet Take 1 tablet (2 mg total) by mouth nightly Active ipratropium (ATROVENT) 42 mcg (0.06 %) nasal spray Administer 2 sprays into each nostril 2 (two) times a day Active fluticasone propionate (FLONASE) 50 mcg/actuation nasal spray Administer 2 sprays into each nostril 2 (two) times a day Active esomeprazole DR (NexIUM) 20 mg capsule [...] 90 capsule 3 05/03/19 25 026 Active tobramycin (NEBCIN) 40 mg/mL solutionIndication s:Chronic pansinusitis 160mg Tobramycin in 1 liter of sodium chloride SIG: Using a bulb syringe, rinse both nostrils BID x 14 days 4 mL 4 07/14/19 25 Active sodium chloride 0.9% 0.9 % irrigationIndicati ons:Chronic pansinusitis Mix with 160mg Tobramycin with 1 liter of sodium chloride SIG: Using a bulb syringe, rinse both nostrils BID x 14 days 1000 mL 4 07/14/19 25 Active testosterone cypionate (DEPO-TESTOTERONE) 200 mg/mL injection INJECT 2 (TWO) MILLILITER MONTLY 06/01/19 25 Active Active Problems Problem Noted Date Diagnosed Date Aphthous ulcer of mouth 07/15/2024 Assessment & Plan (07/15/2024 12:15 PM CDT): Looks like a benign aphthous ulcer. It might benefit from silver nitrate cautery and I talked with him about that. It should allowed to heal up a little quicker and often times will help with the pain. He wanted to go ahead and pursue that. Lesion was cauterized after topical application of lidocaine. Tolerated well. Follow up if he has further problems with this. Chronic maxillary sinusitis 02/22/2024 Thrush 12/02/2023 Assessment & Plan (03/05/2024 1:46 PM BATTERYMAN): At his request we are going to [...] 09/16/2023 Chronic pansinusitis 09/16/2023 Assessment & Plan (07/15/2024 12:08 PM CDT): He does appear to have sinusitis, more so on the right side. I took a culture today. I am going to start him on a tobramycin rinse. I am going to wait for the culture report to come back to see if there is any particular sensitivity to antibiotics. I will call him when I have a report. Until then he should finish the Septra that he is taking. Plan is for a follow-up in about 4 weeks. Assessment & Plan (06/14/2024 12:20 PM CDT): [...] weeks. Assessment & Plan (04/05/2024 10:33 AM BATTERYMAN): Sinuses are open and I do not [...] months. Assessment & Plan (03/05/2024 1:45 PM BATTERYMAN): His sinuses look much better. The nose [...] Bronchiectasis 05/04/2023 Cough 05/04/2023 Assessment & Plan (07/15/2024 12:14 PM CDT): Consider sinusitis has a cause. Also consider neurogenic cough and/or reflux. He has not responded to reflux medications in the past however. Assessment & Plan (06/14/2024 12:21 PM CDT): Think the cough is probably due to sinusitis but need to consider possibility of reflux and neurogenic cough. May need to eventually adjust medications accordingly. He understands. Assessment & Plan (04/05/2024 10:33 AM BATTERYMAN): Overall improved but somewhat persistent. Could be due to his bronchiectasis. If it continues I recommended that he see a permit specialist. Assessment & Plan (01/13/2024 11:08 AM CDT): He is going through some further evaluation with a irrigation pump installer which I think is appropriate. Could be an asthma type cough. We will talk further after the CT scan is complete. Assessment & Plan (12/02/2023 8:08 PM CDT): This seems to be worse. Has permit specialist is addressing this and he has [...] does have a follow up with his irrigation pump installer. I talked with him about trying nortriptyline [...] pretty easily if he stops taking his [id number] Nexium which he takes once a day. 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 coli) infection; Other abnormal glucose 08/04/2024 2:00 PM CDT Office Visit [facility] Infectious Disease [address] [facility] [address] [place] [address] Mark Anthony Castro MD Chronic pansinusitis; Escherichia coli (E. coli) infection; Other abnormal glucose 07/19/2024 Telephone [facility] [address] [place] [phone] Edmundo Guajardo MD 07/13/2024 5:24 PM CDT - 07/13/2024 11:59 PM CDT Hospital Encounter [facility] [address] [place] [phone] Chronic pansinusitis; Chronic cough Discharge Disposition: Discharge to home or self care 07/13/2024 9:45 AM CDT Office Visit [facility] [address] [place] [phone] Edmundo Guajardo MD Chronic cough (Primary Dx); Chronic pansinusitis; Aphthous ulcer of mouth 07/05/2024 Telephone [facility] [address] [place] [phone] Stefanie Hernandez LPN Cough has returned 06/17/2024 Results Follow-Up [facility] [address] [place] [phone] Aretha Dent Aerobic and anaerobic culture and gram stain Aspirate Sinus, maxillary, right 06/15/2024 Orders Only [facility] [address] [place] [phone] Edmundo Guajardo MD 06/14/2024 10:15 AM CDT Office Visit [facility] [address] [place] [phone] Edmundo Guajardo MD Chronic cough (Primary Dx); Chronic pansinusitis 06/14/2024 9:19 AM CDT - 06/14/2024 11:59 PM CDT Hospital Encounter [facility] [address] [place] [address] Chronic pansinusitis Discharge Disposition: Discharge to home or self care from Last 3 Months Surgical History Surgery [...] respiratory infection comes and goes - on halfway antibiotics to prevent further mucous build up [...] 10/29/2021 How often do you attend formerly [facility] or scientology services? 1 to 4 times per year 10/29/2021 Do you belong to any clubs o r organizations such as buddhist groups, unions, fraternal or athletic groups, or [...] on file Legal Sex Male 12:56 PM BATTERYMAN Gender Identity Male 05/23/2021 12:08 PM BATTERYMAN Sexual Orientation Straight 05/23/2021 12 :08 PM BATTERYMAN Obstetrics History Last Filed Vital Signs Vital Sign Reading Time Taken Comments Blood Pressure 103/67 08/04/2024 1:45 PM CDT Pulse 78 08/04/2024 1:45 PM CDT Temperature 36.2 C (97.1 F) 08/04/2024 1:45 PM CDT Respiratory Rate 20 08/17/2024 9:37 AM CDT Oxygen Saturation 95% 08/04/2024 1:45 PM CDT Inhaled Oxygen Concentration - - Weight 83.9 kg (185 lb) 08/17/2024 9:37 AM CDT Height 182.9 cm (6') 08/17/2024 9:37 AM CDT Body Mass Index 25.09 08/17/2024 9:37 AM CDT Plan of Treatment Health Maintenance Due Date Last Done Comments Colon Cancer Screening-Colonoscopy 1950 Hepatitis C Screening 1950 Hepatitis B Screening 1969 Zoster Vaccine (1 of 2) 2001 Well Visit 65+ 02/01/2016 Depression Screening 04/18/2022 04/18/2021, 04/18/19 Covid-19 Vaccine (2023-2 5 season) 2023 11/21/2020, 06/20/2020, 05/23/2020 Influenza Vaccine (Season Ended) 2024 12/20/2021, 02/19/2021, 12/19/2019, Additional history exists Fall Risk Assessment 02/08/2025 02/09/2024 DTaP/Tdap/Td Vaccine (2 - Td or Tdap) 02/18/2026 02/19/2016 Pneumococcal vaccine 65+ Completed 020, 02/25/2020, 02/04/2019, Additional history exists Medical Devices Implanted Type Area Software Configuration Manager Device Identifier Shelf Expiration Date Model / Serial / Lot [employer] Allograft Bone Putty 2.5cc 700-025 - [id number] Implanted:Qty: 1 on 10/11/2021 by Jayy Granger MD at [facility] N/A: Spine Lumbar [employer] [id number] 04/29/2024 700-025 / / [id number] [employer] Inqu Paste Mix Plus Asbestos Textile Supervisor 10cc Bone Graft Hyaluronic Acid Poly [id number] - [id number] Implanted:Qty: 1 on 10/11/2021 by Jayy Granger MD at [facility] N/A: Spine Lumbar [employer] [id number] / / [facility] L31 Mm X W10 Mm X H11 Mm 3d 12 D Curve Cage Spinal [id number] - [id number] Implanted:Qty: 1 on 10/11/2021 by Jayy Granger MD at [facility] N/A: Spine Lumbar Core Link [id number] 04/12/2023 [id number] / / [id number] Core Link Maysel 6.5mm 45mm Spine Pedicle Screw Bone 5500 Series [id number] - [id number] Implanted:Qty: 4 on 10/11/2021 by Jayy Granger MD at [facility] N/A: Spine Lumbar Core Link [id number] / / Core Link Maysel Screw Set 5500 Series [id number] - [id number] Implanted:Qty: 4 on 10/11/2021 by Jayy Granger MD at [facility] N/A: Spine Lumbar Core Link [id number] / / Core Link Maysel 5.5mm 40mm Line Prebent Nabor Spinal Nonsterile 5500 Series [id number] - [id number] Implanted:Qty: 2 on 10/11/2021 by Jayy Granger MD at [facility] N/A: Spine Lumbar Core Link [id number] / / Procedures Procedure Name Priority Date/Time Associated Diagnosis Comments EGFR Routine 08/04/2024 2:32 PM CDT Chronic pansinusitis Escherichia coli (E. coli) infection DIFFERENTIAL AUTO Routine 08/04/2024 2:3 2 PM CDT Chronic pansinusitis Escherichia coli (E. coli) infection IGG Routine 08/04/2024 2:32 PM CDT Chronic pansinusitis Escherichia coli (E. coli) infection IGM Routine 08/04/2024 2:32 PM CDT Chronic pansinusitis Escherichia coli (E. coli) infection IGA Routine 08/04/2024 2:32 PM CDT Chronic pansinusitis Escherichia coli (E. coli) infection IGE Routine 08/04/2024 2:32 PM CDT Chronic pansinusitis Escherichia coli (E. coli) infection HEMOGLOBIN A1C Routine 08/04/2024 2:32 PM CDT Chronic pansinusitis Escherichia coli (E. coli) infection Other abnormal glucose CBC WITH AUTO DIFFERENTIAL Routine 08/04/2024 2:32 PM CDT Chronic pansinusitis Escherichia coli (E. coli) infection COMPREHENSIVE METABOLIC PANEL Routine 08/04/2024 2:32 PM CDT Chronic pansinusitis Escherichia coli (E. coli) infection ERYTHROCYTE SEDIMENTATION RATE Routine 08/04/2024 2:32 PM CDT Chronic pansinusitis Escherichia coli (E. coli) infection HIV 1/2 ANTIBODY PLUS P24 ANTIGEN Routine 08/04/2024 2:32 PM CDT Chronic pansinusitis Escherichia coli (E. coli) infection AEROBIC CULTURE AND GRAM STAIN Routine 07/13/2024 10:29 AM CDT Chronic pansinusitis Chronic cough AEROBIC AND ANAEROBIC CULTURE AND GRAM STAIN Routine 06/14/2024 9:25 AM CDT from Last 3 Months Results * eGFR (08/04/2024 2:32 PM CDT) [facility] eGFR 76 >=60 mL/min/1. 73 m2 Comment: Interpretive Data Reference Interval Normal >/= 90 mL/min/1.73m2 Mildly decreased* 60 - 89 mL/min/1.73m2 Mildly to moderately decreased 45 - 59 mL/min/1.73m2 Moderately to severely decreased 30 - 44 mL/min/1.73m2 Severely decreased 15 - 29 mL/min/1.73m2 Kidney Failure < 15 mL/min/1.73m2 *Relative to young adult level Estimated glomerular [...] interpretive data was last reviewed 2021. Blood 08/04/2024 2:32 PM CDT 08/04/2024 4:40 PM CDT Mark Anthony Castro MD LAB BLOOD ORDERABLES Final R esult [facility] [address] [facility] [place] [address] * Differential, auto (08/04/2024 2:32 PM CDT) Pathologist [facility] Neutrophil abs 4.02 1.50 - 6.50 K/cumm Imm gran abs 0.01 0.00 - 0.10 K/cumm [facility] Lymphocyte abs 1.22 0.80 - 3.30 K/cumm [facility] Monocyte abs 0.61 0.20 - 0.80 K/cumm [facility] Eosinophil abs 0.00 0.00 - 0.50 K/cumm [facility] Basophil abs 0.01 0.00 - 0.10 K/cumm [facility] Neutrophil pct 68.4 % [facility] Comment: Interpretive Data Percent cell count reference ranges are not reported, since discordance with absolute values may lead to misinterpretation of CBC data. Current Interpretive Data was last revised on 2017. Imm gran pct 0.2 % [facility] Comment: Interpretive Data Percent cell count reference ranges are not reported, since discordance with absolute values may lead to misinterpretation of CBC data. Current Interpretive Data was last revised on 2017. Lymphocyte pct 20.8 % [facility] Comment: Interpretive Data Percent cell count reference ranges are not reported, since discordance with absolute values may lead to misinterpretation of CBC data. Current Interpretive Data was last revised on 2017. Monocyte pct 10.4 % [facility] Comment: Interpretive Data Percent cell count reference ranges are not reported, since discordance with absolute values may lead to misinterpretation of CBC data. Current Interpretive Data was last revised on 2017. Eosinophil pct 0.0 % [facility] Comment: Interpretive Data Percent cell count reference ranges are not reported, since discordance with absolute values may lead to misinterpretation of CBC data. Current Interpretive Data was last revised on 2017. Basophil pct 0.2 % [facility] Comment: Interpretive Data Percent cell count reference ranges are not reported, since discordance with absolute values may lead to misinterpretation of CBC data. Current Interpretive Data was last revised on 2017. Blood 08/04/2024 2:32 PM CDT 08/04/2024 4:40 PM CDT Mark Anthony Castro MD LAB BLOOD ORDERABLES Final R esult Performing Organization Address [facility] Co de Phone Number [address] [phone] * HIV 1/2 Antibody plus p24 Antigen Blood (08/04/2024 2:32 PM CDT) Pathologist [facility] Department HIV 1/2 ab + p24 ag Nonreactive Nonreactive Comment:Nonreactive for HIV- 1 antigen and HIV-1/HIV-2 antibodies. No laboratory evidence of HIV infection. If acute HIV infection is suspected, consider testing for HIV-1 RNA. Current interpretive data was last revised on 21. Blood 08/04/2024 2:32 PM CDT 08/04/2024 4:40 PM CDT Mark Anthony Castro MD LAB MICROBIOLOGY - GENERAL O RDERABLES Final Result Performing Organization Address [facility]/ZIP Co de Phone Number [address] [employer] [place] [address] * (ABNORMAL) CBC with auto differential (08/04/2024 2:32 PM CDT) Pathologist [facility] WBC 5.87 3.80 - 9.90 K/cumm Hgb 13.9 13.0 - 17.5 g/dL [facility] Hct 42.3 38.9 - 50.3 % [facility] Plt 299 150 - 400 K/cumm [facility] MPV 8.5(L) 9.1 - 12.3 fL [facility] RBC 4.70 4.30 - 5.80 M/cumm [facility] MCV 90.0 81.3 - 96.4 fL [facility] MCH 29.6 27.1 - 33.3 pg [facility] MCHC 32.9 32.3 - 35.7 g/dL [facility] RDW CV 13.0 11.1 - 14.9 % [facility] RDW SD 42.0 35.7 - 48.1 fL [facility] NRBC abs 0.00 0.00 - 0.01 K/cumm [facility] Blood 08/04/2024 2:32 PM CDT 08/04/2024 4:40 PM CDT Mark Anthony Castro MD LAB BLOOD ORDERABLES Final R esult Performing Organization Address [facility] Co de Phone Number [address] [employer] [address] * Erythrocyte sedimentation rate (08/04/2024 2:32 PM CDT) [facility] Erythrocyte sedimentation rate 4 1 - 20 mm/hr Blood 08/04/2024 2:32 PM CDT 08/04/2024 4:40 PM CDT Mark Anthony Castro MD LAB BLOOD ORDERABLES Final R esult Performing Organization Address [facility] de Phone Number [address] [address] * (ABNORMAL) Hemoglobin A1c (08/04/2024 2:32 PM CDT) Pathologist [facility] Hgb A1C 5.7(H) 4.0 - 5.6 % Estimated Average Glucose 117 mg/dL [facility] Comment: The ADA recommends reporting an estimated Average Glucose (eAG) with all Hemoglobin A1c results using the equation derived from a study of 507 normal and diabetic adults. Minority populations were underrepresented and children were not included. (Diabetes Care 31:3145-4363, 2008). The eAG is not equivalent to a fasting glucose. Blood 08/04/2024 2:32 PM CDT 08/04/2024 4:40 PM CDT us Mark Anthony Castro MD LAB BLOOD ORDERABLES Final R esult Performing Organization Address [facility] Co de Phone Number [address] [employer] [place] [address] * IgE (08/04/2024 2:32 PM CDT) IgE 77 <=100 IUnits/mL Blood 08/04/2024 2:32 PM CDT 08/04/2024 4:40 PM CDT us Mark Anthony Castro MD LAB BLOOD ORDERABLES Final R esult Performing Organization Address [facility] de Phone Number [address] [address] * IgA (08/04/2024 2:32 PM CDT) Pathologist [facility] Immunoglobulin A 352 70 - 400 mg/dL Blood 08/04/2024 2:32 PM CDT 08/04/2024 4:40 PM CDT us Mark Anthony Castro MD LAB BLOOD ORDERABLES Final R esult Performing Organization Address [facility] de Phone Number [address] [employer] [place] [address] * IgM (08/04/2024 2:32 PM CDT) Pathologist [facility] Immunoglobulin M 72 40 - 230 mg/dL Blood 08/04/2024 2:32 PM CDT 08/04/2024 4:40 PM CDT us Mark Anthony Castro MD LAB BLOOD ORDERABLES Final R esult Performing Organization Address [facility] Co de Phone Number [facility] [address] [place] [address] [employer] [place] [address] * IgG (08/04/2024 2:32 PM CDT) [facility] Immunoglobulin G 897 700 - 1,600 mg/dL Blood 08/04/2024 2:32 PM CDT 08/04/2024 4:40 PM CDT us Mark Anthony Castro MD LAB BLOOD ORDERABLES [facility] Performing Organization Address [facility] de Phone Number [address] [address] * (ABNORMAL) Comprehensive metabolic panel (08/04/2024 2:32 PM CDT) [facility] Sodium 134(L) 135 - 145 mmol/L Potassium, pl 4.7 3.3 - 4.9 mmol/L [facility] Chloride 98 97 - 110 mmol/L [facility] CO2 28 22 - 32 mmol/L [facility] Anion gap 8 2 - 15 mmol/L [facility] BUN 18 6 - 25 mg/dL [facility] Creatinine 1.04 0.80 - 1.30 mg/dL [facility] Glucose 125 70 - 199 mg/dL [facility] Comment: Interpretive Data Fasting glucose >/= 126 mg/dl is diagnostic for diabetes. Fasting is defined as no caloric intake [...] classification and Diagnosis of Diabetes Diabetes Care 202; 46: S19-S40. Current interpretive data was last revised 2022. Calcium 9.2 8.5 - 10.3 mg/dL [facility] Bilirubin, total 0.6 0.1 - 1.2 mg/dL [facility] Protein, pl 7.0 6.5 - 8.5 g/dL [facility] Albumin 4.0 3.5 - 5.0 g/dL [facility] Alk phos 89 40 - 130 Units/L [facility] ALT 19 7 - 55 Units/L [facility] AST 27 10 - 50 Units/L [facility] Blood 08/04/2024 2:32 PM CDT 08/04/2024 4:40 PM CDT us Mark Anthony Castro MD LAB BLOOD ORDERABLES Final R esult [facility] [address] [facility] Department [place] [address] * (ABNORMAL) Aerobic culture and gram stain Drainage Ethmoid sinus, right (07/13/2024 10:29 AM CDT) Direct Specimen Exam Stain: No polymorphonuclear leukocytes seen. Abundant Gram Positive Cocci Comment:Testing performed by : [facility], [address] [place]., [address] Report Final Report: Moderate Mixed microorganisms. Includes the following: Moderate Escherichia coli The susceptibility pattern of this Escherichia coli indicates the possible production of an extended spectrum beta lactamase (ESBL). Patients infected with ESBL-producing organisms require contact isolation precautions. For therapeutic options for this organism, please contact infectious diseases. (.) MILLI Comment:Testing performed by : [facility], [address] [place] [address]., [id number] Organism ESCHERICHIA COLI [facility] Organism MIXED MICROORGANISMS. [facility] Drainage (Ethmoid sinus, right) 07/13/2024 10:29 AM CDT 07/13/2024 8:50 PM CDT Narrative [facility] - 07/17/2024 10:09 AM CDT AEROBIC AND ANAEROBIC CULTURE AND SENSITIVITY Specimen received on an ESwab. Testing performed by [facility] Microbiology Laboratory ([phone]) Specimens submitted from normally sterile body sites will have all bacterial morphotypes identified. Specimens that contain grossly mixed oren and/or are from body sites that are not normally sterile will be examined for Staphylococcus aureus, Pseudomonas aeruginosa, beta-hemolytic strep, vancomycin-resistant Enterococcus and fungus. If any of these are isolated, the organism will be reported. Current interpretive data was last revised on 2016. Organism Antibiotic Method Susceptibility Escherichia coli Ampicillin INTERPRETATION Resistant Escherichia coli Cefazolin INTERPRETATION Resistant Escherichia coli Gentamicin INTERPRETATION Resistant Escherichia coli Ampicillin with Sulbactam INTERPRETAT ION Resistant Escherichia coli Trimethoprim with Sulfamethoxazole IN TERPRETATION Resistant Escherichia coli Meropenem INTERPRETATION Susceptible Escherichia coli Cefepime INTERPRETATION Resistant Escherichia coli Ciprofloxacin INTERPRETATION Resistant Escherichia coli Ceftazidime INTERPRETATION Resistant Escherichia coli Ceftriaxone INTERPRETATION Resistant Escherichia coli Piperacillin/Tazobactam INTERPRETATIO N Resistant Escherichia coli Amikacin INTERPRETATION Susceptible Escherichia coli Aztreonam INTERPRETATION Resistant Escherichia coli Imipenem INTERPRETATION Susceptible Escherichia coli Ertapenem INTERPRETATION Susceptible Escherichia coli Minocycline INTERPRETATION Intermediate Escherichia coli Tobramycin INTERPRETATION Resistant Escherichia coli Levofloxacin INTERPRETATION Resistant Escherichia coli Doxycycline INTERPRETATION Resistant us Edmundo Guajardo MD LAB MICROBIOLOGY - GENERAL ORDERABLES Final Result [facility] JORDAN [address] [facility] Department [place] [address] * (ABNORMAL) Aerobic and anaerobic culture and gram stain Aspirate Sinus, maxillary, right (06/14/2024 9:25 AM CDT) Direct Specimen Exam Stain: Rare polymorphonuclear leukocytes seen. Abundant Gram Positive Cocci Moderate Gram Negative Bacilli Comment:Testing performed by : [facility], [address] [place] [address]., [id number] Report Final Report: Abundant Escherichia coli The susceptibility pattern of this Escherichia coli indicates the possible production of an extended spectrum beta lactamase (ESBL). Patients infected with ESBL-producing organisms require contact isolation precautions. For therapeutic options for this organism, please contact infectious diseases. Abundant Staphylococcus aureus Methicillin susceptible (MSSA) by penicillin binding protein 2a (PBP2a) testing. This isolate is presumed to be resistant to clindamycin based on detection of inducible clindamycin resistance. Clindamycin may still be effective in some patients. Abundant Bacteroides fragilis (.) MILLI JORDAN Comment:Testing performed by : [facility], [address] [place] [address], [place]., [address] Organism ESCHERICHIA COLI MILLI JORDAN Organism STAPHYLOCOCCUS AUREUS [facility] Organism BACTEROIDES FRAGILIS [facility] Aspirate (Sinus, maxillary, right) 06/14/2024 9:25 AM CDT 06/15/2024 11:15 AM CDT Narrative MILLI - 06/20/2024 2:31 PM CDT Collection date/time has been modified to:06/14/2024 09:25. Previous Collection date/time: 06/15/2024 09:25. Testing performed by [facility] Microbiology Laboratory ([phone]) Specimens submitted from normally sterile body sites [...] revised on 2019. Organism Antibiotic Method Susceptibility Escherichia coli Ampicillin INTERPRETATION Resistant Escherichia coli Cefazolin INTERPRETATION Resistant Escherichia coli Gentamicin INTERPRETATION Resistant Escherichia coli Ampicillin with Sulbactam INTERPRETAT ION Resistant Escherichia coli Trimethoprim with Sulfamethoxazole INTERPRETATION Susceptible Escherichia coli Meropenem INTERPRETATION Susceptible Escherichia coli Cefepime INTERPRETATION Resistant Escherichia coli Ciprofloxacin INTERPRETATION Resistant Escherichia coli Ceftazidime INTERPRETATION Resistant Escherichia coli Ceftriaxone INTERPRETATION Resistant Escherichia coli Piperacillin/Tazobactam INTERPRETATIO N Intermediate Escherichia coli Amikacin INTERPRETATION Intermediate Escherichia coli Aztreonam INTERPRETATION Resistant Escherichia coli Imipenem INTERPRETATION Susceptible Escherichia coli Ertapenem INTERPRETATION Susceptible Escherichia coli Minocycline INTERPRETATION Susceptible Escherichia coli Tobramycin INTERPRETATION Resistant Escherichia coli Levofloxacin INTERPRETATION Resistant Escherichia coli Doxycycline INTERPRETATION Susceptible Staphylococcus aureus Vancomycin INTERPRETATION Susceptible Staphylococcus aureus Trimethoprim with Sulfamethoxazole INTERPRETATION Susceptible Staphylococcus aureus Linezolid INTERPRETATION Susceptible Staphylococcus aureus Doxycycline INTERPRETATION Susceptible Staphylococcus aureus Clindamycin INTERPRETATION Resistant Staphylococcus aureus Erythromycin INTERPRETATION Resistant Staphylococcus aureus Oxacillin INTERPRETATION Susceptible Staphylococcus aureus Cefazolin INTERPRETATION Susceptible Staphylococcus aureus Ceftriaxone INTERPRETATION Susceptible us Edmundo Guajardo MD LAB MICROBIOLOGY - GENERAL ORDERABLES Final Result MILLI [address] [facility] [place] [address] from Last 3 Months Additional Health Concerns Infection Onset Date Last Indicated 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 07/13/2024 Insurance MEDICARE [facility] SENIOR SUPPLEMENT MEDICARE AETNA SENIOR SUPPLEMENT MEDICARE [facility] SENIOR SUPPLEMENT MEDICARE AETNA SENIOR SUPPLEMENT MEDICARE [facility] MEDICARE Advance Directives For more information, please contact: [phone] Documents on File Type Date Recorded Patient Sock Examiner Expl anation Power of Fig Washer 02/22/2024 5:42 AM * Full Code (Latest Code Status on File) Date Activated Date Inactivated Comments 10/28/2021 10:29 PM 11/06/2021 5:42 PM * Full Code Date Activated Date Inactivated Comments 10/11/2021 4:02 PM 10/12/2021 5:28 PM Care Teams Stogy Maker Relationship Specialty Start Date End Date Anil Gupta MD [address] [place] [address] PCP - General Internal Medicine 04/19/21 Anil Gupta MD [address] [facility] [address] [place] [address] Internal Medicine 04/19/21 Adrien Young MD [address] [place] [address] Consulting Physician Infectious Diseases 11/06/21 Milad Garcia MD [address] [place] [address] Consulting Physician Orthopedic Surgery 03/02/23 Doni Marino MD [address] [facility] [address] [place] [address] Referring Physician Pulmonary Disease 02/09/24 Edmundo Guajardo MD [address] [place] [address] Consulting Physician Otolaryngology 02/22/24
--- OUTSIDE RECORDS SUMMARY | 2024-08-17 11:16 | XMS_ITS | Referral Summary ---
Author Organization [facility] Address [address] [place] [address] Care Team Providers Care Chest Painting And Sealing Supervisor Name Role Phone Anil Gupta MD Primary Care Provider [phone] Anil Gupta MD Unavailable [phone] Adrien Young MD Unavailable Milad Garcia MD Unavailable [phone] Doni Marino MD Unavailable Edmundo Guajardo MD Unavailable [phone] Encounters Date Type Department Care Team Description 08/17/2024 9:45 AM CDT Office Visit [facility] [address] [place] [phone] Edmundo Guajardo MD 08/04/2024 2:30 PM CDT Lab [facility] Office Bldg 3 OP Lab [address] [address] Chronic pansinusitis; Escherichia coli (E. coli) infection; Other abnormal glucose 08/04/2024 2:00 PM CDT Office Visit [facility] Infectious Disease [address] [facility] [address] [place] [phone] Mark Anthony Castro MD Chronic pansinusitis; Escherichia coli (E. coli) infection; Other abnormal glucose 07/19/2024 Telephone [facility] [address] [place] [phone] Edmundo Guajardo MD 07/13/2024 5:24 PM CDT - 07/13/2024 11:59 PM CDT Hospital Encounter [facility] [address] [place] [address] Chronic pansinusitis; Chronic cough Discharge Disposition: Discharge to home or self care 07/13/2024 9:45 AM CDT Office Visit [facility] [address] [place] [phone] Edmundo Guajardo MD Chronic cough (Primary Dx); Chronic pansinusitis; Aphthous ulcer of mouth 07/05/2024 Telephone [facility] [address] [place] [phone] Stefanie Hernandez LPN Cough has returned 06/17/2024 Results Follow-Up [facility] [address] [place] [phone] Aretha Dent Aerobic and anaerobic culture and gram stain Aspirate Sinus, maxillary, right 06/15/2024 Orders Only [facility] [address] [place] [phone] Edmundo Guajardo MD 06/14/2024 9:19 AM CDT - 06/14/2024 11:59 PM CDT Hospital Encounter [facility] [address] [place] [address] Chronic pansinusitis Discharge Disposition: Discharge to home or self care 06/14/2024 10:15 AM CDT Office Visit [facility] [address] [place] [phone] Edmundo Guajardo MD Chronic cough (Primary Dx); [...] 12/02/2023 Assessment & Plan (03/05/2024 1:46 PM CARTON PACKAGING MACHINE OPERATOR): At his request we are going to [...] weeks. Assessment & Plan (04/05/2024 10:33 AM CARTON PACKAGING MACHINE OPERATOR): Sinuses are open and I do not [...] months. Assessment & Plan (03/05/2024 1:45 PM CARTON PACKAGING MACHINE OPERATOR): His sinuses look much better. The nose [...] understands. Assessment & Plan (04/05/2024 10:33 AM CARTON PACKAGING MACHINE OPERATOR): Overall improved but somewhat persistent. Could be due to his bronchiectasis. If it continues I recommended that he see a music specialist. Assessment & Plan (01/13/2024 11:08 AM CDT): He is going through some further evaluation with a biomass production manager which I think is appropriate. Could be an asthma type cough. We will talk further after the CT scan is complete. Assessment & Plan (12/02/2023 8:08 PM CDT): This seems to be worse. Has music specialist is addressing this and he has [...] does have a follow up with his biomass production manager. I talked with him about trying nortriptyline [...] pretty easily if he stops taking his [id number] Nexium which he takes once a day. 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 1 to 4 times per year 10/29/2021 Do you belong to any clubs o r organizations such as faith groups, unions, fraternal or athletic groups, or [...] on file Legal Sex Male 12:56 PM CARTON PACKAGING MACHINE OPERATOR Gender Identity Male 05/23/2021 12:08 PM CARTON PACKAGING MACHINE OPERATOR Sexual Orientation Straight 05/23/2021 12 :08 PM CARTON PACKAGING MACHINE OPERATOR Last Filed Vital Signs Vital Sign Reading [...] 08/17/2024 9:37 AM CDT Plan of Treatment Not on file Medical Devices Implanted Type Area Repair Servicer Device Identifier Shelf Expiration Date Model / Serial / Lot Traditional Medic[employer] Inc Allograft Bone Putty 2.5cc 700 - [id number] Implanted:Qty: 1 on 10/11/2021 by Jayy Granger MD at [facility] N/A: Spine Lumbar [employer] Inc [id number] 04/29/2024- / / [id number] Isto [employer] Inqu Paste Mix Plus Prison Officer 10cc Bone Graft Hyaluronic Acid Poly [id number] - [id number] Implanted:Qty: 1 on 10/11/2021 by Jayy Granger MD at [facility] N/A: Spine Lumbar [employer] [id number] / / Core Link [employer] L31 Mm X W10 Mm X H11 Mm 3d 12 D Curve Cage Spinal [id number] - [id number] Implanted:Qty: 1 on 10/11/2021 by Jayy Granger MD at [facility] N/A: Spine Lumbar Core Link [id number] 04/12/2023 [id number] / / [id number] Core Link [employer] [place] 6.5mm 45mm Spine Pedicle Screw Bone 5500 Series [id number] - [id number] Implanted:Qty: 4 on 10/11/2021 by Jayy Granger MD at [facility] N/A: Spine Lumbar Core Link [id number] / / Core Link [employer] [place] Screw Set 5500 Series [id number] - [id number] Implanted:Qty: 4 on 10/11/2021 by Jayy Granger MD at [facility] N/A: Spine Lumbar Core Link [id number] / / Core Link [employer] [place] 5.5mm 40mm Line Prebent Nabor Spinal Nonsterile 5500 Series [id number] - [id number] Implanted:Qty: 2 on 10/11/2021 by Jayy Granger MD at [facility] N/A: Spine Lumbar Core Link [id number] / / Procedures Procedure Name Priority Date/Time [...] Results * eGFR (08/04/2024 2:32 PM CDT) [facility] eGFR 76 >=60 mL/min/1. 73 m2 Comment: [...] Final R esult [facility] [address] [facility] [place] [address] * Differential, auto (08/04/2024 2:32 PM CDT) Neutrophil abs 4.02 1.50 - 6.50 K/cumm [...] revised on 2017. Basophil pct 0.2 % MILLI Comment: Interpretive Data Percent cell count reference ranges are not reported, since discordance with absolute values may lead to misinterpretation of CBC data. Current Interpretive Data was last revised on 2017. Blood 08/04/2024 2:32 PM CDT 08/04/2024 4:40 PM CDT Mark Anthony Castro MD LAB BLOOD ORDERABLES Final R esult Performing Organization Address [facility] Co de Phone Number [address] [phone] * HIV 1/2 Antibody plus p24 Antigen Blood (08/04/2024 2:32 PM CDT) Pathologist [facility] HIV 1/2 ab + p24 ag Nonreactive Nonreactive Comment:Nonreactive for HIV- 1 antigen and HIV-1/HIV-2 antibodies. No laboratory evidence of HIV infection. If acute HIV infection is suspected, consider testing for HIV-1 RNA. Current interpretive data was last revised on 21. Blood 08/04/2024 2:32 PM CDT 08/04/2024 4:40 PM CDT us Mark Anthony Castro MD LAB MICROBIOLOGY - GENERAL O RDERABLES Final Result Performing Organization Address [facility] Co de Phone Number [address] [place], [place] [phone] * (ABNORMAL) CBC with auto differential (08/04/2024 2:32 PM CDT) WBC 5.87 3.80 - 9.90 K/cumm Hgb [...] ORDERABLES Final R esult Performing Organization Address [facility] de Phone Number [address] [place], [place] [phone] * Erythrocyte sedimentation rate (08/04/2024 2:32 PM CDT) [facility] Erythrocyte sedimentation rate 4 1 - 20 mm/hr Blood 08/04/2024 2:32 PM CDT 08/04/2024 4:40 PM CDT Mark Anthony Castro MD LAB BLOOD ORDERABLES Final R esult Performing Organization Address [facility] de Phone Number [address] [place] [address] * (ABNORMAL) Hemoglobin A1c (08/04/2024 2:32 PM CDT) Pathologist [facility] Hgb A1C 5.7(H) 4.0 - 5.6 % Estimated Average Glucose 117 mg/dL [facility] Comment: The ADA recommends reporting an estimated Average Glucose (eAG) with all Hemoglobin A1c results using the equation derived from a study of 507 normal and diabetic adults. Minority populations were underrepresented and children were not included. (Diabetes Care 31:8946-9235, 2008). The eAG is not equivalent to a fasting glucose. Blood 08/04/2024 2:32 PM CDT 08/04/2024 4:40 PM CDT us Mark Anthony Castro MD LAB BLOOD ORDERABLES Final R esult Performing Organization Address [facility] Co de Phone Number [address] [place] [address] * IgE (08/04/2024 2:32 PM CDT) IgE 77 <=100 IUnits/mL Blood 08/04/2024 2:32 PM CDT 08/04/2024 4:40 PM CDT us Mark Anthony Castro MD LAB BLOOD ORDERABLES Final R esult Performing Organization Address [facility] de Phone Number [address] [address] * IgA (08/04/2024 2:32 PM CDT) Immunoglobulin A 352 70 - 400 mg/dL Blood 08/04/2024 2:32 PM CDT 08/04/2024 4:40 PM CDT Mark Anthony Castro MD LAB BLOOD ORDERABLES Final R esult Performing Organization Address [facility] de Phone Number [address] [place] [address] * IgM (08/04/2024 2:32 PM CDT) Immunoglobulin M 72 40 - 230 mg/dL Blood 08/04/2024 2:32 PM CDT 08/04/2024 4:40 PM CDT Mark Anthony Castro MD LAB BLOOD ORDERABLES Final R esult Performing Organization Address [facility] Co de Phone Number [address] [address] * IgG (08/04/2024 2:32 PM CDT) [facility] Immunoglobulin G 897 700 - 1,600 mg/dL Blood 08/04/2024 2:32 PM CDT 08/04/2024 4:40 PM CDT Mark Anthony Castro MD LAB BLOOD ORDERABLES Final R esult Performing Organization Address [facility] de Phone Number [address] [address] * (ABNORMAL) Comprehensive metabolic panel (08/04/2024 2:32 PM CDT) [facility] Sodium 134(L) 135 - 145 mmol/L Potassium, [...] MD LAB BLOOD ORDERABLES Final R esult [facility] [address] [facility] [place] [address] * (ABNORMAL) Aerobic culture and gram stain Drainage Ethmoid sinus, right (07/13/2024 10:29 AM CDT) Direct Specimen Exam Stain: No polymorphonuclear leukocytes seen. Abundant Gram Positive Cocci Comment:Testing performed by : [facility], [address] [place]., [address] Report Final Report: Moderate Mixed microorganisms. Includes the following: Moderate Escherichia coli The susceptibility pattern of this Escherichia coli indicates the possible production of an extended spectrum beta lactamase (ESBL). Patients infected with ESBL-producing organisms require contact isolation precautions. For therapeutic options for this organism, please contact infectious diseases. (.) MILLI Comment:Testing performed by : [facility], [address] [place]., [address] Organism ESCHERICHIA COLI [facility] Organism MIXED MICROORGANISMS. [facility] Drainage (Ethmoid sinus, right) 07/13/2024 10:29 AM CDT 07/13/2024 8:50 PM CDT Narrative [facility] - 07/17/2024 10:09 AM CDT AEROBIC AND ANAEROBIC CULTURE AND SENSITIVITY Specimen received on an ESwab. Testing performed by [facility] Microbiology Laboratory ([phone]) Specimens submitted from normally sterile body sites [...] INTERPRETATION Resistant Escherichia coli Doxycycline INTERPRETATION Resistant Edmundo Guajardo MD LAB MICROBIOLOGY - GENERAL ORDERABLES Final Result MILLI JORDAN [address] [facility] [place] [address] * (ABNORMAL) Aerobic and anaerobic culture and gram stain Aspirate Sinus, maxillary, right (06/14/2024 9:25 AM CDT) Direct Specimen Exam Stain: Rare polymorphonuclear leukocytes seen. Abundant Gram Positive Cocci Moderate Gram Negative Bacilli Comment:Testing performed by : [facility], [address] [place] [address], [place]., [address] Report Final Report: Abundant Escherichia coli The [...] by : [facility], [address] [place]., [address] Organism ESCHERICHIA COLI MILLI Organism STAPHYLOCOCCUS AUREUS MILLI Organism BACTEROIDES FRAGILIS MILLI Aspirate (Sinus, maxillary, right) 06/14/2024 9:25 AM CDT 06/15/2024 11:15 AM CDT Narrative MILLI - 06/20/2024 2:31 PM CDT Collection date/time has been modified to:06/14/2024 09:25. Previous Collection date/time: 06/15/2024 09:25. 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 07/13/2024 Insurance MEDICARE AET SENIOR SUPPLEMENT MEDICARE AETNA SENIOR SUPPLEMENT MEDICARE [facility] MEDICARE AETNA SENIOR SUPPLEMENT MEDICARE AETNA SENIOR SUPPLEMENT MEDICARE Advance Directives For more information, please contact: [phone] Documents on File Type Date Recorded Patient Office Machine Servicer Apprentice Expl anation Power of Engineering Consultant 02/22/2024 5:42 AM * Full Code (Latest Code Status on File) Date Activated Date Inactivated Comments 10/28/2021 10:29 PM 11/06/2021 5:42 PM * Full Code Date Activated Date Inactivated Comments 10/11/2021 4:02 PM 10/12/2021 5:28 PM Care Teams Chest Painting And Sealing Supervisor Relationship Specialty Start Date End Date Anil Gupta MD [address] [facility] [address] [place] [address] PCP - General Internal Medicine 04/19/21 Anil Gupta MD [address] [facility] [address] [place] [address] Internal Medicine 04/19/21 Adrien Young MD [address] [facility] [address] [place] [address] Consulting Physician Infectious Diseases 11/06/21 Milad Garcia MD [address] [facility] [address] [place] [address] Consulting Physician Orthopedic Surgery 03/02/23 Doni Marino MD [address] [facility] [address] [place] [address] Referring Physician Pulmonary Disease 02/09/24 Edmundo Guajardo MD [address] [place] [address] Consulting Physician Otolaryngology 02/22/24
--- OUTSIDE RECORDS SUMMARY | 2024-08-17 11:16 | XMS_ITS | Patient Health Record ---
Author Organization [facility] Address [address] [place] [phone] Care Team Providers Care Jute Bag Clipper Name Role Phone PCP, Does not have a Primary Care Provider Unava ilable Allergies No Known Allergies Reason For Referral No Information Plan Of Treatment No Information Insurance Providers Payer Name Payer Address Payer Phone Subscriber Number Group Number Insured Name Patient Relationship to Insured Coverage Start Date Coverage End Date Self Pay [address] [facility] [address] [place] [address] null, null Self - patient is the insured 1 [employer] [id number] [place] [address] [id number] LIZETTE PÉREZ Self - patient is the insured 1
== END 2024-08-17 10:39 | disposition home or self-care (01) ==
PROVIDERS: PCP Internal Medicine; Visit Provider Internal Medicine Infectious Disease
DX: J32.0 Chronic maxillary sinusitis (principal); J32.2 Chronic ethmoidal sinusitis; A49.8 Other bacterial infections of unspecified site
CPT/HCPCS: 70486

== ENCOUNTER 2024-08-30 08:09 | Outpatient (CLI) | payer MEDICARE, SELFPAY ==
--- NOTE | ~2024-08-30 | XR_ITS ---
XR abdomen/kub 1V 08/30/2024 08:27 Indication: Abdomen pain Procedure: KUB Comparison: 05/21/2022 Findings: Bowel gas pattern nonobstructive. Moderate colonic fecal loading. Stimulator leads are pres ent extending into the thoracic spine, distal aspect not visualized. Battery pack overlies the right ilium. Perfusion changes L5-S1. No abnormal calcifications to suggest renal stones. Impression: 1: No acute abdominal abnormality. Reviewed, dictated and finalized at location A. Impression: 1: No acute abdominal abnormality.
== END 2024-08-30 08:10 | disposition home or self-care (01) ==
PROVIDERS: PCP Internal Medicine; Visit Provider Internal Medicine
DX: R10.9 Unspecified abdominal pain (principal); R30.0 Dysuria; R50.9 Fever, unspecified
CPT/HCPCS: 74018

== ENCOUNTER 2024-08-30 08:26 | Outpatient (CLI) | payer MEDICARE, SELFPAY ==
--- OUTSIDE RECORDS SUMMARY | 2024-08-30 08:30 | XMS_ITS | Encounter Summary ---
Author Organization [facility] Address [address] [place] [address] Phone Care Team Providers Care Counseling Center Director Name Role Phone Anil Gupta MD Primary Care Provider [phone] Encounter Details Date Type Department Care Team (Late st Contact Info) Description 02/28/2021 Refill [facility] [address] [facility], [address] [address] Xander Noel MD [address] [facility], [address] [facility], [facility] [place] [address] Social History Tobacco Use Types Packs/Day Years [...] going to and I will call in [employer] [facility] documented in this encounter Plan of Treatment Not on file documented as of this encounter Visit Diagnoses Not on filedocumented in this encounter Care Teams Counseling Center Director Relationship Specialty Start Date End Date Anil Gupta MD [address] [facility] [address] [facility] [address] [place] [phone] PCP - General Internal Medicine 01/30/21 documented as of this encounter
--- OUTSIDE RECORDS SUMMARY | 2024-08-30 08:31 | XMS_ITS | Referral Summary ---
Author Organization [facility] Address [address] [place] [address] Care Team Providers Care Gas Engine Performance Engineer Name Role Phone Anil Gupta MD Primary Care Provider [phone] Anil Gupta MD Unavailable [phone] Adrien Young MD Unavailable Milad Garcia MD Unavailable [phone] Doni Marino MD Unavailable Edmundo Guajardo MD Unavailable [phone] Encounters Date Type Department Care Team Description 08/25/2024 2:45 PM CDT Office Visit [facility] Infectious Disease [address] [phone] Mark Anthony Castro MD Chronic maxillary sinusitis (Primary Dx) 08/23/2024 Telephone [facility] Otolaryngology [address] [place] [phone] results 08/17/2024 9:45 AM CDT Office Visit [facility] Otolaryngology [address] [place] [phone] Edmundo Guajardo MD Chronic cough (Primary Dx); Chronic pansinusitis 08/04/2024 2:30 PM CDT Lab [facility] Bldg 3 OP Lab [address] [phone] Chronic pansinusitis; Escherichia coli (E. coli) infection; Other abnormal glucose 08/04/2024 2:00 PM CDT Office Visit [facility] Infectious Disease [address] [facility] [address] [place] [address] Mark Anthony Castro MD Chronic pansinusitis; Escherichia coli (E. coli) infection; Other abnormal glucose 07/19/2024 Telephone [facility] Otolaryngology [address] [place] [phone] Edmundo Guajardo MD 07/13/2024 5:24 PM CDT - 07/13/2024 11:59 PM CDT Hospital Encounter [facility] Lab [address] [place] [phone] Chronic pansinusitis; Chronic cough Discharge Disposition: Discharge to home or self care 07/13/2024 9:45 AM CDT Office Visit [facility] Otolaryngology [address] [place] [phone] Edmundo Guajardo MD Chronic cough (Primary Dx); Chronic pansinusitis; Aphthous ulcer of mouth 07/05/2024 Telephone [facility] Otolaryngology [address] [place] [phone] Stefanie Hernandez LPN Cough has returned 06/17/2024 Results Follow-Up [facility] Otolaryngology [address] [place] [phone] Aretha Dent Aerobic and anaerobic culture and gram stain Aspirate Sinus, maxillary, right 06/15/2024 Orders Only [facility] Lab [address] [place] [phone] Edmundo Guajardo MD 06/14/2024 9:19 AM CDT - 06/14/2024 11:59 PM CDT Hospital Encounter [facility] Lab [address] [place] [phone] Chronic pansinusitis Discharge Disposition: Discharge to home or self care 06/14/2024 10:15 AM CDT Office Visit [facility] Otolaryngology [address] [place] [address] Edmundo Guajardo MD Chronic cough [...] injection INJECT 2 (TWO) MILLILITER MONTLY 06/01/19 Active Active Problems Problem Noted Date Diagnosed [...] 12/02/2023 Assessment & Plan (03/05/2024 1:46 PM REFINERY TECHNICIAN): At his request we are going to [...] 09/16/2023 Chronic pansinusitis 09/16/2023 Assessment & Plan (08/18/2024 11:11 AM CDT): He has slight crusting bilaterally but overall things look generally better. I think he would benefit from continuing with the tobramycin rinse and he has been thinking about that. He is going to go ahead and do that. Otherwise he is going to follow up with Dr. Castro. Probably will get IV antibiotic therapy. I would like to see him in about 3 months. Assessment & Plan (07/15/2024 12:08 PM CDT): [...] weeks. Assessment & Plan (04/05/2024 10:33 AM REFINERY TECHNICIAN): Sinuses are open and I do not [...] months. Assessment & Plan (03/05/2024 1:45 PM REFINERY TECHNICIAN): His sinuses look much better. The nose [...] Bronchiectasis 05/04/2023 Cough 05/04/2023 Assessment & Plan (08/18/2024 11:11 AM CDT): Seemed much improved for now. Assessment & Plan (07/15/2024 12:14 PM CDT): [...] understands. Assessment & Plan (04/05/2024 10:33 AM REFINERY TECHNICIAN): Overall improved but somewhat persistent. Could be due to his bronchiectasis. If it continues I recommended that he see a print support specialist. Assessment & Plan (01/13/2024 11:08 AM CDT): He is going through some further evaluation with a commercial front load operator which I think is appropriate. Could be an asthma type cough. We will talk further after the CT scan is complete. Assessment & Plan (12/02/2023 8:08 PM CDT): This seems to be worse. Has print support specialist is addressing this and he [...] does have a follow up with his commercial front load operator. I talked with him about trying nortriptyline [...] pretty easily if he stops taking his [id number]-[id number] Nexium which he takes once a day. 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 1 to 4 times per year 10/29/2021 Do you belong to any clubs o r organizations such as taoism groups, unions, fraternal or athletic groups, or [...] on file Legal Sex Male 12:56 PM REFINERY TECHNICIAN Gender Identity Male 05/23/2021 12:08 PM REFINERY TECHNICIAN Sexual Orientation Straight 05/23/2021 12 :08 PM REFINERY TECHNICIAN Last Filed Vital Signs Vital Sign Reading Time Taken Comments Blood Pressure 93/64 08/25/2024 2:25 PM CDT Pulse 78 08/25/2024 2:25 PM CDT Temperature 36.2 C (97.1 F) 08/04/2024 1:45 PM CDT Respiratory Rate 18 08/25/2024 2:25 PM CDT Oxygen Saturation 95% 08/25/2024 2:25 PM CDT Inhaled Oxygen Concentration - - Weight 84.8 kg (187 lb) 08/25/2024 2:25 PM CDT Height 182.9 cm (6') 08/25/2024 2:25 PM CDT Body Mass Index 25.36 08/25/2024 2:25 PM CDT Plan of Treatment Not on file Medical Devices Implanted Type Area Steam Plant Records Clerk Device Identifier Shelf Expiration Date Model / Serial / Lot [employer] Allograft Bone Putty 2.5cc 700-025 - [id number] Implanted:Qty: 1 on 10/11/2021 by Jayy Granger MD at [facility] N/A: Spine Lumbar [employer] [id number] 04/29/2024 700-025 / / [id number] [employer] Inqu Paste Mix Plus Hat Measurer 10cc Bone Graft Hyaluronic Acid Poly [id number] - [id number] Implanted:Qty: 1 on 10/11/2021 by Jayy Granger MD at [facility] N/A: Spine Lumbar [employer] [id number] / / Core Link Foundation L31 Mm X W10 Mm X H11 Mm 3d 12 D Curve Cage Spinal [id number] - [id number] Implanted:Qty: 1 on 10/11/2021 by Jayy Granger MD at [facility] N/A: Spine Lumbar Core Link [id number] 04/12/2023 [id number] / / [id number] Core Link Dwight 6.5mm 45mm Spine Pedicle Screw Bone 5500 Series [id number] - [id number] Implanted:Qty: 4 on 10/11/2021 by Jayy Granger MD at [facility] N/A: Spine Lumbar Core Link [id number] / / Core Link Dwight Screw Set 5500 Series [id number] - [id number] Implanted:Qty: 4 on 10/11/2021 by Jayy Granger MD at [facility] N/A: Spine Lumbar Core Link [id number] / / Core Link Dwight 5.5mm 40mm Line Prebent Nabor Spinal Nonsterile 5500 Series [id number] - [id number] Implanted:Qty: 2 on 10/11/2021 by Jayy Granger MD at [facility] N/A: Spine Lumbar Core Link [id number] / / Procedures Procedure Name Priority Date/Time [...] Results * eGFR (08/04/2024 2:32 PM CDT) eGFR 76 >=60 mL/min/1. 73 m2 Comment: [...] MD LAB BLOOD ORDERABLES Final R esult [facility] [address] [facility] [place] [address] * Differential, auto (08/04/2024 2:32 PM CDT) Neutrophil abs 4.02 1.50 - 6.50 K/cumm Imm gran abs 0.01 0.00 - 0.10 K/cumm [facility] Lymphocyte abs 1.22 0.80 - 3.30 K/cumm [facility] Monocyte abs 0.61 0.20 - 0.80 K/cumm [facility] Eosinophil abs 0.00 0.00 - 0.50 K/cumm [facility] Basophil abs 0.01 0.00 - 0.10 K/cumm [facility] Neutrophil pct 68.4 % [facility] Comment: Interpretive Data Percent cell count reference ranges are not reported, since discordance with absolute values may lead to misinterpretation of CBC data. Current Interpretive Data was last revised on 2017. Imm gran pct 0.2 % [facility] Comment: Interpretive Data Percent cell count reference ranges are not reported, since discordance with absolute values may lead to misinterpretation of CBC data. Current Interpretive Data was last revised on 2017. Lymphocyte pct 20.8 % [facility] Comment: Interpretive Data Percent cell count reference ranges are not reported, since discordance with absolute values may lead to misinterpretation of CBC data. Current Interpretive Data was last revised on 2017. Monocyte pct 10.4 % [facility] Comment: Interpretive Data Percent cell count reference ranges are not reported, since discordance with absolute values may lead to misinterpretation of CBC data. Current Interpretive Data was last revised on 2017. Eosinophil pct 0.0 % [facility] Comment: Interpretive Data Percent cell count reference ranges are not reported, since discordance with absolute values may lead to misinterpretation of CBC data. Current Interpretive Data was last revised on 2017. Basophil pct 0.2 % [facility] Comment: Interpretive Data Percent cell count reference ranges are not reported, since discordance with absolute values may lead to misinterpretation of CBC data. Current Interpretive Data was last revised on 2017. Blood 08/04/2024 2:32 PM CDT 08/04/2024 4:40 PM CDT us Mark Anthony Castro MD LAB BLOOD ORDERABLES Final R esult [facility] [address] [facility] Department of Laboratories [place], [place] [phone] * HIV 1/2 Antibody plus p24 Antigen Blood (08/04/2024 2:32 PM CDT) [facility] HIV 1/2 ab + p24 ag Nonreactive Nonreactive Comment:Nonreactive for HIV- 1 antigen and HIV-1/HIV-2 antibodies. No laboratory evidence of HIV infection. If acute HIV infection is suspected, consider testing for HIV-1 RNA. Current interpretive data was last revised on 21. Blood 08/04/2024 2:32 PM CDT 08/04/2024 4:40 PM CDT Mark Anthony Castro MD LAB MICROBIOLOGY - GENERAL O RDERABLES Final Result [facility] [address] [facility] Department [place] [address] * (ABNORMAL) CBC with auto differential (08/04/2024 2:32 PM CDT) [facility] WBC 5.87 3.80 - 9.90 K/cumm Hgb 13.9 13.0 - 17.5 g/dL [facility] Hct 42.3 38.9 - 50.3 % [facility] Plt 299 150 - 400 K/cumm [facility] MPV 8.5(L) 9.1 - 12.3 fL [facility] RBC 4.70 4.30 - 5.80 M/cumm [facility] MCV 90.0 81.3 - 96.4 fL [facility] MCH 29.6 27.1 - 33.3 pg [facility] MCHC 32.9 32.3 - 35.7 g/dL [facility] RDW CV 13.0 11.1 - 14.9 % [facility] RDW SD 42.0 35.7 - 48.1 fL [facility] NRBC abs 0.00 0.00 - 0.01 K/cumm [facility] Blood 08/04/2024 2:32 PM CDT 08/04/2024 4:40 PM CDT Mark Anthony Castro MD LAB BLOOD ORDERABLES Final R esult Performing Organization Address [facility] Co de Phone Number MILLI [facility] [employer] [place] [address] * Erythrocyte sedimentation rate (08/04/2024 2:32 PM CDT) Pathologist [facility] Erythrocyte sedimentation rate 4 1 - 20 mm/hr Blood 08/04/2024 2:32 PM CDT 08/04/2024 4:40 PM CDT Mark Anthony Castro MD LAB BLOOD ORDERABLES Final R esult Performing Organization Address [facility] de Phone Number [address] [place] [place] [address] * (ABNORMAL) Hemoglobin A1c (08/04/2024 2:32 PM CDT) [facility] Hgb A1C 5.7(H) 4.0 - 5.6 % Estimated Average Glucose 117 mg/dL [facility] Comment: The ADA recommends reporting an estimated Average Glucose (eAG) with all Hemoglobin A1c results using the equation derived from a study of 507 normal and diabetic adults. Minority populations were underrepresented and children were not included. (Diabetes Care 31:7422-8636, 2008). The eAG is not equivalent to a fasting glucose. Blood 08/04/2024 2:32 PM CDT 08/04/2024 4:40 PM CDT us Mark Anthony Castro MD LAB BLOOD ORDERABLES Final R esult Performing Organization Address [facility] Co de Phone Number [place] [address] [facility] [place] [place] [address] * IgE (08/04/2024 2:32 PM CDT) Pathologist [facility] IgE 77 <=100 IUnits/mL Blood 08/04/2024 2:32 PM CDT 08/04/2024 4:40 PM CDT us Mark Anthony Castro MD LAB BLOOD ORDERABLES Final R esult Performing Organization Address [facility]/ZIP Co de Phone Number [address] [address] * IgA (08/04/2024 2:32 PM CDT) Immunoglobulin A 352 70 - 400 mg/dL Blood 08/04/2024 2:32 PM CDT 08/04/2024 4:40 PM CDT Mark Anthony Castro MD LAB BLOOD ORDERABLES Final R esult Performing Organization Address [facility] Co de Phone Number [address] [place] [place] [address] * IgM (08/04/2024 2:32 PM CDT) Pathologist [facility] Immunoglobulin M 72 40 - 230 mg/dL Blood 08/04/2024 2:32 PM CDT 08/04/2024 4:40 PM CDT Mark Anthony Castro MD LAB BLOOD ORDERABLES Final R esult Performing Organization Address [facility] Co de Phone Number [address] [place] [place] [address] * IgG (08/04/2024 2:32 PM CDT) Pathologist [facility] Immunoglobulin G 897 700 - 1,600 mg/dL Blood 08/04/2024 2:32 PM CDT 08/04/2024 4:40 PM CDT us Mark Anthony Castro MD LAB BLOOD ORDERABLES Final R esult Performing Organization Address [facility] Co de Phone Number [address] [place] [place] [address] * (ABNORMAL) Comprehensive metabolic panel (08/04/2024 2:32 PM CDT) Pathologist [facility] Sodium 134(L) 135 - 145 mmol/L Potassium, pl 4.7 3.3 - 4.9 mmol/L [facility] Chloride 98 97 - 110 mmol/L [facility] CO2 28 22 - 32 mmol/L [facility] Anion gap 8 2 - 15 mmol/L [facility] BUN 18 6 - 25 mg/dL [facility] Creatinine 1.04 0.80 - 1.30 mg/dL [facility] Glucose 125 70 - 199 mg/dL [facility] Comment: Interpretive Data Fasting glucose [...] classification and Diagnosis of Diabetes Diabetes Care 2021; 46: S19-S40. Current interpretive data was last revised 2022. Calcium 9.2 8.5 - 10.3 mg/dL [facility] Bilirubin, total 0.6 0.1 - 1.2 mg/dL [facility] Protein, pl 7.0 6.5 - 8.5 g/dL [facility] Albumin 4.0 3.5 - 5.0 g/dL [facility] Alk phos 89 40 - 130 Units/L [facility] ALT 19 7 - 55 Units/L [facility] AST 27 10 - 50 Units/L [facility] Blood 08/04/2024 2:32 PM CDT 08/04/2024 4:40 PM CDT us Mark Anthony Castro MD LAB BLOOD ORDERABLES Final R esult [facility]ILLI [address] [facility] Department [place] [address] * (ABNORMAL) Aerobic culture and gram stain Drainage Ethmoid sinus, right (07/13/2024 10:29 AM CDT) Direct Specimen Exam Stain: No polymorphonuclear leukocytes seen. Abundant Gram Positive Cocci Comment:Testing performed by : [facility], [address] [place]., [address] Report Final Report: Moderate Mixed microorganisms. Includes the following: Moderate Escherichia coli The susceptibility pattern of this Escherichia coli indicates the possible production of an extended spectrum beta lactamase (ESBL). Patients infected with ESBL-producing organisms require contact isolation precautions. For therapeutic options for this organism, please contact infectious diseases. (.) MILLI JORDAN Comment:Testing performed by : [facility], [address] [place]., [address] Organism ESCHERICHIA COLI MILLI Organism MIXED MICROORGANISMS. MILLI Drainage (Ethmoid sinus, right) 07/13/2024 10:29 AM CDT 07/13/2024 8:50 PM CDT Narrative [facility]ILL[facility] - 07/17/2024 10:09 AM CDT AEROBIC AND ANAEROBIC CULTURE AND SENSITIVITY Specimen received on an ESwab. Testing performed by [facility] Microbiology Laboratory ([phone]) Specimens submitted from normally sterile body sites [...] MICROBIOLOGY - GENERAL ORDERABLES Final Result [facility] [address] [facility] Department [place] [address] * (ABNORMAL) Aerobic and anaerobic culture and gram stain Aspirate Sinus, maxillary, right (06/14/2024 9:25 AM CDT) Direct Specimen Exam Stain: Rare polymorphonuclear leukocytes seen. Abundant Gram Positive Cocci Moderate Gram Negative Bacilli Comment:Testing performed by : [facility], [address] [place] [address]., [id number] Report Final Report: Abundant Escherichia coli The [...] some patients. Abundant Bacteroides fragilis (.) MILLI Comment:Testing performed by : [facility], [address] [place] [address]., [id number] Organism ESCHERICHIA COLI [facility] Organism STAPHYLOCOCCUS AUREUS [facility] Organism BACTEROIDES FRAGILIS [facility] Aspirate (Sinus, maxillary, right) 06/14/2024 9:25 AM CDT 06/15/2024 11:15 AM CDT Narrative [facility] - 06/20/2024 2:31 PM CDT Collection date/time has been modified to:06/14/2024 09:25. Previous Collection date/time: 06/15/2024 09:25. 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 07/13/2024 Insurance MEDICARE [facility] Address: [address] [address] [employer] SENIOR SUPPLEMENT MEDICARE T SENIOR SUPPLEMENT MEDICARE [employer] SENIOR SUPPLEMENT MEDICARE AET SENIOR SUPPLEMENT MEDICARE [employer] SENIOR SUPPLEMENT MEDICARE Advance Directives For more information, please contact: [phone] Documents on File Type Date Recorded 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 02/22/2024 5:42 AM * Full Code (Latest Code Status on File) Date Activated Date Inactivated Comments 10/28/2021 10:29 PM 11/06/2021 5:42 PM * Full Code Date Activated Date Inactivated Comments 10/11/2021 4:02 PM 10/12/2021 5:28 PM Care Teams Gas Engine Performance Engineer Relationship Specialty Start Date End Date Anil Gupta MD [address] [place] [address] PCP - General Internal Medicine 04/19/21 Anil Gupta MD [address] [place] [address] Internal Medicine 04/19/21 Adrien Young MD [address] [place] [address] Consulting Physician Infectious Diseases 11/06/21 Milad Garcia MD [address] [place] [address] Consulting Physician Orthopedic Surgery 03/02/23 Doni Marino MD [address] [place] [address] [address] [place] [address] Referring Physician Pulmonary Disease 02/09/24 Edmundo Guajardo MD [address] [place] [address] Consulting Physician Otolaryngology 02/22/24
--- OUTSIDE RECORDS SUMMARY | 2024-08-30 08:31 | XMS_ITS | Clinical Summary ---
Author Organization [facility] Address [address] [place] [address] Care Team Providers Care Rn Hospital Name Role Phone Anil Gupta MD Primary Care Provider [phone] Anil Gupta MD Unavailable [phone] Adrien Young MD Unavailable [phone] Milad Garcia MD Unavailable [phone] Doni Marino MD Unavailable Edmundo Guajardo MD Unavailable [phone] Allergies No known active allergies Medications rOPINIRole [...] 12/02/2023 Assessment & Plan (03/05/2024 1:46 PM CORN SHUCKER): At his request we are going to [...] weeks. Assessment & Plan (04/05/2024 10:33 AM CORN SHUCKER): Sinuses are open and I do not [...] months. Assessment & Plan (03/05/2024 1:45 PM CORN SHUCKER): His sinuses look much better. The nose [...] understands. Assessment & Plan (04/05/2024 10:33 AM CORN SHUCKER): Overall improved but somewhat persistent. Could be due to his bronchiectasis. If it continues I recommended that he see a presidential support specialist. Assessment & Plan (01/13/2024 11:08 AM CDT): He is going through some further evaluation with a beater machine operator which I think is appropriate. Could be an asthma type cough. We will talk further after the CT scan is complete. Assessment & Plan (12/02/2023 8:08 PM CDT): This seems to be worse. Has presidential support specialist is addressing this and he [...] does have a follow up with his beater machine operator. I talked with him about trying [...] pretty easily if he stops taking his [id number] Nexium which he takes once a day. 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 with [...] (04/24/2021): Added automatically from request for surgery [id number] Assessment & Plan (07/17/2021 4:18 PM CDT): [...] Description 08/25/2024 2:45 PM CDT Office Visit [facility] [address] [place] [phone] Mark Anthony Castro MD Chronic maxillary sinusitis (Primary Dx) 08/23/2024 Telephone [facility] [address] [place] [phone] Aretha Dent CT results 08/17/2024 9:45 AM CDT Office Visit [facility] Ot[facility]aryngology [address] [place] [phone] Edmundo Guajardo MD Chronic cough (Primary Dx); Chronic pansinusitis 08/04/2024 2:30 PM CDT Lab [facility] Office Bld[facility] [address] OP Lab [address] [place] [address] Chronic pansinusitis; Escherichia coli (E. coli) infection; Other abnormal glucose 08/04/2024 2:00 PM CDT Office Visit [facility] [address] [place] [phone] Mark Anthony Castro MD Chronic pansinusitis; Escherichia coli (E. coli) infection; Other abnormal glucose 07/19/2024 Telephone [facility] Ot[facility]ology [address] [place] [phone] Edmundo Guajardo MD 07/13/2024 5:24 PM CDT - 07/13/2024 11:59 PM CDT Hospital Encounter [facility] [place] [address] Chronic pansinusitis; Chronic cough Discharge Disposition: Discharge to home or self care 07/13/2024 9:45 AM CDT Office Visit [facility] Ot[facility] [address] [place] [phone] Edmundo Guajardo MD Chronic cough (Primary Dx); Chronic pansinusitis; Aphthous ulcer of mouth 07/05/2024 Telephone [facility] [address] [place] [phone] Stefanie Hernandez LPN Cough has returned 06/17/2024 Results Follow-Up [facility] [address] [place] [phone] Aretha Dent Aerobic and anaerobic culture and gram stain Aspirate Sinus, maxillary, right 06/15/2024 Orders Only [facility] [address] [place] [address] Edmundo Guajardo MD 06/14/2024 10:15 AM CDT Office Visit [facility] Ot[facility] [address] [place] [phone] Edmundo Guajardo MD Chronic cough (Primary Dx); Chronic pansinusitis 06/14/2024 9:19 AM CDT - 06/14/2024 11:59 PM CDT Hospital Encounter [facility] Lab [address] [place] [address] Chronic pansinusitis Discharge Disposition: Discharge to home [...] infection comes and goes - on terminal block assembler antibiotics to prevent further mucous build up [...] often do you attend chur ch or evangelical services? 1 to 4 times per year [...] on file Legal Sex Male 12:56 PM CORN SHUCKER Gender Identity Male 05/23/2021 12:08 PM CORN SHUCKER Sexual Orientation Straight 05/23/2021 12 :08 PM CORN SHUCKER Obstetrics History Last Filed Vital Signs Vital [...] 08/25/2024 2:25 PM CDT Plan of Treatment Health Maintenance Due Date Last Done Comments Colon Cancer Screening-Colonoscopy 1950 Hepatitis C Screening 1950 Hepatitis B Screening 1969 Zoster Vaccine (1 of 2) 2001 Well Visit 65+ 02/01/2016 Depression Screening 04/18/2022 04/18/2021, 04/18/19 22 Covid-19 Vaccine (2023-2 5 season) 2023 11/21/2020, 06/20/2020, 05/23/2020 Influenza Vaccine (Season Ended) 2024 12/20/2021, 02/19/2021, 12/19/2019, Additional history exists Fall Risk Assessment 02/08/2025 02/09/2024 DTaP/Tdap/Td Vaccine (2 - Td or Tdap) 02/18/2026 02/19/2016 Pneumococcal vaccine 65+ Completed 020, 02/25/2020, 02/04/2019, Additional history exists Medical Devices Implanted Type Area Concrete Puddler Device Identifier Shelf Expiration Date Model / Serial / Lot [employer] Inc Allograft Bone Putty 2.5cc 700-025 - [id number] Implanted:Qty: 1 on 10/11/2021 by Jayy Granger MD at [facility] N/A: Spine Lumbar [employer] Inc [id number] 04/29/2024-025 / / [id number] [employer] Inqu Paste Mix Plus Dye Colorist Formulator 10cc Bone Graft Hyaluronic Acid Poly [id number] - [id number] Implanted:Qty: 1 on 10/11/2021 by Jayy Granger MD at [facility] N/A: Spine Lumbar [employer] [id number] / / Core Link Foundation L31 Mm X W10 Mm X H11 Mm 3d 12 D Curve Cage Spinal [id number] - [id number] Implanted:Qty: 1 on 10/11/2021 by Jayy Granger MD at [facility] N/A: Spine Lumbar Core Link [id number] 04/12/2023 [id number] / / [id number] Core Link [place] 6.5mm 45mm Spine Pedicle Screw Bone 5500 Series [id number] - [id number] Implanted:Qty: 4 on 10/11/2021 by Jayy Granger MD at [facility] N/A: Spine Lumbar Core Link [id number] / / Core Link [place] Screw Set 5500 Series [id number] - [id number] Implanted:Qty: 4 on 10/11/2021 by Jayy Granger MD at [facility] N/A: Spine Lumbar Core Link [id number] / / Core Link [place] 5.5mm 40mm Line Prebent Nabor Spinal Nonsterile 5500 Series [id number] - [id number] Implanted:Qty: 2 on 10/11/2021 by Jayy Granger MD at [facility] N/A: Spine Lumbar Core Link [id number] / / Procedures Procedure Name Priority Date/Time [...] MD LAB BLOOD ORDERABLES Final R esult IMLLI [address] [facility] Department [place] [address] * Differential, auto (08/04/2024 2:32 PM CDT) Neutrophil abs 4.02 1.50 - 6.50 K/cumm Imm gran abs 0.01 0.00 - 0.10 K/cumm MILLI Lymphocyte abs 1.22 0.80 - 3.30 K/cumm [facility] Monocyte abs 0.61 0.20 - 0.80 K/cumm [facility] Eosinophil abs 0.00 0.00 - 0.50 K/cumm [facility] Basophil abs 0.01 0.00 - 0.10 K/cumm [facility] Neutrophil pct 68.4 % [facility] Comment: Interpretive Data Percent cell count reference ranges are not reported, since discordance with absolute values may lead to misinterpretation of CBC data. Current Interpretive Data was last revised on 2017. Imm gran pct 0.2 % [facility] Comment: Interpretive Data Percent cell count reference ranges are not reported, since discordance with absolute values may lead to misinterpretation of CBC data. Current Interpretive Data was last revised on 2017. Lymphocyte pct 20.8 % [facility] Comment: Interpretive Data Percent cell count reference ranges are not reported, since discordance with absolute values may lead to misinterpretation of CBC data. Current Interpretive Data was last revised on 2017. Monocyte pct 10.4 % [facility] Comment: Interpretive Data Percent cell count reference ranges are not reported, since discordance with absolute values may lead to misinterpretation of CBC data. Current Interpretive Data was last revised on 2017. Eosinophil pct 0.0 % [facility] Comment: Interpretive Data Percent cell count reference ranges are not reported, since discordance with absolute values may lead to misinterpretation of CBC data. Current Interpretive Data was last revised on 2017. Basophil pct 0.2 % [facility] Comment: Interpretive Data Percent cell count reference ranges are not reported, since discordance with absolute values may lead to misinterpretation of CBC data. Current Interpretive Data was last revised on 2017. Blood 08/04/2024 2:32 PM CDT 08/04/2024 4:40 PM CDT us Mark Anthony Castro MD LAB BLOOD ORDERABLES Final R esult MILLI [address] [facility] Department [place] [address] * HIV 1/2 Antibody plus p24 Antigen Blood (08/04/2024 2:32 PM CDT) [facility] HIV 1/2 ab + p24 ag Nonreactive Nonreactive Comment:Nonreactive for HIV- 1 antigen and HIV-1/HIV-2 antibodies. No laboratory evidence of HIV infection. If acute HIV infection is suspected, consider testing for HIV-1 RNA. Current interpretive data was last revised on 21. Blood 08/04/2024 2:32 PM CDT 08/04/2024 4:40 PM CDT Mark Anthony Catsro MD LAB MICROBIOLOGY - GENERAL O RDERABLES Final Result Performing Organization Address [facility]/ZIP Co de Phone Number MILLI [address] Department [place] [address] * (ABNORMAL) CBC with auto differential (08/04/2024 2:32 PM CDT) [facility] WBC 5.87 3.80 - 9.90 K/cumm Hgb 13.9 13.0 - 17.5 g/dL [facility] Hct 42.3 38.9 - 50.3 % [facility] Plt 299 150 - 400 K/cumm [facility] MPV 8.5(L) 9.1 - 12.3 fL [facility] RBC 4.70 4.30 - 5.80 M/cumm [facility] MCV 90.0 81.3 - 96.4 fL [facility] MCH 29.6 27.1 - 33.3 pg [facility] MCHC 32.9 32.3 - 35.7 g/dL [facility] RDW CV 13.0 11.1 - 14.9 % [facility] RDW SD 42.0 35.7 - 48.1 fL [facility] NRBC abs 0.00 0.00 - 0.01 K/cumm [facility] Blood 08/04/2024 2:32 PM CDT 08/04/2024 4:40 PM CDT Mark Anthony Castro MD LAB BLOOD ORDERABLES Final R esult Performing Organization Address City/[facility]/ZIP Co de Phone Number [address] [address] * Erythrocyte sedimentation rate (08/04/2024 2:32 PM CDT) Pathologist [facility] Erythrocyte sedimentation rate 4 1 - 20 mm/hr Blood 08/04/2024 2:32 PM CDT 08/04/2024 4:40 PM CDT us Mark Anthony Castro MD LAB BLOOD ORDERABLES Final R esult Performing Organization Address [facility] de Phone Number [address] [address] * (ABNORMAL) Hemoglobin A1c (08/04/2024 2:32 PM CDT) [facility] Hgb A1C 5.7(H) 4.0 - 5.6 % Estimated Average Glucose 117 mg/dL [facility] Comment: The ADA recommends reporting an estimated Average Glucose (eAG) with all Hemoglobin A1c results using the equation derived from a study of 507 normal and diabetic adults. Minority populations were underrepresented and children were not included. (Diabetes Care 31:1433-8063, 2008). The eAG is not equivalent to a fasting glucose. Blood 08/04/2024 2:32 PM CDT 08/04/2024 4:40 PM CDT us Mark Anthony Castro MD LAB BLOOD ORDERABLES Final R esult Performing Organization Address [facility] de Phone Number [address] [address] * IgE (08/04/2024 2:32 PM CDT) Pathologist [facility] IgE 77 <=100 IUnits/mL Blood 08/04/2024 2:32 PM CDT 08/04/2024 4:40 PM CDT us Mark Anthony Castro MD LAB BLOOD ORDERABLES Final R esult Performing Organization Address [facility] Co de Phone Number [address] [place] [address] * IgA (08/04/2024 2:32 PM CDT) Pathologist [facility] Immunoglobulin A 352 70 - 400 mg/dL Blood 08/04/2024 2:32 PM CDT 08/04/2024 4:40 PM CDT us Mark Anthony Castro MD LAB BLOOD ORDERABLES Final R esult Performing Organization Address [facility] de Phone Number [address] [place] [address] * IgM (08/04/2024 2:32 PM CDT) Pathologist [facility] Immunoglobulin M 72 40 - 230 mg/dL Blood 08/04/2024 2:32 PM CDT 08/04/2024 4:40 PM CDT us Mark Anthony Castro MD LAB BLOOD ORDERABLES Final R esult Performing Organization Address [facility] Co de Phone Number [address] [place] [address] * IgG (08/04/2024 2:32 PM CDT) [facility] Immunoglobulin G 897 700 - 1,600 mg/dL Blood 08/04/2024 2:32 PM CDT 08/04/2024 4:40 PM CDT us Mark Anthony Castro MD LAB BLOOD ORDERABLES Final R esult Performing Organization Address [facility] Co de Phone Number [address] [place] [address] * (ABNORMAL) Comprehensive metabolic panel (08/04/2024 2:32 PM CDT) [facility] Sodium 134(L) 135 - 145 mmol/L Potassium, pl 4.7 3.3 - 4.9 mmol/L [facility] Chloride 98 97 - 110 mmol/L [facility] CO2 28 22 - 32 mmol/L [facility] Anion gap 8 2 - 15 mmol/L [facility] BUN 18 6 - 25 mg/dL [facility] Creatinine 1.04 0.80 - 1.30 mg/dL [facility] Glucose 125 70 - 199 mg/dL [facility] Comment: Interpretive Data Fasting glucose >/= [...] 2022. Calcium 9.2 8.5 - 10.3 mg/dL [facility] Bilirubin, total 0.6 0.1 - 1.2 mg/dL [facility] Protein, pl 7.0 6.5 - 8.5 g/dL [facility] Albumin 4.0 3.5 - 5.0 g/dL [facility] Alk phos 89 40 - 130 Units/L [facility] ALT 19 7 - 55 Units/L [facility] AST 27 10 - 50 Units/L [facility] Blood 08/04/2024 2:32 PM CDT 08/04/2024 4:40 PM CDT us Mark Anthony Castro MD LAB BLOOD ORDERABLES Final R esult [facility] [address] [facility] Department [place] [address] * (ABNORMAL) Aerobic culture and gram stain Drainage Ethmoid sinus, right (07/13/2024 10:29 AM CDT) Direct Specimen Exam Stain: No polymorphonuclear leukocytes seen. Abundant Gram Positive Cocci Comment:Testing performed by : [facility] [address] [place]., [address] Report Final Report: Moderate Mixed microorganisms. Includes the following: Moderate Escherichia coli The susceptibility pattern of this Escherichia coli indicates the possible production of an extended spectrum beta lactamase (ESBL). Patients infected with ESBL-producing organisms require contact isolation precautions. For therapeutic options for this organism, please contact infectious diseases. (.) MILLI JORDAN Comment:Testing performed by : [facility], [address] [place]., [address] Organism ESCHERICHIA COLI MILLI Organism MIXED MICROORGANISMS. MILLI Drainage (Ethmoid sinus, right) 07/13/2024 10:29 AM CDT 07/13/2024 8:50 PM CDT Narrative MILLI JORDAN - 07/17/2024 10:09 AM CDT AEROBIC AND ANAEROBIC CULTURE AND SENSITIVITY Specimen received on an ESwab. Testing performed by [facility] Microbiology Laboratory ([phone]) Specimens submitted from normally sterile body sites [...] - GENERAL ORDERABLES Final Result MILLI JORDAN [address] [place] [address] Department [place] [address] * (ABNORMAL) Aerobic and anaerobic culture and gram stain Aspirate Sinus, maxillary, right (06/14/2024 9:25 AM CDT) Direct Specimen Exam Stain: Rare polymorphonuclear leukocytes seen. Abundant Gram Positive Cocci Moderate Gram Negative Bacilli Comment:Testing performed by : [facility], [address] [place] [address]., [id number] Report Final Report: Abundant Escherichia coli The [...] fragilis (.) MILLI Comment:Testing performed by : [facility], [address] [place]., [address] Organism ESCHERICHIA COLI [facility] Organism STAPHYLOCOCCUS AUREUS [facility] Organism BACTEROIDES FRAGILIS [facility] Aspirate (Sinus, maxillary, right) 06/14/2024 9:25 AM CDT 06/15/2024 11:15 AM CDT Narrative [facility] - 06/20/2024 2:31 PM CDT Collection date/time has been modified to:06/14/2024 09:25. Previous Collection date/time: 06/15/2024 09:25. Testing performed by [facility] Microbiology Laboratory ([phone]) Specimens submitted from normally sterile body sites [...] Final Result Performing Organization Address City/State/ZIP Co ga Phone Number [facility] [address] [facility] Department [place] [address] from Last 3 Months Additional Health Concerns Infection Onset Date Last Indicated 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 07/13/2024 [place] [address] T SENIOR SUPPLEMENT MEDICARE [facility] SENIOR SUPPLEMENT MEDICARE AET SENIOR SUPPLEMENT MEDICARE MEDICARE [employer] SENIOR SUPPLEMENT MEDICARE Advance Directives For more information, please contact: [phone] Documents on File Type Date Recorded Patient Digital Imaging Technician Expl anation Power of Veneer Layer 02/22/2024 5:42 AM * Full Code (Latest Code Status on File) Date Activated Date Inactivated Comments 10/28/2021 10:29 PM 11/06/2021 5:42 PM * Full Code Date Activated Date Inactivated Comments 10/11/2021 4:02 PM 10/12/2021 5:28 PM Care Teams Rn Hospital Relationship Specialty Start Date End Date Anil Gupta MD [address] [facility] [address] [place] [phone] PCP - General Internal Medicine 04/19/21 Anil Gupta MD [address] [facility] [address] [place] [address] Internal Medicine 04/19/21 Adrien Young MD [address] [facility] [address] [place] [address] Consulting Physician Infectious Diseases 11/06/21 Milad Garcia MD [address] [facility] [address] [place] [address] Consulting Physician Orthopedic Surgery 03/02/23 Doni Marino MD [address] [place] [address] [address] [address] Referring Physician Pulmonary Disease 02/09/24 Edmundo Guajardo MD [address] [place] [address] Consulting Physician Otolaryngology 02/22/24
--- OUTSIDE RECORDS SUMMARY | 2024-08-30 08:31 | XMS_ITS | Clinical Summary ---
Author Organization [facility] Address [address] [place] [address] Care Team Providers Care Meat Passer Name Role Phone Sukhdev Santos MD Primary Care Provider [phone] Source Comments [facility] [employer]non-owned Affiliates and Associated Physician Practices is amultiple site organization consisting of ambulatory clinics and hospital sitesin [place], [place], [place] and [place]. This disclosure is being madepursuant to the Care Everywhere program and may not contain all information available regarding this patient. Last updated 17.[facility] [employer] 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
--- OUTSIDE RECORDS SUMMARY | 2024-08-30 08:31 | XMS_ITS | Clinical Summary ---
Author Organization [facility] Address [address] [place] [address] Phone Care Team Providers Care Banking Management Consulting Manager Name Role Phone Anil Gupta MD Primary Care Provider [phone] Allergies No known active allergies Medications albuterol [...] (09/14/2021): Added automatically from request for surgery [id number] Last Assessment & Plan: Mr. Horn is [...] Comments Blood Pressure 112/70 02/24/2022 1:54 PM SYRUPER Pulse 72 02/24/2022 1:54 PM SYRUPER Temperature 35.4 C (95.7 F) 02/24/2022 1:54 PM SYRUPER Respiratory Rate - - Oxygen Saturation - - Inhaled Oxygen Concentration - - Weight 86.2 kg (190 lb) 02/24/2022 1:54 PM SYRUPER Height 182.9 cm (6') 02/24/2022 1:54 PM SYRUPER Body Mass Index 25.77 02/24/2022 1:54 PM SYRUPER Plan of Treatment Health Maintenance Due Date Last Done Comments Pneumococcal PPSV23/PCV13 65 + Years / High and Highest Risk (2 of 4 - PPSV23) 04/21/2020 02/25/2020 Influenza Vaccine (Season Ended) 2024 12/21/19 22, 02/19/2021 Insurance MEDICARE AETNA Care Teams Banking Management Consulting Manager Relationship Specialty Start Date End Date Anil Gupta MD [address] [facility] [address] [place] [address] PCP - General Internal Medicine 01/30/21
--- OUTSIDE RECORDS SUMMARY | 2024-08-30 08:31 | XMS_ITS | Patient Health Record ---
Author Organization [facility] Address [address] [place] [phone] Care Team Providers Care Java Developer Name Role Phone PCP, Does not have a Primary Care Provider Unava ilable Allergies No Known Allergies Reason For Referral No Information Plan Of Treatment No Information Insurance Providers Payer Name Payer Address Payer Phone Subscriber Number Group Number Insured Name Patient Relationship to Insured Coverage Start Date Coverage End Date Self Pay [address] [facility] [address] [place] [address] null, null Self - patient is the insured 1 [employer] [id number] [place] [address] [id number] LIZETTE PÉREZ Self - patient is the insured 1
--- OUTSIDE RECORDS SUMMARY | 2024-08-30 08:31 | XMS_ITS | Continuity of Care Document ---
Author Organization [facility] Address [address] [place] [address] Phone Care Team Providers Care Breast Splitter Name Role Phone Chavez OD, Terry Unavailable Unavailable Advance Directives Directive Yes / No Effective Date File Name No Information Encounters Encounter Description Practice Location Reason(s) For Visit Diagnoses Date Provider Providers Copied on Encounter [facility], [address], [place], [place], [id number], [place] tel:[phone] [facility] No Information Sep-0 8-200 6 Chavez OD Terry. [address], [place], [address], [place]. tel:[phone] Family History Family Member Type Diagnosis Age At Onset No Information Payers Payer name Insurance type Covered green party ID Authoriza tion(s) [employer] Plan CI [id number] Social History Type Description Quantity Date [...]
[2024-08-30 11:07] LABS: Hematocrit 43.9 % (42.0-52.0); Hemoglobin 14.2 g/dL (14.0-18.0); Mean Corpuscular HGB Conc 32.3 g/dl (32-36); Mean Corpuscular Hemoglobin 28.6 pg (26-34); Mean Corpuscular Volume 88.5 fl (80-100); Mean Platelet Volume 8.6 fl (7.4-10.4); Platelet Count Result 297 k/mm3 (150-375); Red Blood Count 4.96 M/mm3 (4.6-6.20); Red Cell Distribution Width 12.7 % (11.5-14.5); White Blood Count 28.4 K/mm3 (4.5-10.0)
[2024-08-30 11:14] LABS: Anion Gap 6 mmol/L (4-12); Blood Urea Nitrogen 17 mg/dL (9-20); Calcium 8.8 mg/dL (8.4-10.2); Carbon Dioxide 29 mmol/L (22-30); Chloride 94 mmol/L (98-107); Cholesterol 138 mg/dL (0-200); Estimated Glomerular Filt Rate > 60; Glucose 107 mg/dL (65-110); HDL Direct 48 mg/dL; Potassium 4.7 mmol/L (3.4-5.0); Sodium 129 mmol/L (137-145); Triglycerides < 30 mg/dL (<150)
[2024-08-30 11:22] LABS: Add Urine Microscopic? YES; Appearance Urine Clear (Clear); Bacteria Urine None Seen /hpf; Bilirubin Urine Negative (Negative); Blood Urine Non-Hemolyzed Trace (Negative); Color Urine Yellow (Yellow); Glucose Urine UA Negative (Negative); Ketones Urine Negative (Negative); Leukocyte Esterase Ur 3+ LEU/UL (Negative); Nitrate Urine Negative (Negative); Non Pathogenic Casts 0-2; Protein Urine Trace mg/dL (Negative); Specific Grav Ur 1.017 (1.001-1.035); Squamous Epithelial Cell Urine None Seen /hpf (Few); WBC Urine >100 /hpf (0-3); pH Urine 7.5 (5.0-9.0)
[2024-08-30 11:28] LABS: LDL Cholesterol Direct 64 mg/dL
[2024-08-30 11:35] LABS: Anisocytosis 1+; Band Neutrophils Percent 15 % (0-6); Lymphocytes Absolute Manual 2.27 K/mm3 (1.1-4.5); Lymphocytes Percent Manual 8 % (18-44); Monocytes Absolute Manual 1.13 K/mm3 (0.1-0.90); Monocytes Percent Manual 4 % (3-9); Neutrophils Absolute Manual 24.99 K/mm3 (1.3-6.7); Neutrophils Percent Manual 73 % (46-73); Platelet Estimate Adequate (Adequate); Total Cells Counted 100
[2024-08-30 11:36] LABS: Burr Cells 1+; Schistocytes None Seen
== END 2024-08-30 08:27 | disposition home or self-care (01) ==
LOC: ANHGOSHLAB 08:27
PROVIDERS: PCP Internal Medicine; Visit Provider Internal Medicine
DX: E87.1 Hypo-osmolality and hyponatremia (principal); E78.2 Mixed hyperlipidemia; R30.0 Dysuria; R10.9 Unspecified abdominal pain; R50.9 Fever, unspecified
CPT/HCPCS: 36415; 80048; 80061; 81001; 85025; 87086; 87186

== ENCOUNTER 2024-09-01 10:14 | Outpatient (CLI) | payer MEDICARE, SELFPAY ==
--- OUTSIDE RECORDS SUMMARY | 2024-09-01 11:15 | XMS_ITS | Continuity of Care Document ---
Author Organization [facility] Address [address] [place] [address] Phone Care Team Providers Care Forester Silviculture Name Role Phone Chavez OD, Terry Unavailable Unavailable Advance Directives Directive Yes / No Effective Date File Name No Information Encounters Encounter Description Practice Location Reason(s) For Visit Diagnoses Date Provider Providers Copied on Encounter [facility], [address], [place], [place], [id number], [place] tel:[phone] [facility] No Information [phone] Chavez OD Terry. [address] , [address], [place], [address], [place]. tel:[phone] Family History Family Member Type Diagnosis Age At Onset No Information Payers Payer name Insurance type Covered constitution party ID Authoriza tion(s) [employer] Plan [id number] Social History Type Description Quantity Date [...]
--- OUTSIDE RECORDS SUMMARY | 2024-09-01 11:15 | XMS_ITS | Clinical Summary ---
Author Organization [facility] Address [address] [place] [address] Care Team Providers Care Photoengraving Photographer Name Role Phone Sukhdev Santos MD Primary Care Provider [phone] Source Comments [facility],non-owned Affiliates and Associated Physician Practices is amultiple site organization consisting of ambulatory clinics and hospital sitesin [place], [place], [place] and [place]. This disclosure is being madepursuant to the Care Everywhere program and may not contain all information available regarding this patient. 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 [address] [place] [address] PCP - General 12/15/18
--- OUTSIDE RECORDS SUMMARY | 2024-09-01 11:15 | XMS_ITS | Encounter Summary ---
Author Organization [facility] Address [address] [place] [address] Phone Care Team Providers Care Client Engagement Manager Name Role Phone Anil Gupta MD Primary Care Provider [phone] Encounter Details Date Type Department Care Team (Late st Contact Info) Description 02/28/2021 Refill [facility] Nephrology and Hypertension [address] [facility], [address] [address] Xander Noel MD [address] [facility], [address] [facility] [place] [address] Social History Tobacco Use Types Packs/Day Years [...] going to and I will call in [employer] documented in this encounter Plan of Treatment Not on file documented as of this encounter Visit Diagnoses Not on filedocumented in this encounter Care Teams Client Engagement Manager Relationship Specialty Start Date End Date Anil Gupta MD [address] [facility] [address] [address] [facility] [address] [place] [address] PCP - General Internal Medicine 01/30/21 documented as of this encounter
--- OUTSIDE RECORDS SUMMARY | 2024-09-01 11:16 | XMS_ITS | Clinical Summary ---
Author Organization [facility] Address [address] [place] [address] Phone Care Team Providers Care Launch Manager Name Role Phone Anil Gupta MD Primary Care Provider [phone] Allergies No known active allergies Medications albuterol [...] (09/14/2021): Added automatically from request for surgery [id number] Last Assessment & Plan: Mr. Horn is [...] Comments Blood Pressure 112/70 02/24/2022 1:54 PM CUSTOMER SUPPORT ASSOCIATE Pulse 72 02/24/2022 1:54 PM CUSTOMER SUPPORT ASSOCIATE Temperature 35.4 C (95.7 F) 02/24/2022 1:54 PM CUSTOMER SUPPORT ASSOCIATE Respiratory Rate - - Oxygen Saturation - - Inhaled Oxygen Concentration - - Weight 86.2 kg (190 lb) 02/24/2022 1:54 PM CUSTOMER SUPPORT ASSOCIATE Height 182.9 cm (6') 02/24/2022 1:54 PM CUSTOMER SUPPORT ASSOCIATE Body Mass Index 25.77 02/24/2022 1:54 PM CUSTOMER SUPPORT ASSOCIATE Plan of Treatment Health Maintenance Due Date Last Done Comments Pneumococcal PPSV23/PCV13 65 + Years / High and Highest Risk (2 of 4 - PPSV23) 04/21/2020 02/25/2020 Influenza Vaccine (Season Ended) 2024 12/21/19 22, 02/19/2021 Insurance MEDICARE AETNA Care Teams Launch Manager Relationship Specialty Start Date End Date Anil Gupta MD [address] [facility] [address] [place] [address] PCP - General Internal Medicine 01/30/21
--- OUTSIDE RECORDS SUMMARY | 2024-09-01 11:16 | XMS_ITS | Patient Health Record ---
Author Organization [facility] Address [address] [place] [address] Care Team Providers Care Glass Worker Name Role Phone PCP, Does not have a Primary Care Provider Unava ilable Allergies No Known Allergies Reason For Referral No Information Plan Of Treatment No Information Insurance Providers Payer Name Payer Address Payer Phone Subscriber Number Group Number Insured Name Patient Relationship to Insured Coverage Start Date Coverage End Date Self Pay [id number] [facility] [place] [address] null, null Self - patient is the insured 1 [employer] [id number] [place] [address] [id number] LIZETTE PÉREZ Self - patient is the insured 1
[2024-09-01 13:08] LABS: Basophils Percent Auto 0.1 % (0.2-1.2); Hematocrit 40.3 % (42.0-52.0); Immature Granulocyte Absolute 0.05 K/mm3 (0.00-0.031); Immature Granulocyte Percent A 0.6 % (0-0.5); Lymphocytes Absolute Auto 0.61 K/mm3 (0.9-3.2); Lymphocytes Percent Auto 7.4 % (18.3-44.2); Mean Corpuscular HGB Conc 32.3 g/dl (32-36); Mean Corpuscular Hemoglobin 28.4 pg (26-34); Mean Corpuscular Volume 88.2 fl (80-100); Monocytes Absolute Auto 0.6 K/mm3 (0.1-0.6); Monocytes Percent Auto 7.8 % (2.6-8.5); Neutrophils Absolute Auto 6.9 K/mm3 (1.3-6.7); Neutrophils Percent Auto 84.1 % (45.5-73.1); Platelet Count Result 233 k/mm3 (150-375); Red Blood Count 4.57 M/mm3 (4.6-6.20); Red Cell Distribution Width 12.6 % (11.5-14.5); White Blood Count 8.2 K/mm3 (4.5-10.0)
== END 2024-09-01 10:15 | disposition home or self-care (01) ==
LOC: ANHGOSHLAB 10:15
PROVIDERS: PCP Internal Medicine; Visit Provider Internal Medicine
DX: R30.0 Dysuria (principal); R53.83 Other fatigue; R10.9 Unspecified abdominal pain; R50.9 Fever, unspecified; M96.1 Postlaminectomy syndrome, not elsewhere classified; Z79.899 Other long term (current) drug therapy
CPT/HCPCS: 36415; 85025

== ENCOUNTER 2024-09-12 11:08 | Outpatient (CLI) | payer MEDICARE, SELFPAY ==
--- NOTE | ~2024-09-12 | XR_ITS ---
Thoracic spine: Clinical Indication: Displacement of neurostimulator AP and lateral views were performed. Possible minimal chronic wedging deformities of T11 and T12. There are minimal degenerative disc shin ges in the thoracic spine. There is DISH of the mid to lower thoracic spine. Neurostimulator leads ar e present, terminating at the T9 level. Paravertebral soft tissues appear normal. Impression: Neurostimulator leads in place, as above. Probable minimal chronic wedging deformities of T11 and T12. Minimal degenerative change with associated DISH. Reviewed, dictated and finalized at location M. Impression: Neurostimulator leads in place, as above. Probable minimal chronic wedging deformities of T11 and T12. Minimal degenerative change with associated DISH.
--- NOTE | ~2024-09-12 | XR_ITS ---
3 VIEWS LUMBAR SPINE Ordering provider: Aydin Irby MD History: . Displacement of implanted electronic neurostim. x 3 months . Comparison: None. FINDINGS: VERTEBRAL BODIES:Dextroscoliosis. Degenerative changes of the spine. Postoperative changes at the lev el of L5-S1. Otherwise, No visible fracture or subluxation. DISK SPACES: Narrowing of the disc L3-4, L4-L5 with a disc spacer at the level of L5-S1. SOFT TISSUES: Normal. Bilateral sacroiliacs. Right spinal stimulator is noted. IMPRESSION: No acute osseous abnormality lumbar spine. Multilevel degenerative disc disease. Reviewed, dictated and finalized at location A.
--- OUTSIDE RECORDS SUMMARY | 2024-09-12 12:27 | XMS_ITS | Clinical Summary ---
Author Organization [facility] Address [address] [place] [address] Care Team Providers Care Drywall Foreman Name Role Phone Sukhdev Santos MD Primary Care Provider [phone] Source Comments [facility],non-owned Affiliates and Associated Physician Practices is amultiple site organization consisting of ambulatory clinics and hospital sitesin [place], [place], [place] and [place]. This disclosure is being madepursuant to the Care Everywhere program and may not contain all information available regarding this patient. Last updated 17.[facility] Allergies No known active allergies Medications * [...] on file Legal Sex Male 10:32 AM ARCHITECTURAL ASSOCIATE Gender Identity Not on file Sexual Orientation [...] this topic Insurance MEDICARE AET[employer] Care Teams Drywall Foreman Relationship Specialty Start Date End Date Sukhdev Santos MD [address] [facility] [address] [place] [id number] PCP - General 12/15/18
--- OUTSIDE RECORDS SUMMARY | 2024-09-12 12:27 | XMS_ITS | Clinical Summary ---
Author Organization [facility] Address [address] [place] [address] Care Team Providers Care Headlight Assembler Name Role Phone Anil Gupta MD Primary Care Provider [phone] Anil Gupta MD Unavailable [phone] Adrien Young MD Unavailable [phone] Milad Garcia MD Unavailable Doni Marino MD Unavailable Edmundo Guajardo MD Unavailable [phone] Allergies No known active allergies Medications rOPINIRole [...] 12/02/2023 Assessment & Plan (03/05/2024 1:46 PM OVEN DAUBER): At his request we are going to [...] weeks. Assessment & Plan (04/05/2024 10:33 AM OVEN DAUBER): Sinuses are open and I do not [...] months. Assessment & Plan (03/05/2024 1:45 PM OVEN DAUBER): His sinuses look much better. The nose [...] understands. Assessment & Plan (04/05/2024 10:33 AM OVEN DAUBER): Overall improved but somewhat persistent. Could be due to his bronchiectasis. If it continues I recommended that he see a health plan specialist. Assessment & Plan (01/13/2024 11:08 AM CDT): He is going through some further evaluation with a hitting coach which I think is appropriate. Could be an asthma type cough. We will talk further after the CT scan is complete. Assessment & Plan (12/02/2023 8:08 PM CDT): This seems to be worse. Has health plan specialist is addressing this and he has [...] does have a follow up with his hitting coach. I talked with him about trying nortriptyline [...] pretty easily if he stops taking his [id number] Nexium which he takes once a day. 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 Otol[facility]ology [address] [place] [phone] Aertha Dent CT results 08/17/2024 9:45 AM CDT Office Visit [facility] Ot[facility] [address] [place] [phone] Edmundo Guajardo MD Chronic cough (Primary Dx); Chronic pansinusitis 08/04/2024 2:30 PM CDT Lab [facility] Medical Office Bldg [address] [place] [phone] Chronic pansinusitis; Escherichia coli (E. coli) infection; Other abnormal glucose 08/04/2024 2:00 PM CDT Office Visit [facility] Infectious Disease [address] [place] [phone] Mark Anthony Castro MD Chronic pansinusitis; Escherichia coli (E. coli) infection; Other abnormal glucose 07/19/[address] [facility] Ot[facility]ology [address] [place] [phone] Edmundo Guajardo MD 07/13/2024 5:24 PM CDT - 07/13/2024 11:59 PM CDT Hospital Encounter [facility] Lab [facility] [place] [address] Chronic pansinusitis; Chronic cough Discharge Disposition: Discharge to home or self care 07/13/2024 9:45 AM CDT Office Visit [facility] [address] [place] [phone] Edmundo Guajardo MD Chronic cough (Primary Dx); Chronic pansinusitis; Aphthous ulcer of mouth 07/05/[address] [facility] [address] [place] [phone] Stefanie Hernandez LPN Cough has returned 06/17/2024 Results Follow-Up [facility] [address] [place] [phone] Aretha Dent Aerobic and anaerobic culture and gram stain Aspirate Sinus, maxillary, right 06/15/2024 Orders Only [facility] Lab [address] [place] [phone] Edmundo Guajardo MD 06/14/2024 10:15 AM CDT Office Visit [facility] Ot[facility] [address] [place] [phone] Edmundo Guajardo MD Chronic cough (Primary Dx); Chronic pansinusitis 06/14/2024 9:19 AM CDT - 06/14/2024 11:59 PM CDT Hospital Encounter [facility] Lab [address] [place] [phone] Chronic pansinusitis Discharge Disposition: Discharge to home [...] often do you attend chur ch or baptist services? 1 to 4 times per year [...] on file Legal Sex Male 12:56 PM OVEN DAUBER Gender Identity Male 05/23/2021 12:08 PM OVEN DAUBER Sexual Orientation Straight 05/23/2021 12 :08 PM OVEN DAUBER Obstetrics History Last Filed Vital Signs Vital [...] history exists Medical Devices Implanted Type Area Preventative Maintenance Technician Device Identifier Shelf Expiration Date Model / Serial / Lot [employer] Allograft Bone Putty 2.5cc 700-025 - [id number] Implanted:Qty: 1 on 10/11/2021 by Jayy Granger MD at [facility] N/A: Spine Lumbar [employer] Inc [id number] 04/29/2024-025 / / [id number] [employer] Inqu Paste Mix Plus Die Hardener 10cc Bone Graft Hyaluronic Acid Poly [id number] - [id number] Implanted:Qty: 1 on 10/11/2021 by Jayy Granger MD at [facility] N/A: Spine Lumbar [employer] [id number] / / Core Link Foundation L31 Mm X W10 Mm X H11 Mm 3d 12 D Curve Cage Spinal [id number] - [id number] Implanted:Qty: 1 on 10/11/2021 by Jayy Granger MD at [facility] N/A: Spine Lumbar Core Link [id number] 04/12/2023 [id number] / / [id number] Core Link [place] 6.5mm 45mm Spine Pedicle Screw Bone 5500 Series 34400-51 - [id number] Implanted:Qty: 4 on 10/11/2021 by Jayy Granger MD at [facility] N/A: Spine Lumbar Core Link [id number] / / Core Link [place] Screw Set 5500 Series 12272-62 - [id number] Implanted:Qty: 4 on 10/11/2021 by Jayy Granger MD at [facility] N/A: Spine Lumbar Core Link [id number] / / Core Link [place] 5.5mm 40mm Line Prebent Nabor Spinal Nonsterile 5500 Series [id number] - [id number] Implanted:Qty: 2 on 10/11/2021 by Jayy Granger MD at [facility] N/A: Spine Lumbar Core Link [id number] / / Procedures Procedure Name Priority Date/Time [...] LAB BLOOD ORDERABLES Final R esult MILLI [address] [facility] Department [place] [address] * Differential, auto (08/04/2024 2:32 PM CDT) Neutrophil abs 4.02 1.50 - 6.50 K/cumm Imm gran abs 0.01 0.00 - 0.10 K/cumm MILLI Lymphocyte abs 1.22 0.80 - 3.30 K/cumm [facility] Monocyte abs 0.61 0.20 - 0.80 K/cumm [facility] Eosinophil abs 0.00 0.00 - 0.50 K/cumm [facility] Basophil abs 0.01 0.00 - 0.10 K/cumm [facility] Neutrophil pct 68.4 % [facility] Comment: Interpretive Data Percent cell count reference ranges are not reported, since discordance with absolute values may lead to misinterpretation of CBC data. Current Interpretive Data was last revised on 2017. Imm gran pct 0.2 % [facility] Comment: Interpretive Data Percent cell count reference ranges are not reported, since discordance with absolute values may lead to misinterpretation of CBC data. Current Interpretive Data was last revised on 2017. Lymphocyte pct 20.8 % [facility] Comment: Interpretive Data Percent cell count reference ranges are not reported, since discordance with absolute values may lead to misinterpretation of CBC data. Current Interpretive Data was last revised on 2017. Monocyte pct 10.4 % [facility] Comment: Interpretive Data Percent cell count reference ranges are not reported, since discordance with absolute values may lead to misinterpretation of CBC data. Current Interpretive Data was last revised on 2017. Eosinophil pct 0.0 % [facility] Comment: Interpretive Data Percent cell count reference ranges are not reported, since discordance with absolute values may lead to misinterpretation of CBC data. Current Interpretive Data was last revised on 2017. Basophil pct 0.2 % [facility] Comment: Interpretive Data Percent cell count reference ranges are not reported, since discordance with absolute values may lead to misinterpretation of CBC data. Current Interpretive Data was last revised on 2017. Blood 08/04/2024 2:32 PM CDT 08/04/2024 4:40 PM CDT us Mark Anthony Castro MD LAB BLOOD ORDERABLES Final R esult [facility]ILLI [address] [facility] Department [place] [address] * HIV 1/2 Antibody plus p24 Antigen Blood (08/04/2024 2:32 PM CDT) [facility] HIV 1/2 ab + p24 ag [...] O RDERABLES Final Result Performing Organization Address [facility]/ZIP Co de Phone Number MILLI [address] Department [place] [address] * (ABNORMAL) CBC with auto differential (08/04/2024 2:32 PM CDT) [facility] WBC 5.87 3.80 - 9.90 K/cumm Hgb 13.9 13.0 - 17.5 g/dL [facility] Hct 42.3 38.9 - 50.3 % [facility] Plt 299 150 - 400 K/cumm [facility] MPV 8.5(L) 9.1 - 12.3 fL [facility] RBC 4.70 4.30 - 5.80 M/cumm [facility] MCV 90.0 81.3 - 96.4 fL [facility] MCH 29.6 27.1 - 33.3 pg [facility] MCHC 32.9 32.3 - 35.7 g/dL [facility] RDW CV 13.0 11.1 - 14.9 % [facility] RDW SD 42.0 35.7 - 48.1 fL [facility] NRBC abs 0.00 0.00 - 0.01 K/cumm [facility] Blood 08/04/2024 2:32 PM CDT 08/04/2024 4:40 PM CDT Mark Anthony Castro MD LAB BLOOD ORDERABLES Final R esult Performing Organization Address City/[facility]/ZIP Co de Phone Number [address] [address] * Erythrocyte sedimentation rate (08/04/2024 2:32 PM CDT) Pathologist [facility] Erythrocyte sedimentation rate 4 1 - 20 mm/hr Blood 08/04/2024 2:32 PM CDT 08/04/2024 4:40 PM CDT us Mark Anthony Castro MD LAB BLOOD ORDERABLES Final R esult Performing Organization Address [facility] de Phone Number [address] [address] * (ABNORMAL) Hemoglobin A1c (08/04/2024 2:32 PM CDT) [facility] Hgb A1C 5.7(H) 4.0 - 5.6 % Estimated Average Glucose 117 mg/dL [facility] Comment: The ADA recommends reporting an estimated Average Glucose (eAG) with all Hemoglobin A1c results using the equation derived from a study of 507 normal and diabetic adults. Minority populations were underrepresented and children were not included. (Diabetes Care 31:3025-9750, 2008). The eAG is not equivalent to a fasting glucose. Blood 08/04/2024 2:32 PM CDT 08/04/2024 4:40 PM CDT us Mark Anthony Castro MD LAB BLOOD ORDERABLES Final R esult Performing Organization Address [facility] de Phone Number [address] [address] * IgE (08/04/2024 2:32 PM CDT) Pathologist [facility] IgE 77 <=100 IUnits/mL Blood 08/04/2024 2:32 PM CDT 08/04/2024 4:40 PM CDT us Mark Anthony Castro MD LAB BLOOD ORDERABLES Final R esult Performing Organization Address [facility] Co de Phone Number [address] [place] [address] * IgA (08/04/2024 2:32 PM CDT) Pathologist [facility] Immunoglobulin A 352 70 - 400 mg/dL Blood 08/04/2024 2:32 PM CDT 08/04/2024 4:40 PM CDT us Mark Anthony Castro MD LAB BLOOD ORDERABLES Final R esult Performing Organization Address [facility] de Phone Number [address] [place] [address] * IgM (08/04/2024 2:32 PM CDT) Pathologist [facility] Immunoglobulin M 72 40 - 230 mg/dL Blood 08/04/2024 2:32 PM CDT 08/04/2024 4:40 PM CDT us Mark Anthony Castro MD LAB BLOOD ORDERABLES Final R esult Performing Organization Address [facility] Co de Phone Number [address] [place] [address] * IgG (08/04/2024 2:32 PM CDT) [facility] Immunoglobulin G 897 700 - 1,600 mg/dL Blood 08/04/2024 2:32 PM CDT 08/04/2024 4:40 PM CDT us Mark Anthony Castro MD LAB BLOOD ORDERABLES Final R esult Performing Organization Address [facility] Co de Phone Number [address] [place] [address] * (ABNORMAL) Comprehensive metabolic panel (08/04/2024 2:32 PM CDT) [facility] Sodium 134(L) 135 - 145 mmol/L Potassium, pl 4.7 3.3 - 4.9 mmol/L [facility] Chloride 98 97 - 110 mmol/L [facility] CO2 28 22 - 32 mmol/L [facility] Anion gap 8 2 - 15 mmol/L [facility] BUN 18 6 - 25 mg/dL [facility] Creatinine 1.04 0.80 - 1.30 mg/dL [facility] Glucose 125 70 - 199 mg/dL [facility] Comment: Interpretive Data Fasting glucose >/= [...] 2022. Calcium 9.2 8.5 - 10.3 mg/dL [facility] Bilirubin, total 0.6 0.1 - 1.2 mg/dL [facility] Protein, pl 7.0 6.5 - 8.5 g/dL [facility] Albumin 4.0 3.5 - 5.0 g/dL [facility] Alk phos 89 40 - 130 Units/L [facility] ALT 19 7 - 55 Units/L [facility] AST 27 10 - 50 Units/L [facility] Blood 08/04/2024 2:32 PM CDT 08/04/2024 4:40 PM CDT us Mark Anthony Castro MD LAB BLOOD ORDERABLES Final R esult [facility]ILLIAN [address] [facility] Department [place] [address] * (ABNORMAL) Aerobic culture and gram stain Drainage Ethmoid sinus, right (07/13/2024 10:29 AM CDT) Direct Specimen Exam Stain: No polymorphonuclear leukocytes seen. Abundant Gram Positive Cocci Comment:Testing performed by : [facility] [address] [place]., [address] Report Final Report: Moderate Mixed microorganisms. Includes the following: Moderate Escherichia coli The susceptibility pattern of this Escherichia coli indicates the possible production of an extended spectrum beta lactamase (ESBL). Patients infected with ESBL-producing organisms require contact isolation precautions. For therapeutic options for this organism, please contact infectious diseases. (.) MILLI JORDAN Comment:Testing performed by : [facility], [address] [place]., [address] Organism ESCHERICHIA COLI MILLI Organism MIXED MICROORGANISMS. MILLI Drainage (Ethmoid sinus, right) 07/13/2024 10:29 AM CDT 07/13/2024 8:50 PM CDT Narrative MILLI JORDAN - 07/17/2024 10:09 AM CDT AEROBIC AND ANAEROBIC CULTURE AND SENSITIVITY Specimen received on an ESwab. Testing performed by [facility] Microbiology Laboratory ([phone]) Specimens submitted from normally sterile body sites [...] - GENERAL ORDERABLES Final Result MILLI JORDAN [address] [place] [address] Department [place] [address] * (ABNORMAL) Aerobic and anaerobic culture and gram stain Aspirate Sinus, maxillary, right (06/14/2024 9:25 AM CDT) Direct Specimen Exam Stain: Rare polymorphonuclear leukocytes seen. Abundant Gram Positive Cocci Moderate Gram Negative Bacilli Comment:Testing performed by : [facility], [address] [place] [address]., [id number] Report Final Report: Abundant Escherichia coli The [...] fragilis (.) MILLI Comment:Testing performed by : [facility], [address] [place]., [address] Organism ESCHERICHIA COLI [facility] Organism STAPHYLOCOCCUS AUREUS [facility] Organism BACTEROIDES FRAGILIS [facility] Aspirate (Sinus, maxillary, right) 06/14/2024 9:25 AM CDT 06/15/2024 11:15 AM CDT Narrative [facility] - 06/20/2024 2:31 PM CDT Collection date/time has been modified to:06/14/2024 09:25. Previous Collection date/time: 06/15/2024 09:25. 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 07/13/2024 Insurance MEDICARE [facility] Address: [facility] [address] [place] [address] T SENIOR SUPPLEMENT MEDICARE [facility] SENIOR SUPPLEMENT MEDICARE AET SENIOR SUPPLEMENT MEDICARE MEDICARE [employer] SENIOR SUPPLEMENT MEDICARE Advance Directives For more information, please contact: [phone] Documents on File Type Date Recorded Patient Pin Inserter Regulator Expl anation Power of Rural Service Engineer 02/22/2024 5:42 AM * Full Code (Latest Code Status on File) Date Activated Date Inactivated Comments 10/28/2021 10:29 PM 11/06/2021 5:42 PM * Full Code Date Activated Date Inactivated Comments 10/11/2021 4:02 PM 10/12/2021 5:28 PM Care Teams Headlight Assembler Relationship Specialty Start Date End Date Anil Gupta MD [address] [facility] [address] [facility] [facility] [place] [id number] PCP - General Internal Medicine 04/19/21 Anil Gupta MD [address] [facility] [address] [place] [address] Internal Medicine 04/19/21 Adrien Young MD [address] [facility] [address] [place] [address] Consulting Physician Infectious Diseases 11/06/21 Milad Garcia MD [address] [facility] [address] [place] [address] Consulting Physician Orthopedic Surgery 03/02/23 Doni Marino MD [address] [place] [address] [address] [address] Referring Physician Pulmonary Disease 02/09/24 Edmundo Guajardo MD [address] [place] [address] Consulting Physician Otolaryngology 02/22/24
--- OUTSIDE RECORDS SUMMARY | 2024-09-12 12:27 | XMS_ITS | Clinical Summary ---
Author Organization [facility] Address [address] [place] [phone] Phone Care Team Providers Care Nutrition Internship Name Role Phone Anil Gupta MD Primary Care Provider [phone] Allergies No known active allergies Medications albuterol [...] (09/14/2021): Added automatically from request for surgery [id number] Last Assessment & Plan: Mr. Horn is [...] Comments Blood Pressure 112/70 02/24/2022 1:54 PM MEDICAL CASH POSTER Pulse 72 02/24/2022 1:54 PM MEDICAL CASH POSTER Temperature 35.4 C (95.7 F) 02/24/2022 1:54 PM MEDICAL CASH POSTER Respiratory Rate - - Oxygen Saturation - - Inhaled Oxygen Concentration - - Weight 86.2 kg (190 lb) 02/24/2022 1:54 PM MEDICAL CASH POSTER Height 182.9 cm (6') 02/24/2022 1:54 PM MEDICAL CASH POSTER Body Mass Index 25.77 02/24/2022 1:54 PM MEDICAL CASH POSTER Plan of Treatment Health Maintenance Due Date Last Done Comments Pneumococcal PPSV23/PCV13 65 + Years / Low and Medium Risk (2 of 3 - PPSV23) 02/24/2021 02/25/2020 Influenza Vaccine (Season Ended) 2024 12/21/19 22, 02/19/2021 Insurance MEDICARE [employer] Care Teams Nutrition Internship Relationship Specialty Start Date End Date Anil Gupta MD [address] [facility] [address] [place] [address] PCP - General Internal Medicine 01/30/21
--- OUTSIDE RECORDS SUMMARY | 2024-09-12 12:27 | XMS_ITS | Continuity of Care Document ---
Author Organization [facility] Address [address] [place] [address] Phone Care Team Providers Care Bending Roll Operator Name Role Phone Chavez OD, Terry Unavailable Unavailable Advance Directives Directive Yes / No Effective Date File Name No Information Encounters Encounter Description Practice Location Reason(s) For Visit Diagnoses Date Provider Providers Copied on Encounter [facility], [address], [place], [place], [id number], [place] tel:[phone] [facility] No Information [phone] Chavez OD Terry. [address] , [address], [place], [address], [place]. tel:[phone] Family History Family Member Type Diagnosis Age At Onset No Information Payers Payer name Insurance type Covered constitution party ID Authoriza tion(s) [employer] CI [id number] Social History Type Description Quantity Date [...]
--- OUTSIDE RECORDS SUMMARY | 2024-09-12 12:27 | XMS_ITS | Referral Summary ---
Author Organization [facility] Address [address] [place] [address] Care Team Providers Care Revenue Agent Name Role Phone Anil Gupta MD Primary Care Provider [phone] Anil Gutpa MD Unavailable [phone] Adrien Young MD Unavailable [phone] Milad Garcia MD Unavailable Doni Marino MD Unavailable Edmundo Guajardo MD Unavailable [phone] Encounters Date Type Department Care Team Description 08/25/2024 2:45 PM CDT Office Visit [facility] Infectious Disease [address] [phone] Mark Anthony Castro MD Chronic maxillary sinusitis (Primary Dx) 08/23/[address] [facility] Otolaryngology [address] [place] [phone] results 08/17/2024 9:45 AM CDT Office Visit [facility] Otolaryngology [address] [place] [phone] Edmundo Guajardo MD Chronic cough (Primary Dx); Chronic pansinusitis 08/04/2024 2:30 PM CDT Lab [facility] Medical Office Bldg 3 OP Lab [address] [id number] [phone] Chronic pansinusitis; Escherichia coli (E. coli) infection; Other abnormal glucose 08/04/2024 2:00 PM CDT Office Visit [facility] Infectious Disease [address] [facility] [address] [place] [address] Mark Anthony Castro MD Chronic pansinusitis; Escherichia coli (E. coli) infection; Other abnormal glucose 07/19/[address] [facility] Otolaryngology [address] [place] [phone] Edmundo Guajardo MD 07/13/2024 5:24 PM CDT - 07/13/2024 11:59 PM CDT Hospital Encounter [facility] Lab [address] [place] [phone] Chronic pansinusitis; Chronic cough Discharge Disposition: Discharge to home or self care 07/13/2024 9:45 AM CDT Office Visit [facility] Otolaryngology [address] [place] [phone] Edmundo Guajardo MD Chronic cough (Primary Dx); Chronic pansinusitis; Aphthous ulcer of mouth 07/05/[address] [facility] Otolaryngology [address] [place] [phone] Stefanie Hernandez LPN Cough has returned 06/17/2024 Results Follow-Up [facility] Otolaryngology [address] [place] [phone] Aretha Dent Aerobic and anaerobic culture and gram stain Aspirate Sinus, maxillary, right 06/15/2024 Orders Only [facility] Lab [address] [place] [address] Edmundo Guajardo MD 06/14/2024 9:19 AM CDT - 06/14/2024 11:59 PM CDT Hospital Encounter [facility] Lab [address] [place] [address] Chronic pansinusitis Discharge Disposition: Discharge to home or self care 06/14/2024 10:15 AM CDT Office Visit [facility] Otolaryngology [address] [place] [address] Edmundo Guajardo MD Chronic cough [...] 12/02/2023 Assessment & Plan (03/05/2024 1:46 PM FUNDRAISING ASSISTANT): At his request we are going to [...] weeks. Assessment & Plan (04/05/2024 10:33 AM FUNDRAISING ASSISTANT): Sinuses are open and I do not [...] months. Assessment & Plan (03/05/2024 1:45 PM FUNDRAISING ASSISTANT): His sinuses look much better. The nose [...] understands. Assessment & Plan (04/05/2024 10:33 AM FUNDRAISING ASSISTANT): Overall improved but somewhat persistent. Could be due to his bronchiectasis. If it continues I recommended that he see a clerical specialist. Assessment & Plan (01/13/2024 11:08 AM CDT): He is going through some further evaluation with a obstetrics and gynecology professor which I think is appropriate. Could be an asthma type cough. We will talk further after the CT scan is complete. Assessment & Plan (12/02/2023 8:08 PM CDT): This seems to be worse. Has clerical specialist is addressing this and he has [...] does have a follow up with his obstetrics and gynecology professor. I talked with him about trying nortriptyline [...] pretty easily if he stops taking his [id number] Nexium which he takes once a day. 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 1 to 4 times per year [...] on file Legal Sex Male 12:56 PM FUNDRAISING ASSISTANT Gender Identity Male 05/23/2021 12:08 PM FUNDRAISING ASSISTANT Sexual Orientation Straight 05/23/2021 12 :08 PM FUNDRAISING ASSISTANT Last Filed Vital Signs Vital Sign Reading [...] on file Medical Devices Implanted Type Area Od Grinder Operator Device Identifier Shelf Expiration Date Model / Serial / Lot [employer] Allograft Bone Putty 2.5cc 700-025 - [id number] Implanted:Qty: 1 on 10/11/2021 by Jayy Granger MD at [facility] N/A: Spine Lumbar [employer] [id number] 04/29/2024 700-025 / / [id number] [employer] Inqu Paste Mix Plus Pharmacy Affairs Assistant 10cc Bone Graft Hyaluronic Acid Poly [id number] - [id number] Implanted:Qty: 1 on 10/11/2021 by Jayy Granger MD at [facility] N/A: Spine Lumbar [employer] [id number] / / Core Link Foundation L31 Mm X W10 Mm X H11 Mm 3d 12 D Curve Cage Spinal [id number] - [id number] Implanted:Qty: 1 on 10/11/2021 by Jayy Granger MD at [facility] N/A: Spine Lumbar Core Link [id number] 04/12/2023 [id number] / / [id number] Core Link [place] 6.5mm 45mm Spine Pedicle Screw Bone 5500 Series [id number] - [id number] Implanted:Qty: 4 on 10/11/2021 by Jayy Granger MD at [facility] N/A: Spine Lumbar Core Link [id number] / / Core Link [place] Screw Set 5500 Series [id number] - [id number] Implanted:Qty: 4 on 10/11/2021 by Jayy Granger MD at [facility] N/A: Spine Lumbar Core Link [id number] / / Core Link [place] 5.5mm 40mm Line Prebent Nabor Spinal Nonsterile 5500 Series [id number] - [id number] Implanted:Qty: 2 on 10/11/2021 by Jayy Granger MD at [facility] N/A: Spine Lumbar Core Link [id number] / / Procedures Procedure Name Priority Date/Time [...] MD LAB BLOOD ORDERABLES Final R esult [facility]ACH[facility] [address] [facility] Department [place] [address] * Differential, auto (08/04/2024 2:32 PM CDT) Neutrophil abs 4.02 1.50 - 6.50 K/cumm Imm gran abs 0.01 0.00 - 0.10 K/cumm [facility] Lymphocyte abs 1.22 0.80 - 3.30 K/cumm [facility] Monocyte abs 0.61 0.20 - 0.80 K/cumm [facility] Eosinophil abs 0.00 0.00 - 0.50 K/cumm [facility] Basophil abs 0.01 0.00 - 0.10 K/cumm [facility] Neutrophil pct 68.4 % [facility] Comment: Interpretive Data Percent cell count reference ranges are not reported, since discordance with absolute values may lead to misinterpretation of CBC data. Current Interpretive Data was last revised on 2017. Imm gran pct 0.2 % [facility] Comment: Interpretive Data Percent cell count reference ranges are not reported, since discordance with absolute values may lead to misinterpretation of CBC data. Current Interpretive Data was last revised on 2017. Lymphocyte pct 20.8 % [facility] Comment: Interpretive Data Percent cell count reference ranges are not reported, since discordance with absolute values may lead to misinterpretation of CBC data. Current Interpretive Data was last revised on 2017. Monocyte pct 10.4 % [facility] Comment: Interpretive Data Percent cell count reference ranges are not reported, since discordance with absolute values may lead to misinterpretation of CBC data. Current Interpretive Data was last revised on 2017. Eosinophil pct 0.0 % [facility] Comment: Interpretive Data Percent cell count reference ranges are not reported, since discordance with absolute values may lead to misinterpretation of CBC data. Current Interpretive Data was last revised on 2017. Basophil pct 0.2 % [facility] Comment: Interpretive Data Percent cell count reference ranges are not reported, since discordance with absolute values may lead to misinterpretation of CBC data. Current Interpretive Data was last revised on 2017. Blood 08/04/2024 2:32 PM CDT 08/04/2024 4:40 PM CDT us Mark Anthony Castro MD LAB BLOOD ORDERABLES Final R esult MILLI [address] [facility] Department of Laboratories [place], [place] [phone] * HIV 1/2 Antibody plus p24 Antigen Blood (08/04/2024 2:32 PM CDT) [facility] HIV 1/2 ab + p24 ag Nonreactive Nonreactive Comment:Nonreactive for HIV- 1 antigen and HIV-1/HIV-2 antibodies. No laboratory evidence of HIV infection. If acute HIV infection is suspected, consider testing for HIV-1 RNA. Current interpretive data was last revised on 21. Blood 08/04/2024 2:32 PM CDT 08/04/2024 4:40 PM CDT Mark Anthony Castro MD LAB MICROBIOLOGY - GENERAL O RDERABLES Final Result [facility] [address] [facility] Department [place] [address] * (ABNORMAL) CBC with auto differential (08/04/2024 2:32 PM CDT) [facility] WBC 5.87 3.80 - 9.90 K/cumm Hgb 13.9 13.0 - 17.5 g/dL [facility] Hct 42.3 38.9 - 50.3 % [facility] Plt 299 150 - 400 K/cumm [facility] MPV 8.5(L) 9.1 - 12.3 fL [facility] RBC 4.70 4.30 - 5.80 M/cumm [facility] MCV 90.0 81.3 - 96.4 fL [facility] MCH 29.6 27.1 - 33.3 pg [facility] MCHC 32.9 32.3 - 35.7 g/dL [facility] RDW CV 13.0 11.1 - 14.9 % [facility] RDW SD 42.0 35.7 - 48.1 fL [facility] NRBC abs 0.00 0.00 - 0.01 K/cumm [facility] Blood 08/04/2024 2:32 PM CDT 08/04/2024 4:40 PM CDT Mark Anthony Castro MD LAB BLOOD ORDERABLES Final R esult Performing Organization Address City/[facility] [address]/[facility] Co de Phone Number MILLI [facility] [employer] [place] [address] * Erythrocyte sedimentation rate (08/04/2024 2:32 PM CDT) Pathologist [facility] Erythrocyte sedimentation rate 4 1 - 20 mm/hr Blood 08/04/2024 2:32 PM CDT 08/04/2024 4:40 PM CDT Mark Anthony Castro MD LAB BLOOD ORDERABLES Final R esult Performing Organization Address [facility] [address]/[facility] de Phone Number LACH[address] [employer] [place] [address] * (ABNORMAL) Hemoglobin A1c (08/04/2024 2:32 PM CDT) [facility] Hgb A1C 5.7(H) 4.0 - 5.6 % Estimated Average Glucose 117 mg/dL [facility] Comment: The ADA recommends reporting an estimated Average Glucose (eAG) with all Hemoglobin A1c results using the equation derived from a study of 507 normal and diabetic adults. Minority populations were underrepresented and children were not included. (Diabetes Care 31:7800-2230, 2008). The eAG is not equivalent to a fasting glucose. Blood 08/04/2024 2:32 PM CDT 08/04/2024 4:40 PM CDT us Mark Anthony Castro MD LAB BLOOD ORDERABLES Final R esult Performing Organization Address [facility] [address]/[facility] Co de Phone Number [place] [phone] [facility] [employer] [place] [address] * IgE (08/04/2024 2:32 PM CDT) Pathologist [facility] IgE 77 <=100 IUnits/mL Blood 08/04/2024 2:32 PM CDT 08/04/2024 4:40 PM CDT us Mark Anthony Castro MD LAB BLOOD ORDERABLES Final R esult Performing Organization Address City/[facility] [address]/ZIP Co de Phone Number [address] [address] * IgA (08/04/2024 2:32 PM CDT) Immunoglobulin A 352 70 - 400 mg/dL Blood 08/04/2024 2:32 PM CDT 08/04/2024 4:40 PM CDT Mark Anthony Castro MD LAB BLOOD ORDERABLES Final R esult Performing Organization Address [facility] [address]/[facility] Co de Phone Number [address] [employer] [place] [address] * IgM (08/04/2024 2:32 PM CDT) Pathologist [facility] Immunoglobulin M 72 40 - 230 mg/dL Blood 08/04/2024 2:32 PM CDT 08/04/2024 4:40 PM CDT Mark Anthony Castro MD LAB BLOOD ORDERABLES Final R esult Performing Organization Address [facility] [address]/[facility] Co de Phone Number [address] [employer] [place] [address] * IgG (08/04/2024 2:32 PM CDT) Pathologist [facility] Immunoglobulin G 897 700 - 1,600 mg/dL Blood 08/04/2024 2:32 PM CDT 08/04/2024 4:40 PM CDT us Mark Anthony Castro MD LAB BLOOD ORDERABLES Final R esult Performing Organization Address City/[facility] [address]/[facility] Co de Phone Number [address] [employer] [place] [address] * (ABNORMAL) Comprehensive metabolic panel (08/04/2024 2:32 PM CDT) Pathologist [facility] Sodium 134(L) 135 - 145 mmol/L Potassium, pl 4.7 3.3 - 4.9 mmol/L [facility] Chloride 98 97 - 110 mmol/L [facility] CO2 28 22 - 32 mmol/L [facility] Anion gap 8 2 - 15 mmol/L [facility] BUN 18 6 - 25 mg/dL [facility] Creatinine 1.04 0.80 - 1.30 mg/dL [facility] Glucose 125 70 - 199 mg/dL [facility] Comment: Interpretive Data Fasting glucose >/= 126 [...] 2022. Calcium 9.2 8.5 - 10.3 mg/dL [facility] Bilirubin, total 0.6 0.1 - 1.2 mg/dL [facility] Protein, pl 7.0 6.5 - 8.5 g/dL [facility] Albumin 4.0 3.5 - 5.0 g/dL [facility] Alk phos 89 40 - 130 Units/L [facility] ALT 19 7 - 55 Units/L [facility] AST 27 10 - 50 Units/L [facility] Blood 08/04/2024 2:32 PM CDT 08/04/2024 4:40 PM CDT us Mark Anthony Castro MD LAB BLOOD ORDERABLES Final R esult MILL[facility] [address] [facility] Department [place] [address] * (ABNORMAL) Aerobic culture and gram stain Drainage Ethmoid sinus, right (07/13/2024 10:29 AM CDT) Direct Specimen Exam Stain: No polymorphonuclear leukocytes seen. Abundant Gram Positive Cocci Comment:Testing performed by : [facility], [address] [place]., [address] Report Final Report: Moderate Mixed microorganisms. Includes the following: Moderate Escherichia coli The susceptibility pattern of this Escherichia coli indicates the possible production of an extended spectrum beta lactamase (ESBL). Patients infected with ESBL-producing organisms require contact isolation precautions. For therapeutic options for this organism, please contact infectious diseases. (.) MILLI JORDAN Comment:Testing performed by : [facility], [address] [place]., [address] Organism ESCHERICHIA COLI MILLI Organism MIXED MICROORGANISMS. MILLI Drainage (Ethmoid sinus, right) 07/13/2024 10:29 AM CDT 07/13/2024 8:50 PM CDT Narrative MILLI - 07/17/2024 10:09 AM CDT AEROBIC AND ANAEROBIC CULTURE AND SENSITIVITY Specimen received on an ESwab. Testing performed by [facility] Microbiology Laboratory ([phone]) Specimens submitted from normally sterile body sites [...] - GENERAL ORDERABLES Final Result MILL[facility] [address] [facility] Department [place] [address] * (ABNORMAL) Aerobic and anaerobic culture and gram stain Aspirate Sinus, maxillary, right (06/14/2024 9:25 AM CDT) Direct Specimen Exam Stain: Rare polymorphonuclear leukocytes seen. Abundant Gram Positive Cocci Moderate Gram Negative Bacilli Comment:Testing performed by : [facility], [address] [place] [address]., [id number] Report Final Report: Abundant Escherichia coli The [...] fragilis (.) MILLI Comment:Testing performed by : [facility], [address] [place] [address]., [address] Organism ESCHERICHIA COLI [facility] Organism STAPHYLOCOCCUS AUREUS [facility] Organism BACTEROIDES FRAGILIS [facility] Aspirate (Sinus, maxillary, right) 06/14/2024 9:25 AM CDT 06/15/2024 11:15 AM CDT Narrative [facility] - 06/20/2024 2:31 PM CDT Collection date/time has been modified to:06/14/2024 09:25. Previous Collection date/time: 06/15/2024 09:25. Testing performed by [facility] Microbiology Laboratory ([phone]) Specimens submitted from normally sterile body sites [...] Final Result Performing Organization Address City/State/ZIP Co va Phone Number [facility] [address] [facility] Department [place] [address] from Last 3 Months Additional Health Concerns Infection Onset Date Last Indicated 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 07/13/2024 Insurance MEDICARE A[employer] SENIOR SUPPLEMENT MEDICARE T SENIOR SUPPLEMENT MEDICARE [employer]ET[employer] SENIOR SUPPLEMENT MEDICARE AET SENIOR SUPPLEMENT MEDICARE AET[employer] SENIOR SUPPLEMENT MEDICARE Advance Directives For more information, please contact: [phone] Documents on File Type Date Recorded Patient Thread Inspector Expl anation Power of Core Layer Machine Operator 02/22/2024 5:42 AM * Full Code (Latest Code Status on File) Date Activated Date Inactivated Comments 10/28/2021 10:29 PM 11/06/2021 5:42 PM * Full Code Date Activated Date Inactivated Comments 10/11/2021 4:02 PM 10/12/2021 5:28 PM Care Teams Revenue Agent Relationship Specialty Start Date End Date Anil Gupta MD [address] [place] [address] PCP - General Internal Medicine 04/19/21 Anil Gupta MD [address] [place] [address] Internal Medicine 04/19/21 Adrien Young MD [address] [place] [address] Consulting Physician Infectious Diseases 11/06/21 Milad Garcia MD [address] [place] [address] Consulting Physician Orthopedic Surgery 03/02/23 Doni Marino MD [address] [place] [address] [address] [place] [address] Referring Physician Pulmonary Disease 02/09/24 Edmundo Guajardo MD [address] [place] [address] Consulting Physician Otolaryngology 02/22/24
--- OUTSIDE RECORDS SUMMARY | 2024-09-12 12:27 | XMS_ITS | Encounter Summary ---
Author Organization [facility] Address [address] [place] [phone] Phone Care Team Providers Care Patient Account Analyst Name Role Phone Anil Gupta MD Primary Care Provider [phone] Encounter Details Date Type Department Care Team (Late st Contact Info) Description 02/28/2021 Refill [facility] Nephrology and Hypertension [address] [facility], [address] [address] Xander Noel MD [address] [facility], SUITE [id number] [place] [address] Social History Tobacco Use Types Packs/Day Years [...] going to and I will call in [facility] documented in this encounter Plan of Treatment Not on file documented as of this encounter Visit Diagnoses Not on filedocumented in this encounter Care Teams Patient Account Analyst Relationship Specialty Start Date End Date Anil Gupta MD [address] [facility] [address] [facility] [address] [place] [address] PCP - General Internal Medicine 01/30/21 documented as of this encounter
--- OUTSIDE RECORDS SUMMARY | 2024-09-12 12:27 | XMS_ITS | Clinical Summary ---
Author Organization [facility] Address [facility] [place] [address] Care Team Providers Care Metal Handler Name Role Phone Anil Gupta MD Primary Care Provider [phone] Allergies No known active allergies Medications valACYclovir [...] mouth 2 (two) times daily. 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 Not on file Not on f ile Last Filed Vital Signs Vital Sign Reading Time Taken Comments Blood Pressure 120/68 03/19/2021 9:34 AM MEDICAL RECORD TECHNICIAN Pulse 83 03/19/2021 9:34 AM MEDICAL RECORD TECHNICIAN Temperature 36.8 C (98.2 F) 03/19/2021 9:34 AM MEDICAL RECORD TECHNICIAN Respiratory Rate 20 03/19/2021 9:34 AM MEDICAL RECORD TECHNICIAN Oxygen Saturation 99% 03/19/2021 9:34 AM MEDICAL RECORD TECHNICIAN Inhaled Oxygen Concentration - - Weight 85 kg (187 lb 6.4 oz) 03/19/2021 9:34 AM MEDICAL RECORD TECHNICIAN Height 182.9 cm (6') 03/19/2021 9:34 AM MEDICAL RECORD TECHNICIAN Body Mass Index 25.42 03/19/2021 9:34 AM MEDICAL RECORD TECHNICIAN Plan of Treatment Health Maintenance Due Date Last Done Comments Colorectal Cancer Screening Colonoscopy (10 Years) 1950 Hepatitis C 1969 DTaP, Tdap and Td Vaccines ( 1 - Tdap) 1970 Zoster Vaccines (1 of 2) 2001 Annual Medicare Wellness Visit 02/01/2016 Pneumococcal Vaccine: 50+ Years (2 of 2 - PPSV23) 02/24/2021 02/25/2020, 02/04/2019, 02/19/2016 COVID-19 Vaccine (3 - 2023-2 5 season) 2023 06/20/2020, 05/23/2020 RSV Immunization or 60+ Years (1 - [...] this topic Insurance MEDICARE [employer] Care Teams Metal Handler Relationship Specialty Start Date End Date Anil Gupta MD [address] [place] [id number] PCP - General INTERNAL MEDICINE 10/17/20
== END 2024-09-12 11:09 | disposition home or self-care (01) ==
PROVIDERS: PCP Internal Medicine; Visit Provider Anesthesiology Pain Medicine
DX: M25.551 Pain in right hip (principal); M54.50 Low back pain, unspecified; T85.122A Displacement of implanted electronic neurostimulator of spinal cord electrode (lead), initial encounter; Z98.1 Arthrodesis status
CPT/HCPCS: 72070; 72100

== ENCOUNTER 2025-03-19 22:22 | Observation (INO) | payer MEDICARE, SELFPAY ==
[2025-03-19] VITALS (8 sets, daily range): BP systolic 111–127; BP diastolic 69–79; PULSE 123–133; RESP 16–128; TEMP 39.3; O2SAT 91–95
--- NOTE | ~2025-03-19 | XR_ITS ---
EXAMINATION: XR chest 1V portable DATE: 03/19/2025 23:48 INDICATION: Cough and fever TECHNIQUE: AP view of the chest was obtained. COMPARISON: Chest radiograph dated 08/18/[address] dated 03/20/2025 FINDINGS: Interval progression of a chronic coarse reticular pattern in the bilateral mid and lower lung zones most suggestive of chronic interstitial lung disease with differential including mild pulmonary edema or pneumonia. Calcified nodules in the right midlung zone consistent with old granulomatous disease. No pleural effusion or pneumothorax. Heart size is normal. Spinal stimulator lead projects of the central canal the lower thoracic spine with distal tip at the left lower T9-10. IMPRESSION: 1. Progression of coarse interstitial opacities in the bilateral mid and lower lung zones most likely related to chronic interstitial lung disease with differential including mild pulmonary edema or pneumonia. Reviewed, dictated and finalized at location A. RFORM MACHINE OPERATOR IMPRESSION: 1. Progression of coarse interstitial opacities in the bilateral mid and lower lung zones most likely related to chronic interstitial lung disease with differ ential including mild pulmonary edema or pneumonia.
--- NOTE | ~2025-03-19 | CT_ITS ---
EXAMINATION: CTA chest PE abdomen pel DATE: 03/20/2025 02:52 INDICATION: Sepsis TECHNIQUE: Computed tomography (CT) pulmonary angiogram of the chest was performed with 100 mL Omnipaque-350 intravenous contrast. Additional 3D reconstructions utilizing coronal maximum intensity projection (MIP) were performed. CT of the abdomen and pelvis was performed with intravenous contrast utilizing the same contrast bolus following a short delay. Automated exposure control and iterative reconstruction technique were employed. The dose-length product was 912.19 mGy-cm. COMPARISON: CT dated 08/19/2021 FINDINGS: Chest: No pulmonary embolism. There has been interval progression in peripheral and basilar predominant irregular septal line thickening without evident honeycombing most consistent with nonspecific interstitial pneumonia (NSIP) pattern chronic interstitial lung disease. Heart size is normal. No pericardial effusion. Thoracic aorta is normal in caliber with no dissection. Calcified subcarinal lymph nodes consistent with old granulomatous disease. No pathologically enlarged thoracic lymphadenopathy. Mild thoracic spondylosis with chronic mild anterior wedging of a few mid to lower thoracic vertebral bodies and multiple Schmorl's nodes involving many the endplates throughout the thoracic spine. Lucent hemangiomas with characteristic thickened vertical trabecular pattern at the L1 and L2 vertebral bodies, the former extending into the posterior elements. Abdomen/pelvis: Liver, gallbladder, spleen, pancreas, bilateral adrenal glands and right kidney are normal. There are 2 small regions of decreased cortical enhancement without evident volume loss at the lower pole the left kidney measuring approximately 1.8 cm and 1.3 cm which could be due to pyelonephritis, renal infarcts or solid neoplasm such as renal cell carcinoma. Bowels including the appendix are normal. Bladder is normal. Prostatomegaly measuring 4.8 x 4.3 cm. Small fat-containing left inguinal hernia. No free intraperitoneal gas or fluid. No pathologically enlarged abdominal or pelvic lymphadenopathy. Mild lumbar spondylosis with instrumented L5-S1 anterior and posterior spinal fusion with interbody fusion device and bilateral vertical barbara and pedicle screw fixation. Expansile lucent hemangioma with fat attenuation and thickened internal trabecula at S2 which extends into the left sacral ala. Spinal stimulator with partial split subcutaneous tissue at the right buttock and with leads extending into the central canal at L1-L2 and distal tips in the posterior central canal at the levels of T9 and T10. IMPRESSION: 1. Interval progression of bilateral peripheral and lower lung predominant NSIP pattern chronic interstitial lung disease. 2. 2 small regions of decreased cortical enhancement at the lower pole the left kidney concerning for pyelonephritis. Differential includes less likely pulmonary infarct or neoplasm. Correlate with urinalysis. 3. Prostatomegaly. 4. Small fat-containing left inguinal hernia. Reviewed, dictated and finalized at location A. [facility] IMPRESSION: 1. Interval progression of bilateral peripheral and lower lung predominant NSIP pattern chronic interstitial lung disease. 2. 2 small regions of decreased cortical enhancement at the lower pole the left kidney concerning for pyelonephritis. Differential includes less likely pulmon rafi infarct or neoplasm. Correlate with urinalysis. 3. Prostatomegaly. 4. Small fat-containing left inguinal hernia.
--- NOTE | 2025-03-19 22:50 | ECG_ITS ---
Test Date: 2025-03-19 22:50:48 Measurements Intervals [place] Rate: 126 P: 45 [place]: 181 QRS: -61 QRSD: 126 T: 7 QT: 280 QTc: 407 Interpretive Statements SINUS TACHYCARDIA RIGHT BUNDLE BRANCH BLOCK LEFT ANTERIOR FASCICULAR BLOCK BASELINE ARTIFACT- I, II, III, AVR, AVL, AVF, V4-V5 ABNORMAL ECG Compared to ECG 06/14/2024 11:59:18 HEART RATE HAS INCREASED Left anterior fascicular block now present Electronically Signed On 03-20-2025 09:37:18 CRANE MECHANIC by Justen Elizondo D.O.
--- OUTSIDE RECORDS SUMMARY | 2025-03-19 23:25 | XMS_ITS | Clinical Summary ---
Author Organization [facility] Address [address] [place] [address] Care Team Providers Care Arcade Technician Name Role Phone Anil Gupta MD Primary Care Provider [phone] Anil Gupta MD Unavailable [phone] Adrien Young MD Unavailable Milad Garcia MD Unavailable [phone] Doni Marino MD Unavailable Edmundo Guajardo MD Unavailable [phone] Allergies No known active allergies Medications rOPINIRole [...] total) by mouth daily before breakfast 3 Active Trelegy Ellipta 200-62.5-25 mcg inhaler Inhale 1 puff daily 4 Active ondansetron ODT (ZOFRAN-ODT) 8 mg disintegrating tablet Active tiZANidine (ZANAFLEX) 2 mg tablet 1 tablet (2 mg total) 4 Active Ventolin HFA 90 mcg/actuation inhaler Inhale 2 puffs every 6 (six) hours as needed 4 Active nystatin 100,000 unit/mL suspensionIndicati ons:Thrush Swish and swallow 5cc QID x 10 days. 200 mL 1 4 Active nystatin creamIndications:T hrush Apply to corners of mouth as needed BID x 14 days then PRN 15 g 2 4 Active nortriptyline (PAMELOR) 25 mg capsule Take 1 capsule (25 mg total) by mouth nightly 90 capsule 3 5 026 Active testosterone cypionate (DEPO-TESTOTERONE) 200 mg/mL injection INJECT 2 (TWO) MILLILITER MONTLY 5 Active benralizumab (FASENRA PEN SUBQ) Inject under the skin Active budesonide (PULMICORT) 90 mcg/actuation inhaler Inhale 1 puff 2 (two) times a day Rinse mouth with water after use. Do not swallow. 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 This could be contributing to his lung problems also. I think Dupixent would be likely very helpful. He would like to start that. Aphthous ulcer of mouth 07/15/2024 Assessment & [...] 12/02/2023 Assessment & Plan (03/05/2024 1:46 PM DICER MACHINE OPERATOR): At his request we are [...] 09/16/2023 Chronic pansinusitis 09/16/2023 Assessment & Plan (02/11/2025 11:46 AM DICER MACHINE OPERATOR): He continues to have problems with this although it seems to be overall improved. I we would like to get him started on Dupixent because of the small amount of polyp tissue that was found today. We will see if we can get that for him. Assessment & Plan (11/22/2024 8:52 PM CDT): He did have a lot of debris that I removed, more so on the right side. 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 We discussed further management of this. He really does not want to get too aggressive with this. Not really interested in seeing the infectious disease specialist just yet. He might benefit from nasal irrigations and I suggested using the NeilMed sinus rinse. It might help to add a tsp of white vinegar to each 8 oz of distilled water. That can often times help inhibit Pseudomonas and he understands that. He will give it a try. He is going to see me in about 2 months to see how things are going. Assessment & Plan (08/18/2024 11:11 AM CDT): [...] weeks. Assessment & Plan (04/05/2024 10:33 AM DICER MACHINE OPERATOR): Sinuses are open and I [...] months. Assessment & Plan (03/05/2024 1:45 PM DICER MACHINE OPERATOR): His sinuses look much better. [...] Bronchiectasis 05/04/2023 Cough 05/04/2023 Assessment & Plan (02/11/2025 11:47 AM DICER MACHINE OPERATOR): This continues and there lot of possible reasons for it. I do not really have any new ideas. Defer to pulmonology. Assessment & Plan (11/22/2024 8:52 PM CDT): I am deferring further management to his trophy assembler. He sees of the trophy assembler in about a week. Assessment & Plan (08/18/2024 11:11 AM CDT): [...] understands. Assessment & Plan (04/05/2024 10:33 AM DICER MACHINE OPERATOR): Overall improved but somewhat persistent. Could be due to his bronchiectasis. If it continues I recommended that he see a citizen participation specialist. Assessment & Plan (01/13/2024 11:08 AM CDT): He is going through some further evaluation with a trophy assembler which I think is appropriate. Could be an asthma type cough. We will talk further after the CT scan is complete. Assessment & Plan (12/02/2023 8:08 PM CDT): This seems to be worse. Has citizen participation specialist is addressing this and he has [...] does have a follow up with his trophy assembler. I talked with him about trying nortriptyline [...] pretty easily if he stops taking his [id number]-lnd-[id number] Nexium which he takes once a day. [...] 11/13/2021 Assessment & Plan (04/24/2021 3:20 PM DICER MACHINE OPERATOR): Mr. Horn has multilevel lumbar [...] (04/24/2021): Added automatically from request for surgery [id number] Assessment & Plan (07/17/2021 4:18 PM CDT): [...] Encounters Date Type Department Care Team Description 02/07/2025 9:45 AM DICER MACHINE OPERATOR Office Visit [facility] [address] [place] [id number] Edmundo Guajardo MD Chronic cough (Primary Dx); Chronic pansinusitis; Polyp of nasal cavity from Last 3 Months Surgical History Surgery [...] respiratory infection comes and goes - on manager intermediate antibiotics to prevent further mucous build up [...] oz pur e alcohol) Social Connection and Isolation Panel Answer Date Recorded In a typical week, how many times do you talk on the phone with family, friends, or neighbors? More than three times a week 10/29/2021 How often do you get togethe r with friends or relatives? Three times a week 10/29/2021 How often do you attend chur ch or amish services? 1 to 4 times [...] on file Legal Sex Male 12:56 PM DICER MACHINE OPERATOR Gender Identity Male 05/23/2021 12:08 PM DICER MACHINE OPERATOR Sexual Orientation Straight 05/23/2021 12 :08 PM DICER MACHINE OPERATOR Last Filed Vital Signs Vital Sign Reading Time Taken Comments Blood Pressure 93/64 08/25/2024 2:25 PM CDT Pulse 78 08/25/2024 2:25 PM CDT Temperature 36.2 C (97.1 F) 08/04/2024 1:45 PM CDT Respiratory Rate 17 02/07/2025 9:51 AM DICER MACHINE OPERATOR Oxygen Saturation 95% 08/25/2024 2:25 PM CDT Inhaled Oxygen Concentration - - Weight 86.2 kg (190 lb) 02/07/2025 9:51 AM DICER MACHINE OPERATOR Height 182.9 cm (6') 02/07/2025 9:51 AM DICER MACHINE OPERATOR Body Mass Index 25.77 02/07/2025 9:51 AM DICER MACHINE OPERATOR Plan of Treatment Health Maintenance Due Date Last Done Comments Colon Cancer Screening-Colonoscopy 1950 Hepatitis C Screening 1950 Hepatitis B Screening 1969 Well Visit 65+ 02/01/2016 Depression Screening 04/18/2022 04/18/2021, 04/18/19 Covid-19 Vaccine (5 - 2024-2 6 season) 2024 12/03/2023, 11/21/2020, 06/20/2020, Additional history exists Influenza Vaccine (#1) 2024 , 12/20/2021, 02/19/2021, Additional history exists Fall Risk Assessment 02/08/2025 02/09/2024 DTaP/Tdap/Td Vaccine (2 - Td or Tdap) 02/18/2026 02/19/2016 Pneumococcal vaccine 65+ Completed 020, 02/25/2020, 02/04/2019, Additional history exists Zoster Vaccine Completed 02/03/2023, 10/30/2022 Medical Devices Implanted Type Area Geophysical Laboratory Director Device Identifier Shelf Expiration Date Model / Serial / Lot [employer] Allograft Bone Putty 2.5cc 700-025 - [id number] Implanted:Qty: 1 on 10/11/2021 by Jayy Granger MD at [facility] N/A: Spine Lumbar [employer] [id number] 04/29/2024 700-025 / / [id number] [employer] Inqu Paste Mix Plus Color Artist 10cc Bone Graft Hyaluronic Acid Poly [id number] - [id number] Implanted:Qty: 1 on 10/11/2021 by Jayy Granger MD at [facility] N/A: Spine Lumbar [employer] [id number] / / Core Link [facility] L31 Mm X W10 Mm X H11 Mm 3d 12 D Curve Cage Spinal [id number] - [id number] Implanted:Qty: 1 on 10/11/2021 by Jayy Granger MD at [facility] N/A: Spine Lumbar Core Link [id number] 04/12/2023 [id number] / / [id number] Core Link [place] 6.5mm 45mm Spine Pedicle Screw Bone 5500 Series [id number] - [id number] Implanted:Qty: 4 on 10/11/2021 by Jayy Granger MD at [facility] N/A: Spine Lumbar Core Link [id number] / / Core Link [place] Screw Set 5500 Series [id number] - [id number] Implanted:Qty: 4 on 10/11/2021 by Jayy Granger MD at [facility] N/A: Spine Lumbar Core Link [id number] / / Core Link [place] 5.5mm 40mm Line Prebent Nabor Spinal Nonsterile 5500 Series [id number] - [id number] Implanted:Qty: 2 on 10/11/2021 by Jayy Granger MD at [facility] N/A: Spine Lumbar Core Link [id number] / / Additional Health Concerns Infection Onset Date Last Indicated 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 07/13/2024 Insurance MEDICARE AETNA SENIOR SUPPLEMENT AETNA SENIOR SUPPLEMENT MEDICARE AETNA SENIOR SUPPLEMENT MEDICARE T SENIOR SUPPLEMENT MEDICARE AET SENIOR SUPPLEMENT MEDICARE Advance Directives For more information, please contact: [phone] Documents on File Type Date Recorded Patient Discharge Coordinator Expl anation Power of Accounting Generalist 02/22/2024 5:42 AM * Full Code (Latest Code Status on File) Date Activated Date Inactivated Comments 10/28/2021 10:29 PM 11/06/2021 5:42 PM * Full Code Date Activated Date Inactivated Comments 10/11/2021 4:02 PM 10/12/2021 5:28 PM Care Teams Arcade Technician Relationship Specialty Start Date End Date Anil Gupta MD PCP - General Internal Medicine 04/19/21 Anil Gupta MD Internal Medicine 04/19/21 Adrien Young MD [address] [facility] [address] [place] [address] Consulting Physician Infectious Diseases 11/06/21 Milad Garcia MD [address] [facility] [address] [place] [address] Consulting Physician Orthopedic Surgery 03/02/23 Doni Marino MD [address] [facility] [address] [place] [address] Referring Physician Pulmonary Disease 02/09/24 Edmundo Guajardo MD [address] [place] [address] Consulting Physician Otolaryngology 02/22/24
--- OUTSIDE RECORDS SUMMARY | 2025-03-19 23:25 | XMS_ITS | Clinical Summary ---
Author Organization [facility] Address [address] [place] [address] Care Team Providers Care Career And Transition Teacher Name Role Phone Sukhdev Santos MD Primary Care Provider [phone] Source Comments [facility],non-owned Affiliates and Associated Physician Practices is amultiple site organization consisting of ambulatory clinics and hospital sitesin [place], [place], [place] and [place]. This disclosure is being madepursuant to the Care Everywhere program and may not contain all information available regarding this patient. Last updated 17.[facility] Allergies No known active allergies Medications * [...] on file Legal Sex Male 10:32 AM REFRIGERATION OPERATOR Gender Identity Not on file Sexual Orientation [...] 2001 ZOSTER VACCINE (1 of 2) 2001 DEPRESSION SCREENING 03/30/2024 COVID-19 VACCINE (1 - 2024-2 6 season) 2024 INFLUENZA VACCINE (#1) 2024 Respiratory Syncytial Virus (RSV) Vaccine Pt: [...] this topic Insurance MEDICARE AETNA Care Teams Career And Transition Teacher Relationship Specialty Start Date End Date Sukhdev Santos MD [address] [facility] [address] [place] [id number] PCP - General 12/15/18
--- OUTSIDE RECORDS SUMMARY | 2025-03-19 23:25 | XMS_ITS | Patient Health Record ---
Author Organization [facility] Address [address] [place] [id number] Care Team Providers Care Transmission Inspector Name Role Phone PCP, Does not have a Primary Care Provider Unava ilable Allergies No Known Allergies Reason For Referral No Information Plan Of Treatment No Information Insurance Providers Payer Name Payer Address Payer Phone Subscriber Number Group Number Insured Name Patient Relationship to Insured Coverage Start Date Coverage End Date Self Pay [address] [facility] [address] [place] [address] null, null Self - patient is the insured 1 [employer] [address] [place] [address] [id number] LIZETTE PÉREZ Self - patient is the insured 1
--- OUTSIDE RECORDS SUMMARY | 2025-03-19 23:25 | XMS_ITS | Clinical Summary ---
Author Organization [facility] Address [facility] [place] [address] Care Team Providers Care Machine Ii Coremaker Name Role Phone Anil Gupta MD Primary Care Provider [phone] Allergies No known active allergies Medications valACYclovir [...] mouth 2 (two) times daily. 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 file Not on file Not on f ile Last Filed Vital Signs Vital Sign Reading Time Taken Comments Blood Pressure 120/68 03/19/2021 9:34 AM WINDROWER OPERATOR Pulse 83 03/19/2021 9:34 AM WINDROWER OPERATOR Temperature 36.8 C (98.2 F) 03/19/2021 9:34 AM WINDROWER OPERATOR Respiratory Rate 20 03/19/2021 9:34 AM WINDROWER OPERATOR Oxygen Saturation 99% 03/19/2021 9:34 AM WINDROWER OPERATOR Inhaled Oxygen Concentration - - Weight 85 kg (187 lb 6.4 oz) 03/19/2021 9:34 AM WINDROWER OPERATOR Height 182.9 cm (6') 03/19/2021 9:34 AM WINDROWER OPERATOR Body Mass Index 25.42 03/19/2021 9:34 AM WINDROWER OPERATOR Plan of Treatment Health Maintenance Due Date Last Done Comments Colorectal Cancer Screening Colonoscopy (10 Years) 1950 Hepatitis C 1969 DTaP, Tdap and Td Vaccines ( 1 - Tdap) 1970 Zoster Vaccines (1 of 2) 2001 Annual Medicare Wellness Visit 02/01/2016 Pneumococcal Vaccine: 50+ Years (2 of 2 - PCV20 or PCV21) 02/24/2021 02/25/2020, 02/04/2019, 02/19/2016 COVID-19 Vaccine (3 - 2024-2 6 season) 2024 06/20/2020, 05/23/2020 Influenza Adult (#1) 2024 02/19/2021, 12/19/2019 RSV Immunization or 60+ Years (1 - 1-dose 75+ series) 2026 Hepatitis A Vaccines Aged Out No long er eligible based on patient's age to complete this topic Meningococcal B Vaccine Aged Out No l onger eligible based on patient's age to complete this topic Meningococcal Vaccine Aged Out No greg marquez eligible based on patient's age to complete this topic RSV Immunizations Under 20 Months Aged Out No longer eligible b ased on patient's age to complete this topic Insurance MEDICARE AETNA Care Teams Machine Ii Coremaker Relationship Specialty Start Date End Date Anil Gupta MD [address] [place] [address] PCP - General INTERNAL MEDICINE 10/17/20
--- OUTSIDE RECORDS SUMMARY | 2025-03-19 23:25 | XMS_ITS | Clinical Summary ---
Author Organization [facility] Address [address] [place] [phone] Phone Care Team Providers Care Wastewater Engineer Name Role Phone Anil Gupta MD Primary Care Provider [phone] Allergies No known active allergies Medications albuterol [...] (09/14/2021): Added automatically from request for surgery [id number] Last Assessment & Plan: Mr. Horn is [...] Comments Blood Pressure 112/70 02/24/2022 1:54 PM HISTORY DEPARTMENT CHAIR Pulse 72 02/24/2022 1:54 PM HISTORY DEPARTMENT CHAIR Temperature 35.4 C (95.7 F) 02/24/2022 1:54 PM HISTORY DEPARTMENT CHAIR Respiratory Rate - - Oxygen Saturation - - Inhaled Oxygen Concentration - - Weight 86.2 kg (190 lb) 02/24/2022 1:54 PM HISTORY DEPARTMENT CHAIR Height 182.9 cm (6') 02/24/2022 1:54 PM HISTORY DEPARTMENT CHAIR Body Mass Index 25.77 02/24/2022 1:54 PM HISTORY DEPARTMENT CHAIR Plan of Treatment Health Maintenance Due Date Last Done Comments Pneumococcal PPSV23/PCV13 65 + Years / Low and Medium Risk (2 of 3 - PCV20 or PCV21) 02/24/2021 02/25/2020 Influenza Vaccine (#1) 2024 12/20/2021, 2020 Insurance MEDICARE AETNA Care Teams Wastewater Engineer Relationship Specialty Start Date End Date Anil Gupta MD [address] [facility] [address] [facility] [address] [place] [address] PCP - General Internal Medicine 01/30/21
--- OUTSIDE RECORDS SUMMARY | 2025-03-19 23:25 | XMS_ITS | Encounter Summary ---
Author Organization [facility] Address [address] [place] [phone] Phone Care Team Providers Care End Trimmer Name Role Phone Anil Gupta MD Primary Care Provider [phone] Encounter Details Date Type Department Care Team (Late st Contact Info) Description 02/28/2021 Refill [facility] Nephrology and Hypertension [address] [facility], [address] [address] Xander Noel MD [address] [facility] [facility] [place] [address] Social History Tobacco Use Types Packs/Day Years [...] [facility] Plan of Treatment Not on file documented as of this encounter Visit Diagnoses Not on filedocumented in this encounter Care Teams End Trimmer Relationship Specialty Start Date End Date Anil Gupta MD [address] [facility] [address] [facility] [address] [place] [address] PCP - General Internal Medicine 01/30/21 documented as of this encounter
--- OUTSIDE RECORDS SUMMARY | 2025-03-19 23:25 | XMS_ITS | Clinical Summary ---
Author Organization [facility] Address [address] [place] [address] Care Team Providers Care Director [employer] Name Role Phone Unavailable Primary Care Provider Unavailabl e Social History Tobacco Use Types Packs/Day Years Used Date Smoking Tobacco: Never Assessed Sex and Gender Information Value Date Recorded Sex Assigned at Not on file Legal Sex Male 7:15 PM EDT Gender Identity Not on file Sexual Orientation Not on file Plan of Treatment Not on file Medical Devices Not on file Insurance MEDICARE
[2025-03-19 23:33] LABS: Hematocrit 45.5 % (42.0-52.0); Hemoglobin 15.4 g/dL (14.0-18.0); Immature Granulocyte Percent A 0.5 % (0-0.5); Lymphocytes Absolute Auto 0.31 K/mm3 (0.9-3.2); Mean Corpuscular HGB Conc 33.8 g/dl (32-36); Mean Corpuscular Hemoglobin 29.0 pg (26-34); Mean Corpuscular Volume 85.7 fl (80-100); Nucleated Red Blood Cells Absolute Auto 0.000 K/mm3 (0.0-0.012); Nucleated Red Blood Cells Perc 0.0 % (0.0-0.2); Platelet Count Result 275 k/mm3 (150-375); Red Blood Count 5.31 M/mm3 (4.6-6.20); White Blood Count 11.0 K/mm3 (4.5-10.0)
[2025-03-19 23:45] LABS: Add Urine Microscopic? YES; Appearance Urine Cloudy (Clear); Glucose Urine UA Negative (Negative); Leukocyte Esterase Ur 3+ LEU/UL (Negative); Nitrate Urine Positive (Negative); Non Pathogenic Casts 0-2; Specific Grav Ur 1.011 (1.001-1.035)
[2025-03-19 23:49] LABS: Magnesium 1.8 mg/dL (1.6-2.3)
[2025-03-19 23:50] LABS: Alanine Aminotransferase 30 U/L (6-50); Albumin Level 4.5 g/dL (3.5-5.1); Alkaline Phosphatase 109 U/L (38-126); Anion Gap 9 mmol/L (4-12); Aspartate Amino Transferase 41 U/L (17-59); Bilirubin,Total 1.1 mg/dL (0.2-1.3); Blood Urea Nitrogen 20 mg/dL (9-20); Calcium 9.5 mg/dL (8.4-10.2); Carbon Dioxide 26 mmol/L (22-30); Chloride 99 mmol/L (98-107); Estimated CRCL calculation 51 ml/min; Estimated Glomerular Filt Rate 57; Glucose 93 mg/dL (65-110); Potassium 4.4 mmol/L (3.4-5.0); Sodium 134 mmol/L (137-145); Total Protein 8.1 g/dL (6.3-8.2)
[2025-03-20] VITALS (23 sets, daily range): BP systolic 91–111; BP diastolic 60–84; PULSE 67–162; RESP 16–34; TEMP 36.5–39.2; O2SAT 88–97; BMI 26.2
[2025-03-20 00:01] LABS: Troponin I < 0.012 ng/mL (0.000-0.034)
[2025-03-20 00:09] LABS: Influenza A QL RT-PCR Negative (Negative); Influenza B QL RT-PCR Negative (Negative); RSV RNA, RT-PCR Negative (Negative); SARS-CoV-2 RNA PCR Negative (Negative)
[2025-03-20 00:11] LABS: Procalcitonin 0.8 ng/mL
[2025-03-20] MEDS: SODIUM CHLORIDE 0.9% IV 1,000 ML 999 ML IV CONT ×3 (00:14→01:01)
[2025-03-20] MEDS: ACETAMINOPHEN 500 MG TABLET 1000 MG PO (00:15)
--- NOTE | 2025-03-20 00:29 | ECG_ITS ---
Test Date: 2025-03-20 00:35:52 Measurements Intervals [place] Rate: 110 P: 40 MO: 188 QRS: -45 QRSD: 141 T: 6 QT: 317 QTc: 430 Interpretive Statements SINUS TACHYCARDIA LEFT AXIS DEVIATION RIGHT BUNDLE BRANCH BLOCK ABNORMAL ECG Compared to ECG 03/19/2025 22:50:48 HEART RATE HAS DECREASED Electronically Signed On 03-20-2025 06:44:42 ROVING TELLER by Justen Elizondo D.O.
[2025-03-20] MEDS: IBUPROFEN 400 MG TABLET 800 MG PO (01:00)
[2025-03-20] MEDS: cefTRIAXone 1 GM in SODIUM CHLORIDE 0.9% IV 50 ML 100 ML IVPB ×2 (01:00→21:16)
--- NOTE | 2025-03-20 02:02 | ED_ITS ---
HPI - General Adult General Chief complaint: Recheck/Abnormal Lab/Rx Stated complaint: im shaking Time Seen by Provider: 03/19/25 22:48 History of Present Illness HPI narrative: Patient is a 75-year-old gentleman presents emergency department chief complaint of chills and body aches patient reports that he started having shakes this evening reports he had chills and could not get or patient reports that no chest pain reports no shortness of breath reports that he has had urinary frequency and is concerned that he may have a urinary infection Related Data Home Medications ?Medication ?Instructions ?Recorded ?Confirmed ?Last Taken ?Type esomeprazole magnesium 20 mg 20 mg PO DAILY 12/18/22 0 08/30/24 06/20/24 History capsule,delayed release Saccharomyces boulardii 250 mg 250 mg PO BID 08/30/24 08/30/24 Unknown History capsule (Florastor) Allergies Allergy/AdvReac Type Severity Reaction Status Date / Time No Known Allergies Allergy Verified 09/27/24 10:06 Review of Systems 2 Review of Systems: A 10 system review of systems was completed on the patient and is negative except for what is stated in the HPI. Nursing and ancillary documentation was reviewed. [facility] Past Medical History Medical History Back pain Arthralgia Dysuria Eosinophilic asthma Dizziness Grade I diastolic dysfunction Fall Rib pain on right side Gluteal tendinitis of right buttock Bilateral leg numbness BMI 27.0-27.9,adult Bilateral hip pain Peripheral neuropathy Shingles Constipation Abdominal bloating Nausea Encounter for routine adult health examination without abnormal findings Dermatitis Bronchiectasis with acute exacerbation Anogenital herpesviral infection, unspecified Right wrist tendinitis Neuropathy Hypercholesterolemia C. difficile colitis Abnormal CT scan, pelvis Fever GERD (gastroesophageal reflux disease) Nausea Chronic lung disease Diverticulitis BMI 24.0-24.9, adult Follow up BMI 25.0-25.9,adult LLQ abdominal pain Hyponatremia SOB (shortness of breath) on exertion Cough Dextroscoliosis Lumbar spondylosis Viral wart on right thumb Thumb pain Angular cheilitis Elevated LDL cholesterol level Chronic back pain Colon cancer screening History of pneumonia BMI 26.0-26.9,adult Encounter for Medicare annual wellness exam Heart murmur Impacted cerumen of left ear History of elevated PSA Ruptured intervertebral disc Restless legs syndrome Encounter to establish care Herpes On prison drug therapy Exposure to heavy metals Surgical History Surgical History History of back surgery Family History Family History Father Family history of chronic obstructive pulmonary disease Mother Family history of chronic obstructive pulmonary disease Social History Social History Smoking status: Never smoker Second hand tobacco smoke exposure: No Alcohol intake: current Drinks per week: 14 Alcohol use details: 1-2 GLASSES OF RED WINE DAILY Substance use: never Substance use type: does not use Lack of Transportation: No Lack of Food: Never True Current Housing: I Have Housing Concerned About Future Housing: No Difficulty Paying Gas/Electric Bills: No Difficulty Paying for Meds: No Currently Unemployed: No Education: Bachelor's Degree Difficulty w/ Childcare or Family Care: No Living arrangements: with family Additional living arrangements comments: Gender identity (if verbalized by the patient): Male Spiritual care concerns: No Exam 2 Narrative: GENERAL: Well-appearing, well-nourished, and in no acute distress. HEAD: Normocephalic, atraumatic. EYES: PERRLA and EOMI. ENT: Nares clear, no rhinorrhea or epistaxis. Mucous membranes moist. NECK: Supple. CHEST: Clear to auscultation. No respiratory distress. HEART: Regular rate and rhythm. No murmur heard. Normal peripheral pulses. ABDOMEN: Soft, nontender, nondistended, normal active bowel sounds. EXTREMITIES: Normal range of motion. No edema. SKIN: Warm, dry, no rash. NEURO: No focal deficits. Alert and oriented x3. PSYCH: Normal mood and affect. Course Vital Signs Vital signs: Vital Signs Pulse Rate 127 H 03/19/25 22:47 Respiratory Rate 27 H 03/19/25 22:47 Blood Pressure 127/79 03/19/25 22:47 Pulse Oximetry 92 03/19/25 22:47 Oxygen Delivery Room Air 03/19/25 22:47 Temperature 37.6 C 03/20/25 02:29 Pulse Rate 74 03/20/25 05:02 Respiratory Rate 21 H 03/20/25 05:02 Blood Pressure 100/84 03/20/25 02:29 Pulse Oximetry 95 03/20/25 05:02 Oxygen Delivery Nasal Cannula 03/20/25 03:01 Oxygen Flow Rate 1 03/20/25 03:01 [facility] Differential Diagnosis Differential Diagnosis: UTI, pyelonephritis, intra-abdominal infection, pneumonia, COVID, flu, RSV, sepsis Laboratory studies were obtained on the patient showed white count 11.0 lactic acid was 1.5 urinalysis showed greater than 100 red blood cells 3+ leukocyte esterase 4+ bacteria COVID flu RSV are negative chest x-ray showed no focal infiltrate Patient received IV fluids emergency department also received Tylenol and ibuprofen every got his temperature patient heart rate did improve and the patient had a is avoid bladder scan showed 300 mL of urine in bladder due to urinary retention a [place] catheter will be placed The patient did not want to do a [place] catheter this time CTA chest with an abdomen pelvis CT was obtained that showed no obstructive stone no evidence of occult pneumonia Patient was continued on Rocephin case was discussed with the hospitalist and the patient was admitted for further care Lab Data 03/19/25 23:19 03/19/25 23:19 Labs: Lab Results 03/19/25 Range/Units 23:19 WBC 11.0 H (4.5-10.0) K/mm3 RBC 5.31 (4.6-6.20) M/mm3 Hgb 15.4 (14.0-18.0) g/dL Hct 45.5 (42.0-52.0) % MCV 85.7 (80-100) fl MCH 29.0 (26-34) pg MCHC 33.8 (32-36) g/dl RDW 12.9 (11.5-14.5) % Plt Count 275 (150-375) k/mm3 MPV 8.0 (7.4-10.4) fl Immature Gran % (Auto) 0.5 (0-0.5) % Neut % (Auto) 96.0 H (45.5-73.1) % Lymph % (Auto) 2.8 L (18.3-44.2) % [place] % (Auto) 0.6 L (2.6-8.5) % Eos % (Auto) 0.0 (0-4.4) % Baso % (Auto) 0.1 L (0.2-1.2) % Lymph # (Auto) 0.31 L (0.9-3.2) K/mm3 [place] # (Auto) 0.1 (0.1-0.6) K/mm3 Eos # (Auto) 0.0 (0-0.3) K/mm3 Baso # (Auto) 0.0 (0.0-0.1) K/mm3 Abs Immat Gran (auto) 0.05 H (0.00-0.031) K/mm3 Absolute Neuts (auto) 10.6 H (1.3-6.7) K/mm3 Absolute Nucleated RBC 0.000 (0.0-0.012) K/mm3 Nucleated RBC % 0.0 (0.0-0.2) % Sodium 134 L (137-145) mmol/L Potassium 4.4 (3.4-5.0) mmol/L Chloride 99 (98-107) mmol/L Carbon Dioxide 26 (22-30) mmol/L Anion Gap 9 (4-12) mmol/L BUN 20 (9-20) mg/dL Creatinine 1.24 (0.7-1.3) mg/dL Estim Creat Clear Calc 51 ml/min Estimated GFR 57 L (59 - ) Glucose 93 (65-110) mg/dL Lactic Acid 1.5 (0.7-2.0) mmol/L Calcium 9.5 (8.4-10.2) mg/dL Magnesium 1.8 (1.6-2.3) mg/dL Total Bilirubin 1.1 (0.2-1.3) mg/dL AST 41 (17-59) U/L ALT 30 (6-50) U/L Alkaline Phosphatase 109 (38-126) U/L Troponin I < 0.012 (0.000-0.034) ng/mL Total Protein 8.1 (6.3-8.2) g/dL Albumin 4.5 (3.5-5.1) g/dL Procalcitonin 0.8 ng/mL Urine Color Yellow (Yellow) Urine Appearance Cloudy H (Clear) Urine pH 6.0 (5.0-9.0) Ur Specific [place] 1.011 (1.001-1.035) Urine Protein Trace (Negative) mg/dL Urine Glucose (UA) Negative (Negative) mg/dL Urine Ketones Negative (Negative) mg/dL Ur Blood (Man) 3+ H (Negative) Urine Nitrate Positive H (Negative) Urine Bilirubin Negative (Negative) Urine Urobilinogen 0.2 (<2.0) mg/dL Leukocyte Esterase Rfl 3+ H (Negative) EMILY/UL Urine RBC >100 H (0-2) /hpf Urine WBC >100 H (0-3) /hpf Ur Squamous Epith Cells None seen (Few) /hpf Urine Bacteria 4+ H /hpf Urine Casts 0-2 Influenza A (RT-PCR) Negative (Negative) Influenza B (RT-PCR) Negative (Negative) RSV (RT-PCR) Negative (Negative) SARS-CoV-2 RNA (RT-PCR) Negative (Negative) Discharge Plan Discharge Clinical Impression: Acute UTI, Sepsis Patient Disposition: Still a Patient Condition: Stable Patient Language: Lao Prescriptions: No Action esomeprazole magnesium 20 mg capsule,delayed release(DR/EC) 20 mg PO DAILY Saccharomyces boulardii [Florastor] 250 mg capsule 250 mg PO BID fluticasone propionate 50 mcg/actuation spray,suspension See Rx Instructions .ROUTE .COMPLEX Qty: 96 1RF Dose Instruction: USE 2 SPRAYS IN EACH NOSTRIL TWICE DAILY Rx Instructions: USE 2 SPRAYS IN EACH NOSTRIL TWICE DAILY ipratropium bromide 42 mcg (0.06 %) spray,non-aerosol See Rx Instructions .ROUTE .COMPLEX Qty: 15 3RF Dose Instruction: USE 2 SPRAYS IN EACH NOSTRIL 4 TIMES DAILY Rx Instructions: USE 2 SPRAYS IN EACH NOSTRIL 4 TIMES DAILY ondansetron 8 mg tablet,disintegrating 8 mg PO QID PRN (Reason: nausea and vomiting) Qty: 30 2RF albuterol sulfate 90 mcg/actuation HFA aerosol inhaler 2 inh inhalation Q4H PRN (Reason: shortness of breath or wheezing) Qty: 8.5 0RF nortriptyline 25 mg capsule 25 mg PO HS Qty: 90 1RF sulfamethoxazole-trimethoprim [Bactrim DS] 800-160 mg tablet 1 tablet PO Q12H Qty: 20 0RF prochlorperazine maleate [Compazine] 10 mg tablet 10 mg PO Q6H PRN (Reason: seasickness) Qty: 20 0RF ropinirole 2 mg tablet See Rx Instructions .ROUTE .COMPLEX Qty: 90 3RF Dose Instruction: TAKE 1 TABLET DAILY Rx Instructions: TAKE 1 TABLET DAILY ciprofloxacin HCl 500 mg tablet 500 mg PO BID Qty: 20 0RF valacyclovir 500 mg tablet 500 mg PO DAILY 30 Days Qty: 30 2RF Follow-up/Referrals: Anil Gupta MD [Primary Care Provider, Internal Medicine] Time of Disposition: 05:55
--- NOTE | 2025-03-20 07:19 | WPCEDHO ---
ED Hand Off Checklist All vitals saved:yes IV Site documented:yes All med administrations documented:yes Triage Note Triage Note patient took blood pressure at 03/19/25 22:47 home with a reading of 208/141. patient states he does not have chest pain or SOB but developed a headache earlier today prior to checking blood pressure. Allergies No Known Allergies Allergy (Verified 09/27/24 10:06) Family History (Last Reviewed 03/20/25 @ 02:02 by Masoud Keene MD) Father Family history of chronic obstructive pulmonary disease Mother Family history of chronic obstructive pulmonary disease Administered/Completed Medications Discontinued Medications Acetaminophen (Acetaminophen 500 Mg Tablet) 1,000 mg PO ONCE STA Stop: 03/19/25 22:56 Last Admin: 03/20/25 00:15 Dose: 1,000 mg Documented By: ROGERIO Sodium Chloride (Normal Saline Iv) 1,000 mls @ 999 mls/hr IV CONT .Q1H1M STA Stop: 03/19/25 23:55 Last Infusion: 03/20/25 01:01 Dose: Infused Documented By: Admin: 03/20/25 00:14 Dose: 999 mls/hr Documented By: ROGERIO Sodium Chloride (Normal Saline Iv) 1,000 mls @ 999 mls/hr IV CONT .Q1H1M STA Stop: 03/19/25 23:56 Last Infusion: 03/20/25 01:10 Dose: Infused Documented By: Admin: 03/20/25 00:15 Dose: 999 mls/hr Documented By: RGOERIO Sodium Chloride (Normal Saline Iv) 1,000 mls @ 999 mls/hr IV CONT .Q1H1M STA Stop: 03/20/25 01:31 Last Infusion: 03/20/25 01:59 Dose: Infused Documented By: Admin: 03/20/25 01:01 Dose: 999 mls/hr Documented By: ROGERIO Ceftriaxone Sodium 1 gm/ (Sodium Chloride) 50 mls @ 100 mls/hr IVPB ONCE STA Stop: 03/20/25 01:00 Last Infusion: 03/20/25 01:20 Dose: Infused Documented By: Admin: 03/20/25 01:00 Dose: 100 mls/hr Documented By: ROGERIO Ibuprofen (Ibuprofen 400 Mg Tablet) 800 mg PO ONCE STA Stop: 03/20/25 00:32 Last Admin: 03/20/25 01:00 Dose: 800 mg Documented By: ROGERIO Interventions/Assessments General Assessment Start: 03/19/25 22:22 Freq: Status: Active Protocol: Document 03/19/25 22:47 ROGERIO (Rec: 03/19/25 22:52 ROGERIO [id number]) GA Neurological Assessment Neurological Yes Assessment WNL Level of Alert,Awake Consciousness Arousable to Verbal Orientation Oriented to Person,Oriented to Place,Oriented to Time Behavior Appropriate Memory Description Intact Ability to Maintain Normal Balance Facial Symmetry Symmetrical Speech Pattern Clear GA HEENT Assessment HEENT Assessment WNL Yes Head Symptoms Headache Neck Symptoms None Neck Movement No Limitations Mouth Symptoms/ None/Normal Appearance Lip Description Normal for Patient GA Cardiovascular Assessment Cardiovascular Yes Assessment WNL GA Respiratory Assessment Symptoms None Respiratory Rate (12 27 H -20 breaths/min) Effort Normal Cough Frequency Continuous Oxygen Delivery Room Air Method Pulse Oximetry (90- 92 100 %) GA Genitourinary Assessment Genitourinary WNL Parameters GA Reproductive Assessment Reproductive Yes Assessment WNL GA Psychosocial Assessment Psychosocial Yes Assessment WNL IV / Saline Lock, Insert Start: 03/19/25 22:22 Freq: Status: Active Protocol: Document 03/20/25 00:14 ROGERIO (Rec: 03/20/25 00:15 ROGERIO [id number]) IV Assessment Peripheral Access Left Forearm IV Catheter Access Initiated IV Insertion Date 03/19/25 IV Insertion Time 23:30 Catheter Gauge 18 IV Insertion 1 Attempts IV Site Assessment WNL IV Care and WNL Maintenance Peripheral Access Left Antecubital IV Catheter Access Initiated IV Insertion Date 03/19/25 IV Insertion Time 23:30 Catheter Gauge 18 IV Insertion 1 Attempts IV Site Assessment WNL IV Care and WNL Maintenance PA: Cardiovascular Assessment Start: 03/19/25 22:47 Freq: Status: Active Protocol: Document 03/19/25 22:47 ROGERIO (Rec: 03/19/25 22:52 ROGERIO [id number]) Cardiovascular Assessment Skin Description Normal Color Chest Pain Assessment Chest Pain Intensity 0 Last Vital Signs Temperature 98.2 F 03/20/25 07:15 Pulse Rate 68 03/20/25 07:15 Respiratory Rate 20 03/20/25 07:15 Pulse Oximetry 96 03/20/25 07:15 Blood Pressure 91/64 L 03/20/25 07:18 Blood Pressure Mean 73 03/20/25 07:18 Blood Pressure Position Supine 03/20/25 07:18 Oxygen Delivery Nasal Cannula 03/20/25 07:14 Oxygen Flow Rate 2 03/20/25 07:14 Weight 84.1 kg 03/19/25 22:47 Last Result - Abnormals Only WBC 11.0 K/mm3 (4.5-10.0) H 03/19/25 23:19 Neut % (Auto) 96.0 % (45.5-73.1) H 03/19/25 23:19 Lymph % (Auto) 2.8 % (18.3-44.2) L 03/19/25 23:19 [place] % (Auto) 0.6 % (2.6-8.5) L 03/19/25 23:19 Baso % (Auto) 0.1 % (0.2-1.2) L 03/19/25 23:19 Lymph # (Auto) 0.31 K/mm3 (0.9-3.2) L 03/19/25 23:19 Abs Immat Gran (auto) 0.05 K/mm3 (0.00-0.031) H 03/19/25 23:19 Absolute Neuts (auto) 10.6 K/mm3 (1.3-6.7) H 03/19/25 23:19 Sodium 134 mmol/L (137-145) L 03/19/25 23:19 Estimated GFR 57 (59-) L 03/19/25 23:19 Urine Appearance Cloudy (Clear) H 03/19/25 23:19 Ur Blood (Man) 3+ (Negative) H 03/19/25 23:19 Urine Nitrate Positive (Negative) H 03/19/25 23:19 Leukocyte Esterase Rfl 3+ EMILY/UL (Negative) H 03/19/25 23:19 Urine RBC >100 /hpf (0-2) H 03/19/25 23:19 Urine WBC >100 /hpf (0-3) H 03/19/25 23:19 Urine Bacteria 4+ /hpf H 03/19/25 23:19 Most Recent Suicide Severity Rating Suicide Severity Rating NO RISK INDICATED 03/19/25 22:47
[2025-03-20] MEDS: ENOXAPARIN 40 MG/0.4 ML SYRINGE SUB-Q (08:32)
--- NOTE | 2025-03-20 10:14 | PM.IMHP2 ---
H&P: HPI History of Present Illness Date/Time: 03/20/25 10:14 Chief Complaint: Fever and chills Narrative: 75 years old male was admitted to the emergency room with the complaints of having fever chills and burning urination going on for the last few days. Patient denies any shortness of breath or chest pain. In the ER patient was found to have UTI. Cultures were done, IV antibiotics and IV fluids were given. Patient was transferred to floor for further evaluation treatment. At present time patient is resting comfortably in bed. Patient burning during urination is also slightly better. Patient is not having any shortness of breath or chest pain. Review of Systems Review of Systems: All systems reviewed & are unremarkable except as noted in HPI and below (the history and physical examination.) [facility] Past Medical History Medical History Back pain Arthralgia Dysuria Eosinophilic asthma Dizziness Grade I diastolic dysfunction Fall Rib pain on right side Gluteal tendinitis of right buttock Bilateral leg numbness BMI 27.0-27.9,adult Bilateral hip pain Peripheral neuropathy Shingles Constipation Abdominal bloating Nausea Encounter for routine adult health examination without abnormal findings Dermatitis Bronchiectasis with acute exacerbation Anogenital herpesviral infection, unspecified Right wrist tendinitis Neuropathy Hypercholesterolemia C. difficile colitis Abnormal CT scan, pelvis Fever GERD (gastroesophageal reflux disease) Nausea Chronic lung disease Diverticulitis BMI 24.0-24.9, adult Follow up BMI 25.0-25.9,adult LLQ abdominal pain Hyponatremia SOB (shortness of breath) on exertion Cough Dextroscoliosis Lumbar spondylosis Viral wart on right thumb Thumb pain Angular cheilitis Elevated LDL cholesterol level Chronic back pain Colon cancer screening History of pneumonia BMI 26.0-26.9,adult Encounter for Medicare annual wellness exam Heart murmur Impacted cerumen of left ear History of elevated PSA Ruptured intervertebral disc Restless legs syndrome Encounter to establish care Herpes On residential drug therapy Exposure to heavy metals Surgical History Surgical History History of back surgery Family History Family History Father Family history of chronic obstructive pulmonary disease Mother Family history of chronic obstructive pulmonary disease Social History Social History Smoking status: Never smoker Second hand tobacco smoke exposure: No Alcohol intake: current Drinks per week: 14 Alcohol use details: 1-2 GLASSES OF RED WINE DAILY Substance use: never Substance use type: does not use Lack of Transportation: No Lack of Food: Never True Current Housing: I Have Housing Concerned About Future Housing: No Difficulty Paying Gas/Electric Bills: No Difficulty Paying for Meds: No Currently Unemployed: No Education: Bachelor's Degree Difficulty w/ Childcare or Family Care: No Living arrangements: with family Additional living arrangements comments: Gender identity (if verbalized by the patient): Male Spiritual care concerns: No Meds Home Medications and Allergies Home Medications ?Medication ?Instructions ?Recorded ?Confirmed ?Type esomeprazole magnesium 20 mg 20 mg PO DAILY 12/18/22 03/20/25 History capsule,delayed release fluticasone propionate 50 See Rx Instructions .Route 05/25/23 03/20/25 Rx mcg/actuation nasal .COMPLEX #96 grams spray,suspension ipratropium bromide 42 mcg (0.06 See Rx Instructions .Route 07/14/23 03/20/25 Rx %) nasal spray .COMPLEX #15 mL ondansetron 8 mg disintegrating 8 mg PO QID PRN nausea and 09/29/23 03/20/25 Rx tablet vomiting #30 tabs albuterol sulfate 90 mcg/actuation 2 inh inhalation Q4H PRN shortness 11/22/23 03/20/25 Rx aerosol inhaler of breath or wheezing #8.5 grams nortriptyline 25 mg capsule 25 mg PO HS #90 caps 08/23/24 03/20/25 Rx azithromycin 250 mg tablet 250 mg PO 3XW 03/20/25 03/20/25 History ropinirole 2 mg tablet 2 mg PO TID 03/20/25 03/20/25 History valacyclovir 500 mg tablet 500 mg PO 3XW 03/20/25 03/20/25 History Allergies Allergy/AdvReac Type Severity Reaction Status Date / Time No Known Allergies Allergy Verified 03/20/25 07:50 Vital Signs Vital Signs - 24 hr 03/19/25 22:47 03/19/25 22:47 03/19/25 22:49 Temperature Pulse Rate 127 H 133 H Respiratory Rate 27 H 128 H 23 H Blood Pressure 127/79 Pulse Oximetry 92 95 93 Oxygen Delivery Room Air Oxygen Flow Rate 03/19/25 22:53 03/19/25 23:00 03/19/25 23:01 Temperature 39.3 C H Pulse Rate 123 H 127 H Respiratory Rate 26 H 28 H Blood Pressure 111/69 Pulse Oximetry 91 91 Oxygen Delivery Oxygen Flow Rate 03/19/25 23:15 03/19/25 23:34 03/19/25 23:36 Temperature Pulse Rate 133 H 123 H Respiratory Rate 26 H 16 Blood Pressure 113/76 Pulse Oximetry 93 93 91 Oxygen Delivery Oxygen Flow Rate 03/20/25 00:01 03/20/25 00:02 03/20/25 00:16 Temperature Pulse Rate 119 H 118 H 117 H Respiratory Rate 30 H 33 H 16 Blood Pressure 109/73 Pulse Oximetry 90 89 L 93 Oxygen Delivery Oxygen Flow Rate 03/20/25 00:30 03/20/25 00:33 03/20/25 02:29 Temperature 39.2 C H 37.6 C Pulse Rate 121 H 162 H 101 H Respiratory Rate 23 H 34 H 18 Blood Pressure 109/73 100/84 Pulse Oximetry 92 93 92 Oxygen Delivery Oxygen Flow Rate 03/20/25 03:00 03/20/25 03:01 03/20/25 03:10 Temperature Pulse Rate 97 Respiratory Rate 23 H Blood Pressure Pulse Oximetry 88 L 96 92 Oxygen Delivery Room Air Nasal Cannula Oxygen Flow Rate 1 03/20/25 03:48 03/20/25 04:13 03/20/25 05:02 Temperature Pulse Rate 91 85 74 Respiratory Rate 24 H 23 H 21 H Blood Pressure Pulse Oximetry 94 94 95 Oxygen Delivery Oxygen Flow Rate 03/20/25 07:14 03/20/25 07:15 03/20/25 07:18 Temperature 36.8 C Pulse Rate 68 Respiratory Rate 20 Blood Pressure 91/64 L Pulse Oximetry 97 96 Oxygen Delivery Nasal Cannula Oxygen Flow Rate 2 03/20/25 07:23 03/20/25 08:26 Temperature 36.5 C Pulse Rate 67 Respiratory Rate 16 Blood Pressure 92/66 L Pulse Oximetry 95 95 Oxygen Delivery Room Air Oxygen Flow Rate Exam Narrative: GENERAL: Well-appearing, well-nourished, and in no acute distress. HEAD: Normocephalic, atraumatic. EYES: PERRLA and EOMI. ENT: Nares clear, no rhinorrhea or epistaxis. Mucous membranes moist. NECK: Supple. CHEST: Clear to auscultation. No respiratory distress. HEART: Regular rate and rhythm. No murmur heard. Normal peripheral pulses. ABDOMEN: Soft, nontender, nondistended, normal active bowel sounds. EXTREMITIES: Normal range of motion. No edema. SKIN: Warm, dry, no rash. NEURO: No focal deficits. Alert and oriented x3. PSYCH: Normal mood and affect. Results Labs Labs: Short CBC 03/19/25 Range/Units 23:19 WBC 11.0 H (4.5-10.0) K/mm3 Hgb 15.4 (14.0-18.0) g/dL Hct 45.5 (42.0-52.0) % Plt Count 275 (150-375) k/mm3 BMP 03/19/25 23:19 Sodium 134 L Potassium 4.4 Chloride 99 Carbon Dioxide 26 BUN 20 Creatinine 1.24 Glucose 93 Calcium 9.5 Cardiac Enzymes 03/19/25 Range/Units 23:19 Troponin I < 0.012 (0.000-0.034) ng/mL Liver Function 03/19/25 Range/Units 23:19 Total Bilirubin 1.1 (0.2-1.3) mg/dL AST 41 (17-59) U/L ALT 30 (6-50) U/L Alkaline Phosphatase 109 (38-126) U/L Albumin 4.5 (3.5-5.1) g/dL Urine 03/19/25 Range/Units 23:19 Urine Color Yellow (Yellow) Urine Appearance Cloudy H (Clear) Urine pH 6.0 (5.0-9.0) Ur Specific [place] 1.011 (1.001-1.035) Urine Protein Trace (Negative) mg/dL Urine Glucose (UA) Negative (Negative) mg/dL Assessment and Plan Assessment and plan (1) Urinary tract infection: Code(s): N39.0 - Urinary tract infection, site not specified Status: Acute Assessment and Plan: Plan is treatment patient for observation. IV fluids and IV antibiotics. Urine culture pending. Continue home medication Plan Patient will be admitted for 23 hour observation. Patient is full code. DVT prophylaxis Lovenox.
[2025-03-20] MEDS: AZITHROMYCIN 250 MG TABLET 500 MG PO (10:43)
[2025-03-20] MEDS: FLUTICASONE PROPIONATE 0.05% NA SPR 16 GM BTL (*BKC) 2 SPRAY NASAL ×2 (10:43→23:43)
[2025-03-20] MEDS: ACETAMINOPHEN 325 MG TABLET 650 MG PO (21:13)
[2025-03-20] MEDS: NORTRIPTYLINE HCL 25 MG CAPSULE PO (21:13)
[2025-03-21] VITALS: PULSE 71
[2025-03-21 04:00] VITALS: PULSE 62
[2025-03-21 05:39] LABS: Hematocrit 38.1 % (42.0-52.0); Hemoglobin 12.1 g/dL (14.0-18.0); Mean Corpuscular HGB Conc 31.8 g/dl (32-36); Mean Corpuscular Hemoglobin 29.0 pg (26-34); Mean Corpuscular Volume 91.4 fl (80-100); Platelet Count Result 177 k/mm3 (150-375); Red Blood Count 4.17 M/mm3 (4.6-6.20); White Blood Count 6.9 K/mm3 (4.5-10.0)
[2025-03-21 05:58] LABS: Alanine Aminotransferase 22 U/L (6-50); Albumin Level 3.2 g/dL (3.5-5.1); Alkaline Phosphatase 75 U/L (38-126); Anion Gap 3 mmol/L (4-12); Aspartate Amino Transferase 30 U/L (17-59); Bilirubin,Total 0.8 mg/dL (0.2-1.3); Blood Urea Nitrogen 15 mg/dL (9-20); Calcium 8.3 mg/dL (8.4-10.2); Carbon Dioxide 26 mmol/L (22-30); Chloride 103 mmol/L (98-107); Estimated CRCL calculation 61 ml/min; Estimated Glomerular Filt Rate > 60; Glucose 98 mg/dL (65-110); Potassium 4.3 mmol/L (3.4-5.0); Sodium 132 mmol/L (137-145); Total Protein 6.1 g/dL (6.3-8.2)
[2025-03-21 06:00] VITALS: BP 110/64; PULSE 60; RESP 16; TEMP 37.1; O2SAT 96
[2025-03-21 08:00] VITALS: PULSE 71
[2025-03-21] MEDS: PANTOPRAZOLE 40 MG TABLET PO (08:24)
[2025-03-21] MEDS: FLUTICASONE PROPIONATE 0.05% NA SPR 16 GM BTL (*BKC) 2 SPRAY NASAL (08:24)
[2025-03-21] MEDS: ACETAMINOPHEN 325 MG TABLET 650 MG PO (08:27)
--- NOTE | 2025-03-21 09:23 | P.DS_ITS ---
DS: Admitting Diagnosis Discharge Date 03/21/2025 Admitting Diagnosis UTI DS: Discharge Diagnosis Discharge Diagnosis (1) Urinary tract infection: Code(s): N39.0 - Urinary tract infection, site not specified Status: Acute Assessment and Plan: Plan is treatment patient for observation. IV fluids and IV antibiotics. Urine culture pending. Continue home medication Plan Patient will be admitted for 23 hour observation. Patient is full code. DVT prophylaxis Lovenox. DS: Summary Hospital Course Reason for hospitalization: UTI Hospital Course: 75 years old male was admitted complained been urination, patient was found to have intact infection. Patient was given IV antibiotics and cultures were done. Patient is feeling much better today and wants to go home today. Patient will be switched to p.o. antibiotics. Patient advised to follow up with Urology pulmonology and primary care next week. Cultures will be followed as an outpatient. Status at Discharge Cognitive/behavioral status at discharge: Stable Time Spent with Patient Time attestation: Total time spent providing and/or coordinating discharge services: 30 minutes Exam Narrative: GENERAL: Well-appearing, well-nourished, and in no acute distress. HEAD: Normocephalic, atraumatic. EYES: PERRLA and EOMI. ENT: Nares clear, no rhinorrhea or epistaxis. Mucous membranes moist. NECK: Supple. CHEST: Clear to auscultation. No respiratory distress. HEART: Regular rate and rhythm. No murmur heard. Normal peripheral pulses. ABDOMEN: Soft, nontender, nondistended, normal active bowel sounds. EXTREMITIES: Normal range of motion. No edema. SKIN: Warm, dry, no rash. NEURO: No focal deficits. Alert and oriented x3. PSYCH: Normal mood and affect. DS: Data Data Completed and Pending Labs on day of discharge: Labs from last 24 hours 03/21/25 05:20 WBC 6.9 RBC 4.17 L Hgb 12.1 L D Hct 38.1 L MCV 91.4 D MCH 29.0 MCHC 31.8 L RDW 13.2 Plt Count 177 MPV 8.2 Sodium 132 L Potassium 4.3 Chloride 103 Carbon Dioxide 26 Anion Gap 3 L BUN 15 D Creatinine 1.03 Estim Creat Clear Calc 61 Estimated GFR > 60 Glucose 98 Calcium 8.3 L Total Bilirubin 0.8 AST 30 ALT 22 Alkaline Phosphatase 75 Total Protein 6.1 L Albumin 3.2 L Discharge Plan Discharge Attending physician on discharge: Doug Ortega Discharging Clinician: Doug Ortega Patient Disposition: Home Activity: as tolerated Diet: as tolerated Patient Instructions: Antibiotic Form Patient Language: Sudanese Stand Alone Forms: General Discharge Information Follow-up/Referrals: Anil Gupta MD [Primary Care Provider, Internal Medicine] Royal Gant MD [Physician, Urology] Referral Note: abnormal ct exam Milad Ham MD [Physician, Pulmonology] Referral Note: abonrmal chest xray Discharge Medications: New sulfamethoxazole-trimethoprim [Bactrim] 400-80 mg tablet 1 tablet PO BID Qty: 14 0RF Continued esomeprazole magnesium 20 mg capsule,delayed release(DR/EC) 20 mg PO DAILY azithromycin 250 mg tablet 250 mg PO 3XW Patient Comments: takes thu valacyclovir 500 mg tablet 500 mg PO 3XW Patient Comments: takes thu ropinirole 2 mg tablet 2 mg PO TID Patient Comments: 1200 1800 2200 takes at these times Rx Instructions: TAKE 1 TABLET DAILY fluticasone propionate 50 mcg/actuation spray,suspension See Rx Instructions .ROUTE .COMPLEX Qty: 96 1RF Dose Instruction: USE 2 SPRAYS IN EACH NOSTRIL TWICE DAILY Rx Instructions: USE 2 SPRAYS IN EACH NOSTRIL TWICE DAILY ipratropium bromide 42 mcg (0.06 %) spray,non-aerosol See Rx Instructions .ROUTE .COMPLEX Qty: 15 3RF Dose Instruction: USE 2 SPRAYS IN EACH NOSTRIL 4 TIMES DAILY Rx Instructions: USE 2 SPRAYS IN EACH NOSTRIL 4 TIMES DAILY ondansetron 8 mg tablet,disintegrating 8 mg PO QID PRN (Reason: nausea and vomiting) Qty: 30 2RF albuterol sulfate 90 mcg/actuation HFA aerosol inhaler 2 inh inhalation Q4H PRN (Reason: shortness of breath or wheezing) Qty: 8.5 0RF nortriptyline 25 mg capsule 25 mg PO HS Qty: 90 1RF Date of admission: 03/20/25 05:56 Primary Care Provider: Anil Gupta Admitting Provider: Ana Steward Attending physician on admission: Ana Steward Condition: Stable
== END 2025-03-21 11:50 | disposition home or self-care (01) ==
LOC: ANHED 03-20 05:57 → ANH3MEDSUR 03-20 07:20
PROVIDERS: Admitting Provider Internal Medicine; Emergency Provider Emergency Medicine; PCP Internal Medicine; Visit Provider Internal Medicine
DX: N39.0 Urinary tract infection, site not specified (principal); J82.83 Eosinophilic asthma; G25.81 Restless legs syndrome; K21.9 Gastro-esophageal reflux disease without esophagitis; M54.9 Dorsalgia, unspecified; M47.896 Other spondylosis, lumbar region; J70.9 Respiratory conditions due to unspecified external agent; G62.9 Polyneuropathy, unspecified; Z79.899 Other long term (current) drug therapy; Z79.2 Long term (current) use of antibiotics; Z79.51 Long term (current) use of inhaled steroids; Z20.822 Contact with and (suspected) exposure to COVID-19; B96.20 Unspecified Escherichia coli [E. coli] as the cause of diseases classified elsewhere
CPT/HCPCS: 36415; 71045; 71275; 74177; 80053; 81001; 83605; 83735; 84145; 84484; 85025; 85027; 87040; 87077; 87086; 87186; 87637; 93005; 96365; 96372; 99285; A9270; G0378; J0696; J1650; J7030; Q9967